=== PATIENT | female | born 1960 | race Caucasian/White ===

== ENCOUNTER 2021-01-06 15:46 | Outpatient (RCR) | payer OTHER, SELFPAY ==
[2021-01-06] MEDS: COVID-19 VACC, MRNA(PFIZER)/PF 30 MCG/0.3 ML SYRINGE IM (10:31)
[2021-01-27] MEDS: COVID-19 VACC, MRNA(PFIZER)/PF 30 MCG/0.3 ML SYRINGE IM (10:30)
== END 2021-03-31 23:59 ==
LOC: IMMUN 15:46
PROVIDERS: PCP Family Medicine; Visit Provider Family Medicine
DX: Z23 Encounter for immunization (principal)
CPT/HCPCS: 0001A; 0002A; 91300

== ENCOUNTER → 2024-08-02 | Outpatient (CLI) | payer MEDICARE, SELFPAY ==
--- NOTE | 2024-08-02 08:04 | MRI_ITS ---
STUDY: MRI BRAIN WITH AND WITHOUT CONTRAST (ATTENTION INTERNAL AUDITORY CANALS - I.A.C.''s) REASON FOR EXAM: Female, 64 years old. HEARING LOSS IAC TECHNIQUE: Standardized multiplanar fat and water weighted pulse sequences were obtained. ml of 15cc clariscan contrast material was administered intravenously for the contrast portion of the examination. COMPARISON: None. FINDINGS: Internal auditory canal findings: Normal bilateral temporal bones. Normal bilateral internal auditory canals. There is no demonstrated intracanalicular or cisternal vestibular schwannoma (acoustic neuroma). There is no enhancement of the bilateral VIIth or VIIIth cranial nerves. Normal bilateral cochlea, vestibules and semicircular canals. No demonstrated perilymphatic fistula. No mastoid air cell opacification is present. No cerebellar pontine angle mass or cyst is seen. There is no demonstrated lesions of the cavernous sinus. No nodularity or abnormal enhancement is seen in the 7th or 8th cranial nerves within IACs. No demonstrated Mondini''s malformation. BRAIN FINDINGS: Normal size of the ventricles and extra-axial spaces for the patient''s age. Normal white matter tracts of the supratentorial brain. Normal T2* images of the brain without demonstrated susceptibility artifact. There is no demonstrated hemosiderin stain. There is no evidence for recent intracranial ischemia or other cause of cytotoxic edema on diffusion weighted imaging (DWI). There are no demyelinating plagues of the supratentorial brain, brainstem or cerebellum. There are no findings suspicious for multiple sclerosis (MS). No hydrocephalus or midline shift is present. There are no visualized ring-enhancing lesions of the brain parenchyma or abnormal thickening or enhancement of the meninges or dura. Normal bilateral basal ganglia. Normal thalami. Normal flow voids within the major intracranial circulation suggesting patency by spin echo criteria. Normal venous enhancement. There is no enhancing intra-axial or extra-axial abnormality. There is no extra-axial fluid accumulation. Normal sella turcica, pituitary gland, infundibular stalk, optic chiasm and hypothalamus. Normal tectal plate and pineal gland. Normal midbrain, becka and medulla. Normal cerebellum. Normal basal cisterns. No demonstrated orbital abnormality, within the constraints of a routine brain study. Normal visualized paranasal sinuses. Normal calvarium and skull base. Normal visualized soft tissue structures. Normal visualized upper cervical spine. MRI/Brain W/WO Contrast IMPRESSION: 1. Normal unenhanced and enhanced MRI of the bilateral internal auditory canals (I.A.C''s). 2. Normal enhanced MRI of the brain. Electronically Signed: Benjy Cornell MD at 9:33 EDT ,
[2024-08-02 08:30] LABS: CREATININE FINGERSTICK 1.2 mg/dL (0.55-1.02)
== END | disposition home or self-care (01) ==
PROVIDERS: PCP Family Medicine; Referring Provider Otolaryngology; Visit Provider Otolaryngology
DX: H90.3 Sensorineural hearing loss, bilateral (principal)
CPT/HCPCS: 70553; A9575

== ENCOUNTER 2024-10-09 15:12 | Inpatient (IN) | payer MEDICARE, SELFPAY ==
[2024-10-09] VITALS (20 sets, daily range): BP systolic 118–143; BP diastolic 61–115; PULSE 64–78; RESP 13–22; TEMP 36.6–36.7; O2SAT 77–100; BMI 26.9; BMI 26.2
[2024-10-09] MEDS: TICAGRELOR 90 MG TABLET 180 MG PO (15:13)
--- NOTE | 2024-10-09 15:14 | EKG12_ITS ---
Test Reason : STEMI Blood Pressure : */* mmHG Vent. Rate : 70 BPM Atrial Rate : 70 BPM P-R Int : 156 ms QRS Dur : 60 ms QT Int : 370 ms P-R-T Axes : 38 55 34 degrees QTcB Int : 399 ms Critical Test Result: STEMI Sinus rhythm with occasional Premature ventricular complexes ST elevation consider anterolateral injury or acute infarct ACUTE MS / STEMI Abnormal ECG Confirmed by MILEY WADSWORTH, RUTH ANN ([id number]), editor index LISETTE PINEDA ([id number]) on 10/11/2024 10:46:27 AM Referred By: Adan Galindo Confirmed By: RUTH ANN TRENT MD
[2024-10-09] MEDS: Heparin Injection (Vial) 5,000 UNIT/ML VIAL 5000 UNIT IV (15:15)
--- NOTE | 2024-10-09 15:15 | EDS_ITS ---
HPI History of Present Illness Chief Complaint: Chest Pain Detail of Chief Complaint: Initially indigestion followed by chest pain without radiation Informant: patient Onset/Context/Timing Onset: Today and Hours Activity at onset: sudden and activity on onset Timing: Continuous Quality: Positive for Pressure Location: Substernal Current Severity: Moderate Maximum Severity: Severe Worsened By: Exertion Relieved By: Nothing Associated Symptoms: Positive for Nausea, Vomiting and Diaphoresis; Negative for Cough, Fever, Lightheadedness, Acid Reflux or Palpitations Narrative Narrative: Patient is a 64-year-old woman. She is on no medication. She has no past medical history. She has allergy to penicillin and sulfa. She states she was shopping. She developed indigestion followed by chest tightness pressure with nausea, vomiting, diaphoresis and she is short of breath. Prehospital EKG revealed hyperacute T waves consistent with acute CT. Prior Similar Symptoms: No CVD Risk Factors: Negative for Hypertension, Diabetes, Hypercholesterolemia, Family History 1' </=55 or Smoking PE Risk Factors: Negative for Recent Travel/Surgery, Recent Immobilization, Prior DVT or PE, Cancer or OCP + Smoking + >/=35 TAD Risk Factors: Negative for Marfan's Syndrome, Hypertension or Family History PFSH PFSH Medical History no medical history no medical history Allergy/AdvReac Type Severity Reaction Status Date / Time Penicillins Allergy Hives Verified 10/09/24 15:17 Sulfa (Sulfonamide AdvReac Diarrhea Verified 10/09/24 15:17 Antibiotics) Family History no significant family his Surgical History no surgical history no surgical history Social History Smoking Status: Current some day smoker tobacco type: cigarettes ROS ROS ED Constitutional Constitutional ED: Denies chills, fever(s), subjective or sweats Eyes Eyes: Reports none Cardiovascular Cardiovascular: Reports as per HPI Respiratory/Chest Respiratory/Chest: Reports dyspnea and dyspnea on exertion Gastrointestinal Gastrointestinal: Reports abdominal pain, nausea and vomiting Neurologic Neurologic: Denies paresthesias or weakness Hematologic/Lymphatic Hematologic/Lymphatic: Denies easy bleeding or easy bruising Allergic/Immunologic Allergic/Immunologic ED: Denies mouth swelling or tongue swelling EXAM Physical Exam Const Positive well nourished and well developed Constitutional Narrative: Patient does not appear well. She appears dyspneic and she is pale. She is slightly diaphoretic. General Appearance ED: well developed and pallor; Negative for NAD HEENT Reports moist mucous membranes normocephalic and atraumatic Eyes PERRL and EOMs intact bilaterally General Eye ED: Negative for pale conjunctiva or scleral icterus Neck no lymphadenopathy, supple and no JVD Chest Wall inspection of chest normal Resp normal respiratory effort and clear to auscultation bilaterally Cardio regular rate, regular rhythm, S1 normal heart sound, S2 normal heart sound and no murmurs Peripheral Pulses: pulses 2+ throughout GI normal to inspection, nondistended, normoactive bowel sounds, soft to palpation, non-tender and non-distended; Negative for hepatosplenomegaly Back/Spine no CVA tenderness Extremity normal to inspection General Extremety ED: Negative for edema or pulses abnormal General Extremity: Negative for edema or pulses abnormal Neuro oriented x3 and CN's II-XII intact bilaterally Psych mental status grossly normal Skin no rashes or lesions noted and no wounds Skin Narrative: Diaphoresis General Skin Exam: pallor Heart Score History: Highly Suspicious Age: >/= 65 years Risk Factors: No Risk Factors Score: 4 MDM MDM MDM Narrative Medical decision making narrative: Patient's prehospital EKG reveals hyperacute T waves consistent with anterior/anterolateral injury pattern. STEMI alert was notified. Upon arrival patient received Brilinta and heparin. She received 4 baby aspirin and route by squad. EKG was obtained while awaiting for Research Group Director to be ready reveals acute ST elevation CT involving the anterolateral leads. Rate is 70. IL interval is 156 ms Rickers duration 60 ms. QT duration 370 ms. There is occasional premature ventricular beats noted. [place] is normal. Chest x-ray was not obtained prior to patient going to the Research Group Director. Appropriate labs were ordered. Results are pending. Management Discussion w/another healthcare provider: Hospitalist (Hospitalist was made aware.) and Manager Facility (STEMI socially responsible investment adviser was made aware and images of EKGs were sent.) Treatment and Re-Evaluation :: Heparin, Brilinta in ER and aspirin prehospital Critical Care Time Critical Care Time: Yes Critical care time (excluding procedures): 30-74 minutes (12 minutes), Including time spent: (History, physical, documentation, analysis of prehospital EKG, activation of STEMI team, discussion with socially responsible investment adviser), Discussing w/Patient &/or Family/Igniter Assembler, Discussing w/Consultants and Arranging Admission or Transfer Discharge Plan Triage Chief Complaint: Chest Pain ED Provider: Sanchez,Piyush Dx/Rx/DC Orders Clinical Impression: Acute ST elevation myocardial infarction (STEMI) of anterolateral wall, Elevate d blood-pressure reading without diagnosis of hypertension Primary Care Provider: Latrell Del Rio Referrals: Latrell Del Rio MD [Primary Care Provider] - Print Language: Frisian Disposition Disposition: Acute Care Hospital [facility]
[2024-10-09] MEDS: HYDROmorphone 1 MG/ML Syringe 0.5 MG IV (15:22)
[2024-10-09 15:30] LABS: Absolute Lymphocyte Count 4.61 X10^3/uL (0.83-4.51); Absolute Neutrophil Count 6.7 X10^3/uL (2.0-7.7); Basophil# 0.14 X10^3/uL; Basophil% 1.1 % (0-1); Eosinophils% 1.6 % (0-5); Hematocrit 44.8 % (37-47); Hemoglobin 15.1 g/dL (12.0-15.0); Lymphocyte # 4.61 X10^3/ul (0.83-4.51); Lymphocyte % 37.1 % (19-41); Mean Corp Hgb Conc 33.7 g/dL (32-36); Mean Corpuscular Hgb 31.5 pg (27.0-32.0); Mean Corpuscular Volume 93.5 fL (81-99); Mean Platelet Vol. 9.5 fl (6.2-12.0); Monocyte% 5.6 % (0-10); NRBC Flagged by Analyzer 0 % (0-5); Neutrophil # 6.74 X10^3/uL (2.7-7.7); Neutrophil % 54.3 % (47-70); Platelet Count 272 K/mm3 (150-450); RBC Distribution Width CV 13.2 % (11.6-14.6); RBC Distribution Width SD 45.1 fl (35.1-43.9); Red Blood Count 4.79 M/mm3 (4.2-5.4); White Blood Count 12.4 K/mm3 (4.4-11.0)
[2024-10-09 15:40] LABS: Partial Thromboplast Time 23.1 Seconds (24.1-36.2); Prothrombin Time (Protime)PT. 13.1 SECONDS (11.7-14.9)
[2024-10-09 15:53] LABS: Anion Gap 6 (5-15); BUN 18 mg/dL (7-18); BUN/Creat Ratio 14.4 RATIO (10-20); Calcium,Total 9.7 mg/dL (8.5-10.1); Chloride 106 mmol/L (98-107); Creatinine, Serum 1.25 mg/dL (0.55-1.02); EST Glomerular Filtration Rate 46 mL/min (>60); Est Glom Filt Rate - Afr Amer 55 mL/min (>60); Estimated Creatinine Clearance 47.64 ml/min; Glucose 136 mg/dL (74-106); Potassium 3.7 mmol/L (3.5-5.1); Sodium Level 139 mmol/L (136-145); Troponin-I HS 113 pg/mL (3.0-54.0)
--- NOTE | 2024-10-09 16:14 | CON.PCM.CA_ITS ---
Assessment & Plan Assessment/Plan (1) Acute ST elevation myocardial infarction (STEMI) of anterolateral wall: PLAN: Patient underwent drug-eluting stent to the LAD and PTCA of the proximal diagonal 1. We will keep the patient on aspirin, Brilinta, statin, beta- brandy. HPI Consult Data Date of Consult: 10/09/24 HPI Narrative Reason for Consultation: STEMI HPI Narrative: MIGUEL MATHIAS, is a 64 F who presents with chest pain, nausea, vomiting. EKG done outside the hospital was suspicious for anterolateral ST elevation MN and a STEMI alert was called. Patient was brought emergently to the cardiac Front End Driver and underwent coronary angiography which revealed 80% stenosis in the LAD and 95 to 99% stenosis in the proximal diagonal 1. Patient underwent drug-eluting stent placement to the LAD and PTCA of the diagonal 1. She is doing well at the end of the procedure. She is being admitted to the CCU for further management of the ST relation MN. PFSH Medical History no medical history Allergy/AdvReac Type Severity Reaction Status Date / Time Penicillins Allergy Hives Verified 10/09/24 15:17 Sulfa (Sulfonamide AdvReac Diarrhea Verified 10/09/24 15:17 Antibiotics) Family History no significant family his Surgical History no surgical history Social History Smoking Status: Current some day smoker tobacco type: cigarettes Physical Exam Const alert and oriented x3 HEENT normocephalic Eyes no scleral icterus Resp normal respiratory effort Cardio regular rate Risk Stratification Risk Stratification Applicable: No Charges/Coding Visit Charges Inpatient E&M: 39168 Init Hosp L2 Objective Data Vital Signs: Vital Signs Temp Pulse Resp BP Pulse Ox O2 Del Method 98 F 69 18 133/81 H 91 Room Air 10/09/24 15:27 10/09/24 15:27 10/09/24 15:27 10/09/24 15:27 10/09/24 15:27 10/09/24 15:17 Oxygen Delivery Method Room Air Weight: 171 lb 15.369 oz Body Mass Index (BMI) 26.9 Intake & Output: Intake and Output for Last 24 Hours 10/07/24 10/08/24 10/09/24 23:59 23:59 23:59 Intake Total 0 / 0 Balance 0 / 0 Lab / Micro Data 10/09/24 15:10 10/09/24 15:10 Labs: Laboratory Results - last 24 hr 10/09/24 15:10: WBC 12.4 H, RBC 4.79, Hgb 15.1 H, Hct 44.8, MCV 93.5, MCH 31.5, MCHC 33.7, RDW Std Deviation 45.1 H, RDW Coeff of Gerber 13.2, Plt Count 272, MPV 9.5, Immature Gran % (Auto) 0.300, Neut % (Auto) 54.3, Lymph % (Auto) 37.1, Duval % (Auto) 5.6, Eos % (Auto) 1.6, Baso % (Auto) 1.1 H, Absolute Neuts (auto) 6.7, Absolute Lymphs (auto) 4.61 H, Nucleated RBC % 0, PT 13.1, INR 1.0, APTT 23.1 L, Sodium 139, Potassium 3.7, Chloride 106, Carbon Dioxide 26.0, Anion Gap 6, BUN 18, Creatinine 1.25 H, Estim Creat Clear Calc 47.64, Est GFR (MDRD) Af Amer 55 L , Est GFR (MDRD) Non-Af 46 L, BUN/Creatinine Ratio 14.4, Glucose 136 H, Calcium 9.7, Troponin I High Sens 113 H Cardiology Labs/Tests 10/09/24 15:10: WBC 12.4 H, RBC 4.79, Hgb 15.1 H, Hct 44.8, MCV 93.5, MCH 31.5, MCHC 33.7, Plt Count 272, MPV 9.5, Immature Gran % (Auto) 0.300, Neut % (Auto) 54.3, Lymph % (Auto) 37.1, Duval % (Auto) 5.6, Eos % (Auto) 1.6, Baso % (Auto) 1.1 H, Absolute Neuts (auto) 6.7, Nucleated RBC % 0, PT 13.1, INR 1.0, APTT 23.1 L, Sodium 139, Potassium 3.7, Chloride 106, Carbon Dioxide 26.0, Anion Gap 6, BUN 18, Creatinine 1.25 H, Est GFR (MDRD) Af Amer 55 L, Est GFR (MDRD) Non-Af 46 L, BUN/Creatinine Ratio 14.4, Glucose 136 H, Calcium 9.7 Rhythm: EKG: ECHO: Stress Test: Cardiac Cath: PCI: CT Surgery: Holter monitor: EPS: PPM: CXR: Chest CT Scan:
--- NOTE | 2024-10-09 16:15 | CHAPLAIN ---
Type of Pastoral Visit ___ Initial Visit ___ Follow-up Visit ___ On-call Visit ___ General Patient Visit ___ Spiritual Assessment ___ Family Conference ___ Bereavement _x__ Rapid Response ___ Code Blue ___ Other (describe below) Pastoral Care Referral From ___ Patient ___ Family ___ Nurse ___ Physician ___ System Support Developer ___ Supervisor Hanging And Trimming _x__ Other (describe below) Sacrament/Intervention _x__ Active listening ___ Anointing ___ Jewish ___ Bereavement ___ Communion ___ Kelsey exploration ___ _x__ Life review ___ Prayer ___ Reconciliation ___ Sacrament of Sick _x__ Supportive presence ___ Wedding ___ Other (describe below) Pastoral Comments patient came by squad and was a stemi alert; attended to the situation in the ED and patient was being readied for the laboratory inspector; this sheet metal duct installer waited for the spouse to come into the ED and when he did this sheet metal duct installer escorted spouse to the waiting room in the laboratory inspector; sat with the spouse and listened to his stories of his own experience with heart attack and other family members as well; offered time to talk, beverages, supportive presence, and to meeting needs
--- NOTE | 2024-10-09 16:30 | EKG12_ITS ---
Test Reason : AM EKG Blood Pressure : */* mmHG Vent. Rate : 75 BPM Atrial Rate : 75 BPM P-R Int : 152 ms QRS Dur : 68 ms QT Int : 406 ms P-R-T Axes : 42 73 77 degrees QTcB Int : 453 ms Normal sinus rhythm Normal ECG When compared with ECG of 09-Oct-2024 16:41, MANUAL COMPARISON REQUIRED DATA IS UNCONFIRMED Confirmed by MILEY WADSWORTH, RUTH ANN ([id number]), slot editor LISETTE PINEDA ([id number]) on 10/11/2024 6:01:19 AM Referred By: Adan Galindo Confirmed By: RUTH ANN TRENT MD
--- NOTE | 2024-10-09 16:35 | HP.PCM.HOS_ITS ---
HPI - General General Date of Admission: 10/09/24 Date of Service: 10/09/24 Chief Complaint: Chest pain HPI Narrative MIGUEL MATHIAS, is a 64-year-old female with history of tobacco use presented [facility] ED 10/09/2024 as a STEMI alert. She initially had indigestion while she was shopping which then became chest pain without radiation, additionally had nausea and diaphoresis as well as shortness of breath. Prehospital EKG showed hyperacute T waves consistent with acute [place]. Patient taken to [facility] emergently and had FREDDIE to LAD and PTCA to proximal diagonal1. Hospitalist contacted for admission and patient seen at bedside post cath. She reports that she was out shopping earlier and developed the indigestion and then the chest pain, also then became diaphoretic and nauseous prompting her to call EMS. Symptoms resolved post catheterization and intervention and she has no present complaints. [facility] Medical History (Updated 10/09/24 @ 16:59 by Pam Moya) Myocardial infarct Medical History no medical history Home Medications ?Medication ?Instructions ?Recorded ?Last Taken ?Type NK 10/09/24 Unknown History Allergy/AdvReac Type Severity Reaction Status Date / Time Penicillins Allergy Hives Verified 10/09/24 15:17 Sulfa (Sulfonamide AdvReac Diarrhea Verified 10/09/24 15:17 Antibiotics) Family History no significant family his Surgical History no surgical history Social History (Updated 10/09/24 @ 16:59 by Pam Moya) Smoking Status: Current some day smoker tobacco type: cigarettes ROS ROS Narrative General: Denies fever/chills HENT: Denies headache, denies stuffy nose, denies sore throat EYES: Denies changes in vision Resp: Denies cough, denies shortness of breath Cardiac: Denies chest pain GI: Denies abdominal pain, denies changes in bowel, denies nausea/vomiting : Denies changes in urination Extremity: Denies swelling MSK: Denies weakness Neuro: Denies any numbness/tingling Heme: Denies any bleeding or bruising Skin: Denies rashes Psychiatric: No complaints voiced Vital Signs Vital Signs Vital Signs: 10/09/24 15:12 10/09/24 15:17 10/09/24 15:17 Temperature 97.9 F Temperature Source Temporal Pulse Rate 69 Respiratory Rate 16 Respiratory Effort Short of Breath Blood Pressure 138/88 H Blood Pressure Mean 104 Pulse Ox 91 91 Oxygen Delivery Method Room Air Room Air 10/09/24 15:27 Temperature 98 F Temperature Source Pulse Rate 69 Respiratory Rate 18 Respiratory Effort Blood Pressure 133/81 H Blood Pressure Mean 98 Pulse Ox 91 Oxygen Delivery Method Weight Weight: 78 kg Body Mass Index (BMI) 26.9 Physical Exam Narrative General: Alert, oriented, no apparent distress HEENT: Atraumatic, normocephalic Eyes: Anicteric, normal conjunctiva, extraocular movements grossly intact Neck: Supple Respiratory: Clear to auscultation bilaterally, normal respiratory effort Cardiovascular: Regular rate and rhythm GI: Soft, nontender, nondistended Extremities: No edema Musculoskeletal: Moving all extremities Neuro: No overt focal neurological deficits Skin: No rashes appreciated Psych: Cooperative Results Lab / Micro Data 10/09/24 15:10 10/09/24 15:10 Labs: Laboratory Results - last 24 hr 10/09/24 15:10: WBC 12.4 H, RBC 4.79, Hgb 15.1 H, Hct 44.8, MCV 93.5, MCH 31.5, MCHC 33.7, RDW Std Deviation 45.1 H, RDW Coeff of Gerber 13.2, Plt Count 272, MPV 9.5, Immature Gran % (Auto) 0.300, Neut % (Auto) 54.3, Lymph % (Auto) 37.1, [place] % (Auto) 5.6, Eos % (Auto) 1.6, Baso % (Auto) 1.1 H, Absolute Neuts (auto) 6.7, Absolute Lymphs (auto) 4.61 H, Nucleated RBC % 0, PT 13.1, INR 1.0, APTT 23.1 L, Sodium 139, Potassium 3.7, Chloride 106, Carbon Dioxide 26.0, Anion Gap 6, BUN 18, Creatinine 1.25 H, Estim Creat Clear Calc 47.64, Est GFR (MDRD) Af Amer 55 L , Est GFR (MDRD) Non-Af 46 L, BUN/Creatinine Ratio 14.4, Glucose 136 H, Calcium 9.7, Troponin I High Sens 113 H Assessment & Plan Assessment/Plan (1) Acute ST elevation myocardial infarction (STEMI) of anterolateral wall: PLAN: Plan # Acute STEMI -Taken to [facility] emergently -Patient underwent FREDDIE to LAD and PTCA of the proximal diagonal 1 -Continue aspirin, Brilinta, statin, beta-brandy -A.m. lipid panel -Cardiology consult, patient already seen and she was taken emergently to [facility] -Echocardiogram ordered #CAD s/p stenting -As above #Tobacco use -Advise cessation and discussed importance of cessation given patient's coronary artery disease/heart attack -Patient does not want nicotine replacement this time #DVT ppx: Lovenox subcu Tawanna Holder MD Charges/Coding Visit Charges Inpatient E&M: 51120 Init Hosp L1
[2024-10-09] MEDS: 0.9% Normal Saline (1000mL) 1,000 ML 50 ML IV (17:00)
[2024-10-09] MEDS: Ondansetron 4 MG/2 ML Vial IV (18:07)
[2024-10-09 18:18] LABS: Troponin-I HS 1100 pg/mL (3.0-54.0)
[2024-10-09] MEDS: Atorvastatin Calcium 40 MG Tablet PO (20:12)
[2024-10-09] MEDS: Metoprolol Tartrate 25 MG Tablet PO (20:12)
[2024-10-10] VITALS (19 sets, daily range): BP systolic 91–130; BP diastolic 47–68; PULSE 54–81; RESP 12–18; TEMP 36.5–36.7; O2SAT 94–97; BMI 26.8
[2024-10-10 04:39] LABS: Hematocrit 39.8 % (37-47); Hemoglobin 13.6 g/dL (12.0-15.0); Mean Corp Hgb Conc 34.2 g/dL (32-36); Mean Corpuscular Hgb 31.6 pg (27.0-32.0); Mean Corpuscular Volume 92.3 fL (81-99); Mean Platelet Vol. 9.4 fl (6.2-12.0); Platelet Count 215 K/mm3 (150-450); RBC Distribution Width CV 13.2 % (11.6-14.6); RBC Distribution Width SD 45.1 fl (35.1-43.9); Red Blood Count 4.31 M/mm3 (4.2-5.4); White Blood Count 11.7 K/mm3 (4.4-11.0)
[2024-10-10 05:07] LABS: ALB/GLOB Ratio 0.9 RATIO (0.9-2.4); AST(SGOT) 21 U/L (15-37); Alanine Aminotransfer ALT/SGPT 16 U/L (13-56); Albumin, Serum 3.2 g/dL (3.2-5.0); Alkaline Phosphatase 60 U/L (45-117); Anion Gap 6 (5-15); BUN 16 mg/dL (7-18); BUN/Creat Ratio 15.7 RATIO (10-20); Calcium,Total 8.9 mg/dL (8.5-10.1); Chloride 109 mmol/L (98-107); Cholesterol 226 mg/dL (200); Creatinine, Serum 1.02 mg/dL (0.55-1.02); EST Glomerular Filtration Rate 58 mL/min (>60); Est Glom Filt Rate - Afr Amer 70 mL/min (>60); Estimated Creatinine Clearance 58.27 ml/min; Globulin 3.4 g/dL (2.2-4.2); Glucose 100 mg/dL (74-106); High Density Lipoprotein 37 mg/dL; Protein, Total 6.6 g/dL (6.4-8.2); Sodium Level 138 mmol/L (136-145); Triglycerides 146 mg/dL; Very Low Density Lipoprotein 29 mg/dL (5-40)
--- NOTE | 2024-10-10 05:55 | ECHOD_ITS ---
Reason For Study: S/P HI Procedure This was a 2D Doppler, Color Flow transthoracic echocardiogram. Exam performed portable in ICU/CCU. Left Ventricle Normal LV size. The left ventricular ejection fraction is 50 %. Mild segmental systolic dysfunction (see wall motion). Stage 1 diastolic dysfunction. Mid-Anterior : Severely Hypokinetic. [place] : Severely Hypokinetic. There are regional wall motion abnormalities as specified. Right Ventricle Normal RV size. Normal systolic function. Atria Normal left atrium. Normal right atrium. Mitral Valve Normal mitral valve. Tricuspid Valve Normal tricuspid valve. Aortic Valve Normal aortic valve. Pulmonic Valve Normal pulmonic valve. Great Vessels Normal aortic root. The pulmonary artery is normal size. Inferior vena cava collapse with respiration. Pericardium/Pleural No pericardial effusion. MMode/2D Measurements & Calculations LVIDd: 4.1 cm IVSd: 1.00 cm Ao root diam: 3.0 cm LVIDs: 2.8 cm LVPWd: 1.0 cm RVDd: 3.0 cm FS: 30.4 % LAV(MOD-bp): 18.6 ml LVAd ap4: 21.8 cm2 SV(MOD-sp4): 32.8 ml LAV(MOD-bp) Indexed: 9.8 ml/m2 LVLd ap4: 7.3 cm SI(MOD-sp4): 17.4 ml/m2 LAV(MOD-sp2): 17.6 ml EDV(MOD-sp4): 53.7 ml LAV(MOD-sp4): 17.5 ml EDV(sp4-el): 55.3 ml LVAs ap4: 12.7 cm2 LVLs ap4: 6.3 cm ESV(MOD-sp4): 20.9 ml ESV(sp4-el): 21.7 ml EF(MOD-sp4): 61.1 % EF(sp4-el): 60.8 % SV(sp4-el): 33.6 ml LA A4 area: 9.5 cm2 LA dimension(2D): 2.5 cm RA A4 area: 9.9 cm2 TAPSE: 2.2 cm Time Measurements MV dec time: 0.20 sec Doppler Measurements & Calculations MV E max osman: 54.6 cm/sec Lat Peak E' Osman: 10.7 cm/sec Med Peak E' Osman: 8.7 cm/sec MV A max osman: 68.9 cm/sec E/E' lat: 5.1 E/E' med: 6.3 MV E/A: 0.79 Ao V2 max: 136.1 cm/sec LV V1 max: 112.8 cm/sec PA V2 max: 78.9 cm/sec Ao max P.4 mmHg LV V1 max P.1 mmHg ECHO/Echo Complete Interpretation Summary The left ventricular ejection fraction is 50 %. Normal LV size. Mild segmental systolic dysfunction (see wall motion). Stage 1 diastolic dysfunction. Ordering Physician: Tawanna Holder Referring Physician: JT BROCK Performed By: Denise Gamez RDCS
--- NOTE | 2024-10-10 07:59 | CRPHASE1_ITS ---
Patient Communication Patient Information Former Patient:: Phase I PHII Cardiac Rehab Discussed with Patient:: Yes Guide to Cardiac Rehab Given to Patient:: Yes Cardiac Rehab Facility Choice List Given to Patient:: Yes Communication to Cardiac Rehab Sessions:: 36 sessions - 3 days/wk, 12 weeks Cardiac Rehabilitation Info Program Information Cardiac Rehabilitation Program Information: Cardiac Rehab The cardiac rehab team at [facility] consists of highly skilled exercise physiologists, nurses, respiratory therapists and physicians working together with you. Our purpose is to help you have a full recovery and achieve the goals you set for yourself. Over the years many of our patients have returned to activities they assumed they would never do again! We can help restore your confidence and motivation to make lifestyle changes that can have a significant impact on your health and quality of life! We can help answer questions and concerns you may have about exercise, lifestyle, medications, diet, stress and anxiety which are common following a hospitalization. WE monitor ECG and vital signs during exercise and discuss your progress with you and report to your physician(s). Cardiac Rehab is proven to help reduce readmissions, improve functional capacity and lower recurrence of problems with your heart. Our Cardiac Rehab program is Certified by the [place] Association of Cardio-Vascular and Pulmonary Rehabilitation (AACVPR) and Accredited by the [place] [employer] of [employer] through our [facility]. You can contact us at . We invite you to call us with your questions or to get started in our program. If you have other questions or concerns be sure to ask your physician/provider during your follow-up visit. WE look forward to seeing you!
--- NOTE | 2024-10-10 08:00 | CRPH1.INST_ITS ---
General Education Discussed with Patient CAD and cardiac anatomy and function:: Patient communicates acknowledgment Explanation of diagnoses and procedures:: Patient communicates acknowledgment Sign/Symptoms of ME:: Patient communicates acknowledgment Antiplatelet therapy: Patient communicates acknowledgment Proper use of NTG-SL: Patient communicates acknowledgment Emergency procedures and activation of EMS: Patient communicates acknowledgment Compliance of all prescribed medications: Patient communicates acknowledgment Smoking Risk Factors Patient Nicotine/Smoking Risk Factors Are:: Cigarettes Recommendations Recommendations Include:: Smoking cessation strategies/Smoking packet, Second- hand smoke recommendation and Participation in a smoking cessation program Response Code Nicotine/Smoking Response Code:: Patient communicates acknowledgment Dyslipidemia Risk Factors Patient Dyslipidemia Risk Factors Are:: Total Cholesterol, Triglycerides, HDL and LDL Recommendations Recommendations Include:: Lipid profile not available, Reviewed NCEP/ATP guidelines and Therapeutic Lifestyle Change dietary guidelines Response Code Dyslipidemia Response Code:: Patient communicates acknowledgment Overweight/Obesity Risk Factors Patient Overweight/Obesity Risk Factors Are:: Overweight = 26-29 Recommendations Recommendations Include:: Weight loss of 5-10%, Reduced calorie diet and Exercise 5-7 times/week Response Code Overweight/Obesity:: Patient communicates acknowledgment Hypertension Recommendations Recommendations Include:: Maintain BP <130/85, DASH dietary guidelines, Decrease/maintain normal body weight and Moderation of ETOH Response Code Hypertension:: Patient communicates acknowledgment Heart Disease Risk Factors Patient Heart Disease Risk Factors Are:: Family history of heart disease < 65 years old Recommendations Recommendations Include:: Educated family members of their risk and Educated family members of importance of prevention of heart disease Response Code Heart Disease Response Code:: Patient communicates acknowledgment Diabetes Risk Factors Patient Diabetes Risk Factors Are:: No documented hx of diabetes Recommendations Recommendations Include:: Decrease/maintain body weight Response Code Diabetes:: Patient communicates acknowledgment Metabolic Syndrome Risk Factors Patient Metabolic Syndrome Risk Factors Are [3 of 5]:: Low HDL <40 [male] or < 50 [female] Recommendations Recommendations Include:: Does not meet criteria Response Code Metabolic Syndrome Response Code:: Patient communicates acknowledgment Sedentary Risk Factors Patient Sedentary Risk Factors Are:: Lack of regular exercise Recommendations Recommendations Include:: Aerobic exercise 5-7 times/week for 20-30 minutes continuously, Benefits of regular exercise, Discussed home walking program and Monitored Outpatient Cardiac Rehab Response Code Sedentary Response Code:: Patient communicates acknowledgment Stress Risk Factors Patient Stress Risk Factors Are:: Patient denies stress as a risk factor Recommendations Recommendations Include:: Identification of stressors, and assessment of coping skills and Stress management techniques Response Code Stress Response Code:: Patient communicates acknowledgment
--- NOTE | 2024-10-10 08:50 | ECQM.STEMI ---
STEMI STEMI ED Door Time / Other REG STEMI EKG Time (1) Acute ST elevation myocardial infarction (STEMI) of anterolateral wall: Acute 10/09/24 15:12 Balloon/Aspiration Date-Time Date of Balloon/Aspiration:: 10/09/24 Time of Balloon/Aspiration:: 15:54
[2024-10-10] MEDS: TICAGRELOR 90 MG TABLET PO ×2 (08:55→21:14)
[2024-10-10] MEDS: Aspirin E.C. 81 MG Tablet PO (08:55)
--- NOTE | 2024-10-10 10:00 | EKG12_ITS ---
Test Reason : post pci am ekg Blood Pressure : */* mmHG Vent. Rate : 62 BPM Atrial Rate : 62 BPM P-R Int : 150 ms QRS Dur : 56 ms QT Int : 418 ms P-R-T Axes : 36 76 103 degrees QTcB Int : 424 ms Normal sinus rhythm ST & T wave abnormality, consider anterolateral ischemia Abnormal ECG When compared with ECG of 10-Oct-2024 05:23, MANUAL COMPARISON REQUIRED DATA IS UNCONFIRMED Confirmed by MILEY WADSWORTH, RUTH ANN ([id number]), news assignment editor LISETTE PINEDA ([id number]) on 10/11/2024 11:02:45 AM Referred By: Adan Galindo Confirmed By: RUTH ANN TRENT MD
--- NOTE | 2024-10-10 10:23 | CASEMGMT ---
NICOLA GARAY Assessment Face to Face with patient for initial transition planning/care coordination assessment. RN JARROD introduced self and role at [facility], pt voices understanding. Pt is A&Ox4 and is resting comfortably in bed and is calm. Care providers, pharmacy, and demographics verified. Admitting dx: Acute ST Elevation LACE Strata: 1 PCP: Florin Bailey Specialists: Denies. Cardio is currently consulted Preferred Pharmacy: [facility] Insurance: O [facility] Prescription Benefit: Yes LNOK: Haroon Long (H) Living Arrangements: Pt lives with her in a single story home with a basement and 3 step to enter ADLs/IADLs: Ind Transportation: Self, DME: [employer]. Denies further needs HHC/SNF: Denies history or needs Pt?s goal: Return home once medically ready with pt Plan: Anticipate home no needs. Follow for new blood thinning Rx. At this time, the pt denies home needs including HH, OP Tx, or CNN. Pt states that she is independent and denies concerns. there is no 6-click score or therapy ordered at this time. CM to follow. Maryellen Laurent RN, CM
[2024-10-10 11:07] LABS: Magnesium 2.2 mg/dL (1.6-2.6)
--- NOTE | 2024-10-10 11:43 | PCM.PN.HOSP ---
Reason for Visit Reason for Visit: Diagnoses ST elevation (STEMI) myocardial infarction involving other coronary artery of anterior wall (10/09/24) Subjective Subjective Saw patient at bedside this morning. Patient was having her echocardiogram done when I saw her. Denied any acute pain or discomfort this morning. Denied any chest pain or shortness of breath. No other new concerns today. Objective Data Objective Data Vital Signs: Vital Signs Temp Pulse Resp BP Pulse Ox O2 Del Method 98.1 F 68 18 102/59 L 94 Room Air 10/10/24 03:00 10/10/24 11:00 10/10/24 11:00 10/10/24 11:00 10/10/24 11:00 10/10/24 11:00 Oxygen Delivery Method Room Air Weight: 77.7 kg Body Mass Index (BMI) 26.8 Intake & Output: Intake and Output for Last 24 Hours 10/08/24 10/09/24 10/10/24 23:59 23:59 23:59 Intake Total 120 / 120 Output Total 1000 / 1000 800 / 800 Balance -880 / -880 -800 / -800 Lab / Micro Data 10/10/24 04:30 10/10/24 04:30 Labs: Laboratory Results - last 24 hr 10/09/24 15:10: WBC 12.4 H, RBC 4.79, Hgb 15.1 H, Hct 44.8, MCV 93.5, MCH 31.5, MCHC 33.7, RDW Std Deviation 45.1 H, RDW Coeff of Gerber 13.2, Plt Count 272, MPV 9.5, Immature Gran % (Auto) 0.300, Neut % (Auto) 54.3, Lymph % (Auto) 37.1, Valley % (Auto) 5.6, Eos % (Auto) 1.6, Baso % (Auto) 1.1 H, Absolute Neuts (auto) 6.7, Absolute Lymphs (auto) 4.61 H, Nucleated RBC % 0, PT 13.1, INR 1.0, APTT 23.1 L, Sodium 139, Potassium 3.7, Chloride 106, Carbon Dioxide 26.0, Anion Gap 6, BUN 18, Creatinine 1.25 H, Estim Creat Clear Calc 47.64, Est GFR (MDRD) Af Amer 55 L, Est GFR (MDRD) Non-Af 46 L, BUN/Creatinine Ratio 14.4, Glucose 136 H, Calcium 9.7, Troponin I High Sens 113 H 10/09/24 17:20: Troponin I High Sens 1100 H* 10/10/24 04:30: WBC 11.7 H, RBC 4.31, Hgb 13.6, Hct 39.8, MCV 92.3, MCH 31.6, MCHC 34.2, RDW Std Deviation 45.1 H, RDW Coeff of Gerber 13.2, Plt Count 215, MPV 9.4, Sodium 138, Potassium 4.0, Chloride 109 H, Carbon Dioxide 24.0, Anion Gap 6, BUN 16, Creatinine 1.02, Estim Creat Clear Calc 58.27, Est GFR (MDRD) Af Amer 70, Est GFR (MDRD) Non-Af 58 L, BUN/Creatinine Ratio 15.7, Glucose 100, Calcium 8.9, Magnesium 2.2, Total Bilirubin 0.60, AST 21, ALT 16, Alkaline Phosphatase 60, Total Protein 6.6, Albumin 3.2, Globulin 3.4, Albumin/Globulin Ratio 0.9, Triglycerides 146, Cholesterol 226 H, LDL Cholesterol 160 H, VLDL Cholesterol 29, HDL Cholesterol 37 L, TSH 1.360 Physical Exam Const alert, oriented x3, no apparent distress and average body habitus Constitutional Narrative: Pleasant elderly female, sitting up comfortably in bed, conversing normally, no acute distress. General Appearance: cooperative and comfortable HEENT normocephalic, head/scalp atraumatic, hearing grossly normal bilaterally, nasal mucous membranes and turbinates normal and moist oral mucous membranes Eyes PERRL, EOMs intact bilaterally and conjunctivae normal Neck full ROM Chest inspection of chest normal Resp normal respiratory effort, normal air movement, no use of accessory muscles and clear to auscultation bilaterally Cardio regular rate, regular rhythm, no murmurs and peripheral pulses 2+ throughout GI normal to inspection, nondistended, normoactive bowel sounds, soft to palpation, non-tender and non-distended Back/Spine normal ROM Extremity normal to inspection, full ROM and no pedal edema Skin no rashes or lesions noted Psych mental status grossly normal Assessment & Plan Assessment/Plan (1) Acute ST elevation myocardial infarction (STEMI) of anterolateral wall: PLAN: Plan Patient is a 64-year-old female who presented [facility] ED on 10/09/2024 with chest pain. 1. Acute STEMI with resultant mildly reduced EF ? Cardiology following. Underwent emergent left heart cath with FREDDIE x 1 to the LAD and PTCA of the proximal diagonal 1 branch. Echo 10/10 showed EF 50%, stage I diastolic dysfunction, severely hypokinetic mid anterior and apex segments, otherwise no other abnormalities. Continue aspirin, Brilinta, high intensity statin and Lopressor. Will add CT inhibitor as able per cardiology recommendations. Continue cardiac monitoring. Stable for transfer to PCU on 10/10. 2. Tobacco use ? Advised smoking cessation on discharge and discussed importance of cessation given her acute STEMI. Denied need for nicotine replacement therapy while inpatient. DVT prophylaxis: Lovenox CODE STATUS: Full code, unverified Expected disposition: Home, 1 to 2 days Total clinical time spent by myself addressing the patient's medical issues, reviewing all the data, and collaborating with patient's care team: 35 minutes. Charges/Coding Visit Charges Inpatient E&M: 01414 Subs Hosp L2
[2024-10-10] MEDS: Enoxaparin 40 MG/0.4 ML Syringe SC (12:42)
[2024-10-10] MEDS: Metoprolol Tartrate 25 MG Tablet 12.5 MG PO ×2 (12:52→21:14)
--- NOTE | 2024-10-10 13:01 | CL.I_ITS ---
Patient Name: MIGUEL MATHIAS Study Date: 10/09/2024 Performing: Titus Galindo MD Ht: 67 inches 170.18 cm : 1960 Wt: 171.96 lbs 78 kg Age: 64 Gender: female BSA: 1.9 PROCEDURE(S) PERFORMED DC02-(90554)LHC/COR IC07-([id number])AMI, BMS AND/OR PTCA ARTERY OR GRAFT SINGLE VESSEL IC02-(69822)PTCA, EACH ADD'L CORONARY ART, SAME MAJOR CLINICAL PROFILE AND CO-MORBIDITIES Indications: ACS <= 24 hrs, Anterolateral STEMI Heart Failure: None CONCLUSIONS CAD as described. Successful drug-eluting stent placement to the proximal LAD and PTCA alone to the proximal diagonal 1. RECOMMENDATIONS DESCRIPTION OF PROCEDURE The patient arrived to the procedure lab. The risks and benefits of the procedure as well as a full description of our services here and lack of surgical backup were fully explained to the patient and/or their significant other prior to the catheterization. The Timeout was completed, verifying the correct patient and procedure. The patient's procedural site was prepped and draped in the usual fashion. Local anesthetic was given subcutaneously to right radial region with Lidocaine 2%. Using a modified Seldinger technique, arterial access was obtained via the right radial artery, a 6Fr sheath was inserted.. Left Coronary Artery selective angiography was performed in multiple views using a 5 Fr. JL3.5 catheter. Right Coronary Artery selective angiography was then performed in multiple views using a 5 Fr. JR 4 catheter XB 3.0 Guide catheter was inserted and engaged into the LCA. Runthrough Guide wire was inserted as a angelica wire Emerge 2.00x15 Balloon catheter was inserted. PTCA balloon inflated at 8 atms for 8 secs. Balloon catheter was repositioned to additional lesion in the LAD, proximal. PTCA balloon inflated at 8 atms for 8 secs. PTCA balloon inflated at 8 atms for 11 secs. PTCA balloon inflated at 10 atms for 8 secs. Angiogram performed post balloon dilatation. [place] 2.75x18 Drug Eluting stent was inserted. Angiogram performed post stent deployment. The arterial sheath was pulled and a TR Band was applied for hemostasis w/16ml air CORONARY ANGIOGRAPHY DOMINANCE: Right Dominant LEFT MAIN: Mild luminal irregularities LEFT ANTERIOR DESCENDING ARTERY: PROX LAD: 80 % Stenosis MID LAD: 40 % Stenosis DIAGONAL 1: Proximal - 99 % Stenosis CIRCUMFLEX ARTERY: Mild diffuse disease RIGHT CORONARY ARTERY: OSTIAL RCA: 30-40 % Stenosis PROX RCA: Mild luminal irregularities INTERVENTION INFORMATION LESION SITE: LAD (Proximal) Lesion Complexity: High/C, chronic total occlusion: No, lesion at bifurcation: Yes, thrombus present: No, lesion length: 15 mm, culprit lesion: Yes, Previously treated lesion: No Pre Stenosis: 80 % Pre intervention MYESHA flow: 3 PROCEDURE: Drug Eluting Stent with pre dilatation. Post Stenosis: 0 % Post intervention MYESHA flow: 3 Lesion Devices: Cordis 6 Fr XB3.0 100cm Guide Catheter Terumo .014 180cm Runthrough Extra Floppy straight Darius Sci EMERGE MR 2.00x15 BALLOON Medtronic 2.75 x 18 ANTONIA FRONTIER FREDDIE LESION SITE: 1st Diagonal (Proximal) Lesion Complexity: High/C, chronic total occlusion: No, lesion at bifurcation: Yes, thrombus present: No, lesion length: 15 mm, culprit lesion: Yes, Previously treated lesion: No Pre Stenosis: 99 % PROCEDURE: Balloon Angioplasty PTCA was performed with a 2.0 balloon Post Stenosis: 40 % Lesion Devices: Millard .014 190cm [employer] [place] Straight COMPLICATIONS No Complications PROCEDURE MEDICATIONS Oxygen: 2 L/min via nasal cannula Brilinta 180 mg PO @ 10/09/2024 16:28:46 SUMMARY OF HEMODYNAMIC DATA Time AIR REST ECG 15:28:36 AO 132/78 (102) SA 15:41:53 Signed By Titus Galindo MD On 10/10/2024 13:00:52 Titus Galindo MD
[2024-10-10] MEDS: Atorvastatin Calcium 40 MG Tablet PO (21:14)
[2024-10-11 03:00] VITALS: PULSE 56
[2024-10-11 04:00] VITALS: BP 120/72; PULSE 70; RESP 14; TEMP 36.4; O2SAT 96
[2024-10-11 05:39] VITALS: BMI 26.9
[2024-10-11 07:24] LABS: Hematocrit 42.5 % (37-47); Hemoglobin 14.2 g/dL (12.0-15.0); Mean Corp Hgb Conc 33.4 g/dL (32-36); Mean Corpuscular Volume 92.8 fL (81-99); Mean Platelet Vol. 9.7 fl (6.2-12.0); Platelet Count 224 K/mm3 (150-450); RBC Distribution Width CV 13.2 % (11.6-14.6); RBC Distribution Width SD 44.4 fl (35.1-43.9); Red Blood Count 4.58 M/mm3 (4.2-5.4); White Blood Count 9.9 K/mm3 (4.4-11.0)
[2024-10-11 07:35] VITALS: O2SAT 97
[2024-10-11 07:54] LABS: Anion Gap 5 (5-15); BUN 22 mg/dL (7-18); BUN/Creat Ratio 19.6 RATIO (10-20); Chloride 110 mmol/L (98-107); Creatinine, Serum 1.12 mg/dL (0.55-1.02); EST Glomerular Filtration Rate 52 mL/min (>60); Est Glom Filt Rate - Afr Amer 63 mL/min (>60); Glucose 99 mg/dL (74-106); Potassium 4.1 mmol/L (3.5-5.1); Sodium Level 139 mmol/L (136-145)
[2024-10-11 08:00] VITALS: PULSE 71
--- NOTE | 2024-10-11 08:20 | PCM.PN.CARD ---
Subjective Subjective Patient seen and evaluated. Doing well with no complaints Objective Data Vital Signs: Vital Signs Temp Pulse Resp BP Pulse Ox O2 Del Method 97.5 F L 70 14 120/72 97 Room Air 10/11/24 04:00 10/11/24 04:00 10/11/24 04:00 10/11/24 04:00 10/11/24 07:35 10/11/24 07:35 Oxygen Delivery Method Room Air Weight: 172 lb 2.896 oz Body Mass Index (BMI) 26.9 Intake & Output: Intake and Output for Last 24 Hours 10/09/24 10/10/24 10/11/24 23:59 23:59 23:59 Intake Total 120 / 120 1483.33 / 1483.33 Output Total 1000 / 1000 1475 / 1475 Balance -880 / -880 8.33 / 8.33 Lab / Micro Data 10/11/24 07:06 10/11/24 07:06 Labs: Laboratory Results - last 24 hr 10/10/24 04:30: Magnesium 2.2 10/11/24 07:06: WBC 9.9, RBC 4.58, Hgb 14.2, Hct 42.5, MCV 92.8, MCH 31.0, MCHC 33.4, RDW Std Deviation 44.4 H, RDW Coeff of Gerber 13.2, Plt Count 224, MPV 9.7, Sodium 139, Potassium 4.1, Chloride 110 H, Carbon Dioxide 24.0, Anion Gap 5, BUN 22 H, Creatinine 1.12 H, Estim Creat Clear Calc 53.20, Est GFR (MDRD) Af Amer 63, Est GFR (MDRD) Non-Af 52 L, BUN/Creatinine Ratio 19.6, Glucose 99, Calcium 9.0 Cardiology Labs/Tests 10/10/24 04:30: Magnesium 2.2 10/11/24 07:06: WBC 9.9, RBC 4.58, Hgb 14.2, Hct 42.5, MCV 92.8, MCH 31.0, MCHC 33.4, Plt Count 224, MPV 9.7, Sodium 139, Potassium 4.1, Chloride 110 H, Carbon Dioxide 24.0, Anion Gap 5, BUN 22 H, Creatinine 1.12 H, Est GFR (MDRD) Af Amer 63, Est GFR (MDRD) Non-Af 52 L, BUN/Creatinine Ratio 19.6, Glucose 99, Calcium 9.0 Rhythm: EKG: ECHO: Stress Test: Cardiac Cath: PCI: CT Surgery: Holter monitor: EPS: PPM: CXR: Chest CT Scan: Radiography Diagnostic Testing: Radiology Impression Echocardiogram 10/10/24 05:55 Interpretation Summary The left ventricular ejection fraction is 50 %. Normal LV size. Mild segmental systolic dysfunction (see wall motion). Stage 1 diastolic dysfunction. Ordering Physician: Tawanna Holder Referring Physician: JT BROCK Performed By: Denise Gamez RDCS Physical Exam Const alert, oriented x3, no apparent distress and average body habitus Constitutional Narrative: Pleasant elderly female, sitting up comfortably in bed, conversing normally, no acute distress. General Appearance: cooperative and comfortable HEENT normocephalic, head/scalp atraumatic, hearing grossly normal bilaterally, nasal mucous membranes and turbinates normal and moist oral mucous membranes Eyes PERRL, EOMs intact bilaterally and conjunctivae normal Neck full ROM Chest inspection of chest normal Resp normal respiratory effort, normal air movement, no use of accessory muscles and clear to auscultation bilaterally Cardio regular rate, regular rhythm, no murmurs and peripheral pulses 2+ throughout GI normal to inspection, nondistended, normoactive bowel sounds, soft to palpation, non-tender and non-distended Back/Spine normal ROM Extremity normal to inspection, full ROM and no pedal edema Skin no rashes or lesions noted Psych mental status grossly normal Assessment & Plan Assessment/Plan (1) Acute ST elevation myocardial infarction (STEMI) of anterolateral wall: PLAN: Patient presented with an acute ST elevation myocardial infarction underwent coronary stenting and is doing quite well at this time. Will continue current medical therapy with cardiac rehabilitation. Smoking cessation has been emphasized. (2) History of coronary artery stent placement: PLAN: Patient is status post coronary stenting as noted above. Patient will be follow-up as an outpatient.
[2024-10-11 08:26] VITALS: BP 111/64; PULSE 70; RESP 18; TEMP 36.4; O2SAT 96
[2024-10-11 08:43] VITALS: PULSE 76
[2024-10-11] MEDS: TICAGRELOR 90 MG TABLET PO (08:43)
[2024-10-11] MEDS: Metoprolol Tartrate 25 MG Tablet 12.5 MG PO (08:43)
[2024-10-11] MEDS: Aspirin E.C. 81 MG Tablet PO (08:43)
--- NOTE | 2024-10-11 09:25 | DCINST_ITS ---
Discharge Instructions Diet Discharge Diet: No restrictions DC O2, CPAP, BIPAP needs Home O2 Discharge instructions: No Dressing / Incision Discharge Activity: No Restrictions Follow Up Care Test Results: Test results from this visit will be discussed in further detail at your follow- up appointment, if applicable. Discharge Plan Admission Admit Date/Time: 10/09/24 16:35 Primary Reason for Your Visit: chest pain Attending Provider: Kraig Feliz Primary Care Provider: Florin Bailey Consulting Providers: Tawanna Holder; Adan Galindo Instructions Additional Instructions / Restrictions: Please start taking all medications as noted below. Follow up in the cardiology office as instructed. Discharge Orders/Prescriptions Prescriptions: New atorvastatin 40 mg Tablet 40 mg PO QHS 90 Days Qty: 90 3RF aspirin 81 mg Tablet,Delayed Release (Dr/Ec) 81 mg PO DAILY@0800 90 Days Qty: 90 3RF Brilinta 90 mg Tablet 90 mg PO BID 90 Days Qty: 180 1RF metoprolol succinate [Toprol XL] 25 mg tablet extended release 24 hr 25 mg PO DAILY 30 Days Qty: 30 2RF lisinopril 2.5 mg tablet 2.5 mg PO DAILY 30 Days Qty: 30 2RF Referrals / Follow Up: Latrell Del Rio MD [Non-Staff] - Alfredito Saucedo MD [Med Staff - Active Staff] - Florin Bailey DO [Primary Care Provider] - Disposition Disposition (needs filled in before D/C Order can be placed): Home, Self Care
--- NOTE | 2024-10-11 09:28 | DS.PCM_ITS ---
Providers Date of Admission: 10/09/24 Date of Discharge: 10/11/24 Primary Care Physician: Dr. Jt Brock, Consultations 10/09/24 16:39 Consult: Cardiology Routine Consulting Provider: Adan Galindo Reason for Consult: Chest Pain EMERGENT Consult: No MD Notified: Yes Date Notified: 10/09/24 Time Notified: 16:39 Method of Notification: ED Physician Initiated Reason For Visit: ACUTE ST ELEVATION Diagnosis Discharge Diagnosis (1) Acute ST elevation myocardial infarction (STEMI) of anterolateral wall: Status: Acute Code(s): I21.09 - ST elevation (STEMI) myocardial infarction involving other coronary artery of anterior wall (2) History of coronary artery stent placement: Status: Acute Code(s): Z95.5 - Presence of coronary angioplasty implant and graft Medications at Discharge Home Medications aspirin 81 mg tablet,delayed release 81 mg PO DAILY@0800 90 days #90 tabs 10/11/24 atorvastatin 40 mg tablet 40 mg PO QHS 90 days #90 tabs 10/11/24 lisinopril 2.5 mg tablet 2.5 mg PO DAILY 30 days #30 tabs 10/11/24 metoprolol succinate 25 mg tablet,extended release 24 hr (Toprol XL) 25 mg PO DAILY 30 days #30 tabs 10/11/24 ticagrelor 90 mg tablet (Brilinta) 90 mg PO BID 90 days #180 tabs 10/11/24 Hospital Course Operations None Procedures Cardiac catheterization, EKG and Transthoracic echo Summary of Care Provided Minutes Spent on Discharge: 35 Hospital Course: Patient is a 64-year-old female who presented [facility] ED on 10/09/2024 with chest pain. Hospital course as noted below. Patient discharged home in stable condition on 10/11. 1. Acute STEMI with resultant mildly reduced EF ? Cardiology followed. Underwent emergent left heart cath with FREDDIE x 1 to the LAD and PTCA of the proximal diagonal 1 branch. Echo 10/10 showed EF 50%, stage I diastolic dysfunction, severely hypokinetic mid anterior and apex segments, otherwise no other abnormalities. Remained stable in normal sinus rhythm during hospitalization. Discharged home on aspirin, Brilinta, high intensity statin, low-dose Toprol and low-dose lisinopril. Close outpatient follow-up with cardiology on discharge. 2. Tobacco use ? Advised smoking cessation on discharge and discussed importance of cessation given her acute STEMI. Denied need for nicotine replacement therapy while inpatient. Total clinical time spent by myself addressing the patient's medical issues, reviewing all the data, and collaborating with patient's care team: 35 minutes. Physical Exam Const alert, oriented x3, no apparent distress and average body habitus Constitutional Narrative: Pleasant elderly female, sitting up comfortably in bed, conversing normally, no acute distress. General Appearance: cooperative and comfortable HEENT normocephalic, head/scalp atraumatic, hearing grossly normal bilaterally, nasal mucous membranes and turbinates normal and moist oral mucous membranes Eyes PERRL, EOMs intact bilaterally and conjunctivae normal Neck full ROM Chest inspection of chest normal Resp normal respiratory effort, normal air movement, no use of accessory muscles and clear to auscultation bilaterally Cardio regular rate, regular rhythm, no murmurs and peripheral pulses 2+ throughout GI normal to inspection, nondistended, normoactive bowel sounds, soft to palpation, non-tender and non-distended Back/Spine normal ROM Extremity normal to inspection, full ROM and no pedal edema Skin no rashes or lesions noted Psych mental status grossly normal Weight / BMI Weight Weight: 78.1 kg Body Mass Index (BMI) 26.9 ABG / Lab / Microbiology Data 10/11/24 07:06 10/11/24 07:06 Laboratory: Laboratory Results - last 24 hr 10/11/24 07:06: WBC 9.9, RBC 4.58, Hgb 14.2, Hct 42.5, MCV 92.8, MCH 31.0, MCHC 33.4, RDW Std Deviation 44.4 H, RDW Coeff of Gerber 13.2, Plt Count 224, MPV 9.7, Sodium 139, Potassium 4.1, Chloride 110 H, Carbon Dioxide 24.0, Anion Gap 5, BUN 22 H, Creatinine 1.12 H, Estim Creat Clear Calc 53.20, Est GFR (MDRD) Af Amer 63, Est GFR (MDRD) Non-Af 52 L, BUN/Creatinine Ratio 19.6, Glucose 99, Calcium 9.0 Radiography Diagnostic Testing: Radiology Impression Echocardiogram 10/10/24 05:55 Interpretation Summary The left ventricular ejection fraction is 50 %. Normal LV size. Mild segmental systolic dysfunction (see wall motion). Stage 1 diastolic dysfunction. Ordering Physician: Tawanna Holder Referring Physician: JT BROCK Performed By: Denise Gamez RDCS D/C Instructions Discharge Diet: No restrictions DC O2, CPAP, BIPAP Needs Home O2 Discharge instructions: No Meaningful Use Info Meaningful Use Meaningful Use Diagnoses (Choose all that apply): AMI AMI/Post PCI/Angioplasty Aspirin given w/in 24hrs of arrival?: Yes ASA at discharge?: Yes Statins at discharge?: Yes Edvin/ARB at discharge?: Yes Beta Divya at discharge?: Yes Done w/ Acute [place] measure.: Yes Ischemic Stroke Statin Dosing Therapy Reference: STATIN DOSE THERAPY REFERENCE: * Patients > 75 years receive moderate or high dose statin therapy. * Patients 75 years or YOUNGER should receive HIGH intensity statin dose unless contraindicated. You will be required to document reason for non-treatment if statin daily dose does not meet guidelines. HIGH DOSE STATIN THERAPY DAILY Atorvastatin > than or = to 40 mg Rosuvastatin > than or = to 20 mg Amlodipine + Atorvastatin > than or = to 2.5/40 mg Ezetimibe + Simvastatin 10/80 mg Simvastatin 80mg Discharge Plan Admission Admit Date/Time: 10/09/24 16:35 Primary Reason for Your Visit: chest pain Attending Provider: Kraig Feliz Primary Care Provider: Jt Brock Consulting Providers: Tawanna Holder; Adan Galindo Instructions Additional Instructions / Restrictions: Please start taking all medications as noted below. Follow up in the cardiology office as instructed. Discharge Orders/Prescriptions Prescriptions: New atorvastatin 40 mg Tablet 40 mg PO QHS 90 Days Qty: 90 3RF aspirin 81 mg Tablet,Delayed Release (Dr/Ec) 81 mg PO DAILY@0800 90 Days Qty: 90 3RF Brilinta 90 mg Tablet 90 mg PO BID 90 Days Qty: 180 1RF metoprolol succinate [Toprol XL] 25 mg tablet extended release 24 hr 25 mg PO DAILY 30 Days Qty: 30 2RF lisinopril 2.5 mg tablet 2.5 mg PO DAILY 30 Days Qty: 30 2RF Referrals / Follow Up: Latrell Del Rio MD [Non-Staff] - Alfredito Saucedo MD [Med Staff - Active Staff] - Jt Brock DO [Primary Care Provider] - Disposition Disposition (needs filled in before D/C Order can be placed): Home, Self Care Charges/Coding Visit Charges Inpatient E&M: 48461 Disch Hosp >30min
--- NOTE | 2024-10-11 09:57 | CASEMGMT ---
Addendum entered by Myesha Laurent 10/11/24 10:39: [facility] returns calls and states that the 90 day supply for the Brilinta is 232$ after insurance. Pt notified and states that she would like to use the trial card (pt is aware this can only be used once per lifetime). [facility] notified and was able to apply the savings card and states that the pt total today is now 27.12$. Pt states that she is OK with this and that she has a payment method for meds to bed. [facility] states that they will deliver the medications soon. Pt denies anything further needs from this RN CM. Pt RN updated. Original Note: Pt has an order for DC placed. TC to [facility] to check on pricing for pt new Rx (Brilinta). [facility] states they have not gotten to this pt yet and will call this RN CM back. Will follow.
--- NOTE | 2024-10-11 10:00 | EKG12_ITS ---
Test Reason : post stemi Blood Pressure : */* mmHG Vent. Rate : 68 BPM Atrial Rate : 68 BPM P-R Int : 150 ms QRS Dur : 62 ms QT Int : 390 ms P-R-T Axes : 53 53 64 degrees QTcB Int : 414 ms Normal sinus rhythm Normal ECG When compared with ECG of 09-Oct-2024 15:14, MANUAL COMPARISON REQUIRED DATA IS UNCONFIRMED Confirmed by MILEY WADSWORTH, RUTH ANN ([id number]), online content editor LISETTE PINEDA ([id number]) on 10/11/2024 6:23:35 AM Referred By: Adan Galindo Confirmed By: RUTH ANN TRENT MD
== END 2024-10-11 11:45 | disposition home or self-care (01) | DRG 322 ==
LOC: ED 15:23 → ICU 20:20
PROVIDERS: Admitting Provider Internal Medicine; Emergency Provider Emergency Medicine; Referring Provider Specialist; Visit Provider Hospitalist
DX: I21.02 ST elevation (STEMI) myocardial infarction involving left anterior descending coronary artery (principal); F17.210 Nicotine dependence, cigarettes, uncomplicated; R03.0 Elevated blood-pressure reading, without diagnosis of hypertension; Z71.6 Tobacco abuse counseling; Z79.02 Long term (current) use of antithrombotics/antiplatelets; Z79.82 Long term (current) use of aspirin; Z79.899 Other long term (current) drug therapy
CPT/HCPCS: 36415; 80048; 80053; 80061; 83735; 84443; 84484; 85025; 85027; 85610; 85730; 92921; 92928; 92941; 93005; 93306; 93454; 94762; 99285; C1894; J7030; J7040; Q9967; A4216; C1725; C1769; C1874; C1887; C9600; C9606; J1327; J2405

== ENCOUNTER → 2024-10-31 | Outpatient (CLI) | payer MEDICARE, SELFPAY ==
--- NOTE | 2024-10-31 08:02 | PCM.CR.HP2 ---
CR - History & Physical General Arrival date:: 10/31/24 Arrival time:: 08:02 Date of Referral:: 10/10/24 Date of CR Evaluation:: 10/31/24 Referring Physician: Dr. Galindo Primary Diagnosis: PCI with stenting History of Present Cardiac Event Onset Date PTCA or coronary stenting:: Yes Vessel: LAD 10/09/2024 Medications Ambulatory Orders ?Medication ?Instructions ?Recorded aspirin 81 mg tablet,delayed 81 mg PO DAILY@0800 90 days #90 10/11/24 release tabs atorvastatin 40 mg tablet 40 mg PO QHS 90 days #90 tabs 10/26/24 lisinopril 2.5 mg tablet 2.5 mg PO DAILY 90 days #90 tabs 10/26/24 metoprolol succinate 25 mg 25 mg PO DAILY 90 days #90 tabs 10/26/24 tablet,extended release 24 hr (Toprol XL) ticagrelor 90 mg tablet (Brilinta) 90 mg PO BID 90 days #180 tabs 10/26/24 Allergies Allergies Penicillins Allergy (Verified 10/26/24 15:20) Hives Sulfa (Sulfonamide Antibiotics) Adverse Reaction (Verified 10/26/24 15:20) Diarrhea Sleep Disorder Evaluation Hx of Sleep Apnea: No Do you snore loudly (louder than talking or can be heard through closed doors)?: Yes Do you often feel tired/ fatigued/ sleepy during daytime?: Yes Has anyone observed you stop breathing during sleep?: Yes History of Hypertension (for STOP score): No STOP Results: Positive Advanced Directives Advanced Directives Power of Multimedia Manager: No Living Will: No Advance Directives Information Provided: No Advance Directives on File: No Past Medical History Covid-19 Screening Physicial Symptoms Other Clinical Concerns Exposure Risk Pertinent Comorbidities 65 years or older:: Yes Has a serious heart condition:: Yes Past Medical Illness Past Medical History (Updated 10/26/24 @ 16:05 by Aung Franklin [employer], [employer]) Atherosclerosis of coronary artery of [place] heart without angina pectoris I25.10 Myocardial infarct I21.9 Past Surgical History Past Surgical History (Updated 10/26/24 @ 16:05 by Aung Franklin NP, [employer]) History of carpal tunnel surgery of left wrist Z98.890 History of coronary artery stent placement (10/09/24) Z95.5 2.75 x 18 mm ANTONIA FRONTIER FREDDIE to pLAD; PTCA alone to pD1 10/09/2024; Family History Summary Family History (Updated 10/26/24 @ 15:48 by Aung Franklin [employer], [employer]) Father CAD (coronary artery disease) CABG age 68; CVA (cerebral vascular accident) Myocardial infarction Mother Cancer Cervical, Melanoma, Colon Social History Smoking History Smoking Status: Current every day smoker Years Smokin Packs Smoked per Day: 1 Alcohol Use Alcohol Usage: No Substance Abuse Hx Substance Use: No Occupation Occupation (List type of work in comments):: Retired Hobbies, Recreation, Social Activities Hobbies: None Social Environment Status Marital Status: Current Living Arrangements Living Environment:: Spouse Children How many children do you have?: 2 Do any of your children live nearby?: Yes Safety Do you feel safe in your surroundings?: Yes Assistance Do you need any assistance at home?: no Review of Systems Review of Systems Hints Review of Present Symptoms: Reports Shortness of Breath with Exertion, Fatigue, Heart Arrhythmia/Irregularities, Appetite - Normal and Appetite - Special Diet; Denies Shortness of Breath at Rest, PVD, Operative Discomfort, Angina, Wound Healing, Dizziness/Lightheadedness, Sleep - Normal or Sexual Changes Pain Is Patient Pain Free?: Yes Risk Factor Assessment Chief Complaint Chief Complaint: PCI with stenting Vital Signs Pulse Ox: 97 Blood Pressure: 94/52 Pulse Pulse Rate: 64 Hypertension Blood Pressure Sitting - Left Arm: 94/52 Obesity Height: 5 ft 7 in Weight:: 167 lb Weight in Pounds: 167.0 lbs Body Mass Index (BMI): 26.2 Nutritional Referral for Obesity: No (declines) Physical Inactivity Physical Inactivity: Reg Exercise 30 min/day Risk Stratification Risk Guidelines: Moderate Risk: Risk Factor for Diabetes, Risk Factor for Obesity, Risk Factor for Hypertension, Risk Factor for Sedentary Lifestyle and Risk Factor for Depression and Highest Risk: Risk Factor for Smoking and Risk Factor for Dyslipidemia For Smoking Smoking Risk Guidelines For Dyslipidemia Dyslipidemia Risk Guidelines For Diabetes Mellitus Diabetes Risk Guidelines For Obesity/Overweight Obesity/Overweight Risk Guidelines For Hypertension Hypertension Risk Guidelines For Sedentary Lifestyle Sedentary Lifestyle Risk Guidelines For Depression Depression Risk Guidelines Family History Family History (Updated 10/26/24 @ 15:48 by Aung Franklin [employer], [employer]) Father CAD (coronary artery disease) CVA (cerebral vascular accident) Myocardial infarction Mother Cancer Motivation Motivation to Participate On a scale of 1 to 10, how prepared are you to commit to attending program?: 8 What do you see as barriers to successfully being able to complete the program?: nothing What do you see as the benefits of succesfully completing the program? In other words, what do you hope to get out of participating in the program?: strength, less SOB Are there issues you are dealing with that will interfere with completing the program?: no Do you have a spouse or signficant other, family or friends who will help support you to complete the program?: yes
--- NOTE | 2024-10-31 08:08 | PCM.CR.ITP ---
Diagnosis General Information Admitting Diagnosis: PCI with stenting Personal Learning Style:: Audio/Visual Barriers to Learning: No Barriers Stage of change r/t lifestyle modifications:: Contemplation Gave educational material for:: Treating Heart Disease, How The Heart Works, What it means to have Heart Disease, How Coronary Artery Disease is Diagnosed, Heart Procedures, What Heart Medications Do, Risk Factors & Modifications, Living an Active Life, Nutrition, Emotions & Heart Disease, Stress Management & Relaxation and Sleep Disorders & Heart Disease Education/Goals Cardiac Rehabilitation Goals Personal Goals: Initial Assessment: Quit smoking (participate in smoking cessation, Improve energy level, Participate in home exercise program, Get back to work, or to resume activities faster, Improve knowledge of cardiac disease, Improve muscle strength and endurance, Improve diet and eating habits (eat healthier) and Control risk factors (learn risk factor modification) Scale for measuring improvement of personal goals Diagnosis & Disease Process Outcomes/Goals: Pt IDs own risk factors & lifestyle modifications by Session 10, Verbalizes symptoms of angina & response by session 3., Pt independently manages and Other Additional Outcomes/Goals: Plan/Interventions: Assist Pt to ID & engage in lifestyle modification to reduce CVD risk, Instruct on individual risk factors, Review symptoms of angina & emergency actions, Review secondary diagnosis & identify educational needs. and Other see comment 30 day Reassessments:: Not Met 30 day Reassessments:: Not Met 30 day Reassessments:: Not Met 30 day Reassessments:: Not Met Final Reassessments:: Not Met Safety Referral to Physical Therapy: No Referral to [facility] Case Management: No Fall Risk Assessed:: Yes Assistive Devices:: None Exercise - Initial Assessment Visit Date of Eval: 10/31/24 (initial eval ) Mets: Pre-: >3 METS for 30 minutes by discharge, >5 METS for 30 minutes by discharge, >7 METS for 30 minutes by discharge and Unable to meet goal due to: (see comment below) Physician Prescribed Exercise Modalities: Treadmill, Rower, [place] AD-7, SciFit Stepper, SciFit Pro-II Ergometer and SciFit Lateral Rn Care Transition Frequency: 3x/week for 12 weeks [36 sessions] Intensity: 60-80% of age predicted maximum heart rate reserve Duration: 30 - 45 minutes Current METSs:: 3 Target Heart Rate:: 92-116 Resting Blood Pressure: 94/52 EKG Type: NSR Outcomes & Goals Goals:: Verbalizes understanding of THR, RPE & goal METS by session 6, Documents in home exercise log/reports 30 min aerobic 5 day/wk by DC, Demonstrates accurate pulse taking by DC and Other additional outcome/goals: see below Intervention & Plan Exercise Program Goals: Instruct on personal THR & RPE, Instruct on MET level & personal MET goal, Show patient to take own pulse /validate performance until accurate, Instruct on home exercise and Other additional plan/int Physical Activity Home Exercise Physical Activity - Home Exercise: Safe Exercise, Warm-up, Self-monitoring, Cool-Down, Home Exercise > 30 min Daily and Sitting Time <3 hours/daily Outcomes & Goals Outcomes/Goals: Demonstrates correct Warm-up/exercise Cool-Down (S3) if = 2.5 METs, Verbalizes symptoms of exercise intolerance by Session 3 (S3), Demonstrate safe equipment use (S3) & follows exercise prescrition (6) and Other: See below Intervention & Plan Plan/Intervention: Instruct warm-up & cool-down if exercising at > 2 METs, Instruct on symptoms of exercise intolerance & actions to take, Instruct & monitor on saf, Assess intial functional capacity & safety risk and Other See below Nutrition - Initial Assessment Program Goals Nutrition Program Goals Patient has diagnosis of Hyperlipidemia (ICD E78)?: Yes Visit Date of Eval: 10/31/24 (initial eval ) Cholesterol/Lipids (Other Core Measures) Determine presence & major risk factors that modify LDL goal: Cigarette smoking, Hypertension or hypertensive medication, Low HDL cholesterol <40 mg/dL*, Family history of premature CHD in Male < 55 years: female <65 yearsFa and Age men > 45 years; women >/= 55 years Outcomes/Goals: Pt IDs own risk factors & lifestyle modifications by Session 10, Verbalizes symptoms of angina & response by session 3., Pt independently manages and Other Additional Outcomes/Goals: Intervention/Plan: Advocate for lipid panel cholesterol medication if applicable, Instruct on personal lipid levels & lipid goals/NCEP guidelines, Instruct on cholesterol and Other additional plan/int Diabetes (Other Core Measures) Diabetes Type: Not Applicable Weight Mgt (Other Care) Height: 5 ft 7 in Weight:: 167 lb BMI: 26.2 Outcomes/Goals: Pt sets, maintains & shows weight loss goal & trend during rehab and Other additional outcomes/goals Intervention/Plan: Instruct on ideal BMI & set weight loss goal w/patient, Assist pt to ID & incorporate diet changes for weight loss by S9, Refer to Structured Weight Loss program as appropriate, Encourage goal of using 250-300dcal per session for weight loss and Other additional plan/interventions Healthy Eating Habits Will attend diet classes:: Yes Outcomes/Goals:: Consume diet rich in vegs,fruits,whole grain/high fiber,fish,lean meat, Limit sat/trans fats,cholesterol & added salts & sugars and Other additional outcome/goals: Intervention/Plan:: Assess current eating habits and Other Additional plan/interventions Education Gave educational materials for:: Signs & symptoms of hypoglycemia, Signs & symptoms of hyperglycemia, Relate diabetes to coronary artery disease and Healthy eating Core - Initial Assessment Visit Date of Eval: 10/31/24 (initial eval) Medication Compliance Preventative Medication(s):: Aspirin, CT inhibitor, Ticagrelor/P2Y12 inhibitor, Statin/lipid and Beta brandy H/O mental health issues: depression, anxiety, or addiction?: No Doesn?t believe in the benefits of treatment?: No Believes medications are unnecessary or harmful?: No Has a concern about medication side effects?: No Expresses concern over the cost of medications?: No Outcomes/Goals: Verbalizes medications,desired effect & common side effects @ DC, Pt self-reports following medication regimen, Keeps card in wallet w/medications listed by DC and Other additional outcome/goals: Interventions/plans: Instruct on medication effects & side effects, Review medication list w/patient every two weeks, Instruct importance of taking meds as ordered & assist problem solving and Other additional Tobacco Use Tobacco Use: Cigarettes Outcomes/Goals: Smoking cessation achieved or maintained by discharge, Identify aids/strategies for achieving smoking cessation by session 6 and Other additional outcome/goals Interventions/plan: Instruct on effects of smoking & provide smoking cessation resource, Assist pt to set quit date & provide encouragement, Assist pt to develop strategies to achieve/maintain quit date, Assist pt w/nicotine replacement & medication for cessation success and Other additional plan/interventions Hypertension [place] [employer] Hypertension Guidelines Outcomes/Goals: Able to verbalize/achieve optimal blood pressure <130/80, Incorporates diet changes & exercise for blood pressure control by DC and Other additional outcomes/goals Interventions/plan: Instruct on optimal blood pressure, hypertension & medications, Instruct on effects of sodium, alcohol, stress, exercise &hypertension and Other additional plan/interventions Tobacco Cessation Referral Smoking Cessation Referral:: No (declines for now ) Individual Education/Counseling:: No Education Schedule Given:: Yes Psychosocial - Initial Assess VIsit Date of Eval: 10/31/24 (initial eval ) History of previous Mental disease:: No Target Goals Target Goals Psychosocial Test Tool Used:: Wilfred Watt QOL Cardiac and PHQ-9 Questionnaire phq-9 Severity Referral to Behavioral Health PS - Interventions: Yes: Attend Stress Management Classes Outcomes/Goals: See list Psychosocial Outcomes/Goals:: ID's personal stressors & 2 strategies to manage stress by discharge and Other Additional outcome/goals: Intervention/Plan: See List Interventions/Plan:: Assess stressors,coping strategies & signs of derpression on admission, Instruct/assist pt to develop coping & personal stress Mgt strategies, Refer to Behavioral Health if appropriate, Refer to Physician if appropriate, Instruct patient to recognize signs & symptoms of depression, Instruct patient to recog and Other additional plan/intervention Patient Health Questionnaire PHQ-9 Screening Initial Assessment: 1. Little interest or pleasure in doing things: Several days 2. Feeling down, depressed, or hopeless: Not at all 3. Trouble falling or staying asleep, or sleeping too much: Not at all 4. Feeling tired or having little energy: Several days 5. Poor appetite or overeating: Not at all 6. Feeling bad about yourself -- or that you are a failure or have let yourself or your family down: Not at all 7. Trouble concentrating on things, such as reading the newspaper or watching television: Not at all 8. Moving or speaking so slowly that other people could have noticed. Or the opposite - being so fidgety or restless that you have been moving around a lot more than usual: Not at all 9. Thoughts that you would be better off , or of hurting yourself in some way: Not at all How difficult have these problems made it for you to do your work, take care of things at home, or get along with other people?: Not difficult at all Total Score: 2 NISHANT-Q SV Test Statements CAD is a disease of the arteries in the heart: False Examples of risk factors for heart disease: True Angina is chest pain or discomfort: I Don't Know The benefits of resistance training include: I Don't Know Eating more meat and dairy products: False Anti-platelet medications such as aspirin are important: True The only effective way to manage stress: False An exercise warm-up slowly increases heart rate: I Don't Know Prepared, processed foods usually have high sodium: True Depression is common after a heart attack: I Don't Know The statin medications lower cholesterol: True To control blood pressure, lower the amount of sodium: True If someone gets chest discomfort during walking: I Don't Know Transfats are partially hydrogenated vegetable oils: True Sleep apnea that is not treated increases the risk: True To control cholesterol, one should become a vegetarian: False Someone knows if he/she is exercising at the right level: I Don't Know Diabetes cannot be prevented with exercise & health eating: False Stress is a large risk for heart attack: True A diet that can help lower blood pressure is rich in: True Total Score Total Correct Responses: 13 Self-Efficacy 6-Item Scale Initial Assessment: We would like to know how confident you are in doing certain activities. Please select your confidence level for: Fatigue Select Number: 9 Physical Discomfort or Pain Select Number: 9 Emotional Distress Select Number: 9 Other Symptoms or Health Problems Select Number: 9 Different Tasks and Activities Select Number: 9 Medication Select Number: 9 Total Score:: 9 Nutrition Survey Nutrition Survey Instructions Scoring Instructions Nutrition Survey Initial: Have you lost >10 lbs over the past 2 months without trying?: No Are you following a special diet at home for diabetes, low fat, or low salt?: Yes Are you interested in meeting with a dietitian for help understanding your diet?: No Do you eat less than 3 meals a day?: No Do you eat fatty meats (noonan, sausage, ribs, etc), fried foods, desserts, large amounts of salad dressings, margarine, butter, or cheese most days?: Yes Do you have food allergies? [Enter types in comment field]: No Do you eat in restaurants more than 3 times a week?: No Do you season food with salt, seasoning salt, or garlic salt?: Yes Do you used canned, boxed, frozen meals, or soups, seasoning packets?: Yes Total Score:: 4 Exercise - 30-day Assessment Physician Prescribed Exercise Modalities: Treadmill, [place] AD-7, SciFit Stepper, SciFit Pro-II Ergometer and SciFit Lateral [place] Exercise - 60-day Assessment Physician Prescribed Exercise Modalities: Treadmill, Rower, [place] AD-7, SciFit Stepper, SciFit Pro-II Ergometer and SciFit Lateral Rn Care Transition Exercise - 90-day Assessment Physician Prescribed Exercise Modalities: Treadmill, Rower, [place] AD-7, SciFit Stepper, SciFit Pro-II Ergometer and SciFit Lateral [place] Exercise - Final/Discharge Physician Prescribed Exercise Modalities: Treadmill, Rower, [place] AD-7, SciFit Stepper, SciFit Pro-II Ergometer and SciFit Lateral [place] Frequency: 3x/week for 12 weeks [36 sessions] Intensity: 60-80% of age predicted maximum heart rate reserve Current METSs:: 3 Target Heart Rate:: 92-116 Nutrition - 30-Day Assessment Weight Mgt (Other Care) Height: 5 ft 7 in Weight:: 167 lb BMI: 26.2 Nutrition - 60-Day Assessment Weight Mgt (Other Care) Height: 5 ft 7 in Weight:: 167 lb BMI: 26.2 Psychosocial - 30-Day Assess Target Goals Target Goals Referral to Behavioral Health PS - Interventions: Yes: Attend Stress Management Classes Psychosocial - 60-Day Assess Target Goals Target Goals Referral to Behavioral Health PS - Interventions: Yes: Attend Stress Management Classes Psychosocial - 90-Day Assess Target Goals Target Goals Referral to Behavioral Health PS - Interventions: Yes: Attend Stress Management Classes Psychosocial - Final Assessmen Target Goals Target Goals Referral to Behavioral Health PS - Interventions: Yes: Attend Stress Management Classes Nutrition - 90-Day Assessment Weight Mgt (Other Care) Height: 5 ft 7 in Weight:: 167 lb BMI: 26.2 Nutrition - Final Assessment Program Goals Patient has diagnosis of Hyperlipidemia (ICD E78)?: Yes Weight Mgt (Other Care) Height: 5 ft 7 in Weight:: 167 lb BMI: 26.2
[2024-10-31 08:24] VITALS: BP 94/52; PULSE 64; O2SAT 97
[2024-10-31 08:49] VITALS: BP 94/52; BMI 26.2
[2024-10-31 08:52] VITALS: BMI 26.2
== END | disposition home or self-care (01) ==
LOC: CR 07:56
PROVIDERS: Referring Provider Specialist; Visit Provider Specialist
DX: I25.10 Atherosclerotic heart disease of native coronary artery without angina pectoris (principal); I25.2 Old myocardial infarction; Z95.5 Presence of coronary angioplasty implant and graft

== ENCOUNTER → 2024-11-07 | Outpatient (CLI) | payer MEDICARE, SELFPAY ==
[2024-10-31 08:49] VITALS: BMI 26.2
== END | disposition home or self-care (01) ==
LOC: SL 20:02
PROVIDERS: Referring Provider Nurse Practitioner Family; Visit Provider Nurse Practitioner Family
DX: G47.33 Obstructive sleep apnea (adult) (pediatric) (principal)
CPT/HCPCS: 95810

== ENCOUNTER 2024-11-23 11:15 | Outpatient (RCR) | payer MEDICARE, SELFPAY ==
[2024-10-31 08:49] VITALS: BMI 26.2
== END 2024-11-23 23:59 ==
LOC: CR 11:15
PROVIDERS: Referring Provider Specialist; Visit Provider Specialist
DX: I25.10 Atherosclerotic heart disease of native coronary artery without angina pectoris (principal); Z95.5 Presence of coronary angioplasty implant and graft; I21.09 ST elevation (STEMI) myocardial infarction involving other coronary artery of anterior wall

== ENCOUNTER 2024-12-03 11:15 | Outpatient (RCR) | payer MEDICARE, SELFPAY ==
[2024-10-31 08:49] VITALS: BMI 26.2
--- NOTE | 2024-11-29 09:07 | PCM.CR.ITP ---
Exercise - Initial Assessment Visit Session #:: 11 Physician Prescribed Exercise Modalities: Treadmill, SciFit Stepper and SciFit Lateral Voice Pathologist Nutrition - Initial Assessment Weight Mgt (Other Care) Height: 5 ft 7 in Weight:: 166 lb BMI: 25.9 Psychosocial - Initial Assess Target Goals Target Goals Referral to Behavioral Health PS - Interventions: Yes: Attend Stress Management Classes Patient Health Questionnaire PHQ-9 Screening 30-Day Re-eval Assessment: 1. Little interest or pleasure in doing things: Several days 2. Feeling down, depressed, or hopeless: Not at all 3. Trouble falling or staying asleep, or sleeping too much: Not at all 4. Feeling tired or having little energy: Several days 5. Poor appetite or overeating: Not at all 6. Feeling bad about yourself -- or that you are a failure or have let yourself or your family down: Not at all 7. Trouble concentrating on things, such as reading the newspaper or watching television: Not at all 8. Moving or speaking so slowly that other people could have noticed. Or the opposite - being so fidgety or restless that you have been moving around a lot more than usual: Not at all 9. Thoughts that you would be better off , or of hurting yourself in some way: Not at all How difficult have these problems made it for you to do your work, take care of things at home, or get along with other people?: Not difficult at all Total Score: 2 Self-Efficacy 6-Item Scale 30-Day Re-eval Assessment: We would like to know how confident you are in doing certain activities. Please select your confidence level for: Fatigue Select Number: 9 Physical Discomfort or Pain Select Number: 9 Emotional Distress Select Number: 9 Other Symptoms or Health Problems Select Number: 9 Different Tasks and Activities Select Number: 9 Medication Select Number: 9 Total Score:: 9 Nutrition Survey Nutrition Survey Instructions Scoring Instructions Exercise - 30-day Assessment Visit Date of Eval: 11/29/24 Session #:: 11 Physician Prescribed Exercise Modalities: Treadmill, SciFit Stepper and SciFit Lateral Voice Pathologist Frequency: 3x/week for 12 weeks [36 sessions] Intensity: 60-80% of age predicted maximum heart rate reserve Duration: 30 - 45 minutes Current METSs:: 3.5 Target Heart Rate:: 92-116 Current RPE:: 11-12 Maximum Excercise HR:: 107 Resting Blood Pressure: 120/70 Maximum Exercise Blood Pressure: 160/58 EKG Type: NSR to ST with a rare pac and pvc. Outcomes & Goals Goals:: Verbalizes understanding of THR, RPE & goal METS by session 6, Documents in home exercise log/reports 30 min aerobic 5 day/wk by DC, Demonstrates accurate pulse taking by DC and Other additional outcome/goals: see below Intervention & Plan Exercise Program Goals: Instruct on personal THR & RPE, Instruct on MET level & personal MET goal, Show patient to take own pulse /validate performance until accurate, Instruct on home exercise and Other additional plan/int Physical Activity Home Exercise Physical Activity - Home Exercise: Safe Exercise, Warm-up, Self-monitoring, Cool-Down, Home Exercise > 30 min Daily and Sitting Time <3 hours/daily Outcomes & Goals Outcomes/Goals: Demonstrates correct Warm-up/exercise Cool-Down (S3) if = 2.5 METs, Verbalizes symptoms of exercise intolerance by Session 3 (S3), Demonstrate safe equipment use (S3) & follows exercise prescrition (6) and Other: See below Intervention & Plan Plan/Intervention: Instruct warm-up & cool-down if exercising at > 2 METs, Instruct on symptoms of exercise intolerance & actions to take, Instruct & monitor on saf, Assess intial functional capacity & safety risk and Other See below 30-day Reassessments 30 day Reassessments:: Progressing Reassessment Notes & Comments:: RPE explained to pt. Pt demonstrates understanding. Exercise - 60-day Assessment Physician Prescribed Exercise Modalities: Treadmill, SciFit Stepper and SciFit Lateral Voice Pathologist Exercise - 90-day Assessment Physician Prescribed Exercise Modalities: Treadmill, SciFit Stepper and SciFit Lateral [place] Exercise - Final/Discharge Physician Prescribed Exercise Modalities: Treadmill, SciFit Stepper and SciFit Lateral Voice Pathologist Nutrition - 30-Day Assessment Program Goals Nutrition Program Goals Patient has diagnosis of Hyperlipidemia (ICD E78)?: Yes Visit Date of Eval: 11/29/24 Session #:: 11 Cholesterol/Lipids (Other Core Measures) Determine presence & major risk factors that modify LDL goal: Cigarette smoking, Hypertension or hypertensive medication, Low HDL cholesterol <40 mg/dL*, Family history of premature CHD in Male < 55 years: female <65 yearsFa and Age men > 45 years; women >/= 55 years Outcomes/Goals: Pt IDs own risk factors & lifestyle modifications by Session 10, Verbalizes symptoms of angina & response by session 3., Pt independently manages and Other Additional Outcomes/Goals: Intervention/Plan: Advocate for lipid panel cholesterol medication if applicable, Instruct on personal lipid levels & lipid goals/NCEP guidelines, Instruct on cholesterol and Other additional plan/int Diabetes (Other Core Measures) Diabetes Type: Not Applicable Weight Mgt (Other Care) Height: 5 ft 7 in Weight:: 166 lb BMI: 25.9 Diagnosis Overweight/Obesity BMI> 30% ICD-10 E66: No Diagnosis High BMI/Morbid Obesity BMI> 35% ICD-10 Z68: No Outcomes/Goals: Pt sets, maintains & shows weight loss goal & trend during rehab and Other additional outcomes/goals Intervention/Plan: Instruct on ideal BMI & set weight loss goal w/patient, Assist pt to ID & incorporate diet changes for weight loss by S9, Refer to Structured Weight Loss program as appropriate, Encourage goal of using 250-300dcal per session for weight loss and Other additional plan/interventions Healthy Eating Habits Will attend diet classes:: Yes Outcomes/Goals:: Consume diet rich in vegs,fruits,whole grain/high fiber,fish,lean meat, Limit sat/trans fats,cholesterol & added salts & sugars and Other additional outcome/goals: Intervention/Plan:: Assess current eating habits and Other Additional plan/interventions 30-day Reassessments:: Progressing Reassessment Notes & Comments:: Pt is scheduled to attend nutrition class next week. Pt encouraged to eat a low sodium heart healthy diet. Education Gave educational materials for:: Signs & symptoms of hypoglycemia, Signs & symptoms of hyperglycemia, Relate diabetes to coronary artery disease and Healthy eating Nutrition - 60-Day Assessment Weight Mgt (Other Care) Height: 5 ft 7 in Weight:: 166 lb BMI: 25.9 Core - 30-Day Assessment Visit Date of Eval: 11/29/24 Session #:: 11 Medication Compliance Preventative Medication(s):: Aspirin, CT inhibitor, Ticagrelor/P2Y12 inhibitor, Statin/lipid and Beta brandy H/O mental health issues: depression, anxiety, or addiction?: No Doesn?t believe in the benefits of treatment?: No Believes medications are unnecessary or harmful?: No Has a concern about medication side effects?: No Expresses concern over the cost of medications?: No Outcomes/Goals: Verbalizes medications,desired effect & common side effects @ DC, Pt self-reports following medication regimen and Keeps card in wallet w/medications listed by DC Interventions/plans: Instruct on medication effects & side effects, Review medication list w/patient every two weeks and Instruct importance of taking meds as ordered & assist problem solving Tobacco Use Tobacco Use: Cigarettes Outcomes/Goals: Smoking cessation achieved or maintained by discharge, Identify aids/strategies for achieving smoking cessation by session 6 and Other additional outcome/goals Interventions/plan: Instruct on effects of smoking & provide smoking cessation resource, Assist pt to set quit date & provide encouragement, Assist pt to develop strategies to achieve/maintain quit date, Assist pt w/nicotine replacement & medication for cessation success and Other additional plan/interventions 30-day Reassessments:: Progressing Reassessment Notes & Comments:: smoking cessation is encouraged. Hypertension Resting Blood Pressure:: 120/70 [place] [employer] Hypertension Guidelines Peak Exercise Blood Pressure:: 160/58 Outcomes/Goals: Able to verbalize/achieve optimal blood pressure <130/80, Incorporates diet changes & exercise for blood pressure control by DC and Other additional outcomes/goals Interventions/plan: Instruct on optimal blood pressure, hypertension & medications, Instruct on effects of sodium, alcohol, stress, exercise &hypertension and Other additional plan/interventions 30 day Reassessments:: Progressing Reassessment Notes & Comments:: Pt's BP's are with in AHA normal limits on most days. Low sodium diet encouraged. Smoking cessation encouraged. Tobacco Cessation Referral Education Schedule Given:: Yes Psychosocial - 30-Day Assess VIsit Date of Eval: 11/29/24 Session #:: 11 History of previous Mental disease:: No Target Goals Target Goals Psychosocial Test Tool Used:: 6fusionans Raising IT QOL Cardiac and PHQ-9 Questionnaire phq-9 Severity Referral to Behavioral Health PS - Interventions: Yes: Attend Stress Management Classes Outcomes/Goals: See list Psychosocial Outcomes/Goals:: ID's personal stressors & 2 strategies to manage stress by discharge and Other Additional outcome/goals: Intervention/Plan: See List Interventions/Plan:: Assess stressors,coping strategies & signs of derpression on admission, Instruct/assist pt to develop coping & personal stress Mgt strategies, Refer to Behavioral Health if appropriate, Refer to Physician if appropriate, Instruct patient to recognize signs & symptoms of depression, Instruct patient to recog and Other additional plan/intervention 30-day Reassessments: 30 day Reassessments:: Met Reassessment Notes & Comments:: Pt denies any psychosocial issues at this time. Psychosocial - 60-Day Assess Target Goals Target Goals Referral to Behavioral Health PS - Interventions: Yes: Attend Stress Management Classes Outcomes/Goals: See list Psychosocial Outcomes/Goals:: ID's personal stressors & 2 strategies to manage stress by discharge and Other Additional outcome/goals: Psychosocial - 90-Day Assess Target Goals Target Goals Referral to Behavioral Health PS - Interventions: Yes: Attend Stress Management Classes Psychosocial - Final Assessmen Target Goals Target Goals Referral to Behavioral Health PS - Interventions: Yes: Attend Stress Management Classes Nutrition - 90-Day Assessment Weight Mgt (Other Care) Height: 5 ft 7 in Weight:: 166 lb BMI: 25.9 Nutrition - Final Assessment Weight Mgt (Other Care) Height: 5 ft 7 in Weight:: 166 lb BMI: 25.9
[2024-11-29 09:11] VITALS: BP 120/70
[2024-11-29 09:23] VITALS: BP 120/70; BMI 25.9
== END 2024-12-21 23:59 ==
LOC: CR 11:15
PROVIDERS: Referring Provider Specialist; Visit Provider Specialist
DX: I25.10 Atherosclerotic heart disease of native coronary artery without angina pectoris (principal); Z95.5 Presence of coronary angioplasty implant and graft; I21.09 ST elevation (STEMI) myocardial infarction involving other coronary artery of anterior wall
CPT/HCPCS: 93798

== ENCOUNTER 2024-12-11 09:56 | Emergency (ER) | payer MEDICARE, SELFPAY ==
[2024-11-29 09:23] VITALS: BMI 25.9
[2024-12-11 09:58] VITALS: BP 160/84; PULSE 76; RESP 18; TEMP 37.1; O2SAT 99; BMI 26.4
[2024-12-11 09:59] VITALS: BP 160/84; PULSE 76; RESP 18; TEMP 37.1; O2SAT 99
[2024-12-11 10:29] LABS: Absolute Neutrophil Count 5.4 X10^3/uL (2.0-7.7); Basophil# 0.07 X10^3/uL; Basophil% 0.9 % (0-1); Eosinophil# 0.13 X10^3/uL; Eosinophils% 1.7 % (0-5); Hemoglobin 13.7 g/dL (12.0-15.0); Lymphocyte % 24.1 % (19-41); Mean Corp Hgb Conc 32.6 g/dL (32-36); Mean Corpuscular Hgb 30.4 pg (27.0-32.0); Mean Corpuscular Volume 93.1 fL (81-99); Mean Platelet Vol. 9.6 fl (6.2-12.0); Monocyte% 3.8 % (0-10); NRBC Flagged by Analyzer 0 % (0-5); Neutrophil # 5.44 X10^3/uL (2.7-7.7); Neutrophil % 69.1 % (47-70); POSITIVE MORPHOLOGY YES; Platelet Count 203 K/mm3 (150-450); RBC Distribution Width CV 13.9 % (11.6-14.6); RBC Distribution Width SD 47.3 fl (35.1-43.9); Red Blood Count 4.51 M/mm3 (4.2-5.4); White Blood Count 7.9 K/mm3 (4.4-11.0)
--- NOTE | 2024-12-11 10:32 | RAD_ITS ---
PROCEDURE: CHEST PA AND LATERAL REASON FOR EXAM: Dyspnea at night TECHNIQUE: Frontal and lateral views of the chest. COMPARISON: None. FINDINGS: The heart size is normal. There are atherosclerotic calcifications of the thoracic aorta. The lungs are clear. Degenerative changes are identified within the thoracic spine. RAD/Chest PA and Lateral IMPRESSION: No radiographic evidence of acute cardiopulmonary disease Reading Location: [facility]
--- NOTE | 2024-12-11 10:35 | ED.VIS.DYS ---
HPI History of Present Illness Chief Complaint: Shortness of Breath Informant: patient Onset/Context/Timing Onset: Weeks Context: gradual Timing: Intermittent Current Severity: Gone Maximum Severity: Mild Worsened by: Nothing Relieved by: Nothing Associated Symptoms Negative for cough Chest Pain: Positive for None Narrative Narrative: Six 4-year-old female had a ID and received a stent in September. She is on the Brilinta blood thinner Brilinta. States she has had intermittent shortness of breath since that time. Initially was primarily at night she would wake up at night. She had a sleep apnea test and was told by one physician she has sleep apnea by another she does not. She uses now she is having shortness of breath randomly sometimes during the day. No chest pain. No significant leg swelling. No cough or fever. No hemoptysis. PE Risk Factors: Negative for Cancer, OCP + Smoking + > 35, Prior DVT or PE, Recent immobilization, Recent surgery or Recent travel Prior similar symptoms: Yes Recent Illness/Hospitalization: Yes PFSH PFS Medical History Atherosclerosis of coronary artery of redding heart without angina pectoris Myocardial infarct Home Medications ?Medication ?Instructions ?Recorded ?Last Taken ?Type aspirin 81 mg tablet,delayed 81 mg PO DAILY@0800 90 days #90 10/11/24 Unknown Rx release tabs atorvastatin 40 mg tablet 40 mg PO QHS 90 days #90 tabs 10/26/24 Unknown Rx lisinopril 2.5 mg tablet 2.5 mg PO DAILY 90 days #90 tabs 10/26/24 Unknown Rx metoprolol succinate 25 mg 25 mg PO DAILY 90 days #90 tabs 10/26/24 Unknown Rx tablet,extended release 24 hr (Toprol XL) ticagrelor 90 mg tablet (Brilinta) 90 mg PO BID 90 days #180 tabs 10/26/24 Unknown Rx cefdinir 300 mg capsule 300 mg PO Q12.TCU 12/11/24 Unknown History Allergy/AdvReac Type Severity Reaction Status Date / Time Penicillins Allergy Hives Verified 12/11/24 09:57 Sulfa (Sulfonamide AdvReac Diarrhea Verified 12/11/24 09:57 Antibiotics) Family History Father CAD (coronary artery disease) CABG age 68; CVA (cerebral vascular accident) Myocardial infarction Mother Cancer Cervical, Melanoma, Colon Surgical History History of carpal tunnel surgery of left wrist History of coronary artery stent placement (10/09/24) Social History Smoking Status: Current every day smoker tobacco type: cigarettes ROS ROS ED ROS Narrative Intermittent shortness of breath. No chest pain. No fever or cough. Constitutional Constitutional ED: Denies chills or fever(s) Eyes Eyes: Denies blurry vision ENT ENT ED: Denies ear pain Cardiovascular Cardiovascular: Denies chest pain Respiratory/Chest Respiratory/Chest: Reports dyspnea; Denies cough or sputum Gastrointestinal Gastrointestinal: Denies abdominal pain Genitourinary Genitourinary ED: Denies dysuria or hematuria Musculoskeletal Musculoskeletal: Denies arthralgias or back pain Integumentary Denies abscess Neurologic Neurologic: Denies headache(s) or paresthesias Psychiatric Psychiatric: Denies anxiety or depression Endocrine Endocrinology: Denies cold intolerance Hematologic/Lymphatic Hematologic/Lymphatic: Denies easy bleeding, easy bruising or lymphadenopathy Allergic/Immunologic Allergic/Immunologic ED: Denies mouth swelling, tongue swelling or urticaria EXAM Physical Exam Narrative Exam Narrative: Well-appearing 64-year-old female. Vital signs are stable and afebrile. Pulse ox 99% on room air no hypoxia. No distress. She is sitting upright in bed. Speaking in full sentences. Currently symptom-free. H EENT exam pupils round reactive light. Moist membranes. No facial droop. Neck nontender no lymphadenopathy. Lungs clear to auscultation bilaterally. Heart regular rate and rhythm rate about 75 no murmur. Chest wall and ribs nontender. Abdomen soft nontender. Moving all 4 extremities. Nontender no edema or cords. Calves are nontender. Back nontender. Neurologically she is awake and alert no focal motor deficits. Very benign exam. Const Vital Signs: 12/11/24 09:58 12/11/24 09:59 12/11/24 10:24 Temperature 98.7 F 98.7 F Temperature Source Oral Oral Pulse Rate 76 76 Respiratory Rate 18 18 Respiratory Effort Respiratory Depth Respiratory Pattern Blood Pressure 160/84 H 160/84 H Blood Pressure Mean 109 109 Pulse Ox 99 99 Oxygen Delivery Method Room Air Room Air Room Air 12/11/24 10:27 12/11/24 11:56 Temperature Temperature Source Pulse Rate 68 Respiratory Rate 25 H Respiratory Effort Normal Short of Breath Respiratory Depth Normal Respiratory Pattern Normal Blood Pressure 143/70 H Blood Pressure Mean 94 Pulse Ox 97 Oxygen Delivery Method Room Air Positive well nourished and well developed; Negative for cachectic, contractures or unkempt General Appearance ED: well developed and NAD; Negative for unkempt, cachectic, contractures or pallor Nutritional Appearance: Negative for cachectic HEENT Reports moist mucous membranes atraumatic; Negative for trauma or tenderness Eyes EOMs intact bilaterally Neck no lymphadenopathy, supple, no meningeal signs and no JVD General: Negative for tenderness or other Lymph Lymphatic: Negative for other Resp normal respiratory effort and clear to auscultation bilaterally Auscultation: Negative for rales, rhonchi, wheezes or diminished lung sounds Cardio regular rate, regular rhythm, S1 normal heart sound, S2 normal heart sound and no murmurs Rate: Negative for bradycardia, tachycardic or other Rhythm: Negative for abnormal rhythm GI non-tender, non-distended and no masses Auscultation: normoactive bowel sounds Palpation: soft; Negative for tender, guarding or rebound tenderness present Back/Spine no CVA tenderness and normal to inspection Extremity normal to inspection General Extremety ED: Negative for edema or tenderness General Extremity: Negative for edema Neuro oriented x3 and CN's II-XII intact bilaterally Sensorium / Orientation: alert, oriented to person, oriented to place and oriented to time; Negative for orientation impaired or confused Speech: speech normal Motor Exam: strength 5/5 throughout Psych mental status grossly normal Appearance: Negative for unkempt Attitude: No agitated Mood & Affect: Negative for depressed, anxious or tearful Thought Process: normal thought process Skin no wounds and skin turgor normal General Skin Exam: Negative for jaundice or pallor Lesions: no lesions Rashes: no rashes MDM MDM MDM Narrative Medical decision making narrative: 64-year-old female status post ID in September with a stent. Intermittent shortness of breath initially when she was sleeping. Now intermittently throughout the day. Currently symptom-free. Benign exam. She undergo cardiac workup. She is on the blood thinner Brilinta. She is having no chest pain or hemoptysis. Repeat exam patient is doing well at 12:26 PM. We went over her test results which were unremarkable including chest x-ray and EKG. She will be discharged home with outpatient follow-up. History & Record Review Discussion w/independent historian: Patient Additional record(s) reviewed:: Prior inpatient record, Prior outpatient record, Prior ED visit and Prior labs Lab Data Attestation: I reviewed the patient's lab results. Lab results narrative: CBC shows a white count of 7. H&H 13.7 and 42. Platelets 203. Electrolytes show a gap at 9. BUN and creatinine of 19 and 1.1. Glucose 110. Troponin 9. Chest x-ray no acute abnormality. Labs: Laboratory Results - last 24 hr 12/11/24 10:25 WBC 7.9 RBC 4.51 Hgb 13.7 Hct 42.0 MCV 93.1 MCH 30.4 MCHC 32.6 RDW Std Deviation 47.3 H RDW Coeff of Gerber 13.9 Plt Count 203 MPV 9.6 Immature Gran % (Auto) 0.400 Neut % (Auto) 69.1 Lymph % (Auto) 24.1 Rice % (Auto) 3.8 Eos % (Auto) 1.7 Baso % (Auto) 0.9 Absolute Neuts (auto) 5.4 Absolute Lymphs (auto) 1.90 Nucleated RBC % 0 Reactive Lymphocytes 1+ Platelet Estimate A Sodium 138 Potassium 3.9 Chloride 108 H Carbon Dioxide 21.0 Anion Gap 9 BUN 19 H Creatinine 1.18 H Estim Creat Clear Calc 49.98 Est GFR (MDRD) Af Amer 59 L Est GFR (MDRD) Non-Af 49 L BUN/Creatinine Ratio 16.1 Glucose 110 H Calcium 9.4 Troponin I High Sens 9 Radiography Chest X-Ray - ED: 2 View, Read by ED Physician, Normal, Heart, Lungs, Mediastinum, Bony Structures, No Acute Disease and Chronic Changes Diagnostic Testing: Clinical Impression(s) from Imaging Studies Chest X-Ray 12/11/24 10:32 IMPRESSION: No radiographic evidence of acute cardiopulmonary disease Reading [facility] Chest x-ray, 2 views, AP and lateral, interpreted both by myself and the radiologist shows no acute abnormality. Normal cardiac silhouette. Normal lung jimenez. No pneumonia. No effusions. Rhythm Strip Rhythm Strip: Sinus Rhythm Rate: 64 Ectopy: None EKG Initial EKG: Attestation: I personally reviewed and interpreted this EKG as follows: Interpretation: Sinus Rhythm and No Acute Injury Pattern Comments: Normal sinus rhythm rate of 64 no acute signs of ID or ischemia. No dysrhythmia. No S1Q3T3. Discharge Plan Triage Chief Complaint: Shortness of Breath ED Provider: Jak Sheikh Dx/Rx/DC Orders Clinical Impression: Acute dyspnea Instructions: ED Dyspnea Prescriptions: No Action lisinopril 2.5 mg tablet 2.5 mg PO DAILY 90 Days Qty: 90 3RF metoprolol succinate [Toprol XL] 25 mg tablet extended release 24 hr 25 mg PO DAILY 90 Days Qty: 90 3RF Brilinta 90 mg tablet 90 mg PO BID 90 Days Qty: 180 3RF atorvastatin 40 mg tablet 40 mg PO QHS 90 Days Qty: 90 3RF aspirin 81 mg Tablet,Delayed Release (Dr/Ec) 81 mg PO DAILY@0800 90 Days Qty: 90 3RF cefdinir 300 mg capsule 300 mg PO Q12.TCU Primary Care Provider: Florin Bailey Referrals: Florin Bailey DO [Primary Care Provider] - 3-5 Days Activity Restrictions/Additional Instructions: Your labs, EKG and chest x-ray today all looked good. Follow-up with your primary care provider for further evaluation. Print Language: Niuean Disposition Disposition: Home, Self Care
[2024-12-11 10:36] LABS: Differential Indicated SCAN CRITERIA MET
[2024-12-11 10:53] LABS: Anion Gap 9 (5-15); BUN 19 mg/dL (7-18); BUN/Creat Ratio 16.1 RATIO (10-20); Calcium,Total 9.4 mg/dL (8.5-10.1); Chloride 108 mmol/L (98-107); Creatinine, Serum 1.18 mg/dL (0.55-1.02); EST Glomerular Filtration Rate 49 mL/min (>60); Est Glom Filt Rate - Afr Amer 59 mL/min (>60); Estimated Creatinine Clearance 49.98 ml/min; Glucose 110 mg/dL (74-106); Potassium 3.9 mmol/L (3.5-5.1); Sodium Level 138 mmol/L (136-145); Troponin-I HS 9 pg/mL (3.0-54.0)
[2024-12-11 11:07] LABS: Platelet Estimate A (ADEQ); Reactive Lymphocyte 1+
[2024-12-11 11:56] VITALS: BP 143/70; PULSE 68; RESP 25; O2SAT 97
== END 2024-12-11 12:40 | disposition home or self-care (01) ==
PROVIDERS: Emergency Provider Emergency Medicine; Visit Provider Emergency Medicine
DX: R06.02 Shortness of breath (principal); I25.10 Atherosclerotic heart disease of native coronary artery without angina pectoris; I25.2 Old myocardial infarction; F17.210 Nicotine dependence, cigarettes, uncomplicated; Z95.5 Presence of coronary angioplasty implant and graft; Z79.02 Long term (current) use of antithrombotics/antiplatelets; Z79.82 Long term (current) use of aspirin; Z79.899 Other long term (current) drug therapy
CPT/HCPCS: 71046; 80048; 84484; 85025; 93005; 99283; A4216

== ENCOUNTER → 2025-01-08 | Outpatient (CLI) | payer MEDICARE, SELFPAY ==
[2024-11-29 09:23] VITALS: BMI 25.9
--- NOTE | 2025-01-08 16:07 | FLU_PTH ---
PATIENT: MIGUEL MATHIAS LOC: [facility] U#:[id number] AGE/SX: 64/F ROOM: RE01/08/[address]: Dr. Roxanne Olivas MD : 1960 BED: DIS: 01/08/2025 SPEC #: [id number] RECD: 01/09/25 08:28 STATUS: CALVIN REKarly #: [id number] EDITH: 01/08/25 16:[address]: Roxanne Olivas DEPT: CYTOLOGY RECD BY: Gama Moss ENTERED: 01/09/25 08:28 SP TYPE: Fluid OTHR DR: Dr. Florin Bailey, DO Tissues: A - Urine Procedures: Special Stain Group II Surgery Specimen Level IV Cytospin Fluid HEADER OPERATION: Not noted PRE-OP DIAGNOSIS: Gross hematuria TISSUE SUBMITTED: A- Urine for cytology DIAGNOSIS CYTOLOGY Urine, cytology:Negative for malignant cellsNumerous benign squamous cells Elva hannah MD, 01/09/2025 CYTOLOGY STUDY Slides are reviewed. CYTOLOGY GROSS A. Received is 20 ml of gold-cloudy fluid labeled with the patient's name and and designated per the requisition as urine. Submitted for cytology preparation. Mr 01/09/2025 CPT: 12729,TC:4
[2025-01-08 16:10] LABS: Cytology, Body Fluid / CSF SEE PATHOLOGY REPORT
== END | disposition home or self-care (01) ==
LOC: LABSPEC 16:05
PROVIDERS: Visit Provider Urology
DX: R31.0 Gross hematuria (principal)
CPT/HCPCS: 88108; 88305; 88313

== ENCOUNTER → 2025-01-09 | Outpatient (CLI) | payer MEDICARE, SELFPAY ==
[2024-11-29 09:23] VITALS: BMI 25.9
[2025-01-09] MEDS: Zaleplon 5 MG Capsule 10 MG PO (21:40)
== END | disposition home or self-care (01) ==
LOC: SL 19:59
PROVIDERS: Visit Provider Nurse Practitioner Family
DX: G47.33 Obstructive sleep apnea (adult) (pediatric) (principal)
CPT/HCPCS: 95810

== ENCOUNTER → 2025-01-24 | Outpatient (CLI) | payer MEDICARE, SELFPAY ==
[2024-11-29 09:23] VITALS: BMI 25.9
--- NOTE | 2025-01-24 08:56 | CT_ITS ---
PROCEDURE: CT ABD/PELVIS W/WO CONTRAST 01/24/2025 REASON FOR EXAM: HEMATURIA Recurrent UTI. TECHNIQUE: Abdomen and pelvis CT with intravenous contrast. Coronal and Sagittal reconstruction series were provided. PATIENT PREPARATION: Per protocol ORAL CONTRAST TYPE: None. CONTRAST: Isovue-300 VOLUME: 90 mL One or more dose reduction techniques were used (e.g., Automated exposure control, adjustment of the mA and/or kV according to patient size, use of iterative reconstruction technique. RADIATION DOSE SUMMARY: CTDlvol: 19 mGy DLP: 3026.31 mGycm COMPARISON: None FINDINGS: Lung bases: Calcified granuloma in the posterior lateral aspect of the left lower lobe. Liver: Unremarkable Gallbladder: Unremarkable Spleen: Scattered calcified splenic granulomas. Pancreas: Normal size without evidence of mass surrounding inflammation or ductal dilation. Adrenals: Unremarkable Kidneys: Normal renal sizes. No hydronephrosis. Bladder: Unremarkable Reproductive Organs: Normal uterine size and contour. Ovaries are unremarkable. Bowel: No bowel obstruction. Appendix: A small appendicolith is present. No surrounding inflammatory process identified. Lymph nodes: No suspicious lymph node enlargement. Vasculature: The abdominal aorta and IVC are normal. Peritoneum / Retroperitoneum: Unremarkable Bones: Degenerative changes of the spine. No acute abnormality is seen. Reading Location: [place] [id number]
== END | disposition home or self-care (01) ==
LOC: CT 08:47
PROVIDERS: Referring Provider Urology; Visit Provider Urology
DX: R31.9 Hematuria, unspecified (principal)
CPT/HCPCS: 74178; Q9967

== ENCOUNTER 2025-02-04 10:26 | Inpatient (IN) | payer MEDICARE, SELFPAY ==
[2024-11-29 09:23] VITALS: BMI 25.9
[2025-02-04] VITALS (9 sets, daily range): BP systolic 95–136; BP diastolic 55–84; PULSE 68–88; RESP 13–18; TEMP 36.3–36.7; O2SAT 94–100; BMI 25.4; BMI 25.3
--- NOTE | 2025-02-04 11:00 | EKG12_ITS ---
Test Reason : CP Blood Pressure : */* mmHG Vent. Rate : 73 BPM Atrial Rate : 73 BPM P-R Int : 138 ms QRS Dur : 62 ms QT Int : 352 ms P-R-T Axes : * 129 96 degrees QTcB Int : 387 ms Normal sinus rhythm Nonspecific ST/T wave changes Limb leads reversed Abnormal ECG Confirmed by Jorge Leavitt ([id number]), editor greeting card LISETTE PINEDA ([id number]) on 02/05/2025 11:26:29 AM Referred By: DEISY Confirmed By: Jorge Leavitt
--- NOTE | 2025-02-04 11:01 | ED.VIS.CHEST ---
HPI History of Present Illness Chief Complaint: Chest Pain Informant: patient and EMS Narrative Narrative: 64-year-old female has been having chest discomfort for 30-34 hours, woke her up in the middle of the night night before last. She states it was off and on all day yesterday and then this morning she woke up and it was gone, but she drinks coffee and suddenly it occurred again. It feels like burning, indigestion mid chest no radiation, but she also has a pain that she cannot describe otherwise that is in the same area. She states she was going to drive her cell to the ER but then the pain seemed to get worse while she was driving she turned around and went home and called EMS. She took some aspirin prior to coming here, she is on that and Brilinta since getting a stent in September, she states she had different symptoms with that. EMS gave her nitroglycerin and it helped a lot of her symptoms although she was still belching, now some of it is coming back. She denies any other symptoms. No diaphoresis, nausea, vomiting, palpitations, lightheadedness, syncope or near syncope, or radiation to the jaw, neck, back, arms. [facility] Medical History UTI (urinary tract infection) Atherosclerosis of coronary artery of [place] heart without angina pectoris Myocardial infarct Home Medications ?Medication ?Instructions ?Recorded ?Last Taken ?Type aspirin 81 mg tablet,delayed 81 mg PO DAILY@0800 90 days #90 10/11/24 Unknown Rx release tabs atorvastatin 40 mg tablet 40 mg PO QHS 90 days #90 tabs 10/26/24 Unknown Rx lisinopril 2.5 mg tablet 2.5 mg PO DAILY 90 days #90 tabs 10/26/24 Unknown Rx metoprolol succinate 25 mg 25 mg PO DAILY 90 days #90 tabs 10/26/24 Unknown Rx tablet,extended release 24 hr (Toprol XL) ticagrelor 90 mg tablet (Brilinta) 90 mg PO BID 90 days #180 tabs 10/26/24 Unknown Rx Allergy/AdvReac Type Severity Reaction Status Date / Time Penicillins Allergy Hives Verified 02/04/25 10:29 Sulfa (Sulfonamide AdvReac Diarrhea Verified 02/04/25 10:29 Antibiotics) Family History Father CAD (coronary artery disease) CABG age 68; CVA (cerebral vascular accident) Myocardial infarction Mother Cancer Cervical, Melanoma, Colon Surgical History History of carpal tunnel surgery of left wrist History of coronary artery stent placement (10/09/24) Social History (Updated 02/04/25 @ 11:37 by Bonnie Pablo) household members: spouse housing: house Smoking Status: Former smoker second hand exposure: No ROS ROS ED Constitutional Constitutional ED: Denies chills or fever(s) Eyes Eyes: Denies change in vision or diplopia ENT ENT ED: Denies rhinorrhea or sore throat Cardiovascular Cardiovascular: Reports as per HPI and chest pain; Denies palpitations Respiratory/Chest Respiratory/Chest: Denies cough or dyspnea Gastrointestinal Gastrointestinal: Denies abdominal pain, diarrhea, nausea or vomiting Genitourinary Genitourinary ED: Denies dysuria or hematuria Musculoskeletal Musculoskeletal: Denies back pain or neck pain Integumentary Denies abscess or rash Neurologic Neurologic: Denies headache(s), paresthesias or weakness Psychiatric Psychiatric: Denies anxiety or suicidal thoughts EXAM Physical Exam Const Vital Signs: 02/04/25 10:27 02/04/25 11:37 02/04/25 11:37 Temperature 97.6 F L Temperature Source Oral Pulse Rate 84 74 Respiratory Rate 16 18 Respiratory Effort Blood Pressure 124/70 H 104/69 Blood Pressure Mean 88 80 Pulse Ox 98 100 98 Oxygen Delivery Method Room Air Room Air 02/04/25 11:37 02/04/25 12:00 Temperature Temperature Source Pulse Rate 77 Respiratory Rate 13 Respiratory Effort Normal Non-Labored Blood Pressure 95/63 Blood Pressure Mean 73 Pulse Ox 98 Oxygen Delivery Method Positive well nourished and well developed General Appearance ED: well developed and NAD HEENT Reports moist mucous membranes normocephalic and atraumatic Eyes PERRL and EOMs intact bilaterally Neck full ROM and supple Resp normal respiratory effort and clear to auscultation bilaterally Cardio regular rate, regular rhythm and no murmurs GI non-tender and non-distended Auscultation: normoactive bowel sounds Palpation: soft Back/Spine no CVA tenderness General Back: other FROM Extremity normal to inspection General Extremety ED: Negative for edema, pulses abnormal or tenderness General Extremity: Negative for edema or pulses abnormal Neuro oriented x3, CN's II-XII intact bilaterally and no sensory deficits noted Sensorium / Orientation: awake and alert Motor Exam: strength 5/5 throughout Skin no rashes or lesions noted and no wounds Heart Score History: Moderately Suspicious ECG: Nonspecific Repolarization Age: >/= 65 years Risk Factors: >/= 3 Risk Factors or History of CAD Score: 6 MDM MDM MDM Narrative Medical decision making narrative: Patient's EKG appears to show some ST depressions, and interestingly a small/shallow ST elevation all in the lateral lead not reciprocal. In the meantime tried a GI cocktail, since the symptoms suggest GI etiology. On reevaluation, her discomfort is completely gone. Her troponin is elevated, suggesting an NSTEMI. I discussed with Dr. Leavitt with cardiology; he agrees, stating in a look like there were some lead reversal reversing 1 and aVL, we repeated the EKG, paying special attention not to reverse these leads, and there is no ST elevation on the repeat EKG, but she does have some persistent precordial lateral depressions. This is in context of her being in pain-Free. Patient has been n.p.o. except for a small amount of coffee this morning, she is going to the [facility] at some point today per cardiology, and I discussed with hospitalist for admission to PCU. We started heparin in the ER. Lab Data Attestation: I reviewed the patient's lab results. Labs: Laboratory Results - last 24 hr 02/04/25 11:08 WBC 10.7 RBC 3.87 L Hgb 12.3 Hct 37.0 MCV 95.6 MCH 31.8 MCHC 33.2 RDW Std Deviation 49.9 H RDW Coeff of Gerber 14.2 Plt Count 223 MPV 9.9 Immature Gran % (Auto) 0.500 Neut % (Auto) 77.1 H Lymph % (Auto) 15.1 L Collier % (Auto) 4.9 Eos % (Auto) 1.5 Baso % (Auto) 0.9 Absolute Neuts (auto) 8.2 H Absolute Lymphs (auto) 1.61 Nucleated RBC % 0 Sodium 140 Potassium 4.1 Chloride 107 Carbon Dioxide 21.0 Anion Gap 12 BUN 19 Creatinine 1.01 Estim Creat Clear Calc 53.28 Est GFR (MDRD) Non-Af 61 BUN/Creatinine Ratio 18.6 Glucose 105 H Calcium 9.2 Troponin T High Sens 307 H* Radiography Diagnostic Testing: Clinical Impression(s) from Imaging Studies Chest X-Ray 02/04/25 11:10 IMPRESSION: No acute cardio pulmonary process is identified radiographically. Arteriosclerotic vascular disease of the aorta is noted. A levoscoliosis of the thoracic spine is seen. Reading Location: [facility] Rhythm Strip Rhythm Strip: Sinus Rhythm Rate: 73 Ectopy: None EKG Initial EKG: Attestation: I personally reviewed and interpreted this EKG as follows: Interpretation: Sinus Rhythm, No Acute Injury Pattern and S-T Depression (V3-6, 1-2mm; 0.5mm CJ lead I only) Prior EKG tracings: available for review (12/11/24) Prior: Changed Follow-up EKG: Attestation: I personally reviewed and interpreted this EKG as follows: Interpretation: Sinus Rhythm and S-T Depression (similar precordial sept-lat) Prior: Unchanged Management Discussion w/another healthcare provider: Hospitalist and [facility] [employer] [facility] (cardiology dr. leavitt) Discharge Plan Triage Chief Complaint: Chest Pain ED Provider: Orlando Abdi Dx/Rx/DC Orders Clinical Impression: Non-ST elevation [place] (NSTEMI) Prescriptions: No Action lisinopril 2.5 mg tablet 2.5 mg PO DAILY 90 Days Qty: 90 3RF metoprolol succinate [Toprol XL] 25 mg tablet extended release 24 hr 25 mg PO DAILY 90 Days Qty: 90 3RF Brilinta 90 mg tablet 90 mg PO BID 90 Days Qty: 180 3RF atorvastatin 40 mg tablet 40 mg PO QHS 90 Days Qty: 90 3RF aspirin 81 mg Tablet,Delayed Release (Dr/Ec) 81 mg PO DAILY@0800 90 Days Qty: 90 3RF Primary Care Provider: Florin Bailey Referrals: Florin Bailey DO [Primary Care Provider] - Print Language: [place] Leone[place] Disposition Disposition: Acute Care Hospital [facility] [place]
--- NOTE | 2025-02-04 11:10 | RAD_ITS ---
PROCEDURE: CHEST 1 VIEW (PORTABLE) 02/04/2025 REASON FOR EXAM: CHEST PAIN TECHNIQUE: Frontal view of the chest. COMPARISON: Chest x-ray study dated 12/11/2024 FINDINGS: Heart size and configuration within normal limits. Pulmonary vasculature and hilar structures are unremarkable. Trachea is midline. Arteriosclerotic vascular disease of the aorta is noted. Lungs are expanded and clear without evidence of atelectasis, consolidation, effusion or pneumonic infiltrate. Cardiac leads overlie the chest. A levoscoliosis of the lower thoracic spine is seen. RAD/Chest 1 View (Portable) IMPRESSION: No acute cardio pulmonary process is identified radiographically. Arteriosclerotic vascular disease of the aorta is noted. A levoscoliosis of the thoracic spine is seen. Reading Location: [id number]
[2025-02-04] MEDS: Mag Hydrox/Al Hydrox/Simeth 30 ML UDC PO (11:11)
[2025-02-04] MEDS: Lidocaine 2% Viscous15 ML UDC 15 ML PO (11:11)
[2025-02-04 11:30] LABS: Absolute Lymphocyte Count 1.61 X10^3/uL (0.83-4.51); Absolute Neutrophil Count 8.2 X10^3/uL (2.0-7.7); Basophil% 0.9 % (0-1); Eosinophil# 0.16 X10^3/uL; Eosinophils% 1.5 % (0-5); Hemoglobin 12.3 g/dL (12.0-15.0); Lymphocyte # 1.61 X10^3/ul (0.83-4.51); Lymphocyte % 15.1 % (19-41); Mean Corp Hgb Conc 33.2 g/dL (32-36); Mean Corpuscular Hgb 31.8 pg (27.0-32.0); Mean Corpuscular Volume 95.6 fL (81-99); Mean Platelet Vol. 9.9 fl (6.2-12.0); Monocyte# 0.52 X10^3/uL; Monocyte% 4.9 % (0-10); NRBC Flagged by Analyzer 0 % (0-5); Neutrophil # 8.24 X10^3/uL (2.7-7.7); Neutrophil % 77.1 % (47-70); Platelet Count 223 K/mm3 (150-450); RBC Distribution Width CV 14.2 % (11.6-14.6); RBC Distribution Width SD 49.9 fl (35.1-43.9); Red Blood Count 3.87 M/mm3 (4.2-5.4); White Blood Count 10.7 K/mm3 (4.4-11.0)
[2025-02-04 12:17] LABS: Anion Gap 12 (5-15); BUN 19 mg/dL (4-19); BUN/Creat Ratio 18.6 RATIO (10-20); Calcium,Total 9.2 mg/dL (7.6-11.0); Chloride 107 mmol/L (98-108); Creatinine, Serum 1.01 mg/dL (0.70-1.20); EST Glomerular Filtration Rate 61 (>60); Estimated Creatinine Clearance 53.28 ml/min (50-250); Glucose 105 mg/dL (70-99); Potassium 4.1 mmol/L (3.3-5.1); Sodium Level 140 mmol/L (133-145); Troponin T High Sensitivity 307 ng/L (<=14)
--- NOTE | 2025-02-04 12:31 | EKG12_ITS ---
Test Reason : REPEAT Blood Pressure : */* mmHG Vent. Rate : 89 BPM Atrial Rate : 89 BPM P-R Int : 148 ms QRS Dur : 62 ms QT Int : 354 ms P-R-T Axes : 46 49 82 degrees QTcB Int : 430 ms Normal sinus rhythm Nonspecific ST abnormality Abnormal ECG Confirmed by Jorge Leavitt ([id number]), newspaper copy editor LISETTE PINEDA ([id number]) on 02/05/2025 11:27:29 AM Referred By: Confirmed By: Jorge Leavitt
[2025-02-04] MEDS: Heparin Injection (Vial) 5,000 UNIT/ML VIAL 4000 UNIT IV (12:50)
[2025-02-04] MEDS: HEPARIN/D5w 25,000 UNITS 25,000 UNITS/250 ML IV.SOLN. 9 UNITS CONT INF (12:54)
--- NOTE | 2025-02-04 12:58 | PCM.HP.STD ---
HPI - General General Date of Admission: 02/04/25 Date of Service: 02/04/25 Chief Complaint: chest pain HPI Narrative MIGUEL MATHIAS, is a 64 F with a PMH as outlined who presents via the ED on 02/04/2025 with a complaint of chest pain. The chest pain woke her up in the middle of the night the day before admission. It was episodic the entire day before admission and says she woke up on the day of presentation with no chest pain. However, she drank some coffee and the chest pain recurred. She said it was burning, mid chest, with no aggravating or relieving factors. Pain worsened with driving. She did have 2 stents placed in September 2024. She called the EMS to bring her into the ED. She denied any shortness of breath, lightheadedness, dizziness, nausea vomiting or any other symptoms. She does continue to smoke about 1/2 pack daily. Previous symptoms otherwise negative. Vitals in the ED were blood pressure 101/84, pulse rate of 82 and temperature of 98 Fahrenheit. Respirate rate was 13. Pulse ox was 98% on room air. CBC showed hemoglobin of 12.3 with WBC of 10.7 and platelets of 223. INR was 1. Chemistry showed sodium of 140 with potassium of 4.1 and bicarb of 21. Creatinine was 1.01. Initial troponin was 307. EKG showed some ST depression in the lateral leads. Cardiology was consulted and she is to be taken emergently to the cardiac [facility] to have cardiac cath reevaluated for in-stent stenosis in the setting of non-STEMI. [facility] Medical History UTI (urinary tract infection) Atherosclerosis of coronary artery of [place] heart without angina pectoris Myocardial infarct Home Medications ?Medication ?Instructions ?Recorded ?Last Taken ?Type aspirin 81 mg tablet,delayed 81 mg PO DAILY@0800 90 days #90 10/11/24 Unknown Rx release tabs atorvastatin 40 mg tablet 40 mg PO QHS 90 days #90 tabs 10/26/24 Unknown Rx lisinopril 2.5 mg tablet 2.5 mg PO DAILY 90 days #90 tabs 10/26/24 Unknown Rx metoprolol succinate 25 mg 25 mg PO DAILY 90 days #90 tabs 10/26/24 Unknown Rx tablet,extended release 24 hr (Toprol XL) ticagrelor 90 mg tablet (Brilinta) 90 mg PO BID 90 days #180 tabs 10/26/24 Unknown Rx Allergy/AdvReac Type Severity Reaction Status Date / Time Penicillins Allergy Hives Verified 02/04/25 10:29 Sulfa (Sulfonamide AdvReac Diarrhea Verified 02/04/25 10:29 Antibiotics) Family History Father CAD (coronary artery disease) CABG age 68; CVA (cerebral vascular accident) Myocardial infarction Mother Cancer Cervical, Melanoma, Colon Surgical History History of carpal tunnel surgery of left wrist History of coronary artery stent placement (10/09/24) Social History household members: spouse housing: house Smoking Status: Current every day smoker tobacco type: cigarettes second hand exposure: No ROS Review of Systems ROS Unobtainable: Denies due to encephalopathy Constitutional Constitutional: Denies anorexia, chills, fatigue, fever(s), malaise or weakness Eyes Eyes: Denies change in vision ENT HEENT: Denies dysphagia, headache(s) or sore throat Cardiovascular Cardiovascular: Reports chest pain; Denies dyspnea on exertion, edema, lightheadedness, orthopnea, palpitations, paroxysmal nocturnal dyspnea, rapid heart rate or syncope Respiratory/Chest Respiratory/Chest: Denies cough, dyspnea, shortness of breath at rest or shortness of breath with exertion Gastrointestinal Gastrointestinal: Denies abdominal pain, constipation, diarrhea, nausea or vomiting Genitourinary Genitourinary: Denies burning urination or dysuria Musculoskeletal Musculoskeletal: Denies back pain Neurologic Neurologic: Denies confusion, dizziness, focal weakness, headache(s), numbness or paresthesias Psychiatric Psychiatric: Denies anxiety or depression Endocrine Endocrinology: Denies cold intolerance Vital Signs Vital Signs Vital Signs: 02/04/25 10:27 02/04/25 11:37 02/04/25 11:37 Temperature 97.6 F L Temperature Source Oral Pulse Rate 84 74 Respiratory Rate 16 18 Respiratory Effort Blood Pressure 124/70 H 104/69 Blood Pressure Mean 88 80 Pulse Ox 98 100 98 Oxygen Delivery Method Room Air Room Air 02/04/25 11:37 02/04/25 12:00 Temperature Temperature Source Pulse Rate 77 Respiratory Rate 13 Respiratory Effort Normal Non-Labored Blood Pressure 95/63 Blood Pressure Mean 73 Pulse Ox 98 Oxygen Delivery Method Weight Weight: 162 lb 4.163 oz Body Mass Index (BMI) 25.4 Physical Exam Const alert, oriented x3 and no apparent distress General Appearance: cooperative HEENT normocephalic, head/scalp atraumatic, hearing grossly normal bilaterally, moist oral mucous membranes and oropharynx normal Mouth: oral and palatal mucosa normal Eyes PERRL, EOMs intact bilaterally and conjunctivae normal Neck no lymphadenopathy and supple Resp normal respiratory effort, no retractions, no use of accessory muscles and clear to auscultation bilaterally Cardio regular rate, regular rhythm, S1 normal heart sound, S2 normal heart sound and no murmurs GI normal to inspection, nondistended, normoactive bowel sounds, soft to palpation, non-tender and non-distended Extremity normal to inspection, full ROM and no clubbing, cyanosis or edema Neuro oriented x3, CN's II-XII intact bilaterally, moves all extremities and no focal motor deficits Sensorium / Orientation: awake and alert Speech: speech normal Motor Exam: strength 5/5 throughout Psych affect normal Results Lab / Micro Data 02/04/25 11:08 02/04/25 11:08 Labs: Laboratory Results - last 24 hr 02/04/25 11:08: WBC 10.7, RBC 3.87 L, Hgb 12.3, Hct 37.0, MCV 95.6, MCH 31.8, MCHC 33.2, RDW Std Deviation 49.9 H, RDW Coeff of Gerber 14.2, Plt Count 223, MPV 9.9, Immature Gran % (Auto) 0.500, Neut % (Auto) 77.1 H, Lymph % (Auto) 15.1 L, Sully % (Auto) 4.9, Eos % (Auto) 1.5, Baso % (Auto) 0.9, Absolute Neuts (auto) 8.2 H, Absolute Lymphs (auto) 1.61, Nucleated RBC % 0, Sodium 140, Potassium 4.1, Chloride 107, Carbon Dioxide 21.0, Anion Gap 12, BUN 19, Creatinine 1.01, Estim Creat Clear Calc 53.28, Est GFR (MDRD) Non-Af 61, BUN/Creatinine Ratio 18.6, Glucose 105 H, Calcium 9.2, Troponin T High Sens 307 H* Rhythm Strip Rhythm Strip: Sinus Rhythm Rate: 73 Ectopy: None Imaging Radiology Impression Chest X-Ray 02/04/25 11:10 IMPRESSION: No acute cardio pulmonary process is identified radiographically. Arteriosclerotic vascular disease of the aorta is noted. A levoscoliosis of the thoracic spine is seen. Reading Location: [id number] Assessment & Plan Assessment/Plan (1) Non-ST elevation [place] (NSTEMI): PLAN: Plan #nonstemi Admitted with a complaint of chest pain. Initial troponin was 307. EKG showed some ST depression in the lateral leads. Cardiology was consulted. Patient does have a history of CAD status post stents back in September 2024. On heparin drip. Has been compliant with her aspirin and Brilinta at home. However she does still continue to smoke. On high intensity statin. For emergent cardiac cath today. Further management will be predicated on the findings of the cardiac cath. Continue lisinopril and metoprolol. #Nicotine dependence: Counseled to quit. Nicotine patch 14 mg daily #Hyperlipidemia: On statin DVT prophylaxis: Not indicated as patient on heparin drip. CODE STATUS: Full code Patient counseled extensively about different types of CODE STATUS including full code, DNR CCA and DNR CCA. Patient elects to be full code. Total [id number] time 16 minutes. Charges/Coding Visit Charges Inpatient E&M: 92905 Init Hosp L3 Procedures Hospitalists Procedures: 77722 Advncd Care Plan 30 Min
--- NOTE | 2025-02-04 13:11 | PCM.CONS.C ---
Assessment & Plan Assessment/Plan (1) Non-ST elevation [place] (NSTEMI): PLAN: Patient presented with chest discomfort that has been episodic over the last 36 to 48 hours. EKG shows some subtle ST segment depressions anteriorly troponins elevated at 300. The patient has a known history of coronary disease status post stenting of the LAD with jailing of the ostium of the small diagonal branch September 2024. Given these findings and symptoms occurring at rest even though they are not identical to her previous angina I would recommend that she proceed with left heart catheterization urgently. The procedure risk/benefit and alternatives were explained to the patient she voiced understanding and agrees to proceed. Dr. Galindo will perform the catheterization. (2) Hematuria: QUALIFIERS: Hematuria type: unspecified type Qualified Code(s): R31.9 - Hematuria, unspecified PLAN: Patient reports she is scheduled to have bladder biopsy done this due to some hematuria. She has had multiple recurrent UTIs. Hemoglobin is stable at 12.3 and renal function is normal. (3) Hyperlipidemia: QUALIFIERS: Hyperlipidemia type: mixed hyperlipidemia Qualified Code(s): E78.2 - Mixed hyperlipidemia PLAN: Patient's lipids were reevaluated December 2024. Total cholesterol was 141 LDL was 74 triglycerides 117 on atorvastatin 40 mg daily. Patient has continued on the atorvastatin 1 option may be to switch her to rosuvastatin 40 mg daily when she is reevaluated in the outpatient setting. (4) History of coronary artery stent placement: PLAN: Patient status post 2.75 mm stent in the proximal LAD September [address] Galindo. The diagonal was predilated prior to that but the stent is across the ostium of the diagonal. PLAN: Plan 1. Recommend the patient proceed with urgent left heart catheterization today. 2. Will address lipids in the outpatient setting by considering to switch to rosuvastatin 40 mg daily.. 3. Further recommendations once results of the catheterization are known. HPI Consult Data Date of Consult: 02/04/25 HPI Narrative Reason for Consultation: Recurrent chest pain with EKG changes and positive troponin HPI Narrative: MIGUEL MATHIAS, is a 64 F who presents with a history of chest discomfort that awoke her from sleep night before last. She had a second episode yesterday these were relatively short-lived. She then drank coffee this morning and had recurrence of the symptoms although they were not identical to what she presented with with her STEMI in September 2024 they were similar. The patient came to the emergency room where her first troponin was 300 and her EKG showed nonspecific ST segment depressions in the anterior lateral leads that were different from her previous EKG. Currently the patient is on heparin IV and responded to nitroglycerin sublingual. She is pain-free at this point in time. She does have a history of hematuria and had a cystoscope which was remarkable for some abnormalities in her bladder. She was scheduled to have bladder biopsy done this coming . She is maintaining her Brilinta and aspirin and has not missed any doses. The patient's LV function EF was 50% prior to her last discharge from the hospital. She had stage I diastolic dysfunction and severely hypokinetic mid anterior wall and apex. There was no significant valvular abnormality. Her lipids showed a total cholesterol of 226 HDL 37 LDL 116 triglycerides 146. I am not certain of the medical dose she was on at the time those lipids were done in September 2024. Currently she is on atorvastatin 40 mg daily. PENDING SALE TO [facility] Medical History UTI (urinary tract infection) Atherosclerosis of coronary artery of [place] heart without angina pectoris Myocardial infarct Home Medications ?Medication ?Instructions ?Recorded ?Last Taken ?Type aspirin 81 mg tablet,delayed 81 mg PO DAILY@0800 90 days #90 10/11/24 Unknown Rx release tabs atorvastatin 40 mg tablet 40 mg PO QHS 90 days #90 tabs 10/26/24 Unknown Rx lisinopril 2.5 mg tablet 2.5 mg PO DAILY 90 days #90 tabs 10/26/24 Unknown Rx metoprolol succinate 25 mg 25 mg PO DAILY 90 days #90 tabs 10/26/24 Unknown Rx tablet,extended release 24 hr (Toprol XL) ticagrelor 90 mg tablet (Brilinta) 90 mg PO BID 90 days #180 tabs 10/26/24 Unknown Rx Allergy/AdvReac Type Severity Reaction Status Date / Time Penicillins Allergy Hives Verified 02/04/25 10:29 Sulfa (Sulfonamide AdvReac Diarrhea Verified 02/04/25 10:29 Antibiotics) Family History Father CAD (coronary artery disease) CABG age 68; CVA (cerebral vascular accident) Myocardial infarction Mother Cancer Cervical, Melanoma, Colon Surgical History History of carpal tunnel surgery of left wrist History of coronary artery stent placement (10/09/24) Social History household members: spouse housing: house Smoking Status: Current every day smoker tobacco type: cigarettes second hand exposure: No ROS Constitutional Constitutional: Reports systems reviewed and no addt'l complaints, except as documented Eyes Eyes: Reports systems reviewed and no addt'l complaints, except as documented ENT HEENT: Reports systems reviewed and no addt'l complaints, except as documented Cardiovascular Cardiovascular: Reports as per HPI Respiratory/Chest Respiratory/Chest: Reports as per HPI Gastrointestinal Gastrointestinal: Reports systems reviewed and no addt'l complaints, except as documented Genitourinary Genitourinary: Reports as per HPI Musculoskeletal Musculoskeletal: Reports systems reviewed and no addt'l complaints, except as documented Integumentary Integumentary: Reports systems reviewed and no addt'l complaints, except as documented Neurologic Neurologic: Reports systems reviewed and no addt'l complaints, except as documented Endocrine Endocrinology: Reports systems reviewed and no addt'l complaints, except as documented Hematologic/Lymphatic Hematologic/Lymphatic: Reports as per HPI Allergic/Immunologic Allergic/Immunologic: Reports systems reviewed and no addt'l complaints, except as documented Physical Exam Const alert and oriented x3 HEENT normocephalic Eyes EOMs intact bilaterally Neck supple, no JVD and no carotid bruits Chest inspection of chest normal Resp normal respiratory effort and clear to auscultation bilaterally Cardio regular rate, regular rhythm, S1 normal heart sound and S2 normal heart sound Heart Sounds: S1 normal, S2 normal and murmur systolic II/ soft right sternal border; Negative for click or gallop Peripheral Pulses: radial pulses present right 2+ GI soft to palpation Extremity no pedal edema Psych mental status grossly normal Risk Stratification Risk Stratification Applicable: Yes Age >/= 65: Yes >/= 3 CAD Risk Factors (HTN, HLD, DM, family hx of CAD, or current smoker): Yes Aspirin Use in the Past 7 Days: Yes Severe Angina (>/= episodes in 24 hours): Yes EKG ST Changes >/= 0.5mm: Yes Positive Cardiac Marker: Yes MYESHA Risk Stratification Score: 6 MYESHA % Risk: 41% Risk Charges/Coding Visit Charges Inpatient E&M: 76537 Init Hosp L3 Objective Data Vital Signs: Vital Signs Temp Pulse Resp BP Pulse Ox O2 Del Method 98 F 82 13 101/84 H 98 Room Air 02/04/25 12:59 02/04/25 13:00 02/04/25 12:59 02/04/25 13:00 02/04/25 13:00 02/04/25 11:37 Oxygen Delivery Method Room Air Weight: 162 lb 4.163 oz Body Mass Index (BMI) 25.4 Lab / Micro Data Attestation: I reviewed the patient's lab results. 02/04/25 11:08 02/04/25 11:08 Labs: Laboratory Results - last 24 hr 02/04/25 11:08: WBC 10.7, RBC 3.87 L, Hgb 12.3, Hct 37.0, MCV 95.6, MCH 31.8, MCHC 33.2, RDW Std Deviation 49.9 H, RDW Coeff of Gerber 14.2, Plt Count 223, MPV 9.9, Immature Gran % (Auto) 0.500, Neut % (Auto) 77.1 H, Lymph % (Auto) 15.1 L, [place] % (Auto) 4.9, Eos % (Auto) 1.5, Baso % (Auto) 0.9, Absolute Neuts (auto) 8.2 H, Absolute Lymphs (auto) 1.61, Nucleated RBC % 0, Sodium 140, Potassium 4.1, Chloride 107, Carbon Dioxide 21.0, Anion Gap 12, BUN 19, Creatinine 1.01, Estim Creat Clear Calc 53.28, Est GFR (MDRD) Non-Af 61, BUN/Creatinine Ratio 18.6, Glucose 105 H, Calcium 9.2, Troponin T High Sens 307 H* Rhythm Strip Rhythm Strip: Sinus Rhythm Rate: 70 Ectopy: None Cardiology Labs/Tests 02/04/25 11:08: WBC 10.7, RBC 3.87 L, Hgb 12.3, Hct 37.0, MCV 95.6, MCH 31.8, MCHC 33.2, Plt Count 223, MPV 9.9, Immature Gran % (Auto) 0.500, Neut % (Auto) 77.1 H, Lymph % (Auto) 15.1 L, [place] % (Auto) 4.9, Eos % (Auto) 1.5, Baso % (Auto) 0.9, Absolute Neuts (auto) 8.2 H, Nucleated RBC % 0, Sodium 140, Potassium 4.1, Chloride 107, Carbon Dioxide 21.0, Anion Gap 12, BUN 19, Creatinine 1.01, Est GFR (MDRD) Non-Af 61, BUN/Creatinine Ratio 18.6, Glucose 105 H, Calcium 9.2 Rhythm: EKG: ECHO: Stress Test: Cardiac Cath: PCI: CT Surgery: Holter monitor: EPS: PPM: CXR: Chest CT Scan: Radiography Diagnostic Testing: Radiology Impression Chest X-Ray 02/04/25 11:10 IMPRESSION: No acute cardio pulmonary process is identified radiographically. Arteriosclerotic vascular disease of the aorta is noted. A levoscoliosis of the thoracic spine is seen. Reading Location: [id number]
[2025-02-04 13:13] LABS: Prothrombin Time (Protime)PT. 12.9 SECONDS (11.7-14.9)
[2025-02-04 13:14] LABS: Partial Thromboplast Time 26.4 Seconds (24.1-36.2)
--- NOTE | 2025-02-04 13:16 | CASEMGMT ---
Care Management Face to Face with patient for initial transition planning/care coordination assessment in the ED. This typewriter assembler introduced self and role at [facility]. Patient alert and oriented. Patient willing to participate in assessment and is able to answer all questions appropriately. Care providers, pharmacy, and demographics verified. Admitting Diagnosis: NSTEMI Other diagnosis history: UTI, Myocardial infarct, 2 stents placed September 2024 PCP: Florin Bailey Specialists: Dagmar, division manager. Lit, chemical plant manager. Amber, urologist. Preferred Pharmacy: [facility] Insurance: MMO Medicare Prescription Benefit: yes Living Will/HPOA: none and denies needing information. LNOK: , [place] Living Arrangements: lives with , single story home with basement, 3 steps to enter, independent at baseline with all ADLs/IADLs Transportation: patient and DME: blood pressure cuff and CPAP HHC: none SNF/Rehab: none (had outpatient thru [facility] for 12 weeks) Community Resources: none Patient goals: Patient wishes to discharge home, denies need for home health care at this time. Patient denies any further needs or concerns at this time. Disposition Plan: admission to acute; RN CM/SW to follow for discharge planning needs that may arise. Torri Morrison, MACHINE HAMPER MAKER, MEDICAL ASSISTANT SECRETARY
[2025-02-04 13:56] LABS: Troponin T High Sens 2 HR 346 ng/L (<=14)
--- NOTE | 2025-02-04 15:35 | CRPHASE1_ITS ---
Patient Communication Patient Information Former Patient:: Phase I PHII Cardiac Rehab Discussed with Patient:: Yes (CURRENTLY ENROLLED ) Guide to Cardiac Rehab Given to Patient:: Yes Cardiac Rehab Facility Choice List Given to Patient:: Yes Communication to Cardiac Rehab Choice Program [facility] CR PHII:: Communication Given to CR and Refer to [facility] Composition Mixer:: Adan Galindo PCP:: Florin Bailey Phase II Cardiac Rehab:: Yes Post Discharge Choice Letter Given to Patient:: Yes Phase I Charge:: Level I - Education Medical/Surgical History Medical History [place]:: Yes Angina:: Yes CAD:: Yes Congestive Heart Failure: Pulmonary:: Yes ANDRIA:: Yes Hypertension:: Yes CVA/TIA: Surgical History PTCA:: Yes Ambulation Ambulation Notes:: WALKING INDEPENDTLY Cardiac Rehabilitation Info Program Information Cardiac Rehabilitation Program Information: Cardiac Rehab The cardiac rehab team at [facility] consists of highly skilled exercise physiologists, nurses, respiratory therapists and physicians working together with you. Our purpose is to help you have a full recovery and achieve the goals you set for yourself. Over the years many of our patients have returned to activities they assumed they would never do again! We can help restore your confidence and motivation to make lifestyle changes that can have a significant impact on your health and quality of life! We can help answer questions and concerns you may have about exercise, lifestyle, medications, diet, stress and anxiety which are common following a hospitalization. WE monitor ECG and vital signs during exercise and discuss your progress with you and report to your physician(s). Cardiac Rehab is proven to help reduce readmissions, improve functional capacity and lower recurrence of problems with your heart. Our Cardiac Rehab program is Certified by the [place] [employer]-Vascular and Pulmonary Rehabilitation (AACVPR) and Accredited by the [place] [employer] through our [facility]. You can contact us at . We invite you to call us with your questions or to get started in our program. If you have other questions or concerns be sure to ask your physician/provider during your follow-up visit. WE look forward to seeing you!
--- NOTE | 2025-02-04 15:37 | CRPH1.INST_ITS ---
General Education Discussed with Patient CAD and cardiac anatomy and function:: Patient communicates acknowledgment and Family communicates acknowledgment Explanation of diagnoses and procedures:: Patient communicates acknowledgment and Family communicates acknowledgment Sign/Symptoms of DC:: Patient communicates acknowledgment and Family communicates acknowledgment Antiplatelet therapy: Patient communicates acknowledgment (BRILINTA ) and Family communicates acknowledgment Proper use of NTG-SL: Patient communicates acknowledgment Emergency procedures and activation of EMS: Patient communicates acknowledgment and Family communicates acknowledgment Compliance of all prescribed medications: Patient communicates acknowledgment and Family communicates acknowledgment Smoking Risk Factors Patient Nicotine/Smoking Risk Factors Are:: Cigarettes Recommendations Recommendations Include:: Smoking cessation strategies/Smoking packet, Second- hand smoke recommendation and Participation in a smoking cessation program Response Code Nicotine/Smoking Response Code:: Patient communicates acknowledgment and Family communicates acknowledgment Comments:: SMOKER 30 PLUS YEARS Dyslipidemia Risk Factors Patient Dyslipidemia Risk Factors Are:: Total Cholesterol, Triglycerides, HDL and LDL Recommendations Recommendations Include:: Lipid profile not available and Therapeutic Lifestyle Change dietary guidelines Response Code Dyslipidemia Response Code:: Patient communicates acknowledgment and Family communicates acknowledgment Overweight/Obesity Risk Factors Patient Overweight/Obesity Risk Factors Are:: BMI Normal [24-29 & > 65 years old] (25.4) Recommendations Recommendations Include:: Weight loss of 5-10% and Exercise 5-7 times/week Response Code Overweight/Obesity:: Patient communicates acknowledgment and Family communicates acknowledgment Hypertension Recommendations Recommendations Include:: Maintain BP <130/85 and Decrease/maintain normal body weight Response Code Hypertension:: Patient communicates acknowledgment and Family communicates acknowledgment Heart Disease Risk Factors Patient Heart Disease Risk Factors Are:: Family history of heart disease < 65 years old and Previous cardiac event Recommendations Recommendations Include:: Educated family members of their risk and Educated family members of importance of prevention of heart disease Response Code Heart Disease Response Code:: Patient communicates acknowledgment and Family communicates acknowledgment Diabetes Risk Factors Patient Diabetes Risk Factors Are:: No documented hx of diabetes Recommendations Recommendations Include:: Decrease/maintain body weight Metabolic Syndrome Recommendations Recommendations Include:: Reinforce compliance to risk factor modifications Response Code Metabolic Syndrome Response Code:: Patient communicates acknowledgment and Family communicates acknowledgment Sedentary Recommendations Recommendations Include:: Aerobic exercise 5-7 times/week for 20-30 minutes continuously and Benefits of regular exercise Response Code Sedentary Response Code:: Patient communicates acknowledgment and Family communicates acknowledgment Stress Risk Factors Patient Stress Risk Factors Are:: Patient denies stress as a risk factor
--- NOTE | 2025-02-04 18:22 | NURSING ---
Spoke with Bill in pharmacy regarding the heparin drip. It was not stopped/paused in the MAR and has not been running for several hours. 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 Text sent to Dr. Galindo and reply was just received. Per pharmacy, get new baseline aptt, once drawn start at 9units/hr and titrate when aptt comes back.
[2025-02-04 19:55] LABS: Partial Thromboplast Time 46.4 Seconds (24.1-36.2)
[2025-02-05] VITALS (7 sets, daily range): BP systolic 92–105; BP diastolic 50–65; PULSE 71–80; RESP 16–18; TEMP 36.6–36.7; O2SAT 91–97
[2025-02-05 07:36] LABS: Hematocrit 34.4 % (37-47); Hemoglobin 11.4 g/dL (12.0-15.0); Mean Corp Hgb Conc 33.1 g/dL (32-36); Mean Corpuscular Hgb 31.4 pg (27.0-32.0); Mean Corpuscular Volume 94.8 fL (81-99); Mean Platelet Vol. 10.4 fl (6.2-12.0); Platelet Count 205 K/mm3 (150-450); RBC Distribution Width CV 14.1 % (11.6-14.6); RBC Distribution Width SD 48.9 fl (35.1-43.9); Red Blood Count 3.63 M/mm3 (4.2-5.4); White Blood Count 10.5 K/mm3 (4.4-11.0)
--- NOTE | 2025-02-05 07:38 | PN.CARD_ITS ---
Subjective Subjective Patient reports she is doing very well this morning. She denies any recurrence of the symptoms that led to her admission which was a nocturnal onset of shortness of breath and some discomfort in her chest. The patient tolerated the stenting of her circumflex and POBA of her diagonal without incident. She did remain on heparin for a period of time. Patient denies any issues with her groin or right wrist. Objective Data Vital Signs: Vital Signs Temp Pulse Resp BP Pulse Ox O2 Del Method 98.0 F 74 18 96/50 L 95 Room Air 02/05/25 03:07 02/05/25 03:07 02/05/25 03:07 02/05/25 03:07 02/05/25 03:07 02/05/25 03:07 Oxygen Delivery Method Room Air Weight: 162 lb Body Mass Index (BMI) 25.3 Intake & Output: Intake and Output for Last 24 Hours 02/03/25 02/04/25 02/05/25 23:59 23:59 23:59 Intake Total 416.3 / 416.3 Output Total 850 / 850 300 / 300 Balance -433.7 / -433.7 -300 / -300 Lab / Micro Data Attestation: I reviewed the patient's lab results. 02/05/25 06:18 02/04/25 11:08 Labs: Laboratory Results - last 24 hr 02/04/25 11:08: WBC 10.7, RBC 3.87 L, Hgb 12.3, Hct 37.0, MCV 95.6, MCH 31.8, MCHC 33.2, RDW Std Deviation 49.9 H, RDW Coeff of Gerber 14.2, Plt Count 223, MPV 9.9, Immature Gran % (Auto) 0.500, Neut % (Auto) 77.1 H, Lymph % (Auto) 15.1 L, [place] % (Auto) 4.9, Eos % (Auto) 1.5, Baso % (Auto) 0.9, Absolute Neuts (auto) 8.2 H, Absolute Lymphs (auto) 1.61, Nucleated RBC % 0, Sodium 140, Potassium 4.1, Chloride 107, Carbon Dioxide 21.0, Anion Gap 12, BUN 19, Creatinine 1.01, Estim Creat Clear Calc 53.28, Est GFR (MDRD) Non-Af 61, BUN/Creatinine Ratio 18.6, Glucose 105 H, Calcium 9.2, Troponin T High Sens 307 H* 02/04/25 12:57: PT 12.9, INR 1.0, APTT 26.4 02/04/25 13:12: Troponin T Hi Sens 2 Hr 346 H* 02/04/25 19:00: APTT 46.4 H 02/05/25 06:18: WBC 10.5, RBC 3.63 L, Hgb 11.4 L, Hct 34.4 L, MCV 94.8, MCH 31.4, MCHC 33.1, RDW Std Deviation 48.9 H, RDW Coeff of Gerber 14.1, Plt Count 205, MPV 10.4 Rhythm Strip Rhythm Strip: Sinus Rhythm Rate: 75 Ectopy: PVC(s) Cardiology Labs/Tests 02/04/25 11:08: WBC 10.7, RBC 3.87 L, Hgb 12.3, Hct 37.0, MCV 95.6, MCH 31.8, MCHC 33.2, Plt Count 223, MPV 9.9, Immature Gran % (Auto) 0.500, Neut % (Auto) 77.1 H, Lymph % (Auto) 15.1 L, [place] % (Auto) 4.9, Eos % (Auto) 1.5, Baso % (Auto) 0.9, Absolute Neuts (auto) 8.2 H, Nucleated RBC % 0, Sodium 140, Potassium 4.1, Chloride 107, Carbon Dioxide 21.0, Anion Gap 12, BUN 19, Creatinine 1.01, Est GFR (MDRD) Non-Af 61, BUN/Creatinine Ratio 18.6, Glucose 105 H, Calcium 9.2 02/04/25 12:57: PT 12.9, INR 1.0, APTT 26.4 02/04/25 19:00: APTT 46.4 H 02/05/25 06:18: WBC 10.5, RBC 3.63 L, Hgb 11.4 L, Hct 34.4 L, MCV 94.8, MCH 31.4, MCHC 33.1, Plt Count 205, MPV 10.4 Rhythm: EKG: ECHO: Stress Test: Cardiac Cath: PCI: CT Surgery: Holter monitor: EPS: PPM: CXR: Chest CT Scan: Radiography Diagnostic Testing: Radiology Impression Chest X-Ray 02/04/25 11:10 IMPRESSION: No acute cardio pulmonary process is identified radiographically. Arteriosclerotic vascular disease of the aorta is noted. A levoscoliosis of the thoracic spine is seen. Reading Location: [id number] Physical Exam Const alert and oriented x3 HEENT normocephalic Neck no JVD Chest inspection of chest normal Resp normal respiratory effort and clear to auscultation bilaterally Cardio regular rate, regular rhythm, S1 normal heart sound, S2 normal heart sound, no murmurs, no rub and no gallops Peripheral Pulses: radial pulses present right 1+ and femoral pulses present right (No bruit) 2+ Extremity no pedal edema Skin General Skin Exam: ecchymosis Neuro Neuro Narrative: Alert and oriented x 3 Psych mental status grossly normal Assessment & Plan Assessment/Plan (1) Non-ST elevation [place] (NSTEMI): PLAN: Patient underwent urgent stenting of her circumflex yesterday. She also had plain old balloon angioplasty of the ostium of the small first diagonal branch which was jailed by the previous LAD stent which was widely patent. The patient also has mild to moderate disease in the ostium of the right coronary artery which will be treated medically. The patient should be continued on aspirin and ticagrelor uninterrupted for 1 year. After 6 months we may be able to interrupt the ticagrelor to allow for surgical intervention if indicated. But this will need to be discussed in detail with the urologist following up and treating her hematuria. (2) Hematuria: QUALIFIERS: Hematuria type: unspecified type Qualified Code(s): R 31.9 - Hematuria, unspecified PLAN: The patient is to be scheduled for a bladder biopsy this week. However, this will need to be rescheduled for a later date given her current cardiovascular situation. (3) Hyperlipidemia: QUALIFIERS: Hyperlipidemia type: mixed hyperlipidemia Qualified Code(s): E78.2 - Mixed hyperlipidemia PLAN: Patient's lipids are adequately controlled she should continue her current atorvastatin. PLAN: Plan 1. Continue current home medical therapy. 2. Will need to defer bladder biopsy until seen in the cardiovascular office in the next 7 to 10 days. 3. Will then need to discussed options with urology on the most effective and efficient way of managing her urologic evaluation. 4. Patient will need to continue aspirin and Brilinta for 1 year. 5. From a cardiovascular standpoint the patient can be discharged to home. Charges/Coding Visit Charges Inpatient E&M: 71043 [facility] Hosp L3
[2025-02-05] MEDS: Aspirin E.C. 81 MG Tablet PO (08:12)
[2025-02-05] MEDS: TICAGRELOR 90 MG TABLET PO (08:12)
[2025-02-05 08:32] LABS: ALB/GLOB Ratio 1.3 RATIO (0.9-2.4); AST(SGOT) 34 U/L (<=31); Alanine Aminotransfer ALT/SGPT 16 U/L (<=34); Albumin, Serum 3.5 g/dL (3.4-4.8); Alkaline Phosphatase 68 U/L (35-104); Anion Gap 10 (5-15); BUN 18 mg/dL (4-19); BUN/Creat Ratio 17.6 RATIO (10-20); Carbon Dioxide 22.1 mmol/L (21.0-32.0); Chloride 106 mmol/L (98-108); Creatinine, Serum 1.02 mg/dL (0.70-1.20); EST Glomerular Filtration Rate 61 (>60); Estimated Creatinine Clearance 52.76 ml/min (50-250); Globulin 2.8 g/dL (2.2-4.2); Glucose 92 mg/dL (70-99); Potassium 4.3 mmol/L (3.3-5.1); Protein, Total 6.2 g/dL (5.9-8.4); Sodium Level 139 mmol/L (133-145); Total Bilirubin 0.45 mg/dL (0.00-1.30)
[2025-02-05] MEDS: Metoprolol(XL)Succ 25 MG Tablet PO (09:42)
--- NOTE | 2025-02-05 10:00 | EKG12_ITS ---
Test Reason : AM EKG Blood Pressure : */* mmHG Vent. Rate : 69 BPM Atrial Rate : 69 BPM P-R Int : 126 ms QRS Dur : 58 ms QT Int : 384 ms P-R-T Axes : 49 71 88 degrees QTcB Int : 411 ms Normal sinus rhythm Nonspecific ST and T wave abnormality Abnormal ECG When compared with ECG of 04-Feb-2025 12:39, MANUAL COMPARISON REQUIRED DATA IS UNCONFIRMED Confirmed by Jorge Leavitt ([id number]), image editor LISETTE PINEDA ([id number]) on 02/05/2025 11:33:25 AM Referred By: Confirmed By: Jorge Leavitt
--- NOTE | 2025-02-05 12:54 | DCINST_ITS ---
Discharge Instructions Diet Discharge Diet: Low fat / Low cholesterol DC O2, CPAP, BIPAP needs Home O2 Discharge instructions: No Dressing / Incision Discharge Activity: Return to Normal Activity Weight Bearing Status: Weight bearing as tolerated Dressing / Incision Call your doctor if you observe: Fever of 101 or Higher, Shortness of breath, Dizziness, Swelling in the ankles, Chest pain and Increased palpitations (irregular heartbeat) Follow Up Care Test Results: Test results from this visit will be discussed in further detail at your follow- up appointment, if applicable. Discharge Plan Admission Admit Date/Time: 02/04/25 13:00 Primary Reason for Your Visit: angina Attending Provider: Estrella Hanna Primary Care Provider: Florin Bailey Instructions Patient Instructions: Discharge Instructions for Angina, ED Heart Disease Risk Factors Discharge Orders/Prescriptions Prescriptions: Continued lisinopril 2.5 mg tablet 2.5 mg PO DAILY 90 Days Qty: 90 3RF metoprolol succinate [Toprol XL] 25 mg tablet extended release 24 hr 25 mg PO DAILY 90 Days Qty: 90 3RF Brilinta 90 mg tablet 90 mg PO BID 90 Days Qty: 180 3RF atorvastatin 40 mg tablet 40 mg PO QHS 90 Days Qty: 90 3RF aspirin 81 mg Tablet,Delayed Release (Dr/Ec) 81 mg PO DAILY@0800 90 Days Qty: 90 3RF Referrals / Follow Up: Florin Bailey DO [Primary Care Provider] - Within 1 Week Disposition Disposition (needs filled in before D/C Order can be placed): Home, Self Care
--- NOTE | 2025-02-05 12:55 | DS.PCM_ITS ---
Providers Date of Admission: 02/04/25 Date of Discharge: 02/05/25 Primary Care Physician: Dr. Florin Bailey DO Reason For Visit: nonstemi Diagnosis Discharge Diagnosis (1) Non-ST elevation IL (NSTEMI): Status: Acute Code(s): I21.4 - Non-ST elevation (NSTEMI) myocardial infarction (2) Hematuria: Status: Acute Code(s): R31.9 - Hematuria, unspecified Qualifiers: Hematuria type: unspecified type Qualified Code(s): R31.9 - Hematuria, unspecified (3) Hyperlipidemia: Status: Chronic Code(s): E78.5 - Hyperlipidemia, unspecified Qualifiers: Hyperlipidemia type: mixed hyperlipidemia Qualified Code(s): E78.2 - Mixed hyperlipidemia Plan #nonstemi * Admitted with a complaint of chest pain. Initial troponin was 307. EKG showed some ST depression in the lateral leads. * Cardiology was consulted. Patient does have a history of CAD status post stents back in September 2024. * On heparin drip. * Has been compliant with her aspirin and Brilinta at home. However she does still continue to smoke. On high intensity statin. * For emergent cardiac cath today. Further management will be predicated on the findings of the cardiac cath. * Continue lisinopril and metoprolol. #Nicotine dependence: Counseled to quit. Nicotine patch 14 mg daily #Hyperlipidemia: On statin DVT prophylaxis: Not indicated as patient on heparin drip. CODE STATUS: Full code * Patient counseled extensively about different types of CODE STATUS including full code, DNR CCA and DNR CCA. Patient elects to be full code. * Total [id number] time 16 minutes. Medications at Discharge Home Medications aspirin 81 mg tablet,delayed release 81 mg PO DAILY@0800 heart health 90 days #90 tabs 10/11/24 atorvastatin 40 mg tablet 40 mg PO QHS cholesterol 90 days #90 tabs 10/26/24 lisinopril 2.5 mg tablet 2.5 mg PO DAILY blood pressure 90 days #90 tabs 10/26/24 metoprolol succinate 25 mg tablet,extended release 24 hr (Toprol XL) 25 mg PO DAILY heart 90 days #90 tabs 10/26/24 ticagrelor 90 mg tablet (Brilinta) 90 mg PO BID blood thinner 90 days #180 tabs 10/26/24 Hospital Course Operations None Procedures Cardiac catheterization Summary of Care Provided Minutes Spent on Discharge: 45 Hospital Course: MIGUEL MATHIAS, is a 64 F with a PMH as outlined who presents via the ED on 02/04/2025 with a complaint of chest pain. The chest pain woke her up in the middle of the night the day before admission. It was episodic the entire day before admission and says she woke up on the day of presentation with no chest pain. However, she drank some coffee and the chest pain recurred. She said it was burning, mid chest, with no aggravating or relieving factors. Pain worsened with driving. She did have 2 stents placed in September 2024. She called the EMS to bring her into the ED. She denied any shortness of breath, lightheadedness, dizziness, nausea vomiting or any other symptoms. She does continue to smoke about 1/2 pack daily. Previous symptoms otherwise negative. Vitals in the ED were blood pressure 101/84, pulse rate of 82 and temperature of 98 Fahrenheit. Respirate rate was 13. Pulse ox was 98% on room air. CBC showed hemoglobin of 12.3 with WBC of 10.7 and platelets of 223. INR was 1. Chemistry showed sodium of 140 with potassium of 4.1 and bicarb of 21. Creatinine was 1.01. Initial troponin was 307. EKG showed some ST depression in the lateral leads. Cardiology was consulted and she was taken emergently to the cardiac Outside [facility] L[facility] Operator to have cardiac cath reevaluated for in-stent stenosis in the setting of non-STEMI. She had cardiac cath which showed coronary artery disease with successful FREDDIE to the mid left circumflex and PTCA alone done to the D1 artery. She was continued on aspirin and Brilinta as well as high intensity statin and metoprolol. She was counseled strongly to quit smoking and to be compliant with her medication. His symptoms improved and she felt better. She was discharged home on 02/05/2025. She is follow-up with her primary care doctor and with cardiology within 1 to 2 weeks. Patient seen and examined prior to discharge. She felt better and had no complaints. She had had an uneventful night. Previous symptoms otherwise negative. Labs and vitals reviewed. Home medication reviewed and reconciled. Physical Exam Const alert, oriented x3 and no apparent distress General Appearance: cooperative and comfortable Orientation / Consciousness: awake Exam Limitations: no limitations HEENT normocephalic, head/scalp atraumatic, hearing grossly normal bilaterally, moist oral mucous membranes and oropharynx normal Mouth: oral and palatal mucosa normal Eyes PERRL, EOMs intact bilaterally and conjunctivae normal Neck no lymphadenopathy and supple Resp normal respiratory effort, no retractions, no use of accessory muscles and clear to auscultation bilaterally Cardio regular rate, regular rhythm, S1 normal heart sound, S2 normal heart sound and no murmurs GI normal to inspection, nondistended, normoactive bowel sounds, soft to palpation, non-tender and non-distended Extremity normal to inspection, full ROM and no clubbing, cyanosis or edema Skin no rashes or lesions noted Neuro oriented x3, CN's II-XII intact bilaterally, moves all extremities and no focal motor deficits Sensorium / Orientation: awake and alert Speech: speech normal Motor Exam: strength 5/5 throughout Psych affect normal Weight / BMI Weight Weight: 162 lb Body Mass Index (BMI) 25.3 ABG / Lab / Microbiology Data 02/05/25 06:18 02/05/25 06:18 Laboratory: Laboratory Results - last 24 hr 02/04/25 19:00: APTT 46.4 H 02/05/25 06:18: WBC 10.5, RBC 3.63 L, Hgb 11.4 L, Hct 34.4 L, MCV 94.8, MCH 31.4, MCHC 33.1, RDW Std Deviation 48.9 H, RDW Coeff of Gerber 14.1, Plt Count 205, MPV 10.4, Sodium 139, Potassium 4.3, Chloride 106, Carbon Dioxide 22.1, Anion Gap 10, BUN 18, Creatinine 1.02, Estim Creat Clear Calc 52.76, Est GFR (MDRD) Non-Af 61, BUN/Creatinine Ratio 17.6, Glucose 92, Calcium 9.0, Total Bilirubin 0.45, AST 34 H, ALT 16, Alkaline Phosphatase 68, Total Protein 6.2, Albumin 3.5, Globulin 2.8, Albumin/Globulin Ratio 1.3 D/C Instructions Discharge Diet: Low fat / Low cholesterol Discharge Activity: Return to Normal Activity Weight Bearing Status: Weight bearing as tolerated Call your doctor if you observe: Fever of 101 or Higher, Shortness of breath, Dizziness, Swelling in the ankles, Chest pain and Increased palpitations (irregular heartbeat) DC O2, CPAP, BIPAP Needs Home O2 Discharge instructions: No Meaningful Use Info Meaningful Use Meaningful Use Diagnoses (Choose all that apply): AMI AMI/Post PCI/Angioplasty Aspirin given w/in 24hrs of arrival?: Yes ASA at discharge?: Yes Antiplatelet Therapy at Discharge:: Yes Statins at discharge?: Yes Edvin/ARB at discharge?: Yes Beta Divya at discharge?: Yes Done w/ Acute IL measure.: Yes Documented LVEF (%): 50 Ischemic Stroke Statin Dosing Therapy Reference: STATIN DOSE THERAPY REFERENCE: * Patients > 75 years receive moderate or high dose statin therapy. * Patients 75 years or YOUNGER should receive HIGH intensity statin dose unless contraindicated. You will be required to document reason for non-treatment if statin daily dose does not meet guidelines. HIGH DOSE STATIN THERAPY DAILY Atorvastatin > than or = to 40 mg Rosuvastatin > than or = to 20 mg Amlodipine + Atorvastatin > than or = to 2.5/40 mg Ezetimibe + Simvastatin 10/80 mg Simvastatin 80mg Discharge Plan Admission Admit Date/Time: 02/04/25 13:00 Primary Reason for Your Visit: angina Attending Provider: Estrella Hanna Primary Care Provider: Florin Bailey Instructions Patient Instructions: Discharge Instructions for Angina, ED Heart Disease Risk Factors Discharge Orders/Prescriptions Prescriptions: Continued lisinopril 2.5 mg tablet 2.5 mg PO DAILY 90 Days Qty: 90 3RF metoprolol succinate [Toprol XL] 25 mg tablet extended release 24 hr 25 mg PO DAILY 90 Days Qty: 90 3RF Brilinta 90 mg tablet 90 mg PO BID 90 Days Qty: 180 3RF atorvastatin 40 mg tablet 40 mg PO QHS 90 Days Qty: 90 3RF aspirin 81 mg Tablet,Delayed Release (Dr/Ec) 81 mg PO DAILY@0800 90 Days Qty: 90 3RF Referrals / Follow Up: Florin Bailey DO [Primary Care Provider] - Within 1 Week Disposition Disposition (needs filled in before D/C Order can be placed): Home, Self Care Charges/Coding Visit Charges Inpatient E&M: 84840 Disch Hosp >30min
--- NOTE | 2025-02-05 13:05 | CL.I_ITS ---
Patient Name: MIGUEL MATHIAS Study Date: 02/04/2025 Performing: Titus Galindo MD Ht: 67 inches 170.18 cm : 1960 Wt: 162.5 lbs 73.6 kg Age: 64 Gender: female BSA: 1.85 PROCEDURE(S) PERFORMED DC02-(32584)LHC/COR IC12-([id number])FREDDIE W/WO PTCA, SINGLE CORONARY ARTERY IC02-(44637)PTCA, EACH ADD'L CORONARY ART, SAME MAJOR CLINICAL PROFILE AND CO-MORBIDITIES Indications: ACS <= 24 hrs, NSTEMI Heart Failure: None CONCLUSIONS CAD as described. Successful FREDDIE to mLCx and PTCA alone to D1. RECOMMENDATIONS DESCRIPTION OF PROCEDURE The patient arrived to the procedure lab. The risks and benefits of the procedure as well as a full description of our services here and lack of surgical backup were fully explained to the patient and/or their significant other prior to the catheterization. The Timeout was completed, verifying the correct patient and procedure. The patient's procedural site was prepped and draped in the usual fashion. Local anesthetic was given subcutaneously to right radial region with Lidocaine 2%. Local anesthetic was given subcutaneously to right groin region with Lidocaine 2%. Using a modified Seldinger technique, and ultrasound guidance,arterial access was obtained via the right femoral artery, with Micropuncture set. Left Coronary Artery selective angiography was performed in multiple views using a 5 Fr. JL3.5 catheter. Right Coronary Artery selective angiography was then performed in multiple views using a 5 Fr. JR 4 catheterThe images were reviewed and options discussed. A decision was then made to proceed with an Intervention, IVUS or other adjunct procedure. xb3 Guide catheter was inserted and engaged into the LCA. bmw Guide wire was advanced to the Circumflex. emerge 2.5 x 20 Balloon catheter was advanced across lesion in the circumflex, mid. PTCA balloon inflated at 6 atms for 10 secs. PTCA balloon inflated at 6 atms for 25 secs. Angiogram performed post balloon dilatation. orsiro 2.5 x 40 Drug Eluting stent was advanced across the lesion in the circumflex, mid. Angiogram performed post stent deployment. bmw Guide wire was repositioned to the Diagonal emerge 1.5 x 15 Balloon catheter was advanced across lesion in the first diagonal, ostial. PTCA balloon inflated at 12 atms for 14 secs. PTCA balloon inflated at 14 atms for 14 secs. PTCA balloon inflated at 6 atms for 11 secs. Angiogram performed post balloon dilatation. Contrast was injected through the sheath and the Right Iliac and Femoral artery were assessed for possible closure device. The arterial sheath was pulled and a Perclose closure device was deployed for hemostasis. The arterial sheath was pulled and a Perclose closure device was deployed for hemostasis CORONARY ANGIOGRAPHY DOMINANCE: Right Dominant LEFT MAIN: Mild luminal irregularities LEFT ANTERIOR DESCENDING ARTERY: Mild luminal irregularities PROX LAD: Previously placed stent is patent MID LAD: 30 % Stenosis DIAGONAL 1: Ostial - 95 % Stenosis CIRCUMFLEX ARTERY: MID CIRC: 99 % Stenosis with thrombus RIGHT CORONARY ARTERY: OSTIAL RCA: 40 % Stenosis MID RCA: 30 % Stenosis INTERVENTION INFORMATION LESION SITE: Circumflex (Mid) Lesion Complexity: High/C, chronic total occlusion: No, lesion at bifurcation: No, thrombus present: Yes, lesion length: 39 mm, culprit lesion: Yes, Previously treated lesion: No, In-stent restenosis: No Pre Stenosis: 99 % Pre intervention MYESHA flow: 2 PROCEDURE: Drug Eluting Stent with pre dilatation. Post Stenosis: 0 % Post intervention MYESHA flow: 3 Lesion Devices: Cordis 6 Fr XB3.0 100cm Guide Catheter Millard .014 190cm [employer] [place] Stra[employer] [facility] MR FREDDIE 2.5x40 Darius Sci EMERGE MR 2.50x20 BALLOON LESION SITE: 1st Diagonal (Ostial) Lesion Complexity: High/C, chronic total occlusion: No, lesion at bifurcation: Yes, thrombus present: No, lesion length: 18 mm, culprit lesion: Yes, Previously treated lesion: Yes, Previously treated with a stent: No Pre Stenosis: 95 % Pre intervention MYESHA flow: 3 PROCEDURE: Balloon Angioplasty small vessel. PTCA alone was performed with a 1.5mm balloon Post Stenosis: 40 % Post intervention MYESHA flow: 3 Lesion Devices: Cordis 6 Fr XB3.0 100cm Guide Catheter Millard .014 190cm [employer] [place] Straight Darius Sci EMERGE MR 1.50x15 BALLOON COMPLICATIONS No Complications PROCEDURE MEDICATIONS Versed 1 mg IV Fentanyl 50 mcg IV Oxygen: 2 L/min via nasal cannula Heparin 5000 unit(s) IV 02/04/2025 14:43:56 Nitro 100 mcg IC 02/04/2025 14:39:48 SUMMARY OF HEMODYNAMIC DATA Time AIR REST ECG 13:46:09 AO 106/56 (75) SA 14:32:16 Signed By Titus Galindo MD On 02/05/2025 13:04:53 Titus Galindo MD
--- NOTE | 2025-02-05 13:22 | CASEMGMT ---
Patient has order for discharge. RN CM in to discuss needs at discharge. Patient denies needs or help at discharge. Patient had no further questions or concerns.
--- NOTE | 2025-02-05 14:23 | PHA.DC.MR.R ---
Pharmacy [place] Med Reconciliation Pharmacy Service has performed discharge medication reconciliation for this patient. The patient's discharge medication list was reviewed for discrepancies and discrepancies were resolved. Medications at Discharge Home Medications aspirin 81 mg tablet,delayed release 81 mg PO DAILY@0800 heart health 90 days #90 tabs 10/11/24 atorvastatin 40 mg tablet 40 mg PO QHS cholesterol 90 days #90 tabs 10/26/24 lisinopril 2.5 mg tablet 2.5 mg PO DAILY blood pressure 90 days #90 tabs 10/26/24 metoprolol succinate 25 mg tablet,extended release 24 hr (Toprol XL) 25 mg PO DAILY heart 90 days #90 tabs 10/26/24 ticagrelor 90 mg tablet (Brilinta) 90 mg PO BID blood thinner 90 days #180 tabs 10/26/24
== END 2025-02-05 17:00 | disposition home or self-care (01) | DRG 322 ==
LOC: ED 13:04 → PCU 13:24
PROVIDERS: Specialist; Admitting Provider Student in an Organized Health Care Education/Training Program; Emergency Provider Emergency Medicine; Visit Provider Student in an Organized Health Care Education/Training Program
DX: I21.4 Non-ST elevation (NSTEMI) myocardial infarction (principal); E78.2 Mixed hyperlipidemia; I25.10 Atherosclerotic heart disease of native coronary artery without angina pectoris; F17.210 Nicotine dependence, cigarettes, uncomplicated; Z79.02 Long term (current) use of antithrombotics/antiplatelets; Z95.5 Presence of coronary angioplasty implant and graft; Z82.49 Family history of ischemic heart disease and other diseases of the circulatory system; Z79.82 Long term (current) use of aspirin; Z79.899 Other long term (current) drug therapy; Z88.2 Allergy status to sulfonamides; Z88.1 Allergy status to other antibiotic agents
CPT/HCPCS: 36415; 71045; 80048; 80053; 84484; 85025; 85027; 85610; 85730; 92920; 92928; 93005; 93454; 99152; 99153; 99285; C1874; C1894; Q9967; A4216; C1725; C1760; C1769; C1887; C9600

== ENCOUNTER 2025-02-06 08:56 | Emergency (ER) | payer MEDICARE, SELFPAY ==
[2024-11-29 09:23] VITALS: BMI 25.9
[2025-02-06] VITALS (9 sets, daily range): BP systolic 102–136; BP diastolic 60–92; PULSE 68–86; RESP 12–18; TEMP 36.3–36.6; O2SAT 96–100; BMI 24.7
--- NOTE | 2025-02-06 09:09 | RAD_ITS ---
PROCEDURE: CHEST 1 VIEW (PORTABLE) 02/06/2025 REASON FOR EXAM: PALPITATIONS TECHNIQUE: Frontal view of the chest. COMPARISON: Comparison is made with prior study dated February 04, 2025. FINDINGS: Hardware: EKG electrodes are seen. Heart: Cardiac and mediastinal contours are stable. Lungs: Hyperinflation. The lungs are clear. Bones: Degenerative changes are identified within the thoracic spine. Other: Atherosclerotic calcification of the aortic arch. RAD/Chest 1 View (Portable) IMPRESSION: No Acute Findings. Reading Location: [place] [address]
--- NOTE | 2025-02-06 09:09 | EKG12_ITS ---
Test Reason : CP/PALP Blood Pressure : */* mmHG Vent. Rate : 80 BPM Atrial Rate : 80 BPM P-R Int : 118 ms QRS Dur : 62 ms QT Int : 352 ms P-R-T Axes : 28 59 90 degrees QTcB Int : 405 ms Normal sinus rhythm Nonspecific ST abnormality Abnormal ECG Baseline artifact Confirmed by Jorge Leavitt ([id number]), slot editor LISETTE PINEDA ([id number]) on 02/08/2025 6:58:52 AM Referred By: Confirmed By: Jorge Leavitt
--- NOTE | 2025-02-06 09:10 | ED.VIS.CHEST ---
HPI History of Present Illness Chief Complaint: Palpitations Informant: patient Narrative Narrative: 64-year-old female presenting to the emergency room stating I just do not feel good. Patient by this means that she does not have any energy and she is nauseated. She states that she underwent coronary artery stenting 2 days ago was discharged from from the hospital yesterday. She states that she felt fine last night. States she has not yet ate today. She had normal bowel movement. She denies fever runny nose cough shortness of breath. She denies any chest pain. She does note intermittent palpitations lasting about 1 minute or less. She states it feels like her heart is racing and then stops. She denies any abdominal pain. She denies any back pain. She states that coronary cath was attempted through the right wrist and ended up using right femoral approach. She denies any hematomas or significant bruising. [facility] Medical History (Updated 02/06/25 @ 13:[address] Inderjit Gilmore, DO) UTI (urinary tract infection) Atherosclerosis of coronary artery of [place] heart without angina pectoris Myocardial infarct Home Medications ?Medication ?Instructions ?Recorded ?Last Taken ?Type aspirin 81 mg tablet,delayed 81 mg PO DAILY@0800 heart [facility] 10/11/24 02/06/25 Rx release 90 days #90 tabs atorvastatin 40 mg tablet 40 mg PO QHS cholesterol 90 days 10/26/24 02/05/25 Rx #90 tabs lisinopril 2.5 mg tablet 2.5 mg PO DAILY blood pressure 90 10/26/24 02/04/25 Rx days #90 tabs metoprolol succinate 25 mg 25 mg PO DAILY heart 90 days #90 10/26/24 02/06/25 Rx tablet,extended release 24 hr tabs (Toprol XL) ticagrelor 90 mg tablet (Brilinta) 90 mg PO BID blood thinner 90 days 10/26/24 02/06/25 Rx #180 tabs albuterol sulfate 90 mcg/actuation 2 puff inhalation Q4H PRN PRN 02/06/25 Unknown Rx aerosol inhaler (Ventolin HFA) Wheezing ##1 ascorbate calcium (vitamin C) 500 1 g PO DAILY 02/06/25 02/05/25 History mg tablet cranberry [id number] 2 tab PO DAILY supplement 02/06/25 02/05/25 History coagulans 250 mg-30 mg-15 mg tablet (Azo Cranberry Plus Probiotic) ondansetron 4 mg disintegrating 4 mg PO Q6H PRN PRN Nausea #15 tabs 02/06/25 Unknown Rx tablet Allergy/AdvReac Type Severity Reaction Status Date / Time Penicillins Allergy Hives Verified 02/06/25 08:59 Sulfa (Sulfonamide AdvReac Diarrhea Verified 02/06/25 08:59 Antibiotics) Family History Father CAD (coronary artery disease) CABG age 68; CVA (cerebral vascular accident) Myocardial infarction Mother Cancer Cervical, Melanoma, Colon Surgical History (Updated 02/06/25 @ 12:28 by Melisa Partida) History of carpal tunnel surgery of left wrist History of coronary artery stent placement (02/04/25) Social History household members: spouse housing: house Smoking Status: Current every day smoker tobacco type: cigarettes second hand exposure: No ROS ROS ED ROS Narrative I just do not feel good, generalized fatigue, Constitutional Constitutional ED: Denies chills, fever(s) or weight loss Eyes Eyes: Denies change in vision or diplopia ENT ENT ED: Denies ear pain, rhinorrhea or sore throat Cardiovascular Cardiovascular: Reports palpitations and racing heartbeat; Denies chest pain or orthopnea Respiratory/Chest Respiratory/Chest: Denies cough, dyspnea or orthopnea Gastrointestinal Gastrointestinal: Reports nausea; Denies abdominal pain, diarrhea or vomiting Genitourinary Genitourinary ED: Denies dysuria, hematuria or urinary frequency Musculoskeletal Musculoskeletal: Denies arthralgias, back pain or myalgias Integumentary Denies abscess or rash Neurologic Neurologic: Denies headache(s), paresthesias or weakness Psychiatric Psychiatric: Denies anxiety, depression, suicidal ideation or suicidal thoughts Endocrine Endocrinology: Denies polydipsia, polyphagia or polyuria Allergic/Immunologic Allergic/Immunologic ED: Denies mouth swelling, tongue swelling or urticaria EXAM Physical Exam Const Vital Signs: 02/06/25 08:57 02/06/25 09:23 02/06/25 10:00 Temperature 97.4 F L Temperature Source Temporal Pulse Rate 86 72 Respiratory Rate 18 Respiratory Pattern Blood Pressure 136/80 H 106/63 Blood Pressure Mean 98 77 Pulse Ox 100 Oxygen Delivery Method Room Air 02/06/25 11:00 02/06/25 12:00 02/06/25 13:00 Temperature Temperature Source Pulse Rate 70 68 Respiratory Rate 16 Respiratory Pattern Blood Pressure 103/92 H 113/60 102/65 Blood Pressure Mean 95 77 77 Pulse Ox 98 98 Oxygen Delivery Method Room Air Room Air 02/06/25 13:10 Temperature Temperature Source Pulse Rate 74 Respiratory Rate 12 Respiratory Pattern Normal Blood Pressure Blood Pressure Mean Pulse Ox Oxygen Delivery Method Positive well nourished and well developed General Appearance ED: well developed HEENT Reports normocephalic, head/scalp atraumatic and moist mucous membranes Eyes PERRL and EOMs intact bilaterally Neck no lymphadenopathy, supple and no JVD Resp normal respiratory effort and clear to auscultation bilaterally Cardio regular rate, regular rhythm and no murmurs GI normal to inspection, nondistended, normoactive bowel sounds and non-tender Palpation: soft Back/Spine no CVA tenderness and normal ROM Extremity normal to inspection General Extremety ED: Negative for edema General Extremity: Negative for edema Neuro oriented x3 and CN's II-XII intact bilaterally Sensorium / Orientation: alert Motor Exam: strength 5/5 throughout Psych Mood & Affect: depressed and tearful Skin no rashes or lesions noted and no wounds MDM MDM MDM Narrative Medical decision making narrative: Differential diagnosis includes but not limited to acute coronary syndrome stent occlusion depression anxiety gastroenteritis pneumonia pneumothorax pancreatitis biliary colic My independent interpretation of the chest x-ray is no acute process. EKG was obtained which shows a normal sinus rhythm at a ventricular rate of 80. This EKG and her EKG from yesterday were sent to cardiology, Dr. Leavitt, who reviewed them. 2 sets of cardiac enzymes were obtained 846 and 841. These are up from her initial troponin which was in the 300s. But within acceptable range having just had angioplasty/stent placement. White count 11.5. Normal sodium potassium magnesium. Creatinine 1.06. TSH 3.90 lipase of 30 normal LFTs. Patient was observed here in the department. She ambulated to the bathroom when she got back to the room seemed short of breath and her pulse ox was about 87%. CTA of the chest demonstrates no pulmonary embolism or pneumonia. There was emphysematous changes noted. She received a breathing treatment. She was reambulated and is doing well. Pulse ox 92% with ambulation. She does not have an inhaler at home somata write for 1 with a spacer. Also write for Zofran. She is to schedule early follow-up with cardiology. Patient and family comfortable with this plan. History & Record Review Discussion w/independent historian: Patient and Family Additional record(s) reviewed:: Prior inpatient record, Prior ED visit and Prior labs Lab Data Attestation: I reviewed the patient's lab results. Labs: Laboratory Results - last 24 hr 02/06/25 02/06/25 09:33 11:31 WBC 11.5 H RBC 3.70 L Hgb 11.9 L Hct 34.5 L MCV 93.2 MCH 32.2 H MCHC 34.5 RDW Std Deviation 48.8 H RDW Coeff of Gerber 14.3 Plt Count 216 MPV 10.3 Immature Gran % (Auto) 0.500 Neut % (Auto) 76.3 H Lymph % (Auto) 14.7 L [place] % (Auto) 6.0 Eos % (Auto) 1.7 Baso % (Auto) 0.8 Absolute Neuts (auto) 8.7 H Absolute Lymphs (auto) 1.68 Nucleated RBC % 0 Sodium 138 Potassium 4.6 Chloride 106 Carbon Dioxide 19.9 L Anion Gap 13 BUN 21 H Creatinine 1.06 Estim Creat Clear Calc 50.77 Est GFR (MDRD) Non-Af 58 L BUN/Creatinine Ratio 19.6 Glucose 110 H Calcium 9.4 Magnesium 2.1 Total Bilirubin 0.51 Direct Bilirubin 0.17 AST 26 ALT 17 Alkaline Phosphatase 74 Troponin T High Sens 846 H* D Troponin T Hi Sens 2 Hr 841 H* Total Protein 6.9 Albumin 3.7 Globulin 3.3 Lipase 30 TSH 3.970 Radiography Diagnostic Testing: Clinical Impression(s) from Imaging Studies Chest X-Ray 02/06/25 09:09 IMPRESSION: No Acute Findings. Reading Location: [facility]1 Chest CTA 02/06/25 12:05 IMPRESSION: No evidence of pulmonary embolism. Emphysematous changes. Reading Location: [facility] EKG Initial EKG: Attestation: I personally reviewed and interpreted this EKG as follows: Comments: Normal sinus rhythm ventricular rate of 80 bpm. Management Discussion w/another healthcare provider: [employer] (Dr Leavitt (Cardiology)) Discharge Plan Triage Chief Complaint: Palpitations ED Provider: Inderjit Gilmore Dx/Rx/DC Orders Clinical Impression: Nausea, CAD (coronary artery disease), Fatigue, Emphysema of lung Prescriptions: New albuterol sulfate [Ventolin HFA] 90 mcg/actuation HFA aerosol inhaler 2 puff inhalation Q4H PRN PRN (Reason: Wheezing) Qty: 1 0RF Rx Instructions: with spacer ondansetron 4 mg tablet,disintegrating 4 mg PO Q6H PRN PRN (Reason: Nausea) Qty: 15 0RF No Action lisinopril 2.5 mg tablet 2.5 mg PO DAILY 90 Days Qty: 90 3RF Patient Comments: pt told yesterday if BP is less than 99, not to take med. pt did not take yesterday (02/05/25) metoprolol succinate [Toprol XL] 25 mg tablet extended release 24 hr 25 mg PO DAILY 90 Days Qty: 90 3RF Brilinta 90 mg tablet 90 mg PO BID 90 Days Qty: 180 3RF atorvastatin 40 mg tablet 40 mg PO QHS 90 Days Qty: 90 3RF aspirin 81 mg Tablet,Delayed Release (Dr/Ec) 81 mg PO DAILY@0800 90 Days Qty: 90 3RF ascorbate calcium (vitamin C) 500 mg tablet 1 g PO DAILY Azo Cranberry Plus Probiotic 250-30-15 mg tablet 2 tab PO DAILY Primary Care Provider: Florin Bailey Referrals: Florin Bailey DO [Primary Care Provider] - Activity Restrictions/Additional Instructions: 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 Please follow-up with your primary care doctor as well. I wrote Zofran for your nausea. Also wrote you albuterol inhaler as the CT of your chest today shows emphysema of your lungs. Please discuss this further with your doctor. Print Language: Nepali
[2025-02-06] MEDS: Ondansetron 4 MG/2 ML Vial IV (09:37)
[2025-02-06 09:39] LABS: Absolute Lymphocyte Count 1.68 X10^3/uL (0.83-4.51); Absolute Neutrophil Count 8.7 X10^3/uL (2.0-7.7); Basophil# 0.09 X10^3/uL; Basophil% 0.8 % (0-1); Eosinophils% 1.7 % (0-5); Hematocrit 34.5 % (37-47); Hemoglobin 11.9 g/dL (12.0-15.0); Lymphocyte # 1.68 X10^3/ul (0.83-4.51); Lymphocyte % 14.7 % (19-41); Mean Corp Hgb Conc 34.5 g/dL (32-36); Mean Corpuscular Hgb 32.2 pg (27.0-32.0); Mean Corpuscular Volume 93.2 fL (81-99); Mean Platelet Vol. 10.3 fl (6.2-12.0); Monocyte# 0.69 X10^3/uL; NRBC Flagged by Analyzer 0 % (0-5); Neutrophil # 8.73 X10^3/uL (2.7-7.7); Neutrophil % 76.3 % (47-70); Platelet Count 216 K/mm3 (150-450); RBC Distribution Width CV 14.3 % (11.6-14.6); RBC Distribution Width SD 48.8 fl (35.1-43.9); White Blood Count 11.5 K/mm3 (4.4-11.0)
[2025-02-06 10:05] LABS: Lipase 30 U/L (13-75); Magnesium 2.1 mg/dL (1.5-2.2)
[2025-02-06 10:10] LABS: AST(SGOT) 26 U/L (<=31); Alanine Aminotransfer ALT/SGPT 17 U/L (<=34); Albumin, Serum 3.7 g/dL (3.4-4.8); Alkaline Phosphatase 74 U/L (35-104); Anion Gap 13 (5-15); BUN 21 mg/dL (4-19); BUN/Creat Ratio 19.6 RATIO (10-20); Bilirubin, Direct 0.17 mg/dL (0.00-0.30); Calcium,Total 9.4 mg/dL (7.6-11.0); Carbon Dioxide 19.9 mmol/L (21.0-32.0); Chloride 106 mmol/L (98-108); Creatinine, Serum 1.06 mg/dL (0.70-1.20); EST Glomerular Filtration Rate 58 (>60); Estimated Creatinine Clearance 50.77 ml/min (50-250); Globulin 3.3 g/dL (2.2-4.2); Glucose 110 mg/dL (70-99); Potassium 4.6 mmol/L (3.3-5.1); Protein, Total 6.9 g/dL (5.9-8.4); Sodium Level 138 mmol/L (133-145); Total Bilirubin 0.51 mg/dL (0.00-1.30); Troponin T High Sensitivity 846 ng/L (<=14)
--- NOTE | 2025-02-06 11:37 | ED.RN ---
Patient ambulated to bathroom to provide urine sample, patient forgot to use cup. When patient was placed back on monitor spO2 was 87% on RA.
--- NOTE | 2025-02-06 12:05 | CT_ITS ---
PROCEDURE: CTA CHEST W/WO CONTRAST 02/06/2025 REASON FOR EXAM: HYPOXIA PULMONARY EMBOLISM TECHNIQUE: CTA axial imaging of the chest with intravenous contrast. Coronal and Sagittal reconstruction series were provided. 3D, 3D post processing, 3D reconstructions, Maximum intensity projection (MIPs) Volume rendering and Shaded surface rendering was provided. PATIENT PREPARATION: Per protocol CONTRAST: Isovue 370 VOLUME: 87 mL One or more dose reduction techniques were used (e.g., Automated exposure control, adjustment of the mA and/or kV according to patient size, use of iterative reconstruction technique). RADIATION DOSE SUMMARY: CTDlvol: 7.3 mGy DLP: 260.33 mGycm . COMPARISON: Comparison is made with prior chest radiograph done earlier in the day. FINDINGS: Hardware: EKG electrodes. Lymph nodes: Calcified right infrahilar lymph node. Heart: Coronary artery calcifications are noted. Thoracic Aorta: No thoracic aortic aneurysm or dissection. Pulmonary Vessels: No evidence of pulmonary emboli. Lungs and Airways: Advanced emphysematous changes are present. Pleura: No pleural effusion. No pneumothorax. Upper Abdomen: Scattered calcified splenic granulomas. Bones: Degenerative changes of the thoracic spine. CT/CTA Chest W/WO Contrast IMPRESSION: No evidence of pulmonary embolism. Emphysematous changes. Reading Location: [facility]
--- NOTE | 2025-02-06 12:07 | CM.ED ---
Social work Reason for referral: coping with new diagnosis Referral source: Dr. Gilmore Per Dr. Gilmore, patient had a new stent placed two days ago and returned to the [facility] ED this morning for not feeling well. This SW entered patient's room, introducing self and role at [facility] to patient, patient's , and patient's son. This SW knew patient from completing patient's initial admission assessment on 02/04/25 and patient confirmed remembering SW. Patient expressed feeling fine last evening upon returning home, but patient stated waking up this morning and feeling off. Patient stated knowing something was wrong due to having a stent placed in September 2024 and not feeling this poorly after. Patient stated patient's oxygen dropped when ambulating to the restroom (this was confirmed by nursing) and patient stated knowing something is wrong. SW offered supports and resources, but patient declined all resources and adamantly, but respectfully, stated this being medical. Patient thanked SW for time spent and declined further needs at this time. Dr. Gilmore updated. Torri Morrison, COMPUTER SYSTEMS TECHNICIAN, SUPERVISOR [employer]
[2025-02-06 12:24] LABS: Troponin T High Sens 2 HR 841 ng/L (<=14)
[2025-02-06] MEDS: Ipratropium/Albuterol Sulfate 3 ML AMPUL.NEB INHALATION (13:10)
[2025-02-06 13:57] LABS: Bacteria 0 SEEN /hpf (None Seen); Mucous, Urine 0 SEEN /hpf (<or=2+)
[2025-02-06 14:52] LABS: Color, Urine Straw (Yellow); Glucose, Dipstick Normal (Normal); Ketone-Dipstick Negative (Negative); Leukocyte Esterase-Dipstick Negative /ul (Negative); Nitrite-Dipstick Negative (Negative); Occult Blood-Urine 150 /ul (Negative); Protein-Dipstick 30 mg/dl (Negative); Specific Gravity, Urine 1.005 (1.002-1.030); Urine Bilirubin Dipstick Negative (Negative); Urine Clarity Clear (Clear); Urine Urobilinogen Normal (Normal)
[2025-02-06 15:26] LABS: White Blood Cells 0-5 SEEN /hpf (0-5)
[2025-02-06 15:27] LABS: Red Blood Cells-Urine 0-5 SEEN /hpf (0-5); Squamous Epithelial Cells - UA 0-5 SEEN /hpf (5-10)
== END 2025-02-06 14:03 | disposition home or self-care (01) ==
PROVIDERS: Emergency Provider Emergency Medicine; Visit Provider Emergency Medicine
DX: R00.2 Palpitations (principal); J43.9 Emphysema, unspecified; R53.83 Other fatigue; R11.0 Nausea; I25.10 Atherosclerotic heart disease of native coronary artery without angina pectoris; I25.2 Old myocardial infarction; F17.210 Nicotine dependence, cigarettes, uncomplicated; Z95.5 Presence of coronary angioplasty implant and graft
CPT/HCPCS: 71045; 71275; 80048; 80076; 81001; 83690; 83735; 84443; 84484; 85025; 93005; 94640; 96374; 99284; Q9967; A4216; J2405

== ENCOUNTER → 2025-02-12 | Outpatient (CLI) | payer MEDICARE, SELFPAY ==
[2024-11-29 09:23] VITALS: BMI 25.9
--- NOTE | 2025-02-12 10:00 | CR.HP_ITS ---
CR - History & Physical General Arrival date:: 02/12/25 Arrival time:: 10:00 Date of Referral:: 02/06/25 Date of CR Evaluation:: 02/12/25 Referring Physician: Dr. Galindo Primary Diagnosis: PCI with stenting History of Present Cardiac Event Onset Date Acute Myocardial Infarction within 12 months:: Yes PTCA or coronary stenting:: Yes Vessel: Mid circumflex stenting and PTCA to D1 Medications Ambulatory Orders ?Medication ?Instructions ?Recorded aspirin 81 mg tablet,delayed 81 mg PO DAILY@0800 heart health 10/11/24 release 90 days #90 tabs atorvastatin 40 mg tablet 40 mg PO QHS cholesterol 90 days 10/26/24 #90 tabs lisinopril 2.5 mg tablet 2.5 mg PO DAILY blood pressu re 90 10/26/24 days #90 tabs metoprolol succinate 25 mg 25 mg PO DAILY heart 90 day s #90 10/26/24 tablet,extended release 24 hr tabs (Toprol XL) ticagrelor 90 mg tablet (Brilinta) 90 mg PO BID blood thinner 90 days 10/26/24 #180 tabs albuterol sulfate 90 mcg/actuation 2 puff inhalation Q 4H PRN PRN 02/06/25 aerosol inhaler (Ventolin HFA) Wheezing ##1 ascorbate calcium (vitamin C) 500 1 g PO DAILY 5 mg tablet cranberry [id number] 2 tab PO DAILY supplement coagulans 250 mg-30 mg-15 mg tablet (Azo Cranberry Plus Probiotic) ondansetron 4 mg disintegrating 4 mg PO Q6H PRN PRN Na usea #15 tabs 02/06/25 tablet nitroglycerin 0.4 mg sublingual 0.4 mg sublingual Q5-1 5M PRN chest 02/07/25 tablet pain #25 tabs Allergies Allergies Penicillins Allergy (Verified 02/07/25 16:08) Hives Sulfa (Sulfonamide Antibiotics) Adverse Reaction (Verified 02/07/25 16:08) Diarrhea Sleep Disorder Evaluation Hx of Sleep Apnea: Yes Do you snore loudly (louder than talking or can be heard through closed doors)?: No Do you often feel tired/ fatigued/ sleepy during daytime?: No Has anyone observed you stop breathing during sleep?: No History of Hypertension (for STOP score): No STOP Results: Negative Advanced Directives Advanced Directives Do you have a Healthcare Power of Air Crew Supervisor?: No Living Will: No Advance Directives Information Provided: No Advance Directives on File: No DNR Order?:: No Past Medical History Covid-19 Screening Physicial Symptoms Other Clinical Concerns Exposure Risk Pertinent Comorbidities 65 years or older:: Yes Has a chronic lung disease or moderate to severe asthma:: Yes Has a serious heart condition:: Yes Past Medical Illness Medical History UTI (urinary tract infection) Atherosclerosis of coronary artery of [place] heart without angina pectoris Myocardial infarct Past Surgical History Surgical History History of carpal tunnel surgery of left wrist History of coronary artery stent placement (02/04/25) Family History Summary Family History Father CAD (coronary artery disease) CABG age 68; CVA (cerebral vascular accident) Myocardial infarction Mother Cancer Cervical, Melanoma, Colon Social History Smoking History Smoking Status: Current every day smoker Years Smokin
--- NOTE | 2025-02-12 10:00 | PCM.CR.HP2 ---
CR - History & Physical General Arrival date:: 02/12/25 Arrival time:: 10:00 Date of Referral:: 02/06/25 Date of CR Evaluation:: 02/12/25 Referring Physician: Dr. Galindo Primary Diagnosis: PCI with stenting History of Present Cardiac Event Onset Date Acute Myocardial Infarction within 12 months:: Yes PTCA or coronary stenting:: Yes Vessel: Mid circumflex stenting and PTCA to D1 Medications Ambulatory Orders ?Medication ?Instructions ?Recorded aspirin 81 mg tablet,delayed 81 mg PO DAILY@0800 heart health 10/11/24 release 90 days #90 tabs atorvastatin 40 mg tablet 40 mg PO QHS cholesterol 90 days 10/26/24 #90 tabs lisinopril 2.5 mg tablet 2.5 mg PO DAILY blood pressure 90 10/26/24 days #90 tabs metoprolol succinate 25 mg 25 mg PO DAILY heart 90 days #90 10/26/24 tablet,extended release 24 hr tabs (Toprol XL) ticagrelor 90 mg tablet (Brilinta) 90 mg PO BID blood thinner 90 days 10/26/24 #180 tabs albuterol sulfate 90 mcg/actuation 2 puff inhalation Q4H PRN PRN 02/06/25 aerosol inhaler (Ventolin HFA) Wheezing ##1 ascorbate calcium (vitamin C) 500 1 g PO DAILY 02/06/25 mg tablet cranberry [id number] 2 tab PO DAILY supplement 02/06/25 coagulans 250 mg-30 mg-15 mg tablet (Azo Cranberry Plus Probiotic) ondansetron 4 mg disintegrating 4 mg PO Q6H PRN PRN Nausea #15 tabs 02/06/25 tablet nitroglycerin 0.4 mg sublingual 0.4 mg sublingual Q5-15M PRN chest 02/07/25 tablet pain #25 tabs Allergies Allergies Penicillins Allergy (Verified 02/07/25 16:08) Hives Sulfa (Sulfonamide Antibiotics) Adverse Reaction (Verified 02/07/25 16:08) Diarrhea Sleep Disorder Evaluation Hx of Sleep Apnea: Yes Do you snore loudly (louder than talking or can be heard through closed doors)?: No Do you often feel tired/ fatigued/ sleepy during daytime?: No Has anyone observed you stop breathing during sleep?: No History of Hypertension (for STOP score): No STOP Results: Negative Advanced Directives Advanced Directives Do you have a Healthcare Power of Assisted Living Nursing Director?: No Living Will: No Advance Directives Information Provided: No Advance Directives on File: No DNR Order?:: No Past Medical History Covid-19 Screening Physicial Symptoms Other Clinical Concerns Exposure Risk Pertinent Comorbidities 65 years or older:: Yes Has a chronic lung disease or moderate to severe asthma:: Yes Has a serious heart condition:: Yes Past Medical Illness Medical History UTI (urinary tract infection) Atherosclerosis of coronary artery of [place] heart without angina pectoris Myocardial infarct Past Surgical History Surgical History History of carpal tunnel surgery of left wrist History of coronary artery stent placement (02/04/25) Family History Summary Family History Father CAD (coronary artery disease) CABG age 68; CVA (cerebral vascular accident) Myocardial infarction Mother Cancer Cervical, Melanoma, Colon Social History Smoking History Smoking Status: Current every day smoker Years Smokin Packs Smoked per Day: 0.5 Hx Tobacco Use: Yes Alcohol Use Alcohol Usage: No Substance Abuse Hx Substance Use: No Occupation Occupation (List type of work in comments):: Retired Social Environment Status Marital Status: Current Living Arrangements Living Environment:: Spouse Children How many children do you have?: 2 Do any of your children live nearby?: Yes Safety Do you feel safe in your surroundings?: Yes Assistance Do you need any assistance at home?: no Review of Systems Review of Systems Hints Review of Present Symptoms: Reports Shortness of Breath with Exertion, Dizziness/Lightheadedness, Fatigue, Heart Arrhythmia/Irregularities, Appetite - Special Diet and Sleep - Normal; Denies Shortness of Breath at Rest, PVD, Operative Discomfort, Angina, Wound Healing, Appetite - Normal or Sexual Changes Pain Is Patient Pain Free?: Yes Risk Factor Assessment Chief Complaint Chief Complaint: PCI with stenting Vital Signs Pulse Ox: 99 Blood Pressure: 126/76 Pulse Pulse Rate: 98 Hypertension How long have you been treated?: since September Blood Pressure Sitting - Right Arm: 126/76 Stress Stress: Recent (health) Obesity Height: 5 ft 7 in Weight:: 158 lb Weight in Pounds: 158.0 lbs Body Mass Index (BMI): 24.7 Nutritional Referral for Obesity: No Physical Inactivity Physical Inactivity: Reg Exercise 30 min/day Risk Stratification Risk Guidelines: Moderate Risk: Risk Factor for Diabetes, Risk Factor for Obesity, Risk Factor for Hypertension, Risk Factor for Sedentary Lifestyle and Risk Factor for Depression and Highest Risk: Risk Factor for Smoking and Risk Factor for Dyslipidemia For Smoking Smoking Risk Guidelines For Dyslipidemia Dyslipidemia Risk Guidelines For Diabetes Mellitus Diabetes Risk Guidelines For Obesity/Overweight Obesity/Overweight Risk Guidelines For Hypertension Hypertension Risk Guidelines For Sedentary Lifestyle Sedentary Lifestyle Risk Guidelines For Depression Depression Risk Guidelines Family History Family History Father CAD (coronary artery disease) CABG age 68; CVA (cerebral vascular accident) Myocardial infarction Mother Cancer Cervical, Melanoma, Colon Motivation Motivation to Participate On a scale of 1 to 10, how prepared are you to commit to attending program?: 10 What do you see as barriers to successfully being able to complete the program?: nothing What do you see as the benefits of succesfully completing the program? In other words, what do you hope to get out of participating in the program?: more energy Are there issues you are dealing with that will interfere with completing the program?: no Do you have a spouse or signficant other, family or friends who will help support you to complete the program?: yes
[2025-02-12 10:06] VITALS: BP 126/76; PULSE 98; O2SAT 99
--- NOTE | 2025-02-12 10:06 | PCM.CR.ITP ---
Diagnosis General Information Admitting Diagnosis: PCI with stenting Personal Learning Style:: Audio/Visual Barriers to Learning: No Barriers Stage of change r/t lifestyle modifications:: Contemplation Gave educational material for:: Treating Heart Disease, How The Heart Works, What it means to have Heart Disease, How Coronary Artery Disease is Diagnosed, Heart Procedures, What Heart Medications Do, Risk Factors & Modifications, Living an Active Life, Nutrition, Emotions & Heart Disease, Stress Management & Relaxation and Sleep Disorders & Heart Disease Education/Goals Cardiac Rehabilitation Goals Personal Goals: Initial Assessment: Quit smoking (participate in smoking cessation, Improve management of stress and emotions, Improve energy level, Get back to work, or to resume activities faster and Improve knowledge of cardiac disease Scale for measuring improvement of personal goals Diagnosis & Disease Process Outcomes/Goals: Pt IDs own risk factors & lifestyle modifications by Session 10, Verbalizes symptoms of angina & response by session 3., Pt independently manages and Other Additional Outcomes/Goals: Plan/Interventions: Assist Pt to ID & engage in lifestyle modification to reduce CVD risk, Instruct on individual risk factors, Review symptoms of angina & emergency actions, Review secondary diagnosis & identify educational needs. and Other see comment 30 day Reassessments:: Not Met 30 day Reassessments:: Not Met 30 day Reassessments:: Not Met 30 day Reassessments:: Not Met Final Reassessments:: Not Met Safety Referral to Physical Therapy: No Referral to [facility] Case Management: No Fall Risk Assessed:: Yes Assistive Devices:: None Exercise - Initial Assessment Visit Date of Eval: 02/12/25 (initial eval ) Mets: Pre-: >3 METS for 30 minutes by discharge, >5 METS for 30 minutes by discharge, >7 METS for 30 minutes by discharge and Unable to meet goal due to: (see comment below) Physician Prescribed Exercise Modalities: Treadmill, Rower, Schwinn Airdyne AD-7, SciFit Stepper, SciFit Pro-II Ergometer and SciFit Lateral [place] Frequency: 3x/week for 12 weeks [36 sessions] Intensity: 60-80% of age predicted maximum heart rate reserve Duration: 30 - 45 minutes Current METSs:: 3 Target Heart Rate:: 92-116 Resting Blood Pressure: 126/76 EKG Type: NSR Outcomes & Goals Goals:: Verbalizes understanding of THR, RPE & goal METS by session 6, Documents in home exercise log/reports 30 min aerobic 5 day/wk by DC, Demonstrates accurate pulse taking by DC and Other additional outcome/goals: see below Intervention & Plan Exercise Program Goals: Instruct on personal THR & RPE, Instruct on MET level & personal MET goal, Show patient to take own pulse /validate performance until accurate, Instruct on home exercise and Other additional plan/int Physical Activity Home Exercise Physical Activity - Home Exercise: Safe Exercise, Warm-up, Self-monitoring, Cool-Down, Home Exercise > 30 min Daily and Sitting Time <3 hours/daily Outcomes & Goals Outcomes/Goals: Demonstrates correct Warm-up/exercise Cool-Down (S3) if = 2.5 METs, Verbalizes symptoms of exercise intolerance by Session 3 (S3), Demonstrate safe equipment use (S3) & follows exercise prescrition (6) and Other: See below Intervention & Plan Plan/Intervention: Instruct warm-up & cool-down if exercising at > 2 METs, Instruct on symptoms of exercise intolerance & actions to take, Instruct & monitor on saf, Assess intial functional capacity & safety risk and Other See below Nutrition - Initial Assessment Program Goals Nutrition Program Goals Patient has diagnosis of Hyperlipidemia (ICD E78)?: Yes Visit Date of Eval: 02/12/25 (initial eval) Cholesterol/Lipids (Other Core Measures) Determine presence & major risk factors that modify LDL goal: Cigarette smoking, Hypertension or hypertensive medication, Low HDL cholesterol <40 mg/dL*, Family history of premature CHD in Male < 55 years: female <65 yearsFa and Age men > 45 years; women >/= 55 years Outcomes/Goals: Pt IDs own risk factors & lifestyle modifications by Session 10, Verbalizes symptoms of angina & response by session 3., Pt independently manages and Other Additional Outcomes/Goals: Intervention/Plan: Advocate for lipid panel cholesterol medication if applicable, Instruct on personal lipid levels & lipid goals/NCEP guidelines, Instruct on cholesterol and Other additional plan/int Diabetes (Other Core Measures) Diabetes Type: Not Applicable Weight Mgt (Other Care) Height: 5 ft 7 in Weight:: 158 lb BMI: 24.7 Diagnosis Overweight/Obesity BMI> 30% ICD-10 E66: No Diagnosis High BMI/Morbid Obesity BMI> 35% ICD-10 Z68: No Outcomes/Goals: Pt sets, maintains & shows weight loss goal & trend during rehab and Other additional outcomes/goals Intervention/Plan: Instruct on ideal BMI & set weight loss goal w/patient, Assist pt to ID & incorporate diet changes for weight loss by S9, Refer to Structured Weight Loss program as appropriate, Encourage goal of using 250-300dcal per session for weight loss and Other additional plan/interventions Healthy Eating Habits Will attend diet classes:: Yes Outcomes/Goals:: Consume diet rich in vegs,fruits,whole grain/high fiber,fish,lean meat, Limit sat/trans fats,cholesterol & added salts & sugars and Other additional outcome/goals: Intervention/Plan:: Assess current eating habits and Other Additional plan/interventions Education Gave educational materials for:: Signs & symptoms of hypoglycemia, Signs & symptoms of hyperglycemia, Relate diabetes to coronary artery disease and Healthy eating Core - Initial Assessment Visit Date of Eval: 02/12/25 (initial eval ) Medication Compliance Preventative Medication(s):: Aspirin, CT inhibitor, Ticagrelor/P2Y12 inhibitor, Statin/lipid and Beta brandy H/O mental health issues: depression, anxiety, or addiction?: No Doesn?t believe in the benefits of treatment?: No Believes medications are unnecessary or harmful?: No Has a concern about medication side effects?: No Outcomes/Goals: Verbalizes medications,desired effect & common side effects @ DC, Pt self-reports following medication regimen, Keeps card in wallet w/medications listed by DC and Other additional outcome/goals: Interventions/plans: Instruct on medication effects & side effects, Review medication list w/patient every two weeks, Instruct importance of taking meds as ordered & assist problem solving and Other additional Tobacco Use Tobacco Use: Cigarettes How many cigarettes do you smoke per day?: 10 Years Smokin Outcomes/Goals: Smoking cessation achieved or maintained by discharge, Identify aids/strategies for achieving smoking cessation by session 6 and Other additional outcome/goals Interventions/plan: Instruct on effects of smoking & provide smoking cessation resource, Assist pt to set quit date & provide encouragement, Assist pt to develop strategies to achieve/maintain quit date, Assist pt w/nicotine replacement & medication for cessation success and Other additional plan/interventions Hypertension Resting Blood Pressure:: 126/76 [place] [employer] Hypertension Guidelines Outcomes/Goals: Able to verbalize/achieve optimal blood pressure <130/80, Incorporates diet changes & exercise for blood pressure control by DC and Other additional outcomes/goals Interventions/plan: Instruct on optimal blood pressure, hypertension & medications, Instruct on effects of sodium, alcohol, stress, exercise &hypertension and Other additional plan/interventions Tobacco Cessation Referral Smoking Cessation Referral:: Yes Individual Education/Counseling:: Yes Education Schedule Given:: Yes Psychosocial - Initial Assess VIsit Date of Eval: 02/12/25 (initial eval) History of previous Mental disease:: No Target Goals Target Goals Psychosocial Test Tool Used:: [employer] DCWafers QOL Cardiac and PHQ-9 Questionnaire phq-9 Severity See PHQ-9 Score: 3 Referral to Behavioral Health PS - Interventions: Yes: Attend Stress Management Classes Outcomes/Goals: See list Psychosocial Outcomes/Goals:: ID's personal stressors & 2 strategies to manage stress by discharge and Other Additional outcome/goals: Intervention/Plan: See List Interventions/Plan:: Assess stressors,coping strategies & signs of derpression on admission, Instruct/assist pt to develop coping & personal stress Mgt strategies, Refer to Behavioral Health if appropriate, Refer to Physician if appropriate, Instruct patient to recognize signs & symptoms of depression, Instruct patient to recog and Other additional plan/intervention Patient Health Questionnaire PHQ-9 Screening Initial Assessment: 1. Little interest or pleasure in doing things: Not at all 2. Feeling down, depressed, or hopeless: Not at all 3. Trouble falling or staying asleep, or sleeping too much: Not at all 4. Feeling tired or having little energy: Several days 5. Poor appetite or overeating: Several days 6. Feeling bad about yourself -- or that you are a failure or have let yourself or your family down: Not at all 7. Trouble concentrating on things, such as reading the newspaper or watching television: Several days 8. Moving or speaking so slowly that other people could have noticed. Or the opposite - being so fidgety or restless that you have been moving around a lot more than usual: Not at all 9. Thoughts that you would be better off , or of hurting yourself in some way: Not at all Total Score: 3 NISHANT-Q SV Test Statements CAD is a disease of the arteries in the heart: False Examples of risk factors for heart disease: True Angina is chest pain or discomfort: True The benefits of resistance training include: True Eating more meat and dairy products: False Anti-platelet medications such as aspirin are important: True The only effective way to manage stress: True An exercise warm-up slowly increases heart rate: I Don't Know Prepared, processed foods usually have high sodium: True Depression is common after a heart attack: I Don't Know The statin medications lower cholesterol: True To control blood pressure, lower the amount of sodium: True If someone gets chest discomfort during walking: False Transfats are partially hydrogenated vegetable oils: True Sleep apnea that is not treated increases the risk: True To control cholesterol, one should become a vegetarian: False Someone knows if he/she is exercising at the right level: True Diabetes cannot be prevented with exercise & health eating: False Stress is a large risk for heart attack: True A diet that can help lower blood pressure is rich in: True Total Score Total Correct Responses: 16 Self-Efficacy 6-Item Scale Initial Assessment: We would like to know how confident you are in doing certain activities. Please select your confidence level for: Fatigue Select Number: 6 Physical Discomfort or Pain Select Number: 6 Emotional Distress Select Number: 6 Other Symptoms or Health Problems Select Number: 6 Different Tasks and Activities Select Number: 6 Medication Select Number: 6 Total Score:: 6 Nutrition Survey Nutrition Survey Instructions Scoring Instructions Nutrition Survey Initial: Have you lost >10 lbs over the past 2 months without trying?: No Are you following a special diet at home for diabetes, low fat, or low salt?: Yes Are you interested in meeting with a dietitian for help understanding your diet?: No Do you eat less than 3 meals a day?: No Do you eat fatty meats (noonan, sausage, ribs, etc), fried foods, desserts, large amounts of salad dressings, margarine, butter, or cheese most days?: Yes Do you have food allergies? [Enter types in comment field]: No Do you eat in restaurants more than 3 times a week?: No Do you season food with salt, seasoning salt, or garlic salt?: Yes Do you used canned, boxed, frozen meals, or soups, seasoning packets?: Yes Total Score:: 4 Exercise - 30-day Assessment Physician Prescribed Exercise Modalities: Treadmill, RowerTremayne AD-7, SciFit Stepper, SciFit Pro-II Ergometer and SciFit Lateral [place] Exercise - 60-day Assessment Physician Prescribed Exercise Modalities: Treadmill, RowerTremaynene AD-7, SciFit Stepper, SciFit Pro-II Ergometer and SciFit Lateral [place] Exercise - 90-day Assessment Physician Prescribed Exercise Modalities: Treadmill, Rower, Schwinn Airdyne AD-7, SciFit Stepper, SciFit Pro-II Ergometer and SciFit Lateral Zipper Trimmer Hand Exercise - Final/Discharge Physician Prescribed Exercise Modalities: Treadmill, Rower, Schwinn Airdyne AD-7, SciFit Stepper, SciFit Pro-II Ergometer and SciFit Lateral Zipper Trimmer Hand Frequency: 3x/week for 12 weeks [36 sessions] Intensity: 60-80% of age predicted maximum heart rate reserve Current METSs:: 3 Target Heart Rate:: 92-116 Nutrition - 30-Day Assessment Weight Mgt (Other Care) Height: 5 ft 7 in Weight:: 158 lb BMI: 24.7 Nutrition - 60-Day Assessment Weight Mgt (Other Care) Height: 5 ft 7 in Weight:: 158 lb BMI: 24.7 Core - 30-Day Assessment Tobacco Use Years Smokin Core - Final Assessment Hypertension Resting Blood Pressure:: 126/76 [place] [employer] Hypertension Guidelines Core - 60-Day Assessment Hypertension Resting Blood Pressure:: 126/76 [place] [employer] Hypertension Guidelines Psychosocial - 30-Day Assess Target Goals Target Goals Referral to Behavioral Health PS - Interventions: Yes: Attend Stress Management Classes Psychosocial - 60-Day Assess Target Goals Target Goals Referral to Behavioral Health PS - Interventions: Yes: Attend Stress Management Classes Psychosocial - 90-Day Assess Target Goals Target Goals Referral to Behavioral Health PS - Interventions: Yes: Attend Stress Management Classes Psychosocial - Final Assessmen Target Goals Target Goals Psychosocial Test phq-9 Severity See PHQ-9 Score: 3 Referral to Behavioral Health PS - Interventions: Yes: Attend Stress Management Classes Nutrition - 90-Day Assessment Weight Mgt (Other Care) Height: 5 ft 7 in Weight:: 158 lb BMI: 24.7 Nutrition - Final Assessment Program Goals Patient has diagnosis of Hyperlipidemia (ICD E78)?: Yes Weight Mgt (Other Care) Height: 5 ft 7 in Weight:: 158 lb BMI: 24.7
[2025-02-12 10:13] VITALS: BP 126/76
[2025-02-12 10:43] VITALS: BP 126/76; BMI 24.7
== END | disposition home or self-care (01) ==
LOC: CR 09:55
PROVIDERS: Referring Provider Specialist; Visit Provider Specialist
DX: I25.10 Atherosclerotic heart disease of native coronary artery without angina pectoris (principal); Z95.5 Presence of coronary angioplasty implant and graft

== ENCOUNTER 2025-02-18 09:50 | Inpatient (IN) | payer MEDICARE, SELFPAY ==
[2025-02-12 10:43] VITALS: BMI 24.7
[2025-02-18] VITALS (8 sets, daily range): BP systolic 97–140; BP diastolic 56–69; PULSE 71–87; RESP 16–19; TEMP 36.3–36.6; O2SAT 97–100; BMI 25.0; BMI 24.3
--- NOTE | 2025-02-18 10:29 | EDS_ITS ---
HPI <ROBINSON Martinez - Last Filed: 02/18/25 14:12> History of Present Illness Chief Complaint: Abn Labs Narrative Narrative: Patient presenting today after being sent over from her PCPs office due to concerns for a new systolic murmur and a GI bleed. She has a history of CAD, she had a STEMI in September with stent placements and had a cardiac cath with stent placement on 02/04/2025. She follows with Dr. Leavitt in cardiology, she was seen about a week ago and they heard a new systolic murmur. She is scheduled to have an echo on 02/28. She does admit that she has been more fatigued with performing activities. She denies chest pain. Additionally, she has had dark-colored stools, she has been following with her for this, she had a positive Hemoccult on Tuesday and a hemoglobin around 10.4 at that time. She reports that today her labs were rechecked and her hemoglobin was around 9, prompting her PCP to send her in for evaluation. She denies history of GI bleed, fevers, chills, abdominal pain, nausea, vomiting. She is on dual antiplatelet therapy with Brilinta and aspirin. [facility] <ROBINSON Martinez - Last Filed: 02/18/25 14:12> [facility] Medical History Non-ST elevation MA (NSTEMI) Hematuria Hyperlipidemia UTI (urinary tract infection) Atherosclerosis of coronary artery of [place] heart without angina pectoris Myocardial infarct Home Medications ?Medication ?Instructions ?Recorded ?Last Taken ?Type aspirin 81 mg tablet,delayed 81 mg PO DAILY@0800 heart [facility] 10/11/24 02/18/25 Rx release 90 days #90 tabs atorvastatin 40 mg tablet 40 mg PO QHS cholesterol 90 days 10/26/24 02/17/25 Rx #90 tabs lisinopril 2.5 mg tablet 2.5 mg PO DAILY blood pressu re 90 10/26/24 02/04/25 Rx days #90 tabs metoprolol succinate 25 mg 25 mg PO DAILY heart 90 day s #90 10/26/24 02/18/25 Rx tablet,extended release 24 hr tabs (Toprol XL) ticagrelor 90 mg tablet (Brilinta) 90 mg PO BID blood thinner 90 days 10/26/24 02/18/25 Rx #180 tabs albuterol sulfate 90 mcg/actuation 2 puff inhalation Q 4H PRN PRN 02/06/25 Unknown Rx aerosol inhaler (Ventolin HFA) Wheezing ##1 ascorbate calcium (vitamin C) 500 1 g PO DAILY 5 02/05/25 History mg tablet cranberry [id number] 2 tab PO DAILY supplement 02/05/25 History coagulans 250 mg-30 mg-15 mg tablet (Azo Cranberry Plus Probiotic) ondansetron 4 mg disintegrating 4 mg PO Q6H PRN PRN Na usea #15 tabs 02/06/25 02/17/25 Rx tablet nitroglycerin 0.4 mg sublingual 0.4 mg sublingual Q5-1 5M PRN chest 02/07/25 Unknown Rx tablet pain #25 tabs Allergy/AdvReac Type Severity Reaction Status Date / Time Penicillins Allergy Hives Verified 02/18/25 09:51 Sulfa (Sulfonamide AdvReac Diarrhea Verified 02/18/25 09:51 Antibiotics) Family History Father CAD (coronary artery disease) CABG age 68; CVA (cerebral vascular accident) Myocardial infarction Mother Cancer Cervical, Melanoma, Colon Surgical History History of carpal tunnel surgery of left wrist History of coronary artery stent placement (02/04/25) Social History household members: spouse housing: house Smoking Status: Current every day smoker tobacco type: cigarettes
--- NOTE | 2025-02-18 10:29 | EX.ED.DYSGE1 ---
HPI <ROBINSON Martinez - Last Filed: 02/18/25 14:12> History of Present Illness Chief Complaint: Abn Labs Narrative Narrative: Patient presenting today after being sent over from her PCPs office due to concerns for a new systolic murmur and a GI bleed. She has a history of CAD, she had a STEMI in September with stent placements and had a cardiac cath with stent placement on 02/04/2025. She follows with Dr. Leavitt in cardiology, she was seen about a week ago and they heard a new systolic murmur. She is scheduled to have an echo on 02/28. She does admit that she has been more fatigued with performing activities. She denies chest pain. Additionally, she has had dark-colored stools, she has been following with her for this, she had a positive Hemoccult on Tuesday and a hemoglobin around 10.4 at that time. She reports that today her labs were rechecked and her hemoglobin was around 9, prompting her PCP to send her in for evaluation. She denies history of GI bleed, fevers, chills, abdominal pain, nausea, vomiting. She is on dual antiplatelet therapy with Brilinta and aspirin. [facility] <ROBINSON Martinez - Last Filed: 02/18/25 14:12> [facility] Medical History (Updated 02/18/25 @ 16:[address] Devon Yousif DO) GERD (gastroesophageal reflux disease) Smoker CPAP (continuous positive airway pressure) dependence Non-ST elevation [place] (NSTEMI) Hematuria UTI (urinary tract infection) Hyperlipidemia Atherosclerosis of coronary artery of [place] heart without angina pectoris Myocardial infarct Home Medications ?Medication ?Instructions ?Recorded ?Last Taken ?Type aspirin 81 mg tablet,delayed 81 mg PO DAILY@0800 [facility] 10/11/24 02/18/25 Rx release 90 days #90 tabs atorvastatin 40 mg tablet 40 mg PO QHS cholesterol 90 days 10/26/24 02/17/25 Rx #90 tabs lisinopril 2.5 mg tablet 2.5 mg PO DAILY blood pressure 90 10/26/24 02/04/25 Rx days #90 tabs metoprolol succinate 25 mg 25 mg PO DAILY heart 90 days #90 10/26/24 02/18/25 Rx tablet,extended release 24 hr tabs (Toprol XL) ticagrelor 90 mg tablet (Brilinta) 90 mg PO BID blood thinner 90 days 10/26/24 02/18/25 Rx #180 tabs albuterol sulfate 90 mcg/actuation 2 puff inhalation Q4H PRN PRN 02/06/25 Unknown Rx aerosol inhaler (Ventolin HFA) Wheezing ##1 ascorbate calcium (vitamin C) 500 1 g PO DAILY 02/06/25 02/05/25 History mg tablet cranberry [id number] 2 tab PO DAILY supplement 02/06/25 02/05/25 History coagulans 250 mg-30 mg-15 mg tablet (Azo Cranberry Plus Probiotic) ondansetron 4 mg disintegrating 4 mg PO Q6H PRN PRN Nausea #15 tabs 02/06/25 02/17/25 Rx tablet nitroglycerin 0.4 mg sublingual 0.4 mg sublingual Q5-15M PRN chest 02/07/25 Unknown Rx tablet pain #25 tabs Allergy/AdvReac Type Severity Reaction Status Date / Time Penicillins Allergy Hives Verified 02/18/25 09:51 Sulfa (Sulfonamide AdvReac Diarrhea Verified 02/18/25 09:51 Antibiotics) Family History Father CAD (coronary artery disease) CABG age 68; CVA (cerebral vascular accident) Myocardial infarction Mother Cancer Cervical, Melanoma, Colon Surgical History (Updated 02/18/25 @ 14:27 by Dominga Velasquez) History of coronary artery stent placement History of carpal tunnel surgery of left wrist History of coronary artery stent placement (02/04/25) Social History household members: spouse housing: house Smoking Status: Current every day smoker tobacco type: cigarettes second hand exposure: No ROS <ROBINSON Martinez - Last Filed: 02/18/25 14:12> ROS ED Constitutional Constitutional ED: Denies chills or fever(s) Cardiovascular Cardiovascular: Denies chest pain or palpitations Respiratory/Chest Respiratory/Chest: Denies cough or dyspnea Gastrointestinal Gastrointestinal: Reports melena; Denies abdominal pain, nausea or vomiting Musculoskeletal Musculoskeletal: Denies arthralgias or myalgias Integumentary Denies rash Neurologic Neurologic: Reports weakness EXAM <ROBINSON Martinez - Last Filed: 02/18/25 14:12> Physical Exam Const Vital Signs: 02/18/25 09:51 02/18/25 10:30 02/18/25 11:50 Temperature 97.6 F L Temperature Source Oral Pulse Rate 82 76 Respiratory Rate 16 16 Respiratory Effort Normal Non-Labored Respiratory Pattern Normal Blood Pressure 140/69 H 127/56 H Blood Pressure Mean 92 79 Pulse Ox 100 99 Oxygen Delivery Method Room Air Room Air 02/18/25 13:00 Temperature Temperature Source Pulse Rate 76 Respiratory Rate 17 Respiratory Effort Respiratory Pattern Blood Pressure 130/64 H Blood Pressure Mean 86 Pulse Ox 98 Oxygen Delivery Method Room Air Positive well nourished, well developed and no apparent distress General Appearance ED: well developed HEENT Reports normocephalic and head/scalp atraumatic Mouth ED: Yes moist mucous membranes normal Eyes PERRL and EOMs intact bilaterally Neck full ROM and supple Chest Wall inspection of chest normal Resp normal respiratory effort and clear to auscultation bilaterally Cardio regular rate and regular rhythm Heart Sounds: murmur systolic GI soft to palpation, non-tender, non-distended and no masses Back/Spine normal ROM and normal to inspection Extremity normal to inspection and full ROM Neuro oriented x3, CN's II-XII intact bilaterally, moves all extremities, no focal motor deficits and no sensory deficits noted Sensorium / Orientation: awake and alert Psych mental status grossly normal and thought process normal Skin no rashes or lesions noted and no wounds <Dr. Devon Yousif DO - Last Filed: 02/18/25 16:13> Physical Exam Const Vital Signs: 02/18/25 09:51 02/18/25 10:30 02/18/25 11:50 Temperature 97.6 F L Temperature Source Oral Pulse Rate 82 76 Respiratory Rate 16 16 Respiratory Effort Normal Non-Labored Respiratory Pattern Normal Blood Pressure 140/69 H 127/56 H Blood Pressure Mean 92 79 Pulse Ox 100 99 Oxygen Delivery Method Room Air Room Air 02/18/25 13:00 Temperature Temperature Source Pulse Rate 76 Respiratory Rate 17 Respiratory Effort Respiratory Pattern Blood Pressure 130/64 H Blood Pressure Mean 86 Pulse Ox 98 Oxygen Delivery Method Room Air MDM <ROBINSON Martinez - Last Filed: 02/18/25 14:12> MDM MDM Narrative Medical decision making narrative: Patient presenting today due to concerns for GI bleed and new cardiac murmur. She has a history of CAD, she had a STEMI in September and recent heart cath mid January with stent placement. She followed with cardiology about a week ago and they heard a new systolic murmur, she is scheduled to have an echo on 02/28. She has been following with her PCP for black-colored stools, she was Hemoccult positive on Tuesday, her hemoglobin was around 10.4 Tuesday and today was around 9, prompting her to be sent in. She does admit that she has been more fatigued with activities. Her hemoglobin here is 9.1 which is stable. We did speak with cardiology, he recommends admission to the hospital to have an echo completed, I also spoke with Dr. Huynh, he recommends Protonix twice daily and he will perform a scope. I will speak with the hospitalist for admission. She will be admitted in stable condition. EKG: Sinus rate of 76, no ST or T wave changes. Attending note: I have personally performed a face to face assessment of the patient and have reviewed the ALYCIA note. I personally made/approved the management plan and take responsibility for the patient management. I performed a substantive portion of the visit including all aspects of the following. My roca findings include: Patient's status post STEMI in September LAD stent with percutaneous ballooning of first diagonal branch. NSTEMI 2 weeks ago stenting to the left circumflex again ballooning of the first diagonal at the ostial region. On aspirin and Brilinta. Since then increasing fatigue. Black stools for the last week. No abdominal pain. Sent in by PCP hemoglobin 9.4 today Tuesday was in the 9 range when he saw her. Today reporting increasing difficult activity daily living. She had a recent new murmur heard on auscultation. This is known from cardiology on follow-up visit with echocardiogram planned for next week. Denies any chest pains or tightness. EKG sinus rhythm. Labs hemoglobin 9.1. She has 2 out of 6 systolic murmur auscultated. We spoke with title camera operator Dr. Galindo, no emergent echo need to be done in the ED. This can be done as an inpatient he will read this. Will discuss with gastroenterology prior to admission. Protonix was given. Will discuss with hospitalist. Lab Data Attestation: I reviewed the patient's lab results. Lab results narrative: H&H 9.1 and 28.5, BUN 22 Labs: Laboratory Results - last 24 hr 02/18/25 10:27 WBC 11.0 RBC 2.84 L Hgb 9.1 L Hct 28.5 L MCV 100.4 H MCH 32.0 MCHC 31.9 L RDW Std Deviation 55.8 H RDW Coeff of Gerber 15.5 H Plt Count 228 MPV 9.9 Immature Gran % (Auto) 0.400 Neut % (Auto) 77.3 H Lymph % (Auto) 15.8 L [place] % (Auto) 3.9 Eos % (Auto) 1.6 Baso % (Auto) 1.0 Absolute Neuts (auto) 8.5 H Absolute Lymphs (auto) 1.74 Nucleated RBC % 0 Sodium 141 Potassium 4.1 Chloride 108 Carbon Dioxide 21.8 Anion Gap 11 BUN 22 H Creatinine 1.13 Estim Creat Clear Calc 47.62 L Est GFR (MDRD) Non-Af 54 L BUN/Creatinine Ratio 19.4 Glucose 102 H Calcium 9.5 <Dr. Devon Yousif, DO - Last Filed: 02/18/25 16:13> [facility] MDM Narrative Medical decision making narrative: Patient presenting today due to concerns for GI bleed and new cardiac murmur. She has a history of CAD, she had a STEMI in September and recent heart cath mid January with stent placement. She followed with cardiology about a week ago and they heard a new systolic murmur, she is scheduled to have an echo on 02/28. She has been following with her PCP for black-colored stools, she was Hemoccult positive on Tuesday, her hemoglobin was around 10.4 Tuesday and today was around 9, prompting her to be sent in. She does admit that she has been more fatigued with activities. Her hemoglobin here is 9.1 which is stable. We did speak with cardiology, he recommends admission to the hospital to have an echo completed, I also spoke with Dr. Huynh, he recommends Protonix twice daily and he will perform a scope in AM. I will speak with the hospitalist for admission. She will be admitted in stable condition. EKG: Sinus rate of 76, no ST or T wave changes. Attending note: I have personally performed a face to face assessment of the patient and have reviewed the ALYCIA note. I personally made/approved the management plan and take responsibility for the patient management. I performed a substantive portion of the visit including all aspects of the following. My roca findings include: Patient's status post STEMI in September LAD stent with percutaneous ballooning of first diagonal branch. NSTEMI 2 weeks ago stenting to the left circumflex again ballooning of the first diagonal at the ostial region. On aspirin and Brilinta. Since then increasing fatigue. Black stools for the last week. No abdominal pain. Sent in by PCP hemoglobin 9.4 today Tuesday was in the 9 range when he saw her. Today reporting increasing difficult activity daily living. She had a recent new murmur heard on auscultation. This is known from cardiology on follow-up visit with echocardiogram planned for next week. Denies any chest pains or tightness. EKG sinus rhythm. Labs hemoglobin 9.1. She has 2 out of 6 systolic murmur auscultated. We spoke with title camera operator Dr. Galindo, no emergent echo need to be done in the ED. This can be done as an inpatient he will read this. Will discuss with gastroenterology prior to admission. Protonix was given. Will discuss with hospitalist. Lab Data Labs: Laboratory Results - last 24 hr 02/18/25 10:27 WBC 11.0 RBC 2.84 L Hgb 9.1 L Hct 28.5 L MCV 100.4 H MCH 32.0 MCHC 31.9 L RDW Std Deviation 55.8 H RDW Coeff of Gerber 15.5 H Plt Count 228 MPV 9.9 Immature Gran % (Auto) 0.400 Neut % (Auto) 77.3 H Lymph % (Auto) 15.8 L [place] % (Auto) 3.9 Eos % (Auto) 1.6 Baso % (Auto) 1.0 Absolute Neuts (auto) 8.5 H Absolute Lymphs (auto) 1.74 Nucleated RBC % 0 Sodium 141 Potassium 4.1 Chloride 108 Carbon Dioxide 21.8 Anion Gap 11 BUN 22 H Creatinine 1.13 Estim Creat Clear Calc 47.62 L Est GFR (MDRD) Non-Af 54 L BUN/Creatinine Ratio 19.4 Glucose 102 H Calcium 9.5 Discharge Plan Dx/Rx/DC Orders Clinical Impression: Acute GI bleeding, Cardiac murmur, Weakness, CAD (coronary artery disease), Anemia Disposition Disposition: Acute Care Hospital [facility] Discharge Date/Time: 02/18/25 15:42
--- NOTE | 2025-02-18 10:31 | EKG12_ITS ---
Test Reason : Blood Pressure : */* mmHG Vent. Rate : 76 BPM Atrial Rate : 76 BPM P-R Int : 126 ms QRS Dur : 66 ms QT Int : 364 ms P-R-T Axes : 26 68 61 degrees QTcB Int : 409 ms Normal sinus rhythm Normal ECG Confirmed by ESME WADSWORTH, SOHA ([id number]), editor department GENIE COBIAN ([id number]) on 02/20/2025 11:46:55 AM Referred By: Jakub Fischer Confirmed By: SOHA VICTORIA MD
[2025-02-18 10:39] LABS: Absolute Lymphocyte Count 1.74 X10^3/uL (0.83-4.51); Absolute Neutrophil Count 8.5 X10^3/uL (2.0-7.7); Basophil# 0.11 X10^3/uL; Eosinophil# 0.18 X10^3/uL; Eosinophils% 1.6 % (0-5); Hematocrit 28.5 % (37-47); Hemoglobin 9.1 g/dL (12.0-15.0); Lymphocyte # 1.74 X10^3/ul (0.83-4.51); Lymphocyte % 15.8 % (19-41); Mean Corp Hgb Conc 31.9 g/dL (32-36); Mean Corpuscular Volume 100.4 fL (81-99); Mean Platelet Vol. 9.9 fl (6.2-12.0); Monocyte# 0.43 X10^3/uL; Monocyte% 3.9 % (0-10); NRBC Flagged by Analyzer 0 % (0-5); Neutrophil # 8.51 X10^3/uL (2.7-7.7); Neutrophil % 77.3 % (47-70); Platelet Count 228 K/mm3 (150-450); RBC Distribution Width CV 15.5 % (11.6-14.6); RBC Distribution Width SD 55.8 fl (35.1-43.9); Red Blood Count 2.84 M/mm3 (4.2-5.4)
[2025-02-18] MEDS: Pantoprazole Sodium 80 MG in 0.9% Normal Saline (50mL Bag) 15 ML 420 MG IV BOLUS (11:59)
[2025-02-18 12:43] LABS: Anion Gap 11 (5-15); BUN 22 mg/dL (4-19); BUN/Creat Ratio 19.4 RATIO (10-20); Calcium,Total 9.5 mg/dL (7.6-11.0); Carbon Dioxide 21.8 mmol/L (21.0-32.0); Chloride 108 mmol/L (98-108); Creatinine, Serum 1.13 mg/dL (0.70-1.20); EST Glomerular Filtration Rate 54 (>60); Estimated Creatinine Clearance 47.62 ml/min (50-250); Glucose 102 mg/dL (70-99); Potassium 4.1 mmol/L (3.3-5.1); Sodium Level 141 mmol/L (133-145)
--- NOTE | 2025-02-18 15:04 | PCM.HP.STD ---
HPI - General General Date of Admission: 02/18/25 HPI Narrative MIGUEL MATHIAS, is a 64 F who presents to the hospital from her doctor's office for evaluation of a GI bleed. She was seen on Tuesday and had lab work with a hemoglobin of 10.4 and at that time was complaining of dark stools for about a week. Today on recheck her hemoglobin was 9.1 so she was sent to the emergency room for further evaluation. She denies any abdominal pain but she says that for about the last week and a half she has been feeling nauseated at times. No bright red blood per rectum she has not take any iron supplements. Unfortunately she was recently diagnosed with coronary artery disease and she had a stent placed back in September and then another stent in her circumflex placed before of this month. She will have to be continued on aspirin and Brilinta. Of note she has a new cardiac murmur that is systolic in origin therefore she can have her echo as an outpatient which is already scheduled for 02/28/2025. [facility] Medical History (Updated 02/18/25 @ 16:[address] Devon Yousif, DO) GERD (gastroesophageal reflux disease) Smoker CPAP (continuous positive airway pressure) dependence Non-ST elevation [place] (NSTEMI) Hematuria UTI (urinary tract infection) Hyperlipidemia Atherosclerosis of coronary artery of [place] heart without angina pectoris Myocardial infarct Home Medications ?Medication ?Instructions ?Recorded ?Last Taken ?Type aspirin 81 mg tablet,delayed 81 mg PO DAILY@0800 [facility] 10/11/24 02/18/25 Rx release 90 days #90 tabs atorvastatin 40 mg tablet 40 mg PO QHS cholesterol 90 days 10/26/24 02/17/25 Rx #90 tabs lisinopril 2.5 mg tablet 2.5 mg PO DAILY blood pressure 90 10/26/24 02/04/25 Rx days #90 tabs metoprolol succinate 25 mg 25 mg PO DAILY heart 90 days #90 10/26/24 02/18/25 Rx tablet,extended release 24 hr tabs (Toprol XL) ticagrelor 90 mg tablet (Brilinta) 90 mg PO BID blood thinner 90 days 10/26/24 02/18/25 Rx #180 tabs albuterol sulfate 90 mcg/actuation 2 puff inhalation Q4H PRN PRN 02/06/25 Unknown Rx aerosol inhaler (Ventolin HFA) Wheezing ##1 ascorbate calcium (vitamin C) 500 1 g PO DAILY 02/06/25 02/05/25 History mg tablet cranberry [id number] 2 tab PO DAILY supplement 02/06/25 02/05/25 History coagulans 250 mg-30 mg-15 mg tablet (Azo Cranberry Plus Probiotic) ondansetron 4 mg disintegrating 4 mg PO Q6H PRN PRN Nausea #15 tabs 02/06/25 02/17/25 Rx tablet nitroglycerin 0.4 mg sublingual 0.4 mg sublingual Q5-15M PRN chest 02/07/25 Unknown Rx tablet pain #25 tabs Allergy/AdvReac Type Severity Reaction Status Date / Time Penicillins Allergy Hives Verified 02/18/25 09:51 Sulfa (Sulfonamide AdvReac Diarrhea Verified 02/18/25 09:51 Antibiotics) Family History Father CAD (coronary artery disease) CABG age 68; CVA (cerebral vascular accident) Myocardial infarction Mother Cancer Cervical, Melanoma, Colon Surgical History (Updated 02/18/25 @ 14:27 by Dominga Velasquez) History of coronary artery stent placement History of carpal tunnel surgery of left wrist History of coronary artery stent placement (02/04/25) Social History household members: spouse housing: house Smoking Status: Current every day smoker tobacco type: cigarettes second hand exposure: No ROS Constitutional Constitutional: Denies chills, fatigue, fever(s) or malaise Eyes Eyes: Denies blurry vision ENT HEENT: Denies headache(s) or nasal discharge Cardiovascular Cardiovascular: Denies chest pain, dyspnea on exertion or syncope Respiratory/Chest Respiratory/Chest: Denies cough, shortness of breath at rest or shortness of breath with exertion Gastrointestinal Gastrointestinal: Reports melena and nausea; Denies constipation, diarrhea or vomiting Genitourinary Genitourinary: Denies dysuria Neurologic Neurologic: Denies focal weakness, numbness or tremor(s) Psychiatric Psychiatric: Denies anxiety or depression Vital Signs Vital Signs Vital Signs: 02/18/25 09:51 02/18/25 10:30 02/18/25 11:50 Temperature 97.6 F L Temperature Source Oral Pulse Rate 82 76 Respiratory Rate 16 16 Respiratory Effort Normal Non-Labored Respiratory Pattern Normal Blood Pressure 140/69 H 127/56 H Blood Pressure Mean 92 79 Pulse Ox 100 99 Oxygen Delivery Method Room Air Room Air 02/18/25 13:00 Temperature Temperature Source Pulse Rate 76 Respiratory Rate 17 Respiratory Effort Respiratory Pattern Blood Pressure 130/64 H Blood Pressure Mean 86 Pulse Ox 98 Oxygen Delivery Method Room Air Weight Weight: 160 lb Body Mass Index (BMI) 25.0 Physical Exam Narrative General: Alert, Oriented x3, Cooperative, No apparent distress HEENT: Atraumatic, PERRLA, EOMI, Normocephalic Oral: Moist Mucosa Neck: Supple, No JVD Lungs: Diminished, Normal air movement, No rhonchi, No wheeze, No rales Cardiovascular: Regular rate, Regular Rhythm, Normal S1, Normal S2, CASSANDRA Abdomen: Soft, Non Tender, Non-Distended, No Hepato-splenomegaly Extremities: No edema, Capillary Refill Less than 3 Seconds Skin: No rashes, No breakdown Musculoskeletal: No Tenderness to Palpation of Joints or Extremities Neurological: No focal neurological deficits, Motor Exam 5/5 strength throughout, Sensory exam intact to light touch and pain Psych/Mental Status: Normal Affect, Appropriate Results Lab / Micro Data 02/18/25 10:27 02/18/25 10:27 Labs: Laboratory Results - last 24 hr 02/18/25 10:27: WBC 11.0, RBC 2.84 L, Hgb 9.1 L, Hct 28.5 L, MCV 100.4 H, MCH 32.0, MCHC 31.9 L, RDW Std Deviation 55.8 H, RDW Coeff of Gerber 15.5 H, Plt Count 228, MPV 9.9, Immature Gran % (Auto) 0.400, Neut % (Auto) 77.3 H, Lymph % (Auto) 15.8 L, [place] % (Auto) 3.9, Eos % (Auto) 1.6, Baso % (Auto) 1.0, Absolute Neuts (auto) 8.5 H, Absolute Lymphs (auto) 1.74, Nucleated RBC % 0, Sodium 141, Potassium 4.1, Chloride 108, Carbon Dioxide 21.8, Anion Gap 11, BUN 22 H, Creatinine 1.13, Estim Creat Clear Calc 47.62 L, Est GFR (MDRD) Non-Af 54 L, BUN/Creatinine Ratio 19.4, Glucose 102 H, Calcium 9.5 Assessment & Plan Assessment/Plan (1) Acute GI bleeding: PLAN: Plan 1. Acute blood loss anemia secondary to an upper GI bleed ? She has been on aspirin since September and since that time has had episodes of nausea with no real abdominal pain. Melena for about a week with no bright red blood ? Continue with PPI ? Continue with clear liquid diet ? Will consult gastroenterology for EGD ? Her BUN is slightly elevated to 22 ? We will have to continue her aspirin and her Brilinta 2. CAD status post drug-eluting stent in September and 02/05/2025/essential HTN/HLD/tobacco abuse ? Resume her home blood pressure medications ? Continue with her aspirin or Brilinta ? Continue with her blood pressure medications ? She had an echo on 10/10/2024 with an EF of 50% and stage I diastolic dysfunction ? She had a stent placed to her proximal LAD on 10/10/2024, and a stent placed to her circumflex on 02/05/2025 ? Discussed tobacco cessation DVT: SCDs 75 minutes was spent on direct patient care, including documentation as well as chart review and collaboration with colleagues Charges/Coding Visit Charges Inpatient E&M: 08951 Init Hosp L3
--- NOTE | 2025-02-18 18:30 | CON.PCM.GI_ITS ---
HPI Consult Data Date of Consult: 02/18/25 HPI Narrative Reason for Consultation: GI bleed HPI Narrative: MIGUEL MATHIAS, is a 64 F presenting today after being sent over from her PCPs office due to concerns for a new systolic murmur and a GI bleed. She has a history of CAD, she had a STEMI in September with stent placements and had a cardiac cath with stent placement on 02/04/2025. She follows with Dr. Leavitt in cardiology, she was seen about a week ago and they heard a new systolic murmur. She is scheduled to have an echo on 02/28. She does admit that she has been more fatigued with performing activities. She denies chest pain. Additionally, she has had dark-colored stools, she has been following with her for this, she had a positive Hemoccult on Tuesday and a hemoglobin around 10.4 at that time. She reports that today her labs were rechecked and her hemoglobin was around 9, prompting her PCP to send her in for evaluation. She denies history of GI bleed, fevers, chills, abdominal pain, nausea, vomiting. She is on dual antiplatelet therapy with Brilinta and aspirin. [facility] Medical History (Updated 02/18/25 @ 16:[address] Devon Yousif, DO) GERD (gastroesophageal reflux disease) Smoker CPAP (continuous positive airway pressure) dependence Non-ST elevation [place] (NSTEMI) Hematuria UTI (urinary tract infection) Hyperlipidemia Atherosclerosis of coronary artery of [place] heart without angina pectoris Myocardial infarct Medical History no medical history no medical history Home Medications ?Medication ?Instructions ?Recorded ?Last Taken ?Type aspirin 81 mg tablet,delayed 81 mg PO DAILY@0800 [facility] 10/11/24 02/18/25 Rx release 90 days #90 tabs atorvastatin 40 mg tablet 40 mg PO QHS cholesterol 90 days 10/26/24 02/17/25 Rx #90 tabs lisinopril 2.5 mg tablet 2.5 mg PO DAILY blood pressu re 90 10/26/24 02/04/25 Rx days #90 tabs metoprolol succinate 25 mg 25 mg PO DAILY heart 90 day s #90 10/26/24 02/18/25 Rx tablet,extended release 24 hr tabs (Toprol XL) ticagrelor 90 mg tablet (Brilinta) 90 mg PO BID blood thinner 90 days 10/26/24 02/18/25 Rx #180 tabs albuterol sulfate 90 mcg/actuation 2 puff inhalation Q 4H PRN PRN 02/06/25 Unknown Rx aerosol inhaler (Ventolin HFA) Wheezing ##1 ascorbate calcium (vitamin C) 500 1 g PO DAILY 5 02/05/25 History mg tablet cranberry [id number] 2 tab PO DAILY supplement 02/05/25 History coagulans 250 mg-30 mg-15 mg tablet (Azo Cranberry Plus Probiotic) ondansetron 4 mg disintegrating 4 mg PO Q6H PRN PRN Na usea #15 tabs 02/06/25 02/17/25 Rx tablet nitroglycerin 0.4 mg sublingual 0.4 mg sublingual Q5-1 5M PRN chest 02/07/25 Unknown Rx tablet pain #25 tabs Allergy/AdvReac Type Severity Reaction Status Date / Time Penicillins Allergy Hives Verified 02/18/25 09:51 Sulfa (Sulfonamide AdvReac Diarrhea Verified 02/18/25 09:51 Antibiotics) Family History Father CAD (coronary artery disease) CABG age 68; CVA (cerebral vascular accident) Myocardial infarction Mother Cancer Cervical, Melanoma, Colon Surgical History (Updated 02/18/25 @ 14:27 by Dominga Velasquez) History of coronary artery stent placement History of carpal tunnel surgery of left wrist History of coronary artery stent placement (02/04/25) Surgical History no surgical history no surgical history Social History household members: spouse
--- NOTE | 2025-02-18 18:30 | EX.PCM.CON.G ---
HPI Consult Data Date of Consult: 02/18/25 HPI Narrative Reason for Consultation: GI bleed HPI Narrative: MIGUEL MATHIAS, is a 64 F presenting today after being sent over from her PCPs office due to concerns for a new systolic murmur and a GI bleed. She has a history of CAD, she had a STEMI in September with stent placements and had a cardiac cath with stent placement on 02/04/2025. She follows with Dr. Leavitt in cardiology, she was seen about a week ago and they heard a new systolic murmur. She is scheduled to have an echo on 02/28. She does admit that she has been more fatigued with performing activities. She denies chest pain. Additionally, she has had dark-colored stools, she has been following with her for this, she had a positive Hemoccult on Tuesday and a hemoglobin around 10.4 at that time. She reports that today her labs were rechecked and her hemoglobin was around 9, prompting her PCP to send her in for evaluation. She denies history of GI bleed, fevers, chills, abdominal pain, nausea, vomiting. She is on dual antiplatelet therapy with Brilinta and aspirin. [facility] Medical History (Updated 02/18/25 @ 16:[address] Devon Yousif, ) GERD (gastroesophageal reflux disease) Smoker CPAP (continuous positive airway pressure) dependence Non-ST elevation [place] (NSTEMI) Hematuria UTI (urinary tract infection) Hyperlipidemia Atherosclerosis of coronary artery of [place] heart without angina pectoris Myocardial infarct Medical History no medical history no medical history Home Medications ?Medication ?Instructions ?Recorded ?Last Taken ?Type aspirin 81 mg tablet,delayed 81 mg PO DAILY@0800 heart [facility] 10/11/24 02/18/25 Rx release 90 days #90 tabs atorvastatin 40 mg tablet 40 mg PO QHS cholesterol 90 days 10/26/24 02/17/25 Rx #90 tabs lisinopril 2.5 mg tablet 2.5 mg PO DAILY blood pressure 90 10/26/24 02/04/25 Rx days #90 tabs metoprolol succinate 25 mg 25 mg PO DAILY heart 90 days #90 10/26/24 02/18/25 Rx tablet,extended release 24 hr tabs (Toprol XL) ticagrelor 90 mg tablet (Brilinta) 90 mg PO BID blood thinner 90 days 10/26/24 02/18/25 Rx #180 tabs albuterol sulfate 90 mcg/actuation 2 puff inhalation Q4H PRN PRN 02/06/25 Unknown Rx aerosol inhaler (Ventolin HFA) Wheezing ##1 ascorbate calcium (vitamin C) 500 1 g PO DAILY 02/06/25 02/05/25 History mg tablet cranberry [id number] 2 tab PO DAILY supplement 02/06/25 02/05/25 History coagulans 250 mg-30 mg-15 mg tablet (Azo Cranberry Plus Probiotic) ondansetron 4 mg disintegrating 4 mg PO Q6H PRN PRN Nausea #15 tabs 02/06/25 02/17/25 Rx tablet nitroglycerin 0.4 mg sublingual 0.4 mg sublingual Q5-15M PRN chest 02/07/25 Unknown Rx tablet pain #25 tabs Allergy/AdvReac Type Severity Reaction Status Date / Time Penicillins Allergy Hives Verified 02/18/25 09:51 Sulfa (Sulfonamide AdvReac Diarrhea Verified 02/18/25 09:51 Antibiotics) Family History Father CAD (coronary artery disease) CABG age 68; CVA (cerebral vascular accident) Myocardial infarction Mother Cancer Cervical, Melanoma, Colon Surgical History (Updated 02/18/25 @ 14:27 by Dominga Velasquez) History of coronary artery stent placement History of carpal tunnel surgery of left wrist History of coronary artery stent placement (02/04/25) Surgical History no surgical history no surgical history Social History household members: spouse housing: house Smoking Status: Current every day smoker tobacco type: cigarettes second hand exposure: No ROS Constitutional Constitutional: Denies chills, fatigue, fever(s) or malaise Eyes Eyes: Denies blurry vision ENT HEENT: Denies headache(s) or nasal discharge Cardiovascular Cardiovascular: Denies chest pain, dyspnea on exertion or syncope Respiratory/Chest Respiratory/Chest: Denies cough, shortness of breath at rest or shortness of breath with exertion Gastrointestinal Gastrointestinal: Reports melena and nausea; Denies constipation, diarrhea or vomiting Genitourinary Genitourinary: Denies dysuria Neurologic Neurologic: Denies focal weakness, numbness or tremor(s) Psychiatric Psychiatric: Denies anxiety or depression Lab / Micro Data 02/18/25 10:27 02/18/25 10:27 Labs: Laboratory Results - last 24 hr 02/18/25 10:27: WBC 11.0, RBC 2.84 L, Hgb 9.1 L, Hct 28.5 L, MCV 100.4 H, MCH 32.0, MCHC 31.9 L, RDW Std Deviation 55.8 H, RDW Coeff of Gerber 15.5 H, Plt Count 228, MPV 9.9, Immature Gran % (Auto) 0.400, Neut % (Auto) 77.3 H, Lymph % (Auto) 15.8 L, Gilchrist % (Auto) 3.9, Eos % (Auto) 1.6, Baso % (Auto) 1.0, Absolute Neuts (auto) 8.5 H, Absolute Lymphs (auto) 1.74, Nucleated RBC % 0, Sodium 141, Potassium 4.1, Chloride 108, Carbon Dioxide 21.8, Anion Gap 11, BUN 22 H, Creatinine 1.13, Estim Creat Clear Calc 47.62 L, Est GFR (MDRD) Non-Af 54 L, BUN/Creatinine Ratio 19.4, Glucose 102 H, Calcium 9.5 Assessment & Plan Assessment/Plan (1) Acute GI bleeding: PLAN: Plan 64-year-old female who presents to the office today for a posthospital follow-up. She was evaluated at [facility] in September [address] elevated myocardial infarction of the anterolateral wall. She proceeded with drug-eluting stent to LAD and PTCA of the proximal diagonal. Heart catheterization showed left main with mild luminal irregularities, proximal LAD with 80% stenosis, mid LAD with 40% stenosis, diagonal 1 with 99% stenosis, LCx with mild diffuse disease, ostial RCA with 30-40% stenosis, and proximal RCA with mild luminal irregularities. Echocardiogram showed ejection fraction of 50%, stage I diastolic dysfunction, and wall motion abnormality with severely hypokinetic mid anterior wall and apex. She presents with: Acute blood loss anemia secondary to an upper GI bleed ? Likely upper GI bleed secondary to antiplatelet anticoagulation. She will need to undergo an upper endoscopy tomorrow. She was explained alternatives, risk and benefits include understanding bleeding, pressure, sepsis, perforation, need for charge and . She would have an ASA of 3. Sh she is still on aspirin and her Brilinta to prevent in-stent occlusion. Further recommendations after she has upper endoscopy. Charges/Coding Visit Charges Inpatient E&M: 08308 Init Hosp L3
[2025-02-18 20:22] LABS: Hematocrit 27.7 % (37-47)
[2025-02-18] MEDS: Atorvastatin Calcium 40 MG Tablet PO (21:26)
[2025-02-18] MEDS: Pantoprazole Sodium 40 MG in 0.9% Normal Saline (100mL MB+) 100 ML 330 MG IV (21:26)
[2025-02-18] MEDS: TICAGRELOR 90 MG TABLET PO (21:26)
[2025-02-19] VITALS (12 sets, daily range): BP systolic 87–123; BP diastolic 47–68; PULSE 71–84; RESP 16–18; TEMP 36.2–37.2; O2SAT 96–100
[2025-02-19 07:06] LABS: Absolute Lymphocyte Count 1.39 X10^3/uL (0.83-4.51); Absolute Neutrophil Count 6.7 X10^3/uL (2.0-7.7); Basophil# 0.09 X10^3/uL; Eosinophil# 0.25 X10^3/uL; Eosinophils% 2.8 % (0-5); Hematocrit 27.3 % (37-47); Hemoglobin 8.8 g/dL (12.0-15.0); Lymphocyte # 1.39 X10^3/ul (0.83-4.51); Lymphocyte % 15.8 % (19-41); Mean Corp Hgb Conc 32.2 g/dL (32-36); Mean Corpuscular Hgb 32.2 pg (27.0-32.0); Mean Platelet Vol. 9.6 fl (6.2-12.0); Monocyte# 0.39 X10^3/uL; Monocyte% 4.4 % (0-10); NRBC Flagged by Analyzer 0 % (0-5); Neutrophil # 6.65 X10^3/uL (2.7-7.7); Neutrophil % 75.7 % (47-70); Platelet Count 205 K/mm3 (150-450); RBC Distribution Width CV 15.6 % (11.6-14.6); Red Blood Count 2.73 M/mm3 (4.2-5.4); White Blood Count 8.8 K/mm3 (4.4-11.0)
--- NOTE | 2025-02-19 07:19 | PCM.PN.HOSP ---
Reason for Visit Reason for Visit: Diagnoses Gastrointestinal hemorrhage, unspecified (02/18/25) Subjective Subjective Patient is a 64-year-old lady with history of coronary artery disease with recent stent placement on dual antiplatelet therapy who was sent from her PCPs office with low hemoglobin with concerns for GI bleed. Patient had apparently been experiencing melena for almost a week Objective Data Objective Data Vital Signs: Vital Signs Temp Pulse Resp BP Pulse Ox O2 Del Method O2 Flow Rate 97.9 F 82 16 109/64 99 Nasal Cannula 2 02/19/25 06:02 02/19/25 06:02 02/19/25 06:02 02/19/25 06:02 02/19/25 06:02 02/19/25 06:02 02/19/25 06:02 Oxygen Flow Rate (L/min) 2 Oxygen Delivery Method Nasal Cannula Weight: 70.624 kg Body Mass Index (BMI) 24.3 Intake & Output: Intake and Output for Last 24 Hours 02/17/25 02/18/25 02/19/25 23:59 23:59 23:59 Intake Total 145 / 445 300 / 300 Balance 145 / 445 300 / 300 Lab / Micro Data 02/19/25 06:50 02/19/25 06:50 Labs: Laboratory Results - last 24 hr 02/18/25 10:27: WBC 11.0, RBC 2.84 L, Hgb 9.1 L, Hct 28.5 L, MCV 100.4 H, MCH 32.0, MCHC 31.9 L, RDW Std Deviation 55.8 H, RDW Coeff of Gerber 15.5 H, Plt Count 228, MPV 9.9, Immature Gran % (Auto) 0.400, Neut % (Auto) 77.3 H, Lymph % (Auto) 15.8 L, [place] % (Auto) 3.9, Eos % (Auto) 1.6, Baso % (Auto) 1.0, Absolute Neuts (auto) 8.5 H, Absolute Lymphs (auto) 1.74, Nucleated RBC % 0, Sodium 141, Potassium 4.1, Chloride 108, Carbon Dioxide 21.8, Anion Gap 11, BUN 22 H, Creatinine 1.13, Estim Creat Clear Calc 47.62 L, Est GFR (MDRD) Non-Af 54 L, BUN/Creatinine Ratio 19.4, Glucose 102 H, Calcium 9.5 02/18/25 20:10: Hgb 9.0 L, Hct 27.7 L 02/19/25 06:50: WBC 8.8, RBC 2.73 L, Hgb 8.8 L, Hct 27.3 L, MCV 100.0 H, MCH 32.2 H, MCHC 32.2, RDW Std Deviation 56.0 H, RDW Coeff of Gerber 15.6 H, Plt Count 205, MPV 9.6, Immature Gran % (Auto) 0.300, Neut % (Auto) 75.7 H, Lymph % (Auto) 15.8 L, [place] % (Auto) 4.4, Eos % (Auto) 2.8, Baso % (Auto) 1.0, Absolute Neuts (auto) 6.7, Absolute Lymphs (auto) 1.39, Nucleated RBC % 0 Physical Exam Narrative GENERAL: cooperative HEENT: Atraumatic; normocephalic EYES; Anicteric, Normal Conjunctiva NECK; supple, normal thyroid, RESPIRATORY: Diminished to auscultation CARDIOVASCULAR: Regular S1 S2, GI: soft, normoactive bowel sounds, : No Renal angle tenderness; EXTREMITIES: No edema, no clubbing, MUSCULOSKELETAL: no muscle wasting NEURO: Awake; no lateralizing signs. SKIN: No Rash PSYCH; Flat affect Assessment & Plan Assessment/Plan (1) Acute GI bleeding: PLAN: Plan Patient is a 64-year-old lady with history of coronary artery disease with recent stent placement on dual antiplatelet therapy who was sent from her PCPs office with low hemoglobin with concerns for GI bleed. Patient had apparently been experiencing melena for almost a week 1. Upper GI bleed ? Suspected to be secondary to peptic ulcer disease exacerbated by the use of dual antiplatelet therapy. Patient had apparently been experiencing melena. Admitted to regular nursing floor started on Protonix consult placed to GI plans for patient to undergo upper endoscopy by Dr. Huynh. 2. Anemia ? Secondary to acute blood loss anemia. Hemoglobin on admission 9.1 down to 8.8 as of 02/19/2025. Will continue with Q8 H&H monitoring with plans to transfuse if patient is deemed to be symptomatic or hemoglobin falls below 7. 3. Coronary artery disease ? With recent STEMI patient underwent PCI to her proximal LAD lesion on 10/10/2024 and 2 circumflex on 02/05/2025. Patient is on dual antiplatelet therapy continued given her recent stent placement to prevent thrombosis of her stent 4. Dyslipidemia ?Patient is on statin therapy, continued at home dose 5. New onset cardiac murmur ? Echo ordered for subsequent evaluation 6. Tobacco dependence ? Counseled on cessation, offered nicotine patch for tobacco cravings 7. DVT prophylaxis ? Bilateral SCDs Charges/Coding Visit Charges Inpatient E&M: 69744 Init Hosp L3
[2025-02-19 07:48] LABS: Anion Gap 12 (5-15); BUN 18 mg/dL (4-19); BUN/Creat Ratio 15.7 RATIO (10-20); Calcium,Total 9.3 mg/dL (7.6-11.0); Carbon Dioxide 21.8 mmol/L (21.0-32.0); Chloride 108 mmol/L (98-108); Creatinine, Serum 1.14 mg/dL (0.70-1.20); EST Glomerular Filtration Rate 53 (>60); Estimated Creatinine Clearance 47.21 ml/min (50-250); Glucose 88 mg/dL (70-99); Potassium 4.1 mmol/L (3.3-5.1); Sodium Level 142 mmol/L (133-145)
--- NOTE | 2025-02-19 08:18 | ECHOD_ITS ---
Reason For Study Reason For Study: Murmur Procedure This was a 2D Doppler, Color Flow transthoracic echocardiogram. Exam performed portable in patient room. Left Ventricle Normal LV size. The estimated ejection fraction is 65 %. No evidence for diastolic dysfunction. No regional wall motion abnormalities noted. Right Ventricle Normal RV size. Normal systolic function. Atria The left and right atria are normal. No doppler evidence for ASD. Mitral Valve There is no mitral valve stenosis. Moderate (2+) mitral valve insufficiency. Tricuspid Valve There is no tricuspid stenosis. Mild tricuspid valve insufficiency. Unable to estimate RV systolic pressure due to insufficient tricuspid regurgitant envelope. Aortic Valve Trisinus/trileaflet aortic valve. There is no aortic stenosis. No aortic valve insufficiency. Pulmonic Valve There is no pulmonic valvular stenosis. No pulmonic valve insufficiency. Great Vessels Normal sized aortic root. Pericardium/Pleural No pericardial effusion. MMode/2D Measurements & Calculations LVIDd: 4.1 cm IVSd: 1.1 cm LAV(MOD- bp): 56.9 ml LVIDs: 2.7 cm LVPWd: 0.97 cm LAV(MOD- bp) Indexed: 31.3 ml/m2 RVDd: 2.9 cm FS: 32.7 % LAV(MOD- sp2): 52.5 ml LAV(MOD- sp4): 49.6 ml SV(MOD-sp4): 61.1 ml SV(sp4- el): 64.8 ml LVAd ap4: 28.2 cm2 LVLd ap4: 8.1 cm SI(MOD-sp4): 33.7 ml/m2 EDV(MOD-sp4): 80.4 ml EDV(sp4-el): 83.3 ml LVAs ap4: 11.4 cm2 LVLs ap4: 6.0 cm ESV(MOD-sp4): 19.3 ml ESV(sp4-el): 18.5 ml EF(MOD-sp4): 76.0 % EF(sp4-el): 77.8 % LA A4 area: 16.6 cm2 LA dimension(2D): 4.1 cm RA A4 area: 14.4 cm2 Time Measurements MV dec time: 0.16 sec Doppler Measurements & Calculations MV E max osman: 114.9 cm/sec Lat Peak E' Osman: 9.1 cm/sec Med Peak E' Osman: 11.6 cm/sec MV A max osman: 70.0 cm/sec E/E' lat: 12.6 E/E' med: 9.9 MV E/A: 1.6 MV V2 max: 184.2 cm/sec MV P1/2t max osman: 187.2 cm/sec Ao V2 max: 138.7 cm/sec MV max P.6 mmHg MV P1/2t: 74.4 msec Ao max P.7 mmHg MV V2 mean: 83.0 cm/sec MV dec slope: 736.8 cm/sec2 Ao V2 mean: 79.8 cm/sec MV mean P.5 mmHg MVA(P1/2t): 3.0 cm2 Ao mean P.1 mmHg MV V2 VTI: 45.8 cm Ao V2 VTI: 23.8 cm AV (velocity ratio): 0.87 LV V1 max: 119.0 cm/sec MR max osman: 587.2 cm/sec TR max osman: 286.9 cm/sec LV V1 max P.7 mmHg MR max P.9 mmHg TR max P.9 mmHg LV V1 mean P.5 mmHg MR mean osman: 425.5 cm/sec LV V1 mean: 71.1 cm/sec MR mean P.5 mmHg LV V1 VTI: 20.8 cm MR VTI: 166.2 cm ECHO/Echo Complete Interpretation Summary The estimated ejection fraction is 65 %. No evidence for diastolic dysfunction. Moderate (2+) mitral valve insufficiency. Ordering Physician: Josh Peñaloza Referring Physician: Jakub Fischer Performed By: Keenan Beverly RCS
[2025-02-19 09:52] LABS: Hematocrit 29.1 % (37-47); Hemoglobin 9.2 g/dL (12.0-15.0)
[2025-02-19] MEDS: Pantoprazole Sodium 40 MG in 0.9% Normal Saline (100mL MB+) 100 ML 330 MG IV ×2 (10:46→22:11)
--- NOTE | 2025-02-19 11:00 | CASEMGMT ---
NICOLA GARAY Readmission Note Previous Admission: 02/04/25-02/05/25 Diagnosis: NSTEMI DC Disposition: Home Current Admission: Admitted 02/18/25 Current Diagnosis: GI Bleed Pt presented on index admission for NSTEMI with stent placement on 02/05. Pt was on ASA and brilinta. Pt had a Hgb of 10.4 at PCP office on Tuesday and rechecked on Tuesday at 9.1. Pt reported having dark stools x1wk and was therefore sent to the ER and admitted. GI to c/s and will plan for EGD. NICOLA GARAY into pt room, pt sitting up in chair in no distress. Pt states she took her medications as ordered and did f/u with her PCP. Pt states she did have an evaluation for cardiac rehab, it was to start this week. Pt states she does plan to still do cardiac rehab and will reschedule after this hospital stay. Pt reports being indep at home and denies any homegoing needs. NICOLA GARAY to follow. DC Plan: Home, cardiac rehab
[2025-02-19 12:06] LABS: Bedside Glucose 87 mg/dL (74-106)
[2025-02-19] MEDS: Metoprolol(XL)Succ 25 MG Tablet PO (12:16)
[2025-02-19 12:39] LABS: Hematocrit 27.6 % (37-47); Hemoglobin 8.8 g/dL (12.0-15.0)
--- NOTE | 2025-02-19 13:23 | CHAPLAIN ---
Type of Pastoral Visit _x__ Initial Visit ___ Follow-up Visit ___ On-call Visit ___ General Patient Visit ___ Spiritual Assessment ___ Family Conference ___ Bereavement ___ Rapid Response ___ Code Blue ___ Other (describe below) Pastoral Care Referral From _x__ Patient ___ Family ___ Nurse ___ Physician ___ Catering Sous Chef ___ Reference Librarian ___ Other (describe below) Sacrament/Intervention _x__ Active listening ___ Anointing ___ Orthodoxy ___ Bereavement ___ Communion ___ Kelsey exploration ___ ___ Life review _x__ Prayer ___ Reconciliation ___ Sacrament of Sick _x__ Supportive presence ___ Wedding ___ Other (describe below) Pastoral Comments patient is currently waiting to be taken for a scope to determine cause of the bleeding; daughter is with her; pt had been seen last month during her stemi and urgent procedure; pt gives update on her health; pt welcomes presence and prayer for today
[2025-02-19] MEDS: Lactated Ringers 1,000 ML 15 ML IV (13:47)
--- NOTE | 2025-02-19 14:05 | PRE.ANES_ITS ---
ASA Classification* ASA Classification ASA Classification: 3 Assessment & Plan Anesthesia* Anesthesia Assessment Anesthesia Assessment: Discussed sedation and/or anesthesia options, risks, benefits, and alternatives with patient/parents/legal guardian/POA. Questions invited. The patient/parents/legal guardian/POA seems to understand and agrees to proceed with anesthesia plan. Reviewed the physical assessment, medical history, allergy history and patient home medications list prior to surgery/procedure/anesthetic and documented any changes. Performed airway and anesthesia risk assessments. Anesthesia Type Anesthesia Type: MAC History Source History Obtained from:: Patient and Chart Anesthesia Focused Assessment* Temperature: 98.4 F Pulse Rate: 83 Blood Pressure: 123/68 Respiratory Rate: 18 Pulse Ox: 98 Oxygen Delivery Method: Room Air Oxygen Flow Rate (L/min): 2 Airway Assessment Mouth opens: >3 cm Mallampati Score: II Teeth Condition: Intact Neck Range of motion (ROM): Full ROM Focused Labs Anesthesia Preop lab: CBC WBC 8.8 K/mm3 (4.4-11.0) 02/19/25 06:50 02/19/25 RBC 2.73 M/mm3 (4.2-5.4) L 02/19/25 06:50 02/19/25 Hgb 8.8 g/dL (12.0-15.0) L 02/19/25 12:17 02/19/25 Hct 27.6 % (37-47) L 02/19/25 12:17 02/19/25 Plt Count 205 K/mm3 (150-450) 02/19/25 06:50 02/19/25 CHEMISTRY Potassium 4.1 mmol/L (3.3-5.1) 02/19/25 06:50 02/19/25 Sodium 142 mmol/L (133-145) 02/19/25 06:50 02/19/25 Magnesium 2.1 mg/dL (1.5-2.2) 02/06/25 09:33 02/06/25 BUN 18 mg/dL (4-19) 02/19/25 06:50 02/19/25 Creatinine 1.14 mg/dL (0.70-1.20) 02/19/25 06:50 02/19/25 Glucose 88 mg/dL (70-99) 02/19/25 06:50 02/19/25 POC Glucose 87 mg/dL (74-106) 02/19/25 11:48 02/19/25 TSH 3.970 uIU/mL (0.300-4.200) 02/06/25 09:33 01/22 04/17 COAG PT 12.9 SECONDS (11.7-14.9) 02/04/25 12:57 Pre-Assessment Diagnosis/Proposed Procedure Planned Operative Procedure(s): Esophagogastroduodenoscopy with possible cautery and/or injection therapy and/or biopsy. 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 When Was Last Pacemaker Check QUESTION #4 FULL TEXT: You/Your Family Experience fever (hyperthermia) with Anesthesia Last Oral Intake Last Oral intake: Last Oral Intake NPO since Meds taken in AM with sips of water? Meds patient instructed to take am of surgery Any additional information?: Yes NPO since: 00:00 Meds taken in AM with sips of water?: Yes Meds patient instructed to take am of surgery: Toprol. 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 Female HX of Motion Sickness HX of N/V After Surgery Non-Smoker Duration of Surgery greater than 60 minutes Number of Risk Factors PONV Score Height & Weight Height & Weight: Anesthesia: Height & Weight Height 5 ft 7 in 02/18/25 15:53 Weight: 70.624 kg 02/18/25 15:53 Body Mass Index (BMI) 24.3 02/18/25 15:53 Respiratory Assessment Respiratory Assessment - petroleum terminal plant operator: Respiratory Tract Infection Hx - petroleum terminal plant operator Hx Respiratory Tract Infection No 02/18/25 21:39 STOP Sleep Apnea STOP Sleep Apnea - petroleum terminal plant operator: STOP Sleep Apnea - petroleum terminal plant operator Hx Hypertension Yes 02/18/25 15:53 Hx Sleep Apnea Yes 02/18/25 15:53 CPAP Yes 02/18/25 15:53 BIPAP No 02/18/25 15:53 Do you snore loudly (louder than talking or can be heard Do you often feel tired/ fatigued/ sleepy during daytime? Has anyone observed you stop breathing during sleep? STOP Results Positive 02/18/25 15:53 QUESTION #5 FULL TEXT : Do you snore loudly (louder than talking or can be heard through closed doors)? 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 INHALATION Q4H PRN Wheezing Ascorbic Acid 1,000 mg 02/19/25 10:00 02/19/25 10:11 Ascorbic Acid 500 Mg Tablet PO Not Given DAILY GABO Aspirin 81 mg 02/19/25 08:00 02/19/25 10:10 Aspirin E.C. 81 Mg Tablet PO Not Given DAILY@0800 GABO Atorvastatin Calcium 40 mg 02/18/25 22:00 02/18/25 21:26 Atorvastatin Calcium 40 Mg Tablet PO 40 mg QHS GABO Administration Sodium Chloride 100 mls @ 15 mls/hr 02/18/25 15:59 IV .Q6H40M PRN Saline Flush Sodium Chloride 100 mls @ 15 mls/hr 02/18/25 15:59 IV .Q6H40M PRN Additional IVPB Infusion Pantoprazole Sodium 40 mg/ 110 mls @ 330 mls/hr 02/18/25 22:00 02/19/25 11:10 Sodium Chloride IV Infused Q12 GABO Infusion Lactated Ringer's 1,000 mls @ 15 mls/hr 02/19/25 13:45 02/19/25 13:47 IV 15 mls/hr .Q48H GABO Administration Lisinopril 2.5 mg 02/19/25 10:00 02/19/25 10:11 Lisinopril 2.5 Mg Tablet PO Not Given DAILY [facility] Protocol Metoprolol Succinate 25 mg 02/19/25 10:00 02/19/25 12:16 Metoprolol(Xl)Succ 25 Mg Tablet PO 25 mg DAILY GABO Administration Protocol Nitroglycerin 0.4 mg 02/19/25 07:32 Nitroglycerin (Inpatient Use) 0.4 Mg Tab.Subl SL Q5M PRN CARDIAC/CHEST PAIN Ondansetron HCl 4 mg 02/18/25 16:06 Ondansetron Odt 4 Mg Tablet PO Q6H PRN PRN Nausea Sodium Chloride 10 - 40 ml 02/18/25 15:59 0.9% Saline Lock 10 Ml Syringe IV UD PRN SALINE FLUSH Ticagrelor 90 mg 02/18/25 22:00 02/19/25 10:11 Ticagrelor 90 Mg Tablet PO Not Given BID GABO PFSH Medical History GERD (gastroesophageal reflux disease) Smoker CPAP (continuous positive airway pressure) dependence Non-ST elevation [place] (NSTEMI) Hematuria UTI (urinary tract infection) Hyperlipidemia Atherosclerosis of coronary artery of [place] heart without angina pectoris Myocardial infarct Medical History no medical history Home Medications ?Medication ?Instructions ?Recorded ?Last Taken ?Type aspirin 81 mg tablet,delayed 81 mg PO DAILY@0800 heart health 10/11/24 02/18/25 Rx release 90 days #90 tabs atorvastatin 40 mg tablet 40 mg PO QHS cholesterol 90 days 10/26/24 02/17/25 Rx #90 tabs lisinopril 2.5 mg tablet 2.5 mg PO DAILY blood pressu re 90 10/26/24 02/04/25 Rx days #90 tabs metoprolol succinate 25 mg 25 mg PO DAILY heart 90 day s #90 10/26/24 02/18/25 Rx tablet,extended release 24 hr tabs (Toprol XL) ticagrelor 90 mg tablet (Brilinta) 90 mg PO BID blood thinner 90 days 10/26/24 02/18/25 Rx #180 tabs albuterol sulfate 90 mcg/actuation 2 puff inhalation Q 4H PRN PRN 02/06/25 Unknown Rx aerosol inhaler (Ventolin HFA) Wheezing ##1 ascorbate calcium (vitamin C) 500 1 g PO DAILY 5 02/05/25 History mg tablet cranberry [id number] 2 tab PO DAILY supplement 02/05/25 History coagulans 250 mg-30 mg-15 mg tablet (Azo Cranberry Plus Probiotic) ondansetron 4 mg disintegrating 4 mg PO Q6H PRN PRN Na usea #15 tabs 02/06/25 02/17/25 Rx tablet nitroglycerin 0.4 mg sublingual 0.4 mg sublingual Q5-1 5M PRN chest 02/07/25 Unknown Rx tablet pain #25 tabs Allergy/AdvReac Type Severity Reaction Status Date / Time Penicillins Allergy Hives Verified 02/18/25 09:51 Sulfa (Sulfonamide AdvReac Diarrhea Verified 02/18/25 09:51 Antibiotics) Family History Father CAD (coronary artery disease) CABG age 68; CVA (cerebral vascular accident) Myocardial infarction Mother Cancer Cervical, Melanoma, Colon Surgical History Status post cardiac surgery History of coronary artery stent placement History of carpal tunnel surgery of left wrist History of coronary artery stent placement (02/04/25) Surgical History no surgical history Social History household members: spouse housing: house Smoking Status: Current every day smoker tobacco type: cigarettes second hand exposure: No Review of Systems (Anesthesia) ROS Narrative System reviewed and no additional complaints, except as documented.
--- NOTE | 2025-02-19 14:21 | PCM.PN.BLA ---
Progress Note The patient has been n.p.o. for upper endoscopy today. All question concerns answered. Physical Exam Narrative GENERAL: cooperative HEENT: Atraumatic; normocephalic EYES; Anicteric, Normal Conjunctiva NECK; supple, normal thyroid, RESPIRATORY: Diminished to auscultation CARDIOVASCULAR: Regular S1 S2, GI: soft, normoactive bowel sounds, : No Renal angle tenderness; EXTREMITIES: No edema, no clubbing, MUSCULOSKELETAL: no muscle wasting NEURO: Awake; no lateralizing signs. SKIN: No Rash PSYCH; Flat affect Assessment & Plan Assessment/Plan (1) Acute GI bleeding: PLAN: Plan 64-year-old female who presents to the office today for a posthospital follow-up. She was evaluated at [facility] in September [address] elevated myocardial infarction of the anterolateral wall. She proceeded with drug-eluting stent to LAD and PTCA of the proximal diagonal. Heart catheterization showed left main with mild luminal irregularities, proximal LAD with 80% stenosis, mid LAD with 40% stenosis, diagonal 1 with 99% stenosis, LCx with mild diffuse disease, ostial RCA with 30-40% stenosis, and proximal RCA with mild luminal irregularities. Echocardiogram showed ejection fraction of 50%, stage I diastolic dysfunction, and wall motion abnormality with severely hypokinetic mid anterior wall and apex. She presents with: Acute blood loss anemia secondary to an upper GI bleed ? Likely upper GI bleed secondary to antiplatelet anticoagulation. She will need to undergo an upper endoscopy tomorrow. She was explained alternatives, risk and benefits include understanding bleeding, pressure, sepsis, perforation, need for charge and . She would have an ASA of 3. Sh she is still on aspirin and her Brilinta to prevent in-stent occlusion. Further recommendations after she has upper endoscopy. Visit Charges Inpatient E&M: 56075 [facility] Hosp L3
--- NOTE | 2025-02-19 14:43 | OP.EGD_ITS ---
Patient Name: Mily Long Procedure Date: 02/19/2025 2:21 PM Date of : 1960 Age: 64 Procedure: Upper GI endoscopy Indications: Epigastric abdominal pain, Melena Providers: Ivan Huynh DO Referring MD: Jakub Fischer Medicines: Monitored Anesthesia Care Patient Profile: This is a 64 year old female. Refer to note in patient chart for documentation of history and physical. Patient has symptoms of acute epigastric abdominal pain, acute nausea and acute vomiting. Complications: No immediate complications. Procedure: Pre-Anesthesia Assessment: - Prior to the procedure, a History and Physical was performed, and patient medications and allergies were reviewed. The patient is competent. The risks and benefits of the procedure and the sedation options and risks were discussed with the patient. All questions were answered and informed consent was obtained. Patient identification and proposed procedure were verified by the physician in the pre-procedure area. Mental Status Examination: alert and oriented. Airway Examination: normal oropharyngeal airway and neck mobility. Respiratory Examination: clear to auscultation. CV Examination: normal. Prophylactic Antibiotics: The patient does not require prophylactic antibiotics. Prior Anticoagulants: The patient has taken no anticoagulant or antiplatelet agents except for NSAID medication. ASA Grade Assessment: III - A patient with severe systemic disease. After reviewing the risks and benefits, the patient was deemed in satisfactory condition to undergo the procedure. The anesthesia plan was to use monitored anesthesia care (MAC). Immediately prior to administration of medications, the patient was re-assessed for adequacy to receive sedatives. The heart rate, respiratory rate, oxygen saturations, blood pressure, adequacy of pulmonary ventilation, and response to care were monitored throughout the procedure. The physical status of the patient was re-assessed after the procedure. After obtaining informed consent, the endoscope was passed under direct vision. Throughout the procedure, the patient's blood pressure, pulse, and oxygen saturations were monitored continuously. The gastroscope was introduced through the mouth, and advanced to the fourth part of the duodenum. Small bowel enteroscopy was deemed necessary. The upper GI endoscopy was accomplished without difficulty. The patient tolerated the procedure well. Scope In: 2:34:13 PM Scope Out: 2:38:04 PM Total Procedure Duration Time 0 hours 3 minutes 51 seconds Findings: LA Grade A (one or more mucosal breaks less than 5 mm, not extending between tops of 2 mucosal folds) esophagitis with no bleeding was found 35 to 39 cm from the incisors. A medium-sized hiatal hernia was present. No other significant abnormalities were identified in a careful examination of the stomach. No gross lesions were noted in the entire examined duodenum. Impression: - LA Grade A erosive esophagitis with no bleeding. - Medium-sized hiatal hernia. - No gross lesions in the entire examined duodenum. - No specimens collected. Recommendation: - [facility]. - Resume previous diet. - Continue present medications. Procedure Code(s): --- Professional --- 32117, Small intestinal endoscopy, enteroscopy beyond second portion of duodenum, not including ileum; diagnostic, including collection of specimen(s) by brushing or washing, when performed (separate procedure) CPT copyright 2021 [employer]. All rights reserved. The codes documented in this report are preliminary and upon cuprous chloride helper review may be revised to meet current compliance requirements. Ivan Huynh DO 02/19/2025 2:42:52 PM This report has been signed electronically. Number of Addenda: 0 Note Initiated On: 02/19/2025 2:21 PM
--- NOTE | 2025-02-19 14:43 | OP.CCLET_ITS ---
02/19/2025 Florin Bailey Do Re : Upper GI endoscopy procedure for Mily Long Dear Dr. Bailey This procedure was performed on Wednesday, February 19, 2025. My impressions and recommendations are as follows: Impressions : - LA Grade A erosive esophagitis with no bleeding. - Medium-sized hiatal hernia. - No gross lesions in the entire examined duodenum. - No specimens collected. Recommendations : - Return patient to [facility] for [facility] care. - Resume previous diet. - Continue present medications. My findings are described in the full procedure note, which is enclosed. If I can be of further assistance, please feel free to contact me at . Sincerely, Ivan Huynh, 02/19/2025 2:42:52 PM This report has been signed electronically.
--- NOTE | 2025-02-19 14:47 | PCM.POST.ANE ---
Anesthesia: Postop Eval I Current Vital Signs Temperature: 97.1 F Pulse Rate: 74 Blood Pressure: 106/53 Respiratory Rate: 16 Pulse Ox: 97 Oxygen Delivery Method: Room Air Assessment Airway patent: Yes Spontaneous unlabored respirations: Yes Mental status: Asleep nausea: No Vomiting: No Anesthesia Complication: No Fluid Hydration Crystalloid volume administer (ml): 300 Total IV fluid infused: 300 Progress Note Anesthesia document: Postop Eval 1 completed: Yes
--- NOTE | 2025-02-19 15:42 | NURSING ---
PACU nurse called to notify nurse that Pt is on her way and no bleeding was found nor any treatment was done. Pt arrive to floor alert and awake. Pt wanted to know what her results were and is asking for Dr. Peñaloza to talk to her. Text send to Dr. Peñaloza and order for clear liquid diet obtained.
[2025-02-19 16:22] LABS: Hematocrit 28.8 % (37-47); Hemoglobin 9.2 g/dL (12.0-15.0)
--- NOTE | 2025-02-19 16:53 | PCM.POSTANE2 ---
Anesthesia Postop Eval I Sum Postop Eval Completion status Anesthesia document: Postop Eval 1 completed: Yes Anesthesia Postop Eval I Summary Anesthesia Postop Eval I Summary: Anesthesia Postop Eval I: Assessment Summary Airway patent Yes 02/19/25 14:48 [email or web address] Spontaneous unlabored Yes 02/19/25 14:48 [email or web address] respirations Mental status Asleep 02/19/25 14:48 [email or web address] nausea No 02/19/25 14:48 [email or web address] Vomiting No 02/19/25 14:48 [email or web address] Anesthesia Postop Eval I: Fluid Summary Crystalloid volume administer 300 02/19/25 14:48 [email or web address] (ml) Colloids volume administered ( ml) Blood Product volume administered (ml) Total IV fluid infused 300 02/19/25 14:48 [email or web address] Anesthesia Postop Eval I: Summary Notes Anesthesia Complication No 02/19/25 14:48 [email or web address] Anesthesia Complication Comment: Post-operative progress note Anesthesia: Postop Eval II Evaluation Mental status: Awake and Calm Pain Level: 0 nausea: No Vomiting: No Complications Anesthesia Complication: No
[2025-02-19 19:37] LABS: Hematocrit 28.5 % (37-47); Hemoglobin 9.3 g/dL (12.0-15.0)
[2025-02-19] MEDS: TICAGRELOR 90 MG TABLET PO (20:54)
[2025-02-19] MEDS: Bisacodyl 5 MG Tablet 20 MG PO (20:54)
[2025-02-19] MEDS: Atorvastatin Calcium 40 MG Tablet PO (20:54)
[2025-02-19] MEDS: Polyethylene Glycol 3350 BOWEL PREP PO (22:10)
[2025-02-20] VITALS (13 sets, daily range): BP systolic 96–123; BP diastolic 46–80; PULSE 70–84; RESP 15–18; TEMP 36.3–36.6; O2SAT 99–100; BMI 24.3
[2025-02-20 06:26] LABS: Absolute Lymphocyte Count 0.55 X10^3/uL (0.83-4.51); Absolute Neutrophil Count 6.4 X10^3/uL (2.0-7.7); Anion Gap 13 (5-15); BUN 22 mg/dL (4-19); BUN/Creat Ratio 18.8 RATIO (10-20); Basophil# 0.01 X10^3/uL; Basophil% 0.1 % (0-1); Calcium,Total 9.5 mg/dL (7.6-11.0); Carbon Dioxide 19.7 mmol/L (21.0-32.0); Chloride 106 mmol/L (98-108); Creatinine, Serum 1.16 mg/dL (0.70-1.20); EST Glomerular Filtration Rate 52 (>60); Estimated Creatinine Clearance 46.39 ml/min (50-250); Glucose 146 mg/dL (70-99); Hematocrit 26.6 % (37-47); Hemoglobin 8.7 g/dL (12.0-15.0); Lymphocyte # 0.55 X10^3/ul (0.83-4.51); Lymphocyte % 7.8 % (19-41); Magnesium 2.2 mg/dL (1.5-2.2); Mean Corp Hgb Conc 32.7 g/dL (32-36); Mean Corpuscular Volume 97.8 fL (81-99); Mean Platelet Vol. 10.2 fl (6.2-12.0); Monocyte# 0.12 X10^3/uL; Monocyte% 1.7 % (0-10); NRBC Flagged by Analyzer 0 % (0-5); Neutrophil # 6.38 X10^3/uL (2.7-7.7); Neutrophil % 90.3 % (47-70); POSITIVE DIFFERENTIAL YES; Phosphorus 4.2 mg/dL (2.7-4.5); Platelet Count 230 K/mm3 (150-450); Potassium 4.4 mmol/L (3.3-5.1); RBC Distribution Width CV 15.3 % (11.6-14.6); RBC Distribution Width SD 54.4 fl (35.1-43.9); Red Blood Count 2.72 M/mm3 (4.2-5.4); Sodium Level 139 mmol/L (133-145); White Blood Count 7.1 K/mm3 (4.4-11.0)
--- NOTE | 2025-02-20 07:24 | PCM.PN.HOSP ---
Reason for Visit Reason for Visit: Diagnoses Gastrointestinal hemorrhage, unspecified (02/18/25) Subjective Subjective Patient underwent EGD the day prior results as documented below. Patient is scheduled to complete evaluation with a colonoscopy. Currently undergoing prep. Objective Data Objective Data Vital Signs: Vital Signs Temp Pulse Resp BP Pulse Ox O2 Del Method O2 Flow Rate 97.8 F 81 16 106/48 L 100 Room Air 2 02/20/25 04:38 02/20/25 04:38 02/20/25 04:38 02/20/25 04:38 02/20/25 04:38 02/20/25 04:38 02/19/25 14:13 Oxygen Flow Rate (L/min) 2 Oxygen Delivery Method Room Air Weight: 70.62 kg Body Mass Index (BMI) 24.3 Intake & Output: Intake and Output for Last 24 Hours 02/18/25 02/19/25 02/20/25 23:59 23:59 23:59 Intake Total 145 / 445 1020 / 2520 1500 / 1500 Balance 145 / 445 1020 / 2520 1500 / 1500 Lab / Micro Data 02/20/25 05:14 02/20/25 05:14 Labs: Laboratory Results - last 24 hr 02/19/25 06:50: Sodium 142, Potassium 4.1, Chloride 108, Carbon Dioxide 21.8, Anion Gap 12, BUN 18, Creatinine 1.14, Estim Creat Clear Calc 47.21 L, Est GFR (MDRD) Non-Af 53 L, BUN/Creatinine Ratio 15.7, Glucose 88, Calcium 9.3 02/19/25 09:25: Hgb 9.2 L, Hct 29.1 L 02/19/25 11:48: POC Glucose 87 02/19/25 12:17: Hgb 8.8 L, Hct 27.6 L 02/19/25 16:10: Hgb 9.2 L, Hct 28.8 L 02/19/25 19:30: Hgb 9.3 L, Hct 28.5 L 02/20/25 05:14: WBC 7.1, RBC 2.72 L, Hgb 8.7 L, Hct 26.6 L, MCV 97.8, MCH 32.0, MCHC 32.7, RDW Std Deviation 54.4 H, RDW Coeff of Gerber 15.3 H, Plt Count 230, MPV 10.2, Immature Gran % (Auto) 0.100, Neut % (Auto) 90.3 H, Lymph % (Auto) 7.8 L, Cotton % (Auto) 1.7, Eos % (Auto) 0.0, Baso % (Auto) 0.1, Absolute Neuts (auto) 6.4, Absolute Lymphs (auto) 0.55 L, Nucleated RBC % 0, Sodium 139, Potassium 4.4, Chloride 106, Carbon Dioxide 19.7 L, Anion Gap 13, BUN 22 H, Creatinine 1.16, Estim Creat Clear Calc 46.39 L, Est GFR (MDRD) Non-Af 52 L, BUN/Creatinine Ratio 18.8, Glucose 146 H, Calcium 9.5, Phosphorus 4.2, Magnesium 2.2 Radiography Diagnostic Testing: Radiology Impression Echocardiogram 02/19/25 08:18 Interpretation Summary The estimated ejection fraction is 65 %. No evidence for diastolic dysfunction. Moderate (2+) mitral valve insufficiency. Ordering Physician: Josh Peñaloza Referring Physician: Jakub Fischer Performed By: Keenan Beverly RCS Physical Exam Narrative GENERAL: cooperative HEENT: Atraumatic; normocephalic EYES; Anicteric, Normal Conjunctiva NECK; supple, normal thyroid, RESPIRATORY: Diminished to auscultation CARDIOVASCULAR: Regular S1 S2, GI: soft, normoactive bowel sounds, : No Renal angle tenderness; EXTREMITIES: No edema, no clubbing, MUSCULOSKELETAL: no muscle wasting NEURO: Awake; no lateralizing signs. SKIN: No Rash PSYCH; Flat affect Assessment & Plan Assessment/Plan (1) Acute GI bleeding: PLAN: Plan Patient is a 64-year-old lady with history of coronary artery disease with recent stent placement on dual antiplatelet therapy who was sent from her PCPs office with low hemoglobin with concerns for GI bleed. Patient had apparently been experiencing melena for almost a week 1. Upper GI bleed ? Suspected to be secondary to peptic ulcer disease exacerbated by the use of dual antiplatelet therapy. Patient had apparently been experiencing melena. Admitted to regular nursing floor started on Protonix consult placed to GI plans for patient to undergo upper endoscopy by Dr. Huynh. 02/20/2025; EGD performed the day prior results as below. - LA Grade A erosive esophagitis with no bleeding. - Medium-sized hiatal hernia. - No gross lesions in the entire examined duodenum. - No specimens collected. ? Plan is for patient to complete evaluation with a colonoscopy. 2. Anemia ? Secondary to acute blood loss anemia. Hemoglobin on admission 9.1 down to 8.8 as of 02/19/2025. Will continue with Q8 H&H monitoring with plans to transfuse if patient is deemed to be symptomatic or hemoglobin falls below 7. ? 02/20/2025; hemoglobin down to 8.7 we will continue with monitoring 3. Coronary artery disease ? With recent STEMI patient underwent PCI to her proximal LAD lesion on 10/10/2024 and 2 circumflex on 02/05/2025. Patient is on dual antiplatelet therapy continued given her recent stent placement to prevent thrombosis of her stent 4. Dyslipidemia ?Patient is on statin therapy, continued at home dose 5. New onset cardiac murmur ? Echo ordered for subsequent evaluation 6. Tobacco dependence ? Counseled on cessation, offered nicotine patch for tobacco cravings 7. DVT prophylaxis ? Bilateral SCDs 8. Recurrent UTI ? Patient is apparently being evaluated by urology as outpatient plan is for patient to resume care once discharged Charges/Coding Visit Charges Inpatient E&M: 62597 [facility] Hosp L2
[2025-02-20] MEDS: Metoprolol(XL)Succ 25 MG Tablet PO (10:14)
[2025-02-20] MEDS: Pantoprazole Sodium 40 MG in 0.9% Normal Saline (100mL MB+) 100 ML 330 MG IV ×2 (10:15→21:59)
--- NOTE | 2025-02-20 14:17 | NURSING ---
report called to Maddie [facility] AC
[2025-02-20] MEDS: Lactated Ringers 1,000 ML 15 ML IV (14:51)
--- NOTE | 2025-02-20 15:14 | PRE.ANES_ITS ---
ASA Classification* ASA Classification ASA Classification: 3 Assessment & Plan Anesthesia* Anesthesia Assessment Anesthesia Assessment: Discussed sedation and/or anesthesia options, risks, benefits, and alternatives with patient/parents/legal guardian/POA. Questions invited. The patient/parents/legal guardian/POA seems to understand and agrees to proceed with anesthesia plan. Reviewed the physical assessment, medical history, allergy history and patient home medications list prior to surgery/procedure/anesthetic and documented any changes. Performed airway and anesthesia risk assessments. Anesthesia Type Anesthesia Type: MAC Anesthesia Focused Assessment* Temperature: 97.9 F Pulse Rate: 77 Blood Pressure: 100/61 Respiratory Rate: 18 Pulse Ox: 100 Oxygen Flow Rate (L/min): 2 Airway Assessment Mouth opens: >3 cm Mallampati Score: II Focused Labs Anesthesia Preop lab: CBC WBC 7.1 K/mm3 (4.4-11.0) 02/20/25 05:14 02/20/25 RBC 2.72 M/mm3 (4.2-5.4) L 02/20/25 05:14 02/20/25 Hgb 8.7 g/dL (12.0-15.0) L 02/20/25 05:14 02/20/25 Hct 26.6 % (37-47) L 02/20/25 05:14 02/20/25 Plt Count 230 K/mm3 (150-450) 02/20/25 05:14 02/20/25 CHEMISTRY Potassium 4.4 mmol/L (3.3-5.1) 02/20/25 05:14 02/20/25 Sodium 139 mmol/L (133-145) 02/20/25 05:14 02/20/25 Magnesium 2.2 mg/dL (1.5-2.2) 02/20/25 05:14 02/20/25 Phosphorus 4.2 mg/dL (2.7-4.5) 02/20/25 05:14 02/20/25 BUN 22 mg/dL (4-19) H 02/20/25 05:14 02/20/25 Creatinine 1.16 mg/dL (0.70-1.20) 02/20/25 05:14 02/20/25 Glucose 146 mg/dL (70-99) H 02/20/25 05:14 02/20/25 POC Glucose 87 mg/dL (74-106) 02/19/25 11:48 02/19/25 TSH 3.970 uIU/mL (0.300-4.200) 02/06/25 09:33 01/22 04/17 COAG PT 12.9 SECONDS (11.7-14.9) 02/04/25 12:57 Pre-Assessment Diagnosis/Proposed Procedure Planned Operative Procedure(s): Colonoscopy. Anesthesia History Anesthesia History - special inspector: Anesthesia History - special inspector Hx Hospitalization Any Problems With Anesthesia Yes: trouble waking up after 02/18/25 21:39 , BP decreases and sick to stomach Cholinesterase deficiency No 02/18/25 21:39 You/Your Family Experience No 02/18/25 21:39 fever (hyperthermia) with Relationship Recent Exposure to Contagious No 02/18/25 21:39 Disease Does patient have nerve No 02/18/25 21:39 stimulator Patient instructed to have No 02/18/25 21:39 device shut off --Does patient have Pacemaker or ICD? When Was Last Pacemaker Check QUESTION #4 FULL TEXT: You/Your Family Experience fever (hyperthermia) with Anesthesia Last Oral Intake Last Oral intake: Last Oral Intake NPO since 03:00 02/20/25 14:09 Meds taken in AM with sips of Yes 02/20/25 14:09 water? Meds patient instructed to toprol xl taken at 1100 with 02/20/25 14:09 take am of surgery sip of water PONV PONV - special inspector: PONV - special inspector Female HX of Motion Sickness HX of N/V After Surgery Non-Smoker Duration of Surgery greater than 60 minutes Number of Risk Factors PONV Score Height & Weight Height & Weight: Anesthesia: Height & Weight Height 5 ft 7 in 02/19/25 16:34 Weight: 70.62 kg 02/19/25 16:34 Body Mass Index (BMI) 24.3 02/20/25 14:09 Respiratory Assessment Respiratory Assessment - special inspector: Respiratory Tract Infection Hx - special inspector Hx Respiratory Tract Infection No 02/18/25 21:39 STOP Sleep Apnea STOP Sleep Apnea - special inspector: STOP Sleep Apnea - special inspector Hx Hypertension Yes 02/18/25 15:53 Hx Sleep Apnea Yes 02/18/25 15:53 CPAP Yes 02/19/25 14:41 BIPAP No 02/18/25 15:53 Do you snore loudly (louder than talking or can be heard Do you often feel tired/ fatigued/ sleepy during daytime? Has anyone observed you stop breathing during sleep? STOP Results Positive 02/19/25 14:41 QUESTION #5 FULL TEXT : Do you snore loudly (louder than talking or can be heard through closed doors)? 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 confused, unrespo /Reproduction History /Reproductive History - special inspector: /Reproductive Hx- special inspector Hx Now No 02/18/25 21:39 Gestational Age (in weeks): EDC: Hx Hx Para Hx Section SAB No 02/18/25 21:39 Active Medications Active Medications: Current Medications Generic Name Dose Route Start Last Admin Trade Name Freq PRN Reason Stop Dose Admin Albuterol Sulfate 2.5 mg 02/18/25 16:08 Albuterol 2.5 Mg/3 Ml Vial.Neb. INHALATION Q4H PRN Wheezing Ascorbic Acid 1,000 mg 02/19/25 10:00 02/20/25 08:22 Ascorbic Acid 500 Mg Tablet PO Not Given DAILY GABO Aspirin 81 mg 02/19/25 08:00 02/20/25 08:22 Aspirin E.C. 81 Mg Tablet PO Not Given DAILY@0800 GABO Atorvastatin Calcium 40 mg 02/18/25 22:00 02/19/25 20:54 Atorvastatin Calcium 40 Mg Tablet PO 40 mg QHS GABO Administration Sodium Chloride 100 mls @ 15 mls/hr 02/18/25 15:59 IV .Q6H40M PRN Saline Flush Sodium Chloride 100 mls @ 15 mls/hr 02/18/25 15:59 IV .Q6H40M PRN Additional IVPB Infusion Pantoprazole Sodium 40 mg/ 110 mls @ 330 mls/hr 02/18/25 22:00 02/20/25 10:35 Sodium Chloride IV Infused Q12 GABO Infusion Lactated Ringer's 1,000 mls @ 15 mls/hr 02/19/25 13:45 02/20/25 14:51 IV 15 mls/hr .Q48H GABO Administration Lisinopril 2.5 mg 02/19/25 10:00 02/20/25 10:19 Lisinopril 2.5 Mg Tablet PO Not Given DAILY [facility] Protocol Metoprolol Succinate 25 mg 02/19/25 10:00 02/20/25 10:14 Metoprolol(Xl)Succ 25 Mg Tablet PO 25 mg DAILY GABO Administration Protocol Nitroglycerin 0.4 mg 02/19/25 07:32 Nitroglycerin (Inpatient Use) 0.4 Mg Tab.Subl SL Q5M PRN CARDIAC/CHEST PAIN Ondansetron HCl 4 mg 02/18/25 16:06 Ondansetron Odt 4 Mg Tablet PO Q6H PRN PRN Nausea Sodium Chloride 10 - 40 ml 02/18/25 15:59 0.9% Saline Lock 10 Ml Syringe IV UD PRN SALINE FLUSH Ticagrelor 90 mg 02/18/25 22:00 02/20/25 08:22 Ticagrelor 90 Mg Tablet PO Not Given BID GABO PFSH Medical History GERD (gastroesophageal reflux disease) Smoker CPAP (continuous positive airway pressure) dependence Non-ST elevation AL (NSTEMI) Hematuria UTI (urinary tract infection) Hyperlipidemia Atherosclerosis of coronary artery of [place] heart without angina pectoris Myocardial infarct Medical History no medical history Home Medications ?Medication ?Instructions ?Recorded ?Last Taken ?Type aspirin 81 mg tablet,delayed 81 mg PO DAILY@0800 heart health 10/11/24 02/18/25 Rx release 90 days #90 tabs atorvastatin 40 mg tablet 40 mg PO QHS cholesterol 90 days 10/26/24 02/17/25 Rx #90 tabs lisinopril 2.5 mg tablet 2.5 mg PO DAILY blood pressu re 90 10/26/24 02/04/25 Rx days #90 tabs metoprolol succinate 25 mg 25 mg PO DAILY heart 90 day s #90 10/26/24 02/18/25 Rx tablet,extended release 24 hr tabs (Toprol XL) ticagrelor 90 mg tablet (Brilinta) 90 mg PO BID blood thinner 90 days 10/26/24 02/18/25 Rx #180 tabs albuterol sulfate 90 mcg/actuation 2 puff inhalation Q 4H PRN PRN 02/06/25 Unknown Rx aerosol inhaler (Ventolin HFA) Wheezing ##1 ascorbate calcium (vitamin C) 500 1 g PO DAILY 5 02/05/25 History mg tablet cranberry [id number] 2 tab PO DAILY supplement 02/05/25 History coagulans 250 mg-30 mg-15 mg tablet (Azo Cranberry Plus Probiotic) ondansetron 4 mg disintegrating 4 mg PO Q6H PRN PRN Na usea #15 tabs 02/06/25 02/17/25 Rx tablet nitroglycerin 0.4 mg sublingual 0.4 mg sublingual Q5-1 5M PRN chest 02/07/25 Unknown Rx tablet pain #25 tabs Allergy/AdvReac Type Severity Reaction Status Date / Time Penicillins Allergy Hives Verified 02/20/25 14:48 Sulfa (Sulfonamide AdvReac Diarrhea Verified 02/20/25 14:48 Antibiotics) Family History Father CAD (coronary artery disease) CABG age 68; CVA (cerebral vascular accident) Myocardial infarction Mother Cancer Cervical, Melanoma, Colon Surgical History Status post cardiac surgery History of coronary artery stent placement History of carpal tunnel surgery of left wrist History of coronary artery stent placement (02/04/25) Surgical History no surgical history Social History household members: spouse housing: house Smoking Status: Current every day smoker tobacco type: cigarettes second hand exposure: No Review of Systems (Anesthesia) ROS Narrative System reviewed and no additional complaints, except as documented.
--- NOTE | 2025-02-20 15:17 | PN_ITS ---
Progress Note Patient underwent an upper endoscopy yesterday. No etiology of GI bleed was seen. She still remains on Plavix and Brilinta therapy. She is for colonoscopy today. Physical Exam Narrative GENERAL: cooperative HEENT: Atraumatic; normocephalic EYES; Anicteric, Normal Conjunctiva NECK; supple, normal thyroid, RESPIRATORY: Diminished to auscultation CARDIOVASCULAR: Regular S1 S2, GI: soft, normoactive bowel sounds, : No Renal angle tenderness; EXTREMITIES: No edema, no clubbing, MUSCULOSKELETAL: no muscle wasting NEURO: Awake; no lateralizing signs. SKIN: No Rash PSYCH; Flat affect Assessment & Plan Assessment/Plan (1) Acute GI bleeding: PLAN: Plan 64-year-old female who presents to the office today for a posthospital follow- up. She was evaluated at [facility] in September [address] elevated myocardial infarction of the anterolateral wall. She proceeded with drug-eluting stent to LAD and PTCA of the proximal diagonal. Heart catheterization showed left main with mild luminal irregularities, proximal LAD with 80% stenosis, mid LAD with 40% stenosis, diagonal 1 with 99% stenosis, LCx with mild diffuse disease, ostial RCA with 30-40% stenosis, and proximal RCA with mild luminal irregularities. Echocardiogram showed ejection fraction of 50%, stage I diastolic dysfunction, and wall motion abnormality with severely hypokinetic mid anterior wall and apex. She presents with: Acute blood loss anemia secondary to an upper GI bleed ? Likely upper GI bleed secondary to antiplatelet anticoagulation. She will need to undergo an upper endoscopy tomorrow. She was explained alternatives, risk and benefits include understanding bleeding, pressure, sepsis, perforation, need for charge and . She would have an ASA of 3. Sh she is still on aspirin and her Brilinta to prevent in-stent occlusion. Further recommendations after she has upper endoscopy. 02/20/2025-patient underwent upper endoscopy yesterday. She will undergo colonoscopy. Further recommendations after colonoscopy. Visit Charges Inpatient E&M: [id number] [facility] L3
--- NOTE | 2025-02-20 15:41 | OP.COLON_ITS ---
Patient Name: Mily Long Procedure Date: 02/20/2025 3:20 PM Date of : 1960 Age: 64 Procedure: Colonoscopy Indications: Iron deficiency anemia Providers: Ivan Huynh DO Referring MD: Jakub Fischer Medicines: Monitored Anesthesia Care Patient Profile: This is a 64 year old female. Refer to note in patient chart for documentation of history and physical. Last Colonoscopy: date unknown. Unable to locate last colonoscopy report. Complications: No immediate complications. Procedure: Pre-Anesthesia Assessment: - Prior to the procedure, a History and Physical was performed, and patient medications and allergies were reviewed. The patient is competent. The risks and benefits of the procedure and the sedation options and risks were discussed with the patient. All questions were answered and informed consent was obtained. Patient identification and proposed procedure were verified by the physician in the pre-procedure area. Mental Status Examination: alert and oriented. Airway Examination: normal oropharyngeal airway and neck mobility. Respiratory Examination: clear to auscultation. CV Examination: normal. Prophylactic Antibiotics: The patient does not require prophylactic antibiotics. Prior Anticoagulants: The patient has taken no anticoagulant or antiplatelet agents except for NSAID medication. ASA Grade Assessment: II - A patient with mild systemic disease. After reviewing the risks and benefits, the patient was deemed in satisfactory condition to undergo the procedure. The anesthesia plan was to use monitored anesthesia care (MAC). Immediately prior to administration of medications, the patient was re-assessed for adequacy to receive sedatives. The heart rate, respiratory rate, oxygen saturations, blood pressure, adequacy of pulmonary ventilation, and response to care were monitored throughout the procedure. The physical status of the patient was re-assessed after the procedure. After I obtained informed consent, the scope was passed under direct vision. Throughout the procedure, the patient's blood pressure, pulse, and oxygen saturations were monitored continuously. The Colonoscope was introduced through the anus and advanced to the splenic flexure. The colonoscopy was performed without difficulty. The patient tolerated the procedure well. The quality of the bowel preparation was poor. Anatomical landmarks were photographed. Scope In: 3:33:27 PM Scope Out: 3:35:22 PM Total Procedure Duration Time 0 hours 1 minute 55 seconds Findings: The perianal and digital rectal examinations were normal. Multiple small and large-mouthed diverticula were found in the recto-sigmoid colon, sigmoid colon, descending colon and splenic flexure. There was no evidence of diverticular bleeding. Extensive amounts of stool was found at the anus, in the rectum, in the recto-sigmoid colon, in the sigmoid colon, in the descending colon and at the splenic flexure, precluding visualization. Impression: - Preparation of the colon was poor. - Moderate diverticulosis in the recto-sigmoid colon, in the sigmoid colon, in the descending colon and at the splenic flexure. There was no evidence of diverticular bleeding. - Stool at the anus, in the rectum, in the recto-sigmoid colon, in the sigmoid colon, in the descending colon and at the splenic flexure. - No specimens collected. Recommendation: - [facility] care. - Clear liquid diet. - Continue present medications. - Repeat colonoscopy because the bowel preparation was poor. Procedure Code(s): --- Professional --- 73328, 53, Colonoscopy, flexible; diagnostic, including collection of specimen(s) by brushing or washing, when performed (separate procedure) CPT copyright 2021 [employer]. All rights reserved. The codes documented in this report are preliminary and upon oil and gas field technician review may be revised to meet current compliance requirements. Ivan Huynh DO 02/20/2025 3:40:38 PM This report has been signed electronically. Number of Addenda: 0 Note Initiated On: 02/20/2025 3:20 PM
--- NOTE | 2025-02-20 15:41 | OP.CCLET_ITS ---
02/20/2025 Florin Bailey Do Re : Colonoscopy procedure for Mily Long Dear Dr. Bailey This procedure was performed on Thursday, February 20, 2025. My impressions and recommendations are as follows: Impressions : - Preparation of the colon was poor. - Moderate diverticulosis in the recto-sigmoid colon, in the sigmoid colon, in the descending colon and at the splenic flexure. There was no evidence of diverticular bleeding. - Stool at the anus, in the rectum, in the recto-sigmoid colon, in the sigmoid colon, in the descending colon and at the splenic flexure. - No specimens collected. Recommendations : - [facility] to [facility]. - Clear liquid diet. - Continue present medications. - Repeat colonoscopy because the bowel preparation was poor. My findings are described in the full procedure note, which is enclosed. If I can be of further assistance, please feel free to contact me at . Sincerely, Ivan Huynh DO 02/20/2025 3:40:38 PM This report has been signed electronically.
--- NOTE | 2025-02-20 15:43 | PCM.POST.ANE ---
Anesthesia: Postop Eval I Current Vital Signs Temperature: 97.5 F Pulse Rate: 78 Blood Pressure: 99/46 Respiratory Rate: 16 Pulse Ox: 100 Assessment Airway patent: Yes Spontaneous unlabored respirations: Yes nausea: No Vomiting: No Anesthesia Complication: No Fluid Hydration Crystalloid volume administer (ml): 100 Total IV fluid infused: 100 Progress Note Anesthesia document: Postop Eval 1 completed: Yes
--- NOTE | 2025-02-20 16:17 | POSTOPAN2_ITS ---
Anesthesia Postop Eval I Sum Postop Eval Completion status Anesthesia document: Postop Eval 1 completed: Yes Anesthesia Postop Eval I Summary Anesthesia Postop Eval I Summary: Anesthesia Postop Eval I: Assessment Summary Airway patent Yes 02/20/25 15:43 [email or web address] [email or web address] Spontaneous unlabored Yes 02/20/25 15:43 CHILD [email or web address] respirations Mental status Awake,Calm 02/19/25 16:54 CHILD [email or web address] nausea No 02/20/25 15:43 CHILD [email or web address] Vomiting No 02/20/25 15:43 CHILD [email or web address] Anesthesia Postop Eval I: Fluid Summary Crystalloid volume administer 100 02/20/25 15:43 CHILD [email or web address] (ml) Colloids volume administered ( ml) Blood Product volume administered (ml) Total IV fluid infused 100 02/20/25 15:43 CHILD [email or web address] Anesthesia Postop Eval I: Summary Notes Anesthesia Complication No 02/20/25 15:43 CHILD [email or web address] Anesthesia Complication Comment: Post-operative progress note Anesthesia: Postop Eval II Evaluation Mental status: Awake Pain Level: 0 nausea: No Vomiting: No
--- NOTE | 2025-02-20 16:17 | PCM.POSTANE2 ---
Anesthesia Postop Eval I Sum Postop Eval Completion status Anesthesia document: Postop Eval 1 completed: Yes Anesthesia Postop Eval I Summary Anesthesia Postop Eval I Summary: Anesthesia Postop Eval I: Assessment Summary Airway patent Yes 02/20/25 15:43 TOP DYEING MACHINE [email or web address].[email or web address] Spontaneous unlabored Yes 02/20/25 15:43 TOP DYEING MACHINE TENDER.TNES respirations Mental status Awake,Calm 02/19/25 16:54 TOP DYEING MACHINE TENDER.[email or web address] nausea No 02/20/25 15:43 TOP DYEING MACHINE [email or web address].TNES Vomiting No 02/20/25 15:43 TOP DYEING MACHINE [email or web address].TNES Anesthesia Postop Eval I: Fluid Summary Crystalloid volume administer 100 02/20/25 15:43 TOP DYEING MACHINE TENDER.TNES (ml) Colloids volume administered ( ml) Blood Product volume administered (ml) Total IV fluid infused 100 02/20/25 15:43 TOP DYEING MACHINE [email or web address].[email or web address] Anesthesia Postop Eval I: Summary Notes Anesthesia Complication No 02/20/25 15:43 TOP DYEING MACHINE [email or web address].[email or web address] Anesthesia Complication Comment: Post-operative progress note Anesthesia: Postop Eval II Evaluation Mental status: Awake Pain Level: 0 nausea: No Vomiting: No
--- NOTE | 2025-02-20 16:18 | ANES.CONFIRM ---
Anesthesia: Confirm Documents Multiple Procedures on Account (2) Confirmed Documents: Yes
[2025-02-20] MEDS: Bisacodyl 5 MG Tablet 20 MG PO (16:30)
--- NOTE | 2025-02-20 16:49 | NURSING ---
pt prep has not arrived to unit at this time
--- NOTE | 2025-02-20 16:59 | NURSING ---
spoke with Rx/staff re:pt wants to start bowel prep now, please send, they are agreeable
--- NOTE | 2025-02-20 17:05 | PCM.DC.SUM ---
Providers Date of Admission: 02/18/25 Date of Discharge: 02/20/25 Primary Care Physician: Dr. Florin Bailey, DO Consultations 02/18/25 16:06 Consult: Gastroenterology Routine Consulting Provider: Ivan Huynh Reason for Consult: GI bleed EMERGENT Consult: No MD Notified: Yes Date Notified: 02/18/25 Time Notified: 16:09 Method of Notification: Text Reason For Visit: GI BLEED Diagnosis Discharge Diagnosis (1) Acute GI bleeding: Status: Acute Code(s): K92.2 - Gastrointestinal hemorrhage, unspecified Plan Patient is a 64-year-old lady with history of coronary artery disease with recent stent placement on dual antiplatelet therapy who was sent from her PCPs office with low hemoglobin with concerns for GI bleed. Patient had apparently been experiencing melena for almost a week 1. Upper GI bleed ? Suspected to be secondary to peptic ulcer disease exacerbated by the use of dual antiplatelet therapy. Patient had apparently been experiencing melena. Admitted to regular nursing floor started on Protonix consult placed to GI plans for patient to undergo upper endoscopy by Dr. Huynh. 02/20/2025; EGD performed the day prior results as below. - LA Grade A erosive esophagitis with no bleeding. - Medium-sized hiatal hernia. - No gross lesions in the entire examined duodenum. - No specimens collected. ? Plan is for patient to complete evaluation with a colonoscopy. 2. Anemia ? Secondary to acute blood loss anemia. Hemoglobin on admission 9.1 down to 8.8 as of 02/19/2025. Will continue with Q8 H&H monitoring with plans to transfuse if patient is deemed to be symptomatic or hemoglobin falls below 7. ? 02/20/2025; hemoglobin down to 8.7 we will continue with monitoring 3. Coronary artery disease ? With recent STEMI patient underwent PCI to her proximal LAD lesion on 10/10/2024 and 2 circumflex on 02/05/2025. Patient is on dual antiplatelet therapy continued given her recent stent placement to prevent thrombosis of her stent 4. Dyslipidemia ?Patient is on statin therapy, continued at home dose 5. New onset cardiac murmur ? Echo ordered for subsequent evaluation 6. Tobacco dependence ? Counseled on cessation, offered nicotine patch for tobacco cravings 7. DVT prophylaxis ? Bilateral SCDs 8. Recurrent UTI ? Patient is apparently being evaluated by urology as outpatient plan is for patient to resume care once discharged Medications at Discharge Home Medications aspirin 81 mg tablet,delayed release 81 mg PO DAILY@0800 heart health 90 days #90 tabs 10/11/24 atorvastatin 40 mg tablet 40 mg PO QHS cholesterol 90 days #90 tabs 10/26/24 lisinopril 2.5 mg tablet 2.5 mg PO DAILY blood pressure 90 days #90 tabs 10/26/24 metoprolol succinate 25 mg tablet,extended release 24 hr (Toprol XL) 25 mg PO DAILY heart 90 days #90 tabs 10/26/24 ticagrelor 90 mg tablet (Brilinta) 90 mg PO BID blood thinner 90 days #180 tabs 10/26/24 albuterol sulfate 90 mcg/actuation aerosol inhaler (Ventolin HFA) 2 puff inhalation Q4H PRN PRN Wheezing ##1 02/06/25 ascorbate calcium (vitamin C) 500 mg tablet 1 g PO DAILY 02/06/25 cranberry [id number] coagulans 250 mg-30 mg-15 mg tablet (Azo Cranberry Plus Probiotic) 2 tab PO DAILY supplement 02/06/25 ondansetron 4 mg disintegrating tablet 4 mg PO Q6H PRN PRN Nausea #15 tabs 02/06/25 nitroglycerin 0.4 mg sublingual tablet 0.4 mg sublingual Q5-15M PRN chest pain #25 tabs 02/07/25 Weight / BMI Weight Weight: 70.62 kg Body Mass Index (BMI) 24.3 ABG / Lab / Microbiology Data 02/20/25 05:14 02/20/25 05:14 Laboratory: Laboratory Results - last 24 hr 02/19/25 19:30: Hgb 9.3 L, Hct 28.5 L 02/20/25 05:14: WBC 7.1, RBC 2.72 L, Hgb 8.7 L, Hct 26.6 L, MCV 97.8, MCH 32.0, MCHC 32.7, RDW Std Deviation 54.4 H, RDW Coeff of Gerber 15.3 H, Plt Count 230, MPV 10.2, Immature Gran % (Auto) 0.100, Neut % (Auto) 90.3 H, Lymph % (Auto) 7.8 L, [place] % (Auto) 1.7, Eos % (Auto) 0.0, Baso % (Auto) 0.1, Absolute Neuts (auto) 6.4, Absolute Lymphs (auto) 0.55 L, Nucleated RBC % 0, Sodium 139, Potassium 4.4, Chloride 106, Carbon Dioxide 19.7 L, Anion Gap 13, BUN 22 H, Creatinine 1.16, Estim Creat Clear Calc 46.39 L, Est GFR (MDRD) Non-Af 52 L, BUN/Creatinine Ratio 18.8, Glucose 146 H, Calcium 9.5, Phosphorus 4.2, Magnesium 2.2 Meaningful Use Info Ischemic Stroke Statin Dosing Therapy Reference: STATIN DOSE THERAPY REFERENCE: * Patients > 75 years receive moderate or high dose statin therapy. * Patients 75 years or YOUNGER should receive HIGH intensity statin dose unless contraindicated. You will be required to document reason for non-treatment if statin daily dose does not meet guidelines. HIGH DOSE STATIN THERAPY DAILY Atorvastatin > than or = to 40 mg Rosuvastatin > than or = to 20 mg Amlodipine + Atorvastatin > than or = to 2.5/40 mg Ezetimibe + Simvastatin 10/80 mg Simvastatin 80mg Discharge Plan Admission Admit Date/Time: 02/18/25 14:05 Attending Provider: Josh Peñaloza Primary Care Provider: Florin Bailey Consulting Providers: Ivan Huynh; Jakub Fischer Discharge Orders/Prescriptions Prescriptions: No Action lisinopril 2.5 mg tablet 2.5 mg PO DAILY 90 Days Qty: 90 3RF Patient Comments: pt told yesterday if BP is less than 99, not to take med. pt has not taken since 02/04/25 metoprolol succinate [Toprol XL] 25 mg tablet extended release 24 hr 25 mg PO DAILY 90 Days Qty: 90 3RF Brilinta 90 mg tablet 90 mg PO BID 90 Days Qty: 180 3RF atorvastatin 40 mg tablet 40 mg PO QHS 90 Days Qty: 90 3RF nitroglycerin 0.4 mg tablet, sublingual 0.4 mg sublingual Q5-15M PRN (Reason: chest pain) Qty: 25 3RF Rx Instructions: do not exceed 3 doses per episode aspirin 81 mg Tablet,Delayed Release (Dr/Ec) 81 mg PO DAILY@0800 90 Days Qty: 90 3RF ascorbate calcium (vitamin C) 500 mg tablet 1 g PO DAILY Azo Cranberry Plus Probiotic 250-30-15 mg tablet 2 tab PO DAILY albuterol sulfate [Ventolin HFA] 90 mcg/actuation HFA aerosol inhaler 2 puff inhalation Q4H PRN PRN (Reason: Wheezing) Qty: 1 0RF Rx Instructions: with spacer ondansetron 4 mg tablet,disintegrating 4 mg PO Q6H PRN PRN (Reason: Nausea) Qty: 15 0RF Referrals / Follow Up: Florin Bailey DO [Primary Care Provider] -
[2025-02-20] MEDS: Electrolyte Solution/Peg's 4000 ML PO (17:13)
--- NOTE | 2025-02-20 18:20 | NURSING ---
spoke with Dr Friend, he does want pt to have SSE tonight along with oral go-lytely prep
[2025-02-20] MEDS: TICAGRELOR 90 MG TABLET PO (22:01)
[2025-02-20] MEDS: Atorvastatin Calcium 40 MG Tablet PO (22:01)
[2025-02-21] VITALS (14 sets, daily range): BP systolic 90–136; BP diastolic 43–64; PULSE 69–102; RESP 15–18; TEMP 36.2–36.8; O2SAT 95–100
[2025-02-21 05:54] LABS: Absolute Lymphocyte Count 2.19 X10^3/uL (0.83-4.51); Absolute Neutrophil Count 7.7 X10^3/uL (2.0-7.7); Basophil# 0.08 X10^3/uL; Basophil% 0.8 % (0-1); Eosinophil# 0.05 X10^3/uL; Eosinophils% 0.5 % (0-5); Hematocrit 23.9 % (37-47); Hemoglobin 7.8 g/dL (12.0-15.0); Lymphocyte # 2.19 X10^3/ul (0.83-4.51); Lymphocyte % 20.7 % (19-41); Mean Corp Hgb Conc 32.6 g/dL (32-36); Mean Corpuscular Hgb 32.1 pg (27.0-32.0); Mean Corpuscular Volume 98.4 fL (81-99); Mean Platelet Vol. 10.2 fl (6.2-12.0); Monocyte% 4.7 % (0-10); NRBC Flagged by Analyzer 0 % (0-5); Neutrophil # 7.74 X10^3/uL (2.7-7.7); Neutrophil % 72.9 % (47-70); Platelet Count 199 K/mm3 (150-450); RBC Distribution Width CV 15.8 % (11.6-14.6); RBC Distribution Width SD 56.3 fl (35.1-43.9); Red Blood Count 2.43 M/mm3 (4.2-5.4); White Blood Count 10.6 K/mm3 (4.4-11.0)
[2025-02-21 06:20] LABS: Anion Gap 12 (5-15); BUN 22 mg/dL (4-19); BUN/Creat Ratio 18.7 RATIO (10-20); Calcium,Total 9.1 mg/dL (7.6-11.0); Carbon Dioxide 20.1 mmol/L (21.0-32.0); Chloride 108 mmol/L (98-108); Creatinine, Serum 1.16 mg/dL (0.70-1.20); EST Glomerular Filtration Rate 52 (>60); Estimated Creatinine Clearance 46.39 ml/min (50-250); Glucose 93 mg/dL (70-99); Potassium 3.6 mmol/L (3.3-5.1); Sodium Level 141 mmol/L (133-145)
--- NOTE | 2025-02-21 07:01 | PN_ITS ---
Progress Note Patient has been n.p.o. since midnight. Physical Exam Narrative GENERAL: cooperative HEENT: Atraumatic; normocephalic EYES; Anicteric, Normal Conjunctiva NECK; supple, normal thyroid, RESPIRATORY: Diminished to auscultation CARDIOVASCULAR: Regular S1 S2, GI: soft, normoactive bowel sounds, : No Renal angle tenderness; EXTREMITIES: No edema, no clubbing, MUSCULOSKELETAL: no muscle wasting NEURO: Awake; no lateralizing signs. SKIN: No Rash PSYCH; Flat affect Assessment & Plan Assessment/Plan (1) Acute GI bleeding: PLAN: Plan 64-year-old female who presents to the office today for a posthospital follow- up. She was evaluated at [facility] in September [address] elevated myocardial infarction of the anterolateral wall. She proceeded with drug-eluting stent to LAD and PTCA of the proximal diagonal. Heart catheterization showed left main with mild luminal irregularities, proximal LAD with 80% stenosis, mid LAD with 40% stenosis, diagonal 1 with 99% stenosis, LCx with mild diffuse disease, ostial RCA with 30-40% stenosis, and proximal RCA with mild luminal irregularities. Echocardiogram showed ejection fraction of 50%, stage I diastolic dysfunction, and wall motion abnormality with severely hypokinetic mid anterior wall and apex. She presents with: Acute blood loss anemia secondary to an upper GI bleed ? Likely upper GI bleed secondary to antiplatelet anticoagulation. She will need to undergo an upper endoscopy tomorrow. She was explained alternatives, risk and benefits include understanding bleeding, pressure, sepsis, perforation, need for charge and . She would have an ASA of 3. Sh she is still on aspirin and her Brilinta to prevent in-stent occlusion. Further recommendations after she has upper endoscopy. 02/20/2025-patient underwent upper endoscopy yesterday. She will undergo colonoscopy. Further recommendations after colonoscopy. 02/21/2025-patient to undergo colonoscopy today. She had notable enemas in the and completed the prep and is clear. Visit Charges Inpatient E&M: [id number] [facility] L3
--- NOTE | 2025-02-21 08:19 | PN.HOSP_ITS ---
Reason for Visit Reason for Visit: Diagnoses Gastrointestinal hemorrhage, unspecified (02/18/25) Subjective Subjective Patient is scheduled to undergo repeat colonoscopy. Preparation for colonoscopy the day prior was reported to be poor. Hemoglobin down to 7.8. Objective Data Objective Data Vital Signs: Vital Signs Temp Pulse Resp BP Pulse Ox O2 Del Method O2 Flow Rate 97.8 F 69 15 107/54 L 97 Room Air 2 02/21/25 03:19 02/21/25 03:19 02/21/25 03:20 02/21/25 03:19 02/21/25 03:20 02/21/25 03:20 02/20/25 15:15 Oxygen Flow Rate (L/min) 2 Oxygen Delivery Method Room Air Weight: 70.62 kg Body Mass Index (BMI) 24.3 Intake & Output: Intake and Output for Last 24 Hours 02/19/25 02/20/25 02/21/25 23:59 23:59 23:59 Intake Total 1020 / 2520 6376 / 6376 Balance 1020 / 2520 6376 / 6376 Lab / Micro Data 02/21/25 05:30 02/21/25 05:30 Labs: Laboratory Results - last 24 hr 02/21/25 05:30: WBC 10.6, RBC 2.43 L, Hgb 7.8 L, Hct 23.9 L, MCV 98.4, MCH 32.1 H, MCHC 32.6, RDW Std Deviation 56.3 H, RDW Coeff of Gerber 15.8 H, Plt Count 199, MPV 10.2, Immature Gran % (Auto) 0.400, Neut % (Auto) 72.9 H, Lymph % (Auto) 20.7, [place] % (Auto) 4.7, Eos % (Auto) 0.5, Baso % (Auto) 0.8, Absolute Neuts (auto) 7.7, Absolute Lymphs (auto) 2.19, Nucleated RBC % 0, Sodium 141, Potassium 3.6, Chloride 108, Carbon Dioxide 20.1 L, Anion Gap 12, BUN 22 H, Creatinine 1.16, Estim Creat Clear Calc 46.39 L, Est GFR (MDRD) Non-Af 52 L, BUN/Creatinine Ratio 18.7, Glucose 93, Calcium 9.1 Physical Exam Narrative GENERAL: cooperative HEENT: Atraumatic; normocephalic EYES; Anicteric, Normal Conjunctiva NECK; supple, normal thyroid, RESPIRATORY: Diminished to auscultation CARDIOVASCULAR: Regular S1 S2, GI: soft, normoactive bowel sounds, : No Renal angle tenderness; EXTREMITIES: No edema, no clubbing, MUSCULOSKELETAL: no muscle wasting NEURO: Awake; no lateralizing signs. SKIN: No Rash PSYCH; Flat affect Assessment & Plan Assessment/Plan (1) Acute GI bleeding: PLAN: Plan Patient is a 64-year-old lady with history of coronary artery disease with recent stent placement on dual antiplatelet therapy who was sent from her PCPs office with low hemoglobin with concerns for GI bleed. Patient had apparently been experiencing melena for almost a week 1. Upper GI bleed ? Suspected to be secondary to peptic ulcer disease exacerbated by the use of dual antiplatelet therapy. Patient had apparently been experiencing melena. Admitted to regular nursing floor started on Protonix consult placed to GI plans for patient to undergo upper endoscopy by Dr. Huynh. 02/20/2025; EGD performed the day prior results as below. - LA Grade A erosive esophagitis with no bleeding. - Medium-sized hiatal hernia. - No gross lesions in the entire examined duodenum. - No specimens collected. ? Plan is for patient to complete evaluation with a colonoscopy. ? 02/21/2025;Patient is scheduled to undergo repeat colonoscopy. Preparation for colonoscopy the day prior was reported to be poor. 2. Anemia ? Secondary to acute blood loss anemia. Hemoglobin on admission 9.1 down to 8.8 as of 02/19/2025. Will continue with Q8 H&H monitoring with plans to transfuse if patient is deemed to be symptomatic or hemoglobin falls below 7. ? 02/20/2025; hemoglobin down to 8.7 we will continue with monitoring ? 02/21/2025;Hemoglobin down to 7.8.. An order was given to the patient to receive iron infusion 3. Coronary artery disease ? With recent STEMI patient underwent PCI to her proximal LAD lesion on 10/10/2024 and 2 circumflex on 02/05/2025. Patient is on dual antiplatelet therapy continued given her recent stent placement to prevent thrombosis of her stent 4. Dyslipidemia ?Patient is on statin therapy, continued at home dose 5. New onset cardiac murmur ? Echo ordered for subsequent evaluation 6. Tobacco dependence ? Counseled on cessation, offered nicotine patch for tobacco cravings 7. DVT prophylaxis ? Bilateral SCDs 8. Recurrent UTI ? Patient is apparently being evaluated by urology as outpatient plan is for patient to resume care once discharged Charges/Coding Visit Charges Inpatient E&M: 71102 [facility] L2
[2025-02-21] MEDS: Metoprolol(XL)Succ 25 MG Tablet PO (09:28)
[2025-02-21] MEDS: Pantoprazole Sodium 40 MG in 0.9% Normal Saline (100mL MB+) 100 ML 330 MG IV ×2 (09:28→22:41)
[2025-02-21] MEDS: 0.9% Saline Lock 10 ML Syringe IV (09:28)
[2025-02-21] MEDS: Sodium Ferric Gluconat/Sucrose 250 MG in 0.9% Normal Saline (250mL Bag) 250 ML 135 MG IV (12:42)
--- NOTE | 2025-02-21 15:55 | PRE.ANES_ITS ---
ASA Classification* ASA Classification ASA Classification: 3 Assessment & Plan Anesthesia* Anesthesia Assessment Anesthesia Assessment: Discussed sedation and/or anesthesia options, risks, benefits, and alternatives with patient/parents/legal guardian/POA. Questions invited. The patient/parents/legal guardian/POA seems to understand and agrees to proceed with anesthesia plan. Reviewed the physical assessment, medical history, allergy history and patient home medications list prior to surgery/procedure/anesthetic and documented any changes. Performed airway and anesthesia risk assessments. Anesthesia Type Anesthesia Type: MAC History Source History Obtained from:: Patient and Chart Anesthesia Focused Assessment* Temperature: 98.0 F Pulse Rate: 72 Blood Pressure: 103/43 Respiratory Rate: 16 Pulse Ox: 98 Oxygen Delivery Method: Room Air Oxygen Flow Rate (L/min): 2 Airway Assessment Mouth opens: >3 cm Mallampati Score: III Teeth Condition: Intact Neck Range of motion (ROM): Full ROM Focused Labs Anesthesia Preop lab: CBC WBC 10.6 K/mm3 (4.4-11.0) 02/21/25 05:02/21/25 RBC 2.43 M/mm3 (4.2-5.4) L 02/21/25 05:30 02/21/25 Hgb 7.8 g/dL (12.0-15.0) L 02/21/25 05:02/21/25 Hct 23.9 % (37-47) L 02/21/25 05:30 02/21/25 Plt Count 199 K/mm3 (150-450) 02/21/25 05:30 02/21/25 CHEMISTRY Potassium 3.6 mmol/L (3.3-5.1) 02/21/25 05:30 02/21/25 Sodium 141 mmol/L (133-145) 02/21/25 05:30 02/21/25 Magnesium 2.2 mg/dL (1.5-2.2) 02/20/25 05:14 02/20/25 Phosphorus 4.2 mg/dL (2.7-4.5) 02/20/25 05:14 02/20/25 BUN 22 mg/dL (4-19) H 02/21/25 05:30 02/21/25 Creatinine 1.16 mg/dL (0.70-1.20) 02/21/25 05:30 02/21/25 Glucose 93 mg/dL (70-99) 02/21/25 05:30 02/21/25 POC Glucose 87 mg/dL (74-106) 02/19/25 11:48 02/19/25 TSH 3.970 uIU/mL (0.300-4.200) 02/06/25 09:33 01/22 04/17 COAG PT 12.9 SECONDS (11.7-14.9) 02/04/25 12:57 Pre-Assessment Diagnosis/Proposed Procedure Planned Operative Procedure(s): Colonoscopy. 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 When Was Last Pacemaker Check QUESTION #4 FULL TEXT: You/Your Family Experience fever (hyperthermia) with Anesthesia Last Oral Intake Last Oral intake: Last Oral Intake NPO since 03:00 02/20/25 14:09 Meds taken in AM with sips of Yes 02/20/25 14:09 water? Meds patient instructed to toprol xl taken at 1100 with 02/20/25 14:09 take am of surgery sip of water Any additional information?: Yes NPO since: 03:00 (Patient finished her prep at 3 AM.) Meds taken in AM with sips of water?: Yes PONV PONV - fluid jet cutter operator: PONV - fluid jet cutter operator Female HX of Motion Sickness HX of N/V After Surgery Non-Smoker Duration of Surgery greater than 60 minutes Number of Risk Factors PONV Score Height & Weight Height & Weight: Anesthesia: Height & Weight Height 5 ft 7 in 02/19/25 16:34 Weight: 70.62 kg 02/19/25 16:34 Body Mass Index (BMI) 24.3 02/20/25 14:09 Respiratory Assessment Respiratory Assessment - fluid jet cutter operator: Respiratory Tract Infection Hx - fluid jet cutter operator Hx Respiratory Tract Infection No 02/18/25 21:39 STOP Sleep Apnea STOP Sleep Apnea - fluid jet cutter operator: STOP Sleep Apnea - fluid jet cutter operator Hx Hypertension Yes 02/18/25 15:53 Hx Sleep Apnea Yes 02/18/25 15:53 CPAP Yes 02/19/25 14:41 BIPAP No 02/18/25 15:53 Do you snore loudly (louder than talking or can be heard Do you often feel tired/ fatigued/ sleepy during daytime? Has anyone observed you stop breathing during sleep? STOP Results Positive 02/20/25 15:41 QUESTION #5 FULL TEXT : Do you snore loudly (louder than talking or can be heard through closed doors)? 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 confused, unrespo /Reproduction History /Reproductive History - fluid jet cutter operator: /Reproductive Hx- fluid jet cutter operator Hx Now No 02/18/25 21:39 Gestational Age (in weeks): EDC: Hx Hx Para Hx Section SAB No 02/18/25 21:39 Active Medications Active Medications: Current Medications Generic Name Dose Route Start Last Admin Trade Name Freq PRN Reason Stop Dose Admin Albuterol Sulfate 2.5 mg 02/18/25 16:08 Albuterol 2.5 Mg/3 Ml Vial.Neb. INHALATION Q4H PRN Wheezing Ascorbic Acid 1,000 mg 02/19/25 10:00 02/21/25 09:13 Ascorbic Acid 500 Mg Tablet PO Not Given DAILY GABO Aspirin 81 mg 02/19/25 08:00 02/21/25 09:12 Aspirin E.C. 81 Mg Tablet PO Not Given DAILY@0800 GABO Atorvastatin Calcium 40 mg 02/18/25 22:00 02/20/25 22:01 Atorvastatin Calcium 40 Mg Tablet PO 40 mg QHS GABO Administration Sodium Chloride 100 mls @ 15 mls/hr 02/18/25 15:59 IV .Q6H40M PRN Saline Flush Sodium Chloride 100 mls @ 15 mls/hr 02/18/25 15:59 IV .Q6H40M PRN Additional IVPB Infusion Pantoprazole Sodium 40 mg/ 110 mls @ 330 mls/hr 02/18/25 22:00 02/21/25 10:46 Sodium Chloride IV Infused Q12 GABO Infusion Lactated Ringer's 1,000 mls @ 15 mls/hr 02/19/25 13:45 02/21/25 09:14 IV Infused .Q48H GABO Infusion Lactated Ringer's 1,000 mls @ 15 mls/hr 02/21/25 15:45 IV .Q48H GABO Lisinopril 2.5 mg 02/19/25 10:00 02/21/25 09:14 Lisinopril 2.5 Mg Tablet PO Not Given DAILY [facility] Protocol Metoprolol Succinate 25 mg 02/19/25 10:00 02/21/25 09:28 Metoprolol(Xl)Succ 25 Mg Tablet PO 25 mg DAILY [facility] Administration Protocol Nitroglycerin 0.4 mg 02/19/25 07:32 Nitroglycerin (Inpatient Use) 0.4 Mg Tab.Subl SL Q5M PRN CARDIAC/CHEST PAIN Ondansetron HCl 4 mg 02/18/25 16:06 Ondansetron Odt 4 Mg Tablet PO Q6H PRN PRN Nausea Polysaccharide Iron Complex 150 mg 02/21/25 15:00 Iron Polysaccharide Complex 150 Mg Capsule PO DAILY [facility] Sodium Chloride 10 - 40 ml 02/18/25 15:59 02/21/25 09:28 0.9% Saline Lock 10 Ml Syringe IV 10 ml UD PRN Administration SALINE FLUSH Ticagrelor 90 mg 02/18/25 22:00 02/21/25 09:13 Ticagrelor 90 Mg Tablet PO Not Given BID [facility] PFSH Medical History GERD (gastroesophageal reflux disease) Smoker CPAP (continuous positive airway pressure) dependence Non-ST elevation PA (NSTEMI) Hematuria UTI (urinary tract infection) Hyperlipidemia Atherosclerosis of coronary artery of [place] heart without angina pectoris Myocardial infarct Medical History no medical history Home Medications ?Medication ?Instructions ?Recorded ?Last Taken ?Type aspirin 81 mg tablet,delayed 81 mg PO DAILY@0800 heart health 10/11/24 02/18/25 Rx release 90 days #90 tabs atorvastatin 40 mg tablet 40 mg PO QHS cholesterol 90 days 10/26/24 02/17/25 Rx #90 tabs lisinopril 2.5 mg tablet 2.5 mg PO DAILY blood pressu re 90 10/26/24 02/04/25 Rx days #90 tabs metoprolol succinate 25 mg 25 mg PO DAILY heart 90 day s #90 10/26/24 02/21/25 Rx tablet,extended release 24 hr tabs (Toprol XL) ticagrelor 90 mg tablet (Brilinta) 90 mg PO BID blood thinner 90 days 10/26/24 02/18/25 Rx #180 tabs albuterol sulfate 90 mcg/actuation 2 puff inhalation Q 4H PRN PRN 02/06/25 Unknown Rx aerosol inhaler (Ventolin HFA) Wheezing ##1 ascorbate calcium (vitamin C) 500 1 g PO DAILY 5 02/05/25 History mg tablet cranberry [id number] 2 tab PO DAILY supplement 02/05/25 History coagulans 250 mg-30 mg-15 mg tablet (Azo Cranberry Plus Probiotic) ondansetron 4 mg disintegrating 4 mg PO Q6H PRN PRN Na usea #15 tabs 02/06/25 02/17/25 Rx tablet nitroglycerin 0.4 mg sublingual 0.4 mg sublingual Q5-1 5M PRN chest 02/07/25 Unknown Rx tablet pain #25 tabs Allergy/AdvReac Type Severity Reaction Status Date / Time Penicillins Allergy Hives Verified 02/20/25 14:48 Sulfa (Sulfonamide AdvReac Diarrhea Verified 02/20/25 14:48 Antibiotics) Family History Father CAD (coronary artery disease) CABG age 68; CVA (cerebral vascular accident) Myocardial infarction Mother Cancer Cervical, Melanoma, Colon Surgical History Status post cardiac surgery History of coronary artery stent placement History of carpal tunnel surgery of left wrist History of coronary artery stent placement (02/04/25) Surgical History no surgical history Social History household members: spouse housing: house Smoking Status: Current every day smoker tobacco type: cigarettes second hand exposure: No Review of Systems (Anesthesia) ROS Narrative System reviewed and no additional complaints, except as documented.
--- NOTE | 2025-02-21 16:30 | COLBX_PTH ---
PATIENT: MIGUEL MATHIAS LOC: MS3 U#:[id number] AGE/SX: 64/F ROOM: OR312 RE02/18/[address]: Dr. Josh Peñaloza MD : 1960 BED: 1 DIS: 02/22/2025 SPEC #: [id number] RECD: 02/22/25 10:08 STATUS: CALVIN REKarly #: [id number] EDITH: 02/21/25 16:[address]: Ra Linohsaan DEPT: SURGICAL PATHOLOGY RECD BY: Gama Moss ENTERED: 02/22/25 10:41 SP TYPE: COLON BX OTHR DR: MD Dr. Jakub Damon MD Dr. Scott Wilkins, Tissues: A - SPLENIC FLEXURE Procedures: Surgery Specimen Level IV Comments: @ Ordering doctor for SUIV edited from to @ lobito RON at 02/22/25 1041 @ Submitting doctor edited from to @ by ARIADNE at 02/22/25 1041 HEADER OPERATION: Colonoscopy with biopsy and clip applied PRE-OP DIAGNOSIS: Acute GI bleeding TISSUE SUBMITTED: A- Splenic flexure polyp biopsy MICROSCOPIC DIAGNOSIS A. Colon, splenic flexure, polyp, biopsy: * Tubular adenoma. MICROSCOPIC DESCRIPTION Slides are reviewed. GROSS DESCRIPTION A. Received in formalin in a container labeled with the patient's name, date of , and splenic flexure polyp biopsy are 2 peña-pink fragments of mucosal tissue each measuring 0.3 x 0.3 x 0.2 cm. Submitted in toto in A1. [facility] 02-22-2025 CPT:31422
--- NOTE | 2025-02-21 17:12 | OP.COLON_ITS ---
Patient Name: Mily Long Procedure Date: 02/21/2025 4:13 PM Date of : 1960 Age: 64 Procedure: Colonoscopy Indications: Hematochezia, Iron deficiency anemia Providers: Ivan Huynh DO Referring MD: Jakub Fischer Medicines: Monitored Anesthesia Care Patient Profile: This is a 64 year old female. Refer to note in patient chart for documentation of history and physical. Last Colonoscopy: date unknown. Unable to locate last colonoscopy report. Complications: No immediate complications. Procedure: Pre-Anesthesia Assessment: - Prior to the procedure, a History and Physical was performed, and patient medications and allergies were reviewed. The patient is competent. The risks and benefits of the procedure and the sedation options and risks were discussed with the patient. All questions were answered and informed consent was obtained. Patient identification and proposed procedure were verified by the physician in the pre-procedure area. Mental Status Examination: alert and oriented. Airway Examination: normal oropharyngeal airway and neck mobility. Respiratory Examination: clear to auscultation. CV Examination: normal. Prophylactic Antibiotics: The patient does not require prophylactic antibiotics. Prior Anticoagulants: The patient has taken no anticoagulant or antiplatelet agents except for NSAID medication. ASA Grade Assessment: II - A patient with mild systemic disease. After reviewing the risks and benefits, the patient was deemed in satisfactory condition to undergo the procedure. The anesthesia plan was to use monitored anesthesia care (MAC). Immediately prior to administration of medications, the patient was re-assessed for adequacy to receive sedatives. The heart rate, respiratory rate, oxygen saturations, blood pressure, adequacy of pulmonary ventilation, and response to care were monitored throughout the procedure. The physical status of the patient was re-assessed after the procedure. After I obtained informed consent, the scope was passed under direct vision. Throughout the procedure, the patient's blood pressure, pulse, and oxygen saturations were monitored continuously. The colonoscope was introduced through the anus and advanced to the terminal ileum. The colonoscopy was performed without difficulty. The patient tolerated the procedure well. The quality of the bowel preparation was adequate. The terminal ileum, ileocecal valve, appendiceal orifice, and rectum were photographed. Scope In: 4:31:05 PM Scope Withdrawal Time 0 hours 17 minutes 36 seconds Scope Out: 4:59:52 PM Total Procedure Duration Time 0 hours 28 minutes 47 seconds Findings: The perianal and digital rectal examinations were normal. Multiple small and large-mouthed diverticula were found in the recto-sigmoid colon and sigmoid colon. A 5 mm polyp was found in the splenic flexure. The polyp was sessile. The polyp was removed with a jumbo cold forceps. Resection and retrieval were complete. Verification of patient identification for the specimen was done. Estimated blood loss was minimal. The terminal ileum appeared normal. Non-bleeding internal hemorrhoids were found during retroflexion. The hemorrhoids were medium-sized and Grade II (internal hemorrhoids that prolapse but reduce spontaneously). The exam was otherwise without abnormality on direct and retroflexion views. A single large localized angiodysplastic lesion with bleeding was found in the descending colon. For hemostasis, one hemostatic clip was successfully placed. 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 There was no bleeding at the end of the procedure. A 4 mm anal fissure was found in the anal canal. Impression: - Diverticulosis in the recto-sigmoid colon and in the sigmoid colon. - One 5 mm polyp at the splenic flexure, removed with a jumbo cold forceps. Resected and retrieved. - The examined portion of the ileum was normal. - Non-bleeding internal hemorrhoids. - The examination was otherwise normal on direct and retroflexion views. Recommendation: - [facility]. - Advance diet as tolerated. - Continue present medications. - Await pathology results. - Repeat colonoscopy in 5 years for surveillance. Procedure Code(s): --- Professional --- 06476, 59, Colonoscopy, flexible; with control of bleeding, any method 76220, Colonoscopy, flexible; with biopsy, single or multiple CPT copyright 2021 [employer]. All rights reserved. The codes documented in this report are preliminary and upon nail tech review may be revised to meet current compliance requirements. Ivan Huynh DO 02/21/2025 5:12:27 PM This report has been signed electronically. Number of Addenda: 0 Note Initiated On: 02/21/2025 4:13 PM
--- NOTE | 2025-02-21 17:13 | PCM.POST.ANE ---
Anesthesia: Postop Eval I Current Vital Signs Temperature: 97.4 F Pulse Rate: 79 Blood Pressure: 95/51 Respiratory Rate: 16 Pulse Ox: 100 Oxygen Delivery Method: Room Air Assessment Airway patent: Yes Spontaneous unlabored respirations: Yes Mental status: Asleep (Arousable) nausea: No Vomiting: No Anesthesia Complication: No Fluid Hydration Crystalloid volume administer (ml): 600 Total IV fluid infused: 600 Progress Note Anesthesia document: Postop Eval 1 completed: Yes
--- NOTE | 2025-02-21 17:13 | OP.CCLET_ITS ---
02/21/2025 Florin Bailey Do Re : Colonoscopy procedure for Mily Long Dear Dr. Bailey This procedure was performed on February. My impressions and recommendations are as follows: Impressions : - Diverticulosis in the recto-sigmoid colon and in the sigmoid colon. - One 5 mm polyp at the splenic flexure, removed with a jumbo cold forceps. Resected and retrieved. - The examined portion of the ileum was normal. - Non-bleeding internal hemorrhoids. - The examination was otherwise normal on direct and retroflexion views. Recommendations : - [facility]. - Advance diet as tolerated. - Continue present medications. - Await pathology results. - Repeat colonoscopy in 5 years for surveillance. My findings are described in the full procedure note, which is enclosed. If I can be of further assistance, please feel free to contact me at . Sincerely, Ivan Huynh, 02/21/2025 5:12:27 PM This report has been signed electronically.
[2025-02-21] MEDS: Iron Polysaccharide Complex 150 MG CAPSULE PO (17:53)
[2025-02-21] MEDS: Atorvastatin Calcium 40 MG Tablet PO (22:41)
[2025-02-21] MEDS: TICAGRELOR 90 MG TABLET PO (22:41)
[2025-02-21] MEDS: Ondansetron ODT 4 MG Tablet PO (22:44)
[2025-02-22 05:33] VITALS: BP 106/57; PULSE 84; RESP 16; TEMP 36.8; O2SAT 96
[2025-02-22 07:20] LABS: Absolute Lymphocyte Count 1.33 X10^3/uL (0.83-4.51); Absolute Neutrophil Count 10.6 X10^3/uL (2.0-7.7); Basophil# 0.04 X10^3/uL; Basophil% 0.3 % (0-1); Eosinophil# 0.05 X10^3/uL; Eosinophils% 0.4 % (0-5); Hematocrit 23.9 % (37-47); Hemoglobin 7.7 g/dL (12.0-15.0); Lymphocyte # 1.33 X10^3/ul (0.83-4.51); Lymphocyte % 10.6 % (19-41); Mean Corp Hgb Conc 32.2 g/dL (32-36); Mean Corpuscular Volume 99.2 fL (81-99); Mean Platelet Vol. 10.5 fl (6.2-12.0); NRBC Flagged by Analyzer 0 % (0-5); Neutrophil # 10.55 X10^3/uL (2.7-7.7); Neutrophil % 84.2 % (47-70); Platelet Count 161 K/mm3 (150-450); RBC Distribution Width SD 57.8 fl (35.1-43.9); Red Blood Count 2.41 M/mm3 (4.2-5.4); White Blood Count 12.5 K/mm3 (4.4-11.0)
[2025-02-22 07:49] LABS: Anion Gap 11 (5-15); BUN 19 mg/dL (4-19); BUN/Creat Ratio 16.7 RATIO (10-20); Calcium,Total 8.5 mg/dL (7.6-11.0); Carbon Dioxide 20.4 mmol/L (21.0-32.0); Chloride 109 mmol/L (98-108); Creatinine, Serum 1.14 mg/dL (0.70-1.20); EST Glomerular Filtration Rate 53 (>60); Estimated Creatinine Clearance 47.21 ml/min (50-250); Glucose 96 mg/dL (70-99); Potassium 3.6 mmol/L (3.3-5.1); Sodium Level 140 mmol/L (133-145)
[2025-02-22 08:02] VITALS: BP 97/47; PULSE 86; RESP 18; TEMP 37.1; O2SAT 96
[2025-02-22] MEDS: TICAGRELOR 90 MG TABLET PO (08:08)
[2025-02-22] MEDS: Ascorbic Acid 500 MG Tablet 1000 MG PO (08:08)
[2025-02-22] MEDS: Iron Polysaccharide Complex 150 MG CAPSULE PO (08:08)
[2025-02-22] MEDS: Aspirin E.C. 81 MG Tablet PO (08:08)
[2025-02-22 08:09] VITALS: PULSE 86
[2025-02-22] MEDS: Metoprolol(XL)Succ 25 MG Tablet PO (08:09)
--- NOTE | 2025-02-22 08:13 | DS.PCM_ITS ---
Providers Date of Admission: 02/18/25 Date of Discharge: 02/22/25 Primary Care Physician: Dr. Florin Bailey, DO Consultations 02/18/25 16:06 Consult: Gastroenterology Routine Consulting Provider: Ivan Huynh Reason for Consult: GI bleed EMERGENT Consult: No MD Notified: Yes Date Notified: 02/18/25 Time Notified: 16:09 Method of Notification: Text Reason For Visit: GI BLEED Diagnosis Discharge Diagnosis (1) Acute GI bleeding: Status: Acute Code(s): K92.2 - Gastrointestinal hemorrhage, unspecified Plan Patient is a 64-year-old lady with history of coronary artery disease with recent stent placement on dual antiplatelet therapy who was sent from her PCPs office with low hemoglobin with concerns for GI bleed. Patient had apparently been experiencing melena for almost a week 1. Upper GI bleed ? Suspected to be secondary to peptic ulcer disease exacerbated by the use of dual antiplatelet therapy. Patient had apparently been experiencing melena. Admitted to regular nursing floor started on Protonix consult placed to GI plans for patient to undergo upper endoscopy by Dr. Huynh. 02/20/2025; EGD performed the day prior results as below. - LA Grade A erosive esophagitis with no bleeding. - Medium-sized hiatal hernia. - No gross lesions in the entire examined duodenum. - No specimens collected. ? Plan is for patient to complete evaluation with a colonoscopy. ? 02/21/2025;Patient is scheduled to undergo repeat colonoscopy. Preparation for colonoscopy the day prior was reported to be poor. ?02/22/2025; colonoscopy performed on 02/21/2025 findings and recommendations as below - Diverticulosis in the recto-sigmoid colon and in the sigmoid colon. - One 5 mm polyp at the splenic flexure, removed with a jumbo cold forceps. Resected and retrieved. - The examined portion of the ileum was normal. - Non-bleeding internal hemorrhoids. - The examination was otherwise normal on direct and retroflexion views. Recommendations : - [facility]. - Advance diet as tolerated. - Continue present medications. - Await pathology results. - Repeat colonoscopy in 5 years for surveillance. 2. Anemia ? Secondary to acute blood loss anemia. Hemoglobin on admission 9.1 down to 8.8 as of 02/19/2025. Will continue with Q8 H&H monitoring with plans to transfuse if patient is deemed to be symptomatic or hemoglobin falls below 7. ? 02/20/2025; hemoglobin down to 8.7 we will continue with monitoring ? 02/21/2025;Hemoglobin down to 7.8.. An order was given to the patient to receive iron infusion 3. Coronary artery disease ? With recent STEMI patient underwent PCI to her proximal LAD lesion on 10/10/2024 and 2 circumflex on 02/05/2025. Patient is on dual antiplatelet therapy continued given her recent stent placement to prevent thrombosis of her stent 4. Dyslipidemia ?Patient is on statin therapy, continued at home dose 5. New onset cardiac murmur ? Echo ordered for subsequent evaluation ? 2D echo did showThe estimated ejection fraction is 65 %. No evidence for diastolic dysfunction. Moderate (2+) mitral valve insufficiency. 6. Tobacco dependence ? Counseled on cessation, offered nicotine patch for tobacco cravings 7. DVT prophylaxis ? Bilateral SCDs 8. Recurrent UTI ? Patient is apparently being evaluated by urology as outpatient plan is for patient to resume care once discharged Medications at Discharge Home Medications aspirin 81 mg tablet,delayed release 81 mg PO DAILY@0800 heart health 90 days #90 tabs 10/11/24 atorvastatin 40 mg tablet 40 mg PO QHS cholesterol 90 days #90 tabs 10/26/24 lisinopril 2.5 mg tablet 2.5 mg PO DAILY blood pressure 90 days #90 tabs 10/26/24 metoprolol succinate 25 mg tablet,extended release 24 hr (Toprol XL) 25 mg PO DAILY heart 90 days #90 tabs 10/26/24 ticagrelor 90 mg tablet (Brilinta) 90 mg PO BID blood thinner 90 days #180 tabs 10/26/24 albuterol sulfate 90 mcg/actuation aerosol inhaler (Ventolin HFA) 2 puff inhalation Q4H PRN PRN Wheezing ##1 02/06/25 ascorbate calcium (vitamin C) 500 mg tablet 1 g PO DAILY 02/06/25 cranberry [id number] coagulans 250 mg-30 mg-15 mg tablet (Azo Cranberry Plus Probiotic) 2 tab PO DAILY supplement 02/06/25 ondansetron 4 mg disintegrating tablet 4 mg PO Q6H PRN PRN Nausea #15 tabs 02/06/25 nitroglycerin 0.4 mg sublingual tablet 0.4 mg sublingual Q5-15M PRN chest pain #25 tabs 02/07/25 pantoprazole 40 mg tablet,delayed release (Protonix) 40 mg PO DAILY #90 tabs 02/22/25 polysaccharide iron complex 150 mg iron capsule (Ferrex) 150 mg PO DAILY 90 days #90 caps 02/22/25 Hospital Course Summary of Care Provided Minutes Spent on Discharge: 32 Physical Exam Narrative GENERAL: cooperative HEENT: Atraumatic; normocephalic EYES; Anicteric, Normal Conjunctiva NECK; supple, normal thyroid, RESPIRATORY: Diminished to auscultation CARDIOVASCULAR: Regular S1 S2, GI: soft, normoactive bowel sounds, : No Renal angle tenderness; EXTREMITIES: No edema, no clubbing, MUSCULOSKELETAL: no muscle wasting NEURO: Awake; no lateralizing signs. SKIN: No Rash PSYCH; Flat affect Weight / BMI Weight Weight: 70.62 kg Body Mass Index (BMI) 24.3 ABG / Lab / Microbiology Data 02/22/25 06:30 02/22/25 06:30 Laboratory: Laboratory Results - last 24 hr 02/22/25 06:30: WBC 12.5 H, RBC 2.41 L, Hgb 7.7 L, Hct 23.9 L, MCV 99.2 H, MCH 32.0, MCHC 32.2, RDW Std Deviation 57.8 H, RDW Coeff of Gerber 16.0 H, Plt Count 161, MPV 10.5, Immature Gran % (Auto) 0.500, Neut % (Auto) 84.2 H, Lymph % (Auto) 10.6 L, [place] % (Auto) 4.0, Eos % (Auto) 0.4, Baso % (Auto) 0.3, Absolute Neuts (auto) 10.6 H, Absolute Lymphs (auto) 1.33, Nucleated RBC % 0, Sodium 140, Potassium 3.6, Chloride 109 H, Carbon Dioxide 20.4 L, Anion Gap 11, BUN 19, Creatinine 1.14, Estim Creat Clear Calc 47.21 L, Est GFR (MDRD) Non-Af 53 L, BUN/Creatinine Ratio 16.7, Glucose 96, Calcium 8.5 D/C Instructions Discharge Diet: Low fat / Low cholesterol Discharge Activity: Return to Normal Activity Call your doctor if you observe: Fever of 101 or Higher, Shortness of breath, Fainting spells and Chest pain DC O2, CPAP, BIPAP Needs Home O2 Discharge instructions: No Meaningful Use Info Meaningful Use Meaningful Use Diagnoses (Choose all that apply): None applicable Ischemic Stroke Statin Dosing Therapy Reference: STATIN DOSE THERAPY REFERENCE: * Patients > 75 years receive moderate or high dose statin therapy. * Patients 75 years or YOUNGER should receive HIGH intensity statin dose unless contraindicated. You will be required to document reason for non-treatment if statin daily dose does not meet guidelines. HIGH DOSE STATIN THERAPY DAILY Atorvastatin > than or = to 40 mg Rosuvastatin > than or = to 20 mg Amlodipine + Atorvastatin > than or = to 2.5/40 mg Ezetimibe + Simvastatin 10/80 mg Simvastatin 80mg Discharge Plan Admission Admit Date/Time: 02/18/25 14:05 Attending Provider: Josh Peñaloza Primary Care Provider: Florin Bailey Consulting Providers: Ivan Huynh; Jakub Fischer Discharge Orders/Prescriptions Prescriptions: New polysaccharide iron complex [Ferrex 150] 150 mg iron Capsule 150 mg PO DAILY 90 Days Qty: 90 0RF pantoprazole [Protonix] 40 mg tablet,delayed release (DR/EC) 40 mg PO DAILY Qty: 90 0RF Continued lisinopril 2.5 mg tablet 2.5 mg PO DAILY 90 Days Qty: 90 3RF Patient Comments: pt told yesterday if BP is less than 99, not to take med. pt has not taken since 02/04/25 metoprolol succinate [Toprol XL] 25 mg tablet extended release 24 hr 25 mg PO DAILY 90 Days Qty: 90 3RF Brilinta 90 mg tablet 90 mg PO BID 90 Days Qty: 180 3RF atorvastatin 40 mg tablet 40 mg PO QHS 90 Days Qty: 90 3RF nitroglycerin 0.4 mg tablet, sublingual 0.4 mg sublingual Q5-15M PRN (Reason: chest pain) Qty: 25 3RF Rx Instructions: do not exceed 3 doses per episode aspirin 81 mg Tablet,Delayed Release (Dr/Ec) 81 mg PO DAILY@0800 90 Days Qty: 90 3RF ascorbate calcium (vitamin C) 500 mg tablet 1 g PO DAILY Azo Cranberry Plus Probiotic 250-30-15 mg tablet 2 tab PO DAILY albuterol sulfate [Ventolin HFA] 90 mcg/actuation HFA aerosol inhaler 2 puff inhalation Q4H PRN PRN (Reason: Wheezing) Qty: 1 0RF Rx Instructions: with spacer ondansetron 4 mg tablet,disintegrating 4 mg PO Q6H PRN PRN (Reason: Nausea) Qty: 15 0RF Referrals / Follow Up: Florin Bailey DO [Primary Care Provider] - Within 2 Weeks Disposition Disposition (needs filled in before D/C Order can be placed): Home, Self Care Charges/Coding Visit Charges Inpatient E&M: 35571 Disch Hosp >30min
--- NOTE | 2025-02-22 10:08 | PHA.DC.MC.R ---
Pharmacy [facility] has performed discharge medication reconciliation and counseling for this patient. The patient's discharge medication list was reviewed for discrepancies and discrepancies were resolved. The patient was counseled on the following discharge medications and changes in medications for homegoing were reviewed. The Reason for Use, instructions for use, and potential side effects were reviewed for all new medications. The patient's questions regarding all of their medications were answered. 1. Pantoprazole 40 mg PO daily 2. Ferrex 150 mg PO daily The patient was able to verbally demonstrate an understanding of their discharge medications. Medications at Discharge Home Medications aspirin 81 mg tablet,delayed release 81 mg PO DAILY@0800 heart health 90 days #90 tabs 10/11/24 atorvastatin 40 mg tablet 40 mg PO QHS cholesterol 90 days #90 tabs 10/26/24 lisinopril 2.5 mg tablet 2.5 mg PO DAILY blood pressure 90 days #90 tabs 10/26/24 metoprolol succinate 25 mg tablet,extended release 24 hr (Toprol XL) 25 mg PO DAILY heart 90 days #90 tabs 10/26/24 ticagrelor 90 mg tablet (Brilinta) 90 mg PO BID blood thinner 90 days #180 tabs 10/26/24 albuterol sulfate 90 mcg/actuation aerosol inhaler (Ventolin HFA) 2 puff inhalation Q4H PRN PRN Wheezing ##1 02/06/25 ascorbate calcium (vitamin C) 500 mg tablet 1 g PO DAILY 02/06/25 cranberry sbbe-G-mvgnhvhg coagulans 250 mg-30 mg-15 mg tablet (Azo Cranberry Plus Probiotic) 2 tab PO DAILY supplement 02/06/25 ondansetron 4 mg disintegrating tablet 4 mg PO Q6H PRN PRN Nausea #15 tabs 02/06/25 nitroglycerin 0.4 mg sublingual tablet 0.4 mg sublingual Q5-15M PRN chest pain #25 tabs 02/07/25 pantoprazole 40 mg tablet,delayed release (Protonix) 40 mg PO DAILY #90 tabs 02/22/25 polysaccharide iron complex 150 mg iron capsule (Ferrex) 150 mg PO DAILY 90 days #90 caps 02/22/25
== END 2025-02-22 11:51 | disposition home or self-care (01) | DRG 378 ==
LOC: ED 14:12 → MS3 15:34
PROVIDERS: Internal Medicine Gastroenterology; Physician Assistant; Admitting Provider Family Medicine; Emergency Provider Emergency Medicine; Referring Provider Family Medicine; Visit Provider Internal Medicine
PROC: 0DJ08ZZ Inspection of Upper Intestinal Tract, Via Natural or Artificial Opening Endoscopic (ICD-10-PCS; CPT 43235; principal; 2025-02-19 13:40)
PROC: 0DJD8ZZ Inspection of Lower Intestinal Tract, Via Natural or Artificial Opening Endoscopic (ICD-10-PCS; CPT 45378; principal; 2025-02-20 15:55)
DX: K55.21 Angiodysplasia of colon with hemorrhage (principal); K22.10 Ulcer of esophagus without bleeding; D62 Acute posthemorrhagic anemia; D68.32 Hemorrhagic disorder due to extrinsic circulating anticoagulants; N39.0 Urinary tract infection, site not specified; I34.0 Nonrheumatic mitral (valve) insufficiency; K57.30 Diverticulosis of large intestine without perforation or abscess without bleeding; F17.210 Nicotine dependence, cigarettes, uncomplicated; D12.3 Benign neoplasm of transverse colon; K21.00 Gastro-esophageal reflux disease with esophagitis, without bleeding; E78.5 Hyperlipidemia, unspecified; I25.2 Old myocardial infarction; I25.10 Atherosclerotic heart disease of native coronary artery without angina pectoris; K64.1 Second degree hemorrhoids; K44.9 Diaphragmatic hernia without obstruction or gangrene; K60.2 Anal fissure, unspecified; R01.1 Cardiac murmur, unspecified; T45.525A Adverse effect of antithrombotic drugs, initial encounter; Z95.5 Presence of coronary angioplasty implant and graft; Z79.02 Long term (current) use of antithrombotics/antiplatelets; Z79.82 Long term (current) use of aspirin; Z79.899 Other long term (current) drug therapy
CPT/HCPCS: 36415; 80048; 82962; 83735; 84100; 85014; 85018; 85025; 88305; 93005; 93306; 97802; 99284; 99406; Q9957; A4216; J2405; J2916

== ENCOUNTER 2025-02-22 08:06 | Outpatient (RCR) | payer MEDICARE, SELFPAY ==
[2025-02-12 10:43] VITALS: BMI 24.7
--- NOTE | 2025-03-13 09:14 | PCM.CR.ITP ---
Psychosocial - Initial Assess Target Goals Target Goals Nutrition Survey Nutrition Survey Instructions Scoring Instructions Psychosocial - 30-Day Assess Target Goals Target Goals Psychosocial - 60-Day Assess Target Goals Target Goals Psychosocial - 90-Day Assess Target Goals Target Goals Psychosocial - Final Assessmen Target Goals Target Goals
== END 2025-03-23 23:59 ==
LOC: CR 08:06
PROVIDERS: Referring Provider Specialist; Visit Provider Specialist
DX: I21.4 Non-ST elevation (NSTEMI) myocardial infarction (principal); Z95.5 Presence of coronary angioplasty implant and graft
CPT/HCPCS: 93798

== ENCOUNTER 2025-02-28 02:06 | Emergency (ER) | payer MEDICARE, SELFPAY ==
[2025-02-12 10:43] VITALS: BMI 24.7
[2025-02-28 02:08] VITALS: BP 147/65; PULSE 102; RESP 25; TEMP 36.4; O2SAT 99; BMI 26.2
--- NOTE | 2025-02-28 02:25 | EKG12_ITS ---
Test Reason : CP Blood Pressure : */* mmHG Vent. Rate : 105 BPM Atrial Rate : 105 BPM P-R Int : 122 ms QRS Dur : 62 ms QT Int : 322 ms P-R-T Axes : 78 73 58 degrees QTcB Int : [address] & T wave abnormality, consider lateral ischemia Abnormal ECG Baseline artifact may adversly effect reading Confirmed by Jorge Leavitt ([id number]), general expeditor LISETTE PINEDA ([id number]) on 03/01/2025 12:51:25 PM Referred By: Confirmed By: Jorge Leavitt
[2025-02-28 02:27] VITALS: O2SAT 97
--- NOTE | 2025-02-28 02:27 | EDS_ITS ---
HPI History of Present Illness Chief Complaint: Palpitations Informant: patient and spouse/S.O. Narrative Narrative: 64-year-old female states she woke up in the middle of the night short of breath and her heart racing, both at the same time. No chest discomfort. [place] lightheaded but did not lose consciousness. She felt a little sweaty. She states it lasted 15 or 20 minutes and then gradually resolved and now she feels better except for feeling tired and weak. She had a stent placed at the end of last year and then another 1 placed a month ago. She continues to smoke. Denies any recent illness. [facility] Medical History GERD (gastroesophageal reflux disease) Smoker CPAP (continuous positive airway pressure) dependence Non-ST elevation ID (NSTEMI) Hematuria UTI (urinary tract infection) Hyperlipidemia Atherosclerosis of coronary artery of [place] heart without angina pectoris Myocardial infarct Home Medications ?Medication ?Instructions ?Recorded ?Last Taken ?Type aspirin 81 mg tablet,delayed 81 mg PO DAILY@0800 heart [facility] 10/11/24 02/18/25 Rx release 90 days #90 tabs atorvastatin 40 mg tablet 40 mg PO QHS cholesterol 90 days 10/26/24 02/17/25 Rx #90 tabs lisinopril 2.5 mg tablet 2.5 mg PO DAILY blood pressu re 90 10/26/24 02/04/25 Rx days #90 tabs metoprolol succinate 25 mg 25 mg PO DAILY heart 90 day s #90 10/26/24 02/21/25 Rx tablet,extended release 24 hr tabs (Toprol XL) ticagrelor 90 mg tablet (Brilinta) 90 mg PO BID blood thinner 90 days 10/26/24 02/18/25 Rx #180 tabs albuterol sulfate 90 mcg/actuation 2 puff inhalation Q 4H PRN PRN 02/06/25 Unknown Rx aerosol inhaler (Ventolin HFA) Wheezing ##1 ascorbate calcium (vitamin C) 500 1 g PO DAILY 5 02/05/25 History mg tablet cranberry qgik-M-alqnnqil 2 tab PO DAILY supplement 02/05/25 History coagulans 250 mg-30 mg-15 mg tablet (Azo Cranberry Plus Probiotic) ondansetron 4 mg disintegrating 4 mg PO Q6H PRN PRN Na usea #15 tabs 02/06/25 02/17/25 Rx tablet nitroglycerin 0.4 mg sublingual 0.4 mg sublingual Q5-1 5M PRN chest 02/07/25 Unknown Rx tablet pain #25 tabs pantoprazole 40 mg tablet,delayed 40 mg PO DAILY #90 t abs 02/22/25 Unknown Rx release (Protonix) polysaccharide iron complex 150 mg 150 mg PO DAILY 90 days #90 caps 02/22/25 Unknown Rx iron capsule (Ferrex) Allergy/AdvReac Type Severity Reaction Status Date / Time Penicillins Allergy Hives Verified 02/28/25 02:07 Sulfa (Sulfonamide AdvReac Diarrhea Verified 02/28/25 02:07 Antibiotics) Family History Father CAD (coronary artery disease) CABG age 68; CVA (cerebral vascular accident) Myocardial infarction Mother Cancer Cervical, Melanoma, Colon Surgical History Status post cardiac surgery History of coronary artery stent placement History of carpal tunnel surgery of left wrist History of coronary artery stent placement (02/04/25) Social History household members: spouse housing: house Smoking Status: Current every day smoker tobacco type: cigarettes second hand exposure: No ROS ROS ED Constitutional Constitutional ED: Reports fatigue and sweats; Denies chills or fever(s) Eyes Eyes: Denies change in vision or diplopia ENT ENT ED: Denies rhinorrhea or sore throat Cardiovascular Cardiovascular: Reports lightheadedness and palpitations; Denies chest pain, radiating jaw, neck or arm pain or syncope Respiratory/Chest Respiratory/Chest: Reports dyspnea; Denies cough Gastrointestinal Gastrointestinal: Denies abdominal pain, diarrhea, nausea or vomiting Genitourinary Genitourinary ED: Denies dysuria or hematuria Musculoskeletal Musculoskeletal: Denies back pain or neck pain Integumentary Denies abscess or rash Neurologic Neurologic: Denies headache(s), paresthesias or weakness Psychiatric Psychiatric: Denies anxiety or suicidal thoughts EXAM Physical Exam Const Vital Signs: 02/28/25 02:08 02/28/25 02:08 02/28/25 02:27 Temperature 97.6 F L Temperature Source Oral Pulse Rate 102 H Respiratory Rate 25 H Respiratory Effort Normal Blood Pressure 147/65 H Blood Pressure Mean 92 Pulse Ox 99 97 Oxygen Delivery Method Room Air Room Air 02/28/25 03:07 02/28/25 04:00 02/28/25 05:00 Temperature Temperature Source Pulse Rate 80 92 85 Respiratory Rate 14 16 20 H Respiratory Effort Blood Pressure 116/51 L 117/62 105/54 L Blood Pressure Mean 72 80 71 Pulse Ox 97 98 96 Oxygen Delivery Method Room Air Room Air Room Air Positive well nourished and well developed General Appearance ED: well developed and NAD HEENT Reports moist mucous membranes normocephalic and atraumatic Eyes PERRL and EOMs intact bilaterally Neck full ROM and supple Resp normal respiratory effort and clear to auscultation bilaterally Cardio regular rate, regular rhythm and no murmurs GI non-tender and non-distended Auscultation: normoactive bowel sounds Palpation: soft Back/Spine no CVA tenderness General Back: other FROM Extremity normal to inspection General Extremety ED: Negative for edema, pulses abnormal or tenderness General Extremity: Negative for edema or pulses abnormal Neuro oriented x3, CN's II-XII intact bilaterally and no sensory deficits noted Sensorium / Orientation: awake and alert Motor Exam: strength 5/5 throughout Skin no rashes or lesions noted and no wounds MDM MDM MDM Narrative Medical decision making narrative: On initial evaluation patient is no longer symptomatic, her EKG is normal. Her initial troponin is just barely out of the normal range at 26, the rest of her labs are only remarkable for anemia at 7.4. She is not having any signs of blood loss and I do not think she needs an emergent transfusion but this will need to be watched carefully as I discussed with her. Chest x-ray 1 view on my interpretation is unremarkable/normal. While she was being observed and we were waiting to draw the second troponin, she had another relatively short period of the same symptoms again while she was on the monitor. There were no telemetry events or ectopy or dysrhythmias or tachycardia. She was in the 80s the whole time and went back and reviewed the telemetry data. Patient was talking to the emergency medical technician/driver telling her that she had the symptoms while she was prepping to do an EKG and while she was on the monitor she was sinus rhythm in the 80s. Her second troponin came back at 27 for a delta of 1, this is negligible and she is stable for discharge and feeling better with no recurrent symptoms despite walking to and from the bathroom on her own, and she states she is following up later today for an already-scheduled Holter monitor from cardiology which I advised her to continue to follow-up with. Lab Data Attestation: I reviewed the patient's lab results. Labs: Laboratory Results - last 24 hr 02/28/25 02/28/25 02:15 04:24 WBC 11.1 H RBC 2.29 L Hgb 7.4 L Hct 23.4 L MCV 102.2 H MCH 32.3 H MCHC 31.6 L RDW Std Deviation 64.8 H RDW Coeff of Gerber 18.0 H Plt Count 199 MPV 10.2 Immature Gran % (Auto) 0.700 Neut % (Auto) 60.8 Lymph % (Auto) 28.0 [place] % (Auto) 6.2 Eos % (Auto) 3.6 Baso % (Auto) 0.7 Absolute Neuts (auto) 6.7 Absolute Lymphs (auto) 3.11 Nucleated RBC % 0 Sodium 140 Potassium 4.9 Chloride 107 Carbon Dioxide 22.6 Anion Gap 11 BUN 30 H Creatinine 1.09 Estim Creat Clear Calc 53.96 Est GFR (MDRD) Non-Af 56 L BUN/Creatinine Ratio 27.2 H Glucose 110 H Calcium 9.2 Troponin T High Sens 26 H D Troponin T Hi Sens 2 Hr 27 H Radiography Diagnostic Testing: Clinical Impression(s) from Imaging Studies Chest X-Ray 02/28/25 02:35 IMPRESSION: No evidence of acute disease. Reading Location: [id number] Rhythm Strip Rhythm Strip: Sinus Rhythm Rate: 90 (During evaluation, after EKG) Ectopy: None EKG Initial EKG: Attestation: I personally reviewed and interpreted this EKG as follows: Interpretation: No Acute Injury Pattern and Sinus Tachycardia Comments: Nml axis & intervals; nml EKG; some artifact in lat precord leads, but no repolarization abnormality Discharge Plan Triage Chief Complaint: Palpitations ED Provider: Orlando Abdi Dx/Rx/DC Orders Clinical Impression: Palpitations Instructions: ED Palpitations Prescriptions: No Action lisinopril 2.5 mg tablet 2.5 mg PO DAILY 90 Days Qty: 90 3RF Patient Comments: pt told yesterday if BP is less than 99, not to take med. pt has not taken since 02/04/25 metoprolol succinate [Toprol XL] 25 mg tablet extended release 24 hr 25 mg PO DAILY 90 Days Qty: 90 3RF Brilinta 90 mg tablet 90 mg PO BID 90 Days Qty: 180 3RF atorvastatin 40 mg tablet 40 mg PO QHS 90 Days Qty: 90 3RF nitroglycerin 0.4 mg tablet, sublingual 0.4 mg sublingual Q5-15M PRN (Reason: chest pain) Qty: 25 3RF Rx Instructions: do not exceed 3 doses per episode aspirin 81 mg Tablet,Delayed Release (Dr/Ec) 81 mg PO DAILY@0800 90 Days Qty: 90 3RF ascorbate calcium (vitamin C) 500 mg tablet 1 g PO DAILY Azo Cranberry Plus Probiotic 250-30-15 mg tablet 2 tab PO DAILY albuterol sulfate [Ventolin HFA] 90 mcg/actuation HFA aerosol inhaler 2 puff inhalation Q4H PRN PRN (Reason: Wheezing) Qty: 1 0RF Rx Instructions: with spacer ondansetron 4 mg tablet,disintegrating 4 mg PO Q6H PRN PRN (Reason: Nausea) Qty: 15 0RF polysaccharide iron complex [Ferrex 150] 150 mg iron Capsule 150 mg PO DAILY 90 Days Qty: 90 0RF pantoprazole [Protonix] 40 mg tablet,delayed release (DR/EC) 40 mg PO DAILY Qty: 90 0RF Primary Care Provider: Florin Bailey Referrals: Jorge Leavitt MD [Med Staff - Active Staff] - Keep [facility] appointment Print Language: Italian Disposition Disposition: Home, Self Care
--- NOTE | 2025-02-28 02:35 | RAD_ITS ---
PROCEDURE: CHEST 1 VIEW (PORTABLE) 02/28/2025 REASON FOR EXAM: CHEST PAIN TECHNIQUE: Frontal view of the chest. COMPARISON: 02/06/2025 FINDINGS: The lungs appear clear. The cardiac and mediastinal contours appear within limits. Visualized osseous structures appear within limits. RAD/Chest 1 View (Portable) IMPRESSION: No evidence of acute disease. Reading Location: [id number]
[2025-02-28 02:39] LABS: Absolute Lymphocyte Count 3.11 X10^3/uL (0.83-4.51); Absolute Neutrophil Count 6.7 X10^3/uL (2.0-7.7); Basophil# 0.08 X10^3/uL; Basophil% 0.7 % (0-1); Eosinophils% 3.6 % (0-5); Hematocrit 23.4 % (37-47); Hemoglobin 7.4 g/dL (12.0-15.0); Lymphocyte # 3.11 X10^3/ul (0.83-4.51); Mean Corp Hgb Conc 31.6 g/dL (32-36); Mean Corpuscular Hgb 32.3 pg (27.0-32.0); Mean Corpuscular Volume 102.2 fL (81-99); Mean Platelet Vol. 10.2 fl (6.2-12.0); Monocyte# 0.69 X10^3/uL; Monocyte% 6.2 % (0-10); NRBC Flagged by Analyzer 0 % (0-5); Neutrophil # 6.73 X10^3/uL (2.7-7.7); Neutrophil % 60.8 % (47-70); Platelet Count 199 K/mm3 (150-450); RBC Distribution Width SD 64.8 fl (35.1-43.9); Red Blood Count 2.29 M/mm3 (4.2-5.4); White Blood Count 11.1 K/mm3 (4.4-11.0)
[2025-02-28] MEDS: Aspirin 81 MG TAB.CHEW 162 MG PO (02:42)
[2025-02-28 03:07] VITALS: BP 116/51; PULSE 80; RESP 14; O2SAT 97
[2025-02-28 03:07] LABS: Troponin T High Sensitivity 26 ng/L (<=14)
--- NOTE | 2025-02-28 03:33 | EKG12_ITS ---
Test Reason : REPEAT Blood Pressure : */* mmHG Vent. Rate : 73 BPM Atrial Rate : 73 BPM P-R Int : 146 ms QRS Dur : 70 ms QT Int : 360 ms P-R-T Axes : 84 67 62 degrees QTcB Int : 396 ms Normal sinus rhythm Normal ECG Confirmed by Jorge Leavitt ([id number]), non linear editor GENIE COBIAN ([id number]) on 03/01/2025 12:18:26 PM Referred By: Confirmed By: Jorge Leavitt
[2025-02-28 04:00] VITALS: BP 117/62; PULSE 92; RESP 16; O2SAT 98
[2025-02-28 04:04] LABS: Anion Gap 11 (5-15); BUN 30 mg/dL (4-19); BUN/Creat Ratio 27.2 RATIO (10-20); Calcium,Total 9.2 mg/dL (7.6-11.0); Carbon Dioxide 22.6 mmol/L (21.0-32.0); Chloride 107 mmol/L (98-108); Creatinine, Serum 1.09 mg/dL (0.70-1.20); EST Glomerular Filtration Rate 56 (>60); Estimated Creatinine Clearance 53.96 ml/min (50-250); Glucose 110 mg/dL (70-99); Potassium 4.9 mmol/L (3.3-5.1); Sodium Level 140 mmol/L (133-145)
[2025-02-28 04:54] LABS: Troponin T High Sens 2 HR 27 ng/L (<=14)
[2025-02-28 05:00] VITALS: BP 105/54; PULSE 85; RESP 20; O2SAT 96
[2025-02-28 05:18] VITALS: BP 105/54; PULSE 80; RESP 16; TEMP 36.3; O2SAT 98
== END 2025-02-28 05:21 | disposition home or self-care (01) ==
PROVIDERS: Emergency Provider Emergency Medicine; Visit Provider Emergency Medicine
DX: R00.2 Palpitations (principal); I25.10 Atherosclerotic heart disease of native coronary artery without angina pectoris; I25.2 Old myocardial infarction; F17.210 Nicotine dependence, cigarettes, uncomplicated; Z95.5 Presence of coronary angioplasty implant and graft; Z79.82 Long term (current) use of aspirin; Z79.899 Other long term (current) drug therapy
CPT/HCPCS: 99283; 71045; 80048; 84484; 85025; 93005; A4216

== ENCOUNTER → 2025-02-28 | Outpatient (CLI) | payer MEDICARE, SELFPAY ==
[2024-11-29 09:23] VITALS: BMI 25.9
[2025-02-12 10:43] VITALS: BMI 24.7
== END | disposition home or self-care (01) ==
LOC: PSN 11:40
PROVIDERS: Referring Provider Nurse Practitioner Gerontology; Visit Provider Nurse Practitioner Gerontology
DX: R00.2 Palpitations (principal)
CPT/HCPCS: 93225; 93226

== ENCOUNTER 2025-03-03 02:18 | Inpatient (IN) | payer MEDICARE, SELFPAY ==
[2025-02-12 10:43] VITALS: BMI 24.7
[2025-03-03] VITALS (22 sets, daily range): BP systolic 97–152; BP diastolic 48–79; PULSE 69–107; RESP 18–27; TEMP 36.1–36.9; O2SAT 95–100; BMI 25.7; BMI 24.6
--- NOTE | 2025-03-03 02:54 | EKG12_ITS ---
Test Reason : SOB Blood Pressure : */* mmHG Vent. Rate : 91 BPM Atrial Rate : 91 BPM P-R Int : 154 ms QRS Dur : 70 ms QT Int : 360 ms P-R-T Axes : 80 72 54 degrees QTcB Int : 442 ms Normal sinus rhythm Normal ECG Confirmed by Jorge Leavitt ([id number]), writer editor LISETTE PINEDA ([id number]) on 03/04/2025 9:16:24 AM Referred By: CG Confirmed By: Jorge Leavitt
--- NOTE | 2025-03-03 03:05 | RAD_ITS ---
PROCEDURE: CHEST 1 VIEW (PORTABLE) 03/03/2025 REASON FOR EXAM: CHEST PAIN TECHNIQUE: Frontal view of the chest. COMPARISON: None. FINDINGS: The lungs are expanded. There is no demonstrated parenchymal abnormality. There is no demonstrated pleural abnormality. Normal heart and pericardium. Normal mediastinum and mahad. Normal visualized pulmonary arteries. Normal visualized aortic arch and descending thoracic aorta. Normal visualized thoracic spine. Normal visualized ribs, clavicles, and shoulders. There is no demonstrated abnormality of the visualized soft tissue structures of the upper abdomen. RAD/Chest 1 View (Portable) IMPRESSION: No radiographic evidence of an acute abnormality. Reading [facility] [id number]
[2025-03-03 03:07] LABS: Absolute Lymphocyte Count 2.19 X10^3/uL (0.83-4.51); Absolute Neutrophil Count 6.9 X10^3/uL (2.0-7.7); Basophil# 0.05 X10^3/uL; Basophil% 0.5 % (0-1); Eosinophil# 0.25 X10^3/uL; Eosinophils% 2.5 % (0-5); Hematocrit 20.4 % (37-47); Hemoglobin 6.2 g/dL (12.0-15.0); Lymphocyte # 2.19 X10^3/ul (0.83-4.51); Lymphocyte % 22.1 % (19-41); Mean Corp Hgb Conc 30.4 g/dL (32-36); Mean Corpuscular Hgb 32.5 pg (27.0-32.0); Mean Corpuscular Volume 106.8 fL (81-99); Mean Platelet Vol. 10.3 fl (6.2-12.0); Monocyte# 0.51 X10^3/uL; Monocyte% 5.1 % (0-10); NRBC Flagged by Analyzer 0 % (0-5); Neutrophil # 6.87 X10^3/uL (2.7-7.7); Neutrophil % 69.3 % (47-70); POSITIVE MORPHOLOGY YES; Platelet Count 184 K/mm3 (150-450); RBC Distribution Width CV 18.6 % (11.6-14.6); RBC Distribution Width SD 70.3 fl (35.1-43.9); Red Blood Count 1.91 M/mm3 (4.2-5.4); White Blood Count 9.9 K/mm3 (4.4-11.0)
[2025-03-03 03:13] LABS: Prothrombin Time (Protime)PT. 13.7 SECONDS (11.7-14.9)
[2025-03-03 03:14] LABS: Partial Thromboplast Time 25.9 Seconds (24.1-36.2)
[2025-03-03 03:27] LABS: AST(SGOT) 21 U/L (<=31); Alanine Aminotransfer ALT/SGPT 35 U/L (<=34); Albumin, Serum 3.6 g/dL (3.4-4.8); Alkaline Phosphatase 58 U/L (35-104); Anion Gap 12 (5-15); BUN 26 mg/dL (4-19); Bilirubin, Direct 0.13 mg/dL (0.00-0.30); Carbon Dioxide 21.3 mmol/L (21.0-32.0); Chloride 108 mmol/L (98-108); Creatinine, Serum 1.25 mg/dL (0.70-1.20); EST Glomerular Filtration Rate 48 (>60); Estimated Creatinine Clearance 46.71 ml/min (50-250); Globulin 2.4 g/dL (2.2-4.2); Glucose 114 mg/dL (70-99); Lipase 52 U/L (13-75); Potassium 3.9 mmol/L (3.3-5.1); Pro- Brain NATRIURETIC PEPTIDE 531 pg/mL (<=900); Sodium Level 141 mmol/L (133-145); Total Bilirubin 0.26 mg/dL (0.00-1.30); Troponin T High Sensitivity 21 ng/L (<=14)
[2025-03-03 03:34] LABS: Differential Indicated SCAN CRITERIA MET
--- NOTE | 2025-03-03 03:46 | ED.VIS.DYS ---
HPI History of Present Illness Chief Complaint: Shortness of Breath Informant: patient Narrative Narrative: Patient is a 64-year-old female with history of recent GI bleeding as well as STEMI (now on Brilinta and aspirin) presenting with palpitations and generalized malaise as well as shortness of breath. She states she has been feeling good for couple days and this is after her second ER visit in the last 2 days. She notes tonight around 130 she woke up and felt like she could not breathe. She states that she has been feeling short of breath with exertion. She went to drink some water this morning and was nauseous but denies any vomiting. She states she has been feeling lightheaded. She had some mild swelling of her right leg. Denies history of DVT or PE. No she is continue to have dark stools but attributes that to not being on iron. Does folic her heart is racing. Did have a recent Holter monitor and actually brought the monitor ends to return it. Has been having epigastric discomfort and indigestion. No report of any vomiting. No other complaints or concerns at this time. Chart review shows that patient had a colonoscopy on 02/21/2025 which showed a 5 mm polyp at the splenic flexure which was removed using jumbo cold forceps as well as all single large localized angiodysplastic lesion with bleeding in the descending colon. 1 hemostatic clip was placed. On 02/19/2025 patient had an EGD which showed esophagitis with no bleeding and a medium size hiatal hernia. No other acute process. Patient was admitted 02/18 through 02/22 for GI bleeding. She had recently been started on dual antiplatelet therapy because of the stents that was placed secondary to coronary artery disease. Patient went down to 7.8. Did receive iron transfusion. [facility] Medical History GERD (gastroesophageal reflux disease) Smoker CPAP (continuous positive airway pressure) dependence Non-ST elevation [place] (NSTEMI) Hematuria UTI (urinary tract infection) Hyperlipidemia Atherosclerosis of coronary artery of [place] heart without angina pectoris Myocardial infarct Home Medications ?Medication ?Instructions ?Recorded ?Last Taken ?Type aspirin 81 mg tablet,delayed 81 mg PO DAILY@0800 health system 10/11/24 02/18/25 Rx release 90 days #90 tabs atorvastatin 40 mg tablet 40 mg PO QHS cholesterol 90 days 10/26/24 02/17/25 Rx #90 tabs lisinopril 2.5 mg tablet 2.5 mg PO DAILY blood pressure 90 10/26/24 02/04/25 Rx days #90 tabs metoprolol succinate 25 mg 25 mg PO DAILY heart 90 days #90 10/26/24 02/21/25 Rx tablet,extended release 24 hr tabs (Toprol XL) ticagrelor 90 mg tablet (Brilinta) 90 mg PO BID blood thinner 90 days 10/26/24 02/18/25 Rx #180 tabs albuterol sulfate 90 mcg/actuation 2 puff inhalation Q4H PRN PRN 02/06/25 Unknown Rx aerosol inhaler (Ventolin HFA) Wheezing ##1 ascorbate calcium (vitamin C) 500 1 g PO DAILY 02/06/25 02/05/25 History mg tablet cranberry [id number] 2 tab PO DAILY supplement 02/06/25 02/05/25 History coagulans 250 mg-30 mg-15 mg tablet (Azo Cranberry Plus Probiotic) ondansetron 4 mg disintegrating 4 mg PO Q6H PRN PRN Nausea #15 tabs 02/06/25 02/17/25 Rx tablet nitroglycerin 0.4 mg sublingual 0.4 mg sublingual Q5-15M PRN chest 02/07/25 Unknown Rx tablet pain #25 tabs pantoprazole 40 mg tablet,delayed 40 mg PO DAILY #90 tabs 02/22/25 Unknown Rx release (Protonix) polysaccharide iron complex 150 mg 150 mg PO DAILY 90 days #90 caps 02/22/25 Unknown Rx iron capsule (Ferrex) omeprazole 40 mg capsule,delayed 40 mg PO DAILY 03/03/25 Unknown History release Allergy/AdvReac Type Severity Reaction Status Date / Time Penicillins Allergy Hives Verified 03/03/25 02:22 Sulfa (Sulfonamide AdvReac Diarrhea Verified 03/03/25 02:22 Antibiotics) Family History Father CAD (coronary artery disease) CABG age 68; CVA (cerebral vascular accident) Myocardial infarction Mother Cancer Cervical, Melanoma, Colon Surgical History Status post cardiac surgery History of coronary artery stent placement History of carpal tunnel surgery of left wrist History of coronary artery stent placement (02/04/25) Social History household members: spouse housing: house Smoking Status: Current every day smoker tobacco type: cigarettes second hand exposure: No ROS ROS ED Constitutional Constitutional ED: Denies chills or fever(s) Eyes Eyes: Denies change in vision ENT ENT ED: Denies sore throat Cardiovascular Cardiovascular: Reports chest pain and racing heartbeat Respiratory/Chest Respiratory/Chest: Reports dyspnea and dyspnea on exertion; Denies sputum Gastrointestinal Gastrointestinal: Reports melena and nausea; Denies abdominal pain or vomiting Musculoskeletal Musculoskeletal: Denies arthralgias or myalgias Integumentary Denies rash Neurologic Neurologic: Reports weakness Hematologic/Lymphatic Hematologic/Lymphatic: Denies easy bleeding or easy bruising EXAM Physical Exam Const Vital Signs: 03/03/25 02:20 03/03/25 02:50 03/03/25 02:59 Temperature 97.8 F Temperature Source Oral Pulse Rate 95 Respiratory Rate 18 Respiratory Effort Normal Respiratory Depth Normal Respiratory Pattern Normal Blood Pressure 130/67 H Blood Pressure Mean 88 Blood Pressure Source Blood Pressure Position Blood Pressure Location Pulse Ox 99 Oxygen Delivery Method Room Air Room Air Room Air Oxygen Flow Rate (L/min) 03/03/25 02:59 03/03/25 03:20 03/03/25 04:00 Temperature Temperature Source Pulse Rate 87 103 H Respiratory Rate 27 H 21 H Respiratory Effort Respiratory Depth Respiratory Pattern Blood Pressure 111/50 L 111/61 Blood Pressure Mean 70 77 Blood Pressure Source Blood Pressure Position Blood Pressure Location Pulse Ox 96 97 100 Oxygen Delivery Method Room Air Room Air Room Air Oxygen Flow Rate (L/min) 03/03/25 05:00 03/03/25 05:43 03/03/25 05:58 Temperature 97.7 F L 97.7 F L Temperature Source Temporal Temporal Pulse Rate 105 H 107 H 102 H Respiratory Rate 22 H 25 H 22 H Respiratory Effort Respiratory Depth Respiratory Pattern Blood Pressure 116/49 L 116/55 L 152/66 H Blood Pressure Mean 71 75 94 Blood Pressure Source Monitor Monitor Blood Pressure Position Semi-Fowlers Semi-Fowlers Blood Pressure Location Left Arm Left Arm Pulse Ox 98 96 95 Oxygen Delivery Method Room Air Room Air Room Air Oxygen Flow Rate (L/min) 03/03/25 06:00 03/03/25 06:47 03/03/25 07:00 Temperature 97.2 F L Temperature Source Temporal Pulse Rate 101 H 82 80 Respiratory Rate 24 H 20 H 23 H Respiratory Effort Respiratory Depth Respiratory Pattern Normal Blood Pressure 126/53 H 101/48 L Blood Pressure Mean 77 65 Blood Pressure Source Monitor Blood Pressure Position Semi-Fowlers Blood Pressure Location Left Arm Pulse Ox 96 99 Oxygen Delivery Method Nasal Cannula Room Air Oxygen Flow Rate (L/min) 2 Positive well nourished and well developed Constitutional Narrative: Uncomfortable appearing General Appearance ED: well developed and pallor HEENT Reports dry mucous membranes Mouth ED: Yes dry mucous membranes Mouth: dry mucous membranes Eyes EOMs intact bilaterally General Eye ED: Yes pale conjunctiva Neck supple and no JVD Resp normal respiratory effort Resp Narrative: Bibasilar diminished breath sounds present. No crackles appreciated. Cardio regular rate and regular rhythm GI non-tender and non-distended GI Narrative: Chaperoned rectal exam performed. Patient has dark stool but not completely melanotic. Is guaiac positive. Extremity normal to inspection Extremity Narrative: Trace pitting edema of the lower extremities, slightly more pronounced on the right compared to the left. Compartments are soft. Neuro oriented x3 Sensorium / Orientation: alert Motor Exam: general weakness Psych mental status grossly normal Skin General Skin Exam: pallor; Negative for jaundice Rashes: no rashes MDM MDM MDM Narrative Medical decision making narrative: Patient evaluated for worsening shortness of breath. Woke up at 130 feeling she could not breathe. Lately has had worsening shortness of breath and palpitations. Notes she had recent admission for ACS and had a stent placed. After that she has been dealing with worsening anemia and had another admission where she was found to have GI bleeding. Was evaluated by GI. Is on dual antiplatelet therapy because of her recent stent. Differential includes symptomatic anemia, ACS, pneumothorax, pneumonia, COPD exacerbation, pleural effusion, GI bleed and referred GI symptoms. CBC shows normal white blood cell count and normal platelets however patient now has significant anemia with a hemoglobin of 6.2 (was 7.4 on 02/28/2025 but prior to last month baseline was around 13). Suspect this acute but slow worsening of her hemoglobin with underlying CAD as was causing her symptoms. Given her recent hospitalization and down a D-dimer to rule out PE. This is normal for age adjustment and low suspicion for PE. Do not think requires a CTA at this time. BMP does not show any significant electrolyte abnormalities however creatinine is mildly uptrending at 1.25 (baseline is 1.1), BUN is also mildly elevated at 26 but is stable compared to the last month. Initial high-sensitivity is 21, delta is pending. Lipase is normal. No significant transaminitis. Chest x-ray viewed by myself as well as radiology does not show any acute process however due to question of there were small effusions present that radiology did not comment on. EKG does not show any acute ischemia. Type and cross for 1 unit is ordered. Patient is also given some IV fluids. I will discuss with GI and hospitalist for admission given acute on chronic anemia likely from a continued GI bleeding in the setting of anticoagulation. Per conversation with Dr. Huynh, he agrees with admission for blood transfusion. He suspects patient would likely benefit from capsule study outpatient. Is not clear if she will need further endoscopy. Patient does become more short of breath with walking to the bathroom. She has very diminished breath sounds at the bases. Will obtain VBG and give DuoNeb as she does have a history of tobacco use. On reevaluation after DuoNeb patient is improvement of her breath sounds however patient feels that she cannot breathe. She is more tachycardic. VBG is more consistent with hyperventilation with a pH of 7.478, pCO2 of 24.3. Will be given 0.5 mg IV Ativan and continue to monitor. I do not appreciate any crackles or signs of flash pulmonary edema on physical exam. She is 94-95% on room air. Repeat evaluation after IV Ativan. Patient feels much more improved. Is breathing more comfortably. Continues to have improved breath sounds after the breathing treatment. Case discussed with Dr. Long for admission. Lab Data Attestation: I reviewed the patient's lab results. Labs: Laboratory Results - last 24 hr 03/03/25 03/03/25 03/03/25 02:35 02:35 02:35 WBC 9.9 RBC 1.91 L Hgb 6.2 L Hct 20.4 L MCV 106.8 H MCH 32.5 H MCHC 30.4 L RDW Std Deviation 70.3 H RDW Coeff of Gerber 18.6 H Plt Count 184 MPV 10.3 Immature Gran % (Auto) 0.500 Neut % (Auto) 69.3 Lymph % (Auto) 22.1 [place] % (Auto) 5.1 Eos % (Auto) 2.5 Baso % (Auto) 0.5 Absolute Neuts (auto) 6.9 Absolute Lymphs (auto) 2.19 Nucleated RBC % 0 Anisocytosis 1+ PT 13.7 INR 1.0 APTT 25.9 D-Dimer Quant (PE/DVT) 0.58 H* Sodium Cancelled 141 Potassium Cancelled 3.9 Chloride Cancelled Carbon Dioxide Anion Gap BUN Creatinine Estim Creat Clear Calc Est GFR (MDRD) Non-Af BUN/Creatinine Ratio Glucose Calcium Magnesium Total Bilirubin Direct Bilirubin AST ALT Alkaline Phosphatase Troponin T High Sens Troponin T Hi Sens 2 Hr NT pro BNP II Total Protein Albumin Globulin Lipase Blood Type ABO/Rh A1 Subgroup A1 Antigen Typing Rho(D) Thoughtly Interpret Antibody Screen Crossmatch 03/03/25 03/03/25 03/03/25 02:35 02:35 02:35 WBC RBC Hgb Hct MCV MCH MCHC RDW Std Deviation RDW Coeff of Gerber Plt Count MPV Immature Gran % (Auto) Neut % (Auto) Lymph % (Auto) [place] % (Auto) Eos % (Auto) Baso % (Auto) Absolute Neuts (auto) Absolute Lymphs (auto) Nucleated RBC % Anisocytosis PT INR APTT D-Dimer Quant (PE/DVT) Sodium Potassium Chloride 108 Carbon Dioxide Cancelled 21.3 Anion Gap Cancelled 12 BUN Cancelled Creatinine Estim Creat Clear Calc Est GFR (MDRD) Non-Af BUN/Creatinine Ratio Glucose Calcium Magnesium Total Bilirubin Direct Bilirubin AST ALT Alkaline Phosphatase Troponin T High Sens Troponin T Hi Sens 2 Hr NT pro BNP II Total Protein Albumin Globulin Lipase Blood Type ABO/Rh A1 Subgroup A1 Antigen Typing Rho(D) Thoughtly Interpret Antibody Screen Crossmatch 03/03/25 03/03/25 03/03/25 02:35 02:35 02:35 WBC RBC Hgb Hct MCV MCH MCHC RDW Std Deviation RDW Coeff of Gerber Plt Count MPV Immature Gran % (Auto) Neut % (Auto) Lymph % (Auto) [place] % (Auto) Eos % (Auto) Baso % (Auto) Absolute Neuts (auto) Absolute Lymphs (auto) Nucleated RBC % Anisocytosis PT INR APTT D-Dimer Quant (PE/DVT) Sodium Potassium Chloride Carbon Dioxide Anion Gap BUN 26 H Creatinine Cancelled 1.25 H Estim Creat Clear Calc Cancelled 46.71 L Est GFR (MDRD) Non-Af Cancelled BUN/Creatinine Ratio Glucose Calcium Magnesium Total Bilirubin Direct Bilirubin AST ALT Alkaline Phosphatase Troponin T High Sens Troponin T Hi Sens 2 Hr NT pro BNP II Total Protein Albumin Globulin Lipase Blood Type ABO/Rh A1 Subgroup A1 Antigen Typing Rho(D) Thoughtly Interpret Antibody Screen Crossmatch 03/03/25 03/03/25 03/03/25 02:35 02:35 02:35 WBC RBC Hgb Hct MCV MCH MCHC RDW Std Deviation RDW Coeff of Gerber Plt Count MPV Immature Gran % (Auto) Neut % (Auto) Lymph % (Auto) [place] % (Auto) Eos % (Auto) Baso % (Auto) Absolute Neuts (auto) Absolute Lymphs (auto) Nucleated RBC % Anisocytosis PT INR APTT D-Dimer Quant (PE/DVT) Sodium Potassium Chloride Carbon Dioxide Anion Gap BUN Creatinine Estim Creat Clear Calc Est GFR (MDRD) Non-Af 48 L BUN/Creatinine Ratio Cancelled 21.0 H Glucose Cancelled 114 H Calcium Cancelled Magnesium Total Bilirubin Direct Bilirubin AST ALT Alkaline Phosphatase Troponin T High Sens Troponin T Hi Sens 2 Hr NT pro BNP II Total Protein Albumin Globulin Lipase Blood Type ABO/Rh A1 Subgroup A1 Antigen Typing Rho(D) Thoughtly Interpret Antibody Screen Crossmatch 03/03/25 03/03/25 03/03/25 02:35 02:35 05:42 WBC RBC Hgb Hct MCV MCH MCHC RDW Std Deviation RDW Coeff of Gerber Plt Count MPV Immature Gran % (Auto) Neut % (Auto) Lymph % (Auto) [place] % (Auto) Eos % (Auto) Baso % (Auto) Absolute Neuts (auto) Absolute Lymphs (auto) Nucleated RBC % Anisocytosis PT INR APTT D-Dimer Quant (PE/DVT) Sodium Potassium Chloride Carbon Dioxide Anion Gap BUN Creatinine Estim Creat Clear Calc Est GFR (MDRD) Non-Af BUN/Creatinine Ratio Glucose Calcium 9.0 Magnesium 2.0 Total Bilirubin 0.26 Direct Bilirubin 0.13 AST 21 ALT 35 Alkaline Phosphatase 58 Troponin T High Sens 21 H D Troponin T Hi Sens 2 Hr 21 H NT pro BNP II Cancelled 531 Total Protein 6.0 Albumin 3.6 Globulin 2.4 Lipase 52 Blood Type A NEGATIVE ABO/Rh Cancelled A1 Subgroup Cancelled A1 Antigen Typing Cancelled Rho(D) Tech Interpret Cancelled Antibody Screen NEGATIVE Crossmatch See Detail ABG Data ABG results: ABG 03/03/25 06:13 Specimen Type ART Sample Site R Radial pH 7.48 H Bicarbonate Actual 18.0 L Total CO2 19 Base Excess -6 L O2 Saturation 71 L ABG pCO2 24.3 L ABG pO2 34 L* Kel Test Positive O2 Delivery Device Not entered Vent Mode Not entered Crit Call To/Read Back Yes Radiography Chest X-Ray - ED: 1 View, Read by ED Physician, Read by Radiologist and No Acute Disease Diagnostic Testing: Clinical Impression(s) from Imaging Studies Chest X-Ray 03/03/25 03:05 IMPRESSION: No radiographic evidence of an acute abnormality. Reading Location: [place] [id number] Rhythm Strip Rhythm Strip: Sinus Rhythm Rate: 91 Ectopy: None EKG Initial EKG: Attestation: I personally reviewed and interpreted this EKG as follows: Interpretation: Sinus Rhythm Comments: Normal sinus rhythm at a rate of 91 bpm Normal axis Normal intervals Normal ST segments Prior EKG tracings: available for review Prior: Unchanged Discharge Plan Dx/Rx/DC Orders Clinical Impression: Anemia, Palpitations, Weakness, GI bleed, ZAMORANO (dyspnea on exertion) Disposition Disposition: Acute Care [facility]
[2025-03-03 03:50] LABS: D-Dimer Quantitative (DVT/PE) 0.58 FEU/ug/m (0.27-0.49)
[2025-03-03] MEDS: 0.9% Normal Saline (500mL Bag) 500 ML 999 ML IV (04:28)
--- NOTE | 2025-03-03 04:31 | NURSING ---
concent for blood signed and placed on the chart.
[2025-03-03 04:37] LABS: Anisocytosis 1+
[2025-03-03] MEDS: Ipratropium/Albuterol Sulfate 3 ML AMPUL.NEB INHALATION (05:58)
[2025-03-03 06:06] LABS: Troponin T High Sens 2 HR 21 ng/L (<=14)
[2025-03-03 06:18] LABS: Allen Test Positive; Base Excess -6 mmol/L (-2 to +2); Blood Gas Specimen Type ART; Mode Not entered; O2 Delivery Device Not entered; PO2 34 mmHG (75-100); SITE R Radial; SO2 71 % (95-99); Total Carbon Dioxide 19 mmol/L; pCO2 24.3 mmHg (35-45); pH 7.48 (7.35-7.45)
[2025-03-03] MEDS: Lorazepam 2 MG/ML WCH Syringe 0.5 MG IV (06:26)
--- NOTE | 2025-03-03 07:38 | PCM.HP.STD ---
HPI - General General Date of Admission: 03/03/25 Date of Service: 03/03/25 Chief Complaint: shortness of breath. HPI Narrative MIGUEL MATHIAS, is a 64 F who presents with shortness of breath. Symptoms began this AM and awoke her from sleep. She denies Chest/abd pain. Has chronic black stools from iron, but denies any change. No hematochezia/hematemesis. No abnormal bruising. She presented with a Hg of 6.2. She was ordered 1 unit of PRBCs and has subsequently been transfused. She is feeling better at this time. Dr. Huynh, of GI, was contacted and would see the patient in consultation. Patient did get very short of breath going to the bathroom but felt to be patient did receive a dose of lorazepam. Patient was hospitalized from 02/18-02/22 and EGD showed Grad A erosive esophagitis; colonoscopy showed poor prep, moderate diverticulosis w/o bleeding. [facility] Medical History GERD (gastroesophageal reflux disease) Smoker CPAP (continuous positive airway pressure) dependence Non-ST elevation PR (NSTEMI) Hematuria UTI (urinary tract infection) Hyperlipidemia Atherosclerosis of coronary artery of [place] heart without angina pectoris Myocardial infarct Home Medications ?Medication ?Instructions ?Recorded ?Last Taken ?Type aspirin 81 mg tablet,delayed 81 mg PO DAILY@0800 heart health 10/11/24 02/18/25 Rx release 90 days #90 tabs atorvastatin 40 mg tablet 40 mg PO QHS cholesterol 90 days 10/26/24 02/17/25 Rx #90 tabs lisinopril 2.5 mg tablet 2.5 mg PO DAILY blood pressure 90 10/26/24 02/04/25 Rx days #90 tabs metoprolol succinate 25 mg 25 mg PO DAILY heart 90 days #90 10/26/24 02/21/25 Rx tablet,extended release 24 hr tabs (Toprol XL) ticagrelor 90 mg tablet (Brilinta) 90 mg PO BID blood thinner 90 days 10/26/24 02/18/25 Rx #180 tabs albuterol sulfate 90 mcg/actuation 2 puff inhalation Q4H PRN PRN 02/06/25 Unknown Rx aerosol inhaler (Ventolin HFA) Wheezing ##1 ascorbate calcium (vitamin C) 500 1 g PO DAILY 02/06/25 02/05/25 History mg tablet cranberry [id number] 2 tab PO DAILY supplement 02/06/25 02/05/25 History coagulans 250 mg-30 mg-15 mg tablet (Azo Cranberry Plus Probiotic) ondansetron 4 mg disintegrating 4 mg PO Q6H PRN PRN Nausea #15 tabs 02/06/25 02/17/25 Rx tablet nitroglycerin 0.4 mg sublingual 0.4 mg sublingual Q5-15M PRN chest 02/07/25 Unknown Rx tablet pain #25 tabs pantoprazole 40 mg tablet,delayed 40 mg PO DAILY #90 tabs 02/22/25 Unknown Rx release (Protonix) polysaccharide iron complex 150 mg 150 mg PO DAILY 90 days #90 caps 02/22/25 Unknown Rx iron capsule (Ferrex) omeprazole 40 mg capsule,delayed 40 mg PO DAILY 03/03/25 Unknown History release Allergy/AdvReac Type Severity Reaction Status Date / Time Penicillins Allergy Hives Verified 03/03/25 02:22 Sulfa (Sulfonamide AdvReac Diarrhea Verified 03/03/25 02:22 Antibiotics) Family History Father CAD (coronary artery disease) CABG age 68; CVA (cerebral vascular accident) Myocardial infarction Mother Cancer Cervical, Melanoma, Colon Surgical History Status post cardiac surgery History of coronary artery stent placement History of carpal tunnel surgery of left wrist History of coronary artery stent placement (02/04/25) Social History household members: spouse housing: house Smoking Status: Current every day smoker tobacco type: cigarettes second hand exposure: No ROS ROS Narrative All review of systems were negative except as mentioned above in the history of present illness and the other review of systems. Vital Signs Vital Signs Vital Signs: 03/03/25 02:20 03/03/25 02:50 03/03/25 02:59 Temperature 36.6 C Temperature Source Oral Pulse Rate 95 Respiratory Rate 18 Respiratory Effort Normal Respiratory Depth Normal Respiratory Pattern Normal Blood Pressure 130/67 H Blood Pressure Mean 88 Blood Pressure Source Blood Pressure Position Blood Pressure Location Pulse Ox 99 Oxygen Delivery Method Room Air Room Air Room Air Oxygen Flow Rate (L/min) 03/03/25 02:59 03/03/25 03:20 03/03/25 04:00 Temperature Temperature Source Pulse Rate 87 103 H Respiratory Rate 27 H 21 H Respiratory Effort Respiratory Depth Respiratory Pattern Blood Pressure 111/50 L 111/61 Blood Pressure Mean 70 77 Blood Pressure Source Blood Pressure Position Blood Pressure Location Pulse Ox 96 97 100 Oxygen Delivery Method Room Air Room Air Room Air Oxygen Flow Rate (L/min) 03/03/25 05:00 03/03/25 05:43 03/03/25 05:58 Temperature 36.5 C L 36.5 C L Temperature Source Temporal Temporal Pulse Rate 105 H 107 H 102 H Respiratory Rate 22 H 25 H 22 H Respiratory Effort Respiratory Depth Respiratory Pattern Blood Pressure 116/49 L 116/55 L 152/66 H Blood Pressure Mean 71 75 94 Blood Pressure Source Monitor Monitor Blood Pressure Position Semi-Fowlers Semi-Fowlers Blood Pressure Location Left Arm Left Arm Pulse Ox 98 96 95 Oxygen Delivery Method Room Air Room Air Room Air Oxygen Flow Rate (L/min) 03/03/25 06:00 03/03/25 06:47 03/03/25 07:00 Temperature 36.2 C L Temperature Source Temporal Pulse Rate 101 H 82 80 Respiratory Rate 24 H 20 H 23 H Respiratory Effort Respiratory Depth Respiratory Pattern Normal Blood Pressure 126/53 H 101/48 L Blood Pressure Mean 77 65 Blood Pressure Source Monitor Blood Pressure Position Semi-Fowlers Blood Pressure Location Left Arm Pulse Ox 96 99 Oxygen Delivery Method Nasal Cannula Room Air Oxygen Flow Rate (L/min) 2 03/03/25 07:24 Temperature 36.1 C L Temperature Source Pulse Rate 87 Respiratory Rate 23 H Respiratory Effort Respiratory Depth Respiratory Pattern Blood Pressure 104/54 L Blood Pressure Mean 70 Blood Pressure Source Blood Pressure Position Blood Pressure Location Pulse Ox 100 Oxygen Delivery Method Oxygen Flow Rate (L/min) Weight Weight: 74.7 kg Body Mass Index (BMI) 25.7 Physical Exam Narrative - Physical Exam General: Alert, Oriented x3, Cooperative HEENT: Atraumatic, PERRLA, EOMI, Normocephalic Oral: Moist Mucosa, No Gingival or Mucosal Lesions/ Ulcerations Neck: Supple, No JVD, Negative Carotid Bruits Lungs: Clear to auscultation, Normal air movement Cardiovascular: Regular rate, Normal S1, Normal S2, No murmurs Abdomen: Bowel Sounds Present, Soft, Non Tender, Non-Distended, No Hepato-splenomegaly Extremities: No clubbing, No cyanosis, No edema Skin: No rashes, No breakdown Musculoskeletal: No Tenderness to Palpation of Joints or Extremities Neurological: Neuro grossly intact Psych/Mental Status: Normal Affect, Appropriate Results Lab / Micro Data Attestation: I reviewed the patient's lab results. 03/03/25 02:35 03/03/25 02:35 Labs: Laboratory Results - last 24 hr 03/03/25 02:35: WBC 9.9, RBC 1.91 L, Hgb 6.2 L, Hct 20.4 L, MCV 106.8 H, MCH 32.5 H, MCHC 30.4 L, RDW Std Deviation 70.3 H, RDW Coeff of Gerber 18.6 H, Plt Count 184, MPV 10.3, Immature Gran % (Auto) 0.500, Neut % (Auto) 69.3, Lymph % (Auto) 22.1, Bel[place] % (Auto) 5.1, Eos % (Auto) 2.5, Baso % (Auto) 0.5, Absolute Neuts (auto) 6.9, Absolute Lymphs (auto) 2.19, Nucleated RBC % 0, Anisocytosis 1+, PT 13.7, INR 1.0, APTT 25.9, D-Dimer Quant (PE/DVT) 0.58 H*, Sodium Cancelled 03/03/25 02:35: Sodium 141, Potassium Cancelled 03/03/25 02:35: Potassium 3.9, Chloride Cancelled 03/03/25 02:35: Chloride 108, Carbon Dioxide Cancelled 03/03/25 02:35: Carbon Dioxide 21.3, Anion Gap Cancelled 03/03/25 02:35: Anion Gap 12, BUN Cancelled 03/03/25 02:35: BUN 26 H, Creatinine Cancelled 03/03/25 02:35: Creatinine 1.25 H, Estim Creat Clear Calc Cancelled 03/03/25 02:35: Estim Creat Clear Calc 46.71 L, Est GFR (MDRD) Non-Af Cancelled 03/03/25 02:35: Est GFR (MDRD) Non-Af 48 L, BUN/Creatinine Ratio Cancelled 03/03/25 02:35: BUN/Creatinine Ratio 21.0 H, Glucose Cancelled 03/03/25 02:35: Glucose 114 H, Calcium Cancelled 03/03/25 02:35: Calcium 9.0, Magnesium 2.0, Total Bilirubin 0.26, Direct Bilirubin 0.13, AST 21, ALT 35, Alkaline Phosphatase 58, Troponin T High Sens 21 H D, NT pro BNP II Cancelled 03/03/25 02:35: NT pro BNP II 531, Total Protein 6.0, Albumin 3.6, Globulin 2.4, Lipase 52, Blood Type A NEGATIVE, ABO/Rh Cancelled, A1 Subgroup Cancelled, A1 Antigen Typing Cancelled, Rho(D) Tech Interpret Cancelled, Antibody Screen NEGATIVE, Crossmatch See Detail 03/03/25 05:42: Troponin T Hi Sens 2 Hr 21 H Micro: Microbiology 03/03/25 03:58 Stool Stool Occult Blood (BHAVESH) - Final Occult Blood Positive ABG Data ABG results: ABG 03/03/25 06:13 Specimen Type ART Sample Site R Radial pH 7.48 H Bicarbonate Actual 18.0 L Total CO2 19 Base Excess -6 L O2 Saturation 71 L ABG pCO2 24.3 L ABG pO2 34 L* Kel Test Positive O2 Delivery Device Not entered Vent Mode Not entered Crit Call To/Read Back Yes Rhythm Strip Rhythm Strip: Sinus Rhythm Rate: 91 Ectopy: None EKG Initial EKG: Attestation: I personally reviewed and interpreted this EKG as follows: Prior EKG tracings: available for review EKG Rhythm Intrepretation: Sinus Rhythm Imaging Radiology Impression Chest X-Ray 03/03/25 03:05 IMPRESSION: No radiographic evidence of an acute abnormality. Reading Location: [place] [address] Assessment & Plan Assessment/Plan (1) Anemia: PLAN: Acute, symptomatic. Recurrent. No obvious bleeding but was heme positive in the emergency room. Patient does have noted diverticulosis on her previous colonoscopy which I suspect would probably be the source of her bleeding complicated by the fact that she is on aspirin and ticagrelor. Patient received a unit of blood here in the emergency room. Will monitor her hemoglobin. Given her recent PCI, goal hemoglobin to be around 8. Though I do not feel that it is upper we will change her PPI to IV twice daily for now. (2) GI bleed: PLAN: No marlyn bleeding but heme positive. Suspect diverticular. GI on consult. Unless patient starts actively hemorrhaging, I do not feel that CT angiogram would be necessary at this time. PLAN: Plan CAD: Patient had PCI in September 2024. Patient needs to continue dual antiplatelet therapy as well as atorvastatin. Hypertension: Continue with lisinopril metoprolol. VTE prophylaxis with SCDs CODE STATUS: Addressed with the patient. Patient wishes to be full code. Charges/Coding Visit Charges Inpatient E&M: 87912 Init Hosp L3
[2025-03-03 08:28] LABS: Troponin T High Sens 4 HR 19 ng/L (<=14)
[2025-03-03 08:49] LABS: Hematocrit 26.4 % (37-47); Hemoglobin 8.3 g/dL (12.0-15.0)
[2025-03-03] MEDS: TICAGRELOR 90 MG TABLET PO ×2 (11:03→20:51)
[2025-03-03] MEDS: Iron Polysaccharide Complex 150 MG CAPSULE PO (11:03)
[2025-03-03] MEDS: Metoprolol(XL)Succ 25 MG Tablet PO (11:03)
[2025-03-03] MEDS: Lisinopril 2.5 MG Tablet PO (11:04)
[2025-03-03] MEDS: Aspirin E.C. 81 MG Tablet PO (11:04)
[2025-03-03] MEDS: Pantoprazole Sodium 40 MG in 0.9% Normal Saline (100mL MB+) 100 ML 330 MG IV ×2 (11:06→20:49)
[2025-03-03 14:34] LABS: Hematocrit 26.2 % (37-47); Hemoglobin 8.4 g/dL (12.0-15.0)
[2025-03-03 20:05] LABS: Hemoglobin 8.4 g/dL (12.0-15.0)
[2025-03-03] MEDS: 0.9% Saline Lock 10 ML Syringe IV (20:49)
[2025-03-03] MEDS: Atorvastatin Calcium 40 MG Tablet PO (20:51)
[2025-03-04 03:00] VITALS: BP 109/53; PULSE 94; RESP 18; TEMP 36.6; O2SAT 96
[2025-03-04 03:12] LABS: Absolute Lymphocyte Count 1.27 X10^3/uL (0.83-4.51); Absolute Neutrophil Count 7.7 X10^3/uL (2.0-7.7); Basophil# 0.08 X10^3/uL; Basophil% 0.8 % (0-1); Eosinophil# 0.22 X10^3/uL; Eosinophils% 2.2 % (0-5); Hematocrit 24.4 % (37-47); Hemoglobin 7.6 g/dL (12.0-15.0); Lymphocyte # 1.27 X10^3/ul (0.83-4.51); Mean Corp Hgb Conc 31.1 g/dL (32-36); Mean Corpuscular Volume 99.6 fL (81-99); Monocyte# 0.46 X10^3/uL; Monocyte% 4.7 % (0-10); NRBC Flagged by Analyzer 0 % (0-5); Neutrophil # 7.72 X10^3/uL (2.7-7.7); Neutrophil % 78.8 % (47-70); POSITIVE MORPHOLOGY YES; Platelet Count 154 K/mm3 (150-450); RBC Distribution Width CV 22.7 % (11.6-14.6); RBC Distribution Width SD 80.7 fl (35.1-43.9); Red Blood Count 2.45 M/mm3 (4.2-5.4); White Blood Count 9.8 K/mm3 (4.4-11.0)
[2025-03-04 03:20] LABS: Differential Indicated SCAN CRITERIA MET
[2025-03-04 03:50] LABS: Anion Gap 11 (5-15); BUN 16 mg/dL (4-19); BUN/Creat Ratio 15.9 RATIO (10-20); Carbon Dioxide 19.3 mmol/L (21.0-32.0); Chloride 111 mmol/L (98-108); EST Glomerular Filtration Rate 62 (>60); Estimated Creatinine Clearance 53.81 ml/min (50-250); Glucose 92 mg/dL (70-99); Potassium 3.9 mmol/L (3.3-5.1); Sodium Level 142 mmol/L (133-145)
[2025-03-04 03:59] LABS: Anisocytosis 3+; Differential Comment SCANNED; Platelet Estimate ADEQUATE (ADEQ)
[2025-03-04 04:00] LABS: Ovalocyte 1+
--- NOTE | 2025-03-04 07:30 | PN.HOSP_ITS ---
Reason for Visit Reason for Visit: Diagnoses Anemia, unspecified (03/03/25) Gastrointestinal hemorrhage, unspecified (03/03/25) Subjective Subjective Epigastric pain. Objective Data Objective Data Vital Signs: Vital Signs Temp Pulse Resp BP Pulse Ox O2 Del Method O2 Flow Rate 36.6 C 94 18 109/53 L 96 Room Air 2 03/04/25 03:00 03/04/25 03:00 03/04/25 03:00 03/04/25 03:00 03/04/25 03:00 03/04/25 03:00 03/03/25 12:31 Oxygen Flow Rate (L/min) 2 Oxygen Delivery Method Room Air Weight: 71.469 kg Body Mass Index (BMI) 24.6 Intake & Output: Intake and Output for Last 24 Hours 03/02/25 03/03/25 03/04/25 23:59 23:59 23:59 Intake Total 2069 Balance 2069 Lab / Micro Data 03/04/25 09:45 03/04/25 02:58 Labs: Laboratory Results - last 24 hr 03/03/25 02:35: Crossmatch See Detail 03/03/25 08:00: Troponin T Hi Sens 4Hr 19 H 03/03/25 08:43: Hgb 8.3 L, Hct 26.4 L 03/03/25 14:26: Hgb 8.4 L, Hct 26.2 L 03/03/25 19:55: Hgb 8.4 L, Hct 27.0 L 03/04/25 02:58: WBC 9.8, RBC 2.45 L, Hgb 7.6 L, Hct 24.4 L, MCV 99.6 H D, MCH 31.0, MCHC 31.1 L, RDW Std Deviation 80.7 H, RDW Coeff of Gerber 22.7 H, Plt Count 154, MPV 10.0, Immature Gran % (Auto) 0.500, Neut % (Auto) 78.8 H, Lymph % (Auto) 13.0 L, Tillman % (Auto) 4.7, Eos % (Auto) 2.2, Baso % (Auto) 0.8, Absolute Neuts (auto) 7.7, Absolute Lymphs (auto) 1.27, Nucleated RBC % 0, Differential Comment SCANNED, Platelet Estimate ADEQUATE, Anisocytosis 3+, Ovalocytes 1+, Sodium 142, Potassium 3.9, Chloride 111 H, Carbon Dioxide 19.3 L, Anion Gap 11, BUN 16, Creatinine 1.00, Estim Creat Clear Calc 53.81, Est GFR (MDRD) Non-Af 62, BUN/Creatinine Ratio 15.9, Glucose 92, Calcium 9.0 Micro: Microbiology 03/03/25 03:58 Stool Stool Occult Blood (BHAVESH) - Final Occult Blood Positive Rhythm Strip Rhythm Strip: Sinus Rhythm Rate: 91 Ectopy: None Physical Exam Const alert and no apparent distress HEENT head/scalp atraumatic and moist oral mucous membranes Neck no lymphadenopathy Resp normal respiratory effort, no retractions, no use of accessory muscles and clear to auscultation bilaterally Cardio regular rate, regular rhythm, S1 normal heart sound and S2 normal heart sound GI normal to inspection, nondistended, normoactive bowel sounds, soft to palpation, non-tender and non-distended Extremity normal to inspection and full ROM Neuro Sensorium / Orientation: awake and alert Assessment & Plan Assessment/Plan (1) Anemia: PLAN: Acute, symptomatic. Recurrent. No obvious bleeding but was heme positive in the emergency room. Patient does have noted diverticulosis on her previous colonoscopy which I suspect would probably be the source of her bleeding complicated by the fact that she is on aspirin and ticagrelor. Patient received a unit of blood here in the emergency room. Will monitor her hemoglobin. Given her recent PCI, goal hemoglobin to be around 8. Hemoglobin was 8.3, down to 7.6 today, but then recurrent blood was 8.4. Hold off on transfusion for now. Though I do not feel that it is upper we will change her PPI to IV twice daily for now. (2) GI bleed: PLAN: No marlyn bleeding but heme positive. Suspect diverticular. GI on consult. Unless patient starts actively hemorrhaging, I do not feel that CT angiogram would be necessary at this time. PLAN: Plan CAD: Patient had PCI in September 2024. Patient needs to continue dual antiplatelet therapy as well as atorvastatin. Hypertension: Continue with lisinopril metoprolol. [place]: pt awoke with shortness of breath. I suspect this may have been an apneic episode from sleep apnea and subsequently found to be anemic. VTE prophylaxis with SCDs CODE STATUS: Addressed with the patient. Patient wishes to be full code. On 03/03 it was reported to me that the patient was anxious. I went to see the patient and she appeared calm but there were 2 younger people in the room. I was speaking with the woman in the room about the anemia, and mentioned that the patient that the patient just came in, meaning just admitted. The man in the room yelled saying that she didn't just come in, but has been admitted before for similar. Continuing to yell, he demanded that the patient be transferred. I asked him to where would he like the patient be transferred to he [facility]. I clarified with this man that he wanted the patient transferred to [facility], he responded yes (not yelling at this point), but stated that it would be ultimately up to the patient (this man did not establish any eye contact with me during his berating of me). I then asked the patient if she wished to be transferred to [facility] and she politely declined to answer at that time. Charges/Coding Visit Charges Inpatient E&M: 67233 Subs Hosp L2
[2025-03-04 09:51] VITALS: BP 102/57; PULSE 86; RESP 16; TEMP 36.3; O2SAT 100
[2025-03-04 09:52] VITALS: BP 102/57; PULSE 86
[2025-03-04] MEDS: TICAGRELOR 90 MG TABLET PO (09:52)
[2025-03-04] MEDS: Metoprolol(XL)Succ 25 MG Tablet PO (09:52)
[2025-03-04] MEDS: Iron Polysaccharide Complex 150 MG CAPSULE PO (09:52)
[2025-03-04] MEDS: Aspirin E.C. 81 MG Tablet PO (09:52)
[2025-03-04] MEDS: 0.9% Saline Lock 10 ML Syringe IV ×2 (09:53→15:23)
[2025-03-04] MEDS: Pantoprazole Sodium 40 MG in 0.9% Normal Saline (100mL MB+) 100 ML 330 MG IV (09:56)
[2025-03-04 09:57] LABS: Hematocrit 27.2 % (37-47); Hemoglobin 8.4 g/dL (12.0-15.0)
[2025-03-04] MEDS: Lisinopril 2.5 MG Tablet PO (09:57)
--- NOTE | 2025-03-04 13:15 | CASEMGMT ---
NICOLA GARAY chart reveiw: Patient was admitted 02/18-02/22/25 for GI Bleed. See assessment from 02/04/25 and readmission note from 02/19/25. Patient was discharged to home with family support and follow-up plans in place. Patient returned to [facility] ED on 03/03/25 for increased SOB. Patient had hgb of 6.2 and had positive occult stool, patient was given a unit of PRBC in the ED. Patient was admitted for symptomatic anemia and GI Bleed. NICOLA GARAY in to discuss readmission and discharge planning. Patient states she was taking medication as prescribed and attending follow-up appt with PCP. Patient denies needs or help at discharge. Patient states her plan is to follow-up with GI for outpatient endoscopy capsule. Patient had no further questions or concerns. CM will continue to follow this patient and plan for a safe discharge.
[2025-03-04 14:44] LABS: Platelet Count 209 K/mm3 (150-450); RET-HE 30.4 pg (30-35); Reticulocyte Count 9.26 % (0.5-1.5)
[2025-03-04 15:05] LABS: Ferritin 92 ng/mL (22-378); Iron 33 ug/dL (50-170); Iron Binding Capacity,Total 290 ug/dL (250-450); Iron Binding Capacity,Unsat 257 ug/dL (228-428)
[2025-03-04] MEDS: Sodium Ferric Gluconat/Sucrose 250 MG in 0.9% Normal Saline (250mL Bag) 250 ML 135 MG IV (15:23)
[2025-03-04 15:25] VITALS: BP 99/61; PULSE 64; RESP 14; TEMP 36.6; O2SAT 100
--- NOTE | 2025-03-04 16:14 | PCM.DC.SUM ---
Providers Date of Admission: 03/03/25 Primary Care Physician: Dr. Florin Bailey, DO Consultations 03/03/25 08:27 Consult: Gastroenterology Routine Consulting Provider: [facility] Reason for Consult: GI bleed EMERGENT Consult: No MD Notified: Yes Date Notified: 03/03/25 Time Notified: 07:16 Method of Notification: ED Physician Initiated Reason For Visit: SYMPTOMATIC ANEMIA, GI BLEED Diagnosis Discharge Diagnosis (1) Anemia: Status: Acute Code(s): D64.9 - Anemia, unspecified Plan: Acute, symptomatic. Recurrent. No obvious bleeding but was heme positive in the emergency room. Patient does have noted diverticulosis on her previous colonoscopy which I suspect would probably be the source of her bleeding complicated by the fact that she is on aspirin and ticagrelor. Patient received a unit of blood here in the emergency room. Will monitor her hemoglobin. Given her recent PCI, goal hemoglobin to be around 8. Hemoglobin was 8.3, down to 7.6 today, but then recurrent blood was 8.4. Hold off on transfusion for now. Though I do not feel that it is upper we will change her PPI to IV twice daily for now. Receiving IV iron. (2) GI bleed: Status: Acute Code(s): K92.2 - Gastrointestinal hemorrhage, unspecified Plan: No marlyn bleeding but heme positive. COOPER Harding Friend, outpt capsule endoscopy. Follow up with him as outpatient. Ok for discharge. Plan CAD: Patient had PCI in September 2024. Patient needs to continue dual antiplatelet therapy as well as atorvastatin. Hypertension: Continue with lisinopril metoprolol. ANDRIA: pt awoke with shortness of breath. I suspect this may have been an apneic episode from sleep apnea and subsequently found to be anemic. VTE prophylaxis with SCDs CODE STATUS: Addressed with the patient. Patient wishes to be full code. On 03/03 it was reported to me that the patient was anxious. I went to see the patient and she appeared calm but there were 2 younger people in the room. I was speaking with the woman in the room about the anemia, and mentioned that the patient that the patient just came in, meaning just admitted. The man in the room yelled saying that she didn't just come in, but has been admitted before for similar. Continuing to yell, he demanded that the patient be transferred. I asked him to where would he like the patient be transferred to he said [place]. I clarified with this man that he wanted the patient transferred to [facility], he responded yes (not yelling at this point), but stated that it would be ultimately up to the patient (this man did not establish any eye contact with me during his berating of me). I then asked the patient if she wished to be transferred to [facility] and she politely declined to answer at that time. Medications at Discharge Home Medications aspirin 81 mg tablet,delayed release 81 mg PO DAILY@0800 heart health 90 days #90 tabs 10/11/24 atorvastatin 40 mg tablet 40 mg PO QHS cholesterol 90 days #90 tabs 10/26/24 lisinopril 2.5 mg tablet 2.5 mg PO DAILY blood pressure 90 days #90 tabs 10/26/24 metoprolol succinate 25 mg tablet,extended release 24 hr (Toprol XL) 25 mg PO DAILY heart 90 days #90 tabs 10/26/24 ticagrelor 90 mg tablet (Brilinta) 90 mg PO BID blood thinner 90 days #180 tabs 10/26/24 albuterol sulfate 90 mcg/actuation aerosol inhaler (Ventolin HFA) 2 puff inhalation Q4H PRN PRN Wheezing ##1 02/06/25 ascorbate calcium (vitamin C) 500 mg tablet 1 g PO DAILY 02/06/25 cranberry [id number] coagulans 250 mg-30 mg-15 mg tablet (Azo Cranberry Plus Probiotic) 2 tab PO DAILY supplement 02/06/25 ondansetron 4 mg disintegrating tablet 4 mg PO Q6H PRN PRN Nausea #15 tabs 02/06/25 nitroglycerin 0.4 mg sublingual tablet 0.4 mg sublingual Q5-15M PRN chest pain #25 tabs 02/07/25 pantoprazole 40 mg tablet,delayed release (Protonix) 40 mg PO DAILY #90 tabs 02/22/25 polysaccharide iron complex 150 mg iron capsule (Ferrex) 150 mg PO DAILY 90 days #90 caps 02/22/25 omeprazole 40 mg capsule,delayed release 40 mg PO DAILY 03/03/25 Hospital Course Operations None Procedures None Summary of Care Provided Minutes Spent on Discharge: 35 Hospital Course: Patient presents with shortness of breath. She woke at home and was short of breath. Presented to the emergency room where hemoglobin is noted to be 6.2. She was transfused 2 units of packed red blood cells and her hemoglobin went up to 8.3. She did have a hemoglobin that went down to 7.6 but the follow-up hemoglobin was 8.4. So she did not require any additional transfusions. Am not sure the anemia caused her to acutely wake up but she does have a history of sleep apnea so she may have woken up due to an apneic episode related to sleep apnea. Nonetheless, patient was anemic. Patient was seen in consultation by Dr. Huynh of gastroenterology. He recommends an outpatient capsule endoscopy. She did receive IV iron while she was here and did have some iron studies performed which were pending at the time of this dictation. Weight / BMI Weight Weight: 71.469 kg Body Mass Index (BMI) 24.6 ABG / Lab / Microbiology Data 03/04/25 09:45 03/04/25 02:58 Laboratory: Laboratory Results - last 24 hr 03/03/25 02:35: Crossmatch See Detail 03/03/25 19:55: Hgb 8.4 L, Hct 27.0 L 03/04/25 02:58: WBC 9.8, RBC 2.45 L, Hgb 7.6 L, Hct 24.4 L, MCV 99.6 H D, MCH 31.0, MCHC 31.1 L, RDW Std Deviation 80.7 H, RDW Coeff of Gerber 22.7 H, Plt Count 154, MPV 10.0, Immature Gran % (Auto) 0.500, Neut % (Auto) 78.8 H, Lymph % (Auto) 13.0 L, [place]ick % (Auto) 4.7, Eos % (Auto) 2.2, Baso % (Auto) 0.8, Absolute Neuts (auto) 7.7, Absolute Lymphs (auto) 1.27, Nucleated RBC % 0, Differential Comment SCANNED, Platelet Estimate ADEQUATE, Anisocytosis 3+, Ovalocytes 1+, Sodium 142, Potassium 3.9, Chloride 111 H, Carbon Dioxide 19.3 L, Anion Gap 11, BUN 16, Creatinine 1.00, Estim Creat Clear Calc 53.81, Est GFR (MDRD) Non-Af 62, BUN/Creatinine Ratio 15.9, Glucose 92, Calcium 9.0, Iron 33 L, TIBC 290, Iron Saturation 11.0 L, Unsaturated IBC 257, Ferritin 92 03/04/25 09:45: Hgb 8.4 L, Hct 27.2 L, Retic Count 9.26 H, Immature Retic Fraction 30.70 H, Retic Hgb Equivalent 30.4 Microbiology: Microbiology 03/03/25 03:58 Stool Stool Occult Blood (BHAVESH) - Final Occult Blood Positive D/C Instructions Discharge Diet: Low fat / Low cholesterol DC O2, CPAP, BIPAP Needs Home O2 Discharge instructions: No Meaningful Use Info Meaningful Use Meaningful Use Diagnoses (Choose all that apply): None applicable Ischemic Stroke Statin Dosing Therapy Reference: STATIN DOSE THERAPY REFERENCE: * Patients > 75 years receive moderate or high dose statin therapy. * Patients 75 years or YOUNGER should receive HIGH intensity statin dose unless contraindicated. You will be required to document reason for non-treatment if statin daily dose does not meet guidelines. HIGH DOSE STATIN THERAPY DAILY Atorvastatin > than or = to 40 mg Rosuvastatin > than or = to 20 mg Amlodipine + Atorvastatin > than or = to 2.5/40 mg Ezetimibe + Simvastatin 10/80 mg Simvastatin 80mg Discharge Plan Admission Admit Date/Time: 03/03/25 07:13 Primary Reason for Your Visit: anemia Attending Provider: Clyde Long Primary Care Provider: Florin Bailey Instructions Additional Instructions / Restrictions: You had anemia and required 2 units of blood. Your blood count has remained stable (you did have a level that was lower, but that was an outlier since the rest of your blood work [before and after] were stable). I would like for you to follow up with your primary care physician to have blood work later this week and next week to continue to monitor your blood count. Notify your physician if you notice blood in stool or vomit. Please follow up with Dr. Huynh in the next 2-4 weeks for capsule endoscopy. Discharge Orders/Prescriptions Prescriptions: Continued lisinopril 2.5 mg tablet 2.5 mg PO DAILY 90 Days Qty: 90 3RF Patient Comments: pt told yesterday if BP is less than 99, not to take med. pt has not taken since 02/04/25 metoprolol succinate [Toprol XL] 25 mg tablet extended release 24 hr 25 mg PO DAILY 90 Days Qty: 90 3RF Brilinta 90 mg tablet 90 mg PO BID 90 Days Qty: 180 3RF atorvastatin 40 mg tablet 40 mg PO QHS 90 Days Qty: 90 3RF nitroglycerin 0.4 mg tablet, sublingual 0.4 mg sublingual Q5-15M PRN (Reason: chest pain) Qty: 25 3RF Rx Instructions: do not exceed 3 doses per episode aspirin 81 mg Tablet,Delayed Release (Dr/Ec) 81 mg PO DAILY@0800 90 Days Qty: 90 3RF ascorbate calcium (vitamin C) 500 mg tablet 1 g PO DAILY Azo Cranberry Plus Probiotic 250-30-15 mg tablet 2 tab PO DAILY albuterol sulfate [Ventolin HFA] 90 mcg/actuation HFA aerosol inhaler 2 puff inhalation Q4H PRN PRN (Reason: Wheezing) Qty: 1 0RF Rx Instructions: with spacer ondansetron 4 mg tablet,disintegrating 4 mg PO Q6H PRN PRN (Reason: Nausea) Qty: 15 0RF polysaccharide iron complex [Ferrex 150] 150 mg iron Capsule 150 mg PO DAILY 90 Days Qty: 90 0RF pantoprazole [Protonix] 40 mg tablet,delayed release (DR/EC) 40 mg PO DAILY Qty: 90 0RF omeprazole 40 mg capsule,delayed release(DR/EC) 40 mg PO DAILY Referrals / Follow Up: Florin Bailey DO [Primary Care Provider] - Disposition Disposition (needs filled in before D/C Order can be placed): Home, Self Care Charges/Coding Visit Charges Inpatient E&M: 35840 Disch Hosp >30min
[2025-03-04 16:24] VITALS: BP 99/61; PULSE 64; RESP 14; TEMP 36.6; O2SAT 100
--- NOTE | 2025-03-04 16:32 | PHA.DC.MR.R ---
Pharmacy [place] Med Reconciliation Pharmacy Service has performed discharge medication reconciliation for this patient. The patient's discharge medication list was reviewed for discrepancies and discrepancies were resolved. Medications at Discharge Home Medications aspirin 81 mg tablet,delayed release 81 mg PO DAILY@0800 heart health 90 days #90 tabs 10/11/24 atorvastatin 40 mg tablet 40 mg PO QHS cholesterol 90 days #90 tabs 10/26/24 lisinopril 2.5 mg tablet 2.5 mg PO DAILY blood pressure 90 days #90 tabs 10/26/24 metoprolol succinate 25 mg tablet,extended release 24 hr (Toprol XL) 25 mg PO DAILY heart 90 days #90 tabs 10/26/24 ticagrelor 90 mg tablet (Brilinta) 90 mg PO BID blood thinner 90 days #180 tabs 10/26/24 albuterol sulfate 90 mcg/actuation aerosol inhaler (Ventolin HFA) 2 puff inhalation Q4H PRN PRN Wheezing ##1 02/06/25 ascorbate calcium (vitamin C) 500 mg tablet 1 g PO DAILY vitamin 02/06/25 cranberry [id number]-zhjxzfyu coagulans 250 mg-30 mg-15 mg tablet (Azo Cranberry Plus Probiotic) 2 tab PO DAILY supplement 02/06/25 ondansetron 4 mg disintegrating tablet 4 mg PO Q6H PRN PRN Nausea #15 tabs 02/06/25 nitroglycerin 0.4 mg sublingual tablet 0.4 mg sublingual Q5-15M PRN chest pain #25 tabs 02/07/25 pantoprazole 40 mg tablet,delayed release (Protonix) 40 mg PO DAILY reflux #90 tabs 02/22/25 polysaccharide iron complex 150 mg iron capsule (Ferrex) 150 mg PO DAILY supplement 90 days #90 caps 02/22/25 omeprazole 40 mg capsule,delayed release 40 mg PO DAILY reflux 03/03/25
--- NOTE | 2025-03-04 16:44 | EX.PCM.CON.G ---
HPI Consult Data Date of Consult: 03/04/25 HPI Narrative Reason for Consultation: Anemia HPI Narrative: MIGUEL MATHIAS, is a 64-year-old female with history of recent GI bleeding as well as STEMI (now on Brilinta and aspirin) presenting with palpitations and generalized malaise as well as shortness of breath. She was originally evaluated at [facility] in September [address] elevated myocardial infarction of the anterolateral wall. She proceeded to get a drug-eluting stent to LAD and PTCA . Heart catheterization showed left main with mild luminal irregularities, proximal LAD with 80% stenosis, mid LAD with 40% stenosis, diagonal 1 with 99% stenosis, LCx with mild diffuse disease, ostial RCA with 30-40% stenosis, and proximal RCA with mild luminal irregularities. Echocardiogram showed ejection fraction of 50%, stage I diastolic dysfunction, and wall motion abnormality with severely hypokinetic mid anterior wall and apex. No significant valvular abnormality was noted. Lipid panel on 10/10/2024 showed total cholesterol: 226, HDL: 37, LDL: 160, and triglycerides: 146. She presented to the emergency room via squad on 02/04/2025 with complaints of chest pain. She described this as a burning sensation to her mid chest. Her EKG demonstrated ST depressions. Patient underwent a cardiac catheterization which demonstrated 99% stenosis with thrombus in the mid circumflex. She underwent a successful drug-eluting stent to her mid circumflex and PTCA alone to the D1. She then presented back to the emergency room on 02/06/2025 with palpitations. She came back to the emergency room yesterday with the chief complaint she notes tonight around 130 she woke up and felt like she could not breathe. She states that she has been feeling short of breath with exertion. She went to drink some water this morning and was nauseous but denies any vomiting. She states she has been feeling lightheaded. -Colonoscopy on 02/21/2025 which showed a 5 mm polyp at the splenic flexure which was removed using jumbo cold forceps as well as all single large localized angiodysplastic lesion with bleeding in the descending colon. 1 hemostatic clip was placed. On 02/19/2025 patient had an EGD which showed esophagitis with no bleeding and a medium size hiatal hernia. No other acute process. Patient was admitted 02/18 through 02/22 for GI bleeding. She had recently been started on dual antiplatelet therapy because of the stents that was placed secondary to coronary artery disease. Patient went down to 7.8. Did receive iron transfusion. [facility] Medical History GERD (gastroesophageal reflux disease) Smoker CPAP (continuous positive airway pressure) dependence Non-ST elevation IA (NSTEMI) Hematuria UTI (urinary tract infection) Hyperlipidemia Atherosclerosis of coronary artery of [place] heart without angina pectoris Myocardial infarct Home Medications ?Medication ?Instructions ?Recorded ?Last Taken ?Type aspirin 81 mg tablet,delayed 81 mg PO DAILY@0800 heart health 10/11/24 02/18/25 Rx release 90 days #90 tabs atorvastatin 40 mg tablet 40 mg PO QHS cholesterol 90 days 10/26/24 02/17/25 Rx #90 tabs lisinopril 2.5 mg tablet 2.5 mg PO DAILY blood pressure 90 10/26/24 02/04/25 Rx days #90 tabs metoprolol succinate 25 mg 25 mg PO DAILY heart 90 days #90 10/26/24 02/21/25 Rx tablet,extended release 24 hr tabs (Toprol XL) ticagrelor 90 mg tablet (Brilinta) 90 mg PO BID blood thinner 90 days 10/26/24 02/18/25 Rx #180 tabs albuterol sulfate 90 mcg/actuation 2 puff inhalation Q4H PRN PRN 02/06/25 Unknown Rx aerosol inhaler (Ventolin HFA) Wheezing ##1 ascorbate calcium (vitamin C) 500 1 g PO DAILY vitamin 02/06/25 02/05/25 History mg tablet cranberry [id number] 2 tab PO DAILY supplement 02/06/25 02/05/25 History coagulans 250 mg-30 mg-15 mg tablet (Azo Cranberry Plus Probiotic) ondansetron 4 mg disintegrating 4 mg PO Q6H PRN PRN Nausea #15 tabs 02/06/25 02/17/25 Rx tablet nitroglycerin 0.4 mg sublingual 0.4 mg sublingual Q5-15M PRN chest 02/07/25 Unknown Rx tablet pain #25 tabs pantoprazole 40 mg tablet,delayed 40 mg PO DAILY reflux #90 tabs 02/22/25 Unknown Rx release (Protonix) polysaccharide iron complex 150 mg 150 mg PO DAILY supplement 90 days 02/22/25 Unknown Rx iron capsule (Ferrex) #90 caps omeprazole 40 mg capsule,delayed 40 mg PO DAILY reflux 03/03/25 Unknown History release Allergy/AdvReac Type Severity Reaction Status Date / Time Penicillins Allergy Hives Verified 03/03/25 02:22 Sulfa (Sulfonamide AdvReac Diarrhea Verified 03/03/25 02:22 Antibiotics) Family History Father CAD (coronary artery disease) CABG age 68; CVA (cerebral vascular accident) Myocardial infarction Mother Cancer Cervical, Melanoma, Colon Surgical History Status post cardiac surgery History of coronary artery stent placement History of carpal tunnel surgery of left wrist History of coronary artery stent placement (02/04/25) Social History household members: spouse housing: house Smoking Status: Current every day smoker tobacco type: cigarettes second hand exposure: No ROS Constitutional Constitutional: Denies fatigue, fever(s), poor appetite, weight gain or weight loss Gastrointestinal Gastrointestinal: Denies belching, bloating, change in bowel habits, change in stool character, chewing difficulty, coffee ground emesis, constipation, cramping, diarrhea, dyspepsia, dysphagia, early satiety, excessive flatus, fecal incontinence, heartburn, hematemesis, hematochezia, hemorrhoids, loose stools, melena, nausea, odynophagia, rectal bleeding, tenesmus, vomiting or weight changes Physical Exam Const alert, oriented x3, no apparent distress and healthy appearing General Appearance: cooperative GI normal to inspection, nondistended, normoactive bowel sounds, soft to palpation, non-tender and non-distended Percussion: normal to percussion Rectal Exam: deferred Lab / Micro Data 03/04/25 09:45 03/04/25 02:58 Labs: Laboratory Results - last 24 hr 03/03/25 02:35: Crossmatch See Detail 03/03/25 19:55: Hgb 8.4 L, Hct 27.0 L 03/04/25 02:58: WBC 9.8, RBC 2.45 L, Hgb 7.6 L, Hct 24.4 L, MCV 99.6 H D, MCH 31.0, MCHC 31.1 L, RDW Std Deviation 80.7 H, RDW Coeff of Gerber 22.7 H, Plt Count 154, MPV 10.0, Immature Gran % (Auto) 0.500, Neut % (Auto) 78.8 H, Lymph % (Auto) 13.0 L, [place] % (Auto) 4.7, Eos % (Auto) 2.2, Baso % (Auto) 0.8, Absolute Neuts (auto) 7.7, Absolute Lymphs (auto) 1.27, Nucleated RBC % 0, Differential Comment SCANNED, Platelet Estimate ADEQUATE, Anisocytosis 3+, Ovalocytes 1+, Sodium 142, Potassium 3.9, Chloride 111 H, Carbon Dioxide 19.3 L, Anion Gap 11, BUN 16, Creatinine 1.00, Estim Creat Clear Calc 53.81, Est GFR (MDRD) Non-Af 62, BUN/Creatinine Ratio 15.9, Glucose 92, Calcium 9.0, Iron 33 L, TIBC 290, Iron Saturation 11.0 L, Unsaturated IBC 257, Ferritin 92 03/04/25 09:45: Hgb 8.4 L, Hct 27.2 L, Retic Count 9.26 H, Immature Retic Fraction 30.70 H, Retic Hgb Equivalent 30.4 Rhythm Strip Rhythm Strip: Sinus Rhythm Rate: 91 Ectopy: None Assessment & Plan Assessment/Plan (1) GI bleed: (2) Anemia: (3) Acute GI bleeding: PLAN: Plan 64-year-old female with fatigue and shortness of breath with a macrocytic anemia. She was evaluated at [facility] in September [address] elevated myocardial infarction of the anterolateral wall. She proceeded with drug-eluting stent to LAD and PTCA of the proximal diagonal. Heart catheterization showed left main with mild luminal irregularities, proximal LAD with 80% stenosis, mid LAD with 40% stenosis, diagonal 1 with 99% stenosis, LCx with mild diffuse disease, ostial RCA with 30-40% stenosis, and proximal RCA with mild luminal irregularities. Echocardiogram showed ejection fraction of 50%, stage I diastolic dysfunction, and wall motion abnormality with severely hypokinetic mid anterior wall and apex. She presented with: Acute blood loss anemia secondary to a lower GI bleed ? Colonoscopy on 02/21/2025 which showed a 5 mm polyp at the splenic flexure which was removed using jumbo cold forceps as well as all single large localized angiodysplastic lesion with bleeding in the descending colon. 1 hemostatic clip was placed. On 02/19/2025 patient had an EGD which showed esophagitis with no bleeding and a medium size hiatal hernia. No other acute process. Patient was admitted 02/18 through 02/22 for GI bleeding. She had recently been started on dual antiplatelet therapy because of the stents that was placed secondary to coronary artery disease. Patient went down to 7.8. - Her hemoglobin will was 7.6 and currently up to 8.4. Her MCV is 99.6 with a platelet count of 154. That is not consistent with a GI bleed. Her BUN was 16 and her creatinine was 1. Her ferritin is 92, iron saturation of 11, TIBC of 290 and iron is 33. I do not think she had a recurrent GI bleed. - I think that she would benefit from a capsule endoscopy. I will give her another iron transfusion. Charges/Coding Visit Charges Inpatient E&M: 42058 Init Hosp L3
== END 2025-03-04 18:03 | disposition home or self-care (01) | DRG 378 ==
LOC: ED 07:14 → PCU 12:29
PROVIDERS: Internal Medicine Gastroenterology; Emergency Provider Emergency Medicine
DX: K92.2 Gastrointestinal hemorrhage, unspecified (principal); D68.32 Hemorrhagic disorder due to extrinsic circulating anticoagulants; I50.30 Unspecified diastolic (congestive) heart failure; D50.0 Iron deficiency anemia secondary to blood loss (chronic); F17.210 Nicotine dependence, cigarettes, uncomplicated; E78.5 Hyperlipidemia, unspecified; G47.33 Obstructive sleep apnea (adult) (pediatric); I11.0 Hypertensive heart disease with heart failure; I25.10 Atherosclerotic heart disease of native coronary artery without angina pectoris; K44.9 Diaphragmatic hernia without obstruction or gangrene; I25.2 Old myocardial infarction; K21.9 Gastro-esophageal reflux disease without esophagitis; R53.1 Weakness; Z79.2 Long term (current) use of antibiotics; Z79.82 Long term (current) use of aspirin; Z95.5 Presence of coronary angioplasty implant and graft; R00.2 Palpitations; R00.0 Tachycardia, unspecified; Z79.02 Long term (current) use of antithrombotics/antiplatelets; R06.4 Hyperventilation; Z86.0100 Personal history of colon polyps, unspecified; Z99.89 Dependence on other enabling machines and devices; Z87.442 Personal history of urinary calculi; Z79.899 Other long term (current) drug therapy; Z88.1 Allergy status to other antibiotic agents; Z88.2 Allergy status to sulfonamides; Z82.49 Family history of ischemic heart disease and other diseases of the circulatory system
CPT/HCPCS: 36415; 36600; 71045; 80048; 80076; 82274; 82728; 82803; 83540; 83550; 83690; 83735; 83880; 84484; 85014; 85018; 85025; 85045; 85379; 85610; 85730; 86850; 86900; 86901; 86920; 93005; 94640; 97802; 99283; 99285; P9016; A4216; J2916

== ENCOUNTER → 2025-03-08 | Outpatient (CLI) | payer MEDICARE, SELFPAY ==
[2025-02-12 10:43] VITALS: BMI 24.7
[2025-03-08 09:17] LABS: Absolute Lymphocyte Count 1.33 X10^3/uL (0.83-4.51); Absolute Neutrophil Count 8.1 X10^3/uL (2.0-7.7); Basophil# 0.11 X10^3/uL; Basophil% 1.1 % (0-1); Eosinophil# 0.15 X10^3/uL; Eosinophils% 1.5 % (0-5); Hematocrit 26.1 % (37-47); Lymphocyte # 1.33 X10^3/ul (0.83-4.51); Mean Corp Hgb Conc 30.7 g/dL (32-36); Mean Corpuscular Hgb 31.5 pg (27.0-32.0); Mean Corpuscular Volume 102.8 fL (81-99); Mean Platelet Vol. 10.4 fl (6.2-12.0); Monocyte# 0.51 X10^3/uL; NRBC Flagged by Analyzer 0 % (0-5); POSITIVE MORPHOLOGY YES; Platelet Count 227 K/mm3 (150-450); RBC Distribution Width CV 20.6 % (11.6-14.6); RBC Distribution Width SD 77.1 fl (35.1-43.9); Red Blood Count 2.54 M/mm3 (4.2-5.4); White Blood Count 10.2 K/mm3 (4.4-11.0)
[2025-03-08 09:40] LABS: Anion Gap 12 (5-15); BUN 16 mg/dL (4-19); BUN/Creat Ratio 15.7 RATIO (10-20); Calcium,Total 9.4 mg/dL (7.6-11.0); Carbon Dioxide 20.5 mmol/L (21.0-32.0); Chloride 106 mmol/L (98-108); Creatinine, Serum 1.04 mg/dL (0.70-1.20); EST Glomerular Filtration Rate 59 (>60); Glucose 98 mg/dL (70-99); Sodium Level 138 mmol/L (133-145)
[2025-03-08 09:47] LABS: Differential Indicated SCAN CRITERIA MET
[2025-03-08 10:50] LABS: Anisocytosis 2+
[2025-03-11 19:08] LABS: Endomysial Antibody IgA Negative (Negative); Immunoglobulin A 180 mg/dL (87-352); Transferrin 261 mg/dL (192-364); t-Transglutaminase IgA <2 U/mL (0-3)
== END | disposition home or self-care (01) ==
LOC: LAB 08:18
PROVIDERS: Referring Provider Internal Medicine Gastroenterology; Visit Provider Internal Medicine Gastroenterology
DX: D64.9 Anemia, unspecified (principal)
CPT/HCPCS: 36415; 80048; 82784; 83516; 84466; 85025; 86255

== ENCOUNTER → 2025-03-11 | Outpatient (CLI) | payer MEDICARE, SELFPAY ==
[2025-02-12 10:43] VITALS: BMI 24.7
[2025-03-11 09:52] LABS: Absolute Lymphocyte Count 1.54 X10^3/uL (0.83-4.51); Absolute Neutrophil Count 6.7 X10^3/uL (2.0-7.7); Basophil# 0.13 X10^3/uL; Basophil% 1.4 % (0-1); Eosinophils% 2.2 % (0-5); Hematocrit 25.5 % (37-47); Hemoglobin 7.9 g/dL (12.0-15.0); Lymphocyte # 1.54 X10^3/ul (0.83-4.51); Mean Corpuscular Hgb 32.4 pg (27.0-32.0); Mean Corpuscular Volume 104.5 fL (81-99); Mean Platelet Vol. 10.2 fl (6.2-12.0); Monocyte# 0.45 X10^3/uL; NRBC Flagged by Analyzer 0 % (0-5); POSITIVE MORPHOLOGY YES; Platelet Count 261 K/mm3 (150-450); RBC Distribution Width CV 19.7 % (11.6-14.6); RBC Distribution Width SD 75.9 fl (35.1-43.9); Red Blood Count 2.44 M/mm3 (4.2-5.4); White Blood Count 9.1 K/mm3 (4.4-11.0)
[2025-03-11 10:28] LABS: Anisocytosis 2+
[2025-03-11 10:29] LABS: Differential Indicated SCAN CRITERIA MET
--- NOTE | 2025-03-13 07:04 | CR.ITP_ITS ---
Exercise - Initial Assessment Visit Comments:: Pt has not started rehab yet due to GI bleed/anemia. Physician Prescribed Exercise Modalities: Treadmill, Rower, Schwinn Airdyne AD-7, SciFit Stepper, SciFit Pro- II Ergometer and SciFit Lateral [place] Nutrition - Initial Assessment Weight Mgt (Other Care) Height: 5 ft 7 in Weight:: 158 lb BMI: 24.7 Core - Initial Assessment Tobacco Use Years Smokin Psychosocial - Initial Assess Target Goals Target Goals Referral to Behavioral Health PS - Interventions: Yes: Attend Stress Management Classes Nutrition Survey Nutrition Survey Instructions Scoring Instructions Exercise - 30-day Assessment Visit Date of Eval: 03/13/25 Comments:: Pt has not started rehab yet due to GI bleed/anemia. Physician Prescribed Exercise Modalities: Treadmill, Rower, Schw[employer] Airdyne AD-7, SciFit Stepper, SciFit Pro- II Ergometer and SciFit Lateral Combine Inspector Frequency: 3x/week for 12 weeks [36 sessions] Intensity: 60-80% of age predicted maximum heart rate reserve Duration: 30 - 45 minutes Current METSs:: 3 Target Heart Rate:: 92-116 Outcomes & Goals Goals:: Verbalizes understanding of THR, RPE & goal METS by session 6, Documents in home exercise log/reports 30 min aerobic 5 day/wk by DC, Demonstrates accurate pulse taking by DC and Other additional outcome/goals: see below Intervention & Plan Exercise Program Goals: Instruct on personal THR & RPE, Instruct on MET level & personal MET goal, Show patient to take own pulse /validate performance until accurate, Instruct on home exercise and Other additional plan/int Physical Activity Home Exercise Physical Activity - Home Exercise: Safe Exercise, Warm-up, Self-monitoring, Cool-Down, Home Exercise > 30 min Daily and Sitting Time <3 hours/daily Outcomes & Goals Outcomes/Goals: Demonstrates correct Warm-up/exercise Cool-Down (S3) if = 2.5 METs, Verbalizes symptoms of exercise intolerance by Session 3 (S3), Demonstrate safe equipment use (S3) & follows exercise prescrition (6) and Other: See below Intervention & Plan Plan/Intervention: Instruct warm-up & cool-down if exercising at > 2 METs, Instruct on symptoms of exercise intolerance & actions to take, Instruct & mon itor on saf, Assess intial functional capacity & safety risk and Other See below 30-day Reassessments 30 day Reassessments:: Not Met (Pt has not started rehab yet due to GI bleed/anemia.) Exercise - 60-day Assessment Physician Prescribed Exercise Modalities: Treadmill, Rower, Schwinn Airdyne AD-7, SciFit Stepper, SciFit Pro- II Ergometer and SciFit Lateral [place] Exercise - 90-day Assessment Physician Prescribed Exercise Modalities: Treadmill, Rower, Schwinn Airdyne AD-7, SciFit Stepper, SciFit Pro- II Ergometer and SciFit Lateral [place] Exercise - Final/Discharge Physician Prescribed Exercise Modalities: Treadmill, Rower, Schwinn Airdyne AD-7, SciFit Stepper, SciFit Pro- II Ergometer and SciFit Lateral Combine Inspector Nutrition - 30-Day Assessment Program Goals Nutrition Program Goals Patient has diagnosis of Hyperlipidemia (ICD E78)?: Yes Visit Date of Eval: 03/13/25 (Pt has not started rehab yet due to GI bleed/anemia.) Cholesterol/Lipids (Other Core Measures) Determine presence & major risk factors that modify LDL goal: Cigarette smoking, Hypertension or hypertensive medication, Low HDL cholesterol <40 mg/dL*, Family history of premature CHD in Male < 55 years: female <65 yearsFa and Age men > 45 years; women >/= 55 years Outcomes/Goals: Pt IDs own risk factors & lifestyle modifications by Session 10, Verbalizes symptoms of angina & response by session 3., Pt independently manages and Other Additional Outcomes/Goals: Intervention/Plan: Advocate for lipid panel cholesterol medication if applicable, Instruct on personal lipid levels & lipid goals/NCEP guidelines, Instruct on cholesterol and Other additional plan/int Diabetes (Other Core Measures) Diabetes Type: Not Applicable Weight Mgt (Other Care) Height: 5 ft 7 in Weight:: 158 lb BMI: 24.7 Diagnosis Overweight/Obesity BMI> 30% ICD-10 E66: No Diagnosis High BMI/Morbid Obesity BMI> 35% ICD-10 Z68: No Outcomes/Goals: Pt sets, maintains & shows weight loss goal & trend during rehab and Other additional outcomes/goals Intervention/Plan: Instruct on ideal BMI & set weight loss goal w/patient, Assist pt to ID & incorporate diet changes for weight loss by S9, Refer to Structured Weight Loss program as appropriate, Encourage goal of using 250- 300dcal per session for weight loss and Other additional plan/interventions Healthy Eating Habits Will attend diet classes:: Yes Outcomes/Goals:: Consume diet rich in vegs,fruits,whole grain/high fiber,fish,lean meat, Limit sat/trans fats,cholesterol & added salts & sugars and Other additional outcome/goals: Intervention/Plan:: Assess current eating habits and Other Additional plan/interventions Education Gave educational materials for:: Signs & symptoms of hypoglycemia, Signs & symptoms of hyperglycemia, Relate diabetes to coronary artery disease and Healthy eating Nutrition - 60-Day Assessment Weight Mgt (Other Care) Height: 5 ft 7 in Weight:: 158 lb BMI: 24.7 Core - 30-Day Assessment Visit Date of Eval: 03/13/25 (Pt has not started rehab yet due to GI bleed/anemia.) Medication Compliance Preventative Medication(s):: Aspirin, CT inhibitor, Ticagrelor/P2Y12 inhibitor and Beta brandy H/O mental health issues: depression, anxiety, or addiction?: No Doesn?t believe in the benefits of treatment?: No Believes medications are unnecessary or harmful?: No Has a concern about medication side effects?: No Expresses concern over the cost of medications?: No Outcomes/Goals: Verbalizes medications,desired effect & common side effects @ DC, Pt self-reports following medication regimen, Keeps card in wallet w/medications listed by DC and Other additional outcome/goals: Interventions/plans: Instruct on medication effects & side effects, Review med ication list w/patient every two weeks, Instruct importance of taking meds as ordered & assist problem solving and Other additional Tobacco Use Tobacco Use: Cigarettes How many cigarettes do you smoke per day?: 10 Years Smokin Outcomes/Goals: Smoking cessation achieved or maintained by discharge, Identify aids/strategies for achieving smoking cessation by session 6 and Other additional outcome/goals Interventions/plan: Instruct on effects of smoking & provide smoking cessation resource, Assist pt to set quit date & provide encouragement, Assist pt to develop strategies to achieve/maintain quit date, Assist pt w/nicotine replacement & medication for cessation success and Other additional plan/interventions Psychosocial - 30-Day Assess VIsit Date of Eval: 03/13/25 History of previous Mental disease:: No Target Goals Target Goals Psychosocial Test Tool Used:: [employer] QOL Cardiac and PHQ-9 Questionnaire phq-9 Severity See PHQ-9 Score: 3 Referral to Behavioral Health PS - Interventions: Yes: Attend Stress Management Classes Outcomes/Goals: See list Psychosocial Outcomes/Goals:: ID's personal stressors & 2 strategies to manage stress by discharge and Other Additional outcome/goals: Intervention/Plan: See List Interventions/Plan:: Assess stressors,coping strategies & signs of derpression on admission, Instruct/assist pt to develop coping & personal stress Mgt strategies, Refer to Behavioral Health if appropriate, Refer to Physician if appropriate, Instruct patient to recognize signs & symptoms of depression, Instruct patient to recog and Other additional plan/intervention Psychosocial - 60-Day Assess Target Goals Target Goals Referral to Behavioral Health PS - Interventions: Yes: Attend Stress Management Classes Outcomes/Goals: See list Psychosocial Outcomes/Goals:: ID's personal stressors & 2 strategies to manage stress by discharge and Other Additional outcome/goals: Psychosocial - 90-Day Assess Target Goals Target Goals Referral to Behavioral Health PS - Interventions: Yes: Attend Stress Management Classes Psychosocial - Final Assessmen Target Goals Target Goals Referral to Behavioral Health PS - Interventions: Yes: Attend Stress Management Classes Nutrition - 90-Day Assessment Weight Mgt (Other Care) Height: 5 ft 7 in Weight:: 158 lb BMI: 24.7 Nutrition - Final Assessment Weight Mgt (Other Care) Height: 5 ft 7 in Weight:: 158 lb BMI: 24.7
[2025-03-13 07:09] VITALS: BMI 24.7
== END | disposition home or self-care (01) ==
LOC: LAB 09:11
PROVIDERS: Referring Provider Internal Medicine Gastroenterology; Visit Provider Internal Medicine Gastroenterology
DX: D64.9 Anemia, unspecified (principal)
CPT/HCPCS: 36415; 85025

== ENCOUNTER 2025-03-18 04:58 | Emergency (ER) | payer MEDICARE, SELFPAY ==
[2025-03-13 07:09] VITALS: BMI 24.7
[2025-03-18] VITALS (8 sets, daily range): BP systolic 116–145; BP diastolic 47–70; PULSE 77–89; RESP 12–21; TEMP 36.4–36.8; O2SAT 96–100; BMI 24.6
[2025-03-18 06:11] LABS: Absolute Neutrophil Count 5.8 X10^3/uL (2.0-7.7); Basophil% 1.2 % (0-1); Eosinophil# 0.26 X10^3/uL; Eosinophils% 3.2 % (0-5); Hematocrit 23.4 % (37-47); Lymphocyte % 18.4 % (19-41); Mean Corp Hgb Conc 29.9 g/dL (32-36); Mean Corpuscular Hgb 30.6 pg (27.0-32.0); Mean Corpuscular Volume 102.2 fL (81-99); Mean Platelet Vol. 10.3 fl (6.2-12.0); Monocyte% 6.1 % (0-10); NRBC Flagged by Analyzer 0 % (0-5); Neutrophil # 5.77 X10^3/uL (2.7-7.7); Neutrophil % 70.6 % (47-70); POSITIVE MORPHOLOGY YES; Platelet Count 234 K/mm3 (150-450); RBC Distribution Width CV 18.1 % (11.6-14.6); RBC Distribution Width SD 67.1 fl (35.1-43.9); Red Blood Count 2.29 M/mm3 (4.2-5.4); White Blood Count 8.2 K/mm3 (4.4-11.0)
[2025-03-18 06:17] LABS: Differential Indicated SCAN CRITERIA MET
[2025-03-18 06:36] LABS: AST(SGOT) 11 U/L (<=31); Alanine Aminotransfer ALT/SGPT 15 U/L (<=34); Albumin, Serum 3.8 g/dL (3.4-4.8); Alkaline Phosphatase 62 U/L (35-104); Anion Gap 12 (5-15); BUN 24 mg/dL (4-19); BUN/Creat Ratio 23.8 RATIO (10-20); Bilirubin, Direct 0.12 mg/dL (0.00-0.30); Calcium,Total 9.4 mg/dL (7.6-11.0); Carbon Dioxide 21.2 mmol/L (21.0-32.0); Chloride 107 mmol/L (98-108); Creatinine, Serum 1.01 mg/dL (0.70-1.20); EST Glomerular Filtration Rate 61 (>60); Estimated Creatinine Clearance 52.56 ml/min (50-250); Globulin 2.3 g/dL (2.2-4.2); Glucose 108 mg/dL (70-99); Lipase 49 U/L (13-75); Potassium 3.9 mmol/L (3.3-5.1); Protein, Total 6.1 g/dL (5.9-8.4); Sodium Level 141 mmol/L (133-145); Total Bilirubin 0.24 mg/dL (0.00-1.30)
[2025-03-18 07:05] LABS: Anisocytosis RARE
--- NOTE | 2025-03-18 08:08 | EX.ED.DYSGE1 ---
HPI History of Present Illness Chief Complaint: Shortness of Breath Informant: patient Narrative Narrative: 65-year-old female presenting to the emergency room chief complaint of fatigue and shortness of breath. Patient states that whenever she exerts herself tonight she feels more short of breath than normal and because of her fatigue and recent history of GI bleeding is concerned that her hemoglobin has dropped again. Patient has a history of coronary artery disease and recently underwent PCI/cardiac catheterization. She has had several recent admissions for anemia felt to be due to bleeding from the small bowel. She has been following with Dr. Huynh as an outpatient as well as an inpatient. She has had recent EGD and colonoscopy and most recently underwent capsule endoscopy. This demonstrated 3 areas of bleeding per reports. Patient continues to note black tarry stools but no marlyn blood. She is on oral iron. [facility] Medical History Anemia GERD (gastroesophageal reflux disease) Smoker CPAP (continuous positive airway pressure) dependence Non-ST elevation [place] (NSTEMI) Hematuria UTI (urinary tract infection) Hyperlipidemia Atherosclerosis of coronary artery of [place] heart without angina pectoris Myocardial infarct Home Medications ?Medication ?Instructions ?Recorded ?Last Taken ?Type aspirin 81 mg tablet,delayed 81 mg PO DAILY@[address] [facility] 10/11/24 02/18/25 Rx release 90 days #90 tabs atorvastatin 40 mg tablet 40 mg PO QHS cholesterol 90 days 10/26/24 02/17/25 Rx #90 tabs metoprolol succinate 25 mg 25 mg PO DAILY heart 90 days #90 10/26/24 02/21/25 Rx tablet,extended release 24 hr tabs (Toprol XL) ticagrelor 90 mg tablet (Brilinta) 90 mg PO BID blood thinner 90 days 10/26/24 02/18/25 Rx #180 tabs albuterol sulfate 90 mcg/actuation 2 puff inhalation Q4H PRN PRN 02/06/25 Unknown Rx aerosol inhaler (Ventolin HFA) Wheezing ##1 ascorbate calcium (vitamin C) 500 1 g PO DAILY vitamin 02/06/25 02/05/25 History mg tablet ondansetron 4 mg disintegrating 4 mg PO Q6H PRN PRN Nausea #15 tabs 02/06/25 02/17/25 Rx tablet nitroglycerin 0.4 mg sublingual 0.4 mg sublingual Q5-15M PRN chest 02/07/25 Unknown Rx tablet pain #25 tabs pantoprazole 40 mg tablet,delayed 40 mg PO DAILY reflux #90 tabs 02/22/25 Unknown Rx release (Protonix) polysaccharide iron complex 150 mg 150 mg PO DAILY supplement 90 days 02/22/25 Unknown Rx iron capsule (Ferrex) #90 caps omeprazole 40 mg capsule,delayed 40 mg PO DAILY reflux 03/03/25 Unknown History release Allergy/AdvReac Type Severity Reaction Status Date / Time Penicillins Allergy Hives Verified 03/03/25 02:22 Sulfa (Sulfonamide AdvReac Diarrhea Verified 03/03/25 02:22 Antibiotics) Family History Father CAD (coronary artery disease) CABG age 68; CVA (cerebral vascular accident) Myocardial infarction Mother Cancer Cervical, Melanoma, Colon Surgical History Status post cardiac surgery History of coronary artery stent placement History of carpal tunnel surgery of left wrist History of coronary artery stent placement (02/04/25) Social History household members: spouse housing: house Smoking Status: Current every day smoker tobacco type: cigarettes second hand exposure: No ROS ROS ED ROS Narrative Generalized fatigue Constitutional Constitutional ED: Denies chills, fever(s) or weight loss Eyes Eyes: Denies change in vision or diplopia ENT ENT ED: Denies ear pain, rhinorrhea or sore throat Cardiovascular Cardiovascular: Denies chest pain, orthopnea, palpitations or racing heartbeat Respiratory/Chest Respiratory/Chest: Reports dyspnea on exertion; Denies cough, dyspnea or orthopnea Gastrointestinal Gastrointestinal: Denies abdominal pain, diarrhea, nausea or vomiting Genitourinary Genitourinary ED: Denies dysuria, hematuria or urinary frequency Musculoskeletal Musculoskeletal: Denies arthralgias or myalgias Integumentary Denies abscess or rash Neurologic Neurologic: Denies headache(s) or weakness Psychiatric Psychiatric: Denies anxiety, depression, suicidal ideation or suicidal thoughts Endocrine Endocrinology: Denies polydipsia, polyphagia or polyuria Allergic/Immunologic Allergic/Immunologic ED: Denies mouth swelling, tongue swelling or urticaria EXAM Physical Exam Const Vital Signs: 03/18/25 04:58 03/18/25 05:02 03/18/25 06:22 Temperature 97.6 F L Temperature Source Oral Pulse Rate 88 89 Respiratory Rate 12 18 Respiratory Effort Normal Non-Labored Respiratory Depth Normal Respiratory Pattern Normal Blood Pressure 145/54 H 116/60 Blood Pressure Mean 84 78 Pulse Ox 100 97 Oxygen Delivery Method Room Air Room Air Room Air Positive well nourished and well developed General Appearance ED: well developed HEENT Reports normocephalic, head/scalp atraumatic and moist mucous membranes Eyes PERRL and EOMs intact bilaterally General Eye ED: Negative for pale conjunctiva Neck no lymphadenopathy, supple and no JVD Resp normal respiratory effort and clear to auscultation bilaterally Cardio regular rate, regular rhythm and no murmurs GI normal to inspection, nondistended, normoactive bowel sounds and non-tender Palpation: soft Back/Spine no CVA tenderness and normal ROM Extremity normal to inspection Extremity Narrative: Patient has palmar erythema General Extremety ED: Negative for edema General Extremity: Negative for edema Neuro oriented x3 and CN's II-XII intact bilaterally Sensorium / Orientation: alert Motor Exam: strength 5/5 throughout Psych mental status grossly normal Mood & Affect: Negative for depressed or tearful Skin no rashes or lesions noted and no wounds MDM MDM MDM Narrative Medical decision making narrative: Differential diagnosis includes but not limited to small bowel bleeding/upper GI bleeding acute blood loss anemia coronary artery disease acute kidney injury I reviewed the patient's recent admissions as well as procedures including the capsule endoscopy. Her hemoglobin currently is 7 with a platelet count of 234 white count of 8.2. Normal creatinine 1.01 BUN of 24 normal LFTs and lipase. She has been typed and crossed for 1 unit. I spoke with her ladder operator Dr. Huynh who recommends transfer due to our inability to do small bowel procedures that she needs. She had been previously referred to and has not yet had an appointment. She states she is waiting on a phone call back. I spoke with the ladder operator on-call for she does not feel that the patient needs to be transferred. He recommends transfusion and for her to call the office tomorrow and they can see her this week. To help expedite the patient's care I did print off a copy of her capsule endoscopy as well as recent EGD colonoscopy cardiac catheterization and last office note that I have access to. I spoke with the patient regarding this as she is hemodynamically stable she is comfortable with this plan. History & Record Review Discussion w/independent historian: Patient Additional record(s) reviewed:: Prior inpatient record, Prior outpatient record, Prior ED visit and Prior labs Lab Data Attestation: I reviewed the patient's lab results. Labs: Laboratory Results - last 24 hr 03/18/25 03/18/25 05:15 06:36 WBC 8.2 RBC 2.29 L Hgb 7.0 L Hct 23.4 L MCV 102.2 H MCH 30.6 MCHC 29.9 L RDW Std Deviation 67.1 H RDW Coeff of Gerber 18.1 H Plt Count 234 MPV 10.3 Immature Gran % (Auto) 0.500 Neut % (Auto) 70.6 H Lymph % (Auto) 18.4 L Schuyler % (Auto) 6.1 Eos % (Auto) 3.2 Baso % (Auto) 1.2 H Absolute Neuts (auto) 5.8 Absolute Lymphs (auto) 1.50 Nucleated RBC % 0 Anisocytosis RARE Sodium 141 Potassium 3.9 Chloride 107 Carbon Dioxide 21.2 Anion Gap 12 BUN 24 H Creatinine 1.01 Estim Creat Clear Calc 52.56 Est GFR (MDRD) Non-Af 61 BUN/Creatinine Ratio 23.8 H Glucose 108 H Calcium 9.4 Total Bilirubin 0.24 Direct Bilirubin 0.12 AST 11 ALT 15 Alkaline Phosphatase 62 Total Protein 6.1 Albumin 3.8 Globulin 2.3 Lipase 49 Blood Type A NEGATIVE Antibody Screen NEGATIVE Crossmatch See Detail Management Discussion w/another healthcare provider: [employer] (Dr. Huynh ([facility]) /on-call gastroenterology) Discharge Plan Triage Chief Complaint: Shortness of Breath ED Provider: Inderjit Gilmore Dx/Rx/DC Orders Prescriptions: No Action metoprolol succinate [Toprol XL] 25 mg tablet extended release 24 hr 25 mg PO DAILY 90 Days Qty: 90 3RF ticagrelor [Brilinta] 90 mg tablet 90 mg PO BID 90 Days Qty: 180 3RF atorvastatin 40 mg tablet 40 mg PO QHS 90 Days Qty: 90 3RF nitroglycerin 0.4 mg tablet, sublingual 0.4 mg sublingual Q5-15M PRN (Reason: chest pain) Qty: 25 3RF Rx Instructions: do not exceed 3 doses per episode aspirin 81 mg Tablet,Delayed Release (Dr/Ec) 81 mg PO DAILY@0800 90 Days Qty: 90 3RF ascorbate calcium (vitamin C) 500 mg tablet 1 g PO DAILY albuterol sulfate [Ventolin HFA] 90 mcg/actuation HFA aerosol inhaler 2 puff inhalation Q4H PRN PRN (Reason: Wheezing) Qty: 1 0RF Rx Instructions: with spacer ondansetron 4 mg tablet,disintegrating 4 mg PO Q6H PRN PRN (Reason: Nausea) Qty: 15 0RF polysaccharide iron complex [Ferrex 150] 150 mg iron Capsule 150 mg PO DAILY 90 Days Qty: 90 0RF pantoprazole [Protonix] 40 mg tablet,delayed release (DR/EC) 40 mg PO DAILY Qty: 90 0RF omeprazole 40 mg capsule,delayed release(DR/EC) 40 mg PO DAILY Primary Care Provider: Florin Bailey Referrals: Florin Bailey DO [Primary Care Provider] - Print Language: [place]
== END 2025-03-18 10:38 | disposition home or self-care (01) ==
PROVIDERS: Emergency Provider Emergency Medicine; Visit Provider Emergency Medicine
DX: D50.0 Iron deficiency anemia secondary to blood loss (chronic) (principal); R06.02 Shortness of breath; I25.10 Atherosclerotic heart disease of native coronary artery without angina pectoris; I25.2 Old myocardial infarction; E78.5 Hyperlipidemia, unspecified; F17.210 Nicotine dependence, cigarettes, uncomplicated; Z95.5 Presence of coronary angioplasty implant and graft; Z79.02 Long term (current) use of antithrombotics/antiplatelets; Z79.82 Long term (current) use of aspirin; Z79.899 Other long term (current) drug therapy
CPT/HCPCS: 80048; 80076; 83690; 85025; 86850; 86900; 86901; 86920; 86922; 99283; P9016; A4216

== ENCOUNTER 2025-03-25 09:06 | Outpatient (RCR) | payer MEDICARE, SELFPAY ==
[2025-03-13 07:09] VITALS: BMI 24.7
--- NOTE | 2025-04-09 06:59 | CR.ITP_ITS ---
Exercise - Initial Assessment Physician Prescribed Exercise Modalities: Treadmill, Rower, Schwinn Airdyne AD-7, SciFit Stepper, SciFit Pro- II Ergometer and SciFit Lateral [place] Fat Puller Nutrition - Initial Assessment Weight Mgt (Other Care) Height: 5 ft 7 in Weight:: 158 lb BMI: 24.7 Psychosocial - Initial Assess Target Goals Target Goals Referral to Behavioral Health PS - Interventions: Yes: Attend Stress Management Classes Nutrition Survey Nutrition Survey Instructions Scoring Instructions Exercise - 30-day Assessment Physician Prescribed Exercise Modalities: Treadmill, Rower, Schwinn Airdyne AD-7, SciFit Stepper, SciFit Pro- II Ergometer and SciFit Lateral [place] Exercise - 60-day Assessment Visit Date of Eval: 04/09/25 (Pt has not been able to start CR due to other health issues. Pt plans on starting 05/06/25.) Physician Prescribed Exercise Modalities: Treadmill, Rower, Schwinn Airdyne AD-7, SciFit Stepper, SciFit Pro- II Ergometer and SciFit Lateral [place] Fat Puller Frequency: 3x/week for 12 weeks [36 sessions] Intensity: 60-80% of age predicted maximum heart rate reserve Duration: 30 - 45 minutes Current METSs:: 3 Target Heart Rate:: 92-116 Outcomes & Goals Goals:: Verbalizes understanding of THR, RPE & goal METS by session 6, Documents in home exercise log/reports 30 min aerobic 5 day/wk by DC, Demonstrates accurate pulse taking by DC and Other additional outcome/goals: see below Intervention & Plan Exercise Program Goals: Instruct on personal THR & RPE, Instruct on MET level & personal MET goal, Show patient to take own pulse /validate performance until accurate, Instruct on home exercise and Other additional plan/int 30-day Reassessments 30 day Reassessments:: Not Met Physical Activity Home Exercise Physical Activity - Home Exercise: Safe Exercise, Warm-up, Self-monitoring, Cool-Down, Home Exercise > 30 min Daily and Sitting Time <3 hours/daily Outcomes & Goals Outcomes/Goals: Demonstrates correct Warm-up/exercise Cool-Down (S3) if = 2.5 METs, Verbalizes symptoms of exercise intolerance by Session 3 (S3), Demonstrate safe equipment use (S3) & follows exercise prescrition (6) and Other: See below Intervention & Plan Plan/Intervention: Instruct warm-up & cool-down if exercising at > 2 METs, Instruct on symptoms of exercise intolerance & actions to take, Instruct & monitor on saf, Assess intial functional capacity & safety risk and Other See below 30-day Reassessments 30 day Reassessments:: Not Met Exercise - 90-day Assessment Physician Prescribed Exercise Modalities: Treadmill, Rower, Schwinn Airdyne AD-7, SciFit Stepper, SciFit Pro- II Ergometer and SciFit Lateral [place] Fat Puller Exercise - Final/Discharge Physician Prescribed Exercise Modalities: Treadmill, Rower, Schwinn Airdyne AD-7, SciFit Stepper, SciFit Pro- II Ergometer and SciFit Lateral [place] Fat Puller Nutrition - 30-Day Assessment Weight Mgt (Other Care) Height: 5 ft 7 in Weight:: 158 lb BMI: 24.7 Nutrition - 60-Day Assessment Program Goals Nutrition Program Goals Patient has diagnosis of Hyperlipidemia (ICD E78)?: Yes Visit Date of Eval: 04/09/25 (Pt has not been able to start CR due to other health issues. Pt plans on starting 05/06/25.) Cholesterol/Lipids (Other Core Measures) Determine presence & major risk factors that modify LDL goal: Cigarette smoking, Hypertension or hypertensive medication, Low HDL cholesterol <40 mg/dL*, Family history of premature CHD in Male < 55 years: female <65 yearsFa and Age men > 45 years; women >/= 55 years Outcomes/Goals: Pt IDs own risk factors & lifestyle modifications by Session 10, Verbalizes symptoms of angina & response by session 3., Pt independently manages and Other Additional Outcomes/Goals: Intervention/Plan: Advocate for lipid panel cholesterol medication if applicable, Instruct on personal lipid levels & lipid goals/NCEP guidelines, Instruct on cholesterol and Other additional plan/int 30-day Reassessments:: Not Met Diabetes (Other Core Measures) Diabetes Type: Not Applicable Weight Mgt (Other Care) Height: 5 ft 7 in Weight:: 158 lb BMI: 24.7 Diagnosis Overweight/Obesity BMI> 30% ICD-10 E66: No Diagnosis High BMI/Morbid Obesity BMI> 35% ICD-10 Z68: No Outcomes/Goals: Pt sets, maintains & shows weight loss goal & trend during rehab and Other additional outcomes/goals Intervention/Plan: Instruct on ideal BMI & set weight loss goal w/patient, Assist pt to ID & incorporate diet changes for weight loss by S9, Refer to Structured Weight Loss program as appropriate, Encourage goal of using 250- 300dcal per session for weight loss and Other additional plan/interventions 30 day Reassessments:: Not Met Healthy Eating Habits Will attend diet classes:: Yes Outcomes/Goals:: Consume diet rich in vegs,fruits,whole grain/high fiber,fish,lean meat, Limit sat/trans fats,cholesterol & added salts & sugars and Other additional outcome/goals: Intervention/Plan:: Assess current eating habits and Other Additional plan/interventions 30-day Reassessments:: Not Met Education Gave educational materials for:: Signs & symptoms of hypoglycemia, Signs & symptoms of hyperglycemia, Relate diabetes to coronary artery disease and Healthy eating Core - Final Assessment Tobacco Use How many cigarettes do you smoke per day?: 10 Years Smokin Core - 60-Day Assessment Visit Date of Eval: 04/09/25 (Pt has not been able to start CR due to other health issues. Pt plans on starting 05/06/25.) Medication Compliance Preventative Medication(s):: Aspirin, CT inhibitor, Ticagrelor/P2Y12 inhibitor and Beta brandy H/O mental health issues: depression, anxiety, or addiction?: No Doesn?t believe in the benefits of treatment?: No Believes medications are unnecessary or harmful?: No Has a concern about medication side effects?: No Expresses concern over the cost of medications?: No Outcomes/Goals: Verbalizes medications,desired effect & common side effects @ DC, Pt self-reports following medication regimen, Keeps card in wallet w/medications listed by DC and Other additional outcome/goals: Interventions/plans: Instruct on medication effects & side effects, Review medication list w/patient every two weeks, Instruct importance of taking meds as ordered & assist problem solving and Other additional 30-day Reassessments:: Not Met Tobacco Use Tobacco Use: Cigarettes How many cigarettes do you smoke per day?: 10 Years Smokin Do you use smokeless tobacco?: No Outcomes/Goals: Smoking cessation achieved or maintained by discharge, Identify aids/strategies for achieving smoking cessation by session 6 and Other additional outcome/goals Interventions/plan: Instruct on effects of smoking & provide smoking cessation resource, Assist pt to set quit date & provide encouragement, Assist pt to develop strategies to achieve/maintain quit date, Assist pt w/nicotine replacement & medication for cessation success and Other additional plan/interventions 30-day Reassessments:: Not Met Tobacco Cessation Referral Education Schedule Given:: Yes Psychosocial - 30-Day Assess Target Goals Target Goals Referral to Behavioral Health PS - Interventions: Yes: Attend Stress Management Classes Outcomes/Goals: See list Psychosocial Outcomes/Goals:: ID's personal stressors & 2 strategies to manage stress by discharge and Other Additional outcome/goals: Psychosocial - 60-Day Assess VIsit Date of Eval: 04/09/25 (Pt has not been able to start CR due to other health issues. Pt plans on starting 05/06/25.) History of previous Mental disease:: No Target Goals Target Goals Psychosocial Test Tool Used:: PHQ-9 Questionnaire phq-9 Severity See PHQ-9 Score: 3 Referral to Behavioral Health PS - Interventions: Yes: Attend Stress Management Classes Outcomes/Goals: See list Psychosocial Outcomes/Goals:: ID's personal stressors & 2 strategies to manage stress by discharge and Other Additional outcome/goals: Intervention/Plan: See List Interventions/Plan:: Assess stressors,coping strategies & signs of derpression on admission, Instruct/assist pt to develop coping & personal stress Mgt strategies, Refer to Behavioral Health if appropriate, Refer to Physician if appropriate, Instruct patient to recognize signs & symptoms of depression, Instruct patient to recog and Other additional plan/intervention 30-day Reassessments: 30 day Reassessments:: Not Met Psychosocial - 90-Day Assess Target Goals Target Goals Referral to Behavioral Health PS - Interventions: Yes: Attend Stress Management Classes Psychosocial - Final Assessmen Target Goals Target Goals Referral to Behavioral Health PS - Interventions: Yes: Attend Stress Management Classes Nutrition - 90-Day Assessment Weight Mgt (Other Care) Height: 5 ft 7 in Weight:: 158 lb BMI: 24.7 Nutrition - Final Assessment Weight Mgt (Other Care) Height: 5 ft 7 in Weight:: 158 lb BMI: 24.7
[2025-04-09 07:04] VITALS: BMI 24.7
== END 2025-04-22 23:59 ==
LOC: CR 09:06
PROVIDERS: Referring Provider Specialist; Visit Provider Specialist
DX: I21.4 Non-ST elevation (NSTEMI) myocardial infarction (principal); Z95.5 Presence of coronary angioplasty implant and graft
CPT/HCPCS: 93798

== ENCOUNTER 2025-04-24 06:41 | Emergency (ER) | payer MEDICARE, SELFPAY ==
[2025-04-24] VITALS (8 sets, daily range): BP systolic 110–136; BP diastolic 57–78; PULSE 64–88; RESP 14–18; TEMP 36.6–36.9; O2SAT 94–98; BMI 24.6
--- NOTE | 2025-04-24 07:08 | ED.VIS.DYS ---
HPI History of Present Illness Chief Complaint: Shortness of Breath Informant: patient Onset/Context/Timing Onset: Today Context: gradual Timing: Intermittent Worsened by: Nothing Relieved by: Nothing Associated Symptoms Negative for cough, rhinorrhea, post nasal drip, ear pain, fever, sore throat, chills, clear sputum, white sputum, yellow sputum or green sputum Chest Pain: Positive for Intermittent and Pressure Narrative Narrative: Patient presents with shortness of breath that began today. Patient states it came on gradually this morning. Patient states it comes and goes. Patient states she has a history of anemia and states this is similar to prior episodes of anemia. Patient admits to some substernal pressure in her chest when she gets the shortness of breath. Patient denies any fevers or chills. Patient denies any cough. Patient denies any sore throat or rhinorrhea. PE Risk Factors: Negative for Cancer, OCP + Smoking + > 35, Prior DVT or PE, Recent immobilization, Recent surgery or Recent travel [facility] Medical History Anemia GERD (gastroesophageal reflux disease) Smoker CPAP (continuous positive airway pressure) dependence Non-ST elevation [place] (NSTEMI) Hematuria UTI (urinary tract infection) Hyperlipidemia Atherosclerosis of coronary artery of [place] heart without angina pectoris Myocardial infarct Home Medications ?Medication ?Instructions ?Recorded ?Last Taken ?Type aspirin 81 mg tablet,delayed 81 mg PO DAILY@0800 heart health 10/11/24 02/18/25 Rx release 90 days #90 tabs atorvastatin 40 mg tablet 40 mg PO QHS cholesterol 90 days 10/26/24 02/17/25 Rx #90 tabs metoprolol succinate 25 mg 25 mg PO DAILY heart 90 days #90 10/26/24 02/21/25 Rx tablet,extended release 24 hr tabs (Toprol XL) albuterol sulfate 90 mcg/actuation 2 puff inhalation Q4H PRN PRN 02/06/25 Unknown Rx aerosol inhaler (Ventolin HFA) Wheezing ##1 ascorbate calcium (vitamin C) 500 1 g PO DAILY vitamin 02/06/25 02/05/25 History mg tablet ondansetron 4 mg disintegrating 4 mg PO Q6H PRN PRN Nausea #15 tabs 02/06/25 02/17/25 Rx tablet nitroglycerin 0.4 mg sublingual 0.4 mg sublingual Q5-15M PRN chest 02/07/25 Unknown Rx tablet pain #25 tabs pantoprazole 40 mg tablet,delayed 40 mg PO DAILY reflux #90 tabs 02/22/25 Unknown Rx release (Protonix) clopidogrel 75 mg tablet 75 mg PO QDAY #90 tabs 04/05/25 Unknown Rx polysaccharide iron complex 150 mg 150 mg PO QDAY 04/05/25 Unknown History iron capsule furosemide 40 mg tablet (Lasix) 40 mg PO QAM #30 tabs 04/09/25 Unknown Rx Allergy/AdvReac Type Severity Reaction Status Date / Time Penicillins Allergy Hives Verified 04/24/25 06:43 Sulfa (Sulfonamide AdvReac Diarrhea Verified 04/24/25 06:43 Antibiotics) Family History Father CAD (coronary artery disease) CABG age 68; CVA (cerebral vascular accident) Myocardial infarction Mother Cancer Cervical, Melanoma, Colon Surgical History Status post cardiac surgery History of coronary artery stent placement History of carpal tunnel surgery of left wrist History of coronary artery stent placement (02/04/25) Social History household members: spouse housing: house Smoking Status: Current every day smoker tobacco type: cigarettes Tobacco: How many years used: 30 second hand exposure: No alcohol intake: never ROS ROS ED Constitutional Constitutional ED: Denies chills or fever(s) Eyes Eyes: Denies blurry vision or change in vision ENT ENT ED: Denies rhinorrhea or sore throat Cardiovascular Cardiovascular: Reports chest pain; Denies palpitations Respiratory/Chest Respiratory/Chest: Reports dyspnea; Denies cough Gastrointestinal Gastrointestinal: Denies nausea or vomiting Genitourinary Genitourinary ED: Denies dysuria or hematuria Musculoskeletal Musculoskeletal: Denies back pain or neck pain Integumentary Denies abscess or rash Neurologic Neurologic: Denies headache(s) or weakness Allergic/Immunologic Allergic/Immunologic ED: Denies mouth swelling or urticaria EXAM Physical Exam Const Vital Signs: 04/24/25 06:41 04/24/25 06:41 04/24/25 07:43 Temperature 98.4 F Temperature Source Oral Pulse Rate 88 82 Pulse Rate [Lying] Pulse Rate [Sitting (for 1 minute prior to obtaining)] Pulse Rate [Standing (for 1 minute prior to obtaining)] Respiratory Rate 18 18 Respiratory Effort Short of Breath Blood Pressure 133/71 H 123/63 H Blood Pressure [Lying] Blood Pressure [Sitting (for 1 minute prior to obtaining)] Blood Pressure [Standing (for 1 minute prior to obtaining)] Blood Pressure Mean 91 83 Blood Pressure Mean [Lying] Blood Pressure Mean [Sitting (for 1 minute prior to obtaining)] Blood Pressure Mean [Standing (for 1 minute prior to obtaining)] Pulse Ox 97 98 Oxygen Delivery Method Room Air 04/24/25 08:00 04/24/25 08:12 04/24/25 09:00 Temperature Temperature Source Pulse Rate 64 87 Pulse Rate [Lying] 76 Pulse Rate [Sitting (for 1 minute prior to obtaining)] 82 Pulse Rate [Standing (for 1 minute prior to obtaining)] 85 Respiratory Rate 18 18 Respiratory Effort Blood Pressure 136/78 H 115/62 Blood Pressure [Lying] 110/57 L Blood Pressure [Sitting (for 1 minute prior to obtaining)] 114/64 Blood Pressure [Standing (for 1 minute prior to obtaining)] 120/63 Blood Pressure Mean 97 79 Blood Pressure Mean [Lying] 74 Blood Pressure Mean [Sitting (for 1 minute prior to obtaining)] 80 Blood Pressure Mean [Standing (for 1 minute prior to obtaining)] 82 Pulse Ox 98 94 Oxygen Delivery Method Room Air Room Air 04/24/25 10:00 Temperature Temperature Source Pulse Rate 72 Pulse Rate [Lying] Pulse Rate [Sitting (for 1 minute prior to obtaining)] Pulse Rate [Standing (for 1 minute prior to obtaining)] Respiratory Rate 14 Respiratory Effort Blood Pressure 115/62 Blood Pressure [Lying] Blood Pressure [Sitting (for 1 minute prior to obtaining)] Blood Pressure [Standing (for 1 minute prior to obtaining)] Blood Pressure Mean 79 Blood Pressure Mean [Lying] Blood Pressure Mean [Sitting (for 1 minute prior to obtaining)] Blood Pressure Mean [Standing (for 1 minute prior to obtaining)] Pulse Ox 95 Oxygen Delivery Method Room Air Positive well nourished and well developed General Appearance ED: well developed and NAD HEENT Reports moist mucous membranes atraumatic Neck supple, no meningeal signs and no JVD Resp normal respiratory effort and clear to auscultation bilaterally Cardio regular rate and regular rhythm GI non-tender and non-distended Palpation: soft Extremity normal to inspection Neuro oriented x3, CN's II-XII intact bilaterally and no sensory deficits noted [address] Coma Scale: document GCS findings Spontaneous Obeys Commands Oriented 15 Sensorium / Orientation: alert Speech: speech normal Motor Exam: strength 5/5 throughout Psych mental status grossly normal MDM MDM MDM Narrative Medical decision making narrative: Differential diagnosis includes anemia, pneumonia, bronchitis, congestive heart failure, electrolyte abnormality, cardiac dysrhythmia, and cardiac ischemia. EKG will be obtained to assess for cardiac dysrhythmia and cardiac ischemia. Chest x-ray will be obtained to assess for pneumonia or bronchitis and congestive heart failure. CBC will be obtained to assess for leukocytosis and anemia. Basic metabolic profile will be obtained to assess for electrolyte abnormality and renal function. High-sensitivity troponin will be obtained to assess for cardiac ischemia. 2-hour repeat high-sensitivity troponin will be obtained to assess for ongoing cardiac ischemia. History & Record Review Additional record(s) reviewed:: Prior outpatient record, Prior ED visit and Prior labs Lab Data Attestation: I reviewed the patient's lab results. Lab results narrative: CBC was reviewed. There is a mild anemia with a hemoglobin of 10.0 and hematocrit of 31.7. This was increased from previous results. Basic metabolic profile was reviewed. BUN was slightly elevated at 22. The remainder is within normal limits. PT with INR and PTT were reviewed and were within normal limits. High-sensitivity troponin was reviewed and was normal at 13. 2-hour repeat high-sensitivity troponin was reviewed and was normal at 13. Labs: Laboratory Results - last 24 hr 04/24/25 04/24/25 06:49 08:58 WBC 10.8 RBC 3.28 L Hgb 10.0 L Hct 31.7 L MCV 96.6 MCH 30.5 MCHC 31.5 L RDW Std Deviation 58.4 H RDW Coeff of Ger[place] 16.2 H Plt Count 197 MPV 10.3 Immature Gran % (Auto) 0.400 Neut % (Auto) 75.0 H Lymph % (Auto) 15.2 L [place] % (Auto) 6.0 Eos % (Auto) 2.4 Baso % (Auto) 1.0 Absolute Neuts (auto) 8.1 H Absolute Lymphs (auto) 1.64 Nucleated RBC % 0 PT 13.5 INR 1.0 APTT 27.7 Sodium 140 Potassium 3.7 Chloride 106 Carbon Dioxide 20.3 L Anion Gap 14 BUN 22 H Creatinine 1.11 Estim Creat Clear Calc 47.83 L Est GFR (MDRD) Non-Af 54 L BUN/Creatinine Ratio 19.7 Glucose 106 H Calcium 9.1 Troponin T High Sens 13 D Troponin T Hi Sens 2 Hr 13 Radiography Chest X-Ray - ED: 2 View, Read by ED Physician, Read by Radiologist, No Acute Disease and Chronic Changes Diagnostic Testing: Clinical Impression(s) from Imaging Studies Chest X-Ray 04/24/25 07:43 IMPRESSION: Chronic lung changes and hyperinflation are again noted. No focal infiltrate is seen. No pleural effusion is clearly evident. No pneumothorax is seen. The cardiomediastinal silhouette is stable, without evidence of cardiomegaly. Moderate degenerative changes of the thoracic spine are noted. No acute osseous process is evident. Reading Location: [place] [id number] [place] and lateral chest x-ray was obtained. There are 2 views. On my independent interpretation, lung jimenez show chronic changes. There is normal cardiac silhouette. Bony thorax shows some degenerative changes of the thoracic spine. There is no acute process noted. Radiologist also interpreted the x-ray and agrees. EKG Initial EKG: Attestation: I personally reviewed and interpreted this EKG as follows: Interpretation: Sinus Rhythm (85) and No Acute Injury Pattern Comments: EKG was obtained. On my independent interpretation, it showed a normal sinus rhythm with a rate of 85 with occasional PVCs. [place] interval, QRS interval, and QTc intervals were all normal. [place] was normal. There are no acute ST or T wave changes. Prior EKG tracings: available for review Prior: Unchanged (03/03/2025) Treatment and Re-Evaluation :: Patient was advised of her findings. Patient has a HEART score of 4 (2 for age and 2 for history of coronary artery disease). Patient was able to ambulate in the emergency department and maintain oxygen saturation of 91% on room air. I feel patient is stable to be discharged home. Patient was instructed to follow-up with her primary care physician in 3 to 5 days. Patient was instructed to return if worse in any way. Patient understood and was agreeable with the plan. All questions were answered. Discharge Plan Triage Chief Complaint: Shortness of Breath ED Provider: Clyde Swan Dx/Rx/DC Orders Clinical Impression: Dyspnea, Anemia, Tobacco abuse Instructions: ED Dyspnea Prescriptions: No Action metoprolol succinate [Toprol XL] 25 mg tablet extended release 24 hr 25 mg PO DAILY 90 Days Qty: 90 3RF atorvastatin 40 mg tablet 40 mg PO QHS 90 Days Qty: 90 3RF nitroglycerin 0.4 mg tablet, sublingual 0.4 mg sublingual Q5-15M PRN (Reason: chest pain) Qty: 25 3RF Rx Instructions: do not exceed 3 doses per episode polysaccharide iron complex 150 mg iron capsule 150 mg PO QDAY clopidogrel 75 mg tablet 75 mg PO QDAY Qty: 90 3RF furosemide [Lasix] 40 mg tablet 40 mg PO QAM Qty: 30 11RF aspirin 81 mg Tablet,Delayed Release (Dr/Ec) 81 mg PO DAILY@0800 90 Days Qty: 90 3RF ascorbate calcium (vitamin C) 500 mg tablet 1 g PO DAILY albuterol sulfate [Ventolin HFA] 90 mcg/actuation HFA aerosol inhaler 2 puff inhalation Q4H PRN PRN (Reason: Wheezing) Qty: 1 0RF Rx Instructions: with spacer ondansetron 4 mg tablet,disintegrating 4 mg PO Q6H PRN PRN (Reason: Nausea) Qty: 15 0RF pantoprazole [Protonix] 40 mg tablet,delayed release (DR/EC) 40 mg PO DAILY Qty: 90 0RF Primary Care Provider: Florin Bailey Referrals: Florin Bailey DO [Primary Care Provider] - 3-5 Days Print Language: Indonesian Disposition Disposition: Home, Self Care
--- OUTSIDE RECORDS SUMMARY | 2025-04-24 07:25 | XMS RPT_ITS | CCD ---
Author Organization [facility] Care Team Providers Care Paper Deliverer Name Role Phone DELPHINE WADSWORTH, BRANDEN Stevenson Primary Care Physician [phone] FLORIN BAILEY DO Primary Care Physician Delphine WADSWORTH, Dr. Sams Primary Care Provider [phone] Daniel WADSWORTH, Dr. Pickett Emergency Provider [phone] Josie WADSWORTH, Dr. Arellano Attending Provider Josie WADSWORTH, Dr. Arellano Referring Provider Gallo WADSWORTH, Dr. Stacy Admit Provider Gallo WADSWORTH, Dr. Stacy Other Provider Josie WADSWORTH, Dr. Arellano Other Provider Dr. Florin Bailey DO Primary Care Provider [phone] Dr. Kraig Feliz DO Attending Provider Dr. Alfredito Saucedo MD Attending Provider Dr. Kraig Feliz DO Other Provider Dr. Florin Bailey DO Referring Provider Rigoberto AVELAR-Aung Hawkins Attending Provider Aung Rush Referring Provider Aguilar WADSWORTH, Dr. Benedict Attending Provider Aguilar WADSWORTH, Dr. Benedict Emergency Provider [phone] Darren AVELAR-C, Nohemy Villalba Attending Provider Brendon WADSWORTH, Dr. Oliveira Attending Provider [phone] Brendon WADSWORTH, Dr. Oliveira Referring Provider Jayce WADSWORTH, Dr. Yang Attending Provider Jayce WADSWORTH, Dr. Yang Referring Provider Jin WADSWORTH, Dr. Perry Emergency Provider Cyndi WADSWORTH, Dr. Estrella Goins Admit Provider Cyndi WADSWORTH, Dr. Estrella Goins Attending Provider Cyndi WADSWORTH, Dr. Estrella Goins Other Provider Dagmar WADSWORTH, Dr. Patel Attending Provider Mando MORALES, Dr. Jansen Emergency Provider Leo MORALES, Dr. Catherine Primary Care Provider [phone] Josie WADSWORTH, Dr. Arellano Attending Provider Josie WADSWORTH, Dr. Arellano Referring Provider Mando MORALES, Dr. Jansen Attending Provider Luz Meyer Attending Provider Leo MORALES, Dr. Catherine Primary Care Provider [phone] Aung Rush Attending Provider Dr. Florin Bailey DO Referring Provider Nica MORALES, Dr. Osorio Emergency Provider [phone] Aaliyah WADSWORTH, Dr. Jakub Emery Admit Provider Aaliyah WADSWORTH, Dr. Jakub Emery Referring Provider Aaliyah WADSWORTH, Dr. Jakub Emery Other Provider Lino MORALES, Dr. Love Other Provider Dr. Josh Peñaloza MD Attending Provider Unavaila ble Aaliyah WADSWORTH, Dr. Jakub Emery Attending Provider Lino MORALES, Dr. Love Attending Provider Anabela WADSWORTH, Dr. Moreno Other Provider Unavailable Leo MORALES, Dr. Catherine Primary Care Provider [phone] Josie WADSWORTH, Dr. Arellano Attending Provider Josie WADSWORTH, Dr. Arellano Referring Provider Sebas GUM COOK-CLuz Referring Provider [phone] Dr. Swati Huff DO Emergency Provider Mercedes MORALES, Dr. Tang Admit Provider Dr. Clyde Long DO Attending Provider Mercedes MORALES, Dr. Tang Other Provider Loe MORALES, Dr. Catherine Primary Care Provider [phone] Rigoberto GUM COOK-C, Aung Landaverde Attending Provider Rigoberto GUM COOK-C, Aung Landaverde Referring Provider Josie WADSWORTH, Dr. Arellano Attending Provider Josie WADSWORTH, Dr. Arellano Referring Provider Aguilar WADSWORTH, Dr. Benedict Attending Provider Aguilar WADSWORTH, Dr. Benedict Emergency Provider Darren AVELAR-CNohemy Attending Provider Jayce WADSWORTH, Dr. Yang Attending Provider Jayce WADSWORTH, Dr. Yang Referring Provider Brendon WADSWORTH, Dr. Oliveira Attending Provider [phone] Florin Bailey DO Referring Provider Brendon WADSWORTH, Dr. Oliveira Referring Provider Jin WADSWORTH, Dr. Perry Emergency Provider Cyndi WADSWORTH, Dr. Estrella Goins Admit Provider Cyndi WADSWORTH, Dr. Estrella Goins Attending Provider Cyndi WADSWORTH, Dr. Estrella Goins Other Provider Dagmar WADSWORTH, Dr. Patel Attending Provider Dr. Inderjit Gilmore DO Attending Provider Dr. Inderjit Gilmore DO Emergency Provider Luz Meyer Attending Provider Dr. Devon Yousif DO Emergency Provider Aaliyah WADSWORTH, Dr. Jakub Emery Admit Provider Aaliyah WADSWORTH, Dr. Jakub Emery Referring Provider Aaliyah WADSWORTH, Dr. Jakub Emery Other Provider Lino MORALES, Dr. Love Other Provider Anabela WADSWORTH, Dr. Moreno Attending Provider Unavaila ble Aaliyah WADSWORTH, Dr. Jakub Emery Attending Provider Lino MORALES, Dr. Love Attending Provider Anabela WADSWORTH, Dr. Moreno Other Provider Unavailable Jin WADSWORTH, Dr. Perry Attending Provider Luz Meyer Referring Provider Dr. Swati Huff DO Emergency Provider Mercedes MORALES, Dr. Tang Admit Provider Dr. Clyde Long DO Attending Provider Dr. Clyde Long DO Other Provider Dr. Florin Bailey DO Primary Care Provider [phone] Aung Rush Referring Provider Aung Rush Attending Provider Lino MORALES, Dr. Love Referring Provider Dr. Clyde Long DO Referring Provider Henri WADSWORTH, Dr. Verduzco Attending Provider Dr. Dax Álvarez MD Referring Provider Dr. Florin Bailey DO Primary Care Provider [phone] Josie WADSWORTH, Dr. Arellano Attending Provider Josie WADSWORTH, Dr. Arellano Referring Provider BAILEY, FLORIN E Primary Care Unavailable OLASEHINDE, KENA O Admitting Unavailab le MEMEE, KENA O Attending Unavailab NOHEMY Del Castillo Referring Unavailable BAILEY, FLORIN E Primary Care Unavailable Leo MORALES, Dr. Catherine Primary Care Provider [phone] Josie WADSWORTH, Dr. Arellano Attending Provider Josie WADSWORTH, Dr. Arellano Referring Provider Bailey DO, Florin E Primary Care Provider BAILEY DO, FLORIN E Primary Care Unavailable BAILEY DO, FLORIN E Attending Unavailable BAILEY DO, FLORIN E Primary Care Unavailable BAILEY DO, FLORIN E Attending Unavailable BAILEY DO, FLORIN E Attending Unavailable BAILEY DO, FLORIN E Primary Care Unavailable BAILEY DO, FLORIN E Attending Unavailable BAILEY DO, FLORIN E Primary Care Unavailable BAILEY DO, FLORIN E Attending Unavailable BAILEY DO, FLORIN E Primary Care Unavailable BAILEY DO, FLORIN E Attending Unavailable BAILEY DO, FLORIN E Primary Care Unavailable BAILEY DO, FLORIN E Primary Care Unavailable JANES DOUBLE END CHUCKING MACHINE OPERATOR-GAMBLING FLOOR SUPERVISOR, CHAI Coreas Attending Unavai lable BAILEY DO, FLORIN E Primary Care Unavailable BALTES DOUBLE END CHUCKING MACHINE OPERATOR-GAMBLING FLOOR SUPERVISOR, MARQUITA Attending Unavailabl e BAILEY DO, FLORIN E Primary Care Unavailable BALTES DOUBLE END CHUCKING MACHINE OPERATOR-GAMBLING FLOOR SUPERVISOR, MARQUITA Attending Unavailabl e BAILEY DO, FLORIN E Primary Care Unavailable SHIRIN DOUBLE END CHUCKING MACHINE OPERATOR-GAMBLING FLOOR SUPERVISOR, MATTIE Attending Unavai lable BAILEY DO, FLORIN E Primary Care Unavailable DR TOM WILLIS DO Attending Unavailabl e BAILEY DO, FLORIN E Attending Unavailable BAILEY DO, FLORIN E Primary Care Unavailable BAILEY DO, FLORIN E Attending Unavailable BAILEY DO, FLORIN E Primary Care Unavailable BAILEY DO, FLORIN E Primary Care Unavailable BAILEY DO, FLORIN E Attending Unavailable BAILEY DO, FLORIN E Primary Care Unavailable BOLA SANTOS DO Attending Unavailable Leo MORALES, Dr. Catherine Primary Care Provider [phone] Leo Florin Primary Care Unavailable Inderjit Gilmore Attending Unavailable Leo, Florin Primary Care Unavailable Roxanne Olivas Attending Unavailable Roxanne Olivas Referring Unavailable Bailey, Florin Primary Care Unavailable Nohemy Banks Attending Unavailable [facility] Unavailable Nagajothi, Nagapradee Referring Unavailabl e Nagajothi, Nagapradee Attending Unavailabl e Tawanna Holder Admitting Unavailable Tawanna Holder Attending Unavailable Nagajothi, Nagapradee Consulting Unavailabl e Nagajothi, Nagapradee Referring Unavailabl Branden Rosenbaum [facility] Care Unavailable Tawanna Holder Consulting Unavailable [facility] Unavailable Deondre Leavitt Attending Unavailable Koram, Estrella Briseida Consulting Unavailable Koram, Estrella Briseida Admitting Unavailable Koram, Estrella Briseida Attending Unavailable [facility] Unavailable Clyde Long Admitting Unavailable Clyde Long Consulting Unavailable Clyde Long Attending Unavailable [facility] Unavailable Tawanna Holder Consulting Unavailable Nagajothi, Nagapradee Referring Unavailabl e Tawanna Holder Admitting Unavailable Kraig Feliz Attending Unavailable Josie, Nagaprzahirae Consulting UnavailKraig Orozco Consulting Unavailable [facility] Unavailable Ivan Cotto Consulting Unavailable Jakub Fischer Referring Unavailable Josh Peñaloza Attending Unavailable Jakub Fischer Admitting Unavailable Jakub Fischer Consulting Unavailable Josh Peñaloza Consulting Unavailable [facility] Unavailable Tawanna Holder Admitting Unavailable Tawanna Holder Consulting Unavailable Nagajothi, Nagapradee Referring UnavailKraig Orozco Attending Unavailable Nagajothi, Nagapradee Consulting Unavailabl e [facility] Unavailable Koram, Estrella Briseida Admitting Unavailable Koram, Estrella Briseida Attending Unavailable [facility] Unavailable Aung Franklin NP Attending Unavailable Aung Franklin NP Referring Unavailable [facility] Unavailable Roxanne Olivas Attending Unavailable Roxanne Olivas Referring Unavailable Nagajothi, Nagapradee Attending Unavailabl e Nagajothi, Nagapradee Referring Unavailabl e [facility] Unavailable [facility] Unavailable Sebas AVELAR, Luz Attending Unavailable Sebas GUM COOKLuz Referring Unavailable [facility] Unavailable Nagajothi, Nagapradee Referring Unavailabl e Nagajothi, Nagapradee Attending Unavailabl e [facility] Care Unavailable Bailey, Florin Referring Unavailable Dax Álvarez Attending Unavailable Bailey, Florin Primary Care Unavailable Ivan Cotto Attending Unavailable Bailey, Florin Referring Unavailable Bailey, Florin Primary Care Unavailable Deondre Leavitt Attending Unavailable Bailey, Florin Referring Unavailable Bailey, Florin Primary Care Unavailable Roxanne Olivas Attending Unavailable Bailey, Florin Primary Care Unavailable Luigi Galindoaprzahirae Attending Unavailamanda Galindo, Adan Referring UnavailBranden Car Primary Care Unavailable Preston George Referring Unavailable Preston George Attending Unavailable Bailey, Florin Primary Care Unavailable Sebas GUM COOK, Luz Attending Unavailable Sebas GUM COOK, Luz Referring Unavailable Bailey, Florin Primary Care Unavailable Clyde Long Admitting Unavailable Clyde Long Attending Unavailable Bailey, Florin Primary Care Unavailable Ivan Cotto Consulting Unavailable Josh Peñaloza Attending Unavailable Jakub Fischer Admitting Unavailable Jakub Fischer Referring Unavailable Jakub Fischer Consulting Unavailable Ivan Cotto Attending Unavailable Jakub Fischer Attending Unavailable Bailey, Florin Primary Care Unavailable Bailey, Florin Referring Unavailable Sebas AVELAR, Luz Attending Unavailable Ivan Cotto Attending Unavailable Bailey, Florin Referring Unavailable Bailey, Florin Referring Unavailable Bailey, Florin Primary Care Unavailable Aung Franklin NP Attending Unavailable Bailey, Florin Primary Care Unavailable Bailey, Florin Referring Unavailable Aung Franklin NP Attending Unavailable Bailey, Florin Primary Care Unavailable Leobardo Galindoe Attending UnavailTrey Navarro Referring Unavailable Bailey, Florin Primary Care Unavailable Trey Eduardo Attending Unavailable Bailey, Florin Primary Care Unavailable Deondre Leavitt Attending Unavailable Luz Mullen NP Referring Unavailable Bailey, Florin Primary Care Unavailable Alfredito Saucedo Attending Unavailable Bailey, Florin Primary Care Unavailable Nagluisa, Nagapradee Attending Unavailamanda e Bailey, Florin Primary Care Unavailable Ivan Cotto Attending Unavailable Clyde Long Admitting Unavailable Clyde Long Consulting Unavailable Clyde Long Referring Unavailable Clyde Long Attending Unavailable Bailey, Florin Primary Care Unavailable Dax Álvarez Referring Unavailable Dax Álvarez Attending Unavailable Bailey, Florin Primary Care Unavailable Nagajothi, Nagapradee Referring Unavailabl e Nagajothi, Nagapradee Attending Unavailabl e Bailey, Florin Primary Care Unavailable Inderjit Gilmore Attending Unavailable Bailey, Florin Primary Care Unavailable Nagajothi, Nagapradee Attending Unavailabl e Nagajothi, Nagapradee Referring Unavailabl e Alfredito Saucedo Attending Unavailable Nagajothi, Nagapradee Attending Unavailabl e Bailey, Florin Primary Care Unavailable Nohemy Banks Attending Unavailable Aung Franklin NP Referring Unavailable Bailey, Florin Primary Care Unavailable Nagajothi, Nagapradee Referring Unavailabl e Nagajothi, Nagapradee Attending Unavailabl e Bailey, Florin Primary Care Unavailable Friend, Ivan Attending Unavailable Friend, Ivan Referring Unavailable Bailey, Florin Primary Care Unavailable Friend, Ivan Referring Unavailable Friend, Ivan Attending Unavailable [facility] Florin Primary Care Unavailable Nagajothi, Nagapradee Referring Unavailabl e Nagajothi, Nagapradee Attending Unavailabl e Leo, Florin Primary Care Unavailable Jak Sheikh [facility] Orlando Abdi Attending Unavailable Allergies Allergy Classification Reported Allergen(s) Allergy Type Date of Onset Reaction(s) Facility (14 sources) Penicillin; Translations: [penicillin] Drug Allergy Rash [facility] (15 sources) Sulfamethoxazole / Trimethoprim; Translations: [sulfamethoxazole-t rimethoprim] Drug Allergy 03-21-20 25 Nausea/vomitin g [facility] (20 sources) Penicillins; Translations: [PENICILLINS] Allergy to substance 04-26-20 16 [facility] (20 sources) Sulfonamides (Antibiotic); Translations: [SULFA (SULFONAMIDE ANTIBIOTICS)] Propensity to adverse reactions 01-03-20 [facility] (1 source) Sulfamethoxazole / Trimethoprim; Translations: [SULFAMETHOXAZOLE-T RIMETHOPRIM] Drug Allergy 03-21-20 25 [facility] (1 source) Penicillins Drug Allergy 04-26-20 16 [facility] (1 source) Sulfonamides (Antibiotic) Drug Allergy 01-03-20 Diarrhea [facility] Work Phone: (1 source) Penicillins Drug allergy (disorder) 04-05-20 [facility] (1 source) Sulfonamides (Antibiotic) Drug allergy (disorder) 04-05-20 [facility] Medications Current Medications Medication Drug Class(es) Dates Sig (Normalized) Sig (Original) acetaminophen 325 mg oral tablet (1 source) Start: 03-25-2025 take 1 tablet by mouth every eight hours as needed 975 mg, oral, Every 8 hours PRN, pain mild (1-3), first line, Starting on Tue03/25/25 at 1702, If ordered PRN for pain, nurse is permitted to administer this medication for higher pain scores based on patient preference? Yes [id number] 200 actuat albuterol 0.09 mg/actuat metered dose inhaler (14 sources) beta2-Adrenergic Agonist Start: 02-06-2025 Start: 02-06-2025 Albuterol Sulf ate (Ventolin Hfa) 90 mcg/actuation HFA aerosol inhaler Active 2 NMA INHALATION EVERY 4 HOURS NEEDED as needed for Wheezing February 06, 2025 12:00am with spacer Albuterol (Eqv-Ventolin HFA) 90 mcg/inh inhalation aerosol (10 sources) Start: 02-11-2025 Albuterol (Eqv-Ventolin HFA) 90 mcg/inh inhalation aerosol USE 2 INHALATIONS EVERY 4 HOURS NEEDED FOR WHEEZING Start Date: 02/11/25 Status: Ordered Repeat number: 1 aspirin 81 mg chewable tablet (20 sources) Platelet Aggregation Inhibitor, Nonsteroidal Anti-inflammatory Drug Start: 03-22-2025 End: 05-25-2025 aspirin 81 mg chewable tablet Indications: CAD in [place] artery Chew 1 tablet (81 mg) once daily. 30 tablet 1 03/26/2025 11:49 AM EDT 03/26/2025 05/25/2025 Active Start: 10-11-2024 AZO Urinary Pain Relief Max Strength (12 sources) Start: 12-05-2024 AZO Urinary Pa in Relief Max Strength Oral, TIDPC, 0 Refill(s) Start Date: 12/05/24 Status: Ordered Repeat number: 1 calcium ascorbate 500 mg oral tablet (14 sources) Start: 02-06-2025 Cranberry preparation (7 sources) Non-Standardized Food Allergenic Extract, Non-Standardized Plant Allergenic Extract Start: 01-21-2025 cranberry oral capsule 0 Refill(s) Start Date: 01/21/25 Status: Ordered Repeat number: 1 furosemide 40 mg oral tablet (5 sources) Loop Diuretic Start: 04-05-2025 End: 04-09-2025 ibuprofen 200 mg oral tablet (1 source) Nonsteroidal Anti-inflammatory Drug Start: 05-02-2019 Advil 200 mg oral tablet Dose : 400 mg = 2 tab(s), Oral, q6hr, PRN as needed for pain, # 120 tab(s), 0 Refill(s) Start Date: 05/02/19 Status: Ordered 24 hr metoprolol succinate 25 mg extended release oral tablet (20 sources) beta-Adrenergic Divya Start: 10-11-2024 End: 10-26-2024 Mylanta Coat and Cool 1200 mg-270 mg-80 mg/10 mL oral suspension (11 sources) Start: 12-11-2024 take 1 dose by mouth four times daily as needed Mylanta Coat and Cool 1200 mg-270 mg-80 mg/10 mL oral suspension Dose = 10 mL, Oral, QID, PRN as needed for indigestion, # 355 mL, 0 Refill(s), Pharmacy: [facility]/pharmacy #[id number], Hiatal hernia, 167.5, cm, 12/11/24 14:17:00 EST, Height, kg, 12/11/24 14:17:00 EST, Dosing Weight Start Date: 12/11/24 Status: Ordered Quantity: 355.0 Unit: mL Repeat number: 1 Indications: Diaphragmatic hernia without obstruction or gangrene; Start: 12-11-2024 take 1 dose by mouth four times daily as needed Mylanta Coat and Cool 1200 mg-270 mg-80 mg/10 mL oral suspension Dose = 10 mL, Oral, QID, PRN as needed for indigestion, # 355 mL, 0 Refill(s), Pharmacy: [facility]/pharmacy #[id number], Hiatal hernia, 167.5, cm, 12/11/24 14:17:00 EST, Height, kg, 12/11/24 14:17:00 EST, Dosing Weight Start Date: 12/11/24 Status: Ordered Quantity: 355.0 Unit: mL Repeat number: 1 Indication: Diaphragmatic hernia without obstruction or gangrene nitrofurantoin, macrocrystals 25 mg / nitrofurantoin, monohydrate 75 mg oral capsule (1 source) Nitrofuran Antibacterial Start: 11-03-2024 End: 11-13-2024 Macrobid 100 mg oral capsule Dose : 100 mg = 1 cap(s), Oral, BID, Take with food, X 10 day(s), # 20 cap(s), 0 Refill(s), 11/13/24 11:08:00 AM EST, Pharmacy: [facility]/pharmacy #[id number], UTI (urinary tract infection), 173, cm, 11/03/24 10:41:00 EST, Height, 75.7, kg, 11/03/24 10:41:00 EST, Dosing Weight Start Date: 11/03/24 Stop Date: 11/13/24 Status: Ordered Quantity: 20.0 Unit: cap(s) Repeat number: 1 Indication: Urinary tract infection, site not specified nitroglycerin 0.4 mg sublingual tablet (20 sources) Nitrate Vasodilator Start: 02-11-2025 nitroglyce rin 0.4 mg sublingual tablet 1TAB BY MOUTH SUBLINGUALLY EVERY 5-15MIN NEEDED FOR CHEST PAIN DONT EXCEED 3 DOSES PER EPISODE Start Date: 02/11/25 Status: Ordered Repeat number: 1 Start: 02-07-2025 2 ml ondansetron 2 mg/ml injection (20 sources) Serotonin-3 Receptor Antagonist Start: 03-25-2025 take 4 mg intravenously every four hours as needed 4 mg, intravenous, Every 4 hours PRN, nausea/vomiting, first line, Starting on Tue03/25/25 at 1432, When administering via IV Push, administer over 3-5 minutes. Start: 02-06-2025 pantoprazole 40 mg injection (20 sources) Proton Pump Inhibitor Start: 03-22-2025 40 mg, intravenous, 2 times daily, First dose on Tue03/22/25 at 0500, Reconstitute each 40 mg vial with 10 mL NS to make 4 mg/mL solution. Start: 03-21-2025 End: 03-21-2025 40 mg, intravenous, Once, On Joana 03/21/25 at 1650, For 1 dose, Reconstitute each 40 mg vial with 10 mL NS to make 4 mg/mL solution. Start: 02-22-2025 phenol 14 mg/ml mucosal spray (1 source) Start: 03-25-2025 take 1 spray(s) by mouth every two hours as needed 1 spray, Mouth/Throat, Every 2 hour PRN, sore throat, Starting on 03/25/25 at 1702, Instruct patient to spit out after 15 seconds. polyethylene glycol [id number] [id number] mg powder for oral solution (1 source) Osmotic Laxative Start: 03-21-2025 take 17 g by mouth every twenty-four hours as needed 17 g, oral, Daily PRN, constipation, Starting on Joana 03/21/25 at 2240, Bowel Regimen - for prevention of constipation. polysaccharide iron complex 150 mg oral capsule (20 sources) Start: 02-22-2025 End: 04-05-2025 Probiotic (7 sources) Start: 01-21-2025 Probiotic 0 Refill(s) Start Date: 01/21/25 Status: Ordered Repeat number: 1 Vitamin C 500 mg oral tablet (7 sources) Start: 01-21-2025 take 1 mg by mouth once daily Vitamin C 500 mg oral tablet mg = tab(s), Oral, qDay, 0 Refill(s) Start Date: 01/21/25 Status: Ordered Repeat number: 1 Completed/Discontinued Medications Medication Drug Class(es) Dates Sig (Normalized) Sig (Original) Cranberry Xmsd-O-Kbugdsiy Coag (14 sources) Non-Standardized Food Allergenic Extract, Non-Standardized Plant Allergenic Extract, Vitamin C Start: 02-06-2025 End: 03-18-2025 Start: 02-06-2025 Start: 02-06-2025 Cranberry Conc -C-Bacillus Coag (Azo Cranberry Plus Probiotic) 250-30-15 mg tablet Active 2 {tbl} PO DAILY February 06, 2025 12:00am atorvastatin 40 mg oral tabl et (20 sources) HMG-CoA Reductase Inhibitor Start: 05-02-2019 End: 10-26-2024 cefdinir 300 mg oral capsule (20 sources) Cephalosporin Antibacterial Start: 12-11-2024 End: 01-02-2025 Start: 12-11-2024 End: 01-02-2025 Cefdinir 300 mg capsule Disc ontinued 300 mg PO Q12 December 11, 2024 1:00am January 02, 2025 8:50am Start: 12-05-2024 End: 12-15-2024 cefdinir 300 mg oral capsule Dose : 300 mg = 1 cap(s), Oral, q12h, X 10 day(s), # 20 cap(s), 0 Refill(s), 12/15/24 11:30:00 AM EST, Pharmacy: [facility]/pharmacy #[id number], 167.5, cm, 12/05/24 11:00:00 EST, Height, 75.1, kg, 12/05/24 11:00:00 EST, Dosing Weight Start Date: 12/05/24 Stop Date: 12/15/24 Status: Ordered Quantity: 20.0 Unit: cap(s) Repeat number: 1 cephalexin 500 mg oral capsule (19 sources) Cephalosporin Antibacterial Start: 01-02-2025 End: 01-23-2025 clopidogrel 75 mg oral tablet (11 sources) [id number] Platelet Inhibitor Start: 03-23-2025 End: 03-23-2026 5 ml iron sucrose 20 mg/ml injection (6 sources) Parenteral Iron Replacement Start: 03-23-2025 End: 03-25-2025 200 mg, intravenous, Administer over 5 Minutes, Daily, First dose on 03/23/25 at 1200, For 3 days Start: 03-07-2025 End: 04-22-2025 iron sucrose 20 mg/mL intrav enous solution Dose : 200 mg = 10 mL, IV Piggyback, 2x/Wk, Goal schedule 200 mg (10mL) IV on Day 1, Day 4, Day 8, Day 11, and Day 15. Doses should be at least 24 hours apart, # 50 mL, 0 Refill(s), other reason (Rx) Start Date: 03/07/25 Stop Date: 04/22/25 Status: Ordered Quantity: 50.0 Unit: mL Repeat number: 1 lisinopril 2.5 mg oral tablet (20 sources) Angiotensin Converting Enzyme Inhibitor Start: 10-11-2024 End: 03-18-2025 METOPROLOL SUCC ER 25 MG TAB (13 sources) Start: 10-18-2024 METOPROLOL SUC C ER 25 MG TAB METOPROLOL SUCC ER 25 MG TAB, 25 mg, Oral, Daily, 0 Refill(s), 79.9 Start Date: 10/18/24 Status: Ordered Repeat number: 1 omeprazole 40 mg delayed release oral capsule (18 sources) Proton Pump Inhibitor Start: 03-03-2025 End: 04-05-2025 Start: 12-13-2024 omeprazole 40 mg oral delayed release capsule Dose : 40 mg = 1 cap(s), Oral, qDay, # 60 cap(s), 0 Refill(s), Pharmacy: [facility]/pharmacy #[id number], 167.5, cm, 12/11/24 14:17:00 EST, Height, kg, 12/11/24 14:17:00 EST, Dosing Weight Start Date: 12/13/24 Status: Ordered Quantity: 60.0 Unit: cap(s) Repeat number: 1 Start: 12-11-2024 omeprazole 20 mg oral delayed release capsule Dose : 20 mg = 1 cap(s), Oral, BIDAC, # 100 cap(s), 0 Refill(s), Pharmacy: [facility]/pharmacy #[id number], Hiatal hernia, 167.5, cm, 12/11/24 14:17:00 EST, Height, kg, 12/11/24 14:17:00 EST, Dosing Weight Start Date: 12/11/24 Status: Ordered Quantity: 100.0 Unit: cap(s) Repeat number: 1 Indications: Diaphragmatic hernia without obstruction or gangrene; ticagrelor 90 mg oral tablet (20 sources) Start: 10-11-2024 End: 03-26-2025 (6 sources) Start: 10-26-2024 End: 04-05-2025 Start: 10-26-2024 Problems Active Problems Problem Classification Problem Date Documented Da te Episodic/Chronic Abdominal pain (10 sources) Epigastric pain 01-21-2025 Episodic Acute myocardial infarction (20 sources) Myocardial infarction; Translations: [Acute ST segment elevation myocardial infarction of anterolateral wall] Onset: 4 10-18-2024 Chronic Acute posthemorrhagic anemia (7 sources) Acute posthemorrhagic anemia; Translations: [Acute posthemorrhagic anemia] Onset: 5 03-18-2025 Episodic Cardiac dysrhythmias (20 sources) Palpitations; Translations: [Palpitations] Onset: 5 02-07-2025 Episodic Chronic obstructive pulmonary disease and bronchiectasis (14 sources) Pulmonary emphysema; Translations: [Emphysema, unspecified] 02-06-2025 Chronic Coronary atherosclerosis and other heart disease (20 sources) Coronary arteriosclerosis; Translations: [Coronary atherosclerosis] Onset: 5 10-18-2024 Chronic Coronary atherosclerosis and other heart disease (6 sources) Stented coronary artery; Translations: [Presence of coronary angioplasty implant and graft] Onset: 5 02-27-2025 Episodic Deficiency and other anemia (1 source) Iron deficiency anemia secondary to blood loss (chronic); 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 Deficiency and other anemia (20 sources) Anemia; Translations: [Anemia, unspecified] Episodic Deficiency and other anemia (2 sources) Anemia, unspecified; Translations: [Anemia, unspecified] Onset: Episodic Disorders of lipid metabolism (20 sources) Hyperlipidemia; Translations: [Hyperlipidemia, unspecified] Onset: 5 12-04-2021 Chronic Gastrointestinal hemorrhage (20 sources) Acute gastrointestinal hemorrhage; Translations: [Gastrointestinal hemorrhage, unspecified] Onset: 5 02-18-2025 Episodic Genitourinary symptoms and ill-defined conditions (20 sources) Blood in urine; Translations: [Hematuria, unspecified] Onset: 5 01-23-2025 Episodic Heart valve disorders (9 sources) Mitral valve regurgitation 02-27-2025 Chronic Heart valve disorders (20 sources) Heart murmur; Translations: [Cardiac murmur, unspecified] 02-07-2025 Episodic Malaise and fatigue (20 sources) Fatigue; Translations: [Other fatigue] Onset: 5 02-06-2025 Episodic Nausea and vomiting (14 sources) Nausea; Translations: [Nausea] 02-06-2025 Episodic Other aftercare (1 source) Follow-up status; Translations: [Encounter for follow-up examination after completed treatment for conditions other than malignant neoplasm] Episodic Other circulatory disease (12 sources) History of acute ST segment elevation myocardial infarction 11-21-2024 Episodic Other circulatory disease (19 sources) Elevated blood-pressure reading without diagnosis of hypertension; Translations: [Elevated blood-pressure reading, without diagnosis of hypertension] 10-09-2024 Episodic Other ear and sense organ disorders (1 source) Sensorineural hearing loss, bilateral; Translations: [Sensorineural hearing loss, bilateral] Onset: Chronic Other gastrointestinal disorders (5 sources) History of gastrointestinal bleed 02-27-2025 Episodic Other lower respiratory disease (20 sources) Dyspnea; Translations: [Dyspnea, unspecified] Onset: 5 12-19-2024 Episodic Other lower respiratory disease (20 sources) Dyspnea on exertion; Translations: [Other forms of dyspnea] 03-03-2025 Episodic Other lower respiratory disease (3 sources) Shortness of breath; Translations: [Shortness of breath] Onset: Episodic Other nutritional; endocrine; and metabolic disorders (13 sources) Overweight in adulthood with body mass index of 25 or more but less than 30 11-03-2024 Episodic Phlebitis; thrombophlebitis and thromboembolism (4 sources) Phlebitis 03-08-2025 Episodic Residual codes; unclassified (20 sources) Obstructive sleep apnea syndrome; Translations: [Obstructive sleep apnea (adult) (pediatric)] 11-21-2024 Chronic Residual codes; unclassified (20 sources) Hypersomnia; Translations: [Hypersomnia, unspecified] 10-26-2024 Chronic Residual codes; unclassified (1 source) Obstructive sleep apnea (adult) (pediatric); Translations: [Obstructive sleep apnea (adult) (pediatric)] Onset: Chronic Residual codes; unclassified (1 source) Hypersomnia, unspecified; Translations: [Hypersomnia, unspecified] Onset: 5 Chronic Residual codes; unclassified (9 sources) Screening due 11-03-2024 Episodic Residual codes; unclassified (12 sources) Family history of cancer of colon 11-21-2024 Episodic Residual codes; unclassified (20 sources) Tobacco user; Translations: [Tobacco use] 10-26-2024 Episodic Residual codes; unclassified (5 sources) History of colonoscopy 02-27-2025 Episodic Residual codes; unclassified (5 sources) Past history of procedure 02-27-2025 Episodic Residual codes; unclassified (4 sources) Bilateral lower limb edema; Translations: [Localized edema] 06-13-2025 Episodic Substance-related disorders (20 sources) Cigarette smoker ; Translations: [Nicotine dependence, cigarettes, uncomplicated] Onset: 01-02-2025 Chronic Unclassified (6 sources) I25.10 - Atherosclerotic heart disease of [place] coronary artery without angina pectoris,Z95.5 - Presence of coronary angioplasty implant and graft,I21.09 - ST elevation (STEMI) myocardial infarction involving other coronary artery of anterior wall Unclassified (4 sources) I21.4 - Non-ST elevation (NSTEMI) myocardial infarction,Z95.5 - Presence of coronary angioplasty implant and graft Unclassified (2 sources) Non-ST elevation myocardial infarction (NSTEMI) Unclassified (2 sources) History of coronary artery stent placement Past or Other Problems Problem Classification Problem Date Documented Da te Episodic/Chronic Other nutritional; endocrine; and metabolic disorders (2 sources) Body mass index (BMI) 25.0-25.9, adult; Translations: [Body mass index [BMI] 25.0-25.9, adult] Onset: 12-24-2024 Episodic Other screening for suspected conditions (not mental disorders or infectious disease) (2 sources) Encounter for screening, unspecified; Translations: [Encounter for screening, unspecified] Onset: 12-24-2024 Episodic Urinary tract infections (3 sources) Urinary tract infectious disease; Translations: [Urinary tract infection, site not specified] Onset: 12-24-2024 11-03-2024 Episodic Results Test Name Value Interpretation Reference Range Facility Gastroenterology Visit Repor ton 04-23-2025 Gastroenterology Visit Report Normal [facility] .Auto Diffon 04-16-2025 Basophil, Absolute 0.2 10 3/mcL Normal 0.0-0.3 [facility] Comment on above: Performed By: #### M ORPH, ANEU, ADIFF, CBC #### [facility] [address] [place], [place] [address] Basophils/100 WBC (Bld) 2.5 % Normal 0.0-2.5 [facility] Comment on above: Performed By: #### M ORPH, ANEU, ADIFF, CBC #### [facility] [address] [place], [place] [address] Eosinophil, Absolute 0.2 10 3/mcL Normal 0.0-0.7 [facility] Comment on above: Performed By: #### M ORPH, ANEU, ADIFF, CBC #### [address] [address] Eosinophils/100 WBC (Bld) 3.0 % Normal 0.0-6.0 [facility] Comment on above: Performed By: #### M ORPH, ANEU, ADIFF, CBC #### [address] [address] Lymphocyte, Absolute 1.5 10 3/mcL Normal 0.9-4.3 [facility] Comment on above: Performed By: #### M ORPH, ANEU, ADIFF, CBC #### [address] [address] Lymphocytes/100 WBC (Bld) 23.4 % Normal 20.0-40.0 [facility] Comment on above: Performed By: #### M ORPH, ANEU, ADIFF, CBC #### [address] [address] Monocyte, Absolute 0.4 10 3/mcL Normal 0.1-1.4 [facility] Comment on above: Performed By: #### M ORPH, ANEU, ADIFF, CBC #### [address] [address] Monocytes/100 WBC (Bld) 5.9 % Normal 2.0-13.0 [facility] Comment on above: Performed By: #### M ORPH, ANEU, ADIFF, CBC #### [address] [address] Neutrophils/100 WBC (Bld) 65.2 % Normal 50.0-75.0 [facility] Comment on above: Performed By: #### M ORPH, ANEU, ADIFF, CBC #### [address] [address] .GFRon 04-16-2025 Estimated Glomerular Filtration Rate 48 ml/min/1.73sqm Normal [facility] Comment on above: Result Comment: Stages of Chronic Kidney Disease (CKD) Stage Description eGFR(ml/min/1.73 sq.m.) CKD 1 Normal kidney function or >=90 normal kindney function with possible kidney damage (ex. Proteinuria) CKD 2 Kidney damage with mild loss 60-89 of kidney function CKD 3a Mild to moderate loss of kidney 45-59 function CKD 3b Moderate to severe loss of 30-44 of kindey function CKD 4 Severe loss of kidney function 15-29 CKD 5 Kidney failure <15 Note: (go live 2024) the eGFR calculation was updated to the 2020 CKD-EPI creatinine equation without a race factor to calculate the eGFR results. Performed By: #### M ORPH, ANEU, ADIFF, CBC #### [address] [address] .NEUABSon 04-16-2025 Neutrophil, Absolute 4.2 10 3/mcL Normal 2.3-8.1 [facility] Comment on above: Performed By: #### M ORPH, ANEU, ADIFF, CBC #### [address] [address] BMPon 04-16-2025 BUN/Creatinine Ratio 18 ratio Normal 7-27 [facility] Comment on above: Performed By: #### M ORPH, ANEU, ADIFF, CBC #### [address] [address] Calcium [Mass/Vol] 9.2 mg/dL Normal 8.4-10.2 [facility] Comment on above: Performed By: #### M ORPH, ANEU, ADIFF, CBC #### [address] [address] Chloride [Moles/Vol] 105 mmol/L Normal 98-107 [facility] Comment on above: Performed By: #### M ORPH, ANEU, ADIFF, CBC #### [address] [address] CO2 [Moles/Vol] 27 mmol/L Normal 23-31 [facility] Comment on above: Performed By: #### M ORPH, ANEU, ADIFF, CBC #### [address] [address] Creatinine [Mass/Vol] 1.23 mg/dL High 0.51-0.95 [facility] Comment on above: Performed By: #### M KELIN CARMICHAEL ADADOLFO, CBC #### [address] [address] Electrolyte Balance 10.0 mEq/L Normal 4.0-15.0 [facility] Comment on above: Performed By: #### M ORKELIN SCHILLING ADIFF, CBC #### [address] [address] Glucose [Mass/Vol] 126 mg/dL High 80-115 [facility] Comment on above: Performed By: #### M KELIN CARMICHAEL ADADOLFO, CBC #### [address] [address] Potassium [Moles/Vol] 4.0 mmol/L Normal 3.5-5.1 [facility] Comment on above: Performed By: #### M KELIN CARMICHAEL ADADOLFO, CBC #### [address] [address] Sodium [Moles/Vol] 142 mmol/L Normal 136-145 [facility] Comment on above: Performed By: #### M ORKELIN SCHILLING ADIFF, CBC #### [address] [address] Urea nitrogen [Mass/Vol] 22 mg/dL High 7-18 [facility] Comment on above: Performed By: #### M ORKELIN SCHILLING ADIFF, CBC #### [address] [address] CBCon 04-16-2025 Erythrocyte distribution width (RBC) [Ratio] 18.4 % High 11.5-15.5 [facility] Comment on above: Performed By: #### M ORSHAKIR ANEU ADIFF, CBC #### [address] [address] Hematocrit (Bld) [Volume fraction] 33.5 % Low 34.0-46.0 [facility] Comment on above: Performed By: #### M ORPH, ANEU, ADIFF, CBC #### [place] [address] Hgb 11.0 G/dL Low 12.0-16.0 [facility] Comment on above: Performed By: #### M ORPH, ANEU, ADIFF, CBC #### [place] [address] MCH (RBC) [Entitic mass] 31.1 pg Normal 27.0-33.0 [facility] Comment on above: Performed By: #### M ORPH, ANEU, ADIFF, CBC #### [place] [address] MCHC 32.9 G/dL Normal 32.0-36.0 [facility] Comment on above: Performed By: #### M ORPH, ANEU, ADIFF, CBC #### [place] [address] MCV (RBC) [Entitic vol] 94.7 fL Normal 80.0-99.0 [facility] Comment on above: Performed By: #### M ORPH, ANEU, ADIFF, CBC #### [place] [address] Platelet 203 10 3/mcL Normal 150-450 [facility] Comment on above: Performed By: #### M ORPH, ANEU, ADIFF, CBC #### [place] [address] Platelet mean volume (Bld) [Entitic vol] 8.5 fL Normal 6.6-10.5 [facility] Comment on above: Performed By: #### M ORPH, ANEU, ADIFF, CBC #### [place] [address] RBC 3.54 10 6/mcL Low 4.10-5.30 [facility] Comment on above: Performed By: #### M ORPH, ANEU, ADIFF, CBC #### [place] [address] WBC 6.5 10 3/mcL Normal 4.5-10.8 [facility] Comment on above: Performed By: #### M ORKELIN SCHILLING ADIFF, CBC #### [facility] [address] [place], [place] [address] LABORATORYOrdered By: SYSTEM SYSTEM on 04-16-2025 Basophils (Bld) [#/Vol] 0.2 103/mcL Normal 0.0 - 0.3 10^3/mcL AO Workflow SS Basophils/100 WBC (Bld) 2.5 % Normal 0.0 - 2.5 % AO Workflow SS Calcium [Mass/Vol] 9.2 mg/dL Normal 8.4 - 10. 2 mg/dL AO ADM SS Chloride [Moles/Vol] 105 mmol/L Normal 98 - 10 7 mmol/L AO ADM SS CO2 [Moles/Vol] 27 mmol/L Normal 23 - 31 mmol/L AO ADM SS Creatinine [Mass/Vol] 1.23 mg/dL High 0.51 - 0.95 mg/dL AO ADM SS Electrolyte Balance 10.0 mEq/L Normal 4.0 - 15 .0 mEq/L AO ADM SS Eosinophil, Absolute 0.2 103/mcL Normal 0.0 - 0 .7 10^3/mcL AO Workflow SS Eosinophils/100 WBC (Bld) 3.0 % Normal 0.0 - 6.0 % AO Workflow SS Erythrocyte distribution width (RBC) [Ratio] 18.4 % High 11.5 - 15.5 % AO Workflow SS Estimated Glomerular Filtration Rate 48 ml/min/1.73sqm Invalid Interpretation Code AO Chemistry S Comment on above: Interpretive Data: Stages of Chronic Kidney Disease (CKD) Stage Description eGFR(ml/min/1.73 sq.m.) CKD 1 Normal kidney function or >=90 normal kindney function with possible kidney damage (ex. Proteinuria) CKD 2 Kidney damage with mild loss 60-89 of kidney function CKD 3a Mild to moderate loss of kidney 45-59 function CKD 3b Moderate to severe loss of 30-44 of kindey function CKD 4 Severe loss of kidney function 15-29 CKD 5 Kidney failure <15 Note: (go live 2024) the eGFR calculation was updated to the 2020 CKD-EPI creatinine equation without a race factor to calculate the eGFR results. Glucose [Mass/Vol] 126 mg/dL High 80 - 115 mg/dL AO ADM SS Hematocrit (Bld) [Volume fraction] 33.5 % Low 34.0 - 46.0 % AO Workflow SS Hemoglobin (Bld) [Mass/Vol] 11.0 G/dL Low 12.0 - 16.0 G/dL AO Workflow SS Lymphocytes (Bld) [#/Vol] 1.5 103/mcL Normal 0.9 - 4.3 10^3/mcL AO Workflow SS Lymphocytes/100 WBC (Bld) 23.4 % Normal 20.0 - 40.0 % AO Workflow SS MCH (RBC) [Entitic mass] 31.1 pg Normal 27. 0 - 33.0 pg AO Workflow SS MCHC 32.9 G/dL Normal 32.0 - 36.0 G/dL AO Workflow SS MCV (RBC) [Entitic vol] 94.7 fL Normal 80.0 - 99.0 fL AO Workflow SS Monocytes (Bld) [#/Vol] 0.4 103/mcL Normal 0.1 - 1.4 10^3/mcL AO Workflow SS Monocytes/100 WBC (Bld) 5.9 % Normal 2.0 - 13.0 % AO Workflow SS Neutrophils (Bld) [#/Vol] 4.2 103/mcL Normal 2.3 - 8.1 10^3/mcL AO Workflow SS Neutrophils/100 WBC (Bld) 65.2 % Normal 50.0 - 75.0 % AO Workflow SS Platelet mean volume (Bld) [Entitic vol] 8.5 fL Normal 6.6 - 10.5 fL AO Workflow SS Platelets (Bld) [#/Vol] 203 103/mcL Normal 150 - 450 10^3/mcL AO Workflow SS Potassium [Moles/Vol] 4.0 mmol/L Normal 3.5 - 5.1 mmol/L AO ADM SS RBC (Bld) [#/Vol] 3.54 106/mcL Low 4.10 - 5.3 0 10^6/mcL AO Workflow SS Sodium [Moles/Vol] 142 mmol/L Normal 136 - 145 mmol/L AO ADM SS Urea nitrogen [Mass/Vol] 22 mg/dL High 7 - 18 mg/dL AO ADM SS Urea nitrogen/Creatinine [Mass ratio] 18 ratio Normal 7 - 27 ratio AO ADM SS WBC (Bld) [#/Vol] 6.5 103/mcL Normal 4.5 - 10.8 10^3/mcL AO Workflow SS MA MAMMOGRAM SCREENING BILAT ERAL W/TOMOon 04-09-2025 MA MAMMOGRAM SCREENING BILATERAL W/DICK ORIGINAL FROM: MARLEEN HAMILTON [address] [place], [place] [address] PROCEDURE FOR: MILY LONG [address] [place] [id number] Home: PID#: [id number] Exam#: [id number] : 1960 Age: 65 TO: FLORIN BAILEY D.O. [address] [place] [address] Fax: NO FAX EXAMINATION: SCREENING DIGITAL BILATERAL MAMMOGRAM WITH TOMOSYNTHESIS, 04/09/2025 11:22 am TECHNIQUE: Screening mammography of the bilateral breasts was performed with tomosynthesis. 2D standard and 3D tomosynthesis combination imaging performed through both breasts in the MLO and CC projection. Computer aided detection was utilized in the interpretation of this exam. COMPARISON: Mammogram 11/21/2019 and 08/30/2018 HISTORY: Breast cancer screening. FINDINGS: BREAST DENSITY: There are scattered areas of fibroglandular density. Bilateral intramammary lymph nodes noted. There are no significant masses or calcifications. IMPRESSION: No mammographic evidence of malignancy. Continued screening with annual mammograms is recommended. Micheal Smileyzick risk calculations, generated with the history provided, report this patient's 10 year risk and lifetime risk for developing breast cancer at 2.3% and 4.5%, respectively. Based on this assessment tool, if the patient's calculated lifetime risk is below 20%, then the patient is considered at average risk for developing breast cancer. If the patient's calculated lifetime risk is at or above 20%, then the patient is considered high risk for developing breast cancer and may be a candidate for supplemental breast MRI screening in addition to annual mammographic screening per the [employer]. I have personally reviewed the images of this examination and agree with the resident's findings and interpretation. BIRADS: MAMMOGRAM BI-RADS: 2: Benign finding RECALL: 1 year screening RECALL TYPE: mammo LETTER SENT: Normal BI-RADS 1 and 2 Interpreted by: Deondre Black MD Preliminary Report By: Chente Taylor Electronically signed By Deondre Black MD Dictated Date: 04/09/2025 1:46:29 PM Prelim Date: 04/09/2025 3:23:06 PM Sign Date: 04/09/2025 3:23:06 PM Ordering Provider: FLORIN BAILEY Spot Remover: LINDA SHEIKH RT (R)(M) letter sent: Normal BI-RADS 1 and 2 Mammogram BI-RADS: [address] [facility] No Panel InformationOrdered By: Alfredo Aragon on 04-09-2025 [facility] Cardiology Visit Reporton Cardiology Visit Report Normal [facility] HHon 04-05-2025 Hematocrit (Bld) [Volume fraction] 31.2 % Low 34.0-46.0 [facility] Comment on above: Performed By: #### M ORPH, ANEU, ADIFF, CBC #### [place] [address] [place] [address] Hgb 10.4 G/dL Low 12.0-16.0 [facility] Comment on above: Performed By: #### M ORPH, ANEU, ADIFF, CBC #### [place] [address] LABORATORYOrdered By: SYSTEM SYSTEM on 04-05-2025 Hematocrit (Bld) [Volume fraction] 31.2 % Low 34.0 - 46.0 % AO Workflow SS Hemoglobin (Bld) [Mass/Vol] 10.4 G/dL Low 12.0 - 16.0 G/dL AO Workflow SS Natriuretic peptide.B prohormone N-Terminal [Mass/Vol] 361 pg/mL High 0 - 125 pg/mL AO ADM SS Comment on above: Interpretive Data: N T-proBNP results of less than 300 pg/mL effectively rules out acute congestive heart failure with 99% negative predictive value. PBNPon 04-05-2025 Natriuretic peptide B (Bld) [Mass/Vol] 361 pg/mL High 0-125 [facility] Comment on above: Result Comment: NT-p roBNP results of less than 300 pg/mL effectively rules out acute congestive heart failure with 99% negative predictive value. Performed By: #### M ORPH, ANEU, ADIFF, CBC #### [address] [address] .Auto Diffon 03-30-2025 Basophil, Absolute 0.2 10 3/mcL Normal 0.0-0.3 [facility] Comment on above: Performed By: #### M ORPH, ANEU, ADIFF, CBC #### [address] [address] Basophils/100 WBC (Bld) 2.3 % Normal 0.0-2.5 [facility] Comment on above: Performed By: #### M ORPH, ANEU, ADIFF, CBC #### [address] [address] Eosinophil, Absolute 0.2 10 3/mcL Normal 0.0-0.7 [facility] Comment on above: Performed By: #### M ORPH, ANEU, ADIFF, CBC #### [address] [address] Eosinophils/100 WBC (Bld) 3.1 % Normal 0.0-6.0 [facility] Comment on above: Performed By: #### M ORPH, ANEU, ADIFF, CBC #### [address] [address] Lymphocyte, Absolute 1.5 10 3/mcL Normal 0.9-4.3 [facility] Comment on above: Performed By: #### M ORPH, ANEU, ADIFF, CBC #### [address] [address] Lymphocytes/100 WBC (Bld) 19.2 % Low 20.0-40.0 [facility] Comment on above: Performed By: #### M ORPH, ANEU, ADIFF, CBC #### [address] [address] Monocyte, Absolute 0.4 10 3/mcL Normal 0.1-1.4 [facility] Comment on above: Performed By: #### M ORPH, ANEU, ADIFF, CBC #### [place] [address] [place], [place] [address] Monocytes/100 WBC (Bld) 4.9 % Normal 2.0-13.0 [facility] Comment on above: Performed By: #### M ORPH, ANEU, ADIFF, CBC #### [address] [address] Neutrophils/100 WBC (Bld) 70.5 % Normal 50.0-75.0 [facility] Comment on above: Performed By: #### M ORPH, ANEU, ADIFF, CBC #### [address] [address] .GFRon 03-30-2025 Estimated Glomerular Filtration Rate 60 ml/min/1.73sqm Normal [facility] Comment on above: Result Comment: Stages of Chronic Kidney Disease (CKD) Stage Description eGFR(ml/min/1.73 sq.m.) CKD 1 Normal kidney function or >=90 normal kindney function with possible kidney damage (ex. Proteinuria) CKD 2 Kidney damage with mild loss 60-89 of kidney function CKD 3a Mild to moderate loss of kidney 45-59 function CKD 3b Moderate to severe loss of 30-44 of kindey function CKD 4 Severe loss of kidney function 15-29 CKD 5 Kidney failure <15 Note: (go live 2024) the eGFR calculation was updated to the 2020 CKD-EPI creatinine equation without a race factor to calculate the eGFR results. Performed By: #### M ORPH, ANEU, ADIFF, CBC #### [address] [address] .NEUABSon 03-30-2025 Neutrophil, Absolute 5.4 10 3/mcL Normal 2.3-8.1 [facility] Comment on above: Performed By: #### M ORPH, ANEU, ADIFF, CBC #### [place] [address] [place], [place] [address] BMPon 03-30-2025 BUN/Creatinine Ratio 24 ratio Normal 7-27 [facility] Comment on above: Performed By: #### M ORPH, ANEU, ADIFF, CBC #### [address] [address] Calcium [Mass/Vol] 9.0 mg/dL Normal 8.4-10.2 [facility] Comment on above: Performed By: #### M ORPH, ANEU, ADIFF, CBC #### [address] [address] Chloride [Moles/Vol] 108 mmol/L High 98-107 [facility] Comment on above: Performed By: #### M ORPH, ANEU, ADIFF, CBC #### [address] [address] CO2 [Moles/Vol] 26 mmol/L Normal 23-31 [facility] Comment on above: Performed By: #### M ORPH, ANEU, ADIFF, CBC #### [address] [address] Creatinine [Mass/Vol] 1.02 mg/dL High 0.51-0.95 [facility] Comment on above: Performed By: #### M ORPH, ANEU, ADIFF, CBC #### [address] [address] Electrolyte Balance 9.0 mEq/L Normal 4.0-15.0 [facility] Comment on above: Performed By: #### M ORPH, ANEU, ADIFF, CBC #### [address] [address] Glucose [Mass/Vol] 119 mg/dL High 80-115 [facility] Comment on above: Performed By: #### M ORPH, ANEU, ADIFF, CBC #### [address] [address] Potassium [Moles/Vol] 4.1 mmol/L Normal 3.5-5.1 [facility] Comment on above: Performed By: #### M ORPH, ANEU, ADIFF, CBC #### [address] [address] Sodium [Moles/Vol] 143 mmol/L Normal 136-145 [facility] Comment on above: Performed By: #### M ORPH ANEU, ADIFF, CBC #### [place] [id number] Urea nitrogen [Mass/Vol] 24 mg/dL High 7-18 [facility] Comment on above: Performed By: #### M ORPH ANEU, ADIFF, CBC #### [place] [id number] CBCon 03-30-2025 Erythrocyte distribution width (RBC) [Ratio] 20.4 % High 11.5-15.5 [facility] Comment on above: Performed By: #### M ORPH ANEU, ADIFF, CBC #### [place] [address] Hematocrit (Bld) [Volume fraction] 33.0 % Low 34.0-46.0 [facility] Comment on above: Performed By: #### M ORPH ANEU, ADIFF, CBC #### [place] [address] Hgb 10.7 G/dL Low 12.0-16.0 [facility] Comment on above: Performed By: #### M ORPH ANEU, ADIFF, CBC #### [place] [address] MCH (RBC) [Entitic mass] 31.1 pg Normal 27.0-33.0 [facility] Comment on above: Performed By: #### M ORPH ANEU, ADIFF, CBC #### [place] [address] MCHC 32.3 G/dL Normal 32.0-36.0 [facility] Comment on above: Performed By: #### M ORPH ANEU, ADIFF, CBC #### [place] [address] MCV (RBC) [Entitic vol] 96.2 fL Normal 80.0-99.0 [facility] Comment on above: Performed By: #### M ORPH, ANEU, ADIFF, CBC #### [place] [address] [place], [place] [address] Platelet 208 10 3/mcL Normal 150-450 [facility] Comment on above: Performed By: #### M ORSHAKIR ANEU, ADIFF, CBC #### [place] [address] [place], [place] [address] Platelet mean volume (Bld) [Entitic vol] 8.5 fL Normal 6.6-10.5 [facility] Comment on above: Performed By: #### M ORPH, ANEU, ADIFF, CBC #### [address] [address] RBC 3.44 10 6/mcL Low 4.10-5.30 [facility] Comment on above: Performed By: #### M ORPH, ANEU, ADIFF, CBC #### [address] [address] WBC 7.7 10 3/mcL Normal 4.5-10.8 [facility] Comment on above: Performed By: #### M ORPH, ANEU, ADIFF, CBC #### [address] [address] LABORATORYOrdered By: SYSTEM SYSTEM on 03-30-2025 Basophils (Bld) [#/Vol] 0.2 103/mcL Normal 0.0 - 0.3 10^3/mcL AO Workflow SS Basophils/100 WBC (Bld) 2.3 % Normal 0.0 - 2.5 % AO Workflow SS Calcium [Mass/Vol] 9.0 mg/dL Normal 8.4 - 10. 2 mg/dL AO ADM SS Chloride [Moles/Vol] 108 mmol/L High 98 - 10 7 mmol/L AO ADM SS CO2 [Moles/Vol] 26 mmol/L Normal 23 - 31 mmol/L AO ADM SS Creatinine [Mass/Vol] 1.02 mg/dL High 0.51 - 0.95 mg/dL AO ADM SS Electrolyte Balance 9.0 mEq/L Normal 4.0 - 15 .0 mEq/L AO ADM SS Eosinophil, Absolute 0.2 103/mcL Normal 0.0 - 0 .7 10^3/mcL AO Workflow SS Eosinophils/100 WBC (Bld) 3.1 % Normal 0.0 - 6.0 % AO Workflow SS Erythrocyte distribution width (RBC) [Ratio] 20.4 % High 11.5 - 15.5 % AO Workflow SS Estimated Glomerular Filtration Rate 60 ml/min/1.73sqm Invalid Interpretation Code AO Chemistry S Comment on above: Interpretive Data: Stages of Chronic Kidney Disease (CKD) Stage Description eGFR(ml/min/1.73 sq.m.) CKD 1 Normal kidney function or >=90 normal kindney function with possible kidney damage (ex. Proteinuria) CKD 2 Kidney damage with mild loss 60-89 of kidney function CKD 3a Mild to moderate loss of kidney 45-59 function CKD 3b Moderate to severe loss of 30-44 of kindey function CKD 4 Severe loss of kidney function 15-29 CKD 5 Kidney failure <15 Note: (go live 2024) the eGFR calculation was updated to the 2020 CKD-EPI creatinine equation without a race factor to calculate the eGFR results. Glucose [Mass/Vol] 119 mg/dL High 80 - 115 mg/dL AO ADM SS Hematocrit (Bld) [Volume fraction] 33.0 % Low 34.0 - 46.0 % AO Workflow SS Hemoglobin (Bld) [Mass/Vol] 10.7 G/dL Low 12.0 - 16.0 G/dL AO Workflow SS Lymphocytes (Bld) [#/Vol] 1.5 103/mcL Normal 0.9 - 4.3 10^3/mcL AO Workflow SS Lymphocytes/100 WBC (Bld) 19.2 % Low 20.0 - 40.0 % AO Workflow SS MCH (RBC) [Entitic mass] 31.1 pg Normal 27. 0 - 33.0 pg AO Workflow SS MCHC 32.3 G/dL Normal 32.0 - 36.0 G/dL AO Workflow SS MCV (RBC) [Entitic vol] 96.2 fL Normal 80.0 - 99.0 fL AO Workflow SS Monocytes (Bld) [#/Vol] 0.4 103/mcL Normal 0.1 - 1.4 10^3/mcL AO Workflow SS Monocytes/100 WBC (Bld) 4.9 % Normal 2.0 - 13.0 % AO Workflow SS Neutrophils (Bld) [#/Vol] 5.4 103/mcL Normal 2.3 - 8.1 10^3/mcL AO Workflow SS Neutrophils/100 WBC (Bld) 70.5 % Normal 50.0 - 75.0 % AO Workflow SS Platelet mean volume (Bld) [Entitic vol] 8.5 fL Normal 6.6 - 10.5 fL AO Workflow SS Platelets (Bld) [#/Vol] 208 103/mcL Normal 150 - 450 10^3/mcL AO Workflow SS Potassium [Moles/Vol] 4.1 mmol/L Normal 3.5 - 5.1 mmol/L AO ADM SS RBC (Bld) [#/Vol] 3.44 106/mcL Low 4.10 - 5.3 0 10^6/mcL AO Workflow SS Sodium [Moles/Vol] 143 mmol/L Normal 136 - 145 mmol/L AO ADM SS Urea nitrogen [Mass/Vol] 24 mg/dL High 7 - 18 mg/dL AO ADM SS Urea nitrogen/Creatinine [Mass ratio] 24 ratio Normal 7 - 27 ratio AO ADM SS WBC (Bld) [#/Vol] 7.7 103/mcL Normal 4.5 - 10.8 10^3/mcL AO Workflow SS CBC W Auto Differential pane l (Bld)on 03-26-2025 Basophils (Bld) [#/Vol] 0.05 10*3/uL [facility] Basophils/100 WBC (Bld) 0.4 % 0.0 - 2.0 % [facility] Eosinophils (Bld) [#/Vol] 0 10*3/uL [facility] Eosinophils/100 WBC (Bld) 0 % 0.0 - 6.0 % [facility] Erythrocyte distribution width (RBC) [Ratio] 17.2 % High 11.5 - 14.5 % [facility] Hematocrit (Bld) [Volume fraction] 28.8 % Low 36.0 - 46.0 % [facility] Hemoglobin (Bld) [Mass/Vol] 8.9 g/dL Low 12.0 - 16.0 g/dL [facility] Immature granulocytes (Bld) [#/Vol] 0.06 10*3/uL [facility] Immature granulocytes/100 WBC (Bld) 0.5 % 0.0 - 0.9 % [facility] Comment on above: Immature Granulocyte Count (IG) includes promyelocytes, myelocytes and metamyelocytes but does not include bands. Percent differential counts (%) should be interpreted in the context of the absolute cell counts (cells/UL). Interpretation and review of laboratory results Abnormal [facility] Lymphocytes (Bld) [#/Vol] 1.58 10*3/uL [facility] Lymphocytes/100 WBC (Bld) 13.5 % 13.0 - 44.0 % [facility] MCH (RBC) [Entitic mass] 29.9 pg 26. 0 - 34.0 pg [facility] MCHC (RBC) [Mass/Vol] 30.9 g/dL Low 32.0 - 36.0 g/dL [facility] MCV (RBC) [Entitic vol] 97 fL 80 - 100 fL [facility] Monocytes (Bld) [#/Vol] 0.58 10*3/uL [facility] Monocytes/100 WBC (Bld) 5 % 2.0 - 10.0 % [facility] Neutrophils (Bld) [#/Vol] 9.4 10*3/uL High [facility] Comment on above: Percent differential counts (%) should be interpreted in the context of the absolute cell counts (cells/uL). Neutrophils/100 WBC (Bld) 80.6 % 40.0 - 80.0 % [facility] Nucleated RBC/100 WBC (Bld) [Ratio] 0 % [facility] Platelets (Bld) [#/Vol] 202 10*3/uL [facility] RBC (Bld) [#/Vol] 2.98 10*6/uL Low [facility] WBC (Bld) [#/Vol] 11.7 10*3/uL High [facility] Basophils (Bld) [#/Vol] 0.05 x10*3/uL Normal 0.00-0.10 [facility] Comment on above: Performed By: #### 2 4323-8 #### LOPEZ Coreas ([id number]) [facility] ([facility]) [address] [place] [address] Basophils/100 WBC (Bld) 0.4 % Normal 0.0-2.0 [facility] Comment on above: Performed By: #### 2 0053-8 #### LOPEZ Coreas ([id number]) [facility] ([facility]) [address] [place] [address] 82917 Eosinophils (Bld) [#/Vol] 0.00 x10*3/uL Normal 0.00-0.70 [facility] Comment on above: Performed By: #### 2 4323-8 #### LOPEZ Coreas ([id number]) [facility] ([facility]) [address] [place] [address] 20446 Eosinophils/100 WBC (Bld) 0.0 % Normal 0.0-6.0 [facility] Comment on above: Performed By: #### 2 4323-8 #### LOPEZ Coreas ([id number]) [facility] ([facility]) [address] [place] [address] 24209 Erythrocyte distribution width (RBC) [Ratio] 17.2 % High 11.5-14.5 [facility] Comment on above: Performed By: #### 2 432-8 #### LOPEZ Coreas ([id number]) [facility] ([facility]) [address] [place] [address] 55698 Hematocrit (Bld) [Volume fraction] 28.8 % Low 36.0-46.0 [facility] Comment on above: Performed By: #### 2 4323-8 #### LOPEZ Coreas ([id number]) [facility] ([facility]) [address] [place] [address] 64143 Hemoglobin (Bld) [Mass/Vol] 8.9 g/dL Low 12.0-16.0 [facility] Comment on above: Performed By: #### 2 4323-8 #### LOPEZ Coreas ([id number]) [facility] ([facility]) [address] [place] [address] 74482 Immature granulocytes (Bld) [#/Vol] 0.06 x10*3/uL Normal 0.00-0.70 [facility] Comment on above: Performed By: #### 2 4323-8 #### LOPEZ Coreas ([id number]) [facility] ([facility]) [address] [place] [address] Immature granulocytes/100 WBC (Bld) 0.5 % Normal 0.0-0.9 [facility] Comment on above: Result Comment: Leonora ture Granulocyte Count (IG) includes promyelocytes, myelocytes and metamyelocytes but does not include bands. Percent differential counts (%) should be interpreted in the context of the absolute cell counts (cells/UL). Performed By: #### 2 4323-8 #### LOPEZ Coreas ([id number]) [facility] ([facility]) [address] [place] [address] 04986 Lymphocytes (Bld) [#/Vol] 1.58 x10*3/uL Normal 1.20-4.80 [facility] Comment on above: Performed By: #### 2 4323-8 #### LOPEZ Coreas ([id number]) [facility] ([facility]) [address] [place] [address] 40996 Lymphocytes/100 WBC (Bld) 13.5 % Normal 13.0-44.0 [facility] Comment on above: Performed By: #### 2 4323-8 #### LOPEZ Coreas ([id number]) [facility] ([facility]) [address] [place] [address] 79395 MCH (RBC) [Entitic mass] 29.9 pg Normal 26.0-34.0 [facility] Comment on above: Performed By: #### 2 4323-8 #### LOPEZ Coreas ([id number]) [facility] ([facility]) [address] [place] [address] 47135 MCHC (RBC) [Mass/Vol] 30.9 g/dL Low 32.0-36.0 [facility] Comment on above: Performed By: #### 2 4323-8 #### LOPEZ Coreas ([id number]) [facility] ([facility]) [address] [place] [address] 81974 MCV (RBC) [Entitic vol] 97 fL Normal 80-100 U [facility] Comment on above: Performed By: #### 2 4323-8 #### LOPEZ Coreas ([id number]) [facility] ([facility]) [address] [place] [address] 10202 Monocytes (Bld) [#/Vol] 0.58 x10*3/uL Normal 0.10-1.00 [facility] Comment on above: Performed By: #### 2 4323-8 #### LOPEZ Coreas ([id number]) [facility] ([facility]) [address] [place] [address] 28611 Monocytes/100 WBC (Bld) 5.0 % Normal 2.0-10.0 [facility] Comment on above: Performed By: #### 2 4323-8 #### LOPEZ Coreas ([id number]) [facility] ([facility]) [address] [place] [address] 75187 Neutrophils (Bld) [#/Vol] 9.40 x10*3/uL High 1.20-7.70 [facility] Comment on above: Result Comment: Perc ent differential counts (%) should be interpreted in the context of the absolute cell counts (cells/uL). Performed By: #### 2 4323-8 #### LOPEZ Coreas ([id number]) [facility] ([facility]) [address] [place] [address] 77323 Neutrophils/100 WBC (Bld) 80.6 % Normal 40.0-80.0 [facility] Comment on above: Performed By: #### 2 4323-8 #### LOPEZ Coreas ([id number]) [facility] ([facility]) [address] [place] [address] 61862 Nucleated RBC/100 WBC (Bld) [Ratio] 0.0 /100 WBCs Normal 0.0-0.0 [facility] Comment on above: Performed By: #### 2 4323-8 #### LOPEZ Coreas ([id number]) [facility] ([facility]) [address] [place] [address] 54546 Platelets (Bld) [#/Vol] 202 x10*3/uL Normal 150-450 [facility] Comment on above: Performed By: #### 2 4323-8 #### LOPEZ Coreas ([id number]) [facility] ([facility]) [address] [place] [address] RBC (Bld) [#/Vol] 2.98 x10*6/uL Low 4.00-5.20 [facility] Comment on above: Performed By: #### 2 4323-8 #### LOPEZ Coreas ([id number]) [facility] ([facility]) [address] [place] [address] WBC (Bld) [#/Vol] 11.7 x10*3/uL High 4.4-11.3 [facility] Comment on above: Performed By: #### 2 4323-8 #### LOPEZ Coreas ([id number]) [facility] ([facility]) [address] [place] [address] Magnesiumon 03-26-2025 Magnesium [Mass/Vol] 1.99 mg/dL 1.60 - 2.40 mg/dL [facility] Magnesium [Mass/Vol] 1.99 mg/dL Normal 1.60-2.40 [facility] Comment on above: Performed By: #### 1 9123-9 ####LOPEZ Coreas ([id number])[facility] ([facility])[id number] [place] [address] 77528 Magnesium [Mass/Vol]on 03-26 Interpretation and review of laboratory results Normal [facility] No Panel Informationon 03-26 [facility] Renal function 2000 panelon 03-26-2025 Albumin BCP dye [Mass/Vol] 3.9 g/dL 3.4 - 5.0 g/dL [facility] Anion gap [Moles/Vol] 11 mmol/L 10 - 2 0 mmol/L [facility] Calcium [Mass/Vol] 8.9 mg/dL 8.6 - 10. 6 mg/dL [facility] Chloride [Moles/Vol] 111 mmol/L High 98 - 10 7 mmol/L [facility] CO2 [Moles/Vol] 24 mmol/L 21 - 32 mmol/L [facility] Creatinine [Mass/Vol] 0.98 mg/dL 0.50 - 1.05 mg/dL [facility] GFR/1.73 sq M.predicted among non-blacks MDRD (S/P/Bld) [Vol rate/Area] 63 mL/min/{1.73_m2} - PINF [facility] Comment on above: Calculations of araceli mated GFR are performed using the 2020 CKD-EPI Study Refit equation without the race variable for the IDMS-Traceable creatinine methods. https://jasn.asnjournals.org/content///ASN.495 3448637 Glucose [Mass/Vol] 101 mg/dL High 74 - 99 mg/dL [facility] Interpretation and review of laboratory results Abnormal [facility] Phosphate [Mass/Vol] 2.9 mg/dL 2.5 - 4 .9 mg/dL [facility] Potassium [Moles/Vol] 4.1 mmol/L 3.5 - 5.3 mmol/L [facility] Sodium [Moles/Vol] 142 mmol/L 136 - 145 mmol/L [facility] Urea nitrogen [Mass/Vol] 18 mg/dL 6 - 23 mg/dL [facility] Albumin BCP dye [Mass/Vol] 3.9 g/dL Normal 3.4-5.0 [facility] Comment on above: Performed By: #### 2 4362-6 ####LOPEZ Coreas ([id number])[facility] ([facility])[address] [place] [address] Anion gap [Moles/Vol] 11 mmol/L Normal 10-20 [facility] Comment on above: Performed By: #### 2 4362-6 ####LOPEZ Coreas ([id number])[facility] ([facility])[address] [place] [address] Calcium [Mass/Vol] 8.9 mg/dL Normal 8.6-10.[address] [facility] Comment on above: Performed By: #### 2 4362-6 ####LOPEZ Coreas ([id number])[facility] ([facility])[address] [place] [address] Chloride [Moles/Vol] 111 mmol/L High 98-107 [facility] Comment on above: Performed By: #### 2 4362-6 ####LOPEZ FAN L ([id number])[facility] ([facility])[address] [place] [address] CO2 [Moles/Vol] 24 mmol/L Normal 21-32 [facility] Comment on above: Performed By: #### 2 4362-6 ####LOPEZ Coreas ([id number])[facility] ([facility])[address] [place] [address] Creatinine [Mass/Vol] 0.98 mg/dL Normal 0.50-1.05 [facility] Comment on above: Performed By: #### 2 4362-6 ####LOPEZ Coreas ([id number])[facility] ([facility])[address] [place] [address] Glomerular filtration rate/1.73 sq M.predicted 63 mL/min/1.73m*2 Normal >60 [facility] Comment on above: Result Comment: Calc ulations of estimated GFR are performed using the 2020 CKD-EPI Study Refit equation without the race variable for the IDMS-Traceable creatinine methods. https://jasn.asnjournals.org/content/early/ASN.279 0851803 Performed By: #### 2 4362-6 ####LOPEZ Coreas ([id number])[facility] ([facility])[address] [place] [address] Glucose [Mass/Vol] 101 mg/dL High 74-[address] [facility] Comment on above: Performed By: #### 2 4362-6 ####LOPEZ FAN L ([id number])[facility] ([facility])[address] [place] [address] Phosphate [Mass/Vol] 2.9 mg/dL Normal 2.5-4.9 [facility] Comment on above: Performed By: #### 2 4362-6 ####LOPEZ Coreas ([id number])[facility] ([facility])[address] [place] [address] 81238 Potassium [Moles/Vol] 4.1 mmol/L Normal 3.5-5.3 [facility] Comment on above: Performed By: #### 2 4362-6 ####LOPEZ Coreas ([id number])[facility] ([facility])[address] [place] [address] 45968 Sodium [Moles/Vol] 142 mmol/L Normal 136-[address] [facility] Comment on above: Performed By: #### 2 4362-6 ####LOPEZ Coreas ([id number])[facility] ([facility])[address] [place] [address] 12844 Urea nitrogen [Mass/Vol] 18 mg/dL Normal 6-23 [facility] Comment on above: Performed By: #### 2 4362-6 ####LOPEZ Coreas ([id number])[facility] ([facility])[address] [place] [address] 50817 Blood type and Indirect anti body screen panel (Bld)on 03-25-2025 ABO group Nom (Bld) A [facility] Blood group antibody screen Ql Negative [facility] D Ag Ql (Bld) Positive [facility] ABO group Nom (Bld) A Normal [facility] Comment on above: Performed By: #### 2 4323-8 #### LOPEZ Coreas ([id number]) [facility] ([facility]) [address] [place] [address] 02106 Blood group antibody screen Ql Negative Normal [facility] Comment on above: Performed By: #### 2 4323-8 #### LOPEZ Coreas ([id number]) [facility] ([facility]) [address] [place] [address] 47167 D Ag Ql (Bld) Positive Normal [facility] Comment on above: Performed By: #### 2 4323-8 #### LOPEZ Coreas ([id number]) [facility] ([facility]) [address] [place] [id number] CBC W Auto Differential pane l (Bld)on 03-25-2025 Basophils (Bld) [#/Vol] 0.12 10*3/uL High [facility] Basophils/100 WBC (Bld) 1.5 % 0.0 - 2.0 % [facility] Eosinophils (Bld) [#/Vol] 0.34 10*3/uL [facility] Eosinophils/100 WBC (Bld) 4.3 % 0.0 - 6.0 % [facility] Erythrocyte distribution width (RBC) [Ratio] 17.5 % High 11.5 - 14.5 % [facility] Hematocrit (Bld) [Volume fraction] 30.9 % Low 36.0 - 46.0 % [facility] Hemoglobin (Bld) [Mass/Vol] 9.2 g/dL Low 12.0 - 16.0 g/dL [facility] Immature granulocytes (Bld) [#/Vol] 0.02 10*3/uL [facility] Immature granulocytes/100 WBC (Bld) 0.3 % 0.0 - 0.9 % [facility] Comment on above: Immature Granulocyte Count (IG) includes promyelocytes, myelocytes and metamyelocytes but does not include bands. Percent differential counts (%) should be interpreted in the context of the absolute cell counts (cells/UL). Interpretation and review of laboratory results Abnormal [facility] Lymphocytes (Bld) [#/Vol] 1.87 10*3/uL [facility] Lymphocytes/100 WBC (Bld) 23.6 % 13.0 - 44.0 % [facility] MCH (RBC) [Entitic mass] 28.9 pg 26. 0 - 34.0 pg [facility] MCHC (RBC) [Mass/Vol] 29.8 g/dL Low 32.0 - 36.0 g/dL [facility] MCV (RBC) [Entitic vol] 97 fL 80 - 100 fL [facility] Monocytes (Bld) [#/Vol] 0.49 10*3/uL [facility] Monocytes/100 WBC (Bld) 6.2 % 2.0 - 10.0 % [facility] Neutrophils (Bld) [#/Vol] 5.07 10*3/uL [facility] Comment on above: Percent differential counts (%) should be interpreted in the context of the absolute cell counts (cells/uL). Neutrophils/100 WBC (Bld) 64.1 % 40.0 - 80.0 % [facility] Nucleated RBC/100 WBC (Bld) [Ratio] 0 % [facility] Platelets (Bld) [#/Vol] 201 10*3/uL [facility] RBC (Bld) [#/Vol] 3.18 10*6/uL Low [facility] WBC (Bld) [#/Vol] 7.9 10*3/uL [facility] Basophils (Bld) [#/Vol] 0.12 x10*3/uL High 0.00-0.10 [facility] Comment on above: Performed By: #### 2 4323-8 #### LOPEZ Coreas ([id number]) [facility] ([facility]) [address] [place] [address] 47407 Basophils/100 WBC (Bld) 1.5 % Normal 0.0-2.0 U [facility] Comment on above: Performed By: #### 2 4323-8 #### LOPEZ Coreas ([id number]) [facility] ([facility]) [address] [place] [address] Eosinophils (Bld) [#/Vol] 0.34 x10*3/uL Normal 0.00-0.70 [facility] Comment on above: Performed By: #### 2 4323-8 #### LOPEZ Coreas ([id number]) [facility] ([facility]) [address] [place] [address] Eosinophils/100 WBC (Bld) 4.3 % Normal 0.0-6.0 [facility] Comment on above: Performed By: #### 2 4323-8 #### LOPEZ Coreas (12921) [facility] ([facility]) [address] [place] [address] 47565 Erythrocyte distribution width (RBC) [Ratio] 17.5 % High 11.5-14.5 [facility] Comment on above: Performed By: #### 2 4323-8 #### LOPEZ Coreas ([id number]) [facility] ([facility]) [address] [place] [address] 71133 Hematocrit (Bld) [Volume fraction] 30.9 % Low 36.0-46.0 [facility] Comment on above: Performed By: #### 2 4323-8 #### LOPEZ Coreas (11054) [facility] ([facility]) [address] [place] [address] 60105 Hemoglobin (Bld) [Mass/Vol] 9.2 g/dL Low 12.0-16.0 [facility] Comment on above: Performed By: #### 2 4323-8 #### LOPEZ Coraes ([id number]) [facility] ([facility]) [address] [place] [address] 76403 Immature granulocytes (Bld) [#/Vol] 0.02 x10*3/uL Normal 0.00-0.70 [facility] Comment on above: Performed By: #### 2 4323-8 #### LOPEZ Coreas (01046) [facility] ([facility]) [address] [place] [address] 38361 Immature granulocytes/100 WBC (Bld) 0.3 % Normal 0.0-0.9 [facility] Comment on above: Result Comment: Leonora ture Granulocyte Count (IG) includes promyelocytes, myelocytes and metamyelocytes but does not include bands. Percent differential counts (%) should be interpreted in the context of the absolute cell counts (cells/UL). Performed By: #### 2 4323-8 #### LOPEZ Coreas ([id number]) [facility] ([facility]) [address] [place] [address] 12744 Lymphocytes (Bld) [#/Vol] 1.87 x10*3/uL Normal 1.20-4.80 [facility] Comment on above: Performed By: #### 2 4323-8 #### LOPEZ Coreas (78214) [facility] ([facility]) [address] [place] [address] 13160 Lymphocytes/100 WBC (Bld) 23.6 % Normal 13.0-44.0 [facility] Comment on above: Performed By: #### 2 4323-8 #### LOPEZ Coreas ([id number]) [facility] ([facility]) [address] [place] [address] 36342 MCH (RBC) [Entitic mass] 28.9 pg Normal 26.0-34.0 [facility] Comment on above: Performed By: #### 2 4323-8 #### LOPEZ Coreas ([id number]) [facility] ([facility]) [address] [place] [address] 40186 MCHC (RBC) [Mass/Vol] 29.8 g/dL Low 32.0-36.0 [facility] Comment on above: Performed By: #### 2 4323-8 #### LOPEZ Coreas ([id number]) [facility] ([facility]) [address] [place] [address] 41769 MCV (RBC) [Entitic vol] 97 fL Normal 80-100 U [facility] Comment on above: Performed By: #### 2 4323-8 #### LOPEZ Coreas ([id number]) [facility] ([facility]) [address] [place] [address] 45048 Monocytes (Bld) [#/Vol] 0.49 x10*3/uL Normal 0.10-1.00 [facility] Comment on above: Performed By: #### 2 4323-8 #### LOPEZ Coreas (06083) [facility] ([facility]) [address] [place] [address] 52993 Monocytes/100 WBC (Bld) 6.2 % Normal 2.0-10.0 U [facility] Comment on above: Performed By: #### 2 4323-8 #### LOPEZ Coraes ([id number]) [facility] ([facility]) [address] [place] [address] 01473 Neutrophils (Bld) [#/Vol] 5.07 x10*3/uL Normal 1.20-7.70 [facility] Comment on above: Result Comment: Perc ent differential counts (%) should be interpreted in the context of the absolute cell counts (cells/uL). Performed By: #### 2 4323-8 #### LOPEZ Coreas ([id number]) [facility] ([facility]) [id number] [place] [address] 16560 Neutrophils/100 WBC (Bld) 64.1 % Normal 40.0-80.0 [facility] Comment on above: Performed By: #### 2 4323-8 #### LOPEZ Coreas ([id number]) [facility] ([facility]) [id number] [place] [address] 35606 Nucleated RBC/100 WBC (Bld) [Ratio] 0.0 /100 WBCs Normal 0.0-0.0 [facility] Comment on above: Performed By: #### 2 4323-8 #### LOPEZ Coreas ([id number]) [facility] ([facility]) [address] [place] [address] Platelets (Bld) [#/Vol] 201 x10*3/uL Normal 150-450 [facility] Comment on above: Performed By: #### 2 4323-8 #### LOPEZ Coreas ([id number]) [facility] ([facility]) [address] [place] [address] RBC (Bld) [#/Vol] 3.18 x10*6/uL Low 4.00-5.20 [facility] Comment on above: Performed By: #### 2 4323-8 #### LOPEZ Coreas ([id number]) [facility] ([facility]) [id number] [place] [address] 30144 WBC (Bld) [#/Vol] 7.9 x10*3/uL Normal 4.4-11.3 [facility] Comment on above: Performed By: #### 2 4323-8 #### LOPEZ Coreas ([id number]) [facility] ([facility]) [address] [place] [address] ENTEROSCOPYon 03-25-2025 ENTEROSCOPY Table formatting fro m the original result was not included. Findings The esophagus, stomach and duodenum appeared normal. In the proximal jejunum, there were two areas of non-specific erythema seen. These did not have the typical appearance of angioectasias; nevertheless, the larger site was treated with a hemoclip (MRI compatible). Otherwise, the proximal and middle jejunum appeared normal to the extent visualized. No blood was seen. Bilious fluid was seen. No angioectasias, erosions, ulcerations, stricture, or masses were seen to the extent visualized. Recommendations Follow up with primary documentation nurse, Ivan Cotto DO - [facility]. Follow up with primary care physician, Florin Bailey DO. Follow up with Kena Asencio MD - Inpatient [facility] for further evaluation and management. Follow up with Floresita William MD and Kendall Brower MD - Inpatient [facility] for further evaluation and management. Indication Melena Inpatient device-assisted enteroscopy while on Plavix and aspirin for history of recurrent melena x 2 months with anemia blood loss and abnormal SBCE (video not provided for review) done at outside facility Staff Staff Role Matti Hodge MD Proceduralist Medications See Anesthesia Record. Preprocedure A history and physical has been performed, and patient medication allergies have been reviewed. The patient's tolerance of previous anesthesia has been reviewed. The risks and benefits of the procedure and the sedation options and risks were discussed with the patient. All questions were answered and informed consent obtained. Details of the Procedure The patient underwent general anesthesia, which was administered by an anesthesia professional. The patient's blood pressure, heart rate, level of consciousness, oxygen saturation, respirations, ECG and ETCO2 were monitored throughout the procedure. The scope was introduced through the mouth and advanced to the middle part of the jejunum. Insufflated with carbon dioxide. Tattoo was not placed at the distal extent of the exam. The procedure was performed using a single balloon overtube. Fluoroscopy was not used. Retroflexion was performed in the cardia. The patient's estimated blood loss was minimal. The procedure was not difficult. FluoroscopyThe patient tolerated the procedure well. There were no apparent adverse events. Events Procedure Events Event Event Time ENDO SCOPE IN TIME 03/25/2025 12:07 PM ENDO SCOPE OUT TIME 03/25/2025 1:05 PM Specimens No specimens collected Procedure Location [facility] [address] [facility] [id number] Referring Provider Meir Hood MD Procedure Provider Matti Hodge MD [facility] Enteroscopy Study observatio n Narrativeon 03-25-2025 Table formatting fro m the original result was not included. Findings The esophagus, stomach and duodenum appeared normal. In the proximal jejunum, there were two areas of non-specific erythema seen. These did not have the typical appearance of angioectasias; nevertheless, the larger site was treated with a hemoclip (MRI compatible). Otherwise, the proximal and middle jejunum appeared normal to the extent visualized. No blood was seen. Bilious fluid was seen. No angioectasias, erosions, ulcerations, stricture, or masses were seen to the extent visualized. Recommendations Follow up with primary documentation nurse, Ivan Cotto DO - [facility]. Follow up with primary care physician, Florin Bailey DO. Follow up with Kena Asencio MD - Inpatient [facility] for further evaluation and management. Follow up with Floresita William MD and Kendall Brower MD - Inpatient [facility] for further evaluation and management. Indication Melena Inpatient device-assisted enteroscopy while on Plavix and aspirin for history of recurrent melena x 2 months with anemia blood loss and abnormal SBCE (video not provided for review) done at outside facility Staff Staff Role Matti Hodge MD Proceduralist Medications See Anesthesia Record. Preprocedure A history and physical has been performed, and patient medication allergies have been reviewed. The patient's tolerance of previous anesthesia has been reviewed. The risks and benefits of the procedure and the sedation options and risks were discussed with the patient. All questions were answered and informed consent obtained. Details of the Procedure The patient underwent general anesthesia, which was administered by an anesthesia professional. The patient's blood pressure, heart rate, level of consciousness, oxygen saturation, respirations, ECG and ETCO2 were monitored throughout the procedure. The scope was introduced through the mouth and advanced to the middle part of the jejunum. Insufflated with carbon dioxide. Tattoo was not placed at the distal extent of the exam. The procedure was performed using a single balloon overtube. Fluoroscopy was not used. Retroflexion was performed in the cardia. The patient's estimated blood loss was minimal. The procedure was not difficult. FluoroscopyThe patient tolerated the procedure well. There were no apparent adverse events. Events Procedure Events Event Event Time ENDO SCOPE IN TIME 03/25/2025 12:07 PM ENDO SCOPE OUT TIME 03/25/2025 1:05 PM Specimens No specimens collected Procedure Location [facility] [id number] [place] [id number] Referring Provider Meir Hood MD Procedure Provider Matti Hodge MD [facility] Work Phone: [facility] Work Phone: Radiology Study observation (narrative) [facility] Work Phone: Magnesiumon 03-25-2025 Magnesium [Mass/Vol] 2.03 mg/dL 1.60 - 2.40 mg/dL [facility] Magnesium [Mass/Vol] 2.03 mg/dL Normal 1.60-2.40 [facility] Comment on above: Performed By: #### 2 4323-8 #### LOPEZ Coreas ([id number]) [facility] ([facility]) [address] [place] [address] Magnesium [Mass/Vol]on 03-25 Interpretation and review of laboratory results Normal [facility] No Panel Informationon 03-25 [facility] Renal function 2000 panelon 03-25-2025 Albumin BCP dye [Mass/Vol] 3.8 g/dL 3.4 - 5.0 g/dL [facility] Anion gap [Moles/Vol] 14 mmol/L 10 - 2 0 mmol/L [facility] Calcium [Mass/Vol] 8.9 mg/dL 8.6 - 10. 6 mg/dL [facility] Chloride [Moles/Vol] 110 mmol/L High 98 - 10 7 mmol/L [facility] CO2 [Moles/Vol] 22 mmol/L 21 - 32 mmol/L [facility] Creatinine [Mass/Vol] 1.02 mg/dL 0.50 - 1.05 mg/dL [facility] GFR/1.73 sq M.predicted among non-blacks MDRD (S/P/Bld) [Vol rate/Area] 60 mL/min/{1.73_m2} Low - PINF [facility] Comment on above: Calculations of araceli mated GFR are performed using the 2020 CKD-EPI Study Refit equation without the race variable for the IDMS-Traceable creatinine methods. https://jasn.asnjournals.org/content/early/ASN.070 9639017 Glucose [Mass/Vol] 90 mg/dL 74 - 99 mg/dL [facility] Interpretation and review of laboratory results Abnormal [facility] Phosphate [Mass/Vol] 3.8 mg/dL 2.5 - 4 .9 mg/dL [facility] Potassium [Moles/Vol] 3.9 mmol/L 3.5 - 5.3 mmol/L [facility] Sodium [Moles/Vol] 142 mmol/L 136 - 145 mmol/L [facility] Urea nitrogen [Mass/Vol] 20 mg/dL 6 - 23 mg/dL [facility] Albumin BCP dye [Mass/Vol] 3.8 g/dL Normal 3.4-5.0 [facility] Comment on above: Performed By: #### 2 4323-8 #### LOPEZ Coreas ([id number]) [facility] ([facility]) [id number] [place] [address] Anion gap [Moles/Vol] 14 mmol/L Normal 10-20 [facility] Comment on above: Performed By: #### 2 4323-8 #### LOPEZ Coreas ([id number]) [facility] ([facility]) [address] [place] [address] Calcium [Mass/Vol] 8.9 mg/dL Normal 8.6-10.[address] [facility] Comment on above: Performed By: #### 2 4323-8 #### LOPEZ Coreas ([id number]) [facility] ([facility]) [address] [place] [address] Chloride [Moles/Vol] 110 mmol/L High 98-107 [facility] Comment on above: Performed By: #### 2 4323-8 #### LOPEZ Coreas ([id number]) [facility] ([facility]) [address] [place] [address] CO2 [Moles/Vol] 22 mmol/L Normal 21-32 [facility] Comment on above: Performed By: #### 2 4323-8 #### LOPEZ Coreas ([id number]) [facility] ([facility]) [address] [place] [address] Creatinine [Mass/Vol] 1.02 mg/dL Normal 0.50-1.05 [facility] Comment on above: Performed By: #### 2 4323-8 #### LOPEZ Coreas ([id number]) [facility] ([facility]) [address] [place] [address] Glomerular filtration rate/1.73 sq M.predicted 60 mL/min/1.73m*2 Low >60 [facility] Comment on above: Result Comment: Calc ulations of estimated GFR are performed using the 2020 CKD-EPI Study Refit equation without the race variable for the IDMS-Traceable creatinine methods. https://jasn.asnjournals.org/content//ASN.012 9468940 Performed By: #### 2 4323-8 #### LOPEZ Coreas ([id number]) [facility] ([facility]) [address] [place] [address] Glucose [Mass/Vol] 90 mg/dL Normal 74-[address] [facility] Comment on above: Performed By: #### 2 4323-8 #### LOPEZ Coreas ([id number]) [facility] ([facility]) [address] [place] [address] Phosphate [Mass/Vol] 3.8 mg/dL Normal 2.5-4.9 [facility] Comment on above: Performed By: #### 2 4323-8 #### LOPEZ FAN L ([id number]) [facility] ([facility]) [address] [place] [address] Potassium [Moles/Vol] 3.9 mmol/L Normal 3.5-5.3 [facility] Comment on above: Performed By: #### 2 4323-8 #### LOPEZ Coreas ([id number]) [facility] ([facility]) [address] [place] [address] Sodium [Moles/Vol] 142 mmol/L Normal 136-[address] [facility] Comment on above: Performed By: #### 2 4323-8 #### LOPEZ FAN L ([id number]) [facility] ([facility]) [address] [place] [address] Urea nitrogen [Mass/Vol] 20 mg/dL Normal 6-23 [facility] Comment on above: Performed By: #### 2 4323-8 #### LOPEZ FAN L ([id number]) [facility] ([facility]) [address] [place] [address] CBC W Auto Differential pane l (Bld)on 03-24-2025 Basophils (Bld) [#/Vol] 0.12 10*3/uL High [facility] Basophils/100 WBC (Bld) 1.4 % 0.0 - 2.0 % [facility] Eosinophils (Bld) [#/Vol] 0.22 10*3/uL [facility] Eosinophils/100 WBC (Bld) 2.5 % 0.0 - 6.0 % [facility] Erythrocyte distribution width (RBC) [Ratio] 17.5 % High 11.5 - 14.5 % [facility] Hematocrit (Bld) [Volume fraction] 31.8 % Low 36.0 - 46.0 % [facility] Hemoglobin (Bld) [Mass/Vol] 9.4 g/dL Low 12.0 - 16.0 g/dL [facility] Immature granulocytes (Bld) [#/Vol] 0.05 10*3/uL [facility] Immature granulocytes/100 WBC (Bld) 0.6 % 0.0 - 0.9 % [facility] Comment on above: Immature Granulocyte Count (IG) includes promyelocytes, myelocytes and metamyelocytes but does not include bands. Percent differential counts (%) should be interpreted in the context of the absolute cell counts (cells/UL). Interpretation and review of laboratory results Abnormal [facility] Lymphocytes (Bld) [#/Vol] 1.29 10*3/uL [facility] Lymphocytes/100 WBC (Bld) 14.6 % 13.0 - 44.0 % [facility] MCH (RBC) [Entitic mass] 28.9 pg 26. 0 - 34.0 pg [facility] MCHC (RBC) [Mass/Vol] 29.6 g/dL Low 32.0 - 36.0 g/dL [facility] MCV (RBC) [Entitic vol] 98 fL 80 - 100 fL [facility] Monocytes (Bld) [#/Vol] 0.37 10*3/uL [facility] Monocytes/100 WBC (Bld) 4.2 % 2.0 - 10.0 % [facility] Neutrophils (Bld) [#/Vol] 6.78 10*3/uL [facility] Comment on above: Percent differential counts (%) should be interpreted in the context of the absolute cell counts (cells/uL). Neutrophils/100 WBC (Bld) 76.7 % 40.0 - 80.0 % [facility] Nucleated RBC/100 WBC (Bld) [Ratio] 0 % [facility] Platelets (Bld) [#/Vol] 203 10*3/uL [facility] RBC (Bld) [#/Vol] 3.25 10*6/uL Low [facility] WBC (Bld) [#/Vol] 8.8 10*3/uL [facility] Basophils (Bld) [#/Vol] 0.12 x10*3/uL High 0.00-0.10 [facility] Comment on above: Performed By: #### 2 4323-8 #### LOPEZ Coreas ([id number]) [facility] ([facility]) [address] [place] [address]114 Basophils/100 WBC (Bld) 1.4 % Normal 0.0-2.0 [facility] Comment on above: Performed By: #### 2 4323-8 #### LOPEZ Coreas ([id number]) [facility] ([facility]) [address] [place] [address] Eosinophils (Bld) [#/Vol] 0.22 x10*3/uL Normal 0.00-0.70 [facility] Comment on above: Performed By: #### 2 4323-8 #### LOPEZ Coreas ([id number]) [facility] ([facility]) [address] [place] [address]8596 Eosinophils/100 WBC (Bld) 2.5 % Normal 0.0-6.0 [facility] Comment on above: Performed By: #### 2 4323-8 #### LOPEZ Coreas ([id number]) [facility] ([facility]) [address] [place] [address]7596 Erythrocyte distribution width (RBC) [Ratio] 17.5 % High 11.5-14.5 [facility] Comment on above: Performed By: #### 2 4323-8 #### LOPEZ Coreas ([id number]) [facility] ([facility]) [address] [place] [address]15 Hematocrit (Bld) [Volume fraction] 31.8 % Low 36.0-46.0 [facility] Comment on above: Performed By: #### 2 4323-8 #### LOPEZ Coreas ([id number]) [facility] ([facility]) [address] [place] [address]00 Hemoglobin (Bld) [Mass/Vol] 9.4 g/dL Low 12.0-16.0 [facility] Comment on above: Performed By: #### 2 4323-8 #### LOPEZ Coreas ([id number]) [facility] ([facility]) [address] [place] [address]13 Immature granulocytes (Bld) [#/Vol] 0.05 x10*3/uL Normal 0.00-0.70 [facility] Comment on above: Performed By: #### 2 4323-8 #### LOPEZ Coreas ([id number]) [facility] ([facility]) [address] [place] [address] 47249 Immature granulocytes/100 WBC (Bld) 0.6 % Normal 0.0-0.9 [facility] Comment on above: Result Comment: Leonora ture Granulocyte Count (IG) includes promyelocytes, myelocytes and metamyelocytes but does not include bands. Percent differential counts (%) should be interpreted in the context of the absolute cell counts (cells/UL). Performed By: #### 2 4323-8 #### LOPEZ Coreas ([id number]) [facility] ([facility]) [address] [place] [address] 59536 Lymphocytes (Bld) [#/Vol] 1.29 x10*3/uL Normal 1.20-4.80 [facility] Comment on above: Performed By: #### 2 4323-8 #### LOPEZ Coreas (50905) [facility] ([facility]) [address] [place] [address]304 Lymphocytes/100 WBC (Bld) 14.6 % Normal 13.0-44.0 [facility] Comment on above: Performed By: #### 2 4323-8 #### LOPEZ Coreas ([id number]) [facility] ([facility]) [address] [place] [address] 38732 MCH (RBC) [Entitic mass] 28.9 pg Normal 26.0-34.0 [facility] Comment on above: Performed By: #### 2 4323-8 #### LOPEZ Coreas (47016) [facility] ([facility]) [address] [place] [address] MCHC (RBC) [Mass/Vol] 29.6 g/dL Low 32.0-36.0 [facility] Comment on above: Performed By: #### 2 4323-8 #### LOPEZ Coreas ([id number]) [facility] ([facility]) [address] [place] [address] MCV (RBC) [Entitic vol] 98 fL Normal 80-100 U [facility] Comment on above: Performed By: #### 2 4323-8 #### LOPEZ Coreas ([id number]) [facility] ([facility]) [address] [place] [address]9600 Monocytes (Bld) [#/Vol] 0.37 x10*3/uL Normal 0.10-1.00 [facility] Comment on above: Performed By: #### 2 4323-8 #### LOPEZ Coreas ([id number]) [facility] ([facility]) [address] [place] [address] 18212 Monocytes/100 WBC (Bld) 4.2 % Normal 2.0-10.0 U [facility] Comment on above: Performed By: #### 2 4323-8 #### LOPEZ Coreas ([id number]) [facility] ([facility]) [address] [place] [address] 58716 Neutrophils (Bld) [#/Vol] 6.78 x10*3/uL Normal 1.20-7.70 [facility] Comment on above: Result Comment: Perc ent differential counts (%) should be interpreted in the context of the absolute cell counts (cells/uL). Performed By: #### 2 4323-8 #### LOPEZ Coreas ([id number]) [facility] ([facility]) [address] [place] [address] 20307 Neutrophils/100 WBC (Bld) 76.7 % Normal 40.0-80.0 [facility] Comment on above: Performed By: #### 2 4323-8 #### LOPEZ Coreas ([id number]) [facility] ([facility]) [address] [place] [address] 16792 Nucleated RBC/100 WBC (Bld) [Ratio] 0.0 /100 WBCs Normal 0.0-0.0 [facility] Comment on above: Performed By: #### 2 4323-8 #### LOPEZ Coreas ([id number]) [facility] ([facility]) [address] [place] [address] 33480 Platelets (Bld) [#/Vol] 203 x10*3/uL Normal 150-450 [facility] Comment on above: Performed By: #### 2 4323-8 #### LOPEZ Coreas ([id number]) [facility] ([facility]) [address] [place] [address] 47742 RBC (Bld) [#/Vol] 3.25 x10*6/uL Low 4.00-5.20 [facility] Comment on above: Performed By: #### 2 4323-8 #### LOPEZ Coreas ([id number]) [facility] ([facility]) [address] [place] [address] 85118 WBC (Bld) [#/Vol] 8.8 x10*3/uL Normal 4.4-11.3 [facility] Comment on above: Performed By: #### 2 4323-8 #### LOPEZ Coreas ([id number]) [facility] ([facility]) [address] [place] [address] 11474 Magnesiumon 03-24-2025 Magnesium [Mass/Vol] 2.17 mg/dL 1.60 - 2.40 mg/dL [facility] Magnesium [Mass/Vol] 2.17 mg/dL Normal 1.60-2.40 [facility] Comment on above: Performed By: #### 2 4323-8 #### LOPEZ Coreas ([id number]) [facility]) [address] [place] [address] 07315 Magnesium [Mass/Vol]on 03-24 Interpretation and review of laboratory results Normal [facility] No Panel Informationon 03-24 [facility] Renal function 2000 panelon 03-24-2025 Albumin BCP dye [Mass/Vol] 3.9 g/dL 3.4 - 5.0 g/dL [facility] Anion gap [Moles/Vol] 12 mmol/L 10 - 2 0 mmol/L [facility] Calcium [Mass/Vol] 8.8 mg/dL 8.6 - 10. 6 mg/dL [facility] Chloride [Moles/Vol] 109 mmol/L High 98 - 10 7 mmol/L [facility] CO2 [Moles/Vol] 24 mmol/L 21 - 32 mmol/L [facility] Creatinine [Mass/Vol] 1.02 mg/dL 0.50 - 1.05 mg/dL [facility] GFR/1.73 sq M.predicted among non-blacks MDRD (S/P/Bld) [Vol rate/Area] 60 mL/min/{1.73_m2} Low - PINF [facility] Comment on above: Calculations of araceli mated GFR are performed using the 2020 CKD-EPI Study Refit equation without the race variable for the IDMS-Traceable creatinine methods. https://jasn.asnjournals.org/content//ASN.820 8078980 Glucose [Mass/Vol] 122 mg/dL High 74 - 99 mg/dL [facility] Interpretation and review of laboratory results Abnormal [facility] Phosphate [Mass/Vol] 2.8 mg/dL 2.5 - 4 .9 mg/dL [facility] Potassium [Moles/Vol] 3.7 mmol/L 3.5 - 5.3 mmol/L [facility] Sodium [Moles/Vol] 141 mmol/L 136 - 145 mmol/L [facility] Urea nitrogen [Mass/Vol] 20 mg/dL 6 - 23 mg/dL [facility] Albumin BCP dye [Mass/Vol] 3.9 g/dL Normal 3.4-5.0 [facility] Comment on above: Performed By: #### 2 4323-8 #### LOPEZ Coreas ([id number]) [facility] ([facility]) [address] [place] [address] Anion gap [Moles/Vol] 12 mmol/L Normal 10-20 [facility] Comment on above: Performed By: #### 2 4323-8 #### LOPEZ FAN L ([id number]) [facility] ([facility]) [address] [place] [address] Calcium [Mass/Vol] 8.8 mg/dL Normal 8.6-10.[address] [facility] Comment on above: Performed By: #### 2 4323-8 #### LOPEZ AYONMOTZER L ([id number]) [facility] ([facility]) [address] [place] [address] 51778 Chloride [Moles/Vol] 109 mmol/L High 98-107 [facility] Comment on above: Performed By: #### 2 4323-8 #### LOPEZ AYONMOTZER L ([id number]) [facility] ([facility]) [address] [place] [address] 15144 CO2 [Moles/Vol] 24 mmol/L Normal 21-32 [facility] Comment on above: Performed By: #### 2 4323-8 #### LOPEZ AYONMOTZER L ([id number]) [facility] ([facility]) [address] [place] [address]1957 Creatinine [Mass/Vol] 1.02 mg/dL Normal 0.50-1.05 [facility] Comment on above: Performed By: #### 2 4323-8 #### LOPEZ SHEETSTZER L ([id number]) [facility] ([facility]) [id number] [place] [address] 16036 Glomerular filtration rate/1.73 sq M.predicted 60 mL/min/1.73m*2 Low >60 [facility] Comment on above: Result Comment: Calc ulations of estimated GFR are performed using the 2020 CKD-EPI Study Refit equation without the race variable for the IDMS-Traceable creatinine methods. https://jasn.asnjournals.org/content//ASN.117 1855120 Performed By: #### 2 4323-8 #### LOPEZ Coreas ([id number]) [facility] ([facility]) [address] [place] [address] 39202 Glucose [Mass/Vol] 122 mg/dL High 74-[address] [facility] Comment on above: Performed By: #### 2 4323-8 #### LOPEZ Coreas ([id number]) [facility] ([facility]) [address] [place] [address] 95001 Phosphate [Mass/Vol] 2.8 mg/dL Normal 2.5-4.9 [facility] Comment on above: Performed By: #### 2 4323-8 #### LOPEZ Coreas ([id number]) [facility] ([facility]) [address] [place] [address] 33584 Potassium [Moles/Vol] 3.7 mmol/L Normal 3.5-5.3 [facility] Comment on above: Performed By: #### 2 4323-8 #### LOPEZ Coreas ([id number]) [facility] ([facility]) [address] [place] [address] 50133 Sodium [Moles/Vol] 141 mmol/L Normal 136-[address] [facility] Comment on above: Performed By: #### 2 4323-8 #### LOPEZ Coreas ([id number]) [facility]) [address] [place] [address] 78264 Urea nitrogen [Mass/Vol] 20 mg/dL Normal 6-23 [facility] Comment on above: Performed By: #### 2 4323-8 #### LOPEZ FAN L ([id number]) [facility] ([facility]) [address] [place] [address] 22415 CBC W Auto Differential pane l (Bld)on 03-23-2025 Basophils (Bld) [#/Vol] 0.12 10*3/uL High [facility] Basophils/100 WBC (Bld) 1.6 % 0.0 - 2.0 % [facility] Eosinophils (Bld) [#/Vol] 0.25 10*3/uL [facility] Eosinophils/100 WBC (Bld) 3.3 % 0.0 - 6.0 % [facility] Erythrocyte distribution width (RBC) [Ratio] 17.5 % High 11.5 - 14.5 % [facility] Hematocrit (Bld) [Volume fraction] 30.5 % Low 36.0 - 46.0 % [facility] Hemoglobin (Bld) [Mass/Vol] 9.6 g/dL Low 12.0 - 16.0 g/dL [facility] Immature granulocytes (Bld) [#/Vol] 0.02 10*3/uL [facility] Immature granulocytes/100 WBC (Bld) 0.3 % 0.0 - 0.9 % [facility] Comment on above: Immature Granulocyte Count (IG) includes promyelocytes, myelocytes and metamyelocytes but does not include bands. Percent differential counts (%) should be interpreted in the context of the absolute cell counts (cells/UL). Interpretation and review of laboratory results Abnormal [facility] Lymphocytes (Bld) [#/Vol] 1.65 10*3/uL [facility] Lymphocytes/100 WBC (Bld) 22 % 13.0 - 44.0 % [facility] MCH (RBC) [Entitic mass] 29.8 pg 26. 0 - 34.0 pg [facility] MCHC (RBC) [Mass/Vol] 31.5 g/dL Low 32.0 - 36.0 g/dL [facility] MCV (RBC) [Entitic vol] 95 fL 80 - 100 fL [facility] Monocytes (Bld) [#/Vol] 0.46 10*3/uL [facility] Monocytes/100 WBC (Bld) 6.1 % 2.0 - 10.0 % [facility] Neutrophils (Bld) [#/Vol] 4.99 10*3/uL [facility] Comment on above: Percent differential counts (%) should be interpreted in the context of the absolute cell counts (cells/uL). Neutrophils/100 WBC (Bld) 66.7 % 40.0 - 80.0 % [facility] Nucleated RBC/100 WBC (Bld) [Ratio] 0 % [facility] Platelets (Bld) [#/Vol] 206 10*3/uL [facility] RBC (Bld) [#/Vol] 3.22 10*6/uL Low [facility] WBC (Bld) [#/Vol] 7.5 10*3/uL [facility] Basophils (Bld) [#/Vol] 0.12 x10*3/uL High 0.00-0.10 [facility] Comment on above: Performed By: #### 2 4323-8 #### LOPEZ Coreas ([id number]) [facility] ([facility]) [address] [place] [address] 55502 Basophils/100 WBC (Bld) 1.6 % Normal 0.0-2.0 U [facility] Comment on above: Performed By: #### 2 4323-8 #### LOPEZ Coreas ([id number]) [facility] ([facility]) [address] [place] [address] 52779 Eosinophils (Bld) [#/Vol] 0.25 x10*3/uL Normal 0.00-0.70 [facility] Comment on above: Performed By: #### 2 4323-8 #### LOPEZ FAN L ([id number]) [facility] ([facility]) [address] [place] [address] 12344 Eosinophils/100 WBC (Bld) 3.3 % Normal 0.0-6.0 [facility] Comment on above: Performed By: #### 2 4323-8 #### LOPEZ Coreas ([id number]) [facility] ([facility]) [id number] [place] [address] 67493 Erythrocyte distribution width (RBC) [Ratio] 17.5 % High 11.5-14.5 [facility] Comment on above: Performed By: #### 2 4323-8 #### LOPEZ Coreas ([id number]) [facility] ([facility]) [address] [place] [address] 58442 Hematocrit (Bld) [Volume fraction] 30.5 % Low 36.0-46.0 [facility] Comment on above: Performed By: #### 2 4323-8 #### LOPEZ Coreas ([id number]) [facility] ([facility]) [id number] [place] [address] 10691 Hemoglobin (Bld) [Mass/Vol] 9.6 g/dL Low 12.0-16.0 [facility] Comment on above: Performed By: #### 2 4323-8 #### LOPEZ Coreas ([id number]) [facility] ([facility]) [id number] [place] [address] 97657 Immature granulocytes (Bld) [#/Vol] 0.02 x10*3/uL Normal 0.00-0.70 [facility] Comment on above: Performed By: #### 2 4323-8 #### LOPEZ Coreas ([id number]) [facility] ([facility]) [address] [place] [address] 54189 Immature granulocytes/100 WBC (Bld) 0.3 % Normal 0.0-0.9 [facility] Comment on above: Result Comment: Leonora ture Granulocyte Count (IG) includes promyelocytes, myelocytes and metamyelocytes but does not include bands. Percent differential counts (%) should be interpreted in the context of the absolute cell counts (cells/UL). Performed By: #### 2 4323-8 #### LOPEZ Coreas ([id number]) [facility] ([facility]) [id number] [place] [address] 28865 Lymphocytes (Bld) [#/Vol] 1.65 x10*3/uL Normal 1.20-4.80 [facility] Comment on above: Performed By: #### 2 4323-8 #### LOPEZ Coreas ([id number]) [facility] ([facility]) [id number] [place] [address] 22823 Lymphocytes/100 WBC (Bld) 22.0 % Normal 13.0-44.0 [facility] Comment on above: Performed By: #### 2 4323-8 #### LOPEZ Coreas ([id number]) [facility] ([facility]) [address] [place] [address] MCH (RBC) [Entitic mass] 29.8 pg Normal 26.0-34.0 [facility] Comment on above: Performed By: #### 2 4323-8 #### LOPEZ Coreas ([id number]) [facility] ([facility]) [address] [place] [address] MCHC (RBC) [Mass/Vol] 31.5 g/dL Low 32.0-36.0 [facility] Comment on above: Performed By: #### 2 432-8 #### LOPEZ Coreas ([id number]) [facility] ([facility]) [address] [place] [address] 11517 MCV (RBC) [Entitic vol] 95 fL Normal 80-100 U [facility] Comment on above: Performed By: #### 2 432-8 #### LOPEZ Coreas ([id number]) [facility] ([facility]) [address] [place] [address] 36019 Monocytes (Bld) [#/Vol] 0.46 x10*3/uL Normal 0.10-1.00 [facility] Comment on above: Performed By: #### 2 4323-8 #### LOPEZ Coreas ([id number]) [facility] ([facility]) [address] [place] [address] Monocytes/100 WBC (Bld) 6.1 % Normal 2.0-10.0 [facility] Comment on above: Performed By: #### 2 4323-8 #### LOPEZ Coreas ([id number]) [facility] ([facility]) [address] [place] [address] 52511 Neutrophils (Bld) [#/Vol] 4.99 x10*3/uL Normal 1.20-7.70 [facility] Comment on above: Result Comment: Perc ent differential counts (%) should be interpreted in the context of the absolute cell counts (cells/uL). Performed By: #### 2 4323-8 #### LOPEZ Coreas ([id number]) [facility] ([facility]) [address] [place] [address] 96923 Neutrophils/100 WBC (Bld) 66.7 % Normal 40.0-80.0 [facility] Comment on above: Performed By: #### 2 4323-8 #### LOPEZ Coreas ([id number]) [facility] ([facility]) [address] [place] [address] 54517 Nucleated RBC/100 WBC (Bld) [Ratio] 0.0 /100 WBCs Normal 0.0-0.0 [facility] Comment on above: Performed By: #### 2 4323-8 #### LOPEZ Coreas ([id number]) [facility] ([facility]) [address] [place] [address] 00062 Platelets (Bld) [#/Vol] 206 x10*3/uL Normal 150-450 [facility] Comment on above: Performed By: #### 2 4323-8 #### LOPEZ Coreas ([id number]) [facility] ([facility]) [address] [place] [address] 23068 RBC (Bld) [#/Vol] 3.22 x10*6/uL Low 4.00-5.20 [facility] Comment on above: Performed By: #### 2 4323-8 #### LOPEZ Coreas ([id number]) [facility] ([facility]) [address] [place] [address] 04725 WBC (Bld) [#/Vol] 7.5 x10*3/uL Normal 4.4-11.3 [facility] Comment on above: Performed By: #### 2 4323-8 #### LOPEZ FAN L ([id number]) [facility] ([facility]) [address] [place] [address] 41830 Basophils (Bld) [#/Vol] 0.11 10*3/uL High [facility] Basophils/100 WBC (Bld) 1.5 % 0.0 - 2.0 % [facility] Eosinophils (Bld) [#/Vol] 0.27 10*3/uL [facility] Eosinophils/100 WBC (Bld) 3.7 % 0.0 - 6.0 % [facility] Erythrocyte distribution width (RBC) [Ratio] 17.9 % High 11.5 - 14.5 % [facility] Hematocrit (Bld) [Volume fraction] 29.7 % Low 36.0 - 46.0 % [facility] Hemoglobin (Bld) [Mass/Vol] 9.3 g/dL Low 12.0 - 16.0 g/dL [facility] Immature granulocytes (Bld) [#/Vol] 0.03 10*3/uL [facility] Immature granulocytes/100 WBC (Bld) 0.4 % 0.0 - 0.9 % [facility] Comment on above: Immature Granulocyte Count (IG) includes promyelocytes, myelocytes and metamyelocytes but does not include bands. Percent differential counts (%) should be interpreted in the context of the absolute cell counts (cells/UL). Interpretation and review of laboratory results Abnormal [facility] Lymphocytes (Bld) [#/Vol] 1.32 10*3/uL [facility] Lymphocytes/100 WBC (Bld) 18.2 % 13.0 - 44.0 % [facility] MCH (RBC) [Entitic mass] 29.8 pg 26. 0 - 34.0 pg [facility] MCHC (RBC) [Mass/Vol] 31.3 g/dL Low 32.0 - 36.0 g/dL [facility] MCV (RBC) [Entitic vol] 95 fL 80 - 100 fL [facility] Monocytes (Bld) [#/Vol] 0.49 10*3/uL [facility] Monocytes/100 WBC (Bld) 6.7 % 2.0 - 10.0 % [facility] Neutrophils (Bld) [#/Vol] 5.05 10*3/uL [facility] Comment on above: Percent differential counts (%) should be interpreted in the context of the absolute cell counts (cells/uL). Neutrophils/100 WBC (Bld) 69.5 % 40.0 - 80.0 % [facility] Nucleated RBC/100 WBC (Bld) [Ratio] 0 % [facility] Platelets (Bld) [#/Vol] 178 10*3/uL [facility] RBC (Bld) [#/Vol] 3.12 10*6/uL Low [facility] WBC (Bld) [#/Vol] 7.3 10*3/uL [facility] Basophils (Bld) [#/Vol] 0.11 x10*3/uL High 0.00-0.10 [facility] Comment on above: Performed By: #### 3 4529-8 #### LOPEZ Coreas ([id number]) [facility] ([facility]) [address] [place] [address] 69158 Basophils/100 WBC (Bld) 1.5 % Normal 0.0-2.0 [facility] Comment on above: Performed By: #### 3 4529-8 #### LOPEZ Coreas ([id number]) [facility] ([facility]) [address] [place] [address] 71131 Eosinophils (Bld) [#/Vol] 0.27 x10*3/uL Normal 0.00-0.70 [facility] Comment on above: Performed By: #### 3 4529-8 #### LOPEZ Coreas ([id number]) [facility] ([facility]) [address] [place] [address] 52889 Eosinophils/100 WBC (Bld) 3.7 % Normal 0.0-6.0 [facility] Comment on above: Performed By: #### 3 4529-8 #### LOPEZ Coreas ([id number]) [facility] ([facility]) [address] [place] [address] 85510 Erythrocyte distribution width (RBC) [Ratio] 17.9 % High 11.5-14.5 [facility] Comment on above: Performed By: #### 3 4529-8 #### LOPEZ Coreas ([id number]) [facility] ([facility]) [address] [place] [address] 49323 Hematocrit (Bld) [Volume fraction] 29.7 % Low 36.0-46.0 [facility] Comment on above: Performed By: #### 3 4529-8 #### LOPEZ Coreas ([id number]) [facility] ([facility]) [id number] [place] [address] 20396 Hemoglobin (Bld) [Mass/Vol] 9.3 g/dL Low 12.0-16.0 [facility] Comment on above: Performed By: #### 3 4529-8 #### LOPEZ Coreas ([id number]) [facility] ([facility]) [address] [place] [address] 75030 Immature granulocytes (Bld) [#/Vol] 0.03 x10*3/uL Normal 0.00-0.70 [facility] Comment on above: Performed By: #### 3 4529-8 #### LOPEZ Coreas ([id number]) [facility] ([facility]) [address] [place] [address] 60193 Immature granulocytes/100 WBC (Bld) 0.4 % Normal 0.0-0.9 [facility] Comment on above: Result Comment: Leonora ture Granulocyte Count (IG) includes promyelocytes, myelocytes and metamyelocytes but does not include bands. Percent differential counts (%) should be interpreted in the context of the absolute cell counts (cells/UL). Performed By: #### 3 4529-8 #### LOPEZ Coreas ([id number]) [facility] ([facility]) [address] [place] [address] 51288 Lymphocytes (Bld) [#/Vol] 1.32 x10*3/uL Normal 1.20-4.80 [facility] Comment on above: Performed By: #### 3 4529-8 #### LOPEZ Coreas ([id number]) [facility] ([facility]) [id number] [place] [address] 12590 Lymphocytes/100 WBC (Bld) 18.2 % Normal 13.0-44.0 [facility] Comment on above: Performed By: #### 3 4529-8 #### LOPEZ Coreas ([id number]) [facility] ([facility]) [address] [place] [address] MCH (RBC) [Entitic mass] 29.8 pg Normal 26.0-34.0 [facility] Comment on above: Performed By: #### 3 4529-8 #### LOPEZ Coreas ([id number]) [facility] ([facility]) [address] [place] [address] MCHC (RBC) [Mass/Vol] 31.3 g/dL Low 32.0-36.0 [facility] Comment on above: Performed By: #### 3 4529-8 #### LOPEZ Coreas ([id number]) [facility] ([facility]) [address] [place] [address] MCV (RBC) [Entitic vol] 95 fL Normal 80-100 U [facility] Comment on above: Performed By: #### 3 4529-8 #### LOPEZ Coreas ([id number]) [facility] ([facility]) [address] [place] [address] Monocytes (Bld) [#/Vol] 0.49 x10*3/uL Normal 0.10-1.00 [facility] Comment on above: Performed By: #### 3 4529-8 #### LOPEZ Coreas ([id number]) [facility] ([facility]) [address] [place] [address] Monocytes/100 WBC (Bld) 6.7 % Normal 2.0-10.0 U [facility] Comment on above: Performed By: #### 3 4529-8 #### LOPEZ Coreas ([id number]) [facility] ([facility]) [address] [place] [address] Neutrophils (Bld) [#/Vol] 5.05 x10*3/uL Normal 1.20-7.70 [facility] Comment on above: Result Comment: Perc ent differential counts (%) should be interpreted in the context of the absolute cell counts (cells/uL). Performed By: #### 3 4529-8 #### LOPEZ Coreas ([id number]) [facility] ([facility]) [address] [place] [address] 98723 Neutrophils/100 WBC (Bld) 69.5 % Normal 40.0-80.0 [facility] Comment on above: Performed By: #### 3 4529-8 #### LOPEZ Coreas ([id number]) [facility] ([facility]) [address] [place] [address] 86644 Nucleated RBC/100 WBC (Bld) [Ratio] 0.0 /100 WBCs Normal 0.0-0.0 [facility] Comment on above: Performed By: #### 3 4529-8 #### LOPEZ Coreas ([id number]) [facility] ([facility]) [address] [place] [address] 27871 Platelets (Bld) [#/Vol] 178 x10*3/uL Normal 150-450 [facility] Comment on above: Performed By: #### 3 4529-8 #### LOPEZ Coreas ([id number]) [facility] ([facility]) [address] [place] [address] 12605 RBC (Bld) [#/Vol] 3.12 x10*6/uL Low 4.00-5.20 [facility] Comment on above: Performed By: #### 3 4529-8 #### LOPEZ Coreas ([id number]) [facility] ([facility]) [address] [place] [address] 01468 WBC (Bld) [#/Vol] 7.3 x10*3/uL Normal 4.4-11.3 [facility] Comment on above: Performed By: #### 3 4529-8 #### LOPEZ FAN L ([id number]) [facility] ([facility]) [address] [place] [address] 08247 Magnesiumon 03-23-2025 Magnesium [Mass/Vol] 2.11 mg/dL 1.60 - 2.40 mg/dL [facility] Magnesium [Mass/Vol] 2.11 mg/dL Normal 1.60-2.40 [facility] Comment on above: Performed By: #### 3 4529-8 #### LOPEZ Coreas ([id number]) [facility] ([facility]) [address] [place] [address] Magnesium [Mass/Vol]on 03-23 Interpretation and review of laboratory results Normal [facility] No Panel Informationon 03-23 [facility] Renal function 2000 panelon 03-23-2025 Albumin BCP dye [Mass/Vol] 3.7 g/dL 3.4 - 5.0 g/dL [facility] Anion gap [Moles/Vol] 12 mmol/L 10 - 2 0 mmol/L [facility] Calcium [Mass/Vol] 8.5 mg/dL Low 8.6 - 10. 6 mg/dL [facility] Chloride [Moles/Vol] 108 mmol/L High 98 - 10 7 mmol/L [facility] CO2 [Moles/Vol] 22 mmol/L 21 - 32 mmol/L [facility] Creatinine [Mass/Vol] 0.99 mg/dL 0.50 - 1.05 mg/dL [facility] GFR/1.73 sq M.predicted among non-blacks MDRD (S/P/Bld) [Vol rate/Area] 63 mL/min/{1.73_m2} - PINF [facility] Comment on above: Calculations of araceli mated GFR are performed using the 2020 CKD-EPI Study Refit equation without the race variable for the IDMS-Traceable creatinine methods. https://jasn.asnjournals.org/content/early/ASN.005 1665138 Glucose [Mass/Vol] 98 mg/dL 74 - 99 mg/dL [facility] Interpretation and review of laboratory results Abnormal [facility] Phosphate [Mass/Vol] 3.6 mg/dL 2.5 - 4 .9 mg/dL [facility] Potassium [Moles/Vol] 3.8 mmol/L 3.5 - 5.3 mmol/L [facility] Sodium [Moles/Vol] 138 mmol/L 136 - 145 mmol/L [facility] Urea nitrogen [Mass/Vol] 24 mg/dL High 6 - 23 mg/dL [facility] Albumin BCP dye [Mass/Vol] 3.7 g/dL Normal 3.4-5.0 [facility] Comment on above: Performed By: #### 3 4529-8 #### LOPEZ Coreas ([id number]) [facility] ([facility]) [id number] [place] [address] 07775 Anion gap [Moles/Vol] 12 mmol/L Normal 10-20 [facility] Comment on above: Performed By: #### 3 4529-8 #### LOPEZ Coreas ([id number]) [facility] ([facility]) [id number] [place] [address] 74598 Calcium [Mass/Vol] 8.5 mg/dL Low 8.6-10.[address] [facility] Comment on above: Performed By: #### 3 4529-8 #### LOPEZ Coreas ([id number]) [facility] ([facility]) [id number] [place] [address] 32392 Chloride [Moles/Vol] 108 mmol/L High 98-107 [facility] Comment on above: Performed By: #### 3 4529-8 #### LOPEZ Coreas ([id number]) [facility] ([facility]) [address] [place] [address] 84559 CO2 [Moles/Vol] 22 mmol/L Normal 21-32 [facility] Comment on above: Performed By: #### 3 4529-8 #### LOPEZ Coreas ([id number]) [facility] ([facility]) [id number] [place] [address] 54591 Creatinine [Mass/Vol] 0.99 mg/dL Normal 0.50-1.05 [facility] Comment on above: Performed By: #### 3 4529-8 #### LOPEZ Coreas ([id number]) [facility] ([facility]) [address] [place] [address] 24809 Glomerular filtration rate/1.73 sq M.predicted 63 mL/min/1.73m*2 Normal >60 [facility] Comment on above: Result Comment: Calc ulations of estimated GFR are performed using the 2020 CKD-EPI Study Refit equation without the race variable for the IDMS-Traceable creatinine methods. https://jasn.asnjournals.org/content//ASN.690 9605913 Performed By: #### 3 4529-8 #### LOPEZ Coreas ([id number]) [facility] ([facility]) [address] [place] [address] Glucose [Mass/Vol] 98 mg/dL Normal 74-[address] [facility] Comment on above: Performed By: #### 3 4529-8 #### LOPEZ Coreas ([id number]) [facility] ([facility]) [address] [place] [address] Phosphate [Mass/Vol] 3.6 mg/dL Normal 2.5-4.9 [facility] Comment on above: Performed By: #### 3 4529-8 #### LOPEZ FAN L ([id number]) [facility] ([facility]) [address] [place] [address] Potassium [Moles/Vol] 3.8 mmol/L Normal 3.5-5.3 [facility] Comment on above: Performed By: #### 3 4529-8 #### LOPEZ FAN L ([id number]) [facility] ([facility]) [address] [place] [address] Sodium [Moles/Vol] 138 mmol/L Normal 136-[address] [facility] Comment on above: Performed By: #### 3 4529-8 #### LOPEZ FAN L ([id number]) [facility] ([facility]) [address] [place] [address] Urea nitrogen [Mass/Vol] 24 mg/dL High 6-23 [facility] Comment on above: Performed By: #### 3 4529-8 #### LOPEZ AYONMOKAIDEN L ([id number]) [facility] ([facility]) [address] [place] [address] CBC W Auto Differential pane l (Bld)on 03-22-2025 Basophils (Bld) [#/Vol] 0.16 10*3/uL High [facility] Basophils/100 WBC (Bld) 1.8 % 0.0 - 2.0 % [facility] Eosinophils (Bld) [#/Vol] 0.16 10*3/uL [facility] Eosinophils/100 WBC (Bld) 1.8 % 0.0 - 6.0 % [facility] Erythrocyte distribution width (RBC) [Ratio] 17.6 % High 11.5 - 14.5 % [facility] Hematocrit (Bld) [Volume fraction] 31.5 % Low 36.0 - 46.0 % [facility] Hemoglobin (Bld) [Mass/Vol] 9.5 g/dL Low 12.0 - 16.0 g/dL [facility] Immature granulocytes (Bld) [#/Vol] 0.04 10*3/uL [facility] Immature granulocytes/100 WBC (Bld) 0.4 % 0.0 - 0.9 % [facility] Comment on above: Immature Granulocyte Count (IG) includes promyelocytes, myelocytes and metamyelocytes but does not include bands. Percent differential counts (%) should be interpreted in the context of the absolute cell counts (cells/UL). Interpretation and review of laboratory results Abnormal [facility] Lymphocytes (Bld) [#/Vol] 1.45 10*3/uL [facility] Lymphocytes/100 WBC (Bld) 16.3 % 13.0 - 44.0 % [facility] MCH (RBC) [Entitic mass] 29.3 pg 26. 0 - 34.0 pg [facility] MCHC (RBC) [Mass/Vol] 30.2 g/dL Low 32.0 - 36.0 g/dL [facility] MCV (RBC) [Entitic vol] 97 fL 80 - 100 fL [facility] Monocytes (Bld) [#/Vol] 0.49 10*3/uL [facility] Monocytes/100 WBC (Bld) 5.5 % 2.0 - 10.0 % [facility] Neutrophils (Bld) [#/Vol] 6.61 10*3/uL [facility] Comment on above: Percent differential counts (%) should be interpreted in the context of the absolute cell counts (cells/uL). Neutrophils/100 WBC (Bld) 74.2 % 40.0 - 80.0 % [facility] Nucleated RBC/100 WBC (Bld) [Ratio] 0 % [facility] Platelets (Bld) [#/Vol] 201 10*3/uL [facility] RBC (Bld) [#/Vol] 3.24 10*6/uL Low [facility] WBC (Bld) [#/Vol] 8.9 10*3/uL [facility] Basophils (Bld) [#/Vol] 0.16 x10*3/uL High 0.00-0.10 [facility] Comment on above: Order Comment: The A PTT is no longer used for monitoring Unfractionated Heparin Therapy. For monitoring Heparin Therapy, use the Heparin Assay. Performed By: #### 3 4529-8 #### LOPEZ Coreas ([id number]) [facility] ([facility]) [address] [place] [address] 76511 Basophils/100 WBC (Bld) 1.8 % Normal 0.0-2.0 U [facility] Comment on above: Order Comment: The A PTT is no longer used for monitoring Unfractionated Heparin Therapy. For monitoring Heparin Therapy, use the Heparin Assay. Performed By: #### 3 4529-8 #### LOPEZ Coreas ([id number]) [facility] ([facility]) [address] [place] [address] Eosinophils (Bld) [#/Vol] 0.16 x10*3/uL Normal 0.00-0.70 [facility] Comment on above: Order Comment: The A PTT is no longer used for monitoring Unfractionated Heparin Therapy. For monitoring Heparin Therapy, use the Heparin Assay. Performed By: #### 3 4529-8 #### LOPEZ Coreas ([id number]) [facility] ([facility]) [address] [place] [id number] Eosinophils/100 WBC (Bld) 1.8 % Normal 0.0-6.0 [facility] Comment on above: Order Comment: The A PTT is no longer used for monitoring Unfractionated Heparin Therapy. For monitoring Heparin Therapy, use the Heparin Assay. Performed By: #### 3 4529-8 #### LOPEZ Coreas ([id number]) [facility] ([facility]) [address] [place] [address] Erythrocyte distribution width (RBC) [Ratio] 17.6 % High 11.5-14.5 [facility] Comment on above: Order Comment: The A PTT is no longer used for monitoring Unfractionated Heparin Therapy. For monitoring Heparin Therapy, use the Heparin Assay. Performed By: #### 3 4529-8 #### LOPEZ Coreas ([id number]) [facility] ([facility]) [address] [place] [address] Hematocrit (Bld) [Volume fraction] 31.5 % Low 36.0-46.0 [facility] Comment on above: Order Comment: The A PTT is no longer used for monitoring Unfractionated Heparin Therapy. For monitoring Heparin Therapy, use the Heparin Assay. Performed By: #### 3 4529-8 #### LOPEZ Coreas ([id number]) [facility] ([facility]) [address] [place] [id number] Hemoglobin (Bld) [Mass/Vol] 9.5 g/dL Low 12.0-16.0 [facility] Comment on above: Order Comment: The A PTT is no longer used for monitoring Unfractionated Heparin Therapy. For monitoring Heparin Therapy, use the Heparin Assay. Performed By: #### 3 4529-8 #### LOPEZ Coreas ([id number]) [facility] ([facility]) [address] [place] [address] 42652 Immature granulocytes (Bld) [#/Vol] 0.04 x10*3/uL Normal 0.00-0.70 [facility] Comment on above: Order Comment: The A PTT is no longer used for monitoring Unfractionated Heparin Therapy. For monitoring Heparin Therapy, use the Heparin Assay. Performed By: #### 3 4529-8 #### LOPEZ Coreas ([id number]) [facility] ([facility]) [address] [place] [address] 16220 Immature granulocytes/100 WBC (Bld) 0.4 % Normal 0.0-0.9 [facility] Comment on above: Order Comment: The A PTT is no longer used for monitoring Unfractionated Heparin Therapy. For monitoring Heparin Therapy, use the Heparin Assay. Result Comment: Leonora ture Granulocyte Count (IG) includes promyelocytes, myelocytes and metamyelocytes but does not include bands. Percent differential counts (%) should be interpreted in the context of the absolute cell counts (cells/UL). Performed By: #### 3 4529-8 #### LOPEZ Coreas ([id number]) [facility] ([facility]) [address] [place] [address] 67786 Lymphocytes (Bld) [#/Vol] 1.45 x10*3/uL Normal 1.20-4.80 [facility] Comment on above: Order Comment: The A PTT is no longer used for monitoring Unfractionated Heparin Therapy. For monitoring Heparin Therapy, use the Heparin Assay. Performed By: #### 3 4529-8 #### LOPEZ Coreas ([id number]) [facility] ([facility]) [address] [place] [address] 24135 Lymphocytes/100 WBC (Bld) 16.3 % Normal 13.0-44.0 [facility] Comment on above: Order Comment: The A PTT is no longer used for monitoring Unfractionated Heparin Therapy. For monitoring Heparin Therapy, use the Heparin Assay. Performed By: #### 3 4529-8 #### LOPEZ Coreas ([id number]) [facility] ([facility]) [id number] [place] [address] 23907 MCH (RBC) [Entitic mass] 29.3 pg Normal 26.0-34.0 [facility] Comment on above: Order Comment: The A PTT is no longer used for monitoring Unfractionated Heparin Therapy. For monitoring Heparin Therapy, use the Heparin Assay. Performed By: #### 3 4529-8 ###Geeta Coreas ([id number]) [facility] ([facility]) [address] [place] [address] MCHC (RBC) [Mass/Vol] 30.2 g/dL Low 32.0-36.0 [facility] Comment on above: Order Comment: The A PTT is no longer used for monitoring Unfractionated Heparin Therapy. For monitoring Heparin Therapy, use the Heparin Assay. Performed By: #### 3 4529-8 #### LOPEZ Coreas ([id number]) [facility] ([facility]) [id number] [place] [address] 67138 MCV (RBC) [Entitic vol] 97 fL Normal 80-100 U [facility] Comment on above: Order Comment: The A PTT is no longer used for monitoring Unfractionated Heparin Therapy. For monitoring Heparin Therapy, use the Heparin Assay. Performed By: #### 3 4529-8 #### LOPEZ Coreas ([id number]) [facility] ([facility]) [address] [place] [address] 11472 Monocytes (Bld) [#/Vol] 0.49 x10*3/uL Normal 0.10-1.00 [facility] Comment on above: Order Comment: The A PTT is no longer used for monitoring Unfractionated Heparin Therapy. For monitoring Heparin Therapy, use the Heparin Assay. Performed By: #### 3 4529-8 #### LOPEZ Coreas ([id number]) [facility] ([facility]) [address] [place] [address] 38505 Monocytes/100 WBC (Bld) 5.5 % Normal 2.0-10.0 U [facility] Comment on above: Order Comment: The A PTT is no longer used for monitoring Unfractionated Heparin Therapy. For monitoring Heparin Therapy, use the Heparin Assay. Performed By: #### 3 4529-8 #### LOPEZ Coreas ([id number]) [facility] ([facility]) [id number] [place] [address] 17815 Neutrophils (Bld) [#/Vol] 6.61 x10*3/uL Normal 1.20-7.70 [facility] Comment on above: Order Comment: The A PTT is no longer used for monitoring Unfractionated Heparin Therapy. For monitoring Heparin Therapy, use the Heparin Assay. Result Comment: Perc ent differential counts (%) should be interpreted in the context of the absolute cell counts (cells/uL). Performed By: #### 3 4529-8 #### LOPEZ Coreas ([id number]) [facility] ([facility]) [address] [place] [address] 81030 Neutrophils/100 WBC (Bld) 74.2 % Normal 40.0-80.0 [facility] Comment on above: Order Comment: The A PTT is no longer used for monitoring Unfractionated Heparin Therapy. For monitoring Heparin Therapy, use the Heparin Assay. Performed By: #### 3 4529-8 #### LOPEZ Coreas ([id number]) [facility] ([facility]) [address] [place] [address] 66655 Nucleated RBC/100 WBC (Bld) [Ratio] 0.0 /100 WBCs Normal 0.0-0.0 [facility] Comment on above: Order Comment: The A PTT is no longer used for monitoring Unfractionated Heparin Therapy. For monitoring Heparin Therapy, use the Heparin Assay. Performed By: #### 3 4529-8 #### LOPEZ Coreas ([id number]) [facility] ([facility]) [address] [place] [address] 91776 Platelets (Bld) [#/Vol] 201 x10*3/uL Normal 150-450 [facility] Comment on above: Order Comment: The A PTT is no longer used for monitoring Unfractionated Heparin Therapy. For monitoring Heparin Therapy, use the Heparin Assay. Performed By: #### 3 4529-8 #### LOPEZ Coreas ([id number]) [facility] ([facility]) [address] [place] [address] 07422 RBC (Bld) [#/Vol] 3.24 x10*6/uL Low 4.00-5.20 [facility] Comment on above: Order Comment: The A PTT is no longer used for monitoring Unfractionated Heparin Therapy. For monitoring Heparin Therapy, use the Heparin Assay. Performed By: #### 3 4529-8 #### LOPEZ Coreas ([id number]) [facility] ([facility]) [address] [place] [address] WBC (Bld) [#/Vol] 8.9 x10*3/uL Normal 4.4-11.3 [facility] Comment on above: Order Comment: The A PTT is no longer used for monitoring Unfractionated Heparin Therapy. For monitoring Heparin Therapy, use the Heparin Assay. Performed By: #### 3 4529-8 #### LOPEZ Coreas ([id number]) [facility] ([facility]) [address] [place] [address] Basophils (Bld) [#/Vol] 0.14 10*3/uL High [facility] Basophils/100 WBC (Bld) 2 % 0.0 - 2.0 % [facility] Eosinophils (Bld) [#/Vol] 0.25 10*3/uL [facility] Eosinophils/100 WBC (Bld) 3.6 % 0.0 - 6.0 % [facility] Erythrocyte distribution width (RBC) [Ratio] 17.2 % High 11.5 - 14.5 % [facility] Hematocrit (Bld) [Volume fraction] 24.3 % Low 36.0 - 46.0 % [facility] Hemoglobin (Bld) [Mass/Vol] 7.2 g/dL Low 12.0 - 16.0 g/dL [facility] Immature granulocytes (Bld) [#/Vol] 0.03 10*3/uL [facility] Immature granulocytes/100 WBC (Bld) 0.4 % 0.0 - 0.9 % [facility] Comment on above: Immature Granulocyte Count (IG) includes promyelocytes, myelocytes and metamyelocytes but does not include bands. Percent differential counts (%) should be interpreted in the context of the absolute cell counts (cells/UL). Interpretation and review of laboratory results Abnormal [facility] Lymphocytes (Bld) [#/Vol] 1.4 10*3/uL [facility] Lymphocytes/100 WBC (Bld) 20.1 % 13.0 - 44.0 % [facility] MCH (RBC) [Entitic mass] 29.3 pg 26. 0 - 34.0 pg [facility] MCHC (RBC) [Mass/Vol] 29.6 g/dL Low 32.0 - 36.0 g/dL [facility] MCV (RBC) [Entitic vol] 99 fL 80 - 100 fL [facility] Monocytes (Bld) [#/Vol] 0.45 10*3/uL [facility] Monocytes/100 WBC (Bld) 6.5 % 2.0 - 10.0 % [facility] Neutrophils (Bld) [#/Vol] 4.69 10*3/uL [facility] Comment on above: Percent differential counts (%) should be interpreted in the context of the absolute cell counts (cells/uL). Neutrophils/100 WBC (Bld) 67.4 % 40.0 - 80.0 % [facility] Nucleated RBC/100 WBC (Bld) [Ratio] 0 % [facility] Platelets (Bld) [#/Vol] 182 10*3/uL [facility] RBC (Bld) [#/Vol] 2.46 10*6/uL Low [facility] WBC (Bld) [#/Vol] 7 10*3/uL [facility] Basophils (Bld) [#/Vol] 0.14 x10*3/uL High 0.00-0.10 [facility] Comment on above: Performed By: #### 5 7021-8 #### LOPEZ Coreas ([id number]) [facility] ([facility]) [address] [place] [address] Basophils/100 WBC (Bld) 2.0 % Normal 0.0-2.0 U [facility] Comment on above: Performed By: #### 5 7021-8 #### LOPEZ Coreas ([id number]) [facility] ([facility]) [address] [place] [address] Eosinophils (Bld) [#/Vol] 0.25 x10*3/uL Normal 0.00-0.70 [facility] Comment on above: Performed By: #### 5 7021-8 #### LOPEZ Coreas ([id number]) [facility] ([facility]) [address] [place] [address] 29224 Eosinophils/100 WBC (Bld) 3.6 % Normal 0.0-6.0 [facility] Comment on above: Performed By: #### 5 7021-8 #### LOPEZ Coreas ([id number]) [facility] ([facility]) [address] [place] [address] 74123 Erythrocyte distribution width (RBC) [Ratio] 17.2 % High 11.5-14.5 [facility] Comment on above: Performed By: #### 5 7021-8 #### LOPEZ Coreas ([id number]) [facility] ([facility]) [address] [place] [address] 92485 Hematocrit (Bld) [Volume fraction] 24.3 % Low 36.0-46.0 [facility] Comment on above: Performed By: #### 5 7021-8 #### LOPEZ Coreas ([id number]) [facility] ([facility]) [address] [place] [address] 78991 Hemoglobin (Bld) [Mass/Vol] 7.2 g/dL Low 12.0-16.0 [facility] Comment on above: Performed By: #### 5 7021-8 #### LOPEZ Coreas ([id number]) [facility] ([facility]) [address] [place] [address] 92338 Immature granulocytes (Bld) [#/Vol] 0.03 x10*3/uL Normal 0.00-0.70 [facility] Comment on above: Performed By: #### 5 7021-8 #### LOPEZ Coreas ([id number]) [facility] ([facility]) [address] [place] [address] 29490 Immature granulocytes/100 WBC (Bld) 0.4 % Normal 0.0-0.9 [facility] Comment on above: Result Comment: Leonora ture Granulocyte Count (IG) includes promyelocytes, myelocytes and metamyelocytes but does not include bands. Percent differential counts (%) should be interpreted in the context of the absolute cell counts (cells/UL). Performed By: #### 5 7021-8 #### LOPEZ Coreas ([id number]) [facility] ([facility]) [id number] [place] [address] 90298 Lymphocytes (Bld) [#/Vol] 1.40 x10*3/uL Normal 1.20-4.80 [facility] Comment on above: Performed By: #### 5 7021-8 #### LOPEZ Coreas ([id number]) [facility] ([facility]) [address] [place] [address] 22753 Lymphocytes/100 WBC (Bld) 20.1 % Normal 13.0-44.0 [facility] Comment on above: Performed By: #### 5 7021-8 #### LOPEZ Coreas ([id number]) [facility] ([facility]) [address] [place] [address] 92652 MCH (RBC) [Entitic mass] 29.3 pg Normal 26.0-34.0 [facility] Comment on above: Performed By: #### 5 7021-8 #### LOPEZ Coreas ([id number]) [facility] ([facility]) [address] [place] [address] 36996 MCHC (RBC) [Mass/Vol] 29.6 g/dL Low 32.0-36.0 [facility] Comment on above: Performed By: #### 5 7021-8 #### LOPEZ Coreas ([id number]) [facility] ([facility]) [address] [place] [address] 94335 MCV (RBC) [Entitic vol] 99 fL Normal 80-100 U [facility] Comment on above: Performed By: #### 5 7021-8 #### LOPEZ Coreas ([id number]) [facility] ([facility]) [address] [place] [address] 64536 Monocytes (Bld) [#/Vol] 0.45 x10*3/uL Normal 0.10-1.00 [facility] Comment on above: Performed By: #### 5 7021-8 #### LOPEZ Coreas ([id number]) [facility] ([facility]) [address] [place] [address] 66044 Monocytes/100 WBC (Bld) 6.5 % Normal 2.0-10.0 [facility] Comment on above: Performed By: #### 5 7021-8 #### LOPEZ Coreas ([id number]) [facility] ([facility]) [id number] [place] [address] 21811 Neutrophils (Bld) [#/Vol] 4.69 x10*3/uL Normal 1.20-7.70 [facility] Comment on above: Result Comment: Perc ent differential counts (%) should be interpreted in the context of the absolute cell counts (cells/uL). Performed By: #### 5 7021-8 #### LOPEZ Coreas ([id number]) [facility] ([facility]) [address] [place] [address] 20137 Neutrophils/100 WBC (Bld) 67.4 % Normal 40.0-80.0 [facility] Comment on above: Performed By: #### 5 7021-8 #### LOPEZ Coreas ([id number]) [facility] ([facility]) [address] [place] [address] 70545 Nucleated RBC/100 WBC (Bld) [Ratio] 0.0 /100 WBCs Normal 0.0-0.0 [facility] Comment on above: Performed By: #### 5 7021-8 #### LOPEZ Coreas ([id number]) [facility] ([facility]) [address] [place] [address] 36811 Platelets (Bld) [#/Vol] 182 x10*3/uL Normal 150-450 [facility] Comment on above: Performed By: #### 5 7021-8 #### LOPEZ Coreas ([id number]) [facility] ([facility]) [address] [place] [address] 70114 RBC (Bld) [#/Vol] 2.46 x10*6/uL Low 4.00-5.20 [facility] Comment on above: Performed By: #### 5 7021-8 #### LOPEZ Coreas ([id number]) [facility] ([facility]) [address] [place] [address] WBC (Bld) [#/Vol] 7.0 x10*3/uL Normal 4.4-11.3 [facility] Comment on above: Performed By: #### 5 7021-8 #### LOPEZ Coreas ([id number]) [facility] ([facility]) [address] [place] [address] ECG 12 leadOrdered By: Pilar Borja on 03-22-2025 Atrial Rate 79 BPM [facility] Work Phone: [phone] P Braddock 80 degrees [facility] Work Phone: [phone] P Offset 197 ms [facility] Work Phone: [phone] P Onset 146 [facility] Work Phone: [phone] TN Interval 156 ms [facility] Work Phone: [phone] Q Onset 224 ms [facility] Work Phone: [phone] QRS Count 13 beats [facility] Work Phone: [phone] QRS Duration 74 ms [facility] Work Phone: [phone] QT Interval 366 ms [facility] Work Phone: [phone] QTC Calculation(Bazett) 419 ms U [facility] Work Phone: [phone] QTC Fredericia 401 ms [facility] Work Phone: [phone] R Braddock 76 degrees [facility] Work Phone: T Braddock 76 degrees [facility] Work Phone: [phone] T Offset 407 ms [facility] Work Phone: Ventricular Rate 79 BPM [facility] Work Phone: [facility] Work Phone: [phone] ECG 12 leadon 03-22-2025 Normal sinus rhythm Normal ECG No previous ECGs available See ED provider note for full interpretation and clinical correlation Confirmed by Pilar Borja ([id number]) on 03/22/2025 12:59:17 AM Pilar Cummings PA-C - 03/22/2025 Normal sinus rhythm Normal ECG No previous ECGs available See ED provider note for full interpretation and clinical correlation Confirmed by Pilar Borja ([id number]) on 03/22/2025 12:59:17 AM [facility] Work Phone: [phone] Electrocardiogram, 12-lead P RN ACS symptomsOrdered By: Abe Means on 03-22-2025 Atrial Rate 75 BPM [facility] Work Phone: [phone] P Braddock 71 degrees [facility] Work Phone: [phone] P Offset 186 ms [facility] Work Phone: [phone] P Onset 142 ms [facility] Work Phone: [phone] TN Interval 160 ms [facility] Work Phone: [phone] Q Onset 222 ms [facility] Work Phone: [phone] QRS Count 12 beats [facility] Work Phone: [phone] QRS Duration 70 ms [facility] Work Phone: [phone] QT Interval 374 ms [facility] Work Phone: [phone] QTC Calculation(Bazett) 417 ms [facility] Work Phone: [phone] QTC Fredericia 402 ms [facility] Work Phone: [phone] R Braddock 66 degrees [facility] Work Phone: [phone] T Braddock 62 degrees [facility] Work Phone: [phone] T Offset 409 ms [facility] Work Phone: [phone] Ventricular Rate 75 BPM [facility] Work Phone: [facility] Work Phone: Electrocardiogram, 12-lead P RN ACS symptomson 03-22-2025 Normal sinus rhythm Normal ECG When compared with ECG of 21-MAR-2025 18:01, No significant change was found Confirmed by Abe Means ([id number]) on 03/22/2025 5:57:51 PM MUSE Abe Means MD - 03/22/2025 Normal sinus rhythm Normal ECG When compared with ECG of 21-MAR-2025 18:01, No significant change was found Confirmed by Abe Means ([id number]) on 03/22/2025 5:57:51 PM [facility] Work Phone: Ferritinon 03-22-2025 Ferritin [Mass/Vol] 74 ng/mL 8 - 150 ng/mL [facility] Ferritin [Mass/Vol] 74 ng/mL Normal 8-150 [facility] Comment on above: Performed By: #### 3 4529-8 #### LOPEZ Coreas ([id number]) [facility] ([facility]) [address] [place] [address] Ferritin [Mass/Vol]on 2024 Interpretation and review of laboratory results Normal [facility] Folates, RBCon 03-22-2025 Fol.,Hemolysate 317.0 ng/mL Normal Not Estab. [facility] Comment on above: Performed By: #### L 503.6030, L503.0106, L503.6550, A66944-2, L3100.1725, L3130.0010, L100.9950, L100.0100, L500.4050, L504.2610, L3100.1850, L3100.3425 ####[facility] [address] [place], [place], [address] Folate, RBC 935 ng/mL Normal >498 [facility] Comment on above: Performed By: #### L 503.6030, L503.0106, L503.6550, Q26175-7, L3100.1725, L3130.0010, L100.9950, L100.0100, L500.4050, L504.2610, L3100.1850, L3100.3425 ####[facility] [address] [place], [place], [id number] Hematocrit (Bld) [Volume fraction] 33.9 % Low 34.0-46.6 [facility] Comment on above: Performed By: #### L 503.6030, L503.0106, L503.6550, J71677-0, L3100.1725, L3130.0010, L100.9950, L100.0100, L500.4050, L504.2610, L3100.1850, L3100.3425 ####[facility] [address] [place], [place], [id number] Haptoglobinon 03-22-2025 HAPTOGLOBIN 181 mg/dL Normal 37-355 [facility] Comment on above: Result Comment: Perf ormed at: - [facility] [place] [id number] Director: Darren Cr PhD, Phone: [phone] Performed By: #### L 503.6030, L503.0106, L503.6550, K32967-2, L3100.1725, L3130.0010, L100.9950, L100.0100, L500.4050, L504.2610, L3100.1850, L3100.3425 ####[facility] [address] [place], [place], [id number] GEMA + Protein Elect, Serumon 03-22-2025 Albumin [Mass/Vol] 3.9 g/dL Normal 2.9-4.4 [facility] Comment on above: Order Comment: N Performed By: #### L 503.6030, L503.0106, L503.6550, J75261-3, L3100.1725, L3130.0010, L100.9950, L100.0100, L500.4050, L504.2610, L3100.1850, L3100.3425 ####[facility] [address] [place], [address] Albumin/Globulin [Mass ratio] 1.4 {ratio} Normal 0.7-1.7 [facility] Comment on above: Order Comment: N Performed By: #### L 503.6030, L503.0106, L503.6550, L85131-7, L3100.1725, L3130.0010, L100.9950, L100.0100, L500.4050, L504.2610, L3100.1850, L3100.3425 ####[facility] [address] [place], [address] BCLYN-0-QWWV 0.3 g/dL Normal 0.0-0.4 [facility] Comment on above: Order Comment: N Performed By: #### L 503.6030, L503.0106, L503.6550, V61740-0, L3100.1725, L3130.0010, L100.9950, L100.0100, L500.4050, L504.2610, L3100.1850, L3100.3425 ####[facility] [address] [place], [address] BNMET-9-DZEJ 0.8 g/dL Normal 0.4-1.0 [facility] Comment on above: Order Comment: N Performed By: #### L 503.6030, L503.0106, L503.6550, Q01993-2, L3100.1725, L3130.0010, L100.9950, L100.0100, L500.4050, L504.2610, L3100.1850, L3100.3425 ####[facility] [address] [place], [address] BETA GLOBULIN 1.0 g/dL Normal 0.7-1.3 [facility] Comment on above: Order Comment: N Performed By: #### L 503.6030, L503.0106, L503.6550, Z97105-6, L3100.1725, L3130.0010, L100.9950, L100.0100, L500.4050, L504.2610, L3100.1850, L3100.3425 ####[facility] [address] [place], [place], [phone](465) GAMMA GLOBULIN 0.6 g/dL Normal 0.4-1.8 [facility] Comment on above: Order Comment: N Performed By: #### L 503.6030, L503.0106, L503.6550, Q49920-5, L3100.1725, L3130.0010, L100.9950, L100.0100, L500.4050, L504.2610, L3100.1850, L3100.3425 ####[facility] [address] [place], [place], [phone](228) Globulin (S) [Mass/Vol] 2.8 g/dL Normal 2.2-3.[address] [facility] Comment on above: Order Comment: N Performed By: #### L 503.6030, L503.0106, L503.6550, Y69338-6, L3100.1725, L3130.0010, L100.9950, L100.0100, L500.4050, L504.2610, L3100.1850, L3100.3425 ####[facility] [address] [place], [place], [phone](364) GEMA RESULT,S Comment: Normal . [facility] Comment on above: Order Comment: N Result Comment: Pres ence of monoclonal protein is unclear at this time. Suggestrepeat in 3 to 6 months if clinically indicated. Performed By: #### L 503.6030, L503.0106, L503.6550, G58866-1, L3100.1725, L3130.0010, L100.9950, L100.0100, L500.4050, L504.2610, L3100.1850, L3100.3425 ####[facility] [address] [place], [address] IMMUNOGLOB A QN 198 mg/dL Normal 87-352 [facility] Comment on above: Order Comment: N Performed By: #### L 503.6030, L503.0106, L503.6550, I62928-8, L3100.1725, L3130.0010, L100.9950, L100.0100, L500.4050, L504.2610, L3100.1850, L3100.3425 ####[facility] [address] [place], [place], [phone](231) IMMUNOGLOB G QN 698 mg/dL Normal 586-1602 [facility] Comment on above: Order Comment: N Performed By: #### L 503.6030, L503.0106, L503.6550, X34554-0, L3100.1725, L3130.0010, L100.9950, L100.0100, L500.4050, L504.2610, L3100.1850, L3100.3425 ####[facility] [address] [place], [place], [phone](263) IMMUNOGLOB M QN 139 mg/dL Normal 26-217 [facility] Comment on above: Order Comment: N Performed By: #### L 503.6030, L503.0106, L503.6550, Q34232-0, L3100.1725, L3130.0010, L100.9950, L100.0100, L500.4050, L504.2610, L3100.1850, L3100.3425 ####[facility] [id number] [place], [place], [phone]) M-Milan Not Observed Normal Not Observed [facility] Comment on above: Order Comment: N Performed By: #### L 503.6030, L503.0106, L503.6550, W64183-1, L3100.1725, L3130.0010, L100.9950, L100.0100, L500.4050, L504.2610, L3100.1850, L3100.3425 ####[facility] [address] [place], [address] NOTE: Comment Normal . [facility] Comment on above: Order Comment: N Result Comment: Prot ein electrophoresis scan will follow via computer,mail, or carpenter ship delivery. Performed By: #### L 503.6030, L503.0106, L503.6550, D14876-4, L3100.1725, L3130.0010, L100.9950, L100.0100, L500.4050, L504.2610, L3100.1850, L3100.3425 ####[facility] [address] [place], [address] Protein [Mass/Vol] 6.7 g/dL Normal 6.0-8.5 [facility] Comment on above: Order Comment: N Performed By: #### L 503.6030, L503.0106, L503.6550, I51895-6, L3100.1725, L3130.0010, L100.9950, L100.0100, L500.4050, L504.2610, L3100.1850, L3100.3425 ####[facility] [address] [place], [address] Iron and Iron binding capaci ty panelon 03-22-2025 Interpretation and review of laboratory results Abnormal [facility] Iron [Mass/Vol] 29 ug/dL Low 35 - 150 ug/dL [facility] Iron binding capacity [Mass/Vol] 340 ug/dL 240 - 445 ug/dL [facility] Iron binding capacity.unsaturated [Mass/Vol] 311 ug/dL 110 - 370 ug/dL [facility] Iron saturation [Mass fraction] 9 % Low 25 - 45 % [facility] Iron [Mass/Vol] 29 ug/dL Low 35-150 [facility] Comment on above: Performed By: #### 3 4529-8 #### LOPEZ Coreas ([id number]) [facility] ([facility]) [address] [place] [address] 74443 Iron binding capacity [Mass/Vol] 340 ug/dL Normal 240-445 [facility] Comment on above: Performed By: #### 3 4529-8 #### LOPEZ Coreas ([id number]) [facility] ([facility]) [address] [place] [address] 16741 Iron binding capacity.unsaturated [Mass/Vol] 311 ug/dL Normal 110-370 [facility] Comment on above: Performed By: #### 3 4529-8 #### LOPEZ Coreas ([id number]) [facility] ([facility]) [address] [place] [address] 04602 Iron saturation [Mass fraction] 9 % Low 25-45 [facility] Comment on above: Performed By: #### 3 4529-8 #### LOPEZ Coreas ([id number]) [facility] ([facility]) [address] [place] [address] 83688 [place]edar Lambda Light Chainson 03-22-2025 FR KAPPA LT CHN 29.1 mg/L Abnormal 3.3-19.4 [facility] Comment on above: Performed By: #### L 503.6030, L503.0106, L503.6550, Q76356-3, L3100.1725, L3130.0010, L100.9950, L100.0100, L500.4050, L504.2610, L3100.1850, L3100.3425 ####[facility] [address] [place], [place], [id number] FR LAMBDA LT CH 23.4 mg/L Normal 5.7-26.3 [facility] Comment on above: Performed By: #### L 503.6030, L503.0106, L503.6550, G93577-5, L3100.1725, L3130.0010, L100.9950, L100.0100, L500.4050, L504.2610, L3100.1850, L3100.3425 ####[facility] [address] [facility] [place], [place], [id number] KAPPA/LAMBDA % 1.24 Normal 0.26-1.65 [facility] Comment on above: Performed By: #### L 503.6030, L503.0106, L503.6550, N64520-1, L3100.1725, L3130.0010, L100.9950, L100.0100, L500.4050, L504.2610, L3100.1850, L3100.3425 ####[facility] [address] [facility] [place], [place], [id number] Lipaseon 03-22-2025 Lipase [Catalytic activity/Vol] 28 U/L 9 - 82 U/L [facility] Lipase [Catalytic activity/V ol]on 03-22-2025 Interpretation and review of laboratory results Normal [facility] Venipuncture immediately after or during the administration of Metamizole may lead to falsely low results. Testing should be performed immediately prior to Metamizole dosing. [facility] Magnesiumon 03-22-2025 Magnesium [Mass/Vol] 2.16 mg/dL 1.60 - 2.40 mg/dL [facility] Magnesium [Mass/Vol] 2.16 mg/dL Normal 1.60-2.40 [facility] Comment on above: Performed By: #### 3 4529-8 #### LOPEZ Coreas ([id number]) [facility] ([facility]) [address] [place] [address] Magnesium [Mass/Vol]on 03-22 Interpretation and review of laboratory results Normal [facility] No Panel Informationon 03-22 [facility] Prepare RBC: 1 Unitson 03-22 Blood Expiration Date 04/02/2025 11:59:00 PM EDT [facility] Dispense Status TR [facility] PRODUCT BLOOD TYPE [facility] PRODUCT CODE [id number] [facility] Unit ABO A [facility] Unit Number [id number] [facility] Positive [facility] UNIT VOLUME 350 [facility] XM INTEP COMP [facility] Renal function 2000 panelon 03-22-2025 Albumin BCP dye [Mass/Vol] 3.2 g/dL Low 3.4 - 5.0 g/dL [facility] Anion gap [Moles/Vol] 13 mmol/L 10 - 2 0 mmol/L [facility] Calcium [Mass/Vol] 8.6 mg/dL 8.6 - 10. 6 mg/dL [facility] Chloride [Moles/Vol] 110 mmol/L High 98 - 10 7 mmol/L [facility] CO2 [Moles/Vol] 22 mmol/L 21 - 32 mmol/L [facility] Creatinine [Mass/Vol] 1.26 mg/dL High 0.50 - 1.05 mg/dL [facility] GFR/1.73 sq M.predicted among non-blacks MDRD (S/P/Bld) [Vol rate/Area] 47 mL/min/{1.73_m2} Low - PINF [facility] Comment on above: Calculations of araceli mated GFR are performed using the 2020 CKD-EPI Study Refit equation without the race variable for the IDMS-Traceable creatinine methods. https://jasn.asnjournals.org/content//ASN.232 4649189 Glucose [Mass/Vol] 90 mg/dL 74 - 99 mg/dL [facility] Interpretation and review of laboratory results Abnormal [facility] Phosphate [Mass/Vol] 3.6 mg/dL 2.5 - 4 .9 mg/dL [facility] Potassium [Moles/Vol] 4 mmol/L 3.5 - 5.3 mmol/L [facility] Sodium [Moles/Vol] 141 mmol/L 136 - 145 mmol/L [facility] Urea nitrogen [Mass/Vol] 22 mg/dL 6 - 23 mg/dL [facility] Albumin BCP dye [Mass/Vol] 3.2 g/dL Low 3.4-5.0 [facility] Comment on above: Performed By: #### 3 4529-8 #### LOPEZ Coreas ([id number]) [facility] ([facility]) [address] [place] [address] Anion gap [Moles/Vol] 13 mmol/L Normal 10-20 [facility] Comment on above: Performed By: #### 3 4529-8 #### LOPEZ Coreas ([id number]) [facility] ([facility]) [address] [place] [address] 41841 Calcium [Mass/Vol] 8.6 mg/dL Normal 8.6-10.[address] [facility] Comment on above: Performed By: #### 3 4529-8 #### LOPEZ Coreas ([id number]) [facility] ([facility]) [address] [place] [address] 32571 Chloride [Moles/Vol] 110 mmol/L High 98-107 [facility] Comment on above: Performed By: #### 3 4529-8 #### LOPEZ Coreas ([id number]) [facility] ([facility]) [address] [place] [address] 47766 CO2 [Moles/Vol] 22 mmol/L Normal 21-32 [facility] Comment on above: Performed By: #### 3 4529-8 #### LOPEZ Coreas ([id number]) [facility] ([facility]) [address] [place] [address] 78851 Creatinine [Mass/Vol] 1.26 mg/dL High 0.50-1.05 [facility] Comment on above: Performed By: #### 3 4529-8 #### LOPEZ Coreas ([id number]) [facility] ([facility]) [address] [place] [address] 69879 Glomerular filtration rate/1.73 sq M.predicted 47 mL/min/1.73m*2 Low >60 [facility] Comment on above: Result Comment: Calc ulations of estimated GFR are performed using the 2020 CKD-EPI Study Refit equation without the race variable for the IDMS-Traceable creatinine methods. https://jasn.asnjournals.org/content//ASN.303 8772463 Performed By: #### 3 4529-8 #### LOPEZ Coreas ([id number]) [facility] ([facility]) [address] [place] [address] Glucose [Mass/Vol] 90 mg/dL Normal 74-[address] [facility] Comment on above: Performed By: #### 3 4529-8 #### LOPEZ FAN L ([id number]) [facility] ([facility]) [address] [place] [address] 60154 Phosphate [Mass/Vol] 3.6 mg/dL Normal 2.5-4.9 [facility] Comment on above: Performed By: #### 3 4529-8 #### LOPEZ FAN L ([id number]) [facility] ([facility]) [address] [place] [address] 89794 Potassium [Moles/Vol] 4.0 mmol/L Normal 3.5-5.3 [facility] Comment on above: Performed By: #### 3 4529-8 #### LOPEZ AYONMOTZJULIO CÉSAR L ([id number]) [facility] ([facility]) [address] [place] [address] 52654 Sodium [Moles/Vol] 141 mmol/L Normal 136-[address] [facility] Comment on above: Performed By: #### 3 4529-8 #### LOPEZ AYONMOTZJULIO CÉSAR L ([id number]) [facility] ([facility]) [address] [place] [address] 10556 Urea nitrogen [Mass/Vol] 22 mg/dL Normal 6-23 [facility] Comment on above: Performed By: #### 3 4529-8 #### LOPEZ SHEETSTZJULIO CÉSAR L ([id number]) [facility] ([facility]) [address] [place] [address] Reticulocytes panel (Bld)on 03-22-2025 Hemoglobin (Reticulocytes) [Entitic mass] 24 pg Low 28 - 38 pg [facility] Immature Retic fraction 25.7 % High NINF - 16.0 % [facility] Comment on above: Reticulocytes are me asured based on a fluorescent technique. The IRF, or immature reticulocyte fraction, is the percent of reticulocytes that show medium (MFR) or high (HFR) fluorescence. This value can be used to assess the relative maturity of the reticulocyte population in response to anemia. The shift reticulocytes are not measured by this technique, eliminating the need for their correction in the reticulocyte index. Interpretation and review of laboratory results Abnormal [facility] Reticulocytes (Bld) [#/Vol] 0.14 10*3/uL High [facility] Reticulocytes/100 RBC (Bld) 5.6 % High 0.5 - 2.0 % [facility] Hemoglobin (Reticulocytes) [Entitic mass] 24 pg Low 28-38 [facility] Comment on above: Performed By: #### 3 4529-8 #### LOPEZ Coreas ([id number]) [facility] ([facility]) [address] [place] [address] IMMATURE RETIC FRACTION 25.7 % High <=16.0 U [facility] Comment on above: Result Comment: Reti culocytes are measured based on a fluorescent technique. The IRF, or immature reticulocyte fraction, is the percent of reticulocytes that show medium (MFR) or high (HFR) fluorescence. This value can be used to assess the relative maturity of the reticulocyte population in response to anemia. The shift reticulocytes are not measured by this technique, eliminating the need for their correction in the reticulocyte index. Performed By: #### 3 4529-8 #### LOPEZ Coreas ([id number]) [facility] ([facility]) [address] [place], [place] [address] Reticulocytes (Bld) [#/Vol] 0.140 x10*6/uL High 0.017-0.110 [facility] Comment on above: Performed By: #### 3 4529-8 #### LOPEZ Coreas ([id number]) [facility] ([facility]) [address] [place] [address] 90225 Reticulocytes/100 RBC (Bld) 5.6 % High 0.5-2.0 [facility] Comment on above: Performed By: #### 3 4529-8 #### LOPEZ Coreas ([id number]) [facility] ([facility]) [address] [place] [address] 26075 Triacylglycerol lipaseon Lipase [Catalytic activity/Vol] 28 U/L Normal 9-82 [facility] Comment on above: Order Comment: The A PTT is no longer used for monitoring Unfractionated Heparin Therapy. For monitoring Heparin Therapy, use the Heparin Assay. Performed By: #### 3 4529-8 #### LOPEZ Coreas ([id number]) [facility] ([facility]) [address] [place] [address] 47847 ABO and Rh group panel (Bld) on 03-21-2025 ABO group Nom (Bld) A [facility] D Ag Ql (Bld) Positive [facility] ABO group Nom (Bld) A Normal [facility] Comment on above: Performed By: #### 3 4530-6 #### LOPEZ Coreas ([id number]) [facility] ([facility]) [address] [place] [address] 75685 D Ag Ql (Bld) Positive [facility] Comment on above: Performed By: #### 3 4530-6 #### LOPEZ Coreas ([id number]) [facility] ([facility]) [address] [place] [address] 54589 Blood type and Indirect anti body screen panel (Bld)on 03-21-2025 Blood group antibody screen Ql Negative [facility] Comment on above: Performed By: #### 3 4532-2 ####LOPEZ Coreas ([id number])[facility] ([facility])[address] [place] [address] 78449 CBC W Auto Differential pane l (Bld)on 03-21-2025 Basophils (Bld) [#/Vol] 0.12 10*3/uL High [facility] Basophils/100 WBC (Bld) 1.2 % 0.0 - 2.0 % [facility] Eosinophils (Bld) [#/Vol] 0.13 10*3/uL [facility] Eosinophils/100 WBC (Bld) 1.3 % 0.0 - 6.0 % [facility] Erythrocyte distribution width (RBC) [Ratio] 17.4 % High 11.5 - 14.5 % [facility] Hematocrit (Bld) [Volume fraction] 27.9 % Low 36.0 - 46.0 % [facility] Hemoglobin (Bld) [Mass/Vol] 8.8 g/dL Low 12.0 - 16.0 g/dL [facility] Immature granulocytes (Bld) [#/Vol] 0.03 10*3/uL [facility] Immature granulocytes/100 WBC (Bld) 0.3 % 0.0 - 0.9 % [facility] Comment on above: Immature Granulocyte Count (IG) includes promyelocytes, myelocytes and metamyelocytes but does not include bands. Percent differential counts (%) should be interpreted in the context of the absolute cell counts (cells/UL). Interpretation and review of laboratory results Abnormal [facility] Lymphocytes (Bld) [#/Vol] 1.62 10*3/uL [facility] Lymphocytes/100 WBC (Bld) 16.5 % 13.0 - 44.0 % [facility] MCH (RBC) [Entitic mass] 29.1 pg 26. 0 - 34.0 pg [facility] MCHC (RBC) [Mass/Vol] 31.5 g/dL Low 32.0 - 36.0 g/dL [facility] MCV (RBC) [Entitic vol] 92 fL 80 - 100 fL [facility] Monocytes (Bld) [#/Vol] 0.42 10*3/uL [facility] Monocytes/100 WBC (Bld) 4.3 % 2.0 - 10.0 % [facility] Neutrophils (Bld) [#/Vol] 7.51 10*3/uL [facility] Comment on above: Percent differential counts (%) should be interpreted in the context of the absolute cell counts (cells/uL). Neutrophils/100 WBC (Bld) 76.4 % 40.0 - 80.0 % [facility] Nucleated RBC/100 WBC (Bld) [Ratio] 0 % [facility] Platelets (Bld) [#/Vol] 252 10*3/uL [facility] RBC (Bld) [#/Vol] 3.02 10*6/uL Low [facility] WBC (Bld) [#/Vol] 9.8 10*3/uL [facility] Basophils (Bld) [#/Vol] 0.12 x10*3/uL High 0.00-0.10 [facility] Comment on above: Performed By: #### 5 7021-8 #### LOPEZ Coreas ([id number]) [facility] ([facility]) [address] [place] [address] 76817 Basophils/100 WBC (Bld) 1.2 % Normal 0.0-2.0 U [facility] Comment on above: Performed By: #### 5 7021-8 #### LOPEZ Coreas ([id number]) [facility] ([facility]) [address] [place] [address] 77722 Eosinophils (Bld) [#/Vol] 0.13 x10*3/uL Normal 0.00-0.70 [facility] Comment on above: Performed By: #### 5 7021-8 #### LOPEZ Coreas ([id number]) [facility] ([facility]) [address] [place] [address] 50241 Eosinophils/100 WBC (Bld) 1.3 % Normal 0.0-6.0 [facility] Comment on above: Performed By: #### 5 7021-8 #### LOPEZ Coreas ([id number]) [facility] ([facility]) [address] [place] [address] 75860 Erythrocyte distribution width (RBC) [Ratio] 17.4 % High 11.5-14.5 [facility] Comment on above: Performed By: #### 5 7021-8 #### LOPEZ Coreas ([id number]) [facility] ([facility]) [address] [place] [address] Hematocrit (Bld) [Volume fraction] 27.9 % Low 36.0-46.0 [facility] Comment on above: Performed By: #### 5 7021-8 #### LOPEZ FAN L ([id number]) [facility] ([facility]) [address] [place] [address] 39674 Hemoglobin (Bld) [Mass/Vol] 8.8 g/dL Low 12.0-16.0 [facility] Comment on above: Performed By: #### 5 7021-8 #### LOPEZ Coreas ([id number]) [facility] ([facility]) [address] [place] [address] 87893 Immature granulocytes (Bld) [#/Vol] 0.03 x10*3/uL Normal 0.00-0.70 [facility] Comment on above: Performed By: #### 5 7021-8 #### LOPEZ Coreas ([id number]) [facility] ([facility]) [address] [place] [address] 01825 Immature granulocytes/100 WBC (Bld) 0.3 % Normal 0.0-0.9 [facility] Comment on above: Result Comment: Leonora ture Granulocyte Count (IG) includes promyelocytes, myelocytes and metamyelocytes but does not include bands. Percent differential counts (%) should be interpreted in the context of the absolute cell counts (cells/UL). Performed By: #### 5 7021-8 #### LOPEZ Coreas ([id number]) [facility] ([facility]) [address] [place] [address] Lymphocytes (Bld) [#/Vol] 1.62 x10*3/uL Normal 1.20-4.80 [facility] Comment on above: Performed By: #### 5 7021-8 #### LOPEZ FAN L ([id number]) [facility] ([facility]) [address] [place] [address] 61148 Lymphocytes/100 WBC (Bld) 16.5 % Normal 13.0-44.0 [facility] Comment on above: Performed By: #### 5 7021-8 #### LOPEZ Coreas ([id number]) [facility] ([facility]) [address] [place] [address] 58985 MCH (RBC) [Entitic mass] 29.1 pg Normal 26.0-34.0 [facility] Comment on above: Performed By: #### 5 7021-8 #### LOPEZ Coreas ([id number]) [facility] ([facility]) [address] [place] [address] 94822 MCHC (RBC) [Mass/Vol] 31.5 g/dL Low 32.0-36.0 [facility] Comment on above: Performed By: #### 5 7021-8 #### LOPEZ Coreas ([id number]) [facility] ([facility]) [address] [place] [address] 66545 MCV (RBC) [Entitic vol] 92 fL Normal 80-100 U [facility] Comment on above: Performed By: #### 5 7021-8 #### OLPEZ Coreas ([id number]) [facility] ([facility]) [address] [place] [address] 99645 Monocytes (Bld) [#/Vol] 0.42 x10*3/uL Normal 0.10-1.00 [facility] Comment on above: Performed By: #### 5 7021-8 #### LOPEZ Coreas (55563) [facility] ([facility]) [address] [place] [address] 61360 Monocytes/100 WBC (Bld) 4.3 % Normal 2.0-10.0 U [facility] Comment on above: Performed By: #### 5 7021-8 #### LOPEZ Coreas (67152) [facility] ([facility]) [address] [place] [address] 34295 Neutrophils (Bld) [#/Vol] 7.51 x10*3/uL Normal 1.20-7.70 [facility] Comment on above: Result Comment: Perc ent differential counts (%) should be interpreted in the context of the absolute cell counts (cells/uL). Performed By: #### 5 7021-8 #### LOPEZ Coreas ([id number]) [facility] ([facility]) [address] [place] [address] Neutrophils/100 WBC (Bld) 76.4 % Normal 40.0-80.0 [facility] Comment on above: Performed By: #### 5 7021-8 #### LOPEZ Coreas ([id number]) [facility] ([facility]) [address] [place] [address] 24528 Nucleated RBC/100 WBC (Bld) [Ratio] 0.0 /100 WBCs Normal 0.0-0.0 [facility] Comment on above: Performed By: #### 5 7021-8 #### LOPEZ Coreas ([id number]) [facility] ([facility]) [address] [place] [address] 22229 Platelets (Bld) [#/Vol] 252 x10*3/uL Normal 150-450 [facility] Comment on above: Performed By: #### 5 7021-8 #### LOPEZ Coreas (85561) [facility] ([facility]) [address] [place] [address] 71541 RBC (Bld) [#/Vol] 3.02 x10*6/uL Low 4.00-5.20 [facility] Comment on above: Performed By: #### 5 7021-8 #### LOPEZ Coreas ([id number]) [facility] ([facility]) [address] [place] [address] 02081 WBC (Bld) [#/Vol] 9.8 x10*3/uL Normal 4.4-11.3 [facility] Comment on above: Performed By: #### 5 7021-8 #### LOPEZ Coreas ([id number]) [facility] ([facility]) [address] [place] [address] 63555 Comprehensive metabolic 2000 panelon 03-21-2025 Albumin BCP dye [Mass/Vol] 4.5 g/dL 3.4 - 5.0 g/dL [facility] ALP [Catalytic activity/Vol] 75 U/L 33 - 136 U/L [facility] ALT With P-5'-P [Catalytic activity/Vol] 16 U/L 7 - 45 U/L [facility] Comment on above: Patients treated wit h Sulfasalazine may generate falsely decreased results for ALT. Anion gap [Moles/Vol] 13 mmol/L 10 - 2 0 mmol/L [facility] AST With P-5'-P [Catalytic activity/Vol] 10 U/L 9 - 39 U/L [facility] Bilirubin [Mass/Vol] 0.6 mg/dL 0.0 - 1 .2 mg/dL [facility] Calcium [Mass/Vol] 10.1 mg/dL 8.6 - 10. 6 mg/dL [facility] Chloride [Moles/Vol] 107 mmol/L 98 - 10 7 mmol/L [facility] CO2 [Moles/Vol] 24 mmol/L 21 - 32 mmol/L [facility] Creatinine [Mass/Vol] 1.05 mg/dL 0.50 - 1.05 mg/dL [facility] GFR/1.73 sq M.predicted among non-blacks MDRD (S/P/Bld) [Vol rate/Area] 58 mL/min/{1.73_m2} Low - PINF [facility] Comment on above: Calculations of araceli mated GFR are performed using the 2020 CKD-EPI Study Refit equation without the race variable for the IDMS-Traceable creatinine methods. https://jasn.asnjournals.org/content//ASN.232 2098781 Glucose [Mass/Vol] 90 mg/dL 74 - 99 mg/dL [facility] Interpretation and review of laboratory results Abnormal [facility] Potassium [Moles/Vol] 4.1 mmol/L 3.5 - 5.3 mmol/L [facility] Protein [Mass/Vol] 7.3 g/dL 6.4 - 8.2 g/dL [facility] Sodium [Moles/Vol] 140 mmol/L 136 - 145 mmol/L [facility] Urea nitrogen [Mass/Vol] 18 mg/dL 6 - 23 mg/dL [facility] Albumin BCP dye [Mass/Vol] 4.5 g/dL Normal 3.4-5.0 [facility] Comment on above: Performed By: #### 2 4323-8 #### LOPEZ Coreas ([id number]) [facility] ([facility]) [address] [place] [address] 44875 ALP [Catalytic activity/Vol] 75 U/L Normal 33-136 [facility] Comment on above: Performed By: #### 2 4323-8 #### LOPEZ Coreas ([id number]) [facility] ([facility]) [address] [place] [address] 56566 ALT With P-5'-P [Catalytic activity/Vol] 16 U/L Normal 7-45 [facility] Comment on above: Result Comment: Luz ents treated with Sulfasalazine may generate falsely decreased results for ALT. Performed By: #### 2 4323-8 #### LOPEZ Coreas ([id number]) [facility] ([facility]) [address] [place] [address] 65313 Anion gap [Moles/Vol] 13 mmol/L Normal 10-20 [facility] Comment on above: Performed By: #### 2 4323-8 #### LOPEZ Coreas ([id number]) [facility] ([facility]) [address] [place] [address] 35116 AST With P-5'-P [Catalytic activity/Vol] 10 U/L Normal 9-39 [facility] Comment on above: Performed By: #### 2 4323-8 #### LOPEZ Coreas ([id number]) [facility] ([facility]) [id number] [place] [address] [id number] Bilirubin [Mass/Vol] 0.6 mg/dL Normal 0.0-1.2 [facility] Comment on above: Performed By: #### 2 4323-8 #### LOPEZ FAN L ([id number]) [facility] ([facility]) [address] [place] [address] Calcium [Mass/Vol] 10.1 mg/dL Normal 8.6-10.[address] [facility] Comment on above: Performed By: #### 2 4323-8 #### LOPEZ LIRIANOER L ([id number]) [facility] ([facility]) [address] [place] [address] Chloride [Moles/Vol] 107 mmol/L Normal 98-107 [facility] Comment on above: Performed By: #### 2 4323-8 #### LOPEZ SHEETSTZER L ([id number]) [facility] ([facility]) [id number] [place] [id number] CO2 [Moles/Vol] 24 mmol/L Normal 21-32 [facility] [facility] Comment on above: Performed By: #### 2 4323-8 #### LOPEZ FAN L ([id number]) [facility] ([facility]) [address] [place] [address] Creatinine [Mass/Vol] 1.05 mg/dL Normal 0.50-1.05 [facility] Comment on above: Performed By: #### 2 4323-8 #### LOPEZ LIRIANOER L ([id number]) [facility] ([facility]) [id number] [place] [address] Glomerular filtration rate/1.73 sq M.predicted 58 mL/min/1.73m*2 Low >60 [facility] Comment on above: Result Comment: Calc ulations of estimated GFR are performed using the 2020 CKD-EPI Study Refit equation without the race variable for the IDMS-Traceable creatinine methods. https://jasn.asnjournals.org/content///ASN.203 0413851 Performed By: #### 2 4323-8 #### LOPEZ SHEETSTZER L ([id number]) [facility] ([facility]) [id number] [place] [address] Glucose [Mass/Vol] 90 mg/dL Normal 74-[address] [facility] Comment on above: Performed By: #### 2 4323-8 #### LOPEZ Coreas ([id number]) [facility] ([facility]) [id number] [place] [address] Potassium [Moles/Vol] 4.1 mmol/L Normal 3.5-5.3 [facility] Comment on above: Performed By: #### 2 4323-8 #### LOPEZ Coreas ([id number]) [facility] ([facility]) [id number] [place] [address] Protein [Mass/Vol] 7.3 g/dL Normal 6.4-8.[address] [facility] Comment on above: Performed By: #### 2 4323-8 #### LOPEZ Coreas ([id number]) [facility] ([facility]) [address] [place] [address] Sodium [Moles/Vol] 140 mmol/L Normal 136-[address] [facility] Comment on above: Performed By: #### 2 4323-8 #### LOPEZ Coreas ([id number]) [facility] ([facility]) [address] [place] [address] Urea nitrogen [Mass/Vol] 18 mg/dL Normal 6-23 [facility] Comment on above: Performed By: #### 2 4323-8 #### LOPEZ Coreas ([id number]) [facility] ([facility]) [address] [place] [address] D-dimer, quantitativeon - Fibrin D-dimer FEU (PPP) [Mass/Vol] 924 [facility] ECG 12-LEADon 03-21-2025 ECG 12-LEAD Ventricular Rate 75 Atrial Rate 75 P-R Interval 160 QRS Duration 70 Q-T Interval 374 QTC Calculation(Bazett) 417 P Braddock 71 R Braddock 66 T Braddock 62 QRS Count 12 Q Onset 222 P Onset 142 P Offset 186 T Offset 409 QTC Fredericia 402 Diagnosis Normal sinus rhythm Normal ECG When compared with ECG of 21-MAR-2025 18:01, No significant change was found Confirmed by Abe Means ([id number]) on 03/22/2025 5:57:51 PM Normal [facility] ECG 12-LEAD Ventricular Rate 79 Atrial Rate 79 P-R Interval 156 QRS Duration 74 Q-T Interval 366 QTC Calculation(Bazett) 419 P Braddock 80 R Braddock 76 T Braddock 76 QRS Count 13 Q Onset 224 P Onset 146 P Offset 197 T Offset 407 QTC Fredericia 401 Diagnosis Normal sinus rhythm Normal ECG No previous ECGs available See ED provider note for full interpretation and clinical correlation Confirmed by Pilar Borja ([id number]) on 03/22/2025 12:59:17 AM Normal [facility] Fibrin D-dimer FEUon 025 Fibrin D-dimer FEU (PPP) [Mass/Vol] 924 ng/mL FEU High <=500 [facility] Comment on above: Order Comment: The D -Dimer assay is reported in ng/mL Fibrinogen Equivalent Units (FEU). The results of this assay should NOT be used for the exclusion of Deep Vein Thrombosis and/or Pulmonary Embolism. Performed By: #### 4 8065-7 #### LOPEZ Coreas ([id number]) [facility] ([facility]) [address] [place] [address] Fibrin D-dimer FEU (PPP) [Ma ss/Vol]on 03-21-2025 Interpretation and review of laboratory results Abnormal [facility] The D-Dimer assay is reported in ng/mL Fibrinogen Equivalent Units (FEU). The results of this assay should NOT be used for the exclusion of Deep Vein Thrombosis and/or Pulmonary Embolism. [facility] Natriuretic peptide B [Mass/ Vol]on 03-21-2025 Interpretation and review of laboratory results Abnormal [facility] Natriuretic peptide B (Bld) [Mass/Vol] 251 pg/mL High 0 - 99 pg/mL [facility] <100 pg/mL - Heart failure unlikely 100-299 pg/mL - Intermediate probability of acute heart failure exacerbation. Correlate with clinical context and patient history. >=300 pg/mL - Heart Failure likely. Correlate with clinical context and patient history. Biotin interference may cause falsely decreased results. Patients taking a Biotin dose of up to 5 mg/day should refrain from taking Biotin for 24 hours before sample collection. Providers may contact their local laboratory for further information. [facility] Natriuretic peptide B (Bld) [Mass/Vol] 251 pg/mL High 0-99 [facility] Comment on above: Order Comment: <100 pg/mL - Heart failure unlikely 100-299 pg/mL - Intermediate probability of acute heart failure exacerbation. Correlate with clinical context and patient history. >=300 pg/mL - Heart Failure likely. Correlate with clinical context and patient history. Biotin interference may cause falsely decreased results. Patients taking a Biotin dose of up to 5 mg/day should refrain from taking Biotin for 24 hours before sample collection. Providers may contact their local laboratory for further information. Performed By: #### 3 0934-4 #### LOPEZ Coreas ([id number]) [facility] ([facility]) [address] [place] [address] PT and aPTT panel Coag (PPP) on 03-21-2025 aPTT Coag (PPP) [Time] 28 s [facility] INR Coag (PPP) [Relative time] 1 {INR} 0.9 - 1.1 [facility] Interpretation and review of laboratory results Normal [facility] PT Coag (PPP) [Time] 11.3 s [facility] The APTT is no longe r used for monitoring Unfractionated Heparin Therapy. For monitoring Heparin Therapy, use the Heparin Assay. [facility] aPTT Coag (PPP) [Time] 28 s Normal 26-36 [facility] Comment on above: Order Comment: The A PTT is no longer used for monitoring Unfractionated Heparin Therapy. For monitoring Heparin Therapy, use the Heparin Assay. Performed By: #### 3 4529-8 #### LOPEZ Coreas ([id number]) [facility] ([facility]) [address] [place] [address] INR Coag (PPP) [Relative time] 1.0 Normal 0.9-1.1 [facility] Comment on above: Order Comment: The A PTT is no longer used for monitoring Unfractionated Heparin Therapy. For monitoring Heparin Therapy, use the Heparin Assay. Performed By: #### 3 4529-8 #### LOPEZ Coreas ([id number]) [facility] ([facility]) [address] [place] [address] PT Coag (PPP) [Time] 11.3 s Normal 9.8-12.4 [facility] Comment on above: Order Comment: The A PTT is no longer used for monitoring Unfractionated Heparin Therapy. For monitoring Heparin Therapy, use the Heparin Assay. Performed By: #### 3 4529-8 #### LOPEZ AYONMOTRISTONER L ([id number]) [facility] ([facility]) [address] [place] [address] Tropinin I.cardiac panel Hig h sensitivity methodon 03-21-2025 Interpretation and review of laboratory results Normal [facility] Less than 99th percentile of normal range cutoff- Female and children under 18 years old <35 ng/L; Male <54 ng/L: Negative Repeat testing should be performed if clinically indicated. Female and children under 18 years old 35-120 ng/L; Male 54-120 ng/L: Consistent with possible cardiac damage and possible increased clinical risk. Serial measurements may help to assess extent of myocardial damage. >120 ng/L: Consistent with cardiac damage, increased clinical risk and myocardial infarction. Serial measurements may help assess extent of myocardial damage. NOTE: Children less than 1 year old may have higher baseline troponin levels and results should be interpreted in conjunction with the overall clinical context. NOTE: Troponin I testing is performed using a different testing methodology at [facility] than at other [facility]. Direct result comparisons should only be made within the same method. [facility] Troponin I, High Sensitivity on 03-21-2025 Tropinin I.cardiac panel High sensitivity method 11 ng/L 0 - 34 ng/L [facility] Troponin I.cardiac panelon 0 03-21-2025 Tropinin I.cardiac panel High sensitivity method 11 ng/L Normal 0-34 [facility] Comment on above: Order Comment: Less than 99th percentile of normal range cutoff- Female and children under 18 years old <35 ng/L; Male <54 ng/L: Negative Repeat testing should be performed if clinically indicated. Female and children under 18 years old 35-120 ng/L; Male 54-120 ng/L: Consistent with possible cardiac damage and possible increased clinical risk. Serial measurements may help to assess extent of myocardial damage. >120 ng/L: Consistent with cardiac damage, increased clinical risk and myocardial infarction. Serial measurements may help assess extent of myocardial damage. NOTE: Children less than 1 year old may have higher baseline troponin levels and results should be interpreted in conjunction with the overall clinical context. NOTE: Troponin I testing is performed using a different testing methodology at [facility] than at other [facility]. Direct result comparisons should only be made within the same method. Performed By: #### 8 9577-1 #### LOPEZ Coreas ([id number]) [facility] ([facility]) [id number] [place] [address] VERAB/VERIFY ABORHon 025 ABO group Nom (Bld) A Normal [facility] Comment on above: Order Comment: Thi s is for confirming/verifying history of ABORh on file for transfusion of blood products. If this is not for transfusion, please order an ABO/RH [[id number]]. If you have any questions or unsure what to order, please call the blood bank. Performed By: #### V ERAB #### LOPEZ Coreas ([id number]) [facility] ([facility]) [id number] [place], [place] [id number] D Ag Ql (Bld) Positive Normal [facility] Comment on above: Order Comment: Thi s is for confirming/verifying history of ABORh on file for transfusion of blood products. If this is not for transfusion, please order an ABO/RH [[id number]]. If you have any questions or unsure what to order, please call the blood bank. Performed By: #### V ERAB #### LOPEZ Coreas ([id number]) [facility] ([facility]) [address] [place] [address] VERIFY ABO/Rh Group Teston 0 03-21-2025 ABO group Nom (Bld) A [facility] D Ag Ql (Bld) Positive [facility] XR CHEST 1 VIEWon 03-21-2025 XR CHEST 1 VIEW Interpreted By: Dorcas Roman, STUDY: Chest, single AP view. INDICATION: Signs/Symptoms:sob. COMPARISON: None. ACCESSION NUMBER(S): [id number] ORDERING CLINICIAN: NOHEMY PALUMBO FINDINGS: The cardiac silhouette size is within normal limits. Linear opacities of the bilateral lung bases likely representing atelectasis. Focal linear opacity noted of the left lower lung which may represent atelectasis with underlying pulmonary nodule not ruled out. There is no focal consolidation, edema or pneumothorax. No sizeable pleural effusion. No acute osseous abnormality. IMPRESSION: 1. Findings of bibasilar atelectasis 2. Focal linear opacity noted of the left lower lung which may represent atelectasis with underlying pulmonary nodule not ruled out. Recommend follow-up radiographs in 4 weeks. If this is persistent on the follow-up radiographs, then a CT chest is recommended for additional evaluation. MACRO: Critical Finding: See findings. Notification was initiated on 03/21/2025 at 5:10 pm by Dorcas Roman. (-YCF-) Signed by: Dorcas Roman 03/21/2025 5:10 PM Dictation workstation: [id number] [facility] XR Chest Single viewon 03-21 1. Findings of bibasilar atelectasis 2. Focal linear opacity noted of the left lower lung which may represent atelectasis with underlying pulmonary nodule not ruled out. Recommend follow-up radiographs in 4 weeks. If this is persistent on the follow-up radiographs, then a CT chest is recommended for additional evaluation. MACRO: Critical Finding: See findings. Notification was initiated on 03/21/2025 at 5:10 pm by Dorcas Roman. (-YCF-) Signed by: Dorcas Roman 03/21/2025 5:10 PM Dictation workstation: [id number] MMODAL Interpreted By: Dorcas Roman, STUDY: Chest, single AP view. INDICATION: Signs/Symptoms:sob. COMPARISON: None. ACCESSION NUMBER(S): [id number] ORDERING CLINICIAN: NOHEMY PALUMBO FINDINGS: The cardiac silhouette size is within normal limits. Linear opacities of the bilateral lung bases likely representing atelectasis. Focal linear opacity noted of the left lower lung which may represent atelectasis with underlying pulmonary nodule not ruled out. There is no focal consolidation, edema or pneumothorax. No sizeable pleural effusion. No acute osseous abnormality. MMODAL Dorcas Roman MD - 03/21/2025 Interpreted By: Dorcas Roman, STUDY: Chest, single AP view. INDICATION: Signs/Symptoms:sob. COMPARISON: None. ACCESSION NUMBER(S): [id number] ORDERING CLINICIAN: NOHEMY PALUMBO FINDINGS: The cardiac silhouette size is within normal limits. Linear opacities of the bilateral lung bases likely representing atelectasis. Focal linear opacity noted of the left lower lung which may represent atelectasis with underlying pulmonary nodule not ruled out. There is no focal consolidation, edema or pneumothorax. No sizeable pleural effusion. No acute osseous abnormality. IMPRESSION: 1. Findings of bibasilar atelectasis 2. Focal linear opacity noted of the left lower lung which may represent atelectasis with underlying pulmonary nodule not ruled out. Recommend follow-up radiographs in 4 weeks. If this is persistent on the follow-up radiographs, then a CT chest is recommended for additional evaluation. MACRO: Critical Finding: See findings. Notification was initiated on 03/21/2025 at 5:10 pm by Dorcas Roman. (-YCF-) Signed by: Dorcas Roman 03/21/2025 5:10 PM Dictation workstation: [id number] [facility] Work Phone: Radiology Study observation (narrative) [facility] Work Phone: XR Chest Single viewOrdered By: Dorcas Roman on 03-21-2025 [facility] Work Phone: Absolute lymphocyte countOrd ered By: Dax Álvarez on 03-20-2025 Lymphocytes Auto (Unsp spec) [#/Vol] 1.35 10*3/uL 0.83-4.51 [facility] Albumin Elph [Mass/Vol]Order ed By: Dax Álvarez on 03-20-2025 Albumin [Mass/Vol] 3.9 g/dL 2.9-4.4 [facility] Anion gap in Serum or Plasma Ordered By: Dax Álvarez on 03-20-2025 Anion gap [Moles/Vol] 12 mmol/L 5-15 [facility] Automated lymphocyte count a s percentage of total leukocytesOrdered By: Dax Álvarez on 03-20-2025 Lymphocytes/100 WBC Auto (Unsp spec) 15.5 % Low 19-41 [facility] [id number] 03-20-2025 DIRECT PEACE NEG w/POLYSPECIFIC Normal NEGATIVE [facility] Comment on above: Performed By: #### L 503.6030, L503.0106, L503.6550, D68641-6, L3100.1725, L3130.0010, L100.9950, L100.0100, L500.4050, L504.2610, L3100.1850, L3100.3425 ####[facility] [address] [place], [address] BUN/creatinine ratioOrdered By: Dax Álvarez on 03-20-2025 Urea nitrogen/Creatinine [Mass ratio] 19.0 mg/mg 10-20 [facility] Basophil percentageOrdered B y: Dax Álvarez on 03-20-2025 Basophils/100 WBC (Bld) 1.6 % High 0-[address] [facility] Bilirubin, totalOrdered By: Dax Álvarez on 03-20-2025 Bilirubin [Mass/Vol] 0.43 mg/dL 0.00-1.30 [facility] CBC W/Diff, Automatedon 02-22 Anisocytosis Ql (Bld) 1+ Normal [facility] Comment on above: Performed By: #### L 503.6030, L503.0106, L503.6550, P38535-6, L3100.1725, L3130.0010, L100.9950, L100.0100, L500.4050, L504.2610, L3100.1850, L3100.3425 ####[facility] [address] [place], [place], [id number] Carbon dioxide, total [Moles /volume] in Central venous bloodOrdered By: Dax Álvarez on 03-20-2025 CO2 [Moles/Vol] 22.3 mmol/L 21.0-32.0 [facility] Chloride assayOrdered By: Lobito Álvarez on 03-20-2025 Chloride [Moles/Vol] 106 mmol/L 98-108 [facility] Comprehensive Metabolic Prof ilon 03-20-2025 Albumin [Mass/Vol] 4.2 g/dL Normal 3.4-4.8 [facility] Comment on above: Performed By: #### L 503.6030, L503.0106, L503.6550, S49477-8, L3100.1725, L3130.0010, L100.9950, L100.0100, L500.4050, L504.2610, L3100.1850, L3100.3425 ####[facility] [address] [place], [address] Albumin/Globulin [Mass ratio] 1.6 {ratio} Normal 0.9-2.4 [facility] Comment on above: Performed By: #### L 503.6030, L503.0106, L503.6550, I72012-7, L3100.1725, L3130.0010, L100.9950, L100.0100, L500.4050, L504.2610, L3100.1850, L3100.3425 ####[facility] [address] [place], [place], [phone] Globulin (S) [Mass/Vol] 2.7 g/dL Normal 2.2-4.2 [facility] Comment on above: Performed By: #### L 503.6030, L503.0106, L503.6550, W97686-5, L3100.1725, L3130.0010, L100.9950, L100.0100, L500.4050, L504.2610, L3100.1850, L3100.3425 ####[facility] [address] [facility] [place], [address] Eosinophil percentageOrdered By: [facility] on 03-20-2025 Eosinophils/100 WBC (Bld) 1.7 % 0-5 [facility] Erythrocyte distribution wid th ratioOrdered By: [facility] Henri on 03-20-2025 Erythrocyte distribution width (RBC) [Ratio] 18.5 % High 11.6-14.6 [facility] Erythrocyte distribution wid th standard deviationOrdered By: [facility] Boyskelly on 03-20-2025 Erythrocyte distribution width (RBC) [Ratio] 66.7 fl High 35.1-43.9 [facility] Erythrocyte folate measureme nt with hematocritOrdered By: [facility] on 03-20-2025 Hematocrit (Bld) [Volume fraction] 33.9 % Low 34.0-46.6 [facility] Ferritinon 03-20-2025 Ferritin [Mass/Vol] 64 ng/mL Normal 22-378 [facility] Comment on above: Performed By: #### L 503.6030, L503.0106, L503.6550, D89511-5, L3100.1725, L3130.0010, L100.9950, L100.0100, L500.4050, L504.2610, L3100.1850, L3100.3425 ####[facility] [address] [facility] [place], [address] Glomerular filtration rate ( GFR) estimation/1.73 sq m using serum, plasma, or whole bOrdered By: [facility] on 03-20-2025 GFR/1.73 sq M.predicted among non-blacks MDRD (S/P/Bld) [Vol rate/Area] 54 mL/min/{1.73_m2} Low >60 [facility] Hematocrit Auto (Bld) [Volum e fraction]Ordered By: [facility] on 03-20-2025 Hematocrit (Bld) [Volume fraction] 28.2 % Low 37-47 [facility] Hemoglobin measurementOrdere d By: Dax Álvarez on 03-20-2025 Hemoglobin (Bld) [Mass/Vol] 8.6 g/dL Low 12.0-15.0 [facility] Immature granulocytes/100 WB C Auto (Bld)Ordered By: Dax Álvarez on 03-20-2025 Immature granulocytes/100 WBC (Bld) 0.700 % 0.0-0.9 [facility] Interpretation of serum or p lasma protein pattern by immunofixation (narrative resultOrdered By: Dax Álvarez on 03-20-2025 Protein Fractions Immunofixation Bassam [Interp] Not Observed g/dL Not Observed [facility] Iron measurement (mass/mass) Ordered By: Dax Álvarez on 03-20-2025 Iron (Unsp spec) [Mass/Mass] 29 ug/dL Low 50-170 [facility] Iron+Iron Binding Capacityon 03-20-2025 Iron [Mass/Vol] 29 ug/dL Low 50-170 [facility] Comment on above: Performed By: #### L 503.6030, L503.0106, L503.6550, S24106-5, L3100.1725, L3130.0010, L100.9950, L100.0100, L500.4050, L504.2610, L3100.1850, L3100.3425 ####[facility] [address] [place], [place], [id number] IRON SATURATION 8.0 Low 13-59 [facility] Comment on above: Performed By: #### L 503.6030, L503.0106, L503.6550, C50645-2, L3100.1725, L3130.0010, L100.9950, L100.0100, L500.4050, L504.2610, L3100.1850, L3100.3425 ####[facility] [address] [place], [place], [phone] TIBC 372 ug/dL Normal 250-450 [facility] Comment on above: Performed By: #### L 503.6030, L503.0106, L503.6550, P11345-2, L3100.1725, L3130.0010, L100.9950, L100.0100, L500.4050, L504.2610, L3100.1850, L3100.3425 ####[facility] [address] [place], [place], [phone] UIBC 343 ug/dL Normal 228-428 [facility] Comment on above: Performed By: #### L 503.6030, L503.0106, L503.6550, U09156-1, L3100.1725, L3130.0010, L100.9950, L100.0100, L500.4050, L504.2610, L3100.1850, L3100.3425 ####[facility] [address] [place], [address] LDHon 03-20-2025 LDH 183 U/L Normal 84-246 [facility] Comment on above: Order Comment: 1 Performed By: #### L 503.6030, L503.0106, L503.6550, I85337-6, L3100.1725, L3130.0010, L100.9950, L100.0100, L500.4050, L504.2610, L3100.1850, L3100.3425 ####[facility] [address] [place], [place], [phone] MCV (mean corpuscular volume ) determinationOrdered By: Dax Álvarez on 03-20-2025 MCV (RBC) [Entitic vol] 97.9 fL 81-[address] [facility] Mean corpuscular hemoglobin (MCH) determinationOrdered By: Dax Álvarez on 03-20-2025 MCH (RBC) [Entitic mass] 29.9 pg 27.0-32.0 [facility] Monocyte percentageOrdered B y: Dax Álvarez on 03-20-2025 Monocytes/100 WBC (Bld) 4.6 % 0-[address] [facility] Neutrophil percentageOrdered By: Dax Álvarez on 03-20-2025 Neutrophils/100 WBC (Bld) 75.9 % High 47-70 [facility] No Panel InformationOrdered By: Dax Álvarez on 03-20-2025 Addendum Document Comment . [facility] 1+ [facility] 12 U/L <32 [facility] 343 ug/dL 228-428 [facility] Oncology Visit Reporton 02-22 Oncology Visit Report Normal [facility] Platelet countOrdered By: Lobito Álvarez on 03-20-2025 Platelets (Bld) [#/Vol] 267 10*3/uL 150-450 [facility] Potassium measurement (mass/ volume)Ordered By: Dax Álvarez on 03-20-2025 Potassium (Unsp spec) [Mass/Vol] 3.8 mmol/L 3.3-5.1 [facility] RBC Auto (Bld) [#/Vol]Ordere d By: Dax Álvarez on 03-20-2025 RBC (Bld) [#/Vol] 2.88 10*6/uL Low 4.2-5.4 [facility] Retic Panelon 03-20-2025 IM RET FRACTION 24.80 High 3.00-15.90 [facility] Comment on above: Performed By: #### L 503.6030, L503.0106, L503.6550, G47381-3, L3100.1725, L3130.0010, L100.9950, L100.0100, L500.4050, L504.2610, L3100.1850, L3100.3425 ####[facility] [address] [place], [place], [phone] RET-HE 24.0 pg Low 30-35 [facility] Comment on above: Performed By: #### L 503.6030, L503.0106, L503.6550, Y99605-8, L3100.1725, L3130.0010, L100.9950, L100.0100, L500.4050, L504.2610, L3100.1850, L3100.3425 ####[facility] [address] [place], [place], [phone] Retic Count 6.71 High 0.5-1.5 [facility] Comment on above: Performed By: #### L 503.6030, L503.0106, L503.6550, A02610-9, L3100.1725, L3130.0010, L100.9950, L100.0100, L500.4050, L504.2610, L3100.1850, L3100.3425 ####[facility] [address] [place], [place], [phone] Reticulocyte hemoglobin equi valent (RET-He) measurementOrdered By: Dax Álvarez on 03-20-2025 Hemoglobin (Reticulocytes) [Entitic mass] 24.0 pg Low 30-35 [facility] Reticulocytes Auto (Bld) [#/ Vol]Ordered By: Dax Álvarez on 03-20-2025 Reticulocytes/100 RBC (Bld) 6.71 % High 0.5-1.5 [facility] Serum creatinine measurement (mass/volume)Ordered By: Dax Álvarez on 03-20-2025 Creatinine [Mass/Vol] 1.11 mg/dL 0.70-1.20 [facility] Serum globulin measurementOr dered By: Dax Álvarez on 03-20-2025 Globulin (S) [Mass/Vol] 2.7 g/dL 2.2-4.[address] [facility] Serum globulin measurement ( mass/volume)Ordered By: Dax Álvarez on 03-20-2025 Globulin (S) [Mass/Vol] 2.8 g/dL 2.2-3.[address] [facility] Serum glucose measurement (m ass/volume)Ordered By: Dax Álvarez on 03-20-2025 Glucose [Mass/Vol] 108 mg/dL High 70-99 [facility] Serum immunoglobulin kappa l ight chains/immunoglobulin lambda light chains mass ratioOrdered By: Dax Álvarez on 03-20-2025 Immunoglobulin light chains.kappa/Immunoglobu amos light chains.lambda (S) [Mass ratio] 1.24 0.26-1.65 [facility] Serum or plasma IgA measurem ent (mass/volume)Ordered By: Dax Álvarez on 03-20-2025 IgA [Mass/Vol] 198 mg/dL 87-352 [facility] Serum or plasma IgG measurem ent (mass/volume)Ordered By: Dax Álvarez on 03-20-2025 IgG [Mass/Vol] 698 mg/dL 586-1602 [facility] Serum or plasma alanine tovar otransferase (ALT) measurementOrdered By: Dax Álvarez on 03-20-2025 ALT [Catalytic activity/Vol] 18 U/L <35 [facility] Serum or plasma albumin rosalina urement (mass/volume)Ordered By: Dax Álvarez on 03-20-2025 Albumin [Mass/Vol] 4.2 g/dL 3.4-4.8 [facility] Serum or plasma albumin/glob ulin mass ratioOrdered By: Dax Álvarez on 03-20-2025 Albumin/Globulin [Mass ratio] 1.6 {ratio} 0.9-2.4 [facility] Serum or plasma alkaline blanche sphatase measurementOrdered By: Dax Álvarez on 03-20-2025 ALP [Catalytic activity/Vol] 82 U/L 35-104 [facility] Serum or plasma alpha 1 glob ulin measurement by electrophoresis (mass/volume)Ordered By: Dax Álvarez on 03-20-2025 Alpha 1 globulin Elph [Mass/Vol] 0.3 g/dL 0.0-0.4 [facility] Alpha 1 globulin Elph [Mass/Vol] 0.8 g/dL 0.4-1.0 [facility] Serum or plasma beta globuli n measurement by electrophoresis (mass/volume)Ordered By: Dax Álvarez on 03-20-2025 Beta globulin Elph [Mass/Vol] 1.0 g/dL 0.7-1.3 [facility] Serum or plasma calcium rosalina urement (mass/volume)Ordered By: Dax Álvarez on 03-20-2025 Calcium [Mass/Vol] 9.5 mg/dL 7.6-11.0 [facility] Serum or plasma ferritin peyton surement (mass/volume)Ordered By: Dax Álvarez on 03-20-2025 Ferritin [Mass/Vol] 64 ng/mL 22-378 [facility] Serum or plasma gamma globul in measurement by electrophoresis (mass/volume)Ordered By: Dax Álvarez on 03-20-2025 Gamma globulin Elph [Mass/Vol] 0.6 g/dL 0.4-1.8 [facility] Serum or plasma immunoelectr ophoresis interpretation (nominal result)Ordered By: Dax Álvarez on 03-20-2025 Interpretation IEP [Interp] Comment: . [facility] Serum or plasma immunoglobul in kappa light chains measurement (mass/volume)Ordered By: Dax Álvarez on 03-20-2025 Immunoglobulin light chains.kappa [Mass/Vol] 29.1 mg/L High 3.3-19.4 [facility] Serum or plasma iron saturat ion measurement (mass fraction)Ordered By: Dax Álvarez on 03-20-2025 Iron saturation [Mass fraction] 8.0 % Low 13-59 [facility] Serum or plasma protein rosalina urement (mass/volume)Ordered By: Dax Álvarez on 03-20-2025 Protein [Mass/Vol] 6.7 g/dL 6.0-8.5 [facility] Serum or plasma urea nitroge n measurement (mass/volume)Ordered By: Dax Álvarez on 03-20-2025 Urea nitrogen [Mass/Vol] 21 mg/dL High 4-19 [facility] Sodium levelOrdered By: Zac Álvarez on 03-20-2025 Sodium [Moles/Vol] 141 mmol/L 133-145 [facility] Total proteinOrdered By: Camilo Álvarez on 03-20-2025 Protein [Mass/Vol] 6.9 g/dL 5.9-8.4 [facility] Vitamin B12on 03-20-2025 Cobalamin (Vitamin B12) [Mass/Vol] 269 pg/mL Normal 180-914 [facility] Comment on above: Performed By: #### L 503.6030, L503.0106, L503.6550, Z55664-4, L3100.1725, L3130.0010, L100.9950, L100.0100, L500.4050, L504.2610, L3100.1850, L3100.3425 ####[facility] [address] [place], [place], [address] Vitamin B12 ser/plasOrdered By: Dax Álvarez on 03-20-2025 Cobalamin (Vitamin B12) [Mass/Vol] 269 pg/mL 180-914 [facility] White blood cell (WBC) count Ordered By: Dax Álvarez on 03-20-2025 WBC (Bld) [#/Vol] 8.7 10*3/uL 4.4-11.0 [facility] ABORh Blood Type, Patienton 03-18-2025 ABO and Rh group Nom (Bld) Blood group A Rh(D) negative Normal [facility] Comment on above: Order Comment: CMV N EG? NNumber of units to transfuse: 1Reason for Ordering Blood: AcuteAre the blood/blood products to be transfused? YIs the patient having/had surgery? NWhen Kimi Performed By: #### B tABORH, BRC, BTS ####[facility] [address] [place], [place], [id number] Absolute lymphocyte countOrd ered By: Inderjit Gilmore on 03-18-2025 Lymphocytes Auto (Unsp spec) [#/Vol] 1.50 10*3/uL 0.83-4.51 [facility] Anion gap in Serum or Plasma Ordered By: Inderjit Gilmore on 03-18-2025 Anion gap [Moles/Vol] 12 mmol/L 5-15 [facility] Automated lymphocyte count a s percentage of total leukocytesOrdered By: Inderjit Gilmore on 03-18-2025 Lymphocytes/100 WBC Auto (Unsp spec) 18.4 % Low 19-41 [facility] BRCon 03-18-2025 RC Normal [facility] Comment on above: Result Comment: [id number] AN RC TRANSFUSED 03/18/25 0828 Performed By: #### B tABORH, BRC, BTS ####[facility] [address] [place], [address] BUN/creatinine ratioOrdered By: Inderjit Gilmore on 03-18-2025 Urea nitrogen/Creatinine [Mass ratio] 23.8 mg/mg High 10-20 [facility] Basic Metabolic Profile (BMP )on 03-18-2025 BUN/CRE 23.8 RATIO High 10-20 [facility] Comment on above: Performed By: #### L 500.2500, L500.3400, L100.0100, L501.2450 ####[facility] [address] [place], [address] Calcium [Mass/Vol] 9.4 mg/dL Normal 7.6-11.0 [facility] Comment on above: Performed By: #### L 500.2500, L500.3400, L100.0100, L501.2450 ####[facility] [address] [place], [address] Chloride [Moles/Vol] 107 mmol/L Normal 98-108 [facility] Comment on above: Performed By: #### L 500.2500, L500.3400, L100.0100, L501.2450 ####[facility] [address] [place], [address] CO2 [Moles/Vol] 21.2 mmol/L Normal 21.0-32.0 [facility] Comment on above: Performed By: #### L 500.2500, L500.3400, L100.0100, L501.2450 ####[facility] [address] [place], [address] Creatinine [Mass/Vol] 1.01 mg/dL Normal 0.70-1.20 [facility] Comment on above: Performed By: #### L 500.2500, L500.3400, L100.0100, L501.2450 ####[facility] [address] [place], [address] ECRCL 52.56 ml/min Normal 50-250 [facility] Comment on above: Performed By: #### L 500.2500, L500.3400, L100.0100, L501.2450 ####[facility] [address] [place], [address] GAP 12 Normal 5-15 [facility] Comment on above: Performed By: #### L 500.2500, L500.3400, L100.0100, L501.2450 ####[facility] [address] [place], [address] GFR/1.73 sq M.predicted among non-blacks MDRD (S/P/Bld) [Vol rate/Area] 61 mL/min/{1.73_m2} Normal >60 [facility] Comment on above: Result Comment: mL/m in/1.73m2 CKD-EPI Creatinine Equation (2020) Performed By: #### L 500.2500, L500.3400, L100.0100, L501.2450 ####[facility] [address] [place], [address] Glucose [Mass/Vol] 108 mg/dL High 70-99 [facility] Comment on above: Performed By: #### L 500.2500, L500.3400, L100.0100, L501.2450 ####[facility] [address] [place], [address] Potassium [Moles/Vol] 3.9 mmol/L Normal 3.3-5.1 [facility] Comment on above: Performed By: #### L 500.2500, L500.3400, L100.0100, L501.2450 ####[facility] [address] [place], [address] Sodium [Moles/Vol] 141 mmol/L Normal 133-145 [facility] Comment on above: Performed By: #### L 500.2500, L500.3400, L100.0100, L501.2450 ####[facility] [address] [place], [address] Urea nitrogen [Mass/Vol] 24 mg/dL High 4-19 [facility] Comment on above: Performed By: #### L 500.2500, L500.3400, L100.0100, L501.2450 ####[facility] [address] [place], [address] Basophil percentageOrdered B y: Inderjit Gilmore on 03-18-2025 Basophils/100 WBC (Bld) 1.2 % High 0-[address] [facility] Bilirubin directOrdered By: Inderjit Gilmore on 03-18-2025 Bilirubin.direct [Mass/Vol] 0.12 mg/dL 0.00-0.30 [facility] Bilirubin, totalOrdered By: Inderjit Gilmore on 03-18-2025 Bilirubin [Mass/Vol] 0.24 mg/dL 0.00-1.30 [facility] CBC W/Diff, Automatedon - Anisocytosis Ql (Bld) RARE Normal [facility] Comment on above: Performed By: #### L 500.2500, L500.3400, L100.0100, L501.2450 ####[facility] [address] [place], [address] Carbon dioxide, total [Moles /volume] in Central venous bloodOrdered By: Inderjit Gilmore on 03-18-2025 CO2 [Moles/Vol] 21.2 mmol/L 21.0-32.0 [facility] Chloride assayOrdered By: Huy Gilmore on 03-18-2025 Chloride [Moles/Vol] 107 mmol/L 98-108 [facility] Emergency Department Summary on 03-18-2025 Emergency Department Summary Normal [facility] Eosinophil percentageOrdered By: Inderjit Gilmore on 03-18-2025 Eosinophils/100 WBC (Bld) 3.2 % 0-5 [facility] Erythrocyte distribution wid th ratioOrdered By: Inderjit Gilmore on 03-18-2025 Erythrocyte distribution width (RBC) [Ratio] 18.1 % High 11.6-14.6 [facility] Erythrocyte distribution wid th standard deviationOrdered By: Inderjit Gilmore on 03-18-2025 Erythrocyte distribution width (RBC) [Ratio] 67.1 fl High 35.1-43.9 [facility] Glomerular filtration rate ( GFR) estimation/1.73 sq m using serum, plasma, or whole bOrdered By: Inderjit Gilmore on 03-18-2025 GFR/1.73 sq M.predicted among non-blacks MDRD (S/P/Bld) [Vol rate/Area] 61 mL/min/{1.73_m2} >60 [facility] Hematocrit Auto (Bld) [Volum e fraction]Ordered By: Inderjit Gilmore on 03-18-2025 Hematocrit (Bld) [Volume fraction] 23.4 % Low 37-47 [facility] Hemoglobin measurementOrdere d By: Inderjit Gilmore on 03-18-2025 Hemoglobin (Bld) [Mass/Vol] 7.0 g/dL Low 12.0-15.0 [facility] Immature granulocytes/100 WB C Auto (Bld)Ordered By: Inderjit Gilmore on 03-18-2025 Immature granulocytes/100 WBC (Bld) 0.500 % 0.0-0.9 [facility] Lipaseon 03-18-2025 Lipase [Catalytic activity/Vol] 49 U/L Normal 13-75 [facility] Comment on above: Result Comment: Ash white note:LIPASE revised reference range effective 23.New Lipase methodology. Expected to produce lower valuesthan the previous assay method.NEW Reference Range: 13 - 75 U/L Performed By: #### L 500.2500, L500.3400, L100.0100, L501.2450 ####[facility] [address] [place], [place], [address] Liver Profileon 03-18-2025 Albumin [Mass/Vol] 3.8 g/dL Normal 3.4-4.8 [facility] Comment on above: Performed By: #### L 500.2500, L500.3400, L100.0100, L501.2450 ####[facility] [address] [place], [address] ALK PHOS 62 U/L Normal 35-104 [facility] Comment on above: Performed By: #### L 500.2500, L500.3400, L100.0100, L501.2450 ####[facility] [address] [place], [address] ALT [Catalytic activity/Vol] 15 U/L Normal <=34 [facility] Comment on above: Performed By: #### L 500.2500, L500.3400, L100.0100, L501.2450 ####[facility] [address] [place], [address] AST [Catalytic activity/Vol] 11 U/L Normal <=31 [facility] Comment on above: Performed By: #### L 500.2500, L500.3400, L100.0100, L501.2450 ####[facility] [address] [place], [address] Bilirubin [Mass/Vol] 0.24 mg/dL Normal 0.00-1.30 [facility] Comment on above: Performed By: #### L 500.2500, L500.3400, L100.0100, L501.2450 ####[facility] [address] [place], [address] Bilirubin.direct [Mass/Vol] 0.12 mg/dL Normal 0.00-0.30 [facility] Comment on above: Performed By: #### L 500.2500, L500.3400, L100.0100, L501.2450 ####[facility] [address] [place], [address] Globulin (S) [Mass/Vol] 2.3 g/dL Normal 2.2-4.2 [facility] Comment on above: Performed By: #### L 500.2500, L500.3400, L100.0100, L501.2450 ####[facility] [address] [place], [address] T PROT 6.1 g/dL Normal 5.9-8.4 [facility] Comment on above: Performed By: #### L 500.2500, L500.3400, L100.0100, L501.2450 ####[facility] [address] [place], [address] MCV (mean corpuscular volume ) determinationOrdered By: Inderjit Gilmore on 03-18-2025 MCV (RBC) [Entitic vol] 102.2 fL High 81-[address] [facility] Mean corpuscular hemoglobin (MCH) determinationOrdered By: Inderjit Gilmore on 03-18-2025 MCH (RBC) [Entitic mass] 30.6 pg 27.0-32.0 [facility] Monocyte percentageOrdered B y: Inderjit Gilmore on 03-18-2025 Monocytes/100 WBC (Bld) 6.1 % 0-[address] [facility] Neutrophil percentageOrdered By: Inderjit Gilmore on 03-18-2025 Neutrophils/100 WBC (Bld) 70.6 % High 47-70 [facility] No Panel InformationOrdered By: Inderjit Gilmore on 03-18-2025 RARE [facility] 11 U/L <32 [facility] Platelet countOrdered By: Huy Gilmore on 03-18-2025 Platelets (Bld) [#/Vol] 234 10*3/uL 150-450 [facility] Potassium measurement (mass/ volume)Ordered By: Inderjit Gilmore on 03-18-2025 Potassium (Unsp spec) [Mass/Vol] 3.9 mmol/L 3.3-5.1 [facility] RBC Auto (Bld) [#/Vol]Ordere d By: Inderjit Gilmore on 03-18-2025 RBC (Bld) [#/Vol] 2.29 10*6/uL Low 4.2-5.4 [facility] Serum creatinine measurement (mass/volume)Ordered By: Inderjit Gilmore on 03-18-2025 Creatinine [Mass/Vol] 1.01 mg/dL 0.70-1.20 [facility] Serum globulin measurementOr dered By: Inderjit Gilmore on 03-18-2025 Globulin (S) [Mass/Vol] 2.3 g/dL 2.2-4.[address] [facility] Serum glucose measurement (m ass/volume)Ordered By: Inderjit Gilmore on 03-18-2025 Glucose [Mass/Vol] 108 mg/dL High 70-99 [facility] Serum or plasma alanine tovar otransferase (ALT) measurementOrdered By: Inderjit Gilmore on 03-18-2025 ALT [Catalytic activity/Vol] 15 U/L <35 [facility] Serum or plasma albumin rosalina urement (mass/volume)Ordered By: Inderjit Gilmore on 03-18-2025 Albumin [Mass/Vol] 3.8 g/dL 3.4-4.8 [facility] Serum or plasma alkaline blanche sphatase measurementOrdered By: Inderjit Gilmore on 03-18-2025 ALP [Catalytic activity/Vol] 62 U/L 35-104 [facility] Serum or plasma calcium rosalina urement (mass/volume)Ordered By: Inderjit Gilmore on 03-18-2025 Calcium [Mass/Vol] 9.4 mg/dL 7.6-11.0 [facility] Serum or plasma urea nitroge n measurement (mass/volume)Ordered By: Inderjit Gilmore on 03-18-2025 Urea nitrogen [Mass/Vol] 24 mg/dL High 4-19 [facility] Sodium levelOrdered By: Marcin Gilmore on 03-18-2025 Sodium [Moles/Vol] 141 mmol/L 133-145 [facility] Total proteinOrdered By: Wallace Gilmore on 03-18-2025 Protein [Mass/Vol] 6.1 g/dL 5.9-8.4 [facility] Type AND Screenon 03-18-2025 Ab SCREEN GEL Negative Normal [facility] Comment on above: Order Comment: CMV N EG? NNumber of units to transfuse: 1Reason for Ordering Blood: AcuteAre the blood/blood products to be transfused? YIs the patient having/had surgery? Shiloh Bolden Performed By: #### B JACKIE Keene, BTS ####[facility] [address] [place], [place], [address] ABO and Rh group Nom (Bld) PENDING Normal [facility] Comment on above: Order Comment: CMV N EG? NNumber of units to transfuse: 1Reason for Ordering Blood: AcuteAre the blood/blood products to be transfused? YIs the patient having/had surgery? Shiloh SchmittNY Performed By: #### B Jassi, JACKIE, BTS ####[facility] [address] [place], [place], [id number] White blood cell (WBC) count Ordered By: Inderjit Gilmore on 03-18-2025 WBC (Bld) [#/Vol] 8.2 10*3/uL 4.4-11.0 [facility] Absolute lymphocyte countOrd ered By: Ivan Cotto on 03-11-2025 Lymphocytes Auto (Unsp spec) [#/Vol] 1.54 10*3/uL 0.83-4.51 [facility] Automated lymphocyte count a s percentage of total leukocytesOrdered By: Ivan Cotto on 03-11-2025 Lymphocytes/100 WBC Auto (Unsp spec) 17.0 % Low 19-41 [facility] Basophil percentageOrdered B y: Ivan Cotto on 03-11-2025 Basophils/100 WBC (Bld) 1.4 % High 0-[address] [facility] CBC W/Diff, Automatedon 02-21 Absolute Lymph 1.54 X10 3/uL Normal 0.83-4.51 [facility] Comment on above: Performed By: #### L 100.0100 ####[facility] [address] [place], [address] Absolute Neut 6.7 X10 3/uL Normal 2.0-7.7 [facility] Comment on above: Performed By: #### L 100.0100 ####[facility] [address] [place], [address] Basophils/100 WBC (Bld) 1.4 % High 0-[address] [facility] Comment on above: Performed By: #### L 100.0100 ####[facility] [address] [place], [address] Eosinophils/100 WBC (Bld) 2.2 % Normal 0-5 [facility] Comment on above: Performed By: #### L 100.0100 ####[facility] [address] [place], [address] Erythrocyte distribution width (RBC) [Ratio] 19.7 % High 11.6-14.6 [facility] Comment on above: Performed By: #### L 100.0100 ####[facility] [address] [place], [address] Hematocrit (Bld) [Volume fraction] 25.5 % Low 37-47 [facility] Comment on above: Performed By: #### L 100.0100 ####[facility] [address] [place], [address] Hemoglobin (Bld) [Mass/Vol] 7.9 g/dL Low 12.0-15.0 [facility] Comment on above: Performed By: #### L 100.0100 ####[facility] [address] [place], [address] IG% 0.400 Normal 0.0-0.9 [facility] Comment on above: Result Comment: IG% - Immature Granulocytes (promyelocytes, myelocytes andmetamyelocytes) > 1% indicates that a LEFT SHIFT is Present. Performed By: #### L 100.0100 ####[facility] [address] [place], [address] Lymphocytes/100 WBC (Bld) 17.0 % Low 19-41 [facility] Comment on above: Performed By: #### L 100.0100 ####[facility] [address] [place], [address] MCH (RBC) [Entitic mass] 32.4 pg High 27.0-32.0 [facility] Comment on above: Performed By: #### L 100.0100 ####[facility] [address] [place], [address] MCHC (RBC) [Mass/Vol] 31.0 g/dL Low 32-36 [facility] Comment on above: Performed By: #### L 100.0100 ####[facility] [address] [place], [address] MCV (RBC) [Entitic vol] 104.5 fL High 81-[address] [facility] Comment on above: Performed By: #### L 100.0100 ####[facility] [address] [place], [address] Monocytes/100 WBC (Bld) 5.0 % Normal 0-10 [facility] Comment on above: Performed By: #### L 100.0100 ####[facility] [address] [place], [address] Neutrophils/100 WBC (Bld) 74.0 % High 47-70 [facility] Comment on above: Performed By: #### L 100.0100 ####[facility] [address] [place], [address] Nucleated RBC (Bld) [#/Vol] 0 10*3/uL Normal 0-5 [facility] Comment on above: Performed By: #### L 100.0100 ####[facility] [address] [place], [address] Platelet mean volume (Bld) [Entitic vol] 10.2 fL Normal 6.2-12.0 [facility] Comment on above: Performed By: #### L 100.0100 ####[facility] [address] [place], [address] Platelets (Bld) [#/Vol] 261 10*3/uL Normal 150-450 [facility] Comment on above: Performed By: #### L 100.0100 ####[facility] [address] [place], [address] RBC (Bld) [#/Vol] 2.44 10*6/uL Low 4.2-5.4 [facility] Comment on above: Performed By: #### L 100.0100 ####[facility] [address] [place], [address] RDW SD 75.9 fl High 35.1-43.9 [facility] Comment on above: Performed By: #### L 100.0100 ####[facility] [address] [place], [address] WBC (Bld) [#/Vol] 9.1 10*3/uL Normal 4.4-11.0 [facility] Comment on above: Performed By: #### L 100.0100 ####[facility] [address] [place], [address] Celiac Disease Profileon ENDOMYSIAL IGA Negative Normal Negative [facility] Comment on above: Performed By: #### L 3400.3800, L500.2500, L3410.2400, L100.0100 ####[facility] [address] [place], [address] IMMUNOGLOB A QN 180 mg/dL Normal 87-352 [facility] Comment on above: Performed By: #### L 3400.3800, L500.2500, L3410.2400, L100.0100 ####[facility] [address] [place], [address] tTG IGA <2 Normal 0-3 [facility] Comment on above: Result Comment: Nega tive 0 - 3 Weak Positive 4 - 10 Positive >10 Tissue Transglutaminase (tTG) has been identified as the endomysial antigen. Studies have demonstr- ated that endomysial IgA antibodies have over 99% specificity for gluten sensitive enteropathy. Performed By: #### L 3400.3800, L500.2500, L3410.2400, L100.0100 ####[facility] [address] [place], [address] Eosinophil percentageOrdered By: Ivanalexandra Cotto on 03-11-2025 Eosinophils/100 WBC (Bld) 2.2 % 0-5 [facility] Erythrocyte distribution wid th ratioOrdered By: Ivanalexandra Cotto on 03-11-2025 Erythrocyte distribution width (RBC) [Ratio] 19.7 % High 11.6-14.6 [facility] Erythrocyte distribution wid th standard deviationOrdered By: Ivanalexandra Cotto on 03-11-2025 Erythrocyte distribution width (RBC) [Ratio] 75.9 fl High 35.1-43.9 [facility] Hematocrit Auto (Bld) [Volum e fraction]Ordered By: Ivanalexandra Cotto on 03-11-2025 Hematocrit (Bld) [Volume fraction] 25.5 % Low 37-47 [facility] Hemoglobin measurementOrdere d By: Ivanalexandra Cotto on 03-11-2025 Hemoglobin (Bld) [Mass/Vol] 7.9 g/dL Low 12.0-15.0 [facility] Immature granulocytes/100 WB C Auto (Bld)Ordered By: Ivanalexandra Cotto on 03-11-2025 Immature granulocytes/100 WBC (Bld) 0.400 % 0.0-0.9 [facility] MCV (mean corpuscular volume ) determinationOrdered By: Ivan Cotto on 03-11-2025 MCV (RBC) [Entitic vol] 104.5 fL High 81-[address] [facility] Mean corpuscular hemoglobin (MCH) determinationOrdered By: Ivanchani Cotto on 03-11-2025 MCH (RBC) [Entitic mass] 32.4 pg High 27.0-32.0 [facility] Monocyte percentageOrdered B y: Ivan Cotto on 03-11-2025 Monocytes/100 WBC (Bld) 5.0 % 0-[address] [facility] Neutrophil percentageOrdered By: Ivanchani Cotto on 03-11-2025 Neutrophils/100 WBC (Bld) 74.0 % High 47-70 [facility] No Panel InformationOrdered By: Ivanalexandra Cotto on 03-11-2025 2+ [facility] Platelet countOrdered By: Ra lynnsabas Lino on 03-11-2025 Platelets (Bld) [#/Vol] 261 10*3/uL 150-450 [facility] RBC Auto (Bld) [#/Vol]Ordere d By: Ivan Lino on 03-11-2025 RBC (Bld) [#/Vol] 2.44 10*6/uL Low 4.2-5.4 [facility] Transferrinon 03-11-2025 Transferrin [Mass/Vol] 261 mg/dL Normal 192-364 [facility] Comment on above: Result Comment: Perf ormed at: CB - [facility] [place] [id number] Director: Darren Cr PhD, Phone: [phone] Performed By: #### L 3400.3800, L500.2500, L3410.2400, L100.0100 ####[facility] [address] [place], [address] White blood cell (WBC) count Ordered By: Ivan Cotto on 03-11-2025 WBC (Bld) [#/Vol] 9.1 10*3/uL 4.4-11.0 [facility] Absolute lymphocyte countOrd ered By: Ivanchani Cotto on 03-08-2025 Lymphocytes Auto (Unsp spec) [#/Vol] 1.33 10*3/uL 0.83-4.51 [facility] Anion gap in Serum or Plasma Ordered By: Ivan Cotto on 03-08-2025 Anion gap [Moles/Vol] 12 mmol/L 5-15 [facility] Automated lymphocyte count a s percentage of total leukocytesOrdered By: Ivan Cotto on 03-08-2025 Lymphocytes/100 WBC Auto (Unsp spec) 13.0 % Low 19-41 [facility] BUN/creatinine ratioOrdered By: Ivan Cotto on 03-08-2025 Urea nitrogen/Creatinine [Mass ratio] 15.7 mg/mg 10- [facility] Basic Metabolic Profile (BMP )on 03-08-2025 BUN/CRE 15.7 RATIO Normal - [facility] Comment on above: Performed By: #### L 3400.3800, L500.2500, L3410.2400, L100.0100 ####[facility] [address] [place], [address] Calcium [Mass/Vol] 9.4 mg/dL Normal 7.6-11.0 [facility] Comment on above: Performed By: #### L 3400.3800, L500.2500, L3410.2400, L100.0100 ####[facility] [address] [place], [address] Chloride [Moles/Vol] 106 mmol/L Normal 98-108 [facility] Comment on above: Performed By: #### L 3400.3800, L500.2500, L3410.2400, L100.0100 ####[facility] [address] [place], [address] CO2 [Moles/Vol] 20.5 mmol/L Low 21.0-32.0 [facility] Comment on above: Performed By: #### L 3400.3800, L500.2500, L3410.2400, L100.0100 ####[facility] [address] [place], [address] Creatinine [Mass/Vol] 1.04 mg/dL Normal 0.70-1.20 [facility] Comment on above: Performed By: #### L 3400.3800, L500.2500, L3410.2400, L100.0100 ####[facility] [address] [place], [address] GAP 12 Normal 5-15 [facility] Comment on above: Performed By: #### L 3400.3800, L500.2500, L3410.2400, L100.0100 ####[facility] [address] [place], [address] GFR/1.73 sq M.predicted among non-blacks MDRD (S/P/Bld) [Vol rate/Area] 59 mL/min/{1.73_m2} Low >60 [facility] Comment on above: Result Comment: mL/m in/1.73m2 CKD-EPI Creatinine Equation (2020) Performed By: #### L 3400.3800, L500.2500, L3410.2400, L100.0100 ####[facility] [address] [place], [address] Glucose [Mass/Vol] 98 mg/dL Normal 70-99 [facility] Comment on above: Performed By: #### L 3400.3800, L500.2500, L3410.2400, L100.0100 ####[facility] [address] [place], [address] Potassium [Moles/Vol] 4.0 mmol/L Normal 3.3-5.1 [facility] Comment on above: Performed By: #### L 3400.3800, L500.2500, L3410.2400, L100.0100 ####[facility] [address] [place], [address] Sodium [Moles/Vol] 138 mmol/L Normal 133-145 [facility] Comment on above: Performed By: #### L 3400.3800, L500.2500, L3410.2400, L100.0100 ####[facility] [address] [place], [address] Urea nitrogen [Mass/Vol] 16 mg/dL Normal 4-19 [facility] Comment on above: Performed By: #### L 3400.3800, L500.2500, L3410.2400, L100.0100 ####[facility] [address] [place], [address] Basophil percentageOrdered B y: Ivan Cotto on 03-08-2025 Basophils/100 WBC (Bld) 1.1 % High 0-[address] [facility] CBC W/Diff, Automatedon 05- Anisocytosis Ql (Bld) 2+ Normal [facility] Comment on above: Performed By: #### L 3400.3800, L500.2500, L3410.2400, L100.0100 ####[facility] [address] [place], [address] Carbon dioxide, total [Moles /volume] in Central venous bloodOrdered By: Ivan Cotto on 03-08-2025 CO2 [Moles/Vol] 20.5 mmol/L Low 21.0-32.0 [facility] Chloride assayOrdered By: Ra tamiko Cotto on 03-08-2025 Chloride [Moles/Vol] 106 mmol/L 98-108 [facility] Eosinophil percentageOrdered By: Ivan Cotto on 03-08-2025 Eosinophils/100 WBC (Bld) 1.5 % 0-5 [facility] Erythrocyte distribution wid th ratioOrdered By: Ivan Cotto on 03-08-2025 Erythrocyte distribution width (RBC) [Ratio] 20.6 % High 11.6-14.6 [facility] Erythrocyte distribution wid th standard deviationOrdered By: Ivan Cotto on 03-08-2025 Erythrocyte distribution width (RBC) [Ratio] 77.1 fl High 35.1-43.9 [facility] Glomerular filtration rate ( GFR) estimation/1.73 sq m using serum, plasma, or whole bOrdered By: Ivan Cotto on 03-08-2025 GFR/1.73 sq M.predicted among non-blacks MDRD (S/P/Bld) [Vol rate/Area] 59 mL/min/{1.73_m2} Low >60 [facility] Hematocrit Auto (Bld) [Volum e fraction]Ordered By: Ivan Cotto on 03-08-2025 Hematocrit (Bld) [Volume fraction] 26.1 % Low 37-47 [facility] Hemoglobin measurementOrdere d By: Ivan Cotto on 03-08-2025 Hemoglobin (Bld) [Mass/Vol] 8.0 g/dL Low 12.0-15.0 [facility] Immature granulocytes/100 WB C Auto (Bld)Ordered By: Ivan Cotto on 03-08-2025 Immature granulocytes/100 WBC (Bld) 0.400 % 0.0-0.9 [facility] MCV (mean corpuscular volume ) determinationOrdered By: Ivan Cotto on 03-08-2025 MCV (RBC) [Entitic vol] 102.8 fL High 81-[address] [facility] Mean corpuscular hemoglobin (MCH) determinationOrdered By: Ivan Cotto on 03-08-2025 MCH (RBC) [Entitic mass] 31.5 pg 27.0-32.0 [facility] Monocyte percentageOrdered B y: Ivan Cotto on 03-08-2025 Monocytes/100 WBC (Bld) 5.0 % 0-[address] [facility] Neutrophil percentageOrdered By: Ivan Cotto on 03-08-2025 Neutrophils/100 WBC (Bld) 79.0 % High 47-70 [facility] No Panel InformationOrdered By: Ivan Cotto on 03-08-2025 2+ [facility] Office Visit Reporton 2024 Office Visit Report Normal [facility] Platelet countOrdered By: Ra tamiko Cotto on 03-08-2025 Platelets (Bld) [#/Vol] 227 10*3/uL 150-450 [facility] Potassium measurement (mass/ volume)Ordered By: Ivan Cotto on 03-08-2025 Potassium (Unsp spec) [Mass/Vol] 4.0 mmol/L 3.3-5.1 [facility] RBC Auto (Bld) [#/Vol]Ordere d By: Ivan Cotto on 03-08-2025 RBC (Bld) [#/Vol] 2.54 10*6/uL Low 4.2-5.4 [facility] Serum creatinine measurement (mass/volume)Ordered By: Ivan Cotto on 03-08-2025 Creatinine [Mass/Vol] 1.04 mg/dL 0.70-1.20 [facility] Serum glucose measurement (m ass/volume)Ordered By: Ivan Cotto on 03-08-2025 Glucose [Mass/Vol] 98 mg/dL 70-99 [facility] Serum or plasma IgA measurem ent (mass/volume)Ordered By: Ivan Cotto on 03-08-2025 IgA [Mass/Vol] 180 mg/dL 87-352 [facility] Serum or plasma calcium rosalina urement (mass/volume)Ordered By: Ivan Cotto on 03-08-2025 Calcium [Mass/Vol] 9.4 mg/dL 7.6-11.0 [facility] Serum or plasma urea nitroge n measurement (mass/volume)Ordered By: Ivan Cotto on 03-08-2025 Urea nitrogen [Mass/Vol] 16 mg/dL 4-19 [facility] Serum tissue transglutaminas e (tTG) IgA antibody assay (units/volume)Ordered By: Ivan Cotto on 03-08-2025 tTG IgA Qn (S) <2 U/mL 0-3 [facility] Sodium levelOrdered By: Kwame Flores on 03-08-2025 Sodium [Moles/Vol] 138 mmol/L 133-145 [facility] TransferrinOrdered By: Alem obregon Friend on 03-08-2025 Transferrin [Mass/Vol] 261 mg/dL 192-364 [facility] White blood cell (WBC) count Ordered By: Ivan Cotto on 03-08-2025 WBC (Bld) [#/Vol] 10.2 10*3/uL 4.4-11.0 [facility] .Auto Diffon 03-07-2025 Basophil, Absolute 0.1 10 3/mcL Normal 0.0-0.3 [facility] Comment on above: Performed By: #### M ORPH, ANEU, ADIFF, CBC #### [address] [address] Basophils/100 WBC (Bld) 1.3 % Normal 0.0-2.5 [facility] Comment on above: Performed By: #### M ORPH, ANEU, ADIFF, CBC #### [address] [address] Eosinophil, Absolute 0.3 10 3/mcL Normal 0.0-0.7 [facility] Comment on above: Performed By: #### M ORPH, ANEU, ADIFF, CBC #### [address] [address] Eosinophils/100 WBC (Bld) 2.7 % Normal 0.0-6.0 [facility] Comment on above: Performed By: #### M ORPH, ANEU, ADIFF, CBC #### [address] [address] Lymphocyte, Absolute 1.8 10 3/mcL Normal 0.9-4.3 [facility] Comment on above: Performed By: #### M ORPH, ANEU, ADIFF, CBC #### [address] [address] Lymphocytes/100 WBC (Bld) 17.4 % Low 20.0-40.0 [facility] Comment on above: Performed By: #### M ORPH, ANEU, ADIFF, CBC #### [address] [address] Monocyte, Absolute 0.6 10 3/mcL Normal 0.1-1.4 [facility] Comment on above: Performed By: #### M ORPH, ANEU, ADIFF, CBC #### [address] [address] Monocytes/100 WBC (Bld) 5.7 % Normal 2.0-13.0 [facility] Comment on above: Performed By: #### M ORPH, ANEU, ADIFF, CBC #### [address] [address] Neutrophils/100 WBC (Bld) 72.9 % Normal 50.0-75.0 [facility] Comment on above: Performed By: #### M ORPH ANEU, ADIFF, CBC #### [place] [address] .NEUABSon 03-07-2025 Neutrophil, Absolute 7.5 10 3/mcL Normal 2.3-8.1 [facility] Comment on above: Performed By: #### M ORPH, ANEU, ADIFF, CBC #### [place] [address] CBCon 03-07-2025 Erythrocyte distribution width (RBC) [Ratio] 21.6 % High 11.5-15.5 [facility] Comment on above: Performed By: #### M ORPH ANEU, ADIFF, CBC #### [place] [address] Hematocrit (Bld) [Volume fraction] 25.0 % Low 34.0-46.0 [facility] Comment on above: Performed By: #### M ORPH, ANEU, ADIFF, CBC #### [place] [address] Hgb 8.1 G/dL Low 12.0-16.0 [facility] Comment on above: Performed By: #### M ORPH, ANEU, ADIFF, CBC #### [place] [address] MCH (RBC) [Entitic mass] 31.4 pg Normal 27.0-33.0 [facility] Comment on above: Performed By: #### M ORPH, ANEU, ADIFF, CBC #### [place] [address] MCHC 32.4 G/dL Normal 32.0-36.0 [facility] Comment on above: Performed By: #### M ORPH, ANEU, ADIFF, CBC #### [place] [address] MCV (RBC) [Entitic vol] 97.1 fL Normal 80.0-99.0 [facility] Comment on above: Performed By: #### M ORSHAKIR ANEU, ADIFF, CBC #### [address] [address] Platelet 202 10 3/mcL Normal 150-450 [facility] Comment on above: Performed By: #### M ORSHAKIR ANEU, ADIFF, CBC #### [address] [address] Platelet mean volume (Bld) [Entitic vol] 8.5 fL Normal 6.6-10.5 [facility] Comment on above: Performed By: #### M ORSHAKIR ANEU, ADIFF, CBC #### [address] [address] RBC 2.57 10 6/mcL Low 4.10-5.30 [facility] Comment on above: Performed By: #### M ORSHAKIR ANEU, ADIFF, CBC #### [address] [address] WBC 10.3 10 3/mcL Normal 4.5-10.8 [facility] Comment on above: Performed By: #### M ORSHAKIR ANEU, ADIFF, CBC #### [address] [address] Curry 03-07-2025 Ferritin [Mass/Vol] 196.0 ng/mL Normal 8.0-252.0 [facility] Comment on above: Performed By: #### M ORSHAKIR ANEU, ADIFF, CBC #### [address] [address] FESon 03-07-2025 Iron [Mass/Vol] 52 ug/dL Normal 50-170 [facility] Comment on above: Performed By: #### M ORSHAKIR ANEU, ADIFF, CBC #### [address] [address] Iron Sat 16 % Normal [facility] Comment on above: Performed By: #### M ORPH ANEU, ADIFF, CBC #### [place] [address] [place], [place] [address] TIBC 316 mcg/dL Normal 250-450 [facility] Comment on above: Performed By: #### M KELIN CARMICHAEL ADIFF, CBC #### [place] [address] [place], [place] [address] LABORATORYOrdered By: SYSTEM SYSTEM on 03-07-2025 Basophils (Bld) [#/Vol] 0.1 103/mcL Normal 0.0 - 0.3 10^3/mcL AO Workflow SS Basophils/100 WBC (Bld) 1.3 % Normal 0.0 - 2.5 % AO Workflow SS Eosinophil, Absolute 0.3 103/mcL Normal 0.0 - 0 .7 10^3/mcL AO Workflow SS Eosinophils/100 WBC (Bld) 2.7 % Normal 0.0 - 6.0 % AO Workflow SS Erythrocyte distribution width (RBC) [Ratio] 21.6 % High 11.5 - 15.5 % AO Workflow SS Ferritin [Mass/Vol] 196.0 ng/mL Normal 8.0 - 25 2.0 ng/mL AO ADM SS Hematocrit (Bld) [Volume fraction] 25.0 % Low 34.0 - 46.0 % AO Workflow SS Hemoglobin (Bld) [Mass/Vol] 8.1 G/dL Low 12.0 - 16.0 G/dL AO Workflow SS Iron [Mass/Vol] 52 ug/dL Normal 50 - 170 mcg/dL AO ADM SS Iron binding capacity [Mass/Vol] 316 mcg/dL Normal 250 - 450 mcg/dL AO ADM SS Iron Sat 16 % Invalid Interpretation Code AO ADM SS Lymphocytes (Bld) [#/Vol] 1.8 103/mcL Normal 0.9 - 4.3 10^3/mcL AO Workflow SS Lymphocytes/100 WBC (Bld) 17.4 % Low 20.0 - 40.0 % AO Workflow SS MCH (RBC) [Entitic mass] 31.4 pg Normal 27. 0 - 33.0 pg AO Workflow SS MCHC 32.4 G/dL Normal 32.0 - 36.0 G/dL AO Workflow SS MCV (RBC) [Entitic vol] 97.1 fL Normal 80.0 - 99.0 fL AO Workflow SS Monocytes (Bld) [#/Vol] 0.6 103/mcL Normal 0.1 - 1.4 10^3/mcL AO Workflow SS Monocytes/100 WBC (Bld) 5.7 % Normal 2.0 - 13.0 % AO Workflow SS Neutrophils (Bld) [#/Vol] 7.5 103/mcL Normal 2.3 - 8.1 10^3/mcL AO Workflow SS Neutrophils/100 WBC (Bld) 72.9 % Normal 50.0 - 75.0 % AO Workflow SS Platelet mean volume (Bld) [Entitic vol] 8.5 fL Normal 6.6 - 10.5 fL AO Workflow SS Platelets (Bld) [#/Vol] 202 103/mcL Normal 150 - 450 10^3/mcL AO Workflow SS RBC (Bld) [#/Vol] 2.57 106/mcL Low 4.10 - 5.3 0 10^6/mcL AO Workflow SS WBC (Bld) [#/Vol] 10.3 103/mcL Normal 4.5 - 10.8 10^3/mcL AO Workflow SS Basic Metabolic Profile (BMP )on 03-05-2025 BUN Normal 4-19 [facility] Comment on above: Result Comment: Canc elled via OM: Order cancelled - Patient discharged Performed By: #### L 100.0100, L500.2500 ####[facility] [address] [place], [address] BUN/CRE Normal 10-20 [facility] Comment on above: Result Comment: Canc elled via OM: Order cancelled - Patient discharged Performed By: #### L 100.0100, L500.2500 ####[facility] [address] [place], [address] Calcium Normal 7.6-11.0 [facility] Comment on above: Result Comment: Canc elled via OM: Order cancelled - Patient discharged Performed By: #### L 100.0100, L500.2500 ####[facility] [address] [place], [address] CL Normal 98-108 [facility] Comment on above: Result Comment: Canc elled via OM: Order cancelled - Patient discharged Performed By: #### L 100.0100, L500.2500 ####[facility] [address] [place], [address] CO2 Normal 21.0-32.0 [facility] Comment on above: Result Comment: Canc elled via OM: Order cancelled - Patient discharged Performed By: #### L 100.0100, L500.2500 ####[facility] [address] [place], [address] CREAT,SERUM Normal 0.70-1.20 [facility] Comment on above: Result Comment: Canc elled via OM: Order cancelled - Patient discharged Performed By: #### L 100.0100, L500.2500 ####[facility] [address] [place], [address] eGFR Normal >60 [facility] Comment on above: Result Comment: Canc elled via OM: Order cancelled - Patient discharged Performed By: #### L 100.0100, L500.2500 ####[facility] [address] [place], [address] GAP Normal 5-15 [facility] Comment on above: Result Comment: Canc elled via OM: Order cancelled - Patient discharged Performed By: #### L 100.0100, L500.2500 ####[facility] [address] [place], [address] GLU Normal 70-99 [facility] Comment on above: Result Comment: Canc elled via OM: Order cancelled - Patient discharged Performed By: #### L 100.0100, L500.2500 ####[facility] [address] [place], [address] Potassium Normal 3.3-5.1 [facility] Comment on above: Result Comment: Canc elled via OM: Order cancelled - Patient discharged Performed By: #### L 100.0100, L500.2500 ####[facility] [address], [address] Basic Metabolic Profile (BMP) Normal 133-145 [facility] Comment on above: Result Comment: Canc elled via OM: Order cancelled - Patient discharged Performed By: #### L 100.0100, L500.2500 ####[facility] [address] [place], [address] CBC W/Diff, Automatedon 05-1 Absolute Neut Normal 2.0-7.7 [facility] Comment on above: Result Comment: Canc elled via OM: Order cancelled - Patient discharged Performed By: #### L 100.0100, L500.2500 ####[facility] [address], [address] HCT Normal 37-47 [facility] Comment on above: Result Comment: Canc elled via OM: Order cancelled - Patient discharged Performed By: #### L 100.0100, L500.2500 ####[facility] [address] [place], [address] HGB Normal 12.0-15.0 [facility] Comment on above: Result Comment: Canc elled via OM: Order cancelled - Patient discharged Performed By: #### L 100.0100, L500.2500 ####[facility] [address] [place], [address] MCH Normal 27.0-32.0 [facility] Comment on above: Result Comment: Canc elled via OM: Order cancelled - Patient discharged Performed By: #### L 100.0100, L500.2500 ####[facility] [address] [place], [address] MCHC Normal 32-36 [facility] Comment on above: Result Comment: Canc elled via OM: Order cancelled - Patient discharged Performed By: #### L 100.0100, L500.2500 ####[facility] [address], [address] MCV Normal 81-99 [facility] Comment on above: Result Comment: Canc elled via OM: Order cancelled - Patient discharged Performed By: #### L 100.0100, L500.2500 ####[facility] [address] [place], [address] NEUT% Normal 47-70 [facility] Comment on above: Result Comment: Canc elled via OM: Order cancelled - Patient discharged Performed By: #### L 100.0100, L500.2500 ####[facility] [address] [place], [address] PLT Normal 150-450 [facility] Comment on above: Result Comment: Canc elled via OM: Order cancelled - Patient discharged Performed By: #### L 100.0100, L500.2500 ####[facility] [address] [place], [address] RBC Normal 4.2-5.4 [facility] Comment on above: Result Comment: Canc elled via OM: Order cancelled - Patient discharged Performed By: #### L 100.0100, L500.2500 ####[facility] [address] [place], [address] RDW CV Normal 11.6-14.6 [facility] Comment on above: Result Comment: Canc elled via OM: Order cancelled - Patient discharged Performed By: #### L 100.0100, L500.2500 ####[facility] [address] [place], [address] RDW SD Normal 35.1-43.9 [facility] Comment on above: Result Comment: Canc elled via OM: Order cancelled - Patient discharged Performed By: #### L 100.0100, L500.2500 ####[facility] [address], [address] WBC Normal 4.4-11.0 [facility] Comment on above: Result Comment: Canc elled via OM: Order cancelled - Patient discharged Performed By: #### L 100.0100, L500.2500 ####[facility] [address] [place], [address] Celiac AB,Comprehensiveon ANTIGLIADIN IGA Normal [facility] Comment on above: Result Comment: PT D ISCHARGED BEFORE DRAWING. NO TUBES TO ADD ON TO Performed By: #### L 3410.2350, L503.6550, L503.6030, L100.9950 ####[facility] [address] [place], [address] ANTIGLIADIN IGG Normal [facility] Comment on above: Result Comment: PT D ISCHARGED BEFORE DRAWING. NO TUBES TO ADD ON TO Performed By: #### L 3410.2350, L503.6550, L503.6030, L100.9950 ####[facility] [address] [place], [address] IMMUNOGLOB A QN Normal [facility] Comment on above: Result Comment: PT D ISCHARGED BEFORE DRAWING. NO TUBES TO ADD ON TO Performed By: #### L 3410.2350, L503.6550, L503.6030, L100.9950 ####[facility] [address] [place], [address] tTG IGA Normal [facility] Comment on above: Result Comment: PT D ISCHARGED BEFORE DRAWING. NO TUBES TO ADD ON TO Performed By: #### L 3410.2350, L503.6550, L503.6030, L100.9950 ####[facility] [address] [place], [address] Absolute lymphocyte countOrd ered By: Clyde Long on 03-04-2025 Lymphocytes Auto (Unsp spec) [#/Vol] 1.27 10*3/uL 0.83-4.51 [facility] Anion gap in Serum or Plasma Ordered By: Clyde Long on 03-04-2025 Anion gap [Moles/Vol] 11 mmol/L 5-15 [facility] Automated lymphocyte count a s percentage of total leukocytesOrdered By: Clyde Long on 03-04-2025 Lymphocytes/100 WBC Auto (Unsp spec) 13.0 % Low 19-41 [facility] BUN/creatinine ratioOrdered By: Clyde Long on 03-04-2025 Urea nitrogen/Creatinine [Mass ratio] 15.9 mg/mg 10- [facility] Basic Metabolic Profile (BMP )on 03-04-2025 BUN/CRE 15.9 RATIO Normal - [facility] Comment on above: Performed By: #### L 100.0100, L500.2500 ####[facility] [address] [place], [address] Calcium [Mass/Vol] 9.0 mg/dL Normal 7.6-11.0 [facility] Comment on above: Performed By: #### L 100.0100, L500.2500 ####[facility] [address] [place], [address] Chloride [Moles/Vol] 111 mmol/L High 98-108 [facility] Comment on above: Performed By: #### L 100.0100, L500.2500 ####[facility] [address] [place], [address] CO2 [Moles/Vol] 19.3 mmol/L Low 21.0-32.0 [facility] Comment on above: Performed By: #### L 100.0100, L500.2500 ####[facility] [address] [place], [address] Creatinine [Mass/Vol] 1.00 mg/dL Normal 0.70-1.20 [facility] Comment on above: Performed By: #### L 100.0100, L500.2500 ####[facility] [address], [address] ECRCL 53.81 ml/min Normal 50-250 [facility] Comment on above: Performed By: #### L 100.0100, L500.2500 ####[facility] [address] [place], [address] GAP 11 Normal 5-15 [facility] Comment on above: Performed By: #### L 100.0100, L500.2500 ####[facility] [address] [place], [address] GFR/1.73 sq M.predicted among non-blacks MDRD (S/P/Bld) [Vol rate/Area] 62 mL/min/{1.73_m2} Normal >60 [facility] Comment on above: Result Comment: mL/m in/1.73m2 CKD-EPI Creatinine Equation (2020) Performed By: #### L 100.0100, L500.2500 ####[facility] [address] [place], [address] Glucose [Mass/Vol] 92 mg/dL Normal 70-99 [facility] Comment on above: Performed By: #### L 100.0100, L500.2500 ####[facility] [address] [place], [address] Potassium [Moles/Vol] 3.9 mmol/L Normal 3.3-5.1 [facility] Comment on above: Performed By: #### L 100.0100, L500.2500 ####[facility] [address] [place], [address] Sodium [Moles/Vol] 142 mmol/L Normal 133-145 [facility] Comment on above: Performed By: #### L 100.0100, L500.2500 ####[facility] [address] [place], [address] Urea nitrogen [Mass/Vol] 16 mg/dL Normal 4-19 [facility] Comment on above: Performed By: #### L 100.0100, L500.2500 ####[facility] [address] [place], [address] Basophil percentageOrdered B y: Clyde Long on 03-04-2025 Basophils/100 WBC (Bld) 0.8 % 0-[address] [facility] Blood manual differential co mment interpretation (narrative result)Ordered By: Clyde Long on 03-04-2025 Manual differential comment Bassam (Bld) [Interp] SCANNED [facility] CBC W/Diff, Automatedon 02-21 OVALOCYTE 1+ Normal [facility] Comment on above: Performed By: #### L 100.0100, L500.2500 ####[facility] [address] [place], [address] Anisocytosis Ql (Bld) 3+ Normal [facility] Comment on above: Performed By: #### L 100.0100, L500.2500 ####[facility] [address] [place], [address] PLT EST ADEQUATE Normal ADEQ [facility] Comment on above: Performed By: #### L 100.0100, L500.2500 ####[facility] [address] [place], [address] SMEAR COMMENT SCANNED Normal [facility] Comment on above: Performed By: #### L 100.0100, L500.2500 ####[facility] [address] [place], [address] Carbon dioxide, total [Moles /volume] in Central venous bloodOrdered By: Clyde Long on 03-04-2025 CO2 [Moles/Vol] 19.3 mmol/L Low 21.0-32.0 [facility] Chloride assayOrdered By: Julio César Long on 03-04-2025 Chloride [Moles/Vol] 111 mmol/L High 98-108 [facility] Electrocardiogram reportOrde red By: Deondre eLavitt on 03-04-2025 EKG study [facility] Work Phone: [phone] Eosinophil percentageOrdered By: Clyde Long on 03-04-2025 Eosinophils/100 WBC (Bld) 2.2 % 0-5 [facility] Erythrocyte distribution wid th ratioOrdered By: Clyde Long on 03-04-2025 Erythrocyte distribution width (RBC) [Ratio] 22.7 % High 11.6-14.6 [facility] Erythrocyte distribution wid th standard deviationOrdered By: Clyde Long on 03-04-2025 Erythrocyte distribution width (RBC) [Ratio] 80.7 fl High 35.1-43.9 [facility] Ferritinon 03-04-2025 Ferritin [Mass/Vol] 92 ng/mL Normal 22-378 [facility] Comment on above: Performed By: #### L 3410.2350, L503.6550, L503.6030, L100.9950 ####[facility] [address] [place], [place], [phone] Glomerular filtration rate ( GFR) estimation/1.73 sq m using serum, plasma, or whole bOrdered By: Clyde Long on 03-04-2025 GFR/1.73 sq M.predicted among non-blacks MDRD (S/P/Bld) [Vol rate/Area] 62 mL/min/{1.73_m2} >60 [facility] HH, Hemoglobin AND Hematocri ton 03-04-2025 Hematocrit (Bld) [Volume fraction] 27.2 % Low 37-47 [facility] Comment on above: Performed By: #### L 100.0600 ####[facility] [address] [place], [address](760) Hemoglobin (Bld) [Mass/Vol] 8.4 g/dL Low 12.0-15.0 [facility] Comment on above: Performed By: #### L 100.0600 ####[facility] [address] [place], [phone] Hematocrit Auto (Bld) [Volum e fraction]Ordered By: Clyde Long on 03-04-2025 Hematocrit (Bld) [Volume fraction] 27.2 % Low 37-47 [facility] Hemoglobin measurementOrdere d By: Clyde Long on 03-04-2025 Hemoglobin (Bld) [Mass/Vol] 8.4 g/dL Low 12.0-15.0 [facility] Immature granulocytes/100 WB C Auto (Bld)Ordered By: Clyde Long on 03-04-2025 Immature granulocytes/100 WBC (Bld) 0.500 % 0.0-0.9 [facility] Iron measurement (mass/mass) Ordered By: Ivan Cotto on 03-04-2025 Iron (Unsp spec) [Mass/Mass] 33 ug/dL Low 50-170 [facility] Iron+Iron Binding Capacityon 03-04-2025 Iron [Mass/Vol] 33 ug/dL Low 50-170 [facility] Comment on above: Performed By: #### L 3410.2350, L503.6550, L503.6030, L100.9950 ####[facility] [address] [place], [address] IRON SATURATION 11.0 Low 13-59 [facility] Comment on above: Performed By: #### L 3410.2350, L503.6550, L503.6030, L100.9950 ####[facility] [address] [place], [address] TIBC 290 ug/dL Normal 250-450 [facility] Comment on above: Performed By: #### L 3410.2350, L503.6550, L503.6030, L100.9950 ####[facility] [address] [place], [address] UIBC 257 ug/dL Normal 228-428 [facility] Comment on above: Performed By: #### L 3410.2350, L503.6550, L503.6030, L100.9950 ####[facility] [address] [place], [address] MCV (mean corpuscular volume ) determinationOrdered By: Clyde Long on 03-04-2025 MCV (RBC) [Entitic vol] 99.6 fL High 81-[address] [facility] MR/CON.PCM.GIon 03-04-2025 MR/CON.PCM.GI Normal [facility] Mean corpuscular hemoglobin (MCH) determinationOrdered By: Clyde Long on 03-04-2025 MCH (RBC) [Entitic mass] 31.0 pg 27.0-32.0 [facility] Monocyte percentageOrdered B y: Clyde Long on 03-04-2025 Monocytes/100 WBC (Bld) 4.7 % 0-[address] [facility] Neutrophil percentageOrdered By: Clyde Long on 03-04-2025 Neutrophils/100 WBC (Bld) 78.8 % High 47-70 [facility] No Panel InformationOrdered By: Clyde Long on 03-04-2025 3+ [facility] No Panel InformationOrdered By: Ivan Cotto on 03-04-2025 257 ug/dL 228-428 [facility] Ovalocyte detectionOrdered B y: Clyde Long on 03-04-2025 Ovalocytes LM Ql (Bld) 1+ [facility] Platelet countOrdered By: Julio César Long on 03-04-2025 Platelets (Bld) [#/Vol] 154 10*3/uL 150-450 [facility] Platelet estimateOrdered By: Clyde Long on 03-04-2025 Platelets LM Ql (Bld) ADEQUATE ADEQ [facility] Potassium measurement (mass/ volume)Ordered By: Clyde Long on 03-04-2025 Potassium (Unsp spec) [Mass/Vol] 3.9 mmol/L 3.3-5.1 [facility] RBC Auto (Bld) [#/Vol]Ordere d By: Clyde Long on 03-04-2025 RBC (Bld) [#/Vol] 2.45 10*6/uL Low 4.2-5.4 [facility] Retic Panelon 03-04-2025 IM RET FRACTION 30.70 High 3.00-15.90 [facility] Comment on above: Performed By: #### L 3410.2350, L503.6550, L503.6030, L100.9950 ####[facility] [address] [place], [address] RET-HE 30.4 pg Normal 30-35 [facility] Comment on above: Performed By: #### L 3410.2350, L503.6550, L503.6030, L100.9950 ####[facility] [address] [place], [address] Retic Count 9.26 High 0.5-1.5 [facility] Comment on above: Performed By: #### L 3410.2350, L503.6550, L503.6030, L100.9950 ####[facility] [address] [place], [address] Reticulocyte hemoglobin equi valent (RET-He) measurementOrdered By: Ivan Cotto on 03-04-2025 Hemoglobin (Reticulocytes) [Entitic mass] 30.4 pg 30-35 [facility] Reticulocytes Auto (Bld) [#/ Vol]Ordered By: Ivan Cotto on 03-04-2025 Reticulocytes/100 RBC (Bld) 9.26 % High 0.5-1.5 [facility] Serum creatinine measurement (mass/volume)Ordered By: Clyde Long on 03-04-2025 Creatinine [Mass/Vol] 1.00 mg/dL 0.70-1.20 [facility] Serum glucose measurement (m ass/volume)Ordered By: Clyde Logn on 03-04-2025 Glucose [Mass/Vol] 92 mg/dL 70-99 [facility] Serum or plasma calcium rosalina urement (mass/volume)Ordered By: Clyde Long on 03-04-2025 Calcium [Mass/Vol] 9.0 mg/dL 7.6-11.0 [facility] Serum or plasma ferritin peyton surement (mass/volume)Ordered By: Ivan Cotto on 03-04-2025 Ferritin [Mass/Vol] 92 ng/mL 22-378 [facility] Serum or plasma iron saturat ion measurement (mass fraction)Ordered By: Ivan Cotto on 03-04-2025 Iron saturation [Mass fraction] 11.0 % Low 13-59 [facility] Serum or plasma urea nitroge n measurement (mass/volume)Ordered By: Clyde Long on 03-04-2025 Urea nitrogen [Mass/Vol] 16 mg/dL 4-19 [facility] Sodium levelOrdered By: Clyde Long on 03-04-2025 Sodium [Moles/Vol] 142 mmol/L 133-145 [facility] White blood cell (WBC) count Ordered By: Clyde Long on 03-04-2025 WBC (Bld) [#/Vol] 9.8 10*3/uL 4.4-11.0 [facility] 12 Lead EKGon 03-03-2025 12 Lead EKG Normal [facility] Absolute lymphocyte countOrd ered By: Swati Huff on 03-03-2025 Lymphocytes Auto (Unsp spec) [#/Vol] 2.19 10*3/uL 0.83-4.51 [facility] Absolute neutrophil countOrd ered By: Swati Huff on 03-03-2025 Neutrophils (Bld) [#/Vol] 6.9 10*3/uL 2.0-7.7 [facility] Activated partial thrombopla stin time (aPTT) in platelet poor plasma by coagulation aOrdered By: Swati Huff on 03-03-2025 aPTT Coag (PPP) [Time] 25.9 s 24.1-36.2 [facility] Anion gap in Serum or Plasma Ordered By: Swati Huff on 03-03-2025 Anion gap [Moles/Vol] 12 mmol/L 5-15 [facility] Assessment of wrist artery p atency prior to arterial punctureOrdered By: Swati Huff on 03-03-2025 Arterial patency Wrist artery --pre arterial puncture Positive [facility] Automated lymphocyte count a s percentage of total leukocytesOrdered By: Swati Huff on 03-03-2025 Lymphocytes/100 WBC Auto (Unsp spec) 22.1 % 19-41 [facility] BRCon 03-03-2025 Normal [facility] Comment on above: Result Comment: [id number] ON TRANSFUSED 03/03/25 0533 Performed By: #### B TS, BRC, M100.7900 ####[facility] [address] [place], [address] Result Comment: [id number] ON READY Performed By: #### B ####[facility] [address] [place], [address] BUN/creatinine ratioOrdered By: Swati Huff on 03-03-2025 Urea nitrogen/Creatinine [Mass ratio] 21.0 mg/mg High - [facility] Basic Metabolic Profile (BMP )on 03-03-2025 BUN/CRE 21.0 RATIO High 08-12 [facility] Comment on above: Performed By: #### L 501.5200, L501.4021, L501.2450, L500.3400, L100.0100, L500.2500, L503.7505 ####[facility] [address], [address] Calcium [Mass/Vol] 9.0 mg/dL Normal 7.6-11.0 [facility] Comment on above: Performed By: #### L 501.5200, L501.4021, L501.2450, L500.3400, L100.0100, L500.2500, L503.7505 ####[facility] [address] [place], [address] Chloride [Moles/Vol] 108 mmol/L Normal 98-108 [facility] Comment on above: Performed By: #### L 501.5200, L501.4021, L501.2450, L500.3400, L100.0100, L500.2500, L503.7505 ####[facility] [address] [place], [address] CO2 [Moles/Vol] 21.3 mmol/L Normal 21.0-32.0 [facility] Comment on above: Performed By: #### L 501.5200, L501.4021, L501.2450, L500.3400, L100.0100, L500.2500, L503.7505 ####[facility] [address] [place], [address] Creatinine [Mass/Vol] 1.25 mg/dL High 0.70-1.20 [facility] Comment on above: Performed By: #### L 501.5200, L501.4021, L501.2450, L500.3400, L100.0100, L500.2500, L503.7505 ####[facility] [address] [place], [address](151) ECRCL 46.71 ml/min Low 50-250 [facility] Comment on above: Performed By: #### L 501.5200, L501.4021, L501.2450, L500.3400, L100.0100, L500.2500, L503.7505 ####[facility] [address] [place], [place], [phone]) GAP 12 Normal 5-15 [facility] Comment on above: Performed By: #### L 501.5200, L501.4021, L501.2450, L500.3400, L100.0100, L500.2500, L503.7505 ####[facility] [address] [place], [place], [phone](126) GFR/1.73 sq M.predicted among non-blacks MDRD (S/P/Bld) [Vol rate/Area] 48 mL/min/{1.73_m2} Low >60 [facility] Comment on above: Result Comment: mL/m in/1.73m2 CKD-EPI Creatinine Equation (2020) Performed By: #### L 501.5200, L501.4021, L501.2450, L500.3400, L100.0100, L500.2500, L503.7505 ####[facility] [address] [place], [address] Glucose [Mass/Vol] 114 mg/dL High 70-99 [facility] Comment on above: Performed By: #### L 501.5200, L501.4021, L501.2450, L500.3400, L100.0100, L500.2500, L503.7505 ####[facility] [address] [place], [address] Potassium [Moles/Vol] 3.9 mmol/L Normal 3.3-5.1 [facility] Comment on above: Performed By: #### L 501.5200, L501.4021, L501.2450, L500.3400, L100.0100, L500.2500, L503.7505 ####[facility] [address] [place], [address] Sodium [Moles/Vol] 141 mmol/L Normal 133-145 [facility] Comment on above: Performed By: #### L 501.5200, L501.4021, L501.2450, L500.3400, L100.0100, L500.2500, L503.7505 ####[facility] [address] [place], [address] Urea nitrogen [Mass/Vol] 26 mg/dL High 4-19 [facility] Comment on above: Performed By: #### L 501.5200, L501.4021, L501.2450, L500.3400, L100.0100, L500.2500, L503.7505 ####[facility] [address] [place], [address] BUN Normal 4-19 [facility] Comment on above: Result Comment: MOVE D TO DIFFERENT REQ- SEE C62 Performed By: #### L 500.2500 ####[facility] [address] [place], [address] BUN/CRE Normal 10-20 [facility] Comment on above: Result Comment: MOVE D TO DIFFERENT REQ- SEE C62 Performed By: #### L 500.2500 ####[facility] [address] [place], [address] Calcium Normal 7.6-11.0 [facility] Comment on above: Result Comment: MOVE D TO DIFFERENT REQ- SEE C62 Performed By: #### L 500.2500 ####[facility] [address] [place], [address] CL Normal 98-108 [facility] Comment on above: Result Comment: MOVE D TO DIFFERENT REQ- SEE C62 Performed By: #### L 500.2500 ####[facility] [address] [place], [address] CO2 Normal 21.0-32.0 [facility] Comment on above: Result Comment: MOVE D TO DIFFERENT REQ- SEE C62 Performed By: #### L 500.2500 ####[facility] [address] [place], [address] CREAT,SERUM Normal 0.70-1.20 [facility] Comment on above: Result Comment: MOVE D TO DIFFERENT REQ- SEE C62 Performed By: #### L 500.2500 ####[facility] [address] [place], [address] eGFR Normal >60 [facility] Comment on above: Result Comment: MOVE D TO DIFFERENT REQ- SEE C62 Performed By: #### L 500.2500 ####[facility] [address] [place], [address] GAP Normal 5-15 [facility] Comment on above: Result Comment: MOVE D TO DIFFERENT REQ- SEE C62 Performed By: #### L 500.2500 ####[facility] [address] [place], [address] GLU Normal 70-99 [facility] Comment on above: Result Comment: MOVE D TO DIFFERENT REQ- SEE C62 Performed By: #### L 500.2500 ####[facility] [address] [place], [address] Potassium Normal 3.3-5.1 [facility] Comment on above: Result Comment: MOVE D TO DIFFERENT REQ- SEE C62 Performed By: #### L 500.2500 ####[facility] [address] [place], [address] Basic Metabolic Profile (BMP) Normal 133-145 [facility] Comment on above: Result Comment: MOVE D TO DIFFERENT REQ- SEE C62 Performed By: #### L 500.2500 ####[facility] [address] [place], [address] Basophil percentageOrdered B y: Swati Huff on 03-03-2025 Basophils/100 WBC (Bld) 0.5 % 0-[address] [facility] Bilirubin directOrdered By: Swati Huff on 03-03-2025 Bilirubin.direct [Mass/Vol] 0.13 mg/dL 0.00-0.30 [facility] Bilirubin, totalOrdered By: Swati Huff on 03-03-2025 Bilirubin [Mass/Vol] 0.26 mg/dL 0.00-1.30 [facility] Blood Gases by [facility] ALVARO TEST Positive Normal [facility] Comment on above: Performed By: #### L 9000.0800 ####[facility] [address] [place], [address] Base excess Calc (Bld) [Moles/Vol] -6 mmol/L Low -2 to +2 [facility] Comment on above: Performed By: #### L 9000.0800 ####[facility] [address] [place], [address] Blood Gas Type ART Normal [facility] Comment on above: Performed By: #### L 8999.0800 ####[facility] [address] [place], [address] CO2 [Moles/Vol] 19 mmol/L Normal [facility] Comment on above: Performed By: #### L 8999.0800 ####[facility] [address] [place], [address] HCO3 (Bld) [Moles/Vol] 18.0 mmol/L Low 22-[address] [facility] Comment on above: Performed By: #### L 0.0800 ####[facility] [address] [place], [address] Mode Not entered [facility] Comment on above: Performed By: #### L 0.0800 ####[facility] [address] [place], [address] O2 Delivery Dev Not entered [facility] Comment on above: Performed By: #### L 0.0800 ####[facility] [address] [place], [address] pCO2 24.3 mmHg Low 35-45 [facility] Comment on above: Performed By: #### L 9000.0800 ####[facility] [address] [place], [address] pH (Bld) 7.48 [pH] High 7.35-7.45 [facility] Comment on above: Performed By: #### L 9000.0800 ####[facility] [address] [place], [address] PO2 34 mmHG Invalid Interpretation Code 75-100 [facility] Comment on above: Performed By: #### L 0.0800 ####[facility] [address] [place], [address] Read Back By Yes Normal [facility] Comment on above: Performed By: #### L 9000.0800 ####[facility] [address] [place], [address] SITE R Radial Normal [facility] Comment on above: Performed By: #### L 9000.0800 ####[facility] [address] [place], [address] SO2 71 Low 95-99 [facility] Comment on above: Performed By: #### L 9000.0800 ####[facility] [address] [place], [address] Blood base excess determinat ionOrdered By: Swati Huff on 03-03-2025 Base excess Calc (BldV) [Moles/Vol] -6 mmol/L Low -2-2 [facility] Blood bicarbonate measuremen tOrdered By: Swati Huff on 03-03-2025 HCO3 (Bld) [Moles/Vol] 18.0 mmol/L Low 22-[address] [facility] CBC W/Diff, Automatedon 05- Anisocytosis Ql (Bld) 1+ Normal [facility] Comment on above: Performed By: #### L 501.5200, L501.4021, L501.2450, L500.3400, L100.0100, L500.2500, L503.7505 ####[facility] [address] [place], [address] Carbon dioxide, total [Moles /volume] in Central venous bloodOrdered By: Swati Huff on 03-03-2025 CO2 [Moles/Vol] 21.3 mmol/L 21.0-32.0 [facility] Chest 1 View (Portable)on Chest 1 View (Portable) Normal [facility] Chloride assayOrdered By: Manuel Huff on 03-03-2025 Chloride [Moles/Vol] 108 mmol/L 98-108 [facility] D-Dimer Quantitative (DVT/PE )on 03-03-2025 D-DIMER QUANT 0.58 FEU/ug/m Invalid Interpretation Code 0.27-0.49 [facility] Comment on above: Result Comment: D-Di ji ELEVATED (>0.49): Additional studies and clinicalassessments are indicated to conclude diagnosis of:Deep Vein Thrombosis (DVT) or Pulmonary Embolism (PE)CRITICAL VALUE CALLED TO BINIHJ47/11/25 0350 Jhonny Rogers.RESULTS READ BACK BY SAME. Performed By: #### L 300.8000, L300.4310, L300.3900 ####[facility] [address] [place], [address] Emergency Department Summary on 03-03-2025 Emergency Department Summary Normal [facility] Eosinophil percentageOrdered By: Swati Huff on 03-03-2025 Eosinophils/100 WBC (Bld) 2.5 % 0-5 [facility] Erythrocyte distribution wid th ratioOrdered By: Swati [facility] on 03-03-2025 Erythrocyte distribution width (RBC) [Ratio] 18.6 % High 11.6-14.6 [facility] Erythrocyte distribution wid th standard deviationOrdered By: Swatiloan Huff on 03-03-2025 Erythrocyte distribution width (RBC) [Ratio] 70.3 fl High 35.1-43.9 [facility] Glomerular filtration rate ( GFR) estimation/1.73 sq m using serum, plasma, or whole bOrdered By: Swati Huff on 03-03-2025 GFR/1.73 sq M.predicted among non-blacks MDRD (S/P/Bld) [Vol rate/Area] 48 mL/min/{1.73_m2} Low >60 [facility] Comment on above: mL/min/1.73m2 CKD-EP I Creatinine Equation (2020) H AND P Exam - Hospitaliston 03-03-2025 H&P Exam - Hospitalist Normal [facility] HH, Hemoglobin AND Hematocri ton 03-03-2025 Hematocrit (Bld) [Volume fraction] 27.0 % Low 37-47 [facility] Comment on above: Performed By: #### L 100.0600 ####[facility] [address] [place], [address] Hemoglobin (Bld) [Mass/Vol] 8.4 g/dL Low 12.0-15.0 [facility] Comment on above: Performed By: #### L 100.0600 ####[facility] [address] [place], [address] Hematocrit (Bld) [Volume fraction] 26.2 % Low 37-[address] [place] [address] Comment on above: Performed By: #### L 100.0600 ####[facility] [address] [place], [address] Hemoglobin (Bld) [Mass/Vol] 8.4 g/dL Low 12.0-15.0 [facility] Comment on above: Performed By: #### L 100.0600 ####[facility] [address] [place], [address] Hematocrit (Bld) [Volume fraction] 26.4 % Low [address] [place] [address] Comment on above: Performed By: #### L 100.0600 ####[facility] [address] [place], [address] Hemoglobin (Bld) [Mass/Vol] 8.3 g/dL Low 12.0-15.0 [facility] Comment on above: Performed By: #### L 100.0600 ####[facility] [address] [place], [address] Hematocrit Auto (Bld) [Volum e fraction]Ordered By: Swati Huff on 03-03-2025 Hematocrit (Bld) [Volume fraction] 20.4 % Low [address] [place] [address] Hemoglobin measurementOrdere d By: Swati Huff on 03-03-2025 Hemoglobin (Bld) [Mass/Vol] 6.2 g/dL Low 12.0-15.0 [facility] Immature granulocytes/100 WB C Auto (Bld)Ordered By: Swati Huff on 03-03-2025 Immature granulocytes/100 WBC (Bld) 0.500 % 0.0-0.9 [facility] Comment on above: IG% - Immature Granu locytes (promyelocytes, myelocytes and metamyelocytes) > 1% indicates that a LEFT SHIFT is Present. International normalized rat io (INR) calculationOrdered By: Swati Huff on 03-03-2025 INR Coag (Bld) [Relative time] 1.0 {INR} [facility] [facility] L499.0042on 03-03-2025 Trop T High Sen 21 ng/L High <=14 [facility] Comment on above: Performed By: #### L 499.0042 ####[facility] [address] [place], [address] L499.0043on 03-03-2025 Trop T High Sen 19 ng/L High <=14 [facility] Comment on above: Performed By: #### L 499.0043 ####[facility] [address] [place], [address] L501.4021on 03-03-2025 Trop T High Sen 21 ng/L High <=14 [facility] Comment on above: Performed By: #### L 501.5200, L501.4021, L501.2450, L500.3400, L100.0100, L500.2500, L503.7505 ####[facility] [address] [place], [address] L503.7505on 03-03-2025 Natriuretic peptide B (Bld) [Mass/Vol] 531 pg/mL Normal <=900 [facility] Comment on above: Result Comment: Hear t Failure Unlikely: < 300 pg/mLHeart Failure Likely< 50 Years: > 450 pg/mL50-75 Years: > 900 pg/mL>75 Years: > 1800 pg/mL Performed By: #### L 501.5200, L501.4021, L501.2450, L500.3400, L100.0100, L500.2500, L503.7505 ####[facility] [address] [place], [place], [id number] Laboratory - Chemistry and C hemistry - challengeOrdered By: Swati Huff on 03-03-2025 AST [Catalytic activity/Vol] 21 U/L <32 [facility] Laboratory - Hematology and Cell countsOrdered By: Swati Huff on 03-03-2025 Anisocytosis Ql (Bld) 1+ [facility] Lipaseon 03-03-2025 Lipase [Catalytic activity/Vol] 52 U/L Normal 13-75 [facility] Comment on above: Result Comment: Plewarren white note:LIPASE revised reference range effective 23.New Lipase methodology. Expected to produce lower valuesthan the previous assay method.NEW Reference Range: 13 - 75 U/L Performed By: #### L 501.5200, L501.4021, L501.2450, L500.3400, L100.0100, L500.2500, L503.7505 ####[facility] [address] [place], [address] Lipase measurementOrdered By : Swati Huff on 03-03-2025 Lipase [Catalytic activity/Vol] 52 U/L 13-75 [facility] Comment on above: Please note:LIPASE r evised reference range effective 23. New Lipase methodology. Expected to produce lower values than the previous assay method. NEW Reference Range: 13 - 75 U/L Liver Profileon 03-03-2025 Albumin [Mass/Vol] 3.6 g/dL Normal 3.4-4.8 [facility] Comment on above: Performed By: #### L 501.5200, L501.4021, L501.2450, L500.3400, L100.0100, L500.2500, L503.7505 ####[facility] [address] [place], [place], [id number] ALK PHOS 58 U/L Normal 35-104 [facility] Comment on above: Performed By: #### L 501.5200, L501.4021, L501.2450, L500.3400, L100.0100, L500.2500, L503.7505 ####[facility] [address] [place], [address] ALT [Catalytic activity/Vol] 35 U/L Normal <=34 [facility] Comment on above: Performed By: #### L 501.5200, L501.4021, L501.2450, L500.3400, L100.0100, L500.2500, L503.7505 ####[facility] [address] [place], [address] AST [Catalytic activity/Vol] 21 U/L Normal <=31 [facility] Comment on above: Performed By: #### L 501.5200, L501.4021, L501.2450, L500.3400, L100.0100, L500.2500, L503.7505 ####[facility] [address] [place], [address] Bilirubin [Mass/Vol] 0.26 mg/dL Normal 0.00-1.30 [facility] Comment on above: Performed By: #### L 501.5200, L501.4021, L501.2450, L500.3400, L100.0100, L500.2500, L503.7505 ####[facility] [address] [place], [address] Bilirubin.direct [Mass/Vol] 0.13 mg/dL Normal 0.00-0.30 [facility] Comment on above: Performed By: #### L 501.5200, L501.4021, L501.2450, L500.3400, L100.0100, L500.2500, L503.7505 ####[facility] [address] [place], [address] Globulin (S) [Mass/Vol] 2.4 g/dL Normal 2.2-4.2 [facility] Comment on above: Performed By: #### L 501.5200, L501.4021, L501.2450, L500.3400, L100.0100, L500.2500, L503.7505 ####[facility] [address] [place], [place], [id number] T PROT 6.0 g/dL Normal 5.9-8.4 [facility] Comment on above: Performed By: #### L 501.5200, L501.4021, L501.2450, L500.3400, L100.0100, L500.2500, L503.7505 ####[facility] [address] [place], [address] MCV (mean corpuscular volume ) determinationOrdered By: Swati Huff on 03-03-2025 MCV (RBC) [Entitic vol] 106.8 fL High 81-[address] [facility] Magnesiumon 03-03-2025 Magnesium [Mass/Vol] 2.0 mg/dL Normal 1.5-2.2 [facility] Comment on above: Performed By: #### L 501.5200, L501.4021, L501.2450, L500.3400, L100.0100, L500.2500, L503.7505 ####[facility] [address] [place], [address] Magnesium measurement (mass/ volume)Ordered By: Swati Huff on 03-03-2025 Magnesium (Unsp spec) [Mass/Vol] 2.0 mg/dL 1.5-2.2 [facility] Mean corpuscular hemoglobin (MCH) determinationOrdered By: Swati Huff on 03-03-2025 MCH (RBC) [Entitic mass] 32.5 pg High 27.0-32.0 [facility] Mean corpuscular hemoglobin concentration (MCHC) determinationOrdered By: Swati Huff on 03-03-2025 MCHC (RBC) [Mass/Vol] 30.4 g/dL Low 32-36 [facility] Mean platelet volume determi nationOrdered By: Swati Huff on 03-03-2025 Platelet mean volume (Bld) [Entitic vol] 10.3 fL 6.2-12.0 [facility] Measurement, pHOrdered By: Shruthi Huff on 03-03-2025 pH (Unsp spec) 7.48 [pH] High 7.35-7.45 [facility] Monocyte percentageOrdered B y: Swati Huff on 03-03-2025 Monocytes/100 WBC (Bld) 5.1 % 0-10 [facility] Natriuretic peptide.B prohor lili N-Terminal [Mass/volume] in Serum or PlasmaOrdered By: Swati Huff on 03-03-2025 Natriuretic peptide.B prohormone N-Terminal [Mass/Vol] 531 pg/mL <900 [facility] Comment on above: Heart Failure Unlike ly: < 300 pg/mLHeart Failure Likely< 50 Years: > 450 pg/mL50-75 Years: > 900 pg/mL>75 Years: > 1800 pg/mL Neutrophil percentageOrdered By: Swati Huff on 03-03-2025 Neutrophils/100 WBC (Bld) 69.3 % 47-70 [facility] No Panel InformationOrdered By: Swati Huff on 03-03-2025 Bld Gas Crit Called To/Read Back By Yes [facility] Blood Gas Sample Site R Radial [facility] Blood Gas Specimen Type ART [facility] Blood Gas Vent Mode Not entered [facility] Oxygen Delivery Device Not entered [facility] ART [facility] R Radial [facility] Not entered [facility] Yes [facility] 21 U/L <32 [facility] Nucleated red blood cell per centageOrdered By: Swati Huff on 03-03-2025 Nucleated RBC/100 WBC (Bld) [Ratio] 0 % 0-5 [facility] Partial Thromboplast Timeon 03-03-2025 aPTT Coag (Bld) [Time] 25.9 s Normal 24.1-36.2 [facility] Comment on above: Performed By: #### L 300.8000, L300.4310, L300.3900 ####[facility] [address] [place], [address] Platelet countOrdered By: Manuel Huff on 03-03-2025 Platelets (Bld) [#/Vol] 184 10*3/uL 150-450 [facility] Potassium measurement (mass/ volume)Ordered By: Swati Huff on 03-03-2025 Potassium (Unsp spec) [Mass/Vol] 3.9 mmol/L 3.3-5.1 [facility] Prothrombin Time w/INRon INR Coag (PPP) [Relative time] 1.0 {INR} Normal [facility] Comment on above: Performed By: #### L 300.8000, L300.4310, L300.3900 ####[facility] [address] [place], [address] PT Coag (PPP) [Time] 13.7 s Normal 11.7-14.9 [facility] Comment on above: Performed By: #### L 300.8000, L300.4310, L300.3900 ####[facility] [address] [place], [address] Prothrombin timeOrdered By: Swati Huff on 03-03-2025 PT Coag (PPP) [Time] 13.7 s 11.7-14.9 [facility] RBC Auto (Bld) [#/Vol]Ordere d By: Swati Huff on 03-03-2025 RBC (Bld) [#/Vol] 1.91 10*6/uL Low 4.2-5.4 [facility] Serum creatinine measurement (mass/volume)Ordered By: Swati Huff on 03-03-2025 Creatinine [Mass/Vol] 1.25 mg/dL High 0.70-1.20 [facility] Serum globulin measurementOr dered By: Swati Huff on 03-03-2025 Globulin (S) [Mass/Vol] 2.4 g/dL 2.2-4.[address] [facility] Serum glucose measurement (m ass/volume)Ordered By: Swati Huff on 03-03-2025 Glucose [Mass/Vol] 114 mg/dL High 70-99 [facility] Serum or plasma alanine tovar otransferase (ALT) measurementOrdered By: Swati Huff on 03-03-2025 ALT [Catalytic activity/Vol] 35 U/L <35 [facility] Serum or plasma albumin rosalina urement (mass/volume)Ordered By: Swati Huff on 03-03-2025 Albumin [Mass/Vol] 3.6 g/dL 3.4-4.8 [facility] Serum or plasma alkaline blanche sphatase measurementOrdered By: Swati Huff on 03-03-2025 ALP [Catalytic activity/Vol] 58 U/L 35-104 [facility] Serum or plasma calcium rosalina urement (mass/volume)Ordered By: Swati Huff on 03-03-2025 Calcium [Mass/Vol] 9.0 mg/dL 7.6-11.0 [facility] Serum or plasma urea nitroge n measurement (mass/volume)Ordered By: Swati Huff on 03-03-2025 Urea nitrogen [Mass/Vol] 26 mg/dL High 4-19 [facility] Sodium levelOrdered By: Salvador Huff on 03-03-2025 Sodium [Moles/Vol] 141 mmol/L 133-145 [facility] Stool Occult Blood iFOBon STOB Positive Normal [facility] Comment on above: Performed By: #### B , [facility], M100.7900 ####[facility] [address] [facility] [place], [address] Stool gastrointestinal hemog lobin detection by immunologic methodOrdered By: Swati Huff on 03-03-2025 Lower GI hemoglobin IA Ql (Stl) Positive Abnormal [facility] Total carbon dioxide measure mentOrdered By: Swati Huff on 03-03-2025 CO2 [Moles/Vol] 19 mmol/L [facility] Total proteinOrdered By: Kyra Huff on 03-03-2025 Protein [Mass/Vol] 6.0 g/dL 5.9-8.4 [facility] Troponin T.cardiac [Mass/vol ume] in Serum or Plasma by High sensitivity methodOrdered By: Swati Huff on 03-03-2025 Troponin T.cardiac High sensitivity method [Mass/Vol] 19 ng/L High <14 [facility] Troponin T.cardiac High sensitivity method [Mass/Vol] 21 ng/L High <14 [facility] Troponin T.cardiac High sensitivity method [Mass/Vol] 21 ng/L High <14 [facility] Comment on above: Delta: 26 on 5-0215 Type AND Screenon 03-03-2025 ABO and Rh group Nom (Bld) Blood group A Rh(D) negative Normal [facility] Comment on above: Order Comment: CMV N EG? NNumber of units to transfuse: 1Is pt's Hgb is = to 7.0 mg/dl or Hct </= 21%? YReason for Ordering Blood: ChronicAre the blood/blood products to be transfused? YIs the patient having/had surgery? NNWhen ReadyNYCHRONIC Performed By: #### B , [facility], M100.7900 ####[facility] [address] [place], [address] White blood cell (WBC) count Ordered By: Swati Huff on 03-03-2025 WBC (Bld) [#/Vol] 9.9 10*3/uL 4.4-11.0 [facility] 12 Lead EKGon 02-28-2025 12 Lead EKG Normal [facility] 12 Lead EKG Normal [facility] Absolute lymphocyte countOrd ered By: Orlando Abdi on 02-28-2025 Lymphocytes Auto (Unsp spec) [#/Vol] 3.11 10*3/uL 0.83-4.51 [facility] Absolute neutrophil countOrd ered By: Orlando Abdi on 02-28-2025 Neutrophils (Bld) [#/Vol] 6.7 10*3/uL 2.0-7.7 [facility] Anion gap in Serum or Plasma Ordered By: Orlando Abdi on 02-28-2025 Anion gap [Moles/Vol] 11 mmol/L 5-15 [facility] Automated lymphocyte count a s percentage of total leukocytesOrdered By: Orlando Abdi on 02-28-2025 Lymphocytes/100 WBC Auto (Unsp spec) 28.0 % 19-41 [facility] BUN/creatinine ratioOrdered By: Orlando Abdi on 02-28-2025 Urea nitrogen/Creatinine [Mass ratio] 27.2 mg/mg High 10- [facility] Basic Metabolic Profile (BMP )on 02-28-2025 BUN/CRE 27.2 RATIO High - [facility] Comment on above: Performed By: #### L 500.2500, L100.0100, L501.4021 ####[facility] [address] [place], [address] Calcium [Mass/Vol] 9.2 mg/dL Normal 7.6-11.0 [facility] Comment on above: Performed By: #### L 500.2500, L100.0100, L501.4021 ####[facility] [address] [place], [address] Chloride [Moles/Vol] 107 mmol/L Normal 98-108 [facility] Comment on above: Performed By: #### L 500.2500, L100.0100, L501.4021 ####[facility] [address] [place], [address] CO2 [Moles/Vol] 22.6 mmol/L Normal 21.0-32.0 [facility] Comment on above: Performed By: #### L 500.2500, L100.0100, L501.4021 ####[facility] [address] [place], [address] Creatinine [Mass/Vol] 1.09 mg/dL Normal 0.70-1.20 [facility] Comment on above: Performed By: #### L 500.2500, L100.0100, L501.4021 ####[facility] [address] [place], [address] ECRCL 53.96 ml/min Normal 50-250 [facility] Comment on above: Performed By: #### L 500.2500, L100.0100, L501.4021 ####[facility] [address] [place], [address] GAP 11 Normal 5-15 [facility] Comment on above: Performed By: #### L 500.2500, L100.0100, L501.4021 ####[facility] [address] [place], [address] GFR/1.73 sq M.predicted among non-blacks MDRD (S/P/Bld) [Vol rate/Area] 56 mL/min/{1.73_m2} Low >60 [facility] Comment on above: Result Comment: mL/m in/1.73m2 CKD-EPI Creatinine Equation (2020) Performed By: #### L 500.2500, L100.0100, L501.4021 ####[facility] [address] [place], [address] Glucose [Mass/Vol] 110 mg/dL High 70-99 [facility] Comment on above: Performed By: #### L 500.2500, L100.0100, L501.4021 ####[facility] [address] [place], [address] Potassium [Moles/Vol] 4.9 mmol/L Normal 3.3-5.1 [facility] Comment on above: Performed By: #### L 500.2500, L100.0100, L501.4021 ####[facility] [address] [place], [address] Sodium [Moles/Vol] 140 mmol/L Normal 133-145 [facility] Comment on above: Performed By: #### L 500.2500, L100.0100, L501.4021 ####[facility] [address] [place], [address] Urea nitrogen [Mass/Vol] 30 mg/dL High 4-19 [facility] Comment on above: Performed By: #### L 500.2500, L100.0100, L501.4021 ####[facility] [address] [place], [address] Basophil percentageOrdered B y: Orlando Abdi on 02-28-2025 Basophils/100 WBC (Bld) 0.7 % 0-[address] [facility] CBC W/Diff, Automatedon Absolute Lymph 3.11 X10 3/uL Normal 0.83-4.51 [facility] Comment on above: Performed By: #### L 500.2500, L100.0100, L501.4021 ####[facility] [address] [place], [address] Absolute Neut 6.7 X10 3/uL Normal 2.0-7.7 [facility] Comment on above: Performed By: #### L 500.2500, L100.0100, L501.4021 ####[facility] [address] [place], [address] Basophils/100 WBC (Bld) 0.7 % Normal 0-[address] [facility] Comment on above: Performed By: #### L 500.2500, L100.0100, L501.4021 ####[facility] [address] [place], [address] Eosinophils/100 WBC (Bld) 3.6 % Normal 0-5 [facility] Comment on above: Performed By: #### L 500.2500, L100.0100, L501.4021 ####[facility] [address] [place], [address] Erythrocyte distribution width (RBC) [Ratio] 18.0 % High 11.6-14.6 [facility] Comment on above: Performed By: #### L 500.2500, L100.0100, L501.4021 ####[facility] [address] [place], [address] Hematocrit (Bld) [Volume fraction] 23.4 % Low 37-47 [facility] Comment on above: Performed By: #### L 500.2500, L100.0100, L501.4021 ####[facility] [address] [place], [address] Hemoglobin (Bld) [Mass/Vol] 7.4 g/dL Low 12.0-15.0 [facility] Comment on above: Performed By: #### L 500.2500, L100.0100, L501.4021 ####[facility] [address] [place], [address] IG% 0.700 Normal 0.0-0.9 [facility] Comment on above: Result Comment: IG% - Immature Granulocytes (promyelocytes, myelocytes andmetamyelocytes) > 1% indicates that a LEFT SHIFT is Present. Performed By: #### L 500.2500, L100.0100, L501.4021 ####[facility] [address] [place], [address] Lymphocytes/100 WBC (Bld) 28.0 % Normal 19-41 [facility] Comment on above: Performed By: #### L 500.2500, L100.0100, L501.4021 ####[facility] [address] [place], [address] MCH (RBC) [Entitic mass] 32.3 pg High 27.0-32.0 [facility] Comment on above: Performed By: #### L 500.2500, L100.0100, L501.4021 ####[facility] [address] [place], [address] MCHC (RBC) [Mass/Vol] 31.6 g/dL Low 32-36 [facility] Comment on above: Performed By: #### L 500.2500, L100.0100, L501.4021 ####[facility] [address] [place], [address] MCV (RBC) [Entitic vol] 102.2 fL High 81-[address] [facility] Comment on above: Performed By: #### L 500.2500, L100.0100, L501.4021 ####[facility] [address] [place], [address] Monocytes/100 WBC (Bld) 6.2 % Normal 0-10 [facility] Comment on above: Performed By: #### L 500.2500, L100.0100, L501.4021 ####[facility] [address] [place], [address] Neutrophils/100 WBC (Bld) 60.8 % Normal 47-70 [facility] Comment on above: Performed By: #### L 500.2500, L100.0100, L501.4021 ####[facility] [address] [place], [address] Nucleated RBC (Bld) [#/Vol] 0 10*3/uL Normal 0-5 [facility] Comment on above: Performed By: #### L 500.2500, L100.0100, L501.4021 ####[facility] [address] [place], [address] Platelet mean volume (Bld) [Entitic vol] 10.2 fL Normal 6.2-12.0 [facility] Comment on above: Performed By: #### L 500.2500, L100.0100, L501.4021 ####[facility] [address] [place], [address] Platelets (Bld) [#/Vol] 199 10*3/uL Normal 150-450 [facility] Comment on above: Performed By: #### L 500.2500, L100.0100, L501.4021 ####[facility] [address] [place], [address] RBC (Bld) [#/Vol] 2.29 10*6/uL Low 4.2-5.4 [facility] Comment on above: Performed By: #### L 500.2500, L100.0100, L501.4021 ####[facility] [address] [place], [address] RDW SD 64.8 fl High 35.1-43.9 [facility] Comment on above: Performed By: #### L 500.2500, L100.0100, L501.4021 ####[facility] [address] [place], [address] WBC (Bld) [#/Vol] 11.1 10*3/uL High 4.4-11.0 [facility] Comment on above: Performed By: #### L 500.2500, L100.0100, L501.4021 ####[facility] [address] [place], [address] Carbon dioxide, total [Moles /volume] in Central venous bloodOrdered By: Orlando Abdi on 02-28-2025 CO2 [Moles/Vol] 22.6 mmol/L 21.0-32.0 [facility] Chest 1 View (Portable)on Chest 1 View (Portable) Normal [facility] Chloride assayOrdered By: Bobbi Abdi on 02-28-2025 Chloride [Moles/Vol] 107 mmol/L 98-108 [facility] Emergency Department Summary on 02-28-2025 Emergency Department Summary Normal [facility] Eosinophil percentageOrdered By: Orlanod Abdi on 02-28-2025 Eosinophils/100 WBC (Bld) 3.6 % 0-5 [facility] Erythrocyte distribution wid th ratioOrdered By: Orlando Abdi on 02-28-2025 Erythrocyte distribution width (RBC) [Ratio] 18.0 % High 11.6-14.6 [facility] Erythrocyte distribution wid th standard deviationOrdered By: Orlando Abdi on 02-28-2025 Erythrocyte distribution width (RBC) [Ratio] 64.8 fl High 35.1-43.9 [facility] Glomerular filtration rate ( GFR) estimation/1.73 sq m using serum, plasma, or whole bOrdered By: Orlando Abdi on 02-28-2025 GFR/1.73 sq M.predicted among non-blacks MDRD (S/P/Bld) [Vol rate/Area] 56 mL/min/{1.73_m2} Low >60 [facility] Comment on above: mL/min/1.73m2 CKD-EP I Creatinine Equation (2020) Hematocrit Auto (Bld) [Volum e fraction]Ordered By: Orlandogema Abdi on 02-28-2025 Hematocrit (Bld) [Volume fraction] 23.4 % Low 37-47 [facility] Hemoglobin measurementOrdere d By: Orlando Abdi on 02-28-2025 Hemoglobin (Bld) [Mass/Vol] 7.4 g/dL Low 12.0-15.0 [facility] Immature granulocytes/100 WB C Auto (Bld)Ordered By: Orlando Abdi on 02-28-2025 Immature granulocytes/100 WBC (Bld) 0.700 % 0.0-0.9 [facility] Comment on above: IG% - Immature Granu locytes (promyelocytes, myelocytes and metamyelocytes) > 1% indicates that a LEFT SHIFT is Present. L499.0042on 02-28-2025 Trop T High Sen 27 ng/L High <=14 [facility] Comment on above: Performed By: #### L 499.0042 ####[facility] [address] [place], [place], [id number] L499.0043on 02-28-2025 Trop T High Sen Normal <=14 [facility] Comment on above: Result Comment: Canc elled via OM: Order cancelled - Patient discharged Performed By: #### L 499.0043 ####[facility] [address] [place], [address] L501.4021on 02-28-2025 Trop T High Sen 26 ng/L High <=14 [facility] Comment on above: Performed By: #### L 500.2500, L100.0100, L501.4021 ####[facility] [address] [place], [address] MCV (mean corpuscular volume ) determinationOrdered By: Orlando Abdi on 02-28-2025 MCV (RBC) [Entitic vol] 102.2 fL High 81-[address] [facility] Mean corpuscular hemoglobin (MCH) determinationOrdered By: Orlando Abdi on 02-28-2025 MCH (RBC) [Entitic mass] 32.3 pg High 27.0-32.0 [facility] Mean corpuscular hemoglobin concentration (MCHC) determinationOrdered By: Orlando Abdi on 02-28-2025 MCHC (RBC) [Mass/Vol] 31.6 g/dL Low 32-36 [facility] Mean platelet volume determi nationOrdered By: Orlando Abdi on 02-28-2025 Platelet mean volume (Bld) [Entitic vol] 10.2 fL 6.2-12.0 [facility] Monocyte percentageOrdered B y: Orlando Abdi on 02-28-2025 Monocytes/100 WBC (Bld) 6.2 % 0-[address] [facility] Neutrophil percentageOrdered By: Orlando Abdi on 02-28-2025 Neutrophils/100 WBC (Bld) 60.8 % 47-70 [facility] Nucleated red blood cell per centageOrdered By: Orlando Abdi on 02-28-2025 Nucleated RBC/100 WBC (Bld) [Ratio] 0 % 0-5 [facility] Platelet countOrdered By: Bobbi Abdi on 02-28-2025 Platelets (Bld) [#/Vol] 199 10*3/uL 150-450 [facility] Potassium measurement (mass/ volume)Ordered By: Orlando Abdi on 02-28-2025 Potassium (Unsp spec) [Mass/Vol] 4.9 mmol/L 3.3-5.1 [facility] RBC Auto (Bld) [#/Vol]Ordere d By: Orlando Abdi on 02-28-2025 RBC (Bld) [#/Vol] 2.29 10*6/uL Low 4.2-5.4 [facility] Serum creatinine measurement (mass/volume)Ordered By: Orlando Abdi on 02-28-2025 Creatinine [Mass/Vol] 1.09 mg/dL 0.70-1.20 [facility] Serum glucose measurement (m ass/volume)Ordered By: Orlando Abdi on 02-28-2025 Glucose [Mass/Vol] 110 mg/dL High 70-99 [facility] Serum or plasma calcium rosalina urement (mass/volume)Ordered By: Orlando Abdi on 02-28-2025 Calcium [Mass/Vol] 9.2 mg/dL 7.6-11.0 [facility] Serum or plasma urea nitroge n measurement (mass/volume)Ordered By: Orlando Abdi on 02-28-2025 Urea nitrogen [Mass/Vol] 30 mg/dL High 4-19 [facility] Sodium levelOrdered By: Henry Abdi on 02-28-2025 Sodium [Moles/Vol] 140 mmol/L 133-145 [facility] Troponin T.cardiac [Mass/vol ume] in Serum or Plasma by High sensitivity methodOrdered By: Orlando Abdi on 02-28-2025 Troponin T.cardiac High sensitivity method [Mass/Vol] 27 ng/L High <14 [facility] Troponin T.cardiac High sensitivity method [Mass/Vol] 26 ng/L High <14 [facility] Comment on above: Delta: 846 on White blood cell (WBC) count Ordered By: Orlando Abdi on 02-28-2025 WBC (Bld) [#/Vol] 11.1 10*3/uL High 4.4-11.0 [facility] .Auto Diffon 02-26-2025 Basophil, Absolute 0.1 10 3/mcL Normal 0.0-0.3 [facility] Comment on above: Performed By: #### M ORPH, ANEU, ADIFF, CBC #### [address] [address] Basophils/100 WBC (Bld) 0.8 % Normal 0.0-2.5 [facility] Comment on above: Performed By: #### M ORPH, ANEU, ADIFF, CBC #### [address] [address] Eosinophil, Absolute 0.4 10 3/mcL Normal 0.0-0.7 [facility] Comment on above: Performed By: #### M ORPH, ANEU, ADIFF, CBC #### [address] [address] Eosinophils/100 WBC (Bld) 3.2 % Normal 0.0-6.0 [facility] Comment on above: Performed By: #### M ORPH, ANEU, ADIFF, CBC #### [address] [address] Lymphocyte, Absolute 1.9 10 3/mcL Normal 0.9-4.3 [facility] Comment on above: Performed By: #### M ORPH, ANEU, ADIFF, CBC #### [address] [address] Lymphocytes/100 WBC (Bld) 17.4 % Low 20.0-40.0 [facility] Comment on above: Performed By: #### M ORPH, ANEU, ADIFF, CBC #### [address] [address] Monocyte, Absolute 0.7 10 3/mcL Normal 0.1-1.4 [facility] Comment on above: Performed By: #### M ORPH, ANEU, ADIFF, CBC #### [address] [address] Monocytes/100 WBC (Bld) 6.0 % Normal 2.0-13.0 [facility] Comment on above: Performed By: #### M ORPH, ANEU, ADIFF, CBC #### [address] [address] Neutrophils/100 WBC (Bld) 72.6 % Normal 50.0-75.0 [facility] Comment on above: Performed By: #### M ORPH, ANEU, ADIFF, CBC #### [address] [place], [place] [address] .GFRon 02-26-2025 Estimated Glomerular Filtration Rate 61 ml/min/1.73sqm Normal [facility] Comment on above: Result Comment: Stages of Chronic Kidney Disease (CKD) Stage Description eGFR(ml/min/1.73 sq.m.) CKD 1 Normal kidney function or >=90 normal kindney function with possible kidney damage (ex. Proteinuria) CKD 2 Kidney damage with mild loss 60-89 of kidney function CKD 3a Mild to moderate loss of kidney 45-59 function CKD 3b Moderate to severe loss of 30-44 of kindey function CKD 4 Severe loss of kidney function 15-29 CKD 5 Kidney failure <15 Note: (go live 2024) the eGFR calculation was updated to the 2020 CKD-EPI creatinine equation without a race factor to calculate the eGFR results. Performed By: #### M ORPH, ANEU, ADIFF, CBC #### [address] [address] .NEUABSon 02-26-2025 Neutrophil, Absolute 8.1 10 3/mcL Normal 2.3-8.1 [facility] Comment on above: Performed By: #### M ORPH, ANEU, ADIFF, CBC #### [address] [place], [place] [address] BMPon 02-26-2025 BUN/Creatinine Ratio 21 ratio Normal 7-27 [facility] Comment on above: Performed By: #### M ORPH, ANEU, ADIFF, CBC #### [address] [place], [place] [address] Calcium [Mass/Vol] 8.9 mg/dL Normal 8.4-10.2 [facility] Comment on above: Performed By: #### M ORPH, ANEU, ADIFF, CBC #### [address] [place], [place] [address] Chloride [Moles/Vol] 109 mmol/L High 98-107 [facility] Comment on above: Performed By: #### M ORPH ANEU, ADIFF, CBC #### [address] [address] CO2 [Moles/Vol] 26 mmol/L Normal 23-31 [facility] Comment on above: Performed By: #### M ORPH ANEU, ADIFF, CBC #### [address] [address] Creatinine [Mass/Vol] 1.01 mg/dL High 0.51-0.95 [facility] Comment on above: Performed By: #### M ORPH ANEU, ADIFF, CBC #### [address] [address] Electrolyte Balance 10.0 mEq/L Normal 4.0-15.0 [facility] Comment on above: Performed By: #### M ORPH ANEU, ADIFF, CBC #### [address] [address] Glucose [Mass/Vol] 112 mg/dL Normal 80-115 [facility] Comment on above: Performed By: #### M ORPH ANEU, ADIFF, CBC #### [address] [address] Potassium [Moles/Vol] 3.8 mmol/L Normal 3.5-5.1 [facility] Comment on above: Performed By: #### M ORPH ANEU, ADIFF, CBC #### [address] [address] Sodium [Moles/Vol] 145 mmol/L Normal 136-145 [facility] Comment on above: Performed By: #### M ORPH ANEU, ADIFF, CBC #### [address] [address] Urea nitrogen [Mass/Vol] 21 mg/dL High 7-18 [facility] Comment on above: Performed By: #### M ORPH ANEU, ADIFF, CBC #### [address] [address] CBCon 02-26-2025 Erythrocyte distribution width (RBC) [Ratio] 17.7 % High 11.5-15.5 [facility] Comment on above: Order Comment: STAT Performed By: #### M ORPH, ANEU, ADIFF, CBC #### [address] [address] Hematocrit (Bld) [Volume fraction] 24.8 % Low 34.0-46.0 [facility] Comment on above: Order Comment: STAT Performed By: #### M ORPH, ANEU, ADIFF, CBC #### [address] [address] Hgb 8.2 G/dL Low 12.0-16.0 [facility] Comment on above: Order Comment: STAT Performed By: #### M ORPH, ANEU, ADIFF, CBC #### [address] [address] MCH (RBC) [Entitic mass] 32.7 pg Normal 27.0-33.0 [facility] Comment on above: Order Comment: STAT Performed By: #### M ORPH, ANEU, ADIFF, CBC #### [address] [address] MCHC 33.1 G/dL Normal 32.0-36.0 [facility] Comment on above: Order Comment: STAT Performed By: #### M ORPH, ANEU, ADIFF, CBC #### [address] [address] MCV (RBC) [Entitic vol] 98.7 fL Normal 80.0-99.0 [facility] Comment on above: Order Comment: STAT Performed By: #### M ORPH, ANEU, ADIFF, CBC #### [address] [address] Platelet 191 10 3/mcL Normal 150-450 [facility] Comment on above: Order Comment: STAT Performed By: #### M ORPH, ANEU, ADIFF, CBC #### [address] [place] [address] Platelet mean volume (Bld) [Entitic vol] 7.5 fL Normal 6.6-10.5 [facility] Comment on above: Order Comment: STAT Performed By: #### M ORPH, ANEU, ADIFF, CBC #### [address] [address] RBC 2.51 10 6/mcL Low 4.10-5.30 [facility] Comment on above: Order Comment: STAT Performed By: #### M ORPH, ANEU, ADIFF, CBC #### [address] [address] WBC 11.2 10 3/mcL High 4.5-10.8 [facility] Comment on above: Order Comment: STAT Performed By: #### M ORPH, ANEU, ADIFF, CBC #### [address] [address] LABORATORYOrdered By: SYSTEM SYSTEM on 02-26-2025 Basophils (Bld) [#/Vol] 0.1 103/mcL Normal 0.0 - 0.3 10^3/mcL AO Workflow SS Basophils/100 WBC (Bld) 0.8 % Normal 0.0 - 2.5 % AO Workflow SS Calcium [Mass/Vol] 8.9 mg/dL Normal 8.4 - 10. 2 mg/dL AO ADM SS Chloride [Moles/Vol] 109 mmol/L High 98 - 10 7 mmol/L AO ADM SS CO2 [Moles/Vol] 26 mmol/L Normal 23 - 31 mmol/L AO ADM SS Creatinine [Mass/Vol] 1.01 mg/dL High 0.51 - 0.95 mg/dL AO ADM SS Electrolyte Balance 10.0 mEq/L Normal 4.0 - 15 .0 mEq/L AO ADM SS Eosinophil, Absolute 0.4 103/mcL Normal 0.0 - 0 .7 10^3/mcL AO Workflow SS Eosinophils/100 WBC (Bld) 3.2 % Normal 0.0 - 6.0 % AO Workflow SS Erythrocyte distribution width (RBC) [Ratio] 17.7 % High 11.5 - 15.5 % AO Workflow SS Estimated Glomerular Filtration Rate 61 ml/min/1.73sqm Invalid Interpretation Code AO Chemistry S Comment on above: Interpretive Data: Stages of Chronic Kidney Disease (CKD) Stage Description eGFR(ml/min/1.73 sq.m.) CKD 1 Normal kidney function or >=90 normal kindney function with possible kidney damage (ex. Proteinuria) CKD 2 Kidney damage with mild loss 60-89 of kidney function CKD 3a Mild to moderate loss of kidney 45-59 function CKD 3b Moderate to severe loss of 30-44 of kindey function CKD 4 Severe loss of kidney function 15-29 CKD 5 Kidney failure <15 Note: (go live 2024) the eGFR calculation was updated to the 2020 CKD-EPI creatinine equation without a race factor to calculate the eGFR results. Glucose [Mass/Vol] 112 mg/dL Normal 80 - 115 mg/dL AO ADM SS Hematocrit (Bld) [Volume fraction] 24.8 % Low 34.0 - 46.0 % AO Workflow SS Hemoglobin (Bld) [Mass/Vol] 8.2 G/dL Low 12.0 - 16.0 G/dL AO Workflow SS Lymphocytes (Bld) [#/Vol] 1.9 103/mcL Normal 0.9 - 4.3 10^3/mcL AO Workflow SS Lymphocytes/100 WBC (Bld) 17.4 % Low 20.0 - 40.0 % AO Workflow SS Magnesium [Mass/Vol] 1.7 mg/dL Low 1.8 - 2 .4 mg/dL AO ADM SS MCH (RBC) [Entitic mass] 32.7 pg Normal 27. 0 - 33.0 pg AO Workflow SS MCHC 33.1 G/dL Normal 32.0 - 36.0 G/dL AO Workflow SS MCV (RBC) [Entitic vol] 98.7 fL Normal 80.0 - 99.0 fL AO Workflow SS Monocytes (Bld) [#/Vol] 0.7 103/mcL Normal 0.1 - 1.4 10^3/mcL AO Workflow SS Monocytes/100 WBC (Bld) 6.0 % Normal 2.0 - 13.0 % AO Workflow SS Neutrophils (Bld) [#/Vol] 8.1 103/mcL Normal 2.3 - 8.1 10^3/mcL AO Workflow SS Neutrophils/100 WBC (Bld) 72.6 % Normal 50.0 - 75.0 % AO Workflow SS Platelet mean volume (Bld) [Entitic vol] 7.5 fL Normal 6.6 - 10.5 fL AO Workflow SS Platelets (Bld) [#/Vol] 191 103/mcL Normal 150 - 450 10^3/mcL AO Workflow SS Potassium [Moles/Vol] 3.8 mmol/L Normal 3.5 - 5.1 mmol/L AO ADM SS RBC (Bld) [#/Vol] 2.51 106/mcL Low 4.10 - 5.3 0 10^6/mcL AO Workflow SS Sodium [Moles/Vol] 145 mmol/L Normal 136 - 145 mmol/L AO ADM SS Urea nitrogen [Mass/Vol] 21 mg/dL High 7 - 18 mg/dL AO ADM SS Urea nitrogen/Creatinine [Mass ratio] 21 ratio Normal 7 - 27 ratio AO ADM SS WBC (Bld) [#/Vol] 11.2 103/mcL High 4.5 - 10.8 10^3/mcL AO Workflow SS MGon 02-26-2025 Magnesium [Mass/Vol] 1.7 mg/dL Low 1.8-2.4 [facility] Comment on above: Performed By: #### M ORPH, KELIN, SO, CBC #### [address] [address] Absolute lymphocyte countOrd ered By: Josh Peñaloza on 02-22-2025 Lymphocytes Auto (Unsp spec) [#/Vol] 1.33 10*3/uL 0.83-4.51 [facility] Absolute neutrophil countOrd ered By: Josh Peñaloza on 02-22-2025 Neutrophils (Bld) [#/Vol] 10.6 10*3/uL High 2.0-7.7 [facility] Anion gap in Serum or Plasma Ordered By: Josh Peñaloza on 02-22-2025 Anion gap [Moles/Vol] 11 mmol/L 5-15 [facility] Automated lymphocyte count a s percentage of total leukocytesOrdered By: Josh Peñaloza on 02-22-2025 Lymphocytes/100 WBC Auto (Unsp spec) 10.6 % Low 19-41 [facility] BUN/creatinine ratioOrdered By: Josh Peñaloza on 02-22-2025 Urea nitrogen/Creatinine [Mass ratio] 16.7 mg/mg 10-20 [facility] Basic Metabolic Profile (BMP )on 02-22-2025 BUN/CRE 16.7 RATIO Normal 10-20 [facility] Comment on above: Performed By: #### L 100.0100, L500.2500 ####[facility] [address] [place], [address] Calcium [Mass/Vol] 8.5 mg/dL Normal 7.6-11.0 [facility] Comment on above: Performed By: #### L 100.0100, L500.2500 ####[facility] [address] [place], [address] Chloride [Moles/Vol] 109 mmol/L High 98-108 [facility] Comment on above: Performed By: #### L 100.0100, L500.2500 ####[facility] [address] [place], [address] CO2 [Moles/Vol] 20.4 mmol/L Low 21.0-32.0 [facility] Comment on above: Performed By: #### L 100.0100, L500.2500 ####[facility] [address] [place], [address] Creatinine [Mass/Vol] 1.14 mg/dL Normal 0.70-1.20 [facility] Comment on above: Performed By: #### L 100.0100, L500.2500 ####[facility] [address] [place], [address] ECRCL 47.21 ml/min Low 50-250 [facility] Comment on above: Performed By: #### L 100.0100, L500.2500 ####[facility] [address] [place], [address] GAP 11 Normal 5-15 [facility] Comment on above: Performed By: #### L 100.0100, L500.2500 ####[facility] [address] [place], [address] GFR/1.73 sq M.predicted among non-blacks MDRD (S/P/Bld) [Vol rate/Area] 53 mL/min/{1.73_m2} Low >60 [facility] Comment on above: Result Comment: mL/m in/1.73m2 CKD-EPI Creatinine Equation (2020) Performed By: #### L 100.0100, L500.2500 ####[facility] [address] [place], [address] Glucose [Mass/Vol] 96 mg/dL Normal 70-99 [facility] Comment on above: Performed By: #### L 100.0100, L500.2500 ####[facility] [address] [place], [address] Potassium [Moles/Vol] 3.6 mmol/L Normal 3.3-5.1 [facility] Comment on above: Performed By: #### L 100.0100, L500.2500 ####[facility] [address] [place], [address] Sodium [Moles/Vol] 140 mmol/L Normal 133-145 [facility] Comment on above: Performed By: #### L 100.0100, L500.2500 ####[facility] [address] [place], [address] Urea nitrogen [Mass/Vol] 19 mg/dL Normal 4-19 [facility] Comment on above: Performed By: #### L 100.0100, L500.2500 ####[facility] [address] [place], [address] Basophil percentageOrdered B y: Josh Peñaloza on 02-22-2025 Basophils/100 WBC (Bld) 0.3 % 0-[address] [facility] CBC W/Diff, Automatedon 05 Absolute Lymph 1.33 X10 3/uL Normal 0.83-4.51 [facility] Comment on above: Performed By: #### L 100.0100, L500.2500 ####[facility] [address] [place], [address] Absolute Neut 10.6 X10 3/uL High 2.0-7.7 [facility] Comment on above: Performed By: #### L 100.0100, L500.2500 ####[facility] [address] [place], [address] Basophils/100 WBC (Bld) 0.3 % Normal 0-[address] [facility] Comment on above: Performed By: #### L 100.0100, L500.2500 ####[facility] [address] [place], [address] Eosinophils/100 WBC (Bld) 0.4 % Normal 0-5 [facility] Comment on above: Performed By: #### L 100.0100, L500.2500 ####[facility] [address] [place], [address] Erythrocyte distribution width (RBC) [Ratio] 16.0 % High 11.6-14.6 [facility] Comment on above: Performed By: #### L 100.0100, L500.2500 ####[facility] [address] [place], [address] Hematocrit (Bld) [Volume fraction] 23.9 % Low 37-47 [facility] Comment on above: Performed By: #### L 100.0100, L500.2500 ####[facility] [address] [place], [address] Hemoglobin (Bld) [Mass/Vol] 7.7 g/dL Low 12.0-15.0 [facility] Comment on above: Performed By: #### L 100.0100, L500.2500 ####[facility] [address] [place], [address] IG% 0.500 Normal 0.0-0.9 [facility] Comment on above: Result Comment: IG% - Immature Granulocytes (promyelocytes, myelocytes andmetamyelocytes) > 1% indicates that a LEFT SHIFT is Present. Performed By: #### L 100.0100, L500.2500 ####[facility] [address] [place], [address] Lymphocytes/100 WBC (Bld) 10.6 % Low 19-41 [facility] Comment on above: Performed By: #### L 100.0100, L500.2500 ####[facility] [address] [place], [address] MCH (RBC) [Entitic mass] 32.0 pg Normal 27.0-32.0 [facility] Comment on above: Performed By: #### L 100.0100, L500.2500 ####[facility] [address] [place], [address] MCHC (RBC) [Mass/Vol] 32.2 g/dL Normal 32-36 [facility] Comment on above: Performed By: #### L 100.0100, L500.2500 ####[facility] [address] [place], [address] MCV (RBC) [Entitic vol] 99.2 fL High 81-[address] [facility] Comment on above: Performed By: #### L 100.0100, L500.2500 ####[facility] [address] [place], [address] Monocytes/100 WBC (Bld) 4.0 % Normal 0-[address] [facility] Comment on above: Performed By: #### L 100.0100, L500.2500 ####[facility] [address] [place], [address] Neutrophils/100 WBC (Bld) 84.2 % High 47-70 [facility] Comment on above: Performed By: #### L 100.0100, L500.2500 ####[facility] [address] [place], [address] Nucleated RBC (Bld) [#/Vol] 0 10*3/uL Normal 0-5 [facility] Comment on above: Performed By: #### L 100.0100, L500.2500 ####[facility] [address] [place], [address] Platelet mean volume (Bld) [Entitic vol] 10.5 fL Normal 6.2-12.0 [facility] Comment on above: Performed By: #### L 100.0100, L500.2500 ####[facility] [address] [place], [address] Platelets (Bld) [#/Vol] 161 10*3/uL Normal 150-450 [facility] Comment on above: Performed By: #### L 100.0100, L500.2500 ####[facility] [address] [place], [address] RBC (Bld) [#/Vol] 2.41 10*6/uL Low 4.2-5.4 [facility] Comment on above: Performed By: #### L 100.0100, L500.2500 ####[facility] [address] [place], [address] RDW SD 57.8 fl High 35.1-43.9 [facility] Comment on above: Performed By: #### L 100.0100, L500.2500 ####[facility] [address] [place], [address] WBC (Bld) [#/Vol] 12.5 10*3/uL High 4.4-11.0 [facility] Comment on above: Performed By: #### L 100.0100, L500.2500 ####[facility] [address] [place], [address] Carbon dioxide, total [Moles /volume] in Central venous bloodOrdered By: Josh Peñaloza on 02-22-2025 CO2 [Moles/Vol] 20.4 mmol/L Low 21.0-32.0 [facility] Chloride assayOrdered By: Huy Peñaloza on 02-22-2025 Chloride [Moles/Vol] 109 mmol/L High 98-108 [facility] Eosinophil percentageOrdered By: Josh Peñaloza on 02-22-2025 Eosinophils/100 WBC (Bld) 0.4 % 0-5 [facility] Erythrocyte distribution wid th ratioOrdered By: Josh Peñaloza on 02-22-2025 Erythrocyte distribution width (RBC) [Ratio] 16.0 % High 11.6-14.6 [facility] Erythrocyte distribution wid th standard deviationOrdered By: Josh Peñaloza on 02-22-2025 Erythrocyte distribution width (RBC) [Ratio] 57.8 fl High 35.1-43.9 [facility] Glomerular filtration rate ( GFR) estimation/1.73 sq m using serum, plasma, or whole bOrdered By: Josh Peñaloza on 02-22-2025 GFR/1.73 sq M.predicted among non-blacks MDRD (S/P/Bld) [Vol rate/Area] 53 mL/min/{1.73_m2} Low >60 [facility] Comment on above: mL/min/1.73m2 CKD-EP I Creatinine Equation (2020) Hematocrit Auto (Bld) [Volum e fraction]Ordered By: Josh Peñaloza on 02-22-2025 Hematocrit (Bld) [Volume fraction] 23.9 % Low 37-47 [facility] Hemoglobin measurementOrdere d By: Josh Peñaloza on 02-22-2025 Hemoglobin (Bld) [Mass/Vol] 7.7 g/dL Low 12.0-15.0 [facility] Immature granulocytes/100 WB C Auto (Bld)Ordered By: Josh Peñaloza on 02-22-2025 Immature granulocytes/100 WBC (Bld) 0.500 % 0.0-0.9 [facility] Comment on above: IG% - Immature Granu locytes (promyelocytes, myelocytes and metamyelocytes) > 1% indicates that a LEFT SHIFT is Present. MCV (mean corpuscular volume ) determinationOrdered By: Josh Peñaloza on 02-22-2025 MCV (RBC) [Entitic vol] 99.2 fL High 81-[address] [facility] Mean corpuscular hemoglobin (MCH) determinationOrdered By: Josh Peñaloza on 02-22-2025 MCH (RBC) [Entitic mass] 32.0 pg 27.0-32.0 [facility] Mean corpuscular hemoglobin concentration (MCHC) determinationOrdered By: Josh Peñaloza on 02-22-2025 MCHC (RBC) [Mass/Vol] 32.2 g/dL 32-36 [facility] Mean platelet volume determi nationOrdered By: Josh Peñaloza on 02-22-2025 Platelet mean volume (Bld) [Entitic vol] 10.5 fL 6.2-12.0 [facility] Monocyte percentageOrdered B y: Josh Peñaloza on 02-22-2025 Monocytes/100 WBC (Bld) 4.0 % 0-[address] [facility] Neutrophil percentageOrdered By: Josh Peñaloza on 02-22-2025 Neutrophils/100 WBC (Bld) 84.2 % High 47-70 [facility] Nucleated red blood cell per centageOrdered By: Josh Peñaloza on 02-22-2025 Nucleated RBC/100 WBC (Bld) [Ratio] 0 % 0-5 [facility] Platelet countOrdered By: Huy Peñaloza on 02-22-2025 Platelets (Bld) [#/Vol] 161 10*3/uL 150-450 [facility] Potassium measurement (mass/ volume)Ordered By: Josh Peñaloza on 02-22-2025 Potassium (Unsp spec) [Mass/Vol] 3.6 mmol/L 3.3-5.1 [facility] RBC Auto (Bld) [#/Vol]Ordere d By: Josh Peñaloza on 02-22-2025 RBC (Bld) [#/Vol] 2.41 10*6/uL Low 4.2-5.4 [facility] Serum creatinine measurement (mass/volume)Ordered By: Josh Peñaloza on 02-22-2025 Creatinine [Mass/Vol] 1.14 mg/dL 0.70-1.20 [facility] Serum glucose measurement (m ass/volume)Ordered By: Josh Peñaloza on 02-22-2025 Glucose [Mass/Vol] 96 mg/dL 70-99 [facility] Serum or plasma calcium rosalina urement (mass/volume)Ordered By: Josh Peñaloza on 02-22-2025 Calcium [Mass/Vol] 8.5 mg/dL 7.6-11.0 [facility] Serum or plasma urea nitroge n measurement (mass/volume)Ordered By: Josh Peñaloza on 02-22-2025 Urea nitrogen [Mass/Vol] 19 mg/dL 4-19 [facility] Sodium levelOrdered By: Loc Peñaloza on 02-22-2025 Sodium [Moles/Vol] 140 mmol/L 133-145 [facility] White blood cell (WBC) count Ordered By: Josh Peñaloza on 02-22-2025 WBC (Bld) [#/Vol] 12.5 10*3/uL High 4.4-11.0 [facility] Basic Metabolic Profile (BMP )on 02-21-2025 BUN/CRE 18.7 RATIO Normal 10-20 [facility] Comment on above: Performed By: #### L 100.0100, L500.2500 ####[facility] [address] [place], [address] Calcium [Mass/Vol] 9.1 mg/dL Normal 7.6-11.0 [facility] Comment on above: Performed By: #### L 100.0100, L500.2500 ####[facility] [address] [place], [address] Chloride [Moles/Vol] 108 mmol/L Normal 98-108 [facility] Comment on above: Performed By: #### L 100.0100, L500.2500 ####[facility] [address] [place], [address] CO2 [Moles/Vol] 20.1 mmol/L Low 21.0-32.0 [facility] Comment on above: Performed By: #### L 100.0100, L500.2500 ####[facility] [address] [place], [address] Creatinine [Mass/Vol] 1.16 mg/dL Normal 0.70-1.20 [facility] Comment on above: Performed By: #### L 100.0100, L500.2500 ####[facility] [address] [place], [address] ECRCL 46.39 ml/min Low 50-250 [facility] Comment on above: Performed By: #### L 100.0100, L500.2500 ####[facility] [address] [place], [address] GAP 12 Normal 5-15 [facility] Comment on above: Performed By: #### L 100.0100, L500.2500 ####[facility] [address] [place], [address] GFR/1.73 sq M.predicted among non-blacks MDRD (S/P/Bld) [Vol rate/Area] 52 mL/min/{1.73_m2} Low >60 [facility] Comment on above: Result Comment: mL/m in/1.73m2 CKD-EPI Creatinine Equation (2020) Performed By: #### L 100.0100, L500.2500 ####[facility] [address] [place], [address] Glucose [Mass/Vol] 93 mg/dL Normal 70-99 [facility] Comment on above: Performed By: #### L 100.0100, L500.2500 ####[facility] [address] [place], [address] Potassium [Moles/Vol] 3.6 mmol/L Normal 3.3-5.1 [facility] Comment on above: Performed By: #### L 100.0100, L500.2500 ####[facility] [address] [place], [address] Sodium [Moles/Vol] 141 mmol/L Normal 133-145 [facility] Comment on above: Performed By: #### L 100.0100, L500.2500 ####[facility] [address] [place], [address] Urea nitrogen [Mass/Vol] 22 mg/dL High 4-19 [facility] Comment on above: Performed By: #### L 100.0100, L500.2500 ####[facility] [address] [place], [address] CBC W/Diff, Automatedon 05-0 1-2024 Absolute Lymph 2.19 X10 3/uL Normal 0.83-4.51 [facility] Comment on above: Performed By: #### L 100.0100, L500.2500 ####[facility] [address] [place], [address] Absolute Neut 7.7 X10 3/uL Normal 2.0-7.7 [facility] Comment on above: Performed By: #### L 100.0100, L500.2500 ####[facility] [address] [place], [address] Basophils/100 WBC (Bld) 0.8 % Normal 0-[address] [facility] Comment on above: Performed By: #### L 100.0100, L500.2500 ####[facility] [address] [place], [address] Eosinophils/100 WBC (Bld) 0.5 % Normal 0-5 [facility] Comment on above: Performed By: #### L 100.0100, L500.2500 ####[facility] [address] [place], [address] Erythrocyte distribution width (RBC) [Ratio] 15.8 % High 11.6-14.6 [facility] Comment on above: Performed By: #### L 100.0100, L500.2500 ####[facility] [address] [place], [address] Hematocrit (Bld) [Volume fraction] 23.9 % Low 37-47 [facility] Comment on above: Performed By: #### L 100.0100, L500.2500 ####[facility] [address] [place], [address] Hemoglobin (Bld) [Mass/Vol] 7.8 g/dL Low 12.0-15.0 [facility] Comment on above: Performed By: #### L 100.0100, L500.2500 ####[facility] [address] [place], [address] IG% 0.400 Normal 0.0-0.9 [facility] Comment on above: Result Comment: IG% - Immature Granulocytes (promyelocytes, myelocytes andmetamyelocytes) > 1% indicates that a LEFT SHIFT is Present. Performed By: #### L 100.0100, L500.2500 ####[facility] [address] [place], [address] Lymphocytes/100 WBC (Bld) 20.7 % Normal 19-41 [facility] Comment on above: Performed By: #### L 100.0100, L500.2500 ####[facility] [address] [place], [address] MCH (RBC) [Entitic mass] 32.1 pg High 27.0-32.0 [facility] Comment on above: Performed By: #### L 100.0100, L500.2500 ####[facility] [address] [place], [address] MCHC (RBC) [Mass/Vol] 32.6 g/dL Normal 32-36 [facility] Comment on above: Performed By: #### L 100.0100, L500.2500 ####[facility] [address] [place], [address] MCV (RBC) [Entitic vol] 98.4 fL Normal 81-[address] [facility] Comment on above: Performed By: #### L 100.0100, L500.2500 ####[facility] [address] [place], [address] Monocytes/100 WBC (Bld) 4.7 % Normal 0-[address] [facility] Comment on above: Performed By: #### L 100.0100, L500.2500 ####[facility] [address] [place], [address] Neutrophils/100 WBC (Bld) 72.9 % High 47-70 [facility] Comment on above: Performed By: #### L 100.0100, L500.2500 ####[facility] [address] [place], [address] Nucleated RBC (Bld) [#/Vol] 0 10*3/uL Normal 0-5 [facility] Comment on above: Performed By: #### L 100.0100, L500.2500 ####[facility] [address] [place], [address] Platelet mean volume (Bld) [Entitic vol] 10.2 fL Normal 6.2-12.0 [facility] Comment on above: Performed By: #### L 100.0100, L500.2500 ####[facility] [address] [place], [address] Platelets (Bld) [#/Vol] 199 10*3/uL Normal 150-450 [facility] Comment on above: Performed By: #### L 100.0100, L500.2500 ####[facility] [address] [place], [address] RBC (Bld) [#/Vol] 2.43 10*6/uL Low 4.2-5.4 [facility] Comment on above: Performed By: #### L 100.0100, L500.2500 ####[facility] [address] [place], [address] RDW SD 56.3 fl High 35.1-43.9 [facility] Comment on above: Performed By: #### L 100.0100, L500.2500 ####[facility] [address] [place], [address] WBC (Bld) [#/Vol] 10.6 10*3/uL Normal 4.4-11.0 [facility] Comment on above: Performed By: #### L 100.0100, L500.2500 ####[facility] [address] [place], [address] Colonoscopy Reporton 025 Colonoscopy Report Normal [facility] MR/POSTOP.ANEon 02-21-2025 MR/POSTOP.ANE Normal [facility] Surgery Specimen Level Nabila 02-21-2025 Surgery Specimen Level IV Normal [facility] Comment on above: Performed By: #### P SUIV ####[facility] [address] [place], [address] Basic Metabolic Profile (BMP )on 02-20-2025 BUN/CRE 18.8 RATIO Normal 10-20 [facility] Comment on above: Performed By: #### L 501.2300, L100.0100, L501.5200, L500.2500 ####[facility] [address] [place], [address] Calcium [Mass/Vol] 9.5 mg/dL Normal 7.6-11.0 [facility] Comment on above: Performed By: #### L 501.2300, L100.0100, L501.5200, L500.2500 ####[facility] [address] [place], [address] Chloride [Moles/Vol] 106 mmol/L Normal 98-108 [facility] Comment on above: Performed By: #### L 501.2300, L100.0100, L501.5200, L500.2500 ####[facility] [address] [place], [address] CO2 [Moles/Vol] 19.7 mmol/L Low 21.0-32.0 [facility] Comment on above: Performed By: #### L 501.2300, L100.0100, L501.5200, L500.2500 ####[facility] [address] [place], [address] Creatinine [Mass/Vol] 1.16 mg/dL Normal 0.70-1.20 [facility] Comment on above: Performed By: #### L 501.2300, L100.0100, L501.5200, L500.2500 ####[facility] [address] [place], [address] ECRCL 46.39 ml/min Low 50-250 [facility] Comment on above: Performed By: #### L 501.2300, L100.0100, L501.5200, L500.2500 ####[facility] [address] [place], [address] GAP 13 Normal 5-15 [facility] Comment on above: Performed By: #### L 501.2300, L100.0100, L501.5200, L500.2500 ####[facility] [address] [place], [address] GFR/1.73 sq M.predicted among non-blacks MDRD (S/P/Bld) [Vol rate/Area] 52 mL/min/{1.73_m2} Low >60 [facility] Comment on above: Result Comment: mL/m in/1.73m2 CKD-EPI Creatinine Equation (2020) Performed By: #### L 501.2300, L100.0100, L501.5200, L500.2500 ####[facility] [address] [place], [address] Glucose [Mass/Vol] 146 mg/dL High 70-99 [facility] Comment on above: Performed By: #### L 501.2300, L100.0100, L501.5200, L500.2500 ####[facility] [address] [place], [address] Potassium [Moles/Vol] 4.4 mmol/L Normal 3.3-5.1 [facility] Comment on above: Performed By: #### L 501.2300, L100.0100, L501.5200, L500.2500 ####[facility] [address] [place], [address] Sodium [Moles/Vol] 139 mmol/L Normal 133-145 [facility] Comment on above: Performed By: #### L 501.2300, L100.0100, L501.5200, L500.2500 ####[facility] [address] [place], [address] Urea nitrogen [Mass/Vol] 22 mg/dL High 4-19 [facility] Comment on above: Performed By: #### L 501.2300, L100.0100, L501.5200, L500.2500 ####[facility] [address] [place], [address] CBC W/Diff, Automatedon 04-3 0-2024 Absolute Lymph 0.55 X10 3/uL Low 0.83-4.51 [facility] Comment on above: Performed By: #### L 501.2300, L100.0100, L501.5200, L500.2500 ####[facility] [address] [place], [address] Absolute Neut 6.4 X10 3/uL Normal 2.0-7.7 [facility] Comment on above: Performed By: #### L 501.2300, L100.0100, L501.5200, L500.2500 ####[facility] [address] [place], [address] Basophils/100 WBC (Bld) 0.1 % Normal 0-[address] [facility] Comment on above: Performed By: #### L 501.2300, L100.0100, L501.5200, L500.2500 ####[facility] [address] [place], [address] Eosinophils/100 WBC (Bld) 0.0 % Normal 0-5 [facility] Comment on above: Performed By: #### L 501.2300, L100.0100, L501.5200, L500.2500 ####[facility] [address] [place], [address] Erythrocyte distribution width (RBC) [Ratio] 15.3 % High 11.6-14.6 [facility] Comment on above: Performed By: #### L 501.2300, L100.0100, L501.5200, L500.2500 ####[facility] [address] [place], [address] Hematocrit (Bld) [Volume fraction] 26.6 % Low 37-47 [facility] Comment on above: Performed By: #### L 501.2300, L100.0100, L501.5200, L500.2500 ####[facility] [address] [place], [address] Hemoglobin (Bld) [Mass/Vol] 8.7 g/dL Low 12.0-15.0 [facility] Comment on above: Performed By: #### L 501.2300, L100.0100, L501.5200, L500.2500 ####[facility] [address] [place], [address] IG% 0.100 Normal 0.0-0.9 [facility] Comment on above: Result Comment: IG% - Immature Granulocytes (promyelocytes, myelocytes andmetamyelocytes) > 1% indicates that a LEFT SHIFT is Present. Performed By: #### L 501.2300, L100.0100, L501.5200, L500.2500 ####[facility] [address] [place], [address] Lymphocytes/100 WBC (Bld) 7.8 % Low 19-41 [facility] Comment on above: Performed By: #### L 501.2300, L100.0100, L501.5200, L500.2500 ####[facility] [address] [place], [address] MCH (RBC) [Entitic mass] 32.0 pg Normal 27.0-32.0 [facility] Comment on above: Performed By: #### L 501.2300, L100.0100, L501.5200, L500.2500 ####[facility] [address] [place], [address] MCHC (RBC) [Mass/Vol] 32.7 g/dL Normal 32-36 [facility] Comment on above: Performed By: #### L 501.2300, L100.0100, L501.5200, L500.2500 ####[facility] [address] [place], [address] MCV (RBC) [Entitic vol] 97.8 fL Normal 81-99 [facility] Comment on above: Performed By: #### L 501.2300, L100.0100, L501.5200, L500.2500 ####[facility] [address] [place], [address] Monocytes/100 WBC (Bld) 1.7 % Normal 0-[address] [facility] Comment on above: Performed By: #### L 501.2300, L100.0100, L501.5200, L500.2500 ####[facility] [address] [place], [address] Neutrophils/100 WBC (Bld) 90.3 % High 47-70 [facility] Comment on above: Performed By: #### L 501.2300, L100.0100, L501.5200, L500.2500 ####[facility] [address] [place], [address] Nucleated RBC (Bld) [#/Vol] 0 10*3/uL Normal 0-5 [facility] Comment on above: Performed By: #### L 501.2300, L100.0100, L501.5200, L500.2500 ####[facility] [address] [place], [address] Platelet mean volume (Bld) [Entitic vol] 10.2 fL Normal 6.2-12.0 [facility] Comment on above: Performed By: #### L 501.2300, L100.0100, L501.5200, L500.2500 ####[facility] [address] [place], [address] Platelets (Bld) [#/Vol] 230 10*3/uL Normal 150-450 [facility] Comment on above: Performed By: #### L 501.2300, L100.0100, L501.5200, L500.2500 ####[facility] [address] [place], [address] RBC (Bld) [#/Vol] 2.72 10*6/uL Low 4.2-5.4 [facility] Comment on above: Performed By: #### L 501.2300, L100.0100, L501.5200, L500.2500 ####[facility] [address] [place], [address] RDW SD 54.4 fl High 35.1-43.9 [facility] Comment on above: Performed By: #### L 501.2300, L100.0100, L501.5200, L500.2500 ####[facility] [address] [place], [address] WBC (Bld) [#/Vol] 7.1 10*3/uL Normal 4.4-11.0 [facility] Comment on above: Performed By: #### L 501.2300, L100.0100, L501.5200, L500.2500 ####[facility] [address] [place], [address] Colonoscopy Reporton 025 Colonoscopy Report Normal [facility] MR/POSTOP.ANEon 02-20-2025 MR/POSTOP.ANE Normal [facility] MR/OLOTBBCY2fg 02-20-2025 MR/POSTOPAN2 Normal [facility] Magnesiumon 02-20-2025 Magnesium [Mass/Vol] 2.2 mg/dL Normal 1.5-2.2 [facility] Comment on above: Performed By: #### L 501.2300, L100.0100, L501.5200, L500.2500 ####[facility] [address] [place], [address] Magnesium measurement (mass/ volume)Ordered By: Josh Peñaloza on 02-20-2025 Magnesium (Unsp spec) [Mass/Vol] 2.2 mg/dL 1.5-2.2 [facility] Phosphoruson 02-20-2025 Phosphate [Mass/Vol] 4.2 mg/dL Normal 2.7-4.5 [facility] Comment on above: Performed By: #### L 501.2300, L100.0100, L501.5200, L500.2500 ####[facility] [address] [place], [address] Basic Metabolic Profile (BMP )on 02-19-2025 BUN/CRE 15.7 RATIO Normal 10-20 [facility] Comment on above: Performed By: #### L 100.0100, L500.2500 ####[facility] [address] [place], [address] Calcium [Mass/Vol] 9.3 mg/dL Normal 7.6-11.0 [facility] Comment on above: Performed By: #### L 100.0100, L500.2500 ####[facility] [address] [place], [address] Chloride [Moles/Vol] 108 mmol/L Normal 98-108 [facility] Comment on above: Performed By: #### L 100.0100, L500.2500 ####[facility] [address] [place], [address] CO2 [Moles/Vol] 21.8 mmol/L Normal 21.0-32.0 [facility] Comment on above: Performed By: #### L 100.0100, L500.2500 ####[facility] [address] [place], [address] Creatinine [Mass/Vol] 1.14 mg/dL Normal 0.70-1.20 [facility] Comment on above: Performed By: #### L 100.0100, L500.2500 ####[facility] [address] [place], [address] ECRCL 47.21 ml/min Low 50-250 [facility] Comment on above: Performed By: #### L 100.0100, L500.2500 ####[facility] [address] [place], [address] GAP 12 Normal 5-15 [facility] Comment on above: Performed By: #### L 100.0100, L500.2500 ####[facility] [address] [place], [address] GFR/1.73 sq M.predicted among non-blacks MDRD (S/P/Bld) [Vol rate/Area] 53 mL/min/{1.73_m2} Low >60 [facility] Comment on above: Result Comment: mL/m in/1.73m2 CKD-EPI Creatinine Equation (2020) Performed By: #### L 100.0100, L500.2500 ####[facility] [address] [place], [address] Glucose [Mass/Vol] 88 mg/dL Normal 70-99 [facility] Comment on above: Performed By: #### L 100.0100, L500.2500 ####[facility] [address] [place], [address] Potassium [Moles/Vol] 4.1 mmol/L Normal 3.3-5.1 [facility] Comment on above: Performed By: #### L 100.0100, L500.2500 ####[facility] [address] [place], [address] Sodium [Moles/Vol] 142 mmol/L Normal 133-145 [facility] Comment on above: Performed By: #### L 100.0100, L500.2500 ####[facility] [address] [place], [address] Urea nitrogen [Mass/Vol] 18 mg/dL Normal 4-19 [facility] Comment on above: Performed By: #### L 100.0100, L500.2500 ####[facility] [address] [place], [address] Bedside Glucoseon 02-19-2025 FINGERSTICK GLU 87 mg/dL Normal 74-106 [facility] Comment on above: Result Comment: TIMOTHY HUGHES OF PATIENT CARE PER NURSING PROTOCOL Performed By: #### L 501.080 ####[facility] [address] [place], [address] CBC W/Diff, Automatedon 04-2 Absolute Lymph 1.39 X10 3/uL Normal 0.83-4.51 [facility] Comment on above: Performed By: #### L 100.0100, L500.2500 ####[facility] [address] [place], [address] Absolute Neut 6.7 X10 3/uL Normal 2.0-7.7 [facility] Comment on above: Performed By: #### L 100.0100, L500.2500 ####[facility] [address] [place], [address] Basophils/100 WBC (Bld) 1.0 % Normal 0-[address] [facility] Comment on above: Performed By: #### L 100.0100, L500.2500 ####[facility] [address] [place], [address] Eosinophils/100 WBC (Bld) 2.8 % Normal 0-5 [facility] Comment on above: Performed By: #### L 100.0100, L500.2500 ####[facility] [address] [place], [address] Erythrocyte distribution width (RBC) [Ratio] 15.6 % High 11.6-14.6 [facility] Comment on above: Performed By: #### L 100.0100, L500.2500 ####[facility] [address] [place], [address] Hematocrit (Bld) [Volume fraction] 27.3 % Low 37-47 [facility] Comment on above: Performed By: #### L 100.0100, L500.2500 ####[facility] [address] [place], [address] Hemoglobin (Bld) [Mass/Vol] 8.8 g/dL Low 12.0-15.0 [facility] Comment on above: Performed By: #### L 100.0100, L500.2500 ####[facility] [address] [place], [address] IG% 0.300 Normal 0.0-0.9 [facility] Comment on above: Result Comment: IG% - Immature Granulocytes (promyelocytes, myelocytes andmetamyelocytes) > 1% indicates that a LEFT SHIFT is Present. Performed By: #### L 100.0100, L500.2500 ####[facility] [address] [place], [address] Lymphocytes/100 WBC (Bld) 15.8 % Low 19-41 [facility] Comment on above: Performed By: #### L 100.0100, L500.2500 ####[facility] [address] [place], [address] MCH (RBC) [Entitic mass] 32.2 pg High 27.0-32.0 [facility] Comment on above: Performed By: #### L 100.0100, L500.2500 ####[facility] [address] [place], [address] MCHC (RBC) [Mass/Vol] 32.2 g/dL Normal 32-36 [facility] Comment on above: Performed By: #### L 100.0100, L500.2500 ####[facility] [address] [place], [address] MCV (RBC) [Entitic vol] 100.0 fL High 81-[address] [facility] Comment on above: Performed By: #### L 100.0100, L500.2500 ####[facility] [address] [place], [address] Monocytes/100 WBC (Bld) 4.4 % Normal 0-[address] [facility] Comment on above: Performed By: #### L 100.0100, L500.2500 ####[facility] [address] [place], [address] Neutrophils/100 WBC (Bld) 75.7 % High 47-70 [facility] Comment on above: Performed By: #### L 100.0100, L500.2500 ####[facility] [address] [place], [address] Nucleated RBC (Bld) [#/Vol] 0 10*3/uL Normal 0-5 [facility] Comment on above: Performed By: #### L 100.0100, L500.2500 ####[facility] [address] [place], [address] Platelet mean volume (Bld) [Entitic vol] 9.6 fL Normal 6.2-12.0 [facility] Comment on above: Performed By: #### L 100.0100, L500.2500 ####[facility] [address] [place], [address] Platelets (Bld) [#/Vol] 205 10*3/uL Normal 150-450 [facility] Comment on above: Performed By: #### L 100.0100, L500.2500 ####[facility] [address] [place], [address] RBC (Bld) [#/Vol] 2.73 10*6/uL Low 4.2-5.4 [facility] Comment on above: Performed By: #### L 100.0100, L500.2500 ####[facility] [address] [place], [address] RDW SD 56.0 fl High 35.1-43.9 [facility] Comment on above: Performed By: #### L 100.0100, L500.2500 ####[facility] [address] [place], [address] WBC (Bld) [#/Vol] 8.8 10*3/uL Normal 4.4-11.0 [facility] Comment on above: Performed By: #### L 100.0100, L500.2500 ####[facility] [address] [place], [address] EGD Reporton 02-19-2025 EGD Report Normal [facility] Echo Completeon 02-19-2025 Echo Complete Normal [facility] Glucose measurement at [facility] deOrdered By: Josh Peñaloza on 02-19-2025 Glucose [Mass/Vol] 87 mg/dL 74-106 [facility] Comment on above: MANAGEMENT OF PATIEN T CARE PER NURSING PROTOCOL HH, Hemoglobin AND Hematocri ton 02-19-2025 Hematocrit (Bld) [Volume fraction] 28.5 % Low 37-47 [facility] Comment on above: Performed By: #### L 100.0600 ####[facility] [address] [place], [address] Hemoglobin (Bld) [Mass/Vol] 9.3 g/dL Low 12.0-15.0 [facility] Comment on above: Performed By: #### L 100.0600 ####[facility] [address] [place], [address] Hematocrit (Bld) [Volume fraction] 28.8 % Low 37-[address] [place] [address] Comment on above: Performed By: #### L 100.0600 ####[facility] [address] [place], [address] Hemoglobin (Bld) [Mass/Vol] 9.2 g/dL Low 12.0-15.0 [facility] Comment on above: Performed By: #### L 100.0600 ####[facility] [address] [place], [address] Hematocrit (Bld) [Volume fraction] 27.6 % Low 37-47 [facility] Comment on above: Performed By: #### L 100.0600 ####[facility] [address] [place], [address] Hemoglobin (Bld) [Mass/Vol] 8.8 g/dL Low 12.0-15.0 [facility] Comment on above: Performed By: #### L 100.0600 ####[facility] [address] [place], [address] Hematocrit (Bld) [Volume fraction] 29.1 % Low 37-47 [facility] Comment on above: Performed By: #### L 100.0600 ####[facility] [address] [place], [address] Hemoglobin (Bld) [Mass/Vol] 9.2 g/dL Low 12.0-15.0 [facility] Comment on above: Performed By: #### L 100.0600 ####[facility] [address] [place], [address] MR/POSTOP.ANEon 02-19-2025 MR/POSTOP.ANE Normal [facility] MR/HEYJHAAS9in 02-19-2025 MR/POSTOPAN2 Normal [facility] 12 Lead EKGon 02-18-2025 12 Lead EKG Normal [facility] Basic Metabolic Profile (BMP )on 02-18-2025 BUN/CRE 19.4 RATIO Normal 10-20 [facility] Comment on above: Performed By: #### L 100.0100, L500.2500 ####[facility] [address] [place], [address] Calcium [Mass/Vol] 9.5 mg/dL Normal 7.6-11.0 [facility] Comment on above: Performed By: #### L 100.0100, L500.2500 ####[facility] [address] [place], [address] Chloride [Moles/Vol] 108 mmol/L Normal 98-108 [facility] Comment on above: Performed By: #### L 100.0100, L500.2500 ####[facility] [address] [place], [address] CO2 [Moles/Vol] 21.8 mmol/L Normal 21.0-32.0 [facility] Comment on above: Performed By: #### L 100.0100, L500.2500 ####[facility] [address] [place], [address] Creatinine [Mass/Vol] 1.13 mg/dL Normal 0.70-1.20 [facility] Comment on above: Performed By: #### L 100.0100, L500.2500 ####[facility] [address] [place], [address] ECRCL 47.62 ml/min Low 50-250 [facility] Comment on above: Performed By: #### L 100.0100, L500.2500 ####[facility] [address] [place], [address] GAP 11 Normal 5-15 [facility] Comment on above: Performed By: #### L 100.0100, L500.2500 ####[facility] [address] [place], [address] GFR/1.73 sq M.predicted among non-blacks MDRD (S/P/Bld) [Vol rate/Area] 54 mL/min/{1.73_m2} Low >60 [facility] Comment on above: Result Comment: mL/m in/1.73m2 CKD-EPI Creatinine Equation (2020) Performed By: #### L 100.0100, L500.2500 ####[facility] [address] [place], [address] Glucose [Mass/Vol] 102 mg/dL High 70-99 [facility] Comment on above: Performed By: #### L 100.0100, L500.2500 ####[facility] [address] [place], [address] Potassium [Moles/Vol] 4.1 mmol/L Normal 3.3-5.1 [facility] Comment on above: Performed By: #### L 100.0100, L500.2500 ####[facility] [address] [place], [address] Sodium [Moles/Vol] 141 mmol/L Normal 133-145 [facility] Comment on above: Performed By: #### L 100.0100, L500.2500 ####[facility] [address] [place], [address] Urea nitrogen [Mass/Vol] 22 mg/dL High 4-19 [facility] Comment on above: Performed By: #### L 100.0100, L500.2500 ####[facility] [address] [place], [address] CBC W/Diff, Automatedon 04-2 -2024 Absolute Lymph 1.74 X10 3/uL Normal 0.83-4.51 [facility] Comment on above: Performed By: #### L 100.0100, L500.2500 ####[facility] [address] [place], [address] Absolute Neut 8.5 X10 3/uL High 2.0-7.7 [facility] Comment on above: Performed By: #### L 100.0100, L500.2500 ####[facility] [address] [place], [address] Basophils/100 WBC (Bld) 1.0 % Normal 0-[address] [facility] Comment on above: Performed By: #### L 100.0100, L500.2500 ####[facility] [address] [place], [address] Eosinophils/100 WBC (Bld) 1.6 % Normal 0-5 [facility] Comment on above: Performed By: #### L 100.0100, L500.2500 ####[facility] [address] [place], [address] Erythrocyte distribution width (RBC) [Ratio] 15.5 % High 11.6-14.6 [facility] Comment on above: Performed By: #### L 100.0100, L500.2500 ####[facility] [address] [place], [address] Hematocrit (Bld) [Volume fraction] 28.5 % Low 37-47 [facility] Comment on above: Performed By: #### L 100.0100, L500.2500 ####[facility] [address] [place], [address] Hemoglobin (Bld) [Mass/Vol] 9.1 g/dL Low 12.0-15.0 [facility] Comment on above: Performed By: #### L 100.0100, L500.2500 ####[facility] [address] [place], [address] IG% 0.400 Normal 0.0-0.9 [facility] Comment on above: Result Comment: IG% - Immature Granulocytes (promyelocytes, myelocytes andmetamyelocytes) > 1% indicates that a LEFT SHIFT is Present. Performed By: #### L 100.0100, L500.2500 ####[facility] [address] [place], [address] Lymphocytes/100 WBC (Bld) 15.8 % Low 19-41 [facility] Comment on above: Performed By: #### L 100.0100, L500.2500 ####[facility] [address] [place], [address] MCH (RBC) [Entitic mass] 32.0 pg Normal 27.0-32.0 [facility] Comment on above: Performed By: #### L 100.0100, L500.2500 ####[facility] [address] [place], [address] MCHC (RBC) [Mass/Vol] 31.9 g/dL Low 32-36 [facility] Comment on above: Performed By: #### L 100.0100, L500.2500 ####[facility] [address] [place], [address] MCV (RBC) [Entitic vol] 100.4 fL High 81-[address] [facility] Comment on above: Performed By: #### L 100.0100, L500.2500 ####[facility] [address] [place], [address] Monocytes/100 WBC (Bld) 3.9 % Normal 0-10 [facility] Comment on above: Performed By: #### L 100.0100, L500.2500 ####[facility] [address] [place], [address] Neutrophils/100 WBC (Bld) 77.3 % High 47-70 [facility] Comment on above: Performed By: #### L 100.0100, L500.2500 ####[facility] [address] [place], [address] Nucleated RBC (Bld) [#/Vol] 0 10*3/uL Normal 0-5 [facility] Comment on above: Performed By: #### L 100.0100, L500.2500 ####[facility] [address] [place], [address] Platelet mean volume (Bld) [Entitic vol] 9.9 fL Normal 6.2-12.0 [facility] Comment on above: Performed By: #### L 100.0100, L500.2500 ####[facility] [address] [place], [address] Platelets (Bld) [#/Vol] 228 10*3/uL Normal 150-450 [facility] Comment on above: Performed By: #### L 100.0100, L500.2500 ####[facility] [address] [place], [address] RBC (Bld) [#/Vol] 2.84 10*6/uL Low 4.2-5.4 [facility] Comment on above: Performed By: #### L 100.0100, L500.2500 ####[facility] [address] [place], [address] RDW SD 55.8 fl High 35.1-43.9 [facility] Comment on above: Performed By: #### L 100.0100, L500.2500 ####[facility] [address] [place], [address] WBC (Bld) [#/Vol] 11.0 10*3/uL Normal 4.4-11.0 [facility] Comment on above: Performed By: #### L 100.0100, L500.2500 ####[facility] [address] [place], [address] Emergency Department Summary on 02-18-2025 Emergency Department Summary Normal [facility] H AND P Exam - Hospitaliston 02-18-2025 H&P Exam - Hospitalist Normal [facility] HGBon 02-18-2025 Hgb 9.4 G/dL Low 12.0-16.0 [facility] Comment on above: Order Comment: STAT Performed By: #### M ORPH, ANEU, ADIFF, CBC #### [facility] [address] [place], [place] [address] HH, Hemoglobin AND Hematocri ton 02-18-2025 Hematocrit (Bld) [Volume fraction] 27.7 % Low 37-47 [facility] Comment on above: Performed By: #### L 100.0600 ####[facility] [address] [place], [address] Hemoglobin (Bld) [Mass/Vol] 9.0 g/dL Low 12.0-15.0 [facility] Comment on above: Performed By: #### L 100.0600 ####[facility] [address] [place], [place], [id number] LABORATORYOrdered By: SYSTEM SYSTEM on 02-18-2025 Hemoglobin (Bld) [Mass/Vol] 9.4 G/dL Low 12.0 - 16.0 G/dL AO Workflow SS MR/CON.PCM.GIon 02-18-2025 MR/CON.PCM.GI Normal [facility] ,Urineon 02-18-2025 Beta HCG ( test) Ql (U) Normal [facility] Comment on above: Order Comment: Jose Eduardo vitale has had a period within 12 [id number] Result Comment: DONT NEED Performed By: #### L 400.7600 ####[facility] [address] [place], [place], [id number] INTERNAL QC OK? Normal [facility] Comment on above: Order Comment: Jose Eduardo vitale has had a period within 12 [id number] Result Comment: DONT NEED Performed By: #### L 400.7600 ####[facility] [address] [place], [place], [id number] RECORD KIT LOT# [facility] Comment on above: Order Comment: Jose Eduardo vitale has had a period within 12 [id number] Result Comment: DONT NEED Performed By: #### L 400.7600 ####[facility] [address] [place], [address] LABORATORYOrdered By: Lidia Souza on 02-16-2025 Hemoglobin.gastrointesti nal Ql (Stl) Positive *ABN* (02/16/25 8:21 AM) Invalid Interpretation Code AO Rapid Testing SS OCC (LAB)on 02-16-2025 Occult Blood Fecal Positive Abnormal Negative [facility] Comment on above: Performed By: #### O CC #### Marleen [address] [address] .Auto Diffon 02-15-2025 Basophil, Absolute 0.1 10 3/mcL Normal 0.0-0.3 [facility] Comment on above: Performed By: #### A MY, LIP, A1C, ADIFF, TSHR, CMP, CBC, LIPID, GFR, [id number], VIDH, [id number], ANEU #### [address] [address] #### HCV1 #### [address] [address] Basophils/100 WBC (Bld) 1.0 % Normal 0.0-2.5 [facility] Comment on above: Performed By: #### A MY, LIP, A1C, ADIFF, TSHR, CMP, CBC, LIPID, GFR, [id number], VIDH, [id number], ANEU #### [address] [address] #### HCV1 #### [address] [address] Eosinophil, Absolute 0.3 10 3/mcL Normal 0.0-0.7 [facility] Comment on above: Performed By: #### A MY, LIP, A1C, ADIFF, TSHR, CMP, CBC, LIPID, GFR, [id number], VIDH, 799080, ANEU #### [address] [address] #### HCV1 #### [address] [address] Eosinophils/100 WBC (Bld) 2.9 % Normal 0.0-6.0 [facility] Comment on above: Performed By: #### A MY, LIP, A1C, ADIFF, TSHR, CMP, CBC, LIPID, GFR, [id number], VIDH, [id number], ANEU #### [address] [address] #### HCV1 #### [address] [address] Lymphocyte, Absolute 1.7 10 3/mcL Normal 0.9-4.3 [facility] Comment on above: Performed By: #### A MY, LIP, A1C, ADIFF, TSHR, CMP, CBC, LIPID, GFR, [id number], VIDH, [id number], ANEU #### [address] [address] #### HCV1 #### [address] [address] Lymphocytes/100 WBC (Bld) 16.1 % Low 20.0-40.0 [facility] Comment on above: Performed By: #### A MY, LIP, A1C, ADIFF, TSHR, CMP, CBC, LIPID, GFR, [id number], VIDH, 629424, ANEU #### [address] [address] #### HCV1 #### [address] [address] Monocyte, Absolute 0.5 10 3/mcL Normal 0.1-1.4 [facility] Comment on above: Performed By: #### A MY, LIP, A1C, ADIFF, TSHR, CMP, CBC, LIPID, GFR, [id number], VIDH, 035072, ANEU #### [address] [address] #### HCV1 #### [address] [address] Monocytes/100 WBC (Bld) 5.0 % Normal 2.0-13.0 [facility] Comment on above: Performed By: #### A MY, LIP, A1C, ADIFF, TSHR, CMP, CBC, LIPID, GFR, [id number], VIDH, [id number], ANEU #### [address] [address] #### HCV1 #### [address] [address] Neutrophils/100 WBC (Bld) 75.0 % Normal 50.0-75.0 [facility] Comment on above: Performed By: #### A MY, LIP, A1C, ADIFF, TSHR, CMP, CBC, LIPID, GFR, [id number], VIDH, 061128, ANEU #### [address] [address] #### HCV1 #### [address] [address] .GFRon 02-15-2025 Estimated Glomerular Filtration Rate 53 ml/min/1.73sqm Normal [facility] Comment on above: Result Comment: Stages of Chronic Kidney Disease (CKD) Stage Description eGFR(ml/min/1.73 sq.m.) CKD 1 Normal kidney function or >=90 normal kindney function with possible kidney damage (ex. Proteinuria) CKD 2 Kidney damage with mild loss 60-89 of kidney function CKD 3a Mild to moderate loss of kidney 45-59 function CKD 3b Moderate to severe loss of 30-44 of kindey function CKD 4 Severe loss of kidney function 15-29 CKD 5 Kidney failure <15 Note: (go live 2024) the eGFR calculation was updated to the 2020 CKD-EPI creatinine equation without a race factor to calculate the eGFR results. Performed By: #### A MY, LIP, A1C, ADIFF, TSHR, CMP, CBC, LIPID, GFR, [id number], VIDH, [id number], ANEU #### [place] [address] #### HCV1 #### [place] [address] .NEUABSon 02-15-2025 Neutrophil, Absolute 7.8 10 3/mcL Normal 2.3-8.1 [facility] Comment on above: Performed By: #### A MY, LIP, A1C, ADIFF, TSHR, CMP, CBC, LIPID, GFR, [id number], VIDH, [id number], ANEU #### [place] [id number] #### HCV1 #### [place] [id number] BMPon 02-15-2025 BUN/Creatinine Ratio 18 ratio Normal 7-27 [facility] Comment on above: Performed By: #### A MY, LIP, A1C, ADIFF, TSHR, CMP, CBC, LIPID, GFR, [id number], VIDH, 293728, ANEU #### [place] [address] #### HCV1 #### [address] [address] Calcium [Mass/Vol] 9.2 mg/dL Normal 8.4-10.2 [facility] Comment on above: Performed By: #### A MY, LIP, A1C, ADIFF, TSHR, CMP, CBC, LIPID, GFR, [id number], VIDH, 663766, ANEU #### [address] [address] #### HCV1 #### [address] [address] Chloride [Moles/Vol] 106 mmol/L Normal 98-107 [facility] Comment on above: Performed By: #### A MY, LIP, A1C, ADIFF, TSHR, CMP, CBC, LIPID, GFR, [id number], VIDH, 140534, ANEU #### [place] [address] #### HCV1 #### [address] [address] CO2 [Moles/Vol] 24 mmol/L Normal 23-31 [facility] Comment on above: Performed By: #### A MY, LIP, A1C, ADIFF, TSHR, CMP, CBC, LIPID, GFR, [id number], VIDH, 785987, ANEU #### [address] [address] #### HCV1 #### [address] [address] Creatinine [Mass/Vol] 1.14 mg/dL High 0.51-0.95 [facility] Comment on above: Performed By: #### A MY, LIP, A1C, ADIFF, TSHR, CMP, CBC, LIPID, GFR, [id number], VIDH, 114803, ANEU #### [address] [address] #### HCV1 #### [address] [address] Electrolyte Balance 11.0 mEq/L Normal 4.0-15.0 [facility] Comment on above: Performed By: #### A MY, LIP, A1C, ADIFF, TSHR, CMP, CBC, LIPID, GFR, [id number], VIDH, 515954, ANEU #### [address] [address] #### HCV1 #### [address] [address] Glucose [Mass/Vol] 117 mg/dL High 80-115 [facility] Comment on above: Performed By: #### A MY, LIP, A1C, ADIFF, TSHR, CMP, CBC, LIPID, GFR, [id number], VIDH, 373371, ANEU #### [address] [address] #### HCV1 #### [address] [address] Potassium [Moles/Vol] 3.8 mmol/L Normal 3.5-5.1 [facility] Comment on above: Performed By: #### A MY, LIP, A1C, ADIFF, TSHR, CMP, CBC, LIPID, GFR, [id number], VIDH, 873117, ANEU #### [address] [address] #### HCV1 #### [address] [address] Sodium [Moles/Vol] 141 mmol/L Normal 136-145 [facility] Comment on above: Performed By: #### A MY, LIP, A1C, ADIFF, TSHR, CMP, CBC, LIPID, GFR, [id number], VIDH, 439164, ANEU #### [address] [address] #### HCV1 #### [address] [address] Urea nitrogen [Mass/Vol] 20 mg/dL High 7-18 [facility] Comment on above: Performed By: #### A MY, LIP, A1C, ADIFF, TSHR, CMP, CBC, LIPID, GFR, [id number], VIDH, 161291, ANEU #### [address] [address] #### HCV1 #### [address] 02-15-2025 Erythrocyte distribution width (RBC) [Ratio] 15.5 % Normal 11.5-15.5 [facility] Comment on above: Order Comment: STAT Performed By: #### M ORPH, ANEU, ADIFF, CBC #### [address] [address] Hematocrit (Bld) [Volume fraction] 29.4 % Low 34.0-46.0 [facility] Comment on above: Order Comment: STAT Performed By: #### M ORPH, ANEU, ADIFF, CBC #### [address] [address] Hgb 10.0 G/dL Low 12.0-16.0 [facility] Comment on above: Order Comment: STAT Performed By: #### M ORPH, ANEU, ADIFF, CBC #### [address] [address] MCH (RBC) [Entitic mass] 32.6 pg Normal 27.0-33.0 [facility] Comment on above: Order Comment: STAT Performed By: #### M ORPH, ANEU, ADIFF, CBC #### [address] [address] MCHC 33.9 G/dL Normal 32.0-36.0 [facility] Comment on above: Order Comment: STAT Performed By: #### M ORPH, ANEU, ADIFF, CBC #### [address] [address] MCV (RBC) [Entitic vol] 96.1 fL Normal 80.0-99.0 [facility] Comment on above: Order Comment: STAT Performed By: #### M ORPH, ANEU, ADIFF, CBC #### [address] [address] Platelet 247 10 3/mcL Normal 150-450 [facility] Comment on above: Order Comment: STAT Performed By: #### M ORPH, ANEU, ADIFF, CBC #### [address] [address] Platelet mean volume (Bld) [Entitic vol] 7.5 fL Normal 6.6-10.5 [facility] Comment on above: Order Comment: STAT Performed By: #### M ORPH, ANEU, ADIFF, CBC #### [place] [address] RBC 3.06 10 6/mcL Low 4.10-5.30 [facility] Comment on above: Order Comment: STAT Performed By: #### M ORPH, ANEU, ADIFF, CBC #### [place] [address] WBC 10.3 10 3/mcL Normal 4.5-10.8 [facility] Comment on above: Order Comment: STAT Performed By: #### M ORPH, ANEU, ADIFF, CBC #### [address] [address] LABORATORYOrdered By: SYSTEM SYSTEM on 02-15-2025 Basophils (Bld) [#/Vol] 0.1 103/mcL Normal 0.0 - 0.3 10^3/mcL AO Workflow SS Basophils/100 WBC (Bld) 1.0 % Normal 0.0 - 2.5 % AO Workflow SS Calcium [Mass/Vol] 9.2 mg/dL Normal 8.4 - 10. 2 mg/dL AO ADM SS Chloride [Moles/Vol] 106 mmol/L Normal 98 - 10 7 mmol/L AO ADM SS CO2 [Moles/Vol] 24 mmol/L Normal 23 - 31 mmol/L AO ADM SS Creatinine [Mass/Vol] 1.14 mg/dL High 0.51 - 0.95 mg/dL AO ADM SS Electrolyte Balance 11.0 mEq/L Normal 4.0 - 15 .0 mEq/L AO ADM SS Eosinophil, Absolute 0.3 103/mcL Normal 0.0 - 0 .7 10^3/mcL AO Workflow SS Eosinophils/100 WBC (Bld) 2.9 % Normal 0.0 - 6.0 % AO Workflow SS Erythrocyte distribution width (RBC) [Ratio] 15.5 % Normal 11.5 - 15.5 % AO Workflow SS Estimated Glomerular Filtration Rate 53 ml/min/1.73sqm Invalid Interpretation Code AO Chemistry S Comment on above: Interpretive Data: Stages of Chronic Kidney Disease (CKD) Stage Description eGFR(ml/min/1.73 sq.m.) CKD 1 Normal kidney function or >=90 normal kindney function with possible kidney damage (ex. Proteinuria) CKD 2 Kidney damage with mild loss 60-89 of kidney function CKD 3a Mild to moderate loss of kidney 45-59 function CKD 3b Moderate to severe loss of 30-44 of kindey function CKD 4 Severe loss of kidney function 15-29 CKD 5 Kidney failure <15 Note: (go live 2024) the eGFR calculation was updated to the 2020 CKD-EPI creatinine equation without a race factor to calculate the eGFR results. Glucose [Mass/Vol] 117 mg/dL High 80 - 115 mg/dL AO ADM SS Hematocrit (Bld) [Volume fraction] 29.4 % Low 34.0 - 46.0 % AO Workflow SS Hemoglobin (Bld) [Mass/Vol] 10.0 G/dL Low 12.0 - 16.0 G/dL AO Workflow SS Lymphocytes (Bld) [#/Vol] 1.7 103/mcL Normal 0.9 - 4.3 10^3/mcL AO Workflow SS Lymphocytes/100 WBC (Bld) 16.1 % Low 20.0 - 40.0 % AO Workflow SS MCH (RBC) [Entitic mass] 32.6 pg Normal 27. 0 - 33.0 pg AO Workflow SS MCHC 33.9 G/dL Normal 32.0 - 36.0 G/dL AO Workflow SS MCV (RBC) [Entitic vol] 96.1 fL Normal 80.0 - 99.0 fL AO Workflow SS Monocytes (Bld) [#/Vol] 0.5 103/mcL Normal 0.1 - 1.4 10^3/mcL AO Workflow SS Monocytes/100 WBC (Bld) 5.0 % Normal 2.0 - 13.0 % AO Workflow SS Neutrophils (Bld) [#/Vol] 7.8 103/mcL Normal 2.3 - 8.1 10^3/mcL AO Workflow SS Neutrophils/100 WBC (Bld) 75.0 % Normal 50.0 - 75.0 % AO Workflow SS Platelet mean volume (Bld) [Entitic vol] 7.5 fL Normal 6.6 - 10.5 fL AO Workflow SS Platelets (Bld) [#/Vol] 247 103/mcL Normal 150 - 450 10^3/mcL AO Workflow SS Potassium [Moles/Vol] 3.8 mmol/L Normal 3.5 - 5.1 mmol/L AO ADM SS RBC (Bld) [#/Vol] 3.06 106/mcL Low 4.10 - 5.3 0 10^6/mcL AO Workflow SS Sodium [Moles/Vol] 141 mmol/L Normal 136 - 145 mmol/L AO ADM SS Urea nitrogen [Mass/Vol] 20 mg/dL High 7 - 18 mg/dL AO ADM SS Urea nitrogen/Creatinine [Mass ratio] 18 ratio Normal 7 - 27 ratio AO ADM SS WBC (Bld) [#/Vol] 10.3 103/mcL Normal 4.5 - 10.8 10^3/mcL AO Workflow SS .Auto Diffon 02-14-2025 Basophil, Absolute 0.1 10 3/mcL Normal 0.0-0.3 [facility] Comment on above: Performed By: #### M ORPH, ANEU, ADIFF, CBC #### [place] [address] [place], [place] [address] Basophils/100 WBC (Bld) 1.4 % Normal 0.0-2.5 [facility] Comment on above: Performed By: #### M ORPH, ANEU, ADIFF, CBC #### [place] [address] [place], [place] [address] Eosinophil, Absolute 0.3 10 3/mcL Normal 0.0-0.7 [facility] Comment on above: Performed By: #### M ORPH, ANEU, ADIFF, CBC #### [place] [address] [place], [place] [address] Eosinophils/100 WBC (Bld) 3.3 % Normal 0.0-6.0 [facility] Comment on above: Performed By: #### M ORPH, ANEU, ADIFF, CBC #### [place] [address] [place], [place] [address] Lymphocyte, Absolute 2.3 10 3/mcL Normal 0.9-4.3 [facility] Comment on above: Performed By: #### M ORPH, ANEU, ADIFF, CBC #### [address] [address] Lymphocytes/100 WBC (Bld) 24.3 % Normal 20.0-40.0 [facility] Comment on above: Performed By: #### M ORPH, ANEU, ADIFF, CBC #### [address] [address] Monocyte, Absolute 0.5 10 3/mcL Normal 0.1-1.4 [facility] Comment on above: Performed By: #### M ORPH, ANEU, ADIFF, CBC #### [address] [address] Monocytes/100 WBC (Bld) 5.2 % Normal 2.0-13.0 [facility] Comment on above: Performed By: #### M ORPH, ANEU, ADIFF, CBC #### [address] [address] Neutrophils/100 WBC (Bld) 65.8 % Normal 50.0-75.0 [facility] Comment on above: Performed By: #### M ORPH, ANEU, ADIFF, CBC #### [address] [address] .Morphon 02-14-2025 Platelet Estimate Normal Normal [facility] Comment on above: Performed By: #### M ORPH, ANEU, ADIFF, CBC #### [address] [address] .NEUABSon 02-14-2025 Neutrophil, Absolute 6.3 10 3/mcL Normal 2.3-8.1 [facility] Comment on above: Performed By: #### M ORPH, ANEU, ADIFF, CBC #### [address] [address] CBCon 02-14-2025 Erythrocyte distribution width (RBC) [Ratio] 15.4 % Normal 11.5-15.5 [facility] Comment on above: Performed By: #### M ORPH, ANEU, ADIFF, CBC #### [address] [address] Hematocrit (Bld) [Volume fraction] 28.5 % Low 34.0-46.0 [facility] Comment on above: Performed By: #### M ORPH, ANEU, ADIFF, CBC #### [address] [address] Hgb 9.7 G/dL Low 12.0-16.0 [facility] Comment on above: Performed By: #### M ORPH, ANEU, ADIFF, CBC #### [address] [address] MCH (RBC) [Entitic mass] 32.7 pg Normal 27.0-33.0 [facility] Comment on above: Performed By: #### M ORPH, ANEU, ADIFF, CBC #### [place] [address] MCHC 34.1 G/dL Normal 32.0-36.0 [facility] Comment on above: Performed By: #### M ORPH, ANEU, ADIFF, CBC #### [address] [address] MCV (RBC) [Entitic vol] 95.9 fL Normal 80.0-99.0 [facility] Comment on above: Performed By: #### M ORPH, ANEU, ADIFF, CBC #### [address] [address] Platelet 240 10 3/mcL Normal 150-450 [facility] Comment on above: Performed By: #### M ORPH, ANEU, ADIFF, CBC #### [address] [address] Platelet mean volume (Bld) [Entitic vol] 8.0 fL Normal 6.6-10.5 [facility] Comment on above: Performed By: #### M ORPH, ANEU, ADIFF, CBC #### [place] [id number] RBC 2.97 10 6/mcL Low 4.10-5.30 [facility] Comment on above: Performed By: #### M ORPH, ANEU, ADIFF, CBC #### [place] [id number] [place], [place] [address] WBC 9.6 10 3/mcL Normal 4.5-10.8 [facility] Comment on above: Performed By: #### M ORPH, ANEU, ADIFF, CBC #### [facility] [address] [place], [place] [address] LABORATORYOrdered By: SYSTEM SYSTEM on 02-14-2025 Basophils (Bld) [#/Vol] 0.1 103/mcL Normal 0.0 - 0.3 10^3/mcL AO Workflow SS Basophils/100 WBC (Bld) 1.4 % Normal 0.0 - 2.5 % AO Workflow SS Eosinophil, Absolute 0.3 103/mcL Normal 0.0 - 0 .7 10^3/mcL AO Workflow SS Eosinophils/100 WBC (Bld) 3.3 % Normal 0.0 - 6.0 % AO Workflow SS Erythrocyte distribution width (RBC) [Ratio] 15.4 % Normal 11.5 - 15.5 % AO Workflow SS Hematocrit (Bld) [Volume fraction] 28.5 % Low 34.0 - 46.0 % AO Workflow SS Hemoglobin (Bld) [Mass/Vol] 9.7 G/dL Low 12.0 - 16.0 G/dL AO Workflow SS Lymphocytes (Bld) [#/Vol] 2.3 103/mcL Normal 0.9 - 4.3 10^3/mcL AO Workflow SS Lymphocytes/100 WBC (Bld) 24.3 % Normal 20.0 - 40.0 % AO Workflow SS MCH (RBC) [Entitic mass] 32.7 pg Normal 27. 0 - 33.0 pg AO Workflow SS MCHC 34.1 G/dL Normal 32.0 - 36.0 G/dL AO Workflow SS MCV (RBC) [Entitic vol] 95.9 fL Normal 80.0 - 99.0 fL AO Workflow SS Monocytes (Bld) [#/Vol] 0.5 103/mcL Normal 0.1 - 1.4 10^3/mcL AO Workflow SS Monocytes/100 WBC (Bld) 5.2 % Normal 2.0 - 13.0 % AO Workflow SS Neutrophils (Bld) [#/Vol] 6.3 103/mcL Normal 2.3 - 8.1 10^3/mcL AO Workflow SS Neutrophils/100 WBC (Bld) 65.8 % Normal 50.0 - 75.0 % AO Workflow SS Platelet mean volume (Bld) [Entitic vol] 8.0 fL Normal 6.6 - 10.5 fL AO Workflow SS Platelets (Bld) [#/Vol] 240 103/mcL Normal 150 - 450 10^3/mcL AO Workflow SS RBC (Bld) [#/Vol] 2.97 106/mcL Low 4.10 - 5.3 0 10^6/mcL AO Workflow SS WBC (Bld) [#/Vol] 9.6 103/mcL Normal 4.5 - 10.8 10^3/mcL AO Workflow SS LABORATORYOrdered By: Eusebio Myers on 02-14-2025 Platelets LM Ql (Bld) Normal (02/14/25 1:42 PM) Normal AO Hematology S CR - History AND Physicalon 02-12-2025 CR - History & Physical Normal [facility] Cardiology Visit Reporton Cardiology Visit Report Normal [facility] 12 Lead EKGon 02-06-2025 12 Lead EKG Normal [facility] Absolute lymphocyte countOrd ered By: Inderjit Gilmore on 02-06-2025 Lymphocytes Auto (Unsp spec) [#/Vol] 1.68 10*3/uL 0.83-4.51 [facility] Absolute neutrophil countOrd ered By: Inderjit Gilmore on 02-06-2025 Neutrophils (Bld) [#/Vol] 8.7 10*3/uL High 2.0-7.7 [facility] Anion gap in Serum or Plasma Ordered By: Inderjit Gilmore on 02-06-2025 Anion gap [Moles/Vol] 13 mmol/L 5-15 [facility] Automated lymphocyte count a s percentage of total leukocytesOrdered By: Inderjit Gilmore on 02-06-2025 Lymphocytes/100 WBC Auto (Unsp spec) 14.7 % Low 19-41 [facility] BUN/creatinine ratioOrdered By: Inderjit Gilmore on 02-06-2025 Urea nitrogen/Creatinine [Mass ratio] 19.6 mg/mg 10-20 [facility] Basic Metabolic Profile (BMP )on 02-06-2025 BUN/CRE 19.6 RATIO Normal - [facility] Comment on above: Performed By: #### L 100.0100, L500.2500, L501.2450, L500.3400, L501.9520, L501.4021, L501.5200 ####[facility] [address] [place], [address] Calcium [Mass/Vol] 9.4 mg/dL Normal 7.6-11.0 [facility] Comment on above: Performed By: #### L 100.0100, L500.2500, L501.2450, L500.3400, L501.9520, L501.4021, L501.5200 ####[facility] [address] [place], [address] Chloride [Moles/Vol] 106 mmol/L Normal 98-108 [facility] Comment on above: Performed By: #### L 100.0100, L500.2500, L501.2450, L500.3400, L501.9520, L501.4021, L501.5200 ####[facility] [address] [place], [address] CO2 [Moles/Vol] 19.9 mmol/L Low 21.0-32.0 [facility] Comment on above: Performed By: #### L 100.0100, L500.2500, L501.2450, L500.3400, L501.9520, L501.4021, L501.5200 ####[facility] [address] [place], [address] Creatinine [Mass/Vol] 1.06 mg/dL Normal 0.70-1.20 [facility] Comment on above: Performed By: #### L 100.0100, L500.2500, L501.2450, L500.3400, L501.9520, L501.4021, L501.5200 ####[facility] [address] [place], [address] ECRCL 50.77 ml/min Normal 50-250 [facility] Comment on above: Performed By: #### L 100.0100, L500.2500, L501.2450, L500.3400, L501.9520, L501.4021, L501.5200 ####[facility] [address] [place], [address] GAP 13 Normal 5-15 [facility] Comment on above: Performed By: #### L 100.0100, L500.2500, L501.2450, L500.3400, L501.9520, L501.4021, L501.5200 ####[facility] [address] [place], [address] GFR/1.73 sq M.predicted among non-blacks MDRD (S/P/Bld) [Vol rate/Area] 58 mL/min/{1.73_m2} Low >60 [facility] Comment on above: Result Comment: mL/m in/1.73m2 CKD-EPI Creatinine Equation (2020) Performed By: #### L 100.0100, L500.2500, L501.2450, L500.3400, L501.9520, L501.4021, L501.5200 ####[facility] [address] [place], [address] Glucose [Mass/Vol] 110 mg/dL High 70-99 [facility] Comment on above: Performed By: #### L 100.0100, L500.2500, L501.2450, L500.3400, L501.9520, L501.4021, L501.5200 ####[facility] [address] [place], [address] Potassium [Moles/Vol] 4.6 mmol/L Normal 3.3-5.1 [facility] Comment on above: Result Comment: Hemo lysis present, Results??could be affected.?? Performed By: #### L 100.0100, L500.2500, L501.2450, L500.3400, L501.9520, L501.4021, L501.5200 ####[facility] [address] [place], [address] Sodium [Moles/Vol] 138 mmol/L Normal 133-145 [facility] Comment on above: Performed By: #### L 100.0100, L500.2500, L501.2450, L500.3400, L501.9520, L501.4021, L501.5200 ####[facility] [address] [place], [address] Urea nitrogen [Mass/Vol] 21 mg/dL High 4-19 [facility] Comment on above: Performed By: #### L 100.0100, L500.2500, L501.2450, L500.3400, L501.9520, L501.4021, L501.5200 ####[facility] [address] [place], [place], [phone] Basophil percentageOrdered B y: Inderjit Gilmore on 02-06-2025 Basophils/100 WBC (Bld) 0.8 % 0-[address] [facility] Bilirubin Test strip Ql (U)O rdered By: Inderjit Gilmore on 02-06-2025 Bilirubin Ql (U) Negative Negative [facility] Bilirubin directOrdered By: Inderjit Gilmore on 02-06-2025 Bilirubin.direct [Mass/Vol] 0.17 mg/dL 0.00-0.30 [facility] Comment on above: Hemolysis present, R esults could be affected. Bilirubin, totalOrdered By: Inderjit Gilmore on 02-06-2025 Bilirubin [Mass/Vol] 0.51 mg/dL 0.00-1.30 [facility] CBC W/Diff, Automatedon 01-22 Absolute Lymph 1.68 X10 3/uL Normal 0.83-4.51 [facility] Comment on above: Performed By: #### L 100.0100, L500.2500, L501.2450, L500.3400, L501.9520, L501.4021, L501.5200 ####[facility] [address] [place], [address] Absolute Neut 8.7 X10 3/uL High 2.0-7.7 [facility] Comment on above: Performed By: #### L 100.0100, L500.2500, L501.2450, L500.3400, L501.9520, L501.4021, L501.5200 ####[facility] [address] [place], [address] Basophils/100 WBC (Bld) 0.8 % Normal 0-[address] [facility] Comment on above: Performed By: #### L 100.0100, L500.2500, L501.2450, L500.3400, L501.9520, L501.4021, L501.5200 ####[facility] [address] [place], [address] Eosinophils/100 WBC (Bld) 1.7 % Normal 0-5 [facility] Comment on above: Performed By: #### L 100.0100, L500.2500, L501.2450, L500.3400, L501.9520, L501.4021, L501.5200 ####[facility] [address] [place], [address] Erythrocyte distribution width (RBC) [Ratio] 14.3 % Normal 11.6-14.6 [facility] Comment on above: Performed By: #### L 100.0100, L500.2500, L501.2450, L500.3400, L501.9520, L501.4021, L501.5200 ####[facility] [address] [place], [address] Hematocrit (Bld) [Volume fraction] 34.5 % Low 37-47 [facility] Comment on above: Performed By: #### L 100.0100, L500.2500, L501.2450, L500.3400, L501.9520, L501.4021, L501.5200 ####[facility] [address] [place], [address] Hemoglobin (Bld) [Mass/Vol] 11.9 g/dL Low 12.0-15.0 [facility] Comment on above: Performed By: #### L 100.0100, L500.2500, L501.2450, L500.3400, L501.9520, L501.4021, L501.5200 ####[facility] [address] [place], [address] IG% 0.500 Normal 0.0-0.9 [facility] Comment on above: Result Comment: IG% - Immature Granulocytes (promyelocytes, myelocytes andmetamyelocytes) > 1% indicates that a LEFT SHIFT is Present. Performed By: #### L 100.0100, L500.2500, L501.2450, L500.3400, L501.9520, L501.4021, L501.5200 ####[facility] [address] [place], [address] Lymphocytes/100 WBC (Bld) 14.7 % Low 19-41 [facility] Comment on above: Performed By: #### L 100.0100, L500.2500, L501.2450, L500.3400, L501.9520, L501.4021, L501.5200 ####[facility] [address] [place], [address] MCH (RBC) [Entitic mass] 32.2 pg High 27.0-32.0 [facility] Comment on above: Performed By: #### L 100.0100, L500.2500, L501.2450, L500.3400, L501.9520, L501.4021, L501.5200 ####[facility] [address] [place], [address] MCHC (RBC) [Mass/Vol] 34.5 g/dL Normal 32-36 [facility] Comment on above: Performed By: #### L 100.0100, L500.2500, L501.2450, L500.3400, L501.9520, L501.4021, L501.5200 ####[facility] [address] [place], [address] MCV (RBC) [Entitic vol] 93.2 fL Normal 81-[address] [facility] Comment on above: Performed By: #### L 100.0100, L500.2500, L501.2450, L500.3400, L501.9520, L501.4021, L501.5200 ####[facility] [address] [place], [address] Monocytes/100 WBC (Bld) 6.0 % Normal 0-10 [facility] Comment on above: Performed By: #### L 100.0100, L500.2500, L501.2450, L500.3400, L501.9520, L501.4021, L501.5200 ####[facility] [address] [place], [address] Neutrophils/100 WBC (Bld) 76.3 % High 47-70 [facility] Comment on above: Performed By: #### L 100.0100, L500.2500, L501.2450, L500.3400, L501.9520, L501.4021, L501.5200 ####[facility] [address] [place], [address] Nucleated RBC (Bld) [#/Vol] 0 10*3/uL Normal 0-5 [facility] Comment on above: Performed By: #### L 100.0100, L500.2500, L501.2450, L500.3400, L501.9520, L501.4021, L501.5200 ####[facility] [address] [place], [address] Platelet mean volume (Bld) [Entitic vol] 10.3 fL Normal 6.2-12.0 [facility] Comment on above: Performed By: #### L 100.0100, L500.2500, L501.2450, L500.3400, L501.9520, L501.4021, L501.5200 ####[facility] [address] [place], [address] Platelets (Bld) [#/Vol] 216 10*3/uL Normal 150-450 [facility] Comment on above: Performed By: #### L 100.0100, L500.2500, L501.2450, L500.3400, L501.9520, L501.4021, L501.5200 ####[facility] [address] [place], [address] RBC (Bld) [#/Vol] 3.70 10*6/uL Low 4.2-5.4 [facility] Comment on above: Performed By: #### L 100.0100, L500.2500, L501.2450, L500.3400, L501.9520, L501.4021, L501.5200 ####[facility] [address] [place], [address] RDW SD 48.8 fl High 35.1-43.9 [facility] Comment on above: Performed By: #### L 100.0100, L500.2500, L501.2450, L500.3400, L501.9520, L501.4021, L501.5200 ####[facility] [address] [place], [address] WBC (Bld) [#/Vol] 11.5 10*3/uL High 4.4-11.0 [facility] Comment on above: Performed By: #### L 100.0100, L500.2500, L501.2450, L500.3400, L501.9520, L501.4021, L501.5200 ####[facility] [address] [place], [address] CTA Chest W/WO Contraston CTA Chest W/WO Contrast Normal [facility] Carbon dioxide, total [Moles /volume] in Central venous bloodOrdered By: Inderjit Gilmore on 02-06-2025 CO2 [Moles/Vol] 19.9 mmol/L Low 21.0-32.0 [facility] Chest 1 View (Portable)on Chest 1 View (Portable) Normal [facility] Chloride assayOrdered By: Huy Gilmore on 02-06-2025 Chloride [Moles/Vol] 106 mmol/L 98-108 [facility] Emergency Department Summary on 02-06-2025 Emergency Department Summary Normal [facility] Eosinophil percentageOrdered By: Inderjit Gilmore on 02-06-2025 Eosinophils/100 WBC (Bld) 1.7 % 0-5 [facility] Epithelial cells.squamous LM Ql (Urine sed)Ordered By: Inderjit Gilmore on 02-06-2025 Epithelial cells.squamous LM.HPF (Urine sed) [#/Area] 0 /[HPF] 5-10 [facility] Erythrocyte distribution wid th (RBC) [Ratio]Ordered By: Inderjit Gilmore on 02-06-2025 Erythrocyte distribution width (RBC) [Entitic vol] 48.8 fL High 35.1-43.9 [facility] Erythrocyte distribution wid th ratioOrdered By: Inderjit Gilmore on 02-06-2025 Erythrocyte distribution width (RBC) [Ratio] 14.3 % 11.6-14.6 [facility] Erythrocyte distribution wid th standard deviationOrdered By: Inderjit Gilmore on 02-06-2025 Erythrocyte distribution width (RBC) [Ratio] 48.8 fl High 35.1-43.9 [facility] Estimation of creatinine christopher aranceOrdered By: Inderjit Gilmore on 02-06-2025 Estimated Creatinine Clearance Calc 50.77 ml/min 50-250 [facility] GFR/1.73 sq M.predicted dinesh g non-blacks MDRD (S/P/Bld) [Vol rate/Area]Ordered By: Inderjit Gilmore on 02-06-2025 Estimated GFR (MDRD) Non-Af Amer 58 Low >60 [facility] Comment on above: mL/min/1.73m2 CKD-EP I Creatinine Equation (2020) Glomerular filtration rate ( GFR) estimation/1.73 sq m using serum, plasma, or whole bOrdered By: Inderjit Gilmore on 02-06-2025 GFR/1.73 sq M.predicted among non-blacks MDRD (S/P/Bld) [Vol rate/Area] 58 mL/min/{1.73_m2} Low >60 [facility] Comment on above: mL/min/1.73m2 CKD-EP I Creatinine Equation (2020) Glucose Ql (U)Ordered By: Huy Gilmore on 02-06-2025 Urine Glucose (UA) Normal mg/dl Normal [facility] Hematocrit Auto (Bld) [Volum e fraction]Ordered By: Inderjit Gilmore on 02-06-2025 Hematocrit (Bld) [Volume fraction] 34.5 % Low 37-47 [facility] Hemoglobin measurementOrdere d By: Inderjit Gilmore on 02-06-2025 Hemoglobin (Bld) [Mass/Vol] 11.9 g/dL Low 12.0-15.0 [facility] Immature granulocytes/100 WB C Auto (Bld)Ordered By: Inderjit Gilmore on 02-06-2025 Immature granulocytes/100 WBC (Bld) 0.500 % 0.0-0.9 [facility] Comment on above: IG% - Immature Granu locytes (promyelocytes, myelocytes and metamyelocytes) > 1% indicates that a LEFT SHIFT is Present. Ketones Test strip Ql (U)Ord ered By: Inderjit Gilmore on 02-06-2025 Ketones Ql (U) Negative Negative [facility] L499.0042on 02-06-2025 Trop T High Sen 841 ng/L Invalid Interpretation Code <=14 [facility] Comment on above: Result Comment: Crit ical Result(s) Called at 02/06/2025-12:23 by Ashu Layton??Results read back by same. Performed By: #### L 499.0042 ####[facility] [address] [place], [address] L501.4021on 02-06-2025 Trop T High Sen 846 ng/L Invalid Interpretation Code <=14 [facility] Comment on above: Result Comment: Crit ical Result(s) Called at 1009: by: WEN CRANDALL.??Results read back by same. Performed By: #### L 100.0100, L500.2500, L501.2450, L500.3400, L501.9520, L501.4021, L501.5200 ####[facility] [address] [place], [place], [id number] Laboratory - Chemistry and C hemistry - challengeOrdered By: Inderjit Gilmore on 02-06-2025 AST [Catalytic activity/Vol] 26 U/L <32 [facility] Comment on above: Hemolysis present, R esults could be affected. Lipaseon 02-06-2025 Lipase [Catalytic activity/Vol] 30 U/L Normal 13-75 [facility] Comment on above: Result Comment: Plea se note:LIPASE revised reference range effective 23.New Lipase methodology. Expected to produce lower valuesthan the previous assay method.NEW Reference Range: 13 - 75 U/L Performed By: #### L 100.0100, L500.2500, L501.2450, L500.3400, L501.9520, L501.4021, L501.5200 ####[facility] [address] [place], [address] Lipase measurementOrdered By : Inderjit Gilmore on 02-06-2025 Lipase [Catalytic activity/Vol] 30 U/L 13-75 [facility] Comment on above: Please note:LIPASE r evised reference range effective 23. New Lipase methodology. Expected to produce lower values than the previous assay method. NEW Reference Range: 13 - 75 U/L Liver Profileon 02-06-2025 Albumin [Mass/Vol] 3.7 g/dL Normal 3.4-4.8 [facility] Comment on above: Performed By: #### L 100.0100, L500.2500, L501.2450, L500.3400, L501.9520, L501.4021, L501.5200 ####[facility] [address] [place], [place], [id number] ALK PHOS 74 U/L Normal 35-104 [facility] Comment on above: Performed By: #### L 100.0100, L500.2500, L501.2450, L500.3400, L501.9520, L501.4021, L501.5200 ####[facility] [address] [place], [place], [phone] ALT [Catalytic activity/Vol] 17 U/L Normal <=34 [facility] Comment on above: Performed By: #### L 100.0100, L500.2500, L501.2450, L500.3400, L501.9520, L501.4021, L501.5200 ####[facility] [address] [place], [place], [phone] AST [Catalytic activity/Vol] 26 U/L Normal <=31 [facility] Comment on above: Result Comment: Hemo lysis present, Results??could be affected.?? Performed By: #### L 100.0100, L500.2500, L501.2450, L500.3400, L501.9520, L501.4021, L501.5200 ####[facility] [address] [place], [address] Bilirubin [Mass/Vol] 0.51 mg/dL Normal 0.00-1.30 [facility] Comment on above: Performed By: #### L 100.0100, L500.2500, L501.2450, L500.3400, L501.9520, L501.4021, L501.5200 ####[facility] [address] [place], [address] Bilirubin.direct [Mass/Vol] 0.17 mg/dL Normal 0.00-0.30 [facility] Comment on above: Result Comment: Hemo lysis present, Results??could be affected.?? Performed By: #### L 100.0100, L500.2500, L501.2450, L500.3400, L501.9520, L501.4021, L501.5200 ####[facility] [address] [place], [address] Globulin (S) [Mass/Vol] 3.3 g/dL Normal 2.2-4.2 [facility] Comment on above: Performed By: #### L 100.0100, L500.2500, L501.2450, L500.3400, L501.9520, L501.4021, L501.5200 ####[facility] [address] [place], [address] T PROT 6.9 g/dL Normal 5.9-8.4 [facility] Comment on above: Performed By: #### L 100.0100, L500.2500, L501.2450, L500.3400, L501.9520, L501.4021, L501.5200 ####[facility] [address] [place], [address] Lymphocytes Auto (Unsp spec) [#/Vol]Ordered By: Inderjit Gilmore on 02-06-2025 Lymphocytes (Bld) [#/Vol] 1.68 10*3/uL 0.83-4.51 [facility] Lymphocytes/100 WBC Auto (Un sp spec)Ordered By: Inderjit Gilmore on 02-06-2025 Lymphocytes/100 WBC (Bld) 14.7 % Low 19-41 [facility] MCV (mean corpuscular volume ) determinationOrdered By: Inderjit Gilmore on 02-06-2025 MCV (RBC) [Entitic vol] 93.2 fL 81-[address] [facility] Magnesiumon 02-06-2025 Magnesium [Mass/Vol] 2.1 mg/dL Normal 1.5-2.2 [facility] Comment on above: Performed By: #### L 100.0100, L500.2500, L501.2450, L500.3400, L501.9520, L501.4021, L501.5200 ####[facility] [address] [place], [place], [id number] Magnesium (Unsp spec) [Mass/ Vol]Ordered By: Inderjit Gilmore on 02-06-2025 Magnesium [Mass/Vol] 2.1 mg/dL 1.5-2.2 [facility] Magnesium measurement (mass/ volume)Ordered By: Inderjit Gilmore on 02-06-2025 Magnesium (Unsp spec) [Mass/Vol] 2.1 mg/dL 1.5-2.2 [facility] Mean corpuscular hemoglobin (MCH) determinationOrdered By: Inderjit Gilmore on 02-06-2025 MCH (RBC) [Entitic mass] 32.2 pg High 27.0-32.0 [facility] Mean corpuscular hemoglobin concentration (MCHC) determinationOrdered By: Inderjit Gilmore on 02-06-2025 MCHC (RBC) [Mass/Vol] 34.5 g/dL 32-36 [facility] Mean platelet volume determi nationOrdered By: Inderjit Gilmore on 02-06-2025 Platelet mean volume (Bld) [Entitic vol] 10.3 fL 6.2-12.0 [facility] Microscopic analysis of urin e for red blood cells (RBC)Ordered By: Inderjit Gilmore on 02-06-2025 Microscopic analysis of urine for red blood cells (RBC) 0-5 SEEN /hpf 0-5 [facility] Urine RBC 0-5 SEEN /hpf 0-5 [facility] Monocyte percentageOrdered B y: Inderjit Gilmore on 02-06-2025 Monocytes/100 WBC (Bld) 6.0 % 0-[address] [facility] Mucus LM Ql (Urine sed)Order ed By: Inderjit Gilmore on 02-06-2025 Mucus Ql (Urine sed) 0 SEEN /hpf [facility] Neutrophil percentageOrdered By: Inderjit Gilmore on 02-06-2025 Neutrophils/100 WBC (Bld) 76.3 % High 47-70 [facility] Nitrite Test strip Ql (U)Ord ered By: Inderjit Gilmore on 02-06-2025 Nitrite Ql (U) Negative Negative [facility] No Panel InformationOrdered By: Inderjit Gilmore on 02-06-2025 26 U/L <32 [facility] Nucleated red blood cell per centageOrdered By: Inderjit Gilmore on 02-06-2025 Nucleated RBC/100 WBC (Bld) [Ratio] 0 % 0-5 [facility] Platelet countOrdered By: Huy Gilmore on 02-06-2025 Platelets (Bld) [#/Vol] 216 10*3/uL 150-450 [facility] Potassium (Unsp spec) [Mass/ Vol]Ordered By: Inderjit Gilmore on 02-06-2025 Potassium [Moles/Vol] 4.6 mmol/L 3.3-5.1 [facility] Comment on above: Hemolysis present, R esults could be affected. Potassium measurement (mass/ volume)Ordered By: Inderjit Gilmore on 02-06-2025 Potassium (Unsp spec) [Mass/Vol] 4.6 mmol/L 3.3-5.1 [facility] Comment on above: Hemolysis present, R esults could be affected. Protein Test strip Ql (U)Ord ered By: Inderjit Gilmore on 02-06-2025 Protein Ql (U) 30 mg/dl High Negative [facility] RBC Auto (Bld) [#/Vol]Ordere d By: Inderjit Gilmore on 02-06-2025 RBC (Bld) [#/Vol] 3.70 10*6/uL Low 4.2-5.4 [facility] Serum creatinine measurement (mass/volume)Ordered By: Inderjit Gilmore on 02-06-2025 Creatinine [Mass/Vol] 1.06 mg/dL 0.70-1.20 [facility] Serum globulin measurementOr dered By: Inderjit Gilmore on 02-06-2025 Globulin (S) [Mass/Vol] 3.3 g/dL 2.2-4.[address] [facility] Serum glucose measurement (m ass/volume)Ordered By: Inderjit Gilmore on 02-06-2025 Glucose [Mass/Vol] 110 mg/dL High 70-99 [facility] Serum or plasma alanine tovar otransferase (ALT) measurementOrdered By: Inderjit Gilmore on 02-06-2025 ALT [Catalytic activity/Vol] 17 U/L <35 [facility] Serum or plasma albumin rosalina urement (mass/volume)Ordered By: Inderjit Gilmore on 02-06-2025 Albumin [Mass/Vol] 3.7 g/dL 3.4-4.8 [facility] Serum or plasma alkaline blanche sphatase measurementOrdered By: Inderjit Gilmore on 02-06-2025 ALP [Catalytic activity/Vol] 74 U/L 35-104 [facility] Serum or plasma calcium rosalina urement (mass/volume)Ordered By: Inderjit Gilmore on 02-06-2025 Calcium [Mass/Vol] 9.4 mg/dL 7.6-11.0 [facility] Serum or plasma urea nitroge n measurement (mass/volume)Ordered By: Inderjit Gilmore on 02-06-2025 Urea nitrogen [Mass/Vol] 21 mg/dL High 4-19 [facility] Sodium levelOrdered By: Marcin Gilmore on 02-06-2025 Sodium [Moles/Vol] 138 mmol/L 133-145 [facility] Squamous epithelial cells de tection in urine sediment by light microscopyOrdered By: Inderjit Gilmore on 02-06-2025 Epithelial cells.squamous LM Ql (Urine sed) 0-5 SEEN /hpf 5-10 [facility] TSH DL <= 0.005 mIU/L QnOrde red By: Inderjit Gilmore on 02-06-2025 Thyroid Stimulating Hormone (TSH) 3.970 uIU/mL 0.300-4.200 [facility] TSH Qn 3.970 uIU/mL 0.300-4.200 [facility] Thyroid Stim Hormone (TSH)on 02-06-2025 TSH 3.970 uIU/mL Normal 0.300-4.200 [facility] Comment on above: Performed By: #### L 100.0100, L500.2500, L501.2450, L500.3400, L501.9520, L501.4021, L501.5200 ####[facility] [address] [place], [address] Total proteinOrdered By: Wallace Gilmore on 02-06-2025 Protein [Mass/Vol] 6.9 g/dL 5.9-8.4 [facility] Troponin T.cardiac High sens itivity method [Mass/Vol]Ordered By: Inderjit Gilmore on 02-06-2025 Troponin T High Sensitivity 2 Hour 841 ng/L High <14 [facility] Comment on above: Critical Result(s) C alled at 02/06/2025-12:23 by Ashu Layton Results read back by same. Troponin T High Sensitivity 846 ng/L High <14 [facility] Comment on above: Delta: 307 on -1108Critical Result(s) Called at 1009: by: WEN LOVE. Results read back by same. Troponin T.cardiac [Mass/vol ume] in Serum or Plasma by High sensitivity methodOrdered By: Inderjit Gilmore on 02-06-2025 Troponin T.cardiac High sensitivity method [Mass/Vol] 841 ng/L High <14 [facility] Comment on above: Critical Result(s) C alled at 02/06/2025-12:23 by Ashu Layton Results read back by same. Troponin T.cardiac High sensitivity method [Mass/Vol] 846 ng/L High <14 [facility] Comment on above: Delta: 307 on -1108Critical Result(s) Called at 1009: by: WEN QUIÑONES TO KATE. Results read back by same. Urinalysis, Completeon 02-06 EPI,SQUAMOUS 0-5 SEEN Normal 5-10 [facility] Comment on above: Order Comment: CLEAN CATCH Performed By: #### L 400.0001 ####[facility] [address] [place], [address] RBC 0-5 SEEN Normal 0-5 [facility] Comment on above: Order Comment: CLEAN CATCH Performed By: #### L 400.0001 ####[facility] [address] [place], [address] WBC 0-5 SEEN Normal 0-5 [facility] Comment on above: Order Comment: CLEAN CATCH Performed By: #### L 400.0001 ####[facility] [address] [facility] [address] BACTERIA 0 SEEN Normal None Seen [facility] Comment on above: Order Comment: CLEAN CATCH Performed By: #### L 400.0001 ####[facility] [address] [place], [address] Mucus Ql (Urine sed) 0 SEEN Normal [facility] Comment on above: Order Comment: CLEAN CATCH Performed By: #### L 400.0001 ####[facility] [address] [place], [address] Urine blood detectionOrdered By: Inderjit Gilmore on 02-06-2025 Urine Occult Blood 150 /ul High Negative [facility] Urine clarityOrdered By: Wallace Gilmore on 02-06-2025 Clarity (U) Clear Clear [facility] Urine color determinationOrd ered By: Inderjit Gilmore on 02-06-2025 Color (U) Straw Yellow [facility] Urine glucose detectionOrder ed By: Inderjit Gilmore on 02-06-2025 Glucose Ql (U) Normal mg/dl Normal [facility] Urine leukocyte esterase det ection by dipstickOrdered By: Inderjit Gilmore on 02-06-2025 Leukocyte esterase Test strip Ql (U) Negative Negative [facility] Urine pHOrdered By: Inderjit vilchis on 02-06-2025 pH (U) 7.0 [pH] 5.0 - 8.0 [facility] Urine sediment bacteria coun t by microscopy (number/high power field)Ordered By: Inderjit Gilmore on 02-06-2025 Bacteria LM.HPF (Urine sed) [#/Area] 0 /[HPF] None Seen [facility] Urine specific gravity measu rementOrdered By: Inderjit Gilmore on 02-06-2025 Specific gravity (U) [Rel density] 1.005 1.002-1.030 [facility] Urine urobilinogen measureme ntOrdered By: Inderjit Gilmore on 02-06-2025 Urobilinogen Ql (U) Normal mg/dl Normal [facility] Urobilinogen Ql (U)Ordered B y: Inderjit Gilmore on 02-06-2025 Urine Urobilinogen Normal mg/dl Normal [facility] White blood cell (WBC) count Ordered By: Inderjit Gilmore on 02-06-2025 WBC (Bld) [#/Vol] 11.5 10*3/uL High 4.4-11.0 [facility] White blood cell countOrdere d By: Inderjit Gilmore on 02-06-2025 Urine WBC 0-5 SEEN /hpf 0-5 [facility] White blood cell count 0-5 SEEN /hpf 0-5 [facility] 12 Lead EKGon 02-05-2025 12 Lead EKG Normal [facility] Anion gap in Serum or Plasma Ordered By: Adan Galindo on 02-05-2025 Anion gap [Moles/Vol] 10 mmol/L - [facility] BUN/creatinine ratioOrdered By: Adan Galindo on 02-05-2025 Urea nitrogen/Creatinine [Mass ratio] 17.6 mg/mg 10-20 [facility] Bilirubin, totalOrdered By: Adan Galindo on 02-05-2025 Bilirubin [Mass/Vol] 0.45 mg/dL 0.00-1.30 [facility] CBC-Complete Blood Cnt No Sarah borden 02-05-2025 Erythrocyte distribution width (RBC) [Ratio] 14.1 % Normal 11.6-14.6 [facility] Comment on above: Performed By: #### L 500.4050, L100.0500 ####[facility] [address] [place], [address] Hematocrit (Bld) [Volume fraction] 34.4 % Low 37-47 [facility] Comment on above: Performed By: #### L 500.4050, L100.0500 ####[facility] [address] [place], [address] Hemoglobin (Bld) [Mass/Vol] 11.4 g/dL Low 12.0-15.0 [facility] Comment on above: Performed By: #### L 500.4050, L100.0500 ####[facility] [address] [place], [address] MCH (RBC) [Entitic mass] 31.4 pg Normal 27.0-32.0 [facility] Comment on above: Performed By: #### L 500.4050, L100.0500 ####[facility] [address] [place], [address] MCHC (RBC) [Mass/Vol] 33.1 g/dL Normal 32-36 [facility] Comment on above: Performed By: #### L 500.4050, L100.0500 ####[facility] [address] [place], [address] MCV (RBC) [Entitic vol] 94.8 fL Normal 81-99 [facility] Comment on above: Performed By: #### L 500.4050, L100.0500 ####[facility] [address] [place], [address] Platelet mean volume (Bld) [Entitic vol] 10.4 fL Normal 6.2-12.0 [facility] Comment on above: Performed By: #### L 500.4050, L100.0500 ####[facility] [address] [place], [address] Platelets (Bld) [#/Vol] 205 10*3/uL Normal 150-450 [facility] Comment on above: Performed By: #### L 500.4050, L100.0500 ####[facility] [address] [place], [address] RBC (Bld) [#/Vol] 3.63 10*6/uL Low 4.2-5.4 [facility] Comment on above: Performed By: #### L 500.4050, L100.0500 ####[facility] [address] [place], [address] RDW SD 48.9 fl High 35.1-43.9 [facility] Comment on above: Performed By: #### L 500.4050, L100.0500 ####[facility] [address] [place], [address] WBC (Bld) [#/Vol] 10.5 10*3/uL Normal 4.4-11.0 [facility] Comment on above: Performed By: #### L 500.4050, L100.0500 ####[facility] [address] [place], [address] Carbon dioxide, total [Moles /volume] in Central venous bloodOrdered By: Adan Galindo on 02-05-2025 CO2 [Moles/Vol] 22.1 mmol/L 21.0-32.0 [facility] Cardiac Cath Interventionon 02-05-2025 Cardiac Cath Intervention Normal [facility] Cardiac catheterization repo rtOrdered By: Adan Galindo on 02-05-[address] [facility] Imaging Services [address] [place] [address] Cardiac Cath Intervention MR#: [id number] Acct: [id number] Name: MILY LONG Rep #:[id number] : 1960 64 From: Adan padilla MD PCP: Dr. Florin Bailey, DO Status:ADM IN Patient Name: MILY LONG Study Date: 02/04/2025 Performing: Titus Galindo MD Ht: 67 inches 170.18 cm : 1960 Wt: 162.5 lbs 73.6 kg Age: 64 Gender: female BSA: 1.85 PROCEDURE(S) PERFORMED DC02-(22927)LHC/COR IC12-(24944/C9600)FREDDIE W/WO PTCA, SINGLE CORONARY ARTERY IC02-(49051)PTCA, EACH ADD'L CORONARY ART, SAME MAJOR CLINICAL PROFILE AND CO-MORBIDITIES Indications: ACS <= 24 hrs, NSTEMI Heart Failure: None CONCLUSIONS CAD as described. Successful FREDDIE to mLCx and PTCA alone to D1. RECOMMENDATIONS DESCRIPTION OF PROCEDURE The patient arrived to the procedure lab. The risks and benefits of the procedure as well as a full description of our services here and lack of surgical backup were fully explained to the patient and/or their significant other prior to the catheterization. The Timeout was completed, verifying the correct patient and procedure. The patient's procedural site was prepped and draped in the usual fashion. Local anesthetic was given subcutaneously to right radial region with Lidocaine 2%. Local anesthetic was given subcutaneously to right groin region with Lidocaine 2%. Using a modified Seldinger technique, and ultrasound guidance,arterial access was obtained via the right femoral artery, with Micropuncture set. Left Coronary Artery selective angiography was performed in multiple views using a 5 Fr. JL3.5 catheter. Right Coronary Artery selective angiography was then performed in multiple views using a 5 Fr. JR 4 catheterThe images were reviewed and options discussed. A decision was then made to proceed with an Intervention, IVUS or other adjunct procedure. xb3 Guide catheter was inserted and engaged into the LCA. bmw Guide wire was advanced to the Circumflex. emerge 2.5 x 20 Balloon catheter was advanced across lesion in the circumflex, mid. PTCA balloon inflated at 6 atms for 10 secs. PTCA balloon inflated at 6 atms for 25 secs. Angiogram performed post balloon dilatation. orsiro 2.5 x 40 Drug Eluting stent was advanced across the lesion in the circumflex, mid. Angiogram performed post stent deployment. bmw Guide wire was repositioned to the Diagonal emerge 1.5 x 15 Balloon catheter was advanced across lesion in the first diagonal, ostial. PTCA balloon inflated at 12 atms for 14 secs. PTCA balloon inflated at 14 atms for 14 secs. PTCA balloon inflated at 6 atms for 11 secs. Angiogram performed post balloon dilatation. Contrast was injected through the sheath and the Right Iliac and Femoral artery were assessed for possible closure device. The arterial sheath was pulled and a Perclose closure device was deployed for hemostasis. The arterial sheath was pulled and a Perclose closure device was deployed for hemostasis CORONARY ANGIOGRAPHY DOMINANCE: Right Dominant LEFT MAIN: Mild luminal irregularities LEFT ANTERIOR DESCENDING ARTERY: Mild luminal irregularities PROX LAD: Previously placed stent is patent MID LAD: 30 % Stenosis DIAGONAL 1: Ostial - 95 % Stenosis CIRCUMFLEX ARTERY: MID CIRC: 99 % Stenosis with thrombus RIGHT CORONARY ARTERY: OSTIAL RCA: 40 % Stenosis MID RCA: 30 % Stenosis INTERVENTION INFORMATION LESION SITE: Circumflex (Mid) Lesion Complexity: High/C, chronic total occlusion: No, lesion at bifurcation: No, thrombus present: Yes, lesion length: 39 mm, culprit lesion: Yes, Previously treated lesion: No, In-stent restenosis: No Pre Stenosis: 99 % Pre intervention MYESHA flow: 2 PROCEDURE: Drug Eluting Stent with pre dilatation. Post Stenosis: 0 % Post intervention MYESHA flow: 3 Lesion Devices: Cordis 6 Fr XB3.0 100cm Guide Catheter Millard .014 190cm [employer] [place] Straight Biotronik Orsiro [place] MR FREDDIE 2.5x40 Darius Sci EMERGE MR 2.50x20 BALLOON LESION SITE: 1st Diagonal (Ostial) Lesion Complexity: High/C, chronic total occlusion: No, lesion at bifurcation: Yes, thrombus present: No, lesion length: 18 mm, culprit lesion: Yes, Previously treated lesion: Yes, Previously treated with a stent: No Pre Stenosis: 95 % Pre intervention MYESHA flow: 3 PROCEDURE: Balloon Angioplasty small vessel. PTCA alone was performed with a 1.5mm balloon Post Stenosis: 40 % Post intervention MYESHA flow: 3 Lesion Devices: Cordis 6 Fr XB3.0 100cm Guide Catheter Millard .014 190cm [employer] [place] Straight Darius Sci EMERGE MR 1.50x15 BALLOON COMPLICATIONS No Complications PROCEDURE MEDICATIONS Versed 1 mg IV Fentanyl 50 mcg IV Oxygen: 2 L/min via nasal cannula Heparin 5000 unit(s) IV 02/04/2025 14:43:56 Nitro 100 mcg IC 02/04/2025 14:39:48 SUMMARY OF HEMODYNAMIC DATA Time AIR REST ECG 13:46:09 AO 106/56 (75) SA 14:32:16 Signed By Titus Galindo MD On 02/05/2025 13:04:53 __ (more content not included)... [facility] Work Phone: [phone] Chloride assayOrdered By: Rose Galindo on 02-05-2025 Chloride [Moles/Vol] 106 mmol/L 98-108 [facility] Comprehensive Metabolic Prof ilon 02-05-2025 Albumin [Mass/Vol] 3.5 g/dL Normal 3.4-4.8 [facility] Comment on above: Performed By: #### L 500.4050, L100.0500 ####[facility] [address] [facility] [place], [address] Albumin/Globulin [Mass ratio] 1.3 {ratio} Normal 0.9-2.4 [facility] Comment on above: Performed By: #### L 500.4050, L100.0500 ####[facility] [address] [place], [address] ALK PHOS 68 U/L Normal 35-104 [facility] Comment on above: Performed By: #### L 500.4050, L100.0500 ####[facility] [address] [place], [address] ALT [Catalytic activity/Vol] 16 U/L Normal <=34 [facility] Comment on above: Performed By: #### L 500.4050, L100.0500 ####[facility] [address] [place], [address] AST [Catalytic activity/Vol] 34 U/L High <=31 [facility] Comment on above: Performed By: #### L 500.4050, L100.0500 ####[facility] [address] [place], [address] Bilirubin [Mass/Vol] 0.45 mg/dL Normal 0.00-1.30 [facility] Comment on above: Performed By: #### L 500.4050, L100.0500 ####[facility] [address] [place], [address] BUN/CRE 17.6 RATIO Normal 10-20 [facility] Comment on above: Performed By: #### L 500.4050, L100.0500 ####[facility] [address] [place], [address] Calcium [Mass/Vol] 9.0 mg/dL Normal 7.6-11.0 [facility] Comment on above: Performed By: #### L 500.4050, L100.0500 ####[facility] [address] [place], [address] Chloride [Moles/Vol] 106 mmol/L Normal 98-108 [facility] Comment on above: Performed By: #### L 500.4050, L100.0500 ####[facility] [address] [place], [address] CO2 [Moles/Vol] 22.1 mmol/L Normal 21.0-32.0 [facility] Comment on above: Performed By: #### L 500.4050, L100.0500 ####[facility] [address] [place], [address] Creatinine [Mass/Vol] 1.02 mg/dL Normal 0.70-1.20 [facility] Comment on above: Performed By: #### L 500.4050, L100.0500 ####[facility] [address] [place], [address] ECRCL 52.76 ml/min Normal 50-250 [facility] Comment on above: Performed By: #### L 500.4050, L100.0500 ####[facility] [address] [place], [address] GAP 10 Normal 5-15 [facility] Comment on above: Performed By: #### L 500.4050, L100.0500 ####[facility] [address] [place], [address] GFR/1.73 sq M.predicted among non-blacks MDRD (S/P/Bld) [Vol rate/Area] 61 mL/min/{1.73_m2} Normal >60 [facility] Comment on above: Result Comment: mL/m in/1.73m2 CKD-EPI Creatinine Equation (2020) Performed By: #### L 500.4050, L100.0500 ####[facility] [address] [place], [address] Globulin (S) [Mass/Vol] 2.8 g/dL Normal 2.2-4.2 [facility] Comment on above: Performed By: #### L 500.4050, L100.0500 ####[facility] [address] [place], [address] Glucose [Mass/Vol] 92 mg/dL Normal 70-99 [facility] Comment on above: Performed By: #### L 500.4050, L100.0500 ####[facility] [address] [place], [address] Potassium [Moles/Vol] 4.3 mmol/L Normal 3.3-5.1 [facility] Comment on above: Performed By: #### L 500.4050, L100.0500 ####[facility] [address] [place], [address] Sodium [Moles/Vol] 139 mmol/L Normal 133-145 [facility] Comment on above: Performed By: #### L 500.4050, L100.0500 ####[facility] [address] [place], [address] T PROT 6.2 g/dL Normal 5.9-8.4 [facility] Comment on above: Performed By: #### L 500.4050, L100.0500 ####[facility] [address] [place], [address] Urea nitrogen [Mass/Vol] 18 mg/dL Normal 4-19 [facility] Comment on above: Performed By: #### L 500.4050, L100.0500 ####[facility] [address] [place], [address] Discharge Instructionon 01-22 Discharge Instruction Normal [facility] Electrocardiogram reportOrde red By: Deondre Leavitt on 02-05-[address] [facility] Cardiovascular Services [address] [place] [place] [address] 12 Lead EKG 02/05/25 0505 MR#: [id number] Acct: [id number] Name: MILY LONG Rep #:[id number] : 1960 64 From: Deondre garcía MD Attending Dr: Dr. Estrella Hanna MD Status: ADM IN Ordering Dr: Adan Galindo MD ate: 02/05/25 Location: [facility] Sex: F C Admitted: 02/04/25 Test Reason : AM EKG Blood Pressure : */* mmHG Vent. Rate : 69 BPM Atrial Rate : 69 BPM P-R Int : 126 ms QRS Dur : 58 ms QT Int : 384 ms P-R-T Axes : 49 71 88 degrees QTcB Int : 411 ms Normal sinus rhythm Nonspecific ST and T wave abnormality Abnormal ECG When compared with ECG of 04-Feb-2025 12:39, MANUAL COMPARISON REQUIRED DATA IS UNCONFIRMED Confirmed by Deondre Leavitt ([id number]), editor index LISETTE PINEDA ([id number]) on :33:25 AM Referred By: Confirmed By: Deondre Leavitt 02/05/25 1133 Date _ Deondre Leavitt MD CC: Dr. Adan Galindo MD; Dr. Estrella Hanna MD; Dr. Florin Bailey DO~ Signed [facility] Work Phone: EKG study [facility] Cardiovascular Services [address] [place] [address] 12 Lead EKG 02/04/25 1239 MR#: [id number] Acct: [id number] Name: MILY LONG Rep #:[id number] : 1960 64 From: Deondre garcía MD Attending Dr: Dr. Estrella Hanna MD Status: ADM IN Ordering Dr: Orlando Abdi MD Date: 02/04/25 Location: [facility] Sex: F C Admitted: 02/04/25 Test Reason : REPEAT Blood Pressure : */* mmHG Vent. Rate : 89 BPM Atrial Rate : 89 BPM P-R Int : 148 ms QRS Dur : 62 ms QT Int : 354 ms P-R-T Axes : 46 49 82 degrees QTcB Int : 430 ms Normal sinus rhythm Nonspecific ST abnormality Abnormal ECG Confirmed by Deondre Leavitt ([id number]), editor index LISETTE PINEDA ([id number]) on :27:29 AM Referred By: Confirmed By: Deondre Leavitt 02/05/25 1127 Date _ Deondre Leavitt MD CC: Dr. Orlando Abdi MD; Dr. Estrella Hanna MD; Dr. Florin Bailey DO ~ Signed [facility] Work Phone: [phone] EKG study [facility] Cardiovascular Services [address] [place] [address] 12 Lead EKG 02/04/25 1036 MR#: [id number] Acct: [id number] Name: MILY LONG Rep #:[id number] : 1960 64 From: Doendre garcía MD Attending Dr: Dr. Estrella Hanna MD Status: ADM IN Ordering Dr: Orlando Abdi MD Date: 02/04/25 Location: [facility] Sex: F C Admitted: 02/04/25 Test Reason : CP Blood Pressure : */* mmHG Vent. Rate : 73 BPM Atrial Rate : 73 BPM P-R Int : 138 ms QRS Dur : 62 ms QT Int : 352 ms P-R-T Axes : * 129 96 degrees QTcB Int : 387 ms Normal sinus rhythm Nonspecific ST/T wave changes Limb leads reversed Abnormal ECG Confirmed by Deondre Leavitt ([id number]), editor index LISETTE PINEDA ([id number]) on 1:26:29 AM Referred By: DEISY Confirmed By: Deondre Leavitt 02/05/25 1126 Date _ Deondre Leavitt MD CC: Dr. Orlando Abdi MD; Dr. Estrella Hanna MD; Dr. Florin Bailey, DO ~ Signed [facility] Work Phone: [phone] Erythrocyte distribution wid th (RBC) [Ratio]Ordered By: Adan Galindo on 02-05-2025 Erythrocyte distribution width (RBC) [Entitic vol] 48.9 fL High 35.1-43.9 [facility] Erythrocyte distribution wid th ratioOrdered By: Adan Galindo on 02-05-2025 Erythrocyte distribution width (RBC) [Ratio] 14.1 % 11.6-14.6 [facility] Erythrocyte distribution wid th standard deviationOrdered By: Adan Galindo on 02-05-2025 Erythrocyte distribution width (RBC) [Ratio] 48.9 fl High 35.1-43.9 [facility] Estimation of creatinine christopher aranceOrdered By: Adan Galinod on 02-05-2025 Estimated Creatinine Clearance Calc 52.76 ml/min 50-250 [facility] GFR/1.73 sq M.predicted dinesh g non-blacks MDRD (S/P/Bld) [Vol rate/Area]Ordered By: Adan Galindo on 02-05-2025 Estimated GFR (MDRD) Non-Af Amer 61 >60 [facility] Comment on above: mL/min/1.73m2 CKD-EP I Creatinine Equation (2020) Glomerular filtration rate ( GFR) estimation/1.73 sq m using serum, plasma, or whole bOrdered By: Adna Galindo on 02-05-2025 GFR/1.73 sq M.predicted among non-blacks MDRD (S/P/Bld) [Vol rate/Area] 61 mL/min/{1.73_m2} >60 [facility] Comment on above: mL/min/1.73m2 CKD-EP I Creatinine Equation (2020) Hematocrit Auto (Bld) [Volum e fraction]Ordered By: Adan Galindo on 02-05-2025 Hematocrit (Bld) [Volume fraction] 34.4 % Low 37-47 [facility] Hemoglobin measurementOrdere d By: Adan Galindo on 02-05-2025 Hemoglobin (Bld) [Mass/Vol] 11.4 g/dL Low 12.0-15.0 [facility] Laboratory - Chemistry and C hemistry - challengeOrdered By: Adan Galindo on 02-05-2025 AST [Catalytic activity/Vol] 34 U/L High <32 [facility] MCV (mean corpuscular volume ) determinationOrdered By: Adan Galindo on 02-05-2025 MCV (RBC) [Entitic vol] 94.8 fL 81-[address] [facility] Mean corpuscular hemoglobin (MCH) determinationOrdered By: Adan Galindo 02-05-2025 MCH (RBC) [Entitic mass] 31.4 pg 27.0-32.0 [facility] Mean corpuscular hemoglobin concentration (MCHC) determinationOrdered By: Adan Galindo on 02-05-2025 MCHC (RBC) [Mass/Vol] 33.1 g/dL 32-36 [facility] Mean platelet volume determi nationOrdered By: Adan Galindo on 02-05-2025 Platelet mean volume (Bld) [Entitic vol] 10.4 fL 6.2-12.0 [facility] No Panel InformationOrdered By: Adan Galindo on 02-05-2025 34 U/L High <32 [facility] Platelet countOrdered By: Rose Galindo on 02-05-2025 Platelets (Bld) [#/Vol] 205 10*3/uL 150-450 [facility] Potassium (Unsp spec) [Mass/ Vol]Ordered By: Adan Galindo on 02-05-2025 Potassium [Moles/Vol] 4.3 mmol/L 3.3-5.1 [facility] Potassium measurement (mass/ volume)Ordered By: Adan Galindo on 02-05-2025 Potassium (Unsp spec) [Mass/Vol] 4.3 mmol/L 3.3-5.1 [facility] RBC Auto (Bld) [#/Vol]Ordere d By: Adan Galindo on 02-05-2025 RBC (Bld) [#/Vol] 3.63 10*6/uL Low 4.2-5.4 [facility] Serum creatinine measurement (mass/volume)Ordered By: Adan Galindo on 02-05-2025 Creatinine [Mass/Vol] 1.02 mg/dL 0.70-1.20 [facility] Serum globulin measurementOr dered By: Adan Galindo on 02-05-2025 Globulin (S) [Mass/Vol] 2.8 g/dL 2.2-4.[address] [facility] Serum glucose measurement (m ass/volume)Ordered By: Adan Galindo on 02-05-2025 Glucose [Mass/Vol] 92 mg/dL 70-99 [facility] Serum or plasma alanine tovar otransferase (ALT) measurementOrdered By: Adan Galindo on 02-05-2025 ALT [Catalytic activity/Vol] 16 U/L <35 [facility] Serum or plasma albumin rosalina urement (mass/volume)Ordered By: Adan Galindo on 02-05-2025 Albumin [Mass/Vol] 3.5 g/dL 3.4-4.8 [facility] Serum or plasma albumin/glob ulin mass ratioOrdered By: Adan Galindo on 02-05-2025 Albumin/Globulin [Mass ratio] 1.3 {ratio} 0.9-2.4 [facility] Serum or plasma alkaline blanche sphatase measurementOrdered By: Adan Galindo on 02-05-2025 ALP [Catalytic activity/Vol] 68 U/L 35-104 [facility] Serum or plasma calcium rosalina urement (mass/volume)Ordered By: Adan Galindo on 02-05-2025 Calcium [Mass/Vol] 9.0 mg/dL 7.6-11.0 [facility] Serum or plasma urea nitroge n measurement (mass/volume)Ordered By: Adan Galindo on 02-05-2025 Urea nitrogen [Mass/Vol] 18 mg/dL 4-19 [facility] Sodium levelOrdered By: Amando Galindo on 02-05-2025 Sodium [Moles/Vol] 139 mmol/L 133-145 [facility] Total proteinOrdered By: Luigi Galindo on 02-05-2025 Protein [Mass/Vol] 6.2 g/dL 5.9-8.4 [facility] White blood cell (WBC) count Ordered By: Adan Galindo on 02-05-2025 WBC (Bld) [#/Vol] 10.5 10*3/uL 4.4-11.0 [facility] 12 Lead EKGon 02-04-2025 12 Lead EKG Normal [facility] Absolute lymphocyte countOrd ered By: Orlando Abdi on 02-04-2025 Lymphocytes Auto (Unsp spec) [#/Vol] 1.61 10*3/uL 0.83-4.51 [facility] Absolute neutrophil countOrd ered By: Orlando Abdi on 02-04-2025 Neutrophils (Bld) [#/Vol] 8.2 10*3/uL High 2.0-7.7 [facility] Activated partial thrombopla stin time (aPTT) in platelet poor plasma by coagulation aOrdered By: Adan Galindo on 02-04-2025 aPTT Coag (Bld) [Time] 46.4 s High 24.1-36.2 [facility] Comment on above: Performed By: #### L 300.4310 ####[facility] [address] [place], [address] aPTT Coag (PPP) [Time] 46.4 s High 24.1-36.2 [facility] Anion gap in Serum or Plasma Ordered By: Orlando Abdi on 02-04-2025 Anion gap [Moles/Vol] 12 mmol/L 5- [facility] Automated lymphocyte count a s percentage of total leukocytesOrdered By: Orlando Abdi on 02-04-2025 Lymphocytes/100 WBC Auto (Unsp spec) 15.1 % Low 19-41 [facility] BUN/creatinine ratioOrdered By: Orlando Abdi on 02-04-2025 Urea nitrogen/Creatinine [Mass ratio] 18.6 mg/mg 10- [facility] Basic Metabolic Profile (BMP )on 02-04-2025 BUN/CRE 18.6 RATIO Normal - [facility] Comment on above: Performed By: #### L 100.0100, L500.2500, L501.4021 ####[facility] [address] [place], [address] Calcium [Mass/Vol] 9.2 mg/dL Normal 7.6-11.0 [facility] Comment on above: Performed By: #### L 100.0100, L500.2500, L501.4021 ####[facility] [address] [place], [address] Chloride [Moles/Vol] 107 mmol/L Normal 98-108 [facility] Comment on above: Performed By: #### L 100.0100, L500.2500, L501.4021 ####[facility] [address] [place], [address] CO2 [Moles/Vol] 21.0 mmol/L Normal 21.0-32.0 [facility] Comment on above: Performed By: #### L 100.0100, L500.2500, L501.4021 ####[facility] [address] [place], [address] Creatinine [Mass/Vol] 1.01 mg/dL Normal 0.70-1.20 [facility] Comment on above: Performed By: #### L 100.0100, L500.2500, L501.4021 ####[facility] [address] [place], [address] ECRCL 53.28 ml/min Normal 50-250 [facility] Comment on above: Performed By: #### L 100.0100, L500.2500, L501.4021 ####[facility] [address] [place], [address] GAP 12 Normal 5-15 [facility] Comment on above: Performed By: #### L 100.0100, L500.2500, L501.4021 ####[facility] [address] [place], [address] GFR/1.73 sq M.predicted among non-blacks MDRD (S/P/Bld) [Vol rate/Area] 61 mL/min/{1.73_m2} Normal >60 [facility] Comment on above: Result Comment: mL/m in/1.73m2 CKD-EPI Creatinine Equation (2020) Performed By: #### L 100.0100, L500.2500, L501.4021 ####[facility] [address] [place], [address] Glucose [Mass/Vol] 105 mg/dL High 70-99 [facility] Comment on above: Performed By: #### L 100.0100, L500.2500, L501.4021 ####[facility] [address] [place], [address] Potassium [Moles/Vol] 4.1 mmol/L Normal 3.3-5.1 [facility] Comment on above: Result Comment: Hemo lysis present, Results??could be affected.?? Performed By: #### L 100.0100, L500.2500, L501.4021 ####[facility] [address] [place], [address] Sodium [Moles/Vol] 140 mmol/L Normal 133-145 [facility] Comment on above: Performed By: #### L 100.0100, L500.2500, L501.4021 ####[facility] [address] [place], [address] Urea nitrogen [Mass/Vol] 19 mg/dL Normal 4-19 [facility] Comment on above: Performed By: #### L 100.0100, L500.2500, L501.4021 ####[facility] [address] [place], [address] Basophil percentageOrdered B y: Orlando Abdi on 02-04-2025 Basophils/100 WBC (Bld) 0.9 % 0-[address] [facility] CBC W/Diff, Automatedon 04- Absolute Lymph 1.61 X10 3/uL Normal 0.83-4.51 [facility] Comment on above: Performed By: #### L 100.0100, L500.2500, L501.4021 ####[facility] [address] [place], [address] Absolute Neut 8.2 X10 3/uL High 2.0-7.7 [facility] Comment on above: Performed By: #### L 100.0100, L500.2500, L501.4021 ####[facility] [address] [place], [address] Basophils/100 WBC (Bld) 0.9 % Normal 0-[address] [facility] Comment on above: Performed By: #### L 100.0100, L500.2500, L501.4021 ####[facility] [address] [place], [address] Eosinophils/100 WBC (Bld) 1.5 % Normal 0-5 [facility] Comment on above: Performed By: #### L 100.0100, L500.2500, L501.4021 ####[facility] [address] [place], [address] Erythrocyte distribution width (RBC) [Ratio] 14.2 % Normal 11.6-14.6 [facility] Comment on above: Performed By: #### L 100.0100, L500.2500, L501.4021 ####[facility] [address] [place], [address] Hematocrit (Bld) [Volume fraction] 37.0 % Normal 37-47 [facility] Comment on above: Performed By: #### L 100.0100, L500.2500, L501.4021 ####[facility] [address] [place], [address] Hemoglobin (Bld) [Mass/Vol] 12.3 g/dL Normal 12.0-15.0 [facility] Comment on above: Performed By: #### L 100.0100, L500.2500, L501.4021 ####[facility] [address] [place], [address] IG% 0.500 Normal 0.0-0.9 [facility] Comment on above: Result Comment: IG% - Immature Granulocytes (promyelocytes, myelocytes andmetamyelocytes) > 1% indicates that a LEFT SHIFT is Present. Performed By: #### L 100.0100, L500.2500, L501.4021 ####[facility] [address] [place], [address] Lymphocytes/100 WBC (Bld) 15.1 % Low 19-41 [facility] Comment on above: Performed By: #### L 100.0100, L500.2500, L501.4021 ####[facility] [address] [place], [address] MCH (RBC) [Entitic mass] 31.8 pg Normal 27.0-32.0 [facility] Comment on above: Performed By: #### L 100.0100, L500.2500, L501.4021 ####[facility] [address] [place], [address] MCHC (RBC) [Mass/Vol] 33.2 g/dL Normal 32-36 [facility] Comment on above: Performed By: #### L 100.0100, L500.2500, L501.4021 ####[facility] [address] [place], [address] MCV (RBC) [Entitic vol] 95.6 fL Normal 81-[address] [facility] Comment on above: Performed By: #### L 100.0100, L500.2500, L501.4021 ####[facility] [address] [place], [address] Monocytes/100 WBC (Bld) 4.9 % Normal 0-[address] [facility] Comment on above: Performed By: #### L 100.0100, L500.2500, L501.4021 ####[facility] [address] [place], [address] Neutrophils/100 WBC (Bld) 77.1 % High 47-70 [facility] Comment on above: Performed By: #### L 100.0100, L500.2500, L501.4021 ####[facility] [address] [place], [address] Nucleated RBC (Bld) [#/Vol] 0 10*3/uL Normal 0-5 [facility] Comment on above: Performed By: #### L 100.0100, L500.2500, L501.4021 ####[facility] [address] [place], [address] Platelet mean volume (Bld) [Entitic vol] 9.9 fL Normal 6.2-12.0 [facility] Comment on above: Performed By: #### L 100.0100, L500.2500, L501.4021 ####[facility] [address] [place], [address] Platelets (Bld) [#/Vol] 223 10*3/uL Normal 150-450 [facility] Comment on above: Performed By: #### L 100.0100, L500.2500, L501.4021 ####[facility] [address] [place], [address] RBC (Bld) [#/Vol] 3.87 10*6/uL Low 4.2-5.4 [facility] Comment on above: Performed By: #### L 100.0100, L500.2500, L501.4021 ####[facility] [address] [place], [address] RDW SD 49.9 fl High 35.1-43.9 [facility] Comment on above: Performed By: #### L 100.0100, L500.2500, L501.4021 ####[facility] [address] [place], [address] WBC (Bld) [#/Vol] 10.7 10*3/uL Normal 4.4-11.0 [facility] Comment on above: Performed By: #### L 100.0100, L500.2500, L501.4021 ####[facility] [address] [place], [address] Carbon dioxide, total [Moles /volume] in Central venous bloodOrdered By: Orlando Abdi on 02-04-2025 CO2 [Moles/Vol] 21.0 mmol/L 21.0-32.0 [facility] Chest 1 View (Portable)on Chest 1 View (Portable) Normal [facility] Chloride assayOrdered By: Bobbi Abdi on 02-04-2025 Chloride [Moles/Vol] 107 mmol/L 98-108 [facility] Consultation - Cardiologyon 02-04-2025 Consultation - Cardiology Normal [facility] Emergency Department Summary on 02-04-2025 Emergency Department Summary Normal [facility] Eosinophil percentageOrdered By: Orlando Abdi on 02-04-2025 Eosinophils/100 WBC (Bld) 1.5 % 0-5 [facility] Erythrocyte distribution wid th (RBC) [Ratio]Ordered By: Orlando Abdi on 02-04-2025 Erythrocyte distribution width (RBC) [Entitic vol] 49.9 fL High 35.1-43.9 [facility] Erythrocyte distribution wid th ratioOrdered By: Orlando Abdi on 02-04-2025 Erythrocyte distribution width (RBC) [Ratio] 14.2 % 11.6-14.6 [facility] Estimation of creatinine christopher aranceOrdered By: Orlando Abdi on 02-04-2025 Estimated Creatinine Clearance Calc 53.28 ml/min 50-250 [facility] GFR/1.73 sq M.predicted dinesh g non-blacks MDRD (S/P/Bld) [Vol rate/Area]Ordered By: Orlando Abdi on 02-04-2025 Estimated GFR (MDRD) Non-Af Amer 61 >60 [facility] Comment on above: mL/min/1.73m2 CKD-EP I Creatinine Equation (2020) H AND P Exam - Hospitaliston 02-04-2025 H&P Exam - Hospitalist Normal [facility] Hematocrit Auto (Bld) [Volum e fraction]Ordered By: Orlando Abdi on 02-04-2025 Hematocrit (Bld) [Volume fraction] 37.0 % 37-47 [facility] Hemoglobin measurementOrdere d By: Orlando Abdi on 02-04-2025 Hemoglobin (Bld) [Mass/Vol] 12.3 g/dL 12.0-15.0 [facility] Immature granulocytes/100 WB C Auto (Bld)Ordered By: Orlando Abdi on 02-04-2025 Immature granulocytes/100 WBC (Bld) 0.500 % 0.0-0.9 [facility] Comment on above: IG% - Immature Granu locytes (promyelocytes, myelocytes and metamyelocytes) > 1% indicates that a LEFT SHIFT is Present. International normalized rat io (INR) calculationOrdered By: Orlandogema Abdi on 02-04-2025 INR Coag (Bld) [Relative time] 1.0 {INR} [facility] L499.0042on 02-04-2025 Trop T High Sen 346 ng/L Invalid Interpretation Code <=14 [facility] Comment on above: Result Comment: Crit ical Result(s) Called at 1355: by: WEN MONTAÑO. ??Results read back by same. Performed By: #### L 499.0042 ####[facility] [address] [place], [address] L499.0043on 02-04-2025 Trop T High Sen Normal <=14 [facility] Comment on above: Result Comment: OK T O CANCEL Performed By: #### L 499.0043 ####[facility] [address] [place], [address] L501.4021on 02-04-2025 Trop T High Sen 307 ng/L Invalid Interpretation Code <=14 [facility] Comment on above: Result Comment: Crit ical Result(s) Called at 1216 : by:??TPHILLIPS TOHEATHER JAYLEN Results read back by same. Performed By: #### L 100.0100, L500.2500, L501.4021 ####[facility] [address] [place], [address] Lymphocytes Auto (Unsp spec) [#/Vol]Ordered By: Orlando Abdi on 02-04-2025 Lymphocytes (Bld) [#/Vol] 1.61 10*3/uL 0.83-4.51 [facility] Lymphocytes/100 WBC Auto (Un sp spec)Ordered By: Orlando Abdi on 02-04-2025 Lymphocytes/100 WBC (Bld) 15.1 % Low 19-41 [facility] MCV (mean corpuscular volume ) determinationOrdered By: Orlando Abdi on 02-04-2025 MCV (RBC) [Entitic vol] 95.6 fL 81-99 [facility] Mean corpuscular hemoglobin (MCH) determinationOrdered By: Orlandogema Abdi on 02-04-2025 MCH (RBC) [Entitic mass] 31.8 pg 27.0-32.0 [facility] Mean corpuscular hemoglobin concentration (MCHC) determinationOrdered By: Orlando Abdi on 02-04-2025 MCHC (RBC) [Mass/Vol] 33.2 g/dL 32-36 [facility] Mean platelet volume determi nationOrdered By: Orlando Abdi on 02-04-2025 Platelet mean volume (Bld) [Entitic vol] 9.9 fL 6.2-12.0 [facility] Monocyte percentageOrdered B y: Orlando Abdi on 02-04-2025 Monocytes/100 WBC (Bld) 4.9 % 0-[address] [facility] Neutrophil percentageOrdered By: Orlando Abdi on 02-04-2025 Neutrophils/100 WBC (Bld) 77.1 % High 47-70 [facility] Nucleated red blood cell per centageOrdered By: Orlandogema Abdi on 02-04-2025 Nucleated RBC/100 WBC (Bld) [Ratio] 0 % 0-5 [facility] Partial Thromboplast Timeon 02-04-2025 aPTT Coag (Bld) [Time] 26.4 s Normal 24.1-36.2 [facility] Comment on above: Performed By: #### L 300.7044, L300.8200 ####[facility] [address] [place], [address] Platelet countOrdered By: Bobbi Abdi on 02-04-2025 Platelets (Bld) [#/Vol] 223 10*3/uL 150-450 [facility] Potassium (Unsp spec) [Mass/ Vol]Ordered By: Orlando Abdi on 02-04-2025 Potassium [Moles/Vol] 4.1 mmol/L 3.3-5.1 [facility] Comment on above: Hemolysis present, R esults could be affected. Prothrombin Time w/INRon INR Coag (PPP) [Relative time] 1.0 {INR} Normal [facility] Comment on above: Performed By: #### L 300.3900, L300.4310 ####[facility] [address] [place], [address] PT Coag (PPP) [Time] 12.9 s Normal 11.7-14.9 [facility] Comment on above: Performed By: #### L 300.3900, L300.4310 ####[facility] [address] [place], [address] Prothrombin timeOrdered By: Orlando Abdi on 02-04-2025 PT Coag (PPP) [Time] 12.9 s 11.7-14.9 [facility] RBC Auto (Bld) [#/Vol]Ordere d By: Orlando Abdi on 02-04-2025 RBC (Bld) [#/Vol] 3.87 10*6/uL Low 4.2-5.4 [facility] Serum creatinine measurement (mass/volume)Ordered By: Orlando Abdi on 02-04-2025 Creatinine [Mass/Vol] 1.01 mg/dL 0.70-1.20 [facility] Serum glucose measurement (m ass/volume)Ordered By: Orlando Abdi on 02-04-2025 Glucose [Mass/Vol] 105 mg/dL High 70-99 [facility] Serum or plasma calcium rosalina urement (mass/volume)Ordered By: Orlando Abdi on 02-04-2025 Calcium [Mass/Vol] 9.2 mg/dL 7.6-11.0 [facility] Serum or plasma urea nitroge n measurement (mass/volume)Ordered By: Orlando Abdi on 02-04-2025 Urea nitrogen [Mass/Vol] 19 mg/dL 4-19 [facility] Sodium levelOrdered By: Henry Abdi on 02-04-2025 Sodium [Moles/Vol] 140 mmol/L 133-145 [facility] Troponin T.cardiac High sens itivity method [Mass/Vol]Ordered By: Orlando Abdi on 02-04-2025 Troponin T High Sensitivity 2 Hour 346 ng/L High <14 [facility] Comment on above: Critical Result(s) C alled at 1355: by: WEN CHAVEZ. Results read back by same. Troponin T High Sensitivity 307 ng/L High <14 [facility] Comment on above: Critical Result(s) C alled at 1216 : by: RADHA YORK Results read back by same. Troponin T.cardiac [Mass/vol ume] in Serum or Plasma by High sensitivity methodOrdered By: Orlando Abdi on 02-04-2025 Troponin T.cardiac High sensitivity method [Mass/Vol] 346 ng/L High <14 [facility] Comment on above: Critical Result(s) C alled at 1355: by: WEN CHAVEZ. Results read back by sergei. Troponin T.cardiac High sensitivity method [Mass/Vol] 307 ng/L High <14 [facility] Comment on above: Critical Result(s) C alled at 1216 : by: RADHA YORK Results read back by same. White blood cell (WBC) count Ordered By: Orlando Abdi on 02-04-2025 WBC (Bld) [#/Vol] 10.7 10*3/uL 4.4-11.0 [facility] aPTT Coag (PPP) [Time]Ordere d By: Orlando Abdi on 02-04-2025 aPTT Coag (Bld) [Time] 26.4 s 24.1-36.2 [facility] CT Abd/Pelvis W/WO Contrasto n 01-24-2025 CT Abd/Pelvis W/WO Contrast Normal [facility] Cardiology Visit Reporton Cardiology Visit Report Normal [facility] APOBon 01-16-2025 Apolipoprotein B [Mass/Vol] 67 mg/dL Normal <90 [facility] Comment on above: Result Comment: Christina cifuentes < 90 Borderline High 90 - 99 High 100 - 130 Very High >130 ASCVD RISK THERAPEUTIC TARGET CATEGORY APO B (mg/dL) Very High Risk <80 (if extreme risk <70) High Risk <90 Moderate Risk <90 Performed At: [employer] [id number] Alonso Mackenzie MD Ph:[phone] Performed By: #### M ORPH, ANEU, ADIFF, CBC #### [place] [address] LIPOAon 01-15-2025 Lipoprotein a [Moles/Vol] 21.6 nmol/L Normal <75.0 [facility] Comment on above: Result Comment: Note : Values greater than or equal to 75.0 nmol/L may indicate an independent risk factor for CHD, but must be evaluated with caution when applied to non- populations due to the influence of genetic factors on Lp(a) across ethnicities. Performed At: [facility] [id number] Shaye Banks PhD Ph:[phone] Performed By: #### M ORPH, ANEU, ADIFF, CBC #### [place] [address] .Auto Diffon 01-14-2025 Basophil, Absolute 0.1 10 3/mcL Normal 0.0-0.2 [facility] Comment on above: Performed By: #### A MY, LIP, A1C, ADIFF, TSHR, CMP, CBC, LIPID, GFR, [id number], VIDH, [id number], ANEU #### [place] [id number] #### HCV1 #### [address] [address] Basophils/100 WBC (Bld) 1.2 % Normal 0.0-2.5 [facility] Comment on above: Performed By: #### A MY, LIP, A1C, ADIFF, TSHR, CMP, CBC, LIPID, GFR, [id number], VIDH, [id number], ANEU #### [address] [address] #### HCV1 #### [address] [address] Eosinophil, Absolute 0.2 10 3/mcL Normal 0.0-0.7 [facility] Comment on above: Performed By: #### A MY, LIP, A1C, ADIFF, TSHR, CMP, CBC, LIPID, GFR, [id number], VIDH, [id number], ANEU #### [place] [address] #### HCV1 #### [address] [address] Eosinophils/100 WBC (Bld) 2.3 % Normal 0.0-7.0 [facility] Comment on above: Performed By: #### A MY, LIP, A1C, ADIFF, TSHR, CMP, CBC, LIPID, GFR, [id number], VIDH, [id number], ANEU #### [address] [address] #### HCV1 #### [address] [address] Lymphocyte, Absolute 1.8 10 3/mcL Normal 0.9-4.3 [facility] Comment on above: Performed By: #### A MY, LIP, A1C, ADIFF, TSHR, CMP, CBC, LIPID, GFR, [id number], VIDH, [id number], ANEU #### [address] [address] #### HCV1 #### [address] [address] Lymphocytes/100 WBC (Bld) 19.1 % Low 20.0-40.0 [facility] Comment on above: Performed By: #### A MY, LIP, A1C, ADIFF, TSHR, CMP, CBC, LIPID, GFR, [id number], VIDH, [id number], ANEU #### [address] [address] #### HCV1 #### [address] [address] Monocyte, Absolute 0.4 10 3/mcL Normal 0.1-1.4 [facility] Comment on above: Performed By: #### A MY, LIP, A1C, ADIFF, TSHR, CMP, CBC, LIPID, GFR, [id number], VIDH, [id number], ANEU #### [address] [address] #### HCV1 #### [address] [address] Monocytes/100 WBC (Bld) 4.5 % Normal 2.0-13.0 [facility] Comment on above: Performed By: #### A MY, LIP, A1C, ADIFF, TSHR, CMP, CBC, LIPID, GFR, [id number], VIDH, [id number], ANEU #### [address] [address] #### HCV1 #### [address] [address] Neutrophils/100 WBC (Bld) 72.9 % Normal 50.0-75.0 [facility] Comment on above: Performed By: #### A MY, LIP, A1C, ADIFF, TSHR, CMP, CBC, LIPID, GFR, [id number], VIDH, [id number], ANEU #### [address] [address] #### HCV1 #### [address] [address] .GFRon 01-14-2025 Estimated Glomerular Filtration Rate 50 ml/min/1.73sqm Normal [facility] Comment on above: Result Comment: Stages of Chronic Kidney Disease (CKD) Stage Description eGFR(ml/min/1.73 sq.m.) CKD 1 Normal kidney function or >=90 normal kindney function with possible kidney damage (ex. Proteinuria) CKD 2 Kidney damage with mild loss 60-89 of kidney function CKD 3a Mild to moderate loss of kidney 45-59 function CKD 3b Moderate to severe loss of 30-44 of kindey function CKD 4 Severe loss of kidney function 15-29 CKD 5 Kidney failure <15 Note: (go live 2024) the eGFR calculation was updated to the 2020 CKD-EPI creatinine equation without a race factor to calculate the eGFR results. Performed By: #### M ORPH, ANEU, ADIFF, CBC #### [address] [address] .NEUABSon 01-14-2025 Neutrophil, Absolute 6.8 10 3/mcL Normal 2.3-8.1 [facility] Comment on above: Performed By: #### A MY, LIP, A1C, ADIFF, TSHR, CMP, CBC, LIPID, GFR, [id number], VIDH, [id number], ANEU #### [address] [address] #### HCV1 #### [place] [address] A1Con 01-14-2025 Glucose [Mass/Vol] 111 mg/dL Normal [facility] Comment on above: Result Comment: Araceli mated Average Glucose calculated by equation ((28.7xA1C)-46.7) Estimated average glucose (eAG) is a calculated value from Hemoglobin A1C and is benefits representative of the average blood glucose level in the last 2-3 month period. Normal range: less than 114 mg/dL Performed By: #### M ORPH, ANEU, ADIFF, CBC #### [address] [address] HbA1c (Bld) [Mass fraction] 5.5 % Normal 4.3-6.4 [facility] Comment on above: Performed By: #### M ORPH, ANEU, ADIFF, CBC #### [place] [address] [place], [place] [address] AMYon 01-14-2025 Amylase [Catalytic activity/Vol] 45 U/L Normal 25-115 [facility] Comment on above: Performed By: #### A MY, LIP, A1C, ADIFF, TSHR, CMP, CBC, LIPID, GFR, [id number], VIDH, [id number], ANEU #### [address] [address] #### HCV1 #### [address] [address] CBCon 01-14-2025 Erythrocyte distribution width (RBC) [Ratio] 15.1 % Normal 11.5-15.5 [facility] Comment on above: Performed By: #### A MY, LIP, A1C, ADIFF, TSHR, CMP, CBC, LIPID, GFR, [id number], VIDH, [id number], ANEU #### [address] [address] #### HCV1 #### [address] [address] Hematocrit (Bld) [Volume fraction] 41.7 % Normal 34.0-46.0 [facility] Comment on above: Performed By: #### A MY, LIP, A1C, ADIFF, TSHR, CMP, CBC, LIPID, GFR, [id number], VIDH, [id number], ANEU #### [address] [address] #### HCV1 #### [address] [address] Hgb 14.1 G/dL Normal 12.0-16.0 [facility] Comment on above: Performed By: #### A MY, LIP, A1C, ADIFF, TSHR, CMP, CBC, LIPID, GFR, [id number], VIDH, [id number], ANEU #### [address] [address] #### HCV1 #### [address] [address] MCH (RBC) [Entitic mass] 31.9 pg Normal 27.0-33.0 [facility] Comment on above: Performed By: #### A MY, LIP, A1C, ADIFF, TSHR, CMP, CBC, LIPID, GFR, [id number], VIDH, [id number], ANEU #### [address] [address] #### HCV1 #### [address] [address] MCHC 33.9 G/dL Normal 32.0-36.0 [facility] Comment on above: Performed By: #### A MY, LIP, A1C, ADIFF, TSHR, CMP, CBC, LIPID, GFR, [id number], VIDH, [id number], ANEU #### [address] [address] #### HCV1 #### [place] [address] MCV (RBC) [Entitic vol] 94.1 fL Normal 80.0-99.0 A [facility] Comment on above: Performed By: #### A MY, LIP, A1C, ADIFF, TSHR, CMP, CBC, LIPID, GFR, [id number], VIDH, [id number], ANEU #### [address] [address] #### HCV1 #### [place] [address] Platelet 250 10 3/mcL Normal 150-450 [facility] Comment on above: Performed By: #### A MY, LIP, A1C, ADIFF, TSHR, CMP, CBC, LIPID, GFR, [id number], VIDH, [id number], ANEU #### [address] [address] #### HCV1 #### [address] [address] Platelet mean volume (Bld) [Entitic vol] 7.9 fL Normal 6.6-10.5 [facility] Comment on above: Performed By: #### A MY, LIP, A1C, ADIFF, TSHR, CMP, CBC, LIPID, GFR, [id number], VIDH, [id number], ANEU #### [place] [address] #### HCV1 #### [address] [address] RBC 4.43 10 6/mcL Normal 4.10-5.30 [facility] Comment on above: Performed By: #### A MY, LIP, A1C, ADIFF, TSHR, CMP, CBC, LIPID, GFR, [id number], VIDH, [id number], ANEU #### [address] [address] #### HCV1 #### [place] [address] WBC 9.3 10 3/mcL Normal 4.5-10.8 [facility] Comment on above: Performed By: #### A MY, LIP, A1C, ADIFF, TSHR, CMP, CBC, LIPID, GFR, [id number], VIDH, [id number], ANEU #### [address] [address] #### HCV1 #### [place] [address] CMPon 01-14-2025 Albumin Level 4.1 G/dL Normal 3.4-4.8 [facility] Comment on above: Performed By: #### M ORPH, ANEU, ADIFF, CBC #### [address] [address] Albumin/Globulin [Mass ratio] 1.1 {ratio} Normal 1.1-2.5 [facility] Comment on above: Performed By: #### M ORPH, ANEU, ADIFF, CBC #### [address] [address] ALP [Catalytic activity/Vol] 87 U/L Normal 40-135 [facility] Comment on above: Performed By: #### M ORPH, ANEU, ADIFF, CBC #### [address] [address] ALT [Catalytic activity/Vol] 30 U/L Normal 14-59 [facility] Comment on above: Performed By: #### M ORPH, ANEU, ADIFF, CBC #### [address] [address] AST [Catalytic activity/Vol] 13 U/L Normal 10-40 [facility] Comment on above: Performed By: #### M ORPH, ANEU, ADIFF, CBC #### [address] [address] Bili Total 0.6 mg/dL Normal 0.2-1.0 [facility] Comment on above: Result Comment: Use of this assay is not recommended for patients undergoing treatment with eltrombopag due to the potential for falsely elevated results. Performed By: #### M ORPH, ANEU, ADIFF, CBC #### [place] [address] BUN/Creatinine Ratio 15 ratio Normal 7-27 [facility] Comment on above: Performed By: #### M ORPH, ANEU, ADIFF, CBC #### [address] [address] Calcium [Mass/Vol] 9.7 mg/dL Normal 8.4-10.2 [facility] Comment on above: Performed By: #### M ORPH, ANEU, ADIFF, CBC #### [address] [address] Chloride [Moles/Vol] 104 mmol/L Normal 98-107 [facility] Comment on above: Performed By: #### M ORPH, ANEU, ADIFF, CBC #### [address] [address] CO2 [Moles/Vol] 27 mmol/L Normal 23-31 [facility] Comment on above: Performed By: #### M ORPH, ANEU, ADIFF, CBC #### [address] [address] Creatinine [Mass/Vol] 1.19 mg/dL High 0.55-1.02 [facility] Comment on above: Result Comment: Test ing performed on Siemens Dimension EXL analyzer using a modified kinetic Sosa technique. Performed By: #### M ORPH, ANEU, ADIFF, CBC #### [address] [address] Electrolyte Balance 11.0 mEq/L Normal 4.0-15.0 [facility] Comment on above: Performed By: #### M KELIN CARMICHAEL ADIFF, CBC #### [address] [address] Globulin 3.6 G/dL Normal 1.5-3.8 [facility] Comment on above: Performed By: #### M KELIN CARMICHAEL ADIFF, CBC #### [address] [address] Glucose [Mass/Vol] 98 mg/dL Normal 80-115 [facility] Comment on above: Performed By: #### M KELIN CARMICHAEL ADIFF, CBC #### [address] [address] Potassium [Moles/Vol] 4.3 mmol/L Normal 3.5-5.1 [facility] Comment on above: Performed By: #### M KELIN CARMICHAEL ADIFF, CBC #### [address] [address] Sodium [Moles/Vol] 142 mmol/L Normal 136-145 [facility] Comment on above: Performed By: #### M KELIN CARMCIHAEL ADIFF, CBC #### [address] [address] Total Protein 7.7 G/dL Normal 6.4-8.2 [facility] Comment on above: Performed By: #### M ORKELIN SCHILLING ADIFF, CBC #### [address] [address] Urea nitrogen [Mass/Vol] 18 mg/dL Normal 7-18 [facility] Comment on above: Performed By: #### M KELIN CARMICHAEL ADIFF, CBC #### [address] [address] HCVon 01-14-2025 Hep C Ab Non-Reactive Normal Non-Reactiv e [facility] Comment on above: Performed By: #### M KELIN CARMICHAEL ADIFF, CBC #### [address] [address] Hep C Ab Int Normal [facility] Comment on above: Result Comment: Nonr eactive: Samples with a value < 0.80 are considered nonreactive (negative) for antibodies to HCV. A negative test result does not exclude the possibility of exposure to or infection with HCV. HCV antibodies may be undetectable in some stages of the infection and in some clinical conditions. See Interp Performed By: #### M ORPH, ANEU, ADIFF, CBC #### [address] [address] LIPon 01-14-2025 Lipase Level 42 U/L Normal 16-77 [facility] Comment on above: Performed By: #### A MY, LIP, A1C, ADIFF, TSHR, CMP, CBC, LIPID, GFR, [id number], VIDH, [id number], ANEU #### [address] [address] #### HCV1 #### [place] [address] LIPIDon 01-14-2025 Cholesterol [Mass/Vol] 141 mg/dL Normal 0-200 [facility] Comment on above: Result Comment: Chol esterol Reference Interval: Less than 200 Desirable 200-239 Borderline high risk 240 and above High risk Performed By: #### M ORPH, ANEU, ADIFF, CBC #### [address] [address] Cholesterol in HDL [Mass/Vol] 44 mg/dL Normal 40-60 [facility] Comment on above: Performed By: #### M ORPH, ANEU, ADIFF, CBC #### [address] [address] Cholesterol in LDL [Mass/Vol] 74 mg/dL Normal 0-130 [facility] Comment on above: Performed By: #### M ORPH, ANEU, ADIFF, CBC #### [address] [address] Triglyceride [Mass/Vol] 117 mg/dL Normal 0-150 [facility] Comment on above: Result Comment: Trig lyceride Reference Interval: Less than 150 Normal 150-199 Borderline high risk 200-499 High risk 500 or higher Very high risk Performed By: #### M ORKELIN SCHILLING ADIFF, CBC #### [address] [address] MALBRon 01-14-2025 U Creatinine 91.5 mg/dL Normal [facility] Comment on above: Performed By: #### M ORKELIN SCHILLING ADIFF, CBC #### [address] [address] U Microalb 9.9 mg/L Normal [facility] Comment on above: Performed By: #### M ORKELIN SCHILLING ADIFF, CBC #### [address] [address] U Ratio Alb/Cre 11 mg/G Normal 0-30 [facility] Comment on above: Performed By: #### M ORKELIN SCHILLING ADIFF, CBC #### [address] [address] TSHRon 01-14-2025 TSH Qn 1.87 m[IU]/L Normal 0.36-3.74 [facility] Comment on above: Performed By: #### M ORKELIN SCHILLING ADIFF, CBC #### [address] [address] VIDHon 01-14-2025 Vit. D 25-Hydroxy 31.0 ng/mL Normal [facility] Comment on above: Result Comment: Inte rpretive Values Based on Total 25(OH) Vitamin D: Deficient <20 ng/mL Insufficient 20 - <30 ng/mL Sufficient 30-100 ng/mL Performed By: #### M ORKELIN SCHILLING ADIFF, CBC #### [address] [address] Non-gynecologic cytology rep ortOrdered By: Trey Eduardo on 01-09-2025 Study report [facility] Other Phone: Cytology report Cyto stain D oc (Body fld)Ordered By: Roxanne Olivas on 01-08-2025 Miscellaneous Cytology SEE PATHOLOGY REPORT [facility] Comment on above: Specimen submitted t o Anatomical Pathology Department for testing. Cytology report of Body flui d Cyto stainOrdered By: Roxanne Olivas on 01-08-2025 Cytology report Cyto stain Doc (Body fld) SEE PATHOLOGY REPORT [facility] Comment on above: Specimen submitted t o Anatomical Pathology Department for testing. Cytology, Body Fluid / CSFon 01-08-2025 CYTOLOGY,BF/CSF SEE PATHOLOGY REPORT Normal [facility] Comment on above: Order Comment: URINE Result Comment: Spec imen submitted to Anatomical Pathology Department fortesting. Performed By: #### L 350.1000 ####[facility] [address] [place], [place], [address] Special Stain Group IIon Special Stain Group II Normal [facility] Comment on above: Performed By: #### P SSII ####[facility] [address] [place], [place], [address] Pulmonary Visit Reporton Pulmonary Visit Report Normal [facility] XR ESOPHOGRAM W/BARIUM TABLE Ton 12-13-2024 XR ESOPHOGRAM W/BARIUM TABLET ORIGINAL EXAMINATION: SINGLE CONTRAST ESOPHAGRAM 12/13/2024 HISTORY: ORDERING SYSTEM PROVIDED HISTORY: Reason for Exam: dysphagia; epigastric pain; dyspnea COMPARISON: None. TECHNIQUE: Multiple double contrast images of the esophagus and gastroesophageal junction were obtained following the oral administration of barium FLUOROSCOPY DOSE AND TYPE: Radiation Exposure Index: Kerma mGy, 45.3. 130 seconds of fluoroscopy time was utilized. FINDINGS: No evidence of stricture or obstruction. The esophagus demonstrates mild dysmotility with slight delay of passage of contrast through the esophagus. No evidence of leak. No hiatal hernia is seen and there is no evidence of achalasia. No spontaneous gastroesophageal reflux. No gastroesophageal reflux was able to be elicited during examination with a water siphon test. IMPRESSION: Mild dysmotility, this study otherwise is unremarkable. Interpreted by: Deondre Black MD Preliminary Report By: Deondre Black MD Electronically signed By Deondre Black MD Dictated Date: 12/13/2024 11:57:07 AM Prelim Date: 12/13/2024 12:00:00 PM Sign Date: 12/13/2024 12:00:00 PM Ordering Provider: TOM Donovan [facility] Absolute lymphocyte countOrd ered By: Jak Sheikh on 12-11-2024 Lymphocytes Auto (Unsp spec) [#/Vol] 1.90 10*3/uL 0.83-4.51 [facility] Absolute neutrophil countOrd ered By: Jak Sheikh on 12-11-2024 Neutrophils (Bld) [#/Vol] 5.4 10*3/uL 2.0-7.7 [facility] Automated lymphocyte count a s percentage of total leukocytesOrdered By: Jak Sheikh on 12-11-2024 Lymphocytes/100 WBC Auto (Unsp spec) 24.1 % 19-41 [facility] Basic Metabolic Profile (BMP )on 12-11-2024 BUN/CRE 16.1 RATIO Normal 10-20 [facility] Comment on above: Order Comment: 'TROP ' Serial specimen #1, #2 or #3: 1 Performed By: #### L 501.4020, L100.0100, L500.2500 ####[facility] [address] [place], [address] CA,Total 9.4 mg/dL Normal 8.5-10.1 [facility] Comment on above: Order Comment: 'TROP ' Serial specimen #1, #2 or #3: 1 Performed By: #### L 501.4020, L100.0100, L500.2500 ####[facility] [address] [place], [address] Chloride [Moles/Vol] 108 mmol/L High 98-107 [facility] Comment on above: Order Comment: 'TROP ' Serial specimen #1, #2 or #3: 1 Performed By: #### L 501.4020, L100.0100, L500.2500 ####[facility] [address] [place], [address] CO2 [Moles/Vol] 21.0 mmol/L Normal 21.0-32.0 [facility] Comment on above: Order Comment: 'TROP ' Serial specimen #1, #2 or #3: 1 Performed By: #### L 501.4020, L100.0100, L500.2500 ####[facility] [address] [place], [address] Creatinine [Mass/Vol] 1.18 mg/dL High 0.55-1.02 [facility] Comment on above: Order Comment: 'TROP ' Serial specimen #1, #2 or #3: 1 Result Comment: The validity of the calculated GFR GFRAA in patients over70 years has not been determined. Clinical correlation isessential. Performed By: #### L 501.4020, L100.0100, L500.2500 ####[facility] [address] [place], [address] ECRCL 49.98 ml/min Normal [facility] Comment on above: Order Comment: 'TROP ' Serial specimen #1, #2 or #3: 1 Performed By: #### L 501.4020, L100.0100, L500.2500 ####[facility] [address] [place], [address] EST GFR - AA 59 mL/min Low >60 [facility] Comment on above: Order Comment: 'TROP ' Serial specimen #1, #2 or #3: 1 Result Comment: Afri can Micronesian GFR Calc Performed By: #### L 501.4020, L100.0100, L500.2500 ####[facility] [address] [place], [address] GAP 9 Normal 5-15 [facility] Comment on above: Order Comment: 'TROP ' Serial specimen #1, #2 or #3: 1 Performed By: #### L 501.4020, L100.0100, L500.2500 ####[facility] [address] [place], [address] GFR/1.73 sq M.predicted among non-blacks MDRD (S/P/Bld) [Vol rate/Area] 49 mL/min/{1.73_m2} Low >60 [facility] Comment on above: Order Comment: 'TROP ' Serial specimen #1, #2 or #3: 1 Result Comment: Non- GFR Calc Performed By: #### L 501.4020, L100.0100, L500.2500 ####[facility] [address] [place], [address] Glucose [Mass/Vol] 110 mg/dL High 74-106 [facility] Comment on above: Order Comment: 'TROP ' Serial specimen #1, #2 or #3: 1 Result Comment: Fast ing Glucose result from 100 to 125 mg/dLsuggests IMPAIRED HOMEOSTASIS per A.D.A. criteria. Performed By: #### L 501.4020, L100.0100, L500.2500 ####[facility] [address] [place], [address] Potassium [Moles/Vol] 3.9 mmol/L Normal 3.5-5.1 [facility] Comment on above: Order Comment: 'TROP ' Serial specimen #1, #2 or #3: 1 Performed By: #### L 501.4020, L100.0100, L500.2500 ####[facility] [address] [place], [address] Sodium [Moles/Vol] 138 mmol/L Normal 136-145 [facility] Comment on above: Order Comment: 'TROP ' Serial specimen #1, #2 or #3: 1 Performed By: #### L 501.4020, L100.0100, L500.2500 ####[facility] [address] [place], [address] Urea nitrogen [Mass/Vol] 19 mg/dL High 7-18 [facility] Comment on above: Order Comment: 'TROP ' Serial specimen #1, #2 or #3: 1 Performed By: #### L 501.4020, L100.0100, L500.2500 ####[facility] [address] [place], [address] Basophil percentageOrdered B y: Jak Sheihk on 12-11-2024 Basophils/100 WBC (Bld) 0.9 % 0-[address] [facility] Blood urea nitrogen (BUN)/cr eatinine ratioOrdered By: Jak Sheikh on 12-11-2024 Urea nitrogen/Creatinine [Mass ratio] 16.1 mg/mg 10-20 [facility] CBC W/Diff, Automatedon 11-24 PLT EST A Normal ADEQ [facility] Comment on above: Performed By: #### L 501.4020, L100.0100, L500.2500 ####[facility] [address] [place], [address] REACTIVE LYMPH 1+ Normal [facility] Comment on above: Performed By: #### L 501.4020, L100.0100, L500.2500 ####[facility] [address] [place], [address] Carbon dioxide measurementOr dered By: Jak Sheikh on 12-11-2024 CO2 [Moles/Vol] 21.0 mmol/L 21.0-32.0 [facility] Chest PA and Lateralon 12-11 Chest PA and Lateral Normal [facility] Chloride measurementOrdered By: Jak Sheikh on 12-11-2024 Chloride [Moles/Vol] 108 mmol/L High 98-107 [facility] Emergency Department Summary on 12-11-2024 Emergency Department Summary Normal [facility] Eosinophil percentageOrdered By: Jak Sheikh on 12-11-2024 Eosinophils/100 WBC (Bld) 1.7 % 0-5 [facility] Erythrocyte distribution wid th ratioOrdered By: Jak Sheikh on 12-11-2024 Erythrocyte distribution width (RBC) [Ratio] 13.9 % 11.6-14.6 [facility] Erythrocyte distribution wid th standard deviationOrdered By: Jak Sheikh on 12-11-2024 Erythrocyte distribution width (RBC) [Entitic vol] 47.3 fL High 35.1-43.9 [facility] Erythrocyte distribution width (RBC) [Ratio] 47.3 fl High 35.1-43.9 [facility] Estimated glomerular filtrat ion rate (GFR) AmericanOrdered By: Jak Sheikh on 12-11-2024 Estimated GFR (MDRD) Amer 59 mL/min Low >60 [facility] Comment on above: GFR Calc Estimation of creatinine christopher aranceOrdered By: Jak Sheikh on 12-11-2024 Estimated Creatinine Clearance Calc 49.98 ml/min [facility] Glomerular filtration rate ( GFR) estimationOrdered By: Jak Sheikh on 12-11-2024 Estimated GFR (MDRD) Non-Af Amer 49 mL/min Low >60 [facility] Comment on above: Non- GFR Calc GFR/1.73 sq M.predicted among non-blacks MDRD (S/P/Bld) [Vol rate/Area] 49 mL/min/{1.73_m2} Low >60 [facility] Comment on above: Non- GFR Calc Glucose measurementOrdered B y: Jak Sheikh on 12-11-2024 Glucose [Mass/Vol] 110 mg/dL High 74-106 [facility] Comment on above: Fasting Glucose resu lt from 100 to 125 mg/dL suggests IMPAIRED HOMEOSTASIS per A.D.A. criteria. Hematocrit Auto (Bld) [Volum e fraction]Ordered By: Jak Sheikh on 12-11-2024 Hematocrit (Bld) [Volume fraction] 42.0 % 37-47 [facility] Hemoglobin measurementOrdere d By: Jak Sheikh on 12-11-2024 Hemoglobin (Bld) [Mass/Vol] 13.7 g/dL 12.0-15.0 [facility] Immature granulocytes/100 WB C Auto (Bld)Ordered By: Jak Sheikh on 12-11-2024 Immature granulocytes/100 WBC (Bld) 0.400 % 0.0-0.9 [facility] Comment on above: IG% - Immature Granu locytes (promyelocytes, myelocytes and metamyelocytes) > 1% indicates that a LEFT SHIFT is Present. L501.4020on 12-11-2024 TROPONIN-I HS 9 pg/mL Normal 3.0-54.0 [facility] Comment on above: Order Comment: 'TROP ' Serial specimen #1, #2 or #3: 1 Result Comment: Ash white Note: New Test Units and Gender Specific Reference Ranges. For more information see Policy Stat Procedure [place] High Sensitivity Troponin (TNIH) and attachments. Performed By: #### L 501.4020, L100.0100, L500.2500 ####[facility] [address] [place], [address] Lymphocytes Auto (Unsp spec) [#/Vol]Ordered By: Jak Sheikh on 12-11-2024 Lymphocytes (Bld) [#/Vol] 1.90 10*3/uL 0.83-4.51 [facility] Lymphocytes/100 WBC Auto (Un sp spec)Ordered By: Jak Sheikh on 12-11-2024 Lymphocytes/100 WBC (Bld) 24.1 % 19-41 [facility] MCV (mean corpuscular volume ) determinationOrdered By: Jak Sheikh on 12-11-2024 MCV (RBC) [Entitic vol] 93.1 fL 81-99 [facility] Mean corpuscular hemoglobin (MCH) determinationOrdered By: Jak Sheikh on 12-11-2024 MCH (RBC) [Entitic mass] 30.4 pg 27.0-32.0 [facility] Mean corpuscular hemoglobin concentration (MCHC) determinationOrdered By: Jak Sheikh on 12-11-2024 MCHC (RBC) [Mass/Vol] 32.6 g/dL 32-36 [facility] Mean platelet volume determi nationOrdered By: Jak Sheikh on 12-11-2024 Platelet mean volume (Bld) [Entitic vol] 9.6 fL 6.2-12.0 [facility] Monocyte percentageOrdered B y: Jak Sheikh on 12-11-2024 Monocytes/100 WBC (Bld) 3.8 % 0-[address] [facility] Neutrophil percentageOrdered By: Jak Sheikh on 12-11-2024 Neutrophils/100 WBC (Bld) 69.1 % 47-70 [facility] Nucleated red blood cell per centageOrdered By: Jak Sheikh on 12-11-2024 Nucleated RBC/100 WBC (Bld) [Ratio] 0 % 0-5 [facility] Platelet countOrdered By: Tayo Sheikh on 12-11-2024 Platelets (Bld) [#/Vol] 203 10*3/uL 150-450 [facility] Platelet estimateOrdered By: Jak Sheikh on 12-11-2024 Platelets LM Ql (Bld) A ADEQ [facility] Platelets LM Ql (Bld)Ordered By: Jak Sheikh on 12-11-[address] [facility] Potassium measurementOrdered By: Jak Sheikh on 12-11-2024 Potassium [Moles/Vol] 3.9 mmol/L 3.5-5.1 [facility] RBC Auto (Bld) [#/Vol]Ordere d By: Jak Sheikh on 12-11-2024 RBC (Bld) [#/Vol] 4.51 10*6/uL 4.2-5.4 [facility] Reactive lymphocyte countOrd ered By: Jak Sheikh on 12-11-2024 Reactive Lymphocytes 1+ [facility] Serum anion gap measurementO rdered By: Jak Sheikh on 12-11-2024 Anion gap [Moles/Vol] 9 mmol/L 5-15 [facility] Serum or plasma calcium rosalina urement (mass/volume)Ordered By: Jak Sheikh on 12-11-2024 Calcium [Mass/Vol] 9.4 mg/dL 8.5-10.1 [facility] Serum or plasma creatinine m easurement (mass/volume)Ordered By: Jak Sheikh on 12-11-2024 Creatinine [Mass/Vol] 1.18 mg/dL High 0.55-1.02 [facility] Comment on above: The validity of the calculated GFR & GFRAA in patients over 70 years has not been determined. Clinical correlation is essential. Serum or plasma urea nitroge n measurement (mass/volume)Ordered By: Jak Sheikh on 12-11-2024 Urea nitrogen [Mass/Vol] 19 mg/dL High 7-18 [facility] Sodium levelOrdered By: Jak Sheikh on 12-11-2024 Sodium [Moles/Vol] 138 mmol/L 136-145 [facility] Troponin IOrdered By: Jak ordoñez on 12-11-2024 Troponin I 9 pg/mL 3.0-54.0 [facility] Comment on above: Please Note: New Camila t Units and Gender Specific Reference Ranges. For more information see Policy Stat Procedure [place] High Sensitivity Troponin (TNIH) and attachments. Troponin I High Sensitivity 9 pg/mL 3.0-54.0 [facility] Comment on above: Please Note: New Camila t Units and Gender Specific Reference Ranges. For more information see Policy Stat Procedure [place] High Sensitivity Troponin (TNIH) and attachments. White blood cell (WBC) count Ordered By: Jak Sheikh on 12-11-2024 WBC (Bld) [#/Vol] 7.9 10*3/uL 4.4-11.0 [facility] CEFUROXIME:SUSC:PT:ISOLATE:O RDQN:MICon 12-05-2024 Cefuroxime BHAVESH [Susc] 10,000 - 50,000 cf u/ml Escherichia coli [facility] Work Phone: Cefuroxime BHAVESH [Susc]on 11-24 Escherichia coli Escherichia coli [facility] Work Phone: No Panel Informationon 11-03 Culture Urine 10,000 - 50,000 cfu/ ml Mixed growth consistent with normal urogenital chilo. [facility] Work Phone: CR - History AND Physicalon 10-31-2024 CR - History & Physical Normal [facility] Cardiology Visit Reporton Cardiology Visit Report Normal [facility] 12 Lead EKGon 10-11-2024 12 Lead EKG Normal [facility] Basic Metabolic Profile (BMP )on 10-11-2024 BUN/CRE 19.6 RATIO Normal 10-20 [facility] Comment on above: Performed By: #### L 100.0500, L500.2500 ####[facility] [address] [place], [place], [id number] CA,Total 9.0 mg/dL Normal 8.5-10.1 [facility] Comment on above: Performed By: #### L 100.0500, L500.2500 ####[facility] [address] [place], [address] Chloride [Moles/Vol] 110 mmol/L High 98-107 [facility] Comment on above: Performed By: #### L 100.0500, L500.2500 ####[facility] [address] [place], [address] CO2 [Moles/Vol] 24.0 mmol/L Normal 21.0-32.0 [facility] Comment on above: Performed By: #### L 100.0500, L500.2500 ####[facility] [address] [place], [address] Creatinine [Mass/Vol] 1.12 mg/dL High 0.55-1.02 [facility] Comment on above: Result Comment: The validity of the calculated GFR GFRAA in patients over70 years has not been determined. Clinical correlation isessential. Performed By: #### L 100.0500, L500.2500 ####[facility] [address] [place], [address] ECRCL 53.20 ml/min Normal [facility] Comment on above: Performed By: #### L 100.0500, L500.2500 ####[facility] [address] [place], [address] EST GFR - AA 63 mL/min Normal >60 [facility] Comment on above: Result Comment: Afri can Micronesian GFR Calc Performed By: #### L 100.0500, L500.2500 ####[facility] [address] [place], [address] GAP 5 Normal 5-15 [facility] Comment on above: Performed By: #### L 100.0500, L500.2500 ####[facility] [address] [place], [address] GFR/1.73 sq M.predicted among non-blacks MDRD (S/P/Bld) [Vol rate/Area] 52 mL/min/{1.73_m2} Low >60 [facility] Comment on above: Result Comment: Non- GFR Calc Performed By: #### L 100.0500, L500.2500 ####[facility] [address] [place], [address] Glucose [Mass/Vol] 99 mg/dL Normal 74-106 [facility] Comment on above: Performed By: #### L 100.0500, L500.2500 ####[facility] [address] [place], [address] Potassium [Moles/Vol] 4.1 mmol/L Normal 3.5-5.1 [facility] Comment on above: Performed By: #### L 100.0500, L500.2500 ####[facility] [address] [place], [address] Sodium [Moles/Vol] 139 mmol/L Normal 136-145 [facility] Comment on above: Performed By: #### L 100.0500, L500.2500 ####[facility] [address] [place], [address] Urea nitrogen [Mass/Vol] 22 mg/dL High 7-18 [facility] Comment on above: Performed By: #### L 100.0500, L500.2500 ####[facility] [address] [place], [address] Blood urea nitrogen (BUN)/cr eatinine ratioOrdered By: Kraig Feliz on 10-11-2024 Urea nitrogen/Creatinine [Mass ratio] 19.6 mg/mg 10-20 [facility] CBC-Complete Blood Cnt No Di ffon 10-11-2024 Erythrocyte distribution width (RBC) [Ratio] 13.2 % Normal 11.6-14.6 [facility] Comment on above: Performed By: #### L 100.0500, L500.2500 ####[facility] [address] [place], [address] Hematocrit (Bld) [Volume fraction] 42.5 % Normal 37-47 [facility] Comment on above: Performed By: #### L 100.0500, L500.2500 ####[facility] [address] [place], [address] Hemoglobin (Bld) [Mass/Vol] 14.2 g/dL Normal 12.0-15.0 [facility] Comment on above: Performed By: #### L 100.0500, L500.2500 ####[facility] [address] [place], [address] MCH (RBC) [Entitic mass] 31.0 pg Normal 27.0-32.0 [facility] Comment on above: Performed By: #### L 100.0500, L500.2500 ####[facility] [address] [place], [address] MCHC (RBC) [Mass/Vol] 33.4 g/dL Normal 32-36 [facility] Comment on above: Performed By: #### L 100.0500, L500.2500 ####[facility] [address] [place], [address] MCV (RBC) [Entitic vol] 92.8 fL Normal 81-[address] [facility] Comment on above: Performed By: #### L 100.0500, L500.2500 ####[facility] [address] [place], [address] Platelet mean volume (Bld) [Entitic vol] 9.7 fL Normal 6.2-12.0 [facility] Comment on above: Performed By: #### L 100.0500, L500.2500 ####[facility] [address] [place], [address] Platelets (Bld) [#/Vol] 224 10*3/uL Normal 150-450 [facility] Comment on above: Performed By: #### L 100.0500, L500.2500 ####[facility] [address] [place], [address] RBC (Bld) [#/Vol] 4.58 10*6/uL Normal 4.2-5.4 [facility] Comment on above: Performed By: #### L 100.0500, L500.2500 ####[facility] [address] [place], [address] RDW SD 44.4 fl High 35.1-43.9 [facility] Comment on above: Performed By: #### L 100.0500, L500.2500 ####[facility] [address] [place], [address] WBC (Bld) [#/Vol] 9.9 10*3/uL Normal 4.4-11.0 [facility] Comment on above: Performed By: #### L 100.0500, L500.2500 ####[facility] [address] [place], [address] Carbon dioxide measurementOr dered By: Kraig Feliz on 10-11-2024 CO2 [Moles/Vol] 24.0 mmol/L 21.0-32.0 [facility] Chloride measurementOrdered By: Kraig Feliz on 10-11-2024 Chloride [Moles/Vol] 110 mmol/L High 98-107 [facility] Discharge Instructionon 09-23 Discharge Instruction Normal [facility] Erythrocyte distribution wid th ratioOrdered By: Kraig Feliz on 10-11-2024 Erythrocyte distribution width (RBC) [Ratio] 13.2 % 11.6-14.6 [facility] Erythrocyte distribution wid th standard deviationOrdered By: Kraig Feliz on 10-11-2024 Erythrocyte distribution width (RBC) [Entitic vol] 44.4 fL High 35.1-43.9 [facility] Estimated glomerular filtrat ion rate (GFR) AmericanOrdered By: Kraig Feliz on 10-11-2024 Estimated GFR (MDRD) Amer 63 mL/min >60 [facility] Comment on above: GFR Calc Estimation of creatinine christopher aranceOrdered By: Kraig Feliz on 10-11-2024 Estimated Creatinine Clearance Calc 53.20 ml/min [facility] Glomerular filtration rate ( GFR) estimationOrdered By: Kraig Feliz on 10-11-2024 Estimated GFR (MDRD) Non-Af Amer 52 mL/min Low >60 [facility] Comment on above: Non- GFR Calc Glucose measurementOrdered B y: Kraig Feliz on 10-11-2024 Glucose [Mass/Vol] 99 mg/dL 74-106 [facility] Hematocrit Auto (Bld) [Volum e fraction]Ordered By: Kraig Feliz on 10-11-2024 Hematocrit (Bld) [Volume fraction] 42.5 % 37-47 [facility] Hemoglobin measurementOrdere d By: Kraig Feliz on 10-11-2024 Hemoglobin (Bld) [Mass/Vol] 14.2 g/dL 12.0-15.0 [facility] MCV (mean corpuscular volume ) determinationOrdered By: Kraig Feliz on 10-11-2024 MCV (RBC) [Entitic vol] 92.8 fL 81-[address] [facility] Mean corpuscular hemoglobin (MCH) determinationOrdered By: Kraig Feliz on 10-11-2024 MCH (RBC) [Entitic mass] 31.0 pg 27.0-32.0 [facility] Mean corpuscular hemoglobin concentration (MCHC) determinationOrdered By: Kraig Feliz on 10-11-2024 MCHC (RBC) [Mass/Vol] 33.4 g/dL 32-36 [facility] Mean platelet volume determi nationOrdered By: Kraig Feliz on 10-11-2024 Platelet mean volume (Bld) [Entitic vol] 9.7 fL 6.2-12.0 [facility] Platelet countOrdered By: Curt Feliz on 10-11-2024 Platelets (Bld) [#/Vol] 224 10*3/uL 150-450 [facility] Potassium measurementOrdered By: Kraig Feliz on 10-11-2024 Potassium [Moles/Vol] 4.1 mmol/L 3.5-5.1 [facility] RBC Auto (Bld) [#/Vol]Ordere d By: Kraig Feliz on 10-11-2024 RBC (Bld) [#/Vol] 4.58 10*6/uL 4.2-5.4 [facility] Serum anion gap measurementO rdered By: Kraig Feliz on 10-11-2024 Anion gap [Moles/Vol] 5 mmol/L 5-15 [facility] Serum or plasma calcium rosalina urement (mass/volume)Ordered By: Kraig Feliz on 10-11-2024 Calcium [Mass/Vol] 9.0 mg/dL 8.5-10.1 [facility] Serum or plasma creatinine m easurement (mass/volume)Ordered By: Kraig Feliz on 10-11-2024 Creatinine [Mass/Vol] 1.12 mg/dL High 0.55-1.02 [facility] Comment on above: The validity of the calculated GFR & GFRAA in patients over 70 years has not been determined. Clinical correlation is essential. Serum or plasma urea nitroge n measurement (mass/volume)Ordered By: Kraig Feliz on 10-11-2024 Urea nitrogen [Mass/Vol] 22 mg/dL High 7-18 [facility] Sodium levelOrdered By: Erick Feliz on 10-11-2024 Sodium [Moles/Vol] 139 mmol/L 136-145 [facility] White blood cell (WBC) count Ordered By: Kraig Feliz on 10-11-2024 WBC (Bld) [#/Vol] 9.9 10*3/uL 4.4-11.0 [facility] 12 Lead EKGon 10-10-2024 12 Lead EKG Normal [facility] Albumin to globulin ratioOrd ered By: Adan Galindo on 10-10-2024 Albumin/Globulin [Mass ratio] 0.9 {ratio} 0.9-2.4 [facility] Bilirubin, totalOrdered By: Adan Galindo on 10-10-2024 Bilirubin [Mass/Vol] 0.60 mg/dL 0.20-1.00 [facility] Comment on above: For patients on eltr ombopag therapy, use of Dimension [place] TBIL is not recommended. CBC-Complete Blood Cnt No Di ffon 10-10-2024 Erythrocyte distribution width (RBC) [Ratio] 13.2 % Normal 11.6-14.6 [facility] Comment on above: Performed By: #### L 500.4050, L501.9520, L500.4100, L100.0500 ####[facility] [address] [place], [address] Hematocrit (Bld) [Volume fraction] 39.8 % Normal 37-47 [facility] Comment on above: Performed By: #### L 500.4050, L501.9520, L500.4100, L100.0500 ####[facility] [address] [place], [address] Hemoglobin (Bld) [Mass/Vol] 13.6 g/dL Normal 12.0-15.0 [facility] Comment on above: Performed By: #### L 500.4050, L501.9520, L500.4100, L100.0500 ####[facility] [address] [place], [address] MCH (RBC) [Entitic mass] 31.6 pg Normal 27.0-32.0 [facility] Comment on above: Performed By: #### L 500.4050, L501.9520, L500.4100, L100.0500 ####[facility] [address] [place], [address] MCHC (RBC) [Mass/Vol] 34.2 g/dL Normal 32-36 [facility] Comment on above: Performed By: #### L 500.4050, L501.9520, L500.4100, L100.0500 ####[facility] [address] [place], [address] MCV (RBC) [Entitic vol] 92.3 fL Normal 81-[address] [facility] Comment on above: Performed By: #### L 500.4050, L501.9520, L500.4100, L100.0500 ####[facility] [address] [place], [address] Platelet mean volume (Bld) [Entitic vol] 9.4 fL Normal 6.2-12.0 [facility] Comment on above: Performed By: #### L 500.4050, L501.9520, L500.4100, L100.0500 ####[facility] [address] [place], [address] Platelets (Bld) [#/Vol] 215 10*3/uL Normal 150-450 [facility] Comment on above: Performed By: #### L 500.4050, L501.9520, L500.4100, L100.0500 ####[facility] [address] [place], [address] RBC (Bld) [#/Vol] 4.31 10*6/uL Normal 4.2-5.4 [facility] Comment on above: Performed By: #### L 500.4050, L501.9520, L500.4100, L100.0500 ####[facility] [address] [place], [address] RDW SD 45.1 fl High 35.1-43.9 [facility] Comment on above: Performed By: #### L 500.4050, L501.9520, L500.4100, L100.0500 ####[facility] [address] [place], [address] WBC (Bld) [#/Vol] 11.7 10*3/uL High 4.4-11.0 [facility] Comment on above: Performed By: #### L 500.4050, L501.9520, L500.4100, L100.0500 ####[facility] [address] [place], [address] Cardiac Cath Interventionon 10-10-2024 Cardiac Cath Intervention Normal [facility] Comprehensive Metabolic Prof ilon 10-10-2024 Albumin [Mass/Vol] 3.2 g/dL Normal 3.2-5.0 [facility] Comment on above: Performed By: #### L 500.4050, L501.9520, L500.4100, L100.0500 ####[facility] [address] [place], [address] Albumin/Globulin [Mass ratio] 0.9 {ratio} Normal 0.9-2.4 [facility] Comment on above: Performed By: #### L 500.4050, L501.9520, L500.4100, L100.0500 ####[facility] [address] [place], [address] ALK P 60 U/L Normal 45-117 [facility] Comment on above: Performed By: #### L 500.4050, L501.9520, L500.4100, L100.0500 ####[facility] [address] [place], [address] ALT [Catalytic activity/Vol] 16 U/L Normal 13-56 [facility] Comment on above: Performed By: #### L 500.4050, L501.9520, L500.4100, L100.0500 ####[facility] [address] [place], [address] AST [Catalytic activity/Vol] 21 U/L Normal 15-37 [facility] Comment on above: Performed By: #### L 500.4050, L501.9520, L500.4100, L100.0500 ####[facility] [address] [place], [address] Bilirubin [Mass/Vol] 0.60 mg/dL Normal 0.20-1.00 [facility] Comment on above: Result Comment: For patients on eltrombopag therapy, use of Dimension [place] TBIL is not recommended. Performed By: #### L 500.4050, L501.9520, L500.4100, L100.0500 ####[facility] [address] [place], [address] BUN/CRE 15.7 RATIO Normal 10-20 [facility] Comment on above: Performed By: #### L 500.4050, L501.9520, L500.4100, L100.0500 ####[facility] [address] [place], [address] CA,Total 8.9 mg/dL Normal 8.5-10.1 [facility] Comment on above: Performed By: #### L 500.4050, L501.9520, L500.4100, L100.0500 ####[facility] [address] [place], [address] Chloride [Moles/Vol] 109 mmol/L High 98-107 [facility] Comment on above: Performed By: #### L 500.4050, L501.9520, L500.4100, L100.0500 ####[facility] [address] [place], [address] CO2 [Moles/Vol] 24.0 mmol/L Normal 21.0-32.0 [facility] Comment on above: Performed By: #### L 500.4050, L501.9520, L500.4100, L100.0500 ####[facility] [address] [place], [address] Creatinine [Mass/Vol] 1.02 mg/dL Normal 0.55-1.02 [facility] Comment on above: Result Comment: The validity of the calculated GFR GFRAA in patients over70 years has not been determined. Clinical correlation isessential. Performed By: #### L 500.4050, L501.9520, L500.4100, L100.0500 ####[facility] [address] [place], [address] ECRCL 58.27 ml/min Normal [facility] Comment on above: Performed By: #### L 500.4050, L501.9520, L500.4100, L100.0500 ####[facility] [address] [place], [address] EST GFR - AA 70 mL/min Normal >60 [facility] Comment on above: Result Comment: Afri can Micronesian GFR Calc Performed By: #### L 500.4050, L501.9520, L500.4100, L100.0500 ####[facility] [address] [place], [address] GAP 6 Normal 5-15 [facility] Comment on above: Performed By: #### L 500.4050, L501.9520, L500.4100, L100.0500 ####[facility] [address] [place], [address] GFR/1.73 sq M.predicted among non-blacks MDRD (S/P/Bld) [Vol rate/Area] 58 mL/min/{1.73_m2} Low >60 [facility] Comment on above: Result Comment: Non- GFR Calc Performed By: #### L 500.4050, L501.9520, L500.4100, L100.0500 ####[facility] [address] [place], [address] Globulin (S) [Mass/Vol] 3.4 g/dL Normal 2.2-4.2 [facility] Comment on above: Performed By: #### L 500.4050, L501.9520, L500.4100, L100.0500 ####[facility] [address] [place], [address] Glucose [Mass/Vol] 100 mg/dL Normal 74-106 [facility] Comment on above: Result Comment: Fast ing Glucose result from 100 to 125 mg/dLsuggests IMPAIRED HOMEOSTASIS per A.D.A. criteria. Performed By: #### L 500.4050, L501.9520, L500.4100, L100.0500 ####[facility] [address] [place], [address] Potassium [Moles/Vol] 4.0 mmol/L Normal 3.5-5.1 [facility] Comment on above: Performed By: #### L 500.4050, L501.9520, L500.4100, L100.0500 ####[facility] [address] [place], [address] Sodium [Moles/Vol] 138 mmol/L Normal 136-145 [facility] Comment on above: Performed By: #### L 500.4050, L501.9520, L500.4100, L100.0500 ####[facility] [address] [place], [address] T PROT 6.6 g/dL Normal 6.4-8.2 [facility] Comment on above: Performed By: #### L 500.4050, L501.9520, L500.4100, L100.0500 ####[facility] [address] [place], [address] Urea nitrogen [Mass/Vol] 16 mg/dL Normal 7-18 [facility] Comment on above: Performed By: #### L 500.4050, L501.9520, L500.4100, L100.0500 ####[facility] [address] [place], [address] Echo Completeon 10-10-2024 Echo Complete Normal [facility] High density lipoprotein (HD L) measurementOrdered By: Tawanna Holder on 10-10-2024 Cholesterol in HDL [Mass/Vol] 37 mg/dL Low >40 [facility] Comment on above: The drugs N-Acetylcy steine and Metamizole may falsely depress this assay. Reference Range HDL <40 mg/dL Low HDL Cholesterol HDL >or= 60 mg/dL High HDL Cholesterol Laboratory - Chemistry and C hemistry - challengeOrdered By: Adan Galindo on 10-10-2024 AST [Catalytic activity/Vol] 21 U/L 15-37 [facility] Lipid Profileon 10-10-2024 Cholesterol [Mass/Vol] 226 mg/dL High 200 [facility] Comment on above: Result Comment: <200 mg/dL Desirable 200-240 mg/dL Borderline >240 mg/dL High Risk Performed By: #### L 500.4050, L501.9520, L500.4100, L100.0500 ####[facility] [address] [place], [address] Cholesterol in HDL [Mass/Vol] 37 mg/dL Low [facility] Comment on above: Result Comment: The drugs N-Acetylcysteine and Metamizole may falselydepress this assay. Reference Range HDL <40 mg/dL Low HDL Cholesterol HDL >or= 60 mg/dL High HDL Cholesterol Performed By: #### L 500.4050, L501.9520, L500.4100, L100.0500 ####[facility] [address] [place], [address] Cholesterol in LDL [Mass/Vol] 160 mg/dL High 0-130 [facility] Comment on above: Performed By: #### L 500.4050, L501.9520, L500.4100, L100.0500 ####[facility] [address] [place], [address] Cholesterol in VLDL [Mass/Vol] 29 mg/dL Normal 5-40 [facility] Comment on above: Performed By: #### L 500.4050, L501.9520, L500.4100, L100.0500 ####[facility] [address] [place], [address] Triglyceride [Mass/Vol] 146 mg/dL Normal [facility] Comment on above: Result Comment: The drugs N-Acetylcysteine and Metamizole may falselydepress this assay.Serum Triglycerides Reference Interval Normal <150 mg/dL Borderline high 150 - 199 mg/dL High 200 - 499 mg/dL Very High > or = 500 mg/dL Performed By: #### L 500.4050, L501.9520, L500.4100, L100.0500 ####[facility] [address] [place], [place], [address] Low density lipoprotein (LDL ) cholesterol measurementOrdered By: Tawanna Holder on 10-10-2024 Cholesterol in LDL [Mass/Vol] 160 mg/dL High 0-130 [facility] MR/QUALITYon 10-10-2024 MR/QUALITY Normal [facility] Magnesiumon 10-10-2024 Magnesium [Mass/Vol] 2.2 mg/dL Normal 1.6-2.6 [facility] Comment on above: Order Comment: Comme nts: off of am bloodwork Performed By: #### L 501.5200 ####[facility] [address] [place], [place], [address] Magnesium measurementOrdered By: Kraig Feliz on 10-10-2024 Magnesium [Mass/Vol] 2.2 mg/dL 1.6-2.6 [facility] Serum globulin measurementOr dered By: Adan Galindo on 10-10-2024 Globulin (S) [Mass/Vol] 3.4 g/dL 2.2-4.2 [facility] Serum or plasma alanine tovar otransferase (ALT) measurementOrdered By: Adan Galindo on 10-10-2024 ALT [Catalytic activity/Vol] 16 U/L 13-56 [facility] Serum or plasma albumin rosalina urement (mass/volume)Ordered By: Adan Galindo on 10-10-2024 Albumin [Mass/Vol] 3.2 g/dL 3.2-5.0 [facility] Serum or plasma alkaline blanche sphatase measurementOrdered By: Adan Galindo on 10-10-2024 ALP [Catalytic activity/Vol] 60 U/L 45-117 [facility] Serum or plasma cholesterol measurement (mass/volume)Ordered By: Tawanna Hloder on 10-10-2024 Cholesterol [Mass/Vol] 226 mg/dL High <200 [facility] Comment on above: <200 mg/dL Desirable 200-240 mg/dL Borderline >240 mg/dL High Risk TSH QnOrdered By: Tawanna may on 10-10-2024 Thyroid Stimulating Hormone (TSH) 1.360 uIU/mL 0.358-3.740 [facility] Thyroid Stim Hormone (TSH)on 10-10-2024 TSH 1.360 uIU/mL Normal 0.358-3.740 [facility] Comment on above: Performed By: #### L 500.4050, L501.9520, L500.4100, L100.0500 ####[facility] [address] [place], [place], [address] Total proteinOrdered By: Luigi Galindo on 10-10-2024 Protein [Mass/Vol] 6.6 g/dL 6.4-8.2 [facility] Triglycerides measurementOrd ered By: Tawanna Holder on 10-10-2024 Triglyceride [Mass/Vol] 146 mg/dL <[address] [facility] Comment on above: The drugs N-Acetylcy steine and Metamizole may falsely depress this assay.Serum Triglycerides Reference Interval Normal <150 mg/dL Borderline high 150 - 199 mg/dL High 200 - 499 mg/dL Very High > or = 500 mg/dL Very low density lipoprotein (VLDL) cholesterol measurementOrdered By: Tawanna Holder on 10-10-2024 VLDL Cholesterol 29 mg/dL 5-40 [facility] 12 Lead EKGon 10-09-2024 12 Lead EKG Normal [facility] 12 Lead EKG Normal [facility] Absolute neutrophil countOrd ered By: Piyush Sanchez on 10-09-2024 Neutrophils (Bld) [#/Vol] 6.7 10*3/uL 2.0-7.7 [facility] Basic Metabolic Profile (BMP )on 10-09-2024 BUN/CRE 14.4 RATIO Normal 10-20 [facility] Comment on above: Order Comment: 'TROP ' Serial specimen #1, #2 or #3: 1 Performed By: #### L 300.3900, L501.4020, L300.4310, L100.0100, L500.2500 ####[facility] [address] [place], [address] CA,Total 9.7 mg/dL Normal 8.5-10.1 [facility] Comment on above: Order Comment: 'TROP ' Serial specimen #1, #2 or #3: 1 Performed By: #### L 300.3900, L501.4020, L300.4310, L100.0100, L500.2500 ####[facility] [address] [place], [address] Chloride [Moles/Vol] 106 mmol/L Normal 98-107 [facility] Comment on above: Order Comment: 'TROP ' Serial specimen #1, #2 or #3: 1 Performed By: #### L 300.3900, L501.4020, L300.4310, L100.0100, L500.2500 ####[facility] [address] [place], [address] CO2 [Moles/Vol] 26.0 mmol/L Normal 21.0-32.0 [facility] Comment on above: Order Comment: 'TROP ' Serial specimen #1, #2 or #3: 1 Performed By: #### L 300.3900, L501.4020, L300.4310, L100.0100, L500.2500 ####[facility] [address] [place], [address] Creatinine [Mass/Vol] 1.25 mg/dL High 0.55-1.02 [facility] Comment on above: Order Comment: 'TROP ' Serial specimen #1, #2 or #3: 1 Result Comment: The validity of the calculated GFR GFRAA in patients over70 years has not been determined. Clinical correlation isessential. Performed By: #### L 300.3900, L501.4020, L300.4310, L100.0100, L500.2500 ####[facility] [address] [place], [address] ECRCL 47.64 ml/min Normal [facility] Comment on above: Order Comment: 'TROP ' Serial specimen #1, #2 or #3: 1 Performed By: #### L 300.3900, L501.4020, L300.4310, L100.0100, L500.2500 ####[facility] [address] [place], [address] EST GFR - AA 55 mL/min Low >60 [facility] Comment on above: Order Comment: 'TROP ' Serial specimen #1, #2 or #3: 1 Result Comment: Afri can Micronesian GFR Calc Performed By: #### L 300.3900, L501.4020, L300.4310, L100.0100, L500.2500 ####[facility] [address] [place], [address] GAP 6 Normal 5-15 [facility] Comment on above: Order Comment: 'TROP ' Serial specimen #1, #2 or #3: 1 Performed By: #### L 300.3900, L501.4020, L300.4310, L100.0100, L500.2500 ####[facility] [address] [place], [address] GFR/1.73 sq M.predicted among non-blacks MDRD (S/P/Bld) [Vol rate/Area] 46 mL/min/{1.73_m2} Low >60 [facility] Comment on above: Order Comment: 'TROP ' Serial specimen #1, #2 or #3: 1 Result Comment: Non- GFR Calc Performed By: #### L 300.3900, L501.4020, L300.4310, L100.0100, L500.2500 ####[facility] [address] [place], [address] Glucose [Mass/Vol] 136 mg/dL High 74-106 [facility] Comment on above: Order Comment: 'TROP ' Serial specimen #1, #2 or #3: 1 Result Comment: Fast ing Glucose result greater than or equal to 126 mg/dLsuggests DIABETES MELLITUS per A.D.A. criteria. Performed By: #### L 300.3900, L501.4020, L300.4310, L100.0100, L500.2500 ####[facility] [address] [place], [address] Potassium [Moles/Vol] 3.7 mmol/L Normal 3.5-5.1 [facility] Comment on above: Order Comment: 'TROP ' Serial specimen #1, #2 or #3: 1 Performed By: #### L 300.3900, L501.4020, L300.4310, L100.0100, L500.2500 ####[facility] [address] [place], [address] Sodium [Moles/Vol] 139 mmol/L Normal 136-145 [facility] Comment on above: Order Comment: 'TROP ' Serial specimen #1, #2 or #3: 1 Performed By: #### L 300.3900, L501.4020, L300.4310, L100.0100, L500.2500 ####[facility] [address] [place], [address] Urea nitrogen [Mass/Vol] 18 mg/dL Normal 7-18 [facility] Comment on above: Order Comment: 'TROP ' Serial specimen #1, #2 or #3: 1 Performed By: #### L 300.3900, L501.4020, L300.4310, L100.0100, L500.2500 ####[facility] [address] [place], [address] Basophil percentageOrdered B y: Piyush Sanchez on 10-09-2024 Basophils/100 WBC (Bld) 1.1 % High 0-[address] [facility] CBC W/Diff, Automatedon 09-23 Absolute Lymph 4.61 X10 3/uL High 0.83-4.51 [facility] Comment on above: Performed By: #### L 300.3900, L501.4020, L300.4310, L100.0100, L500.2500 ####[facility] [address] [place], [address] Absolute Neut 6.7 X10 3/uL Normal 2.0-7.7 [facility] Comment on above: Performed By: #### L 300.3900, L501.4020, L300.4310, L100.0100, L500.2500 ####[facility] [address] [place], [address] Basophils/100 WBC (Bld) 1.1 % High 0-[address] [facility] Comment on above: Performed By: #### L 300.3900, L501.4020, L300.4310, L100.0100, L500.2500 ####[facility] [address] [place], [address] Eosinophils/100 WBC (Bld) 1.6 % Normal 0-5 [facility] Comment on above: Performed By: #### L 300.3900, L501.4020, L300.4310, L100.0100, L500.2500 ####[facility] [address] [place], [address] Erythrocyte distribution width (RBC) [Ratio] 13.2 % Normal 11.6-14.6 [facility] Comment on above: Performed By: #### L 300.3900, L501.4020, L300.4310, L100.0100, L500.2500 ####[facility] [address] [place], [address] Hematocrit (Bld) [Volume fraction] 44.8 % Normal 37-47 [facility] Comment on above: Performed By: #### L 300.3900, L501.4020, L300.4310, L100.0100, L500.2500 ####[facility] [address] [place], [address] Hemoglobin (Bld) [Mass/Vol] 15.1 g/dL High 12.0-15.0 [facility] Comment on above: Performed By: #### L 300.3900, L501.4020, L300.4310, L100.0100, L500.2500 ####[facility] [address] [place], [address] IG% 0.300 Normal 0.0-0.9 [facility] Comment on above: Result Comment: IG% - Immature Granulocytes (promyelocytes, myelocytes andmetamyelocytes) > 1% indicates that a LEFT SHIFT is Present. Performed By: #### L 300.3900, L501.4020, L300.4310, L100.0100, L500.2500 ####[facility] [address] [place], [address] Lymphocytes/100 WBC (Bld) 37.1 % Normal 19-41 [facility] Comment on above: Performed By: #### L 300.3900, L501.4020, L300.4310, L100.0100, L500.2500 ####[facility] [address] [place], [address] MCH (RBC) [Entitic mass] 31.5 pg Normal 27.0-32.0 [facility] Comment on above: Performed By: #### L 300.3900, L501.4020, L300.4310, L100.0100, L500.2500 ####[facility] [address] [place], [address] MCHC (RBC) [Mass/Vol] 33.7 g/dL Normal 32-36 [facility] Comment on above: Performed By: #### L 300.3900, L501.4020, L300.4310, L100.0100, L500.2500 ####[facility] [address] [place], [address] MCV (RBC) [Entitic vol] 93.5 fL Normal 81-[address] [facility] Comment on above: Performed By: #### L 300.3900, L501.4020, L300.4310, L100.0100, L500.2500 ####[facility] [address] [place], [address] Monocytes/100 WBC (Bld) 5.6 % Normal 0-10 [facility] Comment on above: Performed By: #### L 300.3900, L501.4020, L300.4310, L100.0100, L500.2500 ####[facility] [address] [place], [address] Neutrophils/100 WBC (Bld) 54.3 % Normal 47-70 [facility] Comment on above: Performed By: #### L 300.3900, L501.4020, L300.4310, L100.0100, L500.2500 ####[facility] [address] [place], [address] Nucleated RBC (Bld) [#/Vol] 0 10*3/uL Normal 0-5 [facility] Comment on above: Performed By: #### L 300.3900, L501.4020, L300.4310, L100.0100, L500.2500 ####[facility] [address] [place], [address] Platelet mean volume (Bld) [Entitic vol] 9.5 fL Normal 6.2-12.0 [facility] Comment on above: Performed By: #### L 300.3900, L501.4020, L300.4310, L100.0100, L500.2500 ####[facility] [address] [place], [address] Platelets (Bld) [#/Vol] 272 10*3/uL Normal 150-450 [facility] Comment on above: Performed By: #### L 300.3900, L501.4020, L300.4310, L100.0100, L500.2500 ####[facility] [address] [place], [address] RBC (Bld) [#/Vol] 4.79 10*6/uL Normal 4.2-5.4 [facility] Comment on above: Performed By: #### L 300.3900, L501.4020, L300.4310, L100.0100, L500.2500 ####[facility] [address] [place], [address] RDW SD 45.1 fl High 35.1-43.9 [facility] Comment on above: Performed By: #### L 300.3900, L501.4020, L300.4310, L100.0100, L500.2500 ####[facility] [address] [place], [address] WBC (Bld) [#/Vol] 12.4 10*3/uL High 4.4-11.0 [facility] Comment on above: Performed By: #### L 300.3900, L501.4020, L300.4310, L100.0100, L500.2500 ####[facility] [address] [place], [address] Consultation - Cardiologyon 10-09-2024 Consultation - Cardiology Normal [facility] Emergency Department Summary on 10-09-2024 Emergency Department Summary Normal [facility] Eosinophil percentageOrdered By: Piyush Sanchez on 10-09-2024 Eosinophils/100 WBC (Bld) 1.6 % 0-5 [facility] H AND P Exam - Hospitaliston 10-09-2024 H&P Exam - Hospitalist Normal [facility] Immature granulocytes/100 WB C Auto (Bld)Ordered By: Piyush Sanchez on 10-09-2024 Immature granulocytes/100 WBC (Bld) 0.300 % 0.0-0.9 [facility] Comment on above: IG% - Immature Granu locytes (promyelocytes, myelocytes and metamyelocytes) > 1% indicates that a LEFT SHIFT is Present. International normalized rat io (INR) calculationOrdered By: Piyush Sanchez on 10-09-2024 INR Coag (Bld) [Relative time] 1.0 {INR} [facility] L501.4020on 10-09-2024 TROPONIN-I HS 1100 pg/mL Invalid Interpretation Code 3.0-54.0 [facility] Comment on above: Order Comment: Comme nts: TNIH @ 0, 2, 6 hrs; Check #2 TNIH done in ED'TROP' Serial specimen #1, #2 or #3: 2 Result Comment: Crit ical Result(s) Called at: 18:12:18 10/09/2024 by: ARMANI TO GUERA KU. Results read back by same. Please Note: New Test Units and Gender Specific Reference Ranges. For more information see Policy Stat Procedure [place] High Sensitivity Troponin (TNIH) and attachments. Performed By: #### L 501.4020 ####[facility] [address] [place], [place], [id number] TROPONIN-I HS 113 pg/mL High 3.0-54.0 [facility] Comment on above: Order Comment: 'TROP ' Serial specimen #1, #2 or #3: 1 Result Comment: Plea se Note: New Test Units and Gender Specific Reference Ranges. For more information see Policy Stat Procedure [place] High Sensitivity Troponin (TNIH) and attachments. Performed By: #### L 300.3900, L501.4020, L300.4310, L100.0100, L500.2500 ####[facility] [address] [place], [address] Lymphocytes Auto (Unsp spec) [#/Vol]Ordered By: Piyush Sanchez on 10-09-2024 Lymphocytes (Bld) [#/Vol] 4.61 10*3/uL High 0.83-4.51 [facility] Lymphocytes/100 WBC Auto (Un sp spec)Ordered By: Piyush Sanchez on 10-09-2024 Lymphocytes/100 WBC (Bld) 37.1 % 19-41 [facility] Monocyte percentageOrdered B y: Piyush Sanchez on 10-09-2024 Monocytes/100 WBC (Bld) 5.6 % 0-[address] [facility] Neutrophil percentageOrdered By: Piyush Sanchez on 10-09-2024 Neutrophils/100 WBC (Bld) 54.3 % 47-70 [facility] Nucleated red blood cell per centageOrdered By: Piyush Sanchez on 10-09-2024 Nucleated RBC/100 WBC (Bld) [Ratio] 0 % 0-5 [facility] Partial Thromboplast Timeon 10-09-2024 aPTT Coag (Bld) [Time] 23.1 s Low 24.1-36.2 [facility] Comment on above: Performed By: #### L 300.3900, L501.4020, L300.4310, L100.0100, L500.2500 ####[facility] [address] [place], [address] Prothrombin Time w/INRon INR Coag (PPP) [Relative time] 1.0 {INR} Normal [facility] Comment on above: Performed By: #### L 300.3900, L501.4020, L300.4310, L100.0100, L500.2500 ####[facility] [address] [place], [address] PT Coag (PPP) [Time] 13.1 s Normal 11.7-14.9 [facility] Comment on above: Performed By: #### L 300.3900, L501.4020, L300.4310, L100.0100, L500.2500 ####[facility] [address] [place], [address] Prothrombin timeOrdered By: Piyush Sanchez on 10-09-2024 PT Coag (PPP) [Time] 13.1 s 11.7-14.9 [facility] Troponin IOrdered By: Tawanna Holder on 10-09-2024 Troponin I High Sensitivity 1100 pg/mL High 3.0-54.0 [facility] Comment on above: Critical Result(s) C alled at: 18:12:18 10/09/2024 by: SHAMA SEGUNDO TO GUERA KU. Results read back by same. Please Note: New Test Units and Gender Specific Reference Ranges. For more information see Policy Stat Procedure [place] High Sensitivity Troponin (TNIH) and attachments. aPTT Coag (PPP) [Time]Ordere d By: Piyush Sanchez on 10-09-2024 aPTT Coag (Bld) [Time] 23.1 s Low 24.1-36.2 [facility] Brain W/WO Contraston 2023 Brain W/WO Contrast Normal [facility] CREATININE FINGERSTICKon Creatinine [Mass/Vol] 1.2 mg/dL High 0.55-1.02 [facility] Comment on above: Performed By: #### L 9100.0200 ####[facility] [address] [place], [address] GFR/1.73 sq M.predicted among non-blacks MDRD (S/P/Bld) [Vol rate/Area] 46.0000 mL/min/{1.73_m2} Low >60 [facility] Comment on above: Performed By: #### L 9100.0200 ####[facility] [address] [place], [place], [address] US ABDOMEN COMPLETEon 2021 US ABDOMEN COMPLETE ORIGINAL EXAMINATION: ULTRASOUND ABDOMEN COMPLETE TECHNIQUE: Grayscale and color Doppler flow images of the abdomen were obtained COMPARISON: None HISTORY: ORDERING SYSTEM PROVIDED HISTORY: Reason for Exam: Epigastric pain FINDINGS: The liver is normal in echogenicity. There is no intra or extrahepatic bile duct dilatation. The common duct is 4 mm at the tutu hepatis. The gallbladder is normally distended without calculus, wall thickening or tenderness. The visualized pancreas is unremarkable although its tail portion is not well seen. The spleen is measures 9.2 x 4.7 x 9.3 cm and is normal in echogenicity. Calcified splenic granulomata are noted. No ascites. The right kidney measures 8.8 x 4.7 x 3.8 cm. The left kidney measures 9.3 x 5.1 x 4.2 cm. Cortical thickness and echogenicity are normal. No evidence of hydronephrosis, calculus or space occupying soft tissue mass. Visualized IVC and aorta are not abnormally dilated. IMPRESSION: Essentially unremarkable examination. Interpreted by: Larry Garcia MD Preliminary Report By: Larry Garcia MD Electronically signed By Larry Garcia MD Dictated Date: 12/21/2021 9:50:42 AM Prelim Date: 12/21/2021 9:53:09 AM Sign Date: 12/21/2021 9:53:09 AM Ordering Provider: BRANDEN AKERS Normal [facility] ([place]) CMPon 12-05-2021 ALP [Catalytic activity/Vol] 69 U/L Normal 40-135 [facility]) Comment on above: Performed By: #### C BC, ADIFF, ANEU, CMP, GFR #### [address] [address] .Auto Diffon 12-04-2021 Basophil, Absolute 0.10 10 3/mcL Normal 0.00-0.19 [facility] ([place]) Comment on above: Performed By: #### C BC, ADIFF, ANEU, CMP, GFR #### [address] [address] Basophils/100 WBC (Bld) 1.1 % Normal 0.0-2.5 [facility] ([place]) Comment on above: Performed By: #### C BC, ADIFF, ANEU, CMP, GFR #### [address] [address] Eosinophil, Absolute 0.20 10 3/mcL Normal 0.00-0.40 [facility] ([place]) Comment on above: Performed By: #### C BC, ADIFF, ANEU, CMP, GFR #### [address] [address] Eosinophils/100 WBC (Bld) 1.5 % Normal 0.0-7.0 [facility] ([place]) Comment on above: Performed By: #### C BC, ADIFF, ANEU, CMP, GFR #### [address] [address] Lymphocyte, Absolute 3.00 10 3/mcL Normal 0.77-3.85 [facility] ([place]) Comment on above: Performed By: #### C BC, ADIFF, ANEU, CMP, GFR #### [address] [address] Lymphocytes/100 WBC (Bld) 23.2 % Normal 10.0-50.0 [facility] ([place]) Comment on above: Performed By: #### C BC, ADIFF, ANEU, CMP, GFR #### [address] [address] Monocyte, Absolute 0.80 10 3/mcL Normal 0.15-1.00 [facility] ([place]) Comment on above: Performed By: #### C BC, ADIFF, ANEU, CMP, GFR #### [address] [address] Monocytes/100 WBC (Bld) 6.7 % Normal 1.7-13.0 [facility] ([place]) Comment on above: Performed By: #### C BC, ADIFF, ANEU, CMP, GFR #### [address] [address] Neutrophils/100 WBC (Bld) 67.5 % Normal 37.0-80.0 [facility] ([place]) Comment on above: Performed By: #### C BC, ADIFF, ANEU, CMP, GFR #### [address] [address] .GFRon 12-04-2021 GFR 61 ml/min/1.73sqm Normal [facility] ([place]) Comment on above: Result Comment: GFR Population mean for , Non- Americans Ages 20-29 = 116 mL/min/1.73 sq.m. Ages 30-39 = 107 mL/min/1.73 sq.m. Ages 40-49 = 99 mL/min/1.73 sq.m. Ages 50-59 = 93 mL/min/1.73 sq.m. Ages 60-69 = 85 mL/min/1.73 sq.m. Ages 70+ = 75 mL/min/1.73 sq.m. Chronic Kidney Disease: Less than 60 mL/min/1.73 square meters End Stage Renal Disease: Less than 15 mL/min/1.73 square meters Performed By: #### C BC, ADIFF, ANEU, CMP, GFR #### [address] [address] GFR Non- 50 ml/min/1.73sqm Normal [facility] ([place]) Comment on above: Result Comment: GFR Population mean for , Non- Americans Ages 20-29 = 116 mL/min/1.73 sq.m. Ages 30-39 = 107 mL/min/1.73 sq.m. Ages 40-49 = 99 mL/min/1.73 sq.m. Ages 50-59 = 93 mL/min/1.73 sq.m. Ages 60-69 = 85 mL/min/1.73 sq.m. Ages 70+ = 75 mL/min/1.73 sq.m. Chronic Kidney Disease: Less than 60 mL/min/1.73 square meters End Stage Renal Disease: Less than 15 mL/min/1.73 square meters Performed By: #### C BC, ADIFF, ANEU, CMP, GFR #### [address] [address] .NEUABSon 12-04-2021 Neutrophil, Absolute 8.60 10 3/mcL High 2.85-6.16 [facility] ([place]) Comment on above: Performed By: #### C BC, ADIFF, ANEU, CMP, GFR #### [address] [address] CBCon 12-04-2021 Erythrocyte distribution width (RBC) [Ratio] 13.6 % Normal 11.5-14.5 [facility] ([place]) Comment on above: Performed By: #### C BC, ADIFF, ANEU, CMP, GFR #### [address] [address] Hematocrit (Bld) [Volume fraction] 43.4 % Normal 37.0-47.0 [facility] ([place]) Comment on above: Performed By: #### C BC, ADIFF, ANEU, CMP, GFR #### [address] [address] Hgb 15.0 G/dL Normal 12.0-16.0 [facility] ([place]) Comment on above: Performed By: #### C BC, ADIFF, ANEU, CMP, GFR #### [address] [address] MCH (RBC) [Entitic mass] 31.5 pg High 27.0-31.2 [facility] ([place]) Comment on above: Performed By: #### C BC, ADIFF, ANEU, CMP, GFR #### [address] [address] MCHC 34.6 G/dL Normal 33.0-37.0 [facility] ([place]) Comment on above: Performed By: #### C BC, ADIFF, ANEU, CMP, GFR #### [address] [address] MCV (RBC) [Entitic vol] 91.2 fL Normal 80.0-94.0 [facility] ([place]) Comment on above: Performed By: #### C BC, ADIFF, ANEU, CMP, GFR #### [address] [address] Platelet 325 10 3/mcL Normal 130-400 [facility] ([place]) Comment on above: Performed By: #### C BC, ADIFF, ANEU, CMP, GFR #### [address] [address] Platelet mean volume (Bld) [Entitic vol] 8.5 fL Normal 7.4-10.4 [facility] ([place]) Comment on above: Performed By: #### C BC, ADIFF, ANEU, CMP, GFR #### [address] [address] RBC 4.76 10 6/mcL Normal 4.20-5.40 [facility] ([place]) Comment on above: Performed By: #### C BC, ADIFF, ANEU, CMP, GFR #### [address] [address] WBC 12.70 10 3/mcL High 4.60-10.80 [facility] ([place]) Comment on above: Performed By: #### C BC, ADIFF, ANEU, CMP, GFR #### [address] [address] CMPon 12-04-2021 Albumin Level 3.7 G/dL Normal 3.4-4.8 [facility] ([place]) Comment on above: Performed By: #### C BC, ADIFF, ANEU, CMP, GFR #### [address] [address] Albumin/Globulin [Mass ratio] 1.2 {ratio} Normal 1.1-2.5 [facility] ([place]) Comment on above: Performed By: #### C BC, ADIFF, ANEU, CMP, GFR #### [address] [address] ALT [Catalytic activity/Vol] 20 U/L Normal 14-59 [facility] ([place]) Comment on above: Performed By: #### C BC, ADIFF, ANEU, CMP, GFR #### [address] [address] AST [Catalytic activity/Vol] 13 U/L Normal 10-40 [facility] ([place]) Comment on above: Performed By: #### C BC, ADIFF, ANEU, CMP, GFR #### [address] [address] Bili Total 0.3 mg/dL Normal 0.2-1.0 [facility] ([place]) Comment on above: Result Comment: Use of this assay is not recommended for patients undergoing treatment with eltrombopag due to the potential for falsely elevated results. Performed By: #### C BC, ADIFF, ANEU, CMP, GFR #### [address] [address] BUN/Creatinine Ratio 24 ratio Normal 7-27 On license of [facility] ([place]) Comment on above: Performed By: #### C BC, ADIFF, ANEU, CMP, GFR #### [address] [address] Calcium [Mass/Vol] 9.3 mg/dL Normal 8.4-10.2 [facility] [place] Comment on above: Performed By: #### C BC, ADIFF, ANEU, CMP, GFR #### [address] [address] Chloride [Moles/Vol] 105 mmol/L Normal 98-107 On license of [facility] ([place]) Comment on above: Performed By: #### C BC, ADIFF, ANEU, CMP, GFR #### [address] [address] CO2 [Moles/Vol] 26 mmol/L Normal 23-31 [facility] ([place] Comment on above: Performed By: #### C BC, ADIFF, ANEU, CMP, GFR #### [address] [address] Creatinine [Mass/Vol] 1.10 mg/dL High 0.55-1.02 [facility] ([place]) Comment on above: Performed By: #### C BC, ADIFF, ANEU, CMP, GFR #### [address] [address] Electrolyte Balance 12.0 mEq/L Normal 4.0-15.0 [facility] ([place]) Comment on above: Performed By: #### C BC, ADIFF, ANEU, CMP, GFR #### [address] [address] Globulin 3.2 G/dL Normal [facility] ([place] Comment on above: Performed By: #### C BC, ADIFF, ANEU, CMP, GFR #### [address] [address] Glucose [Mass/Vol] 85 mg/dL Normal 80-115 [facility] [place] Comment on above: Performed By: #### C BC, ADIFF, ANEU, CMP, GFR #### [address] [address] Potassium [Moles/Vol] 4.3 mmol/L Normal 3.5-5.1 [facility] ([place]) Comment on above: Performed By: #### C BC, ADIFF, ANEU, CMP, GFR #### [address] [address] Sodium [Moles/Vol] 143 mmol/L Normal 136-145 [facility] [place] Comment on above: Performed By: #### C BC, ADIFF, ANEU, CMP, GFR #### [address] [address] Total Protein 6.9 G/dL Normal 6.4-8.2 [facility] ([place] Comment on above: Performed By: #### C BC, ADIFF, ANEU, CMP, GFR #### [address] [address] Urea nitrogen [Mass/Vol] 26 mg/dL High 7-18 [facility] ([place]) Comment on above: Performed By: #### C BC, ADIFF, ANEU, CMP, GFR #### [address] [address] LABORATORYOrdered By: Beverley Carlson on 12-04-2021 Albumin BCP dye [Mass/Vol] 3.7 G/dL Invalid Interpretation Code 3.4 - 4.8 G/dL AO ADM SS Albumin/Globulin [Mass ratio] 1.2 {ratio} Invalid Interpretation Code 1.1 - 2.5 ratio AO ADM SS ALT With P-5'-P [Catalytic activity/Vol] 20 U/L Invalid Interpretation Code 14 - 59 U/L AO ADM SS AST With P-5'-P [Catalytic activity/Vol] 13 U/L Invalid Interpretation Code 10 - 40 U/L AO ADM SS Bilirubin [Mass/Vol] 0.3 mg/dL Invalid Interpretation Code 0.2 - 1.0 mg/dL AO ADM SS Calcium [Mass/Vol] 9.3 mg/dL Invalid Interpretation Code 8.4 - 10.2 mg/dL AO ADM SS Chloride [Moles/Vol] 105 mmol/L Invalid Interpretation Code 98 - 107 mmol/L AO ADM SS CO2 [Moles/Vol] 26 mmol/L Invalid Interpretation Code 23 - 31 mmol/L AO ADM SS Creatinine [Mass/Vol] 1.10 mg/dL Invalid Interpretation Code 0.55 - 1.02 mg/dL AO ADM SS Electrolyte Balance 12.0 mEq/L Invalid Interpretation Code 4.0 - 15.0 mEq/L AO ADM SS Globulin 3.2 G/dL Invalid Interpretation Code AO ADM SS Glucose [Mass/Vol] 85 mg/dL Invalid Interpretation Code 80 - 115 mg/dL AO ADM SS Potassium [Moles/Vol] 4.3 mmol/L Invalid Interpretation Code 3.5 - 5.1 mmol/L AO ADM SS Protein [Mass/Vol] 6.9 G/dL Invalid Interpretation Code 6.4 - 8.2 G/dL AO ADM SS Sodium [Moles/Vol] 143 mmol/L Invalid Interpretation Code 136 - 145 mmol/L AO ADM SS Urea nitrogen [Mass/Vol] 26 mg/dL Invalid Interpretation Code 7 - 18 mg/dL AO ADM SS Urea nitrogen/Creatinine [Mass ratio] 24 ratio Invalid Interpretation Code 7 - 27 ratio AO ADM SS LABORATORYOrdered By: Alaina Leon on 12-04-2021 Basophil, Absolute 0.10 103/mcL Invalid Interpretation Code 0.00 - 0.19 10^3/mcL AO Auto Heme SS Basophils/100 WBC (Bld) 1.1 % Invalid Interpretation Code 0.0 - 2.5 % AO Auto Heme SS Eosinophil, Absolute 0.20 103/mcL Invalid Interpretation Code 0.00 - 0.40 10^3/mcL AO Auto Heme SS Eosinophils/100 WBC (Bld) 1.5 % Invalid Interpretation Code 0.0 - 7.0 % AO Auto Heme SS Erythrocyte distribution width (RBC) [Ratio] 13.6 % Invalid Interpretation Code 11.5 - 14.5 % AO Auto Heme SS Hematocrit (Bld) [Volume fraction] 43.4 % Invalid Interpretation Code 37.0 - 47.0 % AO Auto Heme SS Hemoglobin (Bld) [Mass/Vol] 15.0 G/dL Invalid Interpretation Code 12.0 - 16.0 G/dL AO Auto Heme SS Lymphocyte, Absolute 3.00 103/mcL Invalid Interpretation Code 0.77 - 3.85 10^3/mcL AO Auto Heme SS Lymphocytes/100 WBC (Bld) 23.2 % Invalid Interpretation Code 10.0 - 50.0 % AO Auto Heme SS MCH (RBC) [Entitic mass] 31.5 pg Invalid Interpretation Code 27.0 - 31.2 pg AO Auto Heme SS MCHC (RBC) [Mass/Vol] 34.6 G/dL Invalid Interpretation Code 33.0 - 37.0 G/dL AO Auto Heme SS MCV (RBC) [Entitic vol] 91.2 fL Invalid Interpretation Code 80.0 - 94.0 fL AO Auto Heme SS Monocyte, Absolute 0.80 103/mcL Invalid Interpretation Code 0.15 - 1.00 10^3/mcL AO Auto Heme SS Monocytes/100 WBC (Bld) 6.7 % Invalid Interpretation Code 1.7 - 13.0 % AO Auto Heme SS Neutrophil, Absolute 8.60 103/mcL Invalid Interpretation Code 2.85 - 6.16 10^3/mcL AO Auto Heme SS Neutrophils/100 WBC (Bld) 67.5 % Invalid Interpretation Code 37.0 - 80.0 % AO Auto Heme SS Platelet mean volume (Bld) [Entitic vol] 8.5 fL Invalid Interpretation Code 7.4 - 10.4 fL AO Auto Heme SS Platelets (Bld) [#/Vol] 325 103/mcL Invalid Interpretation Code 130 - 400 10^3/mcL AO Auto Heme SS RBC (Bld) [#/Vol] 4.76 106/mcL Invalid Interpretation Code 4.20 - 5.40 10^6/mcL AO Auto Heme SS WBC (Bld) [#/Vol] 12.70 103/mcL Invalid Interpretation Code 4.60 - 10.80 10^3/mcL AO Auto Heme SS LABORATORYOrdered By: SYSTEM SYSTEM on 12-04-2021 GFR 61 ml/min/1.73sqm Invalid Interpretation Code AO Chemistry S GFR Non- 50 ml/min/1.73sqm Inval id Interpretation Code AO Chemistry S Vital Signs Date Time Vital Sign Value Performing Clinician Facility 04-09-2025 07:04-0400 Body height 170.[address] Florin Bailey DO Work Phone: [facility] 04-09-2025 07:04-0400 Body weight 71.[address] Florin Bailey DO Work Phone: [facility] 04-05-2025 11:22-0400 Body height 170.[address] Florin Bailey DO Work Phone: [facility] 04-05-2025 11:22-0400 Body mass index (BMI) [Ratio] 24.3 kg/m2 Dr. Florin Bailey DO Work Phone: [facility] 04-05-2025 11:22-0400 Body weight 70.[address] Florin Bailey DO Work Phone: [facility] 04-05-2025 11:22-0400 Diastolic blood pressure 64 mm[Hg] Dr. Florin Bailey DO Work Phone: [facility] 04-05-2025 11:22-0400 Heart rate 80 /min Dr. Florin Bailey DO Work Phone: [facility] 04-05-2025 11:22-0400 Respiratory rate 16 /min Dr. Florin Bailey DO Work Phone: [facility] 04-05-2025 11:22-0400 Systolic blood pressure 114 mm[Hg] Dr. Florin Bailey DO Work Phone: [facility] 03-26-2025 09:25-0400 Body temperature 97.3 [degF] Nohemy Palumbo DO Work Phone: [facility] 03-26-2025 09:25-0400 Diastolic blood pressure 62 mm[Hg] Nohemy Palumbo DO Work Phone: [facility] 03-26-2025 09:25-0400 Heart rate 80 /min Nohemy Palumbo DO Work Phone: [facility] 03-26-2025 09:25-0400 Respiratory rate 18 /min Nohemy Palumbo DO Work Phone: [facility] 03-26-2025 09:25-0400 SaO2% (BldA) [Mass fraction] 98 % Nohemy Palumbo DO Work Phone: [facility] 03-26-2025 09:25-0400 Systolic blood pressure 118 mm[Hg] Nohemy Palumbo DO Work Phone: [facility] 03-21-2025 22:04-0400 Body height 170.2 cm Nohemy Palumbo DO Work Phone: [facility] 03-21-2025 22:04-0400 Body mass index (BMI) [Ratio] 24.36 kg/m2 Nohemy Palumbo DO Work Phone: [facility] 03-21-2025 22:04-0400 Body weight 70.58 kg Nohemy Palumbo DO Work Phone: [facility] 03-20-2025 14:29-0400 Body height 170.[address] Florin Bailey DO Work Phone: [facility] 03-20-2025 14:29-0400 Body mass index (BMI) [Ratio] 24.4 kg/m2 Dr. Florin Bailey DO Work Phone: [facility] 03-20-2025 14:29-0400 Body temperature 97.6 [degF] Dr. Florin Bailey DO Work Phone: [facility] 03-20-2025 14:29-0400 Body weight 70.[address] Florin Bailey DO Work Phone: [facility] 03-20-2025 14:29-0400 Diastolic blood pressure 66 mm[Hg] Dr. Florin Bailey DO Work Phone: [facility] 03-20-2025 14:29-0400 Heart rate 87 /min Dr. Florin Bailey DO Work Phone: [facility] 03-20-2025 14:29-0400 Respiratory rate 16 /min Dr. Florin Bailey DO Work Phone: [facility] 03-20-2025 14:29-0400 SaO2% (BldA) [Mass fraction] 99 % Dr. Florin Bailey DO Work Phone: [facility] 03-20-2025 14:29-0400 Systolic blood pressure 107 mm[Hg] Dr. Florin Bailey DO Work Phone: [facility] 03-18-2025 10:32-0400 Body temperature 98.2 [degF] Dr. Florin Bailey DO Work Phone: [facility] 03-18-2025 10:32-0400 Diastolic blood pressure 70 mm[Hg] Dr. Florin Bailey DO Work Phone: [facility] 03-18-2025 10:32-0400 Heart rate 79 /min Dr. Florin Bailey DO Work Phone: [facility] 03-18-2025 10:32-0400 Respiratory rate 19 /min Dr. Florin Bailey DO Work Phone: [facility] 03-18-2025 10:32-0400 SaO2% (BldA) [Mass fraction] 99 % Dr. Florin Bailey DO Work Phone: [facility] 03-18-2025 10:32-0400 Systolic blood pressure 118 mm[Hg] Dr. Florin Bailey DO Work Phone: [facility] 03-18-2025 04:58-0400 Body height 170.[address] Florin Bailey DO Work Phone: [facility] 03-18-2025 04:58-0400 Body mass index (BMI) [Ratio] 24.6 kg/m2 Dr. Florin Bailey DO Work Phone: [facility] 03-18-2025 04:58-0400 Body weight 71.[address] Florin Bailey DO Work Phone: [facility] 03-13-2025 07:09-0400 Body height 170.[address] Florin Bailey DO Work Phone: [facility] 03-13-2025 07:09-0400 Body weight 71.[address] Florin Bailey DO Work Phone: [facility] 03-04-2025 16:24-0400 Body temperature 98 [degF] Dr. Florin Bailey DO Work Phone: [facility] 03-04-2025 16:24-0400 Diastolic blood pressure 61 mm[Hg] Dr. Florin Bailey DO Work Phone: [facility] 03-04-2025 16:24-0400 Heart rate 64 /min Dr. Florin Bailey DO Work Phone: [facility] 03-04-2025 16:24-0400 Respiratory rate 14 /min Dr. Florin Bailey DO Work Phone: [facility] 03-04-2025 16:24-0400 SaO2% (BldA) [Mass fraction] 100 % Dr. Florin Bailey DO Work Phone: [facility] 03-04-2025 16:24-0400 Systolic blood pressure 99 mm[Hg] Dr. Florin Bailey DO Work Phone: [facility] 03-03-2025 13:24-0400 Body height 170.[address] Florin Bailey DO Work Phone: [facility] 03-03-2025 13:24-0400 Body weight 71.[address] Florin Bailey DO Work Phone: [facility] 03-03-2025 12:31-0400 Inhaled oxygen flow rate 2 L/min Dr. Florin Bailey DO Work Phone: [facility] 03-03-2025 08:25-0400 Body mass index (BMI) [Ratio] 24.6 kg/m2 Dr. Florin Bailey DO Work Phone: [facility] 03-03-2025 07:24-0400 Body temperature 97 [degF] Dr. Florin Bailey DO Work Phone: [facility] 03-03-2025 07:24-0400 Diastolic blood pressure 54 mm[Hg] Dr. Florin Bailey DO Work Phone: [facility] 03-03-2025 07:24-0400 Heart rate 87 /min Dr. Florin Bailey DO Work Phone: [facility] 03-03-2025 07:24-0400 Respiratory rate 23 /min Dr. Florin Bailey DO Work Phone: [facility] 03-03-2025 07:24-0400 SaO2% (BldA) [Mass fraction] 100 % Dr. Florin Bailey DO Work Phone: [facility] 03-03-2025 07:24-0400 Systolic blood pressure 104 mm[Hg] Dr. Florin Bailey DO Work Phone: [facility] 03-03-2025 06:47-0400 Inhaled oxygen flow rate 2 L/min Dr. Florin Baiely DO Work Phone: [facility] 03-03-2025 02:20-0400 Body height 170.[address] Florin Bailey DO Work Phone: [facility] 03-03-2025 02:20-0400 Body mass index (BMI) [Ratio] 25.7 kg/m2 Dr. Florin Bailey DO Work Phone: [facility] 03-03-2025 02:20-0400 Body weight 74.[address] Florin Bailey DO Work Phone: [facility] 02-28-2025 05:18-0400 Body temperature 97.4 [degF] Dr. Florin Bailey DO Work Phone: [facility] 02-28-2025 05:18-0400 Diastolic blood pressure 54 mm[Hg] Dr. Florin Bailey DO Work Phone: [facility] 02-28-2025 05:18-0400 Heart rate 80 /min Dr. Florin Bailey DO Work Phone: [facility] 02-28-2025 05:18-0400 Respiratory rate 16 /min Dr. Florin Bailey DO Work Phone: [facility] 02-28-2025 05:18-0400 SaO2% (BldA) [Mass fraction] 98 % Dr. Florin Bailey DO Work Phone: [facility] 02-28-2025 05:18-0400 Systolic blood pressure 105 mm[Hg] Dr. Florin Bailey DO Work Phone: [facility] 02-28-2025 02:08-0400 Body height 170.[address] Florin Bailey DO Work Phone: [facility] 02-28-2025 02:08-0400 Body mass index (BMI) [Ratio] 26.2 kg/m2 Dr. Florin Bailey DO Work Phone: [facility] 02-28-2025 02:08-0400 Body weight 75.[address] Florin Bailey DO Work Phone: [facility] 02-22-2025 08:09-0400 Heart rate 86 /min Dr. Florin Bailey DO Work Phone: [facility] 02-22-2025 08:02-0400 Body temperature 98.7 [degF] Dr. Florin Bailey DO Work Phone: [facility] 02-22-2025 08:02-0400 Diastolic blood pressure 47 mm[Hg] Dr. Florin Bailey DO Work Phone: [facility] 02-22-2025 08:02-0400 Respiratory rate 18 /min Dr. Florin Bailey DO Work Phone: [facility] 02-22-2025 08:02-0400 SaO2% (BldA) [Mass fraction] 96 % Dr. Florin Bailey DO Work Phone: [facility] 02-22-2025 08:02-0400 Systolic blood pressure 97 mm[Hg] Dr. Florin Bailey DO Work Phone: [facility] 02-21-2025 16:04-0400 Inhaled oxygen flow rate 2 L/min Dr. Florin Bailey DO Work Phone: [facility] 02-20-2025 14:09-0400 Body mass index (BMI) [Ratio] 24.3 kg/m2 Dr. Flroin Bailey DO Work Phone: [facility] 02-19-2025 16:34-0400 Body weight 70.[address] Florin Bailey DO Work Phone: [facility] 02-12-2025 10:43-0400 Body mass index (BMI) [Ratio] 24.7 kg/m2 Dr. Florin Bailey DO Work Phone: [facility] 02-12-2025 10:43-0400 Body height 170.[address] Florin Bailey DO Work Phone: [facility] 02-12-2025 10:43-0400 Body weight 71.[address] Florin Bailey DO Work Phone: [facility] 02-12-2025 10:06-0400 Diastolic blood pressure 76 mm[Hg] Dr. Florin Bailey DO Work Phone: [facility] 02-12-2025 10:06-0400 Heart rate 98 /min Dr. Florin Bailey DO Work Phone: [facility] 02-12-2025 10:06-0400 SaO2% (BldA) [Mass fraction] 99 % Dr. Florin Bailey DO Work Phone: [facility] 02-12-2025 10:06-0400 Systolic blood pressure 126 mm[Hg] Dr. Florin Bailey DO Work Phone: [facility] 02-07-2025 10:22-0400 Body mass index (BMI) [Ratio] 24.7 kg/m2 Dr. Florin Bailey DO Work Phone: [facility] 02-07-2025 10:22-0400 Body weight 71.[address] Florin Bailey DO Work Phone: [facility] 02-07-2025 10:22-0400 Diastolic blood pressure 76 mm[Hg] Dr. Florin Bailey DO Work Phone: [facility] 02-07-2025 10:22-0400 Heart rate 98 /min Dr. Florin Bailey DO Work Phone: [facility] 02-07-2025 10:22-0400 Respiratory rate 18 /min Dr. Florin Bailey DO Work Phone: [facility] 02-07-2025 10:22-0400 SaO2% (BldA) [Mass fraction] 99 % Dr. Florin Bailey DO Work Phone: [facility] 02-07-2025 10:22-0400 Systolic blood pressure 126 mm[Hg] Dr. Florin Bailey DO Work Phone: [facility] 02-06-2025 13:57-0400 Body temperature 97.8 [degF] Dr. Branden Akers MD Work Phone: [facility] 02-06-2025 13:57-0400 Diastolic blood pressure 74 mm[Hg] Dr. Branden Akers MD Work Phone: [facility] 02-06-2025 13:57-0400 Heart rate 76 /min Dr. Branden Akers MD Work Phone: [facility] 02-06-2025 13:57-0400 Respiratory rate 15 /min Dr. Branden Akers MD Work Phone: [facility] 02-06-2025 13:57-0400 SaO2% (BldA) [Mass fraction] 96 % Dr. Branden Akers MD Work Phone: [facility] 02-06-2025 13:57-0400 Systolic blood pressure 115 mm[Hg] Dr. Branden Akers MD Work Phone: [facility] 02-06-2025 08:57-0400 Body height 170.[address] Branden Akers MD Work Phone: [facility] 02-06-2025 08:57-0400 Body mass index (BMI) [Ratio] 24.7 kg/m2 Dr. Branden Akers MD Work Phone: [facility] 02-06-2025 08:57-0400 Body weight 71.[address] Branden Akers MD Work Phone: [facility] 02-05-2025 15:42-0400 Body temperature 97.9 [degF] Dr. Branden Akers MD Work Phone: [facility] 02-05-2025 15:42-0400 Diastolic blood pressure 64 mm[Hg] Dr. Branden Akers MD Work Phone: [facility] 02-05-2025 15:42-0400 Heart rate 72 /min Dr. Branden Akers MD Work Phone: [facility] 02-05-2025 15:42-0400 Respiratory rate 16 /min Dr. Branden Akers MD Work Phone: [facility] 02-05-2025 15:42-0400 SaO2% (BldA) [Mass fraction] 96 % Dr. Branden Akers MD Work Phone: [facility] 02-05-2025 15:42-0400 Systolic blood pressure 92 mm[Hg] Dr. Branden Akers MD Work Phone: [facility] 02-04-2025 15:31-0400 Body height 170.[address] Branden Akers MD Work Phone: [facility] 02-04-2025 15:31-0400 Body mass index (BMI) [Ratio] 25.3 kg/m2 Dr. Branden Akers MD Work Phone: [facility] 02-04-2025 15:31-0400 Body weight 73.[address] Branden Akers MD Work Phone: [facility] 02-04-2025 13:00-0400 Diastolic blood pressure 84 mm[Hg] Dr. Branden Akers MD Work Phone: [facility] 02-04-2025 13:00-0400 Heart rate 82 /min Dr. Branden Akers MD Work Phone: [facility] 02-04-2025 13:00-0400 SaO2% (BldA) [Mass fraction] 98 % Dr. Branden Akers MD Work Phone: [facility] 02-04-2025 13:00-0400 Systolic blood pressure 101 mm[Hg] Dr. Branden Akers MD Work Phone: [facility] 02-04-2025 12:59-0400 Body temperature 98 [degF] Dr. Branden Akers MD Work Phone: [facility] 02-04-2025 12:59-0400 Respiratory rate 13 /min Dr. Branden Akers MD Work Phone: [facility] 02-04-2025 10:27-0400 Body mass index (BMI) [Ratio] 25.4 kg/m2 Dr. Branden Akers MD Work Phone: [facility] 02-04-2025 10:27-0400 Body weight 73.[address] Branden Akers MD Work Phone: [facility] 01-23-2025 08:56-0400 Body height 170.[address] Branden Akers MD Work Phone: [facility] 01-23-2025 08:56-0400 Body mass index (BMI) [Ratio] 25.5 kg/m2 Dr. Branden Akers MD Work Phone: [facility] 01-23-2025 08:56-0400 Body weight 73.[address] Branden Akers MD Work Phone: [facility] 01-23-2025 08:56-0400 Diastolic blood pressure 77 mm[Hg] Dr. Branden Akers MD Work Phone: [facility] 01-23-2025 08:56-0400 Heart rate 85 /min Dr. Branden Akers MD Work Phone: [facility] 01-23-2025 08:56-0400 Respiratory rate 18 /min Dr. Branden Akers MD Work Phone: [facility] 01-23-2025 08:56-0400 SaO2% (BldA) [Mass fraction] 96 % Dr. Branden Akers MD Work Phone: [facility] 01-23-2025 08:56-0400 Systolic blood pressure 135 mm[Hg] Dr. Branden Akers MD Work Phone: [facility] 01-02-2025 05:04-0400 Body mass index (BMI) [Ratio] 25 kg/m2 Dr. Branden Akers MD Work Phone: [facility] 01-02-2025 05:04-0400 Body temperature 96.7 [degF] Dr. Branden Akers MD Work Phone: [facility] 01-02-2025 05:04-0400 Body weight 72.[address] Branden Akers MD Work Phone: [facility] 01-02-2025 05:04-0400 Diastolic blood pressure 70 mm[Hg] Dr. Branden Akers MD Work Phone: [facility] 01-02-2025 05:04-0400 Heart rate 71 /min Dr. Branden Akers MD Work Phone: [facility] 01-02-2025 05:04-0400 Respiratory rate 18 /min Dr. Branden Akers MD Work Phone: [facility] 01-02-2025 05:04-0400 SaO2% (BldA) [Mass fraction] 96 % Dr. Branden Akers MD Work Phone: [facility] 01-02-2025 05:04-0400 Systolic blood pressure 111 mm[Hg] Dr. Branden Akers MD Work Phone: [facility] 12-11-2024 11:56-0500 Diastolic blood pressure 70 mm[Hg] Dr. Branden Akers MD Work Phone: [facility] 12-11-2024 11:56-0500 Heart rate 68 /min Dr. Branden Akers MD Work Phone: [facility] 12-11-2024 11:56-0500 Respiratory rate 25 /min Dr. Branden Akers MD Work Phone: [facility] 12-11-2024 11:56-0500 SaO2% (BldA) [Mass fraction] 97 % Dr. Branden Akers MD Work Phone: [facility] 12-11-2024 11:56-0500 Systolic blood pressure 143 mm[Hg] Dr. Branden Akers MD Work Phone: [facility] 12-11-2024 09:59-0500 Body temperature 98.7 [degF] Dr. Branden Akers MD Work Phone: [facility] 12-11-2024 09:58-0500 Body height 170.[address] Branden Akers MD Work Phone: [facility] 12-11-2024 09:58-0500 Body mass index (BMI) [Ratio] 26.4 kg/m2 Dr. Branden Akers MD Work Phone: [facility] 12-11-2024 09:58-0500 Body weight 76.[address] Branden Akers MD Work Phone: [facility] 11-29-2024 09:23-0500 Body weight 75.[address] Branden Akers MD Work Phone: [facility] 10-31-2024 08:52-0500 Body mass index (BMI) [Ratio] 26.2 kg/m2 Dr. Branden Akers MD Work Phone: [facility] 10-31-2024 08:49-0500 Body weight 75.[address] Branden Akers MD Work Phone: [facility] 10-31-2024 08:24-0500 Diastolic blood pressure 52 mm[Hg] Dr. Branden Akers MD Work Phone: [facility] 10-31-2024 08:24-0500 Heart rate 64 /min Dr. Branden Akers MD Work Phone: [facility] 10-31-2024 08:24-0500 SaO2% (BldA) [Mass fraction] 97 % Dr. Branden Akers MD Work Phone: [facility] 10-31-2024 08:24-0500 Systolic blood pressure 94 mm[Hg] Dr. Branden Akers MD Work Phone: [facility] 10-26-2024 15:18-0500 Body mass index (BMI) [Ratio] 26.2 kg/m2 Dr. Branden Akers MD Work Phone: [facility] 10-26-2024 15:18-0500 Body weight 75.[address] Branden Akers MD Work Phone: [facility] 10-26-2024 15:18-0500 Diastolic blood pressure 77 mm[Hg] Dr. Branden Akers MD Work Phone: [facility] 10-26-2024 15:18-0500 Heart rate 68 /min Dr. Branden Akers MD Work Phone: [facility] 10-26-2024 15:18-0500 Respiratory rate 18 /min Dr. Branden Akers MD Work Phone: [facility] 10-26-2024 15:18-0500 SaO2% (BldA) [Mass fraction] 99 % Dr. Branden Akers MD Work Phone: [facility] 10-26-2024 15:18-0500 Systolic blood pressure 137 mm[Hg] Dr. Branden Akers MD Work Phone: [facility] 10-11-2024 08:43-0500 Heart rate 76 /min Dr. Branden Akers MD Work Phone: [facility] 10-11-2024 08:26-0500 Body temperature 97.5 [degF] Dr. Branden Akers MD Work Phone: [facility] 10-11-2024 08:26-0500 Diastolic blood pressure 64 mm[Hg] Dr. Branden Akers MD Work Phone: [facility] 10-11-2024 08:26-0500 Respiratory rate 18 /min Dr. Branden Akers MD Work Phone: [facility] 10-11-2024 08:26-0500 SaO2% (BldA) [Mass fraction] 96 % Dr. Branden Akers MD Work Phone: [facility] 10-11-2024 08:26-0500 Systolic blood pressure 111 mm[Hg] Dr. Branden Akers MD Work Phone: [facility] 10-11-2024 05:39-0500 Body mass index (BMI) [Ratio] 26.9 kg/m2 Dr. Branden Akers MD Work Phone: [facility] 10-11-2024 05:39-0500 Body weight 78.[address] Branden Akers MD Work Phone: [facility] Encounters Encounter Date Encounter Type Care Provider Facility Start: 05-03-2025 ambulatory Florin Bailey Facility: [facility] Start: 04-23-2025 End: 04-23-2025 Ivan Cotto DO [facility] Work Phone: Start: 04-23-2025 End: 04-23-[address] Florin Bailey DO Work Phone: -[facility] Start: 04-16-2025 End: 04-16-2025 ambulatory FLORIN BAILEY DO Facility:[facility] Start: 04-16-2025 End: 04-16-2025 Patient encounter procedure FLORIN BAILEY DO [facility] Start: 04-16-2025 End: 04-16-2025 Well adult monitoring check done FLORIN BAILEY DO [facility] Start: 04-09-2025 End: 04-09-2025 ambulatory FLORIN BAILEY DO [facility] Start: 04-09-2025 End: 04-09-2025 Patient encounter procedure FLORIN BAILEY DO [facility] Start: 04-05-2025 End: 04-05-2025 Dr. Deondre Leavitt MD -[facility] Work Phone: Start: 04-05-2025 End: 04-05-[address] Florin aBiley DO Work Phone: [facility] Work Phone: Start: 04-05-2025 End: 04-05-2025 ambulatory FLORIN BAILEY DO Facility[facility] Start: 04-05-2025 End: 04-05-2025 Patient encounter procedure FLORIN BAILEY DO [facility] Start: 03-30-2025 End: 03-30-2025 ambulatory FLORIN BAILEY DO [facility] Start: 03-30-2025 End: 03-30-2025 Patient encounter procedure FLORIN BAILEY DO [facility] Start: 03-25-2025 End: 04-22-2025 Dr. Adan Galindo MD -Cardiac Rehab Work Phone: Start: 03-25-2025 End: 04-22-[address] Florin Bailey DO Work Phone: -[facility] Start: 03-21-2025 End: 03-21-2025 Emergency department patient visit [facility] Start: 03-21-2025 End: 03-26-2025 Evaluation and management of inpatient FLORIN BAILEY [facility] Work Phone: Comment on above: Shortness of breath (Primary Dx); Melena; Small intestinal hemorrhage not requiring more than four units of blood in 24 hours, admission to ICU, or surgery; Coronary artery disease involving kasaan coronary artery, unspecified whether angina present, unspecified whether kasaan or transplanted heart; CAD in kasaan artery Start: 03-20-2025 End: 03-20-2025 Dr. Dax Álvarez MD -[facility] Work Phone: Start: 03-20-2025 End: 03-20-[address] Florin Bailey DO Work Phone: [facility] Work Phone: Start: 03-20-2025 Dr. Dax jesus MD -[facility] Start: 03-20-2025 ambulatory Florin Bailey Facility: [facility] Start: 03-18-2025 End: 03-18-2025 Dr. Florin Bailey DO Work Phone: -Emergency Department Work Phone: Start: 03-18-2025 End: 03-18-2025 Emergency department patient visit Dr. Florin Bailey DO Work Phone: [facility] Work Phone: Start: 03-11-2025 End: 03-11-[address] Florin Bailey DO Work Phone: [facility] Work Phone: Start: 03-11-2025 End: 03-11-2025 Ivan Cotto DO -Laboratory Work Phone: Start: 03-11-2025 End: 03-11-2025 ambulatory Florin Bailey Facility:[facility] Start: 03-08-2025 End: 03-08-2025 Ivan Cotto DO [facility] Work Phone: Start: 03-08-2025 End: 03-08-[address] Florin Bailey DO Work Phone: [facility] Work Phone: Start: 03-07-2025 End: 03-08-2025 ambulatory FLORIN BAILEY DO Facility:[facility] Start: 03-07-2025 End: 03-07-2025 Patient encounter procedure FLORIN BAILEY DO [facility] Start: 03-04-2025 Ivan Cotto DO [facility] Start: 03-04-2025 Dr. Clyde Long DO [facility] Work Phone: Start: 03-03-2025 Non-patient / Non-visit Dr. Clyde Long DO [facility] Work Phone: Start: 03-03-[address] Reid Bailey DO Work Phone: [facility] Work Phone: Start: 03-03-2025 ambulatory Florin Bailey Facility: [facility] Start: 03-03-2025 End: 03-04-2025 Evaluation and management of inpatient Dr. Clyde Long DO -Progressive Care Unit Work Phone: Start: 03-03-2025 End: 03-04-2025 Dr. [facility] Work Phone: Start: 02-28-2025 Patient encounter procedure Luz Mullen [facility] -Pulmonary Services/Neurology Work Phone: Start: 02-28-2025 End: 02-28-2025 Luz Mullen [facility] -Pulmonary Services/Neurology Work Phone: Start: 02-28-2025 End: 02-28-[address] Florin Bailey DO Work Phone: [facility] Work Phone: Start: 02-28-2025 End: 02-28-2025 Dr. Orlando Abdi MD -Emergency Department Work Phone: Start: 02-28-2025 End: 02-28-2025 Emergency department patient visit Dr. Florin Bailey DO Work Phone: -Emergency Department Work Phone: Start: 02-28-2025 End: 02-28-2025 ambulatory Florin Bailey Facility:[facility] Start: 02-26-2025 End: 02-26-2025 ambulatory FLORIN BAILEY DO Facility:[facility] Start: 02-26-2025 End: 02-26-2025 Patient encounter procedure FLORIN BAILEY DO [facility] Start: 02-26-2025 End: 02-26-2025 Well adult monitoring check done FLORIN BAILEY DO [facility] Start: 02-22-2025 Non-patient / Non-visit Dr. Josh Peñaloza MD -[facility] Work Phone: Start: 02-22-[address] Wilmar Galindo MD -Cardiac Rehab Work Phone: Start: 02-22-2025 End: 03-23-2025 Dr. Josh Peñaloza MD -[facility] Work Phone: Start: 02-22-2025 End: 03-23-[address] Florin Bailey DO Work Phone: [facility] Work Phone: Start: 02-21-2025 Non-patient / Non-visit Dr. Josh Peñaloza MD -[facility] Work Phone: Start: 02-21-2025 Dr. Josh Peñaloza MD -[facility] Work Phone: Start: 02-21-2025 Non-[facility] / [facility] Start: 02-21-2025 Ivan Friend DO -[facility] Start: 02-20-2025 Non-patient / Non-visit Ivan Friend DO -[facility] Start: 02-20-2025 Ivan Friend DO -[facility] Start: 02-20-2025 Non-patient / Non-visit Dr. Josh Peñaloza MD -[facility] Work Phone: Start: 02-20-2025 Dr. Josh Peñaloza MD -[facility] Work Phone: Start: 02-19-2025 Non-patient / Non-visit Ivan Friend DO -[facility] Start: 02-19-2025 Ivan Friend DO -[facility] Start: 02-19-2025 ambulatory [facility]: [facility] Start: 02-19-2025 Non-patient / Non-visit Dr. Adan Galindo MD [facility] Start: 02-19-2025 Dr. Adan Galindo MD [facility] Start: 02-19-2025 Non-patient / Non-visit Dr. Josh Peñaloza MD -[facility] Work Phone: Start: 02-19-2025 Dr. Josh Peñaloza MD -[facility] Work Phone: Start: 02-18-2025 Non-patient / Non-visit Ivan Friend DO -[facility] Start: 02-18-2025 Ivan Friend DO -[facility] Start: 02-18-2025 Non-patient / Non-visit Dr. Jakub Fischer MD [facility] Work Phone: Start: 02-18-2025 ambulatory [facility] Facility: [facility] Start: 02-18-2025 End: 02-22-2025 Evaluation and management of inpatient Dr. Josh Peñaloza MD -[facility] 3 Work Phone: Start: 02-18-2025 End: 02-22-2025 Dr. 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 Florin Bailey DO Work Phone: [facility] Work Phone: Start: 02-12-2025 End: 02-12-[address] Adan Galindo MD -Cardiac Rehab Work Phone: Start: 02-12-2025 End: 02-12-2025 Dr. Adan Galindo MD -Cardiac Rehab Work Phone: Start: 02-12-2025 End: 02-12-2025 ambulatory Florin Bailey Facility:[facility] Start: 02-07-2025 End: 02-07-2025 Patient encounter procedure Luz Mullen [facility] Work Phone: Start: 02-07-2025 End: 02-07-2025 Luz Mullen [facility] Work Phone: Start: 02-07-2025 End: 02-07-2025 ambulatory [facility] Facility:[facility] Start: 02-06-2025 Non-patient / Non-visit Dr. Adan Galindo MD -[facility] Start: 02-06-2025 Dr. Adan Galindo MD [facility] Start: 02-06-2025 ambulatory [facility] Facility: [facility] Start: 02-06-2025 End: 02-06-2025 Dr. Inderjit Gilmore DO -Emergency [facility] Work Phone: Start: 02-06-2025 End: 02-06-2025 Emergency department patient visit Dr. Branden Akers MD Work Phone: -Emergency Department Work Phone: Start: 02-05-2025 Non-patient / Non-visit Dr. Estrella Hanna MD [facility] Work Phone: Start: 02-05-2025 Dr. Estrella puga MD [facility] Work Phone: Start: 02-05-2025 Non-patient / Non-visit Dr. Deondre Leavitt MD -[facility] Start: 02-05-2025 Dr. Deondre callejas MD [facility] Start: 02-04-2025 Non-patient / Non-visit Dr. Deondre Leavitt MD -[facility] Start: 02-04-2025 ambulatory [facility] Start: 02-04-2025 End: 02-05-2025 Evaluation and management of inpatient Dr. Estrella Hanna MD -Progressive Care Unit Work Phone: Start: 02-04-2025 End: 02-05-2025 Dr. Estrella Hanna MD -Progressive Care Unit Work Phone: Start: 01-24-2025 End: 01-24-[address] Branden Akers MD Work Phone: [facility] Work Phone: Start: 01-24-2025 End: 01-24-[address] Roxanne Olivas MD -Cat Scan, [facility] Work Phone: Start: 01-24-2025 End: 01-24-2025 Dr. Roxanne Olivas MD -Cat Scan, [facility] Work Phone: Start: 01-23-2025 End: 01-23-2025 Patient encounter procedure Aung Franklin GUM COOK-C -[facility] Work Phone: Start: 01-23-2025 End: 01-23-2025 Aung Franklin GUM COOK-C -[facility] Work Phone: Start: 01-23-2025 End: 01-24-2025 ambulatory Florin Cameronins Facility:[facility] Start: 01-14-2025 End: 01-14-2025 ambulatory FLORIN BAILEY Facility:[facility] Start: 01-09-2025 End: 01-09-[address] Branden Akers MD Work Phone: [facility] Work Phone: Start: 01-09-2025 End: 01-09-2025 Patient encounter procedure GUM COOK Nohemy Banks -Sleep Lab Work Phone: Start: 01-09-2025 End: 01-09-2025 GUM COOK Nohemy Banks -Sleep Lab Work Phone: Start: 01-08-2025 End: 01-08-[address] Roxanne Olivas MD -Laboratory, Specimen Work Phone: Start: 01-08-2025 End: 01-09-[address] Branden Akers MD Work Phone: [facility] Work Phone: Start: 01-08-2025 Non-patient / Non-visit Dr. Trey Eduardo MD -[facility] Start: 01-08-2025 End: 01-08-2025 Dr. Trey Eduardo MD -[facility] Start: 01-08-2025 End: 01-08-2025 ambulatory Florin Bailey Facility:[facility] Start: 01-02-2025 End: 01-02-2025 Patient encounter procedure GUM COOK Nohemy Banks -[facility] Work Phone: Start: 01-02-2025 End: 01-02-2025 [employer] COOK Nohemy Banks -[facility] Work Phone: Start: 01-02-2025 End: 01-02-2025 ambulatory Florin Bailey Facility:[facility] Start: 01-01-2025 ambulatory Florin Bailey Facility: [facility] Start: 12-24-2024 End: 12-28-2024 ambulatory FLORIN E BAILEY DO Facility:[facility] Start: 12-13-2024 End: 12-13-2024 ambulatory FLORIN E BAILEY DO Facility:[facility] Start: 12-13-2024 End: 12-13-[address] TOM WILLIS DO [facility] Start: 12-11-2024 End: 12-11-2024 Dr. [facility] Start: 12-11-2024 End: 12-11-2024 Emergency department patient visit Dr. Jak Sheikh MD -Emergency Department Work Phone: Start: 12-05-2024 End: 12-09-2024 ambulatory FLORIN E BAILEY DO Facility:[facility] Start: 12-05-2024 End: 12-09-2024 Outreach Lab MATTIE CARPIO APRN-GAMBLING FLOOR SUPERVISOR [facility] Start: 12-03-2024 End: 12-21-2024 ambulatory Adan Galindo Facility:[facility] Start: 12-03-2024 End: 12-21-[address] Adan Galindo MD -Cardiac Rehab Work Phone: Start: 12-03-2024 End: 12-21-2024 Dr. Adan Galindo MD -Cardiac Rehab Work Phone: Start: 11-23-2024 End: 11-23-2024 ambulatory [facility] Facility:[facility] Start: 11-23-2024 End: 11-23-[address] Adan Galindo MD -Cardiac Rehab Work Phone: Start: 11-23-2024 End: 11-23-2024 Dr. Adan Galindo MD -Cardiac Rehab Work Phone: Start: 11-07-2024 End: 11-07-2024 Patient encounter procedure Aung Franklin NP-Shruthi -Sleep Lab Work Phone: Start: 11-07-2024 End: 11-07-2024 Aung Franklin NP-Shruthi -Sleep Lab Work Phone: Start: 11-07-2024 End: 11-07-2024 ambulatory [facility] Facility:[facility] Start: 11-03-2024 End: 11-07-[address] [facility] BAILEY DO Facility:[facility] Start: 11-03-2024 End: 11-07-2024 Outreach Lab BOLA ALEXANDERY DO [facility] Start: 10-31-2024 End: 10-31-[address] Adan Galindo MD -Cardiac Rehab Work Phone: Start: 10-31-2024 End: 10-31-2024 ambulatory [facility] Facility:[facility] Start: 10-26-2024 End: 10-26-2024 Patient encounter procedure Aung Franklin NP-Shruthi -[facility] Work Phone: Start: 10-26-2024 End: 10-26-2024 ambulatory [facility] Facility:[facility] Start: 10-11-2024 Non-patient / Non-visit Dr. Kraig Feliz [facility] Work Phone: Start: 10-11-2024 Non-patient / Non-visit Dr. Alfredito Saucedo MD -[facility] Start: 10-10-2024 Non-patient / Non-visit Dr. Kraig Feliz [facility] Work Phone: Start: 10-10-2024 ambulatory [facility] Facility: [facility] Start: 10-10-2024 Non-patient / Non-visit Dr. Alfredito Saucedo MD [facility] Start: 10-09-2024 ambulatory [facility] Facility: [facility] Start: 10-09-2024 End: 10-11-2024 Evaluation and management of inpatient Dr. Kraig Feliz DO -Intensive Care Unit Work Phone: Start: 10-09-2024 Non-patient / Non-visit Dr. Adan Galindo MD -[facility] Start: 10-09-2024 ambulatory Tawanna Redfield Facility:[facility] Start: 08-02-2024 End: 08-02-2024 ambulatory Branden Akers Facility:[facility] Start: 12-04-2021 End: 12-04-2021 Patient encounter procedure BRANDEN AKERS MD [facility] Procedures Date Procedure Procedure Detail Performing Clinician Start: 03-26-2025 Renal function panel Deondre Newell DO Work Phone: Start: 03-25-2025 Blood typing serologic rh (d) Christine houston MD Work Phone: Start: 03-25-2025 Endoscopy upper small intestine Meir spring MD Work Phone: Start: 03-25-2025 Renal function panel Deondre Newell DO Work Phone: Start: 03-24-2025 Renal function panel Deondre Newell DO Work Phone: Start: 03-23-2025 Blood count complete auto&auto difrntl wbc Laurie Arceo MD Work Phone: Start: 03-23-2025 Renal function panel Deondre Newell DO Work Phone: Start: 03-22-2025 Blood count complete auto&auto difrntl wbc Kena Asencio MD Work Phone: Start: 03-22-2025 End: 03-22-2025 TRANSFUSE RED BLOOD CELLS Deondre carias DO Work Phone: Start: 03-22-2025 Renal function panel Chucho Wilson MD Work Phone: Start: 03-21-2025 Ecg routine ecg w/least 12 lds trcg only w/o i&r Chucho Wilson MD Work Phone: Start: 03-21-2025 Ecg routine ecg w/least 12 lds trcg only w/o i&r Chucho Wilson MD Work Phone: Start: 03-21-2025 Natriuretic peptide Keanu Agee MD Work Phone: Start: 03-21-2025 Radiologic exam chest single view Nohemy Palumbo DO Work Phone: Start: 03-21-2025 PREPARE RBC Keanu Agee MD Work Phone: Start: 03-21-2025 VERAB/VERIFY ABORH Hilary Daugherty MD Work Phone: Start: 03-21-2025 Blood type and Indirect antibody screen panel - Blood Hilary Daugherty MD Work Phone: Start: 03-21-2025 Blood typing serologic rh (d) Hilary stevenson MD Work Phone: Start: 03-21-2025 Comprehensive metabolic panel Marquita reyes MD Work Phone: Start: 03-20-2025 Albumin/Globulin ratio Dr. Florin Bailey DO Work Phone: Start: 03-20-2025 Blood count smear mcrscp w/mnl difrntl wbc count Dr. Florin Bailey DO Work Phone: Start: 03-20-2025 Folic acid measurement, RBC Dr. Florin tobin DO Work Phone: Start: 03-20-[address] Florin Bailey DO Work Phone: Start: 03-20-[address] M measurement Dr. Florin castro DO Work Phone: Start: 03-20-2025 Mean corpuscular hemoglobin concentration determination Dr. Florin Bailey DO Work Phone: Start: 03-20-[address] Florin jimenez DO Work Phone: Start: 03-20-2025 Nucleated red blood cell count procedure Dr. Florin Bailey DO Work Phone: Start: 03-20-2025 Platelet mean volume determination Dr. Tigre Bailey DO Work Phone: Start: 03-20-2025 Total iron binding capacity measurement Dr. Florin Bailey DO Work Phone: Start: 03-20-2025 Urine lambda light chain measurement Dr. Florin Bailey DO Work Phone: Start: 03-18-2025 Blood count smear mcrscp w/mnl difrntl wbc count Dr. Florin Bailey DO Work Phone: Start: 03-18-[address] Florin Bailey DO Work Phone: Start: 03-18-2025 Mean corpuscular hemoglobin concentration determination Dr. Florin Bailey DO Work Phone: Start: 03-18-2025 Nucleated red blood cell count procedure Dr. Florin Bailey DO Work Phone: Start: 03-18-2025 Platelet mean volume determination Dr. Tigre Bailey DO Work Phone: Start: 03-18-[address] Tigre Bailey DO Work Phone: Start: 03-11-2025 Blood count smear mcrscp w/mnl difrntl wbc count Dr. Florin Bailey DO Work Phone: Start: 03-11-2025 Mean corpuscular hemoglobin concentration determination Dr. Florin Bailey DO Work Phone: Start: 03-11-2025 Nucleated red blood cell count procedure Dr. Florin Bailey DO Work Phone: Start: 03-11-2025 Platelet mean volume determination Dr. Tigre Bailey DO Work Phone: Start: 03-08-2025 Blood count smear mcrscp w/mnl difrntl wbc count Dr. Florin Bailey DO Work Phone: Start: 03-08-2025 Endomysial antibody IgA level Dr. Florin Bailey DO Work Phone: Start: 03-08-2025 Mean corpuscular hemoglobin concentration determination Dr. Florin Bailey DO Work Phone: Start: 03-08-2025 Nucleated red blood cell count procedure Dr. Florin Bailey DO Work Phone: Start: 03-08-2025 Platelet mean volume determination Dr. Tigre Bailey DO Work Phone: Start: 03-04-[address] Florin Bailey DO Work Phone: Start: 03-04-2025 Blood count smear mcrscp w/mnl difrntl wbc count Dr. Florin Bailey DO Work Phone: Start: 03-04-[address] Florin Bailey DO Work Phone: Start: 03-04-2025 Mean corpuscular hemoglobin concentration determination Dr. Florin Bailey DO Work Phone: Start: 03-04-2025 Nucleated red blood cell count procedure Dr. Florin Bailey DO Work Phone: Start: 03-04-2025 Platelet mean volume determination Dr. Tigre Bailey DO Work Phone: Start: 03-04-2025 Total iron binding capacity measurement Dr. Florin Bailey DO Work Phone: Start: 03-03-2025 Measurement of occult blood in stool specimen using immunoassay Dr. Florin Bailey DO Work Phone: Start: 03-03-2025 Carbon dioxide measurement, partial pressure Dr. Florin Bailey DO Work Phone: Start: 03-03-2025 Gases blood o2 saturation only direct rosalina Dr. Florin Bailey DO Work Phone: Start: 03-03-2025 Measurement of partial pressure of oxygen in blood Dr. Florin Bailey DO Work Phone: Start: 03-03-2025 Plain chest X-ray Dr. Florin Bailey DO Work Phone: Start: 03-03-2025 Calculation of international normalized ratio Dr. Florin Bailey DO Work Phone: Start: 03-03-2025 D-dimer assay, quantitative Dr. Florin tobin DO Work Phone: Comment on above: D-Dimer ELEVATED (>0.49): Additional tulio dies and clinicalassessments are indicated to conclude diagnosis of:Deep Vein Thrombosis (DVT) or Pulmonary Embolism (PE)CRITICAL VALUE CALLED TO [id number]/11/25 [id number] Jhonny Rogers.RESULTS READ BACK BY SAME. Start: 03-03-[address] Florin Bailey DO Work Phone: Start: 03-03-[address] Tigre Bailey DO Work Phone: Start: 02-28-2025 Plain chest X-ray Dr. Florin Bailey DO Work Phone: Start: 02-28-2025 Blood count smear mcrscp w/mnl difrntl wbc count Dr. Florin Bailey DO Work Phone: Start: 02-28-[address] Florin Bailey DO Work Phone: Start: 02-28-2025 Mean corpuscular hemoglobin concentration determination Dr. Florin Bailey DO Work Phone: Start: 02-28-2025 Nucleated red blood cell count procedure Dr. Florin Baiely DO Work Phone: Start: 02-28-2025 Platelet mean volume determination Dr. Tigre Bailey DO Work Phone: Start: 02-22-2025 Blood count smear mcrscp w/mnl difrntl wbc count Dr. Florin Bailey DO Work Phone: Start: 02-22-[address] Florin Bailey DO Work Phone: Start: 02-22-2025 Mean corpuscular hemoglobin concentration determination Dr. Florin Bailey DO Work Phone: Start: 02-22-2025 Nucleated red blood cell count procedure Dr. Florin Bailey DO Work Phone: Start: 02-22-2025 Platelet mean volume determination Dr. Tigre Bailey DO Work Phone: Start: 02-21-2025 End: 02-21-[address] Florin Bailey DO Work Phone: Start: 02-20-[address] Florin Bailey DO Work Phone: Start: 02-20-2025 Serum inorganic phosphate measurement Dr. Florin Bailey DO Work Phone: Start: 02-19-[address] Florin jimenez DO Work Phone: Start: 02-06-2025 Urine microscopy: red cells Dr. Florin tobin DO Work Phone: Start: 02-06-2025 Urnls dip stick/tablet reagent auto microscopy Dr. Florin Bailey DO Work Phone: Start: 02-06-2025 CT angiography of chest with contrast Dr. Branden Akers MD Work Phone: Start: 02-06-2025 Blood count smear mcrscp w/mnl difrntl wbc count Dr. Florin Bailey DO Work Phone: Start: 02-06-[address] Florin Bailey DO Work Phone: Start: 02-06-2025 Mean corpuscular hemoglobin concentration determination Dr. Florin Bailey DO Work Phone: Start: 02-06-2025 Nucleated red blood cell count procedure Dr. Florin Bailey DO Work Phone: Start: 02-06-2025 Platelet mean volume determination Dr. Tigre Bailey DO Work Phone: Start: 02-06-[address] Tigre Bailey DO Work Phone: Start: 02-06-2025 Plain chest X-ray Dr. Branden Akers MD Work Phone: Start: 02-05-[address] Florin Bailey DO Work Phone: Start: 02-05-2025 Mean corpuscular hemoglobin concentration determination Dr. Florin Bailey DO Work Phone: Start: 02-05-2025 Platelet mean volume determination Dr. Tigre Bailey DO Work Phone: Start: 02-04-2025 History of placement of stent for coronary artery disease History of coronary artery stent placement Dr. Kraig Feliz DO Comment on above: 2.75 x 18 mm ANTONIA FRONTIER FREDDIE to pLAD; PTCA alone to pD1 10/09/2024;[place] MR FREDDIE 2.5 x 40 mm to mLCx, PTCA alone to D1 02/04/2025 Start: 02-04-2025 Calculation of international normalized ratio Dr. Florin Bailey DO Work Phone: Start: 02-04-2025 Plain chest X-ray Dr. Branden Akers MD Work Phone: Start: 02-04-2025 Blood count smear mcrscp w/mnl difrntl wbc count Dr. Florin Bailey DO Work Phone: Start: 02-04-2025 Nucleated red blood cell count procedure Dr. Florin Bailey DO Work Phone: Start: 01-24-2025 Computed tomography of abdomen and pelvis with contrast Dr. Branden Akers MD Work Phone: Start: 12-11-2024 X-ray of chest, PA and lateral views Dr. Branden Akers MD Work Phone: Start: 12-11-[address] Florin Bailey DO Work Phone: Start: 12-11-2024 Blood count smear mcrscp w/mnl difrntl wbc count Dr. Florin Bailey DO Work Phone: Start: 12-11-2024 BUN/Creatinine ratio Dr. Florin Bailey DO Work Phone: Start: 12-11-[address] Florin Bailey DO Work Phone: Start: 12-11-2024 Mean corpuscular hemoglobin concentration determination Dr. Florin Bailey DO Work Phone: Start: 12-11-2024 Measurement of renal function Dr. Florin Bailey DO Work Phone: Comment on above: GFR Calc Start: 12-11-2024 Nucleated red blood cell count procedure Dr. Florin Bailey DO Work Phone: Start: 12-11-2024 Platelet mean volume determination Dr. Tigre Bailey DO Work Phone: Start: 12-11-[address] Florin gant DO Work Phone: Start: 10-09-2024 History of placement of stent for coronary artery disease History of coronary artery stent placement Dr. Kraig Feliz DO Comment on above: 2.75 x 18 mm ANTONIA FRONTIER FREDDIE to pLAD; PTCA alone to pD1 10/09/2024; Plan of Treatment Date Care Activity Detail Author Start: 02-21-2035 Screening for malign ant neoplasm of colon [facility] Start: 06-24-2025 Influenza vaccination Influenz a Vaccine (Season Ended) [facility] Start: 03-20-2025 Folic acid measureme nt, RBC [facility] Start: 03-20-2025 Haptoglobin [Mass/vo lume] in Serum or Plasma [facility] Start: 03-20-2025 Serum immunofixation [facility] Start: 03-20-2025 End: 03-20-2025 [facility] Start: 03-18-2025 [facility] Start: 03-18-2025 Administration of bl ood product [facility] Start: 03-08-2025 Basic metabolic 2008 panel with ionized calcium - Serum or Plasma [facility] Start: 03-08-2025 CBC W Auto Different ial panel - Blood [facility] Start: 03-08-2025 Celiac disease screen [facility] Start: 03-08-2025 Transferrin [Mass/vo lume] in Serum or Plasma [facility] Start: 03-04-2025 Patient discharge [facility] Start: 03-04-2025 Laboratory test [facility] Start: 03-04-2025 End: 03-04-2025 Administration of blood product [facility] Start: 03-04-2025 Leukocyte reduced re d blood cells [facility] Start: 03-04-2025 [facility] Start: 03-03-2025 [facility] Start: 03-03-2025 [facility] Start: 03-03-2025 Application of intermittent pneumatic compression device [facility] Start: 03-03-2025 Following clinical p athway protocol [facility] Start: 03-03-2025 Referral to gastroenterology service [facility] Start: 03-03-2025 [facility] Start: 03-03-2025 Verification routine [facility] Start: 03-03-2025 Admission procedure [facility] Start: 03-03-2025 Administration of bl ood product [facility] Start: 03-03-2025 [facility] Start: 03-03-2025 Inhalation therapy procedure [facility] Start: 03-03-2025 Patient referral to dietitian [facility] Start: 02-28-2025 Emergency department visit moderate severity [facility] Start: 02-28-2025 [facility] Start: 02-28-2025 [facility] Start: 02-22-2025 Patient discharge [facility] Start: 02-19-2025 [facility] Start: 02-18-2025 Application of intermittent pneumatic compression device [facility] Start: 02-18-2025 Ambulation without limitation [facility] Start: 02-18-2025 Assessment of risk o f venous thromboembolism [facility] Start: 02-18-2025 Insertion of cathete r into peripheral vein [facility] Start: 02-18-2025 Providing care accor ding to standard [facility] Start: 02-18-2025 Referral to gastroenterology service [facility] Start: 02-18-2025 [facility] Start: 02-18-2025 Following clinical p athway protocol [facility] Start: 02-18-2025 Admission procedure [facility] Start: 02-18-2025 Patient referral to dietitian [facility] Start: 02-06-2025 Patient referral [facility] Work Phone: Start: 02-06-2025 [facility] Start: 02-06-2025 Consultation [facility] Start: 02-06-2025 [facility] Start: 02-05-2025 Patient discharge [facility] Start: 02-04-2025 Following clinical p athway protocol [facility] Start: 02-04-2025 Cardiac monitoring [facility] Start: 02-04-2025 Cardiac rehabilitati on - phase 1 [facility] Start: 02-04-2025 Cardiac rehabilitati on - phase 2 [facility] Start: 02-04-2025 Notification of physician [facility] Start: 02-04-2025 Oxygen therapy [facility] Start: 02-04-2025 Patient discharge [facility] Start: 02-04-2025 Systemic arterial pr essure monitoring [facility] Start: 02-04-2025 Taking patient vital signs [facility] Start: 02-04-2025 Vascular disease ris k assessment [facility] Start: 02-04-2025 Vital signs measurements [facility] Start: 02-04-2025 [facility] Start: 02-04-2025 End: 02-04-2025 [facility] Start: 02-04-2025 Hospital admission, emergency, from emergency room, medical nature [facility] Start: 02-04-2025 Admission procedure [facility] Start: 12-11-2024 [facility] Start: 12-11-2024 [facility] Start: 10-11-2024 Patient discharge [facility] Start: 10-10-2024 Patient referral [facility] Work Phone: Start: 10-09-2024 Oxygen therapy [facility] Start: 10-09-2024 Referral to rail car unloader [facility] Start: 10-09-2024 Tobacco use cessatio n education [facility] Start: 10-09-2024 Admission procedure [facility] Start: 10-09-2024 Assessment of risk o f venous thromboembolism [facility] Start: 10-09-2024 Continuous pulse oximetry [facility] Start: 10-09-2024 Insertion of cathete r into peripheral vein [facility] Start: 10-09-2024 Measuring intake and output [facility] Start: 10-09-2024 Providing care accor ding to standard [facility] Start: 10-09-2024 Cardiac monitoring [facility] Start: 10-09-2024 Cardiac rehabilitati on - phase 1 [facility] Start: 10-09-2024 Cardiac rehabilitati on - phase 2 [facility] Start: 10-09-2024 End: 10-09-2024 Notification of physician [facility] Start: 10-09-2024 Patient discharge [facility] Start: 10-09-2024 Systemic arterial pr essure monitoring [facility] Start: 10-09-2024 Vascular disease ris k assessment [facility] Start: 10-09-2024 Vital signs measurements [facility] Start: 10-09-2024 End: 10-09-2024 [facility] Start: 10-09-2024 Patient education [facility] Start: 10-09-2024 Provision of activit y privileges [facility] Start: 10-09-2024 Pulse taking [facility] Start: 10-09-2024 End: 10-09-2024 Taking patient vital signs [facility] Start: 10-09-2024 Wound care [facility] Start: 06-24-2024 COVID-19 Vaccine ( season) COVID-19 Vaccine ( season) [facility] Start: 02-16-2023 DTaP/Tdap/Td Vaccine s (2 - Td or Tdap) DTaP/Tdap/Td Vaccines (2 - Td or Tdap) [facility] Start: 2018 RSV High Risk: (Elde rly (60+) or Population) (1 - Risk 60-74 years 1-dose series) RSV High Risk: (Elderly (60+) or Population) (1 - Risk 60-74 years 1-dose series) [facility] Start: 05-01-2015 Pneumococcal vaccination Pneum ococcal Vaccine (2 of 2 - PCV) [facility] Start: 2008 Zoster Vaccines (1 of 2) Zoste r Vaccines (1 of 2) [facility] Start: 1998 Screening for malign ant neoplasm of breast Mammogram [facility] Start: 1976 Diabetes mellitus screening Diabetes Screening [facility] Start: 1976 Hepatitis C screening Hepatitis C Sc [facility] Start: 1959 MMR Vaccines (1 of 1 - Standard series) MMR Vaccines (1 of 1 - Standard series) [facility] Start: 1960 Annual wellness visit Welcome to Medicare Visit [facility] Start: 1960 Lipid panel Lipid Panel [facility] Start: 1960 Screening for malign ant neoplasm of colon [facility] Start: 1960 Screening for osteoporosis Bone Dens ity Scan [facility] Albumin [Moles/volum e] in Serum or Plasma [facility] Albumin/Globulin ratio [facility] Ambulatory ECG [facility] Anion gap in Serum o r Plasma [facility] Anion gap in Serum o r Plasma [facility] Bilirubin measuremen t, urine [facility] Blood type and Indir ect antibody screen panel - Blood Type and Screen Lab Timed Every 72 hours (Lab) until discontinued starting 03/25/2025, 1 completed [facility] Work Phone: Comment on above: Every 72 hours (Lab) until discontinued starting 03/25/2025, 1 completed Blood type and Indir ect antibody screen panel - Blood Type And Screen Lab STAT 03/21/2025 2:37 PM EDT [facility] Service Area Work Phone: BUN/Creatinine ratio [facility] BUN/Creatinine ratio [facility] Calcium [Mass/volume ] in Serum or Plasma [facility] Calcium [Mass/volume ] in Serum or Plasma [facility] Capsule Endoscopy Sm all Intestine Capsule Endoscopy Small Intestine GI Routine Once as needed for 1 Occurrences starting 03/22/2025 [facility] Work Phone: Comment on above: Once as needed for 1 Occurrences starting 03/22/2025 Carbon dioxide, tota l [Moles/volume] in Central venous blood [facility] Carbon dioxide, tota l [Moles/volume] in Central venous blood [facility] CBC W Auto Different ial panel - Blood [facility] CBC W Auto Different ial panel - Blood CBC and Auto Differential Lab Routine Morning draw (Lab) until discontinued starting 03/23/2025, 4 completed [facility] Work Phone: Comment on above: Morning draw (Lab) u ntil discontinued starting 03/23/2025, 4 completed Celiac disease screen [facility] Comprehensive metabo lic 2000 panel - Serum or Plasma [facility] Creatinine [Mass/vol ume] in Serum or Plasma [facility] Creatinine [Mass/vol ume] in Serum or Plasma [facility] CT Chest [facility] CT Chest [facility] Electrocardiogram, 1 2-lead PRN ACS symptoms Electrocardiogram, 12-lead PRN ACS symptoms ECG Routine As needed until discontinued starting 03/21/2025, 1 completed [facility] Work Phone: Comment on above: As needed until disc ontinued starting 03/21/2025, 1 completed Electrophoresis: [id number] [facility] Electrophoresis: martha ma globulin [facility] Erythrocyte mean corpuscular volume determination [facility] Erythrocyte mean corpuscular volume determination [facility] Ferritin [Mass/volum e] in Serum or Plasma [facility] Ferritin [Mass/volum e] in Serum or Plasma [facility] Gliadin peptide IgA Ab [Units/volume] in Serum [facility] Gliadin peptide IgG Ab [Units/volume] in Serum [facility] Globulin measurement [facility] Glucose [Mass/volume ] in Serum or Plasma [facility] Glucose [Mass/volume ] in Serum or Plasma [facility] Haptoglobin [Mass/vo lume] in Serum or Plasma [facility] Hematocrit [Volume Fraction] of Blood [facility] Hematocrit [Volume Fraction] of Blood [facility] Hematocrit [Volume Fraction] of Blood [facility] Hematocrit [Volume Fraction] of Blood [facility] Hematocrit [Volume Fraction] of Blood [facility] Hematocrit [Volume Fraction] of Blood [facility] Hematocrit [Volume Fraction] of Blood [facility] Hemoglobin [Mass/vol ume] in Blood [facility] Hemoglobin [Mass/vol ume] in Blood [facility] Hemoglobin [Mass/vol ume] in Blood [facility] Hemoglobin [Mass/vol ume] in Blood [facility] Hemoglobin [Mass/vol ume] in Blood [facility] Hemoglobin [Mass/vol ume] in Blood [facility] Hemoglobin [Presence ] in Urine [facility] IgA [Mass/volume] in Serum or Plasma [facility] IgA [Mass/volume] in Serum or Plasma [facility] IgG [Mass/volume] in Serum or Plasma [facility] IgM [Mass/volume] in Serum or Plasma [facility] Iron [Mass/mass] in Unspecified specimen [facility] Iron and Iron bindin g capacity panel - Serum or Plasma [facility] Cedar/lambda light c starr ratio [facility] Laboratory data interpretation [facility] Lactate dehydrogenas e measurement [facility] Lambda light chains. free [Mass/volume] in Serum or Plasma [facility] Leukocytes [#/volume ] in Blood [facility] Leukocytes [#/volume ] in Blood [facility] Magnesium [Mass/volu me] in Serum or Plasma Magnesium Lab Routine Morning draw (Lab) until discontinued starting 03/23/2025, 4 completed [facility] Work Phone: Comment on above: Morning draw (Lab) u ntil discontinued starting 03/23/2025, 4 completed Mean corpuscular hemoglobin concentration determination [facility] Mean corpuscular hemoglobin concentration determination [facility] Mean corpuscular hemoglobin determination [facility] Mean corpuscular hemoglobin determination [facility] Measurement of immunoglobulin A in serum specimen [facility] Measurement of keton es in urine using dipstick [facility] Measurement of renal function [facility] Measurement of renal function [facility] Microscopic urinalysis [facility] Neutrophil count [facility] Neutrophil count [facility] Neutrophil percent differential count [facility] Neutrophil percent differential count [facility] Organism count, microscopic method [facility] Patient Education [facility] Work Phone: Patient referral [facility] Work Phone: pH of Urine [facility] Platelets [#/volume] in Blood [facility] Platelets [#/volume] in Blood [facility] Potassium measurement [facility] Potassium measurement [facility] End: 03-22-2025 Prepare RBC: 2 Units Prepare RBC: 2 Units Blood Bank STAT Once for 1 Occurrences starting 03/22/2025 until 03/22/2025 [facility] Work Phone: Comment on above: Once for 1 Occurrenc es starting 03/22/2025 until 03/22/2025 Protein electrophore sis panel - Serum or Plasma [facility] Red blood cell count [facility] Red blood cell count [facility] Red cell distributio n width determination [facility] Red cell distributio n width determination [facility] Renal function 2000 panel - Serum or Plasma Renal function panel Lab Routine Morning draw (Lab) until discontinued starting 03/23/2025, 4 completed [facility] Work Phone: Comment on above: Morning draw (Lab) u ntil discontinued starting 03/23/2025, 4 completed Reticulocyte count [facility] Serum chloride measurement [facility] Serum chloride measurement [facility] Serum immunofixation [facility] Sodium measurement [facility] Sodium measurement [facility] Specific gravity of Urine [facility] Tissue transglutamin ase IgA Ab [Units/volume] in Serum [facility] Tissue transglutamin ase IgA Ab [Units/volume] in Serum [facility] Transferrin [Mass/vo lume] in Serum or Plasma [facility] Troponin T.cardiac [Mass/volume] in Serum or Plasma by High sensitivity method [facility] Urea nitrogen [Mass/volume] in Serum or Plasma [facility] Urea nitrogen [Mass/volume] in Serum or Plasma [facility] Urine dipstick for glucose [facility] Urine dipstick for leukocyte esterase [facility] Urine dipstick for nitrite [facility] Urine dipstick for protein [facility] Urine examination [facility] Urine kappa light ch ain measurement [facility] Urine microscopy: epithelial cells [facility] Urine microscopy: re d cells [facility] Urobilinogen [Presen ce] in Urine [facility] End: 03-21-2025 US Guided IV Insertion US Guided IV Insertion Procedures Routine Once for 1 Occurrences starting 03/21/2025 until 03/21/2025 [facility] Service Area Work Phone: Comment on above: Once for 1 Occurrenc es starting 03/21/2025 until 03/21/2025 US Heart [facility] White blood cell count [facility] Immunizations Immunization Date Immunization Notes Care Provider Raul cabrera 10-01-2021 COVID-19, mRNA, LNP- S, PF, 30 mcg/0.3 mL dose; Translations: [[employer]-BioNTPage Mage COVID-19 Vaccine] BRANDEN AKERS MD [facility] 01-27-2021 SARS-CoV-2 mRNA (tozinameran) vaccine BRANDEN AKERS MD [facility] 01-06-2021 SARS-CoV-2 mRNA (tozinameran) vaccine BRANDEN AKERS MD [facility] Comment on above: Result Comment: 2020: [id number] 08-28-2020 influenza, injectabl e, quadrivalent, preservative free; Translations: [Fluarix PF Quadrivalent ] BRANDEN AKERS MD [facility] 08-28-2020 influenza virus vacc ine, unspecified formulation Nohemy Palumbo Work Phone: [facility] Work Phone: 08-22-2019 influenza virus vacc ine, unspecified formulation BRANDEN AKERS MD [facility] 08-18-2015 influenza virus vacc ine, unspecified formulation BRANDEN AKERS MD [facility] 05-01-2014 pneumococcal polysaccharide vaccine, 23 valent BRANDEN AKERS MD [facility] 02-16-2013 tetanus toxoid, redu guevara diphtheria toxoid, and acellular pertussis vaccine, adsorbed BRANDEN AKERS MD [facility] 1960 influenza virus vacc ine, unspecified formulation BRANDEN AKERS MD [facility] Payers Date Payer Category Payer Private Health Insurance def [id number] 2024 Unknown [id number] 2024 Medicare (Managed Care) [facility] MEDICARE [id number] 2024 Medicare [id number] 2024 Self-pay [id number] 2023 Unknown [id number] 1960 Unknown [id number] 2.16.840.1.258943.3.579.2. 1244 1958 Unknown [id number] 2.16840.1.150340.3.579.2. 1244 1958 Unknown [id number] 2.16840.1.713605.3.579.2. 1958 Unknown [id number] 2.16840.1.337943.3.579.2. 1958 Unknown [id number] 2.16.840.1.218261.3.579.2. 1958 Unknown [id number] 2.16840.1.611757.3.579.2. 1958 Unknown [id number] 2.16840.1.475093.3.579.2. 1958 Unknown [id number] 2.16840.1.162515.3.579.2. 1958 Unknown [id number] 2.16.840.1.181913.3.579.2. 1958 Unknown [id number] 2.16.840.1.335176.3.579.2. 1958 Unknown [id number] 2.16.840.1.248689.3.579.2. 1958 Unknown [id number] 2.16.840.1.027507.3.579.2. 627 1958 Unknown [id number] 2..840.1.651160.3.579.2. 62 1958 Unknown [id number] 2..840.1.781034.3.579.2. 1958 Unknown [id number] 2.840.1.914303.3.579.2. 1958 Unknown [id number] 2.840.1.408145.3.579.2. 1958 Unknown [id number] 2.840.1.472502.3.579.2. 62 Unknown [id number] Unknown [id number] 2.840.1.045117.3.579.2. 462 Unknown [id number] 2.840.1.600380.3.579.2. 462 Unknown [id number] 2.840.1.510308.3.579.2. 462 Unknown [id number] 2.840.1.860384.3.579.2. 462 Unknown [id number] 2.840.1.644925.3.579.2. 462 Unknown [id number] 2.840.1.815368.3.579.2. 462 Unknown [id number] 2.16840.1.549872.3.579.2. 462 Unknown [id number] 2.16.840.1.978573.3.579.2. 462 Unknown [id number] 2.16840.1.615320.3.579.2. 462 Unknown [id number] 2.16840.1.124564.3.579.2. 462 Unknown [id number] 2.16840.1.973256.3.579.2. 462 Unknown [id number] 2.16.840.1.697241.3.579.2. 462 Unknown [id number] 2.16.840.1.218646.3.579.2. 462 Unknown [id number] 2.16.840.1.037355.3.579.2. 462 Unknown [id number] 2.16840.1.638698.3.579.2. 462 Unknown [id number] 2.16840.1.693553.3.579.2. 462 Unknown [id number] 2.840.1.625247.3.579.2. 462 Unknown [id number] 2.840.1.340561.3.579.2. 462 Unknown [id number] 2.840.1.578503.3.579.2. 462 Unknown [id number] 2.840.1.444037.3.579.2. 462 Unknown [id number] 2.840.1.413312.3.579.2. 462 Unknown [id number] 2.840.1.642596.3.579.2. 462 Unknown [id number] 2.16840.1.784950.3.579.2. 462 Unknown [id number] 2.840.1.740741.3.579.2. 462 Unknown [id number] 2.16840.1.240004.3.579.2. 462 Unknown [id number] 2.16840.1.604106.3.579.2. 462 Unknown [id number] 2.16840.1.230623.3.579.2. 462 Unknown [id number] 2.16.840.1.235620.3.579.2. 462 Unknown [id number] 2.16840.1.335777.3.579.2. 462 Unknown [id number] 2.16.840.1.897203.3.579.2. 462 Unknown [id number] 2.16.840.1.709680.3.579.2. 462 Unknown [id number] 2.16.840.1.306807.3.579.2. 462 Unknown [id number] 2.16.840.1.251347.3.579.2. 462 Unknown [id number] 2.16.840.1.607235.3.579.2. 462 Unknown [id number] 2.16.840.1.269553.3.579.2. 462 Unknown [id number] 2.16.840.1.826102.3.579.2. 462 Unknown [id number] 2.16.840.1.826148.3.579.2. 462 Unknown [id number] 2.16.840.1.312853.3.579.2. 462 Unknown [id number] 2.16.840.1.764549.3.579.2. 462 Unknown [id number] 2.16.840.1.480689.3.579.2. 462 Unknown [id number] 2.16.840.1.737715.3.579.2. 462 Unknown [id number] 2.16.840.1.424348.3.579.2. 462 Unknown [id number] 2.16.840.1.920938.3.579.2. 462 Unknown [id number] 2.16.840.1.400048.3.579.2. 462 Unknown [id number] 2.16.840.1.650438.3.579.2. 462 Unknown [id number] 2.16.840.1.059623.3.579.2. 462 Unknown [id number] 2.16.840.1.483468.3.579.2. 462 Unknown [id number] 2.16.840.1.835195.3.579.2. 462 Unknown [id number] 2.16.840.1.806238.3.579.2. 462 Unknown [id number] 2.16.840.1.250649.3.579.2. 462 Unknown [id number] 2.16.840.1.679438.3.579.2. 462 Unknown [id number] 2.16.840.1.532332.3.579.2. 462 Unknown [id number] 2.16.840.1.399419.3.579.2. 462 Unknown [id number] 2.16.840.1.763042.3.579.2. 462 Unknown [id number] 2.16.840.1.874303.3.579.2. 462 Unknown [id number] 2.16.840.1.789958.3.579.2. 462 Unknown [id number] 2.16.840.1.901647.3.579.2. 462 Unknown [id number] 2.16.840.1.505563.3.579.2. 462 Unknown [id number] 2.16.840.1.247974.3.579.2. 462 Unknown [id number] 2.16.840.1.642538.3.579.2. 462 Unknown [id number] 2.16.840.1.874167.3.579.2. 462 Social History Date Type Detail Facility Start: 12-28-2019 End: 12-05-2024 Light tobacco smoker (finding) [facility] Assigned At [facility] Start: 12-01-2005 End: 02-18-2025 Sex Female (finding) [facility] Start: 01-02-2025 End: 03-20-2025 Tobacco smoking status MSIS Smokes tobacco daily (finding) [facility] Start: 1960 Sex Assigned At Female [facility] Start: 02-04-2025 Tobacco smoking status NHIS Ex-smoker (finding) [facility] Start: 10-24-1992 History of tobacco use Cigarette Smoker [facility] Work Phone: Start: 03-21-2025 End: 03-22-2025 Cigarettes smoked current (pack per day) - Reported 0.5 [facility] Work Phone: Start: 03-21-2025 Tobacco use and exposure Smokeless tobacco non-user [facility] Work Phone: Start: 03-25-2025 Alcoholic beverage intake Lifetime non-drinker (finding) [facility] Work Phone: Start: 03-21-2025 End: 03-22-2025 [id number] [facility] Work Phone: How often do you nee d to have someone help you when you read instructions, pamphlets, or other written material from your doctor or pharmacy [SILS] Never [facility] Work Phone: Has the [employer], gas, oil, or water [employer] threatened to shut off services in your home in past 12Mo No [facility] Work Phone: Are you now , , , , never or living with a partner? [facility] Work Phone: How many standard drinks containing alcohol do you have on a typical day? Patient does not drink [facility] Work Phone: How hard is it for you to pay for the very basics like food, housing, medical care, and heating Not very hard [facility] Do you feel stress - tense, restless, nervous, or anxious, or unable to sleep at night because your mind is troubled all the time - these days [OSQ] Not at all [facility] Work Phone: (I/We) worried whether (my/our) food would run out before (I/we) got money to buy more. Never true [facility] Work Phone: Start: 1960 Sex assigned at Not on file [facility] Work Phone: Start: 03-11-2025 End: 03-21-2025 Exposure to SARS-CoV-2 (event) Not sure [facility] NEGATED: Highlighted row Not [facility] Medical Equipment Procedure Code Equipment Code Equipment Origin al Text Equipment Identifier Dates Colonoscopy [id number] FDA Start: 02-21-2025 ()[id number] FDA Start: 10-09-2024 [id number]) [id number] FDA Start: 02-04-2025 Goals Date Patient Goal Desired Activity /State Functional Status Date Assessment Result Facility 03-21-2025 Total score [AUDIT-C] 0 03/21/20 25 10:12 PM EDT Larry Key RN [facility] Work Phone: 03-21-2025 Patient Health Questionnaire 2 item (PHQ-2) [Reported] [facility] Work Phone: 03-21-2025 [facility] s everity rating scale screener - recent [C-SSRS] [facility] Work Phone: 03-04-2025 Functional status Chair [facility] Work Phone: 02-22-2025 Functional status Up ad radha;Bath room Privilege [facility] Work Phone: 02-05-2025 Functional status Bedrest [facility] Work Phone: 10-11-2024 Functional status Ambulates [facility] Work Phone: [facility] Work Phone: Mental Status Date Assessment Result Facility 03-04-2025 Cognitive function Voice/Name [facility] Work Phone: 02-28-2025 Cognitive function Voice/Name [facility] Work Phone: 02-22-2025 Cognitive function Voice/Name [facility] Work Phone: 02-06-2025 Cognitive function Voice/Name [facility] Work Phone: 02-04-2025 Cognitive function Awake;Alert;A ppropriate;Fol lows Commands [facility] Work Phone: 10-11-2024 Cognitive function Voice/Name [facility] Work Phone: Clinical Notes 07-04-2021 to 04-09-2025 Note Date & Type Note Facility 04-09-2025 Note Exam Date Time Procedure Performing Provider Status 04/09/25 11:34 AM MA Mammo Screening B ilateral w/DEONDRE Murray MD; Auth (Verified) [id number] ORIGINAL FROM: [address] [address] PROCEDURE FOR: MILY LONG [address] [place] [id number] Home: PID#: [id number] Exam#: [id number] : 1960 Age: 65 TO: FLORIN BAILEY [address] [place] [address] Fax: NO FAX EXAMINATION: SCREENING DIGITAL BILATERAL MAMMOGRAM WITH TOMOSYNTHESIS, 04/09/2025 11:22 am TECHNIQUE: Screening mammography of the bilateral breasts was performed with tomosynthesis. 2D standard and 3D tomosynthesis combination imaging performed through both breasts in the MLO and CC projection. Computer aided detection was utilized in the interpretation of this exam. COMPARISON: Mammogram 11/21/2019 and 08/30/2018 HISTORY: Breast cancer screening. FINDINGS: BREAST DENSITY: There are scattered areas of fibroglandular density. Bilateral intramammary lymph nodes noted. There are no significant masses or calcifications. IMPRESSION: No mammographic evidence of malignancy. Continued screening with annual mammograms is recommended. Micheal Trevino risk calculations, generated with the history provided, report this patient's 10 year risk and lifetime risk for developing breast cancer at 2.3% and 4.5%, respectively. Based on this assessment tool, if the patient's calculated lifetime risk is below 20%, then the patient is considered at average risk for developing breast cancer. If the patient's calculated lifetime risk is at or above 20%, then the patient is considered high risk for developing breast cancer and may be a candidate for supplemental breast MRI screening in addition to annual mammographic screening per the [employer]. I have personally reviewed the images of this examination and agree with the resident's findings and interpretation. BIRADS: MAMMOGRAM BI-RADS: 2: Benign finding RECALL: 1 year screening RECALL TYPE: mammo LETTER SENT: Normal BI-RADS 1 and 2 Interpreted by: Deondre Black MD Preliminary Report By: Chente Taylor Electronically signed By Deondre Black MD Dictated Date: 04/09/2025 1:46:29 PM Prelim Date: 04/09/2025 3:23:06 PM Sign Date: 04/09/2025 3:23:06 PM Ordering Provider: FLORIN BAILEY Spot Remover: LINDA SHEIKH RT (R)(M) letter sent: Normal BI-RADS 1 and 2 Mammogram BI-RADS: 2 Benign [facility]06-03-2025 Plan of care note* Care Plan - Hallie Valentin RN - 03/26/2025 12:26 PM EDT The clinical goals for the shift include Patient to remain hemodynamically stable prior to discharge Problem: Pain - Adult Goal: Verbalizes/displays adequate comfort level or baseline comfort level Outcome: Met Problem: Safety - Adult Goal: Free from fall injury Outcome: Met Problem: Discharge Planning Goal: Discharge to home or other facility with appropriate resources Outcome: Met Problem: Chronic Conditions and Co-morbidities Goal: Patient's chronic conditions and co-morbidity symptoms are monitored and maintained or improved Outcome: Met Problem: Nutrition Goal: Nutrient intake appropriate for maintaining nutritional needs Outcome: Met [facility] Work Phone: 1(223) 909-725006-03-2025 Miscellaneous Notes* Care Plan - Hallie Valentin RN - 03/26/2025 12:26 PM EDT The clinical goals for the shift include Patient to remain hemodynamically stable prior to discharge Problem: Pain - Adult Goal: Verbalizes/displays adequate comfort level or baseline comfort level Outcome: Met Problem: Safety - Adult Goal: Free from fall injury Outcome: Met Problem: Discharge Planning Goal: Discharge to home or other facility with appropriate resources Outcome: Met Problem: Chronic Conditions and Co-morbidities Goal: Patient's chronic conditions and co-morbidity symptoms are monitored and maintained or improved Outcome: Met Problem: Nutrition Goal: Nutrient intake appropriate for maintaining nutritional needs Outcome: Met * Care Plan - Harmony Greer LPN - 03/26/2025 6:51 AM EDT The patient's goals for the shift include The clinical goals for the shift include Pt will remain safe and free from falls and injuries during shift Over the shift, the patient did make progress toward the following goals * Keo Thomas - Hallie Valentin RN - 03/25/2025 1:49 PM EDT The clinical goals for the shift include Patient to remain hemodynamically stable by end of shift Problem: Safety - Adult Goal: Free from fall injury Outcome: Progressing Problem: Pain - Adult Goal: Verbalizes/displays adequate comfort level or baseline comfort level Outcome: Progressing Problem: Chronic Conditions and Co-morbidities Goal: Patient's chronic conditions and co-morbidity symptoms are monitored and maintained or improved Outcome: Progressing * Care Plan - Melba Marmolejo RN - 03/25/2025 3:39 AM EDT The clinical goals for the shift include Pt will remain free from falls or injury throughout the shift. Over the shift, the patient did make progress toward the goals. Problem: Pain - Adult Goal: Verbalizes/displays adequate comfort level or baseline comfort level Outcome: Progressing Problem: Safety - Adult Goal: Free from fall injury Outcome: Progressing Problem: Discharge Planning Goal: Discharge to home or other facility with appropriate resources Outcome: Progressing Problem: Chronic Conditions and Co-morbidities Goal: Patient's chronic conditions and co-morbidity symptoms are monitored and maintained or improved Outcome: Progressing Problem: Nutrition Goal: Nutrient intake appropriate for maintaining nutritional needs Outcome: Progressing * Care Plan - Lauren Pritchett RN - 03/24/2025 5:11 PM EDT Problem: Pain - Adult Goal: Verbalizes/displays adequate comfort level or baseline comfort level Outcome: Progressing Problem: Safety - Adult Goal: Free from fall injury Outcome: Progressing Problem: Chronic Conditions and Co-morbidities Goal: Patient's chronic conditions and co-morbidity symptoms are monitored and maintained or improved Outcome: Progressing The clinical goals for the shift include Pt will remain free from falls or injury during the shift. * Care Plan - Melba Marmolejo RN - 03/24/2025 3:06 AM EDT The clinical goals for the shift include Pt will remain free from falls or injury throughout the shift. Over the shift, the patient did make progress toward the goals. Problem: Pain - Adult Goal: Verbalizes/displays adequate comfort level or baseline comfort level Outcome: Progressing Problem: Safety - Adult Goal: Free from fall injury Outcome: Progressing Problem: Discharge Planning Goal: Discharge to home or other facility with appropriate resources Outcome: Progressing Problem: Chronic Conditions and Co-morbidities Goal: Patient's chronic conditions and co-morbidity symptoms are monitored and maintained or improved Outcome: Progressing Problem: Nutrition Goal: Nutrient intake appropriate for maintaining nutritional needs Outcome: Progressing * Hospital Course - Christine Osborne MD - 03/23/2025 5:26 PM EDT Mily Long is a 65 y.o. female with history of CAD (s/p recent PCI 10/10/24 with FREDDIE to LAD and PCI 02/04/25 with FREDDIE to mild L circumflex) and melena in setting of DAPT following PCI presents for further evaluation of GI bleeding. On day of admission, she endorsed 3 episodes of dark black stools over the past 24 hours. Her hgb on admission was 7.2 and per her cardiac history, goal Hgb was 8, so she was transfused with 1 unit pRBCs. After transfusion, her hgb was stable around 9 despite reporting ongoing dark stools. She was recently admitted 02/18-02/22 with melena, at that time underwent EGD, demonstrating Grade A erosive esophagitis without bleeding, followed by colonoscopy, showing diverticulosis. She was again admitted 03/03-03/04 for melena and found to have Hgb of 6.2. She received 2u pRBC transfusion with subsequent stable CBC. Following this, underwent outpatient capsule endoscopy on 03/08/25 3 areas of bleeding in small bowel, concerning for AVMs. GI was consulted this admission and performed a single balloon enteroscopy 03/25 which showed two areas of non-specific erythema in the jejunum. One hemoclip was placed. Her hemoglobin remained stable around 9 for 5 days after the initial transfusion on 03/22. She should follow up with her GI outpatient to monitor this. In regards to her cardiac history, patient presented with STEMI and underwent PPCI 10/10/2024 with FREDDIE to LAD and PTCA of prox diagonal. Patient recently presented again to ED on 02/04/25 for chest pain with elevated troponin to [address] depressions of lateral leads on EKG. 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 Due to the recent PCI and dark stools, Cardiology was consulted and stated patient would need DAPT for 3 months and since patient is not HDUS/in hemorrhagic shock recommended switching to clopidogrel for lowerbleeding risk. She was loaded with clopidogrel and ticagrelor was stopped. She will need outpatientcardiology follow up. Discharged on aspirin and plavix. Of note, patient had chest xray done on admission 03/21 which showed: Focal linear opacity noted of the left lower lung which may represent atelectasis with underlying pulmonary nodule not ruled out. Recommend follow-up radiographs in 4 weeks. If this is persistent on the follow-up radiographs, thena CT chest is recommended for additional evaluation. Advised patient of these findings and instructed her to follow up with her PCP to get repeat chest xray done in 1 month. She was discharged home 03/26/2025. * Assessment & Plan Note - Laurie Arceo MD - 03/23/2025 11:34 AM EDTAssociated Problem(s): SOB (shortness of breath) Mily Long is a 65 y.o. female with history of CAD (s/p recent PCI 10/16 and PCI 02/04/25 withDES to mild L circumflex) and melena in setting of DAPT following PCI presents for further evaluation of GI bleeding. 03/23 Updates: - per cards rec, switch ticagrelor to clopidogrel #Melena #Anemia #Concern for GI bleeding :: Recent EGD/colonoscopy with impression included above :: Recent capsule endoscopy, noted with 3 areas of bleeding however, procedure report not readilyavailable at this time :: Melena in setting of recent cardiac PCI and FREDDIE with DAPT Plan: - Given recent PCI on 02/05/24 and in 09/2024, will continue DAPT for now. Cardiology consulted, recswitch from ticagrelor to clopidogrel - CBC BID - Maintain active T+S - Hgb goal > 8 in setting of recent NV with FREDDIE - Protonix 40mg IV BID - 2 large bore IV if possible - pending scope 03/25 #STEMI s/p PCI 10/10/2024 and 01/2025 :: PCI 10/10/2024 with L main with mild luminal irregularities, prox LAD with 80% stenosis, mid LADw 40% stenosis, diagonal 1 w 99% stenosis, Lcx with mild diffuse disease, ostial RCA with 30-40% stenosis, prox RCA with mild luminal irregularities. Underwent FREDDIE to LAD and PTCA of prox diagonal :: PCI 01/2025 with FREDDIE placed to mid L circumflex and PTCA performed to D1 artery :: Echocardiogram 02/19/25: The estimated ejection fraction is 65 %. No evidence for diastolic dysfunction. Moderate (2+) mitral valve insufficiency. :: Troponin negative at 11 on presentation Plan: - No evidence of chest pain currently per patient - Continue DAPT with ASA + clopidogrel per cards (switch from home ticagrelor) - Hold metoprolol in setting of GI bleeding #iron deficiency anemia :: iron studies with iron 20, % sat 9 - IV iron sucrose x3 days F: PRN E: replete PRN N: regular A: pIV DVT ppx: SCDs, no chemoprophylaxis I/s/o c/f GIB GI ppx: PPI IV BID Code status: Full Surrogate: Haroon [phone] * Care Plan - Steve Rain RN - 03/23/2025 5:54 AM EDT The patient's goals for the shift include The clinical goals for the shift include Patient will remain safe and HD stable during this shift. Problem: Pain - Adult Goal: Verbalizes/displays adequate comfort level or baseline comfort level 03/23/2025553 by Steve Rain RN Outcome: Progressing 03/22/20252222 by Steve Rain RN Outcome: Progressing Problem: Safety - Adult Goal: Free from fall injury 03/23/2025553 by Steve Rain RN Outcome: Progressing 03/22/20252222 by Steve Rain RN Outcome: Progressing Problem: Discharge Planning Goal: Discharge to home or other facility with appropriate resources 03/23/2025 05 by Steve Rain RN Outcome: Progressing 03/22/20252222 by Steve Rain RN Outcome: Progressing Problem: Chronic Conditions and Co-morbidities Goal: Patient's chronic conditions and co-morbidity symptoms are monitored and maintained or improved 03/23/2025 05 by Steve Rain RN Outcome: Progressing 03/22/20252222 by Steve Rain RN Outcome: Progressing Problem: Nutrition Goal: Nutrient intake appropriate for maintaining nutritional needs 03/23/2025553 by Steve Rain RN Outcome: Progressing 03/22/20252222 by Steve Rain RN Outcome: Progressing * Assessment & Plan Note - Chucho Wilson MD - 03/21/2025 11:06 PM EDTAssociated Problem(s): SOB (shortness of breath) Mily Long is a 65 y.o. female with history of CAD (s/p recent PCI 10/16 and PCI 02/04/25 withDES to mild L circumflex) and melena in setting of DAPT following PCI presents for further evaluation of GI bleeding. #Melena #Anemia #Concern for GI bleeding :: Recent EGD/colonoscopy with impression included above :: Recent capsule endoscopy, noted with 3 areas of bleeding however, procedure report not readilyavailable at this time :: Melena in setting of recent cardiac PCI and FREDDIE with DAPT Plan: - Given recent PCI on 02/05/24 and in 09/2024, will continue DAPT for now. Consider cardiology consult for further guidance in setting of GI bleeding - CBC BID - Maintain active T+S - Hgb goal > 8 in setting of recent NV with FREDDIE - Protonix 40mg IV BID - Hold PO iron supplementation - 2 large bore IV if possible - NPO at midnight - GI consult for consideration of further endoscopic evaluation if warranted #STEMI s/p PCI 10/10/2024 and 01/2025 :: PCI 10/10/2024 with L main with mild luminal irregularities, prox LAD with 80% stenosis, mid LADw 40% stenosis, diagonal 1 w 99% stenosis, Lcx with mild diffuse disease, ostial RCA with 30-40% stenosis, prox RCA with mild luminal irregularities. Underwent FREDDIE to LAD and PTCA of prox diagonal :: PCI 01/2025 with FREDDIE placed to mid L circumflex and PTCA performed to D1 artery :: Echocardiogram 02/19/25: The estimated ejection fraction is 65 %. No evidence for diastolic dysfunction. Moderate (2+) mitral valve insufficiency. :: Troponin negative at 11 on presentation Plan: - No evidence of chest pain currently per patient - Continue DAPT for now - Hold metoprolol in setting of GI bleeding F: PRN E: replete PRN N: NPO at midnight A: pIV DVT ppx: DAPT for recent PCI GI ppx: PPI IV BID Code status: Full Surrogate: Haroon [phone] [facility] Work Phone: 1(118) 851-392606-03-2025 Nurse Note* Hallie Valentin RN - 03/26/2025 12:23 PM EDT Patient discharged home with meds to beds delivered to patient. Discharge instruction reviewed withpatient and family who verbalized understanding, belongings at bedside and IV access discontinued and covered with gauze and tape. No complaints voiced prior to discharge. Patient transport requestedfor patient. [facility]06-03-2025 Nurse Note* Hallie Valentin RN - 03/26/2025 12:23 PM EDT Patient discharged home with meds to beds delivered to patient. Discharge instruction reviewed withpatient and family who verbalized understanding, belongings at bedside and IV access discontinued and covered with gauze and tape. No complaints voiced prior to discharge. Patient transport requestedfor patient. documented in this [facility] Work Phone: 1(724) 636-448306-03-2025 Hospital course Narrative* Christine Osborne MD - 03/26/2025 9:57 AM EDT Discharge Diagnosis SOB (shortness of breath) Acute blood loss anemia UGIB Issues Requiring Follow-Up - Cardiology follow up- s/p PCI and switched from ticagrelor to clopidogrel for GI bleed - GI follow up- GI bleeding, s/p EGD and hemoclip placed in jejunum; monitor hemoglobin - PCP- chest xray for possible pulmonary nodule, also monitoring cell counts Discharge Meds Medication List START taking these medications aspirin 81 mg chewable tablet; Chew 1 tablet (81 mg) once daily. clopidogrel 75 mg tablet; Commonly known as: Plavix; Take 1 tablet (75 mg) by mouth once daily for 60 doses. CONTINUE taking these medications atorvastatin 40 mg tablet; Commonly known as: Lipitor iron polysaccharides 150 mg iron capsule; Commonly known as: Nu-Iron,Niferex metoprolol succinate XL 25 mg 24 hr tablet; Commonly known as: Toprol-XL nitroglycerin 0.4 mg SL tablet; Commonly known as: Nitrostat pantoprazole 40 mg EC tablet; Commonly known as: ProtoNix STOP taking these medications Brilinta 90 mg tablet; Generic drug: ticagrelor Test Results Pending At Discharge Pending Labs Order Current Status Type And Screen Preliminary result Hospital Course Mily Long is a 65 y.o. female with history of CAD (s/p recent PCI 10/10/24 with FREDDIE to LAD and PCI 02/04/25 with FREDDIE to mild L circumflex) and melena in setting of DAPT following PCI presents for further evaluation of GI bleeding. On day of admission, she endorsed 3 episodes of dark black stools over the past 24 hours. Her hgb on admission was 7.2 and per her cardiac history, goal Hgb was 8, so she was transfused with 1 unit pRBCs. After transfusion, her hgb was stable around 9 despite reporting ongoing dark stools. She was recently admitted 02/18-02/22 with melena, at that time underwent EGD, demonstrating Grade A erosive esophagitis without bleeding, followed by colonoscopy, showing diverticulosis. She was again admitted 03/03-03/04 for melena and found to have Hgb of 6.2. She received 2u pRBC transfusion with subsequent stable CBC. Following this, underwent outpatient capsule endoscopy on 03/08/25 3 areas of bleeding in small bowel, concerning for AVMs. GI was consulted this admission and performed a single balloon enteroscopy 03/25 which showed two areas of non-specific erythema in the jejunum. One hemoclip was placed. Her hemoglobin remained stable around 9 for 5 days after the initial transfusion on 03/22. She should follow up with her GI outpatient to monitor this. In regards to her cardiac history, patient presented with STEMI and underwent PPCI 10/10/2024 with FREDDIE to LAD and PTCA of prox diagonal. Patient recently presented again to ED on 02/04/25 for chest pain with elevated troponin to [address] depressions of lateral leads on EKG. 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 Due to the recent PCI and dark stools, Cardiology was consulted and stated patient would need DAPT for 3 months and since patient is not HDUS/in hemorrhagic shock recommended switching to clopidogrel for lowerbleeding risk. She was loaded with clopidogrel and ticagrelor was stopped. She will need outpatientcardiology follow up. Discharged on aspirin and plavix. Of note, patient had chest xray done on admission 03/21 which showed: Focal linear opacity noted of the left lower lung which may represent atelectasis with underlying pulmonary nodule not ruled out. Recommend follow-up radiographs in 4 weeks. If this is persistent on the follow-up radiographs, thena CT chest is recommended for additional evaluation. Advised patient of these findings and instructed her to follow up with her PCP to get repeat chest xray done in 1 month. She was discharged home 03/26/2025. Pertinent Physical Exam At Time of Discharge Physical Exam Constitutional: General: She is not in acute distress. Appearance: Normal appearance. HENT: Mouth/Throat: Mouth: Mucous membranes are moist. Eyes: Pupils: Pupils are equal, round, and reactive to light. Cardiovascular: Rate and Rhythm: Normal rate and regular rhythm. Heart sounds: Murmur heard. Pulmonary: Effort: Pulmonary effort is normal. No respiratory distress. Breath sounds: Normal breath sounds. Abdominal: General: There is no distension. Palpations: Abdomen is soft. Tenderness: There is no abdominal tenderness. Musculoskeletal: Right lower leg: No edema. Left lower leg: No edema. Skin: General: Skin is warm. Neurological: General: No focal deficit present. Mental Status: She is alert and oriented to person, place, and time. Psychiatric: Mood and Affect: Mood normal. Thought Content: Thought content normal. Vitals Vitals: 03/26/25 0925 BP: 118/62 Pulse: 80 Resp: 18 Temp: 36.3 C (97.3 F) SpO2: 98% Labs Results for orders placed or performed during the hospital encounter of 03/21/25 (from the past 24 hours) Type and Screen Result Value Ref Range ABO TYPE A Rh TYPE POS ANTIBODY SCREEN NEG CBC and Auto Differential Result Value Ref Range WBC 11.7 (H) 4.4 - 11.3 x10*3/uL nRBC 0.0 0.0 - 0.0 /100 WBCs RBC 2.98 (L) 4.00 - 5.20 x10*6/uL Hemoglobin 8.9 (L) 12.0 - 16.0 g/dL Hematocrit 28.8 (L) 36.0 - 46.0 % MCV 97 80 - 100 fL MCH 29.9 26.0 - 34.0 pg MCHC 30.9 (L) 32.0 - 36.0 g/dL RDW 17.2 (H) 11.5 - 14.5 % Platelets 202 150 - 450 x10*3/uL Neutrophils % 80.6 40.0 - 80.0 % Immature Granulocytes %, Automated 0.5 0.0 - 0.9 % Lymphocytes % 13.5 13.0 - 44.0 % Monocytes % 5.0 2.0 - 10.0 % Eosinophils % 0.0 0.0 - 6.0 % Basophils % 0.4 0.0 - 2.0 % Neutrophils Absolute 9.40 (H) 1.20 - 7.70 x10*3/uL Immature Granulocytes Absolute, Automated 0.06 0.00 - 0.70 x10*3/uL Lymphocytes Absolute 1.58 1.20 - 4.80 x10*3/uL Monocytes Absolute 0.58 0.10 - 1.00 x10*3/uL Eosinophils Absolute 0.00 0.00 - 0.70 x10*3/uL Basophils Absolute 0.05 0.00 - 0.10 x10*3/uL Renal function panel Result Value Ref Range Glucose 101 (H) 74 - 99 mg/dL Sodium 142 136 - 145 mmol/L Potassium 4.1 3.5 - 5.3 mmol/L Chloride 111 (H) 98 - 107 mmol/L Bicarbonate 24 21 - 32 mmol/L Anion Gap 11 10 - 20 mmol/L Urea Nitrogen 18 6 - 23 mg/dL Creatinine 0.98 0.50 - 1.05 mg/dL eGFR 63 >60 mL/min/1.73m*2 Calcium 8.9 8.6 - 10.6 mg/dL Phosphorus 2.9 2.5 - 4.9 mg/dL Albumin 3.9 3.4 - 5.0 g/dL Magnesium Result Value Ref Range Magnesium 1.99 1.60 - 2.40 mg/dL Outpatient Follow-Up No future appointments. Christine Osborne MD PGY1 Cosigned by Kendall Brower MD at 03/26/2025 11:04 AM EDT Associated attestation - Kendall Brower MD - 03/26/2025 11:04 AM EDT I saw and evaluated the patient. I personally obtained the roca and critical portions of the historyand physical exam or was physically present for roca and critical portions performed by the resident/fellow. I reviewed the resident/fellow's documentation and discussed the patient with the resident/anais main. I agree with the resident/fellow's medical decision making as documented in the note. SBE on 03/25 for hemoclip placement on potential bleeding source in jejunum. Hgb stable. No further overt bleeding. Follow up with primary documentation nurse, rail car unloader, and PCP. Kendall Brower MD Division of Gastroenterology and Liver Disease [facility] Work Phone: 1(380) 686-628806-03-2025 Plan of care note* Care Plan - Harmony Greer LPN - 03/26/2025 6:51 AM EDT The patient's goals for the shift include The clinical goals for the shift include Pt will remain safe and free from falls and injuries during shift Over the shift, the patient did make progress toward the following goals [facility]06-02-2025 Plan of care note* Care Plan - Hallie Valentin RN - 03/25/2025 1:49 PM EDT The clinical goals for the shift include Patient to remain hemodynamically stable by end of shift Problem: Safety - Adult Goal: Free from fall injury Outcome: Progressing Problem: Pain - Adult Goal: Verbalizes/displays adequate comfort level or baseline comfort level Outcome: Progressing Problem: Chronic Conditions and Co-morbidities Goal: Patient's chronic conditions and co-morbidity symptoms are monitored and maintained or improved Outcome: Progressing [facility] Work Phone: 1(228) 957-774206-02-2025 History and physical note* Matti Hodge MD - 03/25/2025 11:42 AM EDT History Of Present Illness Mily Long is a 65 y.o. female presenting here for inpatient device- assisted enteroscopy while on Plavix and aspirin for history of recurrent melena x 2 months with anemia blood loss and abnormal SBCE (video not provided for review) done at outside facility. Past Medical History Medical History[1] Surgical History Surgical History[2] Social History She reports that she has been smoking cigarettes. She started smoking about 32 years ago. She has a16.2 pack-year smoking history. She has never used smokeless tobacco. She reports that she does notdrink alcohol and does not use drugs. Family History Family History[3] Allergies Allergies[4] Physical Exam Constitutional: Appearance: Normal appearance. HENT: Mouth/Throat: Mouth: Mucous membranes are moist. Eyes: Conjunctiva/sclera: Conjunctivae normal. Cardiovascular: Rate and Rhythm: Normal rate. Pulmonary: Effort: Pulmonary effort is normal. Abdominal: Palpations: Abdomen is soft. Skin: General: Skin is warm. Neurological: Mental Status: She is oriented to person, place, and time. Psychiatric: Mood and Affect: Mood normal. Last Recorded Vitals Blood pressure 121/63, pulse 70, temperature 36.2 C (97.2 F), temperature source Temporal, resp. rate 17, height 1.702 m (5' 7.01), weight 70.6 kg (155 lb 9.6 oz), SpO2 96%. Assessment/Plan inpatient device-assisted enteroscopy while on Plavix and aspirin for history of recurrent melena x2 months with anemia blood loss and abnormal SBCE (video not provided for review) done at outside facility Matti Hodge MD [1] Past Medical History: Diagnosis Date GERD (gastroesophageal reflux disease) NV (myocardial infarction) (Multi) Sleep apnea [2] History reviewed. No pertinent surgical history. [3] No family history on file. [4] Allergies Allergen Reactions Sulfa (Sulfonamide Antibiotics) Diarrhea Sulfamethoxazole-Trimethoprim Nausea/vomiting Penicillins Hives and Rash [facility] Work Phone: [phone] 300-700506-02-2025 History and physical note* Matti Hodge MD - 03/25/2025 11:42 AM EDT History Of Present Illness Mily Long is a 65 y.o. female presenting here for inpatient device- assisted enteroscopy while on Plavix and aspirin for history of recurrent melena x 2 months with anemia blood loss and abnormal SBCE (video not provided for review) done at outside facility. Past Medical History Medical History[1] Surgical History Surgical History[2] Social History She reports that she has been smoking cigarettes. She started smoking about 32 years ago. She has a16.2 pack-year smoking history. She has never used smokeless tobacco. She reports that she does notdrink alcohol and does not use drugs. Family History Family History[3] Allergies Allergies[4] Physical Exam Constitutional: Appearance: Normal appearance. HENT: Mouth/Throat: Mouth: Mucous membranes are moist. Eyes: Conjunctiva/sclera: Conjunctivae normal. Cardiovascular: Rate and Rhythm: Normal rate. Pulmonary: Effort: Pulmonary effort is normal. Abdominal: Palpations: Abdomen is soft. Skin: General: Skin is warm. Neurological: Mental Status: She is oriented to person, place, and time. Psychiatric: Mood and Affect: Mood normal. Last Recorded Vitals Blood pressure 121/63, pulse 70, temperature 36.2 C (97.2 F), temperature source Temporal, resp. rate 17, height 1.702 m (5' 7.01), weight 70.6 kg (155 lb 9.6 oz), SpO2 96%. Assessment/Plan inpatient device-assisted enteroscopy while on Plavix and aspirin for history of recurrent melena x2 months with anemia blood loss and abnormal SBCE (video not provided for review) done at outside facility Matti Hodge MD [1] Past Medical History: Diagnosis Date GERD (gastroesophageal reflux disease) NV (myocardial infarction) (Multi) Sleep apnea [2] History reviewed. No pertinent surgical history. [3] No family history on file. [4] Allergies Allergen Reactions Sulfa (Sulfonamide Antibiotics) Diarrhea Sulfamethoxazole-Trimethoprim Nausea/vomiting Penicillins Hives and Rash * Chucho Wilson MD - 03/21/2025 8:57 PM EDT History Of Present Illness Mily Long is a 65 y.o. female with history of CAD (s/p recent PCI 10/10/24 with FREDDIE to LAD and PCI 02/04/25 with FREDDIE to mild L circumflex) and melena in setting of DAPT following PCI presents for further evaluation of GI bleeding. Patient's recent cardiac history and admissions for melena/GI bleeding are described in brief below. She has had recurrent issues with melena and has underwent EGD, colonoscopy, and capsule endoscopy by OSH providers. She was planned to be seen by GI providers outpatient for further small bowel evaluation. Earlier this AM, patient had symptoms of nausea, SOB, weakness, and 3 episodes of dark black stools over the past 24 hrs. She denies any chest pain or current SOB or fevers. Given her recurrent symptoms, decided to bring herself to for further evaluation. In regards to her cardiac history, patient presented with STEMI and underwent PPCI 10/10/2024 with FREDDIE to LAD and PTCA of prox diagonal. Patient recently presented again to ED on 02/04/25 for chest pain with elevated troponin to [address] depressions of lateral leads on EKG. 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 Recently admitted 02/18-02/22 with melena, at that time underwent EGD, demonstrating Grade A erosive esophagitis without bleeding, followed by colonoscopy, showing diverticulosis, with full results below. She was again admitted 03/03-03/04 for melena and found to have Hgb of 6.2. She received 2u pRBC transfusion with subsequent stable CBC. Following this, underwent outpatient capsule endoscopy on 03/08/25 however results not readily available per chart review. She reports that she had 3 areas of bleeding noted on the capsule endoscopy. She recently presented to her local ED in [place] with similar symptoms on 03/18 and at that time, was discharged with plan to follow up outpatient for consultation with GI providers for small bowel evaluation. Endoscopic history: EGD 02/19/25: - LA Grade A erosive esophagitis with no bleeding. - Medium-sized hiatal hernia. - No gross lesions in the entire examined duodenum. - No specimens collected. Colonoscopy 02/21/25: Impression: - Diverticulosis in the recto-sigmoid colon and in the sigmoid colon. - One 5 mm polyp at the splenic flexure, removed with a jumbo cold forceps. Resected and retrieved. - The examined portion of the ileum was normal. - Non-bleeding internal hemorrhoids. - The examination was otherwise normal on direct and retroflexion views. Of note, report also describes single large localized angiodysplastic lesion with bleeding found in the descending colon. For hemostasis, one hemostatic clip was successfully placed. ED Course: - Vital signs stable: afebrile, HR 80-90, RR 14-18, BP 100-130s/60-70, 100% on RA - Labs: - RFP WNL - LFTs WNL - CBC Hgb 8.8 but otherwise WNL - Troponin WNL - Imaging: CXR: 1. Findings of bibasilar atelectasis 2. Focal linear opacity noted of the left lower lung which may represent atelectasis with underlying pulmonary nodule not ruled out. Recommend follow-up radiographs in 4 weeks. If this is persistent on the follow- up radiographs, then a CT chest is recommended for additional evaluation. - Interventions: given 1u pRBC, protonix 40mg IV Past Medical History She has no past medical history on file. Surgical History She has no past surgical history on file. Social History She has no history on file for tobacco use, alcohol use, and drug use. Family History Family History[1] Allergies Sulfa (sulfonamide antibiotics), Sulfamethoxazole-trimethoprim, and Penicillins Review of Systems Review of systems was performed and is otherwise negative except as noted in HPI. Physical Exam General: awake, alert, conversant, appears stated age HEENT: pupils equal and round, no scleral icterus Skin: no suspect lesions or rashes noted on visible skin Chest: ctab, normal respiratory effort, not on supplemental oxygen Cardiac: regular rate, normal s1, s2, no M/R/G Abdomen: soft, ND, NT, no involuntary guarding : no flank pain or indwelling urinary catheter EXT: no peripheral edema, no asymmetry noted MSK: no focal joint swelling noted Neuro: AOx4, moving all limbs spontaneously, follows commands Psych: coherent thought process, appropriate mood and affect Last Recorded Vitals BP 121/58 Pulse 76 Temp 36.7 C (98.1 F) Resp 14 Wt 71.7 kg (158 lb) SpO2 95% Relevant Results Results from last 7 days Lab Units 03/21/25 1437 WBC AUTO x10*3/uL 9.8 HEMOGLOBIN g/dL 8.8* HEMATOCRIT % 27.9* PLATELETS AUTO x10*3/uL 252 Results from last 7 days Lab Units 03/21/25 1437 SODIUM mmol/L 140 POTASSIUM mmol/L 4.1 CHLORIDE mmol/L 107 CO2 mmol/L 24 BUN mg/dL 18 CREATININE mg/dL 1.05 CALCIUM mg/dL 10.1 PROTEIN TOTAL g/dL 7.3 BILIRUBIN TOTAL mg/dL 0.6 ALK PHOS U/L 75 ALT U/L 16 AST U/L 10 GLUCOSE mg/dL 90 Assessment/Plan Assessment & Plan SOB (shortness of breath) Mily Long is a 65 y.o. female with history of CAD (s/p recent PCI 10/16 and PCI 02/04/25 withDES to mild L circumflex) and melena in setting of DAPT following PCI presents for further evaluation of GI bleeding. #Melena #Anemia #Concern for GI bleeding :: Recent EGD/colonoscopy with impression included above :: Recent capsule endoscopy, noted with 3 areas of bleeding however, procedure report not readilyavailable at this time :: Melena in setting of recent cardiac PCI and FREDDIE with DAPT Plan: - Given recent PCI on 02/05/24 and in 09/2024, will continue DAPT for now. Consider cardiology consult for further guidance in setting of GI bleeding - CBC BID - Maintain active T+S - Hgb goal > 8 in setting of recent NV with FREDDIE - Protonix 40mg IV BID - Hold PO iron supplementation - 2 large bore IV if possible - NPO at midnight - GI consult for consideration of further endoscopic evaluation if warranted #STEMI s/p PCI 10/10/2024 and 01/2025 :: PCI 10/10/2024 with L main with mild luminal irregularities, prox LAD with 80% stenosis, mid LADw 40% stenosis, diagonal 1 w 99% stenosis, Lcx with mild diffuse disease, ostial RCA with 30-40% stenosis, prox RCA with mild luminal irregularities. Underwent FREDDIE to LAD and PTCA of prox diagonal :: PCI 01/2025 with FREDDIE placed to mid L circumflex and PTCA performed to D1 artery :: Echocardiogram 02/19/25: The estimated ejection fraction is 65 %. No evidence for diastolic dysfunction. Moderate (2+) mitral valve insufficiency. :: Troponin negative at 11 on presentation Plan: - No evidence of chest pain currently per patient - Continue DAPT for now - Hold metoprolol in setting of GI bleeding F: PRN E: replete PRN N: NPO at midnight A: pIV DVT ppx: DAPT for recent PCI GI ppx: PPI IV BID Code status: Full Surrogate: Haroon [phone] Chucho Wilson MD PGY-2 Internal Medicine [1] No family history on file. Cosigned by Kena Asencio MD at 03/23/2025 2:45 PM EDT Associated attestation - Kena Asencio MD - 03/23/2025 2:45 PM EDT I saw and evaluated the patient. I personally obtained the roca and critical portions of the historyand physical exam or was physically present for roca and critical portions performed by the resident/fellow. I reviewed the resident/fellow's documentation and discussed the patient with the resident/anais main. I agree with the resident/fellow's medical decision making as documented in the note. [facility] Work Phone: [phone]) 631-838506-02-2025 Hospital Discharge instructions* Discharge Instructions* Christine Osborne MD - 03/25/2025 11:42 AM EDT Dear Mily Long, You were admitted to [facility] for dark stools concerning for a GI bleed. This is likely caused by the blood thinning medications you are on for your heart disease/stents. These medications are essentialafter these heart procedures but do increase risk for GI bleeding, so you were switched from ticagrelor to clopidogrel. These are similar medications but clopidogrel may lower the risk of GI bleeding. You underwent a scope of the small bowel which showed some areas of possible bleeding, and a clip was placed to try to stop this bleeding. We recommend follow up with your documentation nurse or PCP in 1-2 weeks to make sure your labs remain stable. Additionally, you had a chest xray done when you came to the hospital which showed a possible pulmonary nodule, but it was not well characterized. We recommend discussing this with your PCP and repeating a chest xray with them in about one month. 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 Please schedule follow up with your documentation nurse Chest Xray in 4 weeks- please discuss this with your PCP Please ask your PCP or Gi doctor to check your hemoglobin level to make sure it remains stable It was a pleasure taking care of you and we wish you all the best with your recovery, Your Care Team [facility] Work Phone: [phone]) 236-662806-02-2025 Consult note* Hailey Clark RDN, LD - 03/25/2025 11:26 AM EDTAssociated Order(s): IP CONSULT TO NUTRITION SERVICES Nutrition Initial Assessment: Nutrition Assessment Reason for Assessment: Admission nursing screening Patient is a 65 y.o. female presenting with concerns of GI bleed. PMH of CAD, melena. Pt is NPO forsingle balloon enteroscopy today, 03/25. Patient was assessed virtually. Nutrition History: Food and Nutrient History: Attempted to call pt x 2 - no answer. Pt ate 100% x 2 meals on 03/24. Pt has been NPO this morning and afternoon for procedure. Diet now advanced to Regular. Anthropometrics: Height: 170.2 cm (5' 7.01) Weight: 70.6 kg (155 lb 9.6 oz) BMI (Calculated): 24.36 IBW/kg (Dietitian Calculated): 61.36 kg Percent of IBW: 115 % BMI Amputation Adjustment: No Weight History: Wt Readings from Last 10 Encounters: 03/21/25 70.6 kg (155 lb 9.6 oz) 03/18/25 71 kg (156 lb 8.4 oz) Weight Change %: Weight History / % Weight Change: Minimal weight history available to assess Nutrition Focused Physical Exam Findings: Defer: remote assessment Subcutaneous Fat Loss: Muscle Wasting: Edema: Physical Findings: Digestive System Findings: Other (Comment) (black stools) Nutrition Significant Labs: CBC Trend: Results from last 7 days Lab Units 03/25/25 0616 03/24/25 0759 03/23/25 1818 03/23/25 0614 WBC AUTO x10*3/uL 7.9 8.8 7.5 7.3 RBC AUTO x10*6/uL 3.18* 3.25* 3.22* 3.12* HEMOGLOBIN g/dL 9.2* 9.4* 9.6* 9.3* HEMATOCRIT % 30.9* 31.8* 30.5* 29.7* MCV fL 97 98 95 95 PLATELETS AUTO x10*3/uL 201 203 206 178 , BMP Trend: Results from last 7 days Lab Units 03/25/25 0616 03/24/25 0759 03/23/25 0614 03/22/25 0603 GLUCOSE mg/dL 90 122* 98 90 CALCIUM mg/dL 8.9 8.8 8.5* 8.6 SODIUM mmol/L 142 141 138 141 POTASSIUM mmol/L 3.9 3.7 3.8 4.0 CO2 mmol/L 22 24 22 22 CHLORIDE mmol/L 110* 109* 108* 110* BUN mg/dL 20 20 24* 22 CREATININE mg/dL 1.02 1.02 0.99 1.26* Nutrition Specific Medications: atorvastatin, 40 mg, oral, Daily clopidogrel, 75 mg, oral, Daily pantoprazole, 40 mg, intravenous, BID I/O: Last BM Date: 03/24/25; Stool Appearance: Soft (03/24/252007) Dietary Orders (From admission, onward) Start Ordered 03/25/25 1356 Adult diet Regular Diet effective now Question: Diet type Answer: Regular 03/25/25 1355 03/21/252212 May Participate in Room Service ( ROOM SERVICE MAY PARTICIPATE) Once Question: . Answer: Yes 03/21/252211 Estimated Needs: Total Energy Estimated Needs in 24 hours (kCal): 1840 kCal Method for Estimating Needs: IBW Total Protein Estimated Needs in 24 Hours (g): 76 g Method for Estimating 24 Hour Protein Needs: IBW, older adult Total Fluid Estimated Needs in 24 Hours (mL): 1840 mL Method for Estimating 24 Hour Fluid Needs: IBW Nutrition Diagnosis Nutrition Diagnosis Patient has Nutrition Diagnosis: Yes Diagnosis Status (1): New Nutrition Diagnosis 1: Altered GI function Related to (1): GI bleed As Evidenced by (1): recurrent melena Nutrition Interventions/Recommendations Nutrition prescription for oral nutrition Nutrition Recommendations: Individualized Nutrition Prescription Provided for : Continue regular diet as tolerated. Nutrition Interventions/Goals: Education Documentation No documentation found. Nutrition Monitoring and Evaluation Food/Nutrient Related History Monitoring Monitoring and Evaluation Plan: Intake / amount of food Intake / Amount of food: Consumes at least 75% or more of meals/snacks/supplements Goal Status: New goal(s) identified Time Spent (min): 45 minutes 03/25/25 at 2:55 PM - HAILEY CLARK RDN, LD [facility]06-02-2025 Consult note* Hailey Clark RDN, LD - 03/25/2025 11:26 AM EDTAssociated Order(s): IP CONSULT TO NUTRITION SERVICES Nutrition Initial Assessment: Nutrition Assessment Reason for Assessment: Admission nursing screening Patient is a 65 y.o. female presenting with concerns of GI bleed. PMH of CAD, melena. Pt is NPO forsingle balloon enteroscopy today, 03/25. Patient was assessed virtually. Nutrition History: Food and Nutrient History: Attempted to call pt x 2 - no answer. Pt ate 100% x 2 meals on 03/24. Pt has been NPO this morning and afternoon for procedure. Diet now advanced to Regular. Anthropometrics: Height: 170.2 cm (5' 7.01) Weight: 70.6 kg (155 lb 9.6 oz) BMI (Calculated): 24.36 IBW/kg (Dietitian Calculated): 61.36 kg Percent of IBW: 115 % BMI Amputation Adjustment: No Weight History: Wt Readings from Last 10 Encounters: 03/21/25 70.6 kg (155 lb 9.6 oz) 03/18/25 71 kg (156 lb 8.4 oz) Weight Change %: Weight History / % Weight Change: Minimal weight history available to assess Nutrition Focused Physical Exam Findings: Defer: remote assessment Subcutaneous Fat Loss: Muscle Wasting: Edema: Physical Findings: Digestive System Findings: Other (Comment) (black stools) Nutrition Significant Labs: CBC Trend: Results from last 7 days Lab Units 03/25/25 0616 03/24/25 0759 03/23/25 1818 03/23/25 0614 WBC AUTO x10*3/uL 7.9 8.8 7.5 7.3 RBC AUTO x10*6/uL 3.18* 3.25* 3.22* 3.12* HEMOGLOBIN g/dL 9.2* 9.4* 9.6* 9.3* HEMATOCRIT % 30.9* 31.8* 30.5* 29.7* MCV fL 97 98 95 95 PLATELETS AUTO x10*3/uL 201 203 206 178 , BMP Trend: Results from last 7 days Lab Units 03/25/25 0616 03/24/25 0759 03/23/25 0614 03/22/25 0603 GLUCOSE mg/dL 90 122* 98 90 CALCIUM mg/dL 8.9 8.8 8.5* 8.6 SODIUM mmol/L 142 141 138 141 POTASSIUM mmol/L 3.9 3.7 3.8 4.0 CO2 mmol/L 22 24 22 22 CHLORIDE mmol/L 110* 109* 108* 110* BUN mg/dL 20 20 24* 22 CREATININE mg/dL 1.02 1.02 0.99 1.26* Nutrition Specific Medications: atorvastatin, 40 mg, oral, Daily clopidogrel, 75 mg, oral, Daily pantoprazole, 40 mg, intravenous, BID I/O: Last BM Date: 03/24/25; Stool Appearance: Soft (03/24/252007) Dietary Orders (From admission, onward) Start Ordered 03/25/25 1356 Adult diet Regular Diet effective now Question: Diet type Answer: Regular 03/25/25 1355 03/21/25 221 May Participate in Room Service ( ROOM SERVICE MAY PARTICIPATE) Once Question: . Answer: Yes 03/21/252211 Estimated Needs: Total Energy Estimated Needs in 24 hours (kCal): 1840 kCal Method for Estimating Needs: IBW Total Protein Estimated Needs in 24 Hours (g): 76 g Method for Estimating 24 Hour Protein Needs: IBW, older adult Total Fluid Estimated Needs in 24 Hours (mL): 1840 mL Method for Estimating 24 Hour Fluid Needs: IBW Nutrition Diagnosis Nutrition Diagnosis Patient has Nutrition Diagnosis: Yes Diagnosis Status (1): New Nutrition Diagnosis 1: Altered GI function Related to (1): GI bleed As Evidenced by (1): recurrent melena Nutrition Interventions/Recommendations Nutrition prescription for oral nutrition Nutrition Recommendations: Individualized Nutrition Prescription Provided for : Continue regular diet as tolerated. Nutrition Interventions/Goals: Education Documentation No documentation found. Nutrition Monitoring and Evaluation Food/Nutrient Related History Monitoring Monitoring and Evaluation Plan: Intake / amount of food Intake / Amount of food: Consumes at least 75% or more of meals/snacks/supplements Goal Status: New goal(s) identified Time Spent (min): 45 minutes 03/25/25 at 2:55 PM - HAILEY CLARK RDN, KATELYNN * Prince Larry MD - 03/22/2025 3:22 PM EDTAssociated Order(s): Inpatient consult to Cardiology Inpatient consult to Cardiology Consult performed by: Prince Larry MD Consult ordered by: Kena Asencio MD Inpatient Cardiology Consult Note Reason for consult: DAPT management with recurrent UGIB HPI: Mily Long is a 65 y.o. female with a PMH of CAD (STEMI in 09/2024 s/p recent PCI 10/10 to LAD and PCI 02/04/25 mid LCx) and melena in setting of DAPT following PCI presents for further evaluation of GI bleeding. Per initial H&P, She has had recurrent issues with melena and has underwent EGD, colonoscopy, and capsule endoscopy by OSH providers. She was planned to be seen by GI providers outpatient forfurther small bowel evaluation. Earlier this AM, patient had symptoms of nausea, SOB, weakness, and3 episodes of dark black stools over the past 24 hrs. She denies any chest pain or current SOB or fevers. Given her recurrent symptoms, decided to bring herself to for further evaluation. In regards to her cardiac history, patient presented with STEMI and underwent PPCI 10/10/2024 with FREDDIE to LAD and PTCA of prox diagonal. Patient recently presented again to ED on 02/04/25 for chest pain with elevated troponin to [address]ressions of lateral leads on EKG. 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 Recently admitted 02/18-02/22 with melena, at that time underwent EGD, demonstrating Grade A erosive esophagitis without bleeding, followed by colonoscopy, showing diverticulosis, with full results below. She was again admitted 03/03-03/04 for melena and found to have Hgb of 6.2. She received 2u pRBC transfusion with subsequent stable CBC. Following this, underwent outpatient capsule endoscopy on 03/08/25 however results not readily available per chart review. She reports that she had 3 areas of bleeding noted on the capsule endoscopy. She recently presented to her local ED in [place] with similar symptoms on 03/18 and at that time, was discharged with plan to follow up outpatient for consultation with GI providers for small bowel evaluation. On my evaluation today, she reports that 2 nights ago she began to have nausea and lightheadedness in addition to the melena that has been going on for several weeks. This is what prompted her presentation to hospital. She denies any chest pain or shortness of breath, orthopnea, PND, lower extremity edema. She does state that her initial presentation for the STEMI was also atypical with nausea, but that was much more severe and was associated with frequent vomiting as well. Troponin here was normal and EKG with no acute ischemic changes. All system reviewed and negative unless mentioned above. Cardiac studies: EK/29: NSR, no acute ischemic changes Echo: TTE 09/2024 EF reportedly 50%, G1 DD, severely hypokinetic mid anterior wall and apex and no significant valvular abnormalities Cath: [facility] 02/04/2025 99% stenosis with thrombus in the mid circumflex, underwent successful PCI with FREDDIE to mid circumflex and PTCA alone to the D1 [facility] in 09/2024 LM: Mild luminal irregularities LAD: Proximal 80%, mid 40%, D1 99%, LCx: Mild diffuse disease RCA: Ostial 30 to 40%, proximal mild luminal irregularities PCI to LAD Current Medications[1] Objective: Vitals: 03/22/25 1354 BP: 118/69 Pulse: 82 Resp: 12 Temp: 36 C (96.8 F) SpO2: Exam: GEN: Lying in hospital bed, NAD HEENT: MMM, anicteric sclera CV: RRR, nl S1/2, systolic murmur, no JVD RESP: Breathing comfortably in room air, CTAB ABD: Soft, NTND EXT: WWP, no peripheral edema NEURO: AOx3, no FND PSYCH: appropriate affect Labs/Imaging: Results from last 72 hours Lab Units 03/22/25 0603 03/21/25 1719 TROP[facility]SC[facility] ng/L -- 11 SODIUM mmol/L 141 -- POTASSIUM mmol/L 4.0 -- CO2 mmol/L 22 -- BUN mg/dL 22 -- CREATININE mg/dL 1.26* -- MAGNESIUM mg/dL 2.16 -- PHOSPHORUS mg/dL 3.6 -- Results from last 72 hours Lab Units 03/22/25 0603 WBC AUTO x10*3/uL 7.0 HEMOGLOBIN g/dL 7.2* PLATELETS AUTO x10*3/uL 182 Assessment and Plan: Mily Long is a 65 y.o. female with a PMH of CAD (STEMI in 09/2024 s/p recent PCI 10/10 to LAD and PCI 02/04/25 mid LCx) and melena in setting of DAPT following PCI presents for further evaluation of GI bleeding. # CAD, recent STEMI and NSTEMI with PCI to LAD and LCx # UGIB in s/o DAPT Given that the PCI in January was in the context of acute coronary syndrome, would favor continuing DAPT for 3 months at least. Since she is not HDUS/in hemorrhagic shock, will defer switching P2Y12i to cangrelor, but will recommend switch to clopidogrel for lower bleeding risk. - stop ticagrelor - load with clopidogrel 300 mg once tonight 12 hours after last ticagrelor dose - start clopidogrel 75 mg daily starting tomorrow morning - we will sign off but please page if bleeding is worsening or becoming HDUS necessitating a changein the antiplatelet strategy Thank you for involving us in this patient's care. Recommendations discussed with Dr. Saxena. General Cardiology Consult Pager: [phone] (weekday 7AM-6PM and weekend 7AM-2PM) and other: [phone] EP Consult Pager: [phone] (weekday 7AM-6PM and weekend 7AM-2PM) and other: [phone] CICU Fellow Pager: [phone] anytime EP Device Nurse Pager: [phone] (weekday 7AM-4PM) Advanced Heart Failure Consult Pager: [phone] anytime Prince Larry MD [employer] [1] Current Facility-Administered Medications: aspirin chewable tablet 81 mg, 81 mg, oral, Daily, Chucho Wilson MD, 81 mg at 03/22/25 0844 atorvastatin (Lipitor) tablet 40 mg, 40 mg, oral, Daily, Chucho Wilson MD pantoprazole (Protonix) injection 40 mg, 40 mg, intravenous, BID, Chucho Wilson MD, 40 mg at 03/22/25 0523 polyethylene glycol (Glycolax, Miralax) packet 17 g, 17 g, oral, Daily PRN, Chucho Wilson MD ticagrelor (Brilinta) tablet 90 mg, 90 mg, oral, BID, Chucho Wilson MD, 90 mg at 03/22/25 0844 Cosigned by Dave Saxena MD at 03/22/2025 6:20 PM EDT Associated attestation - Dave Saxena MD - 03/22/2025 6:20 PM EDT I saw and evaluated the patient. I personally obtained the rcoa and critical portions of the historyand physical exam or was physically present for roca and critical portions performed by the resident/fellow. I reviewed the resident/fellow's documentation and discussed the patient with the resident/f etelvina. I agree with the resident/fellow's medical decision making as documented in the note. Dave Saxena MD * Meir Hood MD - 03/22/2025 2:42 PM EDT Gastroenterology Consult Service INITIAL CONSULT Note Department of Gastroenterology & Hepatology Digestive [facility] March 22, 2025 Patient: Mily Long Medical Record: [id number] Reason for Consult: Melena with SOB Requesting Service: Liliana Farr Mily Long is a 65-year-old female with a history of tobacco use disorder, CAD s/p PCI with FREDDIE to the LAD (10/10/2024) and mid left circumflex (02/04/2025), currently on DAPT (Brilinta and ASA), who presents with recurrent melena and concern for ongoing gastrointestinal bleeding. She reports three episodes of dark, tarry stools over the past 24 hours, associated with nausea and generalized weakness. She denies hematemesis, fever, chest pain, or current shortness of breath. She is a current smoker, with a 47 pack-year history (1 pack/day since age 18). Her recent GI history includes multiple admissions for melena. During her 02/18 - 02/22 admission, sheunderwent EGD showing LA Grade A esophagitis without active bleeding and colonoscopy revealing diverticulosis, a 5 mm polyp (removed), and an actively bleeding angiodysplasia in the descending colon,treated with hemostatic clip. On 03/03, she was readmitted with Hgb 6.2 and received 2 units PRBC. On 03/08, she underwent capsule endoscopy, which was formally reviewed during this admission (report scanned 03/22). It showed three distinct episodes of active bleeding localized to the mid to distal jejunum, consistent with small bowel AVMs. On 03/21, she re-presented with another episode of melena. Her hemoglobin was 8.8, and she was transfused 1 unit PRBC and started on IV pantoprazole. Vitals stable. Given her documented colonic and small bowel angiodysplasia, recurrent bleeding, and the need to continue DAPT following recent PCI, she is being evaluated for small bowel bleeding and potential GI intervention. 12 point ROS otherwise negative, unless indicated above. Past Medical History: Medical History[1] Home Medications Prescriptions Prior to Admission[2] Surgical History: Surgical History[3] Allergies: Allergies[4] Social History: Social History Socioeconomic History Marital status: Spouse name: Not on file Number of children: Not on file Years of education: Not on file Highest education level: Not on file Occupational History Not on file Tobacco Use Smoking status: Every Day Current packs/day: 0.50 Average packs/day: 0.5 packs/day for 32.4 years (16.2 ttl pk-yrs) Types: Cigarettes Start date: 1992 Smokeless tobacco: Never Vaping Use Vaping status: Never Used Substance and Sexual Activity Alcohol use: Never Drug use: Never Sexual activity: Defer Other Topics Concern Not on file Social History Narrative Not on file Social Drivers of Health Financial Resource Strain: Low Risk (03/22/2025) Overall Financial Resource Strain (CARDIA) Difficulty of Paying Living Expenses: Not very hard Food Insecurity: No Food Insecurity (03/21/2025) Hunger Vital Sign Worried About Running Out of Food in the Last Year: Never true Ran Out of Food in the Last Year: Never true Transportation Needs: No Transportation Needs (03/22/2025) PRAPARE - Transportation Lack of Transportation (Medical): No Lack of Transportation (Non-Medical): No Physical Activity: Insufficiently Active (03/21/2025) Exercise Vital Sign Days of Exercise per Week: 3 days Minutes of Exercise per Session: 30 min Stress: No Stress Concern Present (03/21/2025) Citizen Of [place] [facility] of Occupational Health - Occupational Stress Questionnaire Feeling of Stress : Not at all Social Connections: Moderately Integrated (03/21/2025) Social Connection and Isolation Panel [NHANES] Frequency of Communication with Friends and Family: Three times a week Frequency of Social Gatherings with Friends and Family: Twice a week Attends Sabianism Services: 1 to 4 times per year Active Member of Clubs or Organizations: No Attends Club or Organization Meetings: Never Marital Status: Intimate Partner Violence: Not At Risk (03/21/2025) Humiliation, Afraid, Rape, and Kick questionnaire Fear of Current or Ex-Partner: No Emotionally Abused: No Physically Abused: No Sexually Abused: No Housing Stability: Low Risk (03/22/2025) Housing Stability Vital Sign Unable to Pay for Housing in the Last Year: No Number of Times Moved in the Last Year: 0 Homeless in the Last Year: No Family History: Family History[5] No family history of GI or liver disease. Objective Vitals: Vitals: 03/22/25 1055 03/22/25 1129 03/22/25 1326 03/22/25 1354 BP: 120/63 110/65 118/69 Pulse: 76 73 82 Resp: 16 16 12 Temp: 36.7 C (98.1 F) 36.2 C (97.2 F) 36 C (96.8 F) TempSrc: Temporal Temporal Temporal SpO2: 95% 96% 100% Weight: Height: Failed to redirect to the Timeline version of the OLSET SmartLink. Intake/Output Summary (Last 24 hours) at 03/22/2025 1442 Last data filed at 03/22/2025 1335 Gross per 24 hour Intake 521.25 ml Output -- Net 521.25 ml Physical Exam Gen: well appearing, in no acute distress HEENT: PEERL, EOMI, sclera anicteric, no LAD Resp: normal work of breathing CV: RRR, no JVD GI: non-tender, non-distended, no rebound or guarding MSK: warm and well perfused, no edema Neuro: AAOx3, no focal deficits Skin: warm and dry, no lesions, no rashes Labs: Lab Results Component Value Date WBC 7.0 03/22/2025 HGB 7.2 (L) 03/22/2025 HCT 24.3 (L) 03/22/2025 MCV 99 03/22/2025 PLT 182 03/22/2025 Lab Results Component Value Date GLUCOSE 90 03/22/2025 CALCIUM 8.6 03/22/2025 NA 141 03/22/2025 K 4.0 03/22/2025 CO2 22 03/22/2025 CL 110 (H) 03/22/2025 BUN 22 03/22/2025 CREATININE 1.26 (H) 03/22/2025 Lab Results Component Value Date ALT 16 03/21/2025 AST 10 03/21/2025 ALKPHOS 75 03/21/2025 BILITOT 0.6 03/21/2025 Lab Results Component Value Date INR 1.0 03/21/2025 PROTIME 11.3 03/21/2025 Imaging: GI procedures: Capsule Endoscopy Report PillCam SB3 [facility] [address] [place] [address] Friend Patient Name: Mily Long ID: [id number] Date: 1960 Gender: Female Capsule ID: [id number] Procedure Date: 03/08/2025 Reason for Referral GI bleed Anemia 64-year-old female with history of recent GI bleeding as well as STEMI (now on Brilinta and aspirin) presenting with palpitations and generalized malaise as well as shortness of breath. She was originally evaluated at [facility] in September [address] elevated myocardial infarctionof the anterolateral wall. She proceeded to get a drug-eluting stent to LAD and PTCA. Heart catheterization showed left main with mild luminal irregularities, proximal LAD with 80% stenosis, mid LAD with 40% stenosis, diagonal1 with 99% stenosis, LCx with mild diffuse disease, distal RCA with 30-40% stenosis, and proximal RCA with mild luminal irregularities. Echocardiogram showed ejection fraction of 50%, stage 1 diastolic dysfunction, and wall motion abnormality with severely hypokinetic mid anterior wall and apex. No significant valvular abnormality was noted. Lipid panel on 10/10/2024 showed total cholesterol: 226, HDL: 37, LDL: 160, and triglycerides: 146. She presented to the emergency room via squad on 02/04/2025 with complaints of chest pain. She described this as pressure and similar to her mild chest. Her EKG demonstrated ST depressions. Patient then underwent a cardiac catheterization on 03/04/2025 which showed 99% stenosis within the mid LAD stent. She underwent a successful drug-eluting stent to the mid circumflex and PTCA alone to the D1. She then presented back to the emergency room on 02/06/2025 with palpitations. She came back to the emergency room yesterday with the chief complaint she notes tonight around 1:30 she woke up and did not feel like she could breathe. She states that she has been feeling short ofbreath. She denies chest pain. She denies hemoptysis, cough, wheezing or pleuritic type symptoms. She states she has been feeling short of breath for the past few days but denies use of any inhalers. Colonoscopy on 03/03/2025 which showed a 5 mm polyp at the splenic flexure which was removed using jumbo cold forceps. She also had large localized area of angioectasias with bleeding in the descending colon. An upper endoscopy and an EGD which showed esophagitis with no bleeding and a medium size hiatal hernia. No varices. Hemoglobin was 4.2 on 02/18 through 02/22 for GI bleeding. She had recently been started on dual antiplatelet therapy. CT scan of chest 02/18 was posed secondary to coronary artery disease. Patient went down to 7.8. Didreceive 2 units of blood with iron transfusions. Gastro passage time: 01m, Small bowel passage time: 4h 2m Endoscopic Interpretation and Findings The capsule entered the stomach at 34 seconds. The capsule entered the duodenum at 1:40:00. There was evidence of fresh red blood in the study. There was the presence in the form of red blood at 1:35:59, 1:43:39 and 1:44:03. The capsule entered the cecum at 4:04:04 Summary and Recommendations Deep enteroscopy Electronically signed by Ricarda Cotto, 03/13/2025 1:22 PM Assessment & Plan 65-year-old female with a history of CAD s/p PCI with FREDDIE to the LAD (10/10/2024) and mid LCx (02/04/2025), currently on DAPT (Brilinta and ASA), with recurrent melena concerning for ongoing GI bleeding. She has a known history of colonic angiodysplasia (descending colon, treated with clip on 02/21/2025) and small bowel bleeding identified on capsule endoscopy (03/08/2025), which showed three active bleeding sites in the mid to distal jejunum. She was recently hospitalized twice for anemia (Hgb stevenson 6.2), most recently presenting on 03/21 with melena and Hgb 8.8. She received 1 unit PRBC and is currently hemodynamically stable. 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 Given her recent PCI, antiplatelet therapy cannot be safely discontinued at this time, increasing the urgency of localizing and treating bleeding sources endoscopically. Recommendation: - single balloon enteroscopy on Tuesday - NPO at 0001 on 03/25/2025 (Tuesday AM) - Continue IV pantoprazole 40 mg BID - Trend CBC daily - Maintain active type and screen - Transfuse to maintain Hgb >8 g/dL Patient seen and discussed with attending, Dr. Kendall Brower. Meir Hood MD, PhD Gastroenterology Fellow, PGY-6 [facility] Division of Gastroenterology and Liver Disease Thank you for the consultation. Gastroenterology will continue to the follow the patient. Please do not hesitate to contact me on Haiku or page [phone] if there are any further questions between the weekday hours of 7 AM - 5 PM. If there is an urgent concern during the weekend, after-hours, or holidays; [place] [phone]. Thank you. SIGNATURE: Meir Hood MD PATIENT NAME: Mily Long DATE: March 22, 2025 [1] History reviewed. No pertinent past medical history. [2] Medications Prior to Admission Medication Sig Dispense Refill Last Dose/Taking atorvastatin (Lipitor) 40 mg tablet Take 1 tablet (40 mg) by mouth once daily. 03/20/2025 Bedtime Brilinta 90 mg tablet Take 1 tablet (90 mg) by mouth 2 times a day. 03/20/2025 Bedtime iron polysaccharides (Nu-Iron,Niferex) 150 mg iron capsule Take 1 capsule (150 mg) by mouth once daily. 03/21/2025 Morning metoprolol succinate XL (Toprol-XL) 25 mg 24 hr tablet Take 1 tablet (25 mg) by mouth once daily. 03/21/2025 Morning nitroglycerin (Nitrostat) 0.[address] 1 tablet (0.4 mg) under the tongue every 5 minutesif needed for chest pain. Unknown pantoprazole (ProtoNix) 40 mg EC tablet Take 1 tablet (40 mg) by mouth once daily in the morning. Take before meals. 03/21/2025 Morning [3] History reviewed. No pertinent surgical history. [4] Allergies Allergen Reactions Sulfa (Sulfonamide Antibiotics) Diarrhea Sulfamethoxazole-Trimethoprim Nausea/vomiting Penicillins Hives and Rash [5] No family history on file. Cosigned by Kendall Brower MD at 03/23/2025 9:58 AM EDT Associated attestation - Kendall Brower MD - 03/23/2025 9:58 AM EDT I saw and evaluated the patient. I personally obtained the roca and critical portions of the historyand physical exam or was physically present for roca and critical portions performed by the resident/fellow. I reviewed the resident/fellow's documentation and discussed the patient with the resident/f etelvina. I agree with the resident/fellow's medical decision making as documented in the note. Patient with acute blood loss anemia and recurrent melena. Recent VCE with blood noted in multiple areas all within the first half of the small bowel transit time. Will plan for single balloon enteroscopy on Tuesday. Kendall Brower MD Division of Gastroenterology and Liver Disease [facility] Work Phone: 1(849) 271-386306-02-2025 History of Present illness Narrative* Christine Osborne MD - 03/25/2025 7:01 AM EDT Mily Long is a 65 y.o. female on day 4 of admission presenting with SOB (shortness of breath). Subjective No acute events overnight. Patient reports two episodes of melena yesterday. Denies abdominal pain,nausea, vomiting, chest pain, or shortness of breath. Objective Last Recorded Vitals BP 125/55 Pulse 82 Temp 36.1 C (97 F) (Temporal) Resp 18 Wt 70.6 kg (155 lb 9.6 oz) SpO2 94% Intake/Output last 3 Shifts: No intake or output data in the 24 hours ending 03/25/25 0701 Admission Weight Weight: 71.7 kg (158 lb) (03/21/25 1218) Daily Weight 03/21/25 : 70.6 kg (155 lb 9.6 oz) Image Results Electrocardiogram, 12-lead PRN ACS symptoms Normal sinus rhythm Normal ECG When compared with ECG of 21-MAR-2025 18:01, No significant change was found Confirmed by Abe Means ([id number]) on 03/22/2025 5:57:51 PM ECG 12 lead Normal sinus rhythm Normal ECG No previous ECGs available See ED provider note for full interpretation and clinical correlation Confirmed by Pilar Borja ([id number]) on 03/22/2025 12:59:17 AM Chest Xray 03/21 IMPRESSION: 1. Findings of bibasilar atelectasis 2. Focal linear opacity noted of the left lower lung which may represent atelectasis with underlying pulmonary nodule not ruled out. Recommend follow-up radiographs in 4 weeks. If this is persistent on the follow-up radiographs, then a CT chest is recommended for additional evaluation. Physical Exam Constitutional: General: She is not in acute distress. Appearance: Normal appearance. HENT: Head: Normocephalic and atraumatic. Mouth/Throat: Mouth: Mucous membranes are moist. Eyes: Extraocular Movements: Extraocular movements intact. Pupils: Pupils are equal, round, and reactive to light. Cardiovascular: Rate and Rhythm: Normal rate and regular rhythm. Heart sounds: Murmur heard. Pulmonary: Effort: Pulmonary effort is normal. No respiratory distress. Breath sounds: Normal breath sounds. Abdominal: General: There is no distension. Palpations: Abdomen is soft. Tenderness: There is no abdominal tenderness. Musculoskeletal: Right lower leg: No edema. Left lower leg: No edema. Skin: General: Skin is warm and dry. Neurological: General: No focal deficit present. Mental Status: She is alert and oriented to person, place, and time. Psychiatric: Mood and Affect: Mood normal. Relevant Results Scheduled medications Scheduled Medications[1] Continuous medications Continuous Medications[2] PRN medications PRN Medications[3] Results for orders placed or performed during the hospital encounter of 03/21/25 (from the past 24 hours) CBC and Auto Differential Result Value Ref Range WBC 8.8 4.4 - 11.3 x10*3/uL nRBC 0.0 0.0 - 0.0 /100 WBCs RBC 3.25 (L) 4.00 - 5.20 x10*6/uL Hemoglobin 9.4 (L) 12.0 - 16.0 g/dL Hematocrit 31.8 (L) 36.0 - 46.0 % MCV 98 80 - 100 fL MCH 28.9 26.0 - 34.0 pg MCHC 29.6 (L) 32.0 - 36.0 g/dL RDW 17.5 (H) 11.5 - 14.5 % Platelets 203 150 - 450 x10*3/uL Neutrophils % 76.7 40.0 - 80.0 % Immature Granulocytes %, Automated 0.6 0.0 - 0.9 % Lymphocytes % 14.6 13.0 - 44.0 % Monocytes % 4.2 2.0 - 10.0 % Eosinophils % 2.5 0.0 - 6.0 % Basophils % 1.4 0.0 - 2.0 % Neutrophils Absolute 6.78 1.20 - 7.70 x10*3/uL Immature Granulocytes Absolute, Automated 0.05 0.00 - 0.70 x10*3/uL Lymphocytes Absolute 1.29 1.20 - 4.80 x10*3/uL Monocytes Absolute 0.37 0.10 - 1.00 x10*3/uL Eosinophils Absolute 0.22 0.00 - 0.70 x10*3/uL Basophils Absolute 0.12 (H) 0.00 - 0.10 x10*3/uL Renal function panel Result Value Ref Range Glucose 122 (H) 74 - 99 mg/dL Sodium 141 136 - 145 mmol/L Potassium 3.7 3.5 - 5.3 mmol/L Chloride 109 (H) 98 - 107 mmol/L Bicarbonate 24 21 - 32 mmol/L Anion Gap 12 10 - 20 mmol/L Urea Nitrogen 20 6 - 23 mg/dL Creatinine 1.02 0.50 - 1.05 mg/dL eGFR 60 (L) >60 mL/min/1.73m*2 Calcium 8.8 8.6 - 10.6 mg/dL Phosphorus 2.8 2.5 - 4.9 mg/dL Albumin 3.9 3.4 - 5.0 g/dL Magnesium Result Value Ref Range Magnesium 2.17 1.60 - 2.40 mg/dL Assessment & Plan GI bleed Mily Long is a 65 y.o. female with history of CAD (s/p recent PCI 10/16 and PCI 02/04/25 withDES to mild L circumflex) and melena in setting of DAPT following PCI presents for further evaluation of GI bleeding. Switched from ticagrelor to clopidgrel. Prior capsule endoscopy with evidence of bright red blood in small bowel. Planned for single balloon enteroscopy today 03/25. Updates 03/25: - single balloon enteroscopy today - Hgb stable at 9.2 - Two episodes of melena yesterday per patient #Melena #Anemia #Concern for GI bleeding :: Recent EGD/colonoscopy with impression included above :: Recent capsule endoscopy, noted with 3 areas of bleeding in small bowel however, procedure report not readily available at this time :: Melena in setting of recent cardiac PCI and FREDDIE with DAPT - Given recent PCI on 02/05/24 and in 09/2024, will continue DAPT for now. Cardiology consulted, recswitch from ticagrelor to clopidogrel - Daily CBC - Maintain active T+S - Hgb goal > 8 in setting of recent NV with FREDDIE - Protonix 40mg IV BID - 2 large bore IV if possible -single balloon enteroscopy today 03/25 #STEMI s/p PCI 10/10/2024 and 01/2025 :: PCI 10/10/2024 with L main with mild luminal irregularities, prox LAD with 80% stenosis, mid LADw 40% stenosis, diagonal 1 w 99% stenosis, Lcx with mild diffuse disease, ostial RCA with 30-40% stenosis, prox RCA with mild luminal irregularities. Underwent FREDDIE to LAD and PTCA of prox diagonal :: PCI 01/2025 with FREDDIE placed to mid L circumflex and PTCA performed to D1 artery :: Echocardiogram 02/19/25: EF 65%. No evidence of diastolic dysfunction, moderate (2+) mitral valveinsufficiency :: Troponin negative at 11 on presentation - No chest pain per patient - Continue DAPT with ASA + clopidogrel per cards (switched from home ticagrelor) - Hold metoprolol in setting of GI bleeding #Iron deficiency anemia :: iron studies with iron 20, % sat 9 - s/p IV iron sucrose x3 days #C/f possible lung nodule ::chest xray 03/21: Focal linear opacity noted of the left lower lung which mayrepresent atelectasiswith underlying pulmonary nodule not ruled out. Recommend follow-up radiographs in 4 weeks. If thisis persistent on the follow- up radiographs, then a CT chest is recommended for additional evaluation. - Will need follow up xray in 4 weeks on discharge and coordinated follow up of results F: PRN E: replete PRN N: regular A: 24 G PIV left forearm DVT ppx: SCDs, no chemoprophylaxis I/s/o c/f GIB GI ppx: PPI IV BID Code status: Full Surrogate: Haroon [phone] Contact for updates: Marcin Long (daughter in law) [phone] Christine Osborne MD PGY1 Neurology [1] aspirin, 81 mg, oral, Daily atorvastatin, 40 mg, oral, Daily clopidogrel, 75 mg, oral, Daily pantoprazole, 40 mg, intravenous, BID [2] [3] PRN medications: polyethylene glycol Cosigned by Kena Asencio MD at 03/25/2025 3:14 PM EDT Associated attestation - Kena Asencio MD - 03/25/2025 3:14 PM EDT Attending Physician Attestation I saw and evaluated the patient. I personally obtained the roca and critical portions of the historyand physical exam or was physically present for roca and critical portions performed by the resident. I reviewed the resident's documentation and discussed the patient with the resident. I agree with the documentation as detailed in the note unless stated otherwise in this attestation. Patient seen and examined at bedside. Pt doing well today. Had 2 melanotic stools overnight. Hg remains stable. Plan for small balloon enteroscopy today. Dispo: Level of MDM: High The total time spent on the floor rendering services for this patient and coordinating the patient's care (obtaining/reviewing additional history, performing medically appropriate exam and/or evaluation, reviewing the electronic chart, labs, imaging, independently interpreting the results and communicating and discussing with medical teams, counseling and educating the patient, discussing with family members, ordering medications, tests and/or procedures, coordinating care, and documentation) was 45 minutes. The patient/family had opportunity to ask questions. All questions were answered to the best of my ability. * Inocencio Perry MD - 03/24/2025 8:04 AM EDT Mily Long is a 65 y.o. female on day 3 of admission presenting with SOB (shortness of breath). Subjective NAEO. Patient seen at bedside this morning and states she is feeling well. Does report one black bowel movement last night. States it was her only bowel movement yesterday and she has not had one this morning either. Denies abdominal pain, nausea, vomiting. Objective Physical Exam General: pleasant, in NAD HEENT: normocephalic, atraumatic CV: heart regular rate with loud systolic murmur best heard at R sternal border Resp: lungs clear to auscultation bilaterally Abd: soft, nondistended, nontender Ext: no peripheral edema Neuro: grossly nonfocal, speech clear Psych: appropriate affect Last Recorded Vitals Blood pressure 113/50, pulse 83, temperature 36.2 C (97.2 F), temperature source Temporal, resp. rate 17, height 1.702 m (5' 7.01), weight 70.6 kg (155 lb 9.6 oz), SpO2 93%. Intake/Output last 3 Shifts: No intake/output data recorded. Relevant Results Scheduled medications Scheduled Medications[1] Continuous medications Continuous Medications[2] PRN medications PRN Medications[3] Results for orders placed or performed during the hospital encounter of 03/21/25 (from the past 24 hours) CBC and Auto Differential Result Value Ref Range WBC 7.5 4.4 - 11.3 x10*3/uL nRBC 0.0 0.0 - 0.0 /100 WBCs RBC 3.22 (L) 4.00 - 5.20 x10*6/uL Hemoglobin 9.6 (L) 12.0 - 16.0 g/dL Hematocrit 30.5 (L) 36.0 - 46.0 % MCV 95 80 - 100 fL MCH 29.8 26.0 - 34.0 pg MCHC 31.5 (L) 32.0 - 36.0 g/dL RDW 17.5 (H) 11.5 - 14.5 % Platelets 206 150 - 450 x10*3/uL Neutrophils % 66.7 40.0 - 80.0 % Immature Granulocytes %, Automated 0.3 0.0 - 0.9 % Lymphocytes % 22.0 13.0 - 44.0 % Monocytes % 6.1 2.0 - 10.0 % Eosinophils % 3.3 0.0 - 6.0 % Basophils % 1.6 0.0 - 2.0 % Neutrophils Absolute 4.99 1.20 - 7.70 x10*3/uL Immature Granulocytes Absolute, Automated 0.02 0.00 - 0.70 x10*3/uL Lymphocytes Absolute 1.65 1.20 - 4.80 x10*3/uL Monocytes Absolute 0.46 0.10 - 1.00 x10*3/uL Eosinophils Absolute 0.25 0.00 - 0.70 x10*3/uL Basophils Absolute 0.12 (H) 0.00 - 0.10 x10*3/uL CBC and Auto Differential Result Value Ref Range WBC 8.8 4.4 - 11.3 x10*3/uL nRBC 0.0 0.0 - 0.0 /100 WBCs RBC 3.25 (L) 4.00 - 5.20 x10*6/uL Hemoglobin 9.4 (L) 12.0 - 16.0 g/dL Hematocrit 31.8 (L) 36.0 - 46.0 % MCV 98 80 - 100 fL MCH 28.9 26.0 - 34.0 pg MCHC 29.6 (L) 32.0 - 36.0 g/dL RDW 17.5 (H) 11.5 - 14.5 % Platelets 203 150 - 450 x10*3/uL Neutrophils % 76.7 40.0 - 80.0 % Immature Granulocytes %, Automated 0.6 0.0 - 0.9 % Lymphocytes % 14.6 13.0 - 44.0 % Monocytes % 4.2 2.0 - 10.0 % Eosinophils % 2.5 0.0 - 6.0 % Basophils % 1.4 0.0 - 2.0 % Neutrophils Absolute 6.78 1.20 - 7.70 x10*3/uL Immature Granulocytes Absolute, Automated 0.05 0.00 - 0.70 x10*3/uL Lymphocytes Absolute 1.29 1.20 - 4.80 x10*3/uL Monocytes Absolute 0.37 0.10 - 1.00 x10*3/uL Eosinophils Absolute 0.22 0.00 - 0.70 x10*3/uL Basophils Absolute 0.12 (H) 0.00 - 0.10 x10*3/uL Assessment & Plan Mily Long is a 65 y.o. female with history of CAD (s/p recent PCI 10/16 and PCI 02/04/25 withDES to mild L circumflex) and melena in setting of DAPT following PCI presents for further evaluation of GI bleeding. Updates 03/24/25: -continue plavix -single balloon enteroscopy tomorrow -NPO midnight -continue IV pantoprazole 40mg BID #Melena #Anemia #Concern for GI bleeding :: Recent EGD/colonoscopy with impression included above :: Recent capsule endoscopy, noted with 3 areas of bleeding however, procedure report not readilyavailable at this time :: Melena in setting of recent cardiac PCI and FREDDIE with DAPT Plan: - Given recent PCI on 02/05/24 and in 09/2024, will continue DAPT for now. Cardiology consulted, recswitch from ticagrelor to clopidogrel - CBC BID - Maintain active T+S - Hgb goal > 8 in setting of recent NV with FREDDIE - Protonix 40mg IV BID - 2 large bore IV if possible -single balloon enteroscopy on 03/25 -NPO midnight #STEMI s/p PCI 10/10/2024 and 01/2025 :: PCI 10/10/2024 with L main with mild luminal irregularities, prox LAD with 80% stenosis, mid LADw 40% stenosis, diagonal 1 w 99% stenosis, Lcx with mild diffuse disease, ostial RCA with 30-40% stenosis, prox RCA with mild luminal irregularities. Underwent FREDDIE to LAD and PTCA of prox diagonal :: PCI 01/2025 with FREDDIE placed to mid L circumflex and PTCA performed to D1 artery :: Echocardiogram 02/19/25: The estimated ejection fraction is 65 %. No evidence for diastolic dysfunction. Moderate (2+) mitral valve insufficiency. :: Troponin negative at 11 on presentation Plan: - No evidence of chest pain currently per patient - Continue DAPT with ASA + clopidogrel per cards (switch from home ticagrelor) - Hold metoprolol in setting of GI bleeding #iron deficiency anemia :: iron studies with iron 20, % sat 9 Plan: - IV iron sucrose x3 days F: PRN E: replete PRN N: regular A: pIV DVT ppx: SCDs, no chemoprophylaxis I/s/o c/f GIB GI ppx: PPI IV BID Code status: Full Surrogate: Haroon [phone] Inocencio Perry MD [1] aspirin, 81 mg, oral, Daily atorvastatin, 40 mg, oral, Daily clopidogrel, 75 mg, oral, Daily iron sucrose, 200 mg, intravenous, Daily pantoprazole, 40 mg, intravenous, BID [2] [3] PRN medications: polyethylene glycol Cosigned by Kena Asencio MD at 03/24/2025 11:03 AM EDT Associated attestation - Kena Asencio MD - 03/24/2025 11:03 AM EDT Attending Physician Attestation I saw and evaluated the patient. I personally obtained the roca and critical portions of the historyand physical exam or was physically present for roca and critical portions performed by the resident. I reviewed the resident's documentation and discussed the patient with the resident. I agree with the documentation as detailed in the note unless stated otherwise in this attestation. Patient seen and examined at bedside. Pt continues to do well; 1 melanotic stool overnight. Hg continues to remain stable. Plan for SB enteroscopy on Mon. NPO at [place]. Will need to remain on DAPT givenrecent stents. C/w IV iron. Dispo: pending GI procedure; anticipate to home Level of MDM: High The total time spent on the floor rendering services for this patient and coordinating the patient's care (obtaining/reviewing additional history, performing medically appropriate exam and/or evaluation, reviewing the electronic chart, labs, imaging, independently interpreting the results and communicating and discussing with medical teams, counseling and educating the patient, discussing with family members, ordering medications, tests and/or procedures, coordinating care, and documentation) was 40 minutes. The patient/family had opportunity to ask questions. All questions were answered to the best of my ability. * Courtney Hudson - 03/23/2025 2:46 PM EDT Mily Long is a 65 y.o. female on day 2 of admission presenting with SOB (shortness of breath). Time correction--- Discussed IMM letter with patient at 246pm. Explained purpose and requested patient e-sign and return. IMM sent to phone and email. Pt verbalized understanding. She is attempting to sign from cell phone. Courtney Hudson RN [facility] weekend epic messenger * Laurie Arceo MD - 03/23/2025 7:21 AM EDT Mily Long is a 65 y.o. female on day 2 of admission presenting with SOB (shortness of breath). Subjective Pt seen at bedside this morning. Feels well. Bowel movement was dark this morning. Objective Physical Exam General: pleasant, in NAD HEENT: normocephalic, atraumatic CV: heart regular rate with loud systolic murmur best heard at R sternal border Resp: lungs clear to auscultation bilaterally Abd: soft, nondistended, nontender Ext: no peripheral edema Neuro: grossly nonfocal, speech clear Psych: appropriate affect Last Recorded Vitals Blood pressure 105/67, pulse 77, temperature 36.5 C (97.7 F), resp. rate 18, height 1.702 m (5' 7.01), weight 70.6 kg (155 lb 9.6 oz), SpO2 95%. Intake/Output last 3 Shifts: I/O last 3 completed shifts: In: 521.3 (7.4 mL/kg) [P.O.:140; Blood:381.3] Out: - (0 mL/kg) Weight: 70.6 kg Relevant Results Scheduled medications Scheduled Medications[1] Continuous medications Continuous Medications[2] PRN medications PRN Medications[3] Results for orders placed or performed during the hospital encounter of 03/21/25 (from the past 24 hours) CBC and Auto Differential Result Value Ref Range WBC 8.9 4.4 - 11.3 x10*3/uL nRBC 0.0 0.0 - 0.0 /100 WBCs RBC 3.24 (L) 4.00 - 5.20 x10*6/uL Hemoglobin 9.5 (L) 12.0 - 16.0 g/dL Hematocrit 31.5 (L) 36.0 - 46.0 % MCV 97 80 - 100 fL MCH 29.3 26.0 - 34.0 pg MCHC 30.2 (L) 32.0 - 36.0 g/dL RDW 17.6 (H) 11.5 - 14.5 % Platelets 201 150 - 450 x10*3/uL Neutrophils % 74.2 40.0 - 80.0 % Immature Granulocytes %, Automated 0.4 0.0 - 0.9 % Lymphocytes % 16.3 13.0 - 44.0 % Monocytes % 5.5 2.0 - 10.0 % Eosinophils % 1.8 0.0 - 6.0 % Basophils % 1.8 0.0 - 2.0 % Neutrophils Absolute 6.61 1.20 - 7.70 x10*3/uL Immature Granulocytes Absolute, Automated 0.04 0.00 - 0.70 x10*3/uL Lymphocytes Absolute 1.45 1.20 - 4.80 x10*3/uL Monocytes Absolute 0.49 0.10 - 1.00 x10*3/uL Eosinophils Absolute 0.16 0.00 - 0.70 x10*3/uL Basophils Absolute 0.16 (H) 0.00 - 0.10 x10*3/uL CBC and Auto Differential Result Value Ref Range WBC 7.3 4.4 - 11.3 x10*3/uL nRBC 0.0 0.0 - 0.0 /100 WBCs RBC 3.12 (L) 4.00 - 5.20 x10*6/uL Hemoglobin 9.3 (L) 12.0 - 16.0 g/dL Hematocrit 29.7 (L) 36.0 - 46.0 % MCV 95 80 - 100 fL MCH 29.8 26.0 - 34.0 pg MCHC 31.3 (L) 32.0 - 36.0 g/dL RDW 17.9 (H) 11.5 - 14.5 % Platelets 178 150 - 450 x10*3/uL Neutrophils % 69.5 40.0 - 80.0 % Immature Granulocytes %, Automated 0.4 0.0 - 0.9 % Lymphocytes % 18.2 13.0 - 44.0 % Monocytes % 6.7 2.0 - 10.0 % Eosinophils % 3.7 0.0 - 6.0 % Basophils % 1.5 0.0 - 2.0 % Neutrophils Absolute 5.05 1.20 - 7.70 x10*3/uL Immature Granulocytes Absolute, Automated 0.03 0.00 - 0.70 x10*3/uL Lymphocytes Absolute 1.32 1.20 - 4.80 x10*3/uL Monocytes Absolute 0.49 0.10 - 1.00 x10*3/uL Eosinophils Absolute 0.27 0.00 - 0.70 x10*3/uL Basophils Absolute 0.11 (H) 0.00 - 0.10 x10*3/uL Renal function panel Result Value Ref Range Glucose 98 74 - 99 mg/dL Sodium 138 136 - 145 mmol/L Potassium 3.8 3.5 - 5.3 mmol/L Chloride 108 (H) 98 - 107 mmol/L Bicarbonate 22 21 - 32 mmol/L Anion Gap 12 10 - 20 mmol/L Urea Nitrogen 24 (H) 6 - 23 mg/dL Creatinine 0.99 0.50 - 1.05 mg/dL eGFR 63 >60 mL/min/1.73m*2 Calcium 8.5 (L) 8.6 - 10.6 mg/dL Phosphorus 3.6 2.5 - 4.9 mg/dL Albumin 3.7 3.4 - 5.0 g/dL Magnesium Result Value Ref Range Magnesium 2.11 1.60 - 2.40 mg/dL Assessment & Plan SOB (shortness of breath) Mily Long is a 65 y.o. female with history of CAD (s/p recent PCI 10/16 and PCI 02/04/25 withDES to mild L circumflex) and melena in setting of DAPT following PCI presents for further evaluation of GI bleeding. 03/23 Updates: - per cards rec, switch ticagrelor to clopidogrel #Melena #Anemia #Concern for GI bleeding :: Recent EGD/colonoscopy with impression included above :: Recent capsule endoscopy, noted with 3 areas of bleeding however, procedure report not readilyavailable at this time :: Melena in setting of recent cardiac PCI and FREDDIE with DAPT Plan: - Given recent PCI on 02/05/24 and in 09/2024, will continue DAPT for now. Cardiology consulted, recswitch from ticagrelor to clopidogrel - CBC BID - Maintain active T+S - Hgb goal > 8 in setting of recent NV with FREDDIE - Protonix 40mg IV BID - 2 large bore IV if possible - pending scope 03/25 #STEMI s/p PCI 10/10/2024 and 01/2025 :: PCI 10/10/2024 with L main with mild luminal irregularities, prox LAD with 80% stenosis, mid LADw 40% stenosis, diagonal 1 w 99% stenosis, Lcx with mild diffuse disease, ostial RCA with 30-40% stenosis, prox RCA with mild luminal irregularities. Underwent FREDDIE to LAD and PTCA of prox diagonal :: PCI 01/2025 with FREDDIE placed to mid L circumflex and PTCA performed to D1 artery :: Echocardiogram 02/19/25: The estimated ejection fraction is 65 %. No evidence for diastolic dysfunction. Moderate (2+) mitral valve insufficiency. :: Troponin negative at 11 on presentation Plan: - No evidence of chest pain currently per patient - Continue DAPT with ASA + clopidogrel per cards (switch from home ticagrelor) - Hold metoprolol in setting of GI bleeding #iron deficiency anemia :: iron studies with iron 20, % sat 9 - IV iron sucrose x3 days F: PRN E: replete PRN N: regular A: pIV DVT ppx: SCDs, no chemoprophylaxis I/s/o c/f GIB GI ppx: PPI IV BID Code status: Full Surrogate: Haroon [phone] Shortness of breath Laurie Arceo MD [1] aspirin, 81 mg, oral, Daily atorvastatin, 40 mg, oral, Daily clopidogrel, 75 mg, oral, Daily pantoprazole, 40 mg, intravenous, BID [2] [3] PRN medications: polyethylene glycol Cosigned by Kena Asencio MD at 03/23/2025 2:40 PM EDT Associated attestation - Kena Asencio MD - 03/23/2025 2:40 PM EDT Attending Physician Attestation I saw and evaluated the patient. I personally obtained the roca and critical portions of the historyand physical exam or was physically present for roca and critical portions performed by the resident. I reviewed the resident's documentation and discussed the patient with the resident. I agree with the documentation as detailed in the note unless stated otherwise in this attestation. Patient seen and examined at bedside. Pt doing well today; states she is still having dark stools this AM. Hg remains stable. Plan for SB enteroscopy on Mon. Cards recommended swicting Brilinta to Plavix for less bleeding risk. Will need to remain on DAPT given recent stents. Will start IV iron today given RICHARD. Dispo: pending GI procedure; anticipate to home Level of MDM: High The total time spent on the floor rendering services for this patient and coordinating the patient's care (obtaining/reviewing additional history, performing medically appropriate exam and/or evaluation, reviewing the electronic chart, labs, imaging, independently interpreting the results and communicating and discussing with medical teams, counseling and educating the patient, discussing with family members, ordering medications, tests and/or procedures, coordinating care, and documentation) was 45 minutes. The patient/family had opportunity to ask questions. All questions were answered to the best of my ability. * Leyla Solis RN - 03/22/2025 10:40 AM EDT 03/22/25 1039 Discharge Planning Living Arrangements Spouse/significant other Support Systems Spouse/significant other;Children Assistance Needed Patient independent with ADL's Type of Residence Private residence Number of Stairs to Enter Residence 2 Number of Stairs Within Residence 0 Do you have animals or pets at home? No Who is requesting discharge planning? Provider Home or Post Acute Services None Expected Discharge Disposition Home Does the patient need discharge transport arranged? No Financial Resource Strain How hard is it for you to pay for the very basics like food, housing, medical care, and heating? Not very Housing Stability In the last 12 months, was there a time when you were not able to pay the mortgage or rent on time?N At any time in the past 12 months, were you homeless or living in a custodial (including now)? N Transportation Needs In the past 12 months, has lack of transportation kept you from medical appointments or from getting medications? no In the past 12 months, has lack of transportation kept you from meetings, work, or from getting things needed for daily living? No Patient Choice Patient / Family choosing to utilize agency / facility established prior to hospitalization No Assessment Note: Met with patient and Introduced myself as primary care physician and member of the Care Transitions team for discharge planning. Patient lives with spouse she is independent with ADL's. Patient demographics and contact information verified. Pt feels safe at home. Patient have no further questions or concerns at this time. Transportation: Patient family transport to appt she will have a ride home Pharmacy: [facility] DME: None Previous home care: None Falls: No recent falls PCP: Florin Braun DO last seen a week ago Dialysis: Denies Diabetic: Denies Transitional Care Coordination Progress Note: Patient discussed during interdisciplinary rounds. Team members present: Plan per Medical/Surgical team: Patient admitted for GI bleed received blood possibe GI procedure and c/s with Cardiac Payor: [facility] Discharge disposition: Home no needs Potential Barriers: None ADOD: 03/26 [facility] will continue to follow and update the plan as warranted. TINA Sauceda-wool hat finisher Coordinator ([facility]) [phone] ext [phone] * Deondre Newell, - 03/22/2025 6:57 AM EDT Images from the original note were not included. Internal Medicine Daily Progress Note Subjective Interval events: NAONE. Patient brought hard copies of her capsule endoscopy. Denies cp, sob, n/v/c/d. No bowel movements since admission. Reports periodic epigastric pressure that comes and goes. Objective Vitals: Visit Vitals BP 121/55 Pulse 79 Temp 36.1 C (97 F) (Temporal) Resp 18 Intake/Output Summary (Last 24 hours) at 03/22/2025 0739 Last data filed at 03/22/2025 0034 Gross per 24 hour Intake 140 ml Output -- Net 140 ml Physical exam: General: awake, alert, conversant, appears stated age HEENT: pupils equal and round, no scleral icterus Skin: no suspect lesions or rashes noted on visible skin Chest: ctab, normal respiratory effort, not on supplemental oxygen Cardiac: regular rate, normal s1, s2, no M/R/G Abdomen: soft, ND, NT, no involuntary guarding : no flank pain or indwelling urinary catheter EXT: no peripheral edema, no asymmetry noted MSK: no focal joint swelling noted Neuro: AOx4, moving all limbs spontaneously, follows commands. CN II-XII intact. Psych: coherent thought process, appropriate mood and affect Medications: Scheduled Medications[1] Continuous Medications[2] PRN Medications[3] Labs: Results from last 72 hours Lab Units 03/22/25 0603 03/21/25 1437 WBC AUTO x10*3/uL 7.0 9.8 HEMOGLOBIN g/dL 7.2* 8.8* HEMATOCRIT % 24.3* 27.9* PLATELETS AUTO x10*3/uL 182 252 INR -- 1.0 SODIUM mmol/L 141 140 POTASSIUM mmol/L 4.0 4.1 CHLORIDE mmol/L 110* 107 CO2 mmol/L 22 24 BUN mg/dL 22 18 CREATININE mg/dL 1.26* 1.05 GLUCOSE mg/dL 90 90 CALCIUM mg/dL 8.6 10.1 MAGNESIUM mg/dL 2.16 -- PHOSPHORUS mg/dL 3.6 -- ALBUMIN g/dL 3.2* 4.5 ALK PHOS U/L -- 75 ALT U/L -- 16 AST U/L -- 10 BILIRUBIN TOTAL mg/dL -- 0.6 Imaging: Imaging XR chest 1 view Result Date: 03/21/2025 1. Findings of bibasilar atelectasis 2. Focal linear opacity noted of the left lower lung which mayrepresent atelectasis with underlying pulmonary nodule not ruled out. Recommend follow-up radiographs in 4 weeks. If this is persistent on the follow-up radiographs, then a CT chest is recommended for additional evaluation. MACRO: Critical Finding: See findings. Notification was initiated on 03/21/2025 at 5:10 pm by Dorcas Roman. (-YCF-) Signed by: Dorcas Roman 03/21/2025 5:10 PM Dictation workstation: [id number] Cardiology, Vascular, and Other Imaging ECG 12 lead Result Date: 03/22/2025 Normal sinus rhythm Normal ECG No previous ECGs available See ED provider note for full interpretation and clinical correlation Confirmed by Pilar Borja ([id number]) on 03/22/2025 12:59:17 AM Endoscopic history: EGD 02/19/25: - LA Grade A erosive esophagitis with no bleeding. - Medium-sized hiatal hernia. - No gross lesions in the entire examined duodenum. - No specimens collected. Colonoscopy 02/21/25: Impression: - Diverticulosis in the recto-sigmoid colon and in the sigmoid colon. - One 5 mm polyp at the splenic flexure, removed with a jumbo cold forceps. Resected and retrieved. - The examined portion of the ileum was normal. - Non-bleeding internal hemorrhoids. - The examination was otherwise normal on direct and retroflexion views. Of note, report also describes single large localized angiodysplastic lesion with bleeding found in the descending colon. For hemostasis, one hemostatic clip was successfully placed. Capsule endoscopy report 03/18/25: Assessment and Plan: Mily Long is a 65 y.o. female with history of CAD (s/p recent PCI 10/16 and PCI 02/04/25 withDES to mild L circumflex) and multiple episodes of melena in setting of DAPT following PCI presentsfor further evaluation of GI bleeding. Third episode in last month. EGD w/out evidence of bleeding.Colonoscopy w/out evidence of bleeding, + diverticulosis. Per patient, underwent capsule endoscopy 03/08 that found 3 sources of bleeding, please see attached. Updates 03/22/25: - +/- Enteroscopy to evaluate and treat sources of bleeding in duodenum. Took AKA and brilenta thisAM - CTM cbc BID - Pending Cardiology Recs #Melena #Anemia #Concern for GI bleeding :: Recent EGD/colonoscopy with impression included above :: Recent capsule endoscopy, noted with 3 areas of bleeding however, procedure report not readilyavailable at this time :: Melena in setting of recent cardiac PCI and FREDDIE with DAPT Plan: - Given recent PCI on 02/05/24 and in 09/2024, will continue DAPT for now. Pending Cardiology consult and recs - CBC BID - Maintain active T+S - Hgb goal > 8 in setting of recent NV with FREDDIE - Protonix 40mg IV BID - Hold PO iron supplementation - 2 large bore IV if possible #STEMI s/p PCI 10/10/2024 and 01/2025 :: PCI 10/10/2024 with L main with mild luminal irregularities, prox LAD with 80% stenosis, mid LADw 40% stenosis, diagonal 1 w 99% stenosis, Lcx with mild diffuse disease, ostial RCA with 30-40% stenosis, prox RCA with mild luminal irregularities. Underwent FREDDIE to LAD and PTCA of prox diagonal :: PCI 01/2025 with FREDDIE placed to mid L circumflex and PTCA performed to D1 artery :: Echocardiogram 02/19/25: The estimated ejection fraction is 65 %. No evidence for diastolic dysfunction. Moderate (2+) mitral valve insufficiency. :: Troponin negative at 11 on presentation Plan: - No evidence of chest pain currently per patient - Continue DAPT for now - Hold metoprolol in setting of GI bleeding F: PRN E: replete PRN N: NPO at midnight A: pIV DVT ppx: DAPT for recent PCI GI ppx: PPI IV BID Code status: Full Surrogate: Haroon [phone] Patient and plan discussed with attending physician. Deondre Newell DO PGY-1 [1] aspirin, 81 mg, oral, Daily atorvastatin, 40 mg, oral, Daily pantoprazole, 40 mg, intravenous, BID ticagrelor, 90 mg, oral, BID [2] [3] PRN medications: polyethylene glycol Cosigned by Kena Asencio MD at 03/23/2025 2:44 PM EDT Associated attestation - Kena Asencio MD - 03/23/2025 2:44 PM EDT I saw and evaluated the patient. I personally obtained the roca and critical portions of the historyand physical exam or was physically present for roca and critical portions performed by the resident/fellow. I reviewed the resident/fellow's documentation and discussed the patient with the resident/f etelvina. I agree with the resident/fellow's medical decision making as documented in the note. -plan for SB enteroscopy on Mon; iron studies; c/w IV PPI BID; trend Hg -consult cards for recurrent GI bleeding in setting of DAPT following PCI -trend Cr I spent 60 minutes in the professional and overall care of this patient. * Fabiano Bang - 03/21/2025 10:05 PM EDT Pharmacy Medication History Review Mily Long is a 65 y.o. female admitted for SOB (shortness of breath). Pharmacy reviewed the patient's [id number] medications and allergies for accuracy. Medications ADDED: All medications listed below Medications CHANGED: None Medications REMOVED: None The list below reflects the updated [employer] list. Prior to Admission Medications Prescriptions Last Dose Informant Brilinta 90 mg tablet 03/20/2025 Bedtime Self Sig: Take 1 tablet (90 mg) by mouth 2 times a day. atorvastatin (Lipitor) 40 mg tablet 03/20/2025 Bedtime Self Sig: Take 1 tablet (40 mg) by mouth once daily. iron polysaccharides (Nu-Iron,Niferex) 150 mg iron capsule 03/21/2025 Morning Self Sig: Take 1 capsule (150 mg) by mouth once daily. metoprolol succinate XL (Toprol-XL) 25 mg 24 hr tablet 03/21/2025 Morning Self Sig: Take 1 tablet (25 mg) by mouth once daily. nitroglycerin (Nitrostat) 0.4 mg SL tablet Unknown Self Sig: Place 1 tablet (0.4 mg) under the tongue every 5 minutes if needed for chest pain. pantoprazole (ProtoNix) 40 mg EC tablet 03/21/2025 Morning Self Sig: Take 1 tablet (40 mg) by mouth once daily in the morning. Take before meals. Facility-Administered Medications: None The list below reflects the updated allergy list. Please review each documented allergy for additional clarification and justification. Allergies Reviewed by Fabiano Bang on 03/21/2025 Severity Reactions Comments Sulfa (sulfonamide Antibiotics) Not Specified Diarrhea Sulfamethoxazole-trimethoprim Not Specified Nausea/vomiting Penicillins Low Hives, Rash Patient accepts M2B at discharge. Sources: Chart review Patient interview Epic dispense history Epic allergy list OARRS ( none ) Additional Comments: Patient knows medication name dose and frequency Patient recently dispensed DOXYCYCLINE 100 MG 03/08/2025 ds: 7 qty: 14 however patient self discontinued this medication patient states that primary is aware Patient hasn't Lisinopril 2.5 mg in 1 month patient states that her blood pressure is too low patient states that primary is aware Patient states that she has supply of nitroglycerin 0.4 mg however patient states that she hasn't taken Fabiano Bang Integrated Logistics Operations Manager 03/21/25 Secure Chat preferred If no response call [id number] or [employer] Rec Cosigned by Prince Bechkam RP at 03/22/2025 5:13 AM EDT * Keanu Agee MD - 03/21/2025 8:21 PM EDT Mily Long is a 65 y.o. female STEMI status post PCI with drug-eluting stent to LAD and PTCA on September 2024 now on Brilinta and aspirin complicated by GI bleed now presenting with melanotic stool as well as shortness of breath. Patient reports she has been getting blood transfusions regularly at [place] emergency department. This patient was signed out to me and during the time of signoutpatient was pending CBC. Patient CBC showed hemoglobin of 8.8 which is around patient baseline. There is low concern for gross hematuria. After reevaluation, patient was still endorsing shortness of breath. Due to these D- dimers were ordered. Patient D-dimers were elevated at 989. With years criteria pulmonary embolism was ruled out. Patient was admitted to the medicine team for further workup. Further patient is on antidual platelet due to recent NV and stent so that GI and cardiology team need to discuss risk benefit Cosigned by Nohemy Díaz MD at 03/22/2025 4:08 PM EDT Associated attestation - Nohemy Díaz MD - 03/22/2025 4:08 PM EDT The patient was seen with the resident physician, and I have personally performed a substantive portion of the encounter. We have discussed management, and I agree with the assessment, workup, and plan of care as documented above. Nohemy Díaz MD [facility] Work Phone: [phone] Plan of care note* Care Plan - Melba Marmolejo RN - 03/25/2025 3:39 AM EDT The clinical goals for the shift include Pt will remain free from falls or injury throughout the shift. Over the shift, the patient did make progress toward the goals. Problem: Pain - Adult Goal: Verbalizes/displays adequate comfort level or baseline comfort level Outcome: Progressing Problem: Safety - Adult Goal: Free from fall injury Outcome: Progressing Problem: Discharge Planning Goal: Discharge to home or other facility with appropriate resources Outcome: Progressing Problem: Chronic Conditions and Co-morbidities Goal: Patient's chronic conditions and co-morbidity symptoms are monitored and maintained or improved Outcome: Progressing Problem: Nutrition Goal: Nutrient intake appropriate for maintaining nutritional needs Outcome: Progressing [facility]06-01-2025 Plan of care note* Care Plan - Lauren Pritchett RN - 03/24/2025 5:11 PM EDT Problem: Pain - Adult Goal: Verbalizes/displays adequate comfort level or baseline comfort level Outcome: Progressing Problem: Safety - Adult Goal: Free from fall injury Outcome: Progressing Problem: Chronic Conditions and Co-morbidities Goal: Patient's chronic conditions and co-morbidity symptoms are monitored and maintained or improved Outcome: Progressing The clinical goals for the shift include Pt will remain free from falls or injury during the shift. [facility]06-01-2025 Plan of care note* Care Plan - Melba Marmolejo RN - 03/24/2025 3:06 AM EDT The clinical goals for the shift include Pt will remain free from falls or injury throughout the shift. Over the shift, the patient did make progress toward the goals. Problem: Pain - Adult Goal: Verbalizes/displays adequate comfort level or baseline comfort level Outcome: Progressing Problem: Safety - Adult Goal: Free from fall injury Outcome: Progressing Problem: Discharge Planning Goal: Discharge to home or other facility with appropriate resources Outcome: Progressing Problem: Chronic Conditions and Co-morbidities Goal: Patient's chronic conditions and co-morbidity symptoms are monitored and maintained or improved Outcome: Progressing Problem: Nutrition Goal: Nutrient intake appropriate for maintaining nutritional needs Outcome: Progressing [facility] Work Phone: [phone]) 141-185405-31-2025 Hospital Note* Hospital Course - Christine Osborne MD - 03/23/2025 5:26 PM EDT Mily Long is a 65 y.o. female with history of CAD (s/p recent PCI 10/10/24 with FREDDIE to LAD and PCI 02/04/25 with FREDDIE to mild L circumflex) and melena in setting of DAPT following PCI presents for further evaluation of GI bleeding. On day of admission, she endorsed 3 episodes of dark black stools over the past 24 hours. Her hgb on admission was 7.2 and per her cardiac history, goal Hgb was 8, so she was transfused with 1 unit pRBCs. After transfusion, her hgb was stable around 9 despite reporting ongoing dark stools. She was recently admitted 02/18-02/22 with melena, at that time underwent EGD, demonstrating Grade A erosive esophagitis without bleeding, followed by colonoscopy, showing diverticulosis. She was again admitted 03/03-03/04 for melena and found to have Hgb of 6.2. She received 2u pRBC transfusion with subsequent stable CBC. Following this, underwent outpatient capsule endoscopy on 03/08/25 3 areas of bleeding in small bowel, concerning for AVMs. GI was consulted this admission and performed a single balloon enteroscopy 03/25 which showed two areas of non-specific erythema in the jejunum. One hemoclip was placed. Her hemoglobin remained stable around 9 for 5 days after the initial transfusion on 03/22. She should follow up with her GI outpatient to monitor this. In regards to her cardiac history, patient presented with STEMI and underwent PPCI 10/10/2024 with FREDDIE to LAD and PTCA of prox diagonal. Patient recently presented again to ED on 02/04/25 for chest pain with elevated troponin to [address] depressions of lateral leads on EKG. 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 Due to the recent PCI and dark stools, Cardiology was consulted and stated patient would need DAPT for 3 months and since patient is not HDUS/in hemorrhagic shock recommended switching to clopidogrel for lowerbleeding risk. She was loaded with clopidogrel and ticagrelor was stopped. She will need outpatientcardiology follow up. Discharged on aspirin and plavix. Of note, patient had chest xray done on admission 03/21 which showed: Focal linear opacity noted of the left lower lung which may represent atelectasis with underlying pulmonary nodule not ruled out. Recommend follow-up radiographs in 4 weeks. If this is persistent on the follow-up radiographs, thena CT chest is recommended for additional evaluation. Advised patient of these findings and instructed her to follow up with her PCP to get repeat chest xray done in 1 month. She was discharged home 03/26/2025. [facility] Work Phone: [phone] Evaluation + Plan note* Assessment & Plan Note - Laurie Arceo MD - 03/23/2025 11:34 AM EDTAssociated Problem(s): SOB (shortness of breath) Mily Long is a 65 y.o. female with history of CAD (s/p recent PCI 10/16 and PCI 02/04/25 withDES to mild L circumflex) and melena in setting of DAPT following PCI presents for further evaluation of GI bleeding. 03/23 Updates: - per cards rec, switch ticagrelor to clopidogrel #Melena #Anemia #Concern for GI bleeding :: Recent EGD/colonoscopy with impression included above :: Recent capsule endoscopy, noted with 3 areas of bleeding however, procedure report not readilyavailable at this time :: Melena in setting of recent cardiac PCI and FREDDIE with DAPT Plan: - Given recent PCI on 02/05/24 and in 09/2024, will continue DAPT for now. Cardiology consulted, recswitch from ticagrelor to clopidogrel - CBC BID - Maintain active T+S - Hgb goal > 8 in setting of recent NV with FREDDIE - Protonix 40mg IV BID - 2 large bore IV if possible - pending scope 03/25 #STEMI s/p PCI 10/10/2024 and 01/2025 :: PCI 10/10/2024 with L main with mild luminal irregularities, prox LAD with 80% stenosis, mid LADw 40% stenosis, diagonal 1 w 99% stenosis, Lcx with mild diffuse disease, ostial RCA with 30-40% stenosis, prox RCA with mild luminal irregularities. Underwent FREDDIE to LAD and PTCA of prox diagonal :: PCI 01/2025 with FREDDIE placed to mid L circumflex and PTCA performed to D1 artery :: Echocardiogram 02/19/25: The estimated ejection fraction is 65 %. No evidence for diastolic dysfunction. Moderate (2+) mitral valve insufficiency. :: Troponin negative at 11 on presentation Plan: - No evidence of chest pain currently per patient - Continue DAPT with ASA + clopidogrel per cards (switch from home ticagrelor) - Hold metoprolol in setting of GI bleeding #iron deficiency anemia :: iron studies with iron 20, % sat 9 - IV iron sucrose x3 days F: PRN E: replete PRN N: regular A: pIV DVT ppx: SCDs, no chemoprophylaxis I/s/o c/f GIB GI ppx: PPI IV BID Code status: Full Surrogate: Haroon [phone] [facility] Work Phone: [phone]) 169-572505-31-2025 Plan of care note* Care Plan - Steve Rain RN - 03/23/2025 5:54 AM EDT The patient's goals for the shift include The clinical goals for the shift include Patient will remain safe and HD stable during this shift. Problem: Pain - Adult Goal: Verbalizes/displays adequate comfort level or baseline comfort level 03/23/2025 05 by Steve Rain RN Outcome: Progressing 03/22/20252222 by Steve Rain RN Outcome: Progressing Problem: Safety - Adult Goal: Free from fall injury 03/23/2025 05 by Steve Rain RN Outcome: Progressing 03/22/20252222 by Steve Rain RN Outcome: Progressing Problem: Discharge Planning Goal: Discharge to home or other facility with appropriate resources 03/23/2025 05 by Steve Rain RN Outcome: Progressing 03/22/20252222 by Steve Rain RN Outcome: Progressing Problem: Chronic Conditions and Co-morbidities Goal: Patient's chronic conditions and co-morbidity symptoms are monitored and maintained or improved 03/23/2025 0554 by Steve Rain RN Outcome: Progressing 03/22/2025 2223 by Steve Rain RN Outcome: Progressing Problem: Nutrition Goal: Nutrient intake appropriate for maintaining nutritional needs 03/23/2025 0554 by Steve Rain RN Outcome: Progressing 03/22/2025 2223 by Steve Rain RN Outcome: Progressing [facility]05-30-2025 Consult note* Prince Larry MD - 03/22/2025 3:22 PM EDTAssociated Order(s): Inpatient consult to Cardiology Inpatient consult to Cardiology Consult performed by: Prince Larry MD Consult ordered by: Kena Asencio MD Inpatient Cardiology Consult Note Reason for consult: DAPT management with recurrent UGIB HPI: Mily Long is a 65 y.o. female with a PMH of CAD (STEMI in 09/2024 s/p recent PCI 10/10 to LAD and PCI 02/04/25 mid LCx) and melena in setting of DAPT following PCI presents for further evaluation of GI bleeding. Per initial H&P, She has had recurrent issues with melena and has underwent EGD, colonoscopy, and capsule endoscopy by OSH providers. She was planned to be seen by GI providers outpatient forfurther small bowel evaluation. Earlier this AM, patient had symptoms of nausea, SOB, weakness, and3 episodes of dark black stools over the past 24 hrs. She denies any chest pain or current SOB or fevers. Given her recurrent symptoms, decided to bring herself to for further evaluation. In regards to her cardiac history, patient presented with STEMI and underwent PPCI 10/10/2024 with FREDDIE to LAD and PTCA of prox diagonal. Patient recently presented again to ED on 02/04/25 for chest pain with elevated troponin to [address] depressions of lateral leads on EKG. 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 Recently admitted 02/18-02/22 with melena, at that time underwent EGD, demonstrating Grade A erosive esophagitis without bleeding, followed by colonoscopy, showing diverticulosis, with full results below. She was again admitted 03/03-03/04 for melena and found to have Hgb of 6.2. She received 2u pRBC transfusion with subsequent stable CBC. Following this, underwent outpatient capsule endoscopy on 03/08/25 however results not readily available per chart review. She reports that she had 3 areas of bleeding noted on the capsule endoscopy. She recently presented to her local ED in [place] with similar symptoms on 03/18 and at that time, was discharged with plan to follow up outpatient for consultation with GI providers for small bowel evaluation. On my evaluation today, she reports that 2 nights ago she began to have nausea and lightheadedness in addition to the melena that has been going on for several weeks. This is what prompted her presentation to hospital. She denies any chest pain or shortness of breath, orthopnea, PND, lower extremity edema. She does state that her initial presentation for the STEMI was also atypical with nausea, but that was much more severe and was associated with frequent vomiting as well. Troponin here was normal and EKG with no acute ischemic changes. All system reviewed and negative unless mentioned above. Cardiac studies: EK/29: NSR, no acute ischemic changes Echo: TTE 09/2024 EF reportedly 50%, G1 DD, severely hypokinetic mid anterior wall and apex and no significant valvular abnormalities Cath: [facility] 02/04/2025 99% stenosis with thrombus in the mid circumflex, underwent successful PCI with FREDDIE to mid circumflex and PTCA alone to the D1 C in 09/2024 LM: Mild luminal irregularities LAD: Proximal 80%, mid 40%, D1 99%, LCx: Mild diffuse disease RCA: Ostial 30 to 40%, proximal mild luminal irregularities PCI to LAD Current Medications[1] Objective: Vitals: 03/22/25 1354 BP: 118/69 Pulse: 82 Resp: 12 Temp: 36 C (96.8 F) SpO2: Exam: GEN: Lying in hospital bed, NAD HEENT: MMM, anicteric sclera CV: RRR, nl S1/2, systolic murmur, no JVD RESP: Breathing comfortably in room air, CTAB ABD: Soft, NTND EXT: WWP, no peripheral edema NEURO: AOx3, no FND PSYCH: appropriate affect Labs/Imaging: Results from last 72 hours Lab Units 03/22/25 0603 03/21/25 1719 [facility] ng/L -- 11 SODIUM mmol/L 141 -- POTASSIUM mmol/L 4.0 -- CO2 mmol/L 22 -- BUN mg/dL 22 -- CREATININE mg/dL 1.26* -- MAGNESIUM mg/dL 2.16 -- PHOSPHORUS mg/dL 3.6 -- Results from last 72 hours Lab Units 03/22/25 0603 WBC AUTO x10*3/uL 7.0 HEMOGLOBIN g/dL 7.2* PLATELETS AUTO x10*3/uL 182 Assessment and Plan: Mily Long is a 65 y.o. female with a PMH of CAD (STEMI in 09/2024 s/p recent PCI 10/10 to LAD and PCI 02/04/25 mid LCx) and melena in setting of DAPT following PCI presents for further evaluation of GI bleeding. # CAD, recent STEMI and NSTEMI with PCI to LAD and LCx # UGIB in s/o DAPT Given that the PCI in January was in the context of acute coronary syndrome, would favor continuing DAPT for 3 months at least. Since she is not HDUS/in hemorrhagic shock, will defer switching P2Y12i to cangrelor, but will recommend switch to clopidogrel for lower bleeding risk. - stop ticagrelor - load with clopidogrel 300 mg once tonight 12 hours after last ticagrelor dose - start clopidogrel 75 mg daily starting tomorrow morning - we will sign off but please page if bleeding is worsening or becoming HDUS necessitating a changein the antiplatelet strategy Thank you for involving us in this patient's care. Recommendations discussed with Dr. Saxena. General Cardiology Consult Pager: [phone] (weekday 7AM-6PM and weekend 7AM-2PM) and other: [phone] EP Consult Pager: [phone] (weekday 7AM-6PM and weekend 7AM-2PM) and other: [phone] CICU Fellow Pager: [phone] anytime EP Device Nurse Pager: [phone] (weekday 7AM-4PM) Advanced Heart Failure Consult Pager: [phone] anytime Prince Larry MD [employer] [1] Current Facility-Administered Medications: aspirin chewable tablet 81 mg, 81 mg, oral, Daily, Chucho Wilson MD, 81 mg at 03/22/25 0844 atorvastatin (Lipitor) tablet 40 mg, 40 mg, oral, Daily, Chucho Wilson MD pantoprazole (Protonix) injection 40 mg, 40 mg, intravenous, BID, Chucho Wilson MD, 40 mg at 03/22/25 0523 polyethylene glycol (Glycolax, Miralax) packet 17 g, 17 g, oral, Daily PRN, Chucho Wilson MD ticagrelor (Brilinta) tablet 90 mg, 90 mg, oral, BID, Chucho Wilson MD, 90 mg at 03/22/25 0844 Cosigned by Dave Saxena MD at 03/22/2025 6:20 PM EDT Associated attestation - Dave Saxena MD - 03/22/2025 6:20 PM EDT I saw and evaluated the patient. I personally obtained the roca and critical portions of the historyand physical exam or was physically present for roca and critical portions performed by the resident/fellow. I reviewed the resident/fellow's documentation and discussed the patient with the resident/anais main. I agree with the resident/fellow's medical decision making as documented in the note. Dave Saxena MD [facility] Work Phone: 1([phone]) 488-536905-30-2025 Consult note* Meir Hood MD - 03/22/2025 2:42 PM EDT Gastroenterology Consult Service INITIAL CONSULT Note Department of Gastroenterology & Hepatology [facility] March 22, 2025 Patient: Mily Long Medical Record: [id number] Reason for Consult: Melena with SOB Requesting Service: Liliana Farr Mily Long is a 65-year-old female with a history of tobacco use disorder, CAD s/p PCI with FREDDIE to the LAD (10/10/2024) and mid left circumflex (02/04/2025), currently on DAPT (Brilinta and ASA), who presents with recurrent melena and concern for ongoing gastrointestinal bleeding. She reports three episodes of dark, tarry stools over the past 24 hours, associated with nausea and generalized weakness. She denies hematemesis, fever, chest pain, or current shortness of breath. She is a current smoker, with a 47 pack-year history (1 pack/day since age 18). Her recent GI history includes multiple admissions for melena. During her 02/18 - 02/22 admission, sheunderwent EGD showing LA Grade A esophagitis without active bleeding and colonoscopy revealing diverticulosis, a 5 mm polyp (removed), and an actively bleeding angiodysplasia in the descending colon,treated with hemostatic clip. On 03/03, she was readmitted with Hgb 6.2 and received 2 units PRBC. On 03/08, she underwent capsule endoscopy, which was formally reviewed during this admission (report scanned 03/22). It showed three distinct episodes of active bleeding localized to the mid to distal jejunum, consistent with small bowel AVMs. On 03/21, she re-presented with another episode of melena. Her hemoglobin was 8.8, and she was transfused 1 unit PRBC and started on IV pantoprazole. Vitals stable. Given her documented colonic and small bowel angiodysplasia, recurrent bleeding, and the need to continue DAPT following recent PCI, she is being evaluated for small bowel bleeding and potential GI intervention. 12 point ROS otherwise negative, unless indicated above. Past Medical History: Medical History[1] Home Medications Prescriptions Prior to Admission[2] Surgical History: Surgical History[3] Allergies: Allergies[4] Social History: Social History Socioeconomic History Marital status: Spouse name: Not on file Number of children: Not on file Years of education: Not on file Highest education level: Not on file Occupational History Not on file Tobacco Use Smoking status: Every Day Current packs/day: 0.50 Average packs/day: 0.5 packs/day for 32.4 years (16.2 ttl pk-yrs) Types: Cigarettes Start date: 1992 Smokeless tobacco: Never Vaping Use Vaping status: Never Used Substance and Sexual Activity Alcohol use: Never Drug use: Never Sexual activity: Defer Other Topics Concern Not on file Social History Narrative Not on file Social Drivers of Health Financial Resource Strain: Low Risk (03/22/2025) Overall Financial Resource Strain (CARDIA) Difficulty of Paying Living Expenses: Not very hard Food Insecurity: No Food Insecurity (03/21/2025) Hunger Vital Sign Worried About Running Out of Food in the Last Year: Never true Ran Out of Food in the Last Year: Never true Transportation Needs: No Transportation Needs (03/22/2025) PRAPARE - Transportation Lack of Transportation (Medical): No Lack of Transportation (Non-Medical): No Physical Activity: Insufficiently Active (03/21/2025) Exercise Vital Sign Days of Exercise per Week: 3 days Minutes of Exercise per Session: 30 min Stress: No Stress Concern Present (03/21/2025) Citizen Of [place] [facility] of Occupational Health - Occupational Stress Questionnaire Feeling of Stress : Not at all Social Connections: Moderately Integrated (03/21/2025) Social Connection and Isolation Panel [NHANES] Frequency of Communication with Friends and Family: Three times a week Frequency of Social Gatherings with Friends and Family: Twice a week Attends Sabianism Services: 1 to 4 times per year Active Member of Clubs or Organizations: No Attends Club or Organization Meetings: Never Marital Status: Intimate Partner Violence: Not At Risk (03/21/2025) Humiliation, Afraid, Rape, and Kick questionnaire Fear of Current or Ex-Partner: No Emotionally Abused: No Physically Abused: No Sexually Abused: No Housing Stability: Low Risk (03/22/2025) Housing Stability Vital Sign Unable to Pay for Housing in the Last Year: No Number of Times Moved in the Last Year: 0 Homeless in the Last Year: No Family History: Family History[5] No family history of GI or liver disease. Objective Vitals: Vitals: 03/22/25 1055 03/22/25 1129 03/22/25 1326 03/22/25 1354 BP: 120/63 110/65 118/69 Pulse: 76 73 82 Resp: 16 16 12 Temp: 36.7 C (98.1 F) 36.2 C (97.2 F) 36 C (96.8 F) TempSrc: Temporal Temporal Temporal SpO2: 95% 96% 100% Weight: Height: Failed to redirect to the Timeline version of the OLSET SmartLink. Intake/Output Summary (Last 24 hours) at 03/22/2025 1442 Last data filed at 03/22/2025 1335 Gross per 24 hour Intake 521.25 ml Output -- Net 521.25 ml Physical Exam Gen: well appearing, in no acute distress HEENT: PEERL, EOMI, sclera anicteric, no LAD Resp: normal work of breathing CV: RRR, no JVD GI: non-tender, non-distended, no rebound or guarding MSK: warm and well perfused, no edema Neuro: AAOx3, no focal deficits Skin: warm and dry, no lesions, no rashes Labs: Lab Results Component Value Date WBC 7.0 03/22/2025 HGB 7.2 (L) 03/22/2025 HCT 24.3 (L) 03/22/2025 MCV 99 03/22/2025 PLT 182 03/22/2025 Lab Results Component Value Date GLUCOSE 90 03/22/2025 CALCIUM 8.6 03/22/2025 NA 141 03/22/2025 K 4.0 03/22/2025 CO2 22 03/22/2025 CL 110 (H) 03/22/2025 BUN 22 03/22/2025 CREATININE 1.26 (H) 03/22/2025 Lab Results Component Value Date ALT 16 03/21/2025 AST 10 03/21/2025 ALKPHOS 75 03/21/2025 BILITOT 0.6 03/21/2025 Lab Results Component Value Date INR 1.0 03/21/2025 PROTIME 11.3 03/21/2025 Imaging: GI procedures: Capsule Endoscopy Report PillCam SB3 [facility] [address] [place] [address] DrAlexis Friend Patient Name: Mily Long ID: [id number] Date: 1960 Gender: Female Capsule ID: [id number] Procedure Date: 03/08/2025 Reason for Referral GI bleed Anemia 64-year-old female with history of recent GI bleeding as well as STEMI (now on Brilinta and aspirin) presenting with palpitations and generalized malaise as well as shortness of breath. She was originally evaluated at [facility] in September [address] elevated myocardial infarctionof the anterolateral wall. She proceeded to get a drug-eluting stent to LAD and PTCA. Heart catheterization showed left main with mild luminal irregularities, proximal LAD with 80% stenosis, mid LAD with 40% stenosis, diagonal1 with 99% stenosis, LCx with mild diffuse disease, distal RCA with 30-40% stenosis, and proximal RCA with mild luminal irregularities. Echocardiogram showed ejection fraction of 50%, stage 1 diastolic dysfunction, and wall motion abnormality with severely hypokinetic mid anterior wall and apex. No significant valvular abnormality was noted. Lipid panel on 10/10/2024 showed total cholesterol: 226, HDL: 37, LDL: 160, and triglycerides: 146. She presented to the emergency room via squad on 02/04/2025 with complaints of chest pain. She described this as pressure and similar to her mild chest. Her EKG demonstrated ST depressions. Patient then underwent a cardiac catheterization on 03/04/2025 which showed 99% stenosis within the mid LAD stent. She underwent a successful drug-eluting stent to the mid circumflex and PTCA alone to the D1. She then presented back to the emergency room on 02/06/2025 with palpitations. She came back to the emergency room yesterday with the chief complaint she notes tonight around 1:30 she woke up and did not feel like she could breathe. She states that she has been feeling short ofbreath. She denies chest pain. She denies hemoptysis, cough, wheezing or pleuritic type symptoms. She states she has been feeling short of breath for the past few days but denies use of any inhalers. Colonoscopy on 03/03/2025 which showed a 5 mm polyp at the splenic flexure which was removed using jumbo cold forceps. She also had large localized area of angioectasias with bleeding in the descending colon. An upper endoscopy and an EGD which showed esophagitis with no bleeding and a medium size hiatal hernia. No varices. Hemoglobin was 4.2 on 02/18 through 02/22 for GI bleeding. She had recently been started on dual antiplatelet therapy. CT scan of chest 02/18 was posed secondary to coronary artery disease. Patient went down to 7.8. Didreceive 2 units of blood with iron transfusions. Gastro passage time: 01m, Small bowel passage time: 4h 2m Endoscopic Interpretation and Findings The capsule entered the stomach at 34 seconds. The capsule entered the duodenum at 1:40:00. There was evidence of fresh red blood in the study. There was the presence in the form of red blood at 1:35:59, 1:43:39 and 1:44:03. The capsule entered the cecum at 4:04:04 Summary and Recommendations Deep enteroscopy Electronically signed by Kwamemarion Lino, 03/13/2025 1:22 PM Assessment & Plan 65-year-old female with a history of CAD s/p PCI with FREDDIE to the LAD (10/10/2024) and mid LCx (02/04/2025), currently on DAPT (Brilinta and ASA), with recurrent melena concerning for ongoing GI bleeding. She has a known history of colonic angiodysplasia (descending colon, treated with clip on 02/21/2025) and small bowel bleeding identified on capsule endoscopy (03/08/2025), which showed three active bleeding sites in the mid to distal jejunum. She was recently hospitalized twice for anemia (Hgb stevenson 6.2), most recently presenting on 03/21 with melena and Hgb 8.8. She received 1 unit PRBC and is currently hemodynamically stable. 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 Given her recent PCI, antiplatelet therapy cannot be safely discontinued at this time, increasing the urgency of localizing and treating bleeding sources endoscopically. Recommendation: - single balloon enteroscopy on Tuesday - NPO at 0001 on 03/25/2025 (Tuesday AM) - Continue IV pantoprazole 40 mg BID - Trend CBC daily - Maintain active type and screen - Transfuse to maintain Hgb >8 g/dL Patient seen and discussed with attending, Dr. Kendall Brower. Meir Hood MD, PhD Gastroenterology Fellow, PGY-6 [facility] Division of Gastroenterology and Liver Disease Thank you for the consultation. Gastroenterology will continue to the follow the patient. Please do not hesitate to contact me on Haiku or page [phone] if there are any further questions between the weekday hours of 7 AM - 5 PM. If there is an urgent concern during the weekend, after-hours, or holidays; then [place] [phone]. Thank you. SIGNATURE: Meir Hood MD PATIENT NAME: Mily Long DATE: March 22, 2025 [1] History reviewed. No pertinent past medical history. [2] Medications Prior to Admission Medication Sig Dispense Refill Last Dose/Taking atorvastatin (Lipitor) 40 mg tablet Take 1 tablet (40 mg) by mouth once daily. 03/20/2025 Bedtime Brilinta 90 mg tablet Take 1 tablet (90 mg) by mouth 2 times a day. 03/20/2025 Bedtime iron polysaccharides (Nu-Iron,Niferex) 150 mg iron capsule Take 1 capsule (150 mg) by mouth once daily. 03/21/2025 Morning metoprolol succinate XL (Toprol-XL) 25 mg 24 hr tablet Take 1 tablet (25 mg) by mouth once daily. 03/21/2025 Morning nitroglycerin (Nitrostat) 0.[address] 1 tablet (0.4 mg) under the tongue every 5 minutesif needed for chest pain. Unknown pantoprazole (ProtoNix) 40 mg EC tablet Take 1 tablet (40 mg) by mouth once daily in the morning. Take before meals. 03/21/2025 Morning [3] History reviewed. No pertinent surgical history. [4] Allergies Allergen Reactions Sulfa (Sulfonamide Antibiotics) Diarrhea Sulfamethoxazole-Trimethoprim Nausea/vomiting Penicillins Hives and Rash [5] No family history on file. Cosigned by Kendall Brower MD at 03/23/2025 9:58 AM EDT Associated attestation - Kendall Brower MD - 03/23/2025 9:58 AM EDT I saw and evaluated the patient. I personally obtained the roca and critical portions of the historyand physical exam or was physically present for roca and critical portions performed by the resident/fellow. I reviewed the resident/fellow's documentation and discussed the patient with the resident/f etelvina. I agree with the resident/fellow's medical decision making as documented in the note. Patient with acute blood loss anemia and recurrent melena. Recent VCE with blood noted in multiple areas all within the first half of the small bowel transit time. Will plan for single balloon enteroscopy on Tuesday. Kendall Brower MD Division of Gastroenterology and Liver Disease [facility] Work Phone: [phone]) 202-289005-29-2025 Evaluation + Plan note* Assessment & Plan Note - Chucho Wilson MD - 03/21/2025 11:06 PM EDTAssociated Problem(s): SOB (shortness of breath) Mily Long is a 65 y.o. female with history of CAD (s/p recent PCI 10/16 and PCI 02/04/25 withDES to mild L circumflex) and melena in setting of DAPT following PCI presents for further evaluation of GI bleeding. #Melena #Anemia #Concern for GI bleeding :: Recent EGD/colonoscopy with impression included above :: Recent capsule endoscopy, noted with 3 areas of bleeding however, procedure report not readilyavailable at this time :: Melena in setting of recent cardiac PCI and FREDDIE with DAPT Plan: - Given recent PCI on 02/05/24 and in 09/2024, will continue DAPT for now. Consider cardiology consult for further guidance in setting of GI bleeding - CBC BID - Maintain active T+S - Hgb goal > 8 in setting of recent NV with FREDDIE - Protonix 40mg IV BID - Hold PO iron supplementation - 2 large bore IV if possible - NPO at midnight - GI consult for consideration of further endoscopic evaluation if warranted #STEMI s/p PCI 10/10/2024 and 01/2025 :: PCI 10/10/2024 with L main with mild luminal irregularities, prox LAD with 80% stenosis, mid LADw 40% stenosis, diagonal 1 w 99% stenosis, Lcx with mild diffuse disease, ostial RCA with 30-40% stenosis, prox RCA with mild luminal irregularities. Underwent FREDDIE to LAD and PTCA of prox diagonal :: PCI 01/2025 with FREDDIE placed to mid L circumflex and PTCA performed to D1 artery :: Echocardiogram 02/19/25: The estimated ejection fraction is 65 %. No evidence for diastolic dysfunction. Moderate (2+) mitral valve insufficiency. :: Troponin negative at 11 on presentation Plan: - No evidence of chest pain currently per patient - Continue DAPT for now - Hold metoprolol in setting of GI bleeding F: PRN E: replete PRN N: NPO at midnight A: pIV DVT ppx: DAPT for recent PCI GI ppx: PPI IV BID Code status: Full Surrogate: Haroon [phone] [facility] Work Phone: [phone]) [phone] History and physical note* Chucho Wilson MD - 03/21/2025 8:57 PM EDT History Of Present Illness Mily Long is a 65 y.o. female with history of CAD (s/p recent PCI 10/10/24 with FREDDIE to LAD and PCI 02/04/25 with FREDDIE to mild L circumflex) and melena in setting of DAPT following PCI presents for further evaluation of GI bleeding. Patient's recent cardiac history and admissions for melena/GI bleeding are described in brief below. She has had recurrent issues with melena and has underwent EGD, colonoscopy, and capsule endoscopy by OSH providers. She was planned to be seen by GI providers outpatient for further small bowel evaluation. Earlier this AM, patient had symptoms of nausea, SOB, weakness, and 3 episodes of dark black stools over the past 24 hrs. She denies any chest pain or current SOB or fevers. Given her recurrent symptoms, decided to bring herself to for further evaluation. In regards to her cardiac history, patient presented with STEMI and underwent PPCI 10/10/2024 with FREDDIE to LAD and PTCA of prox diagonal. Patient recently presented again to ED on 02/04/25 for chest pain with elevated troponin to [address]ressions of lateral leads on EKG. 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 Recently admitted 02/18-02/22 with melena, at that time underwent EGD, demonstrating Grade A erosive esophagitis without bleeding, followed by colonoscopy, showing diverticulosis, with full results below. She was again admitted 03/03-03/04 for melena and found to have Hgb of 6.2. She received 2u pRBC transfusion with subsequent stable CBC. Following this, underwent outpatient capsule endoscopy on 03/08/25 however results not readily available per chart review. She reports that she had 3 areas of bleeding noted on the capsule endoscopy. She recently presented to her local ED in [place] with similar symptoms on 03/18 and at that time, was discharged with plan to follow up outpatient for consultation with GI providers for small bowel evaluation. Endoscopic history: EGD 02/19/25: - LA Grade A erosive esophagitis with no bleeding. - Medium-sized hiatal hernia. - No gross lesions in the entire examined duodenum. - No specimens collected. Colonoscopy 02/21/25: Impression: - Diverticulosis in the recto-sigmoid colon and in the sigmoid colon. - One 5 mm polyp at the splenic flexure, removed with a jumbo cold forceps. Resected and retrieved. - The examined portion of the ileum was normal. - Non-bleeding internal hemorrhoids. - The examination was otherwise normal on direct and retroflexion views. Of note, report also describes single large localized angiodysplastic lesion with bleeding found in the descending colon. For hemostasis, one hemostatic clip was successfully placed. ED Course: - Vital signs stable: afebrile, HR 80-90, RR 14-18, BP 100-130s/60-70, 100% on RA - Labs: - RFP WNL - LFTs WNL - CBC Hgb 8.8 but otherwise WNL - Troponin WNL - Imaging: CXR: 1. Findings of bibasilar atelectasis 2. Focal linear opacity noted of the left lower lung which may represent atelectasis with underlying pulmonary nodule not ruled out. Recommend follow-up radiographs in 4 weeks. If this is persistent on the follow- up radiographs, then a CT chest is recommended for additional evaluation. - Interventions: given 1u pRBC, protonix 40mg IV Past Medical History She has no past medical history on file. Surgical History She has no past surgical history on file. Social History She has no history on file for tobacco use, alcohol use, and drug use. Family History Family History[1] Allergies Sulfa (sulfonamide antibiotics), Sulfamethoxazole-trimethoprim, and Penicillins Review of Systems Review of systems was performed and is otherwise negative except as noted in HPI. Physical Exam General: awake, alert, conversant, appears stated age HEENT: pupils equal and round, no scleral icterus Skin: no suspect lesions or rashes noted on visible skin Chest: ctab, normal respiratory effort, not on supplemental oxygen Cardiac: regular rate, normal s1, s2, no M/R/G Abdomen: soft, ND, NT, no involuntary guarding : no flank pain or indwelling urinary catheter EXT: no peripheral edema, no asymmetry noted MSK: no focal joint swelling noted Neuro: AOx4, moving all limbs spontaneously, follows commands Psych: coherent thought process, appropriate mood and affect Last Recorded Vitals BP 121/58 Pulse 76 Temp 36.7 C (98.1 F) Resp 14 Wt 71.7 kg (158 lb) SpO2 95% Relevant Results Results from last 7 days Lab Units 03/21/25 1437 WBC AUTO x10*3/uL 9.8 HEMOGLOBIN g/dL 8.8* HEMATOCRIT % 27.9* PLATELETS AUTO x10*3/uL 252 Results from last 7 days Lab Units 03/21/25 1437 SODIUM mmol/L 140 POTASSIUM mmol/L 4.1 CHLORIDE mmol/L 107 CO2 mmol/L 24 BUN mg/dL 18 CREATININE mg/dL 1.05 CALCIUM mg/dL 10.1 PROTEIN TOTAL g/dL 7.3 BILIRUBIN TOTAL mg/dL 0.6 ALK PHOS U/L 75 ALT U/L 16 AST U/L 10 GLUCOSE mg/dL 90 Assessment/Plan Assessment & Plan SOB (shortness of breath) Mily Long is a 65 y.o. female with history of CAD (s/p recent PCI 10/16 and PCI 02/04/25 withDES to mild L circumflex) and melena in setting of DAPT following PCI presents for further evaluation of GI bleeding. #Melena #Anemia #Concern for GI bleeding :: Recent EGD/colonoscopy with impression included above :: Recent capsule endoscopy, noted with 3 areas of bleeding however, procedure report not readilyavailable at this time :: Melena in setting of recent cardiac PCI and FREDDIE with DAPT Plan: - Given recent PCI on 02/05/24 and in 09/2024, will continue DAPT for now. Consider cardiology consult for further guidance in setting of GI bleeding - CBC BID - Maintain active T+S - Hgb goal > 8 in setting of recent NV with FREDDIE - Protonix 40mg IV BID - Hold PO iron supplementation - 2 large bore IV if possible - NPO at midnight - GI consult for consideration of further endoscopic evaluation if warranted #STEMI s/p PCI 10/10/2024 and 01/2025 :: PCI 10/10/2024 with L main with mild luminal irregularities, prox LAD with 80% stenosis, mid LADw 40% stenosis, diagonal 1 w 99% stenosis, Lcx with mild diffuse disease, ostial RCA with 30-40% stenosis, prox RCA with mild luminal irregularities. Underwent FREDDIE to LAD and PTCA of prox diagonal :: PCI 01/2025 with FREDDIE placed to mid L circumflex and PTCA performed to D1 artery :: Echocardiogram 02/19/25: The estimated ejection fraction is 65 %. No evidence for diastolic dysfunction. Moderate (2+) mitral valve insufficiency. :: Troponin negative at 11 on presentation Plan: - No evidence of chest pain currently per patient - Continue DAPT for now - Hold metoprolol in setting of GI bleeding F: PRN E: replete PRN N: NPO at midnight A: pIV DVT ppx: DAPT for recent PCI GI ppx: PPI IV BID Code status: Full Surrogate: Haroon [phone] Chucho Wilson MD PGY-2 Internal Medicine [1] No family history on file. Cosigned by Kena Asencio MD at 03/23/2025 2:45 PM EDT Associated attestation - Kena Asencio MD - 03/23/2025 2:45 PM EDT I saw and evaluated the patient. I personally obtained the roca and critical portions of the historyand physical exam or was physically present for roca and critical portions performed by the resident/fellow. I reviewed the resident/fellow's documentation and discussed the patient with the resident/f etelvina. I agree with the resident/fellow's medical decision making as documented in the note. [facility] Work Phone: [phone]) [phone] Physician Emergency department Note* Hilary Daugherty MD - 03/21/2025 2:16 PM EDT Images from the original note were not included. Emergency Department Provider Note History of Present Illness History provided by: Patient Limitations to History: None External Records Reviewed with Brief Summary: Patient's paper chart was reviewed which showed that she was admitted between 02/18 through 02/22 for GI bleeding. HPI: Mily Long is a 65 y.o. female STEMI status post PCI with drug-eluting stent to LAD and PTCA on September 2024 now on Brilinta and aspirin complicated by GI bleed now presenting with melanotic stool as well as shortness of breath. Patient reports she has been getting blood transfusions regularly at [place] emergency department. She was scheduled to have a GI appointment today at 1 PM but wasfeeling short of breath and weak and was instructed to come to the emergency department here instead. She reports that she has been having intermittent GI bleeding since starting dual antiplatelet therapy and reports that she also felt short of breath when she was recently hospitalized for GI bleed. Patient has a paper chart from [facility] indicating that she had a colonoscopy on 02/21 whichshowed a 5 mm polyp at the splenic flexure which was removed using cold forceps and and a large angiodysplastic lesion which was bleeding in the descending colon for which a hemostatic clip was placed. Patient denies any fever, chills, chest pain, nausea, vomiting pain, denies history of DVT/PE. Patient reports she took her home pantoprazole this morning. Physical Exam Triage vitals: T 36.7 C (98.1 F) HR 98 BP 135/77 RR 17 O2 100 % General: Awake, alert, in no acute distress Eyes: Gaze conjugate. No scleral icterus or injection HENT: Normo-cephalic, atraumatic. No stridor CV: Regular rate, regular rhythm. Radial pulses 2+ bilaterally Resp: Breathing non-labored, speaking in full sentences. Clear to auscultation bilaterally GI: Soft, non-distended, non-tender. No rebound or guarding. : Deferred MSK/Extremities: No gross bony deformities. Moving all extremities. Skin: Warm. Appropriate color Neuro: Alert. Oriented. Face symmetric. Speech is fluent. Gross strength and sensation intact in b/l UE and LEs Psych: Appropriate mood and affect Medical Decision Making & ED Course Medical Decision Makin y.o. female past medical history of drug-eluting stent to LAD and PTCA on September 2024 now on Brilinta and aspirin complicated by GI bleed presenting with a melanotic stool as well as shortness of breath concerning for repeat GI bleed. Other differentials, such as pneumonia, DVT/PE, ACS were considered but less likely given patient's history. On exam patient is nontoxic-appearing with reassuring vitals satting appropriately on room air with clear lung sounds low suspicion for pneumonia given no fever, no sputum production and patient is satting appropriately. Low suspicion for DVT/PE given patient is nontachycardic and is satting appropriately on room air. Low suspicion for ACS given patient denies any chest pain and shortness of breath most likely due to anemia from known GI bleed. Patient was consented for blood and 2 units of blood were placed on hold. She was signed out pending lab work and chest x-ray. Patient was given an additional 40 mg IV Protonix. ---- Social Determinants of Health which Significantly Impact Care: None identified EKG Independent Interpretation: EKG not obtained Independent Result Review and Interpretation: Relevant laboratory and radiographic results were reviewed and independently interpreted by myself. As necessary, they are commented on in the ED Course. Chronic conditions affecting the patient's care: As documented above in MDM The patient was discussed with the following consultants/services: None Care Considerations: As documented above in MDM ED Course: Disposition Patient was signed out to Dr. Agee at 3PM pending completion of their work-up. Please see the next provider's transition of care note for the remainder of the patient's care. Procedures Procedures Patient seen and discussed with ED attending physician. Hilary Daugherty MD Emergency Medicine Hilary Daugherty MD Resident 03/21/25 1724 Hilary Daugherty MD Resident 03/21/25 1745 Cosigned by Nohemy Palumbo DO at 03/22/2025 3:45 PM EDT Associated attestation - Nohemy Palumbo DO - 03/22/2025 3:45 PM EDT This patient was seen by the resident physician. I have seen and examined the patient, agree with the workup, evaluation, management and diagnosis. I reviewed and edited the above documentation wherenecessary. I have seen the EKG and independently interpreted it. I agree with the documentation of the above interpretation Diagnoses as of 03/22/25 1545 Shortness of breath Nohemy Palumbo DO [facility] Work Phone: [phone] Emergency department Note* Hilary Daugherty MD - 03/21/2025 2:16 PM EDT Images from the original note were not included. Emergency Department Provider Note History of Present Illness History provided by: Patient Limitations to History: None External Records Reviewed with Brief Summary: Patient's paper chart was reviewed which showed that she was admitted between 02/18 through 02/22 for GI bleeding. HPI: Mily Long is a 65 y.o. female STEMI status post PCI with drug-eluting stent to LAD and PTCA on September 2024 now on Brilinta and aspirin complicated by GI bleed now presenting with melanotic stool as well as shortness of breath. Patient reports she has been getting blood transfusions regularly at [place] emergency department. She was scheduled to have a GI appointment today at 1 PM but wasfeeling short of breath and weak and was instructed to come to the emergency department here instead. She reports that she has been having intermittent GI bleeding since starting dual antiplatelet therapy and reports that she also felt short of breath when she was recently hospitalized for GI bleed. Patient has a paper chart from [facility] indicating that she had a colonoscopy on 02/21 whichshowed a 5 mm polyp at the splenic flexure which was removed using cold forceps and and a large angiodysplastic lesion which was bleeding in the descending colon for which a hemostatic clip was placed. Patient denies any fever, chills, chest pain, nausea, vomiting pain, denies history of DVT/PE. Patient reports she took her home pantoprazole this morning. Physical Exam Triage vitals: T 36.7 C (98.1 F) HR 98 BP 135/77 RR 17 O2 100 % General: Awake, alert, in no acute distress Eyes: Gaze conjugate. No scleral icterus or injection HENT: Normo-cephalic, atraumatic. No stridor CV: Regular rate, regular rhythm. Radial pulses 2+ bilaterally Resp: Breathing non-labored, speaking in full sentences. Clear to auscultation bilaterally GI: Soft, non-distended, non-tender. No rebound or guarding. : Deferred MSK/Extremities: No gross bony deformities. Moving all extremities. Skin: Warm. Appropriate color Neuro: Alert. Oriented. Face symmetric. Speech is fluent. Gross strength and sensation intact in b/l UE and LEs Psych: Appropriate mood and affect Medical Decision Making & ED Course Medical Decision Makin y.o. female past medical history of drug-eluting stent to LAD and PTCA on September 2024 now on Brilinta and aspirin complicated by GI bleed presenting with a melanotic stool as well as shortness of breath concerning for repeat GI bleed. Other differentials, such as pneumonia, DVT/PE, ACS were considered but less likely given patient's history. On exam patient is nontoxic-appearing with reassuring vitals satting appropriately on room air with clear lung sounds low suspicion for pneumonia given no fever, no sputum production and patient is satting appropriately. Low suspicion for DVT/PE given patient is nontachycardic and is satting appropriately on room air. Low suspicion for ACS given patient denies any chest pain and shortness of breath most likely due to anemia from known GI bleed. Patient was consented for blood and 2 units of blood were placed on hold. She was signed out pending lab work and chest x-ray. Patient was given an additional 40 mg IV Protonix. ---- Social Determinants of Health which Significantly Impact Care: None identified EKG Independent Interpretation: EKG not obtained Independent Result Review and Interpretation: Relevant laboratory and radiographic results were reviewed and independently interpreted by myself. As necessary, they are commented on in the ED Course. Chronic conditions affecting the patient's care: As documented above in [facility] The patient was discussed with the following consultants/services: None Care Considerations: As documented above in [facility] ED Course: Disposition Patient was signed out to Dr. Agee at 3PM pending completion of their work-up. Please see the next provider's transition of care note for the remainder of the patient's care. Procedures Procedures Patient seen and discussed with ED attending physician. Hilary Daugherty MD Emergency Medicine Hilary Daugherty MD Resident 03/21/25 3057 Hilary Daugherty MD Resident 03/21/25 1745 Cosigned by Nohemy Palumbo DO at 03/22/2025 3:45 PM EDT Associated attestation - Nohemy Palumbo DO - 03/22/2025 3:45 PM EDT This patient was seen by the resident physician. I have seen and examined the patient, agree with the workup, evaluation, management and diagnosis. I reviewed and edited the above documentation wherenecessary. I have seen the EKG and independently interpreted it. I agree with the documentation of the above interpretation Diagnoses as of 03/22/25 1545 Shortness of breath Nohemy Palumbo DO * Jazzmine Serrato RN - 03/21/2025 12:18 PM EDT Pt states she feels SOB on while ambulating, she believes she's bleeding somewhere internally. Pt states she has tarry back stool but she's taking iron. States states her hemoglobin was 8 yesterday and 7 the day prior. Pt states she has a known bleed in her small intestines [facility] Work Phone: 1([phone]) 227-838505-29-2025 Emergency department Triage note* Jazzmine Serrato RN - 03/21/2025 12:18 PM EDT Pt states she feels SOB on while ambulating, she believes she's bleeding somewhere internally. Pt states she has tarry back stool but she's taking iron. States states her hemoglobin was 8 yesterday and 7 the day prior. Pt states she has a known bleed in her small intestines [facility] Work Phone: 1([phone]) 900-642305-26-2025 Discharge summary Author Inderjit Gilmore [facility] Note Date/Time March 18, 2025 8:18a m [facility] Medical Records Department [address] [place] [address] Emergency Department Summary 03/18/25 MR#: [id number] Acct: [id number] Name: MILY LONG Rep #:[id number] : 1960 65 From: Inderjit Reyes PCP: Dr. Florin Bailey, DO Status:REG ER Location: ED HPI History of Present Illness Chief Complaint: Shortness of Breath Informant: patient Narrative Narrative: 65-year-old female presenting to the emergency room chief complaint of fatigue and shortness of breath. Patient states that whenever she exerts herself tonight she feels more short of breath than normal and because of her fatigue and recent history of GI bleeding is concerned that her hemoglobin has dropped again. Patient has a history of coronary artery disease and recently underwent PCI/cardiac catheterization. She has had several recent admissions for anemia felt to be due to bleeding from the small bowel. She has been following with Dr. Cotto as an outpatient as well as an inpatient. She has had recent EGD andcolonoscopy and most recently underwent capsule endoscopy. This demonstrated 3 areas of bleeding per reports. Patient continues to note black tarry stools butno marlyn blood. She is on oral iron. [facility] Medical History Anemia GERD (gastroesophageal reflux disease) Smoker CPAP (continuous positive airway pressure) dependence Non-ST elevation NV (NSTEMI) Hematuria UTI (urinary tract infection) Hyperlipidemia Atherosclerosis of coronary artery of [place] heart without angina pectoris Myocardial infarct Home Medications ?Medication ?Instructions ?Recorded ?Last Taken ?Type aspirin 81 mg tablet,delayed 81 mg PO DAILY@0800 heart health 10/11/24 02/18/25 Rx release 90 days #90 tabs atorvastatin 40 mg tablet 40 mg PO QHS cholesterol 90 days 10/26/24 02/17/25 Rx #90 tabs metoprolol succinate 25 mg 25 mg PO DAILY heart 90 day s #90 10/26/24 02/21/25 Rx tablet,extended release 24 hr tabs (Toprol XL) ticagrelor 90 mg tablet (Brilinta) 90 mg PO BID blood thinner 90 days 10/26/24 02/18/25 Rx #180 tabs albuterol sulfate 90 mcg/actuation 2 puff inhalation Q 4H PRN PRN 02/06/25 Unknown Rx aerosol inhaler (Ventolin HFA) Wheezing ##1 ascorbate calcium (vitamin C) 500 1 g PO DAILY vitamin 02/06/25 02/05/25 History mg tablet ondansetron 4 mg disintegrating 4 mg PO Q6H PRN PRN Na usea #15 tabs 02/06/25 02/17/25 Rx tablet nitroglycerin 0.4 mg sublingual 0.4 mg sublingual Q5-1 5M PRN chest 02/07/25 Unknown Rx tablet pain #25 tabs pantoprazole 40 mg tablet,delayed 40 mg PO DAILY reflu x #90 tabs 02/22/25 Unknown Rx release (Protonix) polysaccharide iron complex 150 mg 150 mg PO DAILY sup plement 90 days 02/22/25 Unknown Rx iron capsule (Ferrex) #90 caps omeprazole 40 mg capsule,delayed 40 mg PO DAILY reflux 03/03/25 Unknown History release Allergy/AdvReac Type Severity Reaction Status Date / Time Penicillins Allergy Hives Verified 03/03/25 02:22 Sulfa (Sulfonamide AdvReac Diarrhea Verified 03/03/25 02:22 Antibiotics) Family History Father CAD (coronary artery disease) CABG age 68; CVA (cerebral vascular accident) Myocardial infarction Mother Cancer Cervical, Melanoma, Colon Surgical History Status post cardiac surgery History of coronary artery stent placement History of carpal tunnel surgery of left wrist History of coronary artery stent placement (02/04/25) Social History household members: spouse housing: house Smoking Status: Current every day smoker tobacco type: cigarettes second hand exposure: No ROS ROS ED ROS Narrative Generalized fatigue Constitutional Constitutional ED: Denies chills, fever(s) or weight loss Eyes Eyes: Denies change in vision or diplopia ENT ENT ED: Denies ear pain, rhinorrhea or sore throat Cardiovascular Cardiovascular: Denies chest pain, orthopnea, palpitations or racing heartbeat Respiratory/Chest Respiratory/Chest: Reports dyspnea on exertion; Denies cough, dyspnea or orthopnea Gastrointestinal Gastrointestinal: Denies abdominal pain, diarrhea, nausea or vomiting Genitourinary Genitourinary ED: Denies dysuria, hematuria or urinary frequency Musculoskeletal Musculoskeletal: Denies arthralgias or myalgias Integumentary Denies abscess or rash Neurologic Neurologic: Denies headache(s) or weakness Psychiatric Psychiatric: Denies anxiety, depression, suicidal ideation or suicidal thoughts Endocrine Endocrinology: Denies polydipsia, polyphagia or polyuria Allergic/Immunologic Allergic/Immunologic ED: Denies mouth swelling, tongue swelling or urticaria EXAM Physical Exam Const Vital Signs: 03/18/25 04:58 03/18/25 05:02 03/18/25 06:22 Temperature 97.6 F L Temperature Source Oral Pulse Rate 88 89 Respiratory Rate 12 18 Respiratory Effort Normal Non-Labored Respiratory Depth Normal Respiratory Pattern Normal Blood Pressure 145/54 H 116/60 Blood Pressure Mean 84 78 Pulse Ox 100 97 Oxygen Delivery Method Room Air Room Air Room Air Positive well nourished and well developed General Appearance ED: well developed HEENT Reports normocephalic, head/scalp atraumatic and moist mucous membranes Eyes PERRL and EOMs intact bilaterally General Eye ED: Negative for pale conjunctiva Neck no lymphadenopathy, supple and no JVD Resp normal respiratory effort and clear to auscultation bilaterally Cardio regular rate, regular rhythm and no murmurs GI normal to inspection, nondistended, normoactive bowel sounds and non-tender Palpation: soft Back/Spine no CVA tenderness and normal ROM Extremity normal to inspection Extremity Narrative: Patient has palmar erythema General Extremety ED: Negative for edema General Extremity: Negative for edema Neuro oriented x3 and CN's II-XII intact bilaterally Sensorium / Orientation: alert Motor Exam: strength 5/5 throughout Psych mental status grossly normal Mood & Affect: Negative for depressed or tearful Skin no rashes or lesions noted and no wounds MDM MDM MDM Narrative Medical decision making narrative: Differential diagnosis includes but not limited to small bowel bleeding/upper GIbleeding acute blood loss anemia coronary artery disease acute kidney injury I reviewed the patient's recent admissions as well as procedures including the capsule endoscopy. Her hemoglobin currently is 7 with a platelet count of 234 white count of 8.2. Normal creatinine 1.01 BUN of 24 normal LFTs and lipase. She has been typed and crossed for 1 unit. I spoke with her documentation nurse Dr. Cotto who recommends transfer due to our inability to do small bowel procedures that she needs. She had been previously referred to and has not yet had an appointment. She states she is waiting on a phone call back. I spoke with the documentation nurse on-call for she does not feel that the patient needs to be transferred. He recommends transfusion and for her to call the office tomorrow and they can see her this week. To help expedite the patient's care I did print off a copy of her capsule endoscopy as well as recentEGD colonoscopy cardiac catheterization and last office note that I have access to. I spoke with the patient regarding this as she is hemodynamically stable she is comfortable with this plan. History & Record Review Discussion w/independent historian: Patient Additional record(s) reviewed:: Prior inpatient record, Prior outpatient record,Prior ED visit and Prior labs Lab Data Attestation: I reviewed the patient's lab results. Labs: Laboratory Results - last 24 hr 03/18/25 03/18/25 05:15 06:36 WBC 8.2 RBC 2.29 L Hgb 7.0 L Hct 23.4 L MCV 102.2 H MCH 30.6 MCHC 29.9 L RDW Std Deviation 67.1 H RDW Coeff of Gerber 18.1 H Plt Count 234 MPV 10.3 Immature Gran % (Auto) 0.500 Neut % (Auto) 70.6 H Lymph % (Auto) 18.4 L Daggett % (Auto) 6.1 Eos % (Auto) 3.2 Baso % (Auto) 1.2 H Absolute Neuts (auto) 5.8 Absolute Lymphs (auto) 1.50 Nucleated RBC % 0 Anisocytosis RARE Sodium 141 Potassium 3.9 Chloride 107 Carbon Dioxide 21.2 Anion Gap 12 BUN 24 H Creatinine 1.01 Estim Creat Clear Calc 52.56 Est GFR (MDRD) Non-Af 61 BUN/Creatinine Ratio 23.8 H Glucose 108 H Calcium 9.4 Total Bilirubin 0.24 Direct Bilirubin 0.12 AST 11 ALT 15 Alkaline Phosphatase 62 Total Protein 6.1 Albumin 3.8 Globulin 2.3 Lipase 49 Blood Type A NEGATIVE Antibody Screen NEGATIVE Crossmatch See Detail Management Discussion w/another healthcare provider: Lead Programmer (Dr. Cotto ([facility]) /on-call gastroenterology) Discharge Plan Triage Chief Complaint: Shortness of Breath ED Provider: Inderjit Gilmore Dx/Rx/DC Orders Prescriptions: No Action metoprolol succinate [Toprol XL] 25 mg tablet extended release 24 hr 25 mg PO DAILY 90 Days Qty: 90 3RF ticagrelor [Brilinta] 90 mg tablet 90 mg PO BID 90 Days Qty: 180 3RF atorvastatin 40 mg tablet 40 mg PO QHS 90 Days Qty: 90 3RF nitroglycerin 0.4 mg tablet, sublingual 0.4 mg sublingual Q5-15M PRN (Reason: chest pain) Qty: 25 3RF Rx Instructions: do not exceed 3 doses per episode aspirin 81 mg Tablet,Delayed Release (Dr/Ec) 81 mg PO DAILY@0800 90 Days Qty: 90 3RF ascorbate calcium (vitamin C) 500 mg tablet 1 g PO DAILY albuterol sulfate [Ventolin HFA] 90 mcg/actuation HFA aerosol inhaler 2 puff inhalation Q4H PRN PRN (Reason: Wheezing) Qty: 1 0RF Rx Instructions: with spacer ondansetron 4 mg tablet,disintegrating 4 mg PO Q6H PRN PRN (Reason: Nausea) Qty: 15 0RF polysaccharide iron complex [Ferrex 150] 150 mg iron Capsule 150 mg PO DAILY 90 Days Qty: 90 0RF pantoprazole [Protonix] 40 mg tablet,delayed release (DR/EC) 40 mg PO DAILY Qty: 90 0RF omeprazole 40 mg capsule,delayed release(DR/EC) 40 mg PO DAILY Primary Care Provider: Florin Bailey Referrals: Florin Bailey DO [Primary Care Provider] - Print Language: Bangladeshi What to do if you have Problems For any increased pain, shortness of breath, bleeding, nausea or vomiting, chestpain, or any unexpected problems, contact your Primary Care Provider. Call [facility] ([phone]) or report to the closest Emergency Room. Call 911 if necessary. 03/18/2518 <Electronically signed by Inderjit Gilmore DO> Cosigner Signature (if applicable): CC: Dr. Florin Bailey DO ~ Signed [facility] Work Phone: 1(253) 447-850905-16-2025 Progress note Author Ivan Cotto [facility] Note Date/Time March 08, 2025 8:32a m [facility] [address] [place] [address] OFFICE VISIT Date of Service: 03/08/25 MR#: [id number] Acct: [id number] Patient: MILY LONG Rep #: [id number] : 1960 Provider: Ivan Cotto DO Age/Sex: 64/F Location: [facility] Status: Signed Intake Vital Signs 03/03/25 13:24 Height 5 ft 7 in Intake Visit Reasons: Pill Cam Allergies Penicillins Allergy (Verified 03/03/25 02:22) Hives Sulfa (Sulfonamide Antibiotics) Adverse Reaction (Verified 03/03/25 02:22) Diarrhea Have you fallen in the past year?: No Office Procedures Procedure Administration Route: PO Administration Location: [facility] Dispensed Units: 1 Capsule Lot Number: [id number] Expiration Date: 12/21/25 Capsule ID Number: [id number] Consent Form Signed: Yes Reason for Pill Capsule Endoscopy: Gi Bleed Comments: Pt tolerated procedure well. All questions answered. Pill Cam Billing-In Office: [phone] GI TRACT CAPSULE ENDOSCOPY Assessment and Plan Assessment and Plan Orders: Orders Basic Metabolic Profile (BMP) Today D64.9 - Anemia, unspecified CBC W/Diff, Automated Today D64.9 - Anemia, unspecified Transferrin Today D64.9 - Anemia, unspecified Celiac Disease Profile Today D64.9 - Anemia, unspecified Clinical Quality Measures Falls Risk Screening/Assistive Devices Have you fallen in the past year?: No 03/08/25 0832 <Electronically signed by Ivan lombardo DO> Date _ Ivan Binghamigner Signature: Date (if applicable) CC: ~ [facility] Work Phone: 1(737) 230-100205-12-2025 Consult note Author Rohit Hartmann [facility] Note Date/Time March 04, 2025 6:03p m [facility] Medical Records Department [address] [place] [address] Counseling Note - Pharmacy 03/04/25 1632 MR#: [id number] Acct: [id number] Name: MILY LONG Rep #:[id number] : 1960 64 From: Rohit Hartmann PCP: Dr. Florin Bailey, DO Status:ADM IN Y Location: [place] [address] Pharmacy [place] Med Reconciliation Pharmacy Service has performed discharge medication reconciliation for this patient. The patient's discharge medication list was reviewed for discrepancies and discrepancies were resolved. Medications at Discharge Home Medications aspirin 81 mg tablet,delayed release 81 mg PO DAILY@0800 heart health 90 days #90 tabs 10/11/24 atorvastatin 40 mg tablet 40 mg PO QHS cholesterol 90 days #90 tabs 10/26/24 lisinopril 2.5 mg tablet 2.5 mg PO DAILY blood pressure 90 days #90 tabs 10/26/24 metoprolol succinate 25 mg tablet,extended release 24 hr (Toprol XL) 25 mg PO DAILY heart 90 days #90 tabs 10/26/24 ticagrelor 90 mg tablet (Brilinta) 90 mg PO BID blood thinner 90 days #180 tabs 10/26/24 albuterol sulfate 90 mcg/actuation aerosol inhaler (Ventolin HFA) 2 puff inhalation Q4H PRN PRN Wheezing ##1 02/06/25 ascorbate calcium (vitamin C) 500 mg tablet 1 g PO DAILY vitamin 02/06/25 cranberry [id number] coagulans 250 mg-30 mg-15 mg tablet (Azo Cranberry Plus Probiotic) 2 tab PO DAILY supplement 02/06/25 ondansetron 4 mg disintegrating tablet 4 mg PO Q6H PRN PRN Nausea #15 tabs 02/06/25 nitroglycerin 0.4 mg sublingual tablet 0.4 mg sublingual Q5-15M PRN chest pain #25 tabs 02/07/25 pantoprazole 40 mg tablet,delayed release (Protonix) 40 mg PO DAILY reflux #90 tabs 02/22/25 polysaccharide iron complex 150 mg iron capsule (Ferrex) 150 mg PO DAILY supplement 90 days #90 caps 02/22/25 omeprazole 40 mg capsule,delayed release 40 mg PO DAILY reflux 03/03/25 03/04/25 1632 <Electronically signed by Rohit may> Date _ Rohit Hartmann Cosigner Signature (if applicable): Date CC: ~ Signed [facility] Work Phone: 1(492) 366-211605-12-2025 Discharge summary Author Clyde Long [facility] Note Date/Time March 04, 2025 4:26p [facility] Medical Records Department [address] [place] [address] Discharge Summary 03/04/25 1614 MR#: [id number] Acct: [id number] Name: MILY LONG Rep #:[id number] : 1960 64 From: Clyde Long DO PCP: Dr. Florin Bailey DO Status:ADM IN Location: [place] [address] Providers Date of Admission: 03/03/25 Primary Care Physician: Dr. Florin Bailey DO Consultations 03/03/25 08:27 Consult: Gastroenterology Routine Consulting Provider: [facility] Reason for Consult: GI bleed EMERGENT Consult: No MD Notified: Yes Date Notified: 03/03/25 Time Notified: 07:16 Method of Notification: ED Physician Initiated Reason For Visit: SYMPTOMATIC ANEMIA, GI BLEED Diagnosis Discharge Diagnosis (1) Anemia: Status: Acute Code(s): D64.9 - Anemia, unspecified Plan: Acute, symptomatic. Recurrent. No obvious bleeding but was heme positive in the emergency room. Patient does have noted diverticulosis on her previous colonoscopy which I suspect would probably be the source of her bleeding complicated by the fact that she is on aspirin and ticagrelor. Patient received a unit of blood here in the emergency room. Will monitor her hemoglobin. Given her recent PCI, goal hemoglobin to be around 8. Hemoglobin was 8.3, down to 7.6 today, but then recurrent blood was 8.4. Hold off on transfusion for now. Though I do not feel that it is upper we will change her PPI to IV twice daily for now. Receiving IV iron. (2) GI bleed: Status: Acute Code(s): K92.2 - Gastrointestinal hemorrhage, unspecified Plan: No marlyn bleeding but heme positive. COOPER Cotto, outpt capsule endoscopy. Follow up with him as outpatient. Brock mitchell. Plan CAD: Patient had PCI in September 2024. Patient needs to continue dual antiplatelet therapy as well as atorvastatin. Hypertension: Continue with lisinopril metoprolol. ANDRIA: pt awoke with shortness of breath. I suspect this may have been an apneic episode from sleep apnea and subsequently found to be anemic. VTE prophylaxis with SCDs CODE STATUS: Addressed with the patient. Patient wishes to be full code. On 03/03 it was reported to me that the patient was anxious. I went to see the patient and she appeared calm but there were 2 younger people in the room. I wasspeaking with the woman in the room about the anemia, and mentioned that the patient that the patient just came in, meaning just admitted. The man in the room yelled saying that she didn't just come in, but has been admitted before for similar. Continuing to yell, he demanded that the patient be transferred. I asked him to where would he like the patient be transferred to he [facility]. I clarified with this man that he wanted the patient transferred to [facility], he responded yes (not yelling at this point), but stated that it would be ultimately up to the patient (this man did not establish any eye contact with me during his berating of me). I then asked the patient if she wished to be transferred to [facility] and she politely declined to answerat that time. Medications at Discharge Home Medications aspirin 81 mg tablet,delayed release 81 mg PO DAILY@0800 heart health 90 days #90 tabs 10/11/24 atorvastatin 40 mg tablet 40 mg PO QHS cholesterol 90 days #90 tabs 10/26/24 lisinopril 2.5 mg tablet 2.5 mg PO DAILY blood pressure 90 days #90 tabs 10/26/24 metoprolol succinate 25 mg tablet,extended release 24 hr (Toprol XL) 25 mg PO DAILY heart 90 days #90 tabs 10/26/24 ticagrelor 90 mg tablet (Brilinta) 90 mg PO BID blood thinner 90 days #180 tabs 10/26/24 albuterol sulfate 90 mcg/actuation aerosol inhaler (Ventolin HFA) 2 puff inhalation Q4H PRN PRN Wheezing ##1 02/06/25 ascorbate calcium (vitamin C) 500 mg tablet 1 g PO DAILY 02/06/25 cranberry [id number] coagulans 250 mg-30 mg-15 mg tablet (Azo Cranberry Plus Probiotic) 2 tab PO DAILY supplement 02/06/25 ondansetron 4 mg disintegrating tablet 4 mg PO Q6H PRN PRN Nausea #15 tabs 02/06/25 nitroglycerin 0.4 mg sublingual tablet 0.4 mg sublingual Q5-15M PRN chest pain #25 tabs 02/07/25 pantoprazole 40 mg tablet,delayed release (Protonix) 40 mg PO DAILY #90 tabs 02/22/25 polysaccharide iron complex 150 mg iron capsule (Ferrex) 150 mg PO DAILY 90 days#90 caps 02/22/25 omeprazole 40 mg capsule,delayed release 40 mg PO DAILY 03/03/25 Hospital Course Operations None Procedures None Summary of Care Provided Minutes Spent on Discharge: 35 Hospital Course: Patient presents with shortness of breath. She woke at home and was short of breath. Presented to the emergency room where hemoglobin is noted to be 6.2. She was transfused 2 units of packed red blood cells and her hemoglobin went up to 8.3. She did have a hemoglobin that went down to 7.6 but the follow-up hemoglobin was 8.4. So she did not require any additional transfusions. Am notsure the anemia caused her to acutely wake up but she does have a history of sleep apnea so she may have woken up due to an apneic episode related to sleep apnea. Nonetheless, patient was anemic. Patient was seen in consultation by Dr. Cotto of gastroenterology. He recommends an outpatient capsule endoscopy. She did receive IV iron while she was here and did have some iron studies performed which were pending at the time of this dictation. Weight / BMI Weight Weight: 71.469 kg Body Mass Index (BMI) 24.6 ABG / Lab / Microbiology Data 03/04/25 09:45 03/04/25 02:58 Laboratory: Laboratory Results - last 24 hr 03/03/25 02:35: Crossmatch See Detail 03/03/25 19:55: Hgb 8.4 L, Hct 27.0 L 03/04/25 02:58: WBC 9.8, RBC 2.45 L, Hgb 7.6 L, Hct 24.4 L, MCV 99.6 H D, MCH 31.0, MCHC 31.1 L, RDW Std Deviation 80.7 H, RDW Coeff of Gerber 22.7 H, Plt Count 154, MPV 10.0, Immature Gran % (Auto) 0.500, Neut % (Auto) 78.8 H, Lymph % (Auto) 13.0 L, Daggett % (Auto) 4.7, Eos % (Auto) 2.2, Baso % (Auto) 0.8, Absolute Neuts (auto) 7.7, Absolute Lymphs (auto) 1.27, Nucleated RBC % 0, Differential Comment SCANNED, Platelet Estimate ADEQUATE, Anisocytosis 3+, Ovalocytes 1+, Sodium 142, Potassium 3.9, Chloride 111 H, Carbon Dioxide 19.3 L, Anion Gap 11, BUN 16, Creatinine 1.00, Estim Creat Clear Calc 53.81, Est GFR (MDRD) Non-Af 62,BUN/Creatinine Ratio 15.9, Glucose 92, Calcium 9.0, Iron 33 L, TIBC 290, Iron Saturation 11.0 L, Unsaturated IBC 257, Ferritin 92 03/04/25 09:45: Hgb 8.4 L, Hct 27.2 L, Retic Count 9.26 H, Immature Retic Fraction 30.70 H, Retic Hgb Equivalent 30.4 Microbiology: Microbiology 03/03/25 03:58 Stool Stool Occult Blood (BHAVESH) - Final Occult Blood Positive D/C Instructions Discharge Diet: Low fat / Low cholesterol DC O2, CPAP, BIPAP Needs Home O2 Discharge instructions: No Meaningful Use Info Meaningful Use Meaningful Use Diagnoses (Choose all that apply): None applicable Ischemic Stroke Statin Dosing Therapy Reference: STATIN DOSE THERAPY REFERENCE: * Patients > 75 years receive moderate or high dose statin therapy. * Patients 75 years or YOUNGER should receive HIGH intensity statin dose unless contraindicated. You will be required to document reason for non-treatment if statin daily dose does not meet guidelines. HIGH DOSE STATIN THERAPY DAILY Atorvastatin > than or = to 40 mg Rosuvastatin > than or = to 20 mg Amlodipine + Atorvastatin > than or = to 2.5/40 mg Ezetimibe + Simvastatin 10/80 mg Simvastatin 80mg Discharge Plan Admission Admit Date/Time: 03/03/25 07:13 Primary Reason for Your Visit: anemia Attending Provider: Clyde Long Primary Care Provider: Florin Bailey Instructions Additional Instructions / Restrictions: You had anemia and required 2 units of blood. Your blood count has remained stable (you did have a level that was lower, but that was an outlier since the rest of your blood work [before and after] were stable). I would like for you tofollow up with your primary care physician to have blood work later this week and next week to continue to monitor your blood count. Notify your physician if you notice blood in stool or vomit. Please follow up with Dr. Cotto in the next 2-4 weeks for capsule endoscopy. Discharge Orders/Prescriptions Prescriptions: Continued lisinopril 2.5 mg tablet 2.5 mg PO DAILY 90 Days Qty: 90 3RF Patient Comments: pt told yesterday if BP is less than 99, not to take med. pt has not taken since 02/04/25 metoprolol succinate [Toprol XL] 25 mg tablet extended release 24 hr 25 mg PO DAILY 90 Days Qty: 90 3RF Brilinta 90 mg tablet 90 mg PO BID 90 Days Qty: 180 3RF atorvastatin 40 mg tablet 40 mg PO QHS 90 Days Qty: 90 3RF nitroglycerin 0.4 mg tablet, sublingual 0.4 mg sublingual Q5-15M PRN (Reason: chest pain) Qty: 25 3RF Rx Instructions: do not exceed 3 doses per episode aspirin 81 mg Tablet,Delayed Release (Dr/Ec) 81 mg PO DAILY@0800 90 Days Qty: 90 3RF ascorbate calcium (vitamin C) 500 mg tablet 1 g PO DAILY Azo Cranberry Plus Probiotic 250-30-15 mg tablet 2 tab PO DAILY albuterol sulfate [Ventolin HFA] 90 mcg/actuation HFA aerosol inhaler 2 puff inhalation Q4H PRN PRN (Reason: Wheezing) Qty: 1 0RF Rx Instructions: with spacer ondansetron 4 mg tablet,disintegrating 4 mg PO Q6H PRN PRN (Reason: Nausea) Qty: 15 0RF polysaccharide iron complex [Ferrex 150] 150 mg iron Capsule 150 mg PO DAILY 90 Days Qty: 90 0RF pantoprazole [Protonix] 40 mg tablet,delayed release (DR/EC) 40 mg PO DAILY Qty: 90 0RF omeprazole 40 mg capsule,delayed release(DR/EC) 40 mg PO DAILY Referrals / Follow Up: Florin Bailey DO [Primary Care Provider] - Disposition Disposition (needs filled in before D/C Order can be placed): Home, Self Care Charges/Coding Visit Charges Inpatient E&M: 96989 Disch Hosp >30min 03/04/25 1626 <Electronically signed by Clyde Long DO> Cosigner Signature (if applicable): CC: Dr. Clyde Long DO; Dr. Florin Bailey DO~ Signed [facility] Work Phone: 1(837) 395-540905-12-2025 [facility]05-12-2025 Progress note Author Clyde [facility] Note Date/Time March 04, 2025 12:20 pm [facility] Medical Records Department [address] [place] [address] Progress Note - Hospitalist 03/04/25 0730 MR#: [id number] Acct: [id number] Name: MILY LONG Rep #:[id number] : 1960 64 From: Clyde Long DO PCP: Dr. Florin Bailey DO Status:ADM IN Location: [place] [address] Reason for Visit Reason for Visit: Diagnoses Anemia, unspecified (03/03/25) Gastrointestinal hemorrhage, unspecified (03/03/25) Subjective Subjective Epigastric pain. Objective Data Objective Data Vital Signs: Vital Signs Temp Pulse Resp BP Pulse Ox O2 Del Method O2 Flow Rate 36.6 C 94 18 109/53 L 96 Room Air 2 03/04/25 03:00 03/04/25 03:00 03/04/25 03:00 03/04/25 03:00 03/04/25 03:00 03/04/25 03:00 03/03/25 12:31 Oxygen Flow Rate (L/min) 2 Oxygen Delivery Method Room Air Weight: 71.469 kg Body Mass Index (BMI) 24.6 Intake & Output: Intake and Output for Last 24 Hours 03/02/25 03/03/25 03/04/25 23:59 23:59 23:59 Intake Total 2069 Balance 2069 Lab / Micro Data 03/04/25 09:45 03/04/25 02:58 Labs: Laboratory Results - last 24 hr 03/03/25 02:35: Crossmatch See Detail 03/03/25 08:00: Troponin T Hi Sens 4Hr 19 H 03/03/25 08:43: Hgb 8.3 L, Hct 26.4 L 03/03/25 14:26: Hgb 8.4 L, Hct 26.2 L 03/03/25 19:55: Hgb 8.4 L, Hct 27.0 L 03/04/25 02:58: WBC 9.8, RBC 2.45 L, Hgb 7.6 L, Hct 24.4 L, MCV 99.6 H D, MCH 31.0, MCHC 31.1 L, RDW Std Deviation 80.7 H, RDW Coeff of Gerber 22.7 H, Plt Count 154, MPV 10.0, Immature Gran % (Auto) 0.500, Neut % (Auto) 78.8 H, Lymph % (Auto) 13.0 L, Daggett % (Auto) 4.7, Eos % (Auto) 2.2, Baso % (Auto) 0.8, Absolute Neuts (auto) 7.7, Absolute Lymphs (auto) 1.27, Nucleated RBC % 0, Differential Comment SCANNED, Platelet Estimate ADEQUATE, Anisocytosis 3+, Ovalocytes 1+, Sodium 142, Potassium 3.9, Chloride 111 H, Carbon Dioxide 19.3 L, Anion Gap 11, BUN 16, Creatinine 1.00, Estim Creat Clear Calc 53.81, Est GFR (MDRD) Non-Af 62,BUN/Creatinine Ratio 15.9, Glucose 92, Calcium 9.0 Micro: Microbiology 03/03/25 03:58 Stool Stool Occult Blood (BHAVESH) - Final Occult Blood Positive Rhythm Strip Rhythm Strip: Sinus Rhythm Rate: 91 Ectopy: None Physical Exam Const alert and no apparent distress HEENT head/scalp atraumatic and moist oral mucous membranes Neck no lymphadenopathy Resp normal respiratory effort, no retractions, no use of accessory muscles and clearto auscultation bilaterally Cardio regular rate, regular rhythm, S1 normal heart sound and S2 normal heart sound GI normal to inspection, nondistended, normoactive bowel sounds, soft to palpation,non-tender and non-distended Extremity normal to inspection and full ROM Neuro Sensorium / Orientation: awake and alert Assessment & Plan Assessment/Plan (1) Anemia: PLAN: Acute, symptomatic. Recurrent. No obvious bleeding but was heme positive in the emergency room. Patient does have noted diverticulosis on her previous colonoscopy which I suspect would probably be the source of her bleeding complicated by the fact that she is on aspirin and ticagrelor. Patient received a unit of blood here in the emergency room. Will monitor her hemoglobin. Given her recent PCI, goal hemoglobin to be around 8. Hemoglobin was 8.3, down to 7.6 today, but then recurrent blood was 8.4. Hold off on transfusion for now. Though I do not feel that it is upper we will change her PPI to IV twice daily for now. (2) GI bleed: PLAN: No marlyn bleeding but heme positive. Suspect diverticular. GI on consult. Unless patient starts actively hemorrhaging, I do not feel that CT angiogram would be necessary at this time. PLAN: Plan CAD: Patient had PCI in September 2024. Patient needs to continue dual antiplatelet therapy as well as atorvastatin. Hypertension: Continue with lisinopril metoprolol. ANDRIA: pt awoke with shortness of breath. I suspect this may have been an apneic episode from sleep apnea and subsequently found to be anemic. VTE prophylaxis with SCDs CODE STATUS: Addressed with the patient. Patient wishes to be full code. On 03/03 it was reported to me that the patient was anxious. I went to see the patient and she appeared calm but there were 2 younger people in the room. I wasspeaking with the woman in the room about the anemia, and mentioned that the patient that the patient just came in, meaning just admitted. The man in the room yelled saying that she didn't just come in, but has been admitted before for similar. Continuing to yell, he demanded that the patient be transferred. I asked him to where would he like the patient be transferred to he said [place]. I clarified with this man that he wanted the patient transferred to [facility], he responded yes (not yelling at this point), but stated that it would be ultimately up to the patient (this man did not establish any eye contact with me during his berating of me). I then asked the patient if she wished to be transferred to [facility] and she politely declined to answerat that time. Charges/Coding Visit Charges Inpatient E&M: 77194 Subs Hosp L2 03/04/25 1220 <Electronically signed by Clyde Long DO> Cosigner Signature (if applicable): CC: ~ Signed [facility] Work Phone: [phone] 509-720505-11-2025 History and physical note Author Clyde Long [facility] Note Date/Time March 03, 2025 7:49a m [facility] Medical Records Department [address] [place] [address] H&P Exam - Hospitalist 03/03/25 0738 MR#: [id number] Acct: [id number] Name: MILY LONG Rep #:[id number] : 1960 64 From: Clyde Long DO PCP: Dr. Florin Bailey, DO Status:ADM SABINO Location: [place] [address] HPI - General General Date of Admission: 03/03/25 Date of Service: 03/03/25 Chief Complaint: shortness of breath. HPI Narrative MILY LONG, is a 64 F who presents with shortness of breath. Symptoms began this AM and awoke her from sleep. She denies Chest/abd pain. Has chronic black stools from iron, but denies any change. No hematochezia/hematemesis. No abnormal bruising. She presented with a Hg of 6.2. She was ordered 1 unit of PRBCs and has subsequently been transfused. She is feeling better at this time. Dr. Cotto, of , was contacted and would see the patient in consultation. Patient did get very short of breath going to the bathroom but felt to be patient did receive a dose of lorazepam. Patient was hospitalized from 02/18- EGD showed Grad A erosive esophagitis; colonoscopy showed poor prep, moderate diverticulosis w/o bleeding. [facility] Medical History GERD (gastroesophageal reflux disease) Smoker CPAP (continuous positive airway pressure) dependence Non-ST elevation NV (NSTEMI) Hematuria UTI (urinary tract infection) Hyperlipidemia Atherosclerosis of coronary artery of [place] heart without angina pectoris Myocardial infarct Home Medications ?Medication ?Instructions ?Recorded ?Last Taken ?Type aspirin 81 mg tablet,delayed 81 mg PO DAILY@0800 heart health 10/11/24 02/18/25 Rx release 90 days #90 tabs atorvastatin 40 mg tablet 40 mg PO QHS cholesterol 90 days 10/26/24 02/17/25 Rx #90 tabs lisinopril 2.5 mg tablet 2.5 mg PO DAILY blood pressu re 90 10/26/24 02/04/25 Rx days #90 tabs metoprolol succinate 25 mg 25 mg PO DAILY heart 90 day s #90 10/26/24 02/21/25 Rx tablet,extended release 24 hr tabs (Toprol XL) ticagrelor 90 mg tablet (Brilinta) 90 mg PO BID blood thinner 90 days 10/26/24 02/18/25 Rx #180 tabs albuterol sulfate 90 mcg/actuation 2 puff inhalation Q 4H PRN PRN 02/06/25 Unknown Rx aerosol inhaler (Ventolin HFA) Wheezing ##1 ascorbate calcium (vitamin C) 500 1 g PO DAILY 5 02/05/25 History mg tablet cranberry [id number] 2 tab PO DAILY supplement 02/05/25 History coagulans 250 mg-30 mg-15 mg tablet (Azo Cranberry Plus Probiotic) ondansetron 4 mg disintegrating 4 mg PO Q6H PRN PRN Na usea #15 tabs 02/06/25 02/17/25 Rx tablet nitroglycerin 0.4 mg sublingual 0.4 mg sublingual Q5-1 5M PRN chest 02/07/25 Unknown Rx tablet pain #25 tabs pantoprazole 40 mg tablet,delayed 40 mg PO DAILY #90 t abs 02/22/25 Unknown Rx release (Protonix) polysaccharide iron complex 150 mg 150 mg PO DAILY 90 days #90 caps 02/22/25 Unknown Rx iron capsule (Ferrex) omeprazole 40 mg capsule,delayed 40 mg PO DAILY Unknown History release Allergy/AdvReac Type Severity Reaction Status Date / Time Penicillins Allergy Hives Verified 03/03/25 02:22 Sulfa (Sulfonamide AdvReac Diarrhea Verified 03/03/25 02:22 Antibiotics) Family History Father CAD (coronary artery disease) CABG age 68; CVA (cerebral vascular accident) Myocardial infarction Mother Cancer Cervical, Melanoma, Colon Surgical History Status post cardiac surgery History of coronary artery stent placement History of carpal tunnel surgery of left wrist History of coronary artery stent placement (02/04/25) Social History household members: spouse housing: house Smoking Status: Current every day smoker tobacco type: cigarettes second hand exposure: No ROS ROS Narrative All review of systems were negative except as mentioned above in the history of present illness and the other review of systems. Vital Signs Vital Signs Vital Signs: 03/03/25 02:20 03/03/25 02:50 03/03/25 02:59 Temperature 36.6 C Temperature Source Oral Pulse Rate 95 Respiratory Rate 18 Respiratory Effort Normal Respiratory Depth Normal Respiratory Pattern Normal Blood Pressure 130/67 H Blood Pressure Mean 88 Blood Pressure Source Blood Pressure Position Blood Pressure Location Pulse Ox 99 Oxygen Delivery Method Room Air Room Air Room Air Oxygen Flow Rate (L/min) 03/03/25 02:59 03/03/25 03:20 03/03/25 04:00 Temperature Temperature Source Pulse Rate 87 103 H Respiratory Rate 27 H 21 H Respiratory Effort Respiratory Depth Respiratory Pattern Blood Pressure 111/50 L 111/61 Blood Pressure Mean 70 77 Blood Pressure Source Blood Pressure Position Blood Pressure Location Pulse Ox 96 97 100 Oxygen Delivery Method Room Air Room Air Room Air Oxygen Flow Rate (L/min) 03/03/25 05:00 03/03/25 05:43 03/03/25 05:58 Temperature 36.5 C L 36.5 C L Temperature Source Temporal Temporal Pulse Rate 105 H 107 H 102 H Respiratory Rate 22 H 25 H 22 H Respiratory Effort Respiratory Depth Respiratory Pattern Blood Pressure 116/49 L 116/55 L 152/66 H Blood Pressure Mean 71 75 94 Blood Pressure Source Monitor Monitor Blood Pressure Position Semi-Fowlers Semi-Fowlers Blood Pressure Location Left Arm Left Arm Pulse Ox 98 96 95 Oxygen Delivery Method Room Air Room Air Room Air Oxygen Flow Rate (L/min) 03/03/25 06:00 03/03/25 06:47 03/03/25 07:00 Temperature 36.2 C L Temperature Source Temporal Pulse Rate 101 H 82 80 Respiratory Rate 24 H 20 H 23 H Respiratory Effort Respiratory Depth Respiratory Pattern Normal Blood Pressure 126/53 H 101/48 L Blood Pressure Mean 77 65 Blood Pressure Source Monitor Blood Pressure Position Semi-Fowlers Blood Pressure Location Left Arm Pulse Ox 96 99 Oxygen Delivery Method Nasal Cannula Room Air Oxygen Flow Rate (L/min) 2 03/03/25 07:24 Temperature 36.1 C L Temperature Source Pulse Rate 87 Respiratory Rate 23 H Respiratory Effort Respiratory Depth Respiratory Pattern Blood Pressure 104/54 L Blood Pressure Mean 70 Blood Pressure Source Blood Pressure Position Blood Pressure Location Pulse Ox 100 Oxygen Delivery Method Oxygen Flow Rate (L/min) Weight Weight: 74.7 kg Body Mass Index (BMI) 25.7 Physical Exam Narrative - Physical Exam General: Alert, Oriented x3, Cooperative HEENT: Atraumatic, PERRLA, EOMI, Normocephalic Oral: Moist Mucosa, No Gingival or Mucosal Lesions/ Ulcerations Neck: Supple, No JVD, Negative Carotid Bruits Lungs: Clear to auscultation, Normal air movement Cardiovascular: Regular rate, Normal S1, Normal S2, No murmurs Abdomen: Bowel Sounds Present, Soft, Non Tender, Non-Distended, No Hepato-splenomegaly Extremities: No clubbing, No cyanosis, No edema Skin: No rashes, No breakdown Musculoskeletal: No Tenderness to Palpation of Joints or Extremities Neurological: Neuro grossly intact Psych/Mental Status: Normal Affect, Appropriate Results Lab / Micro Data Attestation: I reviewed the patient's lab results. 03/03/25 02:35 03/03/25 02:35 Labs: Laboratory Results - last 24 hr 03/03/25 02:35: WBC 9.9, RBC 1.91 L, Hgb 6.2 L, Hct 20.4 L, MCV 106.8 H, MCH 32.5 H, MCHC 30.4 L, RDW Std Deviation 70.3 H, RDW Coeff of Gerber 18.6 H, Plt Count 184, MPV 10.3, Immature Gran % (Auto) 0.500, Neut % (Auto) 69.3, Lymph % (Auto) 22.1, Daggett % (Auto) 5.1, Eos % (Auto) 2.5, Baso % (Auto) 0.5, Absolute Neuts (auto) 6.9, Absolute Lymphs (auto) 2.19, Nucleated RBC % 0, Anisocytosis 1+, PT 13.7, INR 1.0, APTT 25.9, D-Dimer Quant (PE/DVT) 0.58 H*, Sodium Cancelled 03/03/25 02:35: Sodium 141, Potassium Cancelled 03/03/25 02:35: Potassium 3.9, Chloride Cancelled 03/03/25 02:35: Chloride 108, Carbon Dioxide Cancelled 03/03/25 02:35: Carbon Dioxide 21.3, Anion Gap Cancelled 03/03/25 02:35: Anion Gap 12, BUN Cancelled 03/03/25 02:35: BUN 26 H, Creatinine Cancelled 03/03/25 02:35: Creatinine 1.25 H, Estim Creat Clear Calc Cancelled 03/03/25 02:35: Estim Creat Clear Calc 46.71 L, Est GFR (MDRD) Non-Af Cancelled 03/03/25 02:35: Est GFR (MDRD) Non-Af 48 L, BUN/Creatinine Ratio Cancelled 03/03/25 02:35: BUN/Creatinine Ratio 21.0 H, Glucose Cancelled 03/03/25 02:35: Glucose 114 H, Calcium Cancelled 03/03/25 02:35: Calcium 9.0, Magnesium 2.0, Total Bilirubin 0.26, Direct Bilirubin 0.13, AST 21, ALT 35, Alkaline Phosphatase 58, Troponin T High Sens 21H D, NT pro BNP II Cancelled 03/03/25 02:35: NT pro BNP II 531, Total Protein 6.0, Albumin 3.6, Globulin 2.4,Lipase 52, Blood Type A NEGATIVE, ABO/Rh Cancelled, A1 Subgroup Cancelled, A1 Antigen Typing Cancelled, Rho(D) Tech Interpret Cancelled, Antibody Screen NEGATIVE, Crossmatch See Detail 03/03/25 05:42: Troponin T Hi Sens 2 Hr 21 H Micro: Microbiology 03/03/25 03:58 Stool Stool Occult Blood (BHAVESH) - Final Occult Blood Positive ABG Data ABG results: ABG 03/03/25 06:13 Specimen Type ART Sample Site R Radial pH 7.48 H Bicarbonate Actual 18.0 L Total CO2 19 Base Excess -6 L O2 Saturation 71 L ABG pCO2 24.3 L ABG pO2 34 L* Alvaro Test Positive O2 Delivery Device Not entered Vent Mode Not entered Crit Call To/Read Back Yes Rhythm Strip Rhythm Strip: Sinus Rhythm Rate: 91 Ectopy: None EKG Initial EKG: Attestation: I personally reviewed and interpreted this EKG as follows: Prior EKG tracings: available for review EKG Rhythm Intrepretation: Sinus Rhythm Imaging Radiology Impression Chest X-Ray 03/03/25 03:05 IMPRESSION: No radiographic evidence of an acute abnormality. Reading Location: [place] [address] Assessment & Plan Assessment/Plan (1) Anemia: PLAN: Acute, symptomatic. Recurrent. No obvious bleeding but was heme positive in the emergency room. Patient does have noted diverticulosis on her previous colonoscopy which I suspect would probably be the source of her bleeding complicated by the fact that she is on aspirin and ticagrelor. Patient received a unit of blood here in the emergency room. Will monitor her hemoglobin. Given her recent PCI, goal hemoglobin to be around 8. Though I do not feel that it is upper we will change her PPI to IV twice daily for now. (2) GI bleed: PLAN: No marlyn bleeding but heme positive. Suspect diverticular. GI on consult. Unless patient starts actively hemorrhaging, I do not feel that CT angiogram would be necessary at this time. PLAN: Plan CAD: Patient had PCI in September 2024. Patient needs to continue dual antiplatelet therapy as well as atorvastatin. Hypertension: Continue with lisinopril metoprolol. VTE prophylaxis with SCDs CODE STATUS: Addressed with the patient. Patient wishes to be full code. Charges/Coding Visit Charges Inpatient E&M: 92439 Init Hosp L3 03/03/25 0749 <Electronically signed by Clyde Long DO> Cosigner Signature (if applicable): CC: Dr. Clyde Long, DO; Dr. Florin Bailey, DO~ Signed [facility] Work Phone: [phone] Discharge summary Author Swati [facility] Note Date/Time March 03, 2025 7:23a m [facility] Medical Records Department [address] [place] [address] Emergency Department Summary 03/03/25 MR#: [id number] Acct: [id number] Name: MILY LONG Rep #:[id number] : 1960 64 From: Swati Reyes PCP: Dr. Florin Bailey DO Status:REG ER Location: ED HPI History of Present Illness Chief Complaint: Shortness of Breath Informant: patient Narrative Narrative: Patient is a 64-year-old female with history of recent GI bleeding as well as STEMI (now on Brilinta and aspirin) presenting with palpitations and generalizedmalaise as well as shortness of breath. She states she has been feeling good for couple days and this is after her second ER visit in the last 2 days. She notes tonight around 130 she woke up and felt like she could not breathe. She states that she has been feeling short of breath with exertion. She went to drink some water this morning and was nauseous but denies any vomiting. She states she has been feeling lightheaded. She had some mild swelling of her right leg. Denies history of DVT or PE. No she is continue to have dark stoolsbut attributes that to not being on iron. Does folic her heart is racing. Did have a recent Holter monitor and actually brought the monitor ends to return it. Has been having epigastric discomfort and indigestion. No report of any vomiting. No other complaints or concerns at this time. Chart review shows that patient had a colonoscopy on 02/21/2025 which showed a 5 mm polyp at the splenic flexure which was removed using jumbo cold forceps as well as all single large localized angiodysplastic lesion with bleeding in the descending colon. 1 hemostatic clip was placed. On 02/19/2025 patient had an EGD which showed esophagitis with no bleeding and a medium size hiatal hernia. No other acute process. Patient was admitted 02/18 through 02/22 for GI bleeding. She had recently been started on dual antiplatelet therapy because of the stents that was placed secondary to coronary artery disease. Patient went down to 7.8. Did receive iron transfusion. [facility] Medical History GERD (gastroesophageal reflux disease) Smoker CPAP (continuous positive airway pressure) dependence Non-ST elevation NV (NSTEMI) Hematuria UTI (urinary tract infection) Hyperlipidemia Atherosclerosis of coronary artery of [place] heart without angina pectoris Myocardial infarct Home Medications ?Medication ?Instructions ?Recorded ?Last Taken ?Type aspirin 81 mg tablet,delayed 81 mg PO DAILY@0800 heart health 10/11/24 02/18/25 Rx release 90 days #90 tabs atorvastatin 40 mg tablet 40 mg PO QHS cholesterol 90 days 10/26/24 02/17/25 Rx #90 tabs lisinopril 2.5 mg tablet 2.5 mg PO DAILY blood pressu re 90 10/26/24 02/04/25 Rx days #90 tabs metoprolol succinate 25 mg 25 mg PO DAILY heart 90 day s #90 10/26/24 02/21/25 Rx tablet,extended release 24 hr tabs (Toprol XL) ticagrelor 90 mg tablet (Brilinta) 90 mg PO BID blood thinner 90 days 10/26/24 02/18/25 Rx #180 tabs albuterol sulfate 90 mcg/actuation 2 puff inhalation Q 4H PRN PRN 02/06/25 Unknown Rx aerosol inhaler (Ventolin HFA) Wheezing ##1 ascorbate calcium (vitamin C) 500 1 g PO DAILY 5 02/05/25 History mg tablet cranberry [id number] 2 tab PO DAILY supplement 02/05/25 History coagulans 250 mg-30 mg-15 mg tablet (Azo Cranberry Plus Probiotic) ondansetron 4 mg disintegrating 4 mg PO Q6H PRN PRN Na usea #15 tabs 02/06/25 02/17/25 Rx tablet nitroglycerin 0.4 mg sublingual 0.4 mg sublingual Q5-1 5M PRN chest 02/07/25 Unknown Rx tablet pain #25 tabs pantoprazole 40 mg tablet,delayed 40 mg PO DAILY #90 t abs 02/22/25 Unknown Rx release (Protonix) polysaccharide iron complex 150 mg 150 mg PO DAILY 90 days #90 caps 02/22/25 Unknown Rx iron capsule (Ferrex) omeprazole 40 mg capsule,delayed 40 mg PO DAILY Unknown History release Allergy/AdvReac Type Severity Reaction Status Date / Time Penicillins Allergy Hives Verified 03/03/25 02:22 Sulfa (Sulfonamide AdvReac Diarrhea Verified 03/03/25 02:22 Antibiotics) Family History Father CAD (coronary artery disease) CABG age 68; CVA (cerebral vascular accident) Myocardial infarction Mother Cancer Cervical, Melanoma, Colon Surgical History Status post cardiac surgery History of coronary artery stent placement History of carpal tunnel surgery of left wrist History of coronary artery stent placement (02/04/25) Social History household members: spouse housing: house Smoking Status: Current every day smoker tobacco type: cigarettes second hand exposure: No ROS ROS ED Constitutional Constitutional ED: Denies chills or fever(s) Eyes Eyes: Denies change in vision ENT ENT ED: Denies sore throat Cardiovascular Cardiovascular: Reports chest pain and racing heartbeat Respiratory/Chest Respiratory/Chest: Reports dyspnea and dyspnea on exertion; Denies sputum Gastrointestinal Gastrointestinal: Reports melena and nausea; Denies abdominal pain or vomiting Musculoskeletal Musculoskeletal: Denies arthralgias or myalgias Integumentary Denies rash Neurologic Neurologic: Reports weakness Hematologic/Lymphatic Hematologic/Lymphatic: Denies easy bleeding or easy bruising EXAM Physical Exam Const Vital Signs: 03/03/25 02:20 03/03/25 02:50 03/03/25 02:59 Temperature 97.8 F Temperature Source Oral Pulse Rate 95 Respiratory Rate 18 Respiratory Effort Normal Respiratory Depth Normal Respiratory Pattern Normal Blood Pressure 130/67 H Blood Pressure Mean 88 Blood Pressure Source Blood Pressure Position Blood Pressure Location Pulse Ox 99 Oxygen Delivery Method Room Air Room Air Room Air Oxygen Flow Rate (L/min) 03/03/25 02:59 03/03/25 03:20 03/03/25 04:00 Temperature Temperature Source Pulse Rate 87 103 H Respiratory Rate 27 H 21 H Respiratory Effort Respiratory Depth Respiratory Pattern Blood Pressure 111/50 L 111/61 Blood Pressure Mean 70 77 Blood Pressure Source Blood Pressure Position Blood Pressure Location Pulse Ox 96 97 100 Oxygen Delivery Method Room Air Room Air Room Air Oxygen Flow Rate (L/min) 03/03/25 05:00 03/03/25 05:43 03/03/25 05:58 Temperature 97.7 F L 97.7 F L Temperature Source Temporal Temporal Pulse Rate 105 H 107 H 102 H Respiratory Rate 22 H 25 H 22 H Respiratory Effort Respiratory Depth Respiratory Pattern Blood Pressure 116/49 L 116/55 L 152/66 H Blood Pressure Mean 71 75 94 Blood Pressure Source Monitor Monitor Blood Pressure Position Semi-Fowlers Semi-Fowlers Blood Pressure Location Left Arm Left Arm Pulse Ox 98 96 95 Oxygen Delivery Method Room Air Room Air Room Air Oxygen Flow Rate (L/min) 03/03/25 06:00 03/03/25 06:47 03/03/25 07:00 Temperature 97.2 F L Temperature Source Temporal Pulse Rate 101 H 82 80 Respiratory Rate 24 H 20 H 23 H Respiratory Effort Respiratory Depth Respiratory Pattern Normal Blood Pressure 126/53 H 101/48 L Blood Pressure Mean 77 65 Blood Pressure Source Monitor Blood Pressure Position Semi-Fowlers Blood Pressure Location Left Arm Pulse Ox 96 99 Oxygen Delivery Method Nasal Cannula Room Air Oxygen Flow Rate (L/min) 2 Positive well nourished and well developed Constitutional Narrative: Uncomfortable appearing General Appearance ED: well developed and pallor HEENT Reports dry mucous membranes Mouth ED: Yes dry mucous membranes Mouth: dry mucous membranes Eyes EOMs intact bilaterally General Eye ED: Yes pale conjunctiva Neck supple and no JVD Resp normal respiratory effort Resp Narrative: Bibasilar diminished breath sounds present. No crackles appreciated. Cardio regular rate and regular rhythm GI non-tender and non-distended GI Narrative: Chaperoned rectal exam performed. Patient has dark stool but not completely melanotic. Is guaiac positive. Extremity normal to inspection Extremity Narrative: Trace pitting edema of the lower extremities, slightly more pronounced on the right compared to the left. Compartments are soft. Neuro oriented x3 Sensorium / Orientation: alert Motor Exam: general weakness Psych mental status grossly normal Skin General Skin Exam: pallor; Negative for jaundice Rashes: no rashes MDM MDM MDM Narrative Medical decision making narrative: Patient evaluated for worsening shortness of breath. Woke up at 130 feeling shecould not breathe. Lately has had worsening shortness of breath and palpitations. Notes she had recent admission for ACS and had a stent placed. After that she has been dealing with worsening anemia and had another admission where she was found to have GI bleeding. Was evaluated by GI. Is on dual antiplatelet therapy because of her recent stent. Differential includes symptomatic anemia, ACS, pneumothorax, pneumonia, COPD exacerbation, pleural effusion, GI bleed and referred GI symptoms. CBC shows normal white blood cell count and normal platelets however patient nowhas significant anemia with a hemoglobin of 6.2 (was 7.4 on 02/28/2025 but prior to last month baseline was around 13). Suspect this acute but slow worsening ofher hemoglobin with underlying CAD as was causing her symptoms. Given her recent hospitalization and down a D-dimer to rule out PE. This is normal for age adjustment and low suspicion for PE. Do not think requires a CTA at this time. BMP does not show any significant electrolyte abnormalities however creatinine is mildly uptrending at 1.25 (baseline is 1.1), BUN is also mildly elevated at 26 but is stable compared to the last month. Initial high-sensitivity is 21, delta is pending. Lipase is normal. No significant transaminitis. Chest x-ray viewed by myself as well as radiology does not show any acute process however due to question of there were small effusions present that radiology did not comment on. EKG does not show any acute ischemia. Type and cross for 1 unit is ordered. Patient is also given some IV fluids. I will discuss with GI and hospitalist for admission given acute on chronic anemialikely from a continued GI bleeding in the setting of anticoagulation. Per conversation with Dr. Cotto, he agrees with admission for blood transfusion. He suspects patient would likely benefit from capsule study outpatient. Is not clear if she will need further endoscopy. Patient does become more short of breath with walking to the bathroom. She has very diminished breath sounds at the bases. Will obtain VBG and give DuoNeb as she does have a history of tobacco use. On reevaluation after DuoNeb patient is improvement of her breath sounds howeverpatient feels that she cannot breathe. She is more tachycardic. VBG is more consistent with hyperventilation with a pH of 7.478, pCO2 of 24.3. Will be given 0.5 mg IV Ativan and continue to monitor. I do not appreciate any crackles or signs of flash pulmonary edema on physical exam. She is 94-95% on room air. Repeat evaluation after IV Ativan. Patient feels much more improved. Is breathing more comfortably. Continues to have improved breath sounds after the breathing treatment. Case discussed with Dr. Long for admission. Lab Data Attestation: I reviewed the patient's lab results. Labs: Laboratory Results - last 24 hr 03/03/25 03/03/25 03/03/25 02:35 02:35 02:35 WBC 9.9 RBC 1.91 L Hgb 6.2 L Hct 20.4 L MCV 106.8 H MCH 32.5 H MCHC 30.4 L RDW Std Deviation 70.3 H RDW Coeff of Gerber 18.6 H Plt Count 184 MPV 10.3 Immature Gran % (Auto) 0.500 Neut % (Auto) 69.3 Lymph % (Auto) 22.1 Daggett % (Auto) 5.1 Eos % (Auto) 2.5 Baso % (Auto) 0.5 Absolute Neuts (auto) 6.9 Absolute Lymphs (auto) 2.19 Nucleated RBC % 0 Anisocytosis 1+ PT 13.7 INR 1.0 APTT 25.9 D-Dimer Quant (PE/DVT) 0.58 H* Sodium Cancelled 141 Potassium Cancelled 3.9 Chloride Cancelled Carbon Dioxide Anion Gap BUN Creatinine Estim Creat Clear Calc Est GFR (MDRD) Non-Af BUN/Creatinine Ratio Glucose Calcium Magnesium Total Bilirubin Direct Bilirubin AST ALT Alkaline Phosphatase Troponin T High Sens Troponin T Hi Sens 2 Hr NT pro BNP II Total Protein Albumin Globulin Lipase Blood Type ABO/Rh A1 Subgroup A1 Antigen Typing Rho(D) Tech Interpret Antibody Screen Crossmatch 03/03/25 03/03/25 03/03/25 02:35 02:35 02:35 WBC RBC Hgb Hct MCV MCH MCHC RDW Std Deviation RDW Coeff of Gerber Plt Count MPV Immature Gran % (Auto) Neut % (Auto) Lymph % (Auto) Daggett % (Auto) Eos % (Auto) Baso % (Auto) Absolute Neuts (auto) Absolute Lymphs (auto) Nucleated RBC % Anisocytosis PT INR APTT D-Dimer Quant (PE/DVT) Sodium Potassium Chloride 108 Carbon Dioxide Cancelled 21.3 Anion Gap Cancelled 12 BUN Cancelled Creatinine Estim Creat Clear Calc Est GFR (MDRD) Non-Af BUN/Creatinine Ratio Glucose Calcium Magnesium Total Bilirubin Direct Bilirubin AST ALT Alkaline Phosphatase Troponin T High Sens Troponin T Hi Sens 2 Hr NT pro BNP II Total Protein Albumin Globulin Lipase Blood Type ABO/Rh A1 Subgroup A1 Antigen Typing Rho(D) College Brewer Interpret Antibody Screen Crossmatch 03/03/25 03/03/25 03/03/25 02:35 02:35 02:35 WBC RBC Hgb Hct MCV MCH MCHC RDW Std Deviation RDW Coeff of Gerber Plt Count MPV Immature Gran % (Auto) Neut % (Auto) Lymph % (Auto) Daggett % (Auto) Eos % (Auto) Baso % (Auto) Absolute Neuts (auto) Absolute Lymphs (auto) Nucleated RBC % Anisocytosis PT INR APTT D-Dimer Quant (PE/DVT) Sodium Potassium Chloride Carbon Dioxide Anion Gap BUN 26 H Creatinine Cancelled 1.25 H Estim Creat Clear Calc Cancelled 46.71 L Est GFR (MDRD) Non-Af Cancelled BUN/Creatinine Ratio Glucose Calcium Magnesium Total Bilirubin Direct Bilirubin AST ALT Alkaline Phosphatase Troponin T High Sens Troponin T Hi Sens 2 Hr NT pro BNP II Total Protein Albumin Globulin Lipase Blood Type ABO/Rh A1 Subgroup A1 Antigen Typing Rho(D) College Brewer Interpret Antibody Screen Crossmatch 03/03/25 03/03/25 03/03/25 02:35 02:35 02:35 WBC RBC Hgb Hct MCV MCH MCHC RDW Std Deviation RDW Coeff of Gerber Plt Count MPV Immature Gran % (Auto) Neut % (Auto) Lymph % (Auto) Daggett % (Auto) Eos % (Auto) Baso % (Auto) Absolute Neuts (auto) Absolute Lymphs (auto) Nucleated RBC % Anisocytosis PT INR APTT D-Dimer Quant (PE/DVT) Sodium Potassium Chloride Carbon Dioxide Anion Gap BUN Creatinine Estim Creat Clear Calc Est GFR (MDRD) Non-Af 48 L BUN/Creatinine Ratio Cancelled 21.0 H Glucose Cancelled 114 H Calcium Cancelled Magnesium Total Bilirubin Direct Bilirubin AST ALT Alkaline Phosphatase Troponin T High Sens Troponin T Hi Sens 2 Hr NT pro BNP II Total Protein Albumin Globulin Lipase Blood Type ABO/Rh A1 Subgroup A1 Antigen Typing Rho(D) College Brewer Interpret Antibody Screen Crossmatch 03/03/25 03/03/25 03/03/25 02:35 02:35 05:42 WBC RBC Hgb Hct MCV MCH MCHC RDW Std Deviation RDW Coeff of Gerber Plt Count MPV Immature Gran % (Auto) Neut % (Auto) Lymph % (Auto) Daggett % (Auto) Eos % (Auto) Baso % (Auto) Absolute Neuts (auto) Absolute Lymphs (auto) Nucleated RBC % Anisocytosis PT INR APTT D-Dimer Quant (PE/DVT) Sodium Potassium Chloride Carbon Dioxide Anion Gap BUN Creatinine Estim Creat Clear Calc Est GFR (MDRD) Non-Af BUN/Creatinine Ratio Glucose Calcium 9.0 Magnesium 2.0 Total Bilirubin 0.26 Direct Bilirubin 0.13 AST 21 ALT 35 Alkaline Phosphatase 58 Troponin T High Sens 21 H D Troponin T Hi Sens 2 Hr 21 H NT pro BNP II Cancelled 531 Total Protein 6.0 Albumin 3.6 Globulin 2.4 Lipase 52 Blood Type A NEGATIVE ABO/Rh Cancelled A1 Subgroup Cancelled A1 Antigen Typing Cancelled Rho(D) Tech Interpret Cancelled Antibody Screen NEGATIVE Crossmatch See Detail ABG Data ABG results: ABG 03/03/25 06:13 Specimen Type ART Sample Site R Radial pH 7.48 H Bicarbonate Actual 18.0 L Total CO2 19 Base Excess -6 L O2 Saturation 71 L ABG pCO2 24.3 L ABG pO2 34 L* Alvaro Test Positive O2 Delivery Device Not entered Vent Mode Not entered Crit Call To/Read Back Yes Radiography Chest X-Ray - ED: 1 View, Read by ED Physician, Read by Radiologist and No AcuteDisease Diagnostic Testing: Clinical Impression(s) from Imaging Studies Chest X-Ray 03/03/25 03:05 IMPRESSION: No radiographic evidence of an acute abnormality. Reading Location: [place] [address] Rhythm Strip Rhythm Strip: Sinus Rhythm Rate: 91 Ectopy: None EKG Initial EKG: Attestation: I personally reviewed and interpreted this EKG as follows: Interpretation: Sinus Rhythm Comments: Normal sinus rhythm at a rate of 91 bpm Normal axis Normal intervals Normal ST segments Prior EKG tracings: available for review Prior: Unchanged Discharge Plan Dx/Rx/DC Orders Clinical Impression: Anemia, Palpitations, Weakness, GI bleed, ZAMORANO (dyspnea on exertion) Disposition Disposition: Acute Care [facility] What to do if you have Problems For any increased pain, shortness of breath, bleeding, nausea or vomiting, chestpain, or any unexpected problems, contact your Primary Care Provider. Call [facility] ([phone]) or report to the closest Emergency Room. Call 911 if necessary. 03/03/25722 <Electronically signed by Swati Huff DO> Cosigner Signature (if applicable): CC: Dr. Florin Bailey DO ~ Signed [facility] Work Phone: [phone] History and physical note [facility] Medical Records Department [address] [place] [address] H&P Exam - Hospitalist 03/03/2538 MR#: [id number] Acct: [id number] Name: MILY LONG Rep #:[id number] : 1960 64 From: Clyde Long DO PCP: Dr. Florin Bailey DO Status:ADM SABINO Location: [place] [address] HPI - General General Date of Admission: 03/03/25 Date of Service: 03/03/25 Chief Complaint: shortness of breath. HPI Narrative MILY LONG, is a 64 F who presents with shortness of breath. Symptoms began this AM and awokeher from sleep. She denies Chest/abd pain. Has chronic black stools from iron, but denies any change. No hematochezia/hematemesis. No abnormal bruising. She presented with a Hg of 6.2. She was ordered 1 unit of PRBCs and has subsequently been transfused. She is feeling better at this time. Dr. Cotto, of GI, was contacted and would see the patient in consultation. Patient did get very short of breath going to the bathroom but felt to be patient did receive a dose of lorazepam. Patient was hospitalized from 02/18- EGD showed Grad A erosive esophagitis; colonoscopy showed poor prep, moderate diverticulosis w/o bleeding. [facility] Medical History GERD (gastroesophageal reflux disease) Smoker CPAP (continuous positive airway pressure) dependence Non-ST elevation NV (NSTEMI) Hematuria UTI (urinary tract infection) Hyperlipidemia Atherosclerosis of coronary artery of [place] heart without angina pectoris Myocardial infarct Home Medications ?Medication ?Instructions ?Recorded ?Last Taken ?Type aspirin 81 mg tablet,delayed 81 mg PO DAILY@0800 heart health 10/11/24 02/18/25 Rx release 90 days #90 tabs atorvastatin 40 mg tablet 40 mg PO QHS cholesterol 90 days 10/26/24 02/17/25 Rx #90 tabs lisinopril 2.5 mg tablet 2.5 mg PO DAILY blood pressu re 90 10/26/24 02/04/25 Rx days #90 tabs metoprolol succinate 25 mg 25 mg PO DAILY heart 90 day s #90 10/26/24 02/21/25 Rx tablet,extended release 24 hr tabs (Toprol XL) ticagrelor 90 mg tablet (Brilinta) 90 mg PO BID blood thinner 90 days 10/26/24 02/18/25 Rx #180 tabs albuterol sulfate 90 mcg/actuation 2 puff inhalation Q 4H PRN PRN 02/06/25 Unknown Rx aerosol inhaler (Ventolin HFA) Wheezing ##1 ascorbate calcium (vitamin C) 500 1 g PO DAILY 5 02/05/25 History mg tablet cranberry [id number] 2 tab PO DAILY supplement 02/05/25 History coagulans 250 mg-30 mg-15 mg tablet (Azo Cranberry Plus Probiotic) ondansetron 4 mg disintegrating 4 mg PO Q6H PRN PRN Na usea #15 tabs 02/06/25 02/17/25 Rx tablet nitroglycerin 0.4 mg sublingual 0.4 mg sublingual Q5-1 5M PRN chest 02/07/25 Unknown Rx tablet pain #25 tabs pantoprazole 40 mg tablet,delayed 40 mg PO DAILY #90 t abs 02/22/25 Unknown Rx release (Protonix) polysaccharide iron complex 150 mg 150 mg PO DAILY 90 days #90 caps 02/22/25 Unknown Rx iron capsule (Ferrex) omeprazole 40 mg capsule,delayed 40 mg PO DAILY Unknown History release Allergy/AdvReac Type Severity Reaction Status Date / Time Penicillins Allergy Hives Verified 03/03/25 02:22 Sulfa (Sulfonamide AdvReac Diarrhea Verified 03/03/25 02:22 Antibiotics) Family History Father CAD (coronary artery disease) CABG age 68; CVA (cerebral vascular accident) Myocardial infarction Mother Cancer Cervical, Melanoma, Colon Surgical History Status post cardiac surgery History of coronary artery stent placement History of carpal tunnel surgery of left wrist History of coronary artery stent placement (02/04/25) Social History household members: spouse housing: house Smoking Status: Current every day smoker tobacco type: cigarettes second hand exposure: No ROS ROS Narrative All review of systems were negative except as mentioned above in the history of present illness andthe other review of systems. Vital Signs Vital Signs Vital Signs: 03/03/25 02:20 03/03/25 02:50 03/03/25 02:59 Temperature 36.6 C Temperature Source Oral Pulse Rate 95 Respiratory Rate 18 Respiratory Effort Normal Respiratory Depth Normal Respiratory Pattern Normal Blood Pressure 130/67 H Blood Pressure Mean 88 Blood Pressure Source Blood Pressure Position Blood Pressure Location Pulse Ox 99 Oxygen Delivery Method Room Air Room Air Room Air Oxygen Flow Rate (L/min) 03/03/25 02:59 03/03/25 03:20 03/03/25 04:00 Temperature Temperature Source Pulse Rate 87 103 H Respiratory Rate 27 H 21 H Respiratory Effort Respiratory Depth Respiratory Pattern Blood Pressure 111/50 L 111/61 Blood Pressure Mean 70 77 Blood Pressure Source Blood Pressure Position Blood Pressure Location Pulse Ox 96 97 100 Oxygen Delivery Method Room Air Room Air Room Air Oxygen Flow Rate (L/min) 03/03/25 05:00 03/03/25 05:43 03/03/25 05:58 Temperature 36.5 C L 36.5 C L Temperature Source Temporal Temporal Pulse Rate 105 H 107 H 102 H Respiratory Rate 22 H 25 H 22 H Respiratory Effort Respiratory Depth Respiratory Pattern Blood Pressure 116/49 L 116/55 L 152/66 H Blood Pressure Mean 71 75 94 Blood Pressure Source Monitor Monitor Blood Pressure Position Semi-Fowlers Semi-Fowlers Blood Pressure Location Left Arm Left Arm Pulse Ox 98 96 95 Oxygen Delivery Method Room Air Room Air Room Air Oxygen Flow Rate (L/min) 03/03/25 06:00 03/03/25 06:47 05/11/25 07:00 Temperature 36.2 C L Temperature Source Temporal Pulse Rate 101 H 82 80 Respiratory Rate 24 H 20 H 23 H Respiratory Effort Respiratory Depth Respiratory Pattern Normal Blood Pressure 126/53 H 101/48 L Blood Pressure Mean 77 65 Blood Pressure Source Monitor Blood Pressure Position Semi-Fowlers Blood Pressure Location Left Arm Pulse Ox 96 99 Oxygen Delivery Method Nasal Cannula Room Air Oxygen Flow Rate (L/min) 2 03/03/25 07:24 Temperature 36.1 C L Temperature Source Pulse Rate 87 Respiratory Rate 23 H Respiratory Effort Respiratory Depth Respiratory Pattern Blood Pressure 104/54 L Blood Pressure Mean 70 Blood Pressure Source Blood Pressure Position Blood Pressure Location Pulse Ox 100 Oxygen Delivery Method Oxygen Flow Rate (L/min) Weight Weight: 74.7 kg Body Mass Index (BMI) 25.7 Physical Exam Narrative - Physical Exam General: Alert, Oriented x3, Cooperative HEENT: Atraumatic, PERRLA, EOMI, Normocephalic Oral: Moist Mucosa, No Gingival or Mucosal Lesions/ Ulcerations Neck: Supple, No JVD, Negative Carotid Bruits Lungs: Clear to auscultation, Normal air movement Cardiovascular: Regular rate, Normal S1, Normal S2, No murmurs Abdomen: Bowel Sounds Present, Soft, Non Tender, Non-Distended, No Hepato-splenomegaly Extremities: No clubbing, No cyanosis, No edema Skin: No rashes, No breakdown Musculoskeletal: No Tenderness to Palpation of Joints or Extremities Neurological: Neuro grossly intact Psych/Mental Status: Normal Affect, Appropriate Results Lab / Micro Data Attestation: I reviewed the patient's lab results. 03/03/25 02:35 03/03/25 02:35 Labs: Laboratory Results - last 24 hr 03/03/25 02:35: WBC 9.9, RBC 1.91 L, Hgb 6.2 L, Hct 20.4 L, MCV 106.8 H, MCH 32.5 H, MCHC 30.4 L, RDW Std Deviation 70.3 H, RDW Coeff of Gerber 18.6 H, Plt Count 184, MPV 10.3, Immature Gran % (Auto) 0.500, Neut % (Auto) 69.3, Lymph % (Auto) 22.1, Daggett % (Auto) 5.1, Eos % (Auto) 2.5, Baso % (Auto) 0.5, Absolute Neuts (auto) 6.9, Absolute Lymphs (auto) 2.19, Nucleated RBC % 0, Anisocytosis 1+, PT 13.7, INR 1.0, APTT 25.9, D-Dimer Quant (PE/DVT) 0.58 H*, Sodium Cancelled 03/03/25 02:35: Sodium 141, Potassium Cancelled 03/03/25 02:35: Potassium 3.9, Chloride Cancelled 03/03/25 02:35: Chloride 108, Carbon Dioxide Cancelled 03/03/25 02:35: Carbon Dioxide 21.3, Anion Gap Cancelled 03/03/25 02:35: Anion Gap 12, BUN Cancelled 03/03/25 02:35: BUN 26 H, Creatinine Cancelled 03/03/25 02:35: Creatinine 1.25 H, Estim Creat Clear Calc Cancelled 03/03/25 02:35: Estim Creat Clear Calc 46.71 L, Est GFR (MDRD) Non-Af Cancelled 03/03/25 02:35: Est GFR (MDRD) Non-Af 48 L, BUN/Creatinine Ratio Cancelled 03/03/25 02:35: BUN/Creatinine Ratio 21.0 H, Glucose Cancelled 03/03/25 02:35: Glucose 114 H, Calcium Cancelled 03/03/25 02:35: Calcium 9.0, Magnesium 2.0, Total Bilirubin 0.26, Direct Bilirubin 0.13, AST 21, ALT 35, Alkaline Phosphatase 58, Troponin T High Sens 21H D, NT pro BNP II Cancelled 03/03/25 02:35: NT pro BNP II 531, Total Protein 6.0, Albumin 3.6, Globulin 2.4,Lipase 52, Blood Type A NEGATIVE, ABO/Rh Cancelled, A1 Subgroup Cancelled, A1 Antigen Typing Cancelled, Rho(D) Tech Interpret Cancelled, Antibody Screen NEGATIVE, Crossmatch See Detail 03/03/25 05:42: Troponin T Hi Sens 2 Hr 21 H Micro: Microbiology 03/03/25 03:58 Stool Stool Occult Blood (BHAVESH) - Final Occult Blood Positive ABG Data ABG results: ABG 03/03/25 06:13 Specimen Type ART Sample Site R Radial pH 7.48 H Bicarbonate Actual 18.0 L Total CO2 19 Base Excess -6 L O2 Saturation 71 L ABG pCO2 24.3 L ABG pO2 34 L* Alvaro Test Positive O2 Delivery Device Not entered Vent Mode Not entered Crit Call To/Read Back Yes Rhythm Strip Rhythm Strip: Sinus Rhythm Rate: 91 Ectopy: None EKG Initial EKG: Attestation: I personally reviewed and interpreted this EKG as follows: Prior EKG tracings: available for review EKG Rhythm Intrepretation: Sinus Rhythm Imaging Radiology Impression Chest X-Ray 03/03/25 03:05 IMPRESSION: No radiographic evidence of an acute abnormality. Reading Location: [place] [address] Assessment & Plan Assessment/Plan (1) Anemia: PLAN: Acute, symptomatic. Recurrent. No obvious bleeding but was heme positive in the emergency room. Patient does have noteddiverticulosis on her previous colonoscopy which I suspect would probably be the source of her bleeding complicated by the fact that she is on aspirin and ticagrelor. Patient received a unit of blood here in the emergency room. Will monitor her hemoglobin. Given herrecent PCI, goal hemoglobin to be around 8. Though I do not feel that it is upper we will change her PPI to IV twice daily for now. (2) GI bleed: PLAN: No marlyn bleeding but heme positive. Suspect diverticular. GI on consult. Unless patient starts actively hemorrhaging, I do not feel that CT angiogram would be necessary at this time. PLAN: Plan CAD: Patient had PCI in September 2024. Patient needs to continue dual antiplatelet therapy as well as atorvastatin. Hypertension: Continue with lisinopril metoprolol. VTE prophylaxis with SCDs CODE STATUS: Addressed with the patient. Patient wishes to be full code. Charges/Coding Visit Charges Inpatient E&M: 09740 Init Hosp L3 03/03/25 0749 Cosigner Signature (if applicable): CC: Dr. Clyde Long DO; Dr. Florin Bailey, ~ Signed [facility]05-11-2025 Discharge summary [facility] Medical Records Department [address] [place] [address] Emergency Department Summary 03/03/25 MR#: [id number] Acct: [id number] Name: MILY LONG Rep #:[id number] : 1960 64 From: Swati Reyes PCP: Dr. Florin Bailey, DO Status:REG ER Location: ED HPI History of Present Illness Chief Complaint: Shortness of Breath Informant: patient Narrative Narrative: Patient is a 64-year-old female with history of recent GI bleeding as well as STEMI (now on Brilinta and aspirin) presenting with palpitations and generalizedmalaise as well as shortness of breath. She states she has been feeling good for couple days and this is after her second ER visit in the last 2 days. She notes tonight around 130 she woke up and felt like she could not breathe. She states that she has been feeling short of breath with exertion. She went to drink some water this morning and was nauseous but denies any vomiting. She states she has been feeling lightheaded. She had some mild swelling of her right leg. Denies history of DVT or PE. No she is continue to have dark stoolsbutattributes that to not being on iron. Does folic her heart is racing. Did have a recent Holter monitor and actually brought the monitor ends to return it. Has been having epigastric discomfort and indigestion. No report of any vomiting. No other complaints or concerns at this time. Chart review shows that patient had a colonoscopy on 02/21/2025 which showed a 5 mm polyp at the splenic flexure which was removed using jumbo cold forceps as well as all single large localized angiodysplastic lesion with bleeding in the descending colon. 1 hemostatic clip was placed. On 02/19/2025 patient had an EGD which showed esophagitis with no bleeding and a medium size hiatal hernia. No other acute process. Patient was admitted 02/18 through 02/22 for GI bleeding. She had recently been started on dual antiplatelet therapy because of the stents that was placed secondary to coronary artery disease. Patient went down to 7.8. Did receive iron transfusion. [facility] Medical History GERD (gastroesophageal reflux disease) Smoker CPAP (continuous positive airway pressure) dependence Non-ST elevation NV (NSTEMI) Hematuria UTI (urinary tract infection) Hyperlipidemia Atherosclerosis of coronary artery of [place] heart without angina pectoris Myocardial infarct Home Medications ?Medication ?Instructions ?Recorded ?Last Taken ?Type aspirin 81 mg tablet,delayed 81 mg PO DAILY@0800 heart health 10/11/24 02/18/25 Rx release 90 days #90 tabs atorvastatin 40 mg tablet 40 mg PO QHS cholesterol 90 days 10/26/24 02/17/25 Rx #90 tabs lisinopril 2.5 mg tablet 2.5 mg PO DAILY blood pressu re 90 10/26/24 02/04/25 Rx days #90 tabs metoprolol succinate 25 mg 25 mg PO DAILY heart 90 day s #90 10/26/24 02/21/25 Rx tablet,extended release 24 hr tabs (Toprol XL) ticagrelor 90 mg tablet (Brilinta) 90 mg PO BID blood thinner 90 days 10/26/24 02/18/25 Rx #180 tabs albuterol sulfate 90 mcg/actuation 2 puff inhalation Q 4H PRN PRN 02/06/25 Unknown Rx aerosol inhaler (Ventolin HFA) Wheezing ##1 ascorbate calcium (vitamin C) 500 1 g PO DAILY 5 02/05/25 History mg tablet cranberry [id number] 2 tab PO DAILY supplement 02/05/25 History coagulans 250 mg-30 mg-15 mg tablet (Azo Cranberry Plus Probiotic) ondansetron 4 mg disintegrating 4 mg PO Q6H PRN PRN Na usea #15 tabs 02/06/25 02/17/25 Rx tablet nitroglycerin 0.4 mg sublingual 0.4 mg sublingual Q5-1 5M PRN chest 02/07/25 Unknown Rx tablet pain #25 tabs pantoprazole 40 mg tablet,delayed 40 mg PO DAILY #90 t abs 02/22/25 Unknown Rx release (Protonix) polysaccharide iron complex 150 mg 150 mg PO DAILY 90 days #90 caps 02/22/25 Unknown Rx iron capsule (Ferrex) omeprazole 40 mg capsule,delayed 40 mg PO DAILY Unknown History release Allergy/AdvReac Type Severity Reaction Status Date / Time Penicillins Allergy Hives Verified 03/03/25 02:22 Sulfa (Sulfonamide AdvReac Diarrhea Verified 03/03/25 02:22 Antibiotics) Family History Father CAD (coronary artery disease) CABG age 68; CVA (cerebral vascular accident) Myocardial infarction Mother Cancer Cervical, Melanoma, Colon Surgical History Status post cardiac surgery History of coronary artery stent placement History of carpal tunnel surgery of left wrist History of coronary artery stent placement (02/04/25) Social History household members: spouse housing: house Smoking Status: Current every day smoker tobacco type: cigarettes second hand exposure: No ROS ROS ED Constitutional Constitutional ED: Denies chills or fever(s) Eyes Eyes: Denies change in vision ENT ENT ED: Denies sore throat Cardiovascular Cardiovascular: Reports chest pain and racing heartbeat Respiratory/Chest Respiratory/Chest: Reports dyspnea and dyspnea on exertion; Denies sputum Gastrointestinal Gastrointestinal: Reports melena and nausea; Denies abdominal pain or vomiting Musculoskeletal Musculoskeletal: Denies arthralgias or myalgias Integumentary Denies rash Neurologic Neurologic: Reports weakness Hematologic/Lymphatic Hematologic/Lymphatic: Denies easy bleeding or easy bruising EXAM Physical Exam Const Vital Signs: 03/03/25 02:20 03/03/25 02:50 03/03/25 02:59 Temperature 97.8 F Temperature Source Oral Pulse Rate 95 Respiratory Rate 18 Respiratory Effort Normal Respiratory Depth Normal Respiratory Pattern Normal Blood Pressure 130/67 H Blood Pressure Mean 88 Blood Pressure Source Blood Pressure Position Blood Pressure Location Pulse Ox 99 Oxygen Delivery Method Room Air Room Air Room Air Oxygen Flow Rate (L/min) 03/03/25 02:59 03/03/25 03:20 03/03/25 04:00 Temperature Temperature Source Pulse Rate 87 103 H Respiratory Rate 27 H 21 H Respiratory Effort Respiratory Depth Respiratory Pattern Blood Pressure 111/50 L 111/61 Blood Pressure Mean 70 77 Blood Pressure Source Blood Pressure Position Blood Pressure Location Pulse Ox 96 97 100 Oxygen Delivery Method Room Air Room Air Room Air Oxygen Flow Rate (L/min) 03/03/25 05:00 03/03/25 05:43 03/03/25 05:58 Temperature 97.7 F L 97.7 F L Temperature Source Temporal Temporal Pulse Rate 105 H 107 H 102 H Respiratory Rate 22 H 25 H 22 H Respiratory Effort Respiratory Depth Respiratory Pattern Blood Pressure 116/49 L 116/55 L 152/66 H Blood Pressure Mean 71 75 94 Blood Pressure Source Monitor Monitor Blood Pressure Position Semi-Fowlers Semi-Fowlers Blood Pressure Location Left Arm Left Arm Pulse Ox 98 96 95 Oxygen Delivery Method Room Air Room Air Room Air Oxygen Flow Rate (L/min) 03/03/25 06:00 03/03/25 06:47 03/03/25 07:00 Temperature 97.2 F L Temperature Source Temporal Pulse Rate 101 H 82 80 Respiratory Rate 24 H 20 H 23 H Respiratory Effort Respiratory Depth Respiratory Pattern Normal Blood Pressure 126/53 H 101/48 L Blood Pressure Mean 77 65 Blood Pressure Source Monitor Blood Pressure Position Semi-Fowlers Blood Pressure Location Left Arm Pulse Ox 96 99 Oxygen Delivery Method Nasal Cannula Room Air Oxygen Flow Rate (L/min) 2 Positive well nourished and well developed Constitutional Narrative: Uncomfortable appearing General Appearance ED: well developed and pallor HEENT Reports dry mucous membranes Mouth ED: Yes dry mucous membranes Mouth: dry mucous membranes Eyes EOMs intact bilaterally General Eye ED: Yes pale conjunctiva Neck supple and no JVD Resp normal respiratory effort Resp Narrative: Bibasilar diminished breath sounds present. No crackles appreciated. Cardio regular rate and regular rhythm GI non-tender and non-distended GI Narrative: Chaperoned rectal exam performed. Patient has dark stool but not completely melanotic. Is guaiac positive. Extremity normal to inspection Extremity Narrative: Trace pitting edema of the lower extremities, slightly more pronounced on the right compared to theleft. Compartments are soft. Neuro oriented x3 Sensorium / Orientation: alert Motor Exam: general weakness Psych mental status grossly normal Skin General Skin Exam: pallor; Negative for jaundice Rashes: no rashes MDM MDM MDM Narrative Medical decision making narrative: Patient evaluated for worsening shortness of breath. Woke up at 130 feeling shecould not breathe. Lately has had worsening shortness of breath and palpitations. Notes she had recent admission for ACSand had a stent placed. After that she has been dealing with worsening anemia and had another admission where she was found to have GI bleeding. Was evaluated by GI. Is on dual antiplatelet therapy because of her recent stent. Differential includes symptomatic anemia, ACS, pneumothorax, pneumonia, COPD exacerbation, pleural effusion, GI bleed and referred GI symptoms. CBC shows normal white blood cell count and normal platelets however patient nowhas significant anemia with a hemoglobin of 6.2 (was 7.4 on 02/28/2025 but prior to last month baseline was around 13). Suspect this acute but slow worsening ofher hemoglobin with underlying CAD as was causing her symptoms. Given her recent hospitalization and down a D-dimer to rule out PE. This is normal for age adjustment and low suspicion for PE. Do not think requires a CTA at this time. BMP does not show any significant electrolyte abnormalities however creatinine is mildly uptrending at 1.25 (baseline is 1.1), BUN is also mildly elevated at 26 but is stable compared to the last month. Initial high-sensitivityis 21, delta is pending. Lipase is normal. No significant transaminitis. Chest x-ray viewed by myself as well as radiology does not show any acute process however due to question of there were small effusions present that radiology did not comment on. EKG does not show any acute ischemia. Type and cross for 1 unit is ordered. Patient is also given some IV fluids. I will discuss with GI and hospitalist for admission given acute on chronic anemialikely from a continued GI bleeding in the setting of anticoagulation. Per conversation with Dr. Cotto, he agrees with admission for blood transfusion. He suspects patient would likely benefit from capsule study outpatient. Is not clear if she will need further endoscopy. Patient does become more short of breath with walking to the bathroom. She has very diminished breath sounds at the bases. Will obtain VBG and give DuoNeb as she does have a history of tobacco use. On reevaluation after DuoNeb patient is improvement of her breath sounds howeverpatient feels that she cannot breathe. She is more tachycardic. VBG is more consistent with hyperventilation with a pH of 7.478, pCO2 of 24.3. Will be given 0.5 mg IV Ativan and continue to monitor. I do not appreciate any crackles or signs of flash pulmonary edema on physical exam. She is 94-95% on room air. Repeat evaluation after IV Ativan. Patient feels much more improved. Is breathing more comfortably.Continues to have improved breath sounds after the breathing treatment. Case discussed with Dr. Long for admission. Lab Data Attestation: I reviewed the patient's lab results. Labs: Laboratory Results - last 24 hr 03/03/25 03/03/25 03/03/25 02:35 02:35 02:35 WBC 9.9 RBC 1.91 L Hgb 6.2 L Hct 20.4 L MCV 106.8 H MCH 32.5 H MCHC 30.4 L RDW Std Deviation 70.3 H RDW Coeff of Gerber 18.6 H Plt Count 184 MPV 10.3 Immature Gran % (Auto) 0.500 Neut % (Auto) 69.3 Lymph % (Auto) 22.1 Daggett % (Auto) 5.1 Eos % (Auto) 2.5 Baso % (Auto) 0.5 Absolute Neuts (auto) 6.9 Absolute Lymphs (auto) 2.19 Nucleated RBC % 0 Anisocytosis 1+ PT 13.7 INR 1.0 APTT 25.9 D-Dimer Quant (PE/DVT) 0.58 H* Sodium Cancelled 141 Potassium Cancelled 3.9 Chloride Cancelled Carbon Dioxide Anion Gap BUN Creatinine Estim Creat Clear Calc Est GFR (MDRD) Non-Af BUN/Creatinine Ratio Glucose Calcium Magnesium Total Bilirubin Direct Bilirubin AST ALT Alkaline Phosphatase Troponin T High Sens Troponin T Hi Sens 2 Hr NT pro BNP II Total Protein Albumin Globulin Lipase Blood Type ABO/Rh A1 Subgroup A1 Antigen Typing Rho(D) College [employer]er Interpret Antibody Screen Crossmatch 03/03/25 03/03/25 03/03/25 02:35 02:35 02:35 WBC RBC Hgb Hct MCV MCH MCHC RDW Std Deviation RDW Coeff of Gerber Plt Count MPV Immature Gran % (Auto) Neut % (Auto) Lymph % (Auto) Daggett % (Auto) Eos % (Auto) Baso % (Auto) Absolute Neuts (auto) Absolute Lymphs (auto) Nucleated RBC % Anisocytosis PT INR APTT D-Dimer Quant (PE/DVT) Sodium Potassium Chloride 108 Carbon Dioxide Cancelled 21.3 Anion Gap Cancelled 12 BUN Cancelled Creatinine Estim Creat Clear Calc Est GFR (MDRD) Non-Af BUN/Creatinine Ratio Glucose Calcium Magnesium Total Bilirubin Direct Bilirubin AST ALT Alkaline Phosphatase Troponin T High Sens Troponin T Hi Sens 2 Hr NT pro BNP II Total Protein Albumin Globulin Lipase Blood Type ABO/Rh A1 Subgroup A1 Antigen Typing Rho(D) College Brewer Interpret Antibody Screen Crossmatch 03/03/25 03/03/25 03/03/25 02:35 02:35 02:35 WBC RBC Hgb Hct MCV MCH MCHC RDW Std Deviation RDW Coeff of Gerber Plt Count MPV Immature Gran % (Auto) Neut % (Auto) Lymph % (Auto) Daggett % (Auto) Eos % (Auto) Baso % (Auto) Absolute Neuts (auto) Absolute Lymphs (auto) Nucleated RBC % Anisocytosis PT INR APTT D-Dimer Quant (PE/DVT) Sodium Potassium Chloride Carbon Dioxide Anion Gap BUN 26 H Creatinine Cancelled 1.25 H Estim Creat Clear Calc Cancelled 46.71 L Est GFR (MDRD) Non-Af Cancelled BUN/Creatinine Ratio Glucose Calcium Magnesium Total Bilirubin Direct Bilirubin AST ALT Alkaline Phosphatase Troponin T High Sens Troponin T Hi Sens 2 Hr NT pro BNP II Total Protein Albumin Globulin Lipase Blood Type ABO/Rh A1 Subgroup A1 Antigen Typing Rho(D) [employer] Brewer Interpret Antibody Screen Crossmatch 03/03/25 03/03/25 03/03/25 02:35 02:35 02:35 WBC RBC Hgb Hct MCV MCH MCHC RDW Std Deviation RDW Coeff of Gerber Plt Count MPV Immature Gran % (Auto) Neut % (Auto) Lymph % (Auto) Daggett % (Auto) Eos % (Auto) Baso % (Auto) Absolute Neuts (auto) Absolute Lymphs (auto) Nucleated RBC % Anisocytosis PT INR APTT D-Dimer Quant (PE/DVT) Sodium Potassium Chloride Carbon Dioxide Anion Gap BUN Creatinine Estim Creat Clear Calc Est GFR (MDRD) Non-Af 48 L BUN/Creatinine Ratio Cancelled 21.0 H Glucose Cancelled 114 H Calcium Cancelled Magnesium Total Bilirubin Direct Bilirubin AST ALT Alkaline Phosphatase Troponin T High Sens Troponin T Hi Sens 2 Hr NT pro BNP II Total Protein Albumin Globulin Lipase Blood Type ABO/Rh A1 Subgroup A1 Antigen Typing Rho(D) [employer] Brewer Interpret Antibody Screen Crossmatch 03/03/25 03/03/25 03/03/25 02:35 02:35 05:42 WBC RBC Hgb Hct MCV MCH MCHC RDW Std Deviation RDW Coeff of Gerber Plt Count MPV Immature Gran % (Auto) Neut % (Auto) Lymph % (Auto) Daggett % (Auto) Eos % (Auto) Baso % (Auto) Absolute Neuts (auto) Absolute Lymphs (auto) Nucleated RBC % Anisocytosis PT INR APTT D-Dimer Quant (PE/DVT) Sodium Potassium Chloride Carbon Dioxide Anion Gap BUN Creatinine Estim Creat Clear Calc Est GFR (MDRD) Non-Af BUN/Creatinine Ratio Glucose Calcium 9.0 Magnesium 2.0 Total Bilirubin 0.26 Direct Bilirubin 0.13 AST 21 ALT 35 Alkaline Phosphatase 58 Troponin T High Sens 21 H D Troponin T Hi Sens 2 Hr 21 H NT pro BNP II Cancelled 531 Total Protein 6.0 Albumin 3.6 Globulin 2.4 Lipase 52 Blood Type A NEGATIVE ABO/Rh Cancelled A1 Subgroup Cancelled A1 Antigen Typing Cancelled Rho(D) Tech Interpret Cancelled Antibody Screen NEGATIVE Crossmatch See Detail ABG Data ABG results: ABG 03/03/25 06:13 Specimen Type ART Sample Site R Radial pH 7.48 H Bicarbonate Actual 18.0 L Total CO2 19 Base Excess -6 L O2 Saturation 71 L ABG pCO2 24.3 L ABG pO2 34 L* Alvaro Test Positive O2 Delivery Device Not entered Vent Mode Not entered Crit Call To/Read Back Yes Radiography Chest X-Ray - ED: 1 View, Read by ED Physician, Read by Radiologist and No AcuteDisease Diagnostic Testing: Clinical Impression(s) from Imaging Studies Chest X-Ray 03/03/25 03:05 IMPRESSION: No radiographic evidence of an acute abnormality. Reading Location: [place] [address] Rhythm Strip Rhythm Strip: Sinus Rhythm Rate: 91 Ectopy: None EKG Initial EKG: Attestation: I personally reviewed and interpreted this EKG as follows: Interpretation: Sinus Rhythm Comments: Normal sinus rhythm at a rate of 91 bpm Normal axis Normal intervals Normal ST segments Prior EKG tracings: available for review Prior: Unchanged Discharge Plan Dx/Rx/DC Orders Clinical Impression: Anemia, Palpitations, Weakness, GI bleed, ZAMORANO (dyspnea on exertion) Disposition Disposition: Acute Care Hospital [facility] What to do if you have Problems For any increased pain, shortness of breath, bleeding, nausea or vomiting, chestpain, or any unexpected problems, contact your Primary Care Provider. Call [facility] ([phone]) or report tothe closest Emergency Room. Call 911 if necessary. 03/03/25 61 Cosigner Signature (if applicable): CC: Dr. Florin Bailey, DO ~ Signed [facility]05-11-2025 Radiology Diagnostic study note [facility] Imaging Services [address] [place] [address] Chest 1 View (Portable) MR#: [id number] Acct: [id number] Name: MILY LONG Rep #: [id number] : 1960 F 64 From: Rashad Cunningham MD PCP: Dr. Florin Bailey DO Status: REG ER Study:Chest 1 View (Portable) Date of Exam: 03/03/25 Exam# [id number] Ordering Dr: Shruthi Huff DO PROCEDURE: CHEST 1 VIEW (PORTABLE) 03/03/2025 REASON FOR EXAM: CHEST PAIN TECHNIQUE: Frontal view of the chest. COMPARISON: None. FINDINGS: The lungs are expanded. There is no demonstrated parenchymal abnormality. There is no demonstrated pleural abnormality. Normal heart and pericardium. Normal mediastinum and mahad. Normal visualized pulmonary arteries. Normal visualized aortic arch and descending thoracic aorta. Normal visualized thoracic spine. Normal visualized ribs, clavicles, and shoulders. There is no demonstrated abnormality of the visualized soft tissue structures ofthe upper abdomen. RAD/Chest 1 View (Portable) IMPRESSION: No radiographic evidence of an acute abnormality. Reading Location: [place] [address] CC: Dr. Swati Huff DO; Dr. Florin Bailey DO ~ Vice President Integrated: Signed [facility]05-08-2025 Discharge summary [facility] Medical Records Department [address] [place] [id number] Emergency Department Summary 02/28/25 MR#: [id number] Acct: [id number] Name: MILY LONG Rep #:[id number] : 1960 64 From: Orlando Abdi MD PCP: Dr. Florin Bailey DO Status:REG ER Location: ED HPI History of Present Illness Chief Complaint: Palpitations Informant: patient and spouse/S.O. Narrative Narrative: 64-year-old female states she woke up in the middle of the night short of breathand her heart racing, both at the same time. No chest discomfort. [place] lightheaded but did not lose consciousness. She felt a little sweaty. She states it lasted 15 or 20 minutes and then gradually resolved and now she feels better except for feeling tired and weak. She had a stent placed at the end of last year and then another 1 placed a month ago. She continues to smoke. Denies any recent illness. [facility] Medical History GERD (gastroesophageal reflux disease) Smoker CPAP (continuous positive airway pressure) dependence Non-ST elevation NV (NSTEMI) Hematuria UTI (urinary tract infection) Hyperlipidemia Atherosclerosis of coronary artery of [place] heart without angina pectoris Myocardial infarct Home Medications ?Medication ?Instructions ?Recorded ?Last Taken ?Type aspirin 81 mg tablet,delayed 81 mg PO DAILY@0800 heart health 10/11/24 02/18/25 Rx release 90 days #90 tabs atorvastatin 40 mg tablet 40 mg PO QHS cholesterol 90 days 10/26/24 02/17/25 Rx #90 tabs lisinopril 2.5 mg tablet 2.5 mg PO DAILY blood pressu re 90 10/26/24 02/04/25 Rx days #90 tabs metoprolol succinate 25 mg 25 mg PO DAILY heart 90 day s #90 10/26/24 02/21/25 Rx tablet,extended release 24 hr tabs (Toprol XL) ticagrelor 90 mg tablet (Brilinta) 90 mg PO BID blood thinner 90 days 10/26/24 02/18/25 Rx #180 tabs albuterol sulfate 90 mcg/actuation 2 puff inhalation Q 4H PRN PRN 02/06/25 Unknown Rx aerosol inhaler (Ventolin HFA) Wheezing ##1 ascorbate calcium (vitamin C) 500 1 g PO DAILY 5 02/05/25 History mg tablet cranberry [id number] 2 tab PO DAILY supplement 02/05/25 History coagulans 250 mg-30 mg-15 mg tablet (Azo Cranberry Plus Probiotic) ondansetron 4 mg disintegrating 4 mg PO Q6H PRN PRN Na usea #15 tabs 02/06/25 02/17/25 Rx tablet nitroglycerin 0.4 mg sublingual 0.4 mg sublingual Q5-1 5M PRN chest 02/07/25 Unknown Rx tablet pain #25 tabs pantoprazole 40 mg tablet,delayed 40 mg PO DAILY #90 t abs 02/22/25 Unknown Rx release (Protonix) polysaccharide iron complex 150 mg 150 mg PO DAILY 90 days #90 caps 02/22/25 Unknown Rx iron capsule (Ferrex) Allergy/AdvReac Type Severity Reaction Status Date / Time Penicillins Allergy Hives Verified 02/28/25 02:07 Sulfa (Sulfonamide AdvReac Diarrhea Verified 02/28/25 02:07 Antibiotics) Family History Father CAD (coronary artery disease) CABG age 68; CVA (cerebral vascular accident) Myocardial infarction Mother Cancer Cervical, Melanoma, Colon Surgical History Status post cardiac surgery History of coronary artery stent placement History of carpal tunnel surgery of left wrist History of coronary artery stent placement (02/04/25) Social History household members: spouse housing: house Smoking Status: Current every day smoker tobacco type: cigarettes second hand exposure: No ROS ROS ED Constitutional Constitutional ED: Reports fatigue and sweats; Denies chills or fever(s) Eyes Eyes: Denies change in vision or diplopia ENT ENT ED: Denies rhinorrhea or sore throat Cardiovascular Cardiovascular: Reports lightheadedness and palpitations; Denies chest pain, radiating jaw, neck orarm pain or syncope Respiratory/Chest Respiratory/Chest: Reports dyspnea; Denies cough Gastrointestinal Gastrointestinal: Denies abdominal pain, diarrhea, nausea or vomiting Genitourinary Genitourinary ED: Denies dysuria or hematuria Musculoskeletal Musculoskeletal: Denies back pain or neck pain Integumentary Denies abscess or rash Neurologic Neurologic: Denies headache(s), paresthesias or weakness Psychiatric Psychiatric: Denies anxiety or suicidal thoughts EXAM Physical Exam Const Vital Signs: 02/28/25 02:08 02/28/25 02:08 02/28/25 02:27 Temperature 97.6 F L Temperature Source Oral Pulse Rate 102 H Respiratory Rate 25 H Respiratory Effort Normal Blood Pressure 147/65 H Blood Pressure Mean 92 Pulse Ox 99 97 Oxygen Delivery Method Room Air Room Air 02/28/25 03:07 02/28/25 04:00 02/28/25 05:00 Temperature Temperature Source Pulse Rate 80 92 85 Respiratory Rate 14 16 20 H Respiratory Effort Blood Pressure 116/51 L 117/62 105/54 L Blood Pressure Mean 72 80 71 Pulse Ox 97 98 96 Oxygen Delivery Method Room Air Room Air Room Air Positive well nourished and well developed General Appearance ED: well developed and NAD HEENT Reports moist mucous membranes normocephalic and atraumatic Eyes PERRL and EOMs intact bilaterally Neck full ROM and supple Resp normal respiratory effort and clear to auscultation bilaterally Cardio regular rate, regular rhythm and no murmurs GI non-tender and non-distended Auscultation: normoactive bowel sounds Palpation: soft Back/Spine no CVA tenderness General Back: other FROM Extremity normal to inspection General Extremety ED: Negative for edema, pulses abnormal or tenderness General Extremity: Negative for edema or pulses abnormal Neuro oriented x3, CN's II-XII intact bilaterally and no sensory deficits noted Sensorium / Orientation: awake and alert Motor Exam: strength 5/5 throughout Skin no rashes or lesions noted and no wounds MDM MDM MDM Narrative Medical decision making narrative: On initial evaluation patient is no longer symptomatic, her EKG is normal. Her initial troponin is just barely out of the normal range at 26, the rest of her labs are only remarkable for anemia at 7.4. She is not having any signs of blood loss and I do not think she needs an emergent transfusion but this will need to be watched carefully as I discussed with her. Chest x-ray 1 view on my interpretation is unremarkable/normal. While she was being observed and we werewaiting to draw the second troponin, she had another relatively short period of the same symptoms again while she was on the monitor. There were no telemetry events or ectopy or dysrhythmias or tachycardia. She was in the 80s the whole time and went back and reviewed the telemetry data. Patient was talking to the ultrasound technol telling her that she had the symptoms while she was prepping to do an EKG and while she was on the monitorshe was sinus rhythm in the 80s. Her second troponin came back at 27 for a delta of 1, this is negligible and she is stable for discharge and feeling better with no recurrent symptoms despite walkingto and from the bathroom on her own, and she states she is following up later today for an already-scheduled Holter monitor from cardiology which I advised her to continue to follow-up with. Lab Data Attestation: I reviewed the patient's lab results. Labs: Laboratory Results - last 24 hr 02/28/25 02/28/25 02:15 04:24 WBC 11.1 H RBC 2.29 L Hgb 7.4 L Hct 23.4 L MCV 102.2 H MCH 32.3 H MCHC 31.6 L RDW Std Deviation 64.8 H RDW Coeff of Gerber 18.0 H Plt Count 199 MPV 10.2 Immature Gran % (Auto) 0.700 Neut % (Auto) 60.8 Lymph % (Auto) 28.0 Daggett % (Auto) 6.2 Eos % (Auto) 3.6 Baso % (Auto) 0.7 Absolute Neuts (auto) 6.7 Absolute Lymphs (auto) 3.11 Nucleated RBC % 0 Sodium 140 Potassium 4.9 Chloride 107 Carbon Dioxide 22.6 Anion Gap 11 BUN 30 H Creatinine 1.09 Estim Creat Clear Calc 53.96 Est GFR (MDRD) Non-Af 56 L BUN/Creatinine Ratio 27.2 H Glucose 110 H Calcium 9.2 Troponin T High Sens 26 H D Troponin T Hi Sens 2 Hr 27 H Radiography Diagnostic Testing: Clinical Impression(s) from Imaging Studies Chest X-Ray 02/28/25 02:35 IMPRESSION: No evidence of acute disease. Reading Location: [facility] Rhythm Strip Rhythm Strip: Sinus Rhythm Rate: 90 (During evaluation, after EKG) Ectopy: None EKG Initial EKG: Attestation: I personally reviewed and interpreted this EKG as follows: Interpretation: No Acute Injury Pattern and Sinus Tachycardia Comments: Nml axis & intervals; nml EKG; some artifact in lat precord leads, but no repolarization abnormality Discharge Plan Triage Chief Complaint: Palpitations ED Provider: Orlando Abdi Dx/Rx/DC Orders Clinical Impression: Palpitations Instructions: ED Palpitations Prescriptions: No Action lisinopril 2.5 mg tablet 2.5 mg PO DAILY 90 Days Qty: 90 3RF Patient Comments: pt told yesterday if BP is less than 99, not to take med. pt has not taken since 02/04/25 metoprolol succinate [Toprol XL] 25 mg tablet extended release 24 hr 25 mg PO DAILY 90 Days Qty: 90 3RF Brilinta 90 mg tablet 90 mg PO BID 90 Days Qty: 180 3RF atorvastatin 40 mg tablet 40 mg PO QHS 90 Days Qty: 90 3RF nitroglycerin 0.4 mg tablet, sublingual 0.4 mg sublingual Q5-15M PRN (Reason: chest pain) Qty: 25 3RF Rx Instructions: do not exceed 3 doses per episode aspirin 81 mg Tablet,Delayed Release (Dr/Ec) 81 mg PO DAILY@0800 90 Days Qty: 90 3RF ascorbate calcium (vitamin C) 500 mg tablet 1 g PO DAILY Azo Cranberry Plus Probiotic 250-30-15 mg tablet 2 tab PO DAILY albuterol sulfate [Ventolin HFA] 90 mcg/actuation HFA aerosol inhaler 2 puff inhalation Q4H PRN PRN (Reason: Wheezing) Qty: 1 0RF Rx Instructions: with spacer ondansetron 4 mg tablet,disintegrating 4 mg PO Q6H PRN PRN (Reason: Nausea) Qty: 15 0RF polysaccharide iron complex [Ferrex 150] 150 mg iron Capsule 150 mg PO DAILY 90 Days Qty: 90 0RF pantoprazole [Protonix] 40 mg tablet,delayed release (DR/EC) 40 mg PO DAILY Qty: 90 0RF Primary Care Provider: Florin Bailey Referrals: Deondre Leavitt MD [Med Staff - Active Staff] - Keep Patrice appointment Print Language: Bangladeshi Disposition Disposition: Home, Self Care What to do if you have Problems For any increased pain, shortness of breath, bleeding, nausea or vomiting, chestpain, or any unexpected problems, contact your Primary Care Provider. Call [facility] ([phone]) or report tothe closest Emergency Room. Call 911 if necessary. 02/28/25517 Cosigner Signature (if applicable): CC: Dr. Florin Bailey, ~ Signed [facility]05-08-2025 Radiology Diagnostic study note [facility] Imaging Services [address] [place], [place] [address] Chest 1 View (Portable) MR#: [id number] Acct: [id number] Name: MILY LONG Rep #: [id number] : 1960 F 64 From: Ross Owen MD PCP: Dr. Florin Bailey DO Status: REG ER Study:Chest 1 View (Portable) Date of Exam: 02/28/25 Exam# [id number] Ordering Dr: Maryellen Abdi MD PROCEDURE: CHEST 1 VIEW (PORTABLE) 02/28/2025 REASON FOR EXAM: CHEST PAIN TECHNIQUE: Frontal view of the chest. COMPARISON: 02/06/2025 FINDINGS: The lungs appear clear. The cardiac and mediastinal contours appear within limits. Visualized osseous structures appear within limits. RAD/Chest 1 View (Portable) IMPRESSION: No evidence of acute disease. Reading Location: [id number] CC: Dr. Orlando Abdi MD; Dr. Florin Bailey DO ~ Vice President Integrated: Signed [facility]05-02-2025 [facility]04-16-2025 Radiology Diagnostic study note [facility] Imaging Services [address] [place] [address] [id number] CTA Chest W/WO Contrast MR#: [id number] Acct: [id number] Name: MILY LONG Rep #: [id number] : 1960 F 64 From: Oseas Rodríguez MD PCP: Dr. Florin Bailey DO Status: REG ER Study:CTA Chest W/WO Contrast Date of Exam: 02/06/25 Exam# [id number] Ordering Dr: Maya Gilmore DO PROCEDURE: CTA CHEST W/WO CONTRAST 02/06/2025 REASON FOR EXAM: HYPOXIA PULMONARY EMBOLISM TECHNIQUE: CTA axial imaging of the chest with intravenous contrast. Coronal and Sagittal reconstruction series were provided. 3D, 3D post processing, 3D reconstructions, Maximum intensity projection (MIPs) Volume rendering and Shaded surface rendering was provided. PATIENT PREPARATION: Per protocol CONTRAST: Isovue 370 VOLUME: 87 mL One or more dose reduction techniques were used (e.g., Automated exposure control, adjustment of the mA and/or kV according to patient size, use of iterative reconstruction technique). RADIATION DOSE SUMMARY: CTDlvol: 7.3 mGy DLP: 260.33 mGycm . COMPARISON: Comparison is made with prior chest radiograph done earlier in the day. FINDINGS: Hardware: EKG electrodes. Lymph nodes: Calcified right infrahilar lymph node. Heart: Coronary artery calcifications are noted. Thoracic Aorta: No thoracic aortic aneurysm or dissection. Pulmonary Vessels: No evidence of pulmonary emboli. Lungs and Airways: Advanced emphysematous changes are present. Pleura: No pleural effusion. No pneumothorax. Upper Abdomen: Scattered calcified splenic granulomas. Bones: Degenerative changes of the thoracic spine. CT/CTA Chest W/WO Contrast IMPRESSION: No evidence of pulmonary embolism. Emphysematous changes. Reading Location: [facility]1 CC: Dr. Inderjit Gilmore DO; Dr. Florin Bailey DO ~ Vice President Integrated: Signed [facility]04-16-2025 Radiology Diagnostic study note [facility] Imaging Services [address] [place] [address] Chest 1 View (Portable) MR#: [id number] Acct: [id number] Name: MILY LONG Rep #: [id number] : 1960 F 64 From: Oseas Rodríguez MD PCP: Dr. Florin Bailey DO Status: REG ER Study:Chest 1 View (Portable) Date of Exam: 02/06/25 Exam# [id number] Ordering Dr: Maya Gilmore DO PROCEDURE: CHEST 1 VIEW (PORTABLE) 02/06/2025 REASON FOR EXAM: PALPITATIONS TECHNIQUE: Frontal view of the chest. COMPARISON: Comparison is made with prior study dated February 04, 2025. FINDINGS: Hardware: EKG electrodes are seen. Heart: Cardiac and mediastinal contours are stable. Lungs: Hyperinflation. The lungs are clear. Bones: Degenerative changes are identified within the thoracic spine. Other: Atherosclerotic calcification of the aortic arch. RAD/Chest 1 View (Portable) IMPRESSION: No Acute Findings. Reading Location: [facility]IR[facility]1 CC: Dr. Inderjit Gilmore DO; Dr. Florin Bailey DO ~ Vice President Integrated: Signed [facility]04-15-[address] [facility] Medical Records Department [address] [place] [address] Counseling Note - Pharmacy 02/05/25 1423 MR#: [id number] Acct: [id number] Name: MILY LONG Rep #:[id number] : 1960 64 From: Rohit Hartmann PCP: Dr. Florin Bailey, DO Status:ADM IN Y Location: [address] Med Reconciliation Pharmacy Service has performed discharge medication reconciliation for this patient. The patient's discharge medication list was reviewed for discrepancies and discrepancies were resolved. Medications at Discharge Home Medications aspirin 81 mg tablet,delayed release 81 mg PO DAILY@0800 heart health 90 days #90 tabs 10/11/24 atorvastatin 40 mg tablet 40 mg PO QHS cholesterol 90 days #90 tabs 10/26/24 lisinopril 2.5 mg tablet 2.5 mg PO DAILY blood pressure 90 days #90 tabs 10/26/24 metoprolol succinate 25 mg tablet,extended release 24 hr (Toprol XL) 25 mg PO DAILY heart 90 days #90 tabs 10/26/24 ticagrelor 90 mg tablet (Brilinta) 90 mg PO BID blood thinner 90 days #180 tabs 10/26/24 02/05/25 1423 r> Date _ Rohit Martinez Signature (if applicable): Date CC: ~ Signed [facility]04-15-2025 Consult note Author Rohit Hartmann [facility] Note Date/Time February 05, 2025 5:[address] [facility] Medical Records Department [address] [place] [address] Counseling Note - Pharmacy 02/05/253 MR#: [id number] Acct: [id number] Name: MILY LONG Rep #:[id number] : 1960 64 From: Rohit Hartmann PCP: Dr. Florin Bailey, DO Status:ADM IN Y Location: [place] [address] Pharmacy [place] Med Reconciliation Pharmacy Service has performed discharge medication reconciliation for this patient. The patient's discharge medication list was reviewed for discrepancies and discrepancies were resolved. Medications at Discharge Home Medications aspirin 81 mg tablet,delayed release 81 mg PO DAILY@0800 heart health 90 days #90 tabs 10/11/24 atorvastatin 40 mg tablet 40 mg PO QHS cholesterol 90 days #90 tabs 10/26/24 lisinopril 2.5 mg tablet 2.5 mg PO DAILY blood pressure 90 days #90 tabs 10/26/24 metoprolol succinate 25 mg tablet,extended release 24 hr (Toprol XL) 25 mg PO DAILY heart 90 days #90 tabs 10/26/24 ticagrelor 90 mg tablet (Brilinta) 90 mg PO BID blood thinner 90 days #180 tabs 10/26/24 02/05/25 1423 <Electronically signed by Rohit may> Date _ Rohit Martinez Signature (if applicable): Date CC: ~ Signed [facility] Work Phone: 1(108) 883-564204-15-2025 Discharge summary [facility] Medical Records Department [address] [place] [address] Discharge Summary 02/05/25 1255 MR#: [id number] Acct: [id number] Name: MILY LONG Rep #:[id number] : 1960 64 From: Estrella Hanna MD PCP: Dr. Florin Bailey, DO Status:ADM IN Location: [place] [address] Providers Date of Admission: 02/04/25 Date of Discharge: 02/05/25 Primary Care Physician: Dr. Florin Bailey DO Reason For Visit: nonstemi Diagnosis Discharge Diagnosis (1) Non-ST elevation NV (NSTEMI): Status: Acute Code(s): I21.4 - Non-ST elevation (NSTEMI) myocardial infarction (2) Hematuria: Status: Acute Code(s): R31.9 - Hematuria, unspecified Qualifiers: Hematuria type: unspecified type Qualified Code(s): R31.9 - Hematuria, unspecified (3) Hyperlipidemia: Status: Chronic Code(s): E78.5 - Hyperlipidemia, unspecified Qualifiers: Hyperlipidemia type: mixed hyperlipidemia Qualified Code(s): E78.2 - Mixed hyperlipidemia Plan #nonstemi * Admitted with a complaint of chest pain. Initial troponin was 307. EKG showed some ST depression in the lateral leads. * Cardiology was consulted. Patient does have a history of CAD status post stents back in September 2024. * On heparin drip. * Has been compliant with her aspirin and Brilinta at home. However she does still continue to smoke. On high intensity statin. * For emergent cardiac cath today. Further management will be predicated on the findings of the cardiac cath. * Continue lisinopril and metoprolol. #Nicotine dependence: Counseled to quit. Nicotine patch 14 mg daily #Hyperlipidemia: On statin DVT prophylaxis: Not indicated as patient on heparin drip. CODE STATUS: Full code * Patient counseled extensively about different types of CODE STATUS including full code, DNR CCA and DNR CCA. Patient elects to be full code. * Total [id number] time 16 minutes. Medications at Discharge Home Medications aspirin 81 mg tablet,delayed release 81 mg PO DAILY@0800 heart health 90 days #90 tabs 10/11/24 atorvastatin 40 mg tablet 40 mg PO QHS cholesterol 90 days #90 tabs 10/26/24 lisinopril 2.5 mg tablet 2.5 mg PO DAILY blood pressure 90 days #90 tabs 10/26/24 metoprolol succinate 25 mg tablet,extended release 24 hr (Toprol XL) 25 mg PO DAILY heart 90 days #90 tabs 10/26/24 ticagrelor 90 mg tablet (Brilinta) 90 mg PO BID blood thinner 90 days #180 tabs 10/26/24 Hospital Course Operations None Procedures Cardiac catheterization Summary of Care Provided Minutes Spent on Discharge: 45 Hospital Course: MILY LONG, is a 64 F with a PMH as outlined who presents via the ED on 02/04/2025 with a complaint of chest pain. The chest pain woke her up in the middle of the night the day before admission.It was episodic the entire day before admission and says she woke up on the day of presentation with no chest pain. However, she drank some coffee and the chest pain recurred. She said it was burning, mid chest, with no aggravating or relieving factors. Pain worsened with driving. She did have 2 stents placed in September 2024. She called the EMSto bring her into the ED. She denied any shortness of breath, lightheadedness, dizziness, nausea vomiting or any other symptoms. She does continue to smoke about 1/2 pack daily. Previous symptoms otherwise negative. Vitals in the ED were blood pressure 101/84, pulse rate of 82 and temperature of98 Fahrenheit. Respirate rate was 13. Pulse ox was 98% on room air. CBC showed hemoglobin of 12.3 with WBC of 10.7 and platelets of 223. INR was 1. Chemistry showed sodium of 140 with potassium of 4.1 and bicarb of 21. Creatinine was 1.01. Initial troponin was 307. EKG showed some ST depression in the lateral leads. Cardiology was consulted and she was taken emergently to the cardiac [facility] tohave cardiac cath reevaluated for in-stent stenosis in the setting of non- STEMI. She had cardiac cath which showed coronary artery disease with successful FREDDIE to the mid left circumflex and PTCA alone done to the D1 artery. She was continuedon aspirin and Brilinta as well as high intensity statin and metoprolol. She was counseled stronglyto quit smoking and to be compliant withher medication. His symptoms improved and she felt better. She was discharged home on 02/05/2025. She is follow-up with her primary care doctor and with cardiology within 1 to 2 weeks. Patient seen and examined prior to discharge. She felt better and had no complaints. She had had anuneventful night. Previous symptoms otherwise negative. Labs and vitals reviewed. Home medication reviewed and reconciled. Physical Exam Const alert, oriented x3 and no apparent distress General Appearance: cooperative and comfortable Orientation / Consciousness: awake Exam Limitations: no limitations HEENT normocephalic, head/scalp atraumatic, hearing grossly normal bilaterally, moist oral mucous membranes and oropharynx normal Mouth: oral and palatal mucosa normal Eyes PERRL, EOMs intact bilaterally and conjunctivae normal Neck no lymphadenopathy and supple Resp normal respiratory effort, no retractions, no use of accessory muscles and clearto auscultation bilaterally Cardio regular rate, regular rhythm, S1 normal heart sound, S2 normal heart sound and no murmurs GI normal to inspection, nondistended, normoactive bowel sounds, soft to palpation,non-tender and non-distended Extremity normal to inspection, full ROM and no clubbing, cyanosis or edema Skin no rashes or lesions noted Neuro oriented x3, CN's II-XII intact bilaterally, moves all extremities and no focal motor deficits Sensorium / Orientation: awake and alert Speech: speech normal Motor Exam: strength 5/5 throughout Psych affect normal Weight / BMI Weight Weight: 162 lb Body Mass Index (BMI) 25.3 ABG / Lab / Microbiology Data 02/05/25 06:18 02/05/25 06:18 Laboratory: Laboratory Results - last 24 hr 02/04/25 19:00: APTT 46.4 H 02/05/25 06:18: WBC 10.5, RBC 3.63 L, Hgb 11.4 L, Hct 34.4 L, MCV 94.8, MCH 31.4, MCHC 33.1, RDW Std Deviation 48.9 H, RDW Coeff of Gerber 14.1, Plt Count 205,MPV 10.4, Sodium 139, Potassium 4.3, Chloride 106, Carbon Dioxide 22.1, Anion Gap 10, BUN 18, Creatinine 1.02, Estim Creat Clear Calc 52.76, Est GFR (MDRD) Non-Af 61, BUN/Creatinine Ratio 17.6, Glucose 92, Calcium 9.0, Total Bilirubin 0.45, AST 34 H, ALT 16, Alkaline Phosphatase 68, Total Protein 6.2, Albumin 3.5,Globulin 2.8, Albumin/Globulin Ratio 1.3 D/C Instructions Discharge Diet: Low fat / Low cholesterol Discharge Activity: Return to Normal Activity Weight Bearing Status: Weight bearing as tolerated Call your doctor if you observe: Fever of 101 or Higher, Shortness of breath, Dizziness, Swelling in the ankles, Chest pain and Increased palpitations (irregular heartbeat) DC O2, CPAP, BIPAP Needs Home O2 Discharge instructions: No Meaningful Use Info Meaningful Use Meaningful Use Diagnoses (Choose all that apply): AMI AMI/Post PCI/Angioplasty Aspirin given w/in 24hrs of arrival?: Yes ASA at discharge?: Yes Antiplatelet Therapy at Discharge:: Yes Statins at discharge?: Yes Edvin/ARB at discharge?: Yes Beta Divya at discharge?: Yes Done w/ Acute NV measure.: Yes Documented LVEF (%): 50 Ischemic Stroke Statin Dosing Therapy Reference: STATIN DOSE THERAPY REFERENCE: * Patients > 75 years receive moderate or high dose statin therapy. * Patients 75 years or YOUNGER should receive HIGH intensity statin dose unless contraindicated. You will be required to document reason for non-treatment if statin daily dose does not meet guidelines. HIGH DOSE STATIN THERAPY DAILY Atorvastatin > than or = to 40 mg Rosuvastatin > than or = to 20 mg Amlodipine + Atorvastatin > than or = to 2.5/40 mg Ezetimibe + Simvastatin 10/80 mg Simvastatin 80mg Discharge Plan Admission Admit Date/Time: 02/04/25 13:00 Primary Reason for Your Visit: angina Attending Provider: Estrella Hanna Primary Care Provider: Florin Bailey Instructions Patient Instructions: Discharge Instructions for Angina, ED Heart Disease Risk Factors Discharge Orders/Prescriptions Prescriptions: Continued lisinopril 2.5 mg tablet 2.5 mg PO DAILY 90 Days Qty: 90 3RF metoprolol succinate [Toprol XL] 25 mg tablet extended release 24 hr 25 mg PO DAILY 90 Days Qty: 90 3RF Brilinta 90 mg tablet 90 mg PO BID 90 Days Qty: 180 3RF atorvastatin 40 mg tablet 40 mg PO QHS 90 Days Qty: 90 3RF aspirin 81 mg Tablet,Delayed Release (Dr/Ec) 81 mg PO DAILY@0800 90 Days Qty: 90 3RF Referrals / Follow Up: Florin Bailey DO [Primary Care Provider] - Within 1 Week Disposition Disposition (needs filled in before D/C Order can be placed): Home, Self Care Charges/Coding Visit Charges Inpatient E&M: 30376 Disch Hosp >30min 02/05/25 1602 Cosigner Signature (if applicable): CC: Dr. Estrella Hanna MD; Dr. Florin Bailey DO~ Signed [facility]04-15-2025 Discharge summary Author Estrella Hanna [facility] Note Date/Time February 05, 2025 12: 55pm [facility] Medical Records Department [address] [place] [address] Instructions for Home/Discharge Instructions 02/05/254 MR#: [id number] Acct: [id number] Name: MILY LONG Rep #:[id number] : 1960 64 From: Estrella Hanna MD PCP: Dr. Florin Bailey DO Status:ADM IN Discharge Instructions Diet Discharge Diet: Low fat / Low cholesterol DC O2, CPAP, BIPAP needs Home O2 Discharge instructions: No Dressing / Incision Discharge Activity: Return to Normal Activity Weight Bearing Status: Weight bearing as tolerated Dressing / Incision Call your doctor if you observe: Fever of 101 or Higher, Shortness of breath, Dizziness, Swelling in the ankles, Chest pain and Increased palpitations (irregular heartbeat) Follow Up Care Test Results: Test results from this visit will be discussed in further detail at your follow- up appointment, if applicable. Discharge Plan Admission Admit Date/Time: 02/04/25 13:00 Primary Reason for Your Visit: angina Attending Provider: Estrella Hanna Primary Care Provider: Florin Bailey Instructions Patient Instructions: Discharge Instructions for Angina, ED Heart Disease Risk Factors Discharge Orders/Prescriptions Prescriptions: Continued lisinopril 2.5 mg tablet 2.5 mg PO DAILY 90 Days Qty: 90 3RF metoprolol succinate [Toprol XL] 25 mg tablet extended release 24 hr 25 mg PO DAILY 90 Days Qty: 90 3RF Brilinta 90 mg tablet 90 mg PO BID 90 Days Qty: 180 3RF atorvastatin 40 mg tablet 40 mg PO QHS 90 Days Qty: 90 3RF aspirin 81 mg Tablet,Delayed Release (Dr/Ec) 81 mg PO DAILY@0800 90 Days Qty: 90 3RF Referrals / Follow Up: Florin Bailey DO [Primary Care Provider] - Within 1 Week Disposition Disposition (needs filled in before D/C Order can be placed): Home, Self Care 02/05/251254<Electronically signed by Estrella Hanna MD>Estrella Hanna MD CC: Dr. Florin Bailey DO ~ Signed [facility] Work Phone: 1(160) 949-718604-15-2025 Discharge summary Author Estrella [facility] Note Date/Time February 05, 2025 4:0 2pm [facility] Medical Records Department [address] [place] [address] Discharge Summary 02/05/25 1255 MR#: [id number] Acct: [id number] Name: MILY LONG Rep #:[id number] : 1960 64 From: Estrella Hanna MD PCP: Dr. Florin Bailey, Status:ADM IN [facility] Prov[facility] Date of Admission: 02/04/25 Date of Discharge: 02/05/25 Primary Care Physician: Dr. Florin Bailey DO Reason For Visit: nonstemi Diagnosis Discharge Diagnosis (1) Non-ST elevation NV (NSTEMI): Status: Acute Code(s): I21.4 - Non-ST elevation (NSTEMI) myocardial infarction (2) Hematuria: Status: Acute Code(s): R31.9 - Hematuria, unspecified Qualifiers: Hematuria type: unspecified type Qualified Code(s): R31.9 - Hematuria, unspecified (3) Hyperlipidemia: Status: Chronic Code(s): E78.5 - Hyperlipidemia, unspecified Qualifiers: Hyperlipidemia type: mixed hyperlipidemia Qualified Code(s): E78.2 - Mixed hyperlipidemia Plan #nonstemi * Admitted with a complaint of chest pain. Initial troponin was 307. EKG showed some ST depression in the lateral leads. * Cardiology was consulted. Patient does have a history of CAD status post stents back in September 2024. * On heparin drip. * Has been compliant with her aspirin and Brilinta at home. However she does still continue to smoke. On high intensity statin. * For emergent cardiac cath today. Further management will be predicated on the findings of the cardiac cath. * Continue lisinopril and metoprolol. #Nicotine dependence: Counseled to quit. Nicotine patch 14 mg daily #Hyperlipidemia: On statin DVT prophylaxis: Not indicated as patient on heparin drip. CODE STATUS: Full code * Patient counseled extensively about different types of CODE STATUS including full code, DNR CCA and DNR CCA. Patient elects to be full code. * Total [id number] time 16 minutes. Medications at Discharge Home Medications aspirin 81 mg tablet,delayed release 81 mg PO DAILY@0800 heart health 90 days #90 tabs 10/11/24 atorvastatin 40 mg tablet 40 mg PO QHS cholesterol 90 days #90 tabs 10/26/24 lisinopril 2.5 mg tablet 2.5 mg PO DAILY blood pressure 90 days #90 tabs 10/26/24 metoprolol succinate 25 mg tablet,extended release 24 hr (Toprol XL) 25 mg PO DAILY heart 90 days #90 tabs 10/26/24 ticagrelor 90 mg tablet (Brilinta) 90 mg PO BID blood thinner 90 days #180 tabs 10/26/24 Hospital Course Operations None Procedures Cardiac catheterization Summary of Care Provided Minutes Spent on Discharge: 45 Hospital Course: MILY LONG, is a 64 F with a PMH as outlined who presents via the ED on 02/04/2025 with a complaint of chest pain. The chest pain woke her up in the middle of the night the day before admission. It was episodic the entire day before admission and says she woke up on the day of presentation with no chest pain. However, she drank some coffee and the chest pain recurred. She said it was burning, mid chest, with no aggravating or relieving factors. Pain worsened with driving. She did have 2 stents placed in September 2024. She called the EMSto bring her into the ED. She denied any shortness of breath, lightheadedness, dizziness, nausea vomiting or any other symptoms. She does continue to smoke about 1/2 pack daily. Previous symptoms otherwise negative. Vitals in the ED were blood pressure 101/84, pulse rate of 82 and temperature of98 Fahrenheit. Respirate rate was 13. Pulse ox was 98% on room air. CBC showed hemoglobin of 12.3 with WBC of 10.7 and platelets of 223. INR was 1. Chemistry showed sodium of 140 with potassium of 4.1 and bicarb of 21. Creatinine was 1.01. Initial troponin was 307. EKG showed some ST depression in the lateral leads. Cardiology was consulted and she was taken emergently to the cardiac [facility] tohave cardiac cath reevaluated for in-stent stenosis in the setting of non-STEMI. She had cardiac cath which showed coronary artery disease with successful FREDDIE to the mid left circumflex and PTCA alone done to the D1 artery. She was continued on aspirin and Brilinta as well as high intensity statin and metoprolol. She was counseled strongly to quit smoking and to be compliant withher medication. His symptoms improved and she felt better. She was discharged home on 02/05/2025. She is follow-up with her primary care doctor and with cardiology within 1 to 2 weeks. Patient seen and examined prior to discharge. She felt better and had no complaints. She had had an uneventful night. Previous symptoms otherwise negative. Labs and vitals reviewed. Home medication reviewed and reconciled. Physical Exam Const alert, oriented x3 and no apparent distress General Appearance: cooperative and comfortable Orientation / Consciousness: awake Exam Limitations: no limitations HEENT normocephalic, head/scalp atraumatic, hearing grossly normal bilaterally, moist oral mucous membranes and oropharynx normal Mouth: oral and palatal mucosa normal Eyes PERRL, EOMs intact bilaterally and conjunctivae normal Neck no lymphadenopathy and supple Resp normal respiratory effort, no retractions, no use of accessory muscles and clearto auscultation bilaterally Cardio regular rate, regular rhythm, S1 normal heart sound, S2 normal heart sound and no murmurs GI normal to inspection, nondistended, normoactive bowel sounds, soft to palpation,non-tender and non-distended Extremity normal to inspection, full ROM and no clubbing, cyanosis or edema Skin no rashes or lesions noted Neuro oriented x3, CN's II-XII intact bilaterally, moves all extremities and no focal motor deficits Sensorium / Orientation: awake and alert Speech: speech normal Motor Exam: strength 5/5 throughout Psych affect normal Weight / BMI Weight Weight: 162 lb Body Mass Index (BMI) 25.3 ABG / Lab / Microbiology Data 02/05/25 06:18 02/05/25 06:18 Laboratory: Laboratory Results - last 24 hr 02/04/25 19:00: APTT 46.4 H 02/05/25 06:18: WBC 10.5, RBC 3.63 L, Hgb 11.4 L, Hct 34.4 L, MCV 94.8, MCH 31.4, MCHC 33.1, RDW Std Deviation 48.9 H, RDW Coeff of Gerber 14.1, Plt Count 205,MPV 10.4, Sodium 139, Potassium 4.3, Chloride 106, Carbon Dioxide 22.1, Anion Gap 10, BUN 18, Creatinine 1.02, Estim Creat Clear Calc 52.76, Est GFR (MDRD) Non-Af 61, BUN/Creatinine Ratio 17.6, Glucose 92, Calcium 9.0, Total Bilirubin 0.45, AST 34 H, ALT 16, Alkaline Phosphatase 68, Total Protein 6.2, Albumin 3.5,Globulin 2.8, Albumin/Globulin Ratio 1.3 D/C Instructions Discharge Diet: Low fat / Low cholesterol Discharge Activity: Return to Normal Activity Weight Bearing Status: Weight bearing as tolerated Call your doctor if you observe: Fever of 101 or Higher, Shortness of breath, Dizziness, Swelling in the ankles, Chest pain and Increased palpitations (irregular heartbeat) DC O2, CPAP, BIPAP Needs Home O2 Discharge instructions: No Meaningful Use Info Meaningful Use Meaningful Use Diagnoses (Choose all that apply): AMI AMI/Post PCI/Angioplasty Aspirin given w/in 24hrs of arrival?: Yes ASA at discharge?: Yes Antiplatelet Therapy at Discharge:: Yes Statins at discharge?: Yes Edvin/ARB at discharge?: Yes Beta Divya at discharge?: Yes Done w/ Acute NV measure.: Yes Documented LVEF (%): 50 Ischemic Stroke Statin Dosing Therapy Reference: STATIN DOSE THERAPY REFERENCE: * Patients > 75 years receive moderate or high dose statin therapy. * Patients 75 years or YOUNGER should receive HIGH intensity statin dose unless contraindicated. You will be required to document reason for non-treatment if statin daily dose does not meet guidelines. HIGH DOSE STATIN THERAPY DAILY Atorvastatin > than or = to 40 mg Rosuvastatin > than or = to 20 mg Amlodipine + Atorvastatin > than or = to 2.5/40 mg Ezetimibe + Simvastatin 10/80 mg Simvastatin 80mg Discharge Plan Admission Admit Date/Time: 02/04/25 13:00 Primary Reason for Your Visit: angina Attending Provider: Estrella Hanna Primary Care Provider: Florin Bailey Instructions Patient Instructions: Discharge Instructions for Angina, ED Heart Disease Risk Factors Discharge Orders/Prescriptions Prescriptions: Continued lisinopril 2.5 mg tablet 2.5 mg PO DAILY 90 Days Qty: 90 3RF metoprolol succinate [Toprol XL] 25 mg tablet extended release 24 hr 25 mg PO DAILY 90 Days Qty: 90 3RF Brilinta 90 mg tablet 90 mg PO BID 90 Days Qty: 180 3RF atorvastatin 40 mg tablet 40 mg PO QHS 90 Days Qty: 90 3RF aspirin 81 mg Tablet,Delayed Release (Dr/Ec) 81 mg PO DAILY@0800 90 Days Qty: 90 3RF Referrals / Follow Up: Florin Bailey DO [Primary Care Provider] - Within 1 Week Disposition Disposition (needs filled in before D/C Order can be placed): Home, Self Care Charges/Coding Visit Charges Inpatient E&M: 07445 Disch Hosp >30min 02/05/25 1602 <Electronically signed by Estrella Hanna MD> Cosigner Signature (if applicable): CC: Dr. Estrella Hanna MD; Dr. Florin Bailey DO~ Signed [facility] Work Phone: 1(459) 544-676504-15-2025 Discharge summary [facility] Medical Records Department [address] [place] [id number] Instructions for Home/Discharge Instructions 02/05/25 1254 MR#: [id number] Acct: [id number] Name: MILY LONG Rep #:[id number] : 1960 64 From: Estrella Hanna MD PCP: Dr. Florin Bailey DO Status:ADM IN Discharge Instructions Diet Discharge Diet: Low fat / Low cholesterol DC O2, CPAP, BIPAP needs Home O2 Discharge instructions: No Dressing / Incision Discharge Activity: Return to Normal Activity Weight Bearing Status: Weight bearing as tolerated Dressing / Incision Call your doctor if you observe: Fever of 101 or Higher, Shortness of breath, Dizziness, Swelling in the ankles, Chest pain and Increased palpitations (irregular heartbeat) Follow Up Care Test Results: Test results from this visit will be discussed in further detail at your follow- up appointment, if applicable. Discharge Plan Admission Admit Date/Time: 02/04/25 13:00 Primary Reason for Your Visit: angina Attending Provider: Estrella Hanna Primary Care Provider: Florin Bailey Instructions Patient Instructions: Discharge Instructions for Angina, ED Heart Disease Risk Factors Discharge Orders/Prescriptions Prescriptions: Continued lisinopril 2.5 mg tablet 2.5 mg PO DAILY 90 Days Qty: 90 3RF metoprolol succinate [Toprol XL] 25 mg tablet extended release 24 hr 25 mg PO DAILY 90 Days Qty: 90 3RF Brilinta 90 mg tablet 90 mg PO BID 90 Days Qty: 180 3RF atorvastatin 40 mg tablet 40 mg PO QHS 90 Days Qty: 90 3RF aspirin 81 mg Tablet,Delayed Release (Dr/Ec) 81 mg PO DAILY@0800 90 Days Qty: 90 3RF Referrals / Follow Up: Florin Bailey DO [Primary Care Provider] - Within 1 Week Disposition Disposition (needs filled in before D/C Order can be placed): Home, Self Care 02/05/25 1255Estrella Hanna MD CC: Dr. Florin Bailey DO ~ Signed [facility]04-15-2025 [facility]04-15-[address] [facility] Cardiac Rehab [address] [place] [address] CR: Phase I Education Summary MR#: [id number] Acct: [id number] Name: MILY LONG Rep #:[id number] : 1960 64 From: Adan padilla MD PCP: Dr. Florin Bailey DO DOS: 02/04 General Education Discussed with Patient CAD and cardiac anatomy and function:: Patient communicates acknowledgment and Family communicates acknowledgment Explanation of diagnoses and procedures:: Patient communicates acknowledgment and Family communicates acknowledgment Sign/Symptoms of NV:: Patient communicates acknowledgment and Family communicates acknowledgment Antiplatelet therapy: Patient communicates acknowledgment (BRILINTA ) and Familycommunicates acknowledgment Proper use of NTG-SL: Patient communicates acknowledgment Emergency procedures and activation of EMS: Patient communicates acknowledgment and Family communicates acknowledgment Compliance of all prescribed medications: Patient communicates acknowledgment and Family communicates acknowledgment Smoking Risk Factors Patient Nicotine/Smoking Risk Factors Are:: Cigarettes Recommendations Recommendations Include:: Smoking cessation strategies/Smoking packet, Second- hand smoke recommendation and Participation in a smoking cessation program Response Code Nicotine/Smoking Response Code:: Patient communicates acknowledgment and Family communicates acknowledgment Comments:: SMOKER 30 PLUS YEARS Dyslipidemia Risk Factors Patient Dyslipidemia Risk Factors Are:: Total Cholesterol, Triglycerides, HDL and LDL Recommendations Recommendations Include:: Lipid profile not available and Therapeutic Lifestyle Change dietary guidelines Response Code Dyslipidemia Response Code:: Patient communicates acknowledgment and Family communicates acknowledgment Overweight/Obesity Risk Factors Patient Overweight/Obesity Risk Factors Are:: BMI Normal [24-29 & > 65 years old] (25.4) Recommendations Recommendations Include:: Weight loss of 5-10% and Exercise 5-7 times/week Response Code Overweight/Obesity:: Patient communicates acknowledgment and Family communicatesacknowledgment Hypertension Recommendations Recommendations Include:: Maintain BP <130/85 and Decrease/maintain normal body weight Response Code Hypertension:: Patient communicates acknowledgment and Family communicates acknowledgment Heart Disease Risk Factors Patient Heart Disease Risk Factors Are:: Family history of heart disease < 65 years old and Previous cardiac event Recommendations Recommendations Include:: Educated family members of their risk and Educated family members of importance of prevention of heart disease Response Code Heart Disease Response Code:: Patient communicates acknowledgment and Family communicates acknowledgment Diabetes Risk Factors Patient Diabetes Risk Factors Are:: No documented hx of diabetes Recommendations Recommendations Include:: Decrease/maintain body weight Metabolic Syndrome Recommendations Recommendations Include:: Reinforce compliance to risk factor modifications Response Code Metabolic Syndrome Response Code:: Patient communicates acknowledgment and Family communicates acknowledgment Sedentary Recommendations Recommendations Include:: Aerobic exercise 5-7 times/week for 20-30 minutes continuously and Benefits of regular exercise Response Code Sedentary Response Code:: Patient communicates acknowledgment and Family communicates acknowledgment Stress Risk Factors Patient Stress Risk Factors Are:: Patient denies stress as a risk factor 02/05/25 1224 Date Adan Galindo MD Outcome assessment reviewed. Exercise plan approved as documented. Treatment plan and goals support patient needs/abilities. Continue with current plan. I certify the patient demonstrates improvement and remains willing and capable of participation. the patient continues to benefit from cardiac rehab services/training. The patient may continue at current intensity, endurance andmodality and progress per protocol. Michelle Signature: Date CC: ~ Signed [facility] Work Phone: [phone]) 632-717004-15-2025 Progress note Author Deondre Leavitt [facility] Note Date/Time February 05, 2025 7:4 4am [facility] Medical Records Department [address] [place] [address] Progress Note - Cardiology 02/05/2538 MR#: [id number] Acct: [id number] Name: MILY LONG Rep #:[id number] : 1960 64 From: Deondre Leavitt MD PCP: Dr. Florin Bailey, DO Status:ADM IN Location: [place] [address] Subjective Subjective Patient reports she is doing very well this morning. She denies any recurrence of the symptoms that led to her admission which was a nocturnal onset of shortness of breath and some discomfort in her chest. The patient tolerated the stenting of her circumflex and POBA of her diagonal without incident. She did remain on heparin for a period of time. Patient denies any issues with her groin or right wrist. Objective Data Vital Signs: Vital Signs Temp Pulse Resp BP Pulse Ox O2 Del Method 98.0 F 74 18 96/50 L 95 Room Air 02/05/25 03:07 02/05/25 03:07 02/05/25 03:07 02/05/25 03:07 02/05/25 03:07 02/05/25 03:07 Oxygen Delivery Method Room Air Weight: 162 lb Body Mass Index (BMI) 25.3 Intake & Output: Intake and Output for Last 24 Hours 02/03/25 02/04/25 02/05/25 23:59 23:59 23:59 Intake Total 416.3 / 416.3 Output Total 850 / 850 300 / 300 Balance -433.7 / -433.7 -300 / -300 Lab / Micro Data Attestation: I reviewed the patient's lab results. 02/05/25 06:18 02/04/25 11:08 Labs: Laboratory Results - last 24 hr 02/04/25 11:08: WBC 10.7, RBC 3.87 L, Hgb 12.3, Hct 37.0, MCV 95.6, MCH 31.8, MCHC 33.2, RDW Std Deviation 49.9 H, RDW Coeff of Gerber 14.2, Plt Count 223, MPV 9.9, Immature Gran % (Auto) 0.500, Neut % (Auto) 77.1 H, Lymph % (Auto) 15.1 L, Daggett % (Auto) 4.9, Eos % (Auto) 1.5, Baso % (Auto) 0.9, Absolute Neuts (auto) 8.2 H, Absolute Lymphs (auto) 1.61, Nucleated RBC % 0, Sodium 140, Potassium 4.1, Chloride 107, Carbon Dioxide 21.0, Anion Gap 12, BUN 19, Creatinine 1.01, Estim Creat Clear Calc 53.28, Est GFR (MDRD) Non-Af 61, BUN/Creatinine Ratio 18.6, Glucose 105 H, Calcium 9.2, Troponin T High Sens 307 H* 02/04/25 12:57: PT 12.9, INR 1.0, APTT 26.4 02/04/25 13:12: Troponin T Hi Sens 2 Hr 346 H* 02/04/25 19:00: APTT 46.4 H 02/05/25 06:18: WBC 10.5, RBC 3.63 L, Hgb 11.4 L, Hct 34.4 L, MCV 94.8, MCH 31.4, MCHC 33.1, RDW Std Deviation 48.9 H, RDW Coeff of Gerber 14.1, Plt Count 205,MPV 10.4 Rhythm Strip Rhythm Strip: Sinus Rhythm Rate: 75 Ectopy: PVC(s) Cardiology Labs/Tests 02/04/25 11:08: WBC 10.7, RBC 3.87 L, Hgb 12.3, Hct 37.0, MCV 95.6, MCH 31.8, MCHC 33.2, Plt Count 223, MPV 9.9, Immature Gran % (Auto) 0.500, Neut % (Auto) 77.1 H, Lymph % (Auto) 15.1 L, Daggett % (Auto) 4.9, Eos % (Auto) 1.5, Baso % (Auto) 0.9, Absolute Neuts (auto) 8.2 H, Nucleated RBC % 0, Sodium 140, Potassium 4.1, Chloride 107, Carbon Dioxide 21.0, Anion Gap 12, BUN 19, Creatinine 1.01, Est GFR (MDRD) Non-Af 61, BUN/Creatinine Ratio 18.6, Glucose 105 H, Calcium 9.2 02/04/25 12:57: PT 12.9, INR 1.0, APTT 26.4 02/04/25 19:00: APTT 46.4 H 02/05/25 06:18: WBC 10.5, RBC 3.63 L, Hgb 11.4 L, Hct 34.4 L, MCV 94.8, MCH 31.4, MCHC 33.1, Plt Count 205, MPV 10.4 Rhythm: EKG: ECHO: Stress Test: Cardiac Cath: PCI: CT Surgery: Holter monitor: EPS: PPM: CXR: Chest CT Scan: Radiography Diagnostic Testing: Radiology Impression Chest X-Ray 02/04/25 11:10 IMPRESSION: No acute cardio pulmonary process is identified radiographically. Arteriosclerotic vascular disease of the aorta is noted. A levoscoliosis of the thoracic spine is seen. Reading Location: [facility] Physical Exam Const alert and oriented x3 HEENT normocephalic Neck no JVD Chest inspection of chest normal Resp normal respiratory effort and clear to auscultation bilaterally Cardio regular rate, regular rhythm, S1 normal heart sound, S2 normal heart sound, no murmurs, no rub and no gallops Peripheral Pulses: radial pulses present right 1+ and femoral pulses present right (No bruit) 2+ Extremity no pedal edema Skin General Skin Exam: ecchymosis Neuro Neuro Narrative: Alert and oriented x 3 Psych mental status grossly normal Assessment & Plan Assessment/Plan (1) Non-ST elevation NV (NSTEMI): PLAN: Patient underwent urgent stenting of her circumflex yesterday. She also had plain old balloon angioplasty of the ostium of the small first diagonal branch which was jailed by the previous LAD stent which was widely patent. The patient also has mild to moderate disease in the ostium of the right coronary artery which will be treated medically. The patient should be continued on aspirin and ticagrelor uninterrupted for 1 year. After 6 months we may be able to interrupt the ticagrelor to allow for surgical intervention if indicated. But this will need to be discussed in detail with the urologist following up and treating her hematuria. (2) Hematuria: QUALIFIERS: Hematuria type: unspecified type Qualified Code(s): R31.9 - Hematuria, unspecified PLAN: The patient is to be scheduled for a bladder biopsy this week. However, this will need to be rescheduled for a later date given her current cardiovascular situation. (3) Hyperlipidemia: QUALIFIERS: Hyperlipidemia type: mixed hyperlipidemia Qualified Code(s): E78.2 - Mixed hyperlipidemia PLAN: Patient's lipids are adequately controlled she should continue her currentatorvastatin. PLAN: Plan 1. Continue current home medical therapy. 2. Will need to defer bladder biopsy until seen in the cardiovascular office inthe next 7 to 10 days. 3. Will then need to discussed options with urology on the most effective and efficient way of managing her urologic evaluation. 4. Patient will need to continue aspirin and Brilinta for 1 year. 5. From a cardiovascular standpoint the patient can be discharged to home. Charges/Coding Visit Charges Inpatient E&M: 01665 Subs Hosp L3 02/05/25 0744 <Electronically signed by Deondre Leavitt MD> Cosigner Signature (if applicable): CC: ~ Signed [facility] Work Phone: [phone]) 251-535404-15-2025 Progress note [facility] Medical Records Department [address] [place] [address] Progress Note - Cardiology 02/05/25 0738 MR#: [id number] Acct: [id number] Name: MILY LNOG Rep #:[id number] : 1960 64 From: Deondre Leavitt MD PCP: Dr. Florin Bailey, DO Status:ADM IN Location: [place] [address] Subjective Subjective Patient reports she is doing very well this morning. She denies any recurrence of the symptoms thatled to her admission which was a nocturnal onset of shortness of breath and some discomfort in her chest. The patient tolerated the stenting of her circumflex and POBA of her diagonal without incident. Shedid remain on heparin for a period of time. Patient denies any issues with her groin or right wrist. Objective Data Vital Signs: Vital Signs Temp Pulse Resp BP Pulse Ox O2 Del Method 98.0 F 74 18 96/50 L 95 Room Air 02/05/25 03:07 02/05/25 03:07 02/05/25 03:07 02/05/25 03:07 02/05/25 03:07 02/05/25 03:07 Oxygen Delivery Method Room Air Weight: 162 lb Body Mass Index (BMI) 25.3 Intake & Output: Intake and Output for Last 24 Hours 02/03/25 02/04/25 02/05/25 23:59 23:59 23:59 Intake Total 416.3 / 416.3 Output Total 850 / 850 300 / 300 Balance -433.7 / -433.7 -300 / -300 Lab / Micro Data Attestation: I reviewed the patient's lab results. 02/05/25 06:18 02/04/25 11:08 Labs: Laboratory Results - last 24 hr 02/04/25 11:08: WBC 10.7, RBC 3.87 L, Hgb 12.3, Hct 37.0, MCV 95.6, MCH 31.8, MCHC 33.2, RDW Std Deviation 49.9 H, RDW Coeff of Gerber 14.2, Plt Count 223, MPV 9.9, Immature Gran % (Auto) 0.500, Neut % (Auto) 77.1 H, Lymph % (Auto) 15.1 L, Daggett % (Auto) 4.9, Eos % (Auto) 1.5, Baso % (Auto) 0.9, Absolute Neuts (auto) 8.2 H, Absolute Lymphs (auto) 1.61, Nucleated RBC % 0, Sodium 140, Potassium 4.1, Chloride 107, Carbon Dioxide 21.0, Anion Gap 12, BUN 19, Creatinine 1.01, Estim Creat Clear Calc 53.28, Est GFR (MDRD) Non-Af 61, BUN/Creatinine Ratio 18.6, Glucose 105 H, Calcium 9.2, Troponin T High Sens 307 H* 02/04/25 12:57: PT 12.9, INR 1.0, APTT 26.4 02/04/25 13:12: Troponin T Hi Sens 2 Hr 346 H* 02/04/25 19:00: APTT 46.4 H 02/05/25 06:18: WBC 10.5, RBC 3.63 L, Hgb 11.4 L, Hct 34.4 L, MCV 94.8, MCH 31.4, MCHC 33.1, RDW Std Deviation 48.9 H, RDW Coeff of Gerber 14.1, Plt Count 205,MPV 10.4 Rhythm Strip Rhythm Strip: Sinus Rhythm Rate: 75 Ectopy: PVC(s) Cardiology Labs/Tests 02/04/25 11:08: WBC 10.7, RBC 3.87 L, Hgb 12.3, Hct 37.0, MCV 95.6, MCH 31.8, MCHC 33.2, Plt Count 223, MPV 9.9, Immature Gran % (Auto) 0.500, Neut % (Auto) 77.1 H, Lymph % (Auto) 15.1 L, Daggett % (Auto) 4.9, Eos % (Auto) 1.5, Baso % (Auto) 0.9, Absolute Neuts (auto) 8.2 H, Nucleated RBC % 0, Sodium 140, Potassium 4.1, Chloride 107, Carbon Dioxide 21.0, Anion Gap 12, BUN 19, Creatinine 1.01, Est GFR (MDRD) Non-Af 61, BUN/Creatinine Ratio 18.6, Glucose 105 H, Calcium 9.2 02/04/25 12:57: PT 12.9, INR 1.0, APTT 26.4 02/04/25 19:00: APTT 46.4 H 02/05/25 06:18: WBC 10.5, RBC 3.63 L, Hgb 11.4 L, Hct 34.4 L, MCV 94.8, MCH 31.4, MCHC 33.1, Plt Count 205, MPV 10.4 Rhythm: EKG: ECHO: Stress Test: Cardiac Cath: PCI: CT Surgery: Holter monitor: EPS: PPM: CXR: Chest CT Scan: Radiography Diagnostic Testing: Radiology Impression Chest X-Ray 02/04/25 11:10 IMPRESSION: No acute cardio pulmonary process is identified radiographically. Arteriosclerotic vascular disease of the aorta is noted. A levoscoliosis of the thoracic spine is seen. Reading Location: [facility] Physical Exam Const alert and oriented x3 HEENT normocephalic Neck no JVD Chest inspection of chest normal Resp normal respiratory effort and clear to auscultation bilaterally Cardio regular rate, regular rhythm, S1 normal heart sound, S2 normal heart sound, no murmurs, no rub and no gallops Peripheral Pulses: radial pulses present right 1+ and femoral pulses present right (No bruit) 2+ Extremity no pedal edema Skin General Skin Exam: ecchymosis Neuro Neuro Narrative: Alert and oriented x 3 Psych mental status grossly normal Assessment & Plan Assessment/Plan (1) Non-ST elevation NV (NSTEMI): PLAN: Patient underwent urgent stenting of her circumflex yesterday. She also had plain old balloonangioplasty of the ostium of the small first diagonal branch which was jailed by the previous LAD stent which was widely patent. The patient also has mild to moderate disease in the ostium of the right coronary artery which will be treated medically. The patient should be continued on aspirin and ticagrelor uninterrupted for 1 year. After 6 months we may be able to interrupt the ticagrelor to allow for surgical intervention if indicated. But thiswill need to be discussed in detail with the urologist following up and treating her hematuria. (2) Hematuria: QUALIFIERS: Hematuria type: unspecified type Qualified Code(s): R31.9 - Hematuria, unspecified PLAN: The patient is to be scheduled for a bladder biopsy this week. However, this will need to be rescheduled for a later date given her current cardiovascular situation. (3) Hyperlipidemia: QUALIFIERS: Hyperlipidemia type: mixed hyperlipidemia Qualified Code(s): E78.2 - Mixed hyperlipidemia PLAN: Patient's lipids are adequately controlled she should continue her currentatorvastatin. PLAN: Plan 1. Continue current home medical therapy. 2. Will need to defer bladder biopsy until seen in the cardiovascular office inthe next 7 to 10 days. 3. Will then need to discussed options with urology on the most effective and efficient way of managing her urologic evaluation. 4. Patient will need to continue aspirin and Brilinta for 1 year. 5. From a cardiovascular standpoint the patient can be discharged to home. Charges/Coding Visit Charges Inpatient E&M: 41352 [facility] Hosp 02/05/25 0744 Cosigner Signature (if applicable): CC: ~ Signed [facility]04-14-2025 History and physical note Author Estrella Hanna [facility] Note Date/Time February 04, 2025 4:0 4pm [facility] Medical Records Department [address] [place] [address] H&P Exam - Hospitalist 02/04/25 1258 MR#: [id number] Acct: [id number] Name: ETHANMILY ADAMS Rep #:[id number] : 1960 64 From: Estrella Hanna MD PCP: Dr. Florin Bailey, DO Status:ADM IN Location: [facility] [id number] HPI - General General Date of Admission: 02/04/25 Date of Service: 02/04/25 Chief Complaint: chest pain HPI Narrative MILY LONG, is a 64 F with a PMH as outlined who presents via the ED on 02/04/2025 with a complaint of chest pain. The chest pain woke her up in the middle of the night the day before admission. It was episodic the entire day before admission and says she woke up on the day of presentation with no chest pain. However, she drank some coffee and the chest pain recurred. She said it was burning, mid chest, with no aggravating or relieving factors. Pain worsened with driving. She did have 2 stents placed in September 2024. She called the EMSto bring her into the ED. She denied any shortness of breath, lightheadedness, dizziness, nausea vomiting or any other symptoms. She does continue to smoke about 1/2 pack daily. Previous symptoms otherwise negative. Vitals in the ED were blood pressure 101/84, pulse rate of 82 and temperature of98 Fahrenheit. Respirate rate was 13. Pulse ox was 98% on room air. CBC showed hemoglobin of 12.3 with WBC of 10.7 and platelets of 223. INR was 1. Chemistry showed sodium of 140 with potassium of 4.1 and bicarb of 21. Creatinine was 1.01. Initial troponin was 307. EKG showed some ST depression in the lateral leads. Cardiology was consulted and she is to be taken emergently to the cardiac [facility] to have cardiac cath reevaluated for in-stent stenosis in the setting of non-STEMI. [facility] Medical History UTI (urinary tract infection) Atherosclerosis of coronary artery of [place] heart without angina pectoris Myocardial infarct Home Medications ?Medication ?Instructions ?Recorded ?Last Taken ?Type aspirin 81 mg tablet,delayed 81 mg PO DAILY@0800 90 da ys #90 10/11/24 Unknown Rx release tabs atorvastatin 40 mg tablet 40 mg PO QHS 90 days #90 tab s 10/26/24 Unknown Rx lisinopril 2.5 mg tablet 2.5 mg PO DAILY 90 days #90 tabs 10/26/24 Unknown Rx metoprolol succinate 25 mg 25 mg PO DAILY 90 days #90 tabs 10/26/24 Unknown Rx tablet,extended release 24 hr (Toprol XL) ticagrelor 90 mg tablet (Brilinta) 90 mg PO BID 90 day s #180 tabs 10/26/24 Unknown Rx Allergy/AdvReac Type Severity Reaction Status Date / Time Penicillins Allergy Hives Verified 02/04/25 10:29 Sulfa (Sulfonamide AdvReac Diarrhea Verified 02/04/25 10:29 Antibiotics) Family History Father CAD (coronary artery disease) CABG age 68; CVA (cerebral vascular accident) Myocardial infarction Mother Cancer Cervical, Melanoma, Colon Surgical History History of carpal tunnel surgery of left wrist History of coronary artery stent placement (10/09/24) Social History household members: spouse housing: house Smoking Status: Current every day smoker tobacco type: cigarettes second hand exposure: No ROS Review of Systems ROS Unobtainable: Denies due to encephalopathy Constitutional Constitutional: Denies anorexia, chills, fatigue, fever(s), malaise or weakness Eyes Eyes: Denies change in vision ENT HEENT: Denies dysphagia, headache(s) or sore throat Cardiovascular Cardiovascular: Reports chest pain; Denies dyspnea on exertion, edema, lightheadedness, orthopnea, palpitations, paroxysmal nocturnal dyspnea, rapid heart rate or syncope Respiratory/Chest Respiratory/Chest: Denies cough, dyspnea, shortness of breath at rest or shortness of breath with exertion Gastrointestinal Gastrointestinal: Denies abdominal pain, constipation, diarrhea, nausea or vomiting Genitourinary Genitourinary: Denies burning urination or dysuria Musculoskeletal Musculoskeletal: Denies back pain Neurologic Neurologic: Denies confusion, dizziness, focal weakness, headache(s), numbness or paresthesias Psychiatric Psychiatric: Denies anxiety or depression Endocrine Endocrinology: Denies cold intolerance Vital Signs Vital Signs Vital Signs: 02/04/25 10:27 02/04/25 11:37 02/04/25 11:37 Temperature 97.6 F L Temperature Source Oral Pulse Rate 84 74 Respiratory Rate 16 18 Respiratory Effort Blood Pressure 124/70 H 104/69 Blood Pressure Mean 88 80 Pulse Ox 98 100 98 Oxygen Delivery Method Room Air Room Air 02/04/25 11:37 02/04/25 12:00 Temperature Temperature Source Pulse Rate 77 Respiratory Rate 13 Respiratory Effort Normal Non-Labored Blood Pressure 95/63 Blood Pressure Mean 73 Pulse Ox 98 Oxygen Delivery Method Weight Weight: 162 lb 4.163 oz Body Mass Index (BMI) 25.4 Physical Exam Const alert, oriented x3 and no apparent distress General Appearance: cooperative HEENT normocephalic, head/scalp atraumatic, hearing grossly normal bilaterally, moist oral mucous membranes and oropharynx normal Mouth: oral and palatal mucosa normal Eyes PERRL, EOMs intact bilaterally and conjunctivae normal Neck no lymphadenopathy and supple Resp normal respiratory effort, no retractions, no use of accessory muscles and clearto auscultation bilaterally Cardio regular rate, regular rhythm, S1 normal heart sound, S2 normal heart sound and no murmurs GI normal to inspection, nondistended, normoactive bowel sounds, soft to palpation,non-tender and non-distended Extremity normal to inspection, full ROM and no clubbing, cyanosis or edema Neuro oriented x3, CN's II-XII intact bilaterally, moves all extremities and no focal motor deficits Sensorium / Orientation: awake and alert Speech: speech normal Motor Exam: strength 5/5 throughout Psych affect normal Results Lab / Micro Data 02/04/25 11:08 02/04/25 11:08 Labs: Laboratory Results - last 24 hr 02/04/25 11:08: WBC 10.7, RBC 3.87 L, Hgb 12.3, Hct 37.0, MCV 95.6, MCH 31.8, MCHC 33.2, RDW Std Deviation 49.9 H, RDW Coeff of Gerber 14.2, Plt Count 223, MPV 9.9, Immature Gran % (Auto) 0.500, Neut % (Auto) 77.1 H, Lymph % (Auto) 15.1 L, Daggett % (Auto) 4.9, Eos % (Auto) 1.5, Baso % (Auto) 0.9, Absolute Neuts (auto) 8.2 H, Absolute Lymphs (auto) 1.61, Nucleated RBC % 0, Sodium 140, Potassium 4.1, Chloride 107, Carbon Dioxide 21.0, Anion Gap 12, BUN 19, Creatinine 1.01, Estim Creat Clear Calc 53.28, Est GFR (MDRD) Non-Af 61, BUN/Creatinine Ratio 18.6, Glucose 105 H, Calcium 9.2, Troponin T High Sens 307 H* Rhythm Strip Rhythm Strip: Sinus Rhythm Rate: 73 Ectopy: None Imaging Radiology Impression Chest X-Ray 02/04/25 11:10 IMPRESSION: No acute cardio pulmonary process is identified radiographically. Arteriosclerotic vascular disease of the aorta is noted. A levoscoliosis of the thoracic spine is seen. Reading Location: [facility] Assessment & Plan Assessment/Plan (1) Non-ST elevation NV (NSTEMI): PLAN: Plan #nonstemi * Admitted with a complaint of chest pain. Initial troponin was 307. EKG showed some ST depression in the lateral leads. * Cardiology was consulted. Patient does have a history of CAD status post stents back in September 2024. * On heparin drip. * Has been compliant with her aspirin and Brilinta at home. However she does still continue to smoke. On high intensity statin. * For emergent cardiac cath today. Further management will be predicated on the findings of the cardiac cath. * Continue lisinopril and metoprolol. #Nicotine dependence: Counseled to quit. Nicotine patch 14 mg daily #Hyperlipidemia: On statin DVT prophylaxis: Not indicated as patient on heparin drip. CODE STATUS: Full code * Patient counseled extensively about different types of CODE STATUS including full code, DNR CCA and DNR CCA. Patient elects to be full code. * Total imjl-fh-fhow time 16 minutes. Charges/Coding Visit Charges Inpatient E&M: 11920 Init Hosp L3 Procedures Hospitalists Procedures: 58236 Advncd Care Plan 30 Min 02/04/25 1604 <Electronically signed by Estrella Hanna MD> Cosigner Signature (if applicable): CC: Dr. Estrella Hanna MD; Dr. Florin Bailey DO~ Signed [facility] Work Phone: [phone] 465-673804-14-2025 History and physical note [facility] Medical Records Department [address] [place] [address] H&P Exam - Hospitalist 02/04/25 1258 MR#: [id number] Acct: [id number] Name: MILY LONG Rep #:[id number] : 1960 64 From: Estrella Hanna MD PCP: Dr. Florin Bailey, DO Status:ADM IN Location: [place] [id number] HPI - General General Date of Admission: 02/04/25 Date of Service: 02/04/25 Chief Complaint: chest pain HPI Narrative MILY LONG, is a 64 F with a PMH as outlined who presents via the ED on 02/04/2025 with a complaint of chest pain. The chest pain woke her up in the middle of the night the day before admission.It was episodic the entire day before admission and says she woke up on the day of presentation with no chest pain. However, she drank some coffee and the chest pain recurred. She said it was burning, mid chest, with no aggravating or relieving factors. Pain worsened with driving. She did have 2 stents placed in September 2024. She called the EMSto bring her into the ED. She denied any shortness of breath, lightheadedness, dizziness, nausea vomiting or any other symptoms. She does continue to smoke about 1/2 pack daily. Previous symptoms otherwise negative. Vitals in the ED were blood pressure 101/84, pulse rate of 82 and temperature of98 Fahrenheit. Respirate rate was 13. Pulse ox was 98% on room air. CBC showed hemoglobin of 12.3 with WBC of 10.7 and platelets of 223. INR was 1. Chemistry showed sodium of 140 with potassium of 4.1 and bicarb of 21. Creatinine was 1.01. Initial troponin was 307. EKG showed some ST depression in the lateral leads. Cardiology was consulted and she is to be taken emergently to the cardiac [facility] to have cardiac cath reevaluated for in-stent stenosis in the setting of non-STEMI. [facility] Medical History UTI (urinary tract infection) Atherosclerosis of coronary artery of [place] heart without angina pectoris Myocardial infarct Home Medications ?Medication ?Instructions ?Recorded ?Last Taken ?Type aspirin 81 mg tablet,delayed 81 mg PO DAILY@0800 90 da ys #90 10/11/24 Unknown Rx release tabs atorvastatin 40 mg tablet 40 mg PO QHS 90 days #90 tab s 10/26/24 Unknown Rx lisinopril 2.5 mg tablet 2.5 mg PO DAILY 90 days #90 tabs 10/26/24 Unknown Rx metoprolol succinate 25 mg 25 mg PO DAILY 90 days #90 tabs 10/26/24 Unknown Rx tablet,extended release 24 hr (Toprol XL) ticagrelor 90 mg tablet (Brilinta) 90 mg PO BID 90 day s #180 tabs 10/26/24 Unknown Rx Allergy/AdvReac Type Severity Reaction Status Date / Time Penicillins Allergy Hives Verified 02/04/25 10:29 Sulfa (Sulfonamide AdvReac Diarrhea Verified 02/04/25 10:29 Antibiotics) Family History Father CAD (coronary artery disease) CABG age 68; CVA (cerebral vascular accident) Myocardial infarction Mother Cancer Cervical, Melanoma, Colon Surgical History History of carpal tunnel surgery of left wrist History of coronary artery stent placement (10/09/24) Social History household members: spouse housing: house Smoking Status: Current every day smoker tobacco type: cigarettes second hand exposure: No ROS Review of Systems ROS Unobtainable: Denies due to encephalopathy Constitutional Constitutional: Denies anorexia, chills, fatigue, fever(s), malaise or weakness Eyes Eyes: Denies change in vision ENT HEENT: Denies dysphagia, headache(s) or sore throat Cardiovascular Cardiovascular: Reports chest pain; Denies dyspnea on exertion, edema, lightheadedness, orthopnea, palpitations, paroxysmal nocturnal dyspnea, rapid heart rate or syncope Respiratory/Chest Respiratory/Chest: Denies cough, dyspnea, shortness of breath at rest or shortness of breath with exertion Gastrointestinal Gastrointestinal: Denies abdominal pain, constipation, diarrhea, nausea or vomiting Genitourinary Genitourinary: Denies burning urination or dysuria Musculoskeletal Musculoskeletal: Denies back pain Neurologic Neurologic: Denies confusion, dizziness, focal weakness, headache(s), numbness or paresthesias Psychiatric Psychiatric: Denies anxiety or depression Endocrine Endocrinology: Denies cold intolerance Vital Signs Vital Signs Vital Signs: 02/04/25 10:27 02/04/25 11:37 02/04/25 11:37 Temperature 97.6 F L Temperature Source Oral Pulse Rate 84 74 Respiratory Rate 16 18 Respiratory Effort Blood Pressure 124/70 H 104/69 Blood Pressure Mean 88 80 Pulse Ox 98 100 98 Oxygen Delivery Method Room Air Room Air 02/04/25 11:37 02/04/25 12:00 Temperature Temperature Source Pulse Rate 77 Respiratory Rate 13 Respiratory Effort Normal Non-Labored Blood Pressure 95/63 Blood Pressure Mean 73 Pulse Ox 98 Oxygen Delivery Method Weight Weight: 162 lb 4.163 oz Body Mass Index (BMI) 25.4 Physical Exam Const alert, oriented x3 and no apparent distress General Appearance: cooperative HEENT normocephalic, head/scalp atraumatic, hearing grossly normal bilaterally, moist oral mucous membranes and oropharynx normal Mouth: oral and palatal mucosa normal Eyes PERRL, EOMs intact bilaterally and conjunctivae normal Neck no lymphadenopathy and supple Resp normal respiratory effort, no retractions, no use of accessory muscles and clearto auscultation bilaterally Cardio regular rate, regular rhythm, S1 normal heart sound, S2 normal heart sound and no murmurs GI normal to inspection, nondistended, normoactive bowel sounds, soft to palpation,non-tender and non-distended Extremity normal to inspection, full ROM and no clubbing, cyanosis or edema Neuro oriented x3, CN's II-XII intact bilaterally, moves all extremities and no focal motor deficits Sensorium / Orientation: awake and alert Speech: speech normal Motor Exam: strength 5/5 throughout Psych affect normal Results Lab / Micro Data 02/04/25 11:08 02/04/25 11:08 Labs: Laboratory Results - last 24 hr 02/04/25 11:08: WBC 10.7, RBC 3.87 L, Hgb 12.3, Hct 37.0, MCV 95.6, MCH 31.8, MCHC 33.2, RDW Std Deviation 49.9 H, RDW Coeff of Gerber 14.2, Plt Count 223, MPV 9.9, Immature Gran % (Auto) 0.500, Neut % (Auto) 77.1 H, Lymph % (Auto) 15.1 L, Daggett % (Auto) 4.9, Eos % (Auto) 1.5, Baso % (Auto) 0.9, Absolute Neuts (auto) 8.2 H, Absolute Lymphs (auto) 1.61, Nucleated RBC % 0, Sodium 140, Potassium 4.1, Chloride 107, Carbon Dioxide 21.0, Anion Gap 12, BUN 19, Creatinine 1.01, Estim Creat Clear Calc 53.28, Est GFR (MDRD) Non-Af 61, BUN/Creatinine Ratio 18.6, Glucose 105 H, Calcium 9.2, Troponin T High Sens 307 H* Rhythm Strip Rhythm Strip: Sinus Rhythm Rate: 73 Ectopy: None Imaging Radiology Impression Chest X-Ray 02/04/25 11:10 IMPRESSION: No acute cardio pulmonary process is identified radiographically. Arteriosclerotic vascular disease of the aorta is noted. A levoscoliosis of the thoracic spine is seen. Reading Location: [id number] Assessment & Plan Assessment/Plan (1) Non-ST elevation NV (NSTEMI): PLAN: Plan #nonstemi * Admitted with a complaint of chest pain. Initial troponin was 307. EKG showed some ST depression in the lateral leads. * Cardiology was consulted. Patient does have a history of CAD status post stents back in September 2024. * On heparin drip. * Has been compliant with her aspirin and Brilinta at home. However she does still continue to smoke. On high intensity statin. * For emergent cardiac cath today. Further management will be predicated on the findings of the cardiac cath. * Continue lisinopril and metoprolol. #Nicotine dependence: Counseled to quit. Nicotine patch 14 mg daily #Hyperlipidemia: On statin DVT prophylaxis: Not indicated as patient on heparin drip. CODE STATUS: Full code * Patient counseled extensively about different types of CODE STATUS including full code, DNR CCA and DNR CCA. Patient elects to be full code. * Total eaoi-bx-cdgw time 16 minutes. Charges/Coding Visit Charges Inpatient E&M: 43186 Init Hosp L3 Procedures Hospitalists Procedures: 08047 Advncd Care Plan 30 Min 02/04/25 1604 Cosigner Signature (if applicable): CC: Dr. Estrella Hanna MD; Dr. Florin Bailey DO~ Signed [place] [id number] Consult note Author Deondre Leavitt [facility] Note Date/Time February 04, 2025 1:2 6pm [facility] Medical Records Department [address] [place] [address] Consultation - Cardiology 02/04/25 1311 MR#: [id number] Acct: [id number] Name: MILY LONG Rep #:[id number] : 1960 64 From: Deondre Leavitt MD PCP: Dr. Florin Bailey, Status:ADM IN Location: [place] [address]- 1 Assessment & Plan Assessment/Plan (1) Non-ST elevation NV (NSTEMI): PLAN: Patient presented with chest discomfort that has been episodic over the last 36 to 48 hours. EKG shows some subtle ST segment depressions anteriorly troponins elevated at 300. The patient has a known history of coronary disease status post stenting of the LAD with jailing of the ostium of the small diagonalbranch September 2024. Given these findings and symptoms occurring at rest even though they are not identical to her previous angina I would recommend that she proceed with left heart catheterization urgently. The procedure risk/benefit and alternatives were explained to the patient she voiced understanding and agrees to proceed. Dr. Galindo will perform the catheterization. (2) Hematuria: QUALIFIERS: Hematuria type: unspecified type Qualified Code(s): R31.9 - Hematuria, unspecified PLAN: Patient reports she is scheduled to have bladder biopsy done this to some hematuria. She has had multiple recurrent UTIs. Hemoglobin is stable at 12.3 and renal function is normal. (3) Hyperlipidemia: QUALIFIERS: Hyperlipidemia type: mixed hyperlipidemia Qualified Code(s): E78.2 - Mixed hyperlipidemia PLAN: Patient's lipids were reevaluated December 2024. Total cholesterol was 141 LDL was 74 triglycerides 117 on atorvastatin 40 mg daily. Patient has continuedon the atorvastatin 1 option may be to switch her to rosuvastatin 40 mg daily when she is reevaluated in the outpatient setting. (4) History of coronary artery stent placement: PLAN: Patient status post 2.75 mm stent in the proximal LAD September 2024 by . The diagonal was predilated prior to that but the stent is across the ostium of the diagonal. PLAN: Plan 1. Recommend the patient proceed with urgent left heart catheterization today. 2. Will address lipids in the outpatient setting by considering to switch to rosuvastatin 40 mg daily.. 3. Further recommendations once results of the catheterization are known. HPI Consult Data Date of Consult: 02/04/25 HPI Narrative Reason for Consultation: Recurrent chest pain with EKG changes and positive troponin HPI Narrative: MILY LONG, is a 64 F who presents with a history of chest discomfort thatawoke her from sleep night before last. She had a second episode yesterday these were relatively short-lived. She then drank coffee this morning and had recurrence of the symptoms although they were not identical to what she presented with with her STEMI in September 2024 they were similar. The patient came to the emergency room where her first troponin was 300 and her EKG showed nonspecific ST segment depressions in the anterior lateral leads that were different from her previous EKG. Currently the patient is on heparin IV and responded to nitroglycerin sublingual. She is pain-free at this point in time. She does have a history ofhematuria and had a cystoscope which was remarkable for some abnormalities in her bladder. She was scheduled to have bladder biopsy done this coming . She is maintaining her Brilinta and aspirin and has not missed any doses. The patient's LV function EF was 50% prior to her last discharge from the hospital. She had stage I diastolic dysfunction and severely hypokinetic mid anterior wall and apex. There was no significant valvular abnormality. Her lipids showed a total cholesterol of 226 HDL 37 LDL 116 triglycerides 146. I amnot certain of the medical dose she was on at the time those lipids were done inD2023. Currently she is on atorvastatin 40 mg daily. [facility] Medical History UTI (urinary tract infection) Atherosclerosis of coronary artery of [place] heart without angina pectoris Myocardial infarct Home Medications ?Medication ?Instructions ?Recorded ?Last Taken ?Type aspirin 81 mg tablet,delayed 81 mg PO DAILY@0800 90 da ys #90 10/11/24 Unknown Rx release tabs atorvastatin 40 mg tablet 40 mg PO QHS 90 days #90 tab s 10/26/24 Unknown Rx lisinopril 2.5 mg tablet 2.5 mg PO DAILY 90 days #90 tabs 10/26/24 Unknown Rx metoprolol succinate 25 mg 25 mg PO DAILY 90 days #90 tabs 10/26/24 Unknown Rx tablet,extended release 24 hr (Toprol XL) ticagrelor 90 mg tablet (Brilinta) 90 mg PO BID 90 day s #180 tabs 10/26/24 Unknown Rx Allergy/AdvReac Type Severity Reaction Status Date / Time Penicillins Allergy Hives Verified 02/04/25 10:29 Sulfa (Sulfonamide AdvReac Diarrhea Verified 02/04/25 10:29 Antibiotics) Family History Father CAD (coronary artery disease) CABG age 68; CVA (cerebral vascular accident) Myocardial infarction Mother Cancer Cervical, Melanoma, Colon Surgical History History of carpal tunnel surgery of left wrist History of coronary artery stent placement (10/09/24) Social History household members: spouse housing: house Smoking Status: Current every day smoker tobacco type: cigarettes second hand exposure: No ROS Constitutional Constitutional: Reports systems reviewed and no addt'l complaints, except as documented Eyes Eyes: Reports systems reviewed and no addt'l complaints, except as documented ENT HEENT: Reports systems reviewed and no addt'l complaints, except as documented Cardiovascular Cardiovascular: Reports as per HPI Respiratory/Chest Respiratory/Chest: Reports as per HPI Gastrointestinal Gastrointestinal: Reports systems reviewed and no addt'l complaints, except as documented Genitourinary Genitourinary: Reports as per HPI Musculoskeletal Musculoskeletal: Reports systems reviewed and no addt'l complaints, except as documented Integumentary Integumentary: Reports systems reviewed and no addt'l complaints, except as documented Neurologic Neurologic: Reports systems reviewed and no addt'l complaints, except as documented Endocrine Endocrinology: Reports systems reviewed and no addt'l complaints, except as documented Hematologic/Lymphatic Hematologic/Lymphatic: Reports as per HPI Allergic/Immunologic Allergic/Immunologic: Reports systems reviewed and no addt'l complaints, except as documented Physical Exam Const alert and oriented x3 HEENT normocephalic Eyes EOMs intact bilaterally Neck supple, no JVD and no carotid bruits Chest inspection of chest normal Resp normal respiratory effort and clear to auscultation bilaterally Cardio regular rate, regular rhythm, S1 normal heart sound and S2 normal heart sound Heart Sounds: S1 normal, S2 normal and murmur systolic II/ soft right sternal border; Negative for click or gallop Peripheral Pulses: radial pulses present right 2+ GI soft to palpation Extremity no pedal edema Psych mental status grossly normal Risk Stratification Risk Stratification Applicable: Yes Age >/= 65: Yes >/= 3 CAD Risk Factors (HTN, HLD, DM, family hx of CAD, or current smoker): Yes Aspirin Use in the Past 7 Days: Yes Severe Angina (>/= episodes in 24 hours): Yes EKG ST Changes >/= 0.5mm: Yes Positive Cardiac Marker: Yes MYESHA Risk Stratification Score: 6 MYESHA % Risk: 41% Risk Charges/Coding Visit Charges Inpatient E&M: 52527 Init Hosp L3 Objective Data Vital Signs: Vital Signs Temp Pulse Resp BP Pulse Ox O2 Del Method 98 F 82 13 101/84 H 98 Room Air 02/04/25 12:59 02/04/25 13:00 02/04/25 12:59 02/04/25 13:00 02/04/25 13:00 02/04/25 11:37 Oxygen Delivery Method Room Air Weight: 162 lb 4.163 oz Body Mass Index (BMI) 25.4 Lab / Micro Data Attestation: I reviewed the patient's lab results. 02/04/25 11:08 02/04/25 11:08 Labs: Laboratory Results - last 24 hr 02/04/25 11:08: WBC 10.7, RBC 3.87 L, Hgb 12.3, Hct 37.0, MCV 95.6, MCH 31.8, MCHC 33.2, RDW Std Deviation 49.9 H, RDW Coeff of Gerber 14.2, Plt Count 223, MPV 9.9, Immature Gran % (Auto) 0.500, Neut % (Auto) 77.1 H, Lymph % (Auto) 15.1 L, Daggett % (Auto) 4.9, Eos % (Auto) 1.5, Baso % (Auto) 0.9, Absolute Neuts (auto) 8.2 H, Absolute Lymphs (auto) 1.61, Nucleated RBC % 0, Sodium 140, Potassium 4.1, Chloride 107, Carbon Dioxide 21.0, Anion Gap 12, BUN 19, Creatinine 1.01, Estim Creat Clear Calc 53.28, Est GFR (MDRD) Non-Af 61, BUN/Creatinine Ratio 18.6, Glucose 105 H, Calcium 9.2, Troponin T High Sens 307 H* Rhythm Strip Rhythm Strip: Sinus Rhythm Rate: 70 Ectopy: None Cardiology Labs/Tests 02/04/25 11:08: WBC 10.7, RBC 3.87 L, Hgb 12.3, Hct 37.0, MCV 95.6, MCH 31.8, MCHC 33.2, Plt Count 223, MPV 9.9, Immature Gran % (Auto) 0.500, Neut % (Auto) 77.1 H, Lymph % (Auto) 15.1 L, Daggett % (Auto) 4.9, Eos % (Auto) 1.5, Baso % (Auto) 0.9, Absolute Neuts (auto) 8.2 H, Nucleated RBC % 0, Sodium 140, Potassium 4.1, Chloride 107, Carbon Dioxide 21.0, Anion Gap 12, BUN 19, Creatinine 1.01, Est GFR (MDRD) Non-Af 61, BUN/Creatinine Ratio 18.6, Glucose 105 H, Calcium 9.2 Rhythm: EKG: ECHO: Stress Test: Cardiac Cath: PCI: CT Surgery: Holter monitor: EPS: PPM: CXR: Chest CT Scan: Radiography Diagnostic Testing: Radiology Impression Chest X-Ray 02/04/25 11:10 IMPRESSION: No acute cardio pulmonary process is identified radiographically. Arteriosclerotic vascular disease of the aorta is noted. A levoscoliosis of the thoracic spine is seen. Reading Location: [id number] 02/04/25 132 <Electronically signed by Deondre Leavitt MD> Cosigner Signature (if applicable): CC: Dr. Florin Bailey, DO~ Signed [facility] Work Phone: 1(880) 982-733904-14-2025 Discharge summary Author Orlando Abdi [facility] Note Date/Time February 04, 2025 1:0 4pm [facility] Medical Records Department [address] [place] [id number] Emergency Department Summary 02/04/25 MR#: [id number] Acct: [id number] Name: MILY LONG Rep #:[id number] : 1960 64 From: Orlando Abdi MD PCP: Dr. Florin Bailey, DO Status:REG ER Location: ED HPI History of Present Illness Chief Complaint: Chest Pain Informant: patient and EMS Narrative Narrative: 64-year-old female has been having chest discomfort for 30-34 hours, woke her upin the middle of the night night before last. She states it was off and on all day yesterday and then this morning she woke up and it was gone, but she drinks coffee and suddenly it occurred again. It feels like burning, indigestion mid chest no radiation, but she also has a pain that she cannot describe otherwise that is in the same area. She states she was going to drive her cell to the ER but then the pain seemed to get worse while she was driving she turned around and went home and called EMS. She took some aspirin prior to coming here, she is on that and Brilinta since getting a stent in September, she states she had different symptoms with that. EMS gave her nitroglycerin and it helped a lot ofher symptoms although she was still belching, now some of it is coming back. She denies any other symptoms. No diaphoresis, nausea, vomiting, palpitations, lightheadedness, syncope or near syncope, or radiation to the jaw, neck, back, arms. [facility] Medical History UTI (urinary tract infection) Atherosclerosis of coronary artery of [place] heart without angina pectoris Myocardial infarct Home Medications ?Medication ?Instructions ?Recorded ?Last Taken ?Type aspirin 81 mg tablet,delayed 81 mg PO DAILY@0800 90 da ys #90 10/11/24 Unknown Rx release tabs atorvastatin 40 mg tablet 40 mg PO QHS 90 days #90 tab s 10/26/24 Unknown Rx lisinopril 2.5 mg tablet 2.5 mg PO DAILY 90 days #90 tabs 10/26/24 Unknown Rx metoprolol succinate 25 mg 25 mg PO DAILY 90 days #90 tabs 10/26/24 Unknown Rx tablet,extended release 24 hr (Toprol XL) ticagrelor 90 mg tablet (Brilinta) 90 mg PO BID 90 day s #180 tabs 10/26/24 Unknown Rx Allergy/AdvReac Type Severity Reaction Status Date / Time Penicillins Allergy Hives Verified 02/04/25 10:29 Sulfa (Sulfonamide AdvReac Diarrhea Verified 02/04/25 10:29 Antibiotics) Family History Father CAD (coronary artery disease) CABG age 68; CVA (cerebral vascular accident) Myocardial infarction Mother Cancer Cervical, Melanoma, Colon Surgical History History of carpal tunnel surgery of left wrist History of coronary artery stent placement (10/09/24) Social History (Updated 02/04/25 @ 11:37 by Bonnie Pablo) household members: spouse housing: house Smoking Status: Former smoker second hand exposure: No ROS ROS ED Constitutional Constitutional ED: Denies chills or fever(s) Eyes Eyes: Denies change in vision or diplopia ENT ENT ED: Denies rhinorrhea or sore throat Cardiovascular Cardiovascular: Reports as per HPI and chest pain; Denies palpitations Respiratory/Chest Respiratory/Chest: Denies cough or dyspnea Gastrointestinal Gastrointestinal: Denies abdominal pain, diarrhea, nausea or vomiting Genitourinary Genitourinary ED: Denies dysuria or hematuria Musculoskeletal Musculoskeletal: Denies back pain or neck pain Integumentary Denies abscess or rash Neurologic Neurologic: Denies headache(s), paresthesias or weakness Psychiatric Psychiatric: Denies anxiety or suicidal thoughts EXAM Physical Exam Const Vital Signs: 02/04/25 10:27 02/04/25 11:37 02/04/25 11:37 Temperature 97.6 F L Temperature Source Oral Pulse Rate 84 74 Respiratory Rate 16 18 Respiratory Effort Blood Pressure 124/70 H 104/69 Blood Pressure Mean 88 80 Pulse Ox 98 100 98 Oxygen Delivery Method Room Air Room Air 02/04/25 11:37 02/04/25 12:00 Temperature Temperature Source Pulse Rate 77 Respiratory Rate 13 Respiratory Effort Normal Non-Labored Blood Pressure 95/63 Blood Pressure Mean 73 Pulse Ox 98 Oxygen Delivery Method Positive well nourished and well developed General Appearance ED: well developed and NAD HEENT Reports moist mucous membranes normocephalic and atraumatic Eyes PERRL and EOMs intact bilaterally Neck full ROM and supple Resp normal respiratory effort and clear to auscultation bilaterally Cardio regular rate, regular rhythm and no murmurs GI non-tender and non-distended Auscultation: normoactive bowel sounds Palpation: soft Back/Spine no CVA tenderness General Back: other FROM Extremity normal to inspection General Extremety ED: Negative for edema, pulses abnormal or tenderness General Extremity: Negative for edema or pulses abnormal Neuro oriented x3, CN's II-XII intact bilaterally and no sensory deficits noted Sensorium / Orientation: awake and alert Motor Exam: strength 5/5 throughout Skin no rashes or lesions noted and no wounds Heart Score History: Moderately Suspicious ECG: Nonspecific Repolarization Age: >/= 65 years Risk Factors: >/= 3 Risk Factors or History of CAD Score: 6 MDM MDM MDM Narrative Medical decision making narrative: Patient's EKG appears to show some ST depressions, and interestingly a small/shallow ST elevation all in the lateral lead not reciprocal. In the meantime tried a GI cocktail, since the symptoms suggest GI etiology. On reevaluation, her discomfort is completely gone. Her troponin is elevated, suggesting an NSTEMI. I discussed with Dr. Leavitt with cardiology; he agrees, stating in a look like there were some lead reversal reversing 1 and aVL, we repeated the EKG, paying special attention not to reverse these leads, and thereis no ST elevation on the repeat EKG, but she does have some persistent precordial lateral depressions. This is in context of her being in pain-Free. Patient has been n.p.o. except for a small amount of coffee this morning, she isgoing to the [facility] at some point today per cardiology, and I discussed with hospitalist for admission to PCU. We started heparin in the ER. Lab Data Attestation: I reviewed the patient's lab results. Labs: Laboratory Results - last 24 hr 02/04/25 11:08 WBC 10.7 RBC 3.87 L Hgb 12.3 Hct 37.0 MCV 95.6 MCH 31.8 MCHC 33.2 RDW Std Deviation 49.9 H RDW Coeff of Gerber 14.2 Plt Count 223 MPV 9.9 Immature Gran % (Auto) 0.500 Neut % (Auto) 77.1 H Lymph % (Auto) 15.1 L Daggett % (Auto) 4.9 Eos % (Auto) 1.5 Baso % (Auto) 0.9 Absolute Neuts (auto) 8.2 H Absolute Lymphs (auto) 1.61 Nucleated RBC % 0 Sodium 140 Potassium 4.1 Chloride 107 Carbon Dioxide 21.0 Anion Gap 12 BUN 19 Creatinine 1.01 Estim Creat Clear Calc 53.28 Est GFR (MDRD) Non-Af 61 BUN/Creatinine Ratio 18.6 Glucose 105 H Calcium 9.2 Troponin T High Sens 307 H* Radiography Diagnostic Testing: Clinical Impression(s) from Imaging Studies Chest X-Ray 02/04/25 11:10 IMPRESSION: No acute cardio pulmonary process is identified radiographically. Arteriosclerotic vascular disease of the aorta is noted. A levoscoliosis of the thoracic spine is seen. Reading Location: [facility] Rhythm Strip Rhythm Strip: Sinus Rhythm Rate: 73 Ectopy: None EKG Initial EKG: Attestation: I personally reviewed and interpreted this EKG as follows: Interpretation: Sinus Rhythm, No Acute Injury Pattern and S-T Depression (V3-6, 1-2mm; 0.5mm CJ lead I only) Prior EKG tracings: available for review (12/11/24) Prior: Changed Follow-up EKG: Attestation: I personally reviewed and interpreted this EKG as follows: Interpretation: Sinus Rhythm and S-T Depression (similar precordial sept-lat) Prior: Unchanged Management Discussion w/another healthcare provider: Hospitalist and Lead Programmer (cardiologydr. leavitt) Discharge Plan Triage Chief Complaint: Chest Pain ED Provider: Orlando Abdi Dx/Rx/DC Orders Clinical Impression: Non-ST elevation NV (NSTEMI) Prescriptions: No Action lisinopril 2.5 mg tablet 2.5 mg PO DAILY 90 Days Qty: 90 3RF metoprolol succinate [Toprol XL] 25 mg tablet extended release 24 hr 25 mg PO DAILY 90 Days Qty: 90 3RF Brilinta 90 mg tablet 90 mg PO BID 90 Days Qty: 180 3RF atorvastatin 40 mg tablet 40 mg PO QHS 90 Days Qty: 90 3RF aspirin 81 mg Tablet,Delayed Release (Dr/Ec) 81 mg PO DAILY@0800 90 Days Qty: 90 3RF Primary Care Provider: Florin Bailey Referrals: Florin Bailey DO [Primary Care Provider] - Print Language: Bangladeshi Disposition Disposition: Acute Care Hospital [facility] What to do if you have Problems For any increased pain, shortness of breath, bleeding, nausea or vomiting, chestpain, or any unexpected problems, contact your Primary Care Provider. Call [facility] ([phone]) or report to the closest Emergency Room. Call 911 if necessary. 02/04/25 1304 <Electronically signed by Orlando Abdi MD> Cosigner Signature (if applicable): CC: Dr. Florin Bailey, DO ~ Signed [facility] Work Phone: 1(874) 980-188104-14-2025 Evaluation note* Diagnosis Onset Date Resolution Status Admit Date History of coronary artery stent placement February 04, 2025 chronic October 09, 2024 4:35pm Acute ST elevation myocardial infarction (STEMI) of anterolateral wall October 09, 2024 resolved September 4:35pm Hypersomnolence acute October 262024 3:15pm History of coronary artery stent placement February 04, 2025October 26 3:15pm Hyperlipidemia chronic October 3:15pm Tobacco abuse chronic October 3:15pm Obstructive sleep apnea acute 2024 8:38am Smoking greater than 30 pack years acute January 02, 2025 8:38am Hematuria acute January 23 8:52am History of coronary artery stent placement February 04, 2025 chronic January 23, 2025 8:52am Hyperlipidemia chronic January 23, 2025 8:52am Tobacco abuse chronic January 23, 2025 8:52am Hematuria acute February 04 1:00pm Non-ST elevation NV (NSTEMI) acute February 04, 2025 1:00pm History of coronary artery stent placement February 04, 2025 chronic February 04 1:00pm Hyperlipidemia chronic January 1:00pm [facility] Work Phone: 1(723) 321-507304-14-2025 Consult note [facility] Medical Records Department [address] [place] [address] Consultation - Cardiology 02/04/25 1311 MR#: [id number] Acct: [id number] Name: ETHANMILYSHIRLENE ADAMS Rep #:[id number] : 1960 64 From: Deondre Leavitt MD PCP: Dr. Florin Bailey, DO Status:ADM IN Location: [place] [id number] Assessment & Plan Assessment/Plan (1) Non-ST elevation NV (NSTEMI): PLAN: Patient presented with chest discomfort that has been episodic over the last 36 to 48 hours. EKG shows some subtle ST segment depressions anteriorly troponins elevated at 300. The patient has aknown history of coronary disease status post stenting of the LAD with jailing of the ostium of thesmall diagonalbranch September 2024. Given these findings and symptoms occurring at rest even though they are not identical to her previous angina I would recommend that she proceed with left heart catheterization urgently. The procedure risk/benefit and alternatives were explained to the patient she voiced understanding and agrees to proceed. Dr. Galindo will perform the catheterization. (2) Hematuria: QUALIFIERS: Hematuria type: unspecified type Qualified Code(s): R31.9 - Hematuria, unspecified PLAN: Patient reports she is scheduled to have bladder biopsy done this due to some hematuria. She has had multiple recurrent UTIs. Hemoglobin is stable at 12.3 and renal function is normal. (3) Hyperlipidemia: QUALIFIERS: Hyperlipidemia type: mixed hyperlipidemia Qualified Code(s): E78.2 - Mixed hyperlipidemia PLAN: Patient's lipids were reevaluated December 2024. Total cholesterol was 141 LDL was 74 triglycerides 117 on atorvastatin 40 mg daily. Patient has continuedon the atorvastatin 1 option may be to switch her to rosuvastatin 40 mg daily when she is reevaluated in the outpatient setting. (4) History of coronary artery stent placement: PLAN: Patient status post 2.75 mm stent in the proximal LAD September 2024 by . The diagonal was predilated prior to that but the stent is across the ostium of the diagonal. PLAN: Plan 1. Recommend the patient proceed with urgent left heart catheterization today. 2. Will address lipids in the outpatient setting by considering to switch to rosuvastatin 40 mg daily.. 3. Further recommendations once results of the catheterization are known. HPI Consult Data Date of Consult: 02/04/25 HPI Narrative Reason for Consultation: Recurrent chest pain with EKG changes and positive troponin HPI Narrative: MILY LONG, is a 64 F who presents with a history of chest discomfort thatawoke her from sleep night before last. She had a second episode yesterday these were relatively short-lived. She then drank coffee this morning and had recurrence of the symptoms although they were not identical to what she presented with with her STEMI in September 2024 they were similar. The patient came to the emergency room where her first troponin was 300 and her EKG showed nonspecific ST segment depressions inthe anterior lateral leads that were different from her previous EKG. Currently the patient is on heparin IV and responded to nitroglycerin sublingual. She is pain-free at this point in time. She does have a history ofhematuria and had a cystoscope which was remarkablefor some abnormalities in her bladder. She was scheduled to have bladder biopsy done this coming . She is maintaining her Brilinta and aspirin and has not missed any doses. The patient's LV function EF was 50% prior to her last discharge from the hospital. She had stage Idiastolic dysfunction and severely hypokinetic mid anterior wall and apex. There was no significantvalvular abnormality. Her lipids showed a total cholesterol of 226 HDL 37 LDL 116 triglycerides 146. I amnot certain of the medical dose she was on at the time those lipids were done inDecemb2023.Currently she is on atorvastatin 40 mg daily. [facility] Medical History UTI (urinary tract infection) Atherosclerosis of coronary artery of [place] heart without angina pectoris Myocardial infarct Home Medications ?Medication ?Instructions ?Recorded ?Last Taken ?Type aspirin 81 mg tablet,delayed 81 mg PO DAILY@0800 90 da ys #90 10/11/24 Unknown Rx release tabs atorvastatin 40 mg tablet 40 mg PO QHS 90 days #90 tab s 10/26/24 Unknown Rx lisinopril 2.5 mg tablet 2.5 mg PO DAILY 90 days #90 tabs 10/26/24 Unknown Rx metoprolol succinate 25 mg 25 mg PO DAILY 90 days #90 tabs 10/26/24 Unknown Rx tablet,extended release 24 hr (Toprol XL) ticagrelor 90 mg tablet (Brilinta) 90 mg PO BID 90 day s #180 tabs 10/26/24 Unknown Rx Allergy/AdvReac Type Severity Reaction Status Date / Time Penicillins Allergy Hives Verified 02/04/25 10:29 Sulfa (Sulfonamide AdvReac Diarrhea Verified 02/04/25 10:29 Antibiotics) Family History Father CAD (coronary artery disease) CABG age 68; CVA (cerebral vascular accident) Myocardial infarction Mother Cancer Cervical, Melanoma, Colon Surgical History History of carpal tunnel surgery of left wrist History of coronary artery stent placement (10/09/24) Social History household members: spouse housing: house Smoking Status: Current every day smoker tobacco type: cigarettes second hand exposure: No ROS Constitutional Constitutional: Reports systems reviewed and no addt'l complaints, except as documented Eyes Eyes: Reports systems reviewed and no addt'l complaints, except as documented ENT HEENT: Reports systems reviewed and no addt'l complaints, except as documented Cardiovascular Cardiovascular: Reports as per HPI Respiratory/Chest Respiratory/Chest: Reports as per HPI Gastrointestinal Gastrointestinal: Reports systems reviewed and no addt'l complaints, except as documented Genitourinary Genitourinary: Reports as per HPI Musculoskeletal Musculoskeletal: Reports systems reviewed and no addt'l complaints, except as documented Integumentary Integumentary: Reports systems reviewed and no addt'l complaints, except as documented Neurologic Neurologic: Reports systems reviewed and no addt'l complaints, except as documented Endocrine Endocrinology: Reports systems reviewed and no addt'l complaints, except as documented Hematologic/Lymphatic Hematologic/Lymphatic: Reports as per HPI Allergic/Immunologic Allergic/Immunologic: Reports systems reviewed and no addt'l complaints, except as documented Physical Exam Const alert and oriented x3 HEENT normocephalic Eyes EOMs intact bilaterally Neck supple, no JVD and no carotid bruits Chest inspection of chest normal Resp normal respiratory effort and clear to auscultation bilaterally Cardio regular rate, regular rhythm, S1 normal heart sound and S2 normal heart sound Heart Sounds: S1 normal, S2 normal and murmur systolic II/ soft right sternal border; Negative for click or gallop Peripheral Pulses: radial pulses present right 2+ GI soft to palpation Extremity no pedal edema Psych mental status grossly normal Risk Stratification Risk Stratification Applicable: Yes Age >/= 65: Yes >/= 3 CAD Risk Factors (HTN, HLD, DM, family hx of CAD, or current smoker): Yes Aspirin Use in the Past 7 Days: Yes Severe Angina (>/= episodes in 24 hours): Yes EKG ST Changes >/= 0.5mm: Yes Positive Cardiac Marker: Yes MYESHA Risk Stratification Score: 6 MYESHA % Risk: 41% Risk Charges/Coding Visit Charges Inpatient E&M: 41039 Init Hosp L3 Objective Data Vital Signs: Vital Signs Temp Pulse Resp BP Pulse Ox O2 Del Method 98 F 82 13 101/84 H 98 Room Air 02/04/25 12:59 02/04/25 13:00 02/04/25 12:59 02/04/25 13:00 02/04/25 13:00 02/04/25 11:37 Oxygen Delivery Method Room Air Weight: 162 lb 4.163 oz Body Mass Index (BMI) 25.4 Lab / Micro Data Attestation: I reviewed the patient's lab results. 02/04/25 11:08 02/04/25 11:08 Labs: Laboratory Results - last 24 hr 02/04/25 11:08: WBC 10.7, RBC 3.87 L, Hgb 12.3, Hct 37.0, MCV 95.6, MCH 31.8, MCHC 33.2, RDW Std Deviation 49.9 H, RDW Coeff of Gerber 14.2, Plt Count 223, MPV 9.9, Immature Gran % (Auto) 0.500, Neut % (Auto) 77.1 H, Lymph % (Auto) 15.1 L, Daggett % (Auto) 4.9, Eos % (Auto) 1.5, Baso % (Auto) 0.9, Absolute Neuts (auto) 8.2 H, Absolute Lymphs (auto) 1.61, Nucleated RBC % 0, Sodium 140, Potassium 4.1, Chloride 107, Carbon Dioxide 21.0, Anion Gap 12, BUN 19, Creatinine 1.01, Estim Creat Clear Calc 53.28, Est GFR (MDRD) Non-Af 61, BUN/Creatinine Ratio 18.6, Glucose 105 H, Calcium 9.2, Troponin T High Sens 307 H* Rhythm Strip Rhythm Strip: Sinus Rhythm Rate: 70 Ectopy: None Cardiology Labs/Tests 02/04/25 11:08: WBC 10.7, RBC 3.87 L, Hgb 12.3, Hct 37.0, MCV 95.6, MCH 31.8, MCHC 33.2, Plt Count 223, MPV 9.9, Immature Gran % (Auto) 0.500, Neut % (Auto) 77.1 H, Lymph % (Auto) 15.1 L, Daggett % (Auto) 4.9, Eos % (Auto) 1.5, Baso % (Auto) 0.9, Absolute Neuts (auto) 8.2 H, Nucleated RBC % 0, Sodium 140, Potassium 4.1, Chloride 107, Carbon Dioxide 21.0, Anion Gap 12, BUN 19, Creatinine 1.01, Est GFR (MDRD) Non-Af 61, BUN/Creatinine Ratio 18.6, Glucose 105 H, Calcium 9.2 Rhythm: EKG: ECHO: Stress Test: Cardiac Cath: PCI: CT Surgery: Holter monitor: EPS: PPM: CXR: Chest CT Scan: Radiography Diagnostic Testing: Radiology Impression Chest X-Ray 02/04/25 11:10 IMPRESSION: No acute cardio pulmonary process is identified radiographically. Arteriosclerotic vascular disease of the aorta is noted. A levoscoliosis of the thoracic spine is seen. Reading Location: [facility] 02/04/25 1326 Cosigner Signature (if applicable): CC: Dr. Florin Baliey DO~ Signed [facility]04-14-2025 Discharge summary [facility] Medical Records Department [address] [place] [address] Emergency Department Summary 02/04/25 MR#: [id number] Acct: [id number] Name: MILY LONG Rep #:[id number] : 1960 64 From: Orlando Abdi MD PCP: Dr. Florin Bailey DO Status:REG ER Location: ED HPI History of Present Illness Chief Complaint: Chest Pain Informant: patient and EMS Narrative Narrative: 64-year-old female has been having chest discomfort for 30-34 hours, woke her upin the middle of the night night before last. She states it was off and on all day yesterday and then this morning she woke up and it was gone, but she drinks coffee and suddenly it occurred again. It feels like burning, indigestion mid chest no radiation, but she also has a pain that she cannot describe otherwise that is in the same area. She states she was going to drive her cell to the ER but then the pain seemedto get worse while she was driving she turned around and went home and called EMS. She took some aspirin prior to coming here, she is on that and Brilinta since getting a stent in September, she states she had different symptoms with that. EMS gave her nitroglycerin and it helped a lot ofher symptoms although she was still belching, now some of it is coming back. She denies any other symptoms. No diaphoresis, nausea, vomiting, palpitations, lightheadedness, syncope or near syncope, or radiation to the jaw, neck, back, arms. [facility] Medical History UTI (urinary tract infection) Atherosclerosis of coronary artery of [place] heart without angina pectoris Myocardial infarct Home Medications ?Medication ?Instructions ?Recorded ?Last Taken ?Type aspirin 81 mg tablet,delayed 81 mg PO DAILY@0800 90 da ys #90 10/11/24 Unknown Rx release tabs atorvastatin 40 mg tablet 40 mg PO QHS 90 days #90 tab s 10/26/24 Unknown Rx lisinopril 2.5 mg tablet 2.5 mg PO DAILY 90 days #90 tabs 10/26/24 Unknown Rx metoprolol succinate 25 mg 25 mg PO DAILY 90 days #90 tabs 10/26/24 Unknown Rx tablet,extended release 24 hr (Toprol XL) ticagrelor 90 mg tablet (Brilinta) 90 mg PO BID 90 day s #180 tabs 10/26/24 Unknown Rx Allergy/AdvReac Type Severity Reaction Status Date / Time Penicillins Allergy Hives Verified 02/04/25 10:29 Sulfa (Sulfonamide AdvReac Diarrhea Verified 02/04/25 10:29 Antibiotics) Family History Father CAD (coronary artery disease) CABG age 68; CVA (cerebral vascular accident) Myocardial infarction Mother Cancer Cervical, Melanoma, Colon Surgical History History of carpal tunnel surgery of left wrist History of coronary artery stent placement (10/09/24) Social History (Updated 02/04/25 @ 11:37 by Bonnie Pablo) household members: spouse housing: house Smoking Status: Former smoker second hand exposure: No ROS ROS ED Constitutional Constitutional ED: Denies chills or fever(s) Eyes Eyes: Denies change in vision or diplopia ENT ENT ED: Denies rhinorrhea or sore throat Cardiovascular Cardiovascular: Reports as per HPI and chest pain; Denies palpitations Respiratory/Chest Respiratory/Chest: Denies cough or dyspnea Gastrointestinal Gastrointestinal: Denies abdominal pain, diarrhea, nausea or vomiting Genitourinary Genitourinary ED: Denies dysuria or hematuria Musculoskeletal Musculoskeletal: Denies back pain or neck pain Integumentary Denies abscess or rash Neurologic Neurologic: Denies headache(s), paresthesias or weakness Psychiatric Psychiatric: Denies anxiety or suicidal thoughts EXAM Physical Exam Const Vital Signs: 02/04/25 10:27 02/04/25 11:37 02/04/25 11:37 Temperature 97.6 F L Temperature Source Oral Pulse Rate 84 74 Respiratory Rate 16 18 Respiratory Effort Blood Pressure 124/70 H 104/69 Blood Pressure Mean 88 80 Pulse Ox 98 100 98 Oxygen Delivery Method Room Air Room Air 02/04/25 11:37 02/04/25 12:00 Temperature Temperature Source Pulse Rate 77 Respiratory Rate 13 Respiratory Effort Normal Non-Labored Blood Pressure 95/63 Blood Pressure Mean 73 Pulse Ox 98 Oxygen Delivery Method Positive well nourished and well developed General Appearance ED: well developed and NAD HEENT Reports moist mucous membranes normocephalic and atraumatic Eyes PERRL and EOMs intact bilaterally Neck full ROM and supple Resp normal respiratory effort and clear to auscultation bilaterally Cardio regular rate, regular rhythm and no murmurs GI non-tender and non-distended Auscultation: normoactive bowel sounds Palpation: soft Back/Spine no CVA tenderness General Back: other FROM Extremity normal to inspection General Extremety ED: Negative for edema, pulses abnormal or tenderness General Extremity: Negative for edema or pulses abnormal Neuro oriented x3, CN's II-XII intact bilaterally and no sensory deficits noted Sensorium / Orientation: awake and alert Motor Exam: strength 5/5 throughout Skin no rashes or lesions noted and no wounds Heart Score History: Moderately Suspicious ECG: Nonspecific Repolarization Age: >/= 65 years Risk Factors: >/= 3 Risk Factors or History of CAD Score: 6 MDM MDM MDM Narrative Medical decision making narrative: Patient's EKG appears to show some ST depressions, and interestingly a small/shallow ST elevation all in the lateral lead not reciprocal. In the meantime tried a GI cocktail, since the symptoms suggest GI etiology. On reevaluation, her discomfort is completely gone. Her troponin is elevated, suggesting an NSTEMI. I discussed with Dr. Leavitt with cardiology; he agrees, stating in a look like therewere some lead reversal reversing 1 and aVL, we repeated the EKG, paying special attention not to reverse these leads, and thereis no ST elevation on the repeat EKG, but she does have some persistent precordial lateral depressions. This is in context of her being in pain-Free. Patient has been n.p.o. except for a small amount of coffee this morning, she isgoing to the [facility] at some point todayper cardiology, and I discussed with hospitalist for admission to PCU. We started heparin in the ER. Lab Data Attestation: I reviewed the patient's lab results. Labs: Laboratory Results - last 24 hr 02/04/25 11:08 WBC 10.7 RBC 3.87 L Hgb 12.3 Hct 37.0 MCV 95.6 MCH 31.8 MCHC 33.2 RDW Std Deviation 49.9 H RDW Coeff of Gerber 14.2 Plt Count 223 MPV 9.9 Immature Gran % (Auto) 0.500 Neut % (Auto) 77.1 H Lymph % (Auto) 15.1 L Daggett % (Auto) 4.9 Eos % (Auto) 1.5 Baso % (Auto) 0.9 Absolute Neuts (auto) 8.2 H Absolute Lymphs (auto) 1.61 Nucleated RBC % 0 Sodium 140 Potassium 4.1 Chloride 107 Carbon Dioxide 21.0 Anion Gap 12 BUN 19 Creatinine 1.01 Estim Creat Clear Calc 53.28 Est GFR (MDRD) Non-Af 61 BUN/Creatinine Ratio 18.6 Glucose 105 H Calcium 9.2 Troponin T High Sens 307 H* Radiography Diagnostic Testing: Clinical Impression(s) from Imaging Studies Chest X-Ray 02/04/25 11:10 IMPRESSION: No acute cardio pulmonary process is identified radiographically. Arteriosclerotic vascular disease of the aorta is noted. A levoscoliosis of the thoracic spine is seen. Reading Location: [facility] Rhythm Strip Rhythm Strip: Sinus Rhythm Rate: 73 Ectopy: None EKG Initial EKG: Attestation: I personally reviewed and interpreted this EKG as follows: Interpretation: Sinus Rhythm, No Acute Injury Pattern and S-T Depression (V3-6, 1-2mm; 0.5mm CJ lead I only) Prior EKG tracings: available for review (12/11/24) Prior: Changed Follow-up EKG: Attestation: I personally reviewed and interpreted this EKG as follows: Interpretation: Sinus Rhythm and S-T Depression (similar precordial sept-lat) Prior: Unchanged Management Discussion w/another healthcare provider: Hospitalist and Lead Programmer (cardiologydr. leavitt) Discharge Plan Triage Chief Complaint: Chest Pain ED Provider: Orlando Abdi Dx/Rx/DC Orders Clinical Impression: Non-ST elevation NV (NSTEMI) Prescriptions: No Action lisinopril 2.5 mg tablet 2.5 mg PO DAILY 90 Days Qty: 90 3RF metoprolol succinate [Toprol XL] 25 mg tablet extended release 24 hr 25 mg PO DAILY 90 Days Qty: 90 3RF Brilinta 90 mg tablet 90 mg PO BID 90 Days Qty: 180 3RF atorvastatin 40 mg tablet 40 mg PO QHS 90 Days Qty: 90 3RF aspirin 81 mg Tablet,Delayed Release (Dr/Ec) 81 mg PO DAILY@0800 90 Days Qty: 90 3RF Primary Care Provider: Florin Bailey Referrals: Florin Bailey DO [Primary Care Provider] - Print Language: Bangladeshi Disposition Disposition: Acute Care Hospital [facility] What to do if you have Problems For any increased pain, shortness of breath, bleeding, nausea or vomiting, chestpain, or any unexpected problems, contact your Primary Care Provider. Call [facility] ([phone]) or report tothe closest Emergency Room. Call 911 if necessary. 02/04/25 1304 Cosigner Signature (if applicable): CC: Dr. Florin Bailey DO ~ Signed [facility]04-14-2025 Radiology Diagnostic study note [facility] Imaging Services [address] [place], [place] [address] Chest 1 View (Portable) MR#: [id number] Acct: [id number] Name: MILY LONG Rep #: [id number] : 1960 F 64 From: Lewis Mcgraw DO PCP: Dr. Florin Bailey DO Status: REG ER Study:Chest 1 View (Portable) Date of Exam: 02/04/25 Exam# [id number] Ordering Dr: Maryellen Abdi MD PROCEDURE: CHEST 1 VIEW (PORTABLE) 02/04/2025 REASON FOR EXAM: CHEST PAIN TECHNIQUE: Frontal view of the chest. COMPARISON: Chest x-ray study dated 12/11/2024 FINDINGS: Heart size and configuration within normal limits. Pulmonary vasculature and hilar structures are unremarkable. Trachea is midline. Arteriosclerotic vascular disease of the aorta is noted. Lungs are expanded and clear without evidence of atelectasis, consolidation, effusion or pneumonic infiltrate. Cardiac leads overlie the chest. A levoscoliosis of the lower thoracic spine is seen. RAD/Chest 1 View (Portable) IMPRESSION: No acute cardio pulmonary process is identified radiographically. Arteriosclerotic vascular disease of the aorta is noted. A levoscoliosis of the thoracic spine is seen. Reading Location: [id number] CC: Dr. Orlando Abdi MD; Dr. Florin Bailey DO ~ Vice President Integrated: Signed [facility]04-04-2025 Radiology Diagnostic study note [facility] Imaging Services [address] [place] [id number] Abd/Pelvis W/WO Contrast MR#: [id number] Acct: [id number] Name: MILY LONG Rep #: [id number] : 1960 F 64 From: Oseas Rodríguez MD PCP: Dr. Florin Bailey, Status: REG CLI Study:CT Abd/Pelvis W/WO Contrast Date of Exa m: 01/24/25 Exam# [id number] Ordering Dr: Roxanne Olivas MD PROCEDURE: CT ABD/PELVIS W/WO CONTRAST 01/24/2025 REASON FOR EXAM: HEMATURIA Recurrent UTI. TECHNIQUE: Abdomen and pelvis CT with intravenous contrast. Coronal and Sagittal reconstruction series were provided. PATIENT PREPARATION: Per protocol ORAL CONTRAST TYPE: None. CONTRAST: Isovue-300 VOLUME: 90 mL One or more dose reduction techniques were used (e.g., Automated exposure control, adjustment of the mA and/or kV according to patient size, use of iterative reconstruction technique. RADIATION DOSE SUMMARY: CTDlvol: 19 mGy DLP: 3026.31 mGycm COMPARISON: None FINDINGS: Lung bases: Calcified granuloma in the posterior lateral aspect of the left lower lobe. Liver: Unremarkable Gallbladder: Unremarkable Spleen: Scattered calcified splenic granulomas. Pancreas: Normal size without evidence of mass surrounding inflammation or ductal dilation. Adrenals: Unremarkable Kidneys: Normal renal sizes. No hydronephrosis. Bladder: Unremarkable Reproductive Organs: Normal uterine size and contour. Ovaries are unremarkable. Bowel: No bowel obstruction. Appendix: A small appendicolith is present. No surrounding inflammatory process identified. Lymph nodes: No suspicious lymph node enlargement. Vasculature: The abdominal aorta and IVC are normal. Peritoneum / Retroperitoneum: Unremarkable Bones: Degenerative changes of the spine. No acute abnormality is seen. Reading Location: [facility] CC: Dr. Roxanne Olivas MD; Dr. Florin Bailey, DO ~ Vice President Integrated: Signed [facility]03-12-2025 Evaluation note* Diagnosis Onset Date Resolution Status Admit Date Obstructive sleep apnea acute M 2024 8:38am Smoking greater than 30 pack years acute January 02, 2025 8:38am Tobacco abuse chronic January 23, 2025 8:52am Hematuria inactive January 23 8:52am History of coronary artery stent placement February 04, 2025 inactive January 23, 2025 8:52am Hyperlipidemia inactive January 23, 2025 8:52am Hematuria inactive February 04 1:00pm History of coronary artery stent placement February 04, 2025 inactive February 04 1:00pm Hyperlipidemia inactive January 1:00pm Non-ST elevation NV (NSTEMI) inactiv e February 04, 2025 1:00pm Murmur acute February 07 11:23am Palpitations acute February 07, 2025 11:23am Tobacco abuse chronic February 07, 2025 11:23am Fatigue inactive February 07 11:23am Hematuria inactive February 07 11:23am History of coronary artery stent placement February 04, 2025 inactive February 07 11:23am Hyperlipidemia inactive January 11:23am Acute GI bleeding acute January 232024 2:05pm [facility] Work Phone: 1([phone]) 225-542303-12-2025 Evaluation note* Diagnosis Onset Date Resolution Status Admit Date Obstructive sleep apnea acute M arch 2024 8:38am Smoking greater than 30 pack years acute January 02, 2025 8:38am Tobacco abuse chronic January 23, 2025 8:52am Hematuria inactive January 23 8:52am History of coronary artery stent placement February 04, 2025 inactive January 23, 2025 8:52am Hyperlipidemia inactive January 23, 2025 8:52am Hematuria inactive February 04 1:00pm History of coronary artery stent placement February 04, 2025 inactive February 04 1:00pm Hyperlipidemia inactive January 1:00pm Non-ST elevation NV (NSTEMI) inactiv e February 04, 2025 1:00pm Murmur acute February 07 11:23am Palpitations acute February 07, 2025 11:23am Tobacco abuse chronic February 07, 2025 11:23am Fatigue inactive February 07 11:23am Hematuria inactive February 07 11:23am History of coronary artery stent placement February 04, 2025 inactive February 07 11:23am Hyperlipidemia inactive January 11:23am Acute GI bleeding resolved January 232024 2:05pm Anemia acute March 03, 2025 7:33am ZAMORANO (dyspnea on exertion) acute March 03, 2025 7:33am GI bleed acute March 03, 2025 7:33am Palpitations acute March 03 7:33am Weakness acute March 03, 2025 7:33am [facility] Work Phone: 1([phone]) 223-297203-12-2025 Evaluation note* Diagnosis Onset Date Resolution Status Admit Date Obstructive sleep apnea acute M arch 2024 8:38am Smoking greater than 30 pack years acute January 02, 2025 8:38am Tobacco abuse chronic January 23, 2025 8:52am Hematuria inactive January 23 8:52am History of coronary artery stent placement February 04, 2025 inactive January 23, 2025 8:52am Hyperlipidemia inactive January 23, 2025 8:52am Hematuria inactive February 04 1:00pm History of coronary artery stent placement February 04, 2025 inactive February 04 1:00pm Hyperlipidemia inactive January 1:00pm Non-ST elevation NV (NSTEMI) inactiv e February 04, 2025 1:00pm Murmur acute February 07 11:23am Palpitations acute February 07, 2025 11:23am Tobacco abuse chronic February 07, 2025 11:23am Fatigue inactive February 07 11:23am Hematuria inactive February 07 11:23am History of coronary artery stent placement February 04, 2025 inactive February 07 11:23am Hyperlipidemia inactive January 11:23am Acute GI bleeding resolved January 232024 2:05pm Anemia acute March 03, 2025 7:13am ZAMORANO (dyspnea on exertion) acute March 03, 2025 7:13am GI bleed acute March 03, 2025 7:13am Palpitations acute March 03 7:13am Weakness acute March 03, 2025 7:13am Acute GI bleeding resolved February 7:13am [facility] Work Phone: 1(501) 394-693203-12-2025 Evaluation note* Diagnosis Onset Date Resolution Status Admit Date Obstructive sleep apnea acute M arch 2024 8:38am Smoking greater than 30 pack years acute January 02, 2025 8:38am Tobacco abuse chronic January 23, 2025 8:52am Hematuria inactive January 23 8:52am History of coronary artery stent placement February 04, 2025 inactive January 23, 2025 8:52am Hyperlipidemia inactive January 23, 2025 8:52am Hematuria inactive February 04 1:00pm History of coronary artery stent placement February 04, 2025 inactive February 04 1:00pm Hyperlipidemia inactive January 1:00pm Non-ST elevation NV (NSTEMI) inactiv e February 04, 2025 1:00pm Murmur acute February 07 11:23am Tobacco abuse chronic February 07, 2025 11:23am Palpitations resolved February 07, 2025 11:23am Fatigue inactive February 07 11:23am Hematuria inactive February 07 11:23am History of coronary artery stent placement February 04, 2025 inactive February 07 11:23am Hyperlipidemia inactive January 11:23am Acute GI bleeding resolved January 232024 2:05pm Acute GI bleeding resolved February 7:13am ZAMORANO (dyspnea on exertion) resolved March 03, 2025 7:13am GI bleed resolved March 03, 2025 7:13am Palpitations resolved March 03 7:13am Weakness resolved March 03, 2025 7:13am Anemia inactive March 03, 2025 7:13am [employer] [facility] Work Phone: 1(790) 349-315003-12-2025 Evaluation note* Diagnosis Onset Date Resolution Status Admit Date Obstructive sleep apnea acute M arch 2024 8:38am Smoking greater than 30 pack years acute January 02, 2025 8:38am Tobacco abuse chronic January 23, 2025 8:52am Hematuria inactive January 23 8:52am History of coronary artery stent placement February 04, 2025 inactive January 23, 2025 8:52am Hyperlipidemia inactive January 23, 2025 8:52am Hematuria inactive February 04 1:00pm History of coronary artery stent placement February 04, 2025 inactive February 04 1:00pm Hyperlipidemia inactive January 1:00pm Non-ST elevation NV (NSTEMI) inactiv e February 04, 2025 1:00pm Murmur acute February 07 11:23am Tobacco abuse chronic February 07, 2025 11:23am Palpitations resolved February 07, 2025 11:23am Fatigue inactive February 07 11:23am Hematuria inactive February 07 11:23am History of coronary artery stent placement February 04, 2025 inactive February 07 11:23am Hyperlipidemia inactive January 11:23am Acute GI bleeding resolved January 232024 2:05pm Anemia acute March 03, 2025 7:13am Acute GI bleeding resolved February 7:13am ZAMORANO (dyspnea on exertion) resolved March 03, 2025 7:13am GI bleed resolved March 03, 2025 7:13am Palpitations resolved March 03 7:13am Weakness resolved March 03, 2025 7:13am [facility] Work Phone: 1(143) 906-232203-12-2025 Evaluation note* Diagnosis Onset Date Resolution Status Admit Date Obstructive sleep apnea acute M 2024 8:38am Smoking greater than 30 pack years acute January 02, 2025 8:38am Tobacco abuse chronic January 23, 2025 8:52am Hematuria inactive January 23 8:52am History of coronary artery stent placement February 04, 2025 inactive January 23, 2025 8:52am Hyperlipidemia inactive January 23, 2025 8:52am Hematuria inactive February 04 1:00pm History of coronary artery stent placement February 04, 2025 inactive February 04 1:00pm Hyperlipidemia inactive January 1:00pm Non-ST elevation NV (NSTEMI) inactiv e February 04, 2025 1:00pm Murmur acute February 07 11:23am Tobacco abuse chronic February 07, 2025 11:23am Palpitations resolved February 07, 2025 11:23am Fatigue inactive February 07 11:23am Hematuria inactive February 07 11:23am History of coronary artery stent placement February 04, 2025 inactive February 07 11:23am Hyperlipidemia inactive January 11:23am Acute GI bleeding resolved January 232024 2:05pm Anemia acute March 03, 2025 7:13am Acute GI bleeding resolved February 7:13am ZAMORANO (dyspnea on exertion) resolved March 03, 2025 7:13am GI bleed resolved March 03, 2025 7:13am Palpitations resolved March 03 7:13am Weakness resolved March 03, 2025 7:13am Anemia acute March 20, 2025 2:22pm [employer] [facility] Work Phone: 1(975) 805-569903-12-2025 Evaluation note* Diagnosis Onset Date Resolution Status Admit Date Obstructive sleep apnea acute M arch 2024 8:38am Smoking greater than 30 pack years acute January 02, 2025 8:38am Tobacco abuse chronic January 23, 2025 8:52am Hematuria inactive January 23 8:52am History of coronary artery stent placement February 04, 2025 inactive January 23, 2025 8:52am Hyperlipidemia inactive January 23, 2025 8:52am Hematuria inactive February 04 1:00pm History of coronary artery stent placement February 04, 2025 inactive February 04 1:00pm Hyperlipidemia inactive January 1:00pm Non-ST elevation NV (NSTEMI) inactiv e February 04, 2025 1:00pm Murmur acute February 07 11:23am Tobacco abuse chronic February 07, 2025 11:23am Palpitations resolved February 07, 2025 11:23am Fatigue inactive February 07 11:23am Hematuria inactive February 07 11:23am History of coronary artery stent placement February 04, 2025 inactive February 07 11:23am Hyperlipidemia inactive January 11:23am Acute GI bleeding resolved January 232024 2:05pm Anemia acute March 03, 2025 7:13am Acute GI bleeding resolved February 7:13am ZAMORANO (dyspnea on exertion) resolved March 03, 2025 7:13am GI bleed resolved March 03, 2025 7:13am Palpitations resolved March 03 7:13am Weakness resolved March 03, 2025 7:13am Anemia acute March 20, 2025 2:22pm Anemia acute April 05 11:21am Atherosclerosis of coronary artery of [place] heart without angina pectoris acute March 11:21am Bilateral lower extremity edema acute April 05, 2025 11:21am Cardiac murmur acute April 05, 2025 11:21am [facility] Work Phone: 1([phone]) 860-214003-12-2025 Evaluation note* Diagnosis Onset Date Resolution Status Admit Date Obstructive sleep apnea acute M arch 2024 8:38am Smoking greater than 30 pack years acute January 02, 2025 8:38am Tobacco abuse chronic January 23, 2025 8:52am Hematuria inactive January 23 8:52am History of coronary artery stent placement February 04, 2025 inactive January 23, 2025 8:52am Hyperlipidemia inactive January 23, 2025 8:52am Hematuria inactive February 04 1:00pm History of coronary artery stent placement February 04, 2025 inactive February 04 1:00pm Hyperlipidemia inactive January 1:00pm Non-ST elevation NV (NSTEMI) inactiv e February 04, 2025 1:00pm Murmur acute February 07 11:23am Tobacco abuse chronic February 07, 2025 11:23am Palpitations resolved February 07, 2025 11:23am Fatigue inactive February 07 11:23am Hematuria inactive February 07 11:23am History of coronary artery stent placement February 04, 2025 inactive February 07 11:23am Hyperlipidemia inactive January 11:23am Acute GI bleeding resolved January 232024 2:05pm Anemia acute March 03, 2025 7:13am Acute GI bleeding resolved February 7:13am ZAMORANO (dyspnea on exertion) resolved March 03, 2025 7:13am GI bleed resolved March 03, 2025 7:13am Palpitations resolved March 03 7:13am Weakness resolved March 03, 2025 7:13am Anemia acute March 20, 2025 2:22pm Anemia acute April 05 11:21am Atherosclerosis of coronary artery of [place] heart without angina pectoris acute March 11:21am Bilateral lower extremity edema acute April 05, 2025 11:21am Cardiac murmur acute April 05, 2025 11:21am Anemia acute April 23, 2025 11:20am [facility] Work Phone: 1(573) 982-989503-05-2025 Note. MICRO - Microbiology PROCEDURE: Urine Culture [*1] SOURCE: Urine, Clean Catch BODY SITE: COLLECTED DATE/TIME: 12/24/2024 13:49 EST RECEIVED DATE/TIME: 12/24/2024 18:57 EST START DATE/TIME: 12/24/2024 18:57 EST FREE TEXT SOURCE: FINAL REPORTS Final Report [] Verified Date/Time/Personnel: 12/26/2024 06:46 EST 50,000 - 100,000 cfu/ml Escherichia coli PRELIMINARY REPORTS Preliminary Report [] Verified Date/Time/Personnel: 12/25/2024 08:49 EST 50,000 - 100,000 cfu/ml Escherichia coli BHAVESH to follow Preliminary Report [] Verified Date/Time/Personnel: 12/24/2024 19:59 EST Specimen received in lab. SUSCEPTIBILITY RESULTS Escherichia coli Antibiotic BHAVESH Dilut BHAVESH Inter Ampicillin <=8 Susceptible Ampicillin/ <=4/2 Susceptible Sulbactam Aztreonam <=4 Susceptible Cefazolin <=2 Susceptible Ceftazidime/ <=4 Susceptible Avibactam Ceftolozane/ <=2 Susceptible Tazobactam Ciprofloxacin <=0.25 Susceptible Ertapenem <=0.5 Susceptible Gentamicin <=2 Susceptible ID Panel Not Not Applicable Applicable Imipenem <=1 Susceptible Levofloxacin <=0.5 Susceptible Meropenem <=1 Susceptible Minocycline <=4 Susceptible Nitrofurantoin <=32 Susceptible Trimethoprim/ <=0.5/9.5 Susceptible Sulfa Performing Locations *1: This test was performed at: [address], [facility] , [facility]02-20-2025 Note* Exam Date Time Procedure Performing Provider Status 12/13/24 9:33 AM XR Esophogram w/Barium Tablet DEONDRE BLACK MD; Auth (Verified) [id number] ORIGINAL EXAMINATION: SINGLE CONTRAST ESOPHAGRAM 12/13/2024 HISTORY: ORDERING SYSTEM PROVIDED HISTORY: Reason for Exam: dysphagia; epigastric pain; dyspnea COMPARISON: None. TECHNIQUE: Multiple double contrast images of the esophagus and gastroesophageal junction were obtained following the oral administration of barium FLUOROSCOPY DOSE AND TYPE: Radiation Exposure Index: Kerma mGy, 45.3. 130 seconds of fluoroscopy time was utilized. FINDINGS: No evidence of stricture or obstruction. The esophagus demonstrates mild dysmotility with slight delay of passage of contrast through the esophagus. No evidence of leak. No hiatal hernia is seen and there is no evidence of achalasia. No spontaneous gastroesophageal reflux. No gastroesophageal reflux was able to be elicited during examination with a water siphon test. IMPRESSION: Mild dysmotility, this study otherwise is unremarkable. Interpreted by: Deondre Black MD Preliminary Report By: Deondre Black MD Electronically signed By Deondre Black MD Dictated Date: 12/13/2024 11:57:07 AM Prelim Date: 12/13/2024 12:00:00 PM Sign Date: 12/13/2024 12:00:00 PM Ordering Provider: TOM WILLIS [facility]02-14-2025 Note. MICRO - Microbiology PROCEDURE: Urine Culture [*1] SOURCE: Urine, Clean Catch BODY SITE: COLLECTED DATE/TIME: 12/05/2024 13:45 EST RECEIVED DATE/TIME: 12/05/2024 19:22 EST START DATE/TIME: 12/05/2024 19:22 EST FREE TEXT SOURCE: FINAL REPORTS Final Report [] Verified Date/Time/Personnel: 12/07/2024 08:15 EST 10,000 - 50,000 cfu/ml Escherichia coli PRELIMINARY REPORTS Preliminary Report [] Verified Date/Time/Personnel: 12/06/2024 10:22 EST 10,000 - 50,000 cfu/ml Escherichia coli BHAVESH to follow SUSCEPTIBILITY RESULTS Escherichia coli Antibiotic BHAVESH Dilut BHAVESH Inter Ampicillin <=8 Susceptible Ampicillin/ <=4/2 Susceptible Sulbactam Aztreonam <=4 Susceptible Cefazolin <=2 Susceptible Ceftazidime/ <=4 Susceptible Avibactam Ceftolozane/ <=2 Susceptible Tazobactam Ciprofloxacin <=0.25 Susceptible Ertapenem <=0.5 Susceptible Gentamicin <=2 Susceptible ID Panel Not Not Applicable Applicable Imipenem <=1 Susceptible Levofloxacin <=0.5 Susceptible Meropenem <=1 Susceptible Minocycline <=4 Susceptible Nitrofurantoin <=32 Susceptible Trimethoprim/ <=0.5/9.5 Susceptible Sulfa Performing Locations *1: This test was performed at: [facility], [address] [place] [address], [id number] , [facility]01-12-2025 Note. MICRO - Microbiology PROCEDURE: Urine Culture [*1] SOURCE: Urine, Clean Catch BODY SITE: COLLECTED DATE/TIME: 11/03/2024 10:54 EST RECEIVED DATE/TIME: 11/03/2024 17:01 EST START DATE/TIME: 11/03/2024 17:01 EST FREE TEXT SOURCE: FINAL REPORTS Final Report [] Verified Date/Time/Personnel: 11/04/2024 14:01 EST 10,000 - 50,000 cfu/ml Mixed growth consistent with normal urogenital chilo. Performing Locations *1: This test was performed at: [facility], [address] [place] [address], [id number]- , [facility]01-03-2025 Evaluation note* Diagnosis Onset Date Resolution Status Admit Date Hypersomnolence acute October 262024 3:15pm Tobacco abuse chronic October 3:15pm History of coronary artery stent placement February 04, 2025 inactive October 26 3:15pm Hyperlipidemia inactive October 3:15pm Obstructive sleep apnea acute M 2024 8:38am Smoking greater than 30 pack years acute January 02, 2025 8:38am Tobacco abuse chronic January 23, 2025 8:52am Hematuria inactive January 23 8:52am History of coronary artery stent placement February 04, 2025 inactive January 23, 2025 8:52am Hyperlipidemia inactive January 23, 2025 8:52am Hematuria inactive February 04 1:00pm History of coronary artery stent placement February 04, 2025 inactive February 04 1:00pm Hyperlipidemia inactive January 1:00pm Non-ST elevation NV (NSTEMI) inactiv e February 04, 2025 1:00pm Murmur acute February 07 11:23am Palpitations acute February 07, 2025 11:23am Tobacco abuse chronic February 07, 2025 11:23am Fatigue inactive February 07 11:23am Hematuria inactive February 07 11:23am History of coronary artery stent placement February 04, 2025 inactive February 07 11:23am Hyperlipidemia inactive January 11:23am [facility] Work Phone: 1([phone]) 636-116712-19-2024 [facility]12-17-2024 Evaluation note* Diagnosis Onset Date Resolution Status Admit Date History of coronary artery stent placement October 09, 2024 chronic September 4:35pm Acute ST elevation myocardial infarction (STEMI) of anterolateral wall October 09, 2024 resolved September 4:35pm Hypersomnolence acute October 262024 3:15pm History of coronary artery stent placement October 09, 2024October 26, 2024 3:15pm Hyperlipidemia chronic October 3:15pm Tobacco abuse chronic October 3:15pm Obstructive sleep apnea acute M 2024 8:38am Smoking greater than 30 pack years acute January 02, 2025 8:38am [facility] Work Phone: 1(625) 675-470612-17-2024 Evaluation note* Diagnosis Onset Date Resolution Status Admit Date History of coronary artery stent placement October 09, 2024 chronic September 4:35pm Acute ST elevation myocardial infarction (STEMI) of anterolateral wall October 09, 2024 resolved September 4:35pm Hypersomnolence acute October 262024 3:15pm History of coronary artery stent placement October 09, 2024October 26, 2024 3:15pm Hyperlipidemia october 3:15pm Tobacco abuse october 3:15pm Obstructive sleep apnea acute M 2024 8:38am Smoking greater than 30 pack years acute January 02, 2025 8:38am Hematuria acute January 23 8:52am History of coronary artery stent placement October 09, 2024 chronic January 23, 2 025 8:52am Hyperlipidemia chronic January 23, 2025 8:52am Tobacco abuse chronic January 23, 2025 8:52am [facility] Work Phone: 1(402) 152-225612-17-2024 Evaluation note* Diagnosis Onset Date Resolution Status Admit Date History of coronary artery stent placement October 09, 2024 chronic September 4:35pm Acute ST elevation myocardial infarction (STEMI) of anterolateral wall October 09, 2024 resolved September 4:35pm Hypersomnolence acute October 262024 3:15pm History of coronary artery stent placement October 09, 2024October 26, 2024 3:15pm Hyperlipidemia chronic October 3:15pm Tobacco abuse chronic October 3:15pm Obstructive sleep apnea acute 2024 8:38am Smoking greater than 30 pack years acute January 02, 2025 8:38am Hematuria acute January 23 8:52am History of coronary artery stent placement October 09, 2024 chronic January 23, 025 8:52am Hyperlipidemia chronic January 23, 2025 8:52am Tobacco abuse chronic January 23, 2025 8:52am Hematuria acute February 04 1:00pm Non-ST elevation NV (NSTEMI) acute February 04, 2025 1:00pm History of coronary artery stent placement October 09, 2024 chronic February 04, 2025 1:00pm Hyperlipidemia chronic January 1:00pm [facility] Work Phone: 1([phone]) 494-790709-14-2021 Note. MICRO - Microbiology PROCEDURE: Urine Culture [*1] SOURCE: Urine, Clean Catch BODY SITE: COLLECTED DATE/TIME: 07/04/2021 14:10 EDT RECEIVED DATE/TIME: 07/05/2021 22:55 EDT START DATE/TIME: 07/05/2021 22:55 EDT FREE TEXT SOURCE: FINAL REPORTS Final Report [] Verified Date/Time/Personnel: 07/07/2021 07:33 EDT 10,000 - 50,000 cfu/ml Multiple bacterial morphotypes present. Probable Contamination. Suggest recollection if clinically indicated. PRELIMINARY REPORTS Preliminary Report [] Verified Date/Time/Personnel: 07/06/2021 11:35 EDT Culture results pending. Performing Locations *1: This test was performed at: [facility], [address] [place] [address], [id number]- , [facility] ([place])Comment on above:Performed By: #### CUR #### [address] [id number] Evaluation + Plan note Future Scheduled Tests Laboratory* Urine Culture 07/04/21 Radiology* US Abdomen Complete 12/04/21 [facility] Consult note Author Deondre Leavitt [facility] Note Date/Time February 04, 2025 1:2 6pm [facility] Medical Records Department [address] [place] [address] Consultation - Cardiology 02/04/25 1311 MR#: [id number] Acct: [id number] Name: MILY LONG Rep #:[id number] : 1960 64 From: Deondre Leavitt MD PCP: Dr. Florin Bailey, DO Status:ADM [place] Location: [address] Assessment & Plan Assessment/Plan (1) Non-ST elevation NV (NSTEMI): PLAN: Patient presented with chest discomfort that has been episodic over the last 36 to 48 hours. EKG shows some subtle ST segment depressions anteriorly troponins elevated at 300. The patient has a known history of coronary disease status post stenting of the LAD with jailing of the ostium of the small diagonalbranch September 2024. Given these findings and symptoms occurring at rest even though they are not identical to her previous angina I would recommend that she proceed with left heart catheterization urgently. The procedure risk/benefit and alternatives were explained to the patient she voiced understanding and agrees to proceed. Dr. Galindo will perform the catheterization. (2) Hematuria: QUALIFIERS: Hematuria type: unspecified type Qualified Code(s): R31.9 - Hematuria, unspecified PLAN: Patient reports she is scheduled to have bladder biopsy done this to some hematuria. She has had multiple recurrent UTIs. Hemoglobin is stable at 12.3 and renal function is normal. (3) Hyperlipidemia: QUALIFIERS: Hyperlipidemia type: mixed hyperlipidemia Qualified Code(s): E78.2 - Mixed hyperlipidemia PLAN: Patient's lipids were reevaluated December 2024. Total cholesterol was 141 LDL was 74 triglycerides 117 on atorvastatin 40 mg daily. Patient has continuedon the atorvastatin 1 option may be to switch her to rosuvastatin 40 mg daily when she is reevaluated in the outpatient setting. (4) History of coronary artery stent placement: PLAN: Patient status post 2.75 mm stent in the proximal LAD September 2024 by . The diagonal was predilated prior to that but the stent is across the ostium of the diagonal. PLAN: Plan 1. Recommend the patient proceed with urgent left heart catheterization today. 2. Will address lipids in the outpatient setting by considering to switch to rosuvastatin 40 mg daily.. 3. Further recommendations once results of the catheterization are known. HPI Consult Data Date of Consult: 02/04/25 HPI Narrative Reason for Consultation: Recurrent chest pain with EKG changes and positive troponin HPI Narrative: MILY LONG, is a 64 F who presents with a history of chest discomfort thatawoke her from sleep night before last. She had a second episode yesterday these were relatively short-lived. She then drank coffee this morning and had recurrence of the symptoms although they were not identical to what she presented with with her STEMI in September 2024 they were similar. The patient came to the emergency room where her first troponin was 300 and her EKG showed nonspecific ST segment depressions in the anterior lateral leads that were different from her previous EKG. Currently the patient is on heparin IV and responded to nitroglycerin sublingual. She is pain-free at this point in time. She does have a history ofhematuria and had a cystoscope which was remarkable for some abnormalities in her bladder. She was scheduled to have bladder biopsy done this coming . She is maintaining her Brilinta and aspirin and has not missed any doses. The patient's LV function EF was 50% prior to her last discharge from the hospital. She had stage I diastolic dysfunction and severely hypokinetic mid anterior wall and apex. There was no significant valvular abnormality. Her lipids showed a total cholesterol of 226 HDL 37 LDL 116 triglycerides 146. I amnot certain of the medical dose she was on at the time those lipids were done inDece2023. Currently she is on atorvastatin 40 mg daily. [facility] Medical History UTI (urinary tract infection) Atherosclerosis of coronary artery of [place] heart without angina pectoris Myocardial infarct Home Medications ?Medication ?Instructions ?Recorded ?Last Taken ?Type aspirin 81 mg tablet,delayed 81 mg PO DAILY@0800 90 da ys #90 10/11/24 Unknown Rx release tabs atorvastatin 40 mg tablet 40 mg PO QHS 90 days #90 tab s 10/26/24 Unknown Rx lisinopril 2.5 mg tablet 2.5 mg PO DAILY 90 days #90 tabs 10/26/24 Unknown Rx metoprolol succinate 25 mg 25 mg PO DAILY 90 days #90 tabs 10/26/24 Unknown Rx tablet,extended release 24 hr (Toprol XL) ticagrelor 90 mg tablet (Brilinta) 90 mg PO BID 90 day s #180 tabs 10/26/24 Unknown Rx Allergy/AdvReac Type Severity Reaction Status Date / Time Penicillins Allergy Hives Verified 02/04/25 10:29 Sulfa (Sulfonamide AdvReac Diarrhea Verified 02/04/25 10:29 Antibiotics) Family History Father CAD (coronary artery disease) CABG age 68; CVA (cerebral vascular accident) Myocardial infarction Mother Cancer Cervical, Melanoma, Colon Surgical History History of carpal tunnel surgery of left wrist History of coronary artery stent placement (10/09/24) Social History household members: spouse housing: house Smoking Status: Current every day smoker tobacco type: cigarettes second hand exposure: No ROS Constitutional Constitutional: Reports systems reviewed and no addt'l complaints, except as documented Eyes Eyes: Reports systems reviewed and no addt'l complaints, except as documented ENT HEENT: Reports systems reviewed and no addt'l complaints, except as documented Cardiovascular Cardiovascular: Reports as per HPI Respiratory/Chest Respiratory/Chest: Reports as per HPI Gastrointestinal Gastrointestinal: Reports systems reviewed and no addt'l complaints, except as documented Genitourinary Genitourinary: Reports as per HPI Musculoskeletal Musculoskeletal: Reports systems reviewed and no addt'l complaints, except as documented Integumentary Integumentary: Reports systems reviewed and no addt'l complaints, except as documented Neurologic Neurologic: Reports systems reviewed and no addt'l complaints, except as documented Endocrine Endocrinology: Reports systems reviewed and no addt'l complaints, except as documented Hematologic/Lymphatic Hematologic/Lymphatic: Reports as per HPI Allergic/Immunologic Allergic/Immunologic: Reports systems reviewed and no addt'l complaints, except as documented Physical Exam Const alert and oriented x3 HEENT normocephalic Eyes EOMs intact bilaterally Neck supple, no JVD and no carotid bruits Chest inspection of chest normal Resp normal respiratory effort and clear to auscultation bilaterally Cardio regular rate, regular rhythm, S1 normal heart sound and S2 normal heart sound Heart Sounds: S1 normal, S2 normal and murmur systolic II/ soft right sternal border; Negative for click or gallop Peripheral Pulses: radial pulses present right 2+ GI soft to palpation Extremity no pedal edema Psych mental status grossly normal Risk Stratification Risk Stratification Applicable: Yes Age >/= 65: Yes >/= 3 CAD Risk Factors (HTN, HLD, DM, family hx of CAD, or current smoker): Yes Aspirin Use in the Past 7 Days: Yes Severe Angina (>/= episodes in 24 hours): Yes EKG ST Changes >/= 0.5mm: Yes Positive Cardiac Marker: Yes MYESHA Risk Stratification Score: 6 MYESHA % Risk: 41% Risk Charges/Coding Visit Charges Inpatient E&M: 13110 Init Hosp L3 Objective Data Vital Signs: Vital Signs Temp Pulse Resp BP Pulse Ox O2 Del Method 98 F 82 13 101/84 H 98 Room Air 02/04/25 12:59 02/04/25 13:00 02/04/25 12:59 02/04/25 13:00 02/04/25 13:00 02/04/25 11:37 Oxygen Delivery Method Room Air Weight: 162 lb 4.163 oz Body Mass Index (BMI) 25.4 Lab / Micro Data Attestation: I reviewed the patient's lab results. 02/04/25 11:08 02/04/25 11:08 Labs: Laboratory Results - last 24 hr 02/04/25 11:08: WBC 10.7, RBC 3.87 L, Hgb 12.3, Hct 37.0, MCV 95.6, MCH 31.8, MCHC 33.2, RDW Std Deviation 49.9 H, RDW Coeff of Gerber 14.2, Plt Count 223, MPV 9.9, Immature Gran % (Auto) 0.500, Neut % (Auto) 77.1 H, Lymph % (Auto) 15.1 L, Daggett % (Auto) 4.9, Eos % (Auto) 1.5, Baso % (Auto) 0.9, Absolute Neuts (auto) 8.2 H, Absolute Lymphs (auto) 1.61, Nucleated RBC % 0, Sodium 140, Potassium 4.1, Chloride 107, Carbon Dioxide 21.0, Anion Gap 12, BUN 19, Creatinine 1.01, Estim Creat Clear Calc 53.28, Est GFR (MDRD) Non-Af 61, BUN/Creatinine Ratio 18.6, Glucose 105 H, Calcium 9.2, Troponin T High Sens 307 H* Rhythm Strip Rhythm Strip: Sinus Rhythm Rate: 70 Ectopy: None Cardiology Labs/Tests 02/04/25 11:08: WBC 10.7, RBC 3.87 L, Hgb 12.3, Hct 37.0, MCV 95.6, MCH 31.8, MCHC 33.2, Plt Count 223, MPV 9.9, Immature Gran % (Auto) 0.500, Neut % (Auto) 77.1 H, Lymph % (Auto) 15.1 L, Daggett % (Auto) 4.9, Eos % (Auto) 1.5, Baso % (Auto) 0.9, Absolute Neuts (auto) 8.2 H, Nucleated RBC % 0, Sodium 140, Potassium 4.1, Chloride 107, Carbon Dioxide 21.0, Anion Gap 12, BUN 19, Creatinine 1.01, Est GFR (MDRD) Non-Af 61, BUN/Creatinine Ratio 18.6, Glucose 105 H, Calcium 9.2 Rhythm: EKG: ECHO: Stress Test: Cardiac Cath: PCI: CT Surgery: Holter monitor: EPS: PPM: CXR: Chest CT Scan: Radiography Diagnostic Testing: Radiology Impression Chest X-Ray 02/04/25 11:10 IMPRESSION: No acute cardio pulmonary process is identified radiographically. Arteriosclerotic vascular disease of the aorta is noted. A levoscoliosis of the thoracic spine is seen. Reading Location: [id number] 02/04/25 1326 <Electronically signed by Deondre Leavitt MD> Cosigner Signature (if applicable): CC: Dr. Florin Bailey, DO~ Signed [facility] Work Phone: Consult note Author Ivan Friend [facility] Note Date/Time March 04, 2025 5:02p m [facility] Medical Records Department [address] [place] [id number] Consultation - GI 03/04/25 1644 MR#: [id number] Acct: [id number] Name: MILY LONG Rep #:[id number] : 1960 64 From: Ivan Friend DO PCP: Dr. Florin Bailey, DO Status:ADM IN Location: [place] [address] HPI Consult Data Date of Consult: 03/04/25 HPI Narrative Reason for Consultation: Anemia HPI Narrative: MILY LONG, is a 64-year-old female with history of recent GI bleeding as well as STEMI (now on Brilinta and aspirin) presenting with palpitations and generalized malaise as well as shortness of breath. She was originally evaluated at [facility] in September [address] elevated myocardial infarction of the anterolateral wall. She proceeded to get a drug-eluting stent to LAD and PTCA . Heart catheterization showed left main with mild luminal irregularities, proximal LAD with 80% stenosis, mid LAD with 40% stenosis, diagonal 1 with 99% stenosis, LCx with mild diffuse disease, ostial RCA with 30-40% stenosis, and proximal RCA with mild luminal irregularities. Echocardiogram showed ejection fraction of 50%, stage I diastolic dysfunction, and wall motion abnormality with severely hypokinetic mid anterior wall and apex. No significant valvular abnormality was noted. Lipid panel on 10/10/2024showed total cholesterol: 226, HDL: 37, LDL: 160, and triglycerides: 146. She presented to the emergency room via squad on 02/04/2025 with complaints of chest pain. She described this as a burning sensation to her mid chest. Her EKG demonstrated ST depressions. Patient underwent a cardiac catheterization which demonstrated 99% stenosis with thrombus in the mid circumflex. She underwent a successful drug-eluting stent to her mid circumflex and PTCA alone to the D1. She then presented back to the emergency room on 02/06/2025 with palpitations. She came back to the emergency room yesterday with the chief complaint she notestonight around 130 she woke up and felt like she could not breathe. She states that she has been feeling short of breath with exertion. She went to drink somewater this morning and was nauseous but denies any vomiting. She states she hasbeen feeling lightheaded. -Colonoscopy on 02/21/2025 which showed a 5 mm polyp at the splenic flexure which was removed using jumbo cold forceps as well as all single large localized angiodysplastic lesion with bleeding in the descending colon. 1 hemostatic clipwas placed. On 02/19/2025 patient had an EGD which showed esophagitis with no bleeding and a medium size hiatal hernia. No other acute process. Patient was admitted 02/18 through 02/22 for GI bleeding. She had recently been started on dual antiplatelet therapy because of the stents that was placed secondary to coronary artery disease. Patient went down to 7.8. Did receive iron transfusion. [facility] Medical History GERD (gastroesophageal reflux disease) Smoker CPAP (continuous positive airway pressure) dependence Non-ST elevation NV (NSTEMI) Hematuria UTI (urinary tract infection) Hyperlipidemia Atherosclerosis of coronary artery of [place] heart without angina pectoris Myocardial infarct Home Medications ?Medication ?Instructions ?Recorded ?Last Taken ?Type aspirin 81 mg tablet,delayed 81 mg PO DAILY@0800 [facility] 10/11/24 02/18/25 Rx release 90 days #90 tabs atorvastatin 40 mg tablet 40 mg PO QHS cholesterol 90 days 10/26/24 02/17/25 Rx #90 tabs lisinopril 2.5 mg tablet 2.5 mg PO DAILY blood pressu re 90 10/26/24 02/04/25 Rx days #90 tabs metoprolol succinate 25 mg 25 mg PO DAILY heart 90 day s #90 10/26/24 02/21/25 Rx tablet,extended release 24 hr tabs (Toprol XL) ticagrelor 90 mg tablet (Brilinta) 90 mg PO BID blood thinner 90 days 10/26/24 02/18/25 Rx #180 tabs albuterol sulfate 90 mcg/actuation 2 puff inhalation Q 4H PRN PRN 02/06/25 Unknown Rx aerosol inhaler (Ventolin HFA) Wheezing ##1 ascorbate calcium (vitamin C) 500 1 g PO DAILY vitamin 02/06/25 02/05/25 History mg tablet cranberry [id number] 2 tab PO DAILY supplement 02/05/25 History coagulans 250 mg-30 mg-15 mg tablet (Azo Cranberry Plus Probiotic) ondansetron 4 mg disintegrating 4 mg PO Q6H PRN PRN Na usea #15 tabs 02/06/25 02/17/25 Rx tablet nitroglycerin 0.4 mg sublingual 0.4 mg sublingual Q5-1 5M PRN chest 02/07/25 Unknown Rx tablet pain #25 tabs pantoprazole 40 mg tablet,delayed 40 mg PO DAILY reflu x #90 tabs 02/22/25 Unknown Rx release (Protonix) polysaccharide iron complex 150 mg 150 mg PO DAILY sup plement 90 days 02/22/25 Unknown Rx iron capsule (Ferrex) #90 caps omeprazole 40 mg capsule,delayed 40 mg PO DAILY reflux 03/03/25 Unknown History release Allergy/AdvReac Type Severity Reaction Status Date / Time Penicillins Allergy Hives Verified 03/03/25 02:22 Sulfa (Sulfonamide AdvReac Diarrhea Verified 03/03/25 02:22 Antibiotics) Family History Father CAD (coronary artery disease) CABG age 68; CVA (cerebral vascular accident) Myocardial infarction Mother Cancer Cervical, Melanoma, Colon Surgical History Status post cardiac surgery History of coronary artery stent placement History of carpal tunnel surgery of left wrist History of coronary artery stent placement (02/04/25) Social History household members: spouse housing: house Smoking Status: Current every day smoker tobacco type: cigarettes second hand exposure: No ROS Constitutional Constitutional: Denies fatigue, fever(s), poor appetite, weight gain or weight loss Gastrointestinal Gastrointestinal: Denies belching, bloating, change in bowel habits, change in stool character, chewing difficulty, coffee ground emesis, constipation, cramping, diarrhea, dyspepsia, dysphagia, early satiety, excessive flatus, fecalincontinence, heartburn, hematemesis, hematochezia, hemorrhoids, loose stools, melena, nausea, odynophagia, rectal bleeding, tenesmus, vomiting or weight changes Physical Exam Const alert, oriented x3, no apparent distress and healthy appearing General Appearance: cooperative GI normal to inspection, nondistended, normoactive bowel sounds, soft to palpation,non-tender and non-distended Percussion: normal to percussion Rectal Exam: deferred Lab / Micro Data 03/04/25 09:45 03/04/25 02:58 Labs: Laboratory Results - last 24 hr 03/03/25 02:35: Crossmatch See Detail 03/03/25 19:55: Hgb 8.4 L, Hct 27.0 L 03/04/25 02:58: WBC 9.8, RBC 2.45 L, Hgb 7.6 L, Hct 24.4 L, MCV 99.6 H D, MCH 31.0, MCHC 31.1 L, RDW Std Deviation 80.7 H, RDW Coeff of Gerber 22.7 H, Plt Count 154, MPV 10.0, Immature Gran % (Auto) 0.500, Neut % (Auto) 78.8 H, Lymph % (Auto) 13.0 L, Daggett % (Auto) 4.7, Eos % (Auto) 2.2, Baso % (Auto) 0.8, Absolute Neuts (auto) 7.7, Absolute Lymphs (auto) 1.27, Nucleated RBC % 0, Differential Comment SCANNED, Platelet Estimate ADEQUATE, Anisocytosis 3+, Ovalocytes 1+, Sodium 142, Potassium 3.9, Chloride 111 H, Carbon Dioxide 19.3 L, Anion Gap 11, BUN 16, Creatinine 1.00, Estim Creat Clear Calc 53.81, Est GFR (MDRD) Non-Af 62,BUN/Creatinine Ratio 15.9, Glucose 92, Calcium 9.0, Iron 33 L, TIBC 290, Iron Saturation 11.0 L, Unsaturated IBC 257, Ferritin 92 03/04/25 09:45: Hgb 8.4 L, Hct 27.2 L, Retic Count 9.26 H, Immature Retic Fraction 30.70 H, Retic Hgb Equivalent 30.4 Rhythm Strip Rhythm Strip: Sinus Rhythm Rate: 91 Ectopy: None Assessment & Plan Assessment/Plan (1) GI bleed: (2) Anemia: (3) Acute GI bleeding: PLAN: Plan 64-year-old female with fatigue and shortness of breath with a macrocytic anemia. She was evaluated at [facility] in September [address] elevated myocardial infarction of the anterolateral wall. She proceeded with drug-eluting stent to LAD and PTCA of the proximal diagonal. Heart catheterization showed left main with mild luminal irregularities, proximal LAD with 80% stenosis, mid LAD with 40% stenosis, diagonal 1 with 99% stenosis, LCx with mild diffuse disease, ostial RCA with 30-40% stenosis, and proximal RCA with mild luminal irregularities. Echocardiogram showed ejection fraction of 50%, stage I diastolic dysfunction, and wall motion abnormality withseverely hypokinetic mid anterior wall and apex. She presented with: Acute blood loss anemia secondary to a lower GI bleed ? Colonoscopy on 02/21/2025 which showed a 5 mm polyp at the splenic flexure whichwas removed using jumbo cold forceps as well as all single large localized angiodysplastic lesion with bleeding in the descending colon. 1 hemostatic clipwas placed. On 02/19/2025 patient had an EGD which showed esophagitis with no bleeding and a medium size hiatal hernia. No other acute process. Patient was admitted 02/18 through 02/22 for GI bleeding. She had recently been started on dual antiplatelet therapy because of the stents that was placed secondary to coronary artery disease. Patient went down to 7.8. - Her hemoglobin will was 7.6 and currently up to 8.4. Her MCV is 99.6 with a platelet count of 154. That is not consistent with a GI bleed. Her BUN was 16 and her creatinine was 1. Her ferritin is 92, iron saturation of 11, TIBC of 290 and iron is 33. I do not think she had a recurrent GI bleed. - I think that she would benefit from a capsule endoscopy. I will give her another iron transfusion. Charges/Coding Visit Charges Inpatient E&M: 20311 Init Hosp 03/04/25 1702 <Electronically signed by Ivan Cotto DO> Cosigner Signature (if applicable): CC: Dr. Florin Bailey DO~ Signed [facility] Work Phone: Discharge summary Author Oralndo Abdi [facility] Note Date/Time February 04, 2025 1:0 4pm [facility] Medical Records Department [address] [place] [address] Emergency Department Summary 02/04/25 MR#: [id number] Acct: [id number] Name: MILY LONG Rep #:[id number] : 1960 64 From: Orlando Abdi MD PCP: Dr. Florin Bailey, DO Status:REG ER Location: ED HPI History of Present Illness Chief Complaint: Chest Pain Informant: patient and EMS Narrative Narrative: 64-year-old female has been having chest discomfort for 30-34 hours, woke her upin the middle of the night night before last. She states it was off and on all day yesterday and then this morning she woke up and it was gone, but she drinks coffee and suddenly it occurred again. It feels like burning, indigestion mid chest no radiation, but she also has a pain that she cannot describe otherwise that is in the same area. She states she was going to drive her cell to the ER but then the pain seemed to get worse while she was driving she turned around and went home and called EMS. She took some aspirin prior to coming here, she is on that and Brilinta since getting a stent in September, she states she had different symptoms with that. EMS gave her nitroglycerin and it helped a lot ofher symptoms although she was still belching, now some of it is coming back. She denies any other symptoms. No diaphoresis, nausea, vomiting, palpitations, lightheadedness, syncope or near syncope, or radiation to the jaw, neck, back, arms. [facility] Medical History UTI (urinary tract infection) Atherosclerosis of coronary artery of [place] heart without angina pectoris Myocardial infarct Home Medications ?Medication ?Instructions ?Recorded ?Last Taken ?Type aspirin 81 mg tablet,delayed 81 mg PO DAILY@0800 90 da ys #90 10/11/24 Unknown Rx release tabs atorvastatin 40 mg tablet 40 mg PO QHS 90 days #90 tab s 10/26/24 Unknown Rx lisinopril 2.5 mg tablet 2.5 mg PO DAILY 90 days #90 tabs 10/26/24 Unknown Rx metoprolol succinate 25 mg 25 mg PO DAILY 90 days #90 tabs 10/26/24 Unknown Rx tablet,extended release 24 hr (Toprol XL) ticagrelor 90 mg tablet (Brilinta) 90 mg PO BID 90 day s #180 tabs 10/26/24 Unknown Rx Allergy/AdvReac Type Severity Reaction Status Date / Time Penicillins Allergy Hives Verified 02/04/25 10:29 Sulfa (Sulfonamide AdvReac Diarrhea Verified 02/04/25 10:29 Antibiotics) Family History Father CAD (coronary artery disease) CABG age 68; CVA (cerebral vascular accident) Myocardial infarction Mother Cancer Cervical, Melanoma, Colon Surgical History History of carpal tunnel surgery of left wrist History of coronary artery stent placement (10/09/24) Social History (Updated 02/04/25 @ 11:37 by Bonnie Pablo) household members: spouse housing: house Smoking Status: Former smoker second hand exposure: No ROS ROS ED Constitutional Constitutional ED: Denies chills or fever(s) Eyes Eyes: Denies change in vision or diplopia ENT ENT ED: Denies rhinorrhea or sore throat Cardiovascular Cardiovascular: Reports as per HPI and chest pain; Denies palpitations Respiratory/Chest Respiratory/Chest: Denies cough or dyspnea Gastrointestinal Gastrointestinal: Denies abdominal pain, diarrhea, nausea or vomiting Genitourinary Genitourinary ED: Denies dysuria or hematuria Musculoskeletal Musculoskeletal: Denies back pain or neck pain Integumentary Denies abscess or rash Neurologic Neurologic: Denies headache(s), paresthesias or weakness Psychiatric Psychiatric: Denies anxiety or suicidal thoughts EXAM Physical Exam Const Vital Signs: 02/04/25 10:27 02/04/25 11:37 02/04/25 11:37 Temperature 97.6 F L Temperature Source Oral Pulse Rate 84 74 Respiratory Rate 16 18 Respiratory Effort Blood Pressure 124/70 H 104/69 Blood Pressure Mean 88 80 Pulse Ox 98 100 98 Oxygen Delivery Method Room Air Room Air 02/04/25 11:37 02/04/25 12:00 Temperature Temperature Source Pulse Rate 77 Respiratory Rate 13 Respiratory Effort Normal Non-Labored Blood Pressure 95/63 Blood Pressure Mean 73 Pulse Ox 98 Oxygen Delivery Method Positive well nourished and well developed General Appearance ED: well developed and NAD HEENT Reports moist mucous membranes normocephalic and atraumatic Eyes PERRL and EOMs intact bilaterally Neck full ROM and supple Resp normal respiratory effort and clear to auscultation bilaterally Cardio regular rate, regular rhythm and no murmurs GI non-tender and non-distended Auscultation: normoactive bowel sounds Palpation: soft Back/Spine no CVA tenderness General Back: other FROM Extremity normal to inspection General Extremety ED: Negative for edema, pulses abnormal or tenderness General Extremity: Negative for edema or pulses abnormal Neuro oriented x3, CN's II-XII intact bilaterally and no sensory deficits noted Sensorium / Orientation: awake and alert Motor Exam: strength 5/5 throughout Skin no rashes or lesions noted and no wounds Heart Score History: Moderately Suspicious ECG: Nonspecific Repolarization Age: >/= 65 years Risk Factors: >/= 3 Risk Factors or History of CAD Score: 6 MDM MDM MDM Narrative Medical decision making narrative: Patient's EKG appears to show some ST depressions, and interestingly a small/shallow ST elevation all in the lateral lead not reciprocal. In the meantime tried a GI cocktail, since the symptoms suggest GI etiology. On reevaluation, her discomfort is completely gone. Her troponin is elevated, suggesting an NSTEMI. I discussed with Dr. Leavitt with cardiology; he agrees, stating in a look like there were some lead reversal reversing 1 and aVL, we repeated the EKG, paying special attention not to reverse these leads, and thereis no ST elevation on the repeat EKG, but she does have some persistent precordial lateral depressions. This is in context of her being in pain-Free. Patient has been n.p.o. except for a small amount of coffee this morning, she isgoing to the [facility] [facility] at some point today per cardiology, and I discussed with hospitalist for admission to PCU. We started heparin in the ER. Lab Data Attestation: I reviewed the patient's lab results. Labs: Laboratory Results - last 24 hr 02/04/25 11:08 WBC 10.7 RBC 3.87 L Hgb 12.3 Hct 37.0 MCV 95.6 MCH 31.8 MCHC 33.2 RDW Std Deviation 49.9 H RDW Coeff of Gerber 14.2 Plt Count 223 MPV 9.9 Immature Gran % (Auto) 0.500 Neut % (Auto) 77.1 H Lymph % (Auto) 15.1 L Daggett % (Auto) 4.9 Eos % (Auto) 1.5 Baso % (Auto) 0.9 Absolute Neuts (auto) 8.2 H Absolute Lymphs (auto) 1.61 Nucleated RBC % 0 Sodium 140 Potassium 4.1 Chloride 107 Carbon Dioxide 21.0 Anion Gap 12 BUN 19 Creatinine 1.01 Estim Creat Clear Calc 53.28 Est GFR (MDRD) Non-Af 61 BUN/Creatinine Ratio 18.6 Glucose 105 H Calcium 9.2 Troponin T High Sens 307 H* Radiography Diagnostic Testing: Clinical Impression(s) from Imaging Studies Chest X-Ray 02/04/25 11:10 IMPRESSION: No acute cardio pulmonary process is identified radiographically. Arteriosclerotic vascular disease of the aorta is noted. A levoscoliosis of the thoracic spine is seen. Reading Location: [facility] Rhythm Strip Rhythm Strip: Sinus Rhythm Rate: 73 Ectopy: None EKG Initial EKG: Attestation: I personally reviewed and interpreted this EKG as follows: Interpretation: Sinus Rhythm, No Acute Injury Pattern and S-T Depression (V3-6, 1-2mm; 0.5mm CJ lead I only) Prior EKG tracings: available for review (12/11/24) Prior: Changed Follow-up EKG: Attestation: I personally reviewed and interpreted this EKG as follows: Interpretation: Sinus Rhythm and S-T Depression (similar precordial sept-lat) Prior: Unchanged Management Discussion w/another healthcare provider: Hospitalist and Lead Programmer (cardiologydr. leavitt) Discharge Plan Triage Chief Complaint: Chest Pain ED Provider: Orlando Abdi Dx/Rx/DC Orders Clinical Impression: Non-ST elevation NV (NSTEMI) Prescriptions: No Action lisinopril 2.5 mg tablet 2.5 mg PO DAILY 90 Days Qty: 90 3RF metoprolol succinate [Toprol XL] 25 mg tablet extended release 24 hr 25 mg PO DAILY 90 Days Qty: 90 3RF Brilinta 90 mg tablet 90 mg PO BID 90 Days Qty: 180 3RF atorvastatin 40 mg tablet 40 mg PO QHS 90 Days Qty: 90 3RF aspirin 81 mg Tablet,Delayed Release (Dr/Ec) 81 mg PO DAILY@0800 90 Days Qty: 90 3RF Primary Care Provider: Florin Bailey Referrals: Florin Bailey DO [Primary Care Provider] - Print Language: Bangladeshi Disposition Disposition: Acute Care Hospital [facility] What to do if you have Problems For any increased pain, shortness of breath, bleeding, nausea or vomiting, chestpain, or any unexpected problems, contact your Primary Care Provider. Call [facility] ([phone]) or report to the closest Emergency Room. Call 911 if necessary. 02/04/25 1304 <Electronically signed by Orlando Abdi MD> Cosigner Signature (if applicable): CC: Dr. Florin Bailey, DO ~ Signed [facility] Work Phone: Discharge summary Author Orlando Abdi [facility] Note Date/Time February 28, 2025 5:18am [facility] Medical Records Department [address] [place] [address] Emergency Department Summary 02/28/25 MR#: [id number] Acct: [id number] Name: MILY LONG Rep #:[id number] : 1960 64 From: Orlando Abdi MD PCP: Dr. Florin Bailey, Status:REG ER Location: ED HPI History of Present Illness Chief Complaint: Palpitations Informant: patient and spouse/S.O. Narrative Narrative: 64-year-old female states she woke up in the middle of the night short of breathand her heart racing, both at the same time. No chest discomfort. [place] lightheaded but did not lose consciousness. She felt a little sweaty. She states it lasted 15 or 20 minutes and then gradually resolved and now she feels better except for feeling tired and weak. She had a stent placed at the end of last year and then another 1 placed a month ago. She continues to smoke. Denies any recent illness. [facility] Medical History GERD (gastroesophageal reflux disease) Smoker CPAP (continuous positive airway pressure) dependence Non-ST elevation NV (NSTEMI) Hematuria UTI (urinary tract infection) Hyperlipidemia Atherosclerosis of coronary artery of [place] heart without angina pectoris Myocardial infarct Home Medications ?Medication ?Instructions ?Recorded ?Last Taken ?Type aspirin 81 mg tablet,delayed 81 mg PO DAILY@0800 heart health 10/11/24 02/18/25 Rx release 90 days #90 tabs atorvastatin 40 mg tablet 40 mg PO QHS cholesterol 90 days 10/26/24 02/17/25 Rx #90 tabs lisinopril 2.5 mg tablet 2.5 mg PO DAILY blood pressu re 90 10/26/24 02/04/25 Rx days #90 tabs metoprolol succinate 25 mg 25 mg PO DAILY heart 90 day s #90 10/26/24 02/21/25 Rx tablet,extended release 24 hr tabs (Toprol XL) ticagrelor 90 mg tablet (Brilinta) 90 mg PO BID blood thinner 90 days 10/26/24 02/18/25 Rx #180 tabs albuterol sulfate 90 mcg/actuation 2 puff inhalation Q 4H PRN PRN 02/06/25 Unknown Rx aerosol inhaler (Ventolin HFA) Wheezing ##1 ascorbate calcium (vitamin C) 500 1 g PO DAILY 5 02/05/25 History mg tablet cranberry [id number] 2 tab PO DAILY supplement 02/05/25 History coagulans 250 mg-30 mg-15 mg tablet (Azo Cranberry Plus Probiotic) ondansetron 4 mg disintegrating 4 mg PO Q6H PRN PRN Na usea #15 tabs 02/06/25 02/17/25 Rx tablet nitroglycerin 0.4 mg sublingual 0.4 mg sublingual Q5-1 5M PRN chest 02/07/25 Unknown Rx tablet pain #25 tabs pantoprazole 40 mg tablet,delayed 40 mg PO DAILY #90 t abs 02/22/25 Unknown Rx release (Protonix) polysaccharide iron complex 150 mg 150 mg PO DAILY 90 days #90 caps 02/22/25 Unknown Rx iron capsule (Ferrex) Allergy/AdvReac Type Severity Reaction Status Date / Time Penicillins Allergy Hives Verified 02/28/25 02:07 Sulfa (Sulfonamide AdvReac Diarrhea Verified 02/28/25 02:07 Antibiotics) Family History Father CAD (coronary artery disease) CABG age 68; CVA (cerebral vascular accident) Myocardial infarction Mother Cancer Cervical, Melanoma, Colon Surgical History Status post cardiac surgery History of coronary artery stent placement History of carpal tunnel surgery of left wrist History of coronary artery stent placement (02/04/25) Social History household members: spouse housing: house Smoking Status: Current every day smoker tobacco type: cigarettes second hand exposure: No ROS ROS ED Constitutional Constitutional ED: Reports fatigue and sweats; Denies chills or fever(s) Eyes Eyes: Denies change in vision or diplopia ENT ENT ED: Denies rhinorrhea or sore throat Cardiovascular Cardiovascular: Reports lightheadedness and palpitations; Denies chest pain, radiating jaw, neck or arm pain or syncope Respiratory/Chest Respiratory/Chest: Reports dyspnea; Denies cough Gastrointestinal Gastrointestinal: Denies abdominal pain, diarrhea, nausea or vomiting Genitourinary Genitourinary ED: Denies dysuria or hematuria Musculoskeletal Musculoskeletal: Denies back pain or neck pain Integumentary Denies abscess or rash Neurologic Neurologic: Denies headache(s), paresthesias or weakness Psychiatric Psychiatric: Denies anxiety or suicidal thoughts EXAM Physical Exam Const Vital Signs: 02/28/25 02:08 02/28/25 02:08 02/28/25 02:27 Temperature 97.6 F L Temperature Source Oral Pulse Rate 102 H Respiratory Rate 25 H Respiratory Effort Normal Blood Pressure 147/65 H Blood Pressure Mean 92 Pulse Ox 99 97 Oxygen Delivery Method Room Air Room Air 02/28/25 03:07 02/28/25 04:00 02/28/25 05:00 Temperature Temperature Source Pulse Rate 80 92 85 Respiratory Rate 14 16 20 H Respiratory Effort Blood Pressure 116/51 L 117/62 105/54 L Blood Pressure Mean 72 80 71 Pulse Ox 97 98 96 Oxygen Delivery Method Room Air Room Air Room Air Positive well nourished and well developed General Appearance ED: well developed and NAD HEENT Reports moist mucous membranes normocephalic and atraumatic Eyes PERRL and EOMs intact bilaterally Neck full ROM and supple Resp normal respiratory effort and clear to auscultation bilaterally Cardio regular rate, regular rhythm and no murmurs GI non-tender and non-distended Auscultation: normoactive bowel sounds Palpation: soft Back/Spine no CVA tenderness General Back: other FROM Extremity normal to inspection General Extremety ED: Negative for edema, pulses abnormal or tenderness General Extremity: Negative for edema or pulses abnormal Neuro oriented x3, CN's II-XII intact bilaterally and no sensory deficits noted Sensorium / Orientation: awake and alert Motor Exam: strength 5/5 throughout Skin no rashes or lesions noted and no wounds MDM MDM MDM Narrative Medical decision making narrative: On initial evaluation patient is no longer symptomatic, her EKG is normal. Her initial troponin is just barely out of the normal range at 26, the rest of her labs are only remarkable for anemia at 7.4. She is not having any signs of blood loss and I do not think she needs an emergent transfusion but this will need to be watched carefully as I discussed with her. Chest x-ray 1 view on my interpretation is unremarkable/normal. While she was being observed and we werewaiting to draw the second troponin, she had another relatively short period of the same symptoms again while she was on the monitor. There were no telemetry events or ectopy or dysrhythmias or tachycardia. She was in the 80s the whole time and went back and reviewed the telemetry data. Patient was talking to the ultrasound technol telling her that she had the symptoms while she was prepping to do an EKG and while she was on the monitor she was sinus rhythm in the 80s. Her second troponin came back at 27 for a delta of 1, this is negligible and she is stable for discharge and feeling better with no recurrent symptoms despite walking to and from the bathroom on her own, and she states she is following up later today for an already-scheduled Holter monitor from cardiology which I advised her to continue to follow-up with. Lab Data Attestation: I reviewed the patient's lab results. Labs: Laboratory Results - last 24 hr 02/28/25 02/28/25 02:15 04:24 WBC 11.1 H RBC 2.29 L Hgb 7.4 L Hct 23.4 L MCV 102.2 H MCH 32.3 H MCHC 31.6 L RDW Std Deviation 64.8 H RDW Coeff of Gerber 18.0 H Plt Count 199 MPV 10.2 Immature Gran % (Auto) 0.700 Neut % (Auto) 60.8 Lymph % (Auto) 28.0 Daggett % (Auto) 6.2 Eos % (Auto) 3.6 Baso % (Auto) 0.7 Absolute Neuts (auto) 6.7 Absolute Lymphs (auto) 3.11 Nucleated RBC % 0 Sodium 140 Potassium 4.9 Chloride 107 Carbon Dioxide 22.6 Anion Gap 11 BUN 30 H Creatinine 1.09 Estim Creat Clear Calc 53.96 Est GFR (MDRD) Non-Af 56 L BUN/Creatinine Ratio 27.2 H Glucose 110 H Calcium 9.2 Troponin T High Sens 26 H D Troponin T Hi Sens 2 Hr 27 H Radiography Diagnostic Testing: Clinical Impression(s) from Imaging Studies Chest X-Ray 02/28/25 02:35 IMPRESSION: No evidence of acute disease. Reading Location: [facility] Rhythm Strip Rhythm Strip: Sinus Rhythm Rate: 90 (During evaluation, after EKG) Ectopy: None EKG Initial EKG: Attestation: I personally reviewed and interpreted this EKG as follows: Interpretation: No Acute Injury Pattern and Sinus Tachycardia Comments: Nml axis & intervals; nml EKG; some artifact in lat precord leads, but no repolarization abnormality Discharge Plan Triage Chief Complaint: Palpitations ED Provider: Orlando Abdi Dx/Rx/DC Orders Clinical Impression: Palpitations Instructions: ED Palpitations Prescriptions: No Action lisinopril 2.5 mg tablet 2.5 mg PO DAILY 90 Days Qty: 90 3RF Patient Comments: pt told yesterday if BP is less than 99, not to take med. pt has not taken since 02/04/25 metoprolol succinate [Toprol XL] 25 mg tablet extended release 24 hr 25 mg PO DAILY 90 Days Qty: 90 3RF Brilinta 90 mg tablet 90 mg PO BID 90 Days Qty: 180 3RF atorvastatin 40 mg tablet 40 mg PO QHS 90 Days Qty: 90 3RF nitroglycerin 0.4 mg tablet, sublingual 0.4 mg sublingual Q5-15M PRN (Reason: chest pain) Qty: 25 3RF Rx Instructions: do not exceed 3 doses per episode aspirin 81 mg Tablet,Delayed Release (Dr/Ec) 81 mg PO DAILY@0800 90 Days Qty: 90 3RF ascorbate calcium (vitamin C) 500 mg tablet 1 g PO DAILY Azo Cranberry Plus Probiotic 250-30-15 mg tablet 2 tab PO DAILY albuterol sulfate [Ventolin HFA] 90 mcg/actuation HFA aerosol inhaler 2 puff inhalation Q4H PRN PRN (Reason: Wheezing) Qty: 1 0RF Rx Instructions: with spacer ondansetron 4 mg tablet,disintegrating 4 mg PO Q6H PRN PRN (Reason: Nausea) Qty: 15 0RF polysaccharide iron complex [Ferrex 150] 150 mg iron Capsule 150 mg PO DAILY 90 Days Qty: 90 0RF pantoprazole [Protonix] 40 mg tablet,delayed release (DR/EC) 40 mg PO DAILY Qty: 90 0RF Primary Care Provider: Florin Bailey Referrals: Deondre Leavitt MD [Med Staff - Active Staff] - Keep Patrice appointment Print Language: Bangladeshi Disposition Disposition: Home, Self Care What to do if you have Problems For any increased pain, shortness of breath, bleeding, nausea or vomiting, chestpain, or any unexpected problems, contact your Primary Care Provider. Call [facility] ([phone]) or report to the closest Emergency Room. Call 911 if necessary. 02/28/25517 <Electronically signed by Orlando Abdi MD> Cosigner Signature (if applicable): CC: Dr. Florin Bailey, ~ Signed [facility] Work Phone: Discharge summary Author Swati [facility] Note Date/Time March 03, 2025 7:23a m [facility] Medical Records Department [address] [place] [address] Emergency Department Summary 03/03/25 MR#: [id number] Acct: [id number] Name: MILY LONG Rep #:[id number] : 1960 64 From: Swati Reyes PCP: Dr. Florin Bailey, Status:REG ER Location: ED HPI History of Present Illness Chief Complaint: Shortness of Breath Informant: patient Narrative Narrative: Patient is a 64-year-old female with history of recent GI bleeding as well as STEMI (now on Brilinta and aspirin) presenting with palpitations and generalizedmalaise as well as shortness of breath. She states she has been feeling good for couple days and this is after her second ER visit in the last 2 days. She notes tonight around 130 she woke up and felt like she could not breathe. She states that she has been feeling short of breath with exertion. She went to drink some water this morning and was nauseous but denies any vomiting. She states she has been feeling lightheaded. She had some mild swelling of her right leg. Denies history of DVT or PE. No she is continue to have dark stoolsbut attributes that to not being on iron. Does folic her heart is racing. Did have a recent Holter monitor and actually brought the monitor ends to return it. Has been having epigastric discomfort and indigestion. No report of any vomiting. No other complaints or concerns at this time. Chart review shows that patient had a colonoscopy on 02/21/2025 which showed a 5 mm polyp at the splenic flexure which was removed using jumbo cold forceps as well as all single large localized angiodysplastic lesion with bleeding in the descending colon. 1 hemostatic clip was placed. On 02/19/2025 patient had an EGD which showed esophagitis with no bleeding and a medium size hiatal hernia. No other acute process. Patient was admitted 02/18 through 02/22 for GI bleeding. She had recently been started on dual antiplatelet therapy because of the stents that was placed secondary to coronary artery disease. Patient went down to 7.8. Did receive iron transfusion. [facility] Medical History GERD (gastroesophageal reflux disease) Smoker CPAP (continuous positive airway pressure) dependence Non-ST elevation NV (NSTEMI) Hematuria UTI (urinary tract infection) Hyperlipidemia Atherosclerosis of coronary artery of [place] heart without angina pectoris Myocardial infarct Home Medications ?Medication ?Instructions ?Recorded ?Last Taken ?Type aspirin 81 mg tablet,delayed 81 mg PO DAILY@0800 heart [facility] 10/11/24 02/18/25 Rx release 90 days #90 tabs atorvastatin 40 mg tablet 40 mg PO QHS cholesterol 90 days 10/26/24 02/17/25 Rx #90 tabs lisinopril 2.5 mg tablet 2.5 mg PO DAILY blood pressu re 90 10/26/24 02/04/25 Rx days #90 tabs metoprolol succinate 25 mg 25 mg PO DAILY heart 90 day s #90 10/26/24 02/21/25 Rx tablet,extended release 24 hr tabs (Toprol XL) ticagrelor 90 mg tablet (Brilinta) 90 mg PO BID blood thinner 90 days 10/26/24 02/18/25 Rx #180 tabs albuterol sulfate 90 mcg/actuation 2 puff inhalation Q 4H PRN PRN 02/06/25 Unknown Rx aerosol inhaler (Ventolin HFA) Wheezing ##1 ascorbate calcium (vitamin C) 500 1 g PO DAILY 5 02/05/25 History mg tablet cranberry [id number] 2 tab PO DAILY supplement 02/05/25 History coagulans 250 mg-30 mg-15 mg tablet (Azo Cranberry Plus Probiotic) ondansetron 4 mg disintegrating 4 mg PO Q6H PRN PRN Na usea #15 tabs 02/06/25 02/17/25 Rx tablet nitroglycerin 0.4 mg sublingual 0.4 mg sublingual Q5-1 5M PRN chest 02/07/25 Unknown Rx tablet pain #25 tabs pantoprazole 40 mg tablet,delayed 40 mg PO DAILY #90 t abs 02/22/25 Unknown Rx release (Protonix) polysaccharide iron complex 150 mg 150 mg PO DAILY 90 days #90 caps 02/22/25 Unknown Rx iron capsule (Ferrex) omeprazole 40 mg capsule,delayed 40 mg PO DAILY Unknown History release Allergy/AdvReac Type Severity Reaction Status Date / Time Penicillins Allergy Hives Verified 03/03/25 02:22 Sulfa (Sulfonamide AdvReac Diarrhea Verified 03/03/25 02:22 Antibiotics) Family History Father CAD (coronary artery disease) CABG age 68; CVA (cerebral vascular accident) Myocardial infarction Mother Cancer Cervical, Melanoma, Colon Surgical History Status post cardiac surgery History of coronary artery stent placement History of carpal tunnel surgery of left wrist History of coronary artery stent placement (02/04/25) Social History household members: spouse housing: house Smoking Status: Current every day smoker tobacco type: cigarettes second hand exposure: No ROS ROS ED Constitutional Constitutional ED: Denies chills or fever(s) Eyes Eyes: Denies change in vision ENT ENT ED: Denies sore throat Cardiovascular Cardiovascular: Reports chest pain and racing heartbeat Respiratory/Chest Respiratory/Chest: Reports dyspnea and dyspnea on exertion; Denies sputum Gastrointestinal Gastrointestinal: Reports melena and nausea; Denies abdominal pain or vomiting Musculoskeletal Musculoskeletal: Denies arthralgias or myalgias Integumentary Denies rash Neurologic Neurologic: Reports weakness Hematologic/Lymphatic Hematologic/Lymphatic: Denies easy bleeding or easy bruising EXAM Physical Exam Const Vital Signs: 03/03/25 02:20 03/03/25 02:50 03/03/25 02:59 Temperature 97.8 F Temperature Source Oral Pulse Rate 95 Respiratory Rate 18 Respiratory Effort Normal Respiratory Depth Normal Respiratory Pattern Normal Blood Pressure 130/67 H Blood Pressure Mean 88 Blood Pressure Source Blood Pressure Position Blood Pressure Location Pulse Ox 99 Oxygen Delivery Method Room Air Room Air Room Air Oxygen Flow Rate (L/min) 03/03/25 02:59 03/03/25 03:20 03/03/25 04:00 Temperature Temperature Source Pulse Rate 87 103 H Respiratory Rate 27 H 21 H Respiratory Effort Respiratory Depth Respiratory Pattern Blood Pressure 111/50 L 111/61 Blood Pressure Mean 70 77 Blood Pressure Source Blood Pressure Position Blood Pressure Location Pulse Ox 96 97 100 Oxygen Delivery Method Room Air Room Air Room Air Oxygen Flow Rate (L/min) 03/03/25 05:00 03/03/25 05:43 03/03/25 05:58 Temperature 97.7 F L 97.7 F L Temperature Source Temporal Temporal Pulse Rate 105 H 107 H 102 H Respiratory Rate 22 H 25 H 22 H Respiratory Effort Respiratory Depth Respiratory Pattern Blood Pressure 116/49 L 116/55 L 152/66 H Blood Pressure Mean 71 75 94 Blood Pressure Source Monitor Monitor Blood Pressure Position Semi-Fowlers Semi-Fowlers Blood Pressure Location Left Arm Left Arm Pulse Ox 98 96 95 Oxygen Delivery Method Room Air Room Air Room Air Oxygen Flow Rate (L/min) 03/03/25 06:00 03/03/25 06:47 03/03/25 07:00 Temperature 97.2 F L Temperature Source Temporal Pulse Rate 101 H 82 80 Respiratory Rate 24 H 20 H 23 H Respiratory Effort Respiratory Depth Respiratory Pattern Normal Blood Pressure 126/53 H 101/48 L Blood Pressure Mean 77 65 Blood Pressure Source Monitor Blood Pressure Position Semi-Fowlers Blood Pressure Location Left Arm Pulse Ox 96 99 Oxygen Delivery Method Nasal Cannula Room Air Oxygen Flow Rate (L/min) 2 Positive well nourished and well developed Constitutional Narrative: Uncomfortable appearing General Appearance ED: well developed and pallor HEENT Reports dry mucous membranes Mouth ED: Yes dry mucous membranes Mouth: dry mucous membranes Eyes EOMs intact bilaterally General Eye ED: Yes pale conjunctiva Neck supple and no JVD Resp normal respiratory effort Resp Narrative: Bibasilar diminished breath sounds present. No crackles appreciated. Cardio regular rate and regular rhythm GI non-tender and non-distended GI Narrative: Chaperoned rectal exam performed. Patient has dark stool but not completely melanotic. Is guaiac positive. Extremity normal to inspection Extremity Narrative: Trace pitting edema of the lower extremities, slightly more pronounced on the right compared to the left. Compartments are soft. Neuro oriented x3 Sensorium / Orientation: alert Motor Exam: general weakness Psych mental status grossly normal Skin General Skin Exam: pallor; Negative for jaundice Rashes: no rashes MDM MDM MDM Narrative Medical decision making narrative: Patient evaluated for worsening shortness of breath. Woke up at 130 feeling shecould not breathe. Lately has had worsening shortness of breath and palpitations. Notes she had recent admission for ACS and had a stent placed. After that she has been dealing with worsening anemia and had another admission where she was found to have GI bleeding. Was evaluated by GI. Is on dual antiplatelet therapy because of her recent stent. Differential includes symptomatic anemia, ACS, pneumothorax, pneumonia, COPD exacerbation, pleural effusion, GI bleed and referred GI symptoms. CBC shows normal white blood cell count and normal platelets however patient nowhas significant anemia with a hemoglobin of 6.2 (was 7.4 on 02/28/2025 but prior to last month baseline was around 13). Suspect this acute but slow worsening ofher hemoglobin with underlying CAD as was causing her symptoms. Given her recent hospitalization and down a D-dimer to rule out PE. This is normal for age adjustment and low suspicion for PE. Do not think requires a CTA at this time. BMP does not show any significant electrolyte abnormalities however creatinine is mildly uptrending at 1.25 (baseline is 1.1), BUN is also mildly elevated at 26 but is stable compared to the last month. Initial high-sensitivity is 21, delta is pending. Lipase is normal. No significant transaminitis. Chest x-ray viewed by myself as well as radiology does not show any acute process however due to question of there were small effusions present that radiology did not comment on. EKG does not show any acute ischemia. Type and cross for 1 unit is ordered. Patient is also given some IV fluids. I will discuss with GI and hospitalist for admission given acute on chronic anemialikely from a continued GI bleeding in the setting of anticoagulation. Per conversation with Dr. Cotto, he agrees with admission for blood transfusion. He suspects patient would likely benefit from capsule study outpatient. Is not clear if she will need further endoscopy. Patient does become more short of breath with walking to the bathroom. She has very diminished breath sounds at the bases. Will obtain VBG and give DuoNeb as she does have a history of tobacco use. On reevaluation after DuoNeb patient is improvement of her breath sounds howeverpatient feels that she cannot breathe. She is more tachycardic. VBG is more consistent with hyperventilation with a pH of 7.478, pCO2 of 24.3. Will be given 0.5 mg IV Ativan and continue to monitor. I do not appreciate any crackles or signs of flash pulmonary edema on physical exam. She is 94-95% on room air. Repeat evaluation after IV Ativan. Patient feels much more improved. Is breathing more comfortably. Continues to have improved breath sounds after the breathing treatment. Case discussed with Dr. Long for admission. Lab Data Attestation: I reviewed the patient's lab results. Labs: Laboratory Results - last 24 hr 03/03/25 03/03/25 03/03/25 02:35 02:35 02:35 WBC 9.9 RBC 1.91 L Hgb 6.2 L Hct 20.4 L MCV 106.8 H MCH 32.5 H MCHC 30.4 L RDW Std Deviation 70.3 H RDW Coeff of Gerber 18.6 H Plt Count 184 MPV 10.3 Immature Gran % (Auto) 0.500 Neut % (Auto) 69.3 Lymph % (Auto) 22.1 [place] % (Auto) 5.1 Eos % (Auto) 2.5 Baso % (Auto) 0.5 Absolute Neuts (auto) 6.9 Absolute Lymphs (auto) 2.19 Nucleated RBC % 0 Anisocytosis 1+ PT 13.7 INR 1.0 APTT 25.9 D-Dimer Quant (PE/DVT) 0.58 H* Sodium Cancelled 141 Potassium Cancelled 3.9 Chloride Cancelled Carbon Dioxide Anion Gap BUN Creatinine Estim Creat Clear Calc Est GFR (MDRD) Non-Af BUN/Creatinine Ratio Glucose Calcium Magnesium Total Bilirubin Direct Bilirubin AST ALT Alkaline Phosphatase Troponin T High Sens Troponin T Hi Sens 2 Hr NT pro BNP II Total Protein Albumin Globulin Lipase Blood Type ABO/Rh A1 Subgroup A1 Antigen Typing Rho(D) Tech Interpret Antibody Screen Crossmatch 03/03/25 03/03/25 03/03/25 02:35 02:35 02:35 WBC RBC Hgb Hct MCV MCH MCHC RDW Std Deviation RDW Coeff of Gerber Plt Count MPV Immature Gran % (Auto) Neut % (Auto) Lymph % (Auto) Daggett % (Auto) Eos % (Auto) Baso % (Auto) Absolute Neuts (auto) Absolute Lymphs (auto) Nucleated RBC % Anisocytosis PT INR APTT D-Dimer Quant (PE/DVT) Sodium Potassium Chloride 108 Carbon Dioxide Cancelled 21.3 Anion Gap Cancelled 12 BUN Cancelled Creatinine Estim Creat Clear Calc Est GFR (MDRD) Non-Af BUN/Creatinine Ratio Glucose Calcium Magnesium Total Bilirubin Direct Bilirubin AST ALT Alkaline Phosphatase Troponin T High Sens Troponin T Hi Sens 2 Hr NT pro BNP II Total Protein Albumin Globulin Lipase Blood Type ABO/Rh A1 Subgroup A1 Antigen Typing Rho(D) [employer] Interpret Antibody Screen Crossmatch 03/03/25 03/03/25 03/03/25 02:35 02:35 02:35 WBC RBC Hgb Hct MCV MCH MCHC RDW Std Deviation RDW Coeff of Gerber Plt Count MPV Immature Gran % (Auto) Neut % (Auto) Lymph % (Auto) Daggett % (Auto) Eos % (Auto) Baso % (Auto) Absolute Neuts (auto) Absolute Lymphs (auto) Nucleated RBC % Anisocytosis PT INR APTT D-Dimer Quant (PE/DVT) Sodium Potassium Chloride Carbon Dioxide Anion Gap BUN 26 H Creatinine Cancelled 1.25 H Estim Creat Clear Calc Cancelled 46.71 L Est GFR (MDRD) Non-Af Cancelled BUN/Creatinine Ratio Glucose Calcium Magnesium Total Bilirubin Direct Bilirubin AST ALT Alkaline Phosphatase Troponin T High Sens Troponin T Hi Sens 2 Hr NT pro BNP II Total Protein Albumin Globulin Lipase Blood Type ABO/Rh A1 Subgroup A1 Antigen Typing Rho(D) Tech Interpret Antibody Screen Crossmatch 03/03/25 03/03/25 03/03/25 02:35 02:35 02:35 WBC RBC Hgb Hct MCV MCH MCHC RDW Std Deviation RDW Coeff of Gerber Plt Count MPV Immature Gran % (Auto) Neut % (Auto) Lymph % (Auto) Daggett % (Auto) Eos % (Auto) Baso % (Auto) Absolute Neuts (auto) Absolute Lymphs (auto) Nucleated RBC % Anisocytosis PT INR APTT D-Dimer Quant (PE/DVT) Sodium Potassium Chloride Carbon Dioxide Anion Gap BUN Creatinine Estim Creat Clear Calc Est GFR (MDRD) Non-Af 48 L BUN/Creatinine Ratio Cancelled 21.0 H Glucose Cancelled 114 H Calcium Cancelled Magnesium Total Bilirubin Direct Bilirubin AST ALT Alkaline Phosphatase Troponin T High Sens Troponin T Hi Sens 2 Hr NT pro BNP II Total Protein Albumin Globulin Lipase Blood Type ABO/Rh A1 Subgroup A1 Antigen Typing Rho(D) Tech Interpret Antibody Screen Crossmatch 03/03/25 03/03/25 03/03/25 02:35 02:35 05:42 WBC RBC Hgb Hct MCV MCH MCHC RDW Std Deviation RDW Coeff of Gerber Plt Count MPV Immature Gran % (Auto) Neut % (Auto) Lymph % (Auto) Daggett % (Auto) Eos % (Auto) Baso % (Auto) Absolute Neuts (auto) Absolute Lymphs (auto) Nucleated RBC % Anisocytosis PT INR APTT D-Dimer Quant (PE/DVT) Sodium Potassium Chloride Carbon Dioxide Anion Gap BUN Creatinine Estim Creat Clear Calc Est GFR (MDRD) Non-Af BUN/Creatinine Ratio Glucose Calcium 9.0 Magnesium 2.0 Total Bilirubin 0.26 Direct Bilirubin 0.13 AST 21 ALT 35 Alkaline Phosphatase 58 Troponin T High Sens 21 H D Troponin T Hi Sens 2 Hr 21 H NT pro BNP II Cancelled 531 Total Protein 6.0 Albumin 3.6 Globulin 2.4 Lipase 52 Blood Type A NEGATIVE ABO/Rh Cancelled A1 Subgroup Cancelled A1 Antigen Typing Cancelled Rho(D) Tech Interpret Cancelled Antibody Screen NEGATIVE Crossmatch See Detail ABG Data ABG results: ABG 03/03/25 06:13 Specimen Type ART Sample Site R Radial pH 7.48 H Bicarbonate Actual 18.0 L Total CO2 19 Base Excess -6 L O2 Saturation 71 L ABG pCO2 24.3 L ABG pO2 34 L* Alvaro Test Positive O2 Delivery Device Not entered Vent Mode Not entered Crit Call To/Read Back Yes Radiography Chest X-Ray - ED: 1 View, Read by ED Physician, Read by Radiologist and No AcuteDisease Diagnostic Testing: Clinical Impression(s) from Imaging Studies Chest X-Ray 03/03/25 03:05 IMPRESSION: No radiographic evidence of an acute abnormality. Reading Location: [place] [address] Rhythm Strip Rhythm Strip: Sinus Rhythm Rate: 91 Ectopy: None EKG Initial EKG: Attestation: I personally reviewed and interpreted this EKG as follows: Interpretation: Sinus Rhythm Comments: Normal sinus rhythm at a rate of 91 bpm Normal axis Normal intervals Normal ST segments Prior EKG tracings: available for review Prior: Unchanged Discharge Plan Dx/Rx/DC Orders Clinical Impression: Anemia, Palpitations, Weakness, GI bleed, ZAMORANO (dyspnea on exertion) Disposition Disposition: [facility] What to do if you have Problems For any increased pain, shortness of breath, bleeding, nausea or vomiting, chestpain, or any unexpected problems, contact your Primary Care Provider. Call [facility] ([phone]) or report to the closest Emergency Room. Call 911 if necessary. 03/03/25722 <Electronically signed by Swati Huff DO> Cosigner Signature (if applicable): CC: Dr. Florin Bailey DO ~ Signed [facility] Work Phone: Evaluation + Plan note Future Appointments Appointment Date:11/21/2024 09:45:00 AM Scheduled Provider:FLORIN BAILEY DO Location:[facility] Appointment Type:[facility] Evaluation + Plan note Future Appointments Appointment Date:01/21/2025 11:15:00 AM Scheduled Provider:FLORIN BAILEY DO Location:[facility] Appointment Type:[facility] Future Scheduled Tests Laboratory* Lipoprotein (a) 11/21/24 * Apolipoprotein B 11/21/24 * TSH with Reflex to FT4 11/21/24 * A1C Hemoglobin 11/21/24 * Complete Blood Count 11/21/24 * Lipid Profile 11/21/24 * Hepatitis C Antibody IgG 11/21/24 * Albumin/Creatinine Ratio, Random Urine 11/21/24 * Vitamin D Level 11/21/24 * Complete Metabolic Panel 11/21/24 Radiology* CT Low Dose Lung Cancer Screening (LDCT) 11/21/24 * MA Mammo Screening Bilateral w/ Dick 11/21/24 * BD Bone Density DEXA Axial Skeleton Adult (21 yrs or older) 11/21/24 [facility] Evaluation + Plan note Future Appointments Appointment Date:01/21/2025 11:15:00 AM Scheduled Provider:FLORIN BAILEY DO Location:[facility] Appointment Type:PC OV Future Scheduled Tests Laboratory* Lipoprotein (a) 11/21/24 * Apolipoprotein B 11/21/24 * TSH with Reflex to FT4 11/21/24 * Amylase Level 12/11/24 * Lipase Level 12/11/24 * A1C Hemoglobin 11/21/24 * Complete Blood Count 12/11/24 * Complete Blood Count 11/21/24 * Lipid Profile 11/21/24 * Hepatitis C Antibody IgG 11/21/24 * Albumin/Creatinine Ratio, Random Urine 11/21/24 * Vitamin D Level 11/21/24 * Complete Metabolic Panel 12/11/24 * Complete Metabolic Panel 11/21/24 Radiology* CT Low Dose Lung Cancer Screening (LDCT) 11/21/24 * MA Mammo Screening Bilateral w/ Dick 11/21/24 * BD Bone Density DEXA Axial Skeleton Adult (21 yrs or older) 11/21/24 * XR Esophogram W/Air 12/11/24 [facility] Evaluation + Plan note Future Appointments Appointment Date:07/17/2025 09:00:00 AM Scheduled Provider:FLORIN BAILEY DO Location:[facility] Appointment Type:PC OV Future Scheduled Tests Radiology* CT Low Dose Lung Cancer Screening (LDCT) 11/21/24 * MA Mammo Screening Bilateral w/ Dick 11/21/24 * BD Bone Density DEXA Axial Skeleton Adult (21 yrs or older) 11/21/24 * XR Esophogram W/Air 12/11/24 [facility] Evaluation + Plan note Future Appointments Appointment Date:07/17/2025 09:00:00 AM Scheduled Provider:FLORIN BAILEY DO Location:[facility] Appointment Type:PC OV Future Scheduled Tests Laboratory* Hemoglobin 02/15/25 * Stool for Occult Blood (Lab) 02/14/25 Radiology* CT Low Dose Lung Cancer Screening (LDCT) 11/21/24 * MA Mammo Screening Bilateral w/ Dick 11/21/24 * BD Bone Density DEXA Axial Skeleton Adult (21 yrs or older) 11/21/24 * XR Esophogram W/Air 12/11/24 [facility] Evaluation + Plan note Future Appointments Appointment Date:02/15/2025 02:30:00 PM Scheduled Provider:MARQUITA DOUGLAS Location:[facility] Appointment Type:PC OV Appointment Date:07/17/2025 09:00:00 AM Scheduled Provider:FLORIN BAILEY DO Location:[facility] Appointment Type:PC OV Future Scheduled Tests Laboratory* Basic Metabolic Panel 01/22/25 * Basic Metabolic Panel 01/21/25 * Stool for Occult Blood (Lab) 02/14/25 Radiology* CT Low Dose Lung Cancer Screening (LDCT) 11/21/24 * MA Mammo Screening Bilateral w/ Dick 11/21/24 * BD Bone Density DEXA Axial Skeleton Adult (21 yrs or older) 11/21/24 * XR Esophogram W/Air 12/11/24 [facility] Evaluation + Plan note Future Appointments Appointment Date:02/27/2025 01:00:00 PM Scheduled Provider:FLORIN BAILEY DO Location:[facility] Appointment Type:PC OV TCM 30 Appointment Date:07/17/2025 09:00:00 AM Scheduled Provider:FLORIN BAILEY DO Location:[facility] Appointment Type: OV Future Scheduled Tests Radiology* CT Low Dose Lung Cancer Screening (LDCT) 11/21/24 * MA Mammo Screening Bilateral w/ Dick 11/21/24 * BD Bone Density DEXA Axial Skeleton Adult (21 yrs or older) 11/21/24 * XR Esophogram W/Air 12/11/24 [facility] Evaluation + Plan note Future Appointments Appointment Date:03/08/2025 04:00:00 PM Scheduled Provider:FLORIN BAILEY DO Location:[facility] Appointment Type:PC OV [facility] 30 Appointment Date:07/17/2025 09:00:00 AM Scheduled Provider:FLORIN BAILEY DO Location:[facility] Appointment Type:PC OV Future Scheduled Tests Radiology* CT Low Dose Lung Cancer Screening (LDCT) 11/21/24 * MA Mammo Screening Bilateral w/ Dick 11/21/24 * BD Bone Density DEXA Axial Skeleton Adult (21 yrs or older) 11/21/24 * XR Esophogram W/Air 12/11/24 [facility] Evaluation + Plan note Future Appointments Appointment Date:04/01/2025 01:00:00 PM Scheduled Provider:FLORIN BAILEY DO Location:[facility] Appointment Type:PC OV [facility] 30 Appointment Date:07/17/2025 09:00:00 AM Scheduled Provider:FLORIN BAILEY DO Location:[facility] Appointment Type:PC OV Future Scheduled Tests Radiology* CT Low Dose Lung Cancer Screening (LDCT) 03/08/25 * CT Low Dose Lung Cancer Screening (LDCT) 11/21/24 * MA Mammo Screening Bilateral w/ Dick 03/08/25 * MA Mammo Screening Bilateral w/ Dick 11/21/24 * BD Bone Density DEXA Axial Skeleton Adult (21 yrs or older) 11/21/24 * XR Esophogram W/Air 12/11/24 [facility] evaluation + Plan note Future Appointments Appointment Date:04/09/2025 11:30:00 AM Scheduled Provider: Location:[facility] Appointment Type:MA Mammogram Screening Bilateral w/ Dick Appointment Date:05/07/2025 02:00:00 PM Scheduled Provider:FLORIN BAILEY DO Location:[facility] Appointment Type:PC OV Appointment Date:07/17/2025 09:00:00 AM Scheduled Provider:FLORIN BAILEY DO Location:[facility] Appointment Type:PC Wellness Medicare Future Scheduled Tests Laboratory* Basic Metabolic Panel 05/01/25 * Complete Blood Count 05/01/25 * Hemoglobin/Hematocrit - Panel 05/06/25 Radiology* CT Low Dose Lung Cancer Screening (LDCT) 03/08/25 * CT Low Dose Lung Cancer Screening (LDCT) 11/21/24 * MA Mammo Screening Bilateral w/ Dick 04/09/25 * MA Mammo Screening Bilateral w/ Dick 11/21/24 * BD Bone Density DEXA Axial Skeleton Adult (21 yrs or older) 11/21/24 * XR Esophogram W/Air 12/11/24 [facility] Evaluation + Plan note Future Appointments Appointment Date:05/07/2025 02:00:00 PM Scheduled Provider:FLORIN BAILEY DO Location:[facility] Appointment Type: OV Appointment Date:07/17/2025 09:00:00 AM Scheduled Provider:FLORIN BAILEY DO Location:[facility] Appointment Type:PC Wellness Medicare Future Scheduled Tests Laboratory* Basic Metabolic Panel 05/01/25 * Complete Blood Count 05/01/25 * Hemoglobin/Hematocrit - Panel 05/06/25 Radiology* CT Low Dose Lung Cancer Screening (LDCT) 03/08/25 * CT Low Dose Lung Cancer Screening (LDCT) 11/21/24 * MA Mammo Screening Bilateral w/ Dick 11/21/24 * BD Bone Density DEXA Axial Skeleton Adult (21 yrs or older) 11/21/24 * XR Esophogram W/Air 12/11/24 [facility] [employer] + Plan note Future Appointments Appointment Date:05/07/2025 02:00:00 PM Scheduled Provider:FLORIN BAILEY DO Location:[facility] Appointment Type: OV Appointment Date:07/17/2025 09:00:00 AM Scheduled Provider:FLORIN BAILEY DO Location:[facility] Appointment Type:PC Wellness Medicare Future Scheduled Tests Laboratory* Hemoglobin/Hematocrit - Panel 05/06/25 Radiology* CT Low Dose Lung Cancer Screening (LDCT) 03/08/25 * CT Low Dose Lung Cancer Screening (LDCT) 11/21/24 * MA Mammo Screening Bilateral w/ Dick 11/21/24 * BD Bone Density DEXA Axial Skeleton Adult (21 yrs or older) 11/21/24 * XR Esophogram W/Air 12/11/24 [facility] Evaluation note* Diagnosis SOB (shortness of breath)- Primary Shortness of breath Shortness of breath Melena Blood in stool Small intestinal hemorrhage not requiring more than four units of blood in 24 hours, admission to ICU, or surgery Coronary artery disease involving kasaan coronary artery, unspecified whether angina present, unspecified whether kasaan or transplanted heart Shortness of breath GI bleed Unspecified, hemorrhage of gastrointestinal tract documented in this encounter [facility] Work Phone: History and physical note Author Clyde Long [facility] Note Date/Time March 03, 2025 7:49a m [facility] Medical Records Department [address] [place] [address] H&P Exam - Hospitalist 03/03/25 0738 MR#: [id number] Acct: [id number] Name: MILY LONG Rep #:[id number] : 1960 64 From: Clyde Long DO PCP: Dr. Florin Bailey DO Status:ADM SABINO Location: [place] [address] HPI - General General Date of Admission: 03/03/25 Date of Service: 03/03/25 Chief Complaint: shortness of breath. HPI Narrative MILY LONG, is a 64 F who presents with shortness of breath. Symptoms began this AM and awoke her from sleep. She denies Chest/abd pain. Has chronic black stools from iron, but denies any change. No hematochezia/hematemesis. No abnormal bruising. She presented with a Hg of 6.2. She was ordered 1 unit of PRBCs and has subsequently been transfused. She is feeling better at this time. Dr. Cotto, of GI, was contacted and would see the patient in consultation. Patient did get very short of breath going to the bathroom but felt to be patient did receive a dose of lorazepam. Patient was hospitalized from 02/18- EGD showed Grad A erosive esophagitis; colonoscopy showed poor prep, moderate diverticulosis w/o bleeding. [facility] Medical History GERD (gastroesophageal reflux disease) Smoker CPAP (continuous positive airway pressure) dependence Non-ST elevation NV (NSTEMI) Hematuria UTI (urinary tract infection) Hyperlipidemia Atherosclerosis of coronary artery of kasaan heart without angina pectoris Myocardial infarct Home Medications ?Medication ?Instructions ?Recorded ?Last Taken ?Type aspirin 81 mg tablet,delayed 81 mg PO DAILY@0800 heart health 10/11/24 02/18/25 Rx release 90 days #90 tabs atorvastatin 40 mg tablet 40 mg PO QHS cholesterol 90 days 10/26/24 02/17/25 Rx #90 tabs lisinopril 2.5 mg tablet 2.5 mg PO DAILY blood pressu re 90 10/26/24 02/04/25 Rx days #90 tabs metoprolol succinate 25 mg 25 mg PO DAILY heart 90 day s #90 10/26/24 02/21/25 Rx tablet,extended release 24 hr tabs (Toprol XL) ticagrelor 90 mg tablet (Brilinta) 90 mg PO BID blood thinner 90 days 10/26/24 02/18/25 Rx #180 tabs albuterol sulfate 90 mcg/actuation 2 puff inhalation Q 4H PRN PRN 02/06/25 Unknown Rx aerosol inhaler (Ventolin HFA) Wheezing ##1 ascorbate calcium (vitamin C) 500 1 g PO DAILY 5 02/05/25 History mg tablet cranberry [id number] 2 tab PO DAILY supplement 02/05/25 History coagulans 250 mg-30 mg-15 mg tablet (Azo Cranberry Plus Probiotic) ondansetron 4 mg disintegrating 4 mg PO Q6H PRN PRN Na usea #15 tabs 02/06/25 02/17/25 Rx tablet nitroglycerin 0.4 mg sublingual 0.4 mg sublingual Q5-1 5M PRN chest 02/07/25 Unknown Rx tablet pain #25 tabs pantoprazole 40 mg tablet,delayed 40 mg PO DAILY #90 t abs 02/22/25 Unknown Rx release (Protonix) polysaccharide iron complex 150 mg 150 mg PO DAILY 90 days #90 caps 02/22/25 Unknown Rx iron capsule (Ferrex) omeprazole 40 mg capsule,delayed 40 mg PO DAILY Unknown History release Allergy/AdvReac Type Severity Reaction Status Date / Time Penicillins Allergy Hives Verified 03/03/25 02:22 Sulfa (Sulfonamide AdvReac Diarrhea Verified 03/03/25 02:22 Antibiotics) Family History Father CAD (coronary artery disease) CABG age 68; CVA (cerebral vascular accident) Myocardial infarction Mother Cancer Cervical, Melanoma, Colon Surgical History Status post cardiac surgery History of coronary artery stent placement History of carpal tunnel surgery of left wrist History of coronary artery stent placement (02/04/25) Social History household members: spouse housing: house Smoking Status: Current every day smoker tobacco type: cigarettes second hand exposure: No ROS ROS Narrative All review of systems were negative except as mentioned above in the history of present illness and the other review of systems. Vital Signs Vital Signs Vital Signs: 03/03/25 02:20 03/03/25 02:50 03/03/25 02:59 Temperature 36.6 C Temperature Source Oral Pulse Rate 95 Respiratory Rate 18 Respiratory Effort Normal Respiratory Depth Normal Respiratory Pattern Normal Blood Pressure 130/67 H Blood Pressure Mean 88 Blood Pressure Source Blood Pressure Position Blood Pressure Location Pulse Ox 99 Oxygen Delivery Method Room Air Room Air Room Air Oxygen Flow Rate (L/min) 03/03/25 02:59 03/03/25 03:20 03/03/25 04:00 Temperature Temperature Source Pulse Rate 87 103 H Respiratory Rate 27 H 21 H Respiratory Effort Respiratory Depth Respiratory Pattern Blood Pressure 111/50 L 111/61 Blood Pressure Mean 70 77 Blood Pressure Source Blood Pressure Position Blood Pressure Location Pulse Ox 96 97 100 Oxygen Delivery Method Room Air Room Air Room Air Oxygen Flow Rate (L/min) 03/03/25 05:00 03/03/25 05:43 03/03/25 05:58 Temperature 36.5 C L 36.5 C L Temperature Source Temporal Temporal Pulse Rate 105 H 107 H 102 H Respiratory Rate 22 H 25 H 22 H Respiratory Effort Respiratory Depth Respiratory Pattern Blood Pressure 116/49 L 116/55 L 152/66 H Blood Pressure Mean 71 75 94 Blood Pressure Source Monitor Monitor Blood Pressure Position Semi-Fowlers Semi-Fowlers Blood Pressure Location Left Arm Left Arm Pulse Ox 98 96 95 Oxygen Delivery Method Room Air Room Air Room Air Oxygen Flow Rate (L/min) 03/03/25 06:00 03/03/25 06:47 03/03/25 07:00 Temperature 36.2 C L Temperature Source Temporal Pulse Rate 101 H 82 80 Respiratory Rate 24 H 20 H 23 H Respiratory Effort Respiratory Depth Respiratory Pattern Normal Blood Pressure 126/53 H 101/48 L Blood Pressure Mean 77 65 Blood Pressure Source Monitor Blood Pressure Position Semi-Fowlers Blood Pressure Location Left Arm Pulse Ox 96 99 Oxygen Delivery Method Nasal Cannula Room Air Oxygen Flow Rate (L/min) 2 03/03/25 07:24 Temperature 36.1 C L Temperature Source Pulse Rate 87 Respiratory Rate 23 H Respiratory Effort Respiratory Depth Respiratory Pattern Blood Pressure 104/54 L Blood Pressure Mean 70 Blood Pressure Source Blood Pressure Position Blood Pressure Location Pulse Ox 100 Oxygen Delivery Method Oxygen Flow Rate (L/min) Weight Weight: 74.7 kg Body Mass Index (BMI) 25.7 Physical Exam Narrative - Physical Exam General: Alert, Oriented x3, Cooperative HEENT: Atraumatic, PERRLA, EOMI, Normocephalic Oral: Moist Mucosa, No Gingival or Mucosal Lesions/ Ulcerations Neck: Supple, No JVD, Negative Carotid Bruits Lungs: Clear to auscultation, Normal air movement Cardiovascular: Regular rate, Normal S1, Normal S2, No murmurs Abdomen: Bowel Sounds Present, Soft, Non Tender, Non-Distended, No Hepato-splenomegaly Extremities: No clubbing, No cyanosis, No edema Skin: No rashes, No breakdown Musculoskeletal: No Tenderness to Palpation of Joints or Extremities Neurological: Neuro grossly intact Psych/Mental Status: Normal Affect, Appropriate Results Lab / Micro Data Attestation: I reviewed the patient's lab results. 03/03/25 02:35 03/03/25 02:35 Labs: Laboratory Results - last 24 hr 03/03/25 02:35: WBC 9.9, RBC 1.91 L, Hgb 6.2 L, Hct 20.4 L, MCV 106.8 H, MCH 32.5 H, MCHC 30.4 L, RDW Std Deviation 70.3 H, RDW Coeff of Gerber 18.6 H, Plt Count 184, MPV 10.3, Immature Gran % (Auto) 0.500, Neut % (Auto) 69.3, Lymph % (Auto) 22.1, Daggett % (Auto) 5.1, Eos % (Auto) 2.5, Baso % (Auto) 0.5, Absolute Neuts (auto) 6.9, Absolute Lymphs (auto) 2.19, Nucleated RBC % 0, Anisocytosis 1+, PT 13.7, INR 1.0, APTT 25.9, D-Dimer Quant (PE/DVT) 0.58 H*, Sodium Cancelled 03/03/25 02:35: Sodium 141, Potassium Cancelled 03/03/25 02:35: Potassium 3.9, Chloride Cancelled 03/03/25 02:35: Chloride 108, Carbon Dioxide Cancelled 03/03/25 02:35: Carbon Dioxide 21.3, Anion Gap Cancelled 03/03/25 02:35: Anion Gap 12, BUN Cancelled 03/03/25 02:35: BUN 26 H, Creatinine Cancelled 03/03/25 02:35: Creatinine 1.25 H, Estim Creat Clear Calc Cancelled 03/03/25 02:35: Estim Creat Clear Calc 46.71 L, Est GFR (MDRD) Non-Af Cancelled 03/03/25 02:35: Est GFR (MDRD) Non-Af 48 L, BUN/Creatinine Ratio Cancelled 03/03/25 02:35: BUN/Creatinine Ratio 21.0 H, Glucose Cancelled 03/03/25 02:35: Glucose 114 H, Calcium Cancelled 03/03/25 02:35: Calcium 9.0, Magnesium 2.0, Total Bilirubin 0.26, Direct Bilirubin 0.13, AST 21, ALT 35, Alkaline Phosphatase 58, Troponin T High Sens 21H D, NT pro BNP II Cancelled 03/03/25 02:35: NT pro BNP II 531, Total Protein 6.0, Albumin 3.6, Globulin 2.4,Lipase 52, Blood Type A NEGATIVE, ABO/Rh Cancelled, A1 Subgroup Cancelled, A1 Antigen Typing Cancelled, Rho(D) Tech Interpret Cancelled, Antibody Screen NEGATIVE, Crossmatch See Detail 03/03/25 05:42: Troponin T Hi Sens 2 Hr 21 H Micro: Microbiology 03/03/25 03:58 Stool Stool Occult Blood (BHAVESH) - Final Occult Blood Positive ABG Data ABG results: ABG 03/03/25 06:13 Specimen Type ART Sample Site R Radial pH 7.48 H Bicarbonate Actual 18.0 L Total CO2 19 Base Excess -6 L O2 Saturation 71 L ABG pCO2 24.3 L ABG pO2 34 L* Alvaro Test Positive O2 Delivery Device Not entered Vent Mode Not entered Crit Call To/Read Back Yes Rhythm Strip Rhythm Strip: Sinus Rhythm Rate: 91 Ectopy: None EKG Initial EKG: Attestation: I personally reviewed and interpreted this EKG as follows: Prior EKG tracings: available for review EKG Rhythm Intrepretation: Sinus Rhythm Imaging Radiology Impression Chest X-Ray 03/03/25 03:05 IMPRESSION: No radiographic evidence of an acute abnormality. Reading Location: [place] [address] Assessment & Plan Assessment/Plan (1) Anemia: PLAN: Acute, symptomatic. Recurrent. No obvious bleeding but was heme positive in the emergency room. Patient does have noted diverticulosis on her previous colonoscopy which I suspect would probably be the source of her bleeding complicated by the fact that she is on aspirin and ticagrelor. Patient received a unit of blood here in the emergency room. Will monitor her hemoglobin. Given her recent PCI, goal hemoglobin to be around 8. Though I do not feel that it is upper we will change her PPI to IV twice daily for now. (2) GI bleed: PLAN: No marlyn bleeding but heme positive. Suspect diverticular. GI on consult. Unless patient starts actively hemorrhaging, I do not feel that CT angiogram would be necessary at this time. PLAN: Plan CAD: Patient had PCI in September 2024. Patient needs to continue dual antiplatelet therapy as well as atorvastatin. Hypertension: Continue with lisinopril metoprolol. VTE prophylaxis with SCDs CODE STATUS: Addressed with the patient. Patient wishes to be full code. Charges/Coding Visit Charges Inpatient E&M: 35260 Init Hosp L3 03/03/25 0749 <Electronically signed by Clyde Long DO> Cosigner Signature (if applicable): CC: Dr. Clyde Long DO; Dr. 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 Please follow-up with your primary care doctor as well. I wrote Zofran for your nausea. Also wrote you albuterol inhaler as the CT of your chest today shows emphysema of your lungs. Please discuss this further with your doctor.[facility] Work Phone: Hospital Discharge instructions Additional Instructions As we discussed I spoke with gastroenterology who did not feel transfer was necessary today. Your hemoglobin today was 7. You were transfused 1 unit. Please call the gastroenterology office that you were referred to tomorrow morning. Informed them of your recent ED visit tonight and that we spoke with the documentation nurse who is on-call who stated that you can be seen this week. I have printed off a copy of your most recent studies which should help them in developing a plan of care. As always you are welcome to return to the emergency here for repeat examination if need be.[facility] Work Phone: Progress note No data available for this section [facility] Summary Purpose Family History No Family History Records Found Relationship Condition Age at Onset Recorded Date/T feliz father Coronary artery disease Unknown Cerebrovascular accident (CVA) Unknown Myocardial infarction Unknown mother Malignant neoplasm Unknown Advance Directives No Advanced Directives Records Found Advance Directive Response Recorded Date/ Time Living Will No October 09 4:17pm Do you have a Healthcare Power of Iuss Master Analyst? No October 09, 2024 4:17pm Living Will No December 11 11:26am Do you have a Healthcare Power of Iuss Master Analyst? No December 11, 2024 11:26am Advance Directives on File No Em 2024 9:08am Living Will No October 31 9:08am Do you have a Healthcare Power of Iuss Master Analyst? No October 31, 2024 9:08am Advance Directive Response Recorded Date/ Time Living Will No October 09 4:17pm Do you have a Healthcare Power of Iuss Master Analyst? No October 09, 2024 4:17pm Living Will No December 11 025 11:26am Do you have a Healthcare Power of Iuss Master Analyst? No December 11, 2024 11:26am Living Will No February 04, 2025 11:37am Do you have a Healthcare Power of Iuss Master Analyst? No February 04, 2025 11:37am Advance Directives on File No Em ry 2024 9:08am Living Will No October 31 9:08am Do you have a Healthcare Power of Iuss Master Analyst? No October 31, 2024 9:08am Advance Directive Response Recorded Date/ Time Living Will No October 09, 4:17pm Do you have a Healthcare Power of Iuss Master Analyst? No October 09, 2024 4:17pm Living Will No December 11 11:26am Do you have a Healthcare Power of Iuss Master Analyst? No December 11, 2024 11:26am Living Will No February 04, 2025 3:31pm Do you have a Healthcare Power of Iuss Master Analyst? No February 04, 2025 3:31pm Advance Directives on File No Em [email or web address] 2024 9:08am Living Will No October 31 9:08am Do you have a Healthcare Power of Iuss Master Analyst? No October 31, 2024 9:08am Advance Directive Response Recorded Date/ Time Living Will No October 09, 024 4:17pm Do you have a Healthcare Power of Iuss Master Analyst? No October 09, 2024 4:17pm Living Will No December 11 11:26am Do you have a Healthcare Power of Iuss Master Analyst? No December 11, 2024 11:26am Living Will No February 04, 2025 3:31pm Do you have a Healthcare Power of Iuss Master Analyst? No February 04, 2025 3:31pm Living Will No February 06, 2025 9:18am Do you have a Healthcare Power of Iuss Master Analyst? No February 06, 2025 9:18am Advance Directives on File No Em [email or web address] 2024 9:08am Living Will No October 31 9:08am Do you have a Healthcare Power of Iuss Master Analyst? No October 31, 2024 9:08am Advance Directive Response Recorded Date/ Time Living Will No December 11 11:26am Do you have a Healthcare Power of Iuss Master Analyst? No December 11, 2024 11:26am Living Will No February 04, 2025 3:31pm Do you have a Healthcare Power of Iuss Master Analyst? No February 04, 2025 3:31pm Living Will No February 06, 2025 9:18am Do you have a Healthcare Power of Iuss Master Analyst? No February 06, 2025 9:18am Advance Directives on File No [email or web address] 2024 9:08am Living Will No October 31 9:08am Do you have a Healthcare Power of Iuss Master Analyst? No October 31, 2024 9:08am Advance Directives on File No February 12, 2025 10:06am Living Will No February 12, 2025 10:06am Do you have a Healthcare Power of Iuss Master Analyst? No February 12, 2025 10:06am Advance Directive Response Recorded Date/ Time Living Will No December 11 11:26am Do you have a Healthcare Power of Iuss Master Analyst? No December 11, 2024 11:26am Living Will No February 04, 2025 3:31pm Do you have a Healthcare Power of Iuss Master Analyst? No February 04, 2025 3:31pm Living Will No February 06, 2025 9:18am Do you have a Healthcare Power of Iuss Master Analyst? No February 06, 2025 9:18am Do you have a Healthcare Power of Iuss Master Analyst? No February 18, 2025 3:53pm Advance Directives on File No 2024 9:08am Living Will No October 31 9:08am Do you have a Healthcare Power of Iuss Master Analyst? No October 31, 2024 9:08am Advance Directives on File No February 12, 2025 10:06am Living Will No February 12, 2025 10:06am Do you have a Healthcare Power of Iuss Master Analyst? No February 12, 2025 10:06am Do you have a Healthcare Power of Iuss Master Analyst? No February 28, 2025 2:08am Advance Directive Response Recorded Date/ Time Living Will No December 11 11:26am Do you have a Healthcare Power of Iuss Master Analyst? No December 11, 2024 11:26am Living Will No February 04, 2025 3:31pm Do you have a Healthcare Power of Iuss Master Analyst? No February 04, 2025 3:31pm Living Will No February 06, 2025 9:18am Do you have a Healthcare Power of Iuss Master Analyst? No February 06, 2025 9:18am Do you have a Healthcare Power of Iuss Master Analyst? No February 18, 2025 3:53pm Do you have a Healthcare Power of Iuss Master Analyst? No March 03, 2025 2:49am Advance Directives on File No February 12, 2025 10:06am Living Will No February 12, 2025 10:06am Do you have a Healthcare Power of Iuss Master Analyst? No February 12, 2025 10:06am Do you have a Healthcare Power of Iuss Master Analyst? No February 28, 2025 2:08am Advance Directive Response Recorded Date/ Time Living Will No December 11 11:26am Do you have a Healthcare Power of Iuss Master Analyst? No December 11, 2024 11:26am Living Will No February 04, 2025 3:31pm Do you have a Healthcare Power of Iuss Master Analyst? No February 04, 2025 3:31pm Living Will No February 06, 2025 9:18am Do you have a Healthcare Power of Iuss Master Analyst? No February 06, 2025 9:18am Do you have a Healthcare Power of Iuss Master Analyst? No February 18, 2025 3:53pm Do you have a Healthcare Power of Iuss Master Analyst? No March 03, 2025 8:25am Advance Directives on File No February 12, 2025 10:06am Living Will No February 12, 2025 10:06am Do you have a Healthcare Power of Iuss Master Analyst? No February 12, 2025 10:06am Do you have a Healthcare Power of Iuss Master Analyst? No February 28, 2025 2:08am Advance Directive Response Recorded Date/ Time Living Will No December 11 11:26am Do you have a Healthcare Power of Iuss Master Analyst? No December 11, 2024 11:26am Living Will No February 04, 2025 3:31pm Do you have a Healthcare Power of Iuss Master Analyst? No February 04, 2025 3:31pm Living Will No February 06, 2025 9:18am Do you have a Healthcare Power of Iuss Master Analyst? No February 06, 2025 9:18am Do you have a Healthcare Power of Iuss Master Analyst? No February 18, 2025 3:53pm Do you have a Healthcare Power of Iuss Master Analyst? No March 03, 2025 8:25am Do you have a Healthcare Power of Iuss Master Analyst? No March 18, 2025 5:03am Advance Directives on File No February 12, 2025 10:06am Living Will No February 12, 2025 10:06am Do you have a Healthcare Power of Iuss Master Analyst? No February 12, 2025 10:06am Do you have a Healthcare Power of Iuss Master Analyst? No February 28, 2025 2:08am Date Activated Date Inactivated Comments 03/21/2025 10:41 PM Question Answer Comments Plan of Care: Code Status Discussion Completed Decision Maker: Patient Advance Directive Response Recorded Date/ Time Living Will No February 04, 2025 3:31pm Do you have a Healthcare Power of Iuss Master Analyst? No February 04, 2025 3:31pm Living Will No February 06, 2025 9:18am Do you have a Healthcare Power of Iuss Master Analyst? No February 06, 2025 9:18am Do you have a Healthcare Power of Iuss Master Analyst? No February 18, 2025 3:53pm Do you have a Healthcare Power of Iuss Master Analyst? No March 03, 2025 8:25am Do you have a Healthcare Power of Iuss Master Analyst? No March 18, 2025 5:03am Advance Directives on File No February 12, 2025 10:06am Living Will No February 12, 2025 10:06am Do you have a Healthcare Power of Iuss Master Analyst? No February 12, 2025 10:06am Do you have a Healthcare Power of Iuss Master Analyst? No February 28, 2025 2:08am Chief Complaint and Reason for Visit Chief Complaint Admit Date ACUTE ST ELEVATION October 09, 2024 4:14pm ACUTE ST ELEVATION October 09, 2024 4:35pm ACUTE ST ELEVATION October 10, 2024 11:43am ACUTE ST ELEVATION October 11, 2024 8:20am ACUTE ST ELEVATION October 11, 2024 9:28am S/P [facility] 10/11October 26, 2024 3: 15pm PCI with stenting October 31, 2024 7: 55am Snoring, ANDRIA concern November 07, 2024 8:02pm PCI with stenting November 23, 2024 1 1:15am PCI with stenting December 03, 2024 11:15am SOB December 11, 2024 9:56am Sleep problems January 02, 2025 8:3 8am ANDRIA January 09, 2025 7:5 9pm Reason for Visit Admit Date History of coronary artery stent placeme nt October 09, 2024 4:35pm Acute ST elevation myocardia l infarction (STEMI) of anterolateral wall October 09, 2024 4:35pm Hypersomnolence October 26, 2024 3: 15pm History of coronary artery stent placeme nt October 26, 2024 3:15pm Hyperlipidemia October 26, 2024 3: 15pm Tobacco abuse October 26, 2024 3: 15pm Obstructive sleep apnea January 02, 2025 8:38am Smoking greater than 30 pack years January 02, 2025 8:38am Chief Complaint Admit Date ACUTE ST ELEVATION October 09, 2024 4:14pm ACUTE ST ELEVATION October 09, 2024 4:35pm ACUTE ST ELEVATION October 10, 2024 11:43am ACUTE ST ELEVATION October 11, 2024 8:20am ACUTE ST ELEVATION October 11, 2024 9:28am S/P [facility] 10/11October 26, 2024 3: 15pm PCI with stenting October 31, 2024 7: 55am Snoring, ANDRIA concern November 07, 2024 8:02pm PCI with stenting November 23, 2024 1 1:15am PCI with stenting December 03, 2024 11:15am SOB December 11, 2024 9:56am Sleep problems January 02, 2025 8:3 8am ANDRIA January 09, 2025 7:5 9pm 3 M FU January 23, 2025 8:52 am HEMATURIA January 24, 2025 8:45 am Reason for Visit Admit Date History of coronary artery stent placeme nt October 09, 2024 4:35pm Acute ST elevation myocardia l infarction (STEMI) of anterolateral wall October 09, 2024 4:35pm Hypersomnolence October 26, 2024 3: 15pm History of coronary artery stent placeme nt October 26, 2024 3:15pm Hyperlipidemia October 26, 2024 3: 15pm Tobacco abuse October 26, 2024 3: 15pm Obstructive sleep apnea January 02, 2025 8:38am Smoking greater than 30 pack years January 02, 2025 8:38am Hematuria January 23, 2025 8:52 am History of coronary artery stent placeme nt January 23, 2025 8:52am Hyperlipidemia January 23, 2025 8:52 am Tobacco abuse January 23, 2025 8:52 am Chief Complaint Admit Date ACUTE ST ELEVATION October 09, 2024 4:14pm ACUTE ST ELEVATION October 09, 2024 4:35pm ACUTE ST ELEVATION October 10, 2024 11:43am ACUTE ST ELEVATION October 11, 2024 8:20am ACUTE ST ELEVATION October 11, 2024 9:28am S/P [facility] 10/11October 26, 2024 3: 15pm PCI with stenting October 31, 2024 7: 55am Snoring, ANDRIA concern November 07, 2024 8:02pm PCI with stenting November 23, 2024 1 1:15am PCI with stenting December 03, 2024 11:15am SOB December 11, 2024 9:56am Sleep problems January 02, 2025 8:3 8am GROSS HEMATURIA January 08, 2025 9:0 0am ANDRIA January 09, 2025 7:5 9pm 3 M FU January 23, 2025 8:52 am HEMATURIA January 24, 2025 8:45 am ANGINA February 04, 2025 1:0 0pm ANGINA February 04, 2025 1:1 1pm Reason for Visit Admit Date History of coronary artery stent placeme nt October 09, 2024 4:35pm Acute ST elevation myocardia l infarction (STEMI) of anterolateral wall October 09, 2024 4:35pm Hypersomnolence October 26, 2024 3: 15pm History of coronary artery stent placeme nt October 26, 2024 3:15pm Hyperlipidemia October 26, 2024 3: 15pm Tobacco abuse October 26, 2024 3: 15pm Obstructive sleep apnea January 02, 2025 8:38am Smoking greater than 30 pack years January 02, 2025 8:38am Hematuria January 23, 2025 8:52 am History of coronary artery stent placeme nt January 23, 2025 8:52am Hyperlipidemia January 23, 2025 8:52 am Tobacco abuse January 23, 2025 8:52 am Hematuria February 04, 2025 1:0 0pm Non-ST elevation NV (NSTEMI) February 04, 2025 1:00pm History of coronary artery stent placeme nt February 04, 2025 1:00pm Hyperlipidemia February 04, 2025 1:0 0pm Chief Complaint Admit Date ACUTE ST ELEVATION October 09, 2024 4:14pm ACUTE ST ELEVATION October 09, 2024 4:35pm ACUTE ST ELEVATION October 10, 2024 11:43am ACUTE ST ELEVATION October 11, 2024 8:20am ACUTE ST ELEVATION October 11, 2024 9:28am S/P [facility] 10/11October 26, 2024 3: 15pm PCI with stenting October 31, 2024 7: 55am Snoring, ANDRIA concern November 07, 2024 8:02pm PCI with stenting November 23, 2024 1 1:15am PCI with stenting December 03, 2024 11:15am SOB December 11, 2024 9:56am Sleep problems January 02, 2025 8:3 8am GROSS HEMATURIA January 08, 2025 9:0 0am ANDRIA January 09, 2025 7:5 9pm 3 M FU January 23, 2025 8:52 am HEMATURIA January 24, 2025 8:45 am nonstemi February 04, 2025 1:0 0pm ANGINA February 04, 2025 1:1 1pm ANGINA February 05, 2025 7:3 8am nonstemi February 05, 2025 12: 55pm Chief Complaint Admit Date ACUTE ST ELEVATION October 09, 2024 4:14pm ACUTE ST ELEVATION October 09, 2024 4:35pm ACUTE ST ELEVATION October 10, 2024 11:43am ACUTE ST ELEVATION October 11, 2024 8:20am ACUTE ST ELEVATION October 11, 2024 9:28am S/P [facility] 10/11October 26, 2024 3: 15pm PCI with stenting October 31, 2024 7: 55am Snoring, ANDRIA concern November 07, 2024 8:02pm PCI with stenting November 23, 2024 1 1:15am PCI with stenting December 03, 2024 11:15am SOB December 11, 2024 9:56am Sleep problems January 02, 2025 8:3 8am GROSS HEMATURIA January 08, 2025 9:0 0am ANDRIA January 09, 2025 7:5 9pm 3 M FU January 23, 2025 8:52 am HEMATURIA January 24, 2025 8:45 am nonstemi February 04, 2025 1:0 0pm ANGINA February 04, 2025 1:1 1pm ANGINA February 05, 2025 7:3 8am nonstemi February 05, 2025 12: 55pm palpitations February 06, 2025 8:5 6am Referral Order February 06, 2025 12: 29pm Chief Complaint Admit Date S/P [facility] 10/11October 26, 2024 3: 15pm PCI with stenting October 31, 2024 7: 55am Snoring, ANDRIA concern November 07, 2024 8:02pm PCI with stenting November 23, 2024 1 1:15am PCI with stenting December 03, 2024 11:15am SOB December 11, 2024 9:56am Sleep problems January 02, 2025 8:3 8am GROSS HEMATURIA January 08, 2025 9:0 0am ANDRIA January 09, 2025 7:5 9pm 3 M FU January 23, 2025 8:52 am HEMATURIA January 24, 2025 8:45 am nonstemi February 04, 2025 1:0 0pm ANGINA February 04, 2025 1:1 1pm ANGINA February 05, 2025 7:3 8am nonstemi February 05, 2025 12: 55pm palpitations February 06, 2025 8:5 6am Referral Order February 06, 2025 12: 29pm S/P stent, then ER visit after Omer coreas 2024 11:23am PCI with stenting February 12, 2025 9:5 5am Reason for Visit Admit Date Hypersomnolence October 26, 2024 3: 15pm Tobacco abuse October 26, 2024 3: 15pm History of coronary artery stent placeme nt October 26, 2024 3:15pm Hyperlipidemia October 26, 2024 3: 15pm Obstructive sleep apnea January 02, 2025 8:38am Smoking greater than 30 pack years January 02, 2025 8:38am Tobacco abuse January 23, 2025 8:52 am Hematuria January 23, 2025 8:52 am History of coronary artery stent placeme nt January 23, 2025 8:52am Hyperlipidemia January 23, 2025 8:52 am Hematuria February 04, 2025 1:0 0pm History of coronary artery stent placeme nt February 04, 2025 1:00pm Hyperlipidemia February 04, 2025 1:0 0pm Non-ST elevation NV (NSTEMI) February 04, 2025 1:00pm Murmur February 07, 2025 11: 23am Palpitations February 07, 2025 11: 23am Tobacco abuse February 07, 2025 11: 23am Fatigue February 07, 2025 11: 23am Hematuria February 07, 2025 11: 23am History of coronary artery stent placeme nt February 07, 2025 11:23am Hyperlipidemia February 07, 2025 11: 23am Chief Complaint Admit Date PCI with stenting October 31, 2024 7: 55am Snoring, ANDRIA concern November 07, 2024 8:02pm PCI with stenting November 23, 2024 1 1:15am PCI with stenting December 03, 2024 11:15am SOB December 11, 2024 9:56am Sleep problems January 02, 2025 8:3 8am GROSS HEMATURIA January 08, 2025 9:0 0am ANDRIA January 09, 2025 7:5 9pm 3 M FU January 23, 2025 8:52 am HEMATURIA January 24, 2025 8:45 am nonstemi February 04, 2025 1:0 0pm ANGINA February 04, 2025 1:1 1pm ANGINA February 05, 2025 7:3 8am nonstemi February 05, 2025 12: 55pm palpitations February 06, 2025 8:5 6am Referral Order February 06, 2025 12: 29pm S/P stent, then ER visit after Omer coreas 2024 11:23am PCI with stenting February 12, 2025 9:5 5am GI BLEED February 18, 2025 2:0 5pm GI BLEED February 18, 2025 3:0 4pm GI BLEED February 18, 2025 6:3 0pm GI BLEED February 19, 2025 7:1 9am GI BLEED February 19, 2025 2:2 1pm GI BLEED February 20, 2025 7:2 4am GI BLEED February 20, 2025 3:1 7pm GI BLEED February 21, 2025 7:01am GI BLEED February 21, 2025 8:19am PCI with stenting February 22, 2025 8:06am GI BLEED February 22, 2025 8:13am palpitations February 28, 2025 2:06am Reason for Visit Admit Date Obstructive sleep apnea January 02, 2025 8:38am Smoking greater than 30 pack years January 02, 2025 8:38am Tobacco abuse January 23, 2025 8:52 am Hematuria January 23, 2025 8:52 am History of coronary artery stent placeme nt January 23, 2025 8:52am Hyperlipidemia January 23, 2025 8:52 am Hematuria February 04, 2025 1:0 0pm History of coronary artery stent placeme nt February 04, 2025 1:00pm Hyperlipidemia February 04, 2025 1:0 0pm Non-ST elevation NV (NSTEMI) February 04, 2025 1:00pm Murmur February 07, 2025 11: 23am Palpitations February 07, 2025 11: 23am Tobacco abuse February 07, 2025 11: 23am Fatigue February 07, 2025 11: 23am Hematuria February 07, 2025 11: 23am History of coronary artery stent placeme nt February 07, 2025 11:23am Hyperlipidemia February 07, 2025 11: 23am Acute GI bleeding February 18, 2025 2:0 5pm Chief Complaint Admit Date Snoring, ANDRIA concern November 07, 2024 8:02pm PCI with stenting November 23, 2024 1 1:15am PCI with stenting December 03, 2024 11:15am SOB December 11, 2024 9:56am Sleep problems January 02, 2025 8:3 8am GROSS HEMATURIA January 08, 2025 9:0 0am ANDRIA January 09, 2025 7:5 9pm 3 M FU January 23, 2025 8:52 am HEMATURIA January 24, 2025 8:45 am nonstemi February 04, 2025 1:0 0pm ANGINA February 04, 2025 1:1 1pm ANGINA February 05, 2025 7:3 8am nonstemi February 05, 2025 12: 55pm palpitations February 06, 2025 8:5 6am Referral Order February 06, 2025 12: 29pm S/P stent, then ER visit after Omer coreas 2024 11:23am PCI with stenting February 12, 2025 9:5 5am GI BLEED February 18, 2025 2:0 5pm GI BLEED February 18, 2025 3:0 4pm GI BLEED February 18, 2025 6:3 0pm GI BLEED February 19, 2025 7:1 9am GI BLEED February 19, 2025 2:2 1pm GI BLEED February 20, 2025 7:2 4am GI BLEED February 20, 2025 3:1 7pm GI BLEED February 21, 2025 7:01am GI BLEED February 21, 2025 8:19am PCI with stenting February 22, 2025 8:06am GI BLEED February 22, 2025 8:13am palpitations February 28, 2025 2:06am PALPITATIONS, RAPID HR February 28, 2025 11: 39am SYMPTOMATIC ANEMIA, GI BLEED March 03, 2 025 7:33am SYMPTOMATIC ANEMIA, GI BLEED March 03, 2 025 7:38am Reason for Visit Admit Date Obstructive sleep apnea January 02, 2025 8:38am Smoking greater than 30 pack years January 02, 2025 8:38am Tobacco abuse January 23, 2025 8:52 am Hematuria January 23, 2025 8:52 am History of coronary artery stent placeme nt January 23, 2025 8:52am Hyperlipidemia January 23, 2025 8:52 am Hematuria February 04, 2025 1:0 0pm History of coronary artery stent placeme nt February 04, 2025 1:00pm Hyperlipidemia February 04, 2025 1:0 0pm Non-ST elevation NV (NSTEMI) February 04, 2025 1:00pm Murmur February 07, 2025 11: 23am Palpitations February 07, 2025 11: 23am Tobacco abuse February 07, 2025 11: 23am Fatigue February 07, 2025 11: 23am Hematuria February 07, 2025 11: 23am History of coronary artery stent placeme nt February 07, 2025 11:23am Hyperlipidemia February 07, 2025 11: 23am Acute GI bleeding February 18, 2025 2:0 5pm Anemia March 03, 2025 7:33a m ZAMORANO (dyspnea on exertion) March 03, 2025 7:33am GI bleed March 03, 2025 7:33a m Palpitations March 03, 2025 7:33a m Weakness March 03, 2025 7:33a m Chief Complaint Admit Date Snoring, ANDRIA concern November 07, 2024 8:02pm PCI with stenting November 23, 2024 1 1:15am PCI with stenting December 03, 2024 11:15am SOB December 11, 2024 9:56am Sleep problems January 02, 2025 8:3 8am GROSS HEMATURIA January 08, 2025 9:0 0am ANDRIA January 09, 2025 7:5 9pm 3 M FU January 23, 2025 8:52 am HEMATURIA January 24, 2025 8:45 am nonstemi February 04, 2025 1:0 0pm ANGINA February 04, 2025 1:1 1pm ANGINA February 05, 2025 7:3 8am nonstemi February 05, 2025 12: 55pm palpitations February 06, 2025 8:5 6am Referral Order February 06, 2025 12: 29pm S/P stent, then ER visit after Omer coreas 2024 11:23am PCI with stenting February 12, 2025 9:5 5am GI BLEED February 18, 2025 2:0 5pm GI BLEED February 18, 2025 3:0 4pm GI BLEED February 18, 2025 6:3 0pm GI BLEED February 19, 2025 7:1 9am GI BLEED February 19, 2025 2:2 1pm GI BLEED February 20, 2025 7:2 4am GI BLEED February 20, 2025 3:1 7pm GI BLEED February 21, 2025 7:01am GI BLEED February 21, 2025 8:19am PCI with stenting February 22, 2025 8:06am GI BLEED February 22, 2025 8:13am palpitations February 28, 2025 2:06am PALPITATIONS, RAPID HR February 28, 2025 11: 39am SYMPTOMATIC ANEMIA, GI BLEED March 03, 2 025 7:13am SYMPTOMATIC ANEMIA, GI BLEED March 03, 2 025 7:38am SYMPTOMATIC ANEMIA, GI BLEED March 04, 2 025 7:30am SYMPTOMATIC ANEMIA, GI BLEED March 04 025 4:44pm Reason for Visit Admit Date Obstructive sleep apnea January 02, 2025 8:38am Smoking greater than 30 pack years January 02, 2025 8:38am Tobacco abuse January 23, 2025 8:52 am Hematuria January 23, 2025 8:52 am History of coronary artery stent placeme nt January 23, 2025 8:52am Hyperlipidemia January 23, 2025 8:52 am Hematuria February 04, 2025 1:0 0pm History of coronary artery stent placeme nt February 04, 2025 1:00pm Hyperlipidemia February 04, 2025 1:0 0pm Non-ST elevation NV (NSTEMI) February 04, 2025 1:00pm Murmur February 07, 2025 11: 23am Palpitations February 07, 2025 11: 23am Tobacco abuse February 07, 2025 11: 23am Fatigue February 07, 2025 11: 23am Hematuria February 07, 2025 11: 23am History of coronary artery stent placeme nt February 07, 2025 11:23am Hyperlipidemia February 07, 2025 11: 23am Acute GI bleeding February 18, 2025 2:0 5pm Anemia March 03, 2025 7:13a m ZAMORANO (dyspnea on exertion) March 03, 2025 7:13am GI bleed March 03, 2025 7:13a m Palpitations March 03, 2025 7:13a m Weakness March 03, 2025 7:13a m Acute GI bleeding March 03, 2025 7:13a m Chief Complaint Admit Date PCI with stenting November 23, 2024 1 1:15am PCI with stenting December 03, 2024 11:15am SOB December 11, 2024 9:56am Sleep problems January 02, 2025 8:3 8am GROSS HEMATURIA January 08, 2025 9:0 0am ANDRIA January 09, 2025 7:5 9pm 3 M FU January 23, 2025 8:52 am HEMATURIA January 24, 2025 8:45 am nonstemi February 04, 2025 1:0 0pm ANGINA February 04, 2025 1:1 1pm ANGINA February 05, 2025 7:3 8am nonstemi February 05, 2025 12: 55pm palpitations February 06, 2025 8:5 6am Referral Order February 06, 2025 12: 29pm S/P stent, then ER visit after Omer coreas 2024 11:23am PCI with stenting February 12, 2025 9:5 5am GI BLEED February 18, 2025 2:0 5pm GI BLEED February 18, 2025 3:0 4pm GI BLEED February 18, 2025 6:3 0pm GI BLEED February 19, 2025 7:1 9am GI BLEED February 19, 2025 2:2 1pm GI BLEED February 20, 2025 7:2 4am GI BLEED February 20, 2025 3:1 7pm GI BLEED February 21, 2025 7:01am GI BLEED February 21, 2025 8:19am PCI with stenting February 22, 2025 8:06am GI BLEED February 22, 2025 8:13am palpitations February 28, 2025 2:06am PALPITATIONS, RAPID HR February 28, 2025 11: 39am PALPITATIONS, RAPID HR February 28, 2025 12: 01pm SYMPTOMATIC ANEMIA, GI BLEED March 03, 2 025 7:13am SYMPTOMATIC ANEMIA, GI BLEED March 03, 2 025 7:38am SYMPTOMATIC ANEMIA, GI BLEED March 04, 2 025 7:30am SYMPTOMATIC ANEMIA, GI BLEED March 04, 2 025 4:44pm Pill Cam March 08, 2025 7:59a m FEDERICO COTTO March 08, 2025 8:16a m Reason for Visit Admit Date Obstructive sleep apnea January 02, 2025 8:38am Smoking greater than 30 pack years January 02, 2025 8:38am Tobacco abuse January 23, 2025 8:52 am Hematuria January 23, 2025 8:52 am History of coronary artery stent placeme nt January 23, 2025 8:52am Hyperlipidemia January 23, 2025 8:52 am Hematuria February 04, 2025 1:0 0pm History of coronary artery stent placeme nt February 04, 2025 1:00pm Hyperlipidemia February 04, 2025 1:0 0pm Non-ST elevation NV (NSTEMI) February 04, 2025 1:00pm Murmur February 07, 2025 11: 23am Tobacco abuse February 07, 2025 11: 23am Palpitations February 07, 2025 11: 23am Fatigue February 07, 2025 11: 23am Hematuria February 07, 2025 11: 23am History of coronary artery stent placeme nt February 07, 2025 11:23am Hyperlipidemia February 07, 2025 11: 23am Acute GI bleeding February 18, 2025 2:0 5pm Acute GI bleeding March 03, 2025 7:13a m ZAMORANO (dyspnea on exertion) March 03, 2025 7:13am GI bleed March 03, 2025 7:13a m Palpitations March 03, 2025 7:13a m Weakness March 03, 2025 7:13a m Anemia March 03, 2025 7:13a m Chief Complaint Admit Date PCI with stenting November 23, 2024 1 1:15am PCI with stenting December 03, 2024 11:15am SOB December 11, 2024 9:56am Sleep problems January 02, 2025 8:3 8am GROSS HEMATURIA January 08, 2025 9:0 0am ANDRIA January 09, 2025 7:5 9pm 3 M FU January 23, 2025 8:52 am HEMATURIA January 24, 2025 8:45 am nonstemi February 04, 2025 1:0 0pm ANGINA February 04, 2025 1:1 1pm ANGINA February 05, 2025 7:3 8am nonstemi February 05, 2025 12: 55pm palpitations February 06, 2025 8:5 6am Referral Order February 06, 2025 12: 29pm S/P stent, then ER visit after Omer coreas 2024 11:23am PCI with stenting February 12, 2025 9:5 5am GI BLEED February 18, 2025 2:0 5pm GI BLEED February 18, 2025 3:0 4pm GI BLEED February 18, 2025 6:3 0pm GI BLEED February 19, 2025 7:1 9am GI BLEED February 19, 2025 2:2 1pm GI BLEED February 20, 2025 7:2 4am GI BLEED February 20, 2025 3:1 7pm GI BLEED February 21, 2025 7:01am GI BLEED February 21, 2025 8:19am PCI with stenting February 22, 2025 8:06am GI BLEED February 22, 2025 8:13am palpitations February 28, 2025 2:06am PALPITATIONS, RAPID HR February 28, 2025 11: 39am PALPITATIONS, RAPID HR February 28, 2025 12: 01pm SYMPTOMATIC ANEMIA, GI BLEED March 03, 2 025 7:13am SYMPTOMATIC ANEMIA, GI BLEED March 03, 2 025 7:38am SYMPTOMATIC ANEMIA, GI BLEED March 04, 2 025 7:30am SYMPTOMATIC ANEMIA, GI BLEED March 04, 2 025 4:44pm Pill Cam March 08, 2025 7:59a m [address] COTTO March 08, 2025 8:16a m INT LAB ORDER March 11, 2025 9:11a m Chief Complaint Admit Date PCI with stenting November 23, 2024 1 1:15am PCI with stenting December 03, 2024 11:15am SOB December 11, 2024 9:56am Sleep problems January 02, 2025 8:3 8am GROSS HEMATURIA January 08, 2025 9:0 0am ANDRIA January 09, 2025 7:5 9pm 3 M FU January 23, 2025 8:52 am HEMATURIA January 24, 2025 8:45 am nonstemi February 04, 2025 1:0 0pm ANGINA February 04, 2025 1:1 1pm ANGINA February 05, 2025 7:3 8am nonstemi February 05, 2025 12: 55pm palpitations February 06, 2025 8:5 6am Referral Order February 06, 2025 12: 29pm S/P stent, then ER visit after Omer coreas 2024 11:23am PCI with stenting February 12, 2025 9:5 5am GI BLEED February 18, 2025 2:0 5pm GI BLEED February 18, 2025 3:0 4pm GI BLEED February 18, 2025 6:3 0pm GI BLEED February 19, 2025 7:1 9am GI BLEED February 19, 2025 2:2 1pm GI BLEED February 20, 2025 7:2 4am GI BLEED February 20, 2025 3:1 7pm GI BLEED February 21, 2025 7:01am GI BLEED May 1st, 2025 8:19am PCI with stenting February 22, 2025 8:06am GI BLEED February 22, 2025 8:13am palpitations February 28, 2025 2:06am PALPITATIONS, RAPID HR February 28, 2025 11: 39am PALPITATIONS, RAPID HR February 28, 2025 12: 01pm SYMPTOMATIC ANEMIA, GI BLEED March 03, 2 025 7:13am SYMPTOMATIC ANEMIA, GI BLEED March 03, 2 025 7:38am SYMPTOMATIC ANEMIA, GI BLEED March 04, 2 025 7:30am SYMPTOMATIC ANEMIA, GI BLEED March 04, 2 025 4:44pm Pill Cam March 08, 2025 7:59a m FEDERICO COTTO March 08, 2025 8:16a m INT LAB ORDER March 11, 2025 9:11a m SOB March 18, 2025 4:58a m Reason for Visit Admit Date Obstructive sleep apnea January 02, 2025 8:38am Smoking greater than 30 pack years January 02, 2025 8:38am Tobacco abuse January 23, 2025 8:52 am Hematuria January 23, 2025 8:52 am History of coronary artery stent placeme nt January 23, 2025 8:52am Hyperlipidemia January 23, 2025 8:52 am Hematuria February 04, 2025 1:0 0pm History of coronary artery stent placeme nt February 04, 2025 1:00pm Hyperlipidemia February 04, 2025 1:0 0pm Non-ST elevation NV (NSTEMI) February 04, 2025 1:00pm Murmur February 07, 2025 11: 23am Tobacco abuse February 07, 2025 11: 23am Palpitations February 07, 2025 11: 23am Fatigue February 07, 2025 11: 23am Hematuria February 07, 2025 11: 23am History of coronary artery stent placeme nt February 07, 2025 11:23am Hyperlipidemia February 07, 2025 11: 23am Acute GI bleeding February 18, 2025 2:0 5pm Anemia March 03, 2025 7:13a m Acute GI bleeding March 03, 2025 7:13a m ZAMORANO (dyspnea on exertion) March 03, 2025 7:13am GI bleed March 03, 2025 7:13a m Palpitations March 03, 2025 7:13a m Weakness March 03, 2025 7:13a m Chief Complaint Admit Date PCI with stenting November 23, 2024 1 1:15am PCI with stenting December 03, 2024 11:15am SOB December 11, 2024 9:56am Sleep problems January 02, 2025 8:3 8am GROSS HEMATURIA January 08, 2025 9:0 0am ANDRIA January 09, 2025 7:5 9pm 3 M FU January 23, 2025 8:52 am HEMATURIA January 24, 2025 8:45 am nonstemi February 04, 2025 1:0 0pm ANGINA February 04, 2025 1:1 1pm ANGINA February 05, 2025 7:3 8am nonstemi February 05, 2025 12: 55pm palpitations February 06, 2025 8:5 6am Referral Order February 06, 2025 12: 29pm S/P stent, then ER visit after Omer coreas 2024 11:23am PCI with stenting February 12, 2025 9:5 5am GI BLEED February 18, 2025 2:0 5pm GI BLEED February 18, 2025 3:0 4pm GI BLEED February 18, 2025 6:3 0pm GI BLEED February 19, 2025 7:1 9am GI BLEED February 19, 2025 2:2 1pm GI BLEED February 20, 2025 7:2 4am GI BLEED February 20, 2025 3:1 7pm GI BLEED February 21, 2025 7:01am GI BLEED February 21, 2025 8:19am PCI with stenting February 22, 2025 8:06am GI BLEED February 22, 2025 8:13am palpitations February 28, 2025 2:06am PALPITATIONS, RAPID HR February 28, 2025 11: 39am PALPITATIONS, RAPID HR February 28, 2025 12: 01pm SYMPTOMATIC ANEMIA, GI BLEED March 03, 2 025 7:13am SYMPTOMATIC ANEMIA, GI BLEED March 03, 2 025 7:38am SYMPTOMATIC ANEMIA, GI BLEED March 04, 2 025 7:30am SYMPTOMATIC ANEMIA, GI BLEED March 04, 2 025 4:44pm Pill Cam March 08, 2025 7:59a m FEDERICO COTTO March 08, 2025 8:16a m INT LAB ORDER March 11, 2025 9:11a m SOB March 18, 2025 4:58a m 3 MO - LABS March 20, 2025 10:18 am Anemia March 20, 2025 2:22p m Reason for Visit Admit Date Obstructive sleep apnea January 02, 2025 8:38am Smoking greater than 30 pack years January 02, 2025 8:38am Tobacco abuse January 23, 2025 8:52 am Hematuria January 23, 2025 8:52 am History of coronary artery stent placeme nt January 23, 2025 8:52am Hyperlipidemia January 23, 2025 8:52 am Hematuria February 04, 2025 1:0 0pm History of coronary artery stent placeme nt February 04, 2025 1:00pm Hyperlipidemia February 04, 2025 1:0 0pm Non-ST elevation NV (NSTEMI) February 04, 2025 1:00pm Murmur February 07, 2025 11: 23am Tobacco abuse February 07, 2025 11: 23am Palpitations February 07, 2025 11: 23am Fatigue February 07, 2025 11: 23am Hematuria February 07, 2025 11: 23am History of coronary artery stent placeme nt February 07, 2025 11:23am Hyperlipidemia February 07, 2025 11: 23am Acute GI bleeding February 18, 2025 2:0 5pm Anemia March 03, 2025 7:13a m Acute GI bleeding March 03, 2025 7:13a m ZAMORANO (dyspnea on exertion) March 03, 2025 7:13am GI bleed March 03, 2025 7:13a m Palpitations March 03, 2025 7:13a m Weakness March 03, 2025 7:13a m Anemia March 20, 2025 2:22p m Chief Complaint Admit Date PCI with stenting December 03, 2024 11:15am SOB December 11, 2024 9:56am Sleep problems January 02, 2025 8:3 8am GROSS HEMATURIA January 08, 2025 9:0 0am ANDRIA January 09, 2025 7:5 9pm 3 M FU January 23, 2025 8:52 am HEMATURIA January 24, 2025 8:45 am nonstemi February 04, 2025 1:0 0pm ANGINA February 04, 2025 1:1 1pm ANGINA February 05, 2025 7:3 8am nonstemi February 05, 2025 12: 55pm palpitations February 06, 2025 8:5 6am Referral Order February 06, 2025 12: 29pm S/P stent, then ER visit after Omer coreas 2024 11:23am PCI with stenting February 12, 2025 9:5 5am GI BLEED February 18, 2025 2:0 5pm GI BLEED February 18, 2025 3:0 4pm GI BLEED February 18, 2025 6:3 0pm GI BLEED February 19, 2025 7:1 9am GI BLEED February 19, 2025 2:2 1pm GI BLEED February 20, 2025 7:2 4am GI BLEED February 20, 2025 3:1 7pm GI BLEED February 21, 2025 7:01am GI BLEED February 21, 2025 8:19am PCI with stenting February 22, 2025 8:06am GI BLEED February 22, 2025 8:13am palpitations February 28, 2025 2:06am PALPITATIONS, RAPID HR February 28, 2025 11: 39am PALPITATIONS, RAPID HR February 28, 2025 12: 01pm SYMPTOMATIC ANEMIA, GI BLEED March 03, 2 025 7:13am SYMPTOMATIC ANEMIA, GI BLEED March 03, 2 025 7:38am SYMPTOMATIC ANEMIA, GI BLEED March 04, 2 025 7:30am SYMPTOMATIC ANEMIA, GI BLEED March 04, 2 025 4:44pm Pill Cam March 08, 2025 7:59a m FEDERICO AQUINO FRIEND March 08, 2025 8:16a m INT LAB ORDER March 11, 2025 9:11a m SOB March 18, 2025 4:58a m 3 MO - LABS March 20, 2025 10:18 am Anemia March 20, 2025 2:22p m Chief Complaint Admit Date SOB December 11, 2024 9:56am Sleep problems January 02, 2025 8:3 8am GROSS HEMATURIA January 08, 2025 9:0 0am ANDRIA January 09, 2025 7:5 9pm 3 M FU January 23, 2025 8:52 am HEMATURIA January 24, 2025 8:45 am nonstemi February 04, 2025 1:0 0pm ANGINA February 04, 2025 1:1 1pm ANGINA February 05, 2025 7:3 8am nonstemi February 05, 2025 12: 55pm palpitations February 06, 2025 8:5 6am Referral Order February 06, 2025 12: 29pm S/P stent, then ER visit after Omer coreas 2024 11:23am PCI with stenting February 12, 2025 9:5 5am GI BLEED February 18, 2025 2:0 5pm GI BLEED February 18, 2025 3:0 4pm GI BLEED February 18, 2025 6:3 0pm GI BLEED February 19, 2025 7:1 9am GI BLEED February 19, 2025 2:2 1pm GI BLEED February 20, 2025 7:2 4am GI BLEED February 20, 2025 3:1 7pm GI BLEED February 21, 2025 7:01am GI BLEED February 21, 2025 8:19am PCI with stenting February 22, 2025 8:06am GI BLEED February 22, 2025 8:13am palpitations February 28, 2025 2:06am PALPITATIONS, RAPID HR February 28, 2025 11: 39am PALPITATIONS, RAPID HR February 28, 2025 12: 01pm SYMPTOMATIC ANEMIA, GI BLEED March 03, 2 025 7:13am SYMPTOMATIC ANEMIA, GI BLEED March 03, 2 025 7:38am SYMPTOMATIC ANEMIA, GI BLEED March 04, 2 025 7:30am SYMPTOMATIC ANEMIA, GI BLEED March 04, 2 025 4:44pm Pill Cam March 08, 2025 7:59a m FEDERICO AQUINO FRIEND March 08, 2025 8:16a m INT LAB ORDER March 11, 2025 9:11a m SOB March 18, 2025 4:58a m 3 MO - LABS March 20, 2025 10:18 am Anemia March 20, 2025 2:22p m PCI with stenting March 25, 2025 9:06a m SEE NOTES April 05, 2025 11:2 1am Chief Complaint Admit Date Sleep problems January 02, 2025 8:3 8am GROSS HEMATURIA January 08, 2025 9:0 0am ANDRIA January 09, 2025 7:5 9pm 3 M FU January 23, 2025 8:52 am HEMATURIA January 24, 2025 8:45 am nonstemi February 04, 2025 1:0 0pm ANGINA February 04, 2025 1:1 1pm ANGINA February 05, 2025 7:3 8am nonstemi February 05, 2025 12: 55pm palpitations February 06, 2025 8:5 6am Referral Order February 06, 2025 12: 29pm S/P stent, then ER visit after Omer coreas 2024 11:23am PCI with stenting February 12, 2025 9:5 5am GI BLEED February 18, 2025 2:0 5pm GI BLEED February 18, 2025 3:0 4pm GI BLEED February 18, 2025 6:3 0pm GI BLEED February 19, 2025 7:1 9am GI BLEED February 19, 2025 2:2 1pm GI BLEED February 20, 2025 7:2 4am GI BLEED February 20, 2025 3:1 7pm GI BLEED February 21, 2025 7:01am GI BLEED February 21, 2025 8:19am PCI with stenting February 22, 2025 8:06am GI BLEED February 22, 2025 8:13am palpitations February 28, 2025 2:06am PALPITATIONS, RAPID HR February 28, 2025 11: 39am PALPITATIONS, RAPID HR February 28, 2025 12: 01pm SYMPTOMATIC ANEMIA, GI BLEED March 03, 2 025 7:13am SYMPTOMATIC ANEMIA, GI BLEED March 03, 2 025 7:38am SYMPTOMATIC ANEMIA, GI BLEED March 04, 2 025 7:30am SYMPTOMATIC ANEMIA, GI BLEED March 04, 2 025 4:44pm Pill Cam March 08, 2025 7:59a m FEDERICO COTTO March 08, 2025 8:16a m INT LAB ORDER March 11, 2025 9:11a m SOB March 18, 2025 4:58a m 3 MO - LABS March 20, 2025 10:18 am Anemia March 20, 2025 2:22p m PCI with stenting March 25, 2025 9:06a m SEE NOTES April 05, 2025 11:2 1am Reason for Visit Admit Date Obstructive sleep apnea January 02, 2025 8:38am Smoking greater than 30 pack years January 02, 2025 8:38am Tobacco abuse January 23, 2025 8:52 am Hematuria January 23, 2025 8:52 am History of coronary artery stent placeme nt January 23, 2025 8:52am Hyperlipidemia January 23, 2025 8:52 am Hematuria February 04, 2025 1:0 0pm History of coronary artery stent placeme nt February 04, 2025 1:00pm Hyperlipidemia February 04, 2025 1:0 0pm Non-ST elevation NV (NSTEMI) February 04, 2025 1:00pm Murmur February 07, 2025 11: 23am Tobacco abuse February 07, 2025 11: 23am Palpitations February 07, 2025 11: 23am Fatigue February 07, 2025 11: 23am Hematuria February 07, 2025 11: 23am History of coronary artery stent placeme nt February 07, 2025 11:23am Hyperlipidemia February 07, 2025 11: 23am Acute GI bleeding February 18, 2025 2:0 5pm Anemia March 03, 2025 7:13a m Acute GI bleeding March 03, 2025 7:13a m ZAMORANO (dyspnea on exertion) March 03, 2025 7:13am GI bleed March 03, 2025 7:13a m Palpitations March 03, 2025 7:13a m Weakness March 03, 2025 7:13a m Anemia March 20, 2025 2:22p m Anemia April 05, 2025 11:2 1am Atherosclerosis of coronary artery of [place] heart without angina pectoris April 05, 2025 11:21am Bilateral lower extremity edema March 11:21am Cardiac murmur April 05, 2025 11:2 1am Chief Complaint Admit Date Sleep problems January 02, 2025 8:3 8am GROSS HEMATURIA January 08, 2025 9:0 0am ANDRIA January 09, 2025 7:5 9pm 3 M FU January 23, 2025 8:52 am HEMATURIA January 24, 2025 8:45 am nonstemi February 04, 2025 1:0 0pm ANGINA February 04, 2025 1:1 1pm ANGINA February 05, 2025 7:3 8am nonstemi February 05, 2025 12: 55pm palpitations February 06, 2025 8:5 6am Referral Order February 06, 2025 12: 29pm S/P stent, then ER visit after Omer coreas 2024 11:23am PCI with stenting February 12, 2025 9:5 5am GI BLEED February 18, 2025 2:0 5pm GI BLEED February 18, 2025 3:0 4pm GI BLEED February 18, 2025 6:3 0pm GI BLEED February 19, 2025 7:1 9am GI BLEED February 19, 2025 2:2 1pm GI BLEED February 20, 2025 7:2 4am GI BLEED February 20, 2025 3:1 7pm GI BLEED February 21, 2025 7:01am GI BLEED February 21, 2025 8:19am PCI with stenting February 22, 2025 8:06am GI BLEED February 22, 2025 8:13am palpitations February 28, 2025 2:06am PALPITATIONS, RAPID HR February 28, 2025 11: 39am PALPITATIONS, RAPID HR February 28, 2025 12: 01pm SYMPTOMATIC ANEMIA, GI BLEED March 03, 2 025 7:13am SYMPTOMATIC ANEMIA, GI BLEED March 03, 2 025 7:38am SYMPTOMATIC ANEMIA, GI BLEED March 04, 2 025 7:30am SYMPTOMATIC ANEMIA, GI BLEED March 04, 2 025 4:44pm Pill Cam March 08, 2025 7:59a m FEDERICO COTTO March 08, 2025 8:16a m INT LAB ORDER March 11, 2025 9:11a m SOB March 18, 2025 4:58a m 3 MO - LABS March 20, 2025 10:18 am Anemia March 20, 2025 2:22p m PCI with stenting March 25, 2025 9:06a m SEE NOTES April 05, 2025 11:2 1am Test Results April 23, 2025 11:20 am Reason for Visit Admit Date Obstructive sleep apnea January 02, 2025 8:38am Smoking greater than 30 pack years January 02, 2025 8:38am Tobacco abuse January 23, 2025 8:52 am Hematuria January 23, 2025 8:52 am History of coronary artery stent placeme nt January 23, 2025 8:52am Hyperlipidemia January 23, 2025 8:52 am Hematuria February 04, 2025 1:0 0pm History of coronary artery stent placeme nt February 04, 2025 1:00pm Hyperlipidemia February 04, 2025 1:0 0pm Non-ST elevation NV (NSTEMI) February 04, 2025 1:00pm Murmur February 07, 2025 11: 23am Tobacco abuse February 07, 2025 11: 23am Palpitations February 07, 2025 11: 23am Fatigue February 07, 2025 11: 23am Hematuria February 07, 2025 11: 23am History of coronary artery stent placeme nt February 07, 2025 11:23am Hyperlipidemia February 07, 2025 11: 23am Acute GI bleeding February 18, 2025 2:0 5pm Anemia March 03, 2025 7:13a m Acute GI bleeding March 03, 2025 7:13a m ZAMORANO (dyspnea on exertion) March 03, 2025 7:13am GI bleed March 03, 2025 7:13a m Palpitations March 03, 2025 7:13a m Weakness March 03, 2025 7:13a m Anemia March 20, 2025 2:22p m Anemia April 05, 2025 11:2 1am Atherosclerosis of coronary artery of [place] heart without angina pectoris April 05, 2025 11:21am Bilateral lower extremity edema March 11:21am Cardiac murmur April 05, 2025 11:2 1am Anemia April 23, 2025 11:20 am Additional Source Comments INFORMATION SOURCE (unrecogn ized section and content) DATE CREATED AUTHOR 12/26/2021 [facility] ([place]) DATE CREATED AUTHOR AUTHOR'S ORGANIZ ATION 03/24/2025 [facility] DATE CREATED AUTHOR AUTHOR'S ORGANIZ ATION 03/28/2025 [facility] DATE CREATED AUTHOR AUTHOR'S ORGANIZ ATION 04/17/2025 [facility] DATE CREATED AUTHOR AUTHOR'S ORGANIZ ATION 04/24/2025 [facility] Patient Care team informatio n (unrecognized section and content) Team Status: Active Member Role Status Dates Dr. Florin Bailey , DO Primary Care Provider Active Team Status: Inactive Member Role Status Dates Dr. Florin Bailey DO Primary Care Provider Active Start: October 26, 2024 End: October 26, 2024 Dr. Florin Bailey DO Referring Provider Active Start: October 26, 2024 End: October 26, 2024 Aung Franklin GUM COOK, GUM COOK-C Attending Provider Active S tart: October 26, 2024 End: October 26, 2024 Team Status: Inactive Member Role Status Dates Dr. Florin Bailey DO Primary Care Provider Active Start: October 31, 2024 End: October 31, 2024 Dr. Adan Galindo MD Attending Provider Activ e Start: October 31, 2024 End: October 31, 2024 Dr. Adan Galindo MD Referring Provider Activ e Start: October 31, 2024 End: October 31, 2024 Team Status: Inactive Member Role Status Dates Dr. Florin Bailey DO Primary Care Provider Active Start: November 07, 2024 End: November 07, 2024 Aung Franklin GUM COOK, GUM COOK-C Attending Provider Active S tart: November 07, 2024 End: November 07, 2024 Aung Franklin GUM COOK, GUM COOK-C Referring Provider Active S tart: November 07, 2024 End: November 07, 2024 Team Status: Inactive Member Role Status Dates Dr. Florin Bailey DO Primary Care Provider Active Start: November 23, 2024 End: November 23, 2024 Dr. Adan Galindo MD Attending Provider Activ e Start: November 23, 2024 End: November 23, 2024 Dr. Adan Galindo MD Referring Provider Activ e Start: November 23, 2024 End: November 23, 2024 Team Status: Inactive Member Role Status Dates Dr. Florin Bailey DO Primary Care Provider Active Start: December 03, 2024 End: December 21, 2024 Dr. Adan Galindo MD Attending Provider Activ e Start: December 03, 2024 End: December 21, 2024 Dr. Adan Galindo MD Referring Provider Activ e Start: December 03, 2024 End: December 21, 2024 Team Status: Inactive Member Role Status Dates Dr. Florin Bailey DO Primary Care Provider Active Start: December 11, 2024 End: December 11, 2024 Dr. Jak Sheikh MD Attending Provider Active S tart: December 11, 2024 End: December 11, 2024 Dr. Jak Sheikh MD Emergency Provider Active S tart: December 11, 2024 End: December 11, 2024 Team Status: Inactive Member Role Status Dates Dr. Florin Bailey DO Primary Care Provider Active Start: January 02, 2025 End: January 02, 2025 Nohemy Banks NP-C Attending Provider Active Start: January 02, 2025 End: January 02, 2025 Aung Franklin NP, GUM COOK-C Referring Provider Active S tart: January 02, 2025 End: January 02, 2025 Team Status: Active Member Role Status Dates Dr. Florin Bailey DO Primary Care Provider Active Start: January 08, 2025 Dr. Trey Eduardo MD Attending Provider Active Start: January 08, 2025 Dr. Trey Eduardo MD Referring Provider Active Start: January 08, 2025 Team Status: Inactive Member Role Status Dates Dr. Florin Bailey DO Primary Care Provider Active Start: January 08, 2025 End: January 08, 2025 Dr. Roxanne Olivas MD Attending Provider Active Start: January 08, 2025 End: January 08, 2025 Team Status: Inactive Member Role Status Dates Dr. Florin Bailey DO Primary Care Provider Active Start: January 09, 2025 End: January 09, 2025 Nohemy Banks NP-C Attending Provider Active Start: January 09, 2025 End: January 09, 2025 Team Status: Inactive Member Role Status Dates Dr. Florin Bailey DO Primary Care Provider Active Start: January 23, 2025 End: January 23, 2025 Dr. Florin Bailey DO Referring Provider Active Start: January 23, 2025 End: January 23, 2025 Aung Franklin NP, GUM COOK-C Attending Provider Active S tart: January 23, 2025 End: January 23, 2025 Team Status: Inactive Member Role Status Dates Dr. Florin Bailey DO Primary Care Provider Active Start: January 24, 2025 End: January 24, 2025 Dr. Roxanne Olivas MD Attending Provider Active Start: January 24, 2025 End: January 24, 2025 Dr. Roxanne Olivas MD Referring Provider Active Start: January 24, 2025 End: January 24, 2025 Team Status: Inactive Member Role Status Dates Dr. Florin Bailey DO Primary Care Provider Active Start: February 04, 2025 End: February 05, 2025 Dr. Orlando Abdi MD Emergency Provider Active Start: February 04, 2025 End: February 05, 2025 Dr. Estrella Hanna MD Admit Provider Active St art: February 04, 2025 End: February 05, 2025 Dr. Estrella Hanna MD Attending Provider Active Start: February 04, 2025 End: February 05, 2025 Dr. Estrella Hanna MD Other Provider Active St art: February 04, 2025 Team Status: Active Member Role Status Dates Dr. Florin Bailey DO Primary Care Provider Active Start: February 04, 2025 Dr. Orlando Abdi MD Emergency Provider Active Start: February 04, 2025 Dr. Estrella Hanna MD Admit Provider Active St art: February 04, 2025 Dr. Estrella Hanna MD Other Provider Active St art: February 04, 2025 Dr. Deondre Leavitt MD Attending Provider Active Start: February 04, 2025 Team Status: Active Member Role Status Dates Dr. Florin Bailey DO Primary Care Provider Active Start: February 05, 2025 Dr. Orlando Abdi MD Emergency Provider Active Start: February 05, 2025 Dr. Estrella Hanna MD Admit Provider Active St art: February 05, 2025 Dr. Estrella Hanna MD Other Provider Active St art: February 05, 2025 Dr. Deondre Leavitt MD Attending Provider Active Start: February 05, 2025 Team Status: Active Member Role Status Dates Dr. Florin Bailey DO Primary Care Provider Active Start: February 05, 2025 Dr. Orlando Abdi MD Emergency Provider Active Start: February 05, 2025 Dr. Estrella Hanna MD Admit Provider Active St art: February 05, 2025 Dr. Estrella Hanna MD Attending Provider Active Start: February 05, 2025 Dr. Estrella Hanna MD Other Provider Active St art: February 05, 2025 Team Status: Inactive Member Role Status Dates Dr. Florin Bailey DO Primary Care Provider Active Start: February 06, 2025 End: February 06, 2025 Dr. Inderjit Gilmore DO Attending Provider Active Start: February 06, 2025 End: February 06, 2025 Dr. Inderjit Gilmore DO Emergency Provider Active Start: February 06, 2025 End: February 06, 2025 Team Status: Active Member Role Status Dates Dr. Florin Bailey DO Primary Care Provider Active Start: February 06, 2025 Dr. Adan Galindo MD Attending Provider Activ e Start: February 06, 2025 Team Status: Inactive Member Role Status Dates Dr. Florin Bailey DO Primary Care Provider Active Start: February 07, 2025 End: February 07, 2025 Dr. Florin Bailey DO Referring Provider Active Start: February 07, 2025 End: February 07, 2025 Luz Mullen NP, GUM COOK-C Attending Provider Active Start: February 07, 2025 End: February 07, 2025 Team Status: Inactive Member Role Status Dates Dr. Florin Bailey DO Primary Care Provider Active Start: February 12, 2025 End: February 12, 2025 Dr. Adan Galindo MD Attending Provider Activ e Start: February 12, 2025 End: February 12, 2025 Dr. Adan Galindo MD Referring Provider Activ e Start: February 12, 2025 End: February 12, 2025 Team Status: Active Member Role Status Dates Dr. rBanden Akers MD Primary Care Provider Active Start: October 09, 2024 Dr. Piyush Sanchez MD Emergency Provider Active Sta rt: October 09, 2024 Dr. Adan Galindo MD Attending Provider Activ e Start: October 09, 2024 Dr. Adan Galindo MD Referring Provider Activ e Start: October 09, 2024 Dr. Tawanna Holder MD Admit Provider Active Star t: October 09, 2024 Dr. Tawanna Hloder MD Other Provider Active Star t: October 09, 2024 Team Status: Inactive Member Role Status Dates Dr. Piyush Sanchez MD Emergency Provider Active Sta rt: October 09, 2024 End: October 11, 2024 Dr. Adan Galindo MD Referring Provider Activ e Start: October 09, 2024 End: October 11, 2024 Dr. Adan Galindo MD Other Provider Active Start: October 09, 2024 End: October 11, 2024 Dr. Tawanna Holder MD Admit Provider Active Star t: October 09, 2024 End: October 11, 2024 Dr. Tawanna Holder MD Other Provider Active Star t: October 09, 2024 End: October 11, 2024 Dr. Florin Bailey DO Primary Care Provider Active Start: October 09, 2024 End: October 11, 2024 Dr. Kraig Feliz DO Attending Provider Active Start: October 09, 2024 End: October 11, 2024 Team Status: Active Member Role Status Dates Dr. Florin Bailey DO Primary Care Provider Active Start: October 10, 2024 Dr. Alfredito Saucedo MD Attending Provider Active S tart: October 10, 2024 Team Status: Active Member Role Status Dates Dr. Piyush Sanchez MD Emergency Provider Active Sta rt: October 10, 2024 Dr. Adan Galindo MD Other Provider Active Start: October 10, 2024 Dr. Tawanna Holder MD Admit Provider Active Star t: October 10, 2024 Dr. Tawanna Holder MD Other Provider Active Star t: October 10, 2024 Dr. Florin Bailey DO Primary Care Provider Active Start: October 10, 2024 Dr. Kraig Feliz DO Attending Provider Active Start: October 10, 2024 Dr. Kraig Feliz DO Other Provider Active Start: October 10, 2024 Team Status: Active Member Role Status Dates Dr. Piyush Sanchez MD Emergency Provider Active Sta rt: October 11, 2024 Dr. Adan Galindo MD Referring Provider Activ e Start: October 11, 2024 Dr. Adan Galindo MD Other Provider Active Start: October 11, 2024 Dr. Tawanna Holder MD Admit Provider Active Star t: October 11, 2024 Dr. Tawanna Holder MD Other Provider Active Star t: October 11, 2024 Dr. Florin Bailey DO Primary Care Provider Active Start: October 11, 2024 Dr. Kraig Feliz DO Other Provider Active Start: October 11, 2024 Dr. Alfredito Saucedo MD Attending Provider Active S tart: October 11, 2024 Team Status: Active Member Role Status Dates Dr. Piyush Sanchez MD Emergency Provider Active Sta rt: October 11, 2024 Dr. Adan Galindo MD Other Provider Active Start: October 11, 2024 Dr. Tawanna Holder MD Admit Provider Active Star t: October 11, 2024 Dr. Tawanna Holder MD Other Provider Active Star t: October 11, 2024 Dr. Florin Bailey DO Primary Care Provider Active Start: October 11, 2024 Dr. Kraig Feliz DO Attending Provider Active Start: October 11, 2024 Dr. Kraig Feliz , DO Other Provider Active Start: October 11, 2024 Team Status: Active Member Role Status Dates Dr. Florin Bailey DO Primary Care Provider Active Start: January 09, 2025 Nohemy Banks NP-C Attending Provider Active Start: January 09, 2025 Team Status: Active Member Role Status Dates Dr. Florin Bailey DO Primary Care Provider Active Start: February 04, 2025 Dr. Orlando Abdi MD Emergency Provider Active Start: February 04, 2025 Dr. Estrella Hanna MD Admit Provider Active St art: February 04, 2025 Dr. Estrella Hanna MD Attending Provider Active Start: February 04, 2025 Team Status: Inactive Member Role Status Dates Dr. Florin Bailey DO Primary Care Provider Active Start: February 06, 2025 End: February 06, 2025 Dr. Inderjit Gilmore DO Emergency Provider Active Start: February 06, 2025 End: February 06, 2025 Team Status: Inactive Member Role Status Dates Dr. Florin Bailey DO Primary Care Provider Active Start: February 18, 2025 End: February 22, 2025 Dr. Devon Yousif DO Emergency Provider Active Start : February 18, 2025 End: February 22, 2025 Dr. Jakub Fischer MD Admit Provider Active Start: February 18, 2025 End: February 22, 2025 Dr. Jakub Fischer MD Referring Provider Active Start: February 18, 2025 End: February 22, 2025 Dr. Jakub Fischer MD Other Provider Active Start: February 18, 2025 End: February 22, 2025 Dr. Ivan Cotto , DO Other Provider Active St art: February 18, 2025 End: February 22, 2025 Dr. Josh Peñaloza MD Attending Provider Active Start: February 18, 2025 End: February 22, 2025 Team Status: Active Member Role Status Dates Dr. Florin Bailey , Primary Care Provider Active Start: February 18, 2025 Dr. Devon Yousif , DO Emergency Provider Active Start : February 18, 2025 Dr. Jakub Fischer MD Admit Provider Active Start: February 18, 2025 Dr. Jakub Fischer MD Attending Provider Active Start: February 18, 2025 Dr. Jakub Fischer MD Other Provider Active Start: February 18, 2025 Dr. Ivan Cotto DO Other Provider Active St art: February 18, 2025 Team Status: Active Member Role Status Dates Dr. Florin Bailey , Primary Care Provider Active Start: February 18, 2025 Dr. Devon Yousif , Emergency Provider Active Start : February 18, 2025 Dr. Jakub Fischer MD Admit Provider Active Start: February 18, 2025 Dr. Jakub Fischer MD Referring Provider Active Start: February 18, 2025 Dr. Jakub Fischer MD Other Provider Active Start: February 18, 2025 Dr. Ivan Cotto DO Attending Provider Active Start: February 18, 2025 Dr. Ivan Cotto DO Other Provider Active St art: February 18, 2025 Dr. Josh Peñaloza MD Other Provider Active Star t: February 18, 2025 Team Status: Active Member Role Status Dates Dr. Florin Bailey DO Primary Care Provider Active Start: February 19, 2025 Dr. Devon Yousif DO Emergency Provider Active Start : February 19, 2025 Dr. Jakub Fischer MD Admit Provider Active Start: February 19, 2025 Dr. Jakub Fischer MD Other Provider Active Start: February 19, 2025 Dr. Ivan Cotto DO Other Provider Active St art: February 19, 2025 Dr. Josh Peñaloza MD Attending Provider Active Start: February 19, 2025 Dr. Josh Peñaloza MD Other Provider Active Star t: February 19, 2025 Team Status: Active Member Role Status Dates Dr. Florin Bailey DO Primary Care Provider Active Start: February 19, 2025 Dr. Adan Galindo MD Attending Provider Activ e Start: February 19, 2025 Team Status: Active Member Role Status Dates Dr. Florin Bailey DO Primary Care Provider Active Start: February 19, 2025 Dr. Devon Yousif , DO Emergency Provider Active Start : February 19, 2025 Dr. Jakub Fischer MD Admit Provider Active Start: February 19, 2025 Dr. Jakub Fischer MD Referring Provider Active Start: February 19, 2025 Dr. Jakub Fischer MD Other Provider Active Start: February 19, 2025 Dr. Ivan Cotto DO Attending Provider Active Start: February 19, 2025 Dr. Ivna Cotto DO Other Provider Active St art: February 19, 2025 Dr. Josh Peñaloza MD Other Provider Active Star t: February 19, 2025 Team Status: Active Member Role Status Dates Dr. Florin Bailey DO Primary Care Provider Active Start: February 20, 2025 Dr. Devon Yousif DO Emergency Provider Active Start : February 20, 2025 Dr. Jakub Fischer MD Admit Provider Active Start: February 20, 2025 Dr. Jakub Fischer MD Other Provider Active Start: February 20, 2025 Dr. Ivan Cotto DO Other Provider Active St art: February 20, 2025 Dr. Josh Peñaloza MD Attending Provider Active Start: February 20, 2025 Dr. Josh Peñaloza MD Other Provider Active Star t: February 20, 2025 Team Status: Active Member Role Status Dates Dr. Florin Bailey DO Primary Care Provider Active Start: February 20, 2025 Dr. Devon Yousif DO Emergency Provider Active Start : February 20, 2025 Dr. Jakub Fischer MD Admit Provider Active Start: February 20, 2025 Dr. Jakub Fischer MD Referring Provider Active Start: February 20, 2025 Dr. Jakub Fischer MD Other Provider Active Start: February 20, 2025 Dr. Ivan Cotto DO Attending Provider Active Start: February 20, 2025 Dr. Ivan Cotto DO Other Provider Active St art: February 20, 2025 Dr. Josh Peñaloza MD Other Provider Active Star t: February 20, 2025 Team Status: Active Member Role Status Dates Dr. Florin Bailey , Primary Care Provider Active Start: February 21, 2025 Dr. Devon Yousif , Emergency Provider Active Start : February 21, 2025 Dr. Jakub Fischer MD Admit Provider Active Start: February 21, 2025 Dr. Jakub Fischer MD Referring Provider Active Start: February 21, 2025 Dr. Jakub Fischer MD Other Provider Active Start: February 21, 2025 Dr. Ivan Cotto DO Attending Provider Active Start: February 21, 2025 Dr. Ivan Cotto , DO Other Provider Active St art: February 21, 2025 Dr. Josh Peñaloza MD Other Provider Active Star t: February 21, 2025 Team Status: Active Member Role Status Dates Dr. Florin Bailey DO Primary Care Provider Active Start: February 21, 2025 Dr. Devon Yousif DO Emergency Provider Active Start : February 21, 2025 Dr. Jakub Fischer MD Admit Provider Active Start: February 21, 2025 Dr. Jakub Fischer MD Other Provider Active Start: February 21, 2025 Dr. Ivan Cotto DO Other Provider Active St art: February 21, 2025 Dr. Josh Peñaloza MD Attending Provider Active Start: February 21, 2025 Dr. Josh Peñaloza MD Other Provider Active Star t: February 21, 2025 Team Status: Active Member Role Status Dates Dr. Florin Bailey DO Primary Care Provider Active Start: February 22, 2025 Dr. Adan Galindo MD Attending Provider Activ e Start: February 22, 2025 Dr. Adan Galindo MD Referring Provider Activ e Start: February 22, 2025 Team Status: Active Member Role Status Dates Dr. Florin Bailey DO Primary Care Provider Active Start: February 22, 2025 Dr. Devon Yousif DO Emergency Provider Active Start : February 22, 2025 Dr. Jakub Fischer MD Admit Provider Active Start: February 22, 2025 Dr. Jakub Fischer MD Other Provider Active Start: February 22, 2025 Dr. Ivan Cotto DO Other Provider Active St art: February 22, 2025 Dr. Josh Peñaloza MD Attending Provider Active Start: February 22, 2025 Dr. Josh Peñaloza MD Other Provider Active Star t: February 22, 2025 Team Status: Inactive Member Role Status Dates Dr. Florin Bailey DO Primary Care Provider Active Start: February 28, 2025 End: February 28, 2025 Dr. Orlando Abdi MD Emergency Provider Active Start: February 28, 2025 End: February 28, 2025 Team Status: Active Member Role Status Dates Dr. Florin Bailey DO Primary Care Provider Active Start: February 28, 2025 Luz Mullen GUM COOK, GUM COOK-C Attending Provider Active Start: February 28, 2025 Luz Mullen GUM COOK, GUM COOK-C Referring Provider Active Start: February 28, 2025 Team Status: Active Member Role Status Dates Dr. Florin Bailey DO Primary Care Provider Active Start: March 03, 2025 Dr. Swati Huff DO Emergency Provider Active Start: March 03, 2025 Dr. Clyde Long DO Admit Provider Active Star t: March 03, 2025 Dr. Clyde Long DO Attending Provider Active Start: March 03, 2025 Team Status: Active Member Role Status Dates Dr. Florin Bailey DO Primary Care Provider Active Start: March 03, 2025 Dr. Swati Huff DO Emergency Provider Active Start: March 03, 2025 Dr. Clyde Long DO Admit Provider Active Star t: March 03, 2025 Dr. Clyde Long DO Attending Provider Active Start: March 03, 2025 Dr. Clyde Long DO Other Provider Active Star t: March 03, 2025 Team Status: Inactive Member Role Status Dates Dr. Florin Bailey DO Primary Care Provider Active Start: February 28, 2025 End: February 28, 2025 Dr. Orlando Abdi MD Attending Provider Active Start: February 28, 2025 End: February 28, 2025 Dr. Orlando Abdi MD Emergency Provider Active Start: February 28, 2025 End: February 28, 2025 Team Status: Inactive Member Role Status Dates Dr. Florin Bailey , Primary Care Provider Active Start: March 03, 2025 End: March 04, 2025 Dr. Swati Huff , DO Emergency Provider Active Start: March 03, 2025 End: March 04, 2025 Dr. Clyde Long , DO Admit Provider Active Star t: March 03, 2025 End: March 04, 2025 Dr. Clyde Long , DO Attending Provider Active Start: March 03, 2025 End: March 04, 2025 Team Status: Active Member Role Status Dates Dr. Florin Bailey DO Primary Care Provider Active Start: March 04, 2025 Dr. Swati Huff , DO Emergency Provider Active Start: March 04, 2025 Dr. Clyde Long , DO Admit Provider Active Star t: March 04, 2025 Dr. Clyde Long DO Attending Provider Active Start: March 04, 2025 Dr. Clyde Long , DO Other Provider Active Star t: March 04, 2025 Team Status: Active Member Role Status Dates Dr. Florin Bailey DO Primary Care Provider Active Start: March 04, 2025 Dr. Swati Huff , DO Emergency Provider Active Start: March 04, 2025 Dr. Clyde Long , DO Admit Provider Active Star t: March 04, 2025 Dr. Clyde Long DO Other Provider Active Star t: March 04, 2025 Dr. Ivan Cotto , DO Attending Provider Active Start: March 04, 2025 Team Status: Inactive Member Role Status Dates Dr. Florin Bailey DO Primary Care Provider Active Start: February 28, 2025 End: February 28, 2025 Luz Mullen GUM COOK, GUM COOK-C Attending Provider Active Start: February 28, 2025 End: February 28, 2025 Luz Mullen GUM COOK, GUM COOK-C Referring Provider Active Start: February 28, 2025 End: February 28, 2025 Team Status: Active Member Role Status Dates Dr. Florin Bailey DO Primary Care Provider Active Start: February 28, 2025 Dr. Deondre Leavitt MD Attending Provider Active Start: February 28, 2025 Luz Mullen GUM COOK, GUM COOK-C Referring Provider Active Start: February 28, 2025 Team Status: Inactive Member Role Status Dates Dr. Florin Bailey DO Referring Provider Active Start: March 08, 2025 End: March 08, 2025 Dr. Ivan Cotto , DO Attending Provider Active Start: March 08, 2025 End: March 08, 2025 Team Status: Active Member Role Status Dates Dr. Florin Bailey , DO Primary Care Provider Active Start: March 08, 2025 Dr. Ivan Cotto , DO Attending Provider Active Start: March 08, 2025 Dr. Ivan Cotto , DO Referring Provider Active Start: March 08, 2025 Team Status: Inactive Member Role Status Dates Dr. Florin Bailey , DO Primary Care Provider Active Start: March 11, 2025 End: March 11, 2025 Dr. Ivan Cotto , DO Attending Provider Active Start: March 11, 2025 End: March 11, 2025 Dr. Ivan Cotto DO Referring Provider Active Start: March 11, 2025 End: March 11, 2025 Team Status: Active Member Role Status Dates Dr. Florin Bailey , DO Primary Care Provider Active Start: March 04, 2025 Dr. Swati Huff , DO Emergency Provider Active Start: March 04, 2025 Dr. Clyde Long , DO Admit Provider Active Star t: March 04, 2025 Dr. Clyde Logn , DO Referring Provider Active Start: March 04, 2025 Dr. Clyde Long , DO Other Provider Active Star t: March 04, 2025 Dr. Ivan Cotto DO Attending Provider Active Start: March 04, 2025 Team Status: Inactive Member Role Status Dates Dr. Florin Bailey , DO Primary Care Provider Active Start: March 08, 2025 End: March 08, 2025 Dr. Ivan Cotto , DO Attending Provider Active Start: March 08, 2025 End: March 08, 2025 Dr. Ivan Cotto , DO Referring Provider Active Start: March 08, 2025 End: March 08, 2025 Team Status: Inactive Member Role Status Dates Dr. Florin Bailey , DO Primary Care Provider Active Start: March 18, 2025 End: March 18, 2025 Dr. Inderjit Gilmore , DO Emergency Provider Active Start: March 18, 2025 End: March 18, 2025 Team Status: Active Member Role Status Dates Dr. Florin Bailey , DO Primary Care Provider Active Start: March 20, 2025 Dr. Dax Álvarez MD Attending Provider Active Start: March 20, 2025 Dr. Dax Álvarez MD Referring Provider Active Start: March 20, 2025 Team Status: Inactive Member Role Status Dates Dr. Florin Bailey DO Primary Care Provider Active Start: March 20, 2025 End: March 20, 2025 Dr. Florin Bailey DO Referring Provider Active Start: March 20, 2025 End: March 20, 2025 Dr. Dax Álvarez MD Attending Provider Active Start: March 20, 2025 End: March 20, 2025 Team Status: Inactive Member Role Status Dates Dr. Florin Bailey DO Primary Care Provider Active Start: February 22, 2025 End: March 23, 2025 Dr. Adan Galindo MD Attending Provider Activ e Start: February 22, 2025 End: March 23, 2025 Dr. Adan Galindo MD Referring Provider Activ e Start: February 22, 2025 End: March 23, 2025 Team Status: Inactive Member Role Status Dates Dr. Florin Bailey DO Primary Care Provider Active Start: March 18, 2025 End: March 18, 2025 Dr. Inderjit Gilmore DO Attending Provider Active Start: March 18, 2025 End: March 18, 2025 Dr. Inderjit Gilmore DO Emergency Provider Active Start: March 18, 2025 End: March 18, 2025 Team Status: Active Member Role Status Dates Dr. Florin Bailey DO Primary Care Provider Active Start: March 25, 2025 Dr. Adan Galindo MD Attending Provider Activ e Start: March 25, 2025 Dr. Aadn Galindo MD Referring Provider Activ e Start: March 25, 2025 Team Status: Inactive Member Role Status Dates Dr. Florin Bailey DO Primary Care Provider Active Start: April 05, 2025 End: April 05, 2025 Dr. Florin Bailey DO Referring Provider Active Start: April 05, 2025 End: April 05, 2025 Dr. Deondre Leavitt MD Attending Provider Active Start: April 05, 2025 End: April 05, 2025 Paper Deliverer Relationship Specialty Start Date End Date Florin Bailey DO [address] [facility] [place] [address] PCP - General 03/19/25 Team Status: Active Member Role/Relationship Status Dates Dr. Florin Bailey DO Primary Care Provider Active Team Status: Inactive Member Role/Relationship Status Dates Dr. Florin Bailey DO Primary Care Provider Active Start: January 02, 2025 End: January 02, 2025 Nohemy Banks NP-C Attending Provider Active Start: January 02, 2025 End: January 02, 2025 Aung Franklin GUM COOK, GUM COOK-C Referring Provider Active S tart: January 02, 2025 End: January 02, 2025 Team Status: Active Member Role/Relationship Status Dates Dr. Florin Bailey DO Primary Care Provider Active Start: January 08, 2025 Dr. Trey Eduardo MD Attending Provider Active Start: January 08, 2025 Dr. Trey Eduardo MD Referring Provider Active Start: January 08, 2025 Team Status: Inactive Member Role/Relationship Status Dates Dr. Florin Bailey DO Primary Care Provider Active Start: January 08, 2025 End: January 08, 2025 Dr. Roxanne Olivas MD Attending Provider Active Start: January 08, 2025 End: January 08, 2025 Team Status: Inactive Member Role/Relationship Status Dates Dr. Florin Bailey DO Primary Care Provider Active Start: January 09, 2025 End: January 09, 2025 AVEL DesaiC Attending Provider Active Start: January 09, 2025 End: January 09, 2025 Team Status: Inactive Member Role/Relationship Status Dates Dr. Florin Bailey DO Primary Care Provider Active Start: January 23, 2025 End: January 23, 2025 Dr. Florin Bailey DO Referring Provider Active Start: January 23, 2025 End: January 23, 2025 Aung Franklin GUM COOK, GUM COOK-C Attending Provider Active S tart: January 23, 2025 End: January 23, 2025 Team Status: Inactive Member Role/Relationship Status Dates Dr. Florin Bailey DO Primary Care Provider Active Start: January 24, 2025 End: January 24, 2025 Dr. Roxanne Olivas MD Attending Provider Active Start: January 24, 2025 End: January 24, 2025 Dr. Roxanne Olivas MD Referring Provider Active Start: January 24, 2025 End: January 24, 2025 Team Status: Inactive Member Role/Relationship Status Dates Dr. Florin Bailey DO Primary Care Provider Active Start: February 04, 2025 End: February 05, 2025 Dr. Orlando Abdi MD Emergency Provider Active Start: February 04, 2025 End: February 05, 2025 Dr. Estrella Hanna MD Admit Provider Active St art: February 04, 2025 End: February 05, 2025 Dr. Estrella Hanna MD Attending Provider Active Start: February 04, 2025 End: February 05, 2025 Dr. Estrella Hanna MD Other Provider Active St art: February 04, 2025 Team Status: Active Member Role/Relationship Status Dates Dr. Florin Bailey DO Primary Care Provider Active Start: February 04, 2025 Dr. Orlando Abdi MD Emergency Provider Active Start: February 04, 2025 Dr. Estrella Hanna MD Admit Provider Active St art: February 04, 2025 Dr. Estrella Hanna MD Other Provider Active St art: February 04, 2025 Dr. Deondre Leavitt MD Attending Provider Active Start: February 04, 2025 Team Status: Active Member Role/Relationship Status Dates Dr. Florin Bailey DO Primary Care Provider Active Start: February 05, 2025 Dr. Orlando Abdi MD Emergency Provider Active Start: February 05, 2025 Dr. Estrella Hanna MD Admit Provider Active St art: February 05, 2025 Dr. Estrella Hanna MD Other Provider Active St art: February 05, 2025 Dr. Deondre Leavitt MD Attending Provider Active Start: February 05, 2025 Team Status: Active Member Role/Relationship Status Dates Dr. Florin Bailey DO Primary Care Provider Active Start: February 05, 2025 Dr. Orlando Abdi MD Emergency Provider Active Start: February 05, 2025 Dr. Estrella Hanna MD Admit Provider Active St art: February 05, 2025 Dr. Estrella Hanna MD Attending Provider Active Start: February 05, 2025 Dr. Estrella Hanna MD Other Provider Active St art: February 05, 2025 Team Status: Inactive Member Role/Relationship Status Dates Dr. Florin Bailey DO Primary Care Provider Active Start: February 06, 2025 End: February 06, 2025 Dr. Inderjit Gilmore DO Attending Provider Active Start: February 06, 2025 End: February 06, 2025 Dr. Inderjit Gilmore DO Emergency Provider Active Start: February 06, 2025 End: February 06, 2025 Team Status: Active Member Role/Relationship Status Dates Dr. Florin Bailey DO Primary Care Provider Active Start: February 06, 2025 Dr. Adan Galindo MD Attending Provider Activ e Start: February 06, 2025 Team Status: Inactive Member Role/Relationship Status Dates Dr. Florin Bailey DO Primary Care Provider Active Start: February 07, 2025 End: February 07, 2025 Dr. Florin Bailey DO Referring Provider Active Start: February 07, 2025 End: February 07, 2025 Luz Mullen NP, GUM COOK-C Attending Provider Active Start: February 07, 2025 End: February 07, 2025 Team Status: Inactive Member Role/Relationship Status Dates Dr. Florin Bailey DO Primary Care Provider Active Start: February 12, 2025 End: February 12, 2025 Dr. Adan Galindo MD Attending Provider Activ e Start: February 12, 2025 End: February 12, 2025 Dr. Adan Galindo MD Referring Provider Activ e Start: February 12, 2025 End: February 12, 2025 Team Status: Inactive Member Role/Relationship Status Dates Dr. Florin Bailey DO Primary Care Provider Active Start: February 18, 2025 End: February 22, 2025 Dr. Devon Yousif DO Emergency Provider Active Start : February 18, 2025 End: February 22, 2025 Dr. Jakub Fischer MD Admit Provider Active Start: February 18, 2025 End: February 22, 2025 Dr. Jakub Fischer MD Referring Provider Active Start: February 18, 2025 End: February 22, 2025 Dr. Jakub Fischer MD Other Provider Active Start: February 18, 2025 End: February 22, 2025 Dr. Ivan Cotto DO Other Provider Active St art: February 18, 2025 End: February 22, 2025 Dr. Josh Peñaloza MD Attending Provider Active Start: February 18, 2025 End: February 22, 2025 Team Status: Active Member Role/Relationship Status Dates Dr. Florin Bailey DO Primary Care Provider Active Start: February 18, 2025 Dr. Devon Yousif DO Emergency Provider Active Start : February 18, 2025 Dr. Jakub Fischer MD Admit Provider Active Start: February 18, 2025 Dr. Jakub Fischer MD Attending Provider Active Start: February 18, 2025 Dr. Jakub Fischer MD Other Provider Active Start: February 18, 2025 Dr. Ivan Cotto DO Other Provider Active St art: February 18, 2025 Team Status: Active Member Role/Relationship Status Dates Dr. Florin Bailey DO Primary Care Provider Active Start: February 18, 2025 Dr. Devon Yousif DO Emergency Provider Active Start : February 18, 2025 Dr. Jakub Fischer MD Admit Provider Active Start: February 18, 2025 Dr. Jakub Fischer MD Referring Provider Active Start: February 18, 2025 Dr. Jakub Fischer MD Other Provider Active Start: February 18, 2025 Dr. Ivan Cotto DO Attending Provider Active Start: February 18, 2025 Dr. Ivan Cotto DO Other Provider Active St art: February 18, 2025 Dr. Josh Peñaloza MD Other Provider Active Star t: February 18, 2025 Team Status: Active Member Role/Relationship Status Dates Dr. Florin Bailey DO Primary Care Provider Active Start: February 19, 2025 Dr. Devon Yousif DO Emergency Provider Active Start : February 19, 2025 Dr. Jakub Fischer MD Admit Provider Active Start: February 19, 2025 Dr. Jakub Fischer MD Other Provider Active Start: February 19, 2025 Dr. Ivan Cotto DO Other Provider Active St art: February 19, 2025 Dr. Josh Peñaloza MD Attending Provider Active Start: February 19, 2025 Dr. Josh Peñaloza MD Other Provider Active Star t: February 19, 2025 Team Status: Active Member Role/Relationship Status Dates Dr. Florin Bailey DO Primary Care Provider Active Start: February 19, 2025 Dr. Adan Galindo MD Attending Provider Activ e Start: February 19, 2025 Team Status: Active Member Role/Relationship Status Dates Dr. Florin Bailey DO Primary Care Provider Active Start: February 19, 2025 Dr. Devon Yousif DO Emergency Provider Active Start : February 19, 2025 Dr. Jakub Fischer MD Admit Provider Active Start: February 19, 2025 Dr. Jakub Fischer MD Referring Provider Active Start: February 19, 2025 Dr. Jakub Fischer MD Other Provider Active Start: February 19, 2025 Dr. Ivan Cotto DO Attending Provider Active Start: February 19, 2025 Dr. Ivan Cotto DO Other Provider Active St art: February 19, 2025 Dr. Josh Peñaloza MD Other Provider Active Star t: February 19, 2025 Team Status: Active Member Role/Relationship Status Dates Dr. Florin Bailey DO Primary Care Provider Active Start: February 20, 2025 Dr. Devon Yousif DO Emergency Provider Active Start : February 20, 2025 Dr. Jakub Fischer MD Admit Provider Active Start: February 20, 2025 Dr. Jakub Fischer MD Other Provider Active Start: February 20, 2025 Dr. Ivan Cotto DO Other Provider Active St art: February 20, 2025 Dr. Josh Peñaloza MD Attending Provider Active Start: February 20, 2025 Dr. Josh Peñaloza MD Other Provider Active Star t: February 20, 2025 Team Status: Active Member Role/Relationship Status Dates Dr. Florin Bailey DO Primary Care Provider Active Start: February 20, 2025 Dr. Devon Yousif DO Emergency Provider Active Start : February 20, 2025 Dr. Jakub Fischer MD Admit Provider Active Start: February 20, 2025 Dr. Jakub Fischer MD Referring Provider Active Start: February 20, 2025 Dr. Jakub Fischer MD Other Provider Active Start: February 20, 2025 Dr. Ivan Cotto DO Attending Provider Active Start: February 20, 2025 Dr. Ivan Cotto DO Other Provider Active St art: February 20, 2025 Dr. Josh Peñaloza MD Other Provider Active Star t: February 20, 2025 Team Status: Active Member Role/Relationship Status Dates Dr. Florin Bailey DO Primary Care Provider Active Start: February 21, 2025 Dr. Devon Yousif , Emergency Provider Active Start : February 21, 2025 Dr. Jakub Fischer MD Admit Provider Active Start: February 21, 2025 Dr. Jakub Fischer MD Referring Provider Active Start: February 21, 2025 Dr. Jakub Fischer MD Other Provider Active Start: February 21, 2025 Dr. Ivan Cotto DO Attending Provider Active Start: February 21, 2025 Dr. Ivan Cotto DO Other Provider Active St art: February 21, 2025 Dr. Josh Peñaloza MD Other Provider Active Star t: February 21, 2025 Team Status: Active Member Role/Relationship Status Dates Dr. Florin Bailey DO Primary Care Provider Active Start: February 21, 2025 Dr. Devon Yousif , Emergency Provider Active Start : February 21, 2025 Dr. Jakub Fischer MD Admit Provider Active Start: February 21, 2025 Dr. Jakub Fischer MD Other Provider Active Start: February 21, 2025 Dr. Ivan Cotto DO Other Provider Active St art: February 21, 2025 Dr. Josh Peñaloza MD Attending Provider Active Start: February 21, 2025 Dr. Josh Peñaloza MD Other Provider Active Star t: February 21, 2025 Team Status: Inactive Member Role/Relationship Status Dates Dr. Florin Bailey DO Primary Care Provider Active Start: February 22, 2025 End: March 23, 2025 Dr. Adan Galindo MD Attending Provider Activ e Start: February 22, 2025 End: March 23, 2025 Dr. Adan Galindo MD Referring Provider Activ e Start: February 22, 2025 End: March 23, 2025 Team Status: Active Member Role/Relationship Status Dates Dr. Florin Bailey DO Primary Care Provider Active Start: February 22, 2025 Dr. Devon Yousif DO Emergency Provider Active Start : February 22, 2025 Dr. Jakub Fischer MD Admit Provider Active Start: February 22, 2025 Dr. Jakub Fischer MD Other Provider Active Start: February 22, 2025 Dr. Ivan Cotto DO Other Provider Active St art: February 22, 2025 Dr. Josh Peñaloza MD Attending Provider Active Start: February 22, 2025 Dr. Josh Peñaloza MD Other Provider Active Star t: February 22, 2025 Team Status: Inactive Member Role/Relationship Status Dates Dr. Florin Bailey DO Primary Care Provider Active Start: February 28, 2025 End: February 28, 2025 Dr. Orlando Abdi MD Attending Provider Active Start: February 28, 2025 End: February 28, 2025 Dr. Orlando Abdi MD Emergency Provider Active Start: February 28, 2025 End: February 28, 2025 Team Status: Inactive Member Role/Relationship Status Dates Dr. Florin Bailey DO Primary Care Provider Active Start: February 28, 2025 End: February 28, 2025 Luz Mullen GUM COOK, GUM COOK-C Attending Provider Active Start: February 28, 2025 End: February 28, 2025 Luz Mullen GUM COOK, GUM COOK-C Referring Provider Active Start: February 28, 2025 End: February 28, 2025 Team Status: Active Member Role/Relationship Status Dates Dr. Florin Bailey DO Primary Care Provider Active Start: February 28, 2025 Dr. Deondre Leavitt MD Attending Provider Active Start: February 28, 2025 Luz Mullen GUM COOK, GUM COOK-C Referring Provider Active Start: February 28, 2025 Team Status: Inactive Member Role/Relationship Status Dates Dr. Florin Bailey DO Primary Care Provider Active Start: March 03, 2025 End: March 04, 2025 Dr. Swati Huff DO Emergency Provider Active Start: March 03, 2025 End: March 04, 2025 Dr. Clyde Long DO Admit Provider Active Star t: March 03, 2025 End: March 04, 2025 Dr. Clyde Long DO Attending Provider Active Start: March 03, 2025 End: March 04, 2025 Team Status: Active Member Role/Relationship Status Dates Dr. Florin Bailey , DO Primary Care Provider Active Start: March 03, 2025 Dr. Swati Huff , DO Emergency Provider Active Start: March 03, 2025 Dr. Clyde Long , DO Admit Provider Active Star t: March 03, 2025 Dr. Clyde Long , DO Attending Provider Active Start: March 03, 2025 Dr. Clyde Long , DO Other Provider Active Star t: March 03, 2025 Team Status: Active Member Role/Relationship Status Dates Dr. Florin Bailey , DO Primary Care Provider Active Start: March 04, 2025 Dr. Swati Huff , DO Emergency Provider Active Start: March 04, 2025 Dr. Clyde Long , DO Admit Provider Active Star t: March 04, 2025 Dr. Clyde Long DO Attending Provider Active Start: March 04, 2025 Dr. Clyde Long , DO Other Provider Active Star t: March 04, 2025 Team Status: Active Member Role/Relationship Status Dates Dr. Florin Bailey , DO Primary Care Provider Active Start: March 04, 2025 Dr. Swati Huff , DO Emergency Provider Active Start: March 04, 2025 Dr. Clyde Long , DO Admit Provider Active Star t: March 04, 2025 Dr. Clyde Long DO Referring Provider Active Start: March 04, 2025 Dr. Clyde Long , DO Other Provider Active Star t: March 04, 2025 Dr. Ivan Cotto , DO Attending Provider Active Start: March 04, 2025 Team Status: Inactive Member Role/Relationship Status Dates Dr. Florin Bailey , DO Referring Provider Active Start: March 08, 2025 End: March 08, 2025 Dr. Ivan Cotto , DO Attending Provider Active Start: March 08, 2025 End: March 08, 2025 Team Status: Inactive Member Role/Relationship Status Dates Dr. Florin Bailey , DO Primary Care Provider Active Start: March 08, 2025 End: March 08, 2025 Dr. Ivan Cotto , DO Attending Provider Active Start: March 08, 2025 End: March 08, 2025 Dr. Ivan Cotto , DO Referring Provider Active Start: March 08, 2025 End: March 08, 2025 Team Status: Inactive Member Role/Relationship Status Dates Dr. Florin Bailey DO Primary Care Provider Active Start: March 11, 2025 End: March 11, 2025 Dr. Ivan Cotto DO Attending Provider Active Start: March 11, 2025 End: March 11, 2025 Dr. Ivan Cotto DO Referring Provider Active Start: March 11, 2025 End: March 11, 2025 Team Status: Inactive Member Role/Relationship Status Dates Dr. Florin Bailey DO Primary Care Provider Active Start: March 18, 2025 End: March 18, 2025 Dr. Inderjit Gilmore DO Attending Provider Active Start: March 18, 2025 End: March 18, 2025 Dr. Inderjit Gilmore DO Emergency Provider Active Start: March 18, 2025 End: March 18, 2025 Team Status: Active Member Role/Relationship Status Dates Dr. Florin Bailey DO Primary Care Provider Active Start: March 20, 2025 Dr. Dax Álvarez MD Attending Provider Active Start: March 20, 2025 Dr. Dax Álvarez MD Referring Provider Active Start: March 20, 2025 Team Status: Inactive Member Role/Relationship Status Dates Dr. Florin Bailey DO Primary Care Provider Active Start: March 20, 2025 End: March 20, 2025 Dr. Florin Bailey DO Referring Provider Active Start: March 20, 2025 End: March 20, 2025 Dr. Dax Álvarez MD Attending Provider Active Start: March 20, 2025 End: March 20, 2025 Team Status: Inactive Member Role/Relationship Status Dates Dr. Florin Bailey DO Primary Care Provider Active Start: March 25, 2025 End: April 22, 2025 Dr. Adan Galindo MD Attending Provider Activ e Start: March 25, 2025 End: April 22, 2025 Dr. Adan Galindo MD Referring Provider Activ e Start: March 25, 2025 End: April 22, 2025 Team Status: Inactive Member Role/Relationship Status Dates Dr. Florin Bailey DO Primary Care Provider Active Start: April 05, 2025 End: April 05, 2025 Dr. Florin Bailey DO Referring Provider Active Start: April 05, 2025 End: April 05, 2025 Dr. Deondre Leavitt MD Attending Provider Active Start: April 05, 2025 End: April 05, 2025 Team Status: Inactive Member Role/Relationship Status Dates Dr. Florin Bailey DO Primary Care Provider Active Start: April 23, 2025 End: April 23, 2025 Dr. Florin Bailey DO Referring Provider Active Start: April 23, 2025 End: April 23, 2025 Dr. Ivan Cotto DO Attending Provider Active Start: April 23, 2025 End: April 23, 2025 Reason for Visit (unrecogniz ed section and content) Reason Comments Shortness of Breath Specialty Diagnoses / Procedures Referred By Contac t Referred To Contact Diagnoses Shortness of breath SOB (shortness of breath) Procedures - [place] [address] Department [place] [address] Phone: tel: fax: [place] [phone] [place] [address] Phone: tel: Referral ID Status Reason Start Date Expiration Date Visits Re quested Visits Authorized [id number] 1 1 Scheduled Active and Recently Administ ered Medications (unrecognized section and content) Medication Order 03/24/2025 03/25/2025 03/26/2025 aspirin chewable tablet 81 mg 81 mg, oral, Daily, First dose on Tue03/22/25 at 0900 0918 (Given - Provider: Kat Ugarte) 0942 (Given - Provider: Hallie Valentin RN) 0957 (Given - Provider: Hallie Valentin, NICOLA) atorvastatin (Lipitor) tablet 40 mg 40 mg, oral, Daily, First dose on Tue03/22/25 at 0900 2002 (Given - Provider: Melba Marmolejo RN) 2125 (Given - Provider: Harmony Greer LPN) 2099 (Due - Provider: Deondre Gracia, PharmD) clopidogrel (Plavix) tablet 75 mg(Linked Group 1) 75 mg, oral, Daily, First dose on Tue03/23/25 at 0900, For 365 days 0918 (Given - Provider: Kat Ugarte) 0942 (Given - Provider: Hallie Valentin RN) 0957 (Given - Provider: Hallie Valentin RN) iron sucrose (Venofer) injection 200 mg (COMPLETED) 200 mg, intravenous, Administer over 5 Minutes, Daily, First dose on Tue03/23/25 at 1200, For 3 days 0509 (Given - Provider: Melba Marmolejo RN) 0553 (Given - Provider: Melba Marmolejo RN) pantoprazole (Protonix) injection 40 mg 40 mg, intravenous, 2 times daily, First dose on Tue03/22/25 at 0500, Reconstitute each 40 mg vial with 10 mL NS to make 4 mg/mL solution. 917 (Given - Provider: Kat Ugarte)2002 (Given - Provider: Melba Marmolejo RN) 0942 (Given - Provider: Hallie Valentin RN)2246 (Given - Provider: Lorelei Ceja RN) 0957 (Given - Provider: Hallie Valentin RN)2100 (Due) PRN Medication Order 03/24/2025 03/25/2025 03/26/2025 acetaminophen (Tylenol) tablet 975 mg 975 mg, oral, Every 8 hours PRN, pain mild (1-3), first line, Starting on Tue03/25/25 at 1702, If ordered PRN for pain, nurse is permitted to administer this medication for higher pain scores based on patient preference? Yes 185 (Given - Provider: Ti Valentin RN) ondansetron (Zofran) injection 4 mg 4 mg, intravenous, Every 4 hours PRN, nausea/vomiting, first line, Starting on Tue03/25/25 at 1432, When administering via IV Push, administer over 3-5 minutes. 1503 (Given - Provider: Ti Valentin RN) phenoL (Chloraseptic) 1.4 % mouth/throat spray 1 spray 1 spray, Mouth/Throat, Every 2 hour PRN, sore throat, Starting on Tue03/25/25 at 1702, Instruct patient to spit out after 15 seconds. 1857 (Given - Provider: Ti Valentin RN) polyethylene glycol (Glycolax, Miralax) packet 17 g 17 g, oral, Daily PRN, constipation, Starting on Joana 03/21/25 at 2240, Bowel Regimen - for prevention of constipation. Linked Groups Order Group 1: clopidogrel (Plavix) tablet 300 mg (COMPLETED) 300 mg, oral, Once, On 03/22/25 at 2100, For 1 dose And clopidogrel (Plavix) tablet 75 mgJump to med 75 mg, oral, Daily, First dose on 03/23/25 at 0900, For 365 days FOR RECORDS PERTAINING TO PATIENTS WHO ARE OR HAVE BEEN ENROLLED IN A CHEMICAL DEPENDENCY/SUBSTANCEABUSE PROGRAM, SOME INFORMATION MAY BE OMITTED. This clinical summary was aggregated from multiple sources. Caution should be exercised in using it in the provision of clinical care. This summary normalizes information from multiple sources, and as a consequence, information in this document may materially change the coding, format and clinical context of patient data. In addition, data may be omitted in some cases. CLINICAL DECISIONS SHOULD BE BASED ON THE PRIMARY CLINICAL RECORDS. [employer] [facility]. provides no warranty or guarantee of the accuracy or completeness of information in this document.
--- OUTSIDE RECORDS SUMMARY | 2025-04-24 07:25 | XMS RPT_ITS | CCD ---
Author Organization [facility] Care Team Providers Care Ring Sorter Name Role Phone DELPHINE WADSWORTH, BRANDEN Stevenson Primary Care Physician [phone] FLORIN BAILEY DO Primary Care Physician Delphine WADSWORTH, Dr. Sams Primary Care Provider [phone] Daniel WADSWORTH, Dr. Pickett Emergency Provider Josie WADSWORTH, Dr. Arellano Attending Provider Josie WADSWORTH, Dr. Arellano Referring Provider Gallo WADSWORTH, Dr. Stacy Admit Provider Galol WADSWORTH, Dr. Stacy Other Provider Josie WADSWORTH, Dr. Arellano Other Provider Dr. Florin Bailey DO Primary Care Provider [phone] Dr. Kraig Feliz DO Attending Provider Dr. Alfredito Saucedo MD Attending Provider [phone] Dr. Kraig Feliz DO Other Provider Dr. Florin Bailey DO Referring Provider Rigoberto AVELAR-Aung Hawkins Attending Provider Aung Rush Referring Provider Aguilar WADSWORTH, Dr. Benedict Attending Provider [phone] Aguilar WADSWORTH, Dr. Benedict Emergency Provider [phone] Darren AVELAR-C, Nohemy Villalba Attending Provider Brendon WADSWORTH, Dr. Oliveira Attending Provider Brendon WADSWORTH, Dr. Oliveira Referring Provider Jayce WADSWORTH, Dr. Yang Attending Provider Jayce WADSWORTH, Dr. Yang Referring Provider Jin WADSWORTH, Dr. Perry Emergency Provider Cyndi WADSWORTH, Dr. Estrella Goins Admit Provider Cyndi WADSWORTH, Dr. Estrella Goins Attending Provider Cyndi WADSWORTH, Dr. Esrtella Goins Other Provider Dagmar WADSWORTH, Dr. Patel [...] Josie WADSWORTH, Dr. Arellano Referring Provider Sebas 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Luz Referring Provider [phone] Dr. Swati Huff DO Emergency Provider Mercedes MORALES, Dr. Tang Admit Provider Dr. Clyde Long DO Attending Provider Mercedes MORALES, Dr. Tang Other Provider Leo MORALES, Dr. Catherine Primary Care Provider [phone] Rigoberto 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, Aung Landaverde Attending Provider Rigoberto 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, Aung Landaverde Referring Provider Josie WADSWORTH, Dr. [...] MORALES, Dr. Catherine Primary Care Provider [phone] Josie WADSWORTH, Dr. Arellano Attending Provider Josie [...] DO, FLORIN E Primary Care Unavailable JANES REGISTERED RADIOLOGIC TECHNOLOGIST-PUTTY AND CAULKING SUPERVISOR, CHAI Coreas Attending Unavai lable BAILEY DO, FLORIN E Primary Care Unavailable BALTES REGISTERED RADIOLOGIC TECHNOLOGIST-PUTTY AND CAULKING SUPERVISOR, MARQUITA Attending Unavailabl e BAILEY DO, FLORIN E Primary Care Unavailable BALTES REGISTERED RADIOLOGIC TECHNOLOGIST-PUTTY AND CAULKING SUPERVISOR, MARQUITA Attending Unavailabl e BAILEY DO, FLORIN E Primary Care Unavailable SHIRIN REGISTERED RADIOLOGIC TECHNOLOGIST-PUTTY AND CAULKING SUPERVISOR, MATTIE Attending Unavai lable BAILEY DO, [...] MORALES, Dr. Catherine Primary Care Provider [phone] Leo Florin Primary Care Unavailable Inderjit Gilmore Attending Unavailable Leo, Florin Primary Care Unavailable Roxanne Olivas Attending Unavailable Roxanne Olivas Referring Unavailable Bailey, Florin Primary Care Unavailable Nohemy Banks Attending Unavailable [facility] Unavailable Nagajothi, Nagapradee Referring Unavailabl e Nagajothi, Nagapradee Attending Unavailabl e Tawanna Holder Admitting Unavailable Tawanna Holder Attending Unavailable Nagajothi, Nagapradee Consulting Unavailabl e Nagajothi, Nagapradee Referring Unavailabl Branden Rosenbaum [facility] Care Unavailable Tawanna Holder Consulting Unavailable [facility] Unavailable Deondre Leavitt Attending Unavailable Koram, Estrella Briseida Consulting Unavailable Koram, Estrella Briseida Admitting Unavailable Koram, Estrella Briseida Attending Unavailable [facility] Unavailable Clyde Long Admitting Unavailable Clyde Long Consulting Unavailable Clyde Long Attending Unavailable [facility] Unavailable Tawanna Holder Consulting Unavailable Nagajothi, Nagapradee Referring Unavailabl e Tawanna Holder Admitting Unavailable Kraig Feliz Attending Unavailable Josie, Nagaprzahirae Consulting UnavailKraig Orozco Consulting Unavailable [facility] Unavailable Ivan Cotto Consulting Unavailable Jakub Fischer Referring Unavailable Josh Peñaloza Attending Unavailable Jakub Fischer Admitting Unavailable Jakub Fischer Consulting Unavailable Josh Peñaloza Consulting Unavailable [facility] Unavailable Tawanna Holder Admitting Unavailable Tawanna Holder Consulting Unavailable Nagajothi, Nagapradee Referring UnavailKraig Orozco Attending Unavailable Nagajothi, Nagapradee Consulting Unavailabl e [facility] Unavailable Koram, Estrella Briseida Admitting Unavailable Koram, Estrella Briseida Attending Unavailable [facility] Unavailable Aung Franklin NP Attending Unavailable Aung Franklin NP Referring Unavailable [facility] Unavailable Roxanne Olivas Attending Unavailable Roxanne Olivas Referring Unavailable Nagajothi, Nagapradee Attending Unavailabl e Nagajothi, Nagapradee Referring Unavailabl e [facility] Unavailable [facility] Unavailable Sebas AVELAR, Luz Attending Unavailable Sebas 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Luz Referring Unavailable [facility] Unavailable Nagajothi, Nagapradee Referring Unavailabl e Nagajothi, Nagapradee Attending Unavailabl e [facility] Care Unavailable Bailye, Florin Referring Unavailable Dax Álvarez Attending Unavailable [...] Unavailable Bailey, Florin Primary Care Unavailable Sebas 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, Luz Attending Unavailable Sebas 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, Luz Referring Unavailable Bailey, Florin Primary Care [...] Ivan Referring Unavailable Friend, Ivan Attending Unavailable [facility] Florin Primary Care Unavailable Nagajothi, Nagapradee Referring Unavailabl e Nagajothi, Nagapradee Attending Unavailabl e Leo, Florin Primary Care Unavailable Jak Sheikh [facility] Orlando Abdi Attending Unavailable Allergies Allergy Classification Reported Allergen(s) Allergy Type Date of Onset Reaction(s) Facility (14 sources) Penicillin; Translations: [penicillin] Drug Allergy Rash [facility] (15 sources) Sulfamethoxazole / Trimethoprim; Translations: [sulfamethoxazole-t rimethoprim] Drug Allergy 03-21-20 25 Nausea/vomitin g [facility] (20 sources) Penicillins; Translations: [PENICILLINS] Allergy to substance 04-26-20 16 [facility] [place] [facility] (20 sources) Sulfonamides (Antibiotic); Translations: [SULFA (SULFONAMIDE ANTIBIOTICS)] Propensity to adverse reactions 01-03-20 [facility] (1 source) Sulfamethoxazole / Trimethoprim; Translations: [SULFAMETHOXAZOLE-T RIMETHOPRIM] Drug Allergy 03-21-20 25 [facility] [place] [facility] (1 source) Penicillins Drug Allergy 04-26-20 16 [facility] (1 source) Sulfonamides (Antibiotic) Drug Allergy 01-03-20 Diarrhea [facility] Work Phone: (1 source) Penicillins Drug allergy (disorder) 04-05-20 [facility] (1 source) Sulfonamides (Antibiotic) Drug allergy (disorder) 04-05-20 [facility] Medications Current Medications Medication Drug Class(es) [...] pain scores based on patient preference? Yes [id number] 200 actuat albuterol 0.09 mg/actuat metered dose [...] 81 mg chewable tablet Indications: CAD in [place] artery Chew 1 tablet (81 mg) once [...] indigestion, # 355 mL, 0 Refill(s), Pharmacy: [facility]/pharmacy #[id number], Hiatal hernia, 167.5, cm, 12/11/24 14:17:00 [...] indigestion, # 355 mL, 0 Refill(s), Pharmacy: [facility]/pharmacy #[id number], Hiatal hernia, 167.5, cm, 12/11/24 14:17:00 [...] 0 Refill(s), 11/13/24 11:08:00 AM EST, Pharmacy: [facility]/pharmacy #[id number], UTI (urinary tract infection), 173, cm, [...] out after 15 seconds. polyethylene glycol 3350 12001 mg powder for oral solution (1 source) [...] Class(es) Dates Sig (Normalized) Sig (Original) Cranberry [id number] Coag (14 sources) Non-Standardized Food Allergenic Extract, [...] 0 Refill(s), 12/15/24 11:30:00 AM EST, Pharmacy: [facility]/pharmacy #[id number], 167.5, cm, 12/05/24 11:00:00 EST, Height, [...] qDay, # 60 cap(s), 0 Refill(s), Pharmacy: [facility]/pharmacy #[id number], 167.5, cm, 12/11/24 14:17:00 EST, Height, kg, 12/11/24 14:17:00 EST, Dosing Weight Start Date: 12/13/24 Status: Ordered Quantity: 60.0 Unit: cap(s) Repeat number: 1 Start: 12-11-2024 omeprazole 20 mg oral delayed release capsule Dose : 20 mg = 1 cap(s), Oral, BIDAC, # 100 cap(s), 0 Refill(s), Pharmacy: [facility]/pharmacy #[id number], Hiatal hernia, 167.5, cm, 12/11/24 14:17:00 [...] sources) I25.10 - Atherosclerotic heart disease of [place] coronary artery without angina pectoris,Z95.5 - Presence [...] Repor ton 04-23-2025 Gastroenterology Visit Report Normal [facility] .Auto Diffon 04-16-2025 Basophil, Absolute 0.2 10 3/mcL Normal 0.0-0.3 [facility] Comment on above: Performed By: #### M ORPH, ANEU, ADIFF, CBC #### [facility] [address] [place], [place] [address] Basophils/100 WBC (Bld) 2.5 % Normal 0.0-2.5 [facility] Comment on above: Performed By: #### M ORPH, ANEU, ADIFF, CBC #### [facility] [address] [place], [place] [address] Eosinophil, Absolute 0.2 10 3/mcL Normal 0.0-0.[address] [facility] Comment on above: Performed By: #### M ORPH, ANEU, ADIFF, CBC #### [address] [address] Eosinophils/100 WBC (Bld) 3.0 % Normal 0.0-6.0 [facility] Comment on above: Performed By: #### M ORPH, ANEU, ADIFF, CBC #### [address] [address] Lymphocyte, Absolute 1.5 10 3/mcL Normal 0.9-4.[address] [facility] Comment on above: Performed By: #### M ORPH, ANEU, ADIFF, CBC #### [address] [address] Lymphocytes/100 WBC (Bld) 23.4 % Normal 20.0-40.0 [facility] Comment on above: Performed By: #### M ORPH, ANEU, ADIFF, CBC #### [address] [address] Monocyte, Absolute 0.4 10 3/mcL Normal 0.1-1.4 [facility] Comment on above: Performed By: #### M ORPH, ANEU, ADIFF, CBC #### [address] [address] Monocytes/100 WBC (Bld) 5.9 % Normal 2.0-13.0 [facility] Comment on above: Performed By: #### M ORPH, ANEU, ADIFF, CBC #### [address] [address] Neutrophils/100 WBC (Bld) 65.2 % Normal 50.0-75.0 [facility] Comment on above: Performed By: #### M ORPH, ANEU, ADIFF, CBC #### [address] [address] .GFRon 04-16-2025 Estimated Glomerular Filtration Rate 48 ml/min/1.73sqm Normal [facility] Comment on above: Result Comment: Stages [...] #### M ORPH, ANEU, ADIFF, CBC #### [address] [address] .NEUABSon 04-16-2025 Neutrophil, Absolute 4.2 10 3/mcL Normal 2.3-8.[address] [facility] Comment on above: Performed By: #### M ORPH, ANEU, ADIFF, CBC #### [address] [address] BMPon 04-16-2025 BUN/Creatinine Ratio 18 ratio Normal 7-27 [facility] Comment on above: Performed By: #### M ORPH, ANEU, ADIFF, CBC #### [address] [address] Calcium [Mass/Vol] 9.2 mg/dL Normal 8.4-10.2 [facility] Comment on above: Performed By: #### M ORPH, ANEU, ADIFF, CBC #### [address] [address] Chloride [Moles/Vol] 105 mmol/L Normal 98-107 [facility] Comment on above: Performed By: #### M ORPH, ANEU, ADIFF, CBC #### [address] [address] CO2 [Moles/Vol] 27 mmol/L Normal 23-31 [facility] Comment on above: Performed By: #### M ORPH, ANEU, ADIFF, CBC #### [address] [address] Creatinine [Mass/Vol] 1.23 mg/dL High 0.51-0.95 [facility] Comment on above: Performed By: #### M KELIN CARMICHAEL ADADOLFO, CBC #### [address] [address] Electrolyte Balance 10.0 mEq/L Normal 4.0-15.0 [facility] Comment on above: Performed By: #### M ORKELIN SCHILLING ADIFF, CBC #### [address] [address] Glucose [Mass/Vol] 126 mg/dL High 80-115 [facility] Comment on above: Performed By: #### M KELIN CARMICHAEL ADADOLFO, CBC #### [address] [address] Potassium [Moles/Vol] 4.0 mmol/L Normal 3.5-5.1 [facility] Comment on above: Performed By: #### M KELIN CARMICHAEL ADADOLFO, CBC #### [address] [address] Sodium [Moles/Vol] 142 mmol/L Normal 136-145 [facility] Comment on above: Performed By: #### M ORKELIN SCHILLING ADIFF, CBC #### [address] [address] Urea nitrogen [Mass/Vol] 22 mg/dL High 7-18 [facility] Comment on above: Performed By: #### M ORKELIN SCHILLING ADIFF, CBC #### [address] [address] CBCon 04-16-2025 Erythrocyte distribution width (RBC) [Ratio] 18.4 % High 11.5-15.5 [facility] Comment on above: Performed By: #### M ORSHAKIR ANEU ADIFF, CBC #### [address] [address] Hematocrit (Bld) [Volume fraction] 33.5 % Low 34.0-46.0 [facility] Comment on above: Performed By: #### M ORPH, ANEU, ADIFF, CBC #### [place] [address] Hgb 11.0 G/dL Low 12.0-16.0 [facility] Comment on above: Performed By: #### M ORPH, ANEU, ADIFF, CBC #### [place] [address] MCH (RBC) [Entitic mass] 31.1 pg Normal 27.0-33.0 [facility] Comment on above: Performed By: #### M ORPH, ANEU, ADIFF, CBC #### [place] [address] MCHC 32.9 G/dL Normal 32.0-36.0 [facility] Comment on above: Performed By: #### M ORPH, ANEU, ADIFF, CBC #### [place] [address] MCV (RBC) [Entitic vol] 94.7 fL Normal 80.0-99.0 [facility] Comment on above: Performed By: #### M ORPH, ANEU, ADIFF, CBC #### [place] [address] Platelet 203 10 3/mcL Normal 150-450 [facility] Comment on above: Performed By: #### M ORPH, ANEU, ADIFF, CBC #### [place] [address] Platelet mean volume (Bld) [Entitic vol] 8.5 fL Normal 6.6-10.5 [facility] Comment on above: Performed By: #### M ORPH, ANEU, ADIFF, CBC #### [place] [address] RBC 3.54 10 6/mcL Low 4.10-5.30 [facility] Comment on above: Performed By: #### M ORPH, ANEU, ADIFF, CBC #### [place] [address] WBC 6.5 10 3/mcL Normal 4.5-10.8 [facility] Comment on above: Performed By: #### M ORKELIN SCHILLING ADIFF, CBC #### [facility] [address] [place], [place] [address] LABORATORYOrdered By: SYSTEM SYSTEM on 04-16-2025 Basophils [...] MAMMOGRAM SCREENING BILATERAL W/DICK ORIGINAL FROM: MARLEEN LENA [address] [place], [place] [address] PROCEDURE FOR: MILY LONG [address] [place] [id number] Home: PID#: [id number] Exam#: [id number] : 1960 Age: 65 TO: FLORIN BAILEY D.O. [address] [place] [address] Fax: NO FAX EXAMINATION: SCREENING DIGITAL BILATERAL [...] addition to annual mammographic screening per the [employer]. I have personally reviewed the [...] 04/09/2025 3:23:06 PM Ordering Provider: FLORIN BAILEY Combustion Analyst: LINDA SHEIKH RT (R)(M) letter sent: Normal BI-RADS 1 and 2 Mammogram BI-RADS: 2 Benign Normal [facility] No Panel InformationOrdered By: Alfredo Aragon on 04-09-2025 [facility] Cardiology Visit Reporton Cardiology Visit Report Normal [facility] HHon 04-05-2025 Hematocrit (Bld) [Volume fraction] 31.2 % Low 34.0-46.0 [facility] Comment on above: Performed By: #### M ORPH, ANEU, ADIFF, CBC #### [place] [address] [place] [address] Hgb 10.4 G/dL Low 12.0-16.0 [facility] Comment on above: Performed By: #### M ORPH, ANEU, ADIFF, CBC #### [place] [address] LABORATORYOrdered By: SYSTEM SYSTEM on 04-05-2025 Hematocrit [...] B (Bld) [Mass/Vol] 361 pg/mL High 0-125 [facility] Comment on above: Result Comment: NT-p roBNP results of less than 300 pg/mL effectively rules out acute congestive heart failure with 99% negative predictive value. Performed By: #### M ORPH, ANEU, ADIFF, CBC #### [address] [address] .Auto Diffon 03-30-2025 Basophil, Absolute 0.2 10 3/mcL Normal 0.0-0.3 [facility] Comment on above: Performed By: #### M ORPH, ANEU, ADIFF, CBC #### [address] [address] Basophils/100 WBC (Bld) 2.3 % Normal 0.0-2.5 [facility] Comment on above: Performed By: #### M ORPH, ANEU, ADIFF, CBC #### [address] [address] Eosinophil, Absolute 0.2 10 3/mcL Normal 0.0-0.[address] [facility] Comment on above: Performed By: #### M ORPH, ANEU, ADIFF, CBC #### [address] [address] Eosinophils/100 WBC (Bld) 3.1 % Normal 0.0-6.0 [facility] Comment on above: Performed By: #### M ORPH, ANEU, ADIFF, CBC #### [address] [address] Lymphocyte, Absolute 1.5 10 3/mcL Normal 0.9-4.[address] [facility] Comment on above: Performed By: #### M ORPH, ANEU, ADIFF, CBC #### [address] [address] Lymphocytes/100 WBC (Bld) 19.2 % Low 20.0-40.0 [facility] Comment on above: Performed By: #### M ORPH, ANEU, ADIFF, CBC #### [address] [address] Monocyte, Absolute 0.4 10 3/mcL Normal 0.1-1.4 [facility] Comment on above: Performed By: #### M ORPH, ANEU, ADIFF, CBC #### [place] [address] [place], [place] [address] Monocytes/100 WBC (Bld) 4.9 % Normal 2.0-13.0 [facility] Comment on above: Performed By: #### M ORPH, ANEU, ADIFF, CBC #### [address] [address] Neutrophils/100 WBC (Bld) 70.5 % Normal 50.0-75.0 [facility] Comment on above: Performed By: #### M ORPH, ANEU, ADIFF, CBC #### [address] [address] .GFRon 03-30-2025 Estimated Glomerular Filtration Rate 60 ml/min/1.73sqm Normal [facility] Comment on above: Result Comment: Stages [...] #### M ORPH, ANEU, ADIFF, CBC #### [address] [address] .NEUABSon 03-30-2025 Neutrophil, Absolute 5.4 10 3/mcL Normal 2.3-8.[address] [facility] Comment on above: Performed By: #### M ORPH, ANEU, ADIFF, CBC #### [place] [address] [place], [place] [address] BMPon 03-30-2025 BUN/Creatinine Ratio 24 ratio Normal 7-27 [facility] Comment on above: Performed By: #### M ORPH, ANEU, ADIFF, CBC #### [address] [address] Calcium [Mass/Vol] 9.0 mg/dL Normal 8.4-10.2 [facility] Comment on above: Performed By: #### M ORPH, ANEU, ADIFF, CBC #### [address] [address] Chloride [Moles/Vol] 108 mmol/L High 98-107 [facility] Comment on above: Performed By: #### M ORPH, ANEU, ADIFF, CBC #### [address] [address] CO2 [Moles/Vol] 26 mmol/L Normal 23-31 [facility] Comment on above: Performed By: #### M ORPH, ANEU, ADIFF, CBC #### [address] [address] Creatinine [Mass/Vol] 1.02 mg/dL High 0.51-0.95 [facility] Comment on above: Performed By: #### M ORPH, ANEU, ADIFF, CBC #### [address] [address] Electrolyte Balance 9.0 mEq/L Normal 4.0-15.0 [facility] Comment on above: Performed By: #### M ORPH, ANEU, ADIFF, CBC #### [address] [address] Glucose [Mass/Vol] 119 mg/dL High 80-115 [facility] Comment on above: Performed By: #### M ORPH, ANEU, ADIFF, CBC #### [address] [address] Potassium [Moles/Vol] 4.1 mmol/L Normal 3.5-5.1 [facility] Comment on above: Performed By: #### M ORPH, ANEU, ADIFF, CBC #### [address] [address] Sodium [Moles/Vol] 143 mmol/L Normal 136-145 [facility] Comment on above: Performed By: #### M ORPH ANEU, ADIFF, CBC #### [place] [id number] Urea nitrogen [Mass/Vol] 24 mg/dL High 7-18 [facility] Comment on above: Performed By: #### M ORPH ANEU, ADIFF, CBC #### [place] [id number] CBCon 03-30-2025 Erythrocyte distribution width (RBC) [Ratio] 20.4 % High 11.5-15.5 [facility] Comment on above: Performed By: #### M ORPH ANEU, ADIFF, CBC #### [place] [address] Hematocrit (Bld) [Volume fraction] 33.0 % Low 34.0-46.0 [facility] Comment on above: Performed By: #### M ORPH ANEU, ADIFF, CBC #### [place] [address] Hgb 10.7 G/dL Low 12.0-16.0 [facility] Comment on above: Performed By: #### M ORPH ANEU, ADIFF, CBC #### [place] [address] MCH (RBC) [Entitic mass] 31.1 pg Normal 27.0-33.0 [facility] Comment on above: Performed By: #### M ORPH ANEU, ADIFF, CBC #### [place] [address] MCHC 32.3 G/dL Normal 32.0-36.0 [facility] Comment on above: Performed By: #### M ORPH ANEU, ADIFF, CBC #### [place] [address] MCV (RBC) [Entitic vol] 96.2 fL Normal 80.0-99.0 [facility] Comment on above: Performed By: #### M ORPH, ANEU, ADIFF, CBC #### [place] [address] [place], [place] [address] Platelet 208 10 3/mcL Normal 150-450 [facility] Comment on above: Performed By: #### M ORSHAKIR ANEU, ADIFF, CBC #### [place] [address] [place], [place] [address] Platelet mean volume (Bld) [Entitic vol] 8.5 fL Normal 6.6-10.5 [facility] Comment on above: Performed By: #### M ORPH, ANEU, ADIFF, CBC #### [address] [address] RBC 3.44 10 6/mcL Low 4.10-5.30 [facility] Comment on above: Performed By: #### M ORPH, ANEU, ADIFF, CBC #### [address] [address] WBC 7.7 10 3/mcL Normal 4.5-10.8 [facility] Comment on above: Performed By: #### M ORPH, ANEU, ADIFF, CBC #### [address] [address] LABORATORYOrdered By: SYSTEM SYSTEM on 03-30-2025 Basophils [...] (Bld)on 03-26-2025 Basophils (Bld) [#/Vol] 0.05 10*3/uL [facility] Basophils/100 WBC (Bld) 0.4 % 0.0 - 2.0 % [facility] Eosinophils (Bld) [#/Vol] 0 10*3/uL [facility] Eosinophils/100 WBC (Bld) 0 % 0.0 - 6.0 % [facility] Erythrocyte distribution width (RBC) [Ratio] 17.2 % High 11.5 - 14.5 % [facility] Hematocrit (Bld) [Volume fraction] 28.8 % Low 36.0 - 46.0 % [facility] Hemoglobin (Bld) [Mass/Vol] 8.9 g/dL Low 12.0 - 16.0 g/dL [facility] Immature granulocytes (Bld) [#/Vol] 0.06 10*3/uL [facility] Immature granulocytes/100 WBC (Bld) 0.5 % 0.0 - 0.9 % [facility] Comment on above: Immature Granulocyte Count (IG) includes promyelocytes, myelocytes and metamyelocytes but does not include bands. Percent differential counts (%) should be interpreted in the context of the absolute cell counts (cells/UL). Interpretation and review of laboratory results Abnormal [facility] Lymphocytes (Bld) [#/Vol] 1.58 10*3/uL [facility] Lymphocytes/100 WBC (Bld) 13.5 % 13.0 - 44.0 % [facility] MCH (RBC) [Entitic mass] 29.9 pg 26. 0 - 34.0 pg [facility] MCHC (RBC) [Mass/Vol] 30.9 g/dL Low 32.0 - 36.0 g/dL [facility] MCV (RBC) [Entitic vol] 97 fL 80 - 100 fL [facility] Monocytes (Bld) [#/Vol] 0.58 10*3/uL [facility] Monocytes/100 WBC (Bld) 5 % 2.0 - 10.0 % [facility] Neutrophils (Bld) [#/Vol] 9.4 10*3/uL High [facility] Comment on above: Percent differential counts (%) should be interpreted in the context of the absolute cell counts (cells/uL). Neutrophils/100 WBC (Bld) 80.6 % 40.0 - 80.0 % [facility] Nucleated RBC/100 WBC (Bld) [Ratio] 0 % [facility] Platelets (Bld) [#/Vol] 202 10*3/uL [facility] RBC (Bld) [#/Vol] 2.98 10*6/uL Low [facility] WBC (Bld) [#/Vol] 11.7 10*3/uL High [facility] Basophils (Bld) [#/Vol] 0.05 x10*3/uL Normal 0.00-0.10 [facility] Comment on above: Performed By: #### 2 4323-8 #### LOPEZ Coreas ([address]) [facility] ([facility]) [address] [place] [address] Basophils/100 WBC (Bld) 0.4 % Normal 0.0-2.0 [facility] [facility] Comment on above: Performed By: #### 2 6833-8 #### LOPEZ Coreas ([id number]) [facility] ([facility]) [address] [place] [address] 24163 Eosinophils (Bld) [#/Vol] 0.00 x10*3/uL Normal 0.00-0.70 [facility] Comment on above: Performed By: #### 2 4323-8 #### LOPEZ Coreas (75865) [facility] ([facility]) [address] [place] [address] 45004 Eosinophils/100 WBC (Bld) 0.0 % Normal 0.0-6.0 [facility] Comment on above: Performed By: #### 2 4323-8 #### LOPEZ Coreas (93459) [facility] ([facility]) [address] [place] [address] 85429 Erythrocyte distribution width (RBC) [Ratio] 17.2 % High 11.5-14.5 [facility] Comment on above: Performed By: #### 2 432-8 #### LOPEZ Coreas (98671) [facility] ([facility]) [address] [place] [address] 71397 Hematocrit (Bld) [Volume fraction] 28.8 % Low 36.0-46.0 [facility] Comment on above: Performed By: #### 2 4323-8 #### LOPEZ Coreas (17041) [facility] ([facility]) [address] [place] [address] 81230 Hemoglobin (Bld) [Mass/Vol] 8.9 g/dL Low 12.0-16.0 [facility] Comment on above: Performed By: #### 2 4323-8 #### LOPEZ Coreas (80076) [facility] ([facility]) [address] [place] [address] 64405 Immature granulocytes (Bld) [#/Vol] 0.06 x10*3/uL Normal 0.00-0.70 [facility] Comment on above: Performed By: #### 2 4323-8 #### LOPEZ Coreas (60596) [facility] ([facility]) [address] [place] [address] Immature granulocytes/100 WBC (Bld) 0.5 % Normal 0.0-0.9 [facility] Comment on above: Result Comment: Leonora ture Granulocyte Count (IG) includes promyelocytes, myelocytes and metamyelocytes but does not include bands. Percent differential counts (%) should be interpreted in the context of the absolute cell counts (cells/UL). Performed By: #### 2 4323-8 #### LOPEZ Coreas (67934) [facility] ([facility]) [address] [place] [address] 69983 Lymphocytes (Bld) [#/Vol] 1.58 x10*3/uL Normal 1.20-4.80 [facility] Comment on above: Performed By: #### 2 4323-8 #### LOPEZ Coreas (02448) [facility] ([facility]) [address] [place] [address] 17338 Lymphocytes/100 WBC (Bld) 13.5 % Normal 13.0-44.0 [facility] Comment on above: Performed By: #### 2 4323-8 #### LOPEZ Coreas (57256) [facility] ([facility]) [address] [place] [address] 65585 MCH (RBC) [Entitic mass] 29.9 pg Normal 26.0-34.0 [facility] Comment on above: Performed By: #### 2 4323-8 #### LOPEZ Coreas (87837) [facility] ([facility]) [address] [place] [address] 03771 MCHC (RBC) [Mass/Vol] 30.9 g/dL Low 32.0-36.0 [facility] Comment on above: Performed By: #### 2 4323-8 #### LOPEZ Coreas (40157) [facility] ([facility]) [address] [place] [address] 84704 MCV (RBC) [Entitic vol] 97 fL Normal 80-100 U [facility] Comment on above: Performed By: #### 2 4323-8 #### LOPEZ Coreas (05693) [facility] ([facility]) [address] [place] [address] 84856 Monocytes (Bld) [#/Vol] 0.58 x10*3/uL Normal 0.10-1.00 [facility] Comment on above: Performed By: #### 2 4323-8 #### LOPEZ Coreas (97149) [facility] ([facility]) [address] [place] [address] 90625 Monocytes/100 WBC (Bld) 5.0 % Normal 2.0-10.0 [facility] Comment on above: Performed By: #### 2 4323-8 #### LOPEZ Coreas (24244) [facility] ([facility]) [address] [place] [address] 66642 Neutrophils (Bld) [#/Vol] 9.40 x10*3/uL High 1.20-7.70 [facility] Comment on above: Result Comment: Perc ent differential counts (%) should be interpreted in the context of the absolute cell counts (cells/uL). Performed By: #### 2 4323-8 #### LOPEZ Coreas (25711) [facility] ([facility]) [address] [place] [address] 61456 Neutrophils/100 WBC (Bld) 80.6 % Normal 40.0-80.0 [facility] Comment on above: Performed By: #### 2 4323-8 #### LOPEZ Coreas (31236) [facility] ([facility]) [address] [place] [address] 78111 Nucleated RBC/100 WBC (Bld) [Ratio] 0.0 /100 WBCs Normal 0.0-0.0 [facility] Comment on above: Performed By: #### 2 4323-8 #### LOPEZ Coreas (26464) [facility] ([facility]) [address] [place] [address] 58230 Platelets (Bld) [#/Vol] 202 x10*3/uL Normal 150-450 [facility] Comment on above: Performed By: #### 2 4323-8 #### LOPEZ Coreas (24763) [facility] ([facility]) [address] [place] [address] RBC (Bld) [#/Vol] 2.98 x10*6/uL Low 4.00-5.20 [facility] Comment on above: Performed By: #### 2 4323-8 #### LOPEZ Coreas (25399) [facility] ([facility]) [address] [place] [address] WBC (Bld) [#/Vol] 11.7 x10*3/uL High 4.4-11.3 [facility] Comment on above: Performed By: #### 2 4323-8 #### LOPEZ Coreas (15797) [facility] ([facility]) [address] [place] [address] Magnesiumon 03-26-2025 Magnesium [Mass/Vol] 1.99 mg/dL 1.60 - 2.40 mg/dL [facility] Magnesium [Mass/Vol] 1.99 mg/dL Normal 1.60-2.40 [facility] Comment on above: Performed By: #### 1 9123-9 ####LOPEZ Coreas (07510)[facility] ([facility])[address] [place] [address] 44822 Magnesium [Mass/Vol]on 03-26 Interpretation and review of laboratory results Normal [facility] No Panel Informationon 03-26 [facility] Renal function 2000 panelon 03-26-2025 Albumin BCP dye [Mass/Vol] 3.9 g/dL 3.4 - 5.0 g/dL [facility] Anion gap [Moles/Vol] 11 mmol/L 10 - 2 0 mmol/L [facility] Calcium [Mass/Vol] 8.9 mg/dL 8.6 - 10. 6 mg/dL [facility] Chloride [Moles/Vol] 111 mmol/L High 98 - 10 7 mmol/L [facility] CO2 [Moles/Vol] 24 mmol/L 21 - 32 mmol/L [facility] Creatinine [Mass/Vol] 0.98 mg/dL 0.50 - 1.05 mg/dL [facility] GFR/1.73 sq M.predicted among non-blacks MDRD (S/P/Bld) [Vol rate/Area] 63 mL/min/{1.73_m2} - PINF [facility] Comment on above: Calculations of araceli mated GFR are performed using the 2020 CKD-EPI Study Refit equation without the race variable for the IDMS-Traceable creatinine methods. https://jasn.asnjournals.org/content///ASN.883 2922109 Glucose [Mass/Vol] 101 mg/dL High 74 - 99 mg/dL [facility] Interpretation and review of laboratory results Abnormal [facility] Phosphate [Mass/Vol] 2.9 mg/dL 2.5 - 4 .9 mg/dL [facility] Potassium [Moles/Vol] 4.1 mmol/L 3.5 - 5.3 mmol/L [facility] Sodium [Moles/Vol] 142 mmol/L 136 - 145 mmol/L [facility] Urea nitrogen [Mass/Vol] 18 mg/dL 6 - 23 mg/dL [facility] Albumin BCP dye [Mass/Vol] 3.9 g/dL Normal 3.4-5.0 [facility] Comment on above: Performed By: #### 2 4362-6 ####LOPEZ Coreas (61862)[facility] ([facility])[address] [place] [address] Anion gap [Moles/Vol] 11 mmol/L Normal 10-20 [facility] Comment on above: Performed By: #### 2 4362-6 ####LOPEZ Coreas (33035)[facility] ([facility])[address] [place] [address] Calcium [Mass/Vol] 8.9 mg/dL Normal 8.6-10.6 [facility] Comment on above: Performed By: #### 2 4362-6 ####LOPEZ Coreas (70520)[facility] ([facility])[address] [place] [address] Chloride [Moles/Vol] 111 mmol/L High 98-107 [facility] Comment on above: Performed By: #### 2 4362-6 ####LOPEZ FAN L (42305)[facility] ([facility])[address] [place] [address] CO2 [Moles/Vol] 24 mmol/L Normal 21-32 [facility] Comment on above: Performed By: #### 2 4362-6 ####LOPEZ Coreas (71272)[facility] ([facility])[address] [place] [address] Creatinine [Mass/Vol] 0.98 mg/dL Normal 0.50-1.05 [facility] Comment on above: Performed By: #### 2 4362-6 ####LOPEZ Coreas (29242)[facility] ([facility])[address] [place] [address] Glomerular filtration rate/1.73 sq M.predicted 63 mL/min/1.73m*2 Normal >60 [facility] Comment on above: Result Comment: Calc ulations of estimated GFR are performed using the 2020 CKD-EPI Study Refit equation without the race variable for the IDMS-Traceable creatinine methods. https://jasn.asnjournals.org/content/early/ASN.669 6844086 Performed By: #### 2 4362-6 ####LOPEZ Coreas (58069)[facility] ([facility])[address] [place] [address] Glucose [Mass/Vol] 101 mg/dL High 74-99 [facility] Comment on above: Performed By: #### 2 4362-6 ####LOPEZ FAN L (25473)[facility] ([facility])[address] [place] [address] Phosphate [Mass/Vol] 2.9 mg/dL Normal 2.5-4.9 [facility] Comment on above: Performed By: #### 2 4362-6 ####LOPEZ Coreas (68592)[facility] ([facility])[address] [place] [address]10 Potassium [Moles/Vol] 4.1 mmol/L Normal 3.5-5.3 [facility] Comment on above: Performed By: #### 2 4362-6 ####LOPEZ Coreas (98103)[facility] ([facility])[address] [place] [address] 69980 Sodium [Moles/Vol] 142 mmol/L Normal 136-145 [facility] Comment on above: Performed By: #### 2 4362-6 ####LOPEZ Coreas (73832)[facility] ([facility])[address] [place] [address] 23212 Urea nitrogen [Mass/Vol] 18 mg/dL Normal 6-23 [facility] Comment on above: Performed By: #### 2 4362-6 ####LOPEZ Coreas (81347)[facility] ([facility])[address] [place] [address] 57465 Blood type and Indirect anti body screen panel (Bld)on 03-25-2025 ABO group Nom (Bld) A [facility] Blood group antibody screen Ql Negative [facility] D Ag Ql (Bld) Positive [facility] ABO group Nom (Bld) A Normal [facility] Comment on above: Performed By: #### 2 4323-8 #### LOPEZ Coreas (64132) [facility] ([facility]) [address] [place] [address] 68799 Blood group antibody screen Ql Negative Normal [facility] Comment on above: Performed By: #### 2 4323-8 #### LOPEZ Coreas (25782) [facility] ([facility]) [address] [place] [address] 73839 D Ag Ql (Bld) Positive Normal [facility] Comment on above: Performed By: #### 2 4323-8 #### LOPEZ Coreas (09593) [facility] ([facility]) [address] [place] [id number] CBC W Auto Differential pane l (Bld)on 03-25-2025 Basophils (Bld) [#/Vol] 0.12 10*3/uL High [facility] Basophils/100 WBC (Bld) 1.5 % 0.0 - 2.0 % [facility] Eosinophils (Bld) [#/Vol] 0.34 10*3/uL [facility] Eosinophils/100 WBC (Bld) 4.3 % 0.0 - 6.0 % [facility] Erythrocyte distribution width (RBC) [Ratio] 17.5 % High 11.5 - 14.5 % [facility] Hematocrit (Bld) [Volume fraction] 30.9 % Low 36.0 - 46.0 % [facility] Hemoglobin (Bld) [Mass/Vol] 9.2 g/dL Low 12.0 - 16.0 g/dL [facility] Immature granulocytes (Bld) [#/Vol] 0.02 10*3/uL [facility] Immature granulocytes/100 WBC (Bld) 0.3 % 0.0 - 0.9 % [facility] Comment on above: Immature Granulocyte Count (IG) includes promyelocytes, myelocytes and metamyelocytes but does not include bands. Percent differential counts (%) should be interpreted in the context of the absolute cell counts (cells/UL). Interpretation and review of laboratory results Abnormal [facility] Lymphocytes (Bld) [#/Vol] 1.87 10*3/uL [facility] Lymphocytes/100 WBC (Bld) 23.6 % 13.0 - 44.0 % [facility] MCH (RBC) [Entitic mass] 28.9 pg 26. 0 - 34.0 pg [facility] MCHC (RBC) [Mass/Vol] 29.8 g/dL Low 32.0 - 36.0 g/dL [facility] MCV (RBC) [Entitic vol] 97 fL 80 - 100 fL [facility] Monocytes (Bld) [#/Vol] 0.49 10*3/uL [facility] Monocytes/100 WBC (Bld) 6.2 % 2.0 - 10.0 % [facility] Neutrophils (Bld) [#/Vol] 5.07 10*3/uL [facility] Comment on above: Percent differential counts (%) should be interpreted in the context of the absolute cell counts (cells/uL). Neutrophils/100 WBC (Bld) 64.1 % 40.0 - 80.0 % [facility] Nucleated RBC/100 WBC (Bld) [Ratio] 0 % [facility] Platelets (Bld) [#/Vol] 201 10*3/uL [facility] RBC (Bld) [#/Vol] 3.18 10*6/uL Low [facility] WBC (Bld) [#/Vol] 7.9 10*3/uL [facility] Basophils (Bld) [#/Vol] 0.12 x10*3/uL High 0.00-0.10 [facility] Comment on above: Performed By: #### 2 4323-8 #### LOPEZ Coreas (86111) [facility] ([facility]) [address] [place] [address] 16417 Basophils/100 WBC (Bld) 1.5 % Normal 0.0-2.0 U [facility] Comment on above: Performed By: #### 2 4323-8 #### LOPEZ Coreas (30666) [facility] ([facility]) [address] [place] [address] Eosinophils (Bld) [#/Vol] 0.34 x10*3/uL Normal 0.00-0.70 [facility] Comment on above: Performed By: #### 2 4323-8 #### LOPEZ Coreas (98318) [facility] ([facility]) [address] [place] [address] Eosinophils/100 WBC (Bld) 4.3 % Normal 0.0-6.0 [facility] Comment on above: Performed By: #### 2 4323-8 #### LOPEZ Coreas (13614) [facility] ([facility]) [address] [place] [address] 73369 Erythrocyte distribution width (RBC) [Ratio] 17.5 % High 11.5-14.5 [facility] Comment on above: Performed By: #### 2 4323-8 #### LOPEZ Coreas (54977) [facility] ([facility]) [address] [place] [address] 37407 Hematocrit (Bld) [Volume fraction] 30.9 % Low 36.0-46.0 [facility] Comment on above: Performed By: #### 2 4323-8 #### LOPEZ Coreas (95271) [facility] ([facility]) [address] [place] [address] 51693 Hemoglobin (Bld) [Mass/Vol] 9.2 g/dL Low 12.0-16.0 [facility] Comment on above: Performed By: #### 2 4323-8 #### LOPEZ Coreas (22659) [facility] ([facility]) [address] [place] [address] 12533 Immature granulocytes (Bld) [#/Vol] 0.02 x10*3/uL Normal 0.00-0.70 [facility] Comment on above: Performed By: #### 2 4323-8 #### LOPEZ Coreas (99461) [facility] ([facility]) [address] [place] [address] 48796 Immature granulocytes/100 WBC (Bld) 0.3 % Normal 0.0-0.9 [facility] Comment on above: Result Comment: Leonora ture Granulocyte Count (IG) includes promyelocytes, myelocytes and metamyelocytes but does not include bands. Percent differential counts (%) should be interpreted in the context of the absolute cell counts (cells/UL). Performed By: #### 2 4323-8 #### LOPEZ Coreas (20159) [facility] ([facility]) [address] [place] [address] 86943 Lymphocytes (Bld) [#/Vol] 1.87 x10*3/uL Normal 1.20-4.80 [facility] Comment on above: Performed By: #### 2 4323-8 #### LOPEZ Coreas (84463) [facility] ([facility]) [address] [place] [address] 38309 Lymphocytes/100 WBC (Bld) 23.6 % Normal 13.0-44.0 [facility] Comment on above: Performed By: #### 2 4323-8 #### LOPEZ Coreas (56195) [facility] ([facility]) [address] [place] [address] 49862 MCH (RBC) [Entitic mass] 28.9 pg Normal 26.0-34.0 [facility] Comment on above: Performed By: #### 2 4323-8 #### LOPEZ Coreas (11369) [facility] ([facility]) [address] [place] [address] 19033 MCHC (RBC) [Mass/Vol] 29.8 g/dL Low 32.0-36.0 [facility] Comment on above: Performed By: #### 2 4323-8 #### LOPEZ Coreas (47442) [facility] ([facility]) [address] [place] [address] 28731 MCV (RBC) [Entitic vol] 97 fL Normal 80-100 U [facility] Comment on above: Performed By: #### 2 4323-8 #### LOPEZ Coreas (99258) [facility] ([facility]) [address] [place] [address] 93047 Monocytes (Bld) [#/Vol] 0.49 x10*3/uL Normal 0.10-1.00 [facility] Comment on above: Performed By: #### 2 4323-8 #### LOPEZ Coreas (79275) [facility] ([facility]) [address] [place] [address] 98990 Monocytes/100 WBC (Bld) 6.2 % Normal 2.0-10.0 U [facility] Comment on above: Performed By: #### 2 4323-8 #### LOPEZ Coreas (27971) [facility] ([facility]) [address] [place] [address] 51529 Neutrophils (Bld) [#/Vol] 5.07 x10*3/uL Normal 1.20-7.70 [facility] Comment on above: Result Comment: Perc ent differential counts (%) should be interpreted in the context of the absolute cell counts (cells/uL). Performed By: #### 2 4323-8 #### LOPEZ Coreas (55471) [facility] ([facility]) [address] [place] [address] 51598 Neutrophils/100 WBC (Bld) 64.1 % Normal 40.0-80.0 [facility] Comment on above: Performed By: #### 2 4323-8 #### LOPEZ Coreas (77697) [facility] ([facility]) [address] [place] [address] 84077 Nucleated RBC/100 WBC (Bld) [Ratio] 0.0 /100 WBCs Normal 0.0-0.0 [facility] Comment on above: Performed By: #### 2 4323-8 #### LOPEZ Coreas (23306) [facility] ([facility]) [address] [place] [address] Platelets (Bld) [#/Vol] 201 x10*3/uL Normal 150-450 [facility] Comment on above: Performed By: #### 2 4323-8 #### LOPEZ Coreas (00699) [facility] ([facility]) [address] [place] [address] RBC (Bld) [#/Vol] 3.18 x10*6/uL Low 4.00-5.20 [facility] Comment on above: Performed By: #### 2 4323-8 #### LOPEZ Coreas (18768) [facility] ([facility]) [address] [place] [address] 71997 WBC (Bld) [#/Vol] 7.9 x10*3/uL Normal 4.4-11.3 [facility] Comment on above: Performed By: #### 2 4323-8 #### LOPEZ Coreas (51922) [facility] ([facility]) [address] [place] [address] ENTEROSCOPYon 03-25-2025 ENTEROSCOPY Table formatting fro m [...] extent visualized. Recommendations Follow up with primary it systems administrator, Ivan Cotto DO - [facility]. Follow up with primary care physician, [...] PM Specimens No specimens collected Procedure Location [facility] [address] [facility] [address] Referring Provider Meir Hood MD Procedure Provider Matti Hodge MD [facility] Enteroscopy Study observatio n Narrativeon 03-25-2025 [...] extent visualized. Recommendations Follow up with primary it systems administrator, Ivan Cotto DO - [facility]. Follow up with primary care physician, Florin Bailey DO. Follow up with Kena Asencio MD - Inpatient [facility] for further evaluation and management. Follow [...] PM Specimens No specimens collected Procedure Location [facility] [address] [place] [id number] Referring Provider Meir Hood MD Procedure Provider Matti Hodge MD [facility] Work Phone: [facility] Work Phone: Radiology Study observation (narrative) [facility] Work Phone: Magnesiumon 03-25-2025 Magnesium [Mass/Vol] 2.03 mg/dL 1.60 - 2.40 mg/dL [facility] Magnesium [Mass/Vol] 2.03 mg/dL Normal 1.60-2.40 [facility] Comment on above: Performed By: #### 2 4323-8 #### LOPEZ Coreas (98433) [facility] ([facility]) [address] [place] [address] Magnesium [Mass/Vol]on 03-25 Interpretation and review of laboratory results Normal [facility] No Panel Informationon 03-25 [facility] Renal function 2000 panelon 03-25-2025 Albumin BCP dye [Mass/Vol] 3.8 g/dL 3.4 - 5.0 g/dL [facility] Anion gap [Moles/Vol] 14 mmol/L 10 - 2 0 mmol/L [facility] Calcium [Mass/Vol] 8.9 mg/dL 8.6 - 10. 6 mg/dL [facility] Chloride [Moles/Vol] 110 mmol/L High 98 - 10 7 mmol/L [facility] CO2 [Moles/Vol] 22 mmol/L 21 - 32 mmol/L [facility] Creatinine [Mass/Vol] 1.02 mg/dL 0.50 - 1.05 mg/dL [facility] GFR/1.73 sq M.predicted among non-blacks MDRD (S/P/Bld) [Vol rate/Area] 60 mL/min/{1.73_m2} Low - PINF [facility] Comment on above: Calculations of araceli mated GFR are performed using the 2020 CKD-EPI Study Refit equation without the race variable for the IDMS-Traceable creatinine methods. https://jasn.asnjournals.org/content/early/ASN.076 7030707 Glucose [Mass/Vol] 90 mg/dL 74 - 99 mg/dL [facility] Interpretation and review of laboratory results Abnormal [facility] Phosphate [Mass/Vol] 3.8 mg/dL 2.5 - 4 .9 mg/dL [facility] Potassium [Moles/Vol] 3.9 mmol/L 3.5 - 5.3 mmol/L [facility] Sodium [Moles/Vol] 142 mmol/L 136 - 145 mmol/L [facility] Urea nitrogen [Mass/Vol] 20 mg/dL 6 - 23 mg/dL [facility] Albumin BCP dye [Mass/Vol] 3.8 g/dL Normal 3.4-5.0 [facility] Comment on above: Performed By: #### 2 4323-8 #### LOPEZ Coreas (28296) [facility] ([facility]) [address] [place] [address] 74547 Anion gap [Moles/Vol] 14 mmol/L Normal 10-20 [facility] Comment on above: Performed By: #### 2 4323-8 #### LOPEZ Coreas (03069) [facility] ([facility]) [address] [place] [address] [address] Calcium [Mass/Vol] 8.9 mg/dL Normal 8.6-10.6 [facility] Comment on above: Performed By: #### 2 4323-8 #### LOPEZ Coreas ([id number]) [facility] ([facility]) [address] [place] [address] Chloride [Moles/Vol] 110 mmol/L High 98-107 [facility] Comment on above: Performed By: #### 2 4323-8 #### LOPEZ Coreas (46351) [facility] ([facility]) [address] [place] [address] CO2 [Moles/Vol] 22 mmol/L Normal 21-32 [facility] Comment on above: Performed By: #### 2 4323-8 #### LOPEZ Coreas ([id number]) [facility] ([facility]) [address] [place] [address] Creatinine [Mass/Vol] 1.02 mg/dL Normal 0.50-1.05 [facility] Comment on above: Performed By: #### 2 4323-8 #### LOPEZ Coreas ([id number]) [facility] ([facility]) [address] [place] [address] Glomerular filtration rate/1.73 sq M.predicted 60 mL/min/1.73m*2 Low >60 [facility] Comment on above: Result Comment: Calc ulations of estimated GFR are performed using the 2020 CKD-EPI Study Refit equation without the race variable for the IDMS-Traceable creatinine methods. https://jasn.asnjournals.org/content//ASN.102 6650925 Performed By: #### 2 4323-8 #### LOPEZ Coreas ([id number]) [facility] ([facility]) [address] [place] [address] Glucose [Mass/Vol] 90 mg/dL Normal 74-99 [facility] Comment on above: Performed By: #### 2 4323-8 #### LOPEZ Coreas (60153) [facility] ([facility]) [address] [place] [address] Phosphate [Mass/Vol] 3.8 mg/dL Normal 2.5-4.9 [facility] Comment on above: Performed By: #### 2 4323-8 #### LOPEZ FAN L (56701) [facility] ([facility]) [address] [place] [address] Potassium [Moles/Vol] 3.9 mmol/L Normal 3.5-5.3 [facility] Comment on above: Performed By: #### 2 4323-8 #### LOPEZ Coreas (63809) [facility] ([facility]) [address] [place] [address] Sodium [Moles/Vol] 142 mmol/L Normal 136-145 [facility] Comment on above: Performed By: #### 2 4323-8 #### LOPEZ FAN L ([id number]) [facility] ([facility]) [id number] [place] [address] Urea nitrogen [Mass/Vol] 20 mg/dL Normal 6-23 [facility] Comment on above: Performed By: #### 2 4323-8 #### LOPEZ FAN L ([id number]) [facility] ([facility]) [id number] [place] [address] CBC W Auto Differential pane l (Bld)on 03-24-2025 Basophils (Bld) [#/Vol] 0.12 10*3/uL High [facility] Basophils/100 WBC (Bld) 1.4 % 0.0 - 2.0 % [facility] Eosinophils (Bld) [#/Vol] 0.22 10*3/uL [facility] Eosinophils/100 WBC (Bld) 2.5 % 0.0 - 6.0 % [facility] Erythrocyte distribution width (RBC) [Ratio] 17.5 % High 11.5 - 14.5 % [facility] Hematocrit (Bld) [Volume fraction] 31.8 % Low 36.0 - 46.0 % [facility] Hemoglobin (Bld) [Mass/Vol] 9.4 g/dL Low 12.0 - 16.0 g/dL [facility] Immature granulocytes (Bld) [#/Vol] 0.05 10*3/uL [facility] Immature granulocytes/100 WBC (Bld) 0.6 % 0.0 - 0.9 % [facility] Comment on above: Immature Granulocyte Count (IG) includes promyelocytes, myelocytes and metamyelocytes but does not include bands. Percent differential counts (%) should be interpreted in the context of the absolute cell counts (cells/UL). Interpretation and review of laboratory results Abnormal [facility] Lymphocytes (Bld) [#/Vol] 1.29 10*3/uL [facility] Lymphocytes/100 WBC (Bld) 14.6 % 13.0 - 44.0 % [facility] MCH (RBC) [Entitic mass] 28.9 pg 26. 0 - 34.0 pg [facility] MCHC (RBC) [Mass/Vol] 29.6 g/dL Low 32.0 - 36.0 g/dL [facility] MCV (RBC) [Entitic vol] 98 fL 80 - 100 fL [facility] Monocytes (Bld) [#/Vol] 0.37 10*3/uL [facility] Monocytes/100 WBC (Bld) 4.2 % 2.0 - 10.0 % [facility] Neutrophils (Bld) [#/Vol] 6.78 10*3/uL [facility] Comment on above: Percent differential counts (%) should be interpreted in the context of the absolute cell counts (cells/uL). Neutrophils/100 WBC (Bld) 76.7 % 40.0 - 80.0 % [facility] Nucleated RBC/100 WBC (Bld) [Ratio] 0 % [facility] Platelets (Bld) [#/Vol] 203 10*3/uL [facility] RBC (Bld) [#/Vol] 3.25 10*6/uL Low [facility] WBC (Bld) [#/Vol] 8.8 10*3/uL [facility] Basophils (Bld) [#/Vol] 0.12 x10*3/uL High 0.00-0.10 [facility] Comment on above: Performed By: #### 2 4323-8 #### LOPEZ Coreas ([id number]) [facility] ([facility]) [address] [place] [address]387 Basophils/100 WBC (Bld) 1.4 % Normal 0.0-2.0 [facility] Comment on above: Performed By: #### 2 4323-8 #### LOPEZ Coreas (63243) [facility] ([facility]) [address] [place] [address] Eosinophils (Bld) [#/Vol] 0.22 x10*3/uL Normal 0.00-0.70 [facility] Comment on above: Performed By: #### 2 4323-8 #### LOPEZ Coreas (94841) [facility] ([facility]) [address] [place] [address] Eosinophils/100 WBC (Bld) 2.5 % Normal 0.0-6.0 [facility] Comment on above: Performed By: #### 2 4323-8 #### LOPEZ Coreas (14415) [facility] ([facility]) [address] [place] [address]258 Erythrocyte distribution width (RBC) [Ratio] 17.5 % High 11.5-14.5 [facility] Comment on above: Performed By: #### 2 4323-8 #### LOPEZ Coreas (00783) [facility] ([facility]) [address] [place] [address] Hematocrit (Bld) [Volume fraction] 31.8 % Low 36.0-46.0 [facility] Comment on above: Performed By: #### 2 4323-8 #### LOPEZ Coreas (58487) [facility] ([facility]) [address] [place] [address] Hemoglobin (Bld) [Mass/Vol] 9.4 g/dL Low 12.0-16.0 [facility] Comment on above: Performed By: #### 2 4323-8 #### LOPEZ Coreas (48769) [facility] ([facility]) [address] [place] [address]183 Immature granulocytes (Bld) [#/Vol] 0.05 x10*3/uL Normal 0.00-0.70 [facility] Comment on above: Performed By: #### 2 4323-8 #### LOPEZ Coreas (45966) [facility] ([facility]) [address] [place] [address]186 Immature granulocytes/100 WBC (Bld) 0.6 % Normal 0.0-0.9 [facility] Comment on above: Result Comment: Leonora ture Granulocyte Count (IG) includes promyelocytes, myelocytes and metamyelocytes but does not include bands. Percent differential counts (%) should be interpreted in the context of the absolute cell counts (cells/UL). Performed By: #### 2 4323-8 #### LOPEZ Coreas (99805) [facility] ([facility]) [address] [place] [address] Lymphocytes (Bld) [#/Vol] 1.29 x10*3/uL Normal 1.20-4.80 [facility] Comment on above: Performed By: #### 2 4323-8 #### LOPEZ Coreas (52506) [facility] ([facility]) [address] [place] [address] Lymphocytes/100 WBC (Bld) 14.6 % Normal 13.0-44.0 [facility] Comment on above: Performed By: #### 2 4323-8 #### LOPEZ Coreas (43537) [facility] ([facility]) [address] [place] [address] MCH (RBC) [Entitic mass] 28.9 pg Normal 26.0-34.0 [facility] Comment on above: Performed By: #### 2 4323-8 #### LOPEZ Coreas (99352) [facility] ([facility]) [address] [place] [address] MCHC (RBC) [Mass/Vol] 29.6 g/dL Low 32.0-36.0 [facility] Comment on above: Performed By: #### 2 4323-8 #### LOPEZ Coreas (48946) [facility] ([facility]) [address] [place] [address] MCV (RBC) [Entitic vol] 98 fL Normal 80-100 [facility] Comment on above: Performed By: #### 2 4323-8 #### LOPEZ Coreas (11540) [facility] ([facility]) [address] [place] [address] Monocytes (Bld) [#/Vol] 0.37 x10*3/uL Normal 0.10-1.00 [facility] Comment on above: Performed By: #### 2 4323-8 #### LOPEZ Coreas (89114) [facility] ([facility]) [address] [place] [address] 12271 Monocytes/100 WBC (Bld) 4.2 % Normal 2.0-10.0 [facility] Comment on above: Performed By: #### 2 4323-8 #### LOPEZ Coreas ([id number]) [facility] ([facility]) [address] [place] [address] 63747 Neutrophils (Bld) [#/Vol] 6.78 x10*3/uL Normal 1.20-7.70 [facility] Comment on above: Result Comment: Perc ent differential counts (%) should be interpreted in the context of the absolute cell counts (cells/uL). Performed By: #### 2 4323-8 #### LOPEZ Coreas ([id number]) [facility] ([facility]) [address] [place] [address] 69508 Neutrophils/100 WBC (Bld) 76.7 % Normal 40.0-80.0 [facility] Comment on above: Performed By: #### 2 4323-8 #### LOPEZ Coreas (87598) [facility] ([facility]) [address] [place] [address] 75531 Nucleated RBC/100 WBC (Bld) [Ratio] 0.0 /100 WBCs Normal 0.0-0.0 [facility] Comment on above: Performed By: #### 2 4323-8 #### LOPEZ Coreas (83989) [facility] ([facility]) [address] [place] [address] 00943 Platelets (Bld) [#/Vol] 203 x10*3/uL Normal 150-450 [facility] Comment on above: Performed By: #### 2 4323-8 #### LOPEZ Coreas (07109) [facility] ([facility]) [address] [place] [address] 74558 RBC (Bld) [#/Vol] 3.25 x10*6/uL Low 4.00-5.20 [facility] Comment on above: Performed By: #### 2 4323-8 #### LOPEZ Coreas (56009) [facility] ([facility]) [address] [place] [address] 74158 WBC (Bld) [#/Vol] 8.8 x10*3/uL Normal 4.4-11.3 [facility] Comment on above: Performed By: #### 2 4323-8 #### LOPEZ Coreas (49177) [facility] ([facility]) [address] [place] [address] 16429 Magnesiumon 03-24-2025 Magnesium [Mass/Vol] 2.17 mg/dL 1.60 - 2.40 mg/dL [facility] Magnesium [Mass/Vol] 2.17 mg/dL Normal 1.60-2.40 [facility] Comment on above: Performed By: #### 2 4323-8 #### LOPEZ Coreas (86538) [facility] ([facility]) [address] [place] [address] 10881 Magnesium [Mass/Vol]on 03-24 Interpretation and review of laboratory results Normal [facility] No Panel Informationon 03-24 [facility] Renal function 2000 panelon 03-24-2025 Albumin BCP dye [Mass/Vol] 3.9 g/dL 3.4 - 5.0 g/dL [facility] Anion gap [Moles/Vol] 12 mmol/L 10 - 2 0 mmol/L [facility] Calcium [Mass/Vol] 8.8 mg/dL 8.6 - 10. 6 mg/dL [facility] Chloride [Moles/Vol] 109 mmol/L High 98 - 10 7 mmol/L [facility] CO2 [Moles/Vol] 24 mmol/L 21 - 32 mmol/L [facility] Creatinine [Mass/Vol] 1.02 mg/dL 0.50 - 1.05 mg/dL [facility] GFR/1.73 sq M.predicted among non-blacks MDRD (S/P/Bld) [Vol rate/Area] 60 mL/min/{1.73_m2} Low - PINF [facility] Comment on above: Calculations of araceli mated GFR are performed using the 2020 CKD-EPI Study Refit equation without the race variable for the IDMS-Traceable creatinine methods. https://jasn.asnjournals.org/content//ASN.945 0261268 Glucose [Mass/Vol] 122 mg/dL High 74 - 99 mg/dL [facility] Interpretation and review of laboratory results Abnormal [facility] Phosphate [Mass/Vol] 2.8 mg/dL 2.5 - 4 .9 mg/dL [facility] Potassium [Moles/Vol] 3.7 mmol/L 3.5 - 5.3 mmol/L [facility] Sodium [Moles/Vol] 141 mmol/L 136 - 145 mmol/L [facility] Urea nitrogen [Mass/Vol] 20 mg/dL 6 - 23 mg/dL [facility] Albumin BCP dye [Mass/Vol] 3.9 g/dL Normal 3.4-5.0 [facility] Comment on above: Performed By: #### 2 4323-8 #### LOPEZ Coreas ([id number]) [facility] ([facility]) [address] [place] [address] Anion gap [Moles/Vol] 12 mmol/L Normal 10-20 [facility] Comment on above: Performed By: #### 2 4323-8 #### LOPEZ FAN L (96758) [facility] ([facility]) [address] [place] [address] Calcium [Mass/Vol] 8.8 mg/dL Normal 8.6-10.6 [facility] Comment on above: Performed By: #### 2 4323-8 #### LOPEZ AYONMOTZER L (66245) [facility] ([facility]) [address] [place] [address] 90643 Chloride [Moles/Vol] 109 mmol/L High 98-107 [facility] Comment on above: Performed By: #### 2 4323-8 #### LOPEZ AYONMOTZER L (75701) [facility] ([facility]) [address] [place] [address] 94162 CO2 [Moles/Vol] 24 mmol/L Normal 21-32 [facility] Comment on above: Performed By: #### 2 4323-8 #### LOPEZ AYONMOTZER L (76111) [facility] ([facility]) [address] [place] [address] 56051 Creatinine [Mass/Vol] 1.02 mg/dL Normal 0.50-1.05 [facility] Comment on above: Performed By: #### 2 4323-8 #### LOPEZ SHEETSTZER L (97913) [facility] ([facility]) [address] [place] [address] 31023 Glomerular filtration rate/1.73 sq M.predicted 60 mL/min/1.73m*2 Low >60 [facility] Comment on above: Result Comment: Calc ulations of estimated GFR are performed using the 2020 CKD-EPI Study Refit equation without the race variable for the IDMS-Traceable creatinine methods. https://jasn.asnjournals.org/content//ASN.597 4214441 Performed By: #### 2 4323-8 #### LOPEZ Coreas (93325) [facility] ([facility]) [address] [place] [address] 91202 Glucose [Mass/Vol] 122 mg/dL High 74-99 [facility] Comment on above: Performed By: #### 2 4323-8 #### LOPEZ Coreas (73662) [facility] ([facility]) [address] [place] [address] 06945 Phosphate [Mass/Vol] 2.8 mg/dL Normal 2.5-4.9 [facility] Comment on above: Performed By: #### 2 4323-8 #### LOPEZ Coreas (35419) [facility] ([facility]) [address] [place] [address] 43397 Potassium [Moles/Vol] 3.7 mmol/L Normal 3.5-5.3 [facility] Comment on above: Performed By: #### 2 4323-8 #### LOPEZ Coreas (38805) [facility] ([facility]) [address] [place] [address] 43783 Sodium [Moles/Vol] 141 mmol/L Normal 136-145 [facility] Comment on above: Performed By: #### 2 4323-8 #### LOPEZ Coreas (76575) [facility] ([facility]) [address] [place] [address] 61832 Urea nitrogen [Mass/Vol] 20 mg/dL Normal 6-23 [facility] Comment on above: Performed By: #### 2 4323-8 #### LOPEZ FAN L (13606) [facility] ([facility]) [address] [place] [address] 35901 CBC W Auto Differential pane l (Bld)on 03-23-2025 Basophils (Bld) [#/Vol] 0.12 10*3/uL High [facility] Basophils/100 WBC (Bld) 1.6 % 0.0 - 2.0 % [facility] Eosinophils (Bld) [#/Vol] 0.25 10*3/uL [facility] Eosinophils/100 WBC (Bld) 3.3 % 0.0 - 6.0 % [facility] Erythrocyte distribution width (RBC) [Ratio] 17.5 % High 11.5 - 14.5 % [facility] Hematocrit (Bld) [Volume fraction] 30.5 % Low 36.0 - 46.0 % [facility] Hemoglobin (Bld) [Mass/Vol] 9.6 g/dL Low 12.0 - 16.0 g/dL [facility] Immature granulocytes (Bld) [#/Vol] 0.02 10*3/uL [facility] Immature granulocytes/100 WBC (Bld) 0.3 % 0.0 - 0.9 % [facility] Comment on above: Immature Granulocyte Count (IG) includes promyelocytes, myelocytes and metamyelocytes but does not include bands. Percent differential counts (%) should be interpreted in the context of the absolute cell counts (cells/UL). Interpretation and review of laboratory results Abnormal [facility] Lymphocytes (Bld) [#/Vol] 1.65 10*3/uL [facility] Lymphocytes/100 WBC (Bld) 22 % 13.0 - 44.0 % [facility] MCH (RBC) [Entitic mass] 29.8 pg 26. 0 - 34.0 pg [facility] MCHC (RBC) [Mass/Vol] 31.5 g/dL Low 32.0 - 36.0 g/dL [facility] MCV (RBC) [Entitic vol] 95 fL 80 - 100 fL [facility] Monocytes (Bld) [#/Vol] 0.46 10*3/uL [facility] Monocytes/100 WBC (Bld) 6.1 % 2.0 - 10.0 % [facility] Neutrophils (Bld) [#/Vol] 4.99 10*3/uL [facility] Comment on above: Percent differential counts (%) should be interpreted in the context of the absolute cell counts (cells/uL). Neutrophils/100 WBC (Bld) 66.7 % 40.0 - 80.0 % [facility] Nucleated RBC/100 WBC (Bld) [Ratio] 0 % [facility] Platelets (Bld) [#/Vol] 206 10*3/uL [facility] RBC (Bld) [#/Vol] 3.22 10*6/uL Low [facility] WBC (Bld) [#/Vol] 7.5 10*3/uL [facility] Basophils (Bld) [#/Vol] 0.12 x10*3/uL High 0.00-0.10 [facility] Comment on above: Performed By: #### 2 4323-8 #### LOPEZ Coreas ([id number]) [facility] ([facility]) [address] [place] [address] 81526 Basophils/100 WBC (Bld) 1.6 % Normal 0.0-2.0 [facility] Comment on above: Performed By: #### 2 4323-8 #### LOPEZ Coreas ([id number]) [facility] ([facility]) [address] [place] [address] 62012 Eosinophils (Bld) [#/Vol] 0.25 x10*3/uL Normal 0.00-0.70 [facility] Comment on above: Performed By: #### 2 4323-8 #### LOPEZ FAN L (13327) [facility] ([facility]) [address] [place] [address] 67177 Eosinophils/100 WBC (Bld) 3.3 % Normal 0.0-6.0 [facility] Comment on above: Performed By: #### 2 4323-8 #### LOPEZ Coreas (66842) [facility] ([facility]) [address] [place] [address] 51383 Erythrocyte distribution width (RBC) [Ratio] 17.5 % High 11.5-14.5 [facility] Comment on above: Performed By: #### 2 4323-8 #### LOPEZ Coreas (86829) [facility] ([facility]) [address] [place] [address] 61085 Hematocrit (Bld) [Volume fraction] 30.5 % Low 36.0-46.0 [facility] Comment on above: Performed By: #### 2 4323-8 #### LOPEZ Coreas (57453) [facility] ([facility]) [address] [place] [address] 45230 Hemoglobin (Bld) [Mass/Vol] 9.6 g/dL Low 12.0-16.0 [facility] Comment on above: Performed By: #### 2 4323-8 #### LOPEZ Coreas (33984) [facility] ([facility]) [address] [place] [address] 00156 Immature granulocytes (Bld) [#/Vol] 0.02 x10*3/uL Normal 0.00-0.70 [facility] Comment on above: Performed By: #### 2 4323-8 #### LOPEZ Coreas (78966) [facility] ([facility]) [address] [place] [address] 64796 Immature granulocytes/100 WBC (Bld) 0.3 % Normal 0.0-0.9 [facility] Comment on above: Result Comment: Leonora ture Granulocyte Count (IG) includes promyelocytes, myelocytes and metamyelocytes but does not include bands. Percent differential counts (%) should be interpreted in the context of the absolute cell counts (cells/UL). Performed By: #### 2 4323-8 #### LOPEZ Coreas (30405) [facility] ([facility]) [address] [place] [address] 91639 Lymphocytes (Bld) [#/Vol] 1.65 x10*3/uL Normal 1.20-4.80 [facility] Comment on above: Performed By: #### 2 4323-8 #### LOPEZ Coreas (19400) [facility] ([facility]) [id number] [place] [address] 73520 Lymphocytes/100 WBC (Bld) 22.0 % Normal 13.0-44.0 [facility] Comment on above: Performed By: #### 2 4323-8 #### LOPEZ Coreas (48916) [facility] ([facility]) [address] [place] [address] MCH (RBC) [Entitic mass] 29.8 pg Normal 26.0-34.0 [facility] Comment on above: Performed By: #### 2 4323-8 #### LOPEZ Coreas (82877) [facility] ([facility]) [address] [place] [address] MCHC (RBC) [Mass/Vol] 31.5 g/dL Low 32.0-36.0 [facility] Comment on above: Performed By: #### 2 432-8 #### LOPEZ Coreas (05813) [facility] ([facility]) [id number] [place] [address] 24450 MCV (RBC) [Entitic vol] 95 fL Normal 80-100 [facility] Comment on above: Performed By: #### 2 432-8 #### LOPEZ Coreas (06452) [facility] ([facility]) [address] [place] [address] 90496 Monocytes (Bld) [#/Vol] 0.46 x10*3/uL Normal 0.10-1.00 [facility] Comment on above: Performed By: #### 2 4323-8 #### LOPEZ Coreas (04972) [facility] ([facility]) [address] [place] [address] Monocytes/100 WBC (Bld) 6.1 % Normal 2.0-10.0 [facility] Comment on above: Performed By: #### 2 4323-8 #### LOPEZ Coreas (37216) [facility] ([facility]) [address] [place] [address] 44343 Neutrophils (Bld) [#/Vol] 4.99 x10*3/uL Normal 1.20-7.70 [facility] Comment on above: Result Comment: Perc ent differential counts (%) should be interpreted in the context of the absolute cell counts (cells/uL). Performed By: #### 2 4323-8 #### LOPEZ Coreas ([id number]) [facility] ([facility]) [address] [place] [address] 24532 Neutrophils/100 WBC (Bld) 66.7 % Normal 40.0-80.0 [facility] Comment on above: Performed By: #### 2 4323-8 #### LOPEZ Coreas (88383) [facility] ([facility]) [address] [place] [address] 65446 Nucleated RBC/100 WBC (Bld) [Ratio] 0.0 /100 WBCs Normal 0.0-0.0 [facility] Comment on above: Performed By: #### 2 4323-8 #### LOPEZ Coreas (08850) [facility] [facility]) [address] [place] [address] 35912 Platelets (Bld) [#/Vol] 206 x10*3/uL Normal 150-450 [facility] Comment on above: Performed By: #### 2 4323-8 #### LOPEZ Coreas ([id number]) [facility] ([facility]) [address] [place] [address] 62345 RBC (Bld) [#/Vol] 3.22 x10*6/uL Low 4.00-5.20 [facility] Comment on above: Performed By: #### 2 4323-8 #### LOPEZ Coreas ([id number]) [facility] ([facility]) [address] [place] [address] 59631 WBC (Bld) [#/Vol] 7.5 x10*3/uL Normal 4.4-11.3 [facility] Comment on above: Performed By: #### 2 4323-8 #### LOPEZ FAN L ([id number]) [facility] ([facility]) [address] [place] [address] 58631 Basophils (Bld) [#/Vol] 0.11 10*3/uL High [facility] Basophils/100 WBC (Bld) 1.5 % 0.0 - 2.0 % [facility] Eosinophils (Bld) [#/Vol] 0.27 10*3/uL [facility] Eosinophils/100 WBC (Bld) 3.7 % 0.0 - 6.0 % [facility] Erythrocyte distribution width (RBC) [Ratio] 17.9 % High 11.5 - 14.5 % [facility] Hematocrit (Bld) [Volume fraction] 29.7 % Low 36.0 - 46.0 % [facility] Hemoglobin (Bld) [Mass/Vol] 9.3 g/dL Low 12.0 - 16.0 g/dL [facility] Immature granulocytes (Bld) [#/Vol] 0.03 10*3/uL [facility] Immature granulocytes/100 WBC (Bld) 0.4 % 0.0 - 0.9 % [facility] Comment on above: Immature Granulocyte Count (IG) includes promyelocytes, myelocytes and metamyelocytes but does not include bands. Percent differential counts (%) should be interpreted in the context of the absolute cell counts (cells/UL). Interpretation and review of laboratory results Abnormal [facility] Lymphocytes (Bld) [#/Vol] 1.32 10*3/uL [facility] Lymphocytes/100 WBC (Bld) 18.2 % 13.0 - 44.0 % [facility] MCH (RBC) [Entitic mass] 29.8 pg 26. 0 - 34.0 pg [facility] MCHC (RBC) [Mass/Vol] 31.3 g/dL Low 32.0 - 36.0 g/dL [facility] MCV (RBC) [Entitic vol] 95 fL 80 - 100 fL [facility] Monocytes (Bld) [#/Vol] 0.49 10*3/uL [facility] Monocytes/100 WBC (Bld) 6.7 % 2.0 - 10.0 % [facility] Neutrophils (Bld) [#/Vol] 5.05 10*3/uL [facility] Comment on above: Percent differential counts (%) should be interpreted in the context of the absolute cell counts (cells/uL). Neutrophils/100 WBC (Bld) 69.5 % 40.0 - 80.0 % [facility] Nucleated RBC/100 WBC (Bld) [Ratio] 0 % [facility] Platelets (Bld) [#/Vol] 178 10*3/uL [facility] RBC (Bld) [#/Vol] 3.12 10*6/uL Low [facility] WBC (Bld) [#/Vol] 7.3 10*3/uL [facility] Basophils (Bld) [#/Vol] 0.11 x10*3/uL High 0.00-0.10 [facility] Comment on above: Performed By: #### 3 4529-8 #### LOPEZ Coreas ([id number]) [facility] ([facility]) [address] [place] [address] 15349 Basophils/100 WBC (Bld) 1.5 % Normal 0.0-2.0 [facility] Comment on above: Performed By: #### 3 4529-8 #### LOPEZ Coreas ([id number]) [facility] ([facility]) [address] [place] [address] 37508 Eosinophils (Bld) [#/Vol] 0.27 x10*3/uL Normal 0.00-0.70 [facility] Comment on above: Performed By: #### 3 4529-8 #### LOPEZ Coreas ([id number]) [facility] ([facility]) [address] [place] [address] 85302 Eosinophils/100 WBC (Bld) 3.7 % Normal 0.0-6.0 [facility] Comment on above: Performed By: #### 3 4529-8 #### LOPEZ Coreas (45053) [facility] ([facility]) [address] [place] [address] 42231 Erythrocyte distribution width (RBC) [Ratio] 17.9 % High 11.5-14.5 [facility] Comment on above: Performed By: #### 3 4529-8 #### LOPEZ Coreas ([id number]) [facility] ([facility]) [address] [place] [address] 04118 Hematocrit (Bld) [Volume fraction] 29.7 % Low 36.0-46.0 [facility] Comment on above: Performed By: #### 3 4529-8 #### LOPEZ Coreas (31936) [facility] ([facility]) [id number] [place] [address] 91527 Hemoglobin (Bld) [Mass/Vol] 9.3 g/dL Low 12.0-16.0 [facility] Comment on above: Performed By: #### 3 4529-8 #### LOPEZ Coreas (57997) [facility] ([facility]) [address] [place] [address] 83929 Immature granulocytes (Bld) [#/Vol] 0.03 x10*3/uL Normal 0.00-0.70 [facility] Comment on above: Performed By: #### 3 4529-8 #### LOPEZ Coreas ([id number]) [facility] ([facility]) [address] [place] [address] 46198 Immature granulocytes/100 WBC (Bld) 0.4 % Normal 0.0-0.9 [facility] Comment on above: Result Comment: Leonora ture Granulocyte Count (IG) includes promyelocytes, myelocytes and metamyelocytes but does not include bands. Percent differential counts (%) should be interpreted in the context of the absolute cell counts (cells/UL). Performed By: #### 3 4529-8 #### LOPEZ Coreas (19882) [facility] ([facility]) [id number] [place] [address] 43947 Lymphocytes (Bld) [#/Vol] 1.32 x10*3/uL Normal 1.20-4.80 [facility] Comment on above: Performed By: #### 3 4529-8 #### LOPEZ Coreas (73059) [facility] ([facility]) [address] [place] [address] 52138 Lymphocytes/100 WBC (Bld) 18.2 % Normal 13.0-44.0 [facility] Comment on above: Performed By: #### 3 4529-8 #### LOPEZ Coreas (67171) [facility] ([facility]) [address] [place] [address] MCH (RBC) [Entitic mass] 29.8 pg Normal 26.0-34.0 [facility] Comment on above: Performed By: #### 3 4529-8 #### LOPEZ Coreas (46715) [facility] ([facility]) [address] [place] [address] MCHC (RBC) [Mass/Vol] 31.3 g/dL Low 32.0-36.0 [facility] Comment on above: Performed By: #### 3 4529-8 #### LOPEZ Coreas (46684) [facility] ([facility]) [address] [place] [address] MCV (RBC) [Entitic vol] 95 fL Normal 80-100 [facility] Comment on above: Performed By: #### 3 4529-8 #### LOPEZ Coreas (40785) [facility] ([facility]) [address] [place] [address] Monocytes (Bld) [#/Vol] 0.49 x10*3/uL Normal 0.10-1.00 [facility] Comment on above: Performed By: #### 3 4529-8 #### LOPEZ Coreas (94398) [facility] ([facility]) [address] [place] [address] Monocytes/100 WBC (Bld) 6.7 % Normal 2.0-10.0 [facility] Comment on above: Performed By: #### 3 4529-8 #### LOPEZ Coreas (46097) [facility] ([facility]) [address] [place] [address] Neutrophils (Bld) [#/Vol] 5.05 x10*3/uL Normal 1.20-7.70 [facility] Comment on above: Result Comment: Perc ent differential counts (%) should be interpreted in the context of the absolute cell counts (cells/uL). Performed By: #### 3 4529-8 #### LOPEZ Coreas (50860) [facility] ([facility]) [address] [place] [address] 99949 Neutrophils/100 WBC (Bld) 69.5 % Normal 40.0-80.0 [facility] Comment on above: Performed By: #### 3 4529-8 #### LOPEZ Coreas (45648) [facility] ([facility]) [address] [place] [address] 04691 Nucleated RBC/100 WBC (Bld) [Ratio] 0.0 /100 WBCs Normal 0.0-0.0 [facility] Comment on above: Performed By: #### 3 4529-8 #### LOPEZ Coreas (49524) [facility] ([facility]) [address] [place] [address] 70638 Platelets (Bld) [#/Vol] 178 x10*3/uL Normal 150-450 [facility] Comment on above: Performed By: #### 3 4529-8 #### LOPEZ Coreas (58192) [facility] ([facility]) [address] [place] [address] 15032 RBC (Bld) [#/Vol] 3.12 x10*6/uL Low 4.00-5.20 [facility] Comment on above: Performed By: #### 3 4529-8 #### LOPEZ Coreas (53469) [facility] ([facility]) [address] [place] [address] 17332 WBC (Bld) [#/Vol] 7.3 x10*3/uL Normal 4.4-11.3 [facility] Comment on above: Performed By: #### 3 4529-8 #### LOPEZ FAN L ([id number]) [facility] ([facility]) [address] [place] [address] 74071 Magnesiumon 03-23-2025 Magnesium [Mass/Vol] 2.11 mg/dL 1.60 - 2.40 mg/dL [facility] Magnesium [Mass/Vol] 2.11 mg/dL Normal 1.60-2.40 [facility] Comment on above: Performed By: #### 3 4529-8 #### LOPEZ Coreas (62985) [facility] ([facility]) [address] [place] [address] Magnesium [Mass/Vol]on 03-23 Interpretation and review of laboratory results Normal [facility] No Panel Informationon 03-23 [facility] Renal function 2000 panelon 03-23-2025 Albumin BCP dye [Mass/Vol] 3.7 g/dL 3.4 - 5.0 g/dL [facility] Anion gap [Moles/Vol] 12 mmol/L 10 - 2 0 mmol/L [facility] Calcium [Mass/Vol] 8.5 mg/dL Low 8.6 - 10. 6 mg/dL [facility] Chloride [Moles/Vol] 108 mmol/L High 98 - 10 7 mmol/L [facility] CO2 [Moles/Vol] 22 mmol/L 21 - 32 mmol/L [facility] Creatinine [Mass/Vol] 0.99 mg/dL 0.50 - 1.05 mg/dL [facility] GFR/1.73 sq M.predicted among non-blacks MDRD (S/P/Bld) [Vol rate/Area] 63 mL/min/{1.73_m2} - PINF [facility] Comment on above: Calculations of araceli mated GFR are performed using the 2020 CKD-EPI Study Refit equation without the race variable for the IDMS-Traceable creatinine methods. https://jasn.asnjournals.org/content/early/ASN.660 7881911 Glucose [Mass/Vol] 98 mg/dL 74 - 99 mg/dL [facility] Interpretation and review of laboratory results Abnormal [facility] Phosphate [Mass/Vol] 3.6 mg/dL 2.5 - 4 .9 mg/dL [facility] Potassium [Moles/Vol] 3.8 mmol/L 3.5 - 5.3 mmol/L [facility] Sodium [Moles/Vol] 138 mmol/L 136 - 145 mmol/L [facility] Urea nitrogen [Mass/Vol] 24 mg/dL High 6 - 23 mg/dL [facility] Albumin BCP dye [Mass/Vol] 3.7 g/dL Normal 3.4-5.0 [facility] Comment on above: Performed By: #### 3 4529-8 #### LOPEZ Coreas ([id number]) [facility] ([facility]) [id number] [place] [address] 06721 Anion gap [Moles/Vol] 12 mmol/L Normal 10-20 [facility] Comment on above: Performed By: #### 3 4529-8 #### LOPEZ Coreas (23443) [facility] ([facility]) [id number] [place] [address] 14190 Calcium [Mass/Vol] 8.5 mg/dL Low 8.6-10.6 [facility] Comment on above: Performed By: #### 3 4529-8 #### LOPEZ Coreas (96560) [facility] ([facility]) [address] [place] [address] 93791 Chloride [Moles/Vol] 108 mmol/L High 98-107 [facility] Comment on above: Performed By: #### 3 4529-8 #### LOPEZ Coreas (78457) [facility] ([facility]) [address] [place] [address] 31013 CO2 [Moles/Vol] 22 mmol/L Normal 21-32 [facility] Comment on above: Performed By: #### 3 4529-8 #### LOPEZ Coreas (76994) [facility] ([facility]) [address] [place] [address] 78368 Creatinine [Mass/Vol] 0.99 mg/dL Normal 0.50-1.05 [facility] Comment on above: Performed By: #### 3 4529-8 #### LOPEZ Coreas (11521) [facility] ([facility]) [address] [place] [address] 85227 Glomerular filtration rate/1.73 sq M.predicted 63 mL/min/1.73m*2 Normal >60 [facility] Comment on above: Result Comment: Calc ulations of estimated GFR are performed using the 2020 CKD-EPI Study Refit equation without the race variable for the IDMS-Traceable creatinine methods. https://jasn.asnjournals.org/content//ASN.665 5983730 Performed By: #### 3 4529-8 #### LOPEZ Coreas (10156) [facility] ([facility]) [address] [place] [address] Glucose [Mass/Vol] 98 mg/dL Normal 74-99 [facility] Comment on above: Performed By: #### 3 4529-8 #### LOPEZ Coreas (67246) [facility] ([facility]) [address] [place] [address] Phosphate [Mass/Vol] 3.6 mg/dL Normal 2.5-4.9 [facility] Comment on above: Performed By: #### 3 4529-8 #### LOPEZ FAN L (28070) [facility] ([facility]) [address] [place] [address] Potassium [Moles/Vol] 3.8 mmol/L Normal 3.5-5.3 [facility] Comment on above: Performed By: #### 3 4529-8 #### LOPEZ FAN L (22394) [facility] ([facility]) [address] [place] [address] Sodium [Moles/Vol] 138 mmol/L Normal 136-145 [facility] Comment on above: Performed By: #### 3 4529-8 #### LOPEZ FAN L (36730) [facility] ([facility]) [address] [place] [address] Urea nitrogen [Mass/Vol] 24 mg/dL High 6-23 [facility] Comment on above: Performed By: #### 3 4529-8 #### LOPEZ AYONMOKAIDEN L ([id number]) [facility] ([facility]) [address] [place] [address] CBC W Auto Differential pane l (Bld)on 03-22-2025 Basophils (Bld) [#/Vol] 0.16 10*3/uL High [facility] Basophils/100 WBC (Bld) 1.8 % 0.0 - 2.0 % [facility] Eosinophils (Bld) [#/Vol] 0.16 10*3/uL [facility] Eosinophils/100 WBC (Bld) 1.8 % 0.0 - 6.0 % [facility] Erythrocyte distribution width (RBC) [Ratio] 17.6 % High 11.5 - 14.5 % [facility] Hematocrit (Bld) [Volume fraction] 31.5 % Low 36.0 - 46.0 % [facility] Hemoglobin (Bld) [Mass/Vol] 9.5 g/dL Low 12.0 - 16.0 g/dL [facility] Immature granulocytes (Bld) [#/Vol] 0.04 10*3/uL [facility] Immature granulocytes/100 WBC (Bld) 0.4 % 0.0 - 0.9 % [facility] Comment on above: Immature Granulocyte Count (IG) includes promyelocytes, myelocytes and metamyelocytes but does not include bands. Percent differential counts (%) should be interpreted in the context of the absolute cell counts (cells/UL). Interpretation and review of laboratory results Abnormal [facility] Lymphocytes (Bld) [#/Vol] 1.45 10*3/uL [facility] Lymphocytes/100 WBC (Bld) 16.3 % 13.0 - 44.0 % [facility] MCH (RBC) [Entitic mass] 29.3 pg 26. 0 - 34.0 pg [facility] MCHC (RBC) [Mass/Vol] 30.2 g/dL Low 32.0 - 36.0 g/dL [facility] MCV (RBC) [Entitic vol] 97 fL 80 - 100 fL [facility] Monocytes (Bld) [#/Vol] 0.49 10*3/uL [facility] Monocytes/100 WBC (Bld) 5.5 % 2.0 - 10.0 % [facility] Neutrophils (Bld) [#/Vol] 6.61 10*3/uL [facility] Comment on above: Percent differential counts (%) should be interpreted in the context of the absolute cell counts (cells/uL). Neutrophils/100 WBC (Bld) 74.2 % 40.0 - 80.0 % [facility] Nucleated RBC/100 WBC (Bld) [Ratio] 0 % [facility] Platelets (Bld) [#/Vol] 201 10*3/uL [facility] RBC (Bld) [#/Vol] 3.24 10*6/uL Low [facility] WBC (Bld) [#/Vol] 8.9 10*3/uL [facility] Basophils (Bld) [#/Vol] 0.16 x10*3/uL High 0.00-0.10 [facility] Comment on above: Order Comment: The A PTT is no longer used for monitoring Unfractionated Heparin Therapy. For monitoring Heparin Therapy, use the Heparin Assay. Performed By: #### 3 4529-8 #### LOPEZ Coreas ([id number]) [facility] ([facility]) [address] [place] [address] 95370 Basophils/100 WBC (Bld) 1.8 % Normal 0.0-2.0 [facility] Comment on above: Order Comment: The A PTT is no longer used for monitoring Unfractionated Heparin Therapy. For monitoring Heparin Therapy, use the Heparin Assay. Performed By: #### 3 4529-8 #### LOPEZ Coreas (75975) [facility] ([facility]) [address] [place] [address] Eosinophils (Bld) [#/Vol] 0.16 x10*3/uL Normal 0.00-0.70 [facility] Comment on above: Order Comment: The A PTT is no longer used for monitoring Unfractionated Heparin Therapy. For monitoring Heparin Therapy, use the Heparin Assay. Performed By: #### 3 4529-8 #### LOPEZ Coreas ([id number]) [facility] ([facility]) [address] [place] [address] 33657 Eosinophils/100 WBC (Bld) 1.8 % Normal 0.0-6.0 [facility] Comment on above: Order Comment: The A PTT is no longer used for monitoring Unfractionated Heparin Therapy. For monitoring Heparin Therapy, use the Heparin Assay. Performed By: #### 3 4529-8 #### LOPEZ Coreas (08021) [facility] ([facility]) [address] [place] [address] 98446 Erythrocyte distribution width (RBC) [Ratio] 17.6 % High 11.5-14.5 [facility] Comment on above: Order Comment: The A PTT is no longer used for monitoring Unfractionated Heparin Therapy. For monitoring Heparin Therapy, use the Heparin Assay. Performed By: #### 3 4529-8 #### LOPEZ Coreas (78752) [facility] ([facility]) [address] [place] [address] 25042 Hematocrit (Bld) [Volume fraction] 31.5 % Low 36.0-46.0 [facility] Comment on above: Order Comment: The A PTT is no longer used for monitoring Unfractionated Heparin Therapy. For monitoring Heparin Therapy, use the Heparin Assay. Performed By: #### 3 4529-8 #### LOPEZ Coreas (50840) [facility] ([facility]) [address] [place] [address] 35295 Hemoglobin (Bld) [Mass/Vol] 9.5 g/dL Low 12.0-16.0 [facility] Comment on above: Order Comment: The A PTT is no longer used for monitoring Unfractionated Heparin Therapy. For monitoring Heparin Therapy, use the Heparin Assay. Performed By: #### 3 4529-8 #### LOPEZ Coreas (74766) [facility] ([facility]) [address] [place] [address] 76665 Immature granulocytes (Bld) [#/Vol] 0.04 x10*3/uL Normal 0.00-0.70 [facility] Comment on above: Order Comment: The A PTT is no longer used for monitoring Unfractionated Heparin Therapy. For monitoring Heparin Therapy, use the Heparin Assay. Performed By: #### 3 4529-8 #### LOPEZ Coreas (34113) [facility] ([facility]) [address] [place] [address] 61410 Immature granulocytes/100 WBC (Bld) 0.4 % Normal 0.0-0.9 [facility] Comment on above: Order Comment: The [...] By: #### 3 4529-8 #### LOPEZ Coreas ([id number]) [facility] ([facility]) [address] [place] [address] 22091 Lymphocytes (Bld) [#/Vol] 1.45 x10*3/uL Normal 1.20-4.80 [facility] Comment on above: Order Comment: The A PTT is no longer used for monitoring Unfractionated Heparin Therapy. For monitoring Heparin Therapy, use the Heparin Assay. Performed By: #### 3 4529-8 #### LOPEZ Coreas ([id number]) [facility] ([facility]) [address] [place] [address] 94361 Lymphocytes/100 WBC (Bld) 16.3 % Normal 13.0-44.0 [facility] Comment on above: Order Comment: The A PTT is no longer used for monitoring Unfractionated Heparin Therapy. For monitoring Heparin Therapy, use the Heparin Assay. Performed By: #### 3 4529-8 #### LOPEZ Coreas (80512) [facility] ([facility]) [id number] [place] [address] 12027 MCH (RBC) [Entitic mass] 29.3 pg Normal 26.0-34.0 [facility] Comment on above: Order Comment: The A PTT is no longer used for monitoring Unfractionated Heparin Therapy. For monitoring Heparin Therapy, use the Heparin Assay. Performed By: #### 3 4529-8 ###Geeta Coreas ([id number]) [facility] ([facility]) [address] [place] [address] MCHC (RBC) [Mass/Vol] 30.2 g/dL Low 32.0-36.0 [facility] Comment on above: Order Comment: The A PTT is no longer used for monitoring Unfractionated Heparin Therapy. For monitoring Heparin Therapy, use the Heparin Assay. Performed By: #### 3 4529-8 #### LOPEZ Coreas (25998) [facility] ([facility]) [id number] [place] [address] 26449 MCV (RBC) [Entitic vol] 97 fL Normal 80-100 [facility] Comment on above: Order Comment: The A PTT is no longer used for monitoring Unfractionated Heparin Therapy. For monitoring Heparin Therapy, use the Heparin Assay. Performed By: #### 3 4529-8 #### LOPEZ Coreas (98003) [facility] ([facility]) [address] [place] [address] 78850 Monocytes (Bld) [#/Vol] 0.49 x10*3/uL Normal 0.10-1.00 [facility] Comment on above: Order Comment: The A PTT is no longer used for monitoring Unfractionated Heparin Therapy. For monitoring Heparin Therapy, use the Heparin Assay. Performed By: #### 3 4529-8 #### LOPEZ Coreas ([id number]) [facility] ([facility]) [address] [place] [address] 03326 Monocytes/100 WBC (Bld) 5.5 % Normal 2.0-10.0 [facility] Comment on above: Order Comment: The A PTT is no longer used for monitoring Unfractionated Heparin Therapy. For monitoring Heparin Therapy, use the Heparin Assay. Performed By: #### 3 4529-8 #### LOPEZ Coreas (14514) [facility] ([facility]) [address] [place] [address] 87386 Neutrophils (Bld) [#/Vol] 6.61 x10*3/uL Normal 1.20-7.70 [facility] Comment on above: Order Comment: The A PTT is no longer used for monitoring Unfractionated Heparin Therapy. For monitoring Heparin Therapy, use the Heparin Assay. Result Comment: Perc ent differential counts (%) should be interpreted in the context of the absolute cell counts (cells/uL). Performed By: #### 3 4529-8 #### LOPEZ Coreas ([id number]) [facility] ([facility]) [address] [place] [address] 73452 Neutrophils/100 WBC (Bld) 74.2 % Normal 40.0-80.0 [facility] Comment on above: Order Comment: The A PTT is no longer used for monitoring Unfractionated Heparin Therapy. For monitoring Heparin Therapy, use the Heparin Assay. Performed By: #### 3 4529-8 #### LOPEZ Coreas ([id number]) [facility] ([facility]) [address] [place] [address] 08497 Nucleated RBC/100 WBC (Bld) [Ratio] 0.0 /100 WBCs Normal 0.0-0.0 [facility] Comment on above: Order Comment: The A PTT is no longer used for monitoring Unfractionated Heparin Therapy. For monitoring Heparin Therapy, use the Heparin Assay. Performed By: #### 3 4529-8 #### LOPEZ Coreas ([id number]) [facility] ([facility]) [address] [place] [address] 14178 Platelets (Bld) [#/Vol] 201 x10*3/uL Normal 150-450 [facility] Comment on above: Order Comment: The A PTT is no longer used for monitoring Unfractionated Heparin Therapy. For monitoring Heparin Therapy, use the Heparin Assay. Performed By: #### 3 4529-8 #### LOPEZ Coreas ([id number]) [facility] ([facility]) [address] [place] [address] 98567 RBC (Bld) [#/Vol] 3.24 x10*6/uL Low 4.00-5.20 [facility] Comment on above: Order Comment: The A PTT is no longer used for monitoring Unfractionated Heparin Therapy. For monitoring Heparin Therapy, use the Heparin Assay. Performed By: #### 3 4529-8 #### LOPEZ Coreas ([id number]) [facility] ([facility]) [address] [place] [address] WBC (Bld) [#/Vol] 8.9 x10*3/uL Normal 4.4-11.3 [facility] Comment on above: Order Comment: The A PTT is no longer used for monitoring Unfractionated Heparin Therapy. For monitoring Heparin Therapy, use the Heparin Assay. Performed By: #### 3 4529-8 #### LOPEZ Coreas ([id number]) [facility] ([facility]) [address] [place] [address] Basophils (Bld) [#/Vol] 0.14 10*3/uL High [facility] Basophils/100 WBC (Bld) 2 % 0.0 - 2.0 % [facility] Eosinophils (Bld) [#/Vol] 0.25 10*3/uL [facility] Eosinophils/100 WBC (Bld) 3.6 % 0.0 - 6.0 % [facility] Erythrocyte distribution width (RBC) [Ratio] 17.2 % High 11.5 - 14.5 % [facility] Hematocrit (Bld) [Volume fraction] 24.3 % Low 36.0 - 46.0 % [facility] Hemoglobin (Bld) [Mass/Vol] 7.2 g/dL Low 12.0 - 16.0 g/dL [facility] Immature granulocytes (Bld) [#/Vol] 0.03 10*3/uL [facility] Immature granulocytes/100 WBC (Bld) 0.4 % 0.0 - 0.9 % [facility] Comment on above: Immature Granulocyte Count (IG) includes promyelocytes, myelocytes and metamyelocytes but does not include bands. Percent differential counts (%) should be interpreted in the context of the absolute cell counts (cells/UL). Interpretation and review of laboratory results Abnormal [facility] Lymphocytes (Bld) [#/Vol] 1.4 10*3/uL [facility] Lymphocytes/100 WBC (Bld) 20.1 % 13.0 - 44.0 % [facility] MCH (RBC) [Entitic mass] 29.3 pg 26. 0 - 34.0 pg [facility] MCHC (RBC) [Mass/Vol] 29.6 g/dL Low 32.0 - 36.0 g/dL [facility] MCV (RBC) [Entitic vol] 99 fL 80 - 100 fL [facility] Monocytes (Bld) [#/Vol] 0.45 10*3/uL [facility] Monocytes/100 WBC (Bld) 6.5 % 2.0 - 10.0 % [facility] Neutrophils (Bld) [#/Vol] 4.69 10*3/uL [facility] Comment on above: Percent differential counts (%) should be interpreted in the context of the absolute cell counts (cells/uL). Neutrophils/100 WBC (Bld) 67.4 % 40.0 - 80.0 % [facility] Nucleated RBC/100 WBC (Bld) [Ratio] 0 % [facility] Platelets (Bld) [#/Vol] 182 10*3/uL [facility] RBC (Bld) [#/Vol] 2.46 10*6/uL Low [facility] WBC (Bld) [#/Vol] 7 10*3/uL [facility] Basophils (Bld) [#/Vol] 0.14 x10*3/uL High 0.00-0.10 [facility] Comment on above: Performed By: #### 5 7021-8 #### LOPEZ Coreas ([id number]) [facility] ([facility]) [address] [place] [address] Basophils/100 WBC (Bld) 2.0 % Normal 0.0-2.0 [facility] Comment on above: Performed By: #### 5 7021-8 #### LOPEZ Coreas ([id number]) [facility] ([facility]) [address] [place] [address] Eosinophils (Bld) [#/Vol] 0.25 x10*3/uL Normal 0.00-0.70 [facility] Comment on above: Performed By: #### 5 7021-8 #### LOPEZ Coreas ([id number]) [facility] ([facility]) [address] [place] [address] 24259 Eosinophils/100 WBC (Bld) 3.6 % Normal 0.0-6.0 [facility] Comment on above: Performed By: #### 5 7021-8 #### LOPEZ Coreas ([id number]) [facility] ([facility]) [address] [place] [address] 79376 Erythrocyte distribution width (RBC) [Ratio] 17.2 % High 11.5-14.5 [facility] Comment on above: Performed By: #### 5 7021-8 #### LOPEZ Coreas ([id number]) [facility] ([facility]) [address] [place] [address] 19741 Hematocrit (Bld) [Volume fraction] 24.3 % Low 36.0-46.0 [facility] Comment on above: Performed By: #### 5 7021-8 #### LOPEZ Coreas ([id number]) [facility] ([facility]) [address] [place] [address] 04132 Hemoglobin (Bld) [Mass/Vol] 7.2 g/dL Low 12.0-16.0 [facility] Comment on above: Performed By: #### 5 7021-8 #### LOPEZ Coreas ([id number]) [facility] ([facility]) [address] [place] [address] 14590 Immature granulocytes (Bld) [#/Vol] 0.03 x10*3/uL Normal 0.00-0.70 [facility] Comment on above: Performed By: #### 5 7021-8 #### LOPEZ Coreas (95698) [facility] ([facility]) [address] [place] [address] 14083 Immature granulocytes/100 WBC (Bld) 0.4 % Normal 0.0-0.9 [facility] Comment on above: Result Comment: Leonora ture Granulocyte Count (IG) includes promyelocytes, myelocytes and metamyelocytes but does not include bands. Percent differential counts (%) should be interpreted in the context of the absolute cell counts (cells/UL). Performed By: #### 5 7021-8 #### LOPEZ Coreas ([id number]) [facility] ([facility]) [address] [place] [address] 72797 Lymphocytes (Bld) [#/Vol] 1.40 x10*3/uL Normal 1.20-4.80 [facility] Comment on above: Performed By: #### 5 7021-8 #### LOPEZ Coreas ([id number]) [facility] ([facility]) [address] [place] [address] 82961 Lymphocytes/100 WBC (Bld) 20.1 % Normal 13.0-44.0 [facility] Comment on above: Performed By: #### 5 7021-8 #### LOPEZ Coreas ([id number]) [facility] ([facility]) [address] [place] [address] 03730 MCH (RBC) [Entitic mass] 29.3 pg Normal 26.0-34.0 [facility] Comment on above: Performed By: #### 5 7021-8 #### LOPEZ Coreas ([id number]) [facility] ([facility]) [address] [place] [address] 43934 MCHC (RBC) [Mass/Vol] 29.6 g/dL Low 32.0-36.0 [facility] Comment on above: Performed By: #### 5 7021-8 #### LOPEZ Coreas ([id number]) [facility] ([facility]) [address] [place] [address] 39892 MCV (RBC) [Entitic vol] 99 fL Normal 80-100 U [facility] Comment on above: Performed By: #### 5 7021-8 #### LOPEZ Coreas ([id number]) [facility] ([facility]) [address] [place] [address] 53527 Monocytes (Bld) [#/Vol] 0.45 x10*3/uL Normal 0.10-1.00 [facility] Comment on above: Performed By: #### 5 7021-8 #### LOPEZ Coreas ([id number]) [facility] ([facility]) [address] [place] [address] 63246 Monocytes/100 WBC (Bld) 6.5 % Normal 2.0-10.0 [facility] Comment on above: Performed By: #### 5 7021-8 #### LOPEZ Coreas ([id number]) [facility] ([facility]) [address] [place] [address] 79380 Neutrophils (Bld) [#/Vol] 4.69 x10*3/uL Normal 1.20-7.70 [facility] Comment on above: Result Comment: Perc ent differential counts (%) should be interpreted in the context of the absolute cell counts (cells/uL). Performed By: #### 5 7021-8 #### LOPEZ Coreas ([id number]) [facility] ([facility]) [address] [place] [address] 24201 Neutrophils/100 WBC (Bld) 67.4 % Normal 40.0-80.0 [facility] Comment on above: Performed By: #### 5 7021-8 #### LOPEZ Coreas ([id number]) [facility] ([facility]) [address] [place] [address] 84010 Nucleated RBC/100 WBC (Bld) [Ratio] 0.0 /100 WBCs Normal 0.0-0.0 [facility] Comment on above: Performed By: #### 5 7021-8 #### LOPEZ Coreas ([id number]) [facility] ([facility]) [address] [place] [address] 87532 Platelets (Bld) [#/Vol] 182 x10*3/uL Normal 150-450 [facility] Comment on above: Performed By: #### 5 7021-8 #### LOPEZ Coreas ([id number]) [facility] ([facility]) [address] [place] [address] 88917 RBC (Bld) [#/Vol] 2.46 x10*6/uL Low 4.00-5.20 [facility] Comment on above: Performed By: #### 5 7021-8 #### LOPEZ Coreas ([id number]) [facility] ([facility]) [address] [place] [address] WBC (Bld) [#/Vol] 7.0 x10*3/uL Normal 4.4-11.3 [facility] Comment on above: Performed By: #### 5 7021-8 #### LOPEZ Coreas ([id number]) [facility] ([facility]) [address] [place] [address] ECG 12 leadOrdered By: Pilar Borja on 03-22-2025 Atrial Rate 79 BPM [facility] Work Phone: [phone] P [place] 80 degrees [facility] Work Phone: [phone] P Offset 197 ms [facility] Work Phone: [phone] P Onset 146 [facility] Work Phone: [phone] W[place] Interval 156 ms [facility] Work Phone: [phone] Q Onset 224 ms [facility] Work Phone: [phone] QRS Count 13 beats [facility] Work Phone: [phone] QRS Duration 74 ms [facility] Work Phone: [phone] QT Interval 366 ms [facility] Work Phone: [phone] QTC Calculation(Bazett) 419 ms U [facility] Work Phone: [phone] QTC Fredericia 401 ms [facility] Work Phone: [phone] R [place] 76 degrees [facility] Work Phone: T [place] 76 degrees [facility] Work Phone: [phone] T Offset 407 ms [facility] Work Phone: Ventricular Rate 79 BPM [facility] Work Phone: [facility] Work Phone: [phone] ECG 12 leadon 03-22-2025 Normal sinus rhythm Normal ECG No previous ECGs available See ED provider note for full interpretation and clinical correlation Confirmed by Pilar Borja ([id number]) on 03/22/2025 12:59:17 AM Pilar Cummings PA-C - 03/22/2025 Normal sinus rhythm Normal ECG No previous ECGs available See ED provider note for full interpretation and clinical correlation Confirmed by Pilar Borja ([id number]) on 03/22/2025 12:59:17 AM [facility] Work Phone: [phone] Electrocardiogram, 12-lead P RN ACS symptomsOrdered By: Abe Means on 03-22-2025 Atrial Rate 75 BPM [facility] Work Phone: [phone] P [place] 71 degrees [facility] Work Phone: [phone] P Offset 186 ms [facility] Work Phone: [phone] P Onset 142 ms [facility] Work Phone: [phone] [place] Interval 160 ms [facility] Work Phone: [phone] Q Onset 222 ms [facility] Work Phone: [phone] QRS Count 12 beats [facility] Work Phone: [phone] QRS Duration 70 ms [facility] Work Phone: [phone] QT Interval 374 ms [facility] Work Phone: [phone] QTC Calculation(Bazett) 417 ms [facility] Work Phone: [phone] QTC Fredericia 402 ms [facility] Work Phone: [phone] R [place] 66 degrees [facility] Work Phone: [phone] T [place] 62 degrees [facility] Work Phone: [phone] T Offset 409 ms [facility] Work Phone: [phone] Ventricular Rate 75 BPM [facility] Work Phone: [facility] Work Phone: Electrocardiogram, 12-lead P RN [...] Abe Means ([id number]) on 03/22/2025 5:57:51 PM [facility] Work Phone: Ferritinon 03-22-2025 Ferritin [Mass/Vol] 74 ng/mL 8 - 150 ng/mL [facility] Ferritin [Mass/Vol] 74 ng/mL Normal 8-150 [facility] Comment on above: Performed By: #### 3 4529-8 #### LOPEZ Coreas ([id number]) [facility] ([facility]) [address] [place] [address] Ferritin [Mass/Vol]on 2024 Interpretation and review of laboratory results Normal [facility] Folates, RBCon 03-22-2025 Fol.,Hemolysate 317.0 ng/mL Normal Not Estab. [facility] Comment on above: Performed By: #### L 503.6030, L503.0106, L503.6550, Q73508-8, L3100.1725, L3130.0010, L100.9950, L100.0100, L500.4050, L504.2610, L3100.1850, L3100.3425 ####[facility] [address] [place], [place], [address] Folate, RBC 935 ng/mL Normal >498 [facility] Comment on above: Performed By: #### L 503.6030, L503.0106, L503.6550, C19146-8, L3100.1725, L3130.0010, L100.9950, L100.0100, L500.4050, L504.2610, L3100.1850, L3100.3425 ####[facility] [address] [place], [place], [id number] Hematocrit (Bld) [Volume fraction] 33.9 % Low 34.0-46.6 [facility] Comment on above: Performed By: #### L 503.6030, L503.0106, L503.6550, L45206-9, L3100.1725, L3130.0010, L100.9950, L100.0100, L500.4050, L504.2610, L3100.1850, L3100.3425 ####[facility] [address] [place], [place], [id number] Haptoglobinon 03-22-2025 HAPTOGLOBIN 181 mg/dL Normal 37-355 [facility] Comment on above: Result Comment: Perf ormed at: - [facility] [place] [id number] Director: Darren Cr PhD, Phone: [phone] Performed By: #### L 503.6030, L503.0106, L503.6550, P15938-9, L3100.1725, L3130.0010, L100.9950, L100.0100, L500.4050, L504.2610, L3100.1850, L3100.3425 ####[facility] [address] [place], [place], [id number] GEMA + Protein Elect, Serumon 03-22-2025 Albumin [Mass/Vol] 3.9 g/dL Normal 2.9-4.4 [facility] Comment on above: Order Comment: N Performed By: #### L 503.6030, L503.0106, L503.6550, D77592-4, L3100.1725, L3130.0010, L100.9950, L100.0100, L500.4050, L504.2610, L3100.1850, L3100.3425 ####[facility] [address] [place], [address] Albumin/Globulin [Mass ratio] 1.4 {ratio} Normal 0.7-1.7 [facility] Comment on above: Order Comment: N Performed By: #### L 503.6030, L503.0106, L503.6550, J89663-7, L3100.1725, L3130.0010, L100.9950, L100.0100, L500.4050, L504.2610, L3100.1850, L3100.3425 ####[facility] [address] [place], [address] LHFZI-4-TKVP 0.3 g/dL Normal 0.0-0.4 [facility] Comment on above: Order Comment: N Performed By: #### L 503.6030, L503.0106, L503.6550, D18766-6, L3100.1725, L3130.0010, L100.9950, L100.0100, L500.4050, L504.2610, L3100.1850, L3100.3425 ####[facility] [address] [place], [address] MEDXL-7-MLGF 0.8 g/dL Normal 0.4-1.0 [facility] Comment on above: Order Comment: N Performed By: #### L 503.6030, L503.0106, L503.6550, P47725-3, L3100.1725, L3130.0010, L100.9950, L100.0100, L500.4050, L504.2610, L3100.1850, L3100.3425 ####[facility] [address] [place], [address] BETA GLOBULIN 1.0 g/dL Normal 0.7-1.3 [facility] Comment on above: Order Comment: N Performed By: #### L 503.6030, L503.0106, L503.6550, V59584-9, L3100.1725, L3130.0010, L100.9950, L100.0100, L500.4050, L504.2610, L3100.1850, L3100.3425 ####[facility] [address] [place], [place], [phone]) GAMMA GLOBULIN 0.6 g/dL Normal 0.4-1.8 [facility] Comment on above: Order Comment: N Performed By: #### L 503.6030, L503.0106, L503.6550, X03939-0, L3100.1725, L3130.0010, L100.9950, L100.0100, L500.4050, L504.2610, L3100.1850, L3100.3425 ####[facility] [address] [place], [place], [phone]) Globulin (S) [Mass/Vol] 2.8 g/dL Normal 2.2-3.9 [facility] Comment on above: Order Comment: N Performed By: #### L 503.6030, L503.0106, L503.6550, D89648-1, L3100.1725, L3130.0010, L100.9950, L100.0100, L500.4050, L504.2610, L3100.1850, L3100.3425 ####[facility] [address] [place], [place], [phone](427) GEMA RESULT,S Comment: Normal . [facility] Comment on above: Order Comment: N Result Comment: Pres ence of monoclonal protein is unclear at this time. Suggestrepeat in 3 to 6 months if clinically indicated. Performed By: #### L 503.6030, L503.0106, L503.6550, K05928-4, L3100.1725, L3130.0010, L100.9950, L100.0100, L500.4050, L504.2610, L3100.1850, L3100.3425 ####[facility] [address] [place], [address] IMMUNOGLOB A QN 198 mg/dL Normal 87-352 [facility] Comment on above: Order Comment: N Performed By: #### L 503.6030, L503.0106, L503.6550, X64718-6, L3100.1725, L3130.0010, L100.9950, L100.0100, L500.4050, L504.2610, L3100.1850, L3100.3425 ####[facility] [address] [place], [place], [phone]) IMMUNOGLOB G QN 698 mg/dL Normal 586-1602 [facility] Comment on above: Order Comment: N Performed By: #### L 503.6030, L503.0106, L503.6550, X34122-7, L3100.1725, L3130.0010, L100.9950, L100.0100, L500.4050, L504.2610, L3100.1850, L3100.3425 ####[facility] [address] [place], [place], [phone](894) IMMUNOGLOB M QN 139 mg/dL Normal 26-217 [facility] Comment on above: Order Comment: N Performed By: #### L 503.6030, L503.0106, L503.6550, Q31767-0, L3100.1725, L3130.0010, L100.9950, L100.0100, L500.4050, L504.2610, L3100.1850, L3100.3425 ####[facility] [address] [place], [place], [phone]([phone] M-Milan Not Observed Normal Not Observed [facility] Comment on above: Order Comment: N Performed By: #### L 503.6030, L503.0106, L503.6550, Y79225-0, L3100.1725, L3130.0010, L100.9950, L100.0100, L500.4050, L504.2610, L3100.1850, L3100.3425 ####[facility] [address] [place], [address] NOTE: Comment Normal . [facility] Comment on above: Order Comment: N Result Comment: Prot ein electrophoresis scan will follow via computer,mail, or biofuels processing technician delivery. Performed By: #### L 503.6030, L503.0106, L503.6550, O62050-0, L3100.1725, L3130.0010, L100.9950, L100.0100, L500.4050, L504.2610, L3100.1850, L3100.3425 ####[facility] [address] [place], [address] Protein [Mass/Vol] 6.7 g/dL Normal 6.0-8.5 [facility] Comment on above: Order Comment: N Performed By: #### L 503.6030, L503.0106, L503.6550, B89030-7, L3100.1725, L3130.0010, L100.9950, L100.0100, L500.4050, L504.2610, L3100.1850, L3100.3425 ####[facility] [address] [place], [address] Iron and Iron binding capaci ty panelon 03-22-2025 Interpretation and review of laboratory results Abnormal [facility] Iron [Mass/Vol] 29 ug/dL Low 35 - 150 ug/dL [facility] Iron binding capacity [Mass/Vol] 340 ug/dL 240 - 445 ug/dL [facility] Iron binding capacity.unsaturated [Mass/Vol] 311 ug/dL 110 - 370 ug/dL [facility] Iron saturation [Mass fraction] 9 % Low 25 - 45 % [facility] Iron [Mass/Vol] 29 ug/dL Low 35-150 [facility] Comment on above: Performed By: #### 3 4529-8 #### LOPEZ Coreas ([id number]) [facility] ([facility]) [address] [place] [address]1965 Iron binding capacity [Mass/Vol] 340 ug/dL Normal 240-445 [facility] Comment on above: Performed By: #### 3 4529-8 #### LOPEZ Coreas (50601) [facility] ([facility]) [address] [place] [address] 10815 Iron binding capacity.unsaturated [Mass/Vol] 311 ug/dL Normal 110-370 [facility] Comment on above: Performed By: #### 3 4529-8 #### LOPEZ Coreas (09600) [facility] ([facility]) [address] [place] [address] 22430 Iron saturation [Mass fraction] 9 % Low 25-45 [facility] Comment on above: Performed By: #### 3 4529-8 #### LOPEZ Coreas ([id number]) [facility] ([facility]) [address] [place] [address] 14979 [place] Lambda Light Chainson 03-22-2025 FR KAPPA LT CHN 29.1 mg/L Abnormal 3.3-19.4 [facility] Comment on above: Performed By: #### L 503.6030, L503.0106, L503.6550, R80854-1, L3100.1725, L3130.0010, L100.9950, L100.0100, L500.4050, L504.2610, L3100.1850, L3100.3425 ####[facility] [address] [place], [place], [id number] FR LAMBDA LT CH 23.4 mg/L Normal 5.7-26.3 [facility] Comment on above: Performed By: #### L 503.6030, L503.0106, L503.6550, C68254-7, L3100.1725, L3130.0010, L100.9950, L100.0100, L500.4050, L504.2610, L3100.1850, L3100.3425 ####[facility] [address] [facility] [place], [place], [phone] KAPPA/LAMBDA % 1.24 Normal 0.26-1.65 [facility] Comment on above: Performed By: #### L 503.6030, L503.0106, L503.6550, Y64296-5, L3100.1725, L3130.0010, L100.9950, L100.0100, L500.4050, L504.2610, L3100.1850, L3100.3425 ####[facility] [address] [facility] [place], [place], [id number] Lipaseon 03-22-2025 Lipase [Catalytic activity/Vol] 28 U/L 9 - 82 U/L [facility] Lipase [Catalytic activity/V ol]on 03-22-2025 Interpretation and review of laboratory results Normal [facility] Venipuncture immediately after or during the administration of Metamizole may lead to falsely low results. Testing should be performed immediately prior to Metamizole dosing. [facility] Magnesiumon 03-22-2025 Magnesium [Mass/Vol] 2.16 mg/dL 1.60 - 2.40 mg/dL [facility] Magnesium [Mass/Vol] 2.16 mg/dL Normal 1.60-2.40 [facility] Comment on above: Performed By: #### 3 [id number] #### LOPEZ Coreas ([id number]) [facility] ([facility]) [address] [place] [address] Magnesium [Mass/Vol]on 03-22 Interpretation and review of laboratory results Normal [facility] No Panel Informationon 03-22 [facility] Prepare RBC: 1 Unitson 03-22 Blood Expiration Date 04/02/2025 11:59:00 PM EDT [facility] Dispense Status TR [facility] PRODUCT BLOOD TYPE [facility] PRODUCT CODE [id number] [facility] Unit ABO A [facility] Unit Number [id number] UNIT VOLUME 350 [facility] XM INTEP COMP [facility] Renal function 2000 panelon 03-22-2025 Albumin BCP dye [Mass/Vol] 3.2 g/dL Low 3.4 - 5.0 g/dL [facility] Anion gap [Moles/Vol] 13 mmol/L 10 - 2 0 mmol/L [facility] Calcium [Mass/Vol] 8.6 mg/dL 8.6 - 10. 6 mg/dL [facility] Chloride [Moles/Vol] 110 mmol/L High 98 - 10 7 mmol/L [facility] CO2 [Moles/Vol] 22 mmol/L 21 - 32 mmol/L [facility] Creatinine [Mass/Vol] 1.26 mg/dL High 0.50 - 1.05 mg/dL [facility] GFR/1.73 sq M.predicted among non-blacks MDRD (S/P/Bld) [Vol rate/Area] 47 mL/min/{1.73_m2} Low - PINF [facility] Comment on above: Calculations of araceli mated GFR are performed using the 2020 CKD-EPI Study Refit equation without the race variable for the IDMS-Traceable creatinine methods. https://jasn.asnjournals.org/content//ASN.333 0298747 Glucose [Mass/Vol] 90 mg/dL 74 - 99 mg/dL [facility] Interpretation and review of laboratory results Abnormal [facility] Phosphate [Mass/Vol] 3.6 mg/dL 2.5 - 4 .9 mg/dL [facility] Potassium [Moles/Vol] 4 mmol/L 3.5 - 5.3 mmol/L [facility] Sodium [Moles/Vol] 141 mmol/L 136 - 145 mmol/L [facility] Urea nitrogen [Mass/Vol] 22 mg/dL 6 - 23 mg/dL [facility] Albumin BCP dye [Mass/Vol] 3.2 g/dL Low 3.4-5.0 [facility] Comment on above: Performed By: #### 3 4529-8 #### LOPEZ Coreas ([id number]) [facility] ([facility]) [address] [place] [address] Anion gap [Moles/Vol] 13 mmol/L Normal 10-20 [facility] Comment on above: Performed By: #### 3 4529-8 #### LOPEZ Coreas ([id number]) [facility] ([facility]) [address] [place] [address] 30879 Calcium [Mass/Vol] 8.6 mg/dL Normal 8.6-10.6 [facility] Comment on above: Performed By: #### 3 4529-8 #### LOPEZ Coreas ([id number]) [facility] ([facility]) [address] [place] [address] 36134 Chloride [Moles/Vol] 110 mmol/L High 98-107 [facility] Comment on above: Performed By: #### 3 4529-8 #### LOPEZ Coreas ([id number]) [facility] ([facility]) [address] [place] [address] 66774 CO2 [Moles/Vol] 22 mmol/L Normal 21-32 [facility] Comment on above: Performed By: #### 3 4529-8 #### LOPEZ Coreas ([id number]) [facility] ([facility]) [address] [place] [address] 32004 Creatinine [Mass/Vol] 1.26 mg/dL High 0.50-1.05 [facility] Comment on above: Performed By: #### 3 4529-8 #### LOPEZ Coreas ([id number]) [facility] ([facility]) [address] [place] [address] 10284 Glomerular filtration rate/1.73 sq M.predicted 47 mL/min/1.73m*2 Low >60 [facility] Comment on above: Result Comment: Calc ulations of estimated GFR are performed using the 2020 CKD-EPI Study Refit equation without the race variable for the IDMS-Traceable creatinine methods. https://jasn.asnjournals.org/content//ASN.200 7987677 Performed By: #### 3 4529-8 #### LOPEZ Coreas ([id number]) [facility] ([facility]) [address] [place] [address] Glucose [Mass/Vol] 90 mg/dL Normal 74-99 [facility] Comment on above: Performed By: #### 3 4529-8 #### LOPEZ FAN L ([id number]) [facility] ([facility]) [address] [place] [address] 59777 Phosphate [Mass/Vol] 3.6 mg/dL Normal 2.5-4.9 [facility] Comment on above: Performed By: #### 3 4529-8 #### LOPEZ FAN L ([id number]) [facility] ([facility]) [address] [place] [address] 91456 Potassium [Moles/Vol] 4.0 mmol/L Normal 3.5-5.3 [facility] Comment on above: Performed By: #### 3 4529-8 #### LOPEZ AYONMOTZJULIO CÉSAR L ([id number]) [facility] ([facility]) [address] [place] [address] 33277 Sodium [Moles/Vol] 141 mmol/L Normal 136-145 [facility] Comment on above: Performed By: #### 3 4529-8 #### LOPEZ AYONMOTZJULIO CÉSAR L ([id number]) [facility] ([facility]) [address] [place] [address] 07525 Urea nitrogen [Mass/Vol] 22 mg/dL Normal 6-23 [facility] Comment on above: Performed By: #### 3 4529-8 #### LOPEZ SHEETSTZJULIO CÉSAR L ([id number]) [facility] ([facility]) [address] [place] [address] Reticulocytes panel (Bld)on 03-22-2025 Hemoglobin (Reticulocytes) [Entitic mass] 24 pg Low 28 - 38 pg [facility] Immature Retic fraction 25.7 % High NINF - 16.0 % [facility] Comment on above: Reticulocytes are me [...] Interpretation and review of laboratory results Abnormal [facility] Reticulocytes (Bld) [#/Vol] 0.14 10*3/uL High [facility] Reticulocytes/100 RBC (Bld) 5.6 % High 0.5 - 2.0 % [facility] Hemoglobin (Reticulocytes) [Entitic mass] 24 pg Low 28-38 [facility] Comment on above: Performed By: #### 3 4529-8 #### LOPEZ Coreas (48545) [facility] ([facility]) [address] [place] [address] IMMATURE RETIC FRACTION 25.7 % High <=16.0 U [facility] Comment on above: Result Comment: Reti culocytes [...] By: #### 3 4529-8 #### LOPEZ Coreas ([id number]) [facility] ([facility]) [address] [place], [place] [address] Reticulocytes (Bld) [#/Vol] 0.140 x10*6/uL High 0.017-0.110 [facility] Comment on above: Performed By: #### 3 4529-8 #### LOPEZ Coreas (44079) [facility] ([facility]) [address] [place] [address] 57201 Reticulocytes/100 RBC (Bld) 5.6 % High 0.5-2.0 [facility] Comment on above: Performed By: #### 3 4529-8 #### LOPEZ Coreas ([id number]) [facility] ([facility]) [address] [place] [address] 25267 Triacylglycerol lipaseon Lipase [Catalytic activity/Vol] 28 U/L Normal 9-82 [facility] Comment on above: Order Comment: The A PTT is no longer used for monitoring Unfractionated Heparin Therapy. For monitoring Heparin Therapy, use the Heparin Assay. Performed By: #### 3 4529-8 #### LOPEZ Coreas ([id number]) [facility] ([facility]) [address] [place] [address] 04297 ABO and Rh group panel (Bld) on 03-21-2025 ABO group Nom (Bld) A [facility] D Ag Ql (Bld) Positive [facility] ABO group Nom (Bld) A Normal [facility] Comment on above: Performed By: #### 3 4530-6 #### LOPEZ Coreas ([id number]) [facility] ([facility]) [address] [place] [address] 45001 D Ag Ql (Bld) Positive [facility] Comment on above: Performed By: #### 3 4530-6 #### LOPEZ Coreas ([id number]) [facility] ([facility]) [address] [place] [address] 35181 Blood type and Indirect anti body screen panel (Bld)on 03-21-2025 Blood group antibody screen Ql Negative [facility] Comment on above: Performed By: #### 3 4532-2 ####LOPEZ Coreas ([id number])[facility] ([facility])[address] [place] [address] 58663 CBC W Auto Differential pane l (Bld)on 03-21-2025 Basophils (Bld) [#/Vol] 0.12 10*3/uL High [facility] Basophils/100 WBC (Bld) 1.2 % 0.0 - 2.0 % [facility] Eosinophils (Bld) [#/Vol] 0.13 10*3/uL [facility] Eosinophils/100 WBC (Bld) 1.3 % 0.0 - 6.0 % [facility] Erythrocyte distribution width (RBC) [Ratio] 17.4 % High 11.5 - 14.5 % [facility] Hematocrit (Bld) [Volume fraction] 27.9 % Low 36.0 - 46.0 % [facility] Hemoglobin (Bld) [Mass/Vol] 8.8 g/dL Low 12.0 - 16.0 g/dL [facility] Immature granulocytes (Bld) [#/Vol] 0.03 10*3/uL [facility] Immature granulocytes/100 WBC (Bld) 0.3 % 0.0 - 0.9 % [facility] Comment on above: Immature Granulocyte Count (IG) includes promyelocytes, myelocytes and metamyelocytes but does not include bands. Percent differential counts (%) should be interpreted in the context of the absolute cell counts (cells/UL). Interpretation and review of laboratory results Abnormal [facility] Lymphocytes (Bld) [#/Vol] 1.62 10*3/uL [facility] Lymphocytes/100 WBC (Bld) 16.5 % 13.0 - 44.0 % [facility] MCH (RBC) [Entitic mass] 29.1 pg 26. 0 - 34.0 pg [facility] MCHC (RBC) [Mass/Vol] 31.5 g/dL Low 32.0 - 36.0 g/dL [facility] MCV (RBC) [Entitic vol] 92 fL 80 - 100 fL [facility] Monocytes (Bld) [#/Vol] 0.42 10*3/uL [facility] Monocytes/100 WBC (Bld) 4.3 % 2.0 - 10.0 % [facility] Neutrophils (Bld) [#/Vol] 7.51 10*3/uL [facility] Comment on above: Percent differential counts (%) should be interpreted in the context of the absolute cell counts (cells/uL). Neutrophils/100 WBC (Bld) 76.4 % 40.0 - 80.0 % [facility] Nucleated RBC/100 WBC (Bld) [Ratio] 0 % [facility] Platelets (Bld) [#/Vol] 252 10*3/uL [facility] RBC (Bld) [#/Vol] 3.02 10*6/uL Low [facility] WBC (Bld) [#/Vol] 9.8 10*3/uL [facility] Basophils (Bld) [#/Vol] 0.12 x10*3/uL High 0.00-0.10 [facility] Comment on above: Performed By: #### 5 7021-8 #### LOPEZ Coreas ([id number]) [facility] ([facility]) [address] [place] [address] 55670 Basophils/100 WBC (Bld) 1.2 % Normal 0.0-2.0 U [facility] Comment on above: Performed By: #### 5 7021-8 #### LOPEZ Coreas (56507) [facility] ([facility]) [address] [place] [address] 18078 Eosinophils (Bld) [#/Vol] 0.13 x10*3/uL Normal 0.00-0.70 [facility] Comment on above: Performed By: #### 5 7021-8 #### LOPEZ Coreas (93359) [facility] ([facility]) [address] [place] [address] 50604 Eosinophils/100 WBC (Bld) 1.3 % Normal 0.0-6.0 [facility] Comment on above: Performed By: #### 5 7021-8 #### LOPEZ Coreas (94184) [facility] ([facility]) [address] [place] [address] 95085 Erythrocyte distribution width (RBC) [Ratio] 17.4 % High 11.5-14.5 [facility] Comment on above: Performed By: #### 5 7021-8 #### LOPEZ Coreas (42020) [facility] ([facility]) [address] [place] [address] Hematocrit (Bld) [Volume fraction] 27.9 % Low 36.0-46.0 [facility] Comment on above: Performed By: #### 5 7021-8 #### LOPEZ FAN L (65978) [facility] ([facility]) [address] [place] [address] 86126 Hemoglobin (Bld) [Mass/Vol] 8.8 g/dL Low 12.0-16.0 [facility] Comment on above: Performed By: #### 5 7021-8 #### LOPEZ Coreas ([id number]) [facility] ([facility]) [address] [place] [address] 81463 Immature granulocytes (Bld) [#/Vol] 0.03 x10*3/uL Normal 0.00-0.70 [facility] Comment on above: Performed By: #### 5 7021-8 #### LOPEZ Coreas (20325) [facility] ([facility]) [address] [place] [address] 52704 Immature granulocytes/100 WBC (Bld) 0.3 % Normal 0.0-0.9 [facility] Comment on above: Result Comment: Leonora ture Granulocyte Count (IG) includes promyelocytes, myelocytes and metamyelocytes but does not include bands. Percent differential counts (%) should be interpreted in the context of the absolute cell counts (cells/UL). Performed By: #### 5 7021-8 #### LOPEZ Coreas (19860) [facility] ([facility]) [address] [place] [address] Lymphocytes (Bld) [#/Vol] 1.62 x10*3/uL Normal 1.20-4.80 [facility] Comment on above: Performed By: #### 5 7021-8 #### LOPEZ FAN L (48592) [facility] ([facility]) [address] [place] [address] 32012 Lymphocytes/100 WBC (Bld) 16.5 % Normal 13.0-44.0 [facility] Comment on above: Performed By: #### 5 7021-8 #### LOPEZ Coreas ([id number]) [facility] ([facility]) [address] [place] [address] 31704 MCH (RBC) [Entitic mass] 29.1 pg Normal 26.0-34.0 [facility] Comment on above: Performed By: #### 5 7021-8 #### LOPEZ Coreas (67773) [facility] ([facility]) [address] [place] [address] 86652 MCHC (RBC) [Mass/Vol] 31.5 g/dL Low 32.0-36.0 [facility] Comment on above: Performed By: #### 5 7021-8 #### LOPEZ Coreas (16450) [facility] ([facility]) [address] [place] [address] 71283 MCV (RBC) [Entitic vol] 92 fL Normal 80-100 U [facility] Comment on above: Performed By: #### 5 7021-8 #### LOPEZ Coreas (99878) [facility] ([facility]) [address] [place] [address] 84588 Monocytes (Bld) [#/Vol] 0.42 x10*3/uL Normal 0.10-1.00 [facility] Comment on above: Performed By: #### 5 7021-8 #### LOPEZ Coreas (34350) [facility] ([facility]) [address] [place] [address] 05335 Monocytes/100 WBC (Bld) 4.3 % Normal 2.0-10.0 U [facility] Comment on above: Performed By: #### 5 7021-8 #### LOPEZ Coreas (02856) [facility] ([facility]) [address] [place] [address] 65139 Neutrophils (Bld) [#/Vol] 7.51 x10*3/uL Normal 1.20-7.70 [facility] Comment on above: Result Comment: Perc ent differential counts (%) should be interpreted in the context of the absolute cell counts (cells/uL). Performed By: #### 5 7021-8 #### LOPEZ Coreas (47199) [facility] ([facility]) [address] [place] [address] Neutrophils/100 WBC (Bld) 76.4 % Normal 40.0-80.0 [facility] Comment on above: Performed By: #### 5 7021-8 #### LOPEZ Coreas (74982) [facility] ([facility]) [address] [place] [address] 88531 Nucleated RBC/100 WBC (Bld) [Ratio] 0.0 /100 WBCs Normal 0.0-0.0 [facility] Comment on above: Performed By: #### 5 7021-8 #### LOPEZ Coreas (66378) [facility] ([facility]) [address] [place] [address] 83588 Platelets (Bld) [#/Vol] 252 x10*3/uL Normal 150-450 [facility] Comment on above: Performed By: #### 5 7021-8 #### LOPEZ Coreas (16695) [facility] ([facility]) [address] [place] [address] 72492 RBC (Bld) [#/Vol] 3.02 x10*6/uL Low 4.00-5.20 [facility] Comment on above: Performed By: #### 5 7021-8 #### LOPEZ Coreas (40835) [facility] ([facility]) [address] [place] [address] 30369 WBC (Bld) [#/Vol] 9.8 x10*3/uL Normal 4.4-11.3 [facility] Comment on above: Performed By: #### 5 7021-8 #### OLPEZ Coreas ([id number]) [facility] ([facility]) [address] [place] [address] 22720 Comprehensive metabolic 2000 panelon 03-21-2025 Albumin BCP dye [Mass/Vol] 4.5 g/dL 3.4 - 5.0 g/dL [facility] ALP [Catalytic activity/Vol] 75 U/L 33 - 136 U/L [facility] ALT With P-5'-P [Catalytic activity/Vol] 16 U/L 7 - 45 U/L [facility] Comment on above: Patients treated wit h Sulfasalazine may generate falsely decreased results for ALT. Anion gap [Moles/Vol] 13 mmol/L 10 - 2 0 mmol/L [facility] AST With P-5'-P [Catalytic activity/Vol] 10 U/L 9 - 39 U/L [facility] Bilirubin [Mass/Vol] 0.6 mg/dL 0.0 - 1 .2 mg/dL [facility] Calcium [Mass/Vol] 10.1 mg/dL 8.6 - 10. 6 mg/dL [facility] Chloride [Moles/Vol] 107 mmol/L 98 - 10 7 mmol/L [facility] CO2 [Moles/Vol] 24 mmol/L 21 - 32 mmol/L [facility] Creatinine [Mass/Vol] 1.05 mg/dL 0.50 - 1.05 mg/dL [facility] GFR/1.73 sq M.predicted among non-blacks MDRD (S/P/Bld) [Vol rate/Area] 58 mL/min/{1.73_m2} Low - PINF [facility] Comment on above: Calculations of araceli mated GFR are performed using the 2020 CKD-EPI Study Refit equation without the race variable for the IDMS-Traceable creatinine methods. https://jasn.asnjournals.org/content//ASN.126 5316658 Glucose [Mass/Vol] 90 mg/dL 74 - 99 mg/dL [facility] Interpretation and review of laboratory results Abnormal [facility] Potassium [Moles/Vol] 4.1 mmol/L 3.5 - 5.3 mmol/L [facility] Protein [Mass/Vol] 7.3 g/dL 6.4 - 8.2 g/dL [facility] Sodium [Moles/Vol] 140 mmol/L 136 - 145 mmol/L [facility] Urea nitrogen [Mass/Vol] 18 mg/dL 6 - 23 mg/dL [facility] Albumin BCP dye [Mass/Vol] 4.5 g/dL Normal 3.4-5.0 [facility] Comment on above: Performed By: #### 2 4323-8 #### LOPEZ Coreas (52249) [facility] ([facility]) [address] [place] [address] 55475 ALP [Catalytic activity/Vol] 75 U/L Normal 33-136 [facility] Comment on above: Performed By: #### 2 4323-8 #### LOPEZ Coreas (13687) [facility] ([facility]) [address] [place] [address] 89039 ALT With P-5'-P [Catalytic activity/Vol] 16 U/L Normal 7-45 [facility] Comment on above: Result Comment: Luz ents treated with Sulfasalazine may generate falsely decreased results for ALT. Performed By: #### 2 4323-8 #### LOPEZ Coreas (22496) [facility] ([facility]) [address] [place] [address] 67461 Anion gap [Moles/Vol] 13 mmol/L Normal 10-20 [facility] Comment on above: Performed By: #### 2 4323-8 #### LOPEZ Coreas (06735) [facility] ([facility]) [address] [place] [address] 21930 AST With P-5'-P [Catalytic activity/Vol] 10 U/L Normal 9-39 [facility] Comment on above: Performed By: #### 2 4323-8 #### LOPEZ Coreas (48774) [facility] ([facility]) [address] [place] [address] 42974 Bilirubin [Mass/Vol] 0.6 mg/dL Normal 0.0-1.2 [facility] Comment on above: Performed By: #### 2 4323-8 #### LOPEZ FAN L (69131) [facility] ([facility]) [address] [place] [address] Calcium [Mass/Vol] 10.1 mg/dL Normal 8.6-10.6 [facility] Comment on above: Performed By: #### 2 4323-8 #### LOPEZ LIRIANOER L (37756) [facility] ([facility]) [address] [place] [address] Chloride [Moles/Vol] 107 mmol/L Normal 98-107 [facility] Comment on above: Performed By: #### 2 4323-8 #### LOPEZ SHEETSTZER L (38478) [facility] ([facility]) [address] [place] [address] 37415 CO2 [Moles/Vol] 24 mmol/L Normal 21-32 [facility] Comment on above: Performed By: #### 2 4323-8 #### LOPEZ FAN L (03800) [facility] ([facility]) [address] [place] [address] Creatinine [Mass/Vol] 1.05 mg/dL Normal 0.50-1.05 [facility] Comment on above: Performed By: #### 2 4323-8 #### LOPEZ LIRIANOER L (79331) [facility] ([facility]) [address] [place] [address] 54577 Glomerular filtration rate/1.73 sq M.predicted 58 mL/min/1.73m*2 Low >60 [facility] Comment on above: Result Comment: Calc ulations of estimated GFR are performed using the 2020 CKD-EPI Study Refit equation without the race variable for the IDMS-Traceable creatinine methods. https://jasn.asnjournals.org/content///ASN.764 2707108 Performed By: #### 2 4323-8 #### LOPEZ SHEETSTZER L ([id number]) [facility] ([facility]) [address] [place] [address] 41765 Glucose [Mass/Vol] 90 mg/dL Normal 74-99 [facility] Comment on above: Performed By: #### 2 4323-8 #### LOPEZ Coreas (74136) [facility] ([facility]) [address] [place] [address] 41990 Potassium [Moles/Vol] 4.1 mmol/L Normal 3.5-5.3 [facility] Comment on above: Performed By: #### 2 4323-8 #### LOPEZ Coreas (76288) [facility] ([facility]) [address] [place] [address] 06200 Protein [Mass/Vol] 7.3 g/dL Normal 6.4-8.2 [facility] Comment on above: Performed By: #### 2 4323-8 #### LOPEZ Coreas (26314) [facility] ([facility]) [address] [place] [address] 64629 Sodium [Moles/Vol] 140 mmol/L Normal 136-145 [facility] Comment on above: Performed By: #### 2 4323-8 #### LOPEZ Coreas (85987) [facility] ([facility]) [address] [place] [address] 96742 Urea nitrogen [Mass/Vol] 18 mg/dL Normal 6-23 [facility] Comment on above: Performed By: #### 2 4323-8 #### LOPEZ Coreas ([id number]) [facility] ([facility]) [address] [place] [address] 37246 D-dimer, quantitativeon - Fibrin D-dimer FEU (PPP) [Mass/Vol] 924 [facility] ECG 12-LEADon 03-21-2025 ECG 12-LEAD Ventricular Rate 75 Atrial Rate 75 P-R Interval 160 QRS Duration 70 Q-T Interval 374 QTC Calculation(Bazett) 417 P [place] 71 R [place] 66 T [place] 62 QRS Count 12 Q Onset 222 P Onset 142 P Offset 186 T Offset 409 QTC [place] 402 Diagnosis Normal sinus rhythm Normal ECG When compared with ECG of 21-MAR-2025 18:01, No significant change was found Confirmed by Abe Means ([id number]) on 03/22/2025 5:57:51 PM Normal [facility] ECG 12-LEAD Ventricular Rate 79 Atrial Rate 79 P-R Interval 156 QRS Duration 74 Q-T Interval 366 QTC Calculation(Bazett) 419 P [place] 80 R [place] 76 T [place] 76 QRS Count 13 Q Onset 224 P Onset 146 P Offset 197 T Offset 407 QTC [place] 401 Diagnosis Normal sinus rhythm Normal ECG No previous ECGs available See ED provider note for full interpretation and clinical correlation Confirmed by Pilar Borja ([id number]) on 03/22/2025 12:59:17 AM Normal [facility] Fibrin D-dimer FEUon 025 Fibrin D-dimer FEU (PPP) [Mass/Vol] 924 ng/mL FEU High <=500 [facility] Comment on above: Order Comment: The D -Dimer assay is reported in ng/mL Fibrinogen Equivalent Units (FEU). The results of this assay should NOT be used for the exclusion of Deep Vein Thrombosis and/or Pulmonary Embolism. Performed By: #### 4 8065-7 #### LOPEZ Coreas ([id number]) [facility] ([facility]) [address] [place] [address] Fibrin D-dimer FEU (PPP) [Ma ss/Vol]on 03-21-2025 Interpretation and review of laboratory results Abnormal [facility] The D-Dimer assay is reported in ng/mL Fibrinogen Equivalent Units (FEU). The results of this assay should NOT be used for the exclusion of Deep Vein Thrombosis and/or Pulmonary Embolism. [facility] Natriuretic peptide B [Mass/ Vol]on 03-21-2025 Interpretation and review of laboratory results Abnormal [facility] Natriuretic peptide B (Bld) [Mass/Vol] 251 pg/mL High 0 - 99 pg/mL [facility] <100 pg/mL - Heart failure unlikely [...] contact their local laboratory for further information. [facility] Natriuretic peptide B (Bld) [Mass/Vol] 251 pg/mL High 0-99 [facility] Comment on above: Order Comment: <100 [...] By: #### 3 0934-4 #### LOPEZ Coreas ([id number]) [facility] ([facility]) [address] [place] [address] PT and aPTT panel Coag (PPP) on 03-21-2025 aPTT Coag (PPP) [Time] 28 s [facility] INR Coag (PPP) [Relative time] 1 {INR} 0.9 - 1.1 [facility] Interpretation and review of laboratory results Normal [facility] PT Coag (PPP) [Time] 11.3 s [facility] The APTT is no longe r used for monitoring Unfractionated Heparin Therapy. For monitoring Heparin Therapy, use the Heparin Assay. [facility] aPTT Coag (PPP) [Time] 28 s Normal 26-36 [facility] Comment on above: Order Comment: The A PTT is no longer used for monitoring Unfractionated Heparin Therapy. For monitoring Heparin Therapy, use the Heparin Assay. Performed By: #### 3 4529-8 #### LOPEZ Coreas ([id number]) [facility] ([facility]) [address] [place] [address] INR Coag (PPP) [Relative time] 1.0 Normal 0.9-1.1 [facility] Comment on above: Order Comment: The A PTT is no longer used for monitoring Unfractionated Heparin Therapy. For monitoring Heparin Therapy, use the Heparin Assay. Performed By: #### 3 4529-8 #### LOPEZ Coreas ([id number]) [facility] ([facility]) [address] [place] [address] PT Coag (PPP) [Time] 11.3 s Normal 9.8-12.4 [facility] Comment on above: Order Comment: The A PTT is no longer used for monitoring Unfractionated Heparin Therapy. For monitoring Heparin Therapy, use the Heparin Assay. Performed By: #### 3 4529-8 #### LOPEZ AYONMOTRISTONER L ([id number]) [facility] ([facility]) [address] [place] [address] Tropinin I.cardiac panel Hig h sensitivity methodon 03-21-2025 Interpretation and review of laboratory results Normal [facility] Less than 99th percentile of normal [...] performed using a different testing methodology at [facility] than at other [facility]. Direct result comparisons should only be made within the same method. [facility] Troponin I, High Sensitivity on 03-21-2025 Tropinin I.cardiac panel High sensitivity method 11 ng/L 0 - 34 ng/L [facility] Troponin I.cardiac panelon 0 03-21-2025 Tropinin I.cardiac panel High sensitivity method 11 ng/L Normal 0-34 [facility] Comment on above: Order Comment: Less [...] performed using a different testing methodology at [facility] than at other [facility]. Direct result comparisons should only be made within the same method. Performed By: #### 8 9577-1 #### LOPEZ Coreas ([id number]) [facility] ([facility]) [id number] [place] [address] VERAB/VERIFY ABORHon 025 ABO group Nom (Bld) A Normal [facility] Comment on above: Order Comment: Thi s is for confirming/verifying history of ABORh on file for transfusion of blood products. If this is not for transfusion, please order an ABO/RH [[id number]]. If you have any questions or unsure what to order, please call the blood bank. Performed By: #### V ERAB #### LOPEZ Coreas ([id number]) [facility] ([facility]) [id number] [place], [place] [id number] D Ag Ql (Bld) Positive Normal [facility] Comment on above: Order Comment: Thi s is for confirming/verifying history of ABORh on file for transfusion of blood products. If this is not for transfusion, please order an ABO/RH [[id number]]. If you have any questions or unsure what to order, please call the blood bank. Performed By: #### V ERAB #### LOPEZ Coreas ([id number]) [facility] ([facility]) [address] [place] [address] VERIFY ABO/Rh Group Teston 0 03-21-2025 ABO group Nom (Bld) A [facility] D Ag Ql (Bld) Positive [facility] XR CHEST 1 VIEWon 03-21-2025 XR CHEST 1 VIEW Interpreted By: Dorcas Roman, STUDY: Chest, single AP view. INDICATION: Signs/Symptoms:sob. COMPARISON: None. ACCESSION NUMBER(S): [id number] ORDERING CLINICIAN: NOHEMY PALUMBO FINDINGS: The cardiac [...] Dorcas Roman 03/21/2025 5:10 PM Dictation workstation: [id number] [facility] XR Chest Single viewon 03-21 1. [...] Dorcas Roman 03/21/2025 5:10 PM Dictation workstation: [id number] MMODAL Interpreted By: Dorcas Roman, STUDY: Chest, single AP view. INDICATION: Signs/Symptoms:sob. COMPARISON: None. ACCESSION NUMBER(S): [id number] ORDERING CLINICIAN: NOHEMY PALUMBO FINDINGS: The cardiac [...] view. INDICATION: Signs/Symptoms:sob. COMPARISON: None. ACCESSION NUMBER(S): [id number] ORDERING CLINICIAN: NOHEMY PALUMBO FINDINGS: The cardiac [...] Dorcas Roman 03/21/2025 5:10 PM Dictation workstation: [id number] [facility] Work Phone: Radiology Study observation (narrative) [facility] Work Phone: XR Chest Single viewOrdered By: Dorcas Roman on 03-21-2025 [facility] Work Phone: Absolute lymphocyte countOrd ered By: Dax Álvarez on 03-20-2025 Lymphocytes Auto (Unsp spec) [#/Vol] 1.35 10*3/uL 0.83-4.51 [facility] Albumin Elph [Mass/Vol]Order ed By: Dax Álvarez on 03-20-2025 Albumin [Mass/Vol] 3.9 g/dL 2.9-4.4 [facility] Anion gap in Serum or Plasma Ordered By: Dax Álvarez on 03-20-2025 Anion gap [Moles/Vol] 12 mmol/L 5-15 [facility] Automated lymphocyte count a s percentage of total leukocytesOrdered By: Dax Álvarez on 03-20-2025 Lymphocytes/100 WBC Auto (Unsp spec) 15.5 % Low 19-41 [facility] [id number] 03-20-2025 DIRECT PEACE NEG w/POLYSPECIFIC Normal NEGATIVE [facility] Comment on above: Performed By: #### L 503.6030, L503.0106, L503.6550, [id number], L3100.1725, L3130.0010, L100.9950, L100.0100, L500.4050, L504.2610, L3100.1850, L3100.3425 ####[facility] [address] [place], [address] BUN/creatinine ratioOrdered By: Dax Álvarez on 03-20-2025 Urea nitrogen/Creatinine [Mass ratio] 19.0 mg/mg 10-20 [facility] Basophil percentageOrdered B y: Dax Álvarez on 03-20-2025 Basophils/100 WBC (Bld) 1.6 % High 0-1 [facility] Bilirubin, totalOrdered By: Dax Álvarez on 03-20-2025 Bilirubin [Mass/Vol] 0.43 mg/dL 0.00-1.30 [facility] CBC W/Diff, Automatedon 02-22 Anisocytosis Ql (Bld) 1+ Normal [facility] Comment on above: Performed By: #### L 503.6030, L503.0106, L503.6550, [id number], L3100.1725, L3130.0010, L100.9950, L100.0100, L500.4050, L504.2610, L3100.1850, L3100.3425 ####[facility] [address] [place], [place], [id number] Carbon dioxide, total [Moles /volume] in Central venous bloodOrdered By: Dax Álvarez on 03-20-2025 CO2 [Moles/Vol] 22.3 mmol/L 21.0-32.0 [facility] Chloride assayOrdered By: Lobito Álvarez on 03-20-2025 Chloride [Moles/Vol] 106 mmol/L 98-108 [facility] Comprehensive Metabolic Prof ilon 03-20-2025 Albumin [Mass/Vol] 4.2 g/dL Normal 3.4-4.8 [facility] Comment on above: Performed By: #### L 503.6030, L503.0106, L503.6550, [id number], L3100.1725, L3130.0010, L100.9950, L100.0100, L500.4050, L504.2610, L3100.1850, L3100.3425 ####[facility] [address] [place], [address] Albumin/Globulin [Mass ratio] 1.6 {ratio} Normal 0.9-2.4 [facility] Comment on above: Performed By: #### L 503.6030, L503.0106, L503.6550, P63261-7, L3100.1725, L3130.0010, L100.9950, L100.0100, L500.4050, L504.2610, L3100.1850, L3100.3425 ####[facility] [address] [place], [place], [phone] Globulin (S) [Mass/Vol] 2.7 g/dL Normal 2.2-4.2 [place] Comment on above: Performed By: #### L 503.6030, L503.0106, L503.6550, [id number], L3100.1725, L3130.0010, L100.9950, L100.0100, L500.4050, L504.2610, L3100.1850, L3100.3425 ####[facility] [address] [facility] [place], [address] Eosinophil percentageOrdered By: [facility] on 03-20-2025 Eosinophils/100 WBC (Bld) 1.7 % 0-5 [facility] Erythrocyte distribution wid th ratioOrdered By: [facility] Henri on 03-20-2025 Erythrocyte distribution width (RBC) [Ratio] 18.5 % High 11.6-14.6 [facility] Erythrocyte distribution wid th standard deviationOrdered By: [facility] on 03-20-2025 Erythrocyte distribution width (RBC) [Ratio] 66.7 fl High 35.1-43.9 [facility] Erythrocyte folate measureme nt with hematocritOrdered By: [facility] on 03-20-2025 Hematocrit (Bld) [Volume fraction] 33.9 % Low 34.0-46.6 [facility] Ferritinon 03-20-2025 Ferritin [Mass/Vol] 64 ng/mL Normal 22-378 [facility] Comment on above: Performed By: #### L 503.6030, L503.0106, L503.6550, [id number], L3100.1725, L3130.0010, L100.9950, L100.0100, L500.4050, L504.2610, L3100.1850, L3100.3425 ####[facility] [address] [facility] [place], [address] Glomerular filtration rate ( GFR) estimation/1.73 sq m using serum, plasma, or whole bOrdered By: [facility] on 03-20-2025 GFR/1.73 sq M.predicted among non-blacks MDRD (S/P/Bld) [Vol rate/Area] 54 mL/min/{1.73_m2} Low >60 [facility] Hematocrit Auto (Bld) [Volum e fraction]Ordered By: [facility] on 03-20-2025 Hematocrit (Bld) [Volume fraction] 28.2 % Low 37-47 [facility] Hemoglobin measurementOrdere d By: Dax Álvarez on 03-20-2025 Hemoglobin (Bld) [Mass/Vol] 8.6 g/dL Low 12.0-15.0 [facility] Immature granulocytes/100 WB C Auto (Bld)Ordered By: Dax Álvarez on 03-20-2025 Immature granulocytes/100 WBC (Bld) 0.700 % 0.0-0.9 [facility] Interpretation of serum or p lasma protein pattern by immunofixation (narrative resultOrdered By: Dax Álvarez on 03-20-2025 Protein Fractions Immunofixation Bassam [Interp] Not Observed g/dL Not Observed [facility] Iron measurement (mass/mass) Ordered By: Dax Álvarez on 03-20-2025 Iron (Unsp spec) [Mass/Mass] 29 ug/dL Low 50-170 [facility] Iron+Iron Binding Capacityon 03-20-2025 Iron [Mass/Vol] 29 ug/dL Low 50-170 [facility] Comment on above: Performed By: #### L 503.6030, L503.0106, L503.6550, Q37533-3, L3100.1725, L3130.0010, L100.9950, L100.0100, L500.4050, L504.2610, L3100.1850, L3100.3425 ####[facility] [address] [place], [place], [id number] IRON SATURATION 8.0 Low 13-59 [facility] Comment on above: Performed By: #### L 503.6030, L503.0106, L503.6550, J86379-0, L3100.1725, L3130.0010, L100.9950, L100.0100, L500.4050, L504.2610, L3100.1850, L3100.3425 ####[facility] [address] [place], [place], [phone] TIBC 372 ug/dL Normal 250-450 [facility] Comment on above: Performed By: #### L 503.6030, L503.0106, L503.6550, [id number], L3100.1725, L3130.0010, L100.9950, L100.0100, L500.4050, L504.2610, L3100.1850, L3100.3425 ####[facility] [address] [place], [place], [phone] UIBC 343 ug/dL Normal 228-428 [facility] Comment on above: Performed By: #### L 503.6030, L503.0106, L503.6550, K70718-9, L3100.1725, L3130.0010, L100.9950, L100.0100, L500.4050, L504.2610, L3100.1850, L3100.3425 ####[facility] [address] [place], [address] LDHon 03-20-2025 LDH 183 U/L Normal 84-246 [facility] Comment on above: Order Comment: 1 Performed By: #### L 503.6030, L503.0106, L503.6550, U88144-7, L3100.1725, L3130.0010, L100.9950, L100.0100, L500.4050, L504.2610, L3100.1850, L3100.3425 ####[facility] [address] [place], [place], [phone] MCV (mean corpuscular volume ) determinationOrdered By: Dax Álvarez on 03-20-2025 MCV (RBC) [Entitic vol] 97.9 fL 81-99 [facility] Mean corpuscular hemoglobin (MCH) determinationOrdered By: Dax Álvarez on 03-20-2025 MCH (RBC) [Entitic mass] 29.9 pg 27.0-32.0 [facility] Monocyte percentageOrdered B y: Dax Álvarez on 03-20-2025 Monocytes/100 WBC (Bld) 4.6 % 0-10 [facility] Neutrophil percentageOrdered By: Dax Álvarez on 03-20-2025 Neutrophils/100 WBC (Bld) 75.9 % High 47-70 [facility] No Panel InformationOrdered By: Dax Álvarez on 03-20-2025 Addendum Document Comment . [facility] 1+ [facility] 12 U/L <32 [facility] 343 ug/dL 228-428 [facility] Oncology Visit Reporton 02-22 Oncology Visit Report Normal [facility] Platelet countOrdered By: Lobito Álvarez on 03-20-2025 Platelets (Bld) [#/Vol] 267 10*3/uL 150-450 [facility] Potassium measurement (mass/ volume)Ordered By: Dax Álvarez on 03-20-2025 Potassium (Unsp spec) [Mass/Vol] 3.8 mmol/L 3.3-5.1 [facility] RBC Auto (Bld) [#/Vol]Ordere d By: Dax Álvarez on 03-20-2025 RBC (Bld) [#/Vol] 2.88 10*6/uL Low 4.2-5.4 [facility] Retic Panelon 03-20-2025 IM RET FRACTION 24.80 High 3.00-15.90 [facility] Comment on above: Performed By: #### L 503.6030, L503.0106, L503.6550, J84270-1, L3100.1725, L3130.0010, L100.9950, L100.0100, L500.4050, L504.2610, L3100.1850, L3100.3425 ####[facility] [address] [place], [place], [phone] RET-HE 24.0 pg Low 30-35 [facility] Comment on above: Performed By: #### L 503.6030, L503.0106, L503.6550, X87153-7, L3100.1725, L3130.0010, L100.9950, L100.0100, L500.4050, L504.2610, L3100.1850, L3100.3425 ####[facility] [address] [place], [place], [id number] Retic Count 6.71 High 0.5-1.5 [facility] Comment on above: Performed By: #### L 503.6030, L503.0106, L503.6550, S46822-2, L3100.1725, L3130.0010, L100.9950, L100.0100, L500.4050, L504.2610, L3100.1850, L3100.3425 ####[facility] [address] [place], [place], [phone] Reticulocyte hemoglobin equi valent (RET-He) measurementOrdered By: Dax Álvarez on 03-20-2025 Hemoglobin (Reticulocytes) [Entitic mass] 24.0 pg Low 30-35 [facility] Reticulocytes Auto (Bld) [#/ Vol]Ordered By: Dax Álvarez on 03-20-2025 Reticulocytes/100 RBC (Bld) 6.71 % High 0.5-1.5 [facility] Serum creatinine measurement (mass/volume)Ordered By: Dax Álvarez on 03-20-2025 Creatinine [Mass/Vol] 1.11 mg/dL 0.70-1.20 [facility] Serum globulin measurementOr dered By: Dax Álvarez on 03-20-2025 Globulin (S) [Mass/Vol] 2.7 g/dL 2.2-4.2 [facility] Serum globulin measurement ( mass/volume)Ordered By: Dax Álvarez on 03-20-2025 Globulin (S) [Mass/Vol] 2.8 g/dL 2.2-3.9 [facility] Serum glucose measurement (m ass/volume)Ordered By: Dax Álvarez on 03-20-2025 Glucose [Mass/Vol] 108 mg/dL High 70-99 [facility] Serum immunoglobulin kappa l ight chains/immunoglobulin lambda light chains mass ratioOrdered By: Dax Álvarez on 03-20-2025 Immunoglobulin light chains.kappa/Immunoglobu amos light chains.lambda (S) [Mass ratio] 1.24 0.26-1.65 [facility] Serum or plasma IgA measurem ent (mass/volume)Ordered By: Dax Álvarez on 03-20-2025 IgA [Mass/Vol] 198 mg/dL 87-352 [facility] Serum or plasma IgG measurem ent (mass/volume)Ordered By: Dax Álvarez on 03-20-2025 IgG [Mass/Vol] 698 mg/dL 586-1602 [facility] Serum or plasma alanine tovar otransferase (ALT) measurementOrdered By: Dax Álvarez on 03-20-2025 ALT [Catalytic activity/Vol] 18 U/L <35 [facility] Serum or plasma albumin rosalina urement (mass/volume)Ordered By: Dax Álvarez on 03-20-2025 Albumin [Mass/Vol] 4.2 g/dL 3.4-4.8 [facility] Serum or plasma albumin/glob ulin mass ratioOrdered By: Dax Álvarez on 03-20-2025 Albumin/Globulin [Mass ratio] 1.6 {ratio} 0.9-2.4 [facility] Serum or plasma alkaline blanche sphatase measurementOrdered By: Dax Álvarez on 03-20-2025 ALP [Catalytic activity/Vol] 82 U/L 35-104 [facility] Serum or plasma alpha 1 glob ulin measurement by electrophoresis (mass/volume)Ordered By: Dax Álvarez on 03-20-2025 Alpha 1 globulin Elph [Mass/Vol] 0.3 g/dL 0.0-0.4 [facility] Alpha 1 globulin Elph [Mass/Vol] 0.8 g/dL 0.4-1.0 [facility] Serum or plasma beta globuli n measurement by electrophoresis (mass/volume)Ordered By: Dax Álvarez on 03-20-2025 Beta globulin Elph [Mass/Vol] 1.0 g/dL 0.7-1.3 [facility] Serum or plasma calcium rosalina urement (mass/volume)Ordered By: Dax Álvarez on 03-20-2025 Calcium [Mass/Vol] 9.5 mg/dL 7.6-11.0 [facility] Serum or plasma ferritin peyton surement (mass/volume)Ordered By: Dax Álvarez on 03-20-2025 Ferritin [Mass/Vol] 64 ng/mL 22-378 [facility] Serum or plasma gamma globul in measurement by electrophoresis (mass/volume)Ordered By: Dax Álvarez on 03-20-2025 Gamma globulin Elph [Mass/Vol] 0.6 g/dL 0.4-1.8 [facility] Serum or plasma immunoelectr ophoresis interpretation (nominal result)Ordered By: Dax Álvarez on 03-20-2025 Interpretation IEP [Interp] Comment: . [facility] Serum or plasma immunoglobul in kappa light chains measurement (mass/volume)Ordered By: Dax Álvarez on 03-20-2025 Immunoglobulin light chains.kappa [Mass/Vol] 29.1 mg/L High 3.3-19.4 [facility] Serum or plasma iron saturat ion measurement (mass fraction)Ordered By: Dax Álvarez on 03-20-2025 Iron saturation [Mass fraction] 8.0 % Low 13-59 [facility] Serum or plasma protein rosalina urement (mass/volume)Ordered By: Dax Álvarez on 03-20-2025 Protein [Mass/Vol] 6.7 g/dL 6.0-8.5 [facility] Serum or plasma urea nitroge n measurement (mass/volume)Ordered By: Dax Álvarez on 03-20-2025 Urea nitrogen [Mass/Vol] 21 mg/dL High 4-19 [facility] Sodium levelOrdered By: Zac Álvarez on 03-20-2025 Sodium [Moles/Vol] 141 mmol/L 133-145 [facility] Total proteinOrdered By: Camilo Álvarez on 03-20-2025 Protein [Mass/Vol] 6.9 g/dL 5.9-8.4 [facility] Vitamin B12on 03-20-2025 Cobalamin (Vitamin B12) [Mass/Vol] 269 pg/mL Normal 180-914 [facility] Comment on above: Performed By: #### L 503.6030, L503.0106, L503.6550, G38525-4, L3100.1725, L3130.0010, L100.9950, L100.0100, L500.4050, L504.2610, L3100.1850, L3100.3425 ####[facility] [address] [place], [place], [address] Vitamin B12 ser/plasOrdered By: Dax Álvarez on 03-20-2025 Cobalamin (Vitamin B12) [Mass/Vol] 269 pg/mL 180-914 [facility] White blood cell (WBC) count Ordered By: Dax Álvarez on 03-20-2025 WBC (Bld) [#/Vol] 8.7 10*3/uL 4.4-11.0 [facility] ABORh Blood Type, Patienton 03-18-2025 ABO and Rh group Nom (Bld) Blood group A Rh(D) negative Normal [facility] Comment on above: Order Comment: CMV N EG? NNumber of units to transfuse: 1Reason for Ordering Blood: AcuteAre the blood/blood products to be transfused? YIs the patient having/had surgery? NWhen Kimi Performed By: #### B tABORH, BRC, BTS ####[facility] [address] [place], [place], [phone] Absolute lymphocyte countOrd ered By: Inderjit Gilmore on 03-18-2025 Lymphocytes Auto (Unsp spec) [#/Vol] 1.50 10*3/uL 0.83-4.51 [facility] Anion gap in Serum or Plasma Ordered By: Inderjit Gilmore on 03-18-2025 Anion gap [Moles/Vol] 12 mmol/L 5-15 [facility] Automated lymphocyte count a s percentage of total leukocytesOrdered By: Inderjit Gilmore on 03-18-2025 Lymphocytes/100 WBC Auto (Unsp spec) 18.4 % Low 19-41 [facility] BRCon 03-18-2025 RC Normal [facility] Comment on above: Result Comment: [id number] AN RC TRANSFUSED 03/18/25 0828 Performed By: #### B tABORH, BRC, BTS ####[facility] [address] [place], [address] BUN/creatinine ratioOrdered By: Inderjit Gilmore on 03-18-2025 Urea nitrogen/Creatinine [Mass ratio] 23.8 mg/mg High 10-20 [facility] Basic Metabolic Profile (BMP )on 03-18-2025 BUN/CRE 23.8 RATIO High 10-20 [facility] Comment on above: Performed By: #### L 500.2500, L500.3400, L100.0100, L501.2450 ####[facility] [address] [place], [address] Calcium [Mass/Vol] 9.4 mg/dL Normal 7.6-11.0 [facility] Comment on above: Performed By: #### L 500.2500, L500.3400, L100.0100, L501.2450 ####[facility] [address] [place], [address] Chloride [Moles/Vol] 107 mmol/L Normal 98-108 [facility] Comment on above: Performed By: #### L 500.2500, L500.3400, L100.0100, L501.2450 ####[facility] [address] [place], [address] CO2 [Moles/Vol] 21.2 mmol/L Normal 21.0-32.0 [facility] Comment on above: Performed By: #### L 500.2500, L500.3400, L100.0100, L501.2450 ####[facility] [address] [place], [address] Creatinine [Mass/Vol] 1.01 mg/dL Normal 0.70-1.20 [facility] Comment on above: Performed By: #### L 500.2500, L500.3400, L100.0100, L501.2450 ####[facility] [address] [place], [address] ECRCL 52.56 ml/min Normal 50-250 [facility] Comment on above: Performed By: #### L 500.2500, L500.3400, L100.0100, L501.2450 ####[facility] [address] [place], [address] GAP 12 Normal 5-15 [facility] Comment on above: Performed By: #### L 500.2500, L500.3400, L100.0100, L501.2450 ####[facility] [address] [place], [address] GFR/1.73 sq M.predicted among non-blacks MDRD (S/P/Bld) [Vol rate/Area] 61 mL/min/{1.73_m2} Normal >60 [facility] Comment on above: Result Comment: mL/m in/1.73m2 CKD-EPI Creatinine Equation (2020) Performed By: #### L 500.2500, L500.3400, L100.0100, L501.2450 ####[facility] [id number] [place], [address] Glucose [Mass/Vol] 108 mg/dL High 70-99 [facility] Comment on above: Performed By: #### L 500.2500, L500.3400, L100.0100, L501.2450 ####[facility] [id number] [place], [address] Potassium [Moles/Vol] 3.9 mmol/L Normal 3.3-5.1 [facility] Comment on above: Performed By: #### L 500.2500, L500.3400, L100.0100, L501.2450 ####[facility] [id number] [place], [address] Sodium [Moles/Vol] 141 mmol/L Normal 133-145 [facility] Comment on above: Performed By: #### L 500.2500, L500.3400, L100.0100, L501.2450 ####[facility] [id number] [place], [address] Urea nitrogen [Mass/Vol] 24 mg/dL High 4-19 [facility] Comment on above: Performed By: #### L 500.2500, L500.3400, L100.0100, L501.2450 ####[facility] [address] [place], [address] Basophil percentageOrdered B y: Inderjit Gilmore on 03-18-2025 Basophils/100 WBC (Bld) 1.2 % High 0-1 [facility] Bilirubin directOrdered By: Inderjit Gilmore on 03-18-2025 Bilirubin.direct [Mass/Vol] 0.12 mg/dL 0.00-0.30 [facility] Bilirubin, totalOrdered By: Inderjit Gilmore on 03-18-2025 Bilirubin [Mass/Vol] 0.24 mg/dL 0.00-1.30 [facility] CBC W/Diff, Automatedon - Anisocytosis Ql (Bld) RARE Normal [facility] Comment on above: Performed By: #### L 500.2500, L500.3400, L100.0100, L501.2450 ####[facility] [address] [place], [address] Carbon dioxide, total [Moles /volume] in Central venous bloodOrdered By: Inderjit Gilmore on 03-18-2025 CO2 [Moles/Vol] 21.2 mmol/L 21.0-32.0 [facility] Chloride assayOrdered By: Huy Gilmore on 03-18-2025 Chloride [Moles/Vol] 107 mmol/L 98-108 [facility] Emergency Department Summary on 03-18-2025 Emergency Department Summary Normal [facility] Eosinophil percentageOrdered By: Inderjit Gilmore on 03-18-2025 Eosinophils/100 WBC (Bld) 3.2 % 0-5 [facility] Erythrocyte distribution wid th ratioOrdered By: Inderjit Gilmore on 03-18-2025 Erythrocyte distribution width (RBC) [Ratio] 18.1 % High 11.6-14.6 [facility] Erythrocyte distribution wid th standard deviationOrdered By: Inderjit Gilmore on 03-18-2025 Erythrocyte distribution width (RBC) [Ratio] 67.1 fl High 35.1-43.9 [facility] Glomerular filtration rate ( GFR) estimation/1.73 sq m using serum, plasma, or whole bOrdered By: Inderjit Gilmore on 03-18-2025 GFR/1.73 sq M.predicted among non-blacks MDRD (S/P/Bld) [Vol rate/Area] 61 mL/min/{1.73_m2} >60 [facility] Hematocrit Auto (Bld) [Volum e fraction]Ordered By: Inderjit Gilmore on 03-18-2025 Hematocrit (Bld) [Volume fraction] 23.4 % Low 37-47 [facility] Hemoglobin measurementOrdere d By: Inderjit Gilmore on 03-18-2025 Hemoglobin (Bld) [Mass/Vol] 7.0 g/dL Low 12.0-15.0 [facility] Immature granulocytes/100 WB C Auto (Bld)Ordered By: Inderjit Gilmore on 03-18-2025 Immature granulocytes/100 WBC (Bld) 0.500 % 0.0-0.9 [facility] Lipaseon 03-18-2025 Lipase [Catalytic activity/Vol] 49 U/L Normal 13-75 [facility] Comment on above: Result Comment: Ash white note:LIPASE revised reference range effective 23.New Lipase methodology. Expected to produce lower valuesthan the previous assay method.NEW Reference Range: 13 - 75 U/L Performed By: #### L 500.2500, L500.3400, L100.0100, L501.2450 ####[facility] [address] [place], [place], [address] Liver Profileon 03-18-2025 Albumin [Mass/Vol] 3.8 g/dL Normal 3.4-4.8 [facility] Comment on above: Performed By: #### L 500.2500, L500.3400, L100.0100, L501.2450 ####[facility] [address] [place], [address] ALK PHOS 62 U/L Normal 35-104 [facility] Comment on above: Performed By: #### L 500.2500, L500.3400, L100.0100, L501.2450 ####[facility] [address] [place], [address] ALT [Catalytic activity/Vol] 15 U/L Normal <=34 [facility] Comment on above: Performed By: #### L 500.2500, L500.3400, L100.0100, L501.2450 ####[facility] [address] [place], [address] AST [Catalytic activity/Vol] 11 U/L Normal <=31 [facility] Comment on above: Performed By: #### L 500.2500, L500.3400, L100.0100, L501.2450 ####[facility] [address] [place], [address] Bilirubin [Mass/Vol] 0.24 mg/dL Normal 0.00-1.30 [facility] Comment on above: Performed By: #### L 500.2500, L500.3400, L100.0100, L501.2450 ####[facility] [address] [place], [address] Bilirubin.direct [Mass/Vol] 0.12 mg/dL Normal 0.00-0.30 [facility] Comment on above: Performed By: #### L 500.2500, L500.3400, L100.0100, L501.2450 ####[facility] [address] [place], [address] Globulin (S) [Mass/Vol] 2.3 g/dL Normal 2.2-4.2 [place] Comment on above: Performed By: #### L 500.2500, L500.3400, L100.0100, L501.2450 ####[facility] [address] [place], [address] T PROT 6.1 g/dL Normal 5.9-8.4 [facility] Comment on above: Performed By: #### L 500.2500, L500.3400, L100.0100, L501.2450 ####[facility] [address] [place], [address] MCV (mean corpuscular volume ) determinationOrdered By: Inderjit Gilmore on 03-18-2025 MCV (RBC) [Entitic vol] 102.2 fL High 81-99 [facility] Mean corpuscular hemoglobin (MCH) determinationOrdered By: Inderjit Gilmore on 03-18-2025 MCH (RBC) [Entitic mass] 30.6 pg 27.0-32.0 [facility] Monocyte percentageOrdered B y: Inderjit Gilmore on 03-18-2025 Monocytes/100 WBC (Bld) 6.1 % 0-10 [facility] Neutrophil percentageOrdered By: Inderjit Gilmore on 03-18-2025 Neutrophils/100 WBC (Bld) 70.6 % High 47-70 [facility] No Panel InformationOrdered By: Inderjit Gilmore on 03-18-2025 RARE [facility] 11 U/L <32 [facility] Platelet countOrdered By: Huy Gilmore on 03-18-2025 Platelets (Bld) [#/Vol] 234 10*3/uL 150-450 [facility] Potassium measurement (mass/ volume)Ordered By: Inderjit Gilmore on 03-18-2025 Potassium (Unsp spec) [Mass/Vol] 3.9 mmol/L 3.3-5.1 [facility] RBC Auto (Bld) [#/Vol]Ordere d By: Inderjit Gilmore on 03-18-2025 RBC (Bld) [#/Vol] 2.29 10*6/uL Low 4.2-5.4 [facility] Serum creatinine measurement (mass/volume)Ordered By: Inderjit Gilmore on 03-18-2025 Creatinine [Mass/Vol] 1.01 mg/dL 0.70-1.20 [facility] Serum globulin measurementOr dered By: Inderjit Gilmore on 03-18-2025 Globulin (S) [Mass/Vol] 2.3 g/dL 2.2-4.2 [facility] Serum glucose measurement (m ass/volume)Ordered By: Inderjit Gilmore on 03-18-2025 Glucose [Mass/Vol] 108 mg/dL High 70-99 [facility] Serum or plasma alanine tovar otransferase (ALT) measurementOrdered By: Inderjit Gilmore on 03-18-2025 ALT [Catalytic activity/Vol] 15 U/L <35 [facility] Serum or plasma albumin rosalina urement (mass/volume)Ordered By: Inderjit Gilmore on 03-18-2025 Albumin [Mass/Vol] 3.8 g/dL 3.4-4.8 [facility] Serum or plasma alkaline blanche sphatase measurementOrdered By: Inderjit Gilmore on 03-18-2025 ALP [Catalytic activity/Vol] 62 U/L 35-104 [facility] Serum or plasma calcium rosalina urement (mass/volume)Ordered By: Inderjit Gilmore on 03-18-2025 Calcium [Mass/Vol] 9.4 mg/dL 7.6-11.0 [facility] Serum or plasma urea nitroge n measurement (mass/volume)Ordered By: Inderjit Gilmore on 03-18-2025 Urea nitrogen [Mass/Vol] 24 mg/dL High 4-19 [facility] Sodium levelOrdered By: Marcin Gilmore on 03-18-2025 Sodium [Moles/Vol] 141 mmol/L 133-145 [facility] Total proteinOrdered By: Wallace Gilmore on 03-18-2025 Protein [Mass/Vol] 6.1 g/dL 5.9-8.4 [facility] Type AND Screenon 03-18-2025 Ab SCREEN GEL Negative Normal [facility] Comment on above: Order Comment: CMV N EG? NNumber of units to transfuse: 1Reason for Ordering Blood: AcuteAre the blood/blood products to be transfused? YIs the patient having/had surgery? hSiloh Bolden Performed By: #### B JACKIE Keene, BTS ####[facility] [address] [place], [place], [id number] ABO and Rh group Nom (Bld) PENDING Normal [facility] Comment on above: Order Comment: CMV N EG? NNumber of units to transfuse: 1Reason for Ordering Blood: AcuteAre the blood/blood products to be transfused? YIs the patient having/had surgery? Shiloh SchmittNY Performed By: #### B Jassi, JACKIE, BTS ####[facility] [address] [place], [place], [id number] White blood cell (WBC) count Ordered By: Inderjit Gilmore on 03-18-2025 WBC (Bld) [#/Vol] 8.2 10*3/uL 4.4-11.0 [facility] Absolute lymphocyte countOrd ered By: Ivan Cotto on 03-11-2025 Lymphocytes Auto (Unsp spec) [#/Vol] 1.54 10*3/uL 0.83-4.51 [facility] Automated lymphocyte count a s percentage of total leukocytesOrdered By: Ivan Cotto on 03-11-2025 Lymphocytes/100 WBC Auto (Unsp spec) 17.0 % Low 19-41 [facility] Basophil percentageOrdered B y: Ivan Cotto on 03-11-2025 Basophils/100 WBC (Bld) 1.4 % High 0-1 [facility] CBC W/Diff, Automatedon 02-21 Absolute Lymph 1.54 X10 3/uL Normal 0.83-4.51 [facility] Comment on above: Performed By: #### L 100.0100 ####[facility] [address] [place], [address] Absolute Neut 6.7 X10 3/uL Normal 2.0-7.7 [facility] Comment on above: Performed By: #### L 100.0100 ####[facility] [address] [place], [address] Basophils/100 WBC (Bld) 1.4 % High 0-1 [facility] Comment on above: Performed By: #### L 100.0100 ####[facility] [address] [place], [address] Eosinophils/100 WBC (Bld) 2.2 % Normal 0-5 [facility] Comment on above: Performed By: #### L 100.0100 ####[facility] [address] [place], [address] Erythrocyte distribution width (RBC) [Ratio] 19.7 % High 11.6-14.6 [facility] Comment on above: Performed By: #### L 100.0100 ####[facility] [address] [place], [address] Hematocrit (Bld) [Volume fraction] 25.5 % Low 37-47 [facility] Comment on above: Performed By: #### L 100.0100 ####[facility] [address] [place], [address] Hemoglobin (Bld) [Mass/Vol] 7.9 g/dL Low 12.0-15.0 [facility] Comment on above: Performed By: #### L 100.0100 ####[facility] [address] [place], [address] IG% 0.400 Normal 0.0-0.9 [facility] Comment on above: Result Comment: IG% - Immature Granulocytes (promyelocytes, myelocytes andmetamyelocytes) > 1% indicates that a LEFT SHIFT is Present. Performed By: #### L 100.0100 ####[facility] [address] [place], [address] Lymphocytes/100 WBC (Bld) 17.0 % Low 19-41 [facility] Comment on above: Performed By: #### L 100.0100 ####[facility] [address] [place], [address] MCH (RBC) [Entitic mass] 32.4 pg High 27.0-32.0 [facility] Comment on above: Performed By: #### L 100.0100 ####[facility] [address] [place], [address] MCHC (RBC) [Mass/Vol] 31.0 g/dL Low 32-36 [facility] Comment on above: Performed By: #### L 100.0100 ####[facility] [address] [place], [address] MCV (RBC) [Entitic vol] 104.5 fL High 81-99 [facility] Comment on above: Performed By: #### L 100.0100 ####[facility] [address] [place], [address] Monocytes/100 WBC (Bld) 5.0 % Normal 0-10 [place] Comment on above: Performed By: #### L 100.0100 ####[facility] [address] [place], [address] Neutrophils/100 WBC (Bld) 74.0 % High 47-70 [facility] Comment on above: Performed By: #### L 100.0100 ####[facility] [address] [place], [address] Nucleated RBC (Bld) [#/Vol] 0 10*3/uL Normal 0-5 [facility] Comment on above: Performed By: #### L 100.0100 ####[facility] [address] [place], [address] Platelet mean volume (Bld) [Entitic vol] 10.2 fL Normal 6.2-12.0 [facility] Comment on above: Performed By: #### L 100.0100 ####[facility] [address] [place], [address] Platelets (Bld) [#/Vol] 261 10*3/uL Normal 150-450 [facility] Comment on above: Performed By: #### L 100.0100 ####[facility] [address] [place], [address] RBC (Bld) [#/Vol] 2.44 10*6/uL Low 4.2-5.4 [facility] Comment on above: Performed By: #### L 100.0100 ####[facility] [address] [place], [address] RDW SD 75.9 fl High 35.1-43.9 [facility] Comment on above: Performed By: #### L 100.0100 ####[facility] [address] [place], [address] WBC (Bld) [#/Vol] 9.1 10*3/uL Normal 4.4-11.0 [facility] Comment on above: Performed By: #### L 100.0100 ####[facility] [address] [place], [address] Celiac Disease Profileon ENDOMYSIAL IGA Negative Normal Negative [facility] Comment on above: Performed By: #### L 3400.3800, L500.2500, L3410.2400, L100.0100 ####[facility] [address] [place], [address] IMMUNOGLOB A QN 180 mg/dL Normal 87-352 [facility] Comment on above: Performed By: #### L 3400.3800, L500.2500, L3410.2400, L100.0100 ####[facility] [address] [place], [address] tTG IGA <2 Normal 0-3 [facility] Comment on above: Result Comment: Nega tive 0 - 3 Weak Positive 4 - 10 Positive >10 Tissue Transglutaminase (tTG) has been identified as the endomysial antigen. Studies have demonstr- ated that endomysial IgA antibodies have over 99% specificity for gluten sensitive enteropathy. Performed By: #### L 3400.3800, L500.2500, L3410.2400, L100.0100 ####[facility] [address] [place], [address] Eosinophil percentageOrdered By: Ivanalexandra Cotto on 03-11-2025 Eosinophils/100 WBC (Bld) 2.2 % 0-5 [facility] Erythrocyte distribution wid th ratioOrdered By: Ivanalexandra Cotto on 03-11-2025 Erythrocyte distribution width (RBC) [Ratio] 19.7 % High 11.6-14.6 [facility] Erythrocyte distribution wid th standard deviationOrdered By: Ivanalexandra Cotto on 03-11-2025 Erythrocyte distribution width (RBC) [Ratio] 75.9 fl High 35.1-43.9 [facility] Hematocrit Auto (Bld) [Volum e fraction]Ordered By: Ivanalexandra Cotto on 03-11-2025 Hematocrit (Bld) [Volume fraction] 25.5 % Low 37-47 [facility] Hemoglobin measurementOrdere d By: Ivanalexandra Cotto on 03-11-2025 Hemoglobin (Bld) [Mass/Vol] 7.9 g/dL Low 12.0-15.0 [facility] Immature granulocytes/100 WB C Auto (Bld)Ordered By: Ivanalexandra Cotto on 03-11-2025 Immature granulocytes/100 WBC (Bld) 0.400 % 0.0-0.9 [facility] MCV (mean corpuscular volume ) determinationOrdered By: Ivan Cotto on 03-11-2025 MCV (RBC) [Entitic vol] 104.5 fL High 81-99 [facility] Mean corpuscular hemoglobin (MCH) determinationOrdered By: Ivanchani Cotto on 03-11-2025 MCH (RBC) [Entitic mass] 32.4 pg High 27.0-32.0 [facility] Monocyte percentageOrdered B y: Ivan Cotto on 03-11-2025 Monocytes/100 WBC (Bld) 5.0 % 0-10 [facility] Neutrophil percentageOrdered By: Ivanchani Cotto on 03-11-2025 Neutrophils/100 WBC (Bld) 74.0 % High 47-70 [facility] No Panel InformationOrdered By: Ivanalexandra Cotto on 03-11-2025 2+ [facility] Platelet countOrdered By: Ra lynnsabas Lino on 03-11-2025 Platelets (Bld) [#/Vol] 261 10*3/uL 150-450 [facility] RBC Auto (Bld) [#/Vol]Ordere d By: Ivan Lino on 03-11-2025 RBC (Bld) [#/Vol] 2.44 10*6/uL Low 4.2-5.4 [facility] Transferrinon 03-11-2025 Transferrin [Mass/Vol] 261 mg/dL Normal 192-364 [facility] Comment on above: Result Comment: Perf ormed at: CB - [facility] [place] [id number] Director: Darren Cr PhD, Phone: [phone] Performed By: #### L 3400.3800, L500.2500, L3410.2400, L100.0100 ####[facility] [address] [place], [address] White blood cell (WBC) count Ordered By: Ivan Cotto on 03-11-2025 WBC (Bld) [#/Vol] 9.1 10*3/uL 4.4-11.0 [facility] Absolute lymphocyte countOrd ered By: Ivanchani Cotto on 03-08-2025 Lymphocytes Auto (Unsp spec) [#/Vol] 1.33 10*3/uL 0.83-4.51 [facility] Anion gap in Serum or Plasma Ordered By: Ivan Cotto on 03-08-2025 Anion gap [Moles/Vol] 12 mmol/L 5-15 [facility] Automated lymphocyte count a s percentage of total leukocytesOrdered By: Ivan Cotto on 03-08-2025 Lymphocytes/100 WBC Auto (Unsp spec) 13.0 % Low 19-41 [facility] BUN/creatinine ratioOrdered By: Ivan Cotto on 03-08-2025 Urea nitrogen/Creatinine [Mass ratio] 15.7 mg/mg 10- [facility] Basic Metabolic Profile (BMP )on 03-08-2025 BUN/CRE 15.7 RATIO Normal - [facility] Comment on above: Performed By: #### L 3400.3800, L500.2500, L3410.2400, L100.0100 ####[facility] [address] [place], [address] Calcium [Mass/Vol] 9.4 mg/dL Normal 7.6-11.0 [facility] Comment on above: Performed By: #### L 3400.3800, L500.2500, L3410.2400, L100.0100 ####[facility] [address] [place], [address] Chloride [Moles/Vol] 106 mmol/L Normal 98-108 [facility] Comment on above: Performed By: #### L 3400.3800, L500.2500, L3410.2400, L100.0100 ####[facility] [address] [place], [address] CO2 [Moles/Vol] 20.5 mmol/L Low 21.0-32.0 [facility] Comment on above: Performed By: #### L 3400.3800, L500.2500, L3410.2400, L100.0100 ####[facility] [address] [place], [address] Creatinine [Mass/Vol] 1.04 mg/dL Normal 0.70-1.20 [facility] Comment on above: Performed By: #### L 3400.3800, L500.2500, L3410.2400, L100.0100 ####[facility] [address] [place], [address] GAP 12 Normal 5-15 [facility] Comment on above: Performed By: #### L 3400.3800, L500.2500, L3410.2400, L100.0100 ####[facility] [address] [place], [address] GFR/1.73 sq M.predicted among non-blacks MDRD (S/P/Bld) [Vol rate/Area] 59 mL/min/{1.73_m2} Low >60 [facility] Comment on above: Result Comment: mL/m in/1.73m2 CKD-EPI Creatinine Equation (2020) Performed By: #### L 3400.3800, L500.2500, L3410.2400, L100.0100 ####[facility] [address] [place], [address] Glucose [Mass/Vol] 98 mg/dL Normal 70-99 [facility] Comment on above: Performed By: #### L 3400.3800, L500.2500, L3410.2400, L100.0100 ####[facility] [address] [place], [address] Potassium [Moles/Vol] 4.0 mmol/L Normal 3.3-5.1 [facility] Comment on above: Performed By: #### L 3400.3800, L500.2500, L3410.2400, L100.0100 ####[facility] [address] [place], [address] Sodium [Moles/Vol] 138 mmol/L Normal 133-145 [facility] Comment on above: Performed By: #### L 3400.3800, L500.2500, L3410.2400, L100.0100 ####[facility] [address] [place], [address] Urea nitrogen [Mass/Vol] 16 mg/dL Normal 4-19 [facility] Comment on above: Performed By: #### L 3400.3800, L500.2500, L3410.2400, L100.0100 ####[facility] [address] [place], [address] Basophil percentageOrdered B y: Ivan Cotto on 03-08-2025 Basophils/100 WBC (Bld) 1.1 % High 0-1 [facility] CBC W/Diff, Automatedon 05- Anisocytosis Ql (Bld) 2+ Normal [facility] Comment on above: Performed By: #### L 3400.3800, L500.2500, L3410.2400, L100.0100 ####[facility] [address] [place], [address] Carbon dioxide, total [Moles /volume] in Central venous bloodOrdered By: Ivan Cotto on 03-08-2025 CO2 [Moles/Vol] 20.5 mmol/L Low 21.0-32.0 [facility] Chloride assayOrdered By: Ra tamiko Cotto on 03-08-2025 Chloride [Moles/Vol] 106 mmol/L 98-108 [facility] Eosinophil percentageOrdered By: Ivan Cotto on 03-08-2025 Eosinophils/100 WBC (Bld) 1.5 % 0-5 [facility] Erythrocyte distribution wid th ratioOrdered By: Ivan Cotto on 03-08-2025 Erythrocyte distribution width (RBC) [Ratio] 20.6 % High 11.6-14.6 [facility] Erythrocyte distribution wid th standard deviationOrdered By: Ivan Cotto on 03-08-2025 Erythrocyte distribution width (RBC) [Ratio] 77.1 fl High 35.1-43.9 [facility] Glomerular filtration rate ( GFR) estimation/1.73 sq m using serum, plasma, or whole bOrdered By: Ivan Cotto on 03-08-2025 GFR/1.73 sq M.predicted among non-blacks MDRD (S/P/Bld) [Vol rate/Area] 59 mL/min/{1.73_m2} Low >60 [facility] Hematocrit Auto (Bld) [Volum e fraction]Ordered By: Ivan Cotto on 03-08-2025 Hematocrit (Bld) [Volume fraction] 26.1 % Low 37-47 [facility] Hemoglobin measurementOrdere d By: Ivan Cotto on 03-08-2025 Hemoglobin (Bld) [Mass/Vol] 8.0 g/dL Low 12.0-15.0 [facility] Immature granulocytes/100 WB C Auto (Bld)Ordered By: Ivan Cotto on 03-08-2025 Immature granulocytes/100 WBC (Bld) 0.400 % 0.0-0.9 [facility] MCV (mean corpuscular volume ) determinationOrdered By: Ivan Cotto on 03-08-2025 MCV (RBC) [Entitic vol] 102.8 fL High 81-99 [facility] Mean corpuscular hemoglobin (MCH) determinationOrdered By: Ivan Cotto on 03-08-2025 MCH (RBC) [Entitic mass] 31.5 pg 27.0-32.0 [facility] Monocyte percentageOrdered B y: Ivan Cotto on 03-08-2025 Monocytes/100 WBC (Bld) 5.0 % 0-10 [facility] Neutrophil percentageOrdered By: Ivan Cotto on 03-08-2025 Neutrophils/100 WBC (Bld) 79.0 % High 47-70 [facility] No Panel InformationOrdered By: Ivan Cotto on 03-08-2025 2+ [facility] Office Visit Reporton 2024 Office Visit Report Normal [facility] Platelet countOrdered By: Ra tamiko Cotto on 03-08-2025 Platelets (Bld) [#/Vol] 227 10*3/uL 150-450 [facility] Potassium measurement (mass/ volume)Ordered By: Ivan Cotto on 03-08-2025 Potassium (Unsp spec) [Mass/Vol] 4.0 mmol/L 3.3-5.1 [facility] RBC Auto (Bld) [#/Vol]Ordere d By: Ivan Cotto on 03-08-2025 RBC (Bld) [#/Vol] 2.54 10*6/uL Low 4.2-5.4 [facility] Serum creatinine measurement (mass/volume)Ordered By: Ivan Cotto on 03-08-2025 Creatinine [Mass/Vol] 1.04 mg/dL 0.70-1.20 [facility] Serum glucose measurement (m ass/volume)Ordered By: Ivan Cotto on 03-08-2025 Glucose [Mass/Vol] 98 mg/dL 70-99 [facility] Serum or plasma IgA measurem ent (mass/volume)Ordered By: Ivan Cotto on 03-08-2025 IgA [Mass/Vol] 180 mg/dL 87-352 [facility] Serum or plasma calcium rosalina urement (mass/volume)Ordered By: Ivan Cotto on 03-08-2025 Calcium [Mass/Vol] 9.4 mg/dL 7.6-11.0 [facility] Serum or plasma urea nitroge n measurement (mass/volume)Ordered By: Ivan Cotto on 03-08-2025 Urea nitrogen [Mass/Vol] 16 mg/dL 4-19 [facility] Serum tissue transglutaminas e (tTG) IgA antibody assay (units/volume)Ordered By: Ivan Cotto on 03-08-2025 tTG IgA Qn (S) <2 U/mL 0-3 [facility] Sodium levelOrdered By: Kwame Flores on 03-08-2025 Sodium [Moles/Vol] 138 mmol/L 133-145 [facility] TransferrinOrdered By: Alem obregon Friend on 03-08-2025 Transferrin [Mass/Vol] 261 mg/dL 192-364 [facility] White blood cell (WBC) count Ordered By: Ivan Cotto on 03-08-2025 WBC (Bld) [#/Vol] 10.2 10*3/uL 4.4-11.0 [facility] .Auto Diffon 03-07-2025 Basophil, Absolute 0.1 10 3/mcL Normal 0.0-0.3 [facility] Comment on above: Performed By: #### M ORPH, ANEU, ADIFF, CBC #### [address] [address] Basophils/100 WBC (Bld) 1.3 % Normal 0.0-2.5 [facility] Comment on above: Performed By: #### M ORPH, ANEU, ADIFF, CBC #### [address] [address] Eosinophil, Absolute 0.3 10 3/mcL Normal 0.0-0.[address] [facility] Comment on above: Performed By: #### M ORPH, ANEU, ADIFF, CBC #### [address] [address] Eosinophils/100 WBC (Bld) 2.7 % Normal 0.0-6.0 [facility] Comment on above: Performed By: #### M ORPH, ANEU, ADIFF, CBC #### [address] [address] Lymphocyte, Absolute 1.8 10 3/mcL Normal 0.9-4.[address] [facility] Comment on above: Performed By: #### M ORPH, ANEU, ADIFF, CBC #### [address] [address] Lymphocytes/100 WBC (Bld) 17.4 % Low 20.0-40.0 [facility] Comment on above: Performed By: #### M ORPH, ANEU, ADIFF, CBC #### [address] [address] Monocyte, Absolute 0.6 10 3/mcL Normal 0.1-1.4 [facility] Comment on above: Performed By: #### M ORPH, ANEU, ADIFF, CBC #### [address] [address] Monocytes/100 WBC (Bld) 5.7 % Normal 2.0-13.0 [facility] Comment on above: Performed By: #### M ORPH, ANEU, ADIFF, CBC #### [address] [address] Neutrophils/100 WBC (Bld) 72.9 % Normal 50.0-75.0 [facility] Comment on above: Performed By: #### M ORPH ANEU, ADIFF, CBC #### [place] [address] .NEUABSon 03-07-2025 Neutrophil, Absolute 7.5 10 3/mcL Normal 2.3-8.[address] [facility] Comment on above: Performed By: #### M ORPH, ANEU, ADIFF, CBC #### [place] [address] CBCon 03-07-2025 Erythrocyte distribution width (RBC) [Ratio] 21.6 % High 11.5-15.5 [facility] Comment on above: Performed By: #### M ORPH ANEU, ADIFF, CBC #### [place] [address] Hematocrit (Bld) [Volume fraction] 25.0 % Low 34.0-46.0 [facility] Comment on above: Performed By: #### M ORPH, ANEU, ADIFF, CBC #### [place] [address] Hgb 8.1 G/dL Low 12.0-16.0 [facility] Comment on above: Performed By: #### M ORPH, ANEU, ADIFF, CBC #### [place] [address] MCH (RBC) [Entitic mass] 31.4 pg Normal 27.0-33.0 [facility] Comment on above: Performed By: #### M ORPH, ANEU, ADIFF, CBC #### [place] [address] MCHC 32.4 G/dL Normal 32.0-36.0 [facility] Comment on above: Performed By: #### M ORPH, ANEU, ADIFF, CBC #### [place] [address] MCV (RBC) [Entitic vol] 97.1 fL Normal 80.0-99.0 [facility] Comment on above: Performed By: #### M ORSHAKIR ANEU, ADIFF, CBC #### [address] [address] Platelet 202 10 3/mcL Normal 150-450 [facility] Comment on above: Performed By: #### M ORSHAKIR ANEU, ADIFF, CBC #### [address] [address] Platelet mean volume (Bld) [Entitic vol] 8.5 fL Normal 6.6-10.5 [facility] Comment on above: Performed By: #### M ORSHAKIR ANEU, ADIFF, CBC #### [address] [address] RBC 2.57 10 6/mcL Low 4.10-5.30 [facility] Comment on above: Performed By: #### M ORSHAKIR ANEU, ADIFF, CBC #### [address] [address] WBC 10.3 10 3/mcL Normal 4.5-10.8 [facility] Comment on above: Performed By: #### M ORSHAKIR ANEU, ADIFF, CBC #### [address] [address] Curry 03-07-2025 Ferritin [Mass/Vol] 196.0 ng/mL Normal 8.0-252.0 [facility] Comment on above: Performed By: #### M ORSHAKIR ANEU, ADIFF, CBC #### [address] [address] FESon 03-07-2025 Iron [Mass/Vol] 52 ug/dL Normal 50-170 [facility] Comment on above: Performed By: #### M ORSHAKIR ANEU, ADIFF, CBC #### [address] [address] Iron Sat 16 % Normal [facility] Comment on above: Performed By: #### M ORPH ANEU, ADIFF, CBC #### [place] [address] [place], [place] [address] TIBC 316 mcg/dL Normal 250-450 [facility] Comment on above: Performed By: #### M KELIN CARMICHAEL ADIFF, CBC #### [place] [address] [place], [place] [address] LABORATORYOrdered By: SYSTEM SYSTEM on 03-07-2025 Basophils [...] Profile (BMP )on 03-05-2025 BUN Normal 4-19 [facility] Comment on above: Result Comment: Canc elled via OM: Order cancelled - Patient discharged Performed By: #### L 100.0100, L500.2500 ####[facility] [address] [place], [address] BUN/CRE Normal 10-20 [facility] Comment on above: Result Comment: Canc elled via OM: Order cancelled - Patient discharged Performed By: #### L 100.0100, L500.2500 ####[facility] [address] [place], [address] Calcium Normal 7.6-11.0 [facility] Comment on above: Result Comment: Canc elled via OM: Order cancelled - Patient discharged Performed By: #### L 100.0100, L500.2500 ####[facility] [address] [place], [address] CL Normal 98-108 [facility] Comment on above: Result Comment: Canc elled via OM: Order cancelled - Patient discharged Performed By: #### L 100.0100, L500.2500 ####[facility] [address] [place], [address] CO2 Normal 21.0-32.0 [facility] Comment on above: Result Comment: Canc elled via OM: Order cancelled - Patient discharged Performed By: #### L 100.0100, L500.2500 ####[facility] [address] [place], [address] CREAT,SERUM Normal 0.70-1.20 [facility] Comment on above: Result Comment: Canc elled via OM: Order cancelled - Patient discharged Performed By: #### L 100.0100, L500.2500 ####[facility] [address] [place], [address] eGFR Normal >60 [facility] Comment on above: Result Comment: Canc elled via OM: Order cancelled - Patient discharged Performed By: #### L 100.0100, L500.2500 ####[facility] [address] [place], [address] GAP Normal 5-15 [facility] Comment on above: Result Comment: Canc elled via OM: Order cancelled - Patient discharged Performed By: #### L 100.0100, L500.2500 ####[facility] [address] [place], [address] GLU Normal 70-99 [facility] Comment on above: Result Comment: Canc elled via OM: Order cancelled - Patient discharged Performed By: #### L 100.0100, L500.2500 ####[facility] [address] [place], [address] Potassium Normal 3.3-5.1 [facility] Comment on above: Result Comment: Canc elled via OM: Order cancelled - Patient discharged Performed By: #### L 100.0100, L500.2500 ####[facility] [address], [address] Basic Metabolic Profile (BMP) Normal 133-145 [facility] Comment on above: Result Comment: Canc elled via OM: Order cancelled - Patient discharged Performed By: #### L 100.0100, L500.2500 ####[facility] [address] [place], [address] CBC W/Diff, Automatedon 05-1 Absolute Neut Normal 2.0-7.7 [facility] Comment on above: Result Comment: Canc elled via OM: Order cancelled - Patient discharged Performed By: #### L 100.0100, L500.2500 ####[facility] [address] [place], [address] HCT Normal 37-47 [facility] Comment on above: Result Comment: Canc elled via OM: Order cancelled - Patient discharged Performed By: #### L 100.0100, L500.2500 ####[facility] [address] [place], [address] HGB Normal 12.0-15.0 [facility] Comment on above: Result Comment: Canc elled via OM: Order cancelled - Patient discharged Performed By: #### L 100.0100, L500.2500 ####[facility] [address] [place], [address] MCH Normal 27.0-32.0 [facility] Comment on above: Result Comment: Canc elled via OM: Order cancelled - Patient discharged Performed By: #### L 100.0100, L500.2500 ####[facility] [address] [place], [address] MCHC Normal 32-36 [facility] Comment on above: Result Comment: Canc elled via OM: Order cancelled - Patient discharged Performed By: #### L 100.0100, L500.2500 ####[facility] [address] [place], [address] MCV Normal 81-99 [facility] Comment on above: Result Comment: Canc elled via OM: Order cancelled - Patient discharged Performed By: #### L 100.0100, L500.2500 ####[facility] [address] [place], [address] NEUT% Normal 47-70 [facility] Comment on above: Result Comment: Canc elled via OM: Order cancelled - Patient discharged Performed By: #### L 100.0100, L500.2500 ####[facility] [address] [place], [address] PLT Normal 150-450 [facility] Comment on above: Result Comment: Canc elled via OM: Order cancelled - Patient discharged Performed By: #### L 100.0100, L500.2500 ####[facility] [address] [place], [address] RBC Normal 4.2-5.4 [facility] Comment on above: Result Comment: Canc elled via OM: Order cancelled - Patient discharged Performed By: #### L 100.0100, L500.2500 ####[facility] [address] [place], [address] RDW CV Normal 11.6-14.6 [facility] Comment on above: Result Comment: Canc elled via OM: Order cancelled - Patient discharged Performed By: #### L 100.0100, L500.2500 ####[facility] [address] [place], [address] RDW SD Normal 35.1-43.9 [facility] Comment on above: Result Comment: Canc elled via OM: Order cancelled - Patient discharged Performed By: #### L 100.0100, L500.2500 ####[facility] [address] [place], [address] WBC Normal 4.4-11.0 [facility] Comment on above: Result Comment: Canc elled via OM: Order cancelled - Patient discharged Performed By: #### L 100.0100, L500.2500 ####[facility] [address] [place], [address] Celiac AB,Comprehensiveon ANTIGLIADIN IGA Normal [facility] Comment on above: Result Comment: PT D ISCHARGED BEFORE DRAWING. NO TUBES TO ADD ON TO Performed By: #### L 3410.2350, L503.6550, L503.6030, L100.9950 ####[facility] [address] [place], [address] ANTIGLIADIN IGG Normal [facility] Comment on above: Result Comment: PT D ISCHARGED BEFORE DRAWING. NO TUBES TO ADD ON TO Performed By: #### L 3410.2350, L503.6550, L503.6030, L100.9950 ####[facility] [address] [place], [address] IMMUNOGLOB A QN Normal [facility] Comment on above: Result Comment: PT D ISCHARGED BEFORE DRAWING. NO TUBES TO ADD ON TO Performed By: #### L 3410.2350, L503.6550, L503.6030, L100.9950 ####[facility] [address] [place], [address] tTG IGA Normal [facility] Comment on above: Result Comment: PT D ISCHARGED BEFORE DRAWING. NO TUBES TO ADD ON TO Performed By: #### L 3410.2350, L503.6550, L503.6030, L100.9950 ####[facility] [address] [place], [address] Absolute lymphocyte countOrd ered By: Clyde Long on 03-04-2025 Lymphocytes Auto (Unsp spec) [#/Vol] 1.27 10*3/uL 0.83-4.51 [facility] Anion gap in Serum or Plasma Ordered By: Clyde Long on 03-04-2025 Anion gap [Moles/Vol] 11 mmol/L 5-15 [facility] Automated lymphocyte count a s percentage of total leukocytesOrdered By: Clyde Long on 03-04-2025 Lymphocytes/100 WBC Auto (Unsp spec) 13.0 % Low 19-41 [facility] BUN/creatinine ratioOrdered By: Clyde Long on 03-04-2025 Urea nitrogen/Creatinine [Mass ratio] 15.9 mg/mg 10- [facility] Basic Metabolic Profile (BMP )on 03-04-2025 BUN/CRE 15.9 RATIO Normal - [facility] Comment on above: Performed By: #### L 100.0100, L500.2500 ####[facility] [address] [place], [address] Calcium [Mass/Vol] 9.0 mg/dL Normal 7.6-11.0 [facility] Comment on above: Performed By: #### L 100.0100, L500.2500 ####[facility] [address] [place], [address] Chloride [Moles/Vol] 111 mmol/L High 98-108 [facility] Comment on above: Performed By: #### L 100.0100, L500.2500 ####[facility] [address] [place], [address] CO2 [Moles/Vol] 19.3 mmol/L Low 21.0-32.0 [facility] Comment on above: Performed By: #### L 100.0100, L500.2500 ####[facility] [address] [place], [address] Creatinine [Mass/Vol] 1.00 mg/dL Normal 0.70-1.20 [facility] Comment on above: Performed By: #### L 100.0100, L500.2500 ####[facility] [address] [place], [address] ECRCL 53.81 ml/min Normal 50-250 [facility] Comment on above: Performed By: #### L 100.0100, L500.2500 ####[facility] [address], [address] GAP 11 Normal 5-15 [facility] Comment on above: Performed By: #### L 100.0100, L500.2500 ####[facility] [address] [place], [address] GFR/1.73 sq M.predicted among non-blacks MDRD (S/P/Bld) [Vol rate/Area] 62 mL/min/{1.73_m2} Normal >60 [facility] Comment on above: Result Comment: mL/m in/1.73m2 CKD-EPI Creatinine Equation (2020) Performed By: #### L 100.0100, L500.2500 ####[facility] [address] [place], [address] Glucose [Mass/Vol] 92 mg/dL Normal 70-99 [facility] Comment on above: Performed By: #### L 100.0100, L500.2500 ####[facility] [address] [place], [address] Potassium [Moles/Vol] 3.9 mmol/L Normal 3.3-5.1 [facility] Comment on above: Performed By: #### L 100.0100, L500.2500 ####[facility] [address] [place], [address] Sodium [Moles/Vol] 142 mmol/L Normal 133-145 [facility] Comment on above: Performed By: #### L 100.0100, L500.2500 ####[facility] [address] [place], [address] Urea nitrogen [Mass/Vol] 16 mg/dL Normal 4-19 [facility] Comment on above: Performed By: #### L 100.0100, L500.2500 ####[facility] [address] [place], [address] Basophil percentageOrdered B y: Clyde Long on 03-04-2025 Basophils/100 WBC (Bld) 0.8 % 0-1 [facility] Blood manual differential co mment interpretation (narrative result)Ordered By: Clyde Long on 03-04-2025 Manual differential comment Bassam (Bld) [Interp] SCANNED [facility] CBC W/Diff, Automatedon 02-21 OVALOCYTE 1+ Normal [facility] Comment on above: Performed By: #### L 100.0100, L500.2500 ####[facility] [address] [place], [address] Anisocytosis Ql (Bld) 3+ Normal [facility] Comment on above: Performed By: #### L 100.0100, L500.2500 ####[facility] [address] [place], [address] PLT EST ADEQUATE Normal ADEQ [facility] Comment on above: Performed By: #### L 100.0100, L500.2500 ####[facility] [address] [place], [address] SMEAR COMMENT SCANNED Normal [facility] Comment on above: Performed By: #### L 100.0100, L500.2500 ####[facility] [address] [place], [address] Carbon dioxide, total [Moles /volume] in Central venous bloodOrdered By: Clyde Long on 03-04-2025 CO2 [Moles/Vol] 19.3 mmol/L Low 21.0-32.0 [facility] Chloride assayOrdered By: Julio César Long on 03-04-2025 Chloride [Moles/Vol] 111 mmol/L High 98-108 [facility] Electrocardiogram reportOrde red By: Deondre Leavitt on 03-04-2025 EKG study [facility] Work Phone: [phone] Eosinophil percentageOrdered By: Clyde Long on 03-04-2025 Eosinophils/100 WBC (Bld) 2.2 % 0-5 [facility] Erythrocyte distribution wid th ratioOrdered By: Clyde Long on 03-04-2025 Erythrocyte distribution width (RBC) [Ratio] 22.7 % High 11.6-14.6 [facility] Erythrocyte distribution wid th standard deviationOrdered By: Clyde Long on 03-04-2025 Erythrocyte distribution width (RBC) [Ratio] 80.7 fl High 35.1-43.9 [facility] Ferritinon 03-04-2025 Ferritin [Mass/Vol] 92 ng/mL Normal 22-378 [facility] Comment on above: Performed By: #### L 3410.2350, L503.6550, L503.6030, L100.9950 ####[facility] [address] [place], [place], [phone] Glomerular filtration rate ( GFR) estimation/1.73 sq m using serum, plasma, or whole bOrdered By: Clyde Long on 03-04-2025 GFR/1.73 sq M.predicted among non-blacks MDRD (S/P/Bld) [Vol rate/Area] 62 mL/min/{1.73_m2} >60 [facility] HH, Hemoglobin AND Hematocri ton 03-04-2025 Hematocrit (Bld) [Volume fraction] 27.2 % Low 37-47 [facility] Comment on above: Performed By: #### L 100.0600 ####[facility] [address] [place], [address](631) Hemoglobin (Bld) [Mass/Vol] 8.4 g/dL Low 12.0-15.0 [facility] Comment on above: Performed By: #### L 100.0600 ####[facility] [address] [place], [phone] Hematocrit Auto (Bld) [Volum e fraction]Ordered By: Clyde Long on 03-04-2025 Hematocrit (Bld) [Volume fraction] 27.2 % Low 37-47 [facility] Hemoglobin measurementOrdere d By: Clyde Long on 03-04-2025 Hemoglobin (Bld) [Mass/Vol] 8.4 g/dL Low 12.0-15.0 [facility] Immature granulocytes/100 WB C Auto (Bld)Ordered By: Clyde Long on 03-04-2025 Immature granulocytes/100 WBC (Bld) 0.500 % 0.0-0.9 [facility] Iron measurement (mass/mass) Ordered By: Ivan Cotto on 03-04-2025 Iron (Unsp spec) [Mass/Mass] 33 ug/dL Low 50-170 [facility] Iron+Iron Binding Capacityon 03-04-2025 Iron [Mass/Vol] 33 ug/dL Low 50-170 [facility] Comment on above: Performed By: #### L 3410.2350, L503.6550, L503.6030, L100.9950 ####[facility] [address] [place], [address] IRON SATURATION 11.0 Low 13-59 [facility] Comment on above: Performed By: #### L 3410.2350, L503.6550, L503.6030, L100.9950 ####[facility] [address] [place], [address] TIBC 290 ug/dL Normal 250-450 [facility] Comment on above: Performed By: #### L 3410.2350, L503.6550, L503.6030, L100.9950 ####[facility] [address] [place], [address] UIBC 257 ug/dL Normal 228-428 [facility] Comment on above: Performed By: #### L 3410.2350, L503.6550, L503.6030, L100.9950 ####[facility] [address] [place], [address] MCV (mean corpuscular volume ) determinationOrdered By: Clyde Long on 03-04-2025 MCV (RBC) [Entitic vol] 99.6 fL High 81-99 [facility] MR/CON.PCM.GIon 03-04-2025 MR/CON.PCM.GI Normal [facility] Mean corpuscular hemoglobin (MCH) determinationOrdered By: Clyde Long on 03-04-2025 MCH (RBC) [Entitic mass] 31.0 pg 27.0-32.0 [facility] Monocyte percentageOrdered B y: Clyde Long on 03-04-2025 Monocytes/100 WBC (Bld) 4.7 % 0-10 [facility] Neutrophil percentageOrdered By: Clyde Long on 03-04-2025 Neutrophils/100 WBC (Bld) 78.8 % High 47-70 [facility] No Panel InformationOrdered By: Clyde Long on 03-04-2025 3+ [facility] No Panel InformationOrdered By: Ivan Cotto on 03-04-2025 257 ug/dL 228-428 [facility] Ovalocyte detectionOrdered B y: Clyde Long on 03-04-2025 Ovalocytes LM Ql (Bld) 1+ [facility] Platelet countOrdered By: Julio César Long on 03-04-2025 Platelets (Bld) [#/Vol] 154 10*3/uL 150-450 [facility] Platelet estimateOrdered By: Clyde Long on 03-04-2025 Platelets LM Ql (Bld) ADEQUATE ADEQ [facility] Potassium measurement (mass/ volume)Ordered By: Clyde Long on 03-04-2025 Potassium (Unsp spec) [Mass/Vol] 3.9 mmol/L 3.3-5.1 [facility] RBC Auto (Bld) [#/Vol]Ordere d By: Clyde Long on 03-04-2025 RBC (Bld) [#/Vol] 2.45 10*6/uL Low 4.2-5.4 [facility] Retic Panelon 03-04-2025 IM RET FRACTION 30.70 High 3.00-15.90 [facility] Comment on above: Performed By: #### L 3410.2350, L503.6550, L503.6030, L100.9950 ####[facility] [address] [place], [address] RET-HE 30.4 pg Normal 30-35 [facility] Comment on above: Performed By: #### L 3410.2350, L503.6550, L503.6030, L100.9950 ####[facility] [address] [place], [address] Retic Count 9.26 High 0.5-1.5 [facility] Comment on above: Performed By: #### L 3410.2350, L503.6550, L503.6030, L100.9950 ####[facility] [address] [place], [address] Reticulocyte hemoglobin equi valent (RET-He) measurementOrdered By: Ivan Cotto on 03-04-2025 Hemoglobin (Reticulocytes) [Entitic mass] 30.4 pg 30-35 [facility] Reticulocytes Auto (Bld) [#/ Vol]Ordered By: Ivan Cotto on 03-04-2025 Reticulocytes/100 RBC (Bld) 9.26 % High 0.5-1.5 [facility] Serum creatinine measurement (mass/volume)Ordered By: Clyde Long on 03-04-2025 Creatinine [Mass/Vol] 1.00 mg/dL 0.70-1.20 [facility] Serum glucose measurement (m ass/volume)Ordered By: Clyde Long on 03-04-2025 Glucose [Mass/Vol] 92 mg/dL 70-99 [facility] Serum or plasma calcium rosalina urement (mass/volume)Ordered By: Clyde Long on 03-04-2025 Calcium [Mass/Vol] 9.0 mg/dL 7.6-11.0 [facility] Serum or plasma ferritin peyton surement (mass/volume)Ordered By: Ivan Cotto on 03-04-2025 Ferritin [Mass/Vol] 92 ng/mL 22-378 [facility] Serum or plasma iron saturat ion measurement (mass fraction)Ordered By: Ivan Cotto on 03-04-2025 Iron saturation [Mass fraction] 11.0 % Low 13-59 [facility] Serum or plasma urea nitroge n measurement (mass/volume)Ordered By: Clyde Long on 03-04-2025 Urea nitrogen [Mass/Vol] 16 mg/dL 4-19 [facility] Sodium levelOrdered By: Clyde Long on 03-04-2025 Sodium [Moles/Vol] 142 mmol/L 133-145 [facility] White blood cell (WBC) count Ordered By: Clyde Long on 03-04-2025 WBC (Bld) [#/Vol] 9.8 10*3/uL 4.4-11.0 [facility] 12 Lead EKGon 03-03-2025 12 Lead EKG Normal [facility] Absolute lymphocyte countOrd ered By: Swati Huff on 03-03-2025 Lymphocytes Auto (Unsp spec) [#/Vol] 2.19 10*3/uL 0.83-4.51 [facility] Absolute neutrophil countOrd ered By: Swati Huff on 03-03-2025 Neutrophils (Bld) [#/Vol] 6.9 10*3/uL 2.0-7.7 [facility] Activated partial thrombopla stin time (aPTT) in platelet poor plasma by coagulation aOrdered By: Swati Huff on 03-03-2025 aPTT Coag (PPP) [Time] 25.9 s 24.1-36.2 [facility] Anion gap in Serum or Plasma Ordered By: Swati Huff on 03-03-2025 Anion gap [Moles/Vol] 12 mmol/L 5-15 [facility] Assessment of wrist artery p atency prior to arterial punctureOrdered By: Swati Huff on 03-03-2025 Arterial patency Wrist artery --pre arterial puncture Positive [facility] Automated lymphocyte count a s percentage of total leukocytesOrdered By: Swati Huff on 03-03-2025 Lymphocytes/100 WBC Auto (Unsp spec) 22.1 % 19-41 [facility] BRCon 03-03-2025 Normal [facility] Comment on above: Result Comment: [id number] ON TRANSFUSED 03/03/25 0533 Performed By: #### B TS, BRC, M100.7900 ####[facility] [address], [address] Result Comment: [id number] ON READY Performed By: #### B ####[facility] [address] [place], [address] BUN/creatinine ratioOrdered By: Swati Huff on 03-03-2025 Urea nitrogen/Creatinine [Mass ratio] 21.0 mg/mg High - [facility] Basic Metabolic Profile (BMP )on 03-03-2025 BUN/CRE 21.0 RATIO High 08-12 [facility] Comment on above: Performed By: #### L 501.5200, L501.4021, L501.2450, L500.3400, L100.0100, L500.2500, L503.7505 ####[facility] [address] [place], [address] Calcium [Mass/Vol] 9.0 mg/dL Normal 7.6-11.0 [facility] Comment on above: Performed By: #### L 501.5200, L501.4021, L501.2450, L500.3400, L100.0100, L500.2500, L503.7505 ####[facility] [address] [place], [address] Chloride [Moles/Vol] 108 mmol/L Normal 98-108 [facility] Comment on above: Performed By: #### L 501.5200, L501.4021, L501.2450, L500.3400, L100.0100, L500.2500, L503.7505 ####[facility] [address] [place], [address] CO2 [Moles/Vol] 21.3 mmol/L Normal 21.0-32.0 [facility] Comment on above: Performed By: #### L 501.5200, L501.4021, L501.2450, L500.3400, L100.0100, L500.2500, L503.7505 ####[facility] [address] [place], [address] Creatinine [Mass/Vol] 1.25 mg/dL High 0.70-1.20 [facility] Comment on above: Performed By: #### L 501.5200, L501.4021, L501.2450, L500.3400, L100.0100, L500.2500, L503.7505 ####[facility] [address] [place], [address](795) ECRCL 46.71 ml/min Low 50-250 [facility] Comment on above: Performed By: #### L 501.5200, L501.4021, L501.2450, L500.3400, L100.0100, L500.2500, L503.7505 ####[facility] [address] [place], [place], [id number](373) GAP 12 Normal 5-15 [facility] Comment on above: Performed By: #### L 501.5200, L501.4021, L501.2450, L500.3400, L100.0100, L500.2500, L503.7505 ####[facility] [address] [place], [place], [id number](336) GFR/1.73 sq M.predicted among non-blacks MDRD (S/P/Bld) [Vol rate/Area] 48 mL/min/{1.73_m2} Low >60 [facility] Comment on above: Result Comment: mL/m in/1.73m2 CKD-EPI Creatinine Equation (2020) Performed By: #### L 501.5200, L501.4021, L501.2450, L500.3400, L100.0100, L500.2500, L503.7505 ####[facility] [address] [place], [address] Glucose [Mass/Vol] 114 mg/dL High 70-99 [facility] Comment on above: Performed By: #### L 501.5200, L501.4021, L501.2450, L500.3400, L100.0100, L500.2500, L503.7505 ####[facility] [address] [place], [address] Potassium [Moles/Vol] 3.9 mmol/L Normal 3.3-5.1 [facility] Comment on above: Performed By: #### L 501.5200, L501.4021, L501.2450, L500.3400, L100.0100, L500.2500, L503.7505 ####[facility] [address] [place], [address] Sodium [Moles/Vol] 141 mmol/L Normal 133-145 [facility] Comment on above: Performed By: #### L 501.5200, L501.4021, L501.2450, L500.3400, L100.0100, L500.2500, L503.7505 ####[facility] [address] [place], [address] Urea nitrogen [Mass/Vol] 26 mg/dL High 4-19 [facility] Comment on above: Performed By: #### L 501.5200, L501.4021, L501.2450, L500.3400, L100.0100, L500.2500, L503.7505 ####[facility] [address] [place], [address] BUN Normal 4-19 [facility] Comment on above: Result Comment: MOVE D TO DIFFERENT REQ- SEE C62 Performed By: #### L 500.2500 ####[facility] [address] [place], [address] BUN/CRE Normal 10-20 [facility] Comment on above: Result Comment: MOVE D TO DIFFERENT REQ- SEE C62 Performed By: #### L 500.2500 ####[facility] [address] [place], [address] Calcium Normal 7.6-11.0 [facility] Comment on above: Result Comment: MOVE D TO DIFFERENT REQ- SEE C62 Performed By: #### L 500.2500 ####[facility] [address] [place], [address] CL Normal 98-108 [facility] Comment on above: Result Comment: MOVE D TO DIFFERENT REQ- SEE C62 Performed By: #### L 500.2500 ####[facility] [address] [place], [address] CO2 Normal 21.0-32.0 [facility] Comment on above: Result Comment: MOVE D TO DIFFERENT REQ- SEE C62 Performed By: #### L 500.2500 ####[facility] [address] [place], [address] CREAT,SERUM Normal 0.70-1.20 [facility] Comment on above: Result Comment: MOVE D TO DIFFERENT REQ- SEE C62 Performed By: #### L 500.2500 ####[facility] [address] [place], [address] eGFR Normal >60 [facility] Comment on above: Result Comment: MOVE D TO DIFFERENT REQ- SEE C62 Performed By: #### L 500.2500 ####[facility] [address] [place], [address] GAP Normal 5-15 [facility] Comment on above: Result Comment: MOVE D TO DIFFERENT REQ- SEE C62 Performed By: #### L 500.2500 ####[facility] [address] [place], [address] GLU Normal 70-99 [facility] Comment on above: Result Comment: MOVE D TO DIFFERENT REQ- SEE C62 Performed By: #### L 500.2500 ####[facility] [address] [place], [address] Potassium Normal 3.3-5.1 [facility] Comment on above: Result Comment: MOVE D TO DIFFERENT REQ- SEE C62 Performed By: #### L 500.2500 ####[facility] [address] [place], [address] Basic Metabolic Profile (BMP) Normal 133-145 [facility] Comment on above: Result Comment: MOVE D TO DIFFERENT REQ- SEE C62 Performed By: #### L 500.2500 ####[facility] [address] [place], [address] Basophil percentageOrdered B y: Swati Huff on 03-03-2025 Basophils/100 WBC (Bld) 0.5 % 0-1 [facility] Bilirubin directOrdered By: Swati Huff on 03-03-2025 Bilirubin.direct [Mass/Vol] 0.13 mg/dL 0.00-0.30 [facility] Bilirubin, totalOrdered By: Swati Huff on 03-03-2025 Bilirubin [Mass/Vol] 0.26 mg/dL 0.00-1.30 [facility] Positive Normal [facility] Comment on above: Performed By: #### L 9000.0800 ####[facility] [address] [place], [address] Base excess Calc (Bld) [Moles/Vol] -6 mmol/L Low -2 to +2 [facility] Comment on above: Performed By: #### L 9000.0800 ####[facility] [address] [place], [address] Blood Gas Type ART Normal [facility] Comment on above: Performed By: #### L 8999.0800 ####[facility] [address] [place], [address] CO2 [Moles/Vol] 19 mmol/L Normal [facility] Comment on above: Performed By: #### L 8999.0800 ####[facility] [address] [place], [address] HCO3 (Bld) [Moles/Vol] 18.0 mmol/L Low 22-26 [facility] Comment on above: Performed By: #### L 0.0800 ####[facility] [address] [place], [address] Mode Not entered [facility] Comment on above: Performed By: #### L 0.0800 ####[facility] [address] [place], [address] O2 Delivery Dev Not entered [facility] Comment on above: Performed By: #### L 0.0800 ####[facility] [address] [place], [address] pCO2 24.3 mmHg Low 35-45 [facility] Comment on above: Performed By: #### L 9000.0800 ####[facility] [address] [place], [address] pH (Bld) 7.48 [pH] High 7.35-7.45 [facility] Comment on above: Performed By: #### L 9000.0800 ####[facility] [address] [place], [address] PO2 34 mmHG Invalid Interpretation Code 75-100 [facility] Comment on above: Performed By: #### L 0.0800 ####[facility] [address] [place], [address] Read Back By Yes Normal [facility] Comment on above: Performed By: #### L 9000.0800 ####[facility] [address] [place], [address] SITE R Radial Normal [facility] Comment on above: Performed By: #### L 9000.0800 ####[facility] [address] [place], [address] SO2 71 Low 95-99 [facility] Comment on above: Performed By: #### L 9000.0800 ####[facility] [address] [place], [address] Blood base excess determinat ionOrdered By: Swati Huff on 03-03-2025 Base excess Calc (BldV) [Moles/Vol] -6 mmol/L Low -2-2 [facility] Blood bicarbonate measuremen tOrdered By: Swati Huff on 03-03-2025 HCO3 (Bld) [Moles/Vol] 18.0 mmol/L Low 22-26 [facility] CBC W/Diff, Automatedon 05- Anisocytosis Ql (Bld) 1+ Normal [facility] Comment on above: Performed By: #### L 501.5200, L501.4021, L501.2450, L500.3400, L100.0100, L500.2500, L503.7505 ####[facility] [address] [place], [address] Carbon dioxide, total [Moles /volume] in Central venous bloodOrdered By: Swati Huff on 03-03-2025 CO2 [Moles/Vol] 21.3 mmol/L 21.0-32.0 [facility] Chest 1 View (Portable)on Chest 1 View (Portable) Normal [facility] Chloride assayOrdered By: Manuel Huff on 03-03-2025 Chloride [Moles/Vol] 108 mmol/L 98-108 [facility] D-Dimer Quantitative (DVT/PE )on 03-03-2025 D-DIMER QUANT 0.58 FEU/ug/m Invalid Interpretation Code 0.27-0.49 [facility] Comment on above: Result Comment: D-Di ji ELEVATED (>0.49): Additional studies and clinicalassessments are indicated to conclude diagnosis of:Deep Vein Thrombosis (DVT) or Pulmonary Embolism (PE)CRITICAL VALUE CALLED TO [id number]/11/25 0350 Jhonny Rogers.RESULTS READ BACK BY SAME. Performed By: #### L 300.8000, L300.4310, L300.3900 ####[facility] [address] [place], [address] Emergency Department Summary on 03-03-2025 Emergency Department Summary Normal [facility] Eosinophil percentageOrdered By: Swati Huff on 03-03-2025 Eosinophils/100 WBC (Bld) 2.5 % 0-5 [facility] Erythrocyte distribution wid th ratioOrdered By: Swati [facility] on 03-03-2025 Erythrocyte distribution width (RBC) [Ratio] 18.6 % High 11.6-14.6 [facility] Erythrocyte distribution wid th standard deviationOrdered By: Swatiloan Huff on 03-03-2025 Erythrocyte distribution width (RBC) [Ratio] 70.3 fl High 35.1-43.9 [facility] Glomerular filtration rate ( GFR) estimation/1.73 sq m using serum, plasma, or whole bOrdered By: Swati Huff on 03-03-2025 GFR/1.73 sq M.predicted among non-blacks MDRD (S/P/Bld) [Vol rate/Area] 48 mL/min/{1.73_m2} Low >60 [facility] Comment on above: mL/min/1.73m2 CKD-EP I Creatinine Equation (2020) H AND P Exam - Hospitaliston 03-03-2025 H&P Exam - Hospitalist Normal [facility] HH, Hemoglobin AND Hematocri ton 03-03-2025 Hematocrit (Bld) [Volume fraction] 27.0 % Low 37-47 [facility] Comment on above: Performed By: #### L 100.0600 ####[facility] [address] [place], [address] Hemoglobin (Bld) [Mass/Vol] 8.4 g/dL Low 12.0-15.0 [facility] Comment on above: Performed By: #### L 100.0600 ####[facility] [address] [place], [address] Hematocrit (Bld) [Volume fraction] 26.2 % Low 37-[address] [place] [address] Comment on above: Performed By: #### L 100.0600 ####[facility] [address] [place], [address] Hemoglobin (Bld) [Mass/Vol] 8.4 g/dL Low 12.0-15.0 [facility] Comment on above: Performed By: #### L 100.0600 ####[facility] [address] [place], [address] Hematocrit (Bld) [Volume fraction] 26.4 % Low [address] [place] [address] Comment on above: Performed By: #### L 100.0600 ####[facility] [address] [place], [address] Hemoglobin (Bld) [Mass/Vol] 8.3 g/dL Low 12.0-15.0 [facility] Comment on above: Performed By: #### L 100.0600 ####[facility] [address] [place], [address] Hematocrit Auto (Bld) [Volum e fraction]Ordered By: Swati Huff on 03-03-2025 Hematocrit (Bld) [Volume fraction] 20.4 % Low [address] [place] [address] Hemoglobin measurementOrdere d By: Swati Huff on 03-03-2025 Hemoglobin (Bld) [Mass/Vol] 6.2 g/dL Low 12.0-15.0 [facility] Immature granulocytes/100 WB C Auto (Bld)Ordered By: Swati Huff on 03-03-2025 Immature granulocytes/100 WBC (Bld) 0.500 % 0.0-0.9 [facility] Comment on above: IG% - Immature Granu locytes (promyelocytes, myelocytes and metamyelocytes) > 1% indicates that a LEFT SHIFT is Present. International normalized rat io (INR) calculationOrdered By: Swati Huff on 03-03-2025 INR Coag (Bld) [Relative time] 1.0 {INR} [facility] L499.0042on 03-03-2025 Trop T High Sen 21 ng/L High <=14 [facility] Comment on above: Performed By: #### L 499.0042 ####[facility] [address] [place], [address] L499.0043on 03-03-2025 Trop T High Sen 19 ng/L High <=14 [facility] Comment on above: Performed By: #### L 499.0043 ####[facility] [address] [place], [address] L501.4021on 03-03-2025 Trop T High Sen 21 ng/L High <=14 [facility] Comment on above: Performed By: #### L 501.5200, L501.4021, L501.2450, L500.3400, L100.0100, L500.2500, L503.7505 ####[facility] [address] [place], [address] L503.7505on 03-03-2025 Natriuretic peptide B (Bld) [Mass/Vol] 531 pg/mL Normal <=900 [facility] Comment on above: Result Comment: Hear t Failure Unlikely: < 300 pg/mLHeart Failure Likely< 50 Years: > 450 pg/mL50-75 Years: > 900 pg/mL>75 Years: > 1800 pg/mL Performed By: #### L 501.5200, L501.4021, L501.2450, L500.3400, L100.0100, L500.2500, L503.7505 ####[facility] [address] [place], [place], [address] Laboratory - Chemistry and C hemistry - challengeOrdered By: Swati Huff on 03-03-2025 AST [Catalytic activity/Vol] 21 U/L <32 [facility] Laboratory - Hematology and Cell countsOrdered By: Swati Huff on 03-03-2025 Anisocytosis Ql (Bld) 1+ [facility] Lipaseon 03-03-2025 Lipase [Catalytic activity/Vol] 52 U/L Normal 13-75 [facility] Comment on above: Result Comment: Plewarren white note:LIPASE revised reference range effective 23.New Lipase methodology. Expected to produce lower valuesthan the previous assay method.NEW Reference Range: 13 - 75 U/L Performed By: #### L 501.5200, L501.4021, L501.2450, L500.3400, L100.0100, L500.2500, L503.7505 ####[facility] [address] [place], [address] Lipase measurementOrdered By : Swati Huff on 03-03-2025 Lipase [Catalytic activity/Vol] 52 U/L 13-75 [facility] Comment on above: Please note:LIPASE r evised reference range effective 23. New Lipase methodology. Expected to produce lower values than the previous assay method. NEW Reference Range: 13 - 75 U/L Liver Profileon 03-03-2025 Albumin [Mass/Vol] 3.6 g/dL Normal 3.4-4.8 [facility] Comment on above: Performed By: #### L 501.5200, L501.4021, L501.2450, L500.3400, L100.0100, L500.2500, L503.7505 ####[facility] [address] [place], [place], [address] ALK PHOS 58 U/L Normal 35-104 [facility] Comment on above: Performed By: #### L 501.5200, L501.4021, L501.2450, L500.3400, L100.0100, L500.2500, L503.7505 ####[facility] [address] [place], [address] ALT [Catalytic activity/Vol] 35 U/L Normal <=34 [facility] Comment on above: Performed By: #### L 501.5200, L501.4021, L501.2450, L500.3400, L100.0100, L500.2500, L503.7505 ####[facility] [address] [place], [address] AST [Catalytic activity/Vol] 21 U/L Normal <=31 [facility] Comment on above: Performed By: #### L 501.5200, L501.4021, L501.2450, L500.3400, L100.0100, L500.2500, L503.7505 ####[facility] [address] [place], [address] Bilirubin [Mass/Vol] 0.26 mg/dL Normal 0.00-1.30 [facility] Comment on above: Performed By: #### L 501.5200, L501.4021, L501.2450, L500.3400, L100.0100, L500.2500, L503.7505 ####[facility] [address] [place], [address] Bilirubin.direct [Mass/Vol] 0.13 mg/dL Normal 0.00-0.30 [facility] Comment on above: Performed By: #### L 501.5200, L501.4021, L501.2450, L500.3400, L100.0100, L500.2500, L503.7505 ####[facility] [address] [place], [address] Globulin (S) [Mass/Vol] 2.4 g/dL Normal 2.2-4.2 [place] Comment on above: Performed By: #### L 501.5200, L501.4021, L501.2450, L500.3400, L100.0100, L500.2500, L503.7505 ####[facility] [address] [place], [place], [address] T PROT 6.0 g/dL Normal 5.9-8.4 [facility] Comment on above: Performed By: #### L 501.5200, L501.4021, L501.2450, L500.3400, L100.0100, L500.2500, L503.7505 ####[facility] [address] [place], [address] MCV (mean corpuscular volume ) determinationOrdered By: Swati Huff on 03-03-2025 MCV (RBC) [Entitic vol] 106.8 fL High 81-99 [facility] Magnesiumon 03-03-2025 Magnesium [Mass/Vol] 2.0 mg/dL Normal 1.5-2.2 [facility] Comment on above: Performed By: #### L 501.5200, L501.4021, L501.2450, L500.3400, L100.0100, L500.2500, L503.7505 ####[facility] [address] [place], [address] Magnesium measurement (mass/ volume)Ordered By: Swati Huff on 03-03-2025 Magnesium (Unsp spec) [Mass/Vol] 2.0 mg/dL 1.5-2.2 [facility] Mean corpuscular hemoglobin (MCH) determinationOrdered By: Swati Huff on 03-03-2025 MCH (RBC) [Entitic mass] 32.5 pg High 27.0-32.0 [facility] Mean corpuscular hemoglobin concentration (MCHC) determinationOrdered By: Swati Huff on 03-03-2025 MCHC (RBC) [Mass/Vol] 30.4 g/dL Low 32-36 [facility] Mean platelet volume determi nationOrdered By: Swati Huff on 03-03-2025 Platelet mean volume (Bld) [Entitic vol] 10.3 fL 6.2-12.0 [facility] Measurement, pHOrdered By: Shruthi Huff on 03-03-2025 pH (Unsp spec) 7.48 [pH] High 7.35-7.45 [facility] Monocyte percentageOrdered B y: Swati Huff on 03-03-2025 Monocytes/100 WBC (Bld) 5.1 % 0-10 [place] Natriuretic peptide.B prohor lili N-Terminal [Mass/volume] in Serum or PlasmaOrdered By: Swati Huff on 03-03-2025 Natriuretic peptide.B prohormone N-Terminal [Mass/Vol] 531 pg/mL <900 [facility] Comment on above: Heart Failure Unlike ly: < 300 pg/mLHeart Failure Likely< 50 Years: > 450 pg/mL50-75 Years: > 900 pg/mL>75 Years: > 1800 pg/mL Neutrophil percentageOrdered By: Swati Huff on 03-03-2025 Neutrophils/100 WBC (Bld) 69.3 % 47-70 [facility] No Panel InformationOrdered By: Swati Huff on 03-03-2025 Bld Gas Crit Called To/Read Back By Yes [facility] Blood Gas Sample Site R Radial [facility] Blood Gas Specimen Type ART [place] Blood Gas Vent Mode Not entered [facility] Oxygen Delivery Device Not entered [place] ART [facility] R Radial [facility] Not entered [facility] Yes [facility] 21 U/L <32 [facility] Nucleated red blood cell per centageOrdered By: Swati Huff on 03-03-2025 Nucleated RBC/100 WBC (Bld) [Ratio] 0 % 0-5 [facility] Partial Thromboplast Timeon 03-03-2025 aPTT Coag (Bld) [Time] 25.9 s Normal 24.1-36.2 [facility] Comment on above: Performed By: #### L 300.8000, L300.4310, L300.3900 ####[facility] [address] [place], [address] Platelet countOrdered By: Manuel Huff on 03-03-2025 Platelets (Bld) [#/Vol] 184 10*3/uL 150-450 [facility] Potassium measurement (mass/ volume)Ordered By: Swati Huff on 03-03-2025 Potassium (Unsp spec) [Mass/Vol] 3.9 mmol/L 3.3-5.1 [facility] Prothrombin Time w/INRon INR Coag (PPP) [Relative time] 1.0 {INR} Normal [facility] Comment on above: Performed By: #### L 300.8000, L300.4310, L300.3900 ####[facility] [address] [place], [address] PT Coag (PPP) [Time] 13.7 s Normal 11.7-14.9 [facility] Comment on above: Performed By: #### L 300.8000, L300.4310, L300.3900 ####[facility] [address] [place], [address] Prothrombin timeOrdered By: Swati Huff on 03-03-2025 PT Coag (PPP) [Time] 13.7 s 11.7-14.9 [facility] RBC Auto (Bld) [#/Vol]Ordere d By: Swati Huff on 03-03-2025 RBC (Bld) [#/Vol] 1.91 10*6/uL Low 4.2-5.4 [facility] Serum creatinine measurement (mass/volume)Ordered By: Swati Huff on 03-03-2025 Creatinine [Mass/Vol] 1.25 mg/dL High 0.70-1.20 [facility] Serum globulin measurementOr dered By: Swati Huff on 03-03-2025 Globulin (S) [Mass/Vol] 2.4 g/dL 2.2-4.2 [facility] Serum glucose measurement (m ass/volume)Ordered By: Swati Huff on 03-03-2025 Glucose [Mass/Vol] 114 mg/dL High 70-99 [facility] Serum or plasma alanine tovar otransferase (ALT) measurementOrdered By: Swati Huff on 03-03-2025 ALT [Catalytic activity/Vol] 35 U/L <35 [facility] Serum or plasma albumin rosalina urement (mass/volume)Ordered By: Swati Huff on 03-03-2025 Albumin [Mass/Vol] 3.6 g/dL 3.4-4.8 [facility] Serum or plasma alkaline blanche sphatase measurementOrdered By: Swati Huff on 03-03-2025 ALP [Catalytic activity/Vol] 58 U/L 35-104 [facility] Serum or plasma calcium rosalina urement (mass/volume)Ordered By: Swati Huff on 03-03-2025 Calcium [Mass/Vol] 9.0 mg/dL 7.6-11.0 [facility] Serum or plasma urea nitroge n measurement (mass/volume)Ordered By: Swati Huff on 03-03-2025 Urea nitrogen [Mass/Vol] 26 mg/dL High 4-19 [facility] Sodium levelOrdered By: Salvador Huff on 03-03-2025 Sodium [Moles/Vol] 141 mmol/L 133-145 [facility] Stool Occult Blood iFOBon STOB Positive Normal [facility] Comment on above: Performed By: #### B , BRC, M100.7900 ####[facility] [address] [facility] [place], [address] Stool gastrointestinal hemog lobin detection by immunologic methodOrdered By: Swati Huff on 03-03-2025 Lower GI hemoglobin IA Ql (Stl) Positive Abnormal [facility] Total carbon dioxide measure mentOrdered By: Swati Huff on 03-03-2025 CO2 [Moles/Vol] 19 mmol/L [facility] Total proteinOrdered By: Kyra Huff on 03-03-2025 Protein [Mass/Vol] 6.0 g/dL 5.9-8.4 [facility] Troponin T.cardiac [Mass/vol ume] in Serum or Plasma by High sensitivity methodOrdered By: Swati Huff on 03-03-2025 Troponin T.cardiac High sensitivity method [Mass/Vol] 19 ng/L High <14 [facility] Troponin T.cardiac High sensitivity method [Mass/Vol] 21 ng/L High <14 [facility] Troponin T.cardiac High sensitivity method [Mass/Vol] 21 ng/L High <14 [facility] Comment on above: Delta: 26 on 5-0215 Type AND Screenon 03-03-2025 ABO and Rh group Nom (Bld) Blood group A Rh(D) negative Normal [facility] Comment on above: Order Comment: CMV N EG? NNumber of units to transfuse: 1Is pt's Hgb is = to 7.0 mg/dl or Hct </= 21%? YReason for Ordering Blood: ChronicAre the blood/blood products to be transfused? YIs the patient having/had surgery? NNWhen ReadyNYCHRONIC Performed By: #### B , BANNER, M100.7900 ####[facility] [address] [place], [address] White blood cell (WBC) count Ordered By: Swati Huff on 03-03-2025 WBC (Bld) [#/Vol] 9.9 10*3/uL 4.4-11.0 [facility] 12 Lead EKGon 02-28-2025 12 Lead EKG Normal [facility] 12 Lead EKG Normal [facility] Absolute lymphocyte countOrd ered By: Orlando Abdi on 02-28-2025 Lymphocytes Auto (Unsp spec) [#/Vol] 3.11 10*3/uL 0.83-4.51 [facility] Absolute neutrophil countOrd ered By: Orlando Abdi on 02-28-2025 Neutrophils (Bld) [#/Vol] 6.7 10*3/uL 2.0-7.7 [facility] Anion gap in Serum or Plasma Ordered By: Orlando Abdi on 02-28-2025 Anion gap [Moles/Vol] 11 mmol/L 5-15 [facility] Automated lymphocyte count a s percentage of total leukocytesOrdered By: Orlando Abdi on 02-28-2025 Lymphocytes/100 WBC Auto (Unsp spec) 28.0 % 19-41 [facility] BUN/creatinine ratioOrdered By: Orlando Abdi on 02-28-2025 Urea nitrogen/Creatinine [Mass ratio] 27.2 mg/mg High 10- [facility] Basic Metabolic Profile (BMP )on 02-28-2025 BUN/CRE 27.2 RATIO High - [facility] Comment on above: Performed By: #### L 500.2500, L100.0100, L501.4021 ####[facility] [address] [place], [address] Calcium [Mass/Vol] 9.2 mg/dL Normal 7.6-11.0 [facility] Comment on above: Performed By: #### L 500.2500, L100.0100, L501.4021 ####[facility] [address] [place], [address] Chloride [Moles/Vol] 107 mmol/L Normal 98-108 [facility] Comment on above: Performed By: #### L 500.2500, L100.0100, L501.4021 ####[facility] [address] [place], [address] CO2 [Moles/Vol] 22.6 mmol/L Normal 21.0-32.0 [facility] Comment on above: Performed By: #### L 500.2500, L100.0100, L501.4021 ####[facility] [address] [place], [address] Creatinine [Mass/Vol] 1.09 mg/dL Normal 0.70-1.20 [facility] Comment on above: Performed By: #### L 500.2500, L100.0100, L501.4021 ####[facility] [id number] [place], [address] ECRCL 53.96 ml/min Normal 50-250 [facility] Comment on above: Performed By: #### L 500.2500, L100.0100, L501.4021 ####[facility] [id number] [place], [address] GAP 11 Normal 5-15 [facility] Comment on above: Performed By: #### L 500.2500, L100.0100, L501.4021 ####[facility] [id number] [place], [address] GFR/1.73 sq M.predicted among non-blacks MDRD (S/P/Bld) [Vol rate/Area] 56 mL/min/{1.73_m2} Low >60 [facility] Comment on above: Result Comment: mL/m in/1.73m2 CKD-EPI Creatinine Equation (2020) Performed By: #### L 500.2500, L100.0100, L501.4021 ####[facility] [id number] [place], [address] Glucose [Mass/Vol] 110 mg/dL High 70-99 [facility] Comment on above: Performed By: #### L 500.2500, L100.0100, L501.4021 ####[facility] [address] [place], [address] Potassium [Moles/Vol] 4.9 mmol/L Normal 3.3-5.1 [facility] Comment on above: Performed By: #### L 500.2500, L100.0100, L501.4021 ####[facility] [address] [place], [address] Sodium [Moles/Vol] 140 mmol/L Normal 133-145 [facility] Comment on above: Performed By: #### L 500.2500, L100.0100, L501.4021 ####[facility] [address] [place], [address] Urea nitrogen [Mass/Vol] 30 mg/dL High 4-19 [facility] Comment on above: Performed By: #### L 500.2500, L100.0100, L501.4021 ####[facility] [address] [place], [address] Basophil percentageOrdered B y: Orlando Abdi on 02-28-2025 Basophils/100 WBC (Bld) 0.7 % 0-1 [facility] CBC W/Diff, Automatedon Absolute Lymph 3.11 X10 3/uL Normal 0.83-4.51 [facility] Comment on above: Performed By: #### L 500.2500, L100.0100, L501.4021 ####[facility] [address] [place], [address] Absolute Neut 6.7 X10 3/uL Normal 2.0-7.7 [facility] Comment on above: Performed By: #### L 500.2500, L100.0100, L501.4021 ####[facility] [address] [place], [address] Basophils/100 WBC (Bld) 0.7 % Normal 0-1 [facility] Comment on above: Performed By: #### L 500.2500, L100.0100, L501.4021 ####[facility] [address] [place], [address] Eosinophils/100 WBC (Bld) 3.6 % Normal 0-5 [facility] Comment on above: Performed By: #### L 500.2500, L100.0100, L501.4021 ####[facility] [address] [place], [address] Erythrocyte distribution width (RBC) [Ratio] 18.0 % High 11.6-14.6 [facility] Comment on above: Performed By: #### L 500.2500, L100.0100, L501.4021 ####[facility] [address] [place], [address] Hematocrit (Bld) [Volume fraction] 23.4 % Low 37-47 [facility] Comment on above: Performed By: #### L 500.2500, L100.0100, L501.4021 ####[facility] [address] [place], [address] Hemoglobin (Bld) [Mass/Vol] 7.4 g/dL Low 12.0-15.0 [facility] Comment on above: Performed By: #### L 500.2500, L100.0100, L501.4021 ####[facility] [address] [place], [address] IG% 0.700 Normal 0.0-0.9 [facility] Comment on above: Result Comment: IG% - Immature Granulocytes (promyelocytes, myelocytes andmetamyelocytes) > 1% indicates that a LEFT SHIFT is Present. Performed By: #### L 500.2500, L100.0100, L501.4021 ####[facility] [address] [place], [address] Lymphocytes/100 WBC (Bld) 28.0 % Normal 19-41 [facility] Comment on above: Performed By: #### L 500.2500, L100.0100, L501.4021 ####[facility] [address] [place], [address] MCH (RBC) [Entitic mass] 32.3 pg High 27.0-32.0 [facility] Comment on above: Performed By: #### L 500.2500, L100.0100, L501.4021 ####[facility] [address] [place], [address] MCHC (RBC) [Mass/Vol] 31.6 g/dL Low 32-36 [facility] Comment on above: Performed By: #### L 500.2500, L100.0100, L501.4021 ####[facility] [address] [place], [address] MCV (RBC) [Entitic vol] 102.2 fL High 81-99 [facility] Comment on above: Performed By: #### L 500.2500, L100.0100, L501.4021 ####[facility] [address] [place], [address] Monocytes/100 WBC (Bld) 6.2 % Normal 0-10 [place] Comment on above: Performed By: #### L 500.2500, L100.0100, L501.4021 ####[facility] [address] [place], [address] Neutrophils/100 WBC (Bld) 60.8 % Normal 47-70 [facility] Comment on above: Performed By: #### L 500.2500, L100.0100, L501.4021 ####[facility] [address] [place], [address] Nucleated RBC (Bld) [#/Vol] 0 10*3/uL Normal 0-5 [facility] Comment on above: Performed By: #### L 500.2500, L100.0100, L501.4021 ####[facility] [address] [place], [address] Platelet mean volume (Bld) [Entitic vol] 10.2 fL Normal 6.2-12.0 [facility] Comment on above: Performed By: #### L 500.2500, L100.0100, L501.4021 ####[facility] [address] [place], [address] Platelets (Bld) [#/Vol] 199 10*3/uL Normal 150-450 [facility] Comment on above: Performed By: #### L 500.2500, L100.0100, L501.4021 ####[facility] [address] [place], [address] RBC (Bld) [#/Vol] 2.29 10*6/uL Low 4.2-5.4 [facility] Comment on above: Performed By: #### L 500.2500, L100.0100, L501.4021 ####[facility] [address] [place], [address] RDW SD 64.8 fl High 35.1-43.9 [facility] Comment on above: Performed By: #### L 500.2500, L100.0100, L501.4021 ####[facility] [address] [place], [address] WBC (Bld) [#/Vol] 11.1 10*3/uL High 4.4-11.0 [facility] Comment on above: Performed By: #### L 500.2500, L100.0100, L501.4021 ####[facility] [address] [place], [address] Carbon dioxide, total [Moles /volume] in Central venous bloodOrdered By: Orlando Abdi on 02-28-2025 CO2 [Moles/Vol] 22.6 mmol/L 21.0-32.0 [facility] Chest 1 View (Portable)on Chest 1 View (Portable) Normal [facility] Chloride assayOrdered By: Bobbi Abdi on 02-28-2025 Chloride [Moles/Vol] 107 mmol/L 98-108 [facility] Emergency Department Summary on 02-28-2025 Emergency Department Summary Normal [facility] Eosinophil percentageOrdered By: Orlando Abdi on 02-28-2025 Eosinophils/100 WBC (Bld) 3.6 % 0-5 [facility] Erythrocyte distribution wid th ratioOrdered By: Orlando Abdi on 02-28-2025 Erythrocyte distribution width (RBC) [Ratio] 18.0 % High 11.6-14.6 [facility] Erythrocyte distribution wid th standard deviationOrdered By: Orlando Abdi on 02-28-2025 Erythrocyte distribution width (RBC) [Ratio] 64.8 fl High 35.1-43.9 [facility] Glomerular filtration rate ( GFR) estimation/1.73 sq m using serum, plasma, or whole bOrdered By: Orlando Abdi on 02-28-2025 GFR/1.73 sq M.predicted among non-blacks MDRD (S/P/Bld) [Vol rate/Area] 56 mL/min/{1.73_m2} Low >60 [facility] Comment on above: mL/min/1.73m2 CKD-EP I Creatinine Equation (2020) Hematocrit Auto (Bld) [Volum e fraction]Ordered By: Orlandogema Abdi on 02-28-2025 Hematocrit (Bld) [Volume fraction] 23.4 % Low 37-47 [facility] Hemoglobin measurementOrdere d By: Orlando Abdi on 02-28-2025 Hemoglobin (Bld) [Mass/Vol] 7.4 g/dL Low 12.0-15.0 [facility] Immature granulocytes/100 WB C Auto (Bld)Ordered By: Orlando Abdi on 02-28-2025 Immature granulocytes/100 WBC (Bld) 0.700 % 0.0-0.9 [facility] Comment on above: IG% - Immature Granu locytes (promyelocytes, myelocytes and metamyelocytes) > 1% indicates that a LEFT SHIFT is Present. L499.0042on 02-28-2025 Trop T High Sen 27 ng/L High <=14 [facility] Comment on above: Performed By: #### L 499.0042 ####[facility] [address] [place], [place], [id number] L499.0043on 02-28-2025 Trop T High Sen Normal <=14 [facility] Comment on above: Result Comment: Canc elled via OM: Order cancelled - Patient discharged Performed By: #### L 499.0043 ####[facility] [address] [place], [address] L501.4021on 02-28-2025 Trop T High Sen 26 ng/L High <=14 [facility] Comment on above: Performed By: #### L 500.2500, L100.0100, L501.4021 ####[facility] [address] [place], [address] MCV (mean corpuscular volume ) determinationOrdered By: Orlando Abdi on 02-28-2025 MCV (RBC) [Entitic vol] 102.2 fL High 81-99 [facility] Mean corpuscular hemoglobin (MCH) determinationOrdered By: Orlando Abdi on 02-28-2025 MCH (RBC) [Entitic mass] 32.3 pg High 27.0-32.0 [facility] Mean corpuscular hemoglobin concentration (MCHC) determinationOrdered By: Orlando Abdi on 02-28-2025 MCHC (RBC) [Mass/Vol] 31.6 g/dL Low 32-36 [facility] Mean platelet volume determi nationOrdered By: Orlando Abdi on 02-28-2025 Platelet mean volume (Bld) [Entitic vol] 10.2 fL 6.2-12.0 [facility] Monocyte percentageOrdered B y: Orlando Abdi on 02-28-2025 Monocytes/100 WBC (Bld) 6.2 % 0-10 [facility] Neutrophil percentageOrdered By: Orlando Abdi on 02-28-2025 Neutrophils/100 WBC (Bld) 60.8 % 47-70 [facility] Nucleated red blood cell per centageOrdered By: Orlando Abdi on 02-28-2025 Nucleated RBC/100 WBC (Bld) [Ratio] 0 % 0-5 [facility] Platelet countOrdered By: Bobbi Abdi on 02-28-2025 Platelets (Bld) [#/Vol] 199 10*3/uL 150-450 [facility] Potassium measurement (mass/ volume)Ordered By: Orlando Abdi on 02-28-2025 Potassium (Unsp spec) [Mass/Vol] 4.9 mmol/L 3.3-5.1 [facility] RBC Auto (Bld) [#/Vol]Ordere d By: Orlando Abdi on 02-28-2025 RBC (Bld) [#/Vol] 2.29 10*6/uL Low 4.2-5.4 [facility] Serum creatinine measurement (mass/volume)Ordered By: Orlando Abdi on 02-28-2025 Creatinine [Mass/Vol] 1.09 mg/dL 0.70-1.20 [facility] Serum glucose measurement (m ass/volume)Ordered By: Orlando Abdi on 02-28-2025 Glucose [Mass/Vol] 110 mg/dL High 70-99 [facility] Serum or plasma calcium rosalina urement (mass/volume)Ordered By: Orlando Abdi on 02-28-2025 Calcium [Mass/Vol] 9.2 mg/dL 7.6-11.0 [facility] Serum or plasma urea nitroge n measurement (mass/volume)Ordered By: Orlando Abdi on 02-28-2025 Urea nitrogen [Mass/Vol] 30 mg/dL High 4-19 [facility] Sodium levelOrdered By: Henry Abdi on 02-28-2025 Sodium [Moles/Vol] 140 mmol/L 133-145 [facility] Troponin T.cardiac [Mass/vol ume] in Serum or Plasma by High sensitivity methodOrdered By: Orlando Abid on 02-28-2025 Troponin T.cardiac High sensitivity method [Mass/Vol] 27 ng/L High <14 [facility] Troponin T.cardiac High sensitivity method [Mass/Vol] 26 ng/L High <14 [facility] Comment on above: Delta: 846 on White blood cell (WBC) count Ordered By: Orlando Abdi on 02-28-2025 WBC (Bld) [#/Vol] 11.1 10*3/uL High 4.4-11.0 [facility] .Auto Diffon 02-26-2025 Basophil, Absolute 0.1 10 3/mcL Normal 0.0-0.3 [facility] Comment on above: Performed By: #### M ORPH, ANEU, ADIFF, CBC #### [address] [address] Basophils/100 WBC (Bld) 0.8 % Normal 0.0-2.5 [facility] Comment on above: Performed By: #### M ORPH, ANEU, ADIFF, CBC #### [address] [address] Eosinophil, Absolute 0.4 10 3/mcL Normal 0.0-0.[address] [facility] Comment on above: Performed By: #### M ORPH, ANEU, ADIFF, CBC #### [address] [address] Eosinophils/100 WBC (Bld) 3.2 % Normal 0.0-6.0 [facility] Comment on above: Performed By: #### M ORPH, ANEU, ADIFF, CBC #### [address] [address] Lymphocyte, Absolute 1.9 10 3/mcL Normal 0.9-4.[address] [facility] Comment on above: Performed By: #### M ORPH, ANEU, ADIFF, CBC #### [address] [address] Lymphocytes/100 WBC (Bld) 17.4 % Low 20.0-40.0 [facility] Comment on above: Performed By: #### M ORPH, ANEU, ADIFF, CBC #### [address] [address] Monocyte, Absolute 0.7 10 3/mcL Normal 0.1-1.4 [facility] Comment on above: Performed By: #### M ORPH, ANEU, ADIFF, CBC #### [address] [address] Monocytes/100 WBC (Bld) 6.0 % Normal 2.0-13.0 [facility] Comment on above: Performed By: #### M ORPH, ANEU, ADIFF, CBC #### [address] [address] Neutrophils/100 WBC (Bld) 72.6 % Normal 50.0-75.0 [facility] Comment on above: Performed By: #### M ORPH, ANEU, ADIFF, CBC #### [address] [place], [place] [address] .GFRon 02-26-2025 Estimated Glomerular Filtration Rate 61 ml/min/1.73sqm Normal [facility] Comment on above: Result Comment: Stages [...] #### M ORPH, ANEU, ADIFF, CBC #### [address] [address] .NEUABSon 02-26-2025 Neutrophil, Absolute 8.1 10 3/mcL Normal 2.3-8.[address] [facility] Comment on above: Performed By: #### M ORPH, ANEU, ADIFF, CBC #### [address] [place], [place] [address] BMPon 02-26-2025 BUN/Creatinine Ratio 21 ratio Normal 7-27 [facility] Comment on above: Performed By: #### M ORPH, ANEU, ADIFF, CBC #### [address] [place], [place] [address] Calcium [Mass/Vol] 8.9 mg/dL Normal 8.4-10.2 [facility] Comment on above: Performed By: #### M ORPH, ANEU, ADIFF, CBC #### [address] [place], [place] [address] Chloride [Moles/Vol] 109 mmol/L High 98-107 [facility] Comment on above: Performed By: #### M ORPH ANEU, ADIFF, CBC #### [address] [address] CO2 [Moles/Vol] 26 mmol/L Normal 23-31 [facility] Comment on above: Performed By: #### M ORPH ANEU, ADIFF, CBC #### [address] [address] Creatinine [Mass/Vol] 1.01 mg/dL High 0.51-0.95 [facility] Comment on above: Performed By: #### M ORPH ANEU, ADIFF, CBC #### [address] [address] Electrolyte Balance 10.0 mEq/L Normal 4.0-15.0 [facility] Comment on above: Performed By: #### M ORPH ANEU, ADIFF, CBC #### [address] [address] Glucose [Mass/Vol] 112 mg/dL Normal 80-115 [facility] Comment on above: Performed By: #### M ORPH ANEU, ADIFF, CBC #### [address] [address] Potassium [Moles/Vol] 3.8 mmol/L Normal 3.5-5.1 [facility] Comment on above: Performed By: #### M ORPH ANEU, ADIFF, CBC #### [address] [address] Sodium [Moles/Vol] 145 mmol/L Normal 136-145 [facility] Comment on above: Performed By: #### M ORPH ANEU, ADIFF, CBC #### [address] [address] Urea nitrogen [Mass/Vol] 21 mg/dL High 7-18 [facility] Comment on above: Performed By: #### M ORPH ANEU, ADIFF, CBC #### [address] [address] CBCon 02-26-2025 Erythrocyte distribution width (RBC) [Ratio] 17.7 % High 11.5-15.5 [facility] Comment on above: Order Comment: STAT Performed By: #### M ORPH, ANEU, ADIFF, CBC #### [place] [address] Hematocrit (Bld) [Volume fraction] 24.8 % Low 34.0-46.0 [facility] Comment on above: Order Comment: STAT Performed By: #### M ORPH, ANEU, ADIFF, CBC #### [place] [address] Hgb 8.2 G/dL Low 12.0-16.0 [facility] Comment on above: Order Comment: STAT Performed By: #### M ORPH, ANEU, ADIFF, CBC #### [place] [address] MCH (RBC) [Entitic mass] 32.7 pg Normal 27.0-33.0 [facility] Comment on above: Order Comment: STAT Performed By: #### M ORPH, ANEU, ADIFF, CBC #### [place] [address] MCHC 33.1 G/dL Normal 32.0-36.0 [facility] Comment on above: Order Comment: STAT Performed By: #### M ORPH, ANEU, ADIFF, CBC #### [place] [address] MCV (RBC) [Entitic vol] 98.7 fL Normal 80.0-99.0 [facility] Comment on above: Order Comment: STAT Performed By: #### M ORPH, ANEU, ADIFF, CBC #### [place] [address] Platelet 191 10 3/mcL Normal 150-450 [facility] Comment on above: Order Comment: STAT Performed By: #### M ORPH, ANEU, ADIFF, CBC #### [address] [place] [address] Platelet mean volume (Bld) [Entitic vol] 7.5 fL Normal 6.6-10.5 [facility] Comment on above: Order Comment: STAT Performed By: #### M ORPH, ANEU, ADIFF, CBC #### [address] [address] RBC 2.51 10 6/mcL Low 4.10-5.30 [facility] Comment on above: Order Comment: STAT Performed By: #### M ORPH, ANEU, ADIFF, CBC #### [address] [address] WBC 11.2 10 3/mcL High 4.5-10.8 [facility] Comment on above: Order Comment: STAT Performed By: #### M ORPH, ANEU, ADIFF, CBC #### [address] [address] LABORATORYOrdered By: SYSTEM SYSTEM on 02-26-2025 Basophils [...] 02-26-2025 Magnesium [Mass/Vol] 1.7 mg/dL Low 1.8-2.4 [facility] Comment on above: Performed By: #### M ORPH, KELIN, SO, CBC #### [address] [address] Absolute lymphocyte countOrd ered By: Josh Peñaloza on 02-22-2025 Lymphocytes Auto (Unsp spec) [#/Vol] 1.33 10*3/uL 0.83-4.51 [facility] Absolute neutrophil countOrd ered By: Josh Peñaloza on 02-22-2025 Neutrophils (Bld) [#/Vol] 10.6 10*3/uL High 2.0-7.7 [facility] Anion gap in Serum or Plasma Ordered By: Josh Peñaloza on 02-22-2025 Anion gap [Moles/Vol] 11 mmol/L 5-15 [facility] Automated lymphocyte count a s percentage of total leukocytesOrdered By: Josh Peñaloza on 02-22-2025 Lymphocytes/100 WBC Auto (Unsp spec) 10.6 % Low 19-41 [facility] BUN/creatinine ratioOrdered By: Josh Peñaloza on 02-22-2025 Urea nitrogen/Creatinine [Mass ratio] 16.7 mg/mg 10-20 [facility] Basic Metabolic Profile (BMP )on 02-22-2025 BUN/CRE 16.7 RATIO Normal 10-20 [facility] Comment on above: Performed By: #### L 100.0100, L500.2500 ####[facility] [address] [place], [address] Calcium [Mass/Vol] 8.5 mg/dL Normal 7.6-11.0 [facility] Comment on above: Performed By: #### L 100.0100, L500.2500 ####[facility] [address] [place], [address] Chloride [Moles/Vol] 109 mmol/L High 98-108 [facility] Comment on above: Performed By: #### L 100.0100, L500.2500 ####[facility] [address] [place], [address] CO2 [Moles/Vol] 20.4 mmol/L Low 21.0-32.0 [facility] Comment on above: Performed By: #### L 100.0100, L500.2500 ####[facility] [address] [place], [address] Creatinine [Mass/Vol] 1.14 mg/dL Normal 0.70-1.20 [facility] Comment on above: Performed By: #### L 100.0100, L500.2500 ####[facility] [address] [place], [address] ECRCL 47.21 ml/min Low 50-250 [facility] Comment on above: Performed By: #### L 100.0100, L500.2500 ####[facility] [address] [place], [address] GAP 11 Normal 5-15 [facility] Comment on above: Performed By: #### L 100.0100, L500.2500 ####[facility] [address] [place], [address] GFR/1.73 sq M.predicted among non-blacks MDRD (S/P/Bld) [Vol rate/Area] 53 mL/min/{1.73_m2} Low >60 [facility] Comment on above: Result Comment: mL/m in/1.73m2 CKD-EPI Creatinine Equation (2020) Performed By: #### L 100.0100, L500.2500 ####[facility] [address] [place], [address] Glucose [Mass/Vol] 96 mg/dL Normal 70-99 [facility] Comment on above: Performed By: #### L 100.0100, L500.2500 ####[facility] [address] [place], [address] Potassium [Moles/Vol] 3.6 mmol/L Normal 3.3-5.1 [facility] Comment on above: Performed By: #### L 100.0100, L500.2500 ####[facility] [address] [place], [address] Sodium [Moles/Vol] 140 mmol/L Normal 133-145 [facility] Comment on above: Performed By: #### L 100.0100, L500.2500 ####[facility] [address] [place], [address] Urea nitrogen [Mass/Vol] 19 mg/dL Normal 4-19 [facility] Comment on above: Performed By: #### L 100.0100, L500.2500 ####[facility] [address] [place], [address] Basophil percentageOrdered B y: Josh Peñaloza on 02-22-2025 Basophils/100 WBC (Bld) 0.3 % 0-1 [facility] CBC W/Diff, Automatedon 05 Absolute Lymph 1.33 X10 3/uL Normal 0.83-4.51 [facility] Comment on above: Performed By: #### L 100.0100, L500.2500 ####[facility] [address] [place], [address] Absolute Neut 10.6 X10 3/uL High 2.0-7.7 [facility] Comment on above: Performed By: #### L 100.0100, L500.2500 ####[facility] [address] [place], [address] Basophils/100 WBC (Bld) 0.3 % Normal 0-1 [facility] Comment on above: Performed By: #### L 100.0100, L500.2500 ####[facility] [address] [place], [address] Eosinophils/100 WBC (Bld) 0.4 % Normal 0-5 [facility] Comment on above: Performed By: #### L 100.0100, L500.2500 ####[facility] [address] [place], [address] Erythrocyte distribution width (RBC) [Ratio] 16.0 % High 11.6-14.6 [facility] Comment on above: Performed By: #### L 100.0100, L500.2500 ####[facility] [address] [place], [address] Hematocrit (Bld) [Volume fraction] 23.9 % Low 37-47 [facility] Comment on above: Performed By: #### L 100.0100, L500.2500 ####[facility] [address] [place], [address] Hemoglobin (Bld) [Mass/Vol] 7.7 g/dL Low 12.0-15.0 [facility] Comment on above: Performed By: #### L 100.0100, L500.2500 ####[facility] [address] [place], [address] IG% 0.500 Normal 0.0-0.9 [facility] Comment on above: Result Comment: IG% - Immature Granulocytes (promyelocytes, myelocytes andmetamyelocytes) > 1% indicates that a LEFT SHIFT is Present. Performed By: #### L 100.0100, L500.2500 ####[facility] [address] [place], [address] Lymphocytes/100 WBC (Bld) 10.6 % Low 19-41 [facility] Comment on above: Performed By: #### L 100.0100, L500.2500 ####[facility] [address] [place], [address] MCH (RBC) [Entitic mass] 32.0 pg Normal 27.0-32.0 [facility] Comment on above: Performed By: #### L 100.0100, L500.2500 ####[facility] [address] [place], [address] MCHC (RBC) [Mass/Vol] 32.2 g/dL Normal 32-36 [facility] Comment on above: Performed By: #### L 100.0100, L500.2500 ####[facility] [address] [place], [address] MCV (RBC) [Entitic vol] 99.2 fL High 81-99 [facility] Comment on above: Performed By: #### L 100.0100, L500.2500 ####[facility] [address] [place], [address] Monocytes/100 WBC (Bld) 4.0 % Normal 0-10 [facility] Comment on above: Performed By: #### L 100.0100, L500.2500 ####[facility] [address] [place], [address] Neutrophils/100 WBC (Bld) 84.2 % High 47-70 [facility] Comment on above: Performed By: #### L 100.0100, L500.2500 ####[facility] [address], [address] Nucleated RBC (Bld) [#/Vol] 0 10*3/uL Normal 0-5 [facility] Comment on above: Performed By: #### L 100.0100, L500.2500 ####[facility] [address] [place], [address] Platelet mean volume (Bld) [Entitic vol] 10.5 fL Normal 6.2-12.0 [facility] Comment on above: Performed By: #### L 100.0100, L500.2500 ####[facility] [address] [place], [address] Platelets (Bld) [#/Vol] 161 10*3/uL Normal 150-450 [facility] Comment on above: Performed By: #### L 100.0100, L500.2500 ####[facility] [id number] [place], [address] RBC (Bld) [#/Vol] 2.41 10*6/uL Low 4.2-5.4 [facility] Comment on above: Performed By: #### L 100.0100, L500.2500 ####[facility] [id number] [place], [address] RDW SD 57.8 fl High 35.1-43.9 [facility] Comment on above: Performed By: #### L 100.0100, L500.2500 ####[facility] [id number] [place], [address] WBC (Bld) [#/Vol] 12.5 10*3/uL High 4.4-11.0 [facility] Comment on above: Performed By: #### L 100.0100, L500.2500 ####[facility] [id number] [place], [address] Carbon dioxide, total [Moles /volume] in Central venous bloodOrdered By: Josh Peñaloza on 02-22-2025 CO2 [Moles/Vol] 20.4 mmol/L Low 21.0-32.0 [facility] Chloride assayOrdered By: Huy Peñaloza on 02-22-2025 Chloride [Moles/Vol] 109 mmol/L High 98-108 [facility] Eosinophil percentageOrdered By: Josh Peñaloza on 02-22-2025 Eosinophils/100 WBC (Bld) 0.4 % 0-5 [facility] Erythrocyte distribution wid th ratioOrdered By: Josh Peñaloza on 02-22-2025 Erythrocyte distribution width (RBC) [Ratio] 16.0 % High 11.6-14.6 [facility] Erythrocyte distribution wid th standard deviationOrdered By: Josh Peñaloza on 02-22-2025 Erythrocyte distribution width (RBC) [Ratio] 57.8 fl High 35.1-43.9 [facility] Glomerular filtration rate ( GFR) estimation/1.73 sq m using serum, plasma, or whole bOrdered By: Josh Peñaloza on 02-22-2025 GFR/1.73 sq M.predicted among non-blacks MDRD (S/P/Bld) [Vol rate/Area] 53 mL/min/{1.73_m2} Low >60 [facility] Comment on above: mL/min/1.73m2 CKD-EP I Creatinine Equation (2020) Hematocrit Auto (Bld) [Volum e fraction]Ordered By: Josh Peñaloza on 02-22-2025 Hematocrit (Bld) [Volume fraction] 23.9 % Low 37-47 [facility] Hemoglobin measurementOrdere d By: Josh Peñaloza on 02-22-2025 Hemoglobin (Bld) [Mass/Vol] 7.7 g/dL Low 12.0-15.0 [facility] Immature granulocytes/100 WB C Auto (Bld)Ordered By: Josh Peñaloza on 02-22-2025 Immature granulocytes/100 WBC (Bld) 0.500 % 0.0-0.9 [facility] Comment on above: IG% - Immature Granu locytes (promyelocytes, myelocytes and metamyelocytes) > 1% indicates that a LEFT SHIFT is Present. MCV (mean corpuscular volume ) determinationOrdered By: Josh Peñaloza on 02-22-2025 MCV (RBC) [Entitic vol] 99.2 fL High 81-99 [facility] Mean corpuscular hemoglobin (MCH) determinationOrdered By: Josh Peñaloza on 02-22-2025 MCH (RBC) [Entitic mass] 32.0 pg 27.0-32.0 [facility] Mean corpuscular hemoglobin concentration (MCHC) determinationOrdered By: Josh Peñaloza on 02-22-2025 MCHC (RBC) [Mass/Vol] 32.2 g/dL 32-36 [facility] Mean platelet volume determi nationOrdered By: Josh Peñaloza on 02-22-2025 Platelet mean volume (Bld) [Entitic vol] 10.5 fL 6.2-12.0 [facility] Monocyte percentageOrdered B y: Josh Peñaloza on 02-22-2025 Monocytes/100 WBC (Bld) 4.0 % 0-10 [facility] Neutrophil percentageOrdered By: Josh Peñaloza on 02-22-2025 Neutrophils/100 WBC (Bld) 84.2 % High 47-70 [facility] Nucleated red blood cell per centageOrdered By: Josh Peñaloza on 02-22-2025 Nucleated RBC/100 WBC (Bld) [Ratio] 0 % 0-5 [facility] Platelet countOrdered By: Huy Peñaloza on 02-22-2025 Platelets (Bld) [#/Vol] 161 10*3/uL 150-450 [facility] Potassium measurement (mass/ volume)Ordered By: Josh Peñaloza on 02-22-2025 Potassium (Unsp spec) [Mass/Vol] 3.6 mmol/L 3.3-5.1 [facility] RBC Auto (Bld) [#/Vol]Ordere d By: Josh Peñaloza on 02-22-2025 RBC (Bld) [#/Vol] 2.41 10*6/uL Low 4.2-5.4 [facility] Serum creatinine measurement (mass/volume)Ordered By: Josh Peñaloza on 02-22-2025 Creatinine [Mass/Vol] 1.14 mg/dL 0.70-1.20 [facility] Serum glucose measurement (m ass/volume)Ordered By: Josh Peñaloza on 02-22-2025 Glucose [Mass/Vol] 96 mg/dL 70-99 [facility] Serum or plasma calcium rosalina urement (mass/volume)Ordered By: Josh Peñaloza on 02-22-2025 Calcium [Mass/Vol] 8.5 mg/dL 7.6-11.0 [facility] Serum or plasma urea nitroge n measurement (mass/volume)Ordered By: Josh Peñaloza on 02-22-2025 Urea nitrogen [Mass/Vol] 19 mg/dL 4-19 [facility] Sodium levelOrdered By: Loc Peñaloza on 02-22-2025 Sodium [Moles/Vol] 140 mmol/L 133-145 [facility] White blood cell (WBC) count Ordered By: Josh Peñaloza on 02-22-2025 WBC (Bld) [#/Vol] 12.5 10*3/uL High 4.4-11.0 [facility] Basic Metabolic Profile (BMP )on 02-21-2025 BUN/CRE 18.7 RATIO Normal 10-20 [facility] Comment on above: Performed By: #### L 100.0100, L500.2500 ####[facility] [address] [place], [address] Calcium [Mass/Vol] 9.1 mg/dL Normal 7.6-11.0 [facility] Comment on above: Performed By: #### L 100.0100, L500.2500 ####[facility] [address] [place], [address] Chloride [Moles/Vol] 108 mmol/L Normal 98-108 [facility] Comment on above: Performed By: #### L 100.0100, L500.2500 ####[facility] [address] [place], [address] CO2 [Moles/Vol] 20.1 mmol/L Low 21.0-32.0 [facility] Comment on above: Performed By: #### L 100.0100, L500.2500 ####[facility] [address] [place], [address] Creatinine [Mass/Vol] 1.16 mg/dL Normal 0.70-1.20 [facility] Comment on above: Performed By: #### L 100.0100, L500.2500 ####[facility] [address] [place], [address] ECRCL 46.39 ml/min Low 50-250 [facility] Comment on above: Performed By: #### L 100.0100, L500.2500 ####[facility] [address] [place], [address] GAP 12 Normal 5-15 [facility] Comment on above: Performed By: #### L 100.0100, L500.2500 ####[facility] [address] [place], [address] GFR/1.73 sq M.predicted among non-blacks MDRD (S/P/Bld) [Vol rate/Area] 52 mL/min/{1.73_m2} Low >60 [facility] Comment on above: Result Comment: mL/m in/1.73m2 CKD-EPI Creatinine Equation (2020) Performed By: #### L 100.0100, L500.2500 ####[facility] [address] [place], [address] Glucose [Mass/Vol] 93 mg/dL Normal 70-99 [facility] Comment on above: Performed By: #### L 100.0100, L500.2500 ####[facility] [address] [place], [address] Potassium [Moles/Vol] 3.6 mmol/L Normal 3.3-5.1 [facility] Comment on above: Performed By: #### L 100.0100, L500.2500 ####[facility] [address] [place], [address] Sodium [Moles/Vol] 141 mmol/L Normal 133-145 [facility] Comment on above: Performed By: #### L 100.0100, L500.2500 ####[facility] [address] [place], [address] Urea nitrogen [Mass/Vol] 22 mg/dL High 4-19 [facility] Comment on above: Performed By: #### L 100.0100, L500.2500 ####[facility] [address] [place], [address] CBC W/Diff, Automatedon 05-0 1-2024 Absolute Lymph 2.19 X10 3/uL Normal 0.83-4.51 [facility] Comment on above: Performed By: #### L 100.0100, L500.2500 ####[facility] [address] [place], [address] Absolute Neut 7.7 X10 3/uL Normal 2.0-7.7 [facility] Comment on above: Performed By: #### L 100.0100, L500.2500 ####[facility] [address] [place], [address] Basophils/100 WBC (Bld) 0.8 % Normal 0-1 [facility] Comment on above: Performed By: #### L 100.0100, L500.2500 ####[facility] [address] [place], [address] Eosinophils/100 WBC (Bld) 0.5 % Normal 0-5 [facility] Comment on above: Performed By: #### L 100.0100, L500.2500 ####[facility] [address] [place], [address] Erythrocyte distribution width (RBC) [Ratio] 15.8 % High 11.6-14.6 [facility] Comment on above: Performed By: #### L 100.0100, L500.2500 ####[facility] [address] [place], [address] Hematocrit (Bld) [Volume fraction] 23.9 % Low 37-47 [facility] Comment on above: Performed By: #### L 100.0100, L500.2500 ####[facility] [address] [place], [address] Hemoglobin (Bld) [Mass/Vol] 7.8 g/dL Low 12.0-15.0 [facility] Comment on above: Performed By: #### L 100.0100, L500.2500 ####[facility] [address] [place], [address] IG% 0.400 Normal 0.0-0.9 [facility] Comment on above: Result Comment: IG% - Immature Granulocytes (promyelocytes, myelocytes andmetamyelocytes) > 1% indicates that a LEFT SHIFT is Present. Performed By: #### L 100.0100, L500.2500 ####[facility] [address] [place], [address] Lymphocytes/100 WBC (Bld) 20.7 % Normal 19-41 [facility] Comment on above: Performed By: #### L 100.0100, L500.2500 ####[facility] [address] [place], [address] MCH (RBC) [Entitic mass] 32.1 pg High 27.0-32.0 [facility] Comment on above: Performed By: #### L 100.0100, L500.2500 ####[facility] [address] [place], [address] MCHC (RBC) [Mass/Vol] 32.6 g/dL Normal 32-36 [facility] Comment on above: Performed By: #### L 100.0100, L500.2500 ####[facility] [address] [place], [address] MCV (RBC) [Entitic vol] 98.4 fL Normal 81-99 [facility] Comment on above: Performed By: #### L 100.0100, L500.2500 ####[facility] [address] [place], [address] Monocytes/100 WBC (Bld) 4.7 % Normal 0-10 [facility] Comment on above: Performed By: #### L 100.0100, L500.2500 ####[facility] [address] [place], [address] Neutrophils/100 WBC (Bld) 72.9 % High 47-70 [facility] Comment on above: Performed By: #### L 100.0100, L500.2500 ####[facility] [address] [place], [address] Nucleated RBC (Bld) [#/Vol] 0 10*3/uL Normal 0-5 [facility] Comment on above: Performed By: #### L 100.0100, L500.2500 ####[facility] [address] [place], [address] Platelet mean volume (Bld) [Entitic vol] 10.2 fL Normal 6.2-12.0 [facility] Comment on above: Performed By: #### L 100.0100, L500.2500 ####[facility] [address] [place], [address] Platelets (Bld) [#/Vol] 199 10*3/uL Normal 150-450 [facility] Comment on above: Performed By: #### L 100.0100, L500.2500 ####[facility] [address] [place], [address] RBC (Bld) [#/Vol] 2.43 10*6/uL Low 4.2-5.4 [facility] Comment on above: Performed By: #### L 100.0100, L500.2500 ####[facility] [address] [place], [address] RDW SD 56.3 fl High 35.1-43.9 [facility] Comment on above: Performed By: #### L 100.0100, L500.2500 ####[facility] [address] [place], [address] WBC (Bld) [#/Vol] 10.6 10*3/uL Normal 4.4-11.0 [facility] Comment on above: Performed By: #### L 100.0100, L500.2500 ####[facility] [address] [place], [address] Colonoscopy Reporton 025 Colonoscopy Report Normal [facility] MR/POSTOP.ANEon 02-21-2025 MR/POSTOP.ANE Normal [facility] Surgery Specimen Level Nabila 02-21-2025 Surgery Specimen Level IV Normal [facility] Comment on above: Performed By: #### P SUIV ####[facility] [address] [place], [address] Basic Metabolic Profile (BMP )on 02-20-2025 BUN/CRE 18.8 RATIO Normal 10-20 [facility] Comment on above: Performed By: #### L 501.2300, L100.0100, L501.5200, L500.2500 ####[facility] [address] [place], [address] Calcium [Mass/Vol] 9.5 mg/dL Normal 7.6-11.0 [facility] Comment on above: Performed By: #### L 501.2300, L100.0100, L501.5200, L500.2500 ####[facility] [address] [place], [address] Chloride [Moles/Vol] 106 mmol/L Normal 98-108 [facility] Comment on above: Performed By: #### L 501.2300, L100.0100, L501.5200, L500.2500 ####[facility] [address] [place], [address] CO2 [Moles/Vol] 19.7 mmol/L Low 21.0-32.0 [facility] Comment on above: Performed By: #### L 501.2300, L100.0100, L501.5200, L500.2500 ####[facility] [address] [place], [address] Creatinine [Mass/Vol] 1.16 mg/dL Normal 0.70-1.20 [facility] Comment on above: Performed By: #### L 501.2300, L100.0100, L501.5200, L500.2500 ####[facility] [address] [place], [address] ECRCL 46.39 ml/min Low 50-250 [facility] Comment on above: Performed By: #### L 501.2300, L100.0100, L501.5200, L500.2500 ####[facility] [address] [place], [address] GAP 13 Normal 5-15 [facility] Comment on above: Performed By: #### L 501.2300, L100.0100, L501.5200, L500.2500 ####[facility] [address] [place], [address] GFR/1.73 sq M.predicted among non-blacks MDRD (S/P/Bld) [Vol rate/Area] 52 mL/min/{1.73_m2} Low >60 [facility] Comment on above: Result Comment: mL/m in/1.73m2 CKD-EPI Creatinine Equation (2020) Performed By: #### L 501.2300, L100.0100, L501.5200, L500.2500 ####[facility] [address] [place], [address] Glucose [Mass/Vol] 146 mg/dL High 70-99 [facility] Comment on above: Performed By: #### L 501.2300, L100.0100, L501.5200, L500.2500 ####[facility] [address] [place], [address] Potassium [Moles/Vol] 4.4 mmol/L Normal 3.3-5.1 [facility] Comment on above: Performed By: #### L 501.2300, L100.0100, L501.5200, L500.2500 ####[facility] [address] [place], [address] Sodium [Moles/Vol] 139 mmol/L Normal 133-145 [facility] Comment on above: Performed By: #### L 501.2300, L100.0100, L501.5200, L500.2500 ####[facility] [address] [place], [address] Urea nitrogen [Mass/Vol] 22 mg/dL High 4-19 [facility] Comment on above: Performed By: #### L 501.2300, L100.0100, L501.5200, L500.2500 ####[facility] [address] [place], [address] CBC W/Diff, Automatedon 04-3 0-2024 Absolute Lymph 0.55 X10 3/uL Low 0.83-4.51 [facility] Comment on above: Performed By: #### L 501.2300, L100.0100, L501.5200, L500.2500 ####[facility] [address] [place], [address] Absolute Neut 6.4 X10 3/uL Normal 2.0-7.7 [facility] Comment on above: Performed By: #### L 501.2300, L100.0100, L501.5200, L500.2500 ####[facility] [address] [place], [address] Basophils/100 WBC (Bld) 0.1 % Normal 0-1 [facility] Comment on above: Performed By: #### L 501.2300, L100.0100, L501.5200, L500.2500 ####[facility] [address] [place], [address] Eosinophils/100 WBC (Bld) 0.0 % Normal 0-5 [facility] Comment on above: Performed By: #### L 501.2300, L100.0100, L501.5200, L500.2500 ####[facility] [address] [place], [address] Erythrocyte distribution width (RBC) [Ratio] 15.3 % High 11.6-14.6 [facility] Comment on above: Performed By: #### L 501.2300, L100.0100, L501.5200, L500.2500 ####[facility] [address] [place], [address] Hematocrit (Bld) [Volume fraction] 26.6 % Low 37-47 [facility] Comment on above: Performed By: #### L 501.2300, L100.0100, L501.5200, L500.2500 ####[facility] [address] [place], [address] Hemoglobin (Bld) [Mass/Vol] 8.7 g/dL Low 12.0-15.0 [facility] Comment on above: Performed By: #### L 501.2300, L100.0100, L501.5200, L500.2500 ####[facility] [address] [place], [address] IG% 0.100 Normal 0.0-0.9 [facility] Comment on above: Result Comment: IG% - Immature Granulocytes (promyelocytes, myelocytes andmetamyelocytes) > 1% indicates that a LEFT SHIFT is Present. Performed By: #### L 501.2300, L100.0100, L501.5200, L500.2500 ####[facility] [address] [place], [address] Lymphocytes/100 WBC (Bld) 7.8 % Low 19-41 [facility] Comment on above: Performed By: #### L 501.2300, L100.0100, L501.5200, L500.2500 ####[facility] [address] [place], [address] MCH (RBC) [Entitic mass] 32.0 pg Normal 27.0-32.0 [facility] Comment on above: Performed By: #### L 501.2300, L100.0100, L501.5200, L500.2500 ####[facility] [address] [place], [address] MCHC (RBC) [Mass/Vol] 32.7 g/dL Normal 32-36 [facility] Comment on above: Performed By: #### L 501.2300, L100.0100, L501.5200, L500.2500 ####[facility] [address] [place], [address] MCV (RBC) [Entitic vol] 97.8 fL Normal 81-99 [place] Comment on above: Performed By: #### L 501.2300, L100.0100, L501.5200, L500.2500 ####[facility] [address] [place], [address] Monocytes/100 WBC (Bld) 1.7 % Normal 0-10 [facility] Comment on above: Performed By: #### L 501.2300, L100.0100, L501.5200, L500.2500 ####[facility] [address] [place], [address] Neutrophils/100 WBC (Bld) 90.3 % High 47-70 [facility] Comment on above: Performed By: #### L 501.2300, L100.0100, L501.5200, L500.2500 ####[facility] [address] [place], [address] Nucleated RBC (Bld) [#/Vol] 0 10*3/uL Normal 0-5 [facility] Comment on above: Performed By: #### L 501.2300, L100.0100, L501.5200, L500.2500 ####[facility] [address] [place], [address] Platelet mean volume (Bld) [Entitic vol] 10.2 fL Normal 6.2-12.0 [facility] Comment on above: Performed By: #### L 501.2300, L100.0100, L501.5200, L500.2500 ####[facility] [address] [place], [address] Platelets (Bld) [#/Vol] 230 10*3/uL Normal 150-450 [facility] Comment on above: Performed By: #### L 501.2300, L100.0100, L501.5200, L500.2500 ####[facility] [address] [place], [address] RBC (Bld) [#/Vol] 2.72 10*6/uL Low 4.2-5.4 [facility] Comment on above: Performed By: #### L 501.2300, L100.0100, L501.5200, L500.2500 ####[facility] [address] [place], [address] RDW SD 54.4 fl High 35.1-43.9 [facility] Comment on above: Performed By: #### L 501.2300, L100.0100, L501.5200, L500.2500 ####[facility] [address] [place], [address] WBC (Bld) [#/Vol] 7.1 10*3/uL Normal 4.4-11.0 [facility] Comment on above: Performed By: #### L 501.2300, L100.0100, L501.5200, L500.2500 ####[facility] [address] [place], [address] Colonoscopy Reporton 025 Colonoscopy Report Normal [facility] MR/POSTOP.ANEon 02-20-2025 MR/POSTOP.ANE Normal [facility] MR/FQKMHHRO0km 02-20-2025 MR/POSTOPAN2 Normal [facility] Magnesiumon 02-20-2025 Magnesium [Mass/Vol] 2.2 mg/dL Normal 1.5-2.2 [facility] Comment on above: Performed By: #### L 501.2300, L100.0100, L501.5200, L500.2500 ####[facility] [address] [place], [address] Magnesium measurement (mass/ volume)Ordered By: Josh Peñaloza on 02-20-2025 Magnesium (Unsp spec) [Mass/Vol] 2.2 mg/dL 1.5-2.2 [facility] Phosphoruson 02-20-2025 Phosphate [Mass/Vol] 4.2 mg/dL Normal 2.7-4.5 [facility] Comment on above: Performed By: #### L 501.2300, L100.0100, L501.5200, L500.2500 ####[facility] [address] [place], [address] Basic Metabolic Profile (BMP )on 02-19-2025 BUN/CRE 15.7 RATIO Normal 10-20 [facility] Comment on above: Performed By: #### L 100.0100, L500.2500 ####[facility] [address] [place], [address] Calcium [Mass/Vol] 9.3 mg/dL Normal 7.6-11.0 [facility] Comment on above: Performed By: #### L 100.0100, L500.2500 ####[facility] [address] [place], [address] Chloride [Moles/Vol] 108 mmol/L Normal 98-108 [facility] Comment on above: Performed By: #### L 100.0100, L500.2500 ####[facility] [address] [place], [address] CO2 [Moles/Vol] 21.8 mmol/L Normal 21.0-32.0 [facility] Comment on above: Performed By: #### L 100.0100, L500.2500 ####[facility] [address] [place], [address] Creatinine [Mass/Vol] 1.14 mg/dL Normal 0.70-1.20 [facility] Comment on above: Performed By: #### L 100.0100, L500.2500 ####[facility] [address] [place], [address] ECRCL 47.21 ml/min Low 50-250 [facility] Comment on above: Performed By: #### L 100.0100, L500.2500 ####[facility] [address] [place], [address] GAP 12 Normal 5-15 [facility] Comment on above: Performed By: #### L 100.0100, L500.2500 ####[facility] [address] [place], [address] GFR/1.73 sq M.predicted among non-blacks MDRD (S/P/Bld) [Vol rate/Area] 53 mL/min/{1.73_m2} Low >60 [facility] Comment on above: Result Comment: mL/m in/1.73m2 CKD-EPI Creatinine Equation (2020) Performed By: #### L 100.0100, L500.2500 ####[facility] [address] [place], [address] Glucose [Mass/Vol] 88 mg/dL Normal 70-99 [facility] Comment on above: Performed By: #### L 100.0100, L500.2500 ####[facility] [address] [place], [address] Potassium [Moles/Vol] 4.1 mmol/L Normal 3.3-5.1 [facility] Comment on above: Performed By: #### L 100.0100, L500.2500 ####[facility] [address] [place], [address] Sodium [Moles/Vol] 142 mmol/L Normal 133-145 [facility] Comment on above: Performed By: #### L 100.0100, L500.2500 ####[facility] [address] [place], [address] Urea nitrogen [Mass/Vol] 18 mg/dL Normal 4-19 [facility] Comment on above: Performed By: #### L 100.0100, L500.2500 ####[facility] [address] [place], [address] Bedside Glucoseon 02-19-2025 FINGERSTICK GLU 87 mg/dL Normal 74-106 [facility] Comment on above: Result Comment: TIMOTHY HUGHES OF PATIENT CARE PER NURSING PROTOCOL Performed By: #### L 501.080 ####[facility] [address] [place], [address] CBC W/Diff, Automatedon 04-2 Absolute Lymph 1.39 X10 3/uL Normal 0.83-4.51 [facility] Comment on above: Performed By: #### L 100.0100, L500.2500 ####[facility] [address] [place], [address] Absolute Neut 6.7 X10 3/uL Normal 2.0-7.7 [facility] Comment on above: Performed By: #### L 100.0100, L500.2500 ####[facility] [address] [place], [address] Basophils/100 WBC (Bld) 1.0 % Normal 0-1 [facility] Comment on above: Performed By: #### L 100.0100, L500.2500 ####[facility] [address] [place], [address] Eosinophils/100 WBC (Bld) 2.8 % Normal 0-5 [facility] Comment on above: Performed By: #### L 100.0100, L500.2500 ####[facility] [address] [place], [address] Erythrocyte distribution width (RBC) [Ratio] 15.6 % High 11.6-14.6 [facility] Comment on above: Performed By: #### L 100.0100, L500.2500 ####[facility] [address] [place], [address] Hematocrit (Bld) [Volume fraction] 27.3 % Low 37-47 [facility] Comment on above: Performed By: #### L 100.0100, L500.2500 ####[facility] [address] [place], [address] Hemoglobin (Bld) [Mass/Vol] 8.8 g/dL Low 12.0-15.0 [facility] Comment on above: Performed By: #### L 100.0100, L500.2500 ####[facility] [address] [place], [address] IG% 0.300 Normal 0.0-0.9 [facility] Comment on above: Result Comment: IG% - Immature Granulocytes (promyelocytes, myelocytes andmetamyelocytes) > 1% indicates that a LEFT SHIFT is Present. Performed By: #### L 100.0100, L500.2500 ####[facility] [address] [place], [address] Lymphocytes/100 WBC (Bld) 15.8 % Low 19-41 [facility] Comment on above: Performed By: #### L 100.0100, L500.2500 ####[facility] [address] [place], [address] MCH (RBC) [Entitic mass] 32.2 pg High 27.0-32.0 [facility] Comment on above: Performed By: #### L 100.0100, L500.2500 ####[facility] [address] [place], [address] MCHC (RBC) [Mass/Vol] 32.2 g/dL Normal 32-36 [facility] Comment on above: Performed By: #### L 100.0100, L500.2500 ####[facility] [address] [place], [address] MCV (RBC) [Entitic vol] 100.0 fL High 81-99 [facility] Comment on above: Performed By: #### L 100.0100, L500.2500 ####[facility] [address] [place], [address] Monocytes/100 WBC (Bld) 4.4 % Normal 0-10 [facility] Comment on above: Performed By: #### L 100.0100, L500.2500 ####[facility] [address] [place], [address] Neutrophils/100 WBC (Bld) 75.7 % High 47-70 [facility] Comment on above: Performed By: #### L 100.0100, L500.2500 ####[facility] [address] [place], [address] Nucleated RBC (Bld) [#/Vol] 0 10*3/uL Normal 0-5 [facility] Comment on above: Performed By: #### L 100.0100, L500.2500 ####[facility] [address] [place], [address] Platelet mean volume (Bld) [Entitic vol] 9.6 fL Normal 6.2-12.0 [facility] Comment on above: Performed By: #### L 100.0100, L500.2500 ####[facility] [address] [place], [address] Platelets (Bld) [#/Vol] 205 10*3/uL Normal 150-450 [facility] Comment on above: Performed By: #### L 100.0100, L500.2500 ####[facility] [address] [place], [address] RBC (Bld) [#/Vol] 2.73 10*6/uL Low 4.2-5.4 [facility] Comment on above: Performed By: #### L 100.0100, L500.2500 ####[facility] [address] [place], [address] RDW SD 56.0 fl High 35.1-43.9 [facility] Comment on above: Performed By: #### L 100.0100, L500.2500 ####[facility] [address] [place], [address] WBC (Bld) [#/Vol] 8.8 10*3/uL Normal 4.4-11.0 [facility] Comment on above: Performed By: #### L 100.0100, L500.2500 ####[facility] [address] [place], [address] EGD Reporton 02-19-2025 EGD Report Normal [facility] Echo Completeon 02-19-2025 Echo Complete Normal [facility] deOrdered By: Josh Peñaloza on 02-19-2025 Glucose [Mass/Vol] 87 mg/dL 74-106 [facility] Comment on above: MANAGEMENT OF PATIEN T CARE PER NURSING PROTOCOL HH, Hemoglobin AND Hematocri ton 02-19-2025 Hematocrit (Bld) [Volume fraction] 28.5 % Low 37-47 [facility] Comment on above: Performed By: #### L 100.0600 ####[facility] [address] [place], [address] Hemoglobin (Bld) [Mass/Vol] 9.3 g/dL Low 12.0-15.0 [facility] Comment on above: Performed By: #### L 100.0600 ####[facility] [address] [place], [address] Hematocrit (Bld) [Volume fraction] 28.8 % Low 37-[address] [place] [address] Comment on above: Performed By: #### L 100.0600 ####[facility] [address] [place], [address] Hemoglobin (Bld) [Mass/Vol] 9.2 g/dL Low 12.0-15.0 [facility] Comment on above: Performed By: #### L 100.0600 ####[facility] [address] [place], [address] Hematocrit (Bld) [Volume fraction] 27.6 % Low 37-47 [facility] Comment on above: Performed By: #### L 100.0600 ####[facility] [address] [place], [address] Hemoglobin (Bld) [Mass/Vol] 8.8 g/dL Low 12.0-15.0 [facility] Comment on above: Performed By: #### L 100.0600 ####[facility] [address] [place], [address] Hematocrit (Bld) [Volume fraction] 29.1 % Low 37-47 [facility] Comment on above: Performed By: #### L 100.0600 ####[facility] [address] [place], [address] Hemoglobin (Bld) [Mass/Vol] 9.2 g/dL Low 12.0-15.0 [facility] Comment on above: Performed By: #### L 100.0600 ####[facility] [address] [place], [address] MR/POSTOP.ANEon 02-19-2025 MR/POSTOP.ANE Normal [facility] MR/[id number] 02-19-2025 MR/POSTOPAN2 Normal [facility] 12 Lead EKGon 02-18-2025 12 Lead EKG Normal [facility] Basic Metabolic Profile (BMP )on 02-18-2025 BUN/CRE 19.4 RATIO Normal 10-20 [facility] Comment on above: Performed By: #### L 100.0100, L500.2500 ####[facility] [address] [place], [address] Calcium [Mass/Vol] 9.5 mg/dL Normal 7.6-11.0 [facility] Comment on above: Performed By: #### L 100.0100, L500.2500 ####[facility] [address] [place], [address] Chloride [Moles/Vol] 108 mmol/L Normal 98-108 [facility] Comment on above: Performed By: #### L 100.0100, L500.2500 ####[facility] [address] [place], [address] CO2 [Moles/Vol] 21.8 mmol/L Normal 21.0-32.0 [facility] Comment on above: Performed By: #### L 100.0100, L500.2500 ####[facility] [address] [place], [address] Creatinine [Mass/Vol] 1.13 mg/dL Normal 0.70-1.20 [facility] Comment on above: Performed By: #### L 100.0100, L500.2500 ####[facility] [address] [place], [address] ECRCL 47.62 ml/min Low 50-250 [facility] Comment on above: Performed By: #### L 100.0100, L500.2500 ####[facility] [address] [place], [address] GAP 11 Normal 5-15 [facility] Comment on above: Performed By: #### L 100.0100, L500.2500 ####[facility] [address] [place], [address] GFR/1.73 sq M.predicted among non-blacks MDRD (S/P/Bld) [Vol rate/Area] 54 mL/min/{1.73_m2} Low >60 [facility] Comment on above: Result Comment: mL/m in/1.73m2 CKD-EPI Creatinine Equation (2020) Performed By: #### L 100.0100, L500.2500 ####[facility] [address] [place], [address] Glucose [Mass/Vol] 102 mg/dL High 70-99 [facility] Comment on above: Performed By: #### L 100.0100, L500.2500 ####[facility] [address] [place], [address] Potassium [Moles/Vol] 4.1 mmol/L Normal 3.3-5.1 [facility] Comment on above: Performed By: #### L 100.0100, L500.2500 ####[facility] [address] [place], [address] Sodium [Moles/Vol] 141 mmol/L Normal 133-145 [facility] Comment on above: Performed By: #### L 100.0100, L500.2500 ####[facility] [address] [place], [address] Urea nitrogen [Mass/Vol] 22 mg/dL High 4-19 [facility] Comment on above: Performed By: #### L 100.0100, L500.2500 ####[facility] [address] [place], [address] CBC W/Diff, Automatedon 04-2 -2024 Absolute Lymph 1.74 X10 3/uL Normal 0.83-4.51 [facility] Comment on above: Performed By: #### L 100.0100, L500.2500 ####[facility] [address] [place], [address] Absolute Neut 8.5 X10 3/uL High 2.0-7.7 [facility] Comment on above: Performed By: #### L 100.0100, L500.2500 ####[facility] [address] [place], [address] Basophils/100 WBC (Bld) 1.0 % Normal 0-1 [facility] Comment on above: Performed By: #### L 100.0100, L500.2500 ####[facility] [address] [place], [address] Eosinophils/100 WBC (Bld) 1.6 % Normal 0-5 [facility] Comment on above: Performed By: #### L 100.0100, L500.2500 ####[facility] [address] [place], [address] Erythrocyte distribution width (RBC) [Ratio] 15.5 % High 11.6-14.6 [facility] Comment on above: Performed By: #### L 100.0100, L500.2500 ####[facility] [address] [place], [address] Hematocrit (Bld) [Volume fraction] 28.5 % Low 37-47 [facility] Comment on above: Performed By: #### L 100.0100, L500.2500 ####[facility] [address] [place], [address] Hemoglobin (Bld) [Mass/Vol] 9.1 g/dL Low 12.0-15.0 [facility] Comment on above: Performed By: #### L 100.0100, L500.2500 ####[facility] [address] [place], [address] IG% 0.400 Normal 0.0-0.9 [facility] Comment on above: Result Comment: IG% - Immature Granulocytes (promyelocytes, myelocytes andmetamyelocytes) > 1% indicates that a LEFT SHIFT is Present. Performed By: #### L 100.0100, L500.2500 ####[facility] [address] [place], [address] Lymphocytes/100 WBC (Bld) 15.8 % Low 19-41 [facility] Comment on above: Performed By: #### L 100.0100, L500.2500 ####[facility] [address] [place], [address] MCH (RBC) [Entitic mass] 32.0 pg Normal 27.0-32.0 [facility] Comment on above: Performed By: #### L 100.0100, L500.2500 ####[facility] [address] [place], [address] MCHC (RBC) [Mass/Vol] 31.9 g/dL Low 32-36 [facility] Comment on above: Performed By: #### L 100.0100, L500.2500 ####[facility] [address] [place], [address] MCV (RBC) [Entitic vol] 100.4 fL High 81-99 [facility] Comment on above: Performed By: #### L 100.0100, L500.2500 ####[facility] [address] [place], [address] Monocytes/100 WBC (Bld) 3.9 % Normal 0-10 [place] Comment on above: Performed By: #### L 100.0100, L500.2500 ####[facility] [address] [place], [address] Neutrophils/100 WBC (Bld) 77.3 % High 47-70 [facility] Comment on above: Performed By: #### L 100.0100, L500.2500 ####[facility] [address] [place], [address] Nucleated RBC (Bld) [#/Vol] 0 10*3/uL Normal 0-5 [facility] Comment on above: Performed By: #### L 100.0100, L500.2500 ####[facility] [address] [place], [address] Platelet mean volume (Bld) [Entitic vol] 9.9 fL Normal 6.2-12.0 [facility] Comment on above: Performed By: #### L 100.0100, L500.2500 ####[facility] [address] [place], [address] Platelets (Bld) [#/Vol] 228 10*3/uL Normal 150-450 [facility] Comment on above: Performed By: #### L 100.0100, L500.2500 ####[facility] [address] [place], [address] RBC (Bld) [#/Vol] 2.84 10*6/uL Low 4.2-5.4 [facility] Comment on above: Performed By: #### L 100.0100, L500.2500 ####[facility] [address] [place], [address] RDW SD 55.8 fl High 35.1-43.9 [facility] Comment on above: Performed By: #### L 100.0100, L500.2500 ####[facility] [address] [place], [address] WBC (Bld) [#/Vol] 11.0 10*3/uL Normal 4.4-11.0 [facility] Comment on above: Performed By: #### L 100.0100, L500.2500 ####[facility] [address] [place], [address] Emergency Department Summary on 02-18-2025 Emergency Department Summary Normal [facility] H AND P Exam - Hospitaliston 02-18-2025 H&P Exam - Hospitalist Normal [facility] HGBon 02-18-2025 Hgb 9.4 G/dL Low 12.0-16.0 [facility] Comment on above: Order Comment: STAT Performed By: #### M ORPH, ANEU, ADIFF, CBC #### [facility] [address] [place], [place] [address] HH, Hemoglobin AND Hematocri ton 02-18-2025 Hematocrit (Bld) [Volume fraction] 27.7 % Low 37-47 [facility] Comment on above: Performed By: #### L 100.0600 ####[facility] [address] [place], [address] Hemoglobin (Bld) [Mass/Vol] 9.0 g/dL Low 12.0-15.0 [facility] Comment on above: Performed By: #### L 100.0600 ####[facility] [address] [place], [place], [id number] LABORATORYOrdered By: SYSTEM SYSTEM on 02-18-2025 Hemoglobin (Bld) [Mass/Vol] 9.4 G/dL Low 12.0 - 16.0 G/dL AO Workflow SS MR/CON.PCM.GIon 02-18-2025 MR/CON.PCM.GI Normal [facility] ,Urineon 02-18-2025 Beta HCG ( test) Ql (U) Normal [facility] Comment on above: Order Comment: Jose Eduardo vitale has had a period within 12 [id number] Result Comment: DONT NEED Performed By: #### L 400.7600 ####[facility] [address] [place], [place], [id number] INTERNAL QC OK? Normal [facility] Comment on above: Order Comment: Jose Eduardo vitale has had a period within 12 [id number] Result Comment: DONT NEED Performed By: #### L 400.7600 ####[facility] [address] [place], [place], [id number] RECORD KIT LOT# [facility] Comment on above: Order Comment: Jose Eduardo vitale has had a period within 12 [id number] Result Comment: DONT NEED Performed By: #### L 400.7600 ####[facility] [address] [place], [address] LABORATORYOrdered By: Lidia Souza on 02-16-2025 Hemoglobin.gastrointesti nal Ql (Stl) Positive *ABN* (02/16/25 8:21 AM) Invalid Interpretation Code AO Rapid Testing SS OCC (LAB)on 02-16-2025 Occult Blood Fecal Positive Abnormal Negative [facility] Comment on above: Performed By: #### O CC #### Marleen [address] [address] .Auto Diffon 02-15-2025 Basophil, Absolute 0.1 10 3/mcL Normal 0.0-0.3 [facility] Comment on above: Performed By: #### A MY, LIP, A1C, ADIFF, TSHR, CMP, CBC, LIPID, GFR, [id number], VIDH, [id number], ANEU #### [address] [address] #### HCV1 #### [address] [address] Basophils/100 WBC (Bld) 1.0 % Normal 0.0-2.5 [facility] Comment on above: Performed By: #### A MY, LIP, A1C, ADIFF, TSHR, CMP, CBC, LIPID, GFR, [id number], VIDH, [id number], ANEU #### [address] [address] #### HCV1 #### [address] [address] Eosinophil, Absolute 0.3 10 3/mcL Normal 0.0-0.[address] [facility] Comment on above: Performed By: #### A MY, LIP, A1C, ADIFF, TSHR, CMP, CBC, LIPID, GFR, [id number], VIDH, [id number], ANEU #### [address] [address] #### HCV1 #### [address] [address] Eosinophils/100 WBC (Bld) 2.9 % Normal 0.0-6.0 [facility] Comment on above: Performed By: #### A MY, LIP, A1C, ADIFF, TSHR, CMP, CBC, LIPID, GFR, [id number], VIDH, 613802, ANEU #### [address] [address] #### HCV1 #### [address] [address] Lymphocyte, Absolute 1.7 10 3/mcL Normal 0.9-4.[address] [facility] Comment on above: Performed By: #### A MY, LIP, A1C, ADIFF, TSHR, CMP, CBC, LIPID, GFR, [id number], VIDH, [id number], ANEU #### [address] [address] #### HCV1 #### [address] [address] Lymphocytes/100 WBC (Bld) 16.1 % Low 20.0-40.0 [facility] Comment on above: Performed By: #### A MY, LIP, A1C, ADIFF, TSHR, CMP, CBC, LIPID, GFR, [id number], VIDH, [id number], ANEU #### [address] [address] #### HCV1 #### [address] [address] Monocyte, Absolute 0.5 10 3/mcL Normal 0.1-1.4 [facility] Comment on above: Performed By: #### A MY, LIP, A1C, ADIFF, TSHR, CMP, CBC, LIPID, GFR, [id number], VIDH, [id number], ANEU #### [address] [address] #### HCV1 #### [address] [address] Monocytes/100 WBC (Bld) 5.0 % Normal 2.0-13.0 [facility] Comment on above: Performed By: #### A MY, LIP, A1C, ADIFF, TSHR, CMP, CBC, LIPID, GFR, [id number], VIDH, [id number], ANEU #### [address] [address] #### HCV1 #### [address] [address] Neutrophils/100 WBC (Bld) 75.0 % Normal 50.0-75.0 [facility] Comment on above: Performed By: #### A MY, LIP, A1C, ADIFF, TSHR, CMP, CBC, LIPID, GFR, [id number], VIDH, 753945, ANEU #### [address] [address] #### HCV1 #### [address] [address] .GFRon 02-15-2025 Estimated Glomerular Filtration Rate 53 ml/min/1.73sqm Normal [facility] Comment on above: Result Comment: Stages [...] A1C, ADIFF, TSHR, CMP, CBC, LIPID, GFR, [id number], VIDH, 067819, ANEU #### [place] [address] #### HCV1 #### [place] [address] .NEUABSon 02-15-2025 Neutrophil, Absolute 7.8 10 3/mcL Normal 2.3-8.[address] [facility] Comment on above: Performed By: #### A MY, LIP, A1C, ADIFF, TSHR, CMP, CBC, LIPID, GFR, [id number], VIDH, [id number], ANEU #### [place] [id number] #### HCV1 #### [place] [id number] BMPon 02-15-2025 BUN/Creatinine Ratio 18 ratio Normal 7-27 [facility] Comment on above: Performed By: #### A MY, LIP, A1C, ADIFF, TSHR, CMP, CBC, LIPID, GFR, [id number], VIDH, 141661, ANEU #### [place] [address] #### HCV1 #### [address] [address] Calcium [Mass/Vol] 9.2 mg/dL Normal 8.4-10.2 [facility] Comment on above: Performed By: #### A MY, LIP, A1C, ADIFF, TSHR, CMP, CBC, LIPID, GFR, [id number], VIDH, 773001, ANEU #### [address] [address] #### HCV1 #### [address] [address] Chloride [Moles/Vol] 106 mmol/L Normal 98-107 [facility] Comment on above: Performed By: #### A MY, LIP, A1C, ADIFF, TSHR, CMP, CBC, LIPID, GFR, [id number], VIDH, 270614, ANEU #### [place] [address] #### HCV1 #### [address] [address] CO2 [Moles/Vol] 24 mmol/L Normal 23-31 [facility] Comment on above: Performed By: #### A MY, LIP, A1C, ADIFF, TSHR, CMP, CBC, LIPID, GFR, [id number], VIDH, 645265, ANEU #### [address] [address] #### HCV1 #### [address] [address] Creatinine [Mass/Vol] 1.14 mg/dL High 0.51-0.95 [facility] Comment on above: Performed By: #### A MY, LIP, A1C, ADIFF, TSHR, CMP, CBC, LIPID, GFR, [id number], VIDH, 558062, ANEU #### [address] [address] #### HCV1 #### [address] [address] Electrolyte Balance 11.0 mEq/L Normal 4.0-15.0 [facility] Comment on above: Performed By: #### A MY, LIP, A1C, ADIFF, TSHR, CMP, CBC, LIPID, GFR, [id number], VIDH, 309981, ANEU #### [address] [address] #### HCV1 #### [address] [address] Glucose [Mass/Vol] 117 mg/dL High 80-115 [facility] Comment on above: Performed By: #### A MY, LIP, A1C, ADIFF, TSHR, CMP, CBC, LIPID, GFR, [id number], VIDH, [id number], ANEU #### [address] [address] #### HCV1 #### [address] [address] Potassium [Moles/Vol] 3.8 mmol/L Normal 3.5-5.1 [facility] Comment on above: Performed By: #### A MY, LIP, A1C, ADIFF, TSHR, CMP, CBC, LIPID, GFR, [id number], VIDH, 363791, ANEU #### [address] [address] #### HCV1 #### [address] [address] Sodium [Moles/Vol] 141 mmol/L Normal 136-145 [facility] Comment on above: Performed By: #### A MY, LIP, A1C, ADIFF, TSHR, CMP, CBC, LIPID, GFR, [id number], VIDH, [id number], ANEU #### [address] [address] #### HCV1 #### [address] [address] Urea nitrogen [Mass/Vol] 20 mg/dL High 7-18 [facility] Comment on above: Performed By: #### A MY, LIP, A1C, ADIFF, TSHR, CMP, CBC, LIPID, GFR, [id number], VIDH, 870283, ANEU #### [address] [address] #### HCV1 #### [address] 02-15-2025 Erythrocyte distribution width (RBC) [Ratio] 15.5 % Normal 11.5-15.5 [facility] Comment on above: Order Comment: STAT Performed By: #### M ORPH, ANEU, ADIFF, CBC #### [address] [address] Hematocrit (Bld) [Volume fraction] 29.4 % Low 34.0-46.0 [facility] Comment on above: Order Comment: STAT Performed By: #### M ORPH, ANEU, ADIFF, CBC #### [address] [address] Hgb 10.0 G/dL Low 12.0-16.0 [facility] Comment on above: Order Comment: STAT Performed By: #### M ORPH, ANEU, ADIFF, CBC #### [address] [address] MCH (RBC) [Entitic mass] 32.6 pg Normal 27.0-33.0 [facility] Comment on above: Order Comment: STAT Performed By: #### M ORPH, ANEU, ADIFF, CBC #### [address] [address] MCHC 33.9 G/dL Normal 32.0-36.0 [facility] Comment on above: Order Comment: STAT Performed By: #### M ORPH, ANEU, ADIFF, CBC #### [address] [address] MCV (RBC) [Entitic vol] 96.1 fL Normal 80.0-99.0 [facility] Comment on above: Order Comment: STAT Performed By: #### M ORPH, ANEU, ADIFF, CBC #### [address] [address] Platelet 247 10 3/mcL Normal 150-450 [facility] Comment on above: Order Comment: STAT Performed By: #### M ORPH, ANEU, ADIFF, CBC #### [address] [address] Platelet mean volume (Bld) [Entitic vol] 7.5 fL Normal 6.6-10.5 [facility] Comment on above: Order Comment: STAT Performed By: #### M ORPH, ANEU, ADIFF, CBC #### [place] [address] RBC 3.06 10 6/mcL Low 4.10-5.30 [facility] Comment on above: Order Comment: STAT Performed By: #### M ORPH, ANEU, ADIFF, CBC #### [place] [address] WBC 10.3 10 3/mcL Normal 4.5-10.8 [facility] Comment on above: Order Comment: STAT Performed By: #### M ORPH, ANEU, ADIFF, CBC #### [address] [address] LABORATORYOrdered By: SYSTEM SYSTEM on 02-15-2025 Basophils [...] Basophil, Absolute 0.1 10 3/mcL Normal 0.0-0.3 [facility] Comment on above: Performed By: #### M ORPH, ANEU, ADIFF, CBC #### [place] [address] [place], [place] [address] Basophils/100 WBC (Bld) 1.4 % Normal 0.0-2.5 [facility] Comment on above: Performed By: #### M ORPH, ANEU, ADIFF, CBC #### [place] [address] [place], [place] [address] Eosinophil, Absolute 0.3 10 3/mcL Normal 0.0-0.[address] [facility] Comment on above: Performed By: #### M ORPH, ANEU, ADIFF, CBC #### [place] [address] [place], [place] [address] Eosinophils/100 WBC (Bld) 3.3 % Normal 0.0-6.0 [facility] Comment on above: Performed By: #### M ORPH, ANEU, ADIFF, CBC #### [place] [address] [place], [place] [address] Lymphocyte, Absolute 2.3 10 3/mcL Normal 0.9-4.[address] [facility] Comment on above: Performed By: #### M ORPH, ANEU, ADIFF, CBC #### [address] [address] Lymphocytes/100 WBC (Bld) 24.3 % Normal 20.0-40.0 [facility] Comment on above: Performed By: #### M ORPH, ANEU, ADIFF, CBC #### [address] [address] Monocyte, Absolute 0.5 10 3/mcL Normal 0.1-1.4 [facility] Comment on above: Performed By: #### M ORPH, ANEU, ADIFF, CBC #### [address] [address] Monocytes/100 WBC (Bld) 5.2 % Normal 2.0-13.0 [facility] Comment on above: Performed By: #### M ORPH, ANEU, ADIFF, CBC #### [address] [address] Neutrophils/100 WBC (Bld) 65.8 % Normal 50.0-75.0 [facility] Comment on above: Performed By: #### M ORPH, ANEU, ADIFF, CBC #### [address] [address] .Morphon 02-14-2025 Platelet Estimate Normal Normal [facility] Comment on above: Performed By: #### M ORPH, ANEU, ADIFF, CBC #### [address] [address] .NEUABSon 02-14-2025 Neutrophil, Absolute 6.3 10 3/mcL Normal 2.3-8.[address] [facility] Comment on above: Performed By: #### M ORPH, ANEU, ADIFF, CBC #### [address] [address] CBCon 02-14-2025 Erythrocyte distribution width (RBC) [Ratio] 15.4 % Normal 11.5-15.5 [facility] Comment on above: Performed By: #### M ORPH, ANEU, ADIFF, CBC #### [address] [address] Hematocrit (Bld) [Volume fraction] 28.5 % Low 34.0-46.0 [facility] Comment on above: Performed By: #### M ORPH, ANEU, ADIFF, CBC #### [address] [address] Hgb 9.7 G/dL Low 12.0-16.0 [facility] Comment on above: Performed By: #### M ORPH, ANEU, ADIFF, CBC #### [address] [address] MCH (RBC) [Entitic mass] 32.7 pg Normal 27.0-33.0 [facility] Comment on above: Performed By: #### M ORPH, ANEU, ADIFF, CBC #### [place] [address] MCHC 34.1 G/dL Normal 32.0-36.0 [facility] Comment on above: Performed By: #### M ORPH, ANEU, ADIFF, CBC #### [address] [address] MCV (RBC) [Entitic vol] 95.9 fL Normal 80.0-99.0 [facility] Comment on above: Performed By: #### M ORPH, ANEU, ADIFF, CBC #### [address] [address] Platelet 240 10 3/mcL Normal 150-450 [facility] Comment on above: Performed By: #### M ORPH, ANEU, ADIFF, CBC #### [address] [address] Platelet mean volume (Bld) [Entitic vol] 8.0 fL Normal 6.6-10.5 [facility] Comment on above: Performed By: #### M ORPH, ANEU, ADIFF, CBC #### [place] [id number] RBC 2.97 10 6/mcL Low 4.10-5.30 [facility] Comment on above: Performed By: #### M ORPH, ANEU, ADIFF, CBC #### [place] [id number] [place], [place] [address] WBC 9.6 10 3/mcL Normal 4.5-10.8 [facility] Comment on above: Performed By: #### M ORPH, ANEU, ADIFF, CBC #### [facility] [address] [place], [place] [address] LABORATORYOrdered By: SYSTEM SYSTEM on 02-14-2025 Basophils [...] CR - History & Physical Normal [facility] Cardiology Visit Reporton Cardiology Visit Report Normal [place] 12 Lead EKGon 02-06-2025 12 Lead EKG Normal [facility] Absolute lymphocyte countOrd ered By: Inderjit Gilmore on 02-06-2025 Lymphocytes Auto (Unsp spec) [#/Vol] 1.68 10*3/uL 0.83-4.51 [facility] Absolute neutrophil countOrd ered By: Inderjit Gilmore on 02-06-2025 Neutrophils (Bld) [#/Vol] 8.7 10*3/uL High 2.0-7.7 [facility] Anion gap in Serum or Plasma Ordered By: Inderjit Gilmore on 02-06-2025 Anion gap [Moles/Vol] 13 mmol/L 5-15 [facility] Automated lymphocyte count a s percentage of total leukocytesOrdered By: Inderjit Gilmore on 02-06-2025 Lymphocytes/100 WBC Auto (Unsp spec) 14.7 % Low 19-41 [facility] BUN/creatinine ratioOrdered By: Inderjit Gilmore on 02-06-2025 Urea nitrogen/Creatinine [Mass ratio] 19.6 mg/mg 10-20 [facility] Basic Metabolic Profile (BMP )on 02-06-2025 BUN/CRE 19.6 RATIO Normal - [facility] Comment on above: Performed By: #### L 100.0100, L500.2500, L501.2450, L500.3400, L501.9520, L501.4021, L501.5200 ####[facility] [address] [place], [address] Calcium [Mass/Vol] 9.4 mg/dL Normal 7.6-11.0 [facility] Comment on above: Performed By: #### L 100.0100, L500.2500, L501.2450, L500.3400, L501.9520, L501.4021, L501.5200 ####[facility] [address] [place], [address] Chloride [Moles/Vol] 106 mmol/L Normal 98-108 [facility] Comment on above: Performed By: #### L 100.0100, L500.2500, L501.2450, L500.3400, L501.9520, L501.4021, L501.5200 ####[facility] [address] [place], [address] CO2 [Moles/Vol] 19.9 mmol/L Low 21.0-32.0 [facility] Comment on above: Performed By: #### L 100.0100, L500.2500, L501.2450, L500.3400, L501.9520, L501.4021, L501.5200 ####[facility] [address] [place], [address] Creatinine [Mass/Vol] 1.06 mg/dL Normal 0.70-1.20 [facility] Comment on above: Performed By: #### L 100.0100, L500.2500, L501.2450, L500.3400, L501.9520, L501.4021, L501.5200 ####[facility] [address] [place], [address] ECRCL 50.77 ml/min Normal 50-250 [facility] Comment on above: Performed By: #### L 100.0100, L500.2500, L501.2450, L500.3400, L501.9520, L501.4021, L501.5200 ####[facility] [address] [place], [address] GAP 13 Normal 5-15 [facility] Comment on above: Performed By: #### L 100.0100, L500.2500, L501.2450, L500.3400, L501.9520, L501.4021, L501.5200 ####[facility] [address] [place], [address] GFR/1.73 sq M.predicted among non-blacks MDRD (S/P/Bld) [Vol rate/Area] 58 mL/min/{1.73_m2} Low >60 [facility] Comment on above: Result Comment: mL/m in/1.73m2 CKD-EPI Creatinine Equation (2020) Performed By: #### L 100.0100, L500.2500, L501.2450, L500.3400, L501.9520, L501.4021, L501.5200 ####[facility] [address] [place], [address] Glucose [Mass/Vol] 110 mg/dL High 70-99 [facility] Comment on above: Performed By: #### L 100.0100, L500.2500, L501.2450, L500.3400, L501.9520, L501.4021, L501.5200 ####[facility] [address] [place], [address] Potassium [Moles/Vol] 4.6 mmol/L Normal 3.3-5.1 [facility] Comment on above: Result Comment: Hemo lysis present, Results??could be affected.?? Performed By: #### L 100.0100, L500.2500, L501.2450, L500.3400, L501.9520, L501.4021, L501.5200 ####[facility] [address] [place], [address] Sodium [Moles/Vol] 138 mmol/L Normal 133-145 [facility] Comment on above: Performed By: #### L 100.0100, L500.2500, L501.2450, L500.3400, L501.9520, L501.4021, L501.5200 ####[facility] [address] [place], [address] Urea nitrogen [Mass/Vol] 21 mg/dL High 4-19 [facility] Comment on above: Performed By: #### L 100.0100, L500.2500, L501.2450, L500.3400, L501.9520, L501.4021, L501.5200 ####[facility] [address] [place], [place], [phone] Basophil percentageOrdered B y: Inderjit Gilmore on 02-06-2025 Basophils/100 WBC (Bld) 0.8 % 0-1 [facility] Bilirubin Test strip Ql (U)O rdered By: Inderjit Gilmore on 02-06-2025 Bilirubin Ql (U) Negative Negative [facility] Bilirubin directOrdered By: Inderjit Gilmore on 02-06-2025 Bilirubin.direct [Mass/Vol] 0.17 mg/dL 0.00-0.30 [facility] Comment on above: Hemolysis present, R esults could be affected. Bilirubin, totalOrdered By: Inderjit Gilmore on 02-06-2025 Bilirubin [Mass/Vol] 0.51 mg/dL 0.00-1.30 [facility] CBC W/Diff, Automatedon 01-22 Absolute Lymph 1.68 X10 3/uL Normal 0.83-4.51 [facility] Comment on above: Performed By: #### L 100.0100, L500.2500, L501.2450, L500.3400, L501.9520, L501.4021, L501.5200 ####[facility] [address] [place], [address] Absolute Neut 8.7 X10 3/uL High 2.0-7.7 [facility] Comment on above: Performed By: #### L 100.0100, L500.2500, L501.2450, L500.3400, L501.9520, L501.4021, L501.5200 ####[facility] [address] [place], [address] Basophils/100 WBC (Bld) 0.8 % Normal 0-1 [facility] Comment on above: Performed By: #### L 100.0100, L500.2500, L501.2450, L500.3400, L501.9520, L501.4021, L501.5200 ####[facility] [address] [place], [address] Eosinophils/100 WBC (Bld) 1.7 % Normal 0-5 [facility] Comment on above: Performed By: #### L 100.0100, L500.2500, L501.2450, L500.3400, L501.9520, L501.4021, L501.5200 ####[facility] [address] [place], [address] Erythrocyte distribution width (RBC) [Ratio] 14.3 % Normal 11.6-14.6 [facility] Comment on above: Performed By: #### L 100.0100, L500.2500, L501.2450, L500.3400, L501.9520, L501.4021, L501.5200 ####[facility] [address] [place], [address] Hematocrit (Bld) [Volume fraction] 34.5 % Low 37-47 [facility] Comment on above: Performed By: #### L 100.0100, L500.2500, L501.2450, L500.3400, L501.9520, L501.4021, L501.5200 ####[facility] [address] [place], [address] Hemoglobin (Bld) [Mass/Vol] 11.9 g/dL Low 12.0-15.0 [facility] Comment on above: Performed By: #### L 100.0100, L500.2500, L501.2450, L500.3400, L501.9520, L501.4021, L501.5200 ####[facility] [address] [place], [address] IG% 0.500 Normal 0.0-0.9 [facility] Comment on above: Result Comment: IG% - Immature Granulocytes (promyelocytes, myelocytes andmetamyelocytes) > 1% indicates that a LEFT SHIFT is Present. Performed By: #### L 100.0100, L500.2500, L501.2450, L500.3400, L501.9520, L501.4021, L501.5200 ####[facility] [address] [place], [address] Lymphocytes/100 WBC (Bld) 14.7 % Low 19-41 [facility] Comment on above: Performed By: #### L 100.0100, L500.2500, L501.2450, L500.3400, L501.9520, L501.4021, L501.5200 ####[facility] [address] [place], [address] MCH (RBC) [Entitic mass] 32.2 pg High 27.0-32.0 [facility] Comment on above: Performed By: #### L 100.0100, L500.2500, L501.2450, L500.3400, L501.9520, L501.4021, L501.5200 ####[facility] [address] [place], [address] MCHC (RBC) [Mass/Vol] 34.5 g/dL Normal 32-36 [facility] Comment on above: Performed By: #### L 100.0100, L500.2500, L501.2450, L500.3400, L501.9520, L501.4021, L501.5200 ####[facility] [address] [place], [address] MCV (RBC) [Entitic vol] 93.2 fL Normal 81-99 [facility] Comment on above: Performed By: #### L 100.0100, L500.2500, L501.2450, L500.3400, L501.9520, L501.4021, L501.5200 ####[facility] [address] [place], [address] Monocytes/100 WBC (Bld) 6.0 % Normal 0-10 [place] Comment on above: Performed By: #### L 100.0100, L500.2500, L501.2450, L500.3400, L501.9520, L501.4021, L501.5200 ####[facility] [address] [place], [address] Neutrophils/100 WBC (Bld) 76.3 % High 47-70 [facility] Comment on above: Performed By: #### L 100.0100, L500.2500, L501.2450, L500.3400, L501.9520, L501.4021, L501.5200 ####[facility] [address] [place], [address] Nucleated RBC (Bld) [#/Vol] 0 10*3/uL Normal 0-5 [facility] Comment on above: Performed By: #### L 100.0100, L500.2500, L501.2450, L500.3400, L501.9520, L501.4021, L501.5200 ####[facility] [address] [place], [address] Platelet mean volume (Bld) [Entitic vol] 10.3 fL Normal 6.2-12.0 [facility] Comment on above: Performed By: #### L 100.0100, L500.2500, L501.2450, L500.3400, L501.9520, L501.4021, L501.5200 ####[facility] [address] [place], [address] Platelets (Bld) [#/Vol] 216 10*3/uL Normal 150-450 [facility] Comment on above: Performed By: #### L 100.0100, L500.2500, L501.2450, L500.3400, L501.9520, L501.4021, L501.5200 ####[facility] [address] [place], [address] RBC (Bld) [#/Vol] 3.70 10*6/uL Low 4.2-5.4 [facility] Comment on above: Performed By: #### L 100.0100, L500.2500, L501.2450, L500.3400, L501.9520, L501.4021, L501.5200 ####[facility] [address] [place], [address] RDW SD 48.8 fl High 35.1-43.9 [facility] Comment on above: Performed By: #### L 100.0100, L500.2500, L501.2450, L500.3400, L501.9520, L501.4021, L501.5200 ####[facility] [address] [place], [address] WBC (Bld) [#/Vol] 11.5 10*3/uL High 4.4-11.0 [facility] Comment on above: Performed By: #### L 100.0100, L500.2500, L501.2450, L500.3400, L501.9520, L501.4021, L501.5200 ####[facility] [address] [place], [address] CTA Chest W/WO Contraston CTA Chest W/WO Contrast Normal [facility] Carbon dioxide, total [Moles /volume] in Central venous bloodOrdered By: Inderjit Gilmore on 02-06-2025 CO2 [Moles/Vol] 19.9 mmol/L Low 21.0-32.0 [facility] Chest 1 View (Portable)on Chest 1 View (Portable) Normal [facility] Chloride assayOrdered By: Huy Gilmore on 02-06-2025 Chloride [Moles/Vol] 106 mmol/L 98-108 [facility] Emergency Department Summary on 02-06-2025 Emergency Department Summary Normal [facility] Eosinophil percentageOrdered By: Inderjit Gilmore on 02-06-2025 Eosinophils/100 WBC (Bld) 1.7 % 0-5 [facility] Epithelial cells.squamous LM Ql (Urine sed)Ordered By: Inderjit Gilmore on 02-06-2025 Epithelial cells.squamous LM.HPF (Urine sed) [#/Area] 0 /[HPF] 5-10 [facility] Erythrocyte distribution wid th (RBC) [Ratio]Ordered By: Inderjit Gilmore on 02-06-2025 Erythrocyte distribution width (RBC) [Entitic vol] 48.8 fL High 35.1-43.9 [facility] Erythrocyte distribution wid th ratioOrdered By: Inderjit Gilmore on 02-06-2025 Erythrocyte distribution width (RBC) [Ratio] 14.3 % 11.6-14.6 [facility] Erythrocyte distribution wid th standard deviationOrdered By: Inderjit Gilmore on 02-06-2025 Erythrocyte distribution width (RBC) [Ratio] 48.8 fl High 35.1-43.9 [facility] Estimation of creatinine christopher aranceOrdered By: Inderjit Gilmore on 02-06-2025 Estimated Creatinine Clearance Calc 50.77 ml/min 50-250 [facility] GFR/1.73 sq M.predicted dinesh g non-blacks MDRD (S/P/Bld) [Vol rate/Area]Ordered By: Inderjit Gilmore on 02-06-2025 Estimated GFR (MDRD) Non-Af Amer 58 Low >60 [facility] Comment on above: mL/min/1.73m2 CKD-EP I Creatinine Equation (2020) Glomerular filtration rate ( GFR) estimation/1.73 sq m using serum, plasma, or whole bOrdered By: Inderjit Gilmore on 02-06-2025 GFR/1.73 sq M.predicted among non-blacks MDRD (S/P/Bld) [Vol rate/Area] 58 mL/min/{1.73_m2} Low >60 [facility] Comment on above: mL/min/1.73m2 CKD-EP I Creatinine Equation (2020) Glucose Ql (U)Ordered By: Huy Gilmore on 02-06-2025 Urine Glucose (UA) Normal mg/dl Normal [facility] Hematocrit Auto (Bld) [Volum e fraction]Ordered By: Inderjit Gilmore on 02-06-2025 Hematocrit (Bld) [Volume fraction] 34.5 % Low 37-47 [facility] Hemoglobin measurementOrdere d By: Inderjit Gilmore on 02-06-2025 Hemoglobin (Bld) [Mass/Vol] 11.9 g/dL Low 12.0-15.0 [facility] Immature granulocytes/100 WB C Auto (Bld)Ordered By: Inderjit Gilmore on 02-06-2025 Immature granulocytes/100 WBC (Bld) 0.500 % 0.0-0.9 [facility] Comment on above: IG% - Immature Granu locytes (promyelocytes, myelocytes and metamyelocytes) > 1% indicates that a LEFT SHIFT is Present. Ketones Test strip Ql (U)Ord ered By: Inderjit Gilmore on 02-06-2025 Ketones Ql (U) Negative Negative [facility] L499.0042on 02-06-2025 Trop T High Sen 841 ng/L Invalid Interpretation Code <=14 [facility] Comment on above: Result Comment: Crit ical Result(s) Called at 02/06/2025-12:23 by Ashu Layton??Results read back by same. Performed By: #### L 499.0042 ####[facility] [address] [place], [address] L501.4021on 02-06-2025 Trop T High Sen 846 ng/L Invalid Interpretation Code <=14 [facility] Comment on above: Result Comment: Crit ical Result(s) Called at 1009: by: WEN CRANDALL.??Results read back by same. Performed By: #### L 100.0100, L500.2500, L501.2450, L500.3400, L501.9520, L501.4021, L501.5200 ####[facility] [address] [place], [place], [id number] Laboratory - Chemistry and C hemistry - challengeOrdered By: Inderjit Gilmore on 02-06-2025 AST [Catalytic activity/Vol] 26 U/L <32 [facility] Comment on above: Hemolysis present, R esults could be affected. Lipaseon 02-06-2025 Lipase [Catalytic activity/Vol] 30 U/L Normal 13-75 [facility] Comment on above: Result Comment: Plea se note:LIPASE revised reference range effective 23.New Lipase methodology. Expected to produce lower valuesthan the previous assay method.NEW Reference Range: 13 - 75 U/L Performed By: #### L 100.0100, L500.2500, L501.2450, L500.3400, L501.9520, L501.4021, L501.5200 ####[facility] [address] [place], [address] Lipase measurementOrdered By : Inderjit Gilmore on 02-06-2025 Lipase [Catalytic activity/Vol] 30 U/L 13-75 [facility] Comment on above: Please note:LIPASE r evised reference range effective 23. New Lipase methodology. Expected to produce lower values than the previous assay method. NEW Reference Range: 13 - 75 U/L Liver Profileon 02-06-2025 Albumin [Mass/Vol] 3.7 g/dL Normal 3.4-4.8 [facility] Comment on above: Performed By: #### L 100.0100, L500.2500, L501.2450, L500.3400, L501.9520, L501.4021, L501.5200 ####[facility] [address] [place], [place], [id number] ALK PHOS 74 U/L Normal 35-104 [facility] Comment on above: Performed By: #### L 100.0100, L500.2500, L501.2450, L500.3400, L501.9520, L501.4021, L501.5200 ####[facility] [address] [place], [place], [id number] ALT [Catalytic activity/Vol] 17 U/L Normal <=34 [facility] Comment on above: Performed By: #### L 100.0100, L500.2500, L501.2450, L500.3400, L501.9520, L501.4021, L501.5200 ####[facility] [address] [place], [place], [phone] AST [Catalytic activity/Vol] 26 U/L Normal <=31 [facility] Comment on above: Result Comment: Hemo lysis present, Results??could be affected.?? Performed By: #### L 100.0100, L500.2500, L501.2450, L500.3400, L501.9520, L501.4021, L501.5200 ####[facility] [address] [place], [address] Bilirubin [Mass/Vol] 0.51 mg/dL Normal 0.00-1.30 [facility] Comment on above: Performed By: #### L 100.0100, L500.2500, L501.2450, L500.3400, L501.9520, L501.4021, L501.5200 ####[facility] [address] [place], [address] Bilirubin.direct [Mass/Vol] 0.17 mg/dL Normal 0.00-0.30 [facility] Comment on above: Result Comment: Hemo lysis present, Results??could be affected.?? Performed By: #### L 100.0100, L500.2500, L501.2450, L500.3400, L501.9520, L501.4021, L501.5200 ####[facility] [address] [place], [address] Globulin (S) [Mass/Vol] 3.3 g/dL Normal 2.2-4.2 [facility] Comment on above: Performed By: #### L 100.0100, L500.2500, L501.2450, L500.3400, L501.9520, L501.4021, L501.5200 ####[facility] [address] [place], [address] T PROT 6.9 g/dL Normal 5.9-8.4 [facility] Comment on above: Performed By: #### L 100.0100, L500.2500, L501.2450, L500.3400, L501.9520, L501.4021, L501.5200 ####[facility] [address] [place], [address] Lymphocytes Auto (Unsp spec) [#/Vol]Ordered By: Inderjit Gilmore on 02-06-2025 Lymphocytes (Bld) [#/Vol] 1.68 10*3/uL 0.83-4.51 [facility] Lymphocytes/100 WBC Auto (Un sp spec)Ordered By: Inderjit Gilmore on 02-06-2025 Lymphocytes/100 WBC (Bld) 14.7 % Low 19-41 [facility] MCV (mean corpuscular volume ) determinationOrdered By: Inderjit Gilmore on 02-06-2025 MCV (RBC) [Entitic vol] 93.2 fL 81-99 [facility] Magnesiumon 02-06-2025 Magnesium [Mass/Vol] 2.1 mg/dL Normal 1.5-2.2 [facility] Comment on above: Performed By: #### L 100.0100, L500.2500, L501.2450, L500.3400, L501.9520, L501.4021, L501.5200 ####[facility] [address] [place], [place], [id number] Magnesium (Unsp spec) [Mass/ Vol]Ordered By: Inderjit Gilmore on 02-06-2025 Magnesium [Mass/Vol] 2.1 mg/dL 1.5-2.2 [facility] Magnesium measurement (mass/ volume)Ordered By: Inderjit Gilmore on 02-06-2025 Magnesium (Unsp spec) [Mass/Vol] 2.1 mg/dL 1.5-2.2 [facility] Mean corpuscular hemoglobin (MCH) determinationOrdered By: Inderjit Gilmore on 02-06-2025 MCH (RBC) [Entitic mass] 32.2 pg High 27.0-32.0 [facility] Mean corpuscular hemoglobin concentration (MCHC) determinationOrdered By: Inderjit Gilmore on 02-06-2025 MCHC (RBC) [Mass/Vol] 34.5 g/dL 32-36 [facility] Mean platelet volume determi nationOrdered By: Inderjit Gilmore on 02-06-2025 Platelet mean volume (Bld) [Entitic vol] 10.3 fL 6.2-12.0 [facility] Microscopic analysis of urin e for red blood cells (RBC)Ordered By: Inderjit Gilmore on 02-06-2025 Microscopic analysis of urine for red blood cells (RBC) 0-5 SEEN /hpf 0-5 [facility] Urine RBC 0-5 SEEN /hpf 0-5 [facility] Monocyte percentageOrdered B y: Inderjit Gilmore on 02-06-2025 Monocytes/100 WBC (Bld) 6.0 % 0-10 [facility] Mucus LM Ql (Urine sed)Order ed By: Inderjit Gilmore on 02-06-2025 Mucus Ql (Urine sed) 0 SEEN /hpf [facility] Neutrophil percentageOrdered By: Inderjit Gilmore on 02-06-2025 Neutrophils/100 WBC (Bld) 76.3 % High 47-70 [facility] Nitrite Test strip Ql (U)Ord ered By: Inderjit Gilmore on 02-06-2025 Nitrite Ql (U) Negative Negative [facility] No Panel InformationOrdered By: Inderjit Gilmore on 02-06-2025 26 U/L <32 [facility] Nucleated red blood cell per centageOrdered By: Inderjit Gilmore on 02-06-2025 Nucleated RBC/100 WBC (Bld) [Ratio] 0 % 0-5 [facility] Platelet countOrdered By: Huy Gilmore on 02-06-2025 Platelets (Bld) [#/Vol] 216 10*3/uL 150-450 [facility] Potassium (Unsp spec) [Mass/ Vol]Ordered By: Inderjit Gilmore on 02-06-2025 Potassium [Moles/Vol] 4.6 mmol/L 3.3-5.1 [facility] Comment on above: Hemolysis present, R esults could be affected. Potassium measurement (mass/ volume)Ordered By: Inderjit Gilmore on 02-06-2025 Potassium (Unsp spec) [Mass/Vol] 4.6 mmol/L 3.3-5.1 [facility] Comment on above: Hemolysis present, R esults could be affected. Protein Test strip Ql (U)Ord ered By: Inderjit Gilmore on 02-06-2025 Protein Ql (U) 30 mg/dl High Negative [facility] RBC Auto (Bld) [#/Vol]Ordere d By: Inderjit Gilmore on 02-06-2025 RBC (Bld) [#/Vol] 3.70 10*6/uL Low 4.2-5.4 [facility] Serum creatinine measurement (mass/volume)Ordered By: Inderjit Gilmore on 02-06-2025 Creatinine [Mass/Vol] 1.06 mg/dL 0.70-1.20 [facility] Serum globulin measurementOr dered By: Inderjit Gilmore on 02-06-2025 Globulin (S) [Mass/Vol] 3.3 g/dL 2.2-4.2 [facility] Serum glucose measurement (m ass/volume)Ordered By: Inderjit Gilmore on 02-06-2025 Glucose [Mass/Vol] 110 mg/dL High 70-99 [facility] Serum or plasma alanine tovar otransferase (ALT) measurementOrdered By: Inderjit Gilmore on 02-06-2025 ALT [Catalytic activity/Vol] 17 U/L <35 [facility] Serum or plasma albumin rosalina urement (mass/volume)Ordered By: Inderjit Gilmore on 02-06-2025 Albumin [Mass/Vol] 3.7 g/dL 3.4-4.8 [facility] Serum or plasma alkaline blanche sphatase measurementOrdered By: Inderjit Gilmore on 02-06-2025 ALP [Catalytic activity/Vol] 74 U/L 35-104 [facility] Serum or plasma calcium rosalina urement (mass/volume)Ordered By: Inderjit Gilmore on 02-06-2025 Calcium [Mass/Vol] 9.4 mg/dL 7.6-11.0 [facility] Serum or plasma urea nitroge n measurement (mass/volume)Ordered By: Inderjit Gilmore on 02-06-2025 Urea nitrogen [Mass/Vol] 21 mg/dL High 4-19 [facility] Sodium levelOrdered By: Marcin Gilmore on 02-06-2025 Sodium [Moles/Vol] 138 mmol/L 133-145 [facility] Squamous epithelial cells de tection in urine sediment by light microscopyOrdered By: Inderjit Gilmore on 02-06-2025 Epithelial cells.squamous LM Ql (Urine sed) 0-5 SEEN /hpf 5-10 [facility] TSH DL <= 0.005 mIU/L QnOrde red By: Inderjit Gilmore on 02-06-2025 Thyroid Stimulating Hormone (TSH) 3.970 uIU/mL 0.300-4.200 [facility] TSH Qn 3.970 uIU/mL 0.300-4.200 [facility] Thyroid Stim Hormone (TSH)on 02-06-2025 TSH 3.970 uIU/mL Normal 0.300-4.200 [facility] Comment on above: Performed By: #### L 100.0100, L500.2500, L501.2450, L500.3400, L501.9520, L501.4021, L501.5200 ####[facility] [address] [place], [address] Total proteinOrdered By: Wallace Gilmore on 02-06-2025 Protein [Mass/Vol] 6.9 g/dL 5.9-8.4 [facility] Troponin T.cardiac High sens itivity method [Mass/Vol]Ordered By: Inderjit Gilmore on 02-06-2025 Troponin T High Sensitivity 2 Hour 841 ng/L High <14 [facility] Comment on above: Critical Result(s) C alled at 02/06/2025-12:23 by Ashu Layton Results read back by same. Troponin T High Sensitivity 846 ng/L High <14 [facility] Comment on above: Delta: 307 on -1108Critical Result(s) Called at 1009: by: WEN LOVE. Results read back by same. Troponin T.cardiac [Mass/vol ume] in Serum or Plasma by High sensitivity methodOrdered By: Inderjit Gilmore on 02-06-2025 Troponin T.cardiac High sensitivity method [Mass/Vol] 841 ng/L High <14 [facility] Comment on above: Critical Result(s) C alled at 02/06/2025-12:23 by Ashu Layton Results read back by same. Troponin T.cardiac High sensitivity method [Mass/Vol] 846 ng/L High <14 [facility] Comment on above: Delta: 307 on -1108Critical Result(s) Called at 1009: by: WEN QUIÑONES TO KATE. Results read back by same. Urinalysis, Completeon 02-06 EPI,SQUAMOUS 0-5 SEEN Normal 5-10 [facility] Comment on above: Order Comment: CLEAN CATCH Performed By: #### L [id number] ####[facility] [address] [place], [address] RBC 0-5 SEEN Normal 0-5 [facility] Comment on above: Order Comment: CLEAN CATCH Performed By: #### L [id number] ####[facility] [address] [place], [address] WBC 0-5 SEEN Normal 0-5 [facility] Comment on above: Order Comment: CLEAN CATCH Performed By: #### L [id number] ####[facility] [address] [facility] [address] BACTERIA 0 SEEN Normal None Seen [facility] Comment on above: Order Comment: CLEAN CATCH Performed By: #### L [id number] ####[facility] [address] [place], [address] Mucus Ql (Urine sed) 0 SEEN Normal [facility] Comment on above: Order Comment: CLEAN CATCH Performed By: #### L [id number] ####[facility] [address] [place], [address] Urine blood detectionOrdered By: Inderjit Gilmore on 02-06-2025 Urine Occult Blood 150 /ul High Negative [facility] Urine clarityOrdered By: Wallace Gilmore on 02-06-2025 Clarity (U) Clear Clear [facility] Urine color determinationOrd ered By: Inderjit Gilmore on 02-06-2025 Color (U) Straw Yellow [facility] Urine glucose detectionOrder ed By: Inderjit Gilmore on 02-06-2025 Glucose Ql (U) Normal mg/dl Normal [facility] Urine leukocyte esterase det ection by dipstickOrdered By: Inderjit Gilmore on 02-06-2025 Leukocyte esterase Test strip Ql (U) Negative Negative [facility] Urine pHOrdered By: Inderjit vilchis on 02-06-2025 pH (U) 7.0 [pH] 5.0 - 8.0 [facility] Urine sediment bacteria coun t by microscopy (number/high power field)Ordered By: Inderjit Gilmore on 02-06-2025 Bacteria LM.HPF (Urine sed) [#/Area] 0 /[HPF] None Seen [facility] Urine specific gravity measu rementOrdered By: Inderjit Gilmore on 02-06-2025 Specific gravity (U) [Rel density] 1.005 1.002-1.030 [facility] Urine urobilinogen measureme ntOrdered By: Inderjit Gilmore on 02-06-2025 Urobilinogen Ql (U) Normal mg/dl Normal [facility] Urobilinogen Ql (U)Ordered B y: Inderjit Gilmore on 02-06-2025 Urine Urobilinogen Normal mg/dl Normal [facility] White blood cell (WBC) count Ordered By: Inderjit Gilmore on 02-06-2025 WBC (Bld) [#/Vol] 11.5 10*3/uL High 4.4-11.0 [facility] White blood cell countOrdere d By: Inderjit Gilmore on 02-06-2025 Urine WBC 0-5 SEEN /hpf 0-5 [facility] White blood cell count 0-5 SEEN /hpf 0-5 [facility] 12 Lead EKGon 02-05-2025 12 Lead EKG Normal [facility] Anion gap in Serum or Plasma Ordered By: Adan Galindo on 02-05-2025 Anion gap [Moles/Vol] 10 mmol/L - [facility] BUN/creatinine ratioOrdered By: Adan Galindo on 02-05-2025 Urea nitrogen/Creatinine [Mass ratio] 17.6 mg/mg 10-20 [facility] Bilirubin, totalOrdered By: Adan Galindo on 02-05-2025 Bilirubin [Mass/Vol] 0.45 mg/dL 0.00-1.30 [facility] CBC-Complete Blood Cnt No Sarah borden 02-05-2025 Erythrocyte distribution width (RBC) [Ratio] 14.1 % Normal 11.6-14.6 [facility] Comment on above: Performed By: #### L 500.4050, L100.0500 ####[facility] [address] [place], [address] Hematocrit (Bld) [Volume fraction] 34.4 % Low 37-47 [facility] Comment on above: Performed By: #### L 500.4050, L100.0500 ####[facility] [address] [place], [address] Hemoglobin (Bld) [Mass/Vol] 11.4 g/dL Low 12.0-15.0 [facility] Comment on above: Performed By: #### L 500.4050, L100.0500 ####[facility] [address] [place], [address] MCH (RBC) [Entitic mass] 31.4 pg Normal 27.0-32.0 [facility] Comment on above: Performed By: #### L 500.4050, L100.0500 ####[facility] [address] [place], [address] MCHC (RBC) [Mass/Vol] 33.1 g/dL Normal 32-36 [facility] Comment on above: Performed By: #### L 500.4050, L100.0500 ####[facility] [address] [place], [address] MCV (RBC) [Entitic vol] 94.8 fL Normal 81-99 [place] Comment on above: Performed By: #### L 500.4050, L100.0500 ####[facility] [address] [place], [address] Platelet mean volume (Bld) [Entitic vol] 10.4 fL Normal 6.2-12.0 [facility] Comment on above: Performed By: #### L 500.4050, L100.0500 ####[facility] [address] [place], [address] Platelets (Bld) [#/Vol] 205 10*3/uL Normal 150-450 [facility] Comment on above: Performed By: #### L 500.4050, L100.0500 ####[facility] [address] [place], [address] RBC (Bld) [#/Vol] 3.63 10*6/uL Low 4.2-5.4 [facility] Comment on above: Performed By: #### L 500.4050, L100.0500 ####[facility] [address] [place], [address] RDW SD 48.9 fl High 35.1-43.9 [facility] Comment on above: Performed By: #### L 500.4050, L100.0500 ####[facility] [address] [place], [address] WBC (Bld) [#/Vol] 10.5 10*3/uL Normal 4.4-11.0 [facility] Comment on above: Performed By: #### L 500.4050, L100.0500 ####[facility] [address] [place], [address] Carbon dioxide, total [Moles /volume] in Central venous bloodOrdered By: Adan Galindo on 02-05-2025 CO2 [Moles/Vol] 22.1 mmol/L 21.0-32.0 [facility] Cardiac Cath Interventionon 02-05-2025 Cardiac Cath Intervention Normal [facility] Cardiac catheterization repo rtOrdered By: Adan Galindo on 02-05-2025 Cardiac catheterization study [facility] Imaging Services [address] [place] [address] Cardiac Cath Intervention MR#: [id number] Acct: [id number] Name: MILY LONG Rep #:[id number] : 1960 64 From: Adan padilla MD PCP: Dr. Florin Bailey, DO Status:ADM IN Patient Name: MILY LONG Study Date: 02/04/2025 Performing: Titus Galindo MD Ht: 67 inches 170.18 cm : 1960 Wt: 162.5 lbs 73.6 kg Age: 64 Gender: female BSA: 1.85 PROCEDURE(S) PERFORMED DC02-(30883)LHC/COR IC12-(03515/C9600)FREDDIE W/WO PTCA, SINGLE CORONARY ARTERY IC02-(18137)PTCA, EACH ADD'L CORONARY ART, SAME MAJOR CLINICAL [...] 100cm Guide Catheter Millard .014 190cm [employer] Straight Biotronik Orsiro [place] MR FREDDIE 2.5x40 Darius Sci EMERGE MR [...] 100cm Guide Catheter Millard .014 190cm [employer] Straight Darius Sci EMERGE MR 1.50x15 BALLOON [...] 02/05/2025 13:04:53 __ (more content not included)... [facility] Work Phone: [phone] Chloride assayOrdered By: Rose Galindo on 02-05-2025 Chloride [Moles/Vol] 106 mmol/L 98-108 [facility] Comprehensive Metabolic Prof ilon 02-05-2025 Albumin [Mass/Vol] 3.5 g/dL Normal 3.4-4.8 [facility] Comment on above: Performed By: #### L 500.4050, L100.0500 ####[facility] [address] [place], [address] Albumin/Globulin [Mass ratio] 1.3 {ratio} Normal 0.9-2.4 [facility] Comment on above: Performed By: #### L 500.4050, L100.0500 ####[facility] [address] [place], [address] ALK PHOS 68 U/L Normal 35-104 [facility] Comment on above: Performed By: #### L 500.4050, L100.0500 ####[facility] [address] [place], [address] ALT [Catalytic activity/Vol] 16 U/L Normal <=34 [facility] Comment on above: Performed By: #### L 500.4050, L100.0500 ####[facility] [address] [place], [address] AST [Catalytic activity/Vol] 34 U/L High <=31 [facility] Comment on above: Performed By: #### L 500.4050, L100.0500 ####[facility] [address] [place], [address] Bilirubin [Mass/Vol] 0.45 mg/dL Normal 0.00-1.30 [facility] Comment on above: Performed By: #### L 500.4050, L100.0500 ####[facility] [address] [place], [address] BUN/CRE 17.6 RATIO Normal 10-20 [facility] Comment on above: Performed By: #### L 500.4050, L100.0500 ####[facility] [address] [place], [address] Calcium [Mass/Vol] 9.0 mg/dL Normal 7.6-11.0 [facility] Comment on above: Performed By: #### L 500.4050, L100.0500 ####[facility] [address] [place], [address] Chloride [Moles/Vol] 106 mmol/L Normal 98-108 [facility] Comment on above: Performed By: #### L 500.4050, L100.0500 ####[facility] [address] [place], [address] CO2 [Moles/Vol] 22.1 mmol/L Normal 21.0-32.0 [facility] Comment on above: Performed By: #### L 500.4050, L100.0500 ####[facility] [address] [place], [address] Creatinine [Mass/Vol] 1.02 mg/dL Normal 0.70-1.20 [facility] Comment on above: Performed By: #### L 500.4050, L100.0500 ####[facility] [address] [place], [address] ECRCL 52.76 ml/min Normal 50-250 [facility] Comment on above: Performed By: #### L 500.4050, L100.0500 ####[facility] [address] [place], [address] GAP 10 Normal 5-15 [facility] Comment on above: Performed By: #### L 500.4050, L100.0500 ####[facility] [address] [place], [address] GFR/1.73 sq M.predicted among non-blacks MDRD (S/P/Bld) [Vol rate/Area] 61 mL/min/{1.73_m2} Normal >60 [facility] Comment on above: Result Comment: mL/m in/1.73m2 CKD-EPI Creatinine Equation (2020) Performed By: #### L 500.4050, L100.0500 ####[facility] [address] [place], [address] Globulin (S) [Mass/Vol] 2.8 g/dL Normal 2.2-4.2 [place] Comment on above: Performed By: #### L 500.4050, L100.0500 ####[facility] [address] [place], [address] Glucose [Mass/Vol] 92 mg/dL Normal 70-99 [facility] Comment on above: Performed By: #### L 500.4050, L100.0500 ####[facility] [address] [place], [address] Potassium [Moles/Vol] 4.3 mmol/L Normal 3.3-5.1 [facility] Comment on above: Performed By: #### L 500.4050, L100.0500 ####[facility] [address] [place], [address] Sodium [Moles/Vol] 139 mmol/L Normal 133-145 [facility] Comment on above: Performed By: #### L 500.4050, L100.0500 ####[facility] [address] [place], [address] T PROT 6.2 g/dL Normal 5.9-8.4 [facility] Comment on above: Performed By: #### L 500.4050, L100.0500 ####[facility] [address] [place], [address] Urea nitrogen [Mass/Vol] 18 mg/dL Normal 4-19 [facility] Comment on above: Performed By: #### L 500.4050, L100.0500 ####[facility] [address] [place], [address] Discharge Instructionon 01-22 Discharge Instruction Normal [facility] Electrocardiogram reportOrde red By: Deondre Leavitt on 02-05-2025 EKG study [facility] Cardiovascular Services [address] [place] [address] 12 Lead EKG 02/05/25 0505 MR#: [id number] Acct: [id number] Name: MILY LONG Rep #:[id number] : 1960 64 From: Deondre garcía MD Attending Dr: Dr. Estrella Hanna MD Status: ADM IN Ordering Dr: Adan Galindo MD ate: 02/05/25 Location: [facility] Sex: F C Admitted: 02/04/25 Test [...] DATA IS UNCONFIRMED Confirmed by Deondre Leavitt ([id number]), commercial production editor LISETTE PINEDA ([id number]) on :33:25 AM Referred By: Confirmed By: Deondre Leavitt 02/05/25 1133 Date _ Deondre Leavitt MD CC: Dr. Adan Galindo MD; Dr. Estrella Hanna MD; Dr. Florin Bailey DO~ Signed [facility] Work Phone: EKG study [facility] Cardiovascular Services [address] [place] [address] 12 Lead EKG 02/04/25 1239 MR#: [id number] Acct: [id number] Name: MILY LONG Rep #:[id number] : 1960 64 From: Deondre garcía MD Attending Dr: Dr. Estrella Hanna MD Status: ADM IN Ordering Dr: Orlando Abdi MD Date: 02/04/25 Location: [facility] Sex: F C Admitted: 02/04/25 Test [...] Abnormal ECG Confirmed by Deondre Leavitt ([id number]), commercial production editor LISETTE PINEDA ([id number]) on :27:29 AM Referred By: Confirmed By: Deondre Leavitt 02/05/25 1127 Date _ Deondre Leavitt MD CC: Dr. Orlando Abdi MD; Dr. Estrella Hanna MD; Dr. Florin Bailey DO ~ Signed [facility] Work Phone: [phone] EKG study [facility] Cardiovascular Services [address] [place] [address] 12 Lead EKG 02/04/25 1036 MR#: [id number] Acct: [id number] Name: MILY LONG Rep #:[id number] : 1960 64 From: Deondre garcía MD Attending Dr: Dr. Estrella Hanna MD Status: ADM IN Ordering Dr: Orlando Abdi MD Date: 02/04/25 Location: [facility] Sex: F C Admitted: 02/04/25 Test [...] reversed Abnormal ECG Confirmed by Deondre Leavitt ([id number]), commercial production editor LISETTE PINEDA ([id number]) on 1:26:29 AM Referred By: DEISY Confirmed By: Deondre Leavitt 02/05/25 1126 Date _ Deondre Leavitt MD CC: Dr. Orlando Abdi MD; Dr. Estrella Hanna MD; Dr. Florin Bailey, DO ~ Signed [facility] Work Phone: [phone] Erythrocyte distribution wid th (RBC) [Ratio]Ordered By: Adan Galindo on 02-05-2025 Erythrocyte distribution width (RBC) [Entitic vol] 48.9 fL High 35.1-43.9 [facility] Erythrocyte distribution wid th ratioOrdered By: Adan Galindo on 02-05-2025 Erythrocyte distribution width (RBC) [Ratio] 14.1 % 11.6-14.6 [facility] Erythrocyte distribution wid th standard deviationOrdered By: Adan Galindo on 02-05-2025 Erythrocyte distribution width (RBC) [Ratio] 48.9 fl High 35.1-43.9 [facility] Estimation of creatinine christopher aranceOrdered By: Adan Galindo on 02-05-2025 Estimated Creatinine Clearance Calc 52.76 ml/min 50-250 [facility] GFR/1.73 sq M.predicted dinesh g non-blacks MDRD (S/P/Bld) [Vol rate/Area]Ordered By: Adan Galindo on 02-05-2025 Estimated GFR (MDRD) Non-Af Amer 61 >60 [facility] Comment on above: mL/min/1.73m2 CKD-EP I Creatinine Equation (2020) Glomerular filtration rate ( GFR) estimation/1.73 sq m using serum, plasma, or whole bOrdered By: Adan Galindo on 02-05-2025 GFR/1.73 sq M.predicted among non-blacks MDRD (S/P/Bld) [Vol rate/Area] 61 mL/min/{1.73_m2} >60 [facility] Comment on above: mL/min/1.73m2 CKD-EP I Creatinine Equation (2020) Hematocrit Auto (Bld) [Volum e fraction]Ordered By: Adan Galindo on 02-05-2025 Hematocrit (Bld) [Volume fraction] 34.4 % Low 37-47 [facility] Hemoglobin measurementOrdere d By: Adan Galindo on 02-05-2025 Hemoglobin (Bld) [Mass/Vol] 11.4 g/dL Low 12.0-15.0 [facility] Laboratory - Chemistry and C hemistry - challengeOrdered By: Adan Galindo on 02-05-2025 AST [Catalytic activity/Vol] 34 U/L High <32 [facility] MCV (mean corpuscular volume ) determinationOrdered By: Adan Galindo on 02-05-2025 MCV (RBC) [Entitic vol] 94.8 fL 81-99 [facility] Mean corpuscular hemoglobin (MCH) determinationOrdered By: Adan Galindo 02-05-2025 MCH (RBC) [Entitic mass] 31.4 pg 27.0-32.0 [facility] Mean corpuscular hemoglobin concentration (MCHC) determinationOrdered By: Adan Galindo on 02-05-2025 MCHC (RBC) [Mass/Vol] 33.1 g/dL 32-36 [facility] Mean platelet volume determi nationOrdered By: Adan Galindo on 02-05-2025 Platelet mean volume (Bld) [Entitic vol] 10.4 fL 6.2-12.0 [facility] No Panel InformationOrdered By: Adan Galindo on 02-05-2025 34 U/L High <32 [facility] Platelet countOrdered By: Rose Galindo on 02-05-2025 Platelets (Bld) [#/Vol] 205 10*3/uL 150-450 [facility] Potassium (Unsp spec) [Mass/ Vol]Ordered By: Adan Galindo on 02-05-2025 Potassium [Moles/Vol] 4.3 mmol/L 3.3-5.1 [facility] Potassium measurement (mass/ volume)Ordered By: Adan Galindo on 02-05-2025 Potassium (Unsp spec) [Mass/Vol] 4.3 mmol/L 3.3-5.1 [facility] RBC Auto (Bld) [#/Vol]Ordere d By: Adan Galindo on 02-05-2025 RBC (Bld) [#/Vol] 3.63 10*6/uL Low 4.2-5.4 [facility] Serum creatinine measurement (mass/volume)Ordered By: Adan Galindo on 02-05-2025 Creatinine [Mass/Vol] 1.02 mg/dL 0.70-1.20 [facility] Serum globulin measurementOr dered By: Adan Galindo on 02-05-2025 Globulin (S) [Mass/Vol] 2.8 g/dL 2.2-4.2 [facility] Serum glucose measurement (m ass/volume)Ordered By: Adan Galindo on 02-05-2025 Glucose [Mass/Vol] 92 mg/dL 70-99 [facility] Serum or plasma alanine tovar otransferase (ALT) measurementOrdered By: Adan Galindo on 02-05-2025 ALT [Catalytic activity/Vol] 16 U/L <35 [facility] Serum or plasma albumin rosalina urement (mass/volume)Ordered By: Adan Galindo on 02-05-2025 Albumin [Mass/Vol] 3.5 g/dL 3.4-4.8 [facility] Serum or plasma albumin/glob ulin mass ratioOrdered By: Adan Galindo on 02-05-2025 Albumin/Globulin [Mass ratio] 1.3 {ratio} 0.9-2.4 [facility] Serum or plasma alkaline blanche sphatase measurementOrdered By: Adan Galindo on 02-05-2025 ALP [Catalytic activity/Vol] 68 U/L 35-104 [facility] Serum or plasma calcium rosalina urement (mass/volume)Ordered By: Adan Galindo on 02-05-2025 Calcium [Mass/Vol] 9.0 mg/dL 7.6-11.0 [facility] Serum or plasma urea nitroge n measurement (mass/volume)Ordered By: Adan Galindo on 02-05-2025 Urea nitrogen [Mass/Vol] 18 mg/dL 4-19 [facility] Sodium levelOrdered By: Amando Galindo on 02-05-2025 Sodium [Moles/Vol] 139 mmol/L 133-145 [facility] Total proteinOrdered By: Luigi Galindo on 02-05-2025 Protein [Mass/Vol] 6.2 g/dL 5.9-8.4 [facility] White blood cell (WBC) count Ordered By: Adan Galindo on 02-05-2025 WBC (Bld) [#/Vol] 10.5 10*3/uL 4.4-11.0 [facility] 12 Lead EKGon 02-04-2025 12 Lead EKG Normal [facility] Absolute lymphocyte countOrd ered By: Orlando Abdi on 02-04-2025 Lymphocytes Auto (Unsp spec) [#/Vol] 1.61 10*3/uL 0.83-4.51 [facility] Absolute neutrophil countOrd ered By: Orlando Abdi on 02-04-2025 Neutrophils (Bld) [#/Vol] 8.2 10*3/uL High 2.0-7.7 [facility] Activated partial thrombopla stin time (aPTT) in platelet poor plasma by coagulation aOrdered By: Adan Galindo on 02-04-2025 aPTT Coag (Bld) [Time] 46.4 s High 24.1-36.2 [facility] Comment on above: Performed By: #### L 300.4310 ####[facility] [address] [place], [address] aPTT Coag (PPP) [Time] 46.4 s High 24.1-36.2 [facility] Anion gap in Serum or Plasma Ordered By: Orlando Abdi on 02-04-2025 Anion gap [Moles/Vol] 12 mmol/L 5- [facility] Automated lymphocyte count a s percentage of total leukocytesOrdered By: Orlando Abdi on 02-04-2025 Lymphocytes/100 WBC Auto (Unsp spec) 15.1 % Low 19-41 [facility] BUN/creatinine ratioOrdered By: Orlando Abdi on 02-04-2025 Urea nitrogen/Creatinine [Mass ratio] 18.6 mg/mg 10- [facility] Basic Metabolic Profile (BMP )on 02-04-2025 BUN/CRE 18.6 RATIO Normal - [facility] Comment on above: Performed By: #### L 100.0100, L500.2500, L501.4021 ####[facility] [address] [place], [address] Calcium [Mass/Vol] 9.2 mg/dL Normal 7.6-11.0 [facility] Comment on above: Performed By: #### L 100.0100, L500.2500, L501.4021 ####[facility] [address] [place], [address] Chloride [Moles/Vol] 107 mmol/L Normal 98-108 [facility] Comment on above: Performed By: #### L 100.0100, L500.2500, L501.4021 ####[facility] [address] [place], [address] CO2 [Moles/Vol] 21.0 mmol/L Normal 21.0-32.0 [facility] Comment on above: Performed By: #### L 100.0100, L500.2500, L501.4021 ####[facility] [address] [place], [address] Creatinine [Mass/Vol] 1.01 mg/dL Normal 0.70-1.20 [facility] Comment on above: Performed By: #### L 100.0100, L500.2500, L501.4021 ####[facility] [address] [place], [address] ECRCL 53.28 ml/min Normal 50-250 [facility] Comment on above: Performed By: #### L 100.0100, L500.2500, L501.4021 ####[facility] [address] [place], [address] GAP 12 Normal 5-15 [facility] Comment on above: Performed By: #### L 100.0100, L500.2500, L501.4021 ####[facility] [address] [place], [address] GFR/1.73 sq M.predicted among non-blacks MDRD (S/P/Bld) [Vol rate/Area] 61 mL/min/{1.73_m2} Normal >60 [facility] Comment on above: Result Comment: mL/m in/1.73m2 CKD-EPI Creatinine Equation (2020) Performed By: #### L 100.0100, L500.2500, L501.4021 ####[facility] [address] [place], [address] Glucose [Mass/Vol] 105 mg/dL High 70-99 [facility] Comment on above: Performed By: #### L 100.0100, L500.2500, L501.4021 ####[facility] [address] [place], [address] Potassium [Moles/Vol] 4.1 mmol/L Normal 3.3-5.1 [facility] Comment on above: Result Comment: Hemo lysis present, Results??could be affected.?? Performed By: #### L 100.0100, L500.2500, L501.4021 ####[facility] [address] [place], [address] Sodium [Moles/Vol] 140 mmol/L Normal 133-145 [facility] Comment on above: Performed By: #### L 100.0100, L500.2500, L501.4021 ####[facility] [address] [place], [address] Urea nitrogen [Mass/Vol] 19 mg/dL Normal 4-19 [facility] Comment on above: Performed By: #### L 100.0100, L500.2500, L501.4021 ####[facility] [address] [place], [address] Basophil percentageOrdered B y: Orlando Abdi on 02-04-2025 Basophils/100 WBC (Bld) 0.9 % 0-1 [facility] CBC W/Diff, Automatedon 04- Absolute Lymph 1.61 X10 3/uL Normal 0.83-4.51 [facility] Comment on above: Performed By: #### L 100.0100, L500.2500, L501.4021 ####[facility] [address] [place], [address] Absolute Neut 8.2 X10 3/uL High 2.0-7.7 [facility] Comment on above: Performed By: #### L 100.0100, L500.2500, L501.4021 ####[facility] [address] [place], [address] Basophils/100 WBC (Bld) 0.9 % Normal 0-1 [facility] Comment on above: Performed By: #### L 100.0100, L500.2500, L501.4021 ####[facility] [address] [place], [address] Eosinophils/100 WBC (Bld) 1.5 % Normal 0-5 [facility] Comment on above: Performed By: #### L 100.0100, L500.2500, L501.4021 ####[facility] [address] [place], [address] Erythrocyte distribution width (RBC) [Ratio] 14.2 % Normal 11.6-14.6 [facility] Comment on above: Performed By: #### L 100.0100, L500.2500, L501.4021 ####[facility] [address] [place], [address] Hematocrit (Bld) [Volume fraction] 37.0 % Normal 37-47 [facility] Comment on above: Performed By: #### L 100.0100, L500.2500, L501.4021 ####[facility] [address] [place], [address] Hemoglobin (Bld) [Mass/Vol] 12.3 g/dL Normal 12.0-15.0 [facility] Comment on above: Performed By: #### L 100.0100, L500.2500, L501.4021 ####[facility] [address] [place], [address] IG% 0.500 Normal 0.0-0.9 [facility] Comment on above: Result Comment: IG% - Immature Granulocytes (promyelocytes, myelocytes andmetamyelocytes) > 1% indicates that a LEFT SHIFT is Present. Performed By: #### L 100.0100, L500.2500, L501.4021 ####[facility] [address] [place], [address] Lymphocytes/100 WBC (Bld) 15.1 % Low 19-41 [facility] Comment on above: Performed By: #### L 100.0100, L500.2500, L501.4021 ####[facility] [address] [place], [address] MCH (RBC) [Entitic mass] 31.8 pg Normal 27.0-32.0 [facility] Comment on above: Performed By: #### L 100.0100, L500.2500, L501.4021 ####[facility] [address] [place], [address] MCHC (RBC) [Mass/Vol] 33.2 g/dL Normal 32-36 [facility] Comment on above: Performed By: #### L 100.0100, L500.2500, L501.4021 ####[facility] [id number] [place], [address] MCV (RBC) [Entitic vol] 95.6 fL Normal 81-99 [facility] Comment on above: Performed By: #### L 100.0100, L500.2500, L501.4021 ####[facility] [id number] [place], [address] Monocytes/100 WBC (Bld) 4.9 % Normal 0-10 [facility] Comment on above: Performed By: #### L 100.0100, L500.2500, L501.4021 ####[facility] [id number] [place], [address] Neutrophils/100 WBC (Bld) 77.1 % High 47-70 [facility] Comment on above: Performed By: #### L 100.0100, L500.2500, L501.4021 ####[facility] [address] [place], [address] Nucleated RBC (Bld) [#/Vol] 0 10*3/uL Normal 0-5 [facility] Comment on above: Performed By: #### L 100.0100, L500.2500, L501.4021 ####[facility] [id number] [place], [address] Platelet mean volume (Bld) [Entitic vol] 9.9 fL Normal 6.2-12.0 [facility] Comment on above: Performed By: #### L 100.0100, L500.2500, L501.4021 ####[facility] [id number] [place], [address] Platelets (Bld) [#/Vol] 223 10*3/uL Normal 150-450 [facility] Comment on above: Performed By: #### L 100.0100, L500.2500, L501.4021 ####[facility] [id number] [place], [address] RBC (Bld) [#/Vol] 3.87 10*6/uL Low 4.2-5.4 [facility] Comment on above: Performed By: #### L 100.0100, L500.2500, L501.4021 ####[facility] [address] [place], [address] RDW SD 49.9 fl High 35.1-43.9 [facility] Comment on above: Performed By: #### L 100.0100, L500.2500, L501.4021 ####[facility] [address] [place], [address] WBC (Bld) [#/Vol] 10.7 10*3/uL Normal 4.4-11.0 [facility] Comment on above: Performed By: #### L 100.0100, L500.2500, L501.4021 ####[facility] [address] [place], [address] Carbon dioxide, total [Moles /volume] in Central venous bloodOrdered By: Orlando Abdi on 02-04-2025 CO2 [Moles/Vol] 21.0 mmol/L 21.0-32.0 [facility] Chest 1 View (Portable)on Chest 1 View (Portable) Normal [facility] Chloride assayOrdered By: Bobbi Abdi on 02-04-2025 Chloride [Moles/Vol] 107 mmol/L 98-108 [facility] Consultation - Cardiologyon 02-04-2025 Consultation - Cardiology Normal [facility] Emergency Department Summary on 02-04-2025 Emergency Department Summary Normal [facility] Eosinophil percentageOrdered By: Orlando Abdi on 02-04-2025 Eosinophils/100 WBC (Bld) 1.5 % 0-5 [facility] Erythrocyte distribution wid th (RBC) [Ratio]Ordered By: Orlando Abdi on 02-04-2025 Erythrocyte distribution width (RBC) [Entitic vol] 49.9 fL High 35.1-43.9 [facility] Erythrocyte distribution wid th ratioOrdered By: Orlando Abdi on 02-04-2025 Erythrocyte distribution width (RBC) [Ratio] 14.2 % 11.6-14.6 [facility] Estimation of creatinine christopher aranceOrdered By: Orlando Abdi on 02-04-2025 Estimated Creatinine Clearance Calc 53.28 ml/min 50-250 [facility] GFR/1.73 sq M.predicted dinesh g non-blacks MDRD (S/P/Bld) [Vol rate/Area]Ordered By: Orlando Abdi on 02-04-2025 Estimated GFR (MDRD) Non-Af Amer 61 >60 [facility] Comment on above: mL/min/1.73m2 CKD-EP I Creatinine Equation (2020) H AND P Exam - Hospitaliston 02-04-2025 H&P Exam - Hospitalist Normal [facility] Hematocrit Auto (Bld) [Volum e fraction]Ordered By: Orlando Abdi on 02-04-2025 Hematocrit (Bld) [Volume fraction] 37.0 % 37-47 [facility] Hemoglobin measurementOrdere d By: Orlando Abdi on 02-04-2025 Hemoglobin (Bld) [Mass/Vol] 12.3 g/dL 12.0-15.0 [facility] Immature granulocytes/100 WB C Auto (Bld)Ordered By: Orlando Abdi on 02-04-2025 Immature granulocytes/100 WBC (Bld) 0.500 % 0.0-0.9 [facility] Comment on above: IG% - Immature Granu locytes (promyelocytes, myelocytes and metamyelocytes) > 1% indicates that a LEFT SHIFT is Present. International normalized rat io (INR) calculationOrdered By: Orlandogema Abdi on 02-04-2025 INR Coag (Bld) [Relative time] 1.0 {INR} [facility] L499.0042on 02-04-2025 Trop T High Sen 346 ng/L Invalid Interpretation Code <=14 [facility] Comment on above: Result Comment: Crit ical Result(s) Called at 1355: by: WEN MONTAÑO. ??Results read back by same. Performed By: #### L 499.0042 ####[facility] [address] [place], [address] L499.0043on 02-04-2025 Trop T High Sen Normal <=14 [facility] Comment on above: Result Comment: OK T O CANCEL Performed By: #### L 499.0043 ####[facility] [address] [place], [address] L501.4021on 02-04-2025 Trop T High Sen 307 ng/L Invalid Interpretation Code <=14 [facility] Comment on above: Result Comment: Crit ical Result(s) Called at 1216 : by:??TPHILLIPS TOHEATHER JAYLEN Results read back by same. Performed By: #### L 100.0100, L500.2500, L501.4021 ####[facility] [address] [place], [address] Lymphocytes Auto (Unsp spec) [#/Vol]Ordered By: Orlando Abdi on 02-04-2025 Lymphocytes (Bld) [#/Vol] 1.61 10*3/uL 0.83-4.51 [facility] Lymphocytes/100 WBC Auto (Un sp spec)Ordered By: Orlando Abdi on 02-04-2025 Lymphocytes/100 WBC (Bld) 15.1 % Low 19-41 [facility] MCV (mean corpuscular volume ) determinationOrdered By: Orlando Abdi on 02-04-2025 MCV (RBC) [Entitic vol] 95.6 fL 81-99 [place] Mean corpuscular hemoglobin (MCH) determinationOrdered By: Orlandogema Abdi on 02-04-2025 MCH (RBC) [Entitic mass] 31.8 pg 27.0-32.0 [facility] Mean corpuscular hemoglobin concentration (MCHC) determinationOrdered By: Orlando Abdi on 02-04-2025 MCHC (RBC) [Mass/Vol] 33.2 g/dL 32-36 [facility] Mean platelet volume determi nationOrdered By: Orlando Abdi on 02-04-2025 Platelet mean volume (Bld) [Entitic vol] 9.9 fL 6.2-12.0 [facility] Monocyte percentageOrdered B y: Orlando Abdi on 02-04-2025 Monocytes/100 WBC (Bld) 4.9 % 0-10 [facility] Neutrophil percentageOrdered By: Orlando Abdi on 02-04-2025 Neutrophils/100 WBC (Bld) 77.1 % High 47-70 [facility] Nucleated red blood cell per centageOrdered By: Orlandogmea Abdi on 02-04-2025 Nucleated RBC/100 WBC (Bld) [Ratio] 0 % 0-5 [facility] Partial Thromboplast Timeon 02-04-2025 aPTT Coag (Bld) [Time] 26.4 s Normal 24.1-36.2 [facility] Comment on above: Performed By: #### L 300.4100, L300.7118 ####[facility] [address] [place], [address] Platelet countOrdered By: Bobbi Abdi on 02-04-2025 Platelets (Bld) [#/Vol] 223 10*3/uL 150-450 [facility] Potassium (Unsp spec) [Mass/ Vol]Ordered By: Orlando Abdi on 02-04-2025 Potassium [Moles/Vol] 4.1 mmol/L 3.3-5.1 [facility] Comment on above: Hemolysis present, R esults could be affected. Prothrombin Time w/INRon INR Coag (PPP) [Relative time] 1.0 {INR} Normal [facility] Comment on above: Performed By: #### L 300.3900, L300.4310 ####[facility] [address] [place], [address] PT Coag (PPP) [Time] 12.9 s Normal 11.7-14.9 [facility] Comment on above: Performed By: #### L 300.3900, L300.4310 ####[facility] [address] [place], [address] Prothrombin timeOrdered By: Orlando Abdi on 02-04-2025 PT Coag (PPP) [Time] 12.9 s 11.7-14.9 [facility] RBC Auto (Bld) [#/Vol]Ordere d By: Orlando Abdi on 02-04-2025 RBC (Bld) [#/Vol] 3.87 10*6/uL Low 4.2-5.4 [facility] Serum creatinine measurement (mass/volume)Ordered By: Orlando Abdi on 02-04-2025 Creatinine [Mass/Vol] 1.01 mg/dL 0.70-1.20 [facility] Serum glucose measurement (m ass/volume)Ordered By: Orlando Abdi on 02-04-2025 Glucose [Mass/Vol] 105 mg/dL High 70-99 [facility] Serum or plasma calcium rosalina urement (mass/volume)Ordered By: Orlando Abdi on 02-04-2025 Calcium [Mass/Vol] 9.2 mg/dL 7.6-11.0 [facility] Serum or plasma urea nitroge n measurement (mass/volume)Ordered By: Orlando Abdi on 02-04-2025 Urea nitrogen [Mass/Vol] 19 mg/dL 4-19 [facility] Sodium levelOrdered By: Henry Abdi on 02-04-2025 Sodium [Moles/Vol] 140 mmol/L 133-145 [facility] Troponin T.cardiac High sens itivity method [Mass/Vol]Ordered By: Orlando Abdi on 02-04-2025 Troponin T High Sensitivity 2 Hour 346 ng/L High <14 [facility] Comment on above: Critical Result(s) C alled at 1355: by: WEN CHAVEZ. Results read back by same. Troponin T High Sensitivity 307 ng/L High <14 [facility] Comment on above: Critical Result(s) C alled at 1216 : by: RADHA YORK Results read back by same. Troponin T.cardiac [Mass/vol ume] in Serum or Plasma by High sensitivity methodOrdered By: Orlando Abdi on 02-04-2025 Troponin T.cardiac High sensitivity method [Mass/Vol] 346 ng/L High <14 [facility] Comment on above: Critical Result(s) C alled at 1355: by: WEN CHAVEZ. Results read back by sergei. Troponin T.cardiac High sensitivity method [Mass/Vol] 307 ng/L High <14 [facility] Comment on above: Critical Result(s) C alled at 1216 : by: RADHA YORK Results read back by same. White blood cell (WBC) count Ordered By: Orlando Abdi on 02-04-2025 WBC (Bld) [#/Vol] 10.7 10*3/uL 4.4-11.0 [facility] aPTT Coag (PPP) [Time]Ordere d By: Orlando Abdi on 02-04-2025 aPTT Coag (Bld) [Time] 26.4 s 24.1-36.2 [facility] [address] Abd/Pelvis W/WO Contrasto n 01-24-2025 CT Abd/Pelvis W/WO Contrast Normal [facility] Cardiology Visit Reporton Cardiology Visit Report Normal [facility] APOBon 01-16-2025 Apolipoprotein B [Mass/Vol] 67 mg/dL Normal <90 [facility] Comment on above: Result Comment: Christina cifuentes < 90 Borderline High 90 - 99 High 100 - 130 Very High >130 ASCVD RISK THERAPEUTIC TARGET CATEGORY APO B (mg/dL) Very High Risk <80 (if extreme risk <70) High Risk <90 Moderate Risk <90 Performed At: [facility] [id number] Alonso Mackenzie MD Ph:[phone] Performed By: #### M ORPH, ANEU, ADIFF, CBC #### [place] [address] LIPOAon 01-15-2025 Lipoprotein a [Moles/Vol] 21.6 nmol/L Normal <75.0 [facility] Comment on above: Result Comment: Note : Values greater than or equal to 75.0 nmol/L may indicate an independent risk factor for CHD, but must be evaluated with caution when applied to non- populations due to the influence of genetic factors on Lp(a) across ethnicities. Performed At: [facility] [id number] Shaye Banks PhD Ph:[phone] Performed By: #### M ORPH, ANEU, ADIFF, CBC #### [place] [address] .Auto Diffon 01-14-2025 Basophil, Absolute 0.1 10 3/mcL Normal 0.0-0.2 [facility] Comment on above: Performed By: #### A MY, LIP, A1C, ADIFF, TSHR, CMP, CBC, LIPID, GFR, [id number], VIDH, 685324, ANEU #### [place] [id number] #### HCV1 #### [address] [address] Basophils/100 WBC (Bld) 1.2 % Normal 0.0-2.5 [facility] Comment on above: Performed By: #### A MY, LIP, A1C, ADIFF, TSHR, CMP, CBC, LIPID, GFR, [id number], VIDH, [id number], ANEU #### [address] [address] #### HCV1 #### [address] [address] Eosinophil, Absolute 0.2 10 3/mcL Normal 0.0-0.[address] [facility] Comment on above: Performed By: #### A MY, LIP, A1C, ADIFF, TSHR, CMP, CBC, LIPID, GFR, [id number], VIDH, 648423, ANEU #### [place] [address] #### HCV1 #### [address] [address] Eosinophils/100 WBC (Bld) 2.3 % Normal 0.0-7.0 [facility] Comment on above: Performed By: #### A MY, LIP, A1C, ADIFF, TSHR, CMP, CBC, LIPID, GFR, [id number], VIDH, 464815, ANEU #### [address] [address] #### HCV1 #### [address] [address] Lymphocyte, Absolute 1.8 10 3/mcL Normal 0.9-4.[address] [facility] Comment on above: Performed By: #### A MY, LIP, A1C, ADIFF, TSHR, CMP, CBC, LIPID, GFR, [id number], VIDH, 305884, ANEU #### [address] [address] #### HCV1 #### [address] [address] Lymphocytes/100 WBC (Bld) 19.1 % Low 20.0-40.0 [facility] Comment on above: Performed By: #### A MY, LIP, A1C, ADIFF, TSHR, CMP, CBC, LIPID, GFR, [id number], VIDH, 131919, ANEU #### [address] [address] #### HCV1 #### [address] [address] Monocyte, Absolute 0.4 10 3/mcL Normal 0.1-1.4 [facility] Comment on above: Performed By: #### A MY, LIP, A1C, ADIFF, TSHR, CMP, CBC, LIPID, GFR, [id number], VIDH, 756439, ANEU #### [address] [address] #### HCV1 #### [address] [address] Monocytes/100 WBC (Bld) 4.5 % Normal 2.0-13.0 [facility] Comment on above: Performed By: #### A MY, LIP, A1C, ADIFF, TSHR, CMP, CBC, LIPID, GFR, [id number], VIDH, 296619, ANEU #### [address] [address] #### HCV1 #### [address] [address] Neutrophils/100 WBC (Bld) 72.9 % Normal 50.0-75.0 [facility] Comment on above: Performed By: #### A MY, LIP, A1C, ADIFF, TSHR, CMP, CBC, LIPID, GFR, [id number], VIDH, 760080, ANEU #### [address] [address] #### HCV1 #### [address] [address] .GFRon 01-14-2025 Estimated Glomerular Filtration Rate 50 ml/min/1.73sqm Normal [facility] Comment on above: Result Comment: Stages [...] #### M ORPH, ANEU, ADIFF, CBC #### [address] [address] .NEUABSon 01-14-2025 Neutrophil, Absolute 6.8 10 3/mcL Normal 2.3-8.[address] [facility] Comment on above: Performed By: #### A MY, LIP, A1C, ADIFF, TSHR, CMP, CBC, LIPID, GFR, [id number], VIDH, 544857, ANEU #### [address] [address] #### HCV1 #### [place] [address] A1Con 01-14-2025 Glucose [Mass/Vol] 111 mg/dL Normal [facility] Comment on above: Result Comment: Araceli mated Average Glucose calculated by equation ((28.7xA1C)-46.7) Estimated average glucose (eAG) is a calculated value from Hemoglobin A1C and is sales and service representative of the average blood glucose level in the last 2-3 month period. Normal range: less than 114 mg/dL Performed By: #### M ORPH, ANEU, ADIFF, CBC #### [address] [address] HbA1c (Bld) [Mass fraction] 5.5 % Normal 4.3-6.4 [facility] Comment on above: Performed By: #### M ORPH, ANEU, ADIFF, CBC #### [place] [address] [place], [place] [address] AMYon 01-14-2025 Amylase [Catalytic activity/Vol] 45 U/L Normal 25-115 [facility] Comment on above: Performed By: #### A MY, LIP, A1C, ADIFF, TSHR, CMP, CBC, LIPID, GFR, [id number], VIDH, 805960, ANEU #### [address] [address] #### HCV1 #### [address] [address] CBCon 01-14-2025 Erythrocyte distribution width (RBC) [Ratio] 15.1 % Normal 11.5-15.5 [facility] Comment on above: Performed By: #### A MY, LIP, A1C, ADIFF, TSHR, CMP, CBC, LIPID, GFR, [id number], VIDH, 076240, ANEU #### [address] [address] #### HCV1 #### [address] [address] Hematocrit (Bld) [Volume fraction] 41.7 % Normal 34.0-46.0 [facility] Comment on above: Performed By: #### A MY, LIP, A1C, ADIFF, TSHR, CMP, CBC, LIPID, GFR, [id number], VIDH, 145091, ANEU #### [address] [address] #### HCV1 #### [address] [address] Hgb 14.1 G/dL Normal 12.0-16.0 [facility] Comment on above: Performed By: #### A MY, LIP, A1C, ADIFF, TSHR, CMP, CBC, LIPID, GFR, [id number], VIDH, 797118, ANEU #### [address] [address] #### HCV1 #### [address] [address] MCH (RBC) [Entitic mass] 31.9 pg Normal 27.0-33.0 [facility] Comment on above: Performed By: #### A MY, LIP, A1C, ADIFF, TSHR, CMP, CBC, LIPID, GFR, [id number], VIDH, 358106, ANEU #### [address] [address] #### HCV1 #### [address] [address] MCHC 33.9 G/dL Normal 32.0-36.0 [facility] Comment on above: Performed By: #### A MY, LIP, A1C, ADIFF, TSHR, CMP, CBC, LIPID, GFR, [id number], VIDH, 346884, ANEU #### [address] [address] #### HCV1 #### [place] [address] MCV (RBC) [Entitic vol] 94.1 fL Normal 80.0-99.0 [facility] Comment on above: Performed By: #### A MY, LIP, A1C, ADIFF, TSHR, CMP, CBC, LIPID, GFR, [id number], VIDH, 730103, ANEU #### [address] [address] #### HCV1 #### [place] [address] Platelet 250 10 3/mcL Normal 150-450 [facility] Comment on above: Performed By: #### A MY, LIP, A1C, ADIFF, TSHR, CMP, CBC, LIPID, GFR, [id number], VIDH, 033998, ANEU #### [address] [address] #### HCV1 #### [address] [address] Platelet mean volume (Bld) [Entitic vol] 7.9 fL Normal 6.6-10.5 [facility] Comment on above: Performed By: #### A MY, LIP, A1C, ADIFF, TSHR, CMP, CBC, LIPID, GFR, [id number], VIDH, 045205, ANEU #### [place] [address] #### HCV1 #### [address] [address] RBC 4.43 10 6/mcL Normal 4.10-5.30 [facility] Comment on above: Performed By: #### A MY, LIP, A1C, ADIFF, TSHR, CMP, CBC, LIPID, GFR, [id number], VIDH, 037536, ANEU #### [address] [address] #### HCV1 #### [place] [address] WBC 9.3 10 3/mcL Normal 4.5-10.8 [facility] Comment on above: Performed By: #### A MY, LIP, A1C, ADIFF, TSHR, CMP, CBC, LIPID, GFR, [id number], VIDH, 800680, ANEU #### [address] [address] #### HCV1 #### [place] [address] CMPon 01-14-2025 Albumin Level 4.1 G/dL Normal 3.4-4.8 [facility] Comment on above: Performed By: #### M ORPH, ANEU, ADIFF, CBC #### [address] [address] Albumin/Globulin [Mass ratio] 1.1 {ratio} Normal 1.1-2.5 [facility] Comment on above: Performed By: #### M ORPH, ANEU, ADIFF, CBC #### [address] [address] ALP [Catalytic activity/Vol] 87 U/L Normal 40-135 [facility] Comment on above: Performed By: #### M ORPH, ANEU, ADIFF, CBC #### [address] [address] ALT [Catalytic activity/Vol] 30 U/L Normal 14-59 [facility] Comment on above: Performed By: #### M ORPH, ANEU, ADIFF, CBC #### [address] [address] AST [Catalytic activity/Vol] 13 U/L Normal 10-40 [facility] Comment on above: Performed By: #### M ORPH, ANEU, ADIFF, CBC #### [address] [address] Bili Total 0.6 mg/dL Normal 0.2-1.0 [facility] Comment on above: Result Comment: Use of this assay is not recommended for patients undergoing treatment with eltrombopag due to the potential for falsely elevated results. Performed By: #### M ORPH, ANEU, ADIFF, CBC #### [place] [address] BUN/Creatinine Ratio 15 ratio Normal 7-27 [facility] Comment on above: Performed By: #### M ORPH, ANEU, ADIFF, CBC #### [address] [address] Calcium [Mass/Vol] 9.7 mg/dL Normal 8.4-10.2 [facility] Comment on above: Performed By: #### M ORPH, ANEU, ADIFF, CBC #### [address] [address] Chloride [Moles/Vol] 104 mmol/L Normal 98-107 [facility] Comment on above: Performed By: #### M ORPH, ANEU, ADIFF, CBC #### [address] [address] CO2 [Moles/Vol] 27 mmol/L Normal 23-31 [facility] Comment on above: Performed By: #### M ORPH, ANEU, ADIFF, CBC #### [address] [address] Creatinine [Mass/Vol] 1.19 mg/dL High 0.55-1.02 [facility] Comment on above: Result Comment: Test ing performed on Siemens Dimension EXL analyzer using a modified kinetic Sosa technique. Performed By: #### M ORPH, ANEU, ADIFF, CBC #### [address] [address] Electrolyte Balance 11.0 mEq/L Normal 4.0-15.0 [facility] Comment on above: Performed By: #### M KELIN CARMICHAEL ADIFF, CBC #### [address] [address] Globulin 3.6 G/dL Normal 1.5-3.8 [facility] Comment on above: Performed By: #### M KELIN CARMICHAEL ADIFF, CBC #### [address] [address] Glucose [Mass/Vol] 98 mg/dL Normal 80-115 [facility] Comment on above: Performed By: #### M KELIN CARMICHAEL ADIFF, CBC #### [address] [address] Potassium [Moles/Vol] 4.3 mmol/L Normal 3.5-5.1 [facility] Comment on above: Performed By: #### M KELIN CARMICHAEL ADIFF, CBC #### [address] [address] Sodium [Moles/Vol] 142 mmol/L Normal 136-145 [facility] Comment on above: Performed By: #### M KELIN CARMICHAEL ADIFF, CBC #### [address] [address] Total Protein 7.7 G/dL Normal 6.4-8.2 [facility] Comment on above: Performed By: #### M ORKELIN SCHILLING ADIFF, CBC #### [address] [address] Urea nitrogen [Mass/Vol] 18 mg/dL Normal 7-18 [facility] Comment on above: Performed By: #### M KELIN CARMICHAEL ADIFF, CBC #### [address] [address] HCVon 01-14-2025 Hep C Ab Non-Reactive Normal Non-Reactiv e [facility] Comment on above: Performed By: #### M KELIN CARMICHAEL ADIFF, CBC #### [address] [address] Hep C Ab Int Normal [facility] Comment on above: Result Comment: Nonr [...] #### M ORPH, ANEU, ADIFF, CBC #### [address] [address] LIPon 01-14-2025 Lipase Level 42 U/L Normal 16-77 [facility] Comment on above: Performed By: #### A MY, LIP, A1C, ADIFF, TSHR, CMP, CBC, LIPID, GFR, [id number], VIDH, 184427, ANEU #### [address] [address] #### HCV1 #### [place] [address] LIPIDon 01-14-2025 Cholesterol [Mass/Vol] 141 mg/dL Normal 0-[address] [facility] Comment on above: Result Comment: Chol esterol Reference Interval: Less than 200 Desirable 200-239 Borderline high risk 240 and above High risk Performed By: #### M ORPH, ANEU, ADIFF, CBC #### [address] [address] Cholesterol in HDL [Mass/Vol] 44 mg/dL Normal 40-60 [facility] Comment on above: Performed By: #### M ORPH, ANEU, ADIFF, CBC #### [address] [address] Cholesterol in LDL [Mass/Vol] 74 mg/dL Normal 0-130 [facility] Comment on above: Performed By: #### M ORPH, ANEU, ADIFF, CBC #### [address] [address] Triglyceride [Mass/Vol] 117 mg/dL Normal 0-150 [facility] Comment on above: Result Comment: Trig lyceride Reference Interval: Less than 150 Normal 150-199 Borderline high risk 200-499 High risk 500 or higher Very high risk Performed By: #### M ORKELIN SCHILLING ADIFF, CBC #### [address] [address] MALBRon 01-14-2025 U Creatinine 91.5 mg/dL Normal [facility] Comment on above: Performed By: #### M ORKELIN SCHILLING ADIFF, CBC #### [address] [address] U Microalb 9.9 mg/L Normal [facility] Comment on above: Performed By: #### M ORKELIN SCHILLING ADIFF, CBC #### [address] [address] U Ratio Alb/Cre 11 mg/G Normal 0-30 [facility] Comment on above: Performed By: #### M ORKELIN SCHILLING ADIFF, CBC #### [address] [address] TSHRon 01-14-2025 TSH Qn 1.87 m[IU]/L Normal 0.36-3.74 [facility] Comment on above: Performed By: #### M ORKELIN SCHILLING ADIFF, CBC #### [address] [address] VIDHon 01-14-2025 Vit. D 25-Hydroxy 31.0 ng/mL Normal [facility] Comment on above: Result Comment: Inte rpretive Values Based on Total 25(OH) Vitamin D: Deficient <20 ng/mL Insufficient 20 - <30 ng/mL Sufficient 30-100 ng/mL Performed By: #### M ORKELIN SCHILLING ADIFF, CBC #### [address] [address] Non-gynecologic cytology rep ortOrdered By: Trey Eduardo on 01-09-2025 Study report [facility] Other Phone: Cytology report Cyto stain D oc (Body fld)Ordered By: Roxanne Olivas on 01-08-2025 Miscellaneous Cytology SEE PATHOLOGY REPORT [facility] Comment on above: Specimen submitted t o Anatomical Pathology Department for testing. Cytology report of Body flui d Cyto stainOrdered By: Roxanne Olivas on 01-08-2025 Cytology report Cyto stain Doc (Body fld) SEE PATHOLOGY REPORT [facility] Comment on above: Specimen submitted t o Anatomical Pathology Department for testing. Cytology, Body Fluid / CSFon 01-08-2025 CYTOLOGY,BF/CSF SEE PATHOLOGY REPORT Normal [facility] Comment on above: Order Comment: URINE Result Comment: Spec imen submitted to Anatomical Pathology Department fortesting. Performed By: #### L 350.1000 ####[facility] [address] [place], [place], [address] Special Stain Group IIon Special Stain Group II Normal [facility] Comment on above: Performed By: #### P SSII ####[facility] [address] [place], [place], [address] Pulmonary Visit Reporton Pulmonary Visit Report Normal [facility] XR ESOPHOGRAM W/BARIUM TABLE Ton 12-13-2024 [...] 12/13/2024 12:00:00 PM Ordering Provider: TOM Donovan [facility] Absolute lymphocyte countOrd ered By: Jak Sheikh on 12-11-2024 Lymphocytes Auto (Unsp spec) [#/Vol] 1.90 10*3/uL 0.83-4.51 [facility] Absolute neutrophil countOrd ered By: Jak Sheikh on 12-11-2024 Neutrophils (Bld) [#/Vol] 5.4 10*3/uL 2.0-7.7 [facility] Automated lymphocyte count a s percentage of total leukocytesOrdered By: Jak Sheikh on 12-11-2024 Lymphocytes/100 WBC Auto (Unsp spec) 24.1 % 19-41 [facility] Basic Metabolic Profile (BMP )on 12-11-2024 BUN/CRE 16.1 RATIO Normal 10-20 [facility] Comment on above: Order Comment: 'TROP ' Serial specimen #1, #2 or #3: 1 Performed By: #### L 501.4020, L100.0100, L500.2500 ####[facility] [address] [place], [address] CA,Total 9.4 mg/dL Normal 8.5-10.1 [facility] Comment on above: Order Comment: 'TROP ' Serial specimen #1, #2 or #3: 1 Performed By: #### L [id number], L100.0100, L500.2500 ####[facility] [address] [place], [address] Chloride [Moles/Vol] 108 mmol/L High 98-107 [facility] Comment on above: Order Comment: 'TROP ' Serial specimen #1, #2 or #3: 1 Performed By: #### L [id number], L100.0100, L500.2500 ####[facility] [address] [place], [address] CO2 [Moles/Vol] 21.0 mmol/L Normal 21.0-32.0 [facility] Comment on above: Order Comment: 'TROP ' Serial specimen #1, #2 or #3: 1 Performed By: #### L 501.4020, L100.0100, L500.2500 ####[facility] [address] [place], [address] Creatinine [Mass/Vol] 1.18 mg/dL High 0.55-1.02 [facility] Comment on above: Order Comment: 'TROP ' Serial specimen #1, #2 or #3: 1 Result Comment: The validity of the calculated GFR GFRAA in patients over70 years has not been determined. Clinical correlation isessential. Performed By: #### L 501.4020, L100.0100, L500.2500 ####[facility] [address] [place], [address] ECRCL 49.98 ml/min Normal [facility] Comment on above: Order Comment: 'TROP ' Serial specimen #1, #2 or #3: 1 Performed By: #### L 501.4020, L100.0100, L500.2500 ####[facility] [address] [place], [address] EST GFR - AA 59 mL/min Low >60 [facility] Comment on above: Order Comment: 'TROP ' Serial specimen #1, #2 or #3: 1 Result Comment: Afri can Estonian GFR Calc Performed By: #### L 501.4020, L100.0100, L500.2500 ####[facility] [address] [place], [address] GAP 9 Normal 5-15 [facility] Comment on above: Order Comment: 'TROP ' Serial specimen #1, #2 or #3: 1 Performed By: #### L 501.4020, L100.0100, L500.2500 ####[facility] [address] [place], [address] GFR/1.73 sq M.predicted among non-blacks MDRD (S/P/Bld) [Vol rate/Area] 49 mL/min/{1.73_m2} Low >60 [facility] Comment on above: Order Comment: 'TROP ' Serial specimen #1, #2 or #3: 1 Result Comment: Non- GFR Calc Performed By: #### L 501.4020, L100.0100, L500.2500 ####[facility] [address] [place], [address] Glucose [Mass/Vol] 110 mg/dL High 74-106 [facility] Comment on above: Order Comment: 'TROP ' Serial specimen #1, #2 or #3: 1 Result Comment: Fast ing Glucose result from 100 to 125 mg/dLsuggests IMPAIRED HOMEOSTASIS per A.D.A. criteria. Performed By: #### L 501.4020, L100.0100, L500.2500 ####[facility] [address] [place], [address] Potassium [Moles/Vol] 3.9 mmol/L Normal 3.5-5.1 [facility] Comment on above: Order Comment: 'TROP ' Serial specimen #1, #2 or #3: 1 Performed By: #### L 501.4020, L100.0100, L500.2500 ####[facility] [address] [place], [address] Sodium [Moles/Vol] 138 mmol/L Normal 136-145 [facility] Comment on above: Order Comment: 'TROP ' Serial specimen #1, #2 or #3: 1 Performed By: #### L 501.4020, L100.0100, L500.2500 ####[facility] [address] [place], [address] Urea nitrogen [Mass/Vol] 19 mg/dL High 7-18 [facility] Comment on above: Order Comment: 'TROP ' Serial specimen #1, #2 or #3: 1 Performed By: #### L 501.4020, L100.0100, L500.2500 ####[facility] [address] [place], [address] Basophil percentageOrdered B y: Jak Sheikh on 12-11-2024 Basophils/100 WBC (Bld) 0.9 % 0-1 [facility] Blood urea nitrogen (BUN)/cr eatinine ratioOrdered By: Jak Sheikh on 12-11-2024 Urea nitrogen/Creatinine [Mass ratio] 16.1 mg/mg 10-20 [facility] CBC W/Diff, Automatedon 11-24 PLT EST A Normal ADEQ [facility] Comment on above: Performed By: #### L 501.4020, L100.0100, L500.2500 ####[facility] [address] [place], [address] REACTIVE LYMPH 1+ Normal [facility] Comment on above: Performed By: #### L 501.4020, L100.0100, L500.2500 ####[facility] [address] [place], [address] Carbon dioxide measurementOr dered By: Jak Sheikh on 12-11-2024 CO2 [Moles/Vol] 21.0 mmol/L 21.0-32.0 [facility] Chest PA and Lateralon 12-11 Chest PA and Lateral Normal [facility] Chloride measurementOrdered By: Jak Sheikh on 12-11-2024 Chloride [Moles/Vol] 108 mmol/L High 98-107 [facility] Emergency Department Summary on 12-11-2024 Emergency Department Summary Normal [facility] Eosinophil percentageOrdered By: Jak Sheikh on 12-11-2024 Eosinophils/100 WBC (Bld) 1.7 % 0-5 [facility] Erythrocyte distribution wid th ratioOrdered By: Jak Sheikh on 12-11-2024 Erythrocyte distribution width (RBC) [Ratio] 13.9 % 11.6-14.6 [facility] Erythrocyte distribution wid th standard deviationOrdered By: Jak Sheikh on 12-11-2024 Erythrocyte distribution width (RBC) [Entitic vol] 47.3 fL High 35.1-43.9 [facility] Erythrocyte distribution width (RBC) [Ratio] 47.3 fl High 35.1-43.9 [facility] Estimated glomerular filtrat ion rate (GFR) AmericanOrdered By: Jak Sheikh on 12-11-2024 Estimated GFR (MDRD) Amer 59 mL/min Low >60 [facility] Comment on above: GFR Calc Estimation of creatinine christopher aranceOrdered By: Jak Sheikh on 12-11-2024 Estimated Creatinine Clearance Calc 49.98 ml/min [facility] Glomerular filtration rate ( GFR) estimationOrdered By: Jak Sheikh on 12-11-2024 Estimated GFR (MDRD) Non-Af Amer 49 mL/min Low >60 [facility] Comment on above: Non- GFR Calc GFR/1.73 sq M.predicted among non-blacks MDRD (S/P/Bld) [Vol rate/Area] 49 mL/min/{1.73_m2} Low >60 [facility] Comment on above: Non- GFR Calc Glucose measurementOrdered B y: Jak Sheikh on 12-11-2024 Glucose [Mass/Vol] 110 mg/dL High 74-106 [facility] Comment on above: Fasting Glucose resu lt from 100 to 125 mg/dL suggests IMPAIRED HOMEOSTASIS per A.D.A. criteria. Hematocrit Auto (Bld) [Volum e fraction]Ordered By: Jak Sheikh on 12-11-2024 Hematocrit (Bld) [Volume fraction] 42.0 % 37-47 [facility] Hemoglobin measurementOrdere d By: Jak Sheikh on 12-11-2024 Hemoglobin (Bld) [Mass/Vol] 13.7 g/dL 12.0-15.0 [facility] Immature granulocytes/100 WB C Auto (Bld)Ordered By: Jak Sheikh on 12-11-2024 Immature granulocytes/100 WBC (Bld) 0.400 % 0.0-0.9 [facility] Comment on above: IG% - Immature Granu locytes (promyelocytes, myelocytes and metamyelocytes) > 1% indicates that a LEFT SHIFT is Present. L501.4020on 12-11-2024 TROPONIN-I HS 9 pg/mL Normal 3.0-54.0 [facility] Comment on above: Order Comment: 'TROP ' Serial specimen #1, #2 or #3: 1 Result Comment: Ash white Note: New Test Units and Gender Specific Reference Ranges. For more information see Policy Stat Procedure [place] High Sensitivity Troponin (TNIH) and attachments. Performed By: #### L 501.4020, L100.0100, L500.2500 ####[facility] [address] [place], [address] Lymphocytes Auto (Unsp spec) [#/Vol]Ordered By: Jak Sheikh on 12-11-2024 Lymphocytes (Bld) [#/Vol] 1.90 10*3/uL 0.83-4.51 [facility] Lymphocytes/100 WBC Auto (Un sp spec)Ordered By: Jak Sheikh on 12-11-2024 Lymphocytes/100 WBC (Bld) 24.1 % 19-41 [facility] MCV (mean corpuscular volume ) determinationOrdered By: Jak Sheikh on 12-11-2024 MCV (RBC) [Entitic vol] 93.1 fL 81-99 [place] Mean corpuscular hemoglobin (MCH) determinationOrdered By: Jak Sheikh on 12-11-2024 MCH (RBC) [Entitic mass] 30.4 pg 27.0-32.0 [facility] Mean corpuscular hemoglobin concentration (MCHC) determinationOrdered By: Jak Sheikh on 12-11-2024 MCHC (RBC) [Mass/Vol] 32.6 g/dL 32-36 [facility] Mean platelet volume determi nationOrdered By: Jak Sheikh on 12-11-2024 Platelet mean volume (Bld) [Entitic vol] 9.6 fL 6.2-12.0 [facility] Monocyte percentageOrdered B y: Jak Sheikh on 12-11-2024 Monocytes/100 WBC (Bld) 3.8 % 0-10 [facility] Neutrophil percentageOrdered By: Jak Sheikh on 12-11-2024 Neutrophils/100 WBC (Bld) 69.1 % 47-70 [facility] Nucleated red blood cell per centageOrdered By: Jak Sheikh on 12-11-2024 Nucleated RBC/100 WBC (Bld) [Ratio] 0 % 0-5 [facility] Platelet countOrdered By: Tayo Sheikh on 12-11-2024 Platelets (Bld) [#/Vol] 203 10*3/uL 150-450 [facility] Platelet estimateOrdered By: Jak Sheikh on 12-11-2024 Platelets LM Ql (Bld) A ADEQ [facility] Platelets LM Ql (Bld)Ordered By: Jak Sheikh on 12-11-2024 Platelet Estimate A [facility] Potassium measurementOrdered By: Jak Sheikh on 12-11-2024 Potassium [Moles/Vol] 3.9 mmol/L 3.5-5.1 [facility] RBC Auto (Bld) [#/Vol]Ordere d By: Jak Sheikh on 12-11-2024 RBC (Bld) [#/Vol] 4.51 10*6/uL 4.2-5.4 [facility] Reactive lymphocyte countOrd ered By: Jak Sheikh on 12-11-2024 Reactive Lymphocytes 1+ [facility] Serum anion gap measurementO rdered By: Jak Sheikh on 12-11-2024 Anion gap [Moles/Vol] 9 mmol/L 5-15 [facility] Serum or plasma calcium rosalina urement (mass/volume)Ordered By: Jak Sheikh on 12-11-2024 Calcium [Mass/Vol] 9.4 mg/dL 8.5-10.1 [facility] Serum or plasma creatinine m easurement (mass/volume)Ordered By: Jak Sheikh on 12-11-2024 Creatinine [Mass/Vol] 1.18 mg/dL High 0.55-1.02 [facility] Comment on above: The validity of the calculated GFR & GFRAA in patients over 70 years has not been determined. Clinical correlation is essential. Serum or plasma urea nitroge n measurement (mass/volume)Ordered By: Jak Sheikh on 12-11-2024 Urea nitrogen [Mass/Vol] 19 mg/dL High 7-18 [facility] Sodium levelOrdered By: Jak Sheikh on 12-11-2024 Sodium [Moles/Vol] 138 mmol/L 136-145 [facility] Troponin IOrdered By: Jak ordoñez on 12-11-2024 Troponin I 9 pg/mL 3.0-54.0 [facility] Comment on above: Please Note: New Camila t Units and Gender Specific Reference Ranges. For more information see Policy Stat Procedure [place] High Sensitivity Troponin (TNIH) and attachments. Troponin I High Sensitivity 9 pg/mL 3.0-54.0 [facility] Comment on above: Please Note: New Camila t Units and Gender Specific Reference Ranges. For more information see Policy Stat Procedure [place] High Sensitivity Troponin (TNIH) and attachments. White blood cell (WBC) count Ordered By: Jak Sheikh on 12-11-2024 WBC (Bld) [#/Vol] 7.9 10*3/uL 4.4-11.0 [facility] CEFUROXIME:SUSC:PT:ISOLATE:O RDQN:MICon 12-05-2024 Cefuroxime BHAVESH [Susc] 10,000 - 50,000 cf u/ml Escherichia coli [facility] Work Phone: Cefuroxime BHAVESH [Susc]on 11-24 Escherichia coli Escherichia coli [facility] Work Phone: No Panel Informationon 11-03 Culture Urine 10,000 - 50,000 cfu/ ml Mixed growth consistent with normal urogenital chilo. [facility] Work Phone: CR - History AND Physicalon 10-31-2024 CR - History & Physical Normal [facility] Cardiology Visit Reporton Cardiology Visit Report Normal [place] 12 Lead EKGon 10-11-2024 12 Lead EKG Normal [facility] Basic Metabolic Profile (BMP )on 10-11-2024 BUN/CRE 19.6 RATIO Normal 10-20 [facility] Comment on above: Performed By: #### L 100.0500, L500.2500 ####[facility] [address] [place], [place], [id number] CA,Total 9.0 mg/dL Normal 8.5-10.1 [facility] Comment on above: Performed By: #### L 100.0500, L500.2500 ####[facility] [address] [place], [address] Chloride [Moles/Vol] 110 mmol/L High 98-107 [facility] Comment on above: Performed By: #### L 100.0500, L500.2500 ####[facility] [address] [place], [address] CO2 [Moles/Vol] 24.0 mmol/L Normal 21.0-32.0 [facility] Comment on above: Performed By: #### L 100.0500, L500.2500 ####[facility] [address] [place], [address] Creatinine [Mass/Vol] 1.12 mg/dL High 0.55-1.02 [facility] Comment on above: Result Comment: The validity of the calculated GFR GFRAA in patients over70 years has not been determined. Clinical correlation isessential. Performed By: #### L 100.0500, L500.2500 ####[facility] [address] [place], [address] ECRCL 53.20 ml/min Normal [facility] Comment on above: Performed By: #### L 100.0500, L500.2500 ####[facility] [address] [place], [address] EST GFR - AA 63 mL/min Normal >60 [facility] Comment on above: Result Comment: Afri can Estonian GFR Calc Performed By: #### L 100.0500, L500.2500 ####[facility] [address] [place], [address] GAP 5 Normal 5-15 [facility] Comment on above: Performed By: #### L 100.0500, L500.2500 ####[facility] [address] [place], [address] GFR/1.73 sq M.predicted among non-blacks MDRD (S/P/Bld) [Vol rate/Area] 52 mL/min/{1.73_m2} Low >60 [facility] Comment on above: Result Comment: Non- GFR Calc Performed By: #### L 100.0500, L500.2500 ####[facility] [address] [place], [address] Glucose [Mass/Vol] 99 mg/dL Normal 74-106 [facility] Comment on above: Performed By: #### L 100.0500, L500.2500 ####[facility] [address] [place], [address] Potassium [Moles/Vol] 4.1 mmol/L Normal 3.5-5.1 [facility] Comment on above: Performed By: #### L 100.0500, L500.2500 ####[facility] [address] [place], [address] Sodium [Moles/Vol] 139 mmol/L Normal 136-145 [facility] Comment on above: Performed By: #### L 100.0500, L500.2500 ####[facility] [address] [place], [address] Urea nitrogen [Mass/Vol] 22 mg/dL High 7-18 [facility] Comment on above: Performed By: #### L 100.0500, L500.2500 ####[facility] [address] [place], [address] Blood urea nitrogen (BUN)/cr eatinine ratioOrdered By: Kraig Feliz on 10-11-2024 Urea nitrogen/Creatinine [Mass ratio] 19.6 mg/mg 10-20 [facility] CBC-Complete Blood Cnt No Di ffon 10-11-2024 Erythrocyte distribution width (RBC) [Ratio] 13.2 % Normal 11.6-14.6 [facility] Comment on above: Performed By: #### L 100.0500, L500.2500 ####[facility] [address] [place], [address] Hematocrit (Bld) [Volume fraction] 42.5 % Normal 37-47 [facility] Comment on above: Performed By: #### L 100.0500, L500.2500 ####[facility] [address] [place], [address] Hemoglobin (Bld) [Mass/Vol] 14.2 g/dL Normal 12.0-15.0 [facility] Comment on above: Performed By: #### L 100.0500, L500.2500 ####[facility] [address] [place], [address] MCH (RBC) [Entitic mass] 31.0 pg Normal 27.0-32.0 [facility] Comment on above: Performed By: #### L 100.0500, L500.2500 ####[facility] [address] [place], [address] MCHC (RBC) [Mass/Vol] 33.4 g/dL Normal 32-36 [facility] Comment on above: Performed By: #### L 100.0500, L500.2500 ####[facility] [address] [place], [address] MCV (RBC) [Entitic vol] 92.8 fL Normal 81-99 [facility] Comment on above: Performed By: #### L 100.0500, L500.2500 ####[facility] [address] [place], [address] Platelet mean volume (Bld) [Entitic vol] 9.7 fL Normal 6.2-12.0 [facility] Comment on above: Performed By: #### L 100.0500, L500.2500 ####[facility] [address] [place], [address] Platelets (Bld) [#/Vol] 224 10*3/uL Normal 150-450 [facility] Comment on above: Performed By: #### L 100.0500, L500.2500 ####[facility] [address] [place], [address] RBC (Bld) [#/Vol] 4.58 10*6/uL Normal 4.2-5.4 [facility] Comment on above: Performed By: #### L 100.0500, L500.2500 ####[facility] [address] [place], [address] RDW SD 44.4 fl High 35.1-43.9 [facility] Comment on above: Performed By: #### L 100.0500, L500.2500 ####[facility] [address] [place], [address] WBC (Bld) [#/Vol] 9.9 10*3/uL Normal 4.4-11.0 [facility] Comment on above: Performed By: #### L 100.0500, L500.2500 ####[facility] [address] [place], [address] Carbon dioxide measurementOr dered By: Kraig Feliz on 10-11-2024 CO2 [Moles/Vol] 24.0 mmol/L 21.0-32.0 [facility] Chloride measurementOrdered By: Kraig Feliz on 10-11-2024 Chloride [Moles/Vol] 110 mmol/L High 98-107 [facility] Discharge Instructionon 09-23 Discharge Instruction Normal [facility] Erythrocyte distribution wid th ratioOrdered By: Kraig Feliz on 10-11-2024 Erythrocyte distribution width (RBC) [Ratio] 13.2 % 11.6-14.6 [facility] Erythrocyte distribution wid th standard deviationOrdered By: Kraig Feliz on 10-11-2024 Erythrocyte distribution width (RBC) [Entitic vol] 44.4 fL High 35.1-43.9 [facility] Estimated glomerular filtrat ion rate (GFR) AmericanOrdered By: Kraig Feliz on 10-11-2024 Estimated GFR (MDRD) Amer 63 mL/min >60 [facility] Comment on above: GFR Calc Estimation of creatinine christopher aranceOrdered By: Kraig Feliz on 10-11-2024 Estimated Creatinine Clearance Calc 53.20 ml/min [facility] Glomerular filtration rate ( GFR) estimationOrdered By: Kraig Feliz on 10-11-2024 Estimated GFR (MDRD) Non-Af Amer 52 mL/min Low >60 [facility] Comment on above: Non- GFR Calc Glucose measurementOrdered B y: Kraig Feliz on 10-11-2024 Glucose [Mass/Vol] 99 mg/dL 74-106 [facility] Hematocrit Auto (Bld) [Volum e fraction]Ordered By: Kraig Feliz on 10-11-2024 Hematocrit (Bld) [Volume fraction] 42.5 % 37-47 [facility] Hemoglobin measurementOrdere d By: Kraig Feliz on 10-11-2024 Hemoglobin (Bld) [Mass/Vol] 14.2 g/dL 12.0-15.0 [facility] MCV (mean corpuscular volume ) determinationOrdered By: Kraig Feliz on 10-11-2024 MCV (RBC) [Entitic vol] 92.8 fL 81-99 [facility] Mean corpuscular hemoglobin (MCH) determinationOrdered By: Kraig Feliz on 10-11-2024 MCH (RBC) [Entitic mass] 31.0 pg 27.0-32.0 [facility] Mean corpuscular hemoglobin concentration (MCHC) determinationOrdered By: Kraig Feliz on 10-11-2024 MCHC (RBC) [Mass/Vol] 33.4 g/dL 32-36 [facility] Mean platelet volume determi nationOrdered By: Kraig Feliz on 10-11-2024 Platelet mean volume (Bld) [Entitic vol] 9.7 fL 6.2-12.0 [facility] Platelet countOrdered By: Curt Feliz on 10-11-2024 Platelets (Bld) [#/Vol] 224 10*3/uL 150-450 [facility] Potassium measurementOrdered By: Kraig Feliz on 10-11-2024 Potassium [Moles/Vol] 4.1 mmol/L 3.5-5.1 [facility] RBC Auto (Bld) [#/Vol]Ordere d By: Kraig Feliz on 10-11-2024 RBC (Bld) [#/Vol] 4.58 10*6/uL 4.2-5.4 [facility] Serum anion gap measurementO rdered By: Kraig Feliz on 10-11-2024 Anion gap [Moles/Vol] 5 mmol/L 5-15 [facility] Serum or plasma calcium rosalina urement (mass/volume)Ordered By: Kraig Feliz on 10-11-2024 Calcium [Mass/Vol] 9.0 mg/dL 8.5-10.1 [facility] Serum or plasma creatinine m easurement (mass/volume)Ordered By: Karig Feliz on 10-11-2024 Creatinine [Mass/Vol] 1.12 mg/dL High 0.55-1.02 [facility] Comment on above: The validity of the calculated GFR & GFRAA in patients over 70 years has not been determined. Clinical correlation is essential. Serum or plasma urea nitroge n measurement (mass/volume)Ordered By: Kraig Feliz on 10-11-2024 Urea nitrogen [Mass/Vol] 22 mg/dL High 7-18 [facility] Sodium levelOrdered By: Erick Feliz on 10-11-2024 Sodium [Moles/Vol] 139 mmol/L 136-145 [facility] White blood cell (WBC) count Ordered By: Kraig Feliz on 10-11-2024 WBC (Bld) [#/Vol] 9.9 10*3/uL 4.4-11.0 [facility] 12 Lead EKGon 10-10-2024 12 Lead EKG Normal [facility] Albumin to globulin ratioOrd ered By: Adan Galindo on 10-10-2024 Albumin/Globulin [Mass ratio] 0.9 {ratio} 0.9-2.4 [facility] Bilirubin, totalOrdered By: Adan Galindo on 10-10-2024 Bilirubin [Mass/Vol] 0.60 mg/dL 0.20-1.00 [facility] Comment on above: For patients on eltr ombopag therapy, use of Dimension [place] TBIL is not recommended. CBC-Complete Blood Cnt No Di ffon 10-10-2024 Erythrocyte distribution width (RBC) [Ratio] 13.2 % Normal 11.6-14.6 [facility] Comment on above: Performed By: #### L 500.4050, L501.9520, L500.4100, L100.0500 ####[facility] [address] [place], [address] Hematocrit (Bld) [Volume fraction] 39.8 % Normal 37-47 [facility] Comment on above: Performed By: #### L 500.4050, L501.9520, L500.4100, L100.0500 ####[facility] [address] [place], [address] Hemoglobin (Bld) [Mass/Vol] 13.6 g/dL Normal 12.0-15.0 [facility] Comment on above: Performed By: #### L 500.4050, L501.9520, L500.4100, L100.0500 ####[facility] [address] [place], [address] MCH (RBC) [Entitic mass] 31.6 pg Normal 27.0-32.0 [facility] Comment on above: Performed By: #### L 500.4050, L501.9520, L500.4100, L100.0500 ####[facility] [address] [place], [address] MCHC (RBC) [Mass/Vol] 34.2 g/dL Normal 32-36 [facility] Comment on above: Performed By: #### L 500.4050, L501.9520, L500.4100, L100.0500 ####[facility] [address] [place], [address] MCV (RBC) [Entitic vol] 92.3 fL Normal 81-99 [facility] Comment on above: Performed By: #### L 500.4050, L501.9520, L500.4100, L100.0500 ####[facility] [address] [place], [address] Platelet mean volume (Bld) [Entitic vol] 9.4 fL Normal 6.2-12.0 [facility] Comment on above: Performed By: #### L 500.4050, L501.9520, L500.4100, L100.0500 ####[facility] [address] [place], [address] Platelets (Bld) [#/Vol] 215 10*3/uL Normal 150-450 [facility] Comment on above: Performed By: #### L 500.4050, L501.9520, L500.4100, L100.0500 ####[facility] [address] [place], [address] RBC (Bld) [#/Vol] 4.31 10*6/uL Normal 4.2-5.4 [facility] Comment on above: Performed By: #### L 500.4050, L501.9520, L500.4100, L100.0500 ####[facility] [address] [place], [address] RDW SD 45.1 fl High 35.1-43.9 [facility] Comment on above: Performed By: #### L 500.4050, L501.9520, L500.4100, L100.0500 ####[facility] [address] [place], [address] WBC (Bld) [#/Vol] 11.7 10*3/uL High 4.4-11.0 [facility] Comment on above: Performed By: #### L 500.4050, L501.9520, L500.4100, L100.0500 ####[facility] [address] [place], [address] Cardiac Cath Interventionon 10-10-2024 Cardiac Cath Intervention Normal [facility] Comprehensive Metabolic Prof ilon 10-10-2024 Albumin [Mass/Vol] 3.2 g/dL Normal 3.2-5.0 [facility] Comment on above: Performed By: #### L 500.4050, L501.9520, L500.4100, L100.0500 ####[facility] [address] [place], [address] Albumin/Globulin [Mass ratio] 0.9 {ratio} Normal 0.9-2.4 [facility] Comment on above: Performed By: #### L 500.4050, L501.9520, L500.4100, L100.0500 ####[facility] [address] [place], [address] ALK P 60 U/L Normal 45-117 [facility] Comment on above: Performed By: #### L 500.4050, L501.9520, L500.4100, L100.0500 ####[facility] [address] [place], [address] ALT [Catalytic activity/Vol] 16 U/L Normal 13-56 [facility] Comment on above: Performed By: #### L 500.4050, L501.9520, L500.4100, L100.0500 ####[facility] [address] [place], [address] AST [Catalytic activity/Vol] 21 U/L Normal 15-37 [facility] Comment on above: Performed By: #### L 500.4050, L501.9520, L500.4100, L100.0500 ####[facility] [address] [place], [address] Bilirubin [Mass/Vol] 0.60 mg/dL Normal 0.20-1.00 [facility] Comment on above: Result Comment: For patients on eltrombopag therapy, use of Dimension [place] TBIL is not recommended. Performed By: #### L 500.4050, L501.9520, L500.4100, L100.0500 ####[facility] [address] [place], [address] BUN/CRE 15.7 RATIO Normal 10-20 [facility] Comment on above: Performed By: #### L 500.4050, L501.9520, L500.4100, L100.0500 ####[facility] [address] [place], [address] CA,Total 8.9 mg/dL Normal 8.5-10.1 [facility] Comment on above: Performed By: #### L 500.4050, L501.9520, L500.4100, L100.0500 ####[facility] [address] [place], [address] Chloride [Moles/Vol] 109 mmol/L High 98-107 [facility] Comment on above: Performed By: #### L 500.4050, L501.9520, L500.4100, L100.0500 ####[facility] [address] [place], [address] CO2 [Moles/Vol] 24.0 mmol/L Normal 21.0-32.0 [facility] Comment on above: Performed By: #### L 500.4050, L501.9520, L500.4100, L100.0500 ####[facility] [address] [place], [address] Creatinine [Mass/Vol] 1.02 mg/dL Normal 0.55-1.02 [facility] Comment on above: Result Comment: The validity of the calculated GFR GFRAA in patients over70 years has not been determined. Clinical correlation isessential. Performed By: #### L 500.4050, L501.9520, L500.4100, L100.0500 ####[facility] [address] [place], [address] ECRCL 58.27 ml/min Normal [facility] Comment on above: Performed By: #### L 500.4050, L501.9520, L500.4100, L100.0500 ####[facility] [address] [place], [address] EST GFR - AA 70 mL/min Normal >60 [facility] Comment on above: Result Comment: Afri can Estonian GFR Calc Performed By: #### L 500.4050, L501.9520, L500.4100, L100.0500 ####[facility] [address] [place], [address] GAP 6 Normal 5-15 [facility] Comment on above: Performed By: #### L 500.4050, L501.9520, L500.4100, L100.0500 ####[facility] [address] [place], [address] GFR/1.73 sq M.predicted among non-blacks MDRD (S/P/Bld) [Vol rate/Area] 58 mL/min/{1.73_m2} Low >60 [facility] Comment on above: Result Comment: Non- GFR Calc Performed By: #### L 500.4050, L501.9520, L500.4100, L100.0500 ####[facility] [address] [place], [address] Globulin (S) [Mass/Vol] 3.4 g/dL Normal 2.2-4.2 [place] Comment on above: Performed By: #### L 500.4050, L501.9520, L500.4100, L100.0500 ####[facility] [address] [place], [address] Glucose [Mass/Vol] 100 mg/dL Normal 74-106 [facility] Comment on above: Result Comment: Fast ing Glucose result from 100 to 125 mg/dLsuggests IMPAIRED HOMEOSTASIS per A.D.A. criteria. Performed By: #### L 500.4050, L501.9520, L500.4100, L100.0500 ####[facility] [address] [place], [address] Potassium [Moles/Vol] 4.0 mmol/L Normal 3.5-5.1 [facility] Comment on above: Performed By: #### L 500.4050, L501.9520, L500.4100, L100.0500 ####[facility] [address] [place], [address] Sodium [Moles/Vol] 138 mmol/L Normal 136-145 [facility] Comment on above: Performed By: #### L 500.4050, L501.9520, L500.4100, L100.0500 ####[facility] [address] [place], [address] T PROT 6.6 g/dL Normal 6.4-8.2 [facility] Comment on above: Performed By: #### L 500.4050, L501.9520, L500.4100, L100.0500 ####[facility] [address] [place], [address] Urea nitrogen [Mass/Vol] 16 mg/dL Normal 7-18 [facility] Comment on above: Performed By: #### L 500.4050, L501.9520, L500.4100, L100.0500 ####[facility] [address] [place], [address] Echo Completeon 10-10-2024 Echo Complete Normal [facility] High density lipoprotein (HD L) measurementOrdered By: Tawanna Holder on 10-10-2024 Cholesterol in HDL [Mass/Vol] 37 mg/dL Low >40 [facility] Comment on above: The drugs N-Acetylcy steine and Metamizole may falsely depress this assay. Reference Range HDL <40 mg/dL Low HDL Cholesterol HDL >or= 60 mg/dL High HDL Cholesterol Laboratory - Chemistry and C hemistry - challengeOrdered By: Adan Galindo on 10-10-2024 AST [Catalytic activity/Vol] 21 U/L 15-37 [facility] Lipid Profileon 10-10-2024 Cholesterol [Mass/Vol] 226 mg/dL High 200 [facility] Comment on above: Result Comment: <200 mg/dL Desirable 200-240 mg/dL Borderline >240 mg/dL High Risk Performed By: #### L 500.4050, L501.9520, L500.4100, L100.0500 ####[facility] [address] [place], [address] Cholesterol in HDL [Mass/Vol] 37 mg/dL Low [facility] Comment on above: Result Comment: The drugs N-Acetylcysteine and Metamizole may falselydepress this assay. Reference Range HDL <40 mg/dL Low HDL Cholesterol HDL >or= 60 mg/dL High HDL Cholesterol Performed By: #### L 500.4050, L501.9520, L500.4100, L100.0500 ####[facility] [address] [place], [address] Cholesterol in LDL [Mass/Vol] 160 mg/dL High 0-130 [facility] Comment on above: Performed By: #### L 500.4050, L501.9520, L500.4100, L100.0500 ####[facility] [address] [place], [address] Cholesterol in VLDL [Mass/Vol] 29 mg/dL Normal 5-40 [facility] Comment on above: Performed By: #### L 500.4050, L501.9520, L500.4100, L100.0500 ####[facility] [address] [place], [address] Triglyceride [Mass/Vol] 146 mg/dL Normal [facility] Comment on above: Result Comment: The drugs N-Acetylcysteine and Metamizole may falselydepress this assay.Serum Triglycerides Reference Interval Normal <150 mg/dL Borderline high 150 - 199 mg/dL High 200 - 499 mg/dL Very High > or = 500 mg/dL Performed By: #### L 500.4050, L501.9520, L500.4100, L100.0500 ####[facility] [address] [place], [place], [address] Low density lipoprotein (LDL ) cholesterol measurementOrdered By: Tawanna Holder on 10-10-2024 Cholesterol in LDL [Mass/Vol] 160 mg/dL High 0-130 [facility] MR/QUALITYon 10-10-2024 MR/QUALITY Normal [facility] Magnesiumon 10-10-2024 Magnesium [Mass/Vol] 2.2 mg/dL Normal 1.6-2.6 [facility] Comment on above: Order Comment: Comme nts: off of am bloodwork Performed By: #### L 501.5200 ####[facility] [address] [place], [place], [address] Magnesium measurementOrdered By: Kraig Feliz on 10-10-2024 Magnesium [Mass/Vol] 2.2 mg/dL 1.6-2.6 [facility] Serum globulin measurementOr dered By: Adan Galindo on 10-10-2024 Globulin (S) [Mass/Vol] 3.4 g/dL 2.2-4.2 [place] Serum or plasma alanine tovar otransferase (ALT) measurementOrdered By: Adan Galindo on 10-10-2024 ALT [Catalytic activity/Vol] 16 U/L 13-56 [facility] Serum or plasma albumin rosalina urement (mass/volume)Ordered By: Adan Galindo on 10-10-2024 Albumin [Mass/Vol] 3.2 g/dL 3.2-5.0 [facility] Serum or plasma alkaline blanche sphatase measurementOrdered By: Adan Galindo on 10-10-2024 ALP [Catalytic activity/Vol] 60 U/L 45-117 [facility] Serum or plasma cholesterol measurement (mass/volume)Ordered By: Tawanna Holder on 10-10-2024 Cholesterol [Mass/Vol] 226 mg/dL High <200 [facility] Comment on above: <200 mg/dL Desirable 200-240 mg/dL Borderline >240 mg/dL High Risk TSH QnOrdered By: Tawanna may on 10-10-2024 Thyroid Stimulating Hormone (TSH) 1.360 uIU/mL 0.358-3.740 [facility] Thyroid Stim Hormone (TSH)on 10-10-2024 TSH 1.360 uIU/mL Normal 0.358-3.740 [facility] Comment on above: Performed By: #### L 500.4050, L501.9520, L500.4100, L100.0500 ####[facility] [address] [place], [place], [id number] Total proteinOrdered By: Luigi Galindo on 10-10-2024 Protein [Mass/Vol] 6.6 g/dL 6.4-8.2 [facility] Triglycerides measurementOrd ered By: Tawanna Holder on 10-10-2024 Triglyceride [Mass/Vol] 146 mg/dL <199 [facility] Comment on above: The drugs N-Acetylcy steine and Metamizole may falsely depress this assay.Serum Triglycerides Reference Interval Normal <150 mg/dL Borderline high 150 - 199 mg/dL High 200 - 499 mg/dL Very High > or = 500 mg/dL Very low density lipoprotein (VLDL) cholesterol measurementOrdered By: Tawanna Holder on 10-10-2024 VLDL Cholesterol 29 mg/dL 5-40 [facility] 12 Lead EKGon 10-09-2024 12 Lead EKG Normal [facility] 12 Lead EKG Normal [facility] Absolute neutrophil countOrd ered By: Piyush Sanchez on 10-09-2024 Neutrophils (Bld) [#/Vol] 6.7 10*3/uL 2.0-7.7 [facility] Basic Metabolic Profile (BMP )on 10-09-2024 BUN/CRE 14.4 RATIO Normal 10-20 [facility] Comment on above: Order Comment: 'TROP ' Serial specimen #1, #2 or #3: 1 Performed By: #### L 300.3900, L501.4020, L300.4310, L100.0100, L500.2500 ####[facility] [address] [place], [address] CA,Total 9.7 mg/dL Normal 8.5-10.1 [facility] Comment on above: Order Comment: 'TROP ' Serial specimen #1, #2 or #3: 1 Performed By: #### L 300.3900, L501.4020, L300.4310, L100.0100, L500.2500 ####[facility] [address] [place], [address] Chloride [Moles/Vol] 106 mmol/L Normal 98-107 [facility] Comment on above: Order Comment: 'TROP ' Serial specimen #1, #2 or #3: 1 Performed By: #### L 300.3900, L501.4020, L300.4310, L100.0100, L500.2500 ####[facility] [address] [place], [address] CO2 [Moles/Vol] 26.0 mmol/L Normal 21.0-32.0 [facility] Comment on above: Order Comment: 'TROP ' Serial specimen #1, #2 or #3: 1 Performed By: #### L 300.3900, L501.4020, L300.4310, L100.0100, L500.2500 ####[facility] [address] [place], [address] Creatinine [Mass/Vol] 1.25 mg/dL High 0.55-1.02 [facility] Comment on above: Order Comment: 'TROP ' Serial specimen #1, #2 or #3: 1 Result Comment: The validity of the calculated GFR GFRAA in patients over70 years has not been determined. Clinical correlation isessential. Performed By: #### L 300.3900, L501.4020, L300.4310, L100.0100, L500.2500 ####[facility] [address] [place], [address] ECRCL 47.64 ml/min Normal [facility] Comment on above: Order Comment: 'TROP ' Serial specimen #1, #2 or #3: 1 Performed By: #### L 300.3900, L501.4020, L300.4310, L100.0100, L500.2500 ####[facility] [address] [place], [address] EST GFR - AA 55 mL/min Low >60 [facility] Comment on above: Order Comment: 'TROP ' Serial specimen #1, #2 or #3: 1 Result Comment: Afri can Estonian GFR Calc Performed By: #### L 300.3900, L501.4020, L300.4310, L100.0100, L500.2500 ####[facility] [address] [place], [address] GAP 6 Normal 5-15 [facility] Comment on above: Order Comment: 'TROP ' Serial specimen #1, #2 or #3: 1 Performed By: #### L 300.3900, L501.4020, L300.4310, L100.0100, L500.2500 ####[facility] [address] [place], [address] GFR/1.73 sq M.predicted among non-blacks MDRD (S/P/Bld) [Vol rate/Area] 46 mL/min/{1.73_m2} Low >60 [facility] Comment on above: Order Comment: 'TROP ' Serial specimen #1, #2 or #3: 1 Result Comment: Non- GFR Calc Performed By: #### L 300.3900, L501.4020, L300.4310, L100.0100, L500.2500 ####[facility] [address] [place], [address] Glucose [Mass/Vol] 136 mg/dL High 74-106 [facility] Comment on above: Order Comment: 'TROP ' Serial specimen #1, #2 or #3: 1 Result Comment: Fast ing Glucose result greater than or equal to 126 mg/dLsuggests DIABETES MELLITUS per A.D.A. criteria. Performed By: #### L 300.3900, L501.4020, L300.4310, L100.0100, L500.2500 ####[facility] [address] [place], [address] Potassium [Moles/Vol] 3.7 mmol/L Normal 3.5-5.1 [facility] Comment on above: Order Comment: 'TROP ' Serial specimen #1, #2 or #3: 1 Performed By: #### L 300.3900, L501.4020, L300.4310, L100.0100, L500.2500 ####[facility] [address] [place], [address] Sodium [Moles/Vol] 139 mmol/L Normal 136-145 [facility] Comment on above: Order Comment: 'TROP ' Serial specimen #1, #2 or #3: 1 Performed By: #### L 300.3900, L501.4020, L300.4310, L100.0100, L500.2500 ####[facility] [address] [place], [address] Urea nitrogen [Mass/Vol] 18 mg/dL Normal 7-18 [facility] Comment on above: Order Comment: 'TROP ' Serial specimen #1, #2 or #3: 1 Performed By: #### L 300.3900, L501.4020, L300.4310, L100.0100, L500.2500 ####[facility] [address] [place], [address] Basophil percentageOrdered B y: Piyush Sanchez on 10-09-2024 Basophils/100 WBC (Bld) 1.1 % High 0-1 [facility] CBC W/Diff, Automatedon 09-23 Absolute Lymph 4.61 X10 3/uL High 0.83-4.51 [facility] Comment on above: Performed By: #### L 300.3900, L501.4020, L300.4310, L100.0100, L500.2500 ####[facility] [address] [place], [address] Absolute Neut 6.7 X10 3/uL Normal 2.0-7.7 [facility] Comment on above: Performed By: #### L 300.3900, L501.4020, L300.4310, L100.0100, L500.2500 ####[facility] [address] [place], [address] Basophils/100 WBC (Bld) 1.1 % High 0-1 [facility] Comment on above: Performed By: #### L 300.3900, L501.4020, L300.4310, L100.0100, L500.2500 ####[facility] [address] [place], [address] Eosinophils/100 WBC (Bld) 1.6 % Normal 0-5 [facility] Comment on above: Performed By: #### L 300.3900, L501.4020, L300.4310, L100.0100, L500.2500 ####[facility] [address] [place], [address] Erythrocyte distribution width (RBC) [Ratio] 13.2 % Normal 11.6-14.6 [facility] Comment on above: Performed By: #### L 300.3900, L501.4020, L300.4310, L100.0100, L500.2500 ####[facility] [address] [place], [address] Hematocrit (Bld) [Volume fraction] 44.8 % Normal 37-47 [facility] Comment on above: Performed By: #### L 300.3900, L501.4020, L300.4310, L100.0100, L500.2500 ####[facility] [address] [place], [address] Hemoglobin (Bld) [Mass/Vol] 15.1 g/dL High 12.0-15.0 [facility] Comment on above: Performed By: #### L 300.3900, L501.4020, L300.4310, L100.0100, L500.2500 ####[facility] [address] [place], [address] IG% 0.300 Normal 0.0-0.9 [facility] Comment on above: Result Comment: IG% - Immature Granulocytes (promyelocytes, myelocytes andmetamyelocytes) > 1% indicates that a LEFT SHIFT is Present. Performed By: #### L 300.3900, L501.4020, L300.4310, L100.0100, L500.2500 ####[facility] [address] [place], [address] Lymphocytes/100 WBC (Bld) 37.1 % Normal 19-41 [facility] Comment on above: Performed By: #### L 300.3900, L501.4020, L300.4310, L100.0100, L500.2500 ####[facility] [address] [place], [address] MCH (RBC) [Entitic mass] 31.5 pg Normal 27.0-32.0 [facility] Comment on above: Performed By: #### L 300.3900, L501.4020, L300.4310, L100.0100, L500.2500 ####[facility] [address] [place], [address] MCHC (RBC) [Mass/Vol] 33.7 g/dL Normal 32-36 [facility] Comment on above: Performed By: #### L 300.3900, L501.4020, L300.4310, L100.0100, L500.2500 ####[facility] [address] [place], [address] MCV (RBC) [Entitic vol] 93.5 fL Normal 81-99 [facility] Comment on above: Performed By: #### L 300.3900, L501.4020, L300.4310, L100.0100, L500.2500 ####[facility] [address] [place], [address] Monocytes/100 WBC (Bld) 5.6 % Normal 0-10 [place] Comment on above: Performed By: #### L 300.3900, L501.4020, L300.4310, L100.0100, L500.2500 ####[facility] [address] [place], [address] Neutrophils/100 WBC (Bld) 54.3 % Normal 47-70 [facility] Comment on above: Performed By: #### L 300.3900, L501.4020, L300.4310, L100.0100, L500.2500 ####[facility] [address] [place], [address] Nucleated RBC (Bld) [#/Vol] 0 10*3/uL Normal 0-5 [facility] Comment on above: Performed By: #### L 300.3900, L501.4020, L300.4310, L100.0100, L500.2500 ####[facility] [address] [place], [address] Platelet mean volume (Bld) [Entitic vol] 9.5 fL Normal 6.2-12.0 [facility] Comment on above: Performed By: #### L 300.3900, L501.4020, L300.4310, L100.0100, L500.2500 ####[facility] [address] [place], [address] Platelets (Bld) [#/Vol] 272 10*3/uL Normal 150-450 [facility] Comment on above: Performed By: #### L 300.3900, L501.4020, L300.4310, L100.0100, L500.2500 ####[facility] [address] [place], [address] RBC (Bld) [#/Vol] 4.79 10*6/uL Normal 4.2-5.4 [facility] Comment on above: Performed By: #### L 300.3900, L501.4020, L300.4310, L100.0100, L500.2500 ####[facility] [address] [place], [address] RDW SD 45.1 fl High 35.1-43.9 [facility] Comment on above: Performed By: #### L 300.3900, L501.4020, L300.4310, L100.0100, L500.2500 ####[facility] [address] [place], [address] WBC (Bld) [#/Vol] 12.4 10*3/uL High 4.4-11.0 [facility] Comment on above: Performed By: #### L 300.3900, L501.4020, L300.4310, L100.0100, L500.2500 ####[facility] [address] [place], [address] Consultation - Cardiologyon 10-09-2024 Consultation - Cardiology Normal [facility] Emergency Department Summary on 10-09-2024 Emergency Department Summary Normal [facility] Eosinophil percentageOrdered By: Piyush Sanchez on 10-09-2024 Eosinophils/100 WBC (Bld) 1.6 % 0-5 [facility] H AND P Exam - Hospitaliston 10-09-2024 H&P Exam - Hospitalist Normal [facility] Immature granulocytes/100 WB C Auto (Bld)Ordered By: Piyush Sanchez on 10-09-2024 Immature granulocytes/100 WBC (Bld) 0.300 % 0.0-0.9 [facility] Comment on above: IG% - Immature Granu locytes (promyelocytes, myelocytes and metamyelocytes) > 1% indicates that a LEFT SHIFT is Present. International normalized rat io (INR) calculationOrdered By: Piyush Sanchez on 10-09-2024 INR Coag (Bld) [Relative time] 1.0 {INR} [facility] L501.4020on 10-09-2024 TROPONIN-I HS 1100 pg/mL Invalid Interpretation Code 3.0-54.0 [facility] Comment on above: Order Comment: Comme nts: TNIH @ 0, 2, 6 hrs; Check #2 TNIH done in ED'TROP' Serial specimen #1, #2 or #3: 2 Result Comment: Crit ical Result(s) Called at: 18:12:18 10/09/2024 by: ARMANI TO GUERA KU. Results read back by same. Please Note: New Test Units and Gender Specific Reference Ranges. For more information see Policy Stat Procedure [place] High Sensitivity Troponin (TNIH) and attachments. Performed By: #### L 501.4020 ####[facility] [address] [place], [place], [address] TROPONIN-I HS 113 pg/mL High 3.0-54.0 [facility] Comment on above: Order Comment: 'TROP ' Serial specimen #1, #2 or #3: 1 Result Comment: Plea se Note: New Test Units and Gender Specific Reference Ranges. For more information see Policy Stat Procedure [place] High Sensitivity Troponin (TNIH) and attachments. Performed By: #### L 300.3900, L501.4020, L300.4310, L100.0100, L500.2500 ####[facility] [address] [place], [address] Lymphocytes Auto (Unsp spec) [#/Vol]Ordered By: Piyush Sanchez on 10-09-2024 Lymphocytes (Bld) [#/Vol] 4.61 10*3/uL High 0.83-4.51 [facility] Lymphocytes/100 WBC Auto (Un sp spec)Ordered By: Piyush Sanchez on 10-09-2024 Lymphocytes/100 WBC (Bld) 37.1 % 19-41 [facility] Monocyte percentageOrdered B y: Piyush Sanchez on 10-09-2024 Monocytes/100 WBC (Bld) 5.6 % 0-10 [facility] Neutrophil percentageOrdered By: Piyush Sanchez on 10-09-2024 Neutrophils/100 WBC (Bld) 54.3 % 47-70 [facility] Nucleated red blood cell per centageOrdered By: Piyush Sanchez on 10-09-2024 Nucleated RBC/100 WBC (Bld) [Ratio] 0 % 0-5 [facility] Partial Thromboplast Timeon 10-09-2024 aPTT Coag (Bld) [Time] 23.1 s Low 24.1-36.2 [facility] Comment on above: Performed By: #### L 300.3900, L501.4020, L300.4310, L100.0100, L500.2500 ####[facility] [address] [place], [address] Prothrombin Time w/INRon INR Coag (PPP) [Relative time] 1.0 {INR} Normal [facility] Comment on above: Performed By: #### L 300.3900, L501.4020, L300.4310, L100.0100, L500.2500 ####[facility] [address] [place], [address] PT Coag (PPP) [Time] 13.1 s Normal 11.7-14.9 [facility] Comment on above: Performed By: #### L 300.3900, L501.4020, L300.4310, L100.0100, L500.2500 ####[facility] [address] [place], [address] Prothrombin timeOrdered By: Piyush Sanchez on 10-09-2024 PT Coag (PPP) [Time] 13.1 s 11.7-14.9 [facility] Troponin IOrdered By: Tawanna Holder on 10-09-2024 Troponin I High Sensitivity 1100 pg/mL High 3.0-54.0 [facility] Comment on above: Critical Result(s) C alled at: 18:12:18 10/09/2024 by: SHAMA SEGUNDO TO GUERA KU. Results read back by same. Please Note: New Test Units and Gender Specific Reference Ranges. For more information see Policy Stat Procedure [place] High Sensitivity Troponin (TNIH) and attachments. aPTT Coag (PPP) [Time]Ordere d By: Piyush Sanchez on 10-09-2024 aPTT Coag (Bld) [Time] 23.1 s Low 24.1-36.2 [facility] Brain W/WO Contraston 2023 Brain W/WO Contrast Normal [facility] CREATININE FINGERSTICKon Creatinine [Mass/Vol] 1.2 mg/dL High 0.55-1.02 [facility] Comment on above: Performed By: #### L 9100.0200 ####[facility] [address] [place], [address] GFR/1.73 sq M.predicted among non-blacks MDRD (S/P/Bld) [Vol rate/Area] 46.0000 mL/min/{1.73_m2} Low >60 [facility] Comment on above: Performed By: #### L 9100.0200 ####[facility] [address] [place], [place], [address] US ABDOMEN COMPLETEon 2021 US ABDOMEN COMPLETE [...] 9:53:09 AM Ordering Provider: BRANDEN AKERS Normal [facility] ([place]) CMPon 12-05-2021 ALP [Catalytic activity/Vol] 69 U/L Normal 40-135 [facility]) Comment on above: Performed By: #### C BC, ADIFF, ANEU, CMP, GFR #### [address] [address] .Auto Diffon 12-04-2021 Basophil, Absolute 0.10 10 3/mcL Normal 0.00-0.19 [facility] ([place]) Comment on above: Performed By: #### C BC, ADIFF, ANEU, CMP, GFR #### [address] [address] Basophils/100 WBC (Bld) 1.1 % Normal 0.0-2.5 A [facility] ([place]) Comment on above: Performed By: #### C BC, ADIFF, ANEU, CMP, GFR #### [address] [address] Eosinophil, Absolute 0.20 10 3/mcL Normal 0.00-0.40 A [facility] ([place]) Comment on above: Performed By: #### C BC, ADIFF, ANEU, CMP, GFR #### [address] [address] Eosinophils/100 WBC (Bld) 1.5 % Normal 0.0-7.0 [facility] ([place]) Comment on above: Performed By: #### C BC, ADIFF, ANEU, CMP, GFR #### [address] [address] Lymphocyte, Absolute 3.00 10 3/mcL Normal 0.77-3.85 A [facility] ([place]) Comment on above: Performed By: #### C BC, ADIFF, ANEU, CMP, GFR #### [address] [address] Lymphocytes/100 WBC (Bld) 23.2 % Normal 10.0-50.0 [facility] ([place]) Comment on above: Performed By: #### C BC, ADIFF, ANEU, CMP, GFR #### [address] [address] Monocyte, Absolute 0.80 10 3/mcL Normal 0.15-1.00 [facility] ([place]) Comment on above: Performed By: #### C BC, ADIFF, ANEU, CMP, GFR #### [address] [address] Monocytes/100 WBC (Bld) 6.7 % Normal 1.7-13.0 A [facility] ([place]) Comment on above: Performed By: #### C BC, ADIFF, ANEU, CMP, GFR #### [address] [address] Neutrophils/100 WBC (Bld) 67.5 % Normal 37.0-80.0 [facility] ([place]) Comment on above: Performed By: #### C BC, ADIFF, ANEU, CMP, GFR #### [address] [address] .GFRon 12-04-2021 GFR 61 ml/min/1.73sqm Normal [facility] ([place]) Comment on above: Result Comment: GFR Population [...] C BC, ADIFF, ANEU, CMP, GFR #### [address] [address] GFR Non- 50 ml/min/1.73sqm Normal [facility] ([place]) Comment on above: Result Comment: GFR Population [...] C BC, ADIFF, ANEU, CMP, GFR #### [address] [address] .NEUABSon 12-04-2021 Neutrophil, Absolute 8.60 10 3/mcL High 2.85-6.16 A [facility] ([place]) Comment on above: Performed By: #### C BC, ADIFF, ANEU, CMP, GFR #### [address] [address] CBCon 12-04-2021 Erythrocyte distribution width (RBC) [Ratio] 13.6 % Normal 11.5-14.5 [facility] ([place]) Comment on above: Performed By: #### C BC, ADIFF, ANEU, CMP, GFR #### [address] [address] Hematocrit (Bld) [Volume fraction] 43.4 % Normal 37.0-47.0 [facility] ([place]) Comment on above: Performed By: #### C BC, ADIFF, ANEU, CMP, GFR #### [address] [address] Hgb 15.0 G/dL Normal 12.0-16.0 [facility] ([place]) Comment on above: Performed By: #### C BC, ADIFF, ANEU, CMP, GFR #### [address] [address] MCH (RBC) [Entitic mass] 31.5 pg High 27.0-31.2 [facility] ([place]) Comment on above: Performed By: #### C BC, ADIFF, ANEU, CMP, GFR #### [address] [address] MCHC 34.6 G/dL Normal 33.0-37.0 [facility] ([place]) Comment on above: Performed By: #### C BC, ADIFF, ANEU, CMP, GFR #### [address] [address] MCV (RBC) [Entitic vol] 91.2 fL Normal 80.0-94.0 [facility] ([place]) Comment on above: Performed By: #### C BC, ADIFF, ANEU, CMP, GFR #### [address] [address] Platelet 325 10 3/mcL Normal 130-400 [facility] ([place]) Comment on above: Performed By: #### C BC, ADIFF, ANEU, CMP, GFR #### [address] [address] Platelet mean volume (Bld) [Entitic vol] 8.5 fL Normal 7.4-10.4 [facility] ([place]) Comment on above: Performed By: #### C BC, ADIFF, ANEU, CMP, GFR #### [address] [address] RBC 4.76 10 6/mcL Normal 4.20-5.40 [facility] ([place]) Comment on above: Performed By: #### C BC, ADIFF, ANEU, CMP, GFR #### [address] [address] WBC 12.70 10 3/mcL High 4.60-10.80 [facility] ([place]) Comment on above: Performed By: #### C BC, ADIFF, ANEU, CMP, GFR #### [address] [address] CMPon 12-04-2021 Albumin Level 3.7 G/dL Normal 3.4-4.8 [facility] ([place]) Comment on above: Performed By: #### C BC, ADIFF, ANEU, CMP, GFR #### [address] [address] Albumin/Globulin [Mass ratio] 1.2 {ratio} Normal 1.1-2.5 [facility] ([place]) Comment on above: Performed By: #### C BC, ADIFF, ANEU, CMP, GFR #### [address] [address] ALT [Catalytic activity/Vol] 20 U/L Normal 14-59 [facility] ([place] Comment on above: Performed By: #### C BC, ADIFF, ANEU, CMP, GFR #### [address] [address] AST [Catalytic activity/Vol] 13 U/L Normal 10-40 [facility] ([place] Comment on above: Performed By: #### C BC, ADIFF, ANEU, CMP, GFR #### [address] [address] Bili Total 0.3 mg/dL Normal 0.2-1.0 [facility] ([place]) Comment on above: Result Comment: Use of this assay is not recommended for patients undergoing treatment with eltrombopag due to the potential for falsely elevated results. Performed By: #### C BC, ADIFF, ANEU, CMP, GFR #### [address] [address] BUN/Creatinine Ratio 24 ratio Normal 7-27 [facility] ([place]) Comment on above: Performed By: #### C BC, ADIFF, ANEU, CMP, GFR #### [address] [address] Calcium [Mass/Vol] 9.3 mg/dL Normal 8.4-10.2 [facility] ([place]) Comment on above: Performed By: #### C BC, ADIFF, ANEU, CMP, GFR #### [address] [address] Chloride [Moles/Vol] 105 mmol/L Normal 98-107 [facility] ([place] Comment on above: Performed By: #### C BC, ADIFF, ANEU, CMP, GFR #### [address] [address] CO2 [Moles/Vol] 26 mmol/L Normal 23-31 [facility] ([place] Comment on above: Performed By: #### C BC, ADIFF, ANEU, CMP, GFR #### [address] [address] Creatinine [Mass/Vol] 1.10 mg/dL High 0.55-1.02 [facility] ([place] Comment on above: Performed By: #### C BC, ADIFF, ANEU, CMP, GFR #### [address] [address] Electrolyte Balance 12.0 mEq/L Normal 4.0-15.0 [facility] ([place]) Comment on above: Performed By: #### C BC, ADIFF, ANEU, CMP, GFR #### [address] [address] Globulin 3.2 G/dL Normal [facility] ([place] Comment on above: Performed By: #### C BC, ADIFF, ANEU, CMP, GFR #### [address] [address] Glucose [Mass/Vol] 85 mg/dL Normal 80-115 [facility] ([place] Comment on above: Performed By: #### C BC, ADIFF, ANEU, CMP, GFR #### [address] [address] Potassium [Moles/Vol] 4.3 mmol/L Normal 3.5-5.1 [facility] [place] Comment on above: Performed By: #### C BC, ADIFF, ANEU, CMP, GFR #### [address] [address] Sodium [Moles/Vol] 143 mmol/L Normal 136-145 [facility] ([place] Comment on above: Performed By: #### C BC, ADIFF, ANEU, CMP, GFR #### [address] [address] Total Protein 6.9 G/dL Normal 6.4-8.2 [facility] ([place]) Comment on above: Performed By: #### C BC, ADIFF, ANEU, CMP, GFR #### [address] [address] Urea nitrogen [Mass/Vol] 26 mg/dL High 7-18 [facility] ([place]) Comment on above: Performed By: #### C BC, ADIFF, ANEU, CMP, GFR #### [address] [address] LABORATORYOrdered By: Beverley Carlson on 12-04-2021 Albumin [...] cm Dr. Florin Bailey DO Work Phone: [facility] 04-09-2025 07:04-0400 Body weight 71.[address] Florin Bailey DO Work Phone: [facility] 04-05-2025 11:22-0400 Body height 170.[address] Florin Bailey DO Work Phone: [facility] 04-05-2025 11:22-0400 Body mass index (BMI) [Ratio] 24.3 kg/m2 Dr. Florin Bailey DO Work Phone: [facility] 04-05-2025 11:22-0400 Body weight 70.[address] Florin Bailey DO Work Phone: [facility] 04-05-2025 11:22-0400 Diastolic blood pressure 64 mm[Hg] Dr. Florin Bailey DO Work Phone: [facility] 04-05-2025 11:22-0400 Heart rate 80 /min Dr. Florin Bailey DO Work Phone: [facility] 04-05-2025 11:22-0400 Respiratory rate 16 /min Dr. Florin Bailey DO Work Phone: [facility] 04-05-2025 11:22-0400 Systolic blood pressure 114 mm[Hg] Dr. Florin Bailey DO Work Phone: [facility] 03-26-2025 09:25-0400 Body temperature 97.3 [degF] Nohemy Palumbo DO Work Phone: [facility] 03-26-2025 09:25-0400 Diastolic blood pressure 62 mm[Hg] Nohemy Palumbo DO Work Phone: [facility] 03-26-2025 09:25-0400 Heart rate 80 /min Nohemy Palumbo DO Work Phone: [facility] 03-26-2025 09:25-0400 Respiratory rate 18 /min Nohemy Palumbo DO Work Phone: [facility] 03-26-2025 09:25-0400 SaO2% (BldA) [Mass fraction] 98 % Nohemy Palumbo DO Work Phone: [facility] 03-26-2025 09:25-0400 Systolic blood pressure 118 mm[Hg] Nohemy Palumbo DO Work Phone: [facility] 03-21-2025 22:04-0400 Body height 170.2 cm Nohemy Palumbo DO Work Phone: [facility] 03-21-2025 22:04-0400 Body mass index (BMI) [Ratio] 24.36 kg/m2 Nohemy Palumbo DO Work Phone: [facility] 03-21-2025 22:04-0400 Body weight 70.58 kg Nohemy Palumbo DO Work Phone: [facility] 03-20-2025 14:29-0400 Body height 170.[address] Florin Bailey DO Work Phone: [facility] 03-20-2025 14:29-0400 Body mass index (BMI) [Ratio] 24.4 kg/m2 Dr. Florin Bailey DO Work Phone: [facility] 03-20-2025 14:29-0400 Body temperature 97.6 [degF] Dr. Florin Bailey DO Work Phone: [facility] 03-20-2025 14:29-0400 Body weight 70.[address] Florin Bailey DO Work Phone: [facility] 03-20-2025 14:29-0400 Diastolic blood pressure 66 mm[Hg] Dr. Florin Bailey DO Work Phone: [facility] 03-20-2025 14:29-0400 Heart rate 87 /min Dr. Florin Bailey DO Work Phone: [facility] 03-20-2025 14:29-0400 Respiratory rate 16 /min Dr. Florin Bailey DO Work Phone: [facility] 03-20-2025 14:29-0400 SaO2% (BldA) [Mass fraction] 99 % Dr. Florin Bailey DO Work Phone: [facility] 03-20-2025 14:29-0400 Systolic blood pressure 107 mm[Hg] Dr. Florin Bailey DO Work Phone: [facility] 03-18-2025 10:32-0400 Body temperature 98.2 [degF] Dr. Florin Bailey DO Work Phone: [facility] 03-18-2025 10:32-0400 Diastolic blood pressure 70 mm[Hg] Dr. Florin Bailey DO Work Phone: [facility] 03-18-2025 10:32-0400 Heart rate 79 /min Dr. Florin Bailey DO Work Phone: [facility] 03-18-2025 10:32-0400 Respiratory rate 19 /min Dr. Florin Bailey DO Work Phone: [facility] 03-18-2025 10:32-0400 SaO2% (BldA) [Mass fraction] 99 % Dr. Florin Bailey DO Work Phone: [facility] 03-18-2025 10:32-0400 Systolic blood pressure 118 mm[Hg] Dr. Florin Bailey DO Work Phone: [facility] 03-18-2025 04:58-0400 Body height 170.[address] Florin Bailey DO Work Phone: [facility] 03-18-2025 04:58-0400 Body mass index (BMI) [Ratio] 24.6 kg/m2 Dr. Florin Bailey DO Work Phone: [facility] 03-18-2025 04:58-0400 Body weight 71.[address] Florin Bailey DO Work Phone: [facility] 03-13-2025 07:09-0400 Body height 170.[address] Florin Bailey DO Work Phone: [facility] 03-13-2025 07:09-0400 Body weight 71.[address] Florin Bailey DO Work Phone: [facility] 03-04-2025 16:24-0400 Body temperature 98 [degF] Dr. Florin Bailey DO Work Phone: [facility] 03-04-2025 16:24-0400 Diastolic blood pressure 61 mm[Hg] Dr. Florin Bailey DO Work Phone: [facility] 03-04-2025 16:24-0400 Heart rate 64 /min Dr. Florin Bailey DO Work Phone: [facility] 03-04-2025 16:24-0400 Respiratory rate 14 /min Dr. Florin Bailey DO Work Phone: [facility] 03-04-2025 16:24-0400 SaO2% (BldA) [Mass fraction] 100 % Dr. Florin Bailey DO Work Phone: [facility] 03-04-2025 16:24-0400 Systolic blood pressure 99 mm[Hg] Dr. Florin Bailey DO Work Phone: [facility] 03-03-2025 13:24-0400 Body height 170.[address] Florin Bailey DO Work Phone: [facility] 03-03-2025 13:24-0400 Body weight 71.[address] Florin Bailey DO Work Phone: [facility] 03-03-2025 12:31-0400 Inhaled oxygen flow rate 2 L/min Dr. Florin Bailey DO Work Phone: [facility] 03-03-2025 08:25-0400 Body mass index (BMI) [Ratio] 24.6 kg/m2 Dr. Florin Bailey DO Work Phone: [facility] 03-03-2025 07:24-0400 Body temperature 97 [degF] Dr. Florin Bailey DO Work Phone: [facility] 03-03-2025 07:24-0400 Diastolic blood pressure 54 mm[Hg] Dr. Florin Bailey DO Work Phone: [facility] 03-03-2025 07:24-0400 Heart rate 87 /min Dr. Florin Bailey DO Work Phone: [facility] 03-03-2025 07:24-0400 Respiratory rate 23 /min Dr. Florin Bailey DO Work Phone: [facility] 03-03-2025 07:24-0400 SaO2% (BldA) [Mass fraction] 100 % Dr. Florin Bailey DO Work Phone: [facility] 03-03-2025 07:24-0400 Systolic blood pressure 104 mm[Hg] Dr. Florin Bailey DO Work Phone: [facility] 03-03-2025 06:47-0400 Inhaled oxygen flow rate 2 L/min Dr. Florin Bailey DO Work Phone: [facility] 03-03-2025 02:20-0400 Body height 170.[address] Florin Bailey DO Work Phone: [facility] 03-03-2025 02:20-0400 Body mass index (BMI) [Ratio] 25.7 kg/m2 Dr. Florin Bailey DO Work Phone: [facility] 03-03-2025 02:20-0400 Body weight 74.[address] Florin Bailey DO Work Phone: [facility] 02-28-2025 05:18-0400 Body temperature 97.4 [degF] Dr. Florin Bailey DO Work Phone: [facility] 02-28-2025 05:18-0400 Diastolic blood pressure 54 mm[Hg] Dr. Florin Bailey DO Work Phone: [facility] 02-28-2025 05:18-0400 Heart rate 80 /min Dr. Florin Bailey DO Work Phone: [facility] 02-28-2025 05:18-0400 Respiratory rate 16 /min Dr. Florin Bailey DO Work Phone: [facility] 02-28-2025 05:18-0400 SaO2% (BldA) [Mass fraction] 98 % Dr. Florin Bailey DO Work Phone: [facility] 02-28-2025 05:18-0400 Systolic blood pressure 105 mm[Hg] Dr. Florin Bailey DO Work Phone: [facility] 02-28-2025 02:08-0400 Body height 170.[address] Florin Bailey DO Work Phone: [facility] 02-28-2025 02:08-0400 Body mass index (BMI) [Ratio] 26.2 kg/m2 Dr. Florin Bailey DO Work Phone: [facility] 02-28-2025 02:08-0400 Body weight 75.[address] Florin Bailey DO Work Phone: [facility] 02-22-2025 08:09-0400 Heart rate 86 /min Dr. Florin Bailey DO Work Phone: [facility] 02-22-2025 08:02-0400 Body temperature 98.7 [degF] Dr. Florin Bailey DO Work Phone: [facility] 02-22-2025 08:02-0400 Diastolic blood pressure 47 mm[Hg] Dr. Florin Bailey DO Work Phone: [facility] 02-22-2025 08:02-0400 Respiratory rate 18 /min Dr. Florin Bailey DO Work Phone: [facility] 02-22-2025 08:02-0400 SaO2% (BldA) [Mass fraction] 96 % Dr. Florin Bailey DO Work Phone: [facility] 02-22-2025 08:02-0400 Systolic blood pressure 97 mm[Hg] Dr. Florin Bailey DO Work Phone: [facility] 02-21-2025 16:04-0400 Inhaled oxygen flow rate 2 L/min Dr. Florin Bailey DO Work Phone: [facility] 02-20-2025 14:09-0400 Body mass index (BMI) [Ratio] 24.3 kg/m2 Dr. Florin Bailey DO Work Phone: [facility] 02-19-2025 16:34-0400 Body weight 70.[address] Florin Bailey DO Work Phone: [facility] 02-12-2025 10:43-0400 Body mass index (BMI) [Ratio] 24.7 kg/m2 Dr. Florin Bailey DO Work Phone: [facility] 02-12-2025 10:43-0400 Body height 170.[address] Florin Bailey DO Work Phone: [facility] 02-12-2025 10:43-0400 Body weight 71.[address] Florin Bailey DO Work Phone: [facility] 02-12-2025 10:06-0400 Diastolic blood pressure 76 mm[Hg] Dr. Florin Bailey DO Work Phone: [facility] 02-12-2025 10:06-0400 Heart rate 98 /min Dr. Florin Bailey DO Work Phone: [facility] 02-12-2025 10:06-0400 SaO2% (BldA) [Mass fraction] 99 % Dr. Florin Bailey DO Work Phone: [facility] 02-12-2025 10:06-0400 Systolic blood pressure 126 mm[Hg] Dr. Florin Bailey DO Work Phone: [facility] 02-07-2025 10:22-0400 Body mass index (BMI) [Ratio] 24.7 kg/m2 Dr. Florin Bailey DO Work Phone: [facility] 02-07-2025 10:22-0400 Body weight 71.[address] Florin Bailey DO Work Phone: [facility] 02-07-2025 10:22-0400 Diastolic blood pressure 76 mm[Hg] Dr. Florin Bailey DO Work Phone: [facility] 02-07-2025 10:22-0400 Heart rate 98 /min Dr. Florin Bailey DO Work Phone: [facility] 02-07-2025 10:22-0400 Respiratory rate 18 /min Dr. Florin Bailey DO Work Phone: [facility] 02-07-2025 10:22-0400 SaO2% (BldA) [Mass fraction] 99 % Dr. Florin Bailey DO Work Phone: [facility] 02-07-2025 10:22-0400 Systolic blood pressure 126 mm[Hg] Dr. Florin Bailey DO Work Phone: [facility] 02-06-2025 13:57-0400 Body temperature 97.8 [degF] Dr. Branden Akers MD Work Phone: [facility] 02-06-2025 13:57-0400 Diastolic blood pressure 74 mm[Hg] Dr. Branden Akers MD Work Phone: [facility] 02-06-2025 13:57-0400 Heart rate 76 /min Dr. Branden Akers MD Work Phone: [facility] 02-06-2025 13:57-0400 Respiratory rate 15 /min Dr. Branden Akers MD Work Phone: [facility] 02-06-2025 13:57-0400 SaO2% (BldA) [Mass fraction] 96 % Dr. Branden Akers MD Work Phone: [facility] 02-06-2025 13:57-0400 Systolic blood pressure 115 mm[Hg] Dr. Branden Akers MD Work Phone: [facility] 02-06-2025 08:57-0400 Body height 170.[address] Branden Akers MD Work Phone: [facility] 02-06-2025 08:57-0400 Body mass index (BMI) [Ratio] 24.7 kg/m2 Dr. Branden Akers MD Work Phone: [facility] 02-06-2025 08:57-0400 Body weight 71.[address] Branden Akers MD Work Phone: [facility] 02-05-2025 15:42-0400 Body temperature 97.9 [degF] Dr. Branden Akers MD Work Phone: [facility] 02-05-2025 15:42-0400 Diastolic blood pressure 64 mm[Hg] Dr. Branden Akers MD Work Phone: [facility] 02-05-2025 15:42-0400 Heart rate 72 /min Dr. Branden Akers MD Work Phone: [facility] 02-05-2025 15:42-0400 Respiratory rate 16 /min Dr. Branden Akers MD Work Phone: [facility] 02-05-2025 15:42-0400 SaO2% (BldA) [Mass fraction] 96 % Dr. Branden Akers MD Work Phone: [facility] 02-05-2025 15:42-0400 Systolic blood pressure 92 mm[Hg] Dr. Branden Akers MD Work Phone: [facility] 02-04-2025 15:31-0400 Body height 170.[address] Branden Akers MD Work Phone: [facility] 02-04-2025 15:31-0400 Body mass index (BMI) [Ratio] 25.3 kg/m2 Dr. Branden Akers MD Work Phone: [facility] 02-04-2025 15:31-0400 Body weight 73.[address] Branden Akers MD Work Phone: [facility] 02-04-2025 13:00-0400 Diastolic blood pressure 84 mm[Hg] Dr. Branden Akers MD Work Phone: [facility] 02-04-2025 13:00-0400 Heart rate 82 /min Dr. Branden Akers MD Work Phone: [facility] 02-04-2025 13:00-0400 SaO2% (BldA) [Mass fraction] 98 % Dr. Branden Akers MD Work Phone: [facility] 02-04-2025 13:00-0400 Systolic blood pressure 101 mm[Hg] Dr. Branden Akers MD Work Phone: [facility] 02-04-2025 12:59-0400 Body temperature 98 [degF] Dr. Branden Akers MD Work Phone: [facility] 02-04-2025 12:59-0400 Respiratory rate 13 /min Dr. Branden Akers MD Work Phone: [facility] 02-04-2025 10:27-0400 Body mass index (BMI) [Ratio] 25.4 kg/m2 Dr. Branden Akers MD Work Phone: [facility] 02-04-2025 10:27-0400 Body weight 73.[address] Branden Akers MD Work Phone: [facility] 01-23-2025 08:56-0400 Body height 170.[address] Branden Akers MD Work Phone: [facility] 01-23-2025 08:56-0400 Body mass index (BMI) [Ratio] 25.5 kg/m2 Dr. Branden Akers MD Work Phone: [facility] 01-23-2025 08:56-0400 Body weight 73.[address] Branden Akers MD Work Phone: [facility] 01-23-2025 08:56-0400 Diastolic blood pressure 77 mm[Hg] Dr. Branden Akers MD Work Phone: [facility] 01-23-2025 08:56-0400 Heart rate 85 /min Dr. Branden Akers MD Work Phone: [facility] 01-23-2025 08:56-0400 Respiratory rate 18 /min Dr. Branden Akers MD Work Phone: [facility] 01-23-2025 08:56-0400 SaO2% (BldA) [Mass fraction] 96 % Dr. Branden Akers MD Work Phone: [facility] 01-23-2025 08:56-0400 Systolic blood pressure 135 mm[Hg] Dr. Branden Akers MD Work Phone: [facility] 01-02-2025 05:04-0400 Body mass index (BMI) [Ratio] 25 kg/m2 Dr. Branden Akers MD Work Phone: [facility] 01-02-2025 05:04-0400 Body temperature 96.7 [degF] Dr. Branden Akers MD Work Phone: [facility] 01-02-2025 05:04-0400 Body weight 72.[address] Branden Akers MD Work Phone: [facility] 01-02-2025 05:04-0400 Diastolic blood pressure 70 mm[Hg] Dr. Branden Akers MD Work Phone: [facility] 01-02-2025 05:04-0400 Heart rate 71 /min Dr. Branden Akers MD Work Phone: [facility] 01-02-2025 05:04-0400 Respiratory rate 18 /min Dr. Branden Akers MD Work Phone: [facility] 01-02-2025 05:04-0400 SaO2% (BldA) [Mass fraction] 96 % Dr. Branden Akers MD Work Phone: [facility] 01-02-2025 05:04-0400 Systolic blood pressure 111 mm[Hg] Dr. Branden Akers MD Work Phone: [facility] 12-11-2024 11:56-0500 Diastolic blood pressure 70 mm[Hg] Dr. Branden Akers MD Work Phone: [facility] 12-11-2024 11:56-0500 Heart rate 68 /min Dr. Branden Akers MD Work Phone: [facility] 12-11-2024 11:56-0500 Respiratory rate 25 /min Dr. Branden Akers MD Work Phone: [facility] 12-11-2024 11:56-0500 SaO2% (BldA) [Mass fraction] 97 % Dr. Branden Akers MD Work Phone: [facility] 12-11-2024 11:56-0500 Systolic blood pressure 143 mm[Hg] Dr. Branden Akers MD Work Phone: [facility] 12-11-2024 09:59-0500 Body temperature 98.7 [degF] Dr. Branden Akers MD Work Phone: [facility] 12-11-2024 09:58-0500 Body height 170.[address] Branden Akers MD Work Phone: [facility] 12-11-2024 09:58-0500 Body mass index (BMI) [Ratio] 26.4 kg/m2 Dr. Branden Akers MD Work Phone: [facility] 12-11-2024 09:58-0500 Body weight 76.[address] Branden Akers MD Work Phone: [facility] 11-29-2024 09:23-0500 Body weight 75.[address] Branden Akers MD Work Phone: [facility] 10-31-2024 08:52-0500 Body mass index (BMI) [Ratio] 26.2 kg/m2 Dr. Branden Akers MD Work Phone: [facility] 10-31-2024 08:49-0500 Body weight 75.[address] Branden Akers MD Work Phone: [facility] 10-31-2024 08:24-0500 Diastolic blood pressure 52 mm[Hg] Dr. Branden Akers MD Work Phone: [facility] 10-31-2024 08:24-0500 Heart rate 64 /min Dr. Branden Akers MD Work Phone: [facility] 10-31-2024 08:24-0500 SaO2% (BldA) [Mass fraction] 97 % Dr. Branden Akers MD Work Phone: [facility] 10-31-2024 08:24-0500 Systolic blood pressure 94 mm[Hg] Dr. Branden Akers MD Work Phone: [facility] 10-26-2024 15:18-0500 Body mass index (BMI) [Ratio] 26.2 kg/m2 Dr. Branden Akers MD Work Phone: [facility] 10-26-2024 15:18-0500 Body weight 75.[address] Branden Akers MD Work Phone: [facility] 10-26-2024 15:18-0500 Diastolic blood pressure 77 mm[Hg] Dr. Branden Akers MD Work Phone: [facility] 10-26-2024 15:18-0500 Heart rate 68 /min Dr. Branden kAers MD Work Phone: [facility] 10-26-2024 15:18-0500 Respiratory rate 18 /min Dr. Branden Akers MD Work Phone: [facility] 10-26-2024 15:18-0500 SaO2% (BldA) [Mass fraction] 99 % Dr. Branden Akers MD Work Phone: [facility] 10-26-2024 15:18-0500 Systolic blood pressure 137 mm[Hg] Dr. Branden Akers MD Work Phone: [facility] 10-11-2024 08:43-0500 Heart rate 76 /min Dr. Branden Akers MD Work Phone: [facility] 10-11-2024 08:26-0500 Body temperature 97.5 [degF] Dr. Branden Akers MD Work Phone: [facility] 10-11-2024 08:26-0500 Diastolic blood pressure 64 mm[Hg] Dr. Branden Akers MD Work Phone: [facility] 10-11-2024 08:26-0500 Respiratory rate 18 /min Dr. Branden Akers MD Work Phone: [facility] 10-11-2024 08:26-0500 SaO2% (BldA) [Mass fraction] 96 % Dr. Branden Akers MD Work Phone: [facility] 10-11-2024 08:26-0500 Systolic blood pressure 111 mm[Hg] Dr. Branden Akers MD Work Phone: [facility] 10-11-2024 05:39-0500 Body mass index (BMI) [Ratio] 26.9 kg/m2 Dr. Branden Akers MD Work Phone: [facility] 10-11-2024 05:39-0500 Body weight 78.[address] Branden Akers MD Work Phone: [facility] Encounters Encounter Date Encounter Type Care Provider Facility Start: 05-03-2025 ambulatory Florin Bailey Facility: [facility] Start: 04-23-2025 End: 04-23-2025 Ivan Cotto DO [facility] Work Phone: Start: 04-23-2025 End: 04-23-[address] Florin Bailey DO Work Phone: [facility] Start: 04-16-2025 End: 04-16-2025 ambulatory FLORIN BAILEY DO Facility:[facility] Start: 04-16-2025 End: 04-16-2025 Patient encounter procedure FLORIN BAILEY DO [facility] Start: 04-16-2025 End: 04-16-2025 Well adult monitoring check done FLORIN BAILEY DO [facility] Start: 04-09-2025 End: 04-09-2025 ambulatory FLORIN BAILEY DO Facility:[facility] Start: 04-09-2025 End: 04-09-2025 Patient encounter procedure FLORIN BAILEY DO [facility] Start: 04-05-2025 End: 04-05-2025 Dr. Deondre Leavitt MD [facility] Work Phone: Start: 04-05-2025 End: 04-05-[address] Florin Bailey DO Work Phone: [facility] Work Phone: Start: 04-05-2025 End: 04-05-2025 ambulatory FLORIN BAILEY DO Facility:[facility] Start: 04-05-2025 End: 04-05-2025 Patient encounter procedure FLORIN BAILEY DO [facility] Start: 03-30-2025 End: 03-30-2025 ambulatory FLORIN BAILEY DO Facility:[facility] Start: 03-30-2025 End: 03-30-2025 Patient encounter procedure FLORIN BAILEY DO [facility] Start: 03-25-2025 End: 04-22-2025 Dr. Adan Galindo MD -Cardiac Rehab Work Phone: Start: 03-25-2025 End: 04-22-[address] Florin Bailey DO Work Phone: -Cardiac Rehab Start: 03-21-2025 End: 03-21-2025 Emergency department patient visit [facility] Start: 03-21-2025 End: 03-26-2025 Evaluation and management of inpatient FLORIN BAILEY [facility] Work Phone: Comment on above: Shortness of breath (Primary Dx); Melena; Small intestinal hemorrhage not requiring more than four units of blood in 24 hours, admission to ICU, or surgery; Coronary artery disease involving [place] coronary artery, unspecified whether angina present, unspecified whether [place] or transplanted heart; CAD in [place] artery Start: 03-20-2025 End: 03-20-2025 Dr. Dax Álvarez MD -[facility] Work Phone: Start: 03-20-2025 End: 03-20-[address] Florin Bailey DO Work Phone: [facility] Work Phone: Start: 03-20-2025 Dr. Dax jesus MD -[facility] Start: 03-20-2025 ambulatory Florin Bailey Facility: [facility] Start: 03-18-2025 End: 03-18-2025 Dr. Florin Bailey DO Work Phone: -Emergency Department Work Phone: Start: 03-18-2025 End: 03-18-2025 Emergency department patient visit Dr. Florin Bailey DO Work Phone: [facility] Work Phone: Start: 03-11-2025 End: 03-11-[address] Florin Bailey DO Work Phone: [facility] Work Phone: Start: 03-11-2025 End: 03-11-2025 Ivan Cotto DO -Laboratory Work Phone: Start: 03-11-2025 End: 03-11-2025 ambulatory Florin Bailey Facility:[facility] Start: 03-08-2025 End: 03-08-2025 Ivan Cotto DO [facility] Work Phone: Start: 03-08-2025 End: 03-08-[address] Florin Bailey DO Work Phone: [facility] Work Phone: Start: 03-07-2025 End: 03-08-2025 ambulatory FLORIN BAILEY DO Facility:[facility] Start: 03-07-2025 End: 03-07-2025 Patient encounter procedure FLORIN BAILEY DO [facility] Start: 03-04-[address] [facility] Start: 03-04-2025 Dr. Clyde Long DO [facility] Work Phone: Start: 03-03-2025 Non-patient / Non-visit Dr. Clyde Long DO [facility] Work Phone: Start: 03-03-[address] Reid Bailey DO Work Phone: [facility] Work Phone: Start: 03-03-2025 ambulatory Florin Bailey Facility: [facility] Start: 03-03-2025 End: 03-04-2025 Evaluation and management of inpatient Dr. Clyde Long DO -Progressive Care Unit Work Phone: Start: 03-03-2025 End: 03-04-2025 Dr. [facility] Work Phone: Start: 02-28-2025 Patient encounter procedure Luz Mullen 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 -Pulmonary Services/Neurology Work Phone: Start: 02-28-2025 End: 02-28-2025 Luz Mullen 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 -Pulmonary Services/Neurology Work Phone: Start: 02-28-2025 End: 02-28-[address] Florin Bailey DO Work Phone: [facility] Work Phone: Start: 02-28-2025 End: 02-28-2025 Dr. Orlando Abdi MD -Emergency Department Work Phone: Start: 02-28-2025 End: 02-28-2025 Emergency department patient visit Dr. Florin Bailey DO Work Phone: -Emergency Department Work Phone: Start: 02-28-2025 End: 02-28-2025 ambulatory Florin Bailey Facility:[facility] Start: 02-26-2025 End: 02-26-2025 ambulatory FLORIN BAILEY DO Facility:[facility] Start: 02-26-2025 End: 02-26-2025 Patient encounter procedure FLORIN BAILEY DO [facility] Start: 02-26-2025 End: 02-26-2025 Well adult monitoring check done FLORIN BAILEY DO [facility] Start: 02-22-2025 Non-patient / Non-visit Dr. Josh Peñaloza MD -[facility] Work Phone: Start: 02-22-[address] Wilmar Galindo MD -Cardiac Rehab Work Phone: Start: 02-22-2025 End: 03-23-2025 Dr. Josh Peñaloza MD -[facility] Work Phone: Start: 02-22-2025 End: 03-23-[address] Florin Bailey DO Work Phone: [facility] Work Phone: Start: 02-21-2025 Non-patient / Non-visit Dr. Josh Peñaloza MD -[facility] Work Phone: Start: 02-21-2025 Dr. Josh Peñaloza MD -[facility] Work Phone: Start: 02-21-2025 [facility] Start: 02-21-2025 Ivan Friend DO -[facility] Start: 02-20-2025 Non-patient / Non-visit Ivan Friend DO -[facility] Start: 02-20-2025 Ivan Friend DO -[facility] Start: 02-20-2025 Non-patient / Non-visit Dr. Josh Peñaloza MD -[facility] Work Phone: Start: 02-20-2025 Dr. Josh Peñaloza MD -[facility] Work Phone: Start: 02-19-2025 Non-patient / Non-visit Ivan Friend DO -[facility] Start: 02-19-2025 Ivan Friend DO -[facility] Start: 02-19-2025 ambulatory [facility]: [facility] Start: 02-19-2025 Non-patient / Non-visit Dr. Adan Galindo MD [facility] Start: 02-19-2025 Dr. Adan Galindo MD [facility] Start: 02-19-2025 Non-patient / Non-visit Dr. Josh Peñaloza MD -[facility] Work Phone: Start: 02-19-2025 Dr. Josh Peñaloza MD -[facility] Work Phone: Start: 02-18-2025 Non-patient / Non-visit Ivan Friend DO -[facility] Start: 02-18-2025 Ivan Friend DO -[facility] Start: 02-18-2025 Non-patient / Non-visit Dr. Jakub Fischer MD [facility] Work Phone: Start: 02-18-2025 ambulatory [facility] Facility: [facility] Start: 02-18-2025 End: 02-22-2025 Evaluation and management of inpatient Dr. Josh Peñaloza MD -Medical Surgical 3 Work Phone: Start: 02-18-2025 End: 02-22-2025 Dr. Josh Peñaloza MD -Medical Surgical 3 Work Phone: Start: 02-18-2025 End: 02-18-2025 ambulatory FLORIN BAILEY DO [facility] Start: 02-18-2025 End: 02-18-2025 Patient encounter procedure FLORIN BAILEY DO [facility] Start: 02-16-2025 End: 02-20-2025 ambulatory FLORIN BAILEY DO [facility] Start: 02-16-2025 End: 02-20-2025 Outreach Lab MARQUITA DOUGLAS REGISTERED RADIOLOGIC TECHNOLOGIST-PUTTY AND CAULKING SUPERVISOR [facility] Start: 02-15-2025 End: 02-15-2025 ambulatory FLORIN BAILEY DO [facility] Start: 02-15-2025 End: 02-15-2025 Patient encounter procedure FLORIN BAILEY DO [facility] Start: 02-14-2025 End: 02-14-2025 ambulatory FLORIN BAILEY DO [facility] Start: 02-14-2025 End: 02-14-2025 Patient encounter procedure MARQUITA DOUGLAS REGISTERED RADIOLOGIC TECHNOLOGIST-PUTTY AND CAULKING SUPERVISOR [facility] Start: 02-12-2025 End: 02-12-[address] Florin Bailey DO Work Phone: [facility] Work Phone: Start: 02-12-2025 End: 02-12-[address] Adan Galindo MD -Cardiac Rehab Work Phone: Start: 02-12-2025 End: 02-12-2025 Dr. Adan Galindo MD -Cardiac Rehab Work Phone: Start: 02-12-2025 End: 02-12-2025 ambulatory Florin Bailey Facility:[facility] Start: 02-07-2025 End: 02-07-2025 Patient encounter procedure Luz Mullen 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-[facility] Work Phone: Start: 02-07-2025 End: 02-07-[address] [facility] Work Phone: Start: 02-07-2025 End: 02-07-2025 ambulatory [facility] Facility:[facility] Start: 02-06-2025 Non-patient / Non-visit Dr. Adan Galindo MD -[facility] Start: 02-06-2025 Dr. Adan Galindo MD [facility] Start: 02-06-2025 ambulatory [facility] Facility: [facility] Start: 02-06-2025 End: 02-06-2025 Dr. Inderjit Gilmore DO -Emergency [facility] Work Phone: Start: 02-06-2025 End: 02-06-2025 Emergency department patient visit Dr. Branden Akers MD Work Phone: -Emergency Department Work Phone: Start: 02-05-2025 Non-patient / Non-visit Dr. Estrella Hanna MD [facility] Work Phone: Start: 02-05-2025 Dr. Estrella puga MD [facility] Work Phone: Start: 02-05-2025 Non-patient / Non-visit Dr. Deondre Leavitt MD -[facility] Start: 02-05-2025 Dr. Deondre callejas MD [facility] Start: 02-04-2025 Non-patient / Non-visit Dr. Deondre Leavitt MD -[facility] Start: 02-04-2025 ambulatory [facility] Start: 02-04-2025 End: 02-05-2025 Evaluation and management of inpatient Dr. Estrella Hanna MD -Progressive Care Unit Work Phone: Start: 02-04-2025 End: 02-05-2025 Dr. Estrella Hanna MD -Progressive Care Unit Work Phone: Start: 01-24-2025 End: 01-24-[address] Branden Akers MD Work Phone: [facility] Work Phone: Start: 01-24-2025 End: 01-24-[address] Roxanne Olivas MD -Cat Scan, [facility] Work Phone: Start: 01-24-2025 End: 01-24-2025 Dr. Roxanne Olivas MD -Cat Scan, [facility] Work Phone: Start: 01-23-2025 End: 01-23-2025 Patient encounter procedure Aung Franklin 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 -[facility] Work Phone: Start: 01-23-2025 End: 01-23-2025 Aung Franklin 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 -[facility] Work Phone: Start: 01-23-2025 End: 01-24-2025 ambulatory Florin Cameronins Facility:[facility] Start: 01-14-2025 End: 01-14-2025 ambulatory FLORIN BAILEY Facility:[facility] Start: 01-09-2025 End: 01-09-[address] Branden Akers MD Work Phone: [facility] Work Phone: Start: 01-09-2025 End: 01-09-2025 Patient encounter procedure 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 Nohemy Banks -Sleep Lab Work Phone: Start: 01-09-2025 End: 01-09-2025 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 Nohemy Banks -Sleep Lab Work Phone: Start: 01-08-2025 End: 01-08-[address] Roxanne Olivas MD -Laboratory, Specimen Work Phone: Start: 01-08-2025 End: 01-09-[address] Branden Akers MD Work Phone: [facility] Work Phone: Start: 01-08-2025 Non-patient / Non-visit Dr. Trey Eduardo MD -[facility] Start: 01-08-2025 End: 01-08-2025 Dr. Trey Eduardo MD -[facility] Start: 01-08-2025 End: 01-08-2025 ambulatory Florin Bailey Facility:[facility] Start: 01-02-2025 End: 01-02-2025 Patient encounter procedure 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 Nohemy Banks -[facility] Work Phone: Start: 01-02-2025 End: 01-02-2025 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 Nohemy Banks -[facility] Work Phone: Start: 01-02-2025 End: 01-02-2025 ambulatory Florin Bailey Facility:[facility] Start: 01-01-2025 ambulatory Florin Bailey Facility: [facility] Start: 12-24-2024 End: 12-28-2024 ambulatory FLORIN E BAILEY DO Facility:[facility] Start: 12-13-2024 End: 12-13-2024 ambulatory FLORIN E BAILEY DO Facility:[facility] Start: 12-13-2024 End: 12-13-[address] TOM WILLIS DO [facility] Start: 12-11-2024 End: 12-11-2024 Dr. [facility] Work [facility]: Start: 12-11-2024 End: 12-11-2024 Emergency department patient visit Dr. Jak Sheikh MD -Emergency Department Work Phone: Start: 12-05-2024 End: 12-09-2024 ambulatory FLORIN E BAILEY DO Facility:[facility] Start: 12-05-2024 End: 12-09-2024 Outreach Lab MATTIE CARPIO APRN-PUTTY AND CAULKING SUPERVISOR [facility] Start: 12-03-2024 End: 12-21-2024 ambulatory Adan Galindo Facility:[facility] Start: 12-03-2024 End: 12-21-[address] Adan Galindo MD -Cardiac Rehab Work Phone: Start: 12-03-2024 End: 12-21-2024 Dr. Adan Galindo MD -Cardiac Rehab Work Phone: Start: 11-23-2024 End: 11-23-2024 ambulatory [facility] Facility:[facility] Start: 11-23-2024 End: 11-23-[address] Adan Galindo MD -Cardiac Rehab Work Phone: Start: 11-23-2024 End: 11-23-2024 Dr. Adan Galindo MD -Cardiac Rehab Work Phone: Start: 11-07-2024 End: 11-07-2024 Patient encounter procedure Aung Franklin NP-Shruthi -Sleep Lab Work Phone: Start: 11-07-2024 End: 11-07-2024 Aung Franklin NP-Shruthi -Sleep Lab Work Phone: Start: 11-07-2024 End: 11-07-2024 ambulatory [facility] Facility:[facility] Start: 11-03-2024 End: 11-07-2024 ambulatory [facility] DO Facility:[facility] Start: 11-03-2024 End: 11-07-2024 Outreach Lab BOLA ALEXANDERY DO [facility] Start: 10-31-2024 End: 10-31-[address] Adan Galindo MD -Cardiac Rehab Work Phone: Start: 10-31-2024 End: 10-31-2024 ambulatory [facility] Facility:[facility] Start: 10-26-2024 End: 10-26-2024 Patient encounter procedure Aung Franklin NP-Shruthi -[facility] Work Phone: Start: 10-26-2024 End: 10-26-2024 ambulatory [facility] Facility:[facility] Start: 10-11-2024 Non-patient / Non-visit Dr. Kraig Feliz Located within [facility] Inpatient Physicians Work Phone: Start: 10-11-2024 Non-patient / Non-visit Dr. Alfredito Saucedo MD -[facility] Start: 10-10-2024 Non-patient / Non-visit Dr. Kraig Feliz Located within [facility] Work Phone: Start: 10-10-2024 ambulatory [facility] Facility: [facility] Start: 10-10-2024 Non-patient / Non-visit Dr. Alfredito Saucedo MD [facility] Start: 10-09-2024 ambulatory [facility] Facility: [facility] Start: 10-09-2024 End: 10-11-2024 Evaluation and management of inpatient Dr. Kraig Feliz DO -Intensive Care Unit Work Phone: Start: 10-09-2024 Non-patient / Non-visit Dr. Adan Galindo MD -[facility] Start: 10-09-2024 ambulatory Tawanna Hatchechubbee Facility:[facility] Start: 08-02-2024 End: 08-02-2024 ambulatory Branden Akers Facility:[facility] Start: 12-04-2021 End: 12-04-2021 Patient encounter procedure BRANDEN AKERS MD [facility] Procedures Date Procedure Procedure Detail [...] or Pulmonary Embolism (PE)CRITICAL VALUE CALLED TO [id number]/11/25 [id number] Jhonny Rogers.RESULTS READ BACK BY SAME. [...] Florin Bailey DO Work Phone: Start: 02-28-2025 Platelet mean [...] to pLAD; PTCA alone to pD1 10/09/2024;[place] MR FREDDIE 2.5 x 40 mm to mLCx, PTCA alone to D1 02/04/2025 Start: 02-04-2025 Calculation of international normalized ratio Dr. Florin Bailey DO Work Phone: Start: 02-04-2025 Plain chest X-ray Dr. Branden Akers MD Work Phone: Start: 02-04-2025 Blood count smear mcrscp w/mnl difrntl wbc count Dr. Florin Baliey DO Work Phone: Start: 02-04-2025 Nucleated red [...] Screening for malign ant neoplasm of colon [facility] Start: 06-24-2025 Influenza vaccination Influenz a Vaccine (Season Ended) [facility] Start: 03-20-2025 Folic acid measureme nt, RBC [facility] Start: 03-20-2025 Haptoglobin [Mass/vo lume] in Serum or Plasma [facility] Start: 03-20-2025 Serum immunofixation [facility] Start: 03-20-2025 End: 03-20-2025 [facility] Start: 03-18-2025 [facility] Start: 03-18-2025 Administration of bl ood product [facility] Start: 03-08-2025 Basic metabolic 2008 panel with ionized calcium - Serum or Plasma [facility] Start: 03-08-2025 CBC W Auto Different ial panel - Blood [facility] Start: 03-08-2025 Celiac disease screen [facility] Start: 03-08-2025 Transferrin [Mass/vo lume] in Serum or Plasma [facility] Start: 03-04-2025 Patient discharge [facility] Start: 03-04-2025 Laboratory test [facility] Start: 03-04-2025 End: 03-04-2025 Administration of blood product [facility] Start: 03-04-2025 Leukocyte reduced re d blood cells [facility] Start: 03-04-2025 [facility] Start: 03-03-2025 [facility] Start: 03-03-2025 [facility] Start: 03-03-2025 Application of intermittent pneumatic compression device [facility] Start: 03-03-2025 Following clinical p athway protocol [facility] Start: 03-03-2025 Referral to gastroenterology service [facility] Start: 03-03-2025 [facility] Start: 03-03-2025 Verification routine [facility] Start: 03-03-2025 Admission procedure [facility] Start: 03-03-2025 Administration of bl ood product [facility] Start: 03-03-2025 [facility] Start: 03-03-2025 Inhalation therapy procedure [facility] Start: 03-03-2025 Patient referral to dietitian [facility] Start: 02-28-2025 Emergency department visit moderate severity [facility] Start: 02-28-2025 [facility] Start: 02-28-2025 [facility] Start: 02-22-2025 Patient discharge [facility] Start: 02-19-2025 [facility] Start: 02-18-2025 Application of intermittent pneumatic compression device [facility] Start: 02-18-2025 Ambulation without limitation [facility] Start: 02-18-2025 Assessment of risk o f venous thromboembolism [facility] Start: 02-18-2025 Insertion of cathete r into peripheral vein [facility] Start: 02-18-2025 Providing care accor ding to standard [facility] Start: 02-18-2025 Referral to gastroenterology service [facility] Start: 02-18-2025 [facility] Start: 02-18-2025 Following clinical p athway protocol [facility] Start: 02-18-2025 Admission procedure [facility] Start: 02-18-2025 Patient referral to dietitian [facility] Start: 02-06-2025 Patient referral [facility] Work Phone: Start: 02-06-2025 [facility] Start: 02-06-2025 Consultation [facility] Start: 02-06-2025 [facility] Start: 02-05-2025 Patient discharge [facility] Start: 02-04-2025 Following clinical p athway protocol [facility] Start: 02-04-2025 Cardiac monitoring [facility] Start: 02-04-2025 Cardiac rehabilitati on - phase 1 [facility] Start: 02-04-2025 Cardiac rehabilitati on - phase 2 [facility] Start: 02-04-2025 Notification of physician [facility] Start: 02-04-2025 Oxygen therapy [facility] Start: 02-04-2025 Patient discharge [facility] Start: 02-04-2025 Systemic arterial pr essure monitoring [facility] Start: 02-04-2025 Taking patient vital signs [facility] Start: 02-04-2025 Vascular disease ris k assessment [facility] Start: 02-04-2025 Vital signs measurements [facility] Start: 02-04-2025 [facility] Start: 02-04-2025 End: 02-04-2025 [facility] Start: 02-04-2025 Hospital admission, emergency, from emergency room, medical nature [facility] Start: 02-04-2025 Admission procedure [facility] Start: 12-11-2024 [facility] Start: 12-11-2024 [facility] Start: 10-11-2024 Patient discharge [facility] Start: 10-10-2024 Patient referral [facility] Work Phone: Start: 10-09-2024 Oxygen therapy [facility] Start: 10-09-2024 Referral to compress machine operator [facility] Start: 10-09-2024 Tobacco use cessatio n education [facility] Start: 10-09-2024 Admission procedure [facility] Start: 10-09-2024 Assessment of risk o f venous thromboembolism [facility] Start: 10-09-2024 Continuous pulse oximetry [facility] Start: 10-09-2024 Insertion of cathete r into peripheral vein [facility] Start: 10-09-2024 Measuring intake and output [facility] Start: 10-09-2024 Providing care accor ding to standard [facility] Start: 10-09-2024 Cardiac monitoring [facility] Start: 10-09-2024 Cardiac rehabilitati on - phase 1 [facility] Start: 10-09-2024 Cardiac rehabilitati on - phase 2 [facility] Start: 10-09-2024 End: 10-09-2024 Notification of physician [facility] Start: 10-09-2024 Patient discharge [facility] Start: 10-09-2024 Systemic arterial pr essure monitoring [facility] Start: 10-09-2024 Vascular disease ris k assessment [facility] Start: 10-09-2024 Vital signs measurements [facility] Start: 10-09-2024 End: 10-09-2024 [facility] Start: 10-09-2024 Patient education [facility] Start: 10-09-2024 Provision of activit y privileges [facility] Start: 10-09-2024 Pulse taking [facility] Start: 10-09-2024 End: 10-09-2024 Taking patient vital signs [facility] Start: 10-09-2024 Wound care [facility] Start: 06-24-2024 COVID-19 Vaccine ( season) COVID-19 Vaccine ( season) [facility] Start: 02-16-2023 DTaP/Tdap/Td Vaccine s (2 - Td or Tdap) DTaP/Tdap/Td Vaccines (2 - Td or Tdap) [facility] Start: 2018 RSV High Risk: (Elde rly (60+) or Population) (1 - Risk 60-74 years 1-dose series) RSV High Risk: (Elderly (60+) or Population) (1 - Risk 60-74 years 1-dose series) [facility] Start: 05-01-2015 Pneumococcal vaccination Pneum ococcal Vaccine (2 of 2 - PCV) [facility] Start: 2008 Zoster Vaccines (1 of 2) Zoste r Vaccines (1 of 2) [facility] Start: 1998 Screening for malign ant neoplasm of breast Mammogram [facility] Start: 1976 Diabetes mellitus screening Diabetes Screening [facility] Start: 1976 Hepatitis C screening Hepatitis C [facility] Start: 1959 MMR Vaccines (1 of 1 - Standard series) MMR Vaccines (1 of 1 - Standard series) [facility] Start: 1958 Annual wellness visit Welcome to Medicare Visit [facility] Start: 1958 Lipid panel Lipid Panel [facility] Start: 1958 Screening for malign ant neoplasm of colon [facility] Start: 1958 Screening for osteoporosis Bone Dens ity Scan [facility] Albumin [Moles/volum e] in Serum or Plasma [facility] Albumin/Globulin ratio [facility] Ambulatory ECG [facility] Anion gap in Serum o r Plasma [facility] Anion gap in Serum o r Plasma [facility] Bilirubin measuremen t, urine [facility] Blood type and Indir ect antibody screen panel - Blood Type and Screen Lab Timed Every 72 hours (Lab) until discontinued starting 03/25/2025, 1 completed [facility] Work Phone: Comment on above: Every 72 hours (Lab) until discontinued starting 03/25/2025, 1 completed Blood type and Indir ect antibody screen panel - Blood Type And Screen Lab STAT 03/21/2025 2:37 PM EDT [facility] Service Area Work Phone: BUN/Creatinine ratio [facility] BUN/Creatinine ratio [facility] Calcium [Mass/volume ] in Serum or Plasma [facility] Calcium [Mass/volume ] in Serum or Plasma [facility] Capsule Endoscopy Sm all Intestine Capsule Endoscopy Small Intestine GI Routine Once as needed for 1 Occurrences starting 03/22/2025 [facility] Work Phone: Comment on above: Once as needed for 1 Occurrences starting 03/22/2025 Carbon dioxide, tota l [Moles/volume] in Central venous blood [facility] Carbon dioxide, tota l [Moles/volume] in Central venous blood [facility] CBC W Auto Different ial panel - Blood [facility] CBC W Auto Different ial panel - Blood CBC and Auto Differential Lab Routine Morning draw (Lab) until discontinued starting 03/23/2025, 4 completed [facility] Work Phone: Comment on above: Morning draw (Lab) u ntil discontinued starting 03/23/2025, 4 completed Celiac disease screen [facility] Comprehensive metabo lic 2000 panel - Serum or Plasma [facility] Creatinine [Mass/vol ume] in Serum or Plasma [facility] Creatinine [Mass/vol ume] in Serum or Plasma [facility] CT Chest [facility] CT Chest [facility] Electrocardiogram, 1 2-lead PRN ACS symptoms Electrocardiogram, 12-lead PRN ACS symptoms ECG Routine As needed until discontinued starting 03/21/2025, 1 completed [facility] Work Phone: Comment on above: As needed until disc ontinued starting 03/21/2025, 1 completed Electrophoresis: [id number] [facility] Electrophoresis: martha ma globulin [facility] Erythrocyte mean corpuscular volume determination [facility] Erythrocyte mean corpuscular volume determination [facility] Ferritin [Mass/volum e] in Serum or Plasma [facility] Ferritin [Mass/volum e] in Serum or Plasma [facility] Gliadin peptide IgA Ab [Units/volume] in Serum [facility] Gliadin peptide IgG Ab [Units/volume] in Serum [facility] Globulin measurement [facility] Glucose [Mass/volume ] in Serum or Plasma [facility] Glucose [Mass/volume ] in Serum or Plasma [facility] Haptoglobin [Mass/vo lume] in Serum or Plasma [facility] Hematocrit [Volume Fraction] of Blood [facility] Hematocrit [Volume Fraction] of Blood [facility] Hematocrit [Volume Fraction] of Blood [facility] Hematocrit [Volume Fraction] of Blood [facility] Hematocrit [Volume Fraction] of Blood [facility] Hematocrit [Volume Fraction] of Blood [facility] Hematocrit [Volume Fraction] of Blood [facility] Hemoglobin [Mass/vol ume] in Blood [facility] Hemoglobin [Mass/vol ume] in Blood [facility] Hemoglobin [Mass/vol ume] in Blood [facility] Hemoglobin [Mass/vol ume] in Blood [facility] Hemoglobin [Mass/vol ume] in Blood [facility] Hemoglobin [Mass/vol ume] in Blood [facility] Hemoglobin [Presence ] in Urine [facility] IgA [Mass/volume] in Serum or Plasma [facility] IgA [Mass/volume] in Serum or Plasma [facility] IgG [Mass/volume] in Serum or Plasma [facility] IgM [Mass/volume] in Serum or Plasma [facility] Iron [Mass/mass] in Unspecified specimen [facility] Iron and Iron bindin g capacity panel - Serum or Plasma [facility] Tul[place]/lambda light c starr ratio [facility] Laboratory data interpretation [facility] Lactate dehydrogenas e measurement [facility] Lambda light chains. free [Mass/volume] in Serum or Plasma [facility] Leukocytes [#/volume ] in Blood [facility] Leukocytes [#/volume ] in Blood [facility] Magnesium [Mass/volu me] in Serum or Plasma Magnesium Lab Routine Morning draw (Lab) until discontinued starting 03/23/2025, 4 completed [facility] Work Phone: Comment on above: Morning draw (Lab) u ntil discontinued starting 03/23/2025, 4 completed Mean corpuscular hemoglobin concentration determination [facility] Mean corpuscular hemoglobin concentration determination [facility] Mean corpuscular hemoglobin determination [facility] Mean corpuscular hemoglobin determination [facility] Measurement of immunoglobulin A in serum specimen [facility] Measurement of keton es in urine using dipstick [facility] Measurement of renal function [facility] Measurement of renal function [facility] Microscopic urinalysis [facility] Neutrophil count [facility] Neutrophil count [facility] Neutrophil percent differential count [facility] Neutrophil percent differential count [facility] Organism count, microscopic method [facility] Patient Education [facility] Work Phone: Patient referral [facility] Work Phone: pH of Urine [facility] Platelets [#/volume] in Blood [facility] Platelets [#/volume] in Blood [facility] Potassium measurement [facility] Potassium measurement [facility] End: 03-22-2025 Prepare RBC: 2 Units Prepare RBC: 2 Units Blood Bank STAT Once for 1 Occurrences starting 03/22/2025 until 03/22/2025 [facility] Work Phone: Comment on above: Once for 1 Occurrenc es starting 03/22/2025 until 03/22/2025 Protein electrophore sis panel - Serum or Plasma [facility] Red blood cell count [facility] Red blood cell count [facility] Red cell distributio n width determination [facility] Red cell distributio n width determination [facility] Renal function 2000 panel - Serum or Plasma Renal function panel Lab Routine Morning draw (Lab) until discontinued starting 03/23/2025, 4 completed [facility] Work Phone: Comment on above: Morning draw (Lab) u ntil discontinued starting 03/23/2025, 4 completed Reticulocyte count [facility] Serum chloride measurement [place] Serum chloride measurement [place] Serum immunofixation [facility] Sodium measurement [facility] Sodium measurement [facility] Specific gravity of Urine [facility] Tissue transglutamin ase IgA Ab [Units/volume] in Serum [facility] Tissue transglutamin ase IgA Ab [Units/volume] in Serum [facility] Transferrin [Mass/vo lume] in Serum or Plasma [facility] Troponin T.cardiac [Mass/volume] in Serum or Plasma by High sensitivity method [facility] Urea nitrogen [Mass/volume] in Serum or Plasma [facility] Urea nitrogen [Mass/volume] in Serum or Plasma [facility] Urine dipstick for glucose [facility] Urine dipstick for leukocyte esterase [facility] Urine dipstick for nitrite [facility] Urine dipstick for protein [place] Urine examination [facility] Urine kappa light ch ain measurement [facility] Urine microscopy: epithelial cells [facility] Urine microscopy: re d cells [facility] Urobilinogen [Presen ce] in Urine [facility] End: 03-21-2025 US Guided IV Insertion US Guided IV Insertion Procedures Routine Once for 1 Occurrences starting 03/21/2025 until 03/21/2025 [facility] Service Area Work Phone: Comment on above: Once for 1 Occurrenc es starting 03/21/2025 until 03/21/2025 US Heart [facility] White blood cell count [facility] Immunizations Immunization Date Immunization Notes Care Provider Raul cabrera 10-01-2021 COVID-19, mRNA, LNP- S, PF, 30 mcg/0.3 mL dose; Translations: [[employer] COVID-19 Vaccine] BRANDEN AKERS MD [facility] 01-27-2021 SARS-CoV-2 mRNA (tozinameran) vaccine BRANDEN AKERS MD [facility] 01-06-2021 SARS-CoV-2 mRNA (tozinameran) vaccine BRANDEN AKERS MD [facility] Comment on above: Result Comment: 2020: [id number] 08-28-2020 influenza, injectabl e, quadrivalent, preservative free; Translations: [Fluarix PF Quadrivalent ] BRANDEN AKERS MD [facility] 08-28-2020 influenza virus vacc ine, unspecified formulation Nohemy Palumbo Work Phone: [facility] Work Phone: 08-22-2019 influenza virus vacc ine, unspecified formulation BRANDEN AKERS MD [facility] 08-18-2015 influenza virus vacc ine, unspecified formulation BRANDEN AKERS MD [facility] 05-01-2014 pneumococcal polysaccharide vaccine, 23 valent BRANDEN AKERS MD [facility] 02-16-2013 tetanus toxoid, redu guevara diphtheria toxoid, and acellular pertussis vaccine, adsorbed BRANDEN AKERS MD [facility] 1960 influenza virus vacc ine, unspecified formulation BRANDEN AKERS MD [facility] Payers Date Payer Category Payer Private Health Insurance def [id number] 2024 Unknown [id number] 2024 Medicare (Managed Care) [facility] MEDICARE [id number] 2024 Medicare [id number] 2024 Self-pay [id number] 2023 Unknown [id number] 1960 Unknown [id number] 2.16.840.1.627515.3.579.2. 1244 1960 Unknown [id number] 2.16840.1.619359.3.579.2. 1244 1958 Unknown [id number] 2.16840.1.751710.3.579.2. 1958 Unknown [id number] 2.16840.1.438179.3.579.2. 1958 Unknown [id number] 2.16.840.1.837926.3.579.2. 1958 Unknown [id number] 2.16840.1.593366.3.579.2. 1958 Unknown [id number] 2.16840.1.266275.3.579.2. 1958 Unknown [id number] 2.16840.1.270943.3.579.2. 1958 Unknown [id number] 2.16.840.1.612363.3.579.2. 1958 Unknown [id number] 2.16.840.1.601991.3.579.2. 1958 Unknown [id number] 2.16.840.1.327895.3.579.2. 1958 Unknown [id number] 2.16.840.1.703742.3.579.2. 627 1958 Unknown [id number] 2..840.1.970243.3.579.2. 62 1960 Unknown [id number] 2..840.1.549840.3.579.2. 1958 Unknown [id number] 2.840.1.367117.3.579.2. 1958 Unknown [id number] 2.840.1.112492.3.579.2. 1958 Unknown [id number] 2.840.1.263809.3.579.2. 62 Unknown [id number] Unknown [id number] 2.840.1.834006.3.579.2. 462 Unknown [id number] 2.840.1.335423.3.579.2. 462 Unknown [id number] 2.840.1.329322.3.579.2. 462 Unknown [id number] 2.840.1.541096.3.579.2. 462 Unknown [id number] 2.840.1.255217.3.579.2. 462 Unknown [id number] 2.840.1.180650.3.579.2. 462 Unknown [id number] 2.16840.1.244276.3.579.2. 462 Unknown [id number] 2.16.840.1.035406.3.579.2. 462 Unknown [id number] 2.16840.1.575017.3.579.2. 462 Unknown [id number] 2.16840.1.817072.3.579.2. 462 Unknown [id number] 2.16840.1.941573.3.579.2. 462 Unknown [id number] 2.16.840.1.918011.3.579.2. 462 Unknown [id number] 2.16.840.1.339943.3.579.2. 462 Unknown [id number] 2.16.840.1.917609.3.579.2. 462 Unknown [id number] 2.16840.1.354188.3.579.2. 462 Unknown [id number] 2.16840.1.170408.3.579.2. 462 Unknown [id number] 2.840.1.222452.3.579.2. 462 Unknown [id number] 2.840.1.703774.3.579.2. 462 Unknown [id number] 2.840.1.442601.3.579.2. 462 Unknown [id number] 2.840.1.510810.3.579.2. 462 Unknown [id number] 2.840.1.734935.3.579.2. 462 Unknown [id number] 2.840.1.737988.3.579.2. 462 Unknown [id number] 2.16840.1.435962.3.579.2. 462 Unknown [id number] 2.840.1.568871.3.579.2. 462 Unknown [id number] 2.16840.1.787009.3.579.2. 462 Unknown [id number] 2.16840.1.387128.3.579.2. 462 Unknown [id number] 2.16840.1.374660.3.579.2. 462 Unknown [id number] 2.16.840.1.540778.3.579.2. 462 Unknown [id number] 2.16840.1.323369.3.579.2. 462 Unknown [id number] 2.16.840.1.031646.3.579.2. 462 Unknown [id number] 2.16.840.1.472646.3.579.2. 462 Unknown [id number] 2.16.840.1.921605.3.579.2. 462 Unknown [id number] 2.16.840.1.321797.3.579.2. 462 Unknown [id number] 2.16.840.1.305330.3.579.2. 462 Unknown [id number] 2.16.840.1.902095.3.579.2. 462 Unknown [id number] 2.16.840.1.591446.3.579.2. 462 Unknown [id number] 2.16.840.1.235101.3.579.2. 462 Unknown [id number] 2.16.840.1.860711.3.579.2. 462 Unknown [id number] 2.16.840.1.001942.3.579.2. 462 Unknown [id number] 2.16.840.1.505916.3.579.2. 462 Unknown [id number] 2.16.840.1.796998.3.579.2. 462 Unknown [id number] 2.16.840.1.233916.3.579.2. 462 Unknown [id number] 2.16.840.1.952421.3.579.2. 462 Unknown [id number] 2.16.840.1.536802.3.579.2. 462 Unknown [id number] 2.16.840.1.960914.3.579.2. 462 Unknown [id number] 2.16.840.1.491203.3.579.2. 462 Unknown [id number] 2.16.840.1.506659.3.579.2. 462 Unknown [id number] 2.16.840.1.893339.3.579.2. 462 Unknown [id number] 2.16.840.1.048146.3.579.2. 462 Unknown [id number] 2.16.840.1.128837.3.579.2. 462 Unknown [id number] 2.16.840.1.152748.3.579.2. 462 Unknown [id number] 2.16.840.1.228518.3.579.2. 462 Unknown [id number] 2.16.840.1.234753.3.579.2. 462 Unknown [id number] 2.16.840.1.811637.3.579.2. 462 Unknown [id number] 2.16.840.1.015176.3.579.2. 462 Unknown [id number] 2.16.840.1.815123.3.579.2. 462 Unknown [id number] 2.16.840.1.139896.3.579.2. 462 Unknown [id number] 2.16.840.1.548161.3.579.2. 462 Unknown [id number] 2.16.840.1.748047.3.579.2. 462 Unknown [id number] 2.16.840.1.037929.3.579.2. 462 Unknown [id number] 2.16.840.1.613865.3.579.2. 462 Social History Date Type Detail Facility Start: 12-28-2019 End: 12-05-2024 Light tobacco smoker (finding) [facility] Sex Assigned At [facility] Start: 12-01-2005 End: 02-18-2025 Sex Female (finding) [facility] Start: 01-02-2025 End: 03-20-2025 Tobacco smoking status CTIS Smokes tobacco daily (finding) [facility] Start: 1960 Sex Assigned At Female [facility] Start: 02-04-2025 Tobacco smoking status NHIS Ex-smoker (finding) [facility] Start: 10-24-1992 History of tobacco use Cigarette Smoker [facility] Work Phone: Start: 03-21-2025 End: 03-22-2025 Cigarettes smoked current (pack per day) - Reported 0.5 [facility] Work Phone: Start: 03-21-2025 Tobacco use and exposure Smokeless tobacco non-user [facility] Work Phone: Start: 03-25-2025 Alcoholic beverage intake Lifetime non-drinker (finding) [facility] Work Phone: Start: 03-21-2025 End: 03-22-2025 [id number] Health Literacy [facility] Work Phone: How often do you nee d to have someone help you when you read instructions, pamphlets, or other written material from your doctor or pharmacy [SILS] Never [facility] Work Phone: Has the [employer], gas, oil, or water [employer] threatened to shut off services in your home in past 12Mo No [facility] Work Phone: Are you now , , , , never or living with a partner? [facility] Work Phone: How many standard drinks containing alcohol do you have on a typical day? Patient does not drink [facility] Work Phone: How hard is it for you to pay for the very basics like food, housing, medical care, and heating Not very hard [facility] Do you feel stress - tense, restless, nervous, or anxious, or unable to sleep at night because your mind is troubled all the time - these days [OSQ] Not at all [facility] Work Phone: (I/We) worried whether (my/our) food would run out before (I/we) got money to buy more. Never true [facility] Work Phone: Start: 1960 Sex assigned at Not on file [facility] Work Phone: Start: 03-11-2025 End: 03-21-2025 Exposure to SARS-CoV-2 (event) Not sure [facility] NEGATED: Highlighted row Not [facility] Medical Equipment Procedure Code Equipment Code Equipment Origin al Text Equipment Identifier Dates Colonoscopy [id number] FDA Start: 02-21-2025 ()[id number] FDA Start: 10-09-2024 ([id number]) ()[id number] FDA Start: 02-04-2025 Goals Date Patient Goal Desired Activity /State Functional Status Date Assessment Result Facility 03-21-2025 Total score [AUDIT-C] 0 03/21/20 25 10:12 PM EDT Larry Key RN [facility] Work Phone: 03-21-2025 Patient Health Questionnaire 2 item (PHQ-2) [Reported] [facility] Work Phone: 03-21-2025 [facility] s everity rating scale screener - recent [C-SSRS] [facility] Work Phone: 03-04-2025 Functional status Chair [facility] Work Phone: 02-22-2025 Functional status Up ad radha;Bath room Privilege [facility] Work Phone: 02-05-2025 Functional status Bedrest [facility] Work Phone: 10-11-2024 Functional status Ambulates [facility] Work Phone: [facility] Work Phone: Mental Status Date Assessment Result Facility 03-04-2025 Cognitive function Voice/Name [facility] Work Phone: 02-28-2025 Cognitive function Voice/Name [facility] Work Phone: 02-22-2025 Cognitive function Voice/Name [facility] Work Phone: 02-06-2025 Cognitive function Voice/Name [facility] Work Phone: 02-04-2025 Cognitive function Awake;Alert;A ppropriate;Fol lows Commands [facility] Work Phone: 10-11-2024 Cognitive function Voice/Name [facility] Work Phone: Clinical Notes 07-04-2021 to 04-09-2025 Note Date & Type Note Facility 04-09-2025 Note Exam Date Time Procedure Performing Provider Status 04/09/25 11:34 AM MA Mammo Screening B ilateral w/DEONDRE Murray MD; Auth (Verified) [id number] ORIGINAL FROM: [address] [address] PROCEDURE FOR: MILY LONG [address] [place] [id number] Home: PID#: [id number] Exam#: [id number] : 1960 Age: 65 TO: FLORIN BAILEY [address] [place] [address] Fax: NO FAX EXAMINATION: SCREENING DIGITAL BILATERAL [...] addition to annual mammographic screening per the [employer]. I have personally reviewed the [...] 04/09/2025 3:23:06 PM Ordering Provider: FLORIN BAILEY Combustion Analyst: LINDA SHEIKH RT (R)(M) letter sent: Normal BI-RADS 1 and 2 Mammogram BI-RADS: 2 Benign [facility]06-03-2025 Plan of care note* Care Plan [...] appropriate for maintaining nutritional needs Outcome: Met [facility] Work Phone: 1(236) 423-366906-03-2025 Miscellaneous Notes* Care Plan - Hallie Valentin [...] EKG. She was taken emergently to cardiac canvas shop laborer with FREDDIE placed to mid L circumflex [...] goal > 8 in setting of recent LA with FREDDIE - Protonix 40mg IV BID [...] IV BID Code status: Full Surrogate: Haroon [phone] * Care Plan - Steve Rain RN [...] Steve Rain RN Outcome: Progressing 03/22/20252222 by Setve Rain RN Outcome: Progressing * Assessment & [...] goal > 8 in setting of recent LA with FREDDIE - Protonix 40mg IV BID [...] IV BID Code status: Full Surrogate: Haroon [phone] documented in this [facility] Work Phone: 1(490) 277-528706-03-2025 Nurse Note* Hallie Valentin RN - 03/26/2025 12:23 PM EDT Patient discharged home with meds to beds delivered to patient. Discharge instruction reviewed withpatient and family who verbalized understanding, belongings at bedside and IV access discontinued and covered with gauze and tape. No complaints voiced prior to discharge. Patient transport requestedfor patient. [facility]06-03-2025 Nurse Note* Hallie Valentin RN - 03/26/2025 12:23 PM EDT Patient discharged home with meds to beds delivered to patient. Discharge instruction reviewed withpatient and family who verbalized understanding, belongings at bedside and IV access discontinued and covered with gauze and tape. No complaints voiced prior to discharge. Patient transport requestedfor patient. documented in this [facility] Work Phone: 1(537) 567-546806-03-2025 Hospital course Narrative* Christine Osborne MD - [...] EKG. She was taken emergently to cardiac canvas shop laborer with FREDDIE placed to mid L circumflex [...] further overt bleeding. Follow up with primary it systems administrator, compress machine operator, and PCP. Kendall Brower MD Division of Gastroenterology and Liver Disease [facility] Work Phone: 1(802) 724-570506-03-2025 Plan of care note* Care Plan - Harmony Greer LPN - 03/26/2025 6:51 AM EDT The patient's goals for the shift include The clinical goals for the shift include Pt will remain safe and free from falls and injuries during shift Over the shift, the patient did make progress toward the following goals [facility]06-02-2025 Plan of care note* Care Plan [...] monitored and maintained or improved Outcome: Progressing [facility] Work Phone: 1(149) 841-943106-02-2025 History and physical note* Matti Hodge MD [...] History: Diagnosis Date GERD (gastroesophageal reflux disease) LA (myocardial infarction) (Multi) Sleep apnea [2] History reviewed. No pertinent surgical history. [3] No family history on file. [4] Allergies Allergen Reactions Sulfa (Sulfonamide Antibiotics) Diarrhea Sulfamethoxazole-Trimethoprim Nausea/vomiting Penicillins Hives and Rash [facility] Work Phone: 1(550) 559-501706-02-2025 History and physical note* Matti Hodge MD [...] History: Diagnosis Date GERD (gastroesophageal reflux disease) LA (myocardial infarction) (Multi) Sleep apnea [2] History [...] EKG. She was taken emergently to cardiac canvas shop laborer with FREDDIE placed to mid L circumflex [...] recently presented to her local ED in [place] with similar symptoms on 03/18 and at [...] goal > 8 in setting of recent LA with FREDDIE - Protonix 40mg IV BID [...] IV BID Code status: Full Surrogate: Haroon [phone] Chucho Wilson MD PGY-2 Internal Medicine [1] [...] documented in the note. [facility] Work Phone: 1(176) 801-818506-02-2025 Hospital Discharge instructions* Discharge Instructions* Christine Osborne MD - 03/25/2025 11:42 AM EDT Dear Mily Long, You were admitted to [facility] for dark stools concerning for a GI [...] bleeding. We recommend follow up with your it systems administrator or PCP in 1-2 weeks to make sure your labs remain stable. Additionally, you had a chest xray done when you came to the hospital which showed a possible pulmonary nodule, but it was not well characterized. We recommend discussing this with your PCP and repeating a chest xray with them in about one month. Appointments/follow-up: Please schedule follow up with your compress machine operator Please schedule follow up with your it systems administrator Chest Xray in 4 weeks- please discuss this with your PCP Please ask your PCP or Gi doctor to check your hemoglobin level to make sure it remains stable It was a pleasure taking care of you and we wish you all the best with your recovery, Your Care Team documented [facility] Work Phone: 1(894) 790-964406-02-2025 Consult note* Hailey Clark RDN, LD - [...] 2:55 PM - HAILEY CLARK RDN, LD [facility]06-02-2025 Consult note* Hailey Clark RDN, LD [...] EKG. She was taken emergently to cardiac canvas shop laborer with FREDDIE placed to mid L circumflex [...] recently presented to her local ED in [place] with similar symptoms on 03/18 and at [...] apex and no significant valvular abnormalities Cath: [facility] 02/04/2025 99% stenosis with thrombus in the mid circumflex, underwent successful PCI with FREDDIE to mid circumflex and PTCA alone to the D1 [facility] in 09/2024 LM: Mild luminal irregularities LAD: [...] with Dr. Saxena. General Cardiology Consult Pager: [phone] (weekday 7AM-6PM and weekend 7AM-2PM) and other: [phone] EP Consult Pager: [phone] (weekday 7AM-6PM and weekend 7AM-2PM) and other: [phone] CICU Fellow Pager: [phone] anytime EP Device Nurse Pager: [phone] (weekday 7AM-4PM) Advanced Heart Failure Consult Pager: [phone] anytime Prince Larry MD [employer] [1] Current Facility-Administered Medications: aspirin chewable tablet [...] Note Department of Gastroenterology & Hepatology [facility] March 22, 2025 Patient: Mily Long Medical Record: [id number] Reason for Consult: Melena with SOB Requesting [...] min Stress: No Stress Concern Present (03/21/2025) [place] of Occupational Health - Occupational Stress Questionnaire Feeling of Stress : Not at all Social Connections: Moderately Integrated (03/21/2025) Social Connection and Isolation Panel [NHANES] Frequency of Communication with Friends and Family: Three times a week Frequency of Social Gatherings with Friends and Family: Twice a week Attends Orthodoxy Services: 1 to 4 times per year [...] redirect to the Timeline version of the Intoloop SmartLink. Intake/Output Summary (Last 24 hours) at [...] GI procedures: Capsule Endoscopy Report PillCam SB3 [facility] [address] [place] [address] Friend Patient Name: Mily Long ID: [id number] Date: 1960 Gender: Female Capsule ID: [id number] Procedure Date: 03/08/2025 Reason for Referral GI bleed Anemia 64-year-old female with history of recent GI bleeding as well as STEMI (now on Brilinta and aspirin) presenting with palpitations and generalized malaise as well as shortness of breath. She was originally evaluated at [facility] in September [address] elevated myocardial [...] Meir Hood MD, PhD Gastroenterology Fellow, PGY-6 [facility] Division of Gastroenterology and Liver Disease Thank you for the consultation. Gastroenterology will continue to the follow the patient. Please do not hesitate to contact me on Haiku or page [phone] if there are any further questions between the weekday hours of 7 AM - 5 PM. If there is an urgent concern during the weekend, after-hours, or holidays; then [place] [phone]. Thank you. SIGNATURE: Meir Hood MD PATIENT [...] Gastroenterology and Liver Disease [facility] Work Phone: 1(806) 106-531306-02-2025 History of Present illness Narrative* Christine Osborne [...] and clinical correlation Confirmed by Pilar Borja ([id number]) on 03/22/2025 12:59:17 AM Chest Xray 03/21 [...] goal > 8 in setting of recent LA with FREDDIE - Protonix 40mg IV BID [...] IV BID Code status: Full Surrogate: Haroon [phone] Contact for updates: Marcin Long (daughter in law) [phone] Christine Osborne MD PGY1 Neurology [1] aspirin, [...] goal > 8 in setting of recent LA with FREDDIE - Protonix 40mg IV BID [...] IV BID Code status: Full Surrogate: Haroon [phone] Inocencio Perry MD [1] aspirin, 81 mg, [...] for SB enteroscopy on Mon. NPO at [place]. Will need to remain on DAPT givenrecent [...] goal > 8 in setting of recent LA with FREDDIE - Protonix 40mg IV BID [...] IV BID Code status: Full Surrogate: Haroon [phone] Shortness of breath Laurie Arceo MD [1] [...] were you homeless or living in a correction (including now)? N Transportation Needs In the [...] Met with patient and Introduced myself as laboratory animal care veterinarian and member of the Care Transitions team [...] procedure and c/s with Cardiac Payor: [facility] [place] [facility] [place] Discharge disposition: Home no needs Potential Barriers: None ADOD: 03/26 TCC will continue to follow and update the plan as warranted. TINA Sauceda-hand pleater Coordinator (TCC) [phone] ext [phone] * Deondre Newell, - 03/22/2025 6:57 AM [...] Dorcas Roman 03/21/2025 5:10 PM Dictation workstation: [id number] Cardiology, Vascular, and Other Imaging ECG 12 lead Result Date: 03/22/2025 Normal sinus rhythm Normal ECG No previous ECGs available See ED provider note for full interpretation and clinical correlation Confirmed by Pilar Borja ([id number]) on 03/22/2025 12:59:17 AM Endoscopic history: EGD [...] goal > 8 in setting of recent LA with FREDDIE - Protonix 40mg IV BID [...] IV BID Code status: Full Surrogate: Haroon [phone] Patient and plan discussed with attending physician. [...] (shortness of breath). Pharmacy reviewed the patient's piosy-qi-xkgdockrr medications and allergies for accuracy. Medications ADDED: All medications listed below Medications CHANGED: None Medications REMOVED: None The list below reflects the updated FISHER OYSTER list. Prior to Admission Medications Prescriptions Last [...] states that she hasn't taken Fabiano Bang Bottle Dealer 03/21/25 Secure Chat preferred If no response call [phone] or [employer] Rec Cosigned by Prince Beckham RP at 03/22/2025 5:13 AM EDT * [...] has been getting blood transfusions regularly at [place] emergency department. This patient was signed out [...] is on antidual platelet due to recent LA and stent so that GI and cardiology [...] above. Nohemy Díaz MD documented in this [facility]Un[facility] Work Phone: 1(817) 681-914406-02-2025 Plan of care note* Care Plan - [...] appropriate for maintaining nutritional needs Outcome: Progressing [facility] Plan of care note* Care Plan [...] from falls or injury during the shift. [facility]06-01-2025 Plan of care note* Care Plan [...] appropriate for maintaining nutritional needs Outcome: Progressing [facility] Work Phone: 1(214) 155-751205-31-2025 Hospital Note* Hospital Course - Christine Osborne [...] EKG. She was taken emergently to cardiac canvas shop laborer with FREDDIE placed to mid L circumflex [...] 1 month. She was discharged home 03/26/2025. [facility] Work Phone: 1(204) 958-706605-31-2025 Evaluation + Plan note* Assessment & Plan [...] goal > 8 in setting of recent LA with FREDDIE - Protonix 40mg IV BID [...] IV BID Code status: Full Surrogate: Haroon [phone] [facility] Work Phone: 1(930) 981-395005-31-2025 Plan of care note* Care Plan - [...] 2223 by Steve Rain RN Outcome: Progressing [facility]-30-2025 Consult note* Prince Larry MD - [...] EKG. 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 Saxena. General Cardiology Consult Pager: [phone] (weekday 7AM-6PM and weekend 7AM-2PM) and other: [phone] EP Consult Pager: [phone] (weekday 7AM-6PM and weekend 7AM-2PM) and other: [phone] CICU Fellow Pager: [phone] anytime EP Device Nurse Pager: [phone] (weekday 7AM-4PM) Advanced Heart Failure Consult Pager: [phone] anytime Prince Larry MD Snowmaker [1] Current Facility-Administered Medications: aspirin chewable tablet [...] documented in the note. Dave Saxena MD [facility] Work Phone: 1(671) 563-488305-30-2025 Consult note* Meir Hood MD - 03/22/2025 2:42 PM EDT Gastroenterology Consult Service INITIAL CONSULT Note Department of Gastroenterology & Hepatology [facility] March 22, 2025 Patient: Mily Long Medical Record: [id number] Reason for Consult: Melena with SOB Requesting [...] min Stress: No Stress Concern Present (03/21/2025) [place] of Occupational Health - Occupational Stress Questionnaire Feeling of Stress : Not at all Social Connections: Moderately Integrated (03/21/2025) Social Connection and Isolation Panel [NHANES] Frequency of Communication with Friends and Family: Three times a week Frequency of Social Gatherings with Friends and Family: Twice a week Attends Orthodoxy Services: 1 to 4 times per year [...] redirect to the Timeline version of the Intoloop SmartLink. Intake/Output Summary (Last 24 hours) at [...] GI procedures: Capsule Endoscopy Report PillCam SB3 [facility] [address] [place] [address] DrAlexis Friend Patient Name: Mily Long ID: [id number] Date: 1960 Gender: Female Capsule ID: [id number] Procedure Date: 03/08/2025 Reason for Referral GI bleed Anemia 64-year-old female with history of recent GI bleeding as well as STEMI (now on Brilinta and aspirin) presenting with palpitations and generalized malaise as well as shortness of breath. She was originally evaluated at [facility] in September [address] elevated myocardial [...] Meir Hood MD, PhD Gastroenterology Fellow, PGY-6 [facility] Division of Gastroenterology and Liver Disease Thank you for the consultation. Gastroenterology will continue to the follow the patient. Please do not hesitate to contact me on Haiku or page [phone] if there are any further questions between the weekday hours of 7 AM - 5 PM. If there is an urgent concern during the weekend, after-hours, or holidays; [place] [phone]. Thank you. SIGNATURE: Meir Hood MD PATIENT [...] MD Division of Gastroenterology and Liver Disease [facility] Work Phone: 1(135) 378-930805-29-2025 Evaluation + Plan note* Assessment & Plan [...] goal > 8 in setting of recent LA with FREDDIE - Protonix 40mg IV BID [...] IV BID Code status: Full Surrogate: Haroon [phone] [facility] Work Phone: 1([phone]) 206-378505-29-2025 History and physical note* Chucho Wilson MD [...] EKG. 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 [facility] Work Phone: [phone]) 676-353505-29-2025 Physician Emergency department Note* Hilary Daugherty MD [...] has been getting blood transfusions regularly at [place] emergency department. She was scheduled to have [...] bleed. Patient has a paper chart from [facility] indicating that she had a colonoscopy on [...] 1545 Shortness of breath Nohemy Palumbo DO [facility] Work Phone: [phone]) 893-382305-29-2025 Emergency department Note* Hilary Daugherty MD - [...] has been getting blood transfusions regularly at [place] emergency department. She was scheduled to have [...] bleed. Patient has a paper chart from [facility] indicating that she had a colonoscopy on [...] care: As documented above in [facility] The patient was discussed with the following consultants/services: None Care Considerations: As documented above in [facility] ED Course: Disposition Patient was signed out to Dr. Agee at 3PM pending completion of their work-up. Please see the next provider's transition of care note for the remainder of the patient's care. Procedures Procedures Patient seen and discussed with ED attending physician. Hilary Daugherty MD Emergency Medicine Hilary Daugherty MD Resident 03/21/25 1164 Hilary Daugherty MD Resident 03/21/25 1745 Cosigned [...] in her small intestines documented in [facility] Work Phone: [phone]) [phone] Emergency department Triage note* Jazzmine Serrato RN - 03/21/2025 12:18 PM EDT Pt states she feels SOB on while ambulating, she believes she's bleeding somewhere internally. Pt states she has tarry back stool but she's taking iron. States states her hemoglobin was 8 yesterday and 7 the day prior. Pt states she has a known bleed in her small intestines [facility] Work Phone: 1([phone]) 492-404905-26-2025 Discharge summary Author Inderjit Gilmore [facility] Note Date/Time March 18, 2025 8:18a m [facility] Medical Records Department [address] [place] [address] Emergency Department Summary 03/18/25 MR#: [id number] Acct: [id number] Name: MILY LONG Rep #:[id number] : [...] marlyn blood. She is on oral iron. [facility] Medical History Anemia GERD (gastroesophageal reflux disease) Smoker CPAP (continuous positive airway pressure) dependence Non-ST elevation LA (NSTEMI) Hematuria UTI (urinary tract infection) Hyperlipidemia Atherosclerosis of coronary artery of [place] heart without angina pectoris Myocardial infarct Home [...] for 1 unit. I spoke with her it systems administrator Dr. Cotto who recommends transfer due to our inability to do small bowel procedures that she needs. She had been previously referred to and has not yet had an appointment. She states she is waiting on a phone call back. I spoke with the it systems administrator on-call for she does not feel that [...] 70.6 H Lymph % (Auto) 18.4 L [place] % (Auto) 6.1 Eos % (Auto) 3.2 [...] See Detail Management Discussion w/another healthcare provider: Poultry Field Service Technician (Dr. Cotto ([facility]) /on-call gastroenterology) Discharge Plan Triage Chief [...] DO [Primary Care Provider] - Print Language: American What to do if you have Problems For any increased pain, shortness of breath, bleeding, nausea or vomiting, chestpain, or any unexpected problems, contact your Primary Care Provider. Call Doctors [facility] ([phone]) or report to the closest Emergency Room. Call 911 if necessary. 03/18/2518 <Electronically signed by Inderjit Gilmore DO> Cosigner Signature (if applicable): CC: Dr. Florin Bailey DO ~ Signed [facility] Work Phone: 1(315) 779-240405-16-2025 Progress note Author Ivan Cotto [facility] Note Date/Time March 08, 2025 8:32a m [facility] [address] [place] [address] OFFICE VISIT Date of Service: 03/08/25 MR#: [id number] Acct: [id number] Patient: MILY LONG Rep #: [id number] : 1960 Provider: Ivan Cotto DO Age/Sex: 64/F Location[facility] Status: Signed Intake Vital Signs 03/03/25 13:24 Height 5 ft 7 in Intake Visit Reasons: Pill Cam Allergies Penicillins Allergy (Verified 03/03/25 02:22) Hives Sulfa (Sulfonamide Antibiotics) Adverse Reaction (Verified 03/03/25 02:22) Diarrhea Have you fallen in the past year?: No Office Procedures Procedure Administration Route: PO Administration Location: [facility] Dispensed Units: 1 Capsule Lot Number: [id number] Expiration Date: 12/21/25 Capsule ID Number: [id number] Consent Form Signed: Yes Reason for Pill Capsule Endoscopy: Gi Bleed Comments: Pt tolerated procedure well. All questions answered. Pill Cam Billing-In Office: [id number] GI TRACT CAPSULE ENDOSCOPY Assessment and Plan [...] Binghamigner Signature: Date (if applicable) CC: ~ [facility] Work Phone: 1(298) 959-742405-12-2025 Consult note Author Rohit Hartmann [facility] Note Date/Time March 04, 2025 6:03p m [facility] Medical Records Department [address] [place] [address] Counseling Note - Pharmacy 03/04/25 1632 MR#: [id number] Acct: [id number] Name: MILY LONG Rep #:[id number] : 1960 64 From: Rohit Hartmann PCP: Dr. Florin Bailey, DO Status:ADM IN Y Location: [place] [address] Pharmacy [place] Med Reconciliation Pharmacy Service has performed discharge [...] 1 g PO DAILY vitamin 02/06/25 cranberry flqu-M-hfqeirsu coagulans 250 mg-30 mg-15 mg tablet (Azo [...] Signature (if applicable): Date CC: ~ Signed [facility] Work Phone: 1(951) 717-453005-12-2025 Discharge summary Author Clyde Long [facility] Note Date/Time March 04, 2025 4:26p [facility] Medical Records Department [address] [place] [address] Discharge Summary 03/04/25 1614 MR#: [id number] Acct: [id number] Name: MILY LONG Rep #:[id number] : 1960 64 From: Clyde Long DO PCP: Dr. Florin Bailey DO Status:ADM IN Location: [place] [address] Providers Date of Admission: 03/03/25 Primary Care Physician: Dr. Florin Bailey DO Consultations 03/03/25 08:27 Consult: Gastroenterology Routine Consulting Provider: [facility] Reason for Consult: GI bleed EMERGENT [...] like the patient be transferred to he [facility]. I clarified with this man that he wanted the patient transferred to [facility], he responded yes (not yelling at this point), but stated that it would be ultimately up to the patient (this man did not establish any eye contact with me during his berating of me). I then asked the patient if she wished to be transferred to [facility] and she politely declined to answerat that [...] tablet 1 g PO DAILY 02/06/25 cranberry vhxg-J-rufcyzsu coagulans 250 mg-30 mg-15 mg tablet (Azo [...] 78.8 H, Lymph % (Auto) 13.0 L, [place] % (Auto) 4.7, Eos % (Auto) 2.2, [...] Self Care Charges/Coding Visit Charges Inpatient E&M: 08941 Disch Hosp >30min 03/04/25 1626 <Electronically signed by Clyde Long DO> Cosigner Signature (if applicable): CC: Dr. Clyde Long DO; Dr. Florin Bailey DO~ Signed [facility] Work Phone: 1(297) 740-455905-12-2025 [facility]05-12-2025 Progress note Author Clyde [facility] Note Date/Time March 04, 2025 12:20 pm [facility] Medical Records Department [address] [place] [address] Progress Note - Hospitalist 03/04/25 0730 MR#: [id number] Acct: [id number] Name: MILY LONG Rep #:[id number] : 1960 64 From: Clyde Long DO PCP: Dr. Florin Bailey DO Status:ADM IN Location: [place] [address] Reason for Visit Reason for Visit: Diagnoses [...] 78.8 H, Lymph % (Auto) 13.0 L, [place] % (Auto) 4.7, Eos % (Auto) 2.2, [...] the patient be transferred to he said [place]. I clarified with this man that he wanted the patient transferred to [facility], he responded yes (not yelling at this point), but stated that it would be ultimately up to the patient (this man did not establish any eye contact with me during his berating of me). I then asked the patient if she wished to be transferred to [facility] and she politely declined to answerat that time. Charges/Coding Visit Charges Inpatient E&M: 52113 Subs Hosp L2 03/04/25 1220 <Electronically signed by Clyde Long DO> Cosigner Signature (if applicable): CC: ~ Signed [facility] Work Phone: 1(762) 228-711105-11-2025 History and physical note Author Clyde Long [facility] Note Date/Time March 03, 2025 7:49a m [facility] Medical Records Department [address] [place] [address] H&P Exam - Hospitalist 03/03/25 0738 MR#: [id number] Acct: [id number] Name: MILY LONG Rep #:[id number] : 1960 64 From: Clyde Long DO PCP: Dr. Florin Bailey, DO Status:ADM [place] Location: [place] [address] HPI - General General Date of Admission: [...] (continuous positive airway pressure) dependence Non-ST elevation LA (NSTEMI) Hematuria UTI (urinary tract infection) Hyperlipidemia Atherosclerosis of coronary artery of [place] tribe heart without angina pectoris Myocardial infarct Home [...] DAILY 5 02/05/25 History mg tablet cranberry asej-U-rhwwncma 2 tab PO DAILY supplement 02/05/25 History [...] % (Auto) 69.3, Lymph % (Auto) 22.1, [place] % (Auto) 5.1, Eos % (Auto) 2.5, [...] evidence of an acute abnormality. Reading Location: [place] [address] Assessment & Plan Assessment/Plan (1) Anemia: PLAN: [...] full code. Charges/Coding Visit Charges Inpatient E&M: 97953 Init Hosp L3 03/03/25 0749 <Electronically signed by Clyde Long DO> Cosigner Signature (if applicable): CC: Dr. Clyde Long, DO; Dr. Florin Bailey, DO~ Signed [facility] Work Phone: 1(957) 145-381905-11-2025 Discharge summary Author Swati [facility] Note Date/Time March 03, 2025 7:23a m [facility] Medical Records Department [address] [place] [address] Emergency Department Summary 03/03/25 MR#: [id number] Acct: [id number] Name: MILY LONG Rep #:[id number] : [...] down to 7.8. Did receive iron transfusion. [facility] Medical History GERD (gastroesophageal reflux disease) Smoker CPAP (continuous positive airway pressure) dependence Non-ST elevation LA (NSTEMI) Hematuria UTI (urinary tract infection) Hyperlipidemia Atherosclerosis of coronary artery of [place] heart without angina pectoris Myocardial infarct Home [...] DAILY 5 02/05/25 History mg tablet cranberry blne-F-ampowdla 2 tab PO DAILY supplement 02/05/25 History [...] % (Auto) 69.3 Lymph % (Auto) 22.1 [place] % (Auto) 5.1 Eos % (Auto) 2.5 [...] (Auto) Neut % (Auto) Lymph % (Auto) [place] % (Auto) Eos % (Auto) Baso % [...] ABO/Rh A1 Subgroup A1 Antigen Typing Rho(D) [employer] Interpret Antibody Screen Crossmatch 03/03/25 03/03/25 03/03/25 02:35 02:35 02:35 WBC RBC Hgb Hct MCV MCH MCHC RDW Std Deviation RDW Coeff of Gerber Plt Count MPV Immature Gran % (Auto) Neut % (Auto) Lymph % (Auto) [place] % (Auto) Eos % (Auto) Baso % [...] ABO/Rh A1 Subgroup A1 Antigen Typing Rho(D) [employer] Interpret Antibody Screen Crossmatch 03/03/25 03/03/25 03/03/25 02:35 02:35 02:35 WBC RBC Hgb Hct MCV MCH MCHC RDW Std Deviation RDW Coeff of Gerber Plt Count MPV Immature Gran % (Auto) Neut % (Auto) Lymph % (Auto) [place] % (Auto) Eos % (Auto) Baso % [...] ABO/Rh A1 Subgroup A1 Antigen Typing Rho(D) [employer] Interpret Antibody Screen Crossmatch 03/03/25 03/03/25 03/03/25 02:35 02:35 05:42 WBC RBC Hgb Hct MCV MCH MCHC RDW Std Deviation RDW Coeff of Gerber Plt Count MPV Immature Gran % (Auto) Neut % (Auto) Lymph % (Auto) [place] % (Auto) Eos % (Auto) Baso % [...] evidence of an acute abnormality. Reading Location: [place] [address] Rhythm Strip Rhythm Strip: Sinus Rhythm Rate: [...] (dyspnea on exertion) Disposition Disposition: Acute Care [facility] What to do if you have Problems For any increased pain, shortness of breath, bleeding, nausea or vomiting, chestpain, or any unexpected problems, contact your Primary Care Provider. Call Doctors Registry ([phone]) or report to the closest Emergency Room. Call 911 if necessary. 03/03/25722 <Electronically signed by Swati Huff DO> Cosigner Signature (if applicable): CC: Dr. Florin Bailey DO ~ Signed [facility] Work Phone: 1(210) 314-111405-11-2025 History and physical note [facility] Medical Records Department [address] [place] [address] H&P Exam - Hospitalist 03/03/2538 MR#: [id number] Acct: [id number] Name: MILY LONG Rep #:[id number] : 1960 64 From: Clyde Long DO PCP: Dr. Florin Bailey DO Status:ADM [place] Location: [place] [address] HPI - General General Date of Admission: [...] (continuous positive airway pressure) dependence Non-ST elevation LA (NSTEMI) Hematuria UTI (urinary tract infection) Hyperlipidemia Atherosclerosis of coronary artery of [place]ian tribe heart without angina pectoris Myocardial infarct Home [...] DAILY 5 02/05/25 History mg tablet cranberry llwd-I-jbqzaxyr 2 tab PO DAILY supplement 02/05/25 History [...] % (Auto) 69.3, Lymph % (Auto) 22.1, [place] % (Auto) 5.1, Eos % (Auto) 2.5, [...] evidence of an acute abnormality. Reading Location: [place] [address] Assessment & Plan Assessment/Plan (1) Anemia: PLAN: [...] full code. Charges/Coding Visit Charges Inpatient E&M: 54188 Init Hosp L3 03/03/25 0749 Cosigner Signature (if applicable): CC: Dr. Clyde Long DO; Dr. Florin Bailey, ~ Signed [facility]05-11-2025 Discharge summary [facility] Medical Records Department [address] [place] [address] Emergency Department Summary 03/03/25 MR#: [id number] Acct: [id number] Name: MILY LONG Rep #:[id number] : [...] down to 7.8. Did receive iron transfusion. [facility] Medical History GERD (gastroesophageal reflux disease) Smoker CPAP (continuous positive airway pressure) dependence Non-ST elevation LA (NSTEMI) Hematuria UTI (urinary tract infection) Hyperlipidemia Atherosclerosis of coronary artery of [place] tribe heart without angina pectoris Myocardial infarct Home [...] DAILY 5 02/05/25 History mg tablet cranberry [id number]-[id number] 2 tab PO DAILY supplement 02/05/25 History [...] % (Auto) 69.3 Lymph % (Auto) 22.1 [place] % (Auto) 5.1 Eos % (Auto) 2.5 [...] ABO/Rh A1 Subgroup A1 Antigen Typing Rho(D) [employer] Interpret Antibody Screen Crossmatch 03/03/25 03/03/25 03/03/25 02:35 02:35 02:35 WBC RBC Hgb Hct MCV MCH MCHC RDW Std Deviation RDW Coeff of Gerber Plt Count MPV Immature Gran % (Auto) Neut % (Auto) Lymph % (Auto) [place] % (Auto) Eos % (Auto) Baso % [...] ABO/Rh A1 Subgroup A1 Antigen Typing Rho(D) [employer] Interpret Antibody Screen Crossmatch 03/03/25 03/03/25 03/03/25 02:35 02:35 02:35 WBC RBC Hgb Hct MCV MCH MCHC RDW Std Deviation RDW Coeff of Gerber Plt Count MPV Immature Gran % (Auto) Neut % (Auto) Lymph % (Auto) [place] % (Auto) Eos % (Auto) Baso % [...] ABO/Rh A1 Subgroup A1 Antigen Typing Rho(D) [employer] Interpret Antibody Screen Crossmatch 03/03/25 03/03/25 03/03/25 02:35 02:35 02:35 WBC RBC Hgb Hct MCV MCH MCHC RDW Std Deviation RDW Coeff of Gerber Plt Count MPV Immature Gran % (Auto) Neut % (Auto) Lymph % (Auto) [place] % (Auto) Eos % (Auto) Baso % [...] ABO/Rh A1 Subgroup A1 Antigen Typing Rho(D) [employer] Interpret Antibody Screen Crossmatch 03/03/25 03/03/25 03/03/25 02:35 02:35 05:42 WBC RBC Hgb Hct MCV MCH MCHC RDW Std Deviation RDW Coeff of Gerber Plt Count MPV Immature Gran % (Auto) Neut % (Auto) Lymph % (Auto) [place] % (Auto) Eos % (Auto) Baso % [...] evidence of an acute abnormality. Reading Location: [place] [address] Rhythm Strip Rhythm Strip: Sinus Rhythm Rate: [...] on exertion) Disposition Disposition: Acute Care Hospital [facility] What to do if you have Problems For any increased pain, shortness of breath, bleeding, nausea or vomiting, chestpain, or any unexpected problems, contact your Primary Care Provider. Call Doctors Registry ([phone]) or report tothe closest Emergency Room. Call 911 if necessary. 03/03/25 23 Cosigner Signature (if applicable): CC: Dr. Florin Bailey, DO ~ Signed [facility]05-11-2025 Radiology Diagnostic study note [facility] Imaging Services [address] [place] [address] Chest 1 View (Portable) MR#: [id number] Acct: [id number] Name: MILY LONG Rep #: [id number] : 1960 F 64 From: Rashad Cunningham MD PCP: Dr. Florin Bailey DO Status: REG ER Study:Chest 1 View (Portable) Date of Exam: 03/03/25 Exam# [id number] Ordering Dr: Shruthi Huff DO PROCEDURE: CHEST [...] evidence of an acute abnormality. Reading Location: [place] [address] CC: Dr. Swati Huff DO; Dr. Florin Bailey DO ~ Store Merchandiser: Signed [facility]05-08-2025 Discharge summary [facility] Medical Records Department [address] [place] [address] Emergency Department Summary 02/28/25 MR#: [id number] Acct: [id number] Name: MILY LONG Rep #:[id number] : 1960 64 From: Orlando Abdi MD PCP: Dr. Florin Bailey DO Status:REG ER Location: ED HPI History of Present Illness Chief Complaint: Palpitations Informant: patient and spouse/S.O. Narrative Narrative: 64-year-old female states she woke up in the middle of the night short of breathand her heart racing, both at the same time. No chest discomfort. [place] lightheaded but did not lose consciousness. She felt a little sweaty. She states it lasted 15 or 20 minutes and then gradually resolved and now she feels better except for feeling tired and weak. She had a stent placed at the end of last year and then another 1 placed a month ago. She continues to smoke. Denies any recent illness. [facility] Medical History GERD (gastroesophageal reflux disease) Smoker CPAP (continuous positive airway pressure) dependence Non-ST elevation LA (NSTEMI) Hematuria UTI (urinary tract infection) Hyperlipidemia Atherosclerosis of coronary artery of [place] heart without angina pectoris Myocardial infarct Home [...] DAILY 5 02/05/25 History mg tablet cranberry ldgn-N-fxnitejb 2 tab PO DAILY supplement 02/05/25 History [...] telemetry data. Patient was talking to the senior technical business analyst telling her that she had the symptoms [...] % (Auto) 60.8 Lymph % (Auto) 28.0 [place] % (Auto) 6.2 Eos % (Auto) 3.6 [...] No evidence of acute disease. Reading Location: [facility] Rhythm Strip Rhythm Strip: Sinus Rhythm [...] Staff] - Keep Patrice appointment Print Language: American Disposition Disposition: Home, Self Care What to do if you have Problems For any increased pain, shortness of breath, bleeding, nausea or vomiting, chestpain, or any unexpected problems, contact your Primary Care Provider. Call [facility] ([phone]) or report tothe closest Emergency Room. Call 911 if necessary. 02/28/25517 Cosigner Signature (if applicable): CC: Dr. Florin Bailey, ~ Signed [facility]05-08-2025 Radiology Diagnostic study note [facility] Imaging Services [address] [place], [place] [address] Chest 1 View (Portable) MR#: [id number] Acct: [id number] Name: MILY LONG Rep #: [id number] : 1960 F 64 From: Ross Owen MD PCP: Dr. Florin Bailey DO Status: REG ER Study:Chest 1 View (Portable) Date of Exam: 02/28/25 Exam# [id number] Ordering Dr: Maryellen Abdi MD PROCEDURE: CHEST 1 VIEW (PORTABLE) 02/28/2025 REASON FOR EXAM: CHEST PAIN TECHNIQUE: Frontal view of the chest. COMPARISON: 02/06/2025 FINDINGS: The lungs appear clear. The cardiac and mediastinal contours appear within limits. Visualized osseous structures appear within limits. RAD/Chest 1 View (Portable) IMPRESSION: No evidence of acute disease. Reading Location: [id number] CC: Dr. Orlando Abdi MD; Dr. Florin Bailey DO ~ Store Merchandiser: Signed [facility]05-02-2025 [facility]04-16-2025 Radiology Diagnostic study note [facility] Imaging Services [address] [place] [address] [id number] CTA Chest W/WO Contrast MR#: [id number] Acct: [id number] Name: MILY LONG Rep #: [id number] : 1960 F 64 From: Oseas Rodríguez MD PCP: Dr. Florin Bailey DO Status: REG ER Study:CTA Chest W/WO Contrast Date of Exam: 02/06/25 Exam# [id number] Ordering Dr: Maya Gilmore DO PROCEDURE: CTA [...] of pulmonary embolism. Emphysematous changes. Reading Location: [facility] CC: Dr. Inderjit Gilmore DO; Dr. Florin Bailey DO ~ Store Merchandiser: Signed [facility]04-16-2025 Radiology Diagnostic study note [facility] Imaging Services [address] [place] [address] Chest 1 View (Portable) MR#: [id number] Acct: [id number] Name: MILY LONG Rep #: [id number] : 1960 F 64 From: Oseas Rodríguez MD PCP: Dr. Florin Bailey DO Status: REG ER Study:Chest 1 View (Portable) Date of Exam: 02/06/25 Exam# [id number] Ordering Dr: Maya Gilmore DO PROCEDURE: CHEST [...] (Portable) IMPRESSION: No Acute Findings. Reading Location: [facility] CC: Dr. Inderjit Gilmore DO; Dr. Florin Bailey DO ~ Store Merchandiser: Signed [facility]04-15-2025 Consult note [facility] Medical Records Department [address] [place] [address] Counseling Note - Pharmacy 02/05/25 1423 MR#: [id number] Acct: [id number] Name: MILY LONG Rep #:[id number] : 1960 64 From: Rohit Hartmann PCP: Dr. Florin Bailey, DO Status:ADM IN Y Location: [address] Med Reconciliation Pharmacy Service has performed [...] Signature (if applicable): Date CC: ~ Signed [facility]04-15-2025 Consult note Author Rohit Hartmann [facility] Note Date/Time February 05, 2025 5:0 0pm [facility] Medical Records Department [address] [place] [address] Counseling Note - Pharmacy 02/05/253 MR#: [id number] Acct: [id number] Name: MILY LONG Rep #:[id number] : 1960 64 From: Rohit Hartmann PCP: Dr. Florin Bailey, DO Status:ADM IN Y Location: [place] [address] [place] Med Reconciliation Pharmacy Service has performed discharge [...] Signature (if applicable): Date CC: ~ Signed [facility] Work Phone: 1(116) 949-139904-15-2025 Discharge summary [facility] Medical Records Department [address] [place] [address] Discharge Summary 02/05/25 1255 MR#: [id number] Acct: [id number] Name: MILY LONG Rep #:[id number] : 1960 64 From: Estrella Hanna MD PCP: Dr. Florin Bailey, DO Status:ADM IN Location: [place] [address] Providers Date of Admission: 02/04/25 Date of Discharge: 02/05/25 Primary Care Physician: Dr. Florin Bailey DO Reason For Visit: nonstemi Diagnosis Discharge Diagnosis (1) Non-ST elevation LA (NSTEMI): Status: Acute Code(s): I21.4 - Non-ST [...] elects to be full code. * Total ocec-sd-pvih time 16 minutes. Medications at Discharge Home [...] she was taken emergently to the cardiac [facility] tohave cardiac cath reevaluated for in-stent stenosis [...] Divya at discharge?: Yes Done w/ Acute LA measure.: Yes Documented LVEF (%): 50 Ischemic [...] Self Care Charges/Coding Visit Charges Inpatient E&M: 64360 Disch Hosp >30min 02/05/25 1602 Cosigner Signature (if applicable): CC: Dr. Estrella Hanna MD; Dr. Florin Bailey DO~ Signed [facility]04-15-2025 Discharge summary Author Estrella Hanna [facility] Note Date/Time February 05, 2025 12: 55pm [facility] Medical Records Department [address] [place] [address] Instructions for Home/Discharge Instructions 02/05/254 MR#: [id number] Acct: [id number] Name: MILY LONG Rep #:[id number] : [...] placed): Home, Self Care 02/05/251254<Electronically signed by Estrlela Hanna MD>Estrella Hanna MD CC: Dr. Florin Bailey DO ~ Signed [facility] Work Phone: 1(468) 595-962204-15-2025 Discharge summary Author Estrella [facility] Note Date/Time February 05, 2025 4:0 2pm [facility] Medical Records Department [address] [place] [address] Discharge Summary 02/05/25 1255 MR#: [id number] Acct: [id number] Name: MILY LONG Rep #:[id number] : 1960 64 From: Estrella Hanna MD PCP: Dr. Florin Bailey, Status:ADM IN [facility] Providers Date of Admission: 02/04/25 Date of Discharge: 02/05/25 Primary Care Physician: Dr. Florin Bailey DO Reason For Visit: nonstemi Diagnosis Discharge Diagnosis (1) Non-ST elevation LA (NSTEMI): Status: Acute Code(s): I21.4 - Non-ST [...] elects to be full code. * Total ertd-si-qzfo time 16 minutes. Medications at Discharge Home [...] she was taken emergently to the cardiac [facility] tohave cardiac cath reevaluated for in-stent stenosis [...] Divya at discharge?: Yes Done w/ Acute LA measure.: Yes Documented LVEF (%): 50 Ischemic [...] Self Care Charges/Coding Visit Charges Inpatient E&M: 96185 Disch Hosp >30min 02/05/25 1602 <Electronically signed by Estrella Hanna MD> Cosigner Signature (if applicable): CC: Dr. Estrella Hanna MD; Dr. Florin Bailey DO~ Signed [facility] Work Phone: 1(811) 731-922804-15-2025 Discharge summary [facility] Medical Records Department [address] [place] [address] Instructions for Home/Discharge Instructions 02/05/25 1254 MR#: [id number] Acct: [id number] Name: MILY LONG Rep #:[id number] : [...] CC: Dr. Florin Bailey DO ~ Signed [facility]04-15-2025 [facility]04-15-2025 Study report [facility] Cardiac Rehab [address] [place] [address] CR: Phase I Education Summary MR#: [id number] Acct: [id number] Name: MILY LONG Rep #:[id number] : 1960 64 From: Adan padilla MD PCP: Dr. Florin Bailey DO DOS: 02/04 General Education Discussed with Patient CAD and cardiac anatomy and function:: Patient communicates acknowledgment and Family communicates acknowledgment Explanation of diagnoses and procedures:: Patient communicates acknowledgment and Family communicates acknowledgment Sign/Symptoms of LA:: Patient communicates acknowledgment and Family communicates acknowledgment [...] protocol. Michelle Signature: Date CC: ~ Signed [facility] Work Phone: [phone]) 258-408804-15-2025 Progress note Author Deondre Leavitt [facility] Note Date/Time February 05, 2025 7:4 4am [facility] Medical Records Department [address] [place] [address] Progress Note - Cardiology 02/05/2538 MR#: [id number] Acct: [id number] Name: MILY LONG Rep #:[id number] : 1960 64 From: Deondre Leavitt MD PCP: Dr. Florin Bailey, DO Status:ADM IN Location: [place] [address] Subjective Subjective Patient reports she is doing [...] 77.1 H, Lymph % (Auto) 15.1 L, [place] % (Auto) 4.9, Eos % (Auto) 1.5, [...] 77.1 H, Lymph % (Auto) 15.1 L, [place] % (Auto) 4.9, Eos % (Auto) 1.5, [...] the thoracic spine is seen. Reading Location: [facility] Physical Exam Const alert and oriented [...] Assessment & Plan Assessment/Plan (1) Non-ST elevation LA (NSTEMI): PLAN: Patient underwent urgent stenting of [...] to home. Charges/Coding Visit Charges Inpatient E&M: 14721 Subs Hosp L3 02/05/25 0744 <Electronically signed by Deondre Leavitt MD> Cosigner Signature (if applicable): CC: ~ Signed [facility] Work Phone: 1([phone]) 207-398404-15-2025 Progress note [facility] Medical Records Department [address] [place] [address] Progress Note - Cardiology 02/05/25 0738 MR#: [id number] Acct: [id number] Name: MILY LONG Rep #:[id number] : 1960 64 From: Deondre Leavitt MD PCP: Dr. Florin Bailey, DO Status:ADM IN Location: [place] [address] Subjective Subjective Patient reports she is doing [...] 77.1 H, Lymph % (Auto) 15.1 L, [place] % (Auto) 4.9, Eos % (Auto) 1.5, [...] 77.1 H, Lymph % (Auto) 15.1 L, [place] % (Auto) 4.9, Eos % (Auto) 1.5, [...] the thoracic spine is seen. Reading Location: [facility] Physical Exam Const alert and oriented [...] Assessment & Plan Assessment/Plan (1) Non-ST elevation LA (NSTEMI): PLAN: Patient underwent urgent stenting of [...] to home. Charges/Coding Visit Charges Inpatient E&M: 98264 [facility] Hosp 02/05/25 0744 Cosigner Signature (if applicable): CC: ~ Signed [facility]04-14-2025 History and physical note Author Estrella Hanna [facility] Note Date/Time February 04, 2025 4:0 4pm [facility] Medical Records Department [address] [place] [address] H&P Exam - Hospitalist 02/04/25 1258 MR#: [id number] Acct: [id number] Name: ETHANMILY ADAMS Rep #:[id number] : 1960 64 From: Estrella Hanna MD PCP: Dr. Florin Bailey, DO Status:ADM IN Location: [facility] VLM630- 1 HPI - General General Date of [...] to be taken emergently to the cardiac [facility] to have cardiac cath reevaluated for in-stent stenosis in the setting of non-STEMI. [facility] Medical History UTI (urinary tract infection) Atherosclerosis of coronary artery of [place] tribe heart without angina pectoris Myocardial infarct Home [...] 77.1 H, Lymph % (Auto) 15.1 L, [place] % (Auto) 4.9, Eos % (Auto) 1.5, [...] the thoracic spine is seen. Reading Location: [facility] Assessment & Plan Assessment/Plan (1) Non-ST elevation LA (NSTEMI): PLAN: Plan #nonstemi * Admitted with [...] elects to be full code. * Total tjoq-bm-rtcn time 16 minutes. Charges/Coding Visit Charges Inpatient E&M: 39549 Init Hosp L3 Procedures Hospitalists Procedures: 47353 Advncd Care Plan 30 Min 02/04/25 1604 <Electronically signed by Estrella Hanna MD> Cosigner Signature (if applicable): CC: Dr. Estrella Hanna MD; Dr. Florin Bailey DO~ Signed [facility] Work Phone: 1([phone]) 945-363604-14-2025 History and physical note [facility] Medical Records Department [address] [place] [address] H&P Exam - Hospitalist 02/04/25 1258 MR#: [id number] Acct: [id number] Name: MILY LONG Rep #:[id number] : 1960 64 From: Estrella Hanna MD PCP: Dr. Florin Bailey, DO Status:ADM IN Location: [place] [id number]- 1 HPI - General General Date of [...] to be taken emergently to the cardiac [facility] to have cardiac cath reevaluated for in-stent stenosis in the setting of non-STEMI. [facility] Medical History UTI (urinary tract infection) Atherosclerosis of coronary artery of [place] heart without angina pectoris Myocardial infarct Home [...] 77.1 H, Lymph % (Auto) 15.1 L, [place] % (Auto) 4.9, Eos % (Auto) 1.5, [...] the thoracic spine is seen. Reading Location: [id number] Assessment & Plan Assessment/Plan (1) Non-ST elevation LA (NSTEMI): PLAN: Plan #nonstemi * Admitted with [...] elects to be full code. * Total osxi-un-offj time 16 minutes. Charges/Coding Visit Charges Inpatient E&M: 44435 Init Hosp L3 Procedures Hospitalists Procedures: 14767 Advncd Care Plan 30 Min 02/04/25 1604 Cosigner Signature (if applicable): CC: Dr. Estrella Hanna MD; Dr. Florin Bailey DO~ Signed [place] [address]-14-2025 Consult note Author Deondre Leavitt [facility] Note Date/Time February 04, 2025 1:2 6pm [facility] Medical Records Department [address] [place] [address] Consultation - Cardiology 02/04/25 1311 MR#: [id number] Acct: [id number] Name: MILY LONG Rep #:[id number] : 1960 64 From: Deondre Leavitt MD PCP: Dr. Florin Bailey, Status:ADM IN Location: [place] [address]- 1 Assessment & Plan Assessment/Plan (1) Non-ST elevation LA (NSTEMI): PLAN: Patient presented with chest discomfort [...] tract infection) Atherosclerosis of coronary artery of [place] heart without angina pectoris Myocardial infarct Home [...] 41% Risk Charges/Coding Visit Charges Inpatient E&M: 16204 Init Hosp L3 Objective Data Vital Signs: [...] 77.1 H, Lymph % (Auto) 15.1 L, [place] % (Auto) 4.9, Eos % (Auto) 1.5, [...] 77.1 H, Lymph % (Auto) 15.1 L, [place] % (Auto) 4.9, Eos % (Auto) 1.5, [...] the thoracic spine is seen. Reading Location: [id number] 02/04/25 132 <Electronically signed by Deondre Leavitt MD> Cosigner Signature (if applicable): CC: Dr. Florin Bailey, DO~ Signed [facility] Work Phone: [phone]) 702-210304-14-2025 Discharge summary Author Orlando Abdi [facility] Note Date/Time February 04, 2025 1:0 4pm [facility] Medical Records Department [address] [place] [address] Emergency Department Summary 02/04/25 MR#: [id number] Acct: [id number] Name: MILY LONG Rep #:[id number] : [...] radiation to the jaw, neck, back, arms. [facility] Medical History UTI (urinary tract infection) Atherosclerosis of coronary artery of [place] heart without angina pectoris Myocardial infarct Home [...] coffee this morning, she isgoing to the [facility] at some point today per cardiology, and [...] 77.1 H Lymph % (Auto) 15.1 L [place] % (Auto) 4.9 Eos % (Auto) 1.5 [...] the thoracic spine is seen. Reading Location: [facility] Rhythm Strip Rhythm Strip: Sinus Rhythm [...] Management Discussion w/another healthcare provider: Hospitalist and Poultry Field Service Technician (cardiologydr. leavitt) Discharge Plan Triage Chief Complaint: Chest Pain ED Provider: Orlando Abdi Dx/Rx/DC Orders Clinical Impression: Non-ST elevation LA (NSTEMI) Prescriptions: No Action lisinopril 2.5 mg [...] DO [Primary Care Provider] - Print Language: American Disposition Disposition: Acute Care Hospital [facility] What to do if you have Problems For any increased pain, shortness of breath, bleeding, nausea or vomiting, chestpain, or any unexpected problems, contact your Primary Care Provider. Call Doctors [facility] ([phone]) or report to the closest Emergency Room. Call 911 if necessary. 02/04/25 1304 <Electronically signed by Orlando Abdi MD> Cosigner Signature (if applicable): CC: Dr. Florin Bailey, DO ~ Signed [facility] Work Phone: 1(156) 333-135404-14-2025 Evaluation note* Diagnosis Onset Date Resolution Status [...] Hematuria acute February 04 1:00pm Non-ST elevation LA (NSTEMI) acute February 04, 2025 1:00pm History of coronary artery stent placement February 04, 2025 chronic February 04 1:00pm Hyperlipidemia chronic January 1:00pm [facility] Work Phone: 1([phone]) 133-490704-14-2025 Consult note [facility] Medical Records Department [address] [place] [address] Consultation - Cardiology 02/04/25 1311 MR#: [id number] Acct: [id number] Name: ETHANMILYSHIRLENE ADAMS Rep #:[id number] : 1960 64 From: Deondre Leavitt MD PCP: Dr. Florin Bailey, DO Status:ADM IN Location: [place] [id number]- 1 Assessment & Plan Assessment/Plan (1) Non-ST elevation LA (NSTEMI): PLAN: Patient presented with chest discomfort [...] tract infection) Atherosclerosis of coronary artery of [place] heart without angina pectoris Myocardial infarct Home [...] 41% Risk Charges/Coding Visit Charges Inpatient E&M: 47410 Init Hosp L3 Objective Data Vital Signs: [...] 77.1 H, Lymph % (Auto) 15.1 L, [place] % (Auto) 4.9, Eos % (Auto) 1.5, [...] 77.1 H, Lymph % (Auto) 15.1 L, [place] % (Auto) 4.9, Eos % (Auto) 1.5, [...] the thoracic spine is seen. Reading Location: [facility] 02/04/25 1326 Cosigner Signature (if applicable): CC: Dr. Florin Bailey DO~ Signed [facility]04-14-2025 Discharge summary [facility] Medical Records Department [address] [place] [address] Emergency Department Summary 02/04/25 MR#: [id number] Acct: [id number] Name: MILY LONG Rep #:[id number] : [...] radiation to the jaw, neck, back, arms. [facility] Medical History UTI (urinary tract infection) Atherosclerosis of coronary artery of [place] heart without angina pectoris Myocardial infarct Home [...] coffee this morning, she isgoing to the [facility] at some point todayper cardiology, and I [...] 77.1 H Lymph % (Auto) 15.1 L [place] % (Auto) 4.9 Eos % (Auto) 1.5 [...] the thoracic spine is seen. Reading Location: [facility] Rhythm Strip Rhythm Strip: Sinus Rhythm [...] Management Discussion w/another healthcare provider: Hospitalist and Poultry Field Service Technician (cardiologydr. leavitt) Discharge Plan Triage Chief Complaint: Chest Pain ED Provider: Orlanod Abdi Dx/Rx/DC Orders Clinical Impression: Non-ST elevation LA (NSTEMI) Prescriptions: No Action lisinopril 2.5 mg [...] DO [Primary Care Provider] - Print Language: American Disposition Disposition: Acute Care Hospital [facility] What to do if you have Problems For any increased pain, shortness of breath, bleeding, nausea or vomiting, chestpain, or any unexpected problems, contact your Primary Care Provider. Call [facility] ([phone]) or report tothe closest Emergency Room. Call 911 if necessary. 02/04/25 1304 Cosigner Signature (if applicable): CC: Dr. Florin Bailey DO ~ Signed [facility]04-14-2025 Radiology Diagnostic study note [facility] Imaging Services [address] [place], [place] [address] Chest 1 View (Portable) MR#: [id number] Acct: [id number] Name: MILY LONG Rep #: [id number] : 1960 F 64 From: Lewis Mcgraw DO PCP: Dr. Florin Bailey DO Status: REG ER Study:Chest 1 View (Portable) Date of Exam: 02/04/25 Exam# [id number] Ordering Dr: Maryellen Abdi MD PROCEDURE: CHEST [...] the thoracic spine is seen. Reading Location: [id number] CC: Dr. Orlando Abdi MD; Dr. Florin Bailey DO ~ Store Merchandiser: Signed [facility]04-04-2025 Radiology Diagnostic study note [facility] Imaging Services [address] [place] [address] Abd/Pelvis W/WO Contrast MR#: [id number] Acct: [id number] Name: MILY LONG Rep #: [id number] : 1960 F 64 From: Oseas Rodríguez MD PCP: Dr. Florin Bailey, Status: REG CLI Study:CT Abd/Pelvis W/WO Contrast Date of Exa m: 01/24/25 Exam# [id number] Ordering Dr: Roxanne Olivas MD PROCEDURE: CT [...] No acute abnormality is seen. Reading Location: [facility] CC: Dr. Roxanne Olivas MD; Dr. Florin Bailey, DO ~ Store Merchandiser: Signed [facility]03-12-2025 Evaluation note* Diagnosis Onset Date Resolution Status [...] 1:00pm Hyperlipidemia inactive January 1:00pm Non-ST elevation LA (NSTEMI) inactiv e February 04, 2025 1:00pm Murmur acute February 07 11:23am Palpitations acute February 07, 2025 11:23am Tobacco abuse chronic February 07, 2025 11:23am Fatigue inactive February 07 11:23am Hematuria inactive February 07 11:23am History of coronary artery stent placement February 04, 2025 inactive February 07 11:23am Hyperlipidemia inactive January 11:23am Acute GI bleeding acute January 232024 2:05pm [facility] Work Phone: 1(941) 136-127003-12-2025 Evaluation note* Diagnosis Onset Date Resolution Status [...] 1:00pm Hyperlipidemia inactive January 1:00pm Non-ST elevation LA (NSTEMI) inactiv e February 04, 2025 1:00pm [...] 7:33am Weakness acute March 03, 2025 7:33am [facility] Work Phone: 1(263) 807-948303-12-2025 Evaluation note* Diagnosis Onset Date Resolution Status [...] 1:00pm Hyperlipidemia inactive January 1:00pm Non-ST elevation LA (NSTEMI) inactiv e February 04, 2025 1:00pm [...] 7:13am Acute GI bleeding resolved February 7:13am [facility] Work Phone: 1(286) 947-965703-12-2025 Evaluation note* Diagnosis Onset Date Resolution Status [...] 1:00pm Hyperlipidemia inactive January 1:00pm Non-ST elevation LA (NSTEMI) inactiv e February 04, 2025 1:00pm [...] 7:13am Anemia inactive March 03, 2025 7:13am [facility] [employer] [facility] Work Phone: 1(300) 149-374503-12-2025 Evaluation note* Diagnosis Onset Date Resolution Status [...] 1:00pm Hyperlipidemia inactive January 1:00pm Non-ST elevation LA (NSTEMI) inactiv e February 04, 2025 1:00pm [...] 7:13am Weakness resolved March 03, 2025 7:13am [facility] Work Phone: 1(508) 877-198703-12-2025 Evaluation note* Diagnosis Onset Date Resolution Status [...] 1:00pm Hyperlipidemia inactive January 1:00pm Non-ST elevation LA (NSTEMI) inactiv e February 04, 2025 1:00pm [...] 7:13am Anemia acute March 20, 2025 2:22pm [facility] Work Phone: 1(917) 715-595903-12-2025 Evaluation note* Diagnosis Onset Date Resolution Status [...] 1:00pm Hyperlipidemia inactive January 1:00pm Non-ST elevation LA (NSTEMI) inactiv e February 04, 2025 1:00pm [...] 05 11:21am Atherosclerosis of coronary artery of nansemond indian tribe heart without angina pectoris acute March 11:21am Bilateral lower extremity edema acute April 05, 2025 11:21am Cardiac murmur acute April 05, 2025 11:21am [facility] Work Phone: 1(798) 978-479303-12-2025 Evaluation note* Diagnosis Onset Date Resolution Status [...] 1:00pm Hyperlipidemia inactive January 1:00pm Non-ST elevation LA (NSTEMI) inactiv e February 04, 2025 1:00pm [...] 05 11:21am Atherosclerosis of coronary artery of nansem[place] indian tribe heart without angina pectoris acute March 11:21am Bilateral lower extremity edema acute April 05, 2025 11:21am Cardiac murmur acute April 05, 2025 11:21am Anemia acute April 23, 2025 11:20am [facility] Work Phone: 1(168) 223-912503-05-2025 Note. MICRO - Microbiology PROCEDURE: Urine Culture [...] Locations *1: This test was performed at: [address], [facility] , [facility]02-20-2025 Note* Exam Date Time Procedure Performing Provider Status 12/13/24 9:33 AM XR Esophogram w/Barium Tablet DEONDRE BLACK MD; Auth (Verified) [id number] ORIGINAL EXAMINATION: SINGLE CONTRAST ESOPHAGRAM 12/13/2024 HISTORY: [...] By: Deondre Black MD Electronically signed By Doendre Black MD Dictated Date: 12/13/2024 11:57:07 AM Prelim Date: 12/13/2024 12:00:00 PM Sign Date: 12/13/2024 12:00:00 PM Ordering Provider: TOM WILLIS [facility]02-14-2025 Note. MICRO - Microbiology PROCEDURE: Urine [...] Locations *1: This test was performed at: [facility], [address] [place] [address], [address]- , [facility]01-12-2025 Note. MICRO - Microbiology PROCEDURE: Urine Culture [*1] SOURCE: Urine, Clean Catch BODY SITE: COLLECTED DATE/TIME: 11/03/2024 10:54 EST RECEIVED DATE/TIME: 11/03/2024 17:01 EST START DATE/TIME: 11/03/2024 17:01 EST FREE TEXT SOURCE: FINAL REPORTS Final Report [] Verified Date/Time/Personnel: 11/04/2024 14:01 EST 10,000 - 50,000 cfu/ml Mixed growth consistent with normal urogenital chilo. Performing Locations *1: This test was performed at: [facility], [address] [place] [address], [address] , [facility]01-03-2025 Evaluation note* Diagnosis Onset Date Resolution [...] 1:00pm Hyperlipidemia inactive January 1:00pm Non-ST elevation LA (NSTEMI) inactiv e February 04, 2025 1:00pm Murmur acute February 07 11:23am Palpitations acute February 07, 2025 11:23am Tobacco abuse chronic February 07, 2025 11:23am Fatigue inactive February 07 11:23am Hematuria inactive February 07 11:23am History of coronary artery stent placement February 04, 2025 inactive February 07 11:23am Hyperlipidemia inactive January 11:23am [facility] Work Phone: 1(347) 497-666012-19-2024 [facility]12-17-2024 Evaluation note* Diagnosis Onset Date Resolution Status [...] pack years acute January 02, 2025 8:38am [facility] Work Phone: 1([phone]) 766-334612-17-2024 Evaluation note* Diagnosis Onset Date Resolution Status [...] Tobacco abuse chronic January 23, 2025 8:52am [facility] Work Phone: 1([phone]) 374-188112-17-2024 Evaluation note* Diagnosis Onset Date Resolution Status [...] Hematuria acute February 04 1:00pm Non-ST elevation LA (NSTEMI) acute February 04, 2025 1:00pm History of coronary artery stent placement October 09, 2024 chronic February 04, 2025 1:00pm Hyperlipidemia chronic January 1:00pm [facility] Work Phone: 1([phone]) 943-995209-14-2021 Note. MICRO - Microbiology PROCEDURE: Urine Culture [...] Locations *1: This test was performed at: [facility], [address] [place] [address], [address]- , [facility] ([place])Comment on above:Performed By: #### CUR #### [address] [id number] Evaluation + Plan note Future Scheduled Tests Laboratory* Urine Culture 07/04/21 Radiology* US Abdomen Complete 12/04/21 [facility] Consult note Author Deondre Leavitt [facility] Note Date/Time February 04, 2025 1:2 6pm [facility] Medical Records Department [address] [place] [address] Consultation - Cardiology 02/04/25 1311 MR#: [id number] Acct: [id number] Name: MILY LONG Rep #:[id number] : 1960 64 From: Deondre Leavitt MD PCP: Dr. Florin Bailey, DO Status:ADM IN Location: [address] 1 Assessment & Plan Assessment/Plan (1) Non-ST elevation LA (NSTEMI): PLAN: Patient presented with chest discomfort [...] tract infection) Atherosclerosis of coronary artery of nansemond indian tribe heart without angina pectoris Myocardial infarct Home [...] 41% Risk Charges/Coding Visit Charges Inpatient E&M: 94405 Init Hosp L3 Objective Data Vital Signs: [...] 77.1 H, Lymph % (Auto) 15.1 L, [place] % (Auto) 4.9, Eos % (Auto) 1.5, [...] 77.1 H, Lymph % (Auto) 15.1 L, [place] % (Auto) 4.9, Eos % (Auto) 1.5, [...] the thoracic spine is seen. Reading Location: [id number] 02/04/25 1326 <Electronically signed by Deondre Leavitt MD> Cosigner Signature (if applicable): CC: Dr. Florin Bailey, DO~ Signed [facility] Work Phone: Consult note Author Ivan Friend [facility] Note Date/Time March 04, 2025 5:02p m [facility] Medical Records Department [address] [place] [address] Consultation - GI 03/04/25 1644 MR#: [id number] Acct: [id number] Name: MILY LONG Rep #:[id number] : 1960 64 From: Ivan Friend DO PCP: Dr. Florin Bailey, DO Status:ADM IN Location: [place] [address] HPI Consult Data Date of Consult: 03/04/25 HPI Narrative Reason for Consultation: Anemia HPI Narrative: MILY LONG, is a 64-year-old female with history of recent GI bleeding as well as STEMI (now on Brilinta and aspirin) presenting with palpitations and generalized malaise as well as shortness of breath. She was originally evaluated at [facility] in September [address] elevated myocardial [...] (continuous positive airway pressure) dependence Non-ST elevation LA (NSTEMI) Hematuria UTI (urinary tract infection) Hyperlipidemia Atherosclerosis of coronary artery of nansem[place] indian tribe heart without angina pectoris Myocardial infarct Home Medications ?Medication ?Instructions ?Recorded ?Last Taken ?Type aspirin 81 mg tablet,delayed 81 mg PO DAILY@0800 [facility] 10/11/24 02/18/25 Rx release 90 days [...] vitamin 02/06/25 02/05/25 History mg tablet cranberry jipq-L-mptmlfzm 2 tab PO DAILY supplement 02/05/25 History [...] 78.8 H, Lymph % (Auto) 13.0 L, [place] % (Auto) 4.7, Eos % (Auto) 2.2, [...] a macrocytic anemia. She was evaluated at [facility] in September [address] elevated myocardial [...] iron transfusion. Charges/Coding Visit Charges Inpatient E&M: 95470 Init Hosp 03/04/25 1702 <Electronically signed by Ivan Cotto DO> Cosigner Signature (if applicable): CC: Dr. Florin Bailey DO~ Signed [facility] Work Phone: Discharge summary Author Orlando Abdi [facility] Note Date/Time February 04, 2025 1:0 4pm [facility] Medical Records Department [address] [place] [address] Emergency Department Summary 02/04/25 MR#: [id number] Acct: [id number] Name: MILY LONG Rep #:[id number] : [...] radiation to the jaw, neck, back, arms. [facility] Medical History UTI (urinary tract infection) Atherosclerosis of coronary artery of nansem[place] ind[place] tribe heart without angina pectoris Myocardial infarct Home [...] coffee this morning, she isgoing to the [employer] at some point today per cardiology, and [...] 77.1 H Lymph % (Auto) 15.1 L [place] % (Auto) 4.9 Eos % (Auto) 1.5 [...] the thoracic spine is seen. Reading Location: [facility] Rhythm Strip Rhythm Strip: Sinus Rhythm [...] Management Discussion w/another healthcare provider: Hospitalist and Poultry Field Service Technician (cardiologydr. leavitt) Discharge Plan Triage Chief Complaint: Chest Pain ED Provider: Orlando Abdi Dx/Rx/DC Orders Clinical Impression: Non-ST elevation LA (NSTEMI) Prescriptions: No Action lisinopril 2.5 mg [...] DO [Primary Care Provider] - Print Language: American Disposition Disposition: Acute Care Hospital [facility] What to do if you have Problems For any increased pain, shortness of breath, bleeding, nausea or vomiting, chestpain, or any unexpected problems, contact your Primary Care Provider. Call [facility] ([phone]) or report to the closest Emergency Room. Call 911 if necessary. 02/04/25 1304 <Electronically signed by Orlando Abdi MD> Cosigner Signature (if applicable): CC: Dr. Florin Bailey, DO ~ Signed [facility] Work Phone: Discharge summary Author Orlando Abdi [facility] Note Date/Time February 28, 2025 5:18am [facility] Medical Records Department [address] [place] [address] Emergency Department Summary 02/28/25 MR#: [id number] Acct: [id number] Name: MILY LONG Rep #:[id number] : 1960 64 From: Orlando Abdi MD PCP: Dr. Florin Bailey, Status:REG ER Location: ED HPI History of Present Illness Chief Complaint: Palpitations Informant: patient and spouse/S.O. Narrative Narrative: 64-year-old female states she woke up in the middle of the night short of breathand her heart racing, both at the same time. No chest discomfort. [place] lightheaded but did not lose consciousness. She felt a little sweaty. She states it lasted 15 or 20 minutes and then gradually resolved and now she feels better except for feeling tired and weak. She had a stent placed at the end of last year and then another 1 placed a month ago. She continues to smoke. Denies any recent illness. [facility] Medical History GERD (gastroesophageal reflux disease) Smoker CPAP (continuous positive airway pressure) dependence Non-ST elevation LA (NSTEMI) Hematuria UTI (urinary tract infection) Hyperlipidemia Atherosclerosis of coronary artery of nansem[place] indian tribe heart without angina pectoris Myocardial infarct Home [...] DAILY 5 02/05/25 History mg tablet cranberry lohy-F-yschhrbz 2 tab PO DAILY supplement 02/05/25 History [...] telemetry data. Patient was talking to the senior technical business analyst telling her that she had the symptoms [...] % (Auto) 60.8 Lymph % (Auto) 28.0 [place] % (Auto) 6.2 Eos % (Auto) 3.6 [...] No evidence of acute disease. Reading Location: [facility] Rhythm Strip Rhythm Strip: Sinus Rhythm [...] Staff] - Keep Patrice appointment Print Language: American Disposition Disposition: Home, Self Care What to do if you have Problems For any increased pain, shortness of breath, bleeding, nausea or vomiting, chestpain, or any unexpected problems, contact your Primary Care Provider. Call [facility] ([phone]) or report to the closest Emergency Room. Call 911 if necessary. 02/28/25517 <Electronically signed by Orlando Abdi MD> Cosigner Signature (if applicable): CC: Dr. Florin Bailey, ~ Signed [facility] Work Phone: Discharge summary Author Swati [facility] Note Date/Time March 03, 2025 7:23a m [facility] Medical Records Department [address] [place] [address] Emergency Department Summary 03/03/25 MR#: [id number] Acct: [id number] Name: MILY LONG Rep #:[id number] : [...] down to 7.8. Did receive iron transfusion. [facility] Medical History GERD (gastroesophageal reflux disease) Smoker CPAP (continuous positive airway pressure) dependence Non-ST elevation LA (NSTEMI) Hematuria UTI (urinary tract infection) Hyperlipidemia Atherosclerosis of coronary artery of nansem[place] indian tribe heart without angina pectoris Myocardial infarct Home Medications ?Medication ?Instructions ?Recorded ?Last Taken ?Type aspirin 81 mg tablet,delayed 81 mg PO DAILY@0800 [facility] 10/11/24 02/18/25 Rx release 90 days #90 [...] DAILY 5 02/05/25 History mg tablet cranberry varl-O-cnwiyuwx 2 tab PO DAILY supplement 02/05/25 History [...] % (Auto) 69.3 Lymph % (Auto) 22.1 [place] % (Auto) 5.1 Eos % (Auto) 2.5 [...] (Auto) Neut % (Auto) Lymph % (Auto) [place] % (Auto) Eos % (Auto) Baso % [...] ABO/Rh A1 Subgroup A1 Antigen Typing Rho(D) [employer] Interpret Antibody Screen Crossmatch 03/03/25 03/03/25 03/03/25 02:35 02:35 02:35 WBC RBC Hgb Hct MCV MCH MCHC RDW Std Deviation RDW Coeff of Gerber Plt Count MPV Immature Gran % (Auto) Neut % (Auto) Lymph % (Auto) [place] % (Auto) Eos % (Auto) Baso % [...] (Auto) Neut % (Auto) Lymph % (Auto) [place] % (Auto) Eos % (Auto) Baso % [...] (Auto) Neut % (Auto) Lymph % (Auto) [place] % (Auto) Eos % (Auto) Baso % [...] evidence of an acute abnormality. Reading Location: [place] [address] Rhythm Strip Rhythm Strip: Sinus Rhythm Rate: [...] bleed, ZAMORANO (dyspnea on exertion) Disposition Disposition: [facility] What to do if you have Problems For any increased pain, shortness of breath, bleeding, nausea or vomiting, chestpain, or any unexpected problems, contact your Primary Care Provider. Call [facility] ([phone]) or report to the closest Emergency Room. Call 911 if necessary. 03/03/25722 <Electronically signed by Swati Huff DO> Cosigner Signature (if applicable): CC: Dr. Florin Bailey DO ~ Signed [facility] Work Phone: Evaluation + Plan note Future Appointments Appointment Date:11/21/2024 09:45:00 AM Scheduled Provider:FLORIN BAILEY DO Location:[facility] Appointment Type:[facility] Evaluation + Plan note Future Appointments Appointment Date:01/21/2025 11:15:00 AM Scheduled Provider:FLORIN BAILEY DO Location:[facility] Appointment Type:[facility] Future Scheduled Tests Laboratory* Lipoprotein (a) 11/21/24 [...] Skeleton Adult (21 yrs or older) 11/21/24 [facility] Evaluation + Plan note Future Appointments Appointment Date:01/21/2025 11:15:00 AM Scheduled Provider:FLORIN BAILEY DO Location:[facility] Appointment Type:PC OV Future Scheduled Tests Laboratory* [...] older) 11/21/24 * XR Esophogram W/Air 12/11/24 [facility] Evaluation + Plan note Future Appointments Appointment Date:07/17/2025 09:00:00 AM Scheduled Provider:FLORIN BAILEY DO Location:[facility] Appointment Type:PC OV Future Scheduled Tests Radiology* CT Low Dose Lung Cancer Screening (LDCT) 11/21/24 * MA Mammo Screening Bilateral w/ Dick 11/21/24 * BD Bone Density DEXA Axial Skeleton Adult (21 yrs or older) 11/21/24 * XR Esophogram W/Air 12/11/24 [facility] Evaluation + Plan note Future Appointments Appointment Date:07/17/2025 09:00:00 AM Scheduled Provider:FLORIN BAILEY DO Location:[facility] Appointment Type:PC OV Future Scheduled Tests Laboratory* Hemoglobin 02/15/25 * Stool for Occult Blood (Lab) 02/14/25 Radiology* CT Low Dose Lung Cancer Screening (LDCT) 11/21/24 * MA Mammo Screening Bilateral w/ Dick 11/21/24 * BD Bone Density DEXA Axial Skeleton Adult (21 yrs or older) 11/21/24 * XR Esophogram W/Air 12/11/24 [facility] Evaluation + Plan note Future Appointments Appointment Date:02/15/2025 02:30:00 PM Scheduled Provider:MARQUITA DOUGLAS Location:[facility] Appointment Type:PC OV Appointment Date:07/17/2025 09:00:00 AM Scheduled Provider:FLORIN BAILEY DO Location:[facility] Appointment Type:PC OV Future Scheduled Tests Laboratory* Basic Metabolic Panel 01/22/25 * Basic Metabolic Panel 01/21/25 * Stool for Occult Blood (Lab) 02/14/25 Radiology* CT Low Dose Lung Cancer Screening (LDCT) 11/21/24 * MA Mammo Screening Bilateral w/ Dick 11/21/24 * BD Bone Density DEXA Axial Skeleton Adult (21 yrs or older) 11/21/24 * XR Esophogram W/Air 12/11/24 [facility] Evaluation + Plan note Future Appointments Appointment Date:02/27/2025 01:00:00 PM Scheduled Provider:FLORIN BAILEY DO Location:[facility] Appointment Type:PC OV TCM 30 Appointment Date:07/17/2025 09:00:00 AM Scheduled Provider:FLORIN BAILEY DO Location:[facility] Appointment Type: OV Future Scheduled Tests Radiology* CT Low Dose Lung Cancer Screening (LDCT) 11/21/24 * MA Mammo Screening Bilateral w/ Dick 11/21/24 * BD Bone Density DEXA Axial Skeleton Adult (21 yrs or older) 11/21/24 * XR Esophogram W/Air 12/11/24 [facility] Evaluation + Plan note Future Appointments Appointment Date:03/08/2025 04:00:00 PM Scheduled Provider:FLORIN BAILEY DO Location:[facility] Appointment Type:PC OV [facility] 30 Appointment Date:07/17/2025 09:00:00 AM Scheduled Provider:FLORIN BAILEY DO Location:[facility] Appointment Type:PC OV Future Scheduled Tests Radiology* CT Low Dose Lung Cancer Screening (LDCT) 11/21/24 * MA Mammo Screening Bilateral w/ Dick 11/21/24 * BD Bone Density DEXA Axial Skeleton Adult (21 yrs or older) 11/21/24 * XR Esophogram W/Air 12/11/24 [facility] Evaluation + Plan note Future Appointments Appointment Date:04/01/2025 01:00:00 PM Scheduled Provider:FLORIN BAILEY DO Location:[facility] Appointment Type:PC OV [facility] 30 Appointment Date:07/17/2025 09:00:00 AM Scheduled Provider:FLORIN BAILEY DO Location:[facility] Appointment Type:PC OV Future Scheduled Tests Radiology* CT Low Dose Lung Cancer Screening (LDCT) 03/08/25 * CT Low Dose Lung Cancer Screening (LDCT) 11/21/24 * MA Mammo Screening Bilateral w/ Dick 03/08/25 * MA Mammo Screening Bilateral w/ Dick 11/21/24 * BD Bone Density DEXA Axial Skeleton Adult (21 yrs or older) 11/21/24 * XR Esophogram W/Air 12/11/24 [facility] evaluation + Plan note Future Appointments Appointment Date:04/09/2025 11:30:00 AM Scheduled Provider: Location:[facility] Appointment Type:MA Mammogram Screening Bilateral w/ Dick Appointment Date:05/07/2025 02:00:00 PM Scheduled Provider:FLORIN BAILEY DO Location:[facility] Appointment Type:PC OV Appointment Date:07/17/2025 09:00:00 AM Scheduled Provider:FLORIN BAILEY DO Location:[facility] Appointment Type:PC Wellness Medicare Future Scheduled [...] older) 11/21/24 * XR Esophogram W/Air 12/11/24 [facility] Evaluation + Plan note Future Appointments Appointment Date:05/07/2025 02:00:00 PM Scheduled Provider:FLORIN BAILEY DO Location:[facility] Appointment Type: OV Appointment Date:07/17/2025 09:00:00 AM Scheduled Provider:FLORIN BAILEY DO Location:[facility] Appointment Type:PC Wellness Medicare Future Scheduled [...] older) 11/21/24 * XR Esophogram W/Air 12/11/24 [facility] [address].comaluation + Plan note Future Appointments Appointment Date:05/07/2025 02:00:00 PM Scheduled Provider:FLORIN BAILEY DO Location:[facility] Appointment Type: OV Appointment Date:07/17/2025 09:00:00 AM Scheduled Provider:FLORIN BAILEY DO Location:[facility] Appointment Type:PC Wellness Medicare Future Scheduled Tests Laboratory* Hemoglobin/Hematocrit - Panel 05/06/25 Radiology* CT Low Dose Lung Cancer Screening (LDCT) 03/08/25 * CT Low Dose Lung Cancer Screening (LDCT) 11/21/24 * MA Mammo Screening Bilateral w/ Dick 11/21/24 * BD Bone Density DEXA Axial Skeleton Adult (21 yrs or older) 11/21/24 * XR Esophogram W/Air 12/11/24 [facility] Evaluation note* Diagnosis SOB (shortness of breath)- Primary Shortness of breath Shortness of breath Melena Blood in stool Small intestinal hemorrhage not requiring more than four units of blood in 24 hours, admission to ICU, or surgery Coronary artery disease involving [place]sem[place] tribe coronary artery, unspecified whether angina present, unspecified whether nansemond indian tribe or transplanted heart Shortness of breath GI bleed Unspecified, hemorrhage of gastrointestinal tract documented in this encounter [facility] Work Phone: History and physical note Author Clyde Long [facility] Note Date/Time March 03, 2025 7:49a m [facility] Medical Records Department [address] [place] [address] H&P Exam - Hospitalist 03/03/25 0738 MR#: [id number] Acct: [id number] Name: MILY LONG Rep #:[id number] : 1960 64 From: Clyde Long DO PCP: Dr. Florin Bailey DO Status:ADM SABINO Location: [place] [address] HPI - General General Date of Admission: [...] (continuous positive airway pressure) dependence Non-ST elevation LA (NSTEMI) Hematuria UTI (urinary tract infection) Hyperlipidemia Atherosclerosis of coronary artery of nansem[place] indian tribe heart without angina pectoris Myocardial infarct Home [...] DAILY 5 02/05/25 History mg tablet cranberry ajwl-B-jogsbrab 2 tab PO DAILY supplement 02/05/25 History [...] % (Auto) 69.3, Lymph % (Auto) 22.1, [place] % (Auto) 5.1, Eos % (Auto) 2.5, [...] evidence of an acute abnormality. Reading Location: [place] [address] Assessment & Plan Assessment/Plan (1) Anemia: PLAN: [...] full code. Charges/Coding Visit Charges Inpatient E&M: 19270 Init Hosp L3 03/03/25 0749 <Electronically signed by Clyde Long DO> Cosigner Signature (if applicable): CC: Dr. Clyde Long DO; Dr. Florin Bailey DO~ Signed [facility] Work Phone: Hospital course Narrative No data available for this section [facility] Discharge instructions No data available for this section [facility] Discharge instructions Additional Instructions Please arrange early follow-up with her compress machine operator. Please follow-up with your primary care doctor as well. I wrote Zofran for your nausea. Also wrote you albuterol inhaler as the CT of your chest today shows emphysema of your lungs. Please discuss this further with your doctor.[facility] Work Phone: Hospital Discharge instructions Additional Instructions As we discussed I spoke with gastroenterology who did not feel transfer was necessary today. Your hemoglobin today was 7. You were transfused 1 unit. Please call the gastroenterology office that you were referred to tomorrow morning. Informed them of your recent ED visit tonight and that we spoke with the it systems administrator who is on-call who stated that you can be seen this week. I have printed off a copy of your most recent studies which should help them in developing a plan of care. As always you are welcome to return to the emergency here for repeat examination if need be.[facility] Work Phone: Progress note No data available for this section [facility] Summary Purpose Family History No Family History Records Found Relationship Condition Age at Onset Recorded Date/T feliz father Coronary artery disease Unknown Cerebrovascular accident (CVA) Unknown Myocardial infarction Unknown mother Malignant neoplasm Unknown Advance Directives No Advanced Directives Records Found Advance Directive Response Recorded Date/ Time Living Will No October 09 4:17pm Do you have a Healthcare Power of Sqe? No October 09, 2024 4:17pm Living Will No December 11 11:26am Do you have a Healthcare Power of Sqe? No December 11, 2024 11:26am Advance Directives on File No Em 2024 9:08am Living Will No October 31 9:08am Do you have a Healthcare Power of Sqe? No October 31, 2024 9:08am Advance Directive Response Recorded Date/ Time Living Will No October 09 4:17pm Do you have a Healthcare Power of Sqe? No October 09, 2024 4:17pm Living Will No December 11 025 11:26am Do you have a Healthcare Power of Sqe? No December 11, 2024 11:26am Living Will No February 04, 2025 11:37am Do you have a Healthcare Power of Sqe? No February 04, 2025 11:37am Advance Directives on File No Em ry 2024 9:08am Living Will No October 31 9:08am Do you have a Healthcare Power of Sqe? No October 31, 2024 9:08am Advance Directive Response Recorded Date/ Time Living Will No October 09, 4:17pm Do you have a Healthcare Power of Sqe? No October 09, 2024 4:17pm Living Will No December 11 11:26am Do you have a Healthcare Power of Sqe? No December 11, 2024 11:26am Living Will No February 04, 2025 3:31pm Do you have a Healthcare Power of Sqe? No February 04, 2025 3:31pm Advance Directives on File No Em quiroz 2024 9:08am Living Will No October 31 9:08am Do you have a Healthcare Power of Sqe? No October 31, 2024 9:08am Advance Directive Response Recorded Date/ Time Living Will No October 09, 024 4:17pm Do you have a Healthcare Power of Sqe? No October 09, 2024 4:17pm Living Will No December 11 11:26am Do you have a Healthcare Power of Sqe? No December 11, 2024 11:26am Living Will No February 04, 2025 3:31pm Do you have a Healthcare Power of Sqe? No February 04, 2025 3:31pm Living Will No February 06, 2025 9:18am Do you have a Healthcare Power of Sqe? No February 06, 2025 9:18am Advance Directives on File No Em quiroz 2024 9:08am Living Will No October 31 9:08am Do you have a Healthcare Power of Sqe? No October 31, 2024 9:08am Advance Directive Response Recorded Date/ Time Living Will No December 11 11:26am Do you have a Healthcare Power of Sqe? No December 11, 2024 11:26am Living Will No February 04, 2025 3:31pm Do you have a Healthcare Power of Sqe? No February 04, 2025 3:31pm Living Will No February 06, 2025 9:18am Do you have a Healthcare Power of Sqe? No February 06, 2025 9:18am Advance Directives on File No Octsandy 2024 9:08am Living Will No October 31 9:08am Do you have a Healthcare Power of Sqe? No October 31, 2024 9:08am Advance Directives on File No February 12, 2025 10:06am Living Will No February 12, 2025 10:06am Do you have a Healthcare Power of Sqe? No February 12, 2025 10:06am Advance Directive Response Recorded Date/ Time Living Will No December 11 11:26am Do you have a Healthcare Power of Sqe? No December 11, 2024 11:26am Living Will No February 04, 2025 3:31pm Do you have a Healthcare Power of Sqe? No February 04, 2025 3:31pm Living Will No February 06, 2025 9:18am Do you have a Healthcare Power of Sqe? No February 06, 2025 9:18am Do you have a Healthcare Power of Sqe? No February 18, 2025 3:53pm Advance Directives on File No 2024 9:08am Living Will No October 31 9:08am Do you have a Healthcare Power of Sqe? No October 31, 2024 9:08am Advance Directives on File No February 12, 2025 10:06am Living Will No February 12, 2025 10:06am Do you have a Healthcare Power of Sqe? No February 12, 2025 10:06am Do you have a Healthcare Power of Sqe? No February 28, 2025 2:08am Advance Directive Response Recorded Date/ Time Living Will No December 11 11:26am Do you have a Healthcare Power of Sqe? No December 11, 2024 11:26am Living Will No February 04, 2025 3:31pm Do you have a Healthcare Power of Sqe? No February 04, 2025 3:31pm Living Will No February 06, 2025 9:18am Do you have a Healthcare Power of Sqe? No February 06, 2025 9:18am Do you have a Healthcare Power of Sqe? No February 18, 2025 3:53pm Do you have a Healthcare Power of Sqe? No March 03, 2025 2:49am Advance Directives on File No February 12, 2025 10:06am Living Will No February 12, 2025 10:06am Do you have a Healthcare Power of Sqe? No February 12, 2025 10:06am Do you have a Healthcare Power of Sqe? No February 28, 2025 2:08am Advance Directive Response Recorded Date/ Time Living Will No December 11 11:26am Do you have a Healthcare Power of Sqe? No December 11, 2024 11:26am Living Will No February 04, 2025 3:31pm Do you have a Healthcare Power of Sqe? No February 04, 2025 3:31pm Living Will No February 06, 2025 9:18am Do you have a Healthcare Power of Sqe? No February 06, 2025 9:18am Do you have a Healthcare Power of Sqe? No February 18, 2025 3:53pm Do you have a Healthcare Power of Sqe? No March 03, 2025 8:25am Advance Directives on File No February 12, 2025 10:06am Living Will No February 12, 2025 10:06am Do you have a Healthcare Power of Sqe? No February 12, 2025 10:06am Do you have a Healthcare Power of Sqe? No February 28, 2025 2:08am Advance Directive Response Recorded Date/ Time Living Will No December 11 11:26am Do you have a Healthcare Power of Sqe? No December 11, 2024 11:26am Living Will No February 04, 2025 3:31pm Do you have a Healthcare Power of Sqe? No February 04, 2025 3:31pm Living Will No February 06, 2025 9:18am Do you have a Healthcare Power of Sqe? No February 06, 2025 9:18am Do you have a Healthcare Power of Sqe? No February 18, 2025 3:53pm Do you have a Healthcare Power of Sqe? No March 03, 2025 8:25am Do you have a Healthcare Power of Sqe? No March 18, 2025 5:03am Advance Directives on File No February 12, 2025 10:06am Living Will No February 12, 2025 10:06am Do you have a Healthcare Power of Sqe? No February 12, 2025 10:06am Do you have a Healthcare Power of Sqe? No February 28, 2025 2:08am Date Activated Date Inactivated Comments 03/21/2025 10:41 PM Question Answer Comments Plan of Care: Code Status Discussion Completed Decision Maker: Patient Advance Directive Response Recorded Date/ Time Living Will No February 04, 2025 3:31pm Do you have a Healthcare Power of Sqe? No February 04, 2025 3:31pm Living Will No February 06, 2025 9:18am Do you have a Healthcare Power of Sqe? No February 06, 2025 9:18am Do you have a Healthcare Power of Sqe? No February 18, 2025 3:53pm Do you have a Healthcare Power of Sqe? No March 03, 2025 8:25am Do you have a Healthcare Power of Sqe? No March 18, 2025 5:03am Advance Directives on File No February 12, 2025 10:06am Living Will No February 12, 2025 10:06am Do you have a Healthcare Power of Sqe? No February 12, 2025 10:06am Do you have a Healthcare Power of Sqe? No February 28, 2025 2:08am Chief Complaint and Reason for Visit Chief Complaint Admit Date ACUTE ST ELEVATION October 09, 2024 4:14pm ACUTE ST ELEVATION October 09, 2024 4:35pm ACUTE ST ELEVATION October 10, 2024 11:43am ACUTE ST ELEVATION October 11, 2024 8:20am ACUTE ST ELEVATION October 11, 2024 9:28am S/P [facility] 10/11October 26, 2024 3: 15pm PCI [...] ST ELEVATION October 11, 2024 9:28am S/P [facility] 10/11October 26, 2024 3: 15pm PCI [...] February 04, 2025 1:0 0pm Non-ST elevation LA (NSTEMI) February 04, 2025 1:00pm History of [...] 12: 29pm Chief Complaint Admit Date S/P [facility] 10/11October 26, 2024 3: 15pm PCI [...] February 04, 2025 1:0 0pm Non-ST elevation LA (NSTEMI) February 04, 2025 1:00pm Murmur February [...] February 04, 2025 1:0 0pm Non-ST elevation LA (NSTEMI) February 04, 2025 1:00pm Murmur February [...] February 04, 2025 1:0 0pm Non-ST elevation LA (NSTEMI) February 04, 2025 1:00pm Murmur February [...] February 04, 2025 1:0 0pm Non-ST elevation LA (NSTEMI) February 04, 2025 1:00pm Murmur February [...] February 04, 2025 1:0 0pm Non-ST elevation LA (NSTEMI) February 04, 2025 1:00pm Murmur February [...] February 04, 2025 1:0 0pm Non-ST elevation LA (NSTEMI) February 04, 2025 1:00pm Murmur February [...] February 04, 2025 1:0 0pm Non-ST elevation LA (NSTEMI) February 04, 2025 1:00pm Murmur February [...] February 04, 2025 1:0 0pm Non-ST elevation LA (NSTEMI) February 04, 2025 1:00pm Murmur February [...] 11:2 1am Atherosclerosis of coronary artery of [place] heart without angina pectoris April 05, 2025 [...] February 04, 2025 1:0 0pm Non-ST elevation LA (NSTEMI) February 04, 2025 1:00pm Murmur February [...] 11:2 1am Atherosclerosis of coronary artery of [place] heart without angina pectoris April 05, 2025 11:21am Bilateral lower extremity edema March 11:21am Cardiac murmur April 05, 2025 11:2 1am Anemia April 23, 2025 11:20 am Additional Source Comments INFORMATION SOURCE (unrecogn ized section and content) DATE CREATED AUTHOR 12/26/2021 [facility] ([place]) DATE CREATED AUTHOR AUTHOR'S ORGANIZ ATION 03/24/2025 [facility] DATE CREATED AUTHOR AUTHOR'S ORGANIZ ATION 03/28/2025 [facility] DATE CREATED AUTHOR AUTHOR'S ORGANIZ ATION 04/17/2025 [facility] DATE CREATED AUTHOR AUTHOR'S ORGANIZ ATION 04/24/2025 [facility] Patient Care team informatio [...] 2024 End: October 26, 2024 Aung Franklin 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, 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 Attending Provider Active S tart: October 26, [...] 2024 End: November 07, 2024 Aung Franklin 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, 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 Attending Provider Active S tart: November 07, 2024 End: November 07, 2024 Aung Franklin 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, 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 Referring Provider Active S tart: November 07, [...] End: January 02, 2025 Aung Franklin NP, 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 Referring Provider Active S tart: January 02, [...] End: January 23, 2025 Aung Franklin NP, 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 Attending Provider Active S tart: January 23, [...] End: February 07, 2025 Luz Mullen NP, 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 Attending Provider Active Start: February 07, 2025 [...] Status: Active Member Role Status Dates Dr. Branden Akers MD Primary Care Provider Active Start: October 09, 2024 Dr. Piyush Sanchez MD Emergency Provider Active Sta rt: October 09, 2024 Dr. Adan Galindo MD Attending Provider Activ e Start: October 09, 2024 Dr. Adan Galindo MD Referring Provider Activ e Start: October 09, 2024 Dr. Tawanna Holder MD Admit Provider Active Star t: October 09, 2024 Dr. Tawanna Holder MD Other Provider [...] Start : February 22, 2025 Dr. Jakub Fsicher MD Admit Provider Active Start: February 22, 2025 Dr. Jakub Fsicher MD Other Provider Active Start: February 22, [...] Active Start: February 28, 2025 Luz Mullen 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, 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 Attending Provider Active Start: February 28, 2025 Luz Mullen 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, 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 Referring Provider Active Start: February 28, 2025 [...] 2025 End: February 28, 2025 Luz Mullen 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, 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 Attending Provider Active Start: February 28, 2025 End: February 28, 2025 Luz Mullen 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, 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 Referring Provider Active Start: February 28, 2025 End: February 28, 2025 Team Status: Active Member Role Status Dates Dr. Florin Bailey DO Primary Care Provider Active Start: February 28, 2025 Dr. Deondre Leavitt MD Attending Provider Active Start: February 28, 2025 Luz Mullen 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, 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 Referring Provider Active Start: February 28, 2025 [...] t: March 04, 2025 Dr. Clyde Long , DO Referring Provider Active Start: March [...] Activ e Start: March 25, 2025 Dr. Adan Galindo MD Referring Provider [...] April 05, 2025 End: April 05, 2025 Ring Sorter Relationship Specialty Start Date End Date Florin Bailey DO [address] [facility] [place] [address] PCP - General 03/19/25 Team Status: Active Member Role/Relationship Status Dates Dr. Florin Bailey DO Primary Care Provider Active Team Status: Inactive Member Role/Relationship Status Dates Dr. Florin Bailey DO Primary Care Provider Active Start: January 02, 2025 End: January 02, 2025 Nohemy Banks NP-C Attending Provider Active Start: January 02, 2025 End: January 02, 2025 Aung Franklin 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, 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 Referring Provider Active S tart: January 02, [...] 2025 End: January 23, 2025 Aung Franklin 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, 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 Attending Provider Active S tart: January 23, [...] End: February 07, 2025 Luz Mullen NP, 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 Attending Provider Active Start: February 07, 2025 [...] 2025 End: February 22, 2025 Dr. Jakub Fiscehr MD Admit Provider Active Start: February 18, [...] 2025 End: February 28, 2025 Luz Mullen 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, 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 Attending Provider Active Start: February 28, 2025 End: February 28, 2025 Luz Mullen 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, 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 Referring Provider Active Start: February 28, 2025 End: February 28, 2025 Team Status: Active Member Role/Relationship Status Dates Dr. Florin Bailey DO Primary Care Provider Active Start: February 28, 2025 Dr. Deondre Leavitt MD Attending Provider Active Start: February 28, 2025 Luz Mullen 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, 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 Referring Provider Active Start: February 28, 2025 [...] of breath) [place] [address] Department [place] [address] Phone: tel: fax: [place] [phone] [place] [address] Phone: tel: Referral ID Status Reason Start Date Expiration Date Visits Re quested Visits Authorized [id number] 1 1 Scheduled Active and Recently Administ [...] BE BASED ON THE PRIMARY CLINICAL RECORDS. [facility]. provides no warranty or guarantee of the accuracy or completeness of information in this document.
--- NOTE | 2025-04-24 07:35 | EKG12_ITS ---
Test Reason : SOB Blood Pressure : */* mmHG Vent. Rate : 85 BPM Atrial Rate : 85 BPM P-R Int : 150 ms QRS Dur : 68 ms QT Int : 360 ms P-R-T Axes : 81 61 53 degrees QTcB Int : 428 ms Sinus rhythm with occasional Premature ventricular complexes Possible Left atrial enlargement Borderline ECG Confirmed by MILEY WADSWORTH, RUTH ANN ([id number]), online editor LISETTE PINEDA ([id number]) on 04/25/2025 10:07:10 AM Referred By: Confirmed By: RUTH ANN TRENT MD
--- NOTE | 2025-04-24 07:35 | EKG12_ITS ---
Test Reason : SOB Blood Pressure : */* mmHG Vent. Rate : 85 BPM Atrial Rate : 85 BPM P-R Int : 150 ms QRS Dur : 68 ms QT Int : 360 ms P-R-T Axes : 81 61 53 degrees QTcB Int : 428 ms Sinus rhythm with occasional Premature ventricular complexes Possible Left atrial enlargement Borderline ECG Confirmed by MILEY WADSWORTH, RUTH ANN ([id number]), sound editor LISETTE PINEDA ([id number]) on 04/25/2025 10:07:10 AM Referred By: Confirmed By: RUTH ANN TRENT MD
--- NOTE | 2025-04-24 07:43 | RAD_ITS ---
PROCEDURE: CHEST PA AND LATERAL 04/24/2025 REASON FOR EXAM: DYSPNEA TECHNIQUE: CHEST PA AND LATERAL COMPARISON: AP chest of 03/03/2025. RAD/Chest PA and Lateral IMPRESSION: Chronic lung changes and hyperinflation are again noted. No focal infiltrate is seen. No pleural effusion is clearly evident. No pneumothorax is seen. The cardiomediastinal silhouette is stable, without evidence of cardiomegaly. Moderate degenerative changes of the thoracic spine are noted. No acute osseou s process is evident. Reading Location: [place] [address]
--- NOTE | 2025-04-24 07:43 | RAD_ITS ---
PROCEDURE: CHEST PA AND LATERAL 04/24/2025 REASON FOR EXAM: DYSPNEA TECHNIQUE: CHEST PA AND LATERAL COMPARISON: AP chest of 03/03/2025. RAD/Chest PA and Lateral IMPRESSION: Chronic lung changes and hyperinflation are again noted. No focal infiltrate is seen. No pleural effusion is clearly evident. No pneumothorax is seen. The cardiomediastinal silhouette is stable, without evidence of cardiomegaly. Moderate degenerative changes of the thoracic spine are noted. No acute osseou s process is evident. Reading Location: [place] [address]
[2025-04-24 08:02] LABS: Hematocrit 31.7 % (37-47); Hemoglobin 10.0 g/dL (12.0-15.0); Immature Granulocytes Count 0.040 X10^3/uL (0.0-0.0); Mean Corp Hgb Conc 31.5 g/dL (32-36); Mean Corpuscular Volume 96.6 fL (81-99); Mean Platelet Vol. 10.3 fl (6.2-12.0); NRBC Flagged by Analyzer 0 % (0-5); Platelet Count 197 K/mm3 (150-450); RBC Distribution Width CV 16.2 % (11.6-14.6); RBC Distribution Width SD 58.4 fl (35.1-43.9); Red Blood Count 3.28 M/mm3 (4.2-5.4); White Blood Count 10.8 K/mm3 (4.4-11.0)
[2025-04-24 08:26] LABS: Troponin T High Sensitivity 13 ng/L (<=14)
[2025-04-24 08:27] LABS: Anion Gap 14 (5-15); BUN 22 mg/dL (4-19); BUN/Creat Ratio 19.7 RATIO (10-20); Calcium,Total 9.1 mg/dL (7.6-11.0); Carbon Dioxide 20.3 mmol/L (21.0-32.0); Chloride 106 mmol/L (98-108); Estimated Creatinine Clearance 47.83 ml/min (50-250); Glucose 106 mg/dL (70-99); Potassium 3.7 mmol/L (3.3-5.1)
[2025-04-24 08:28] LABS: Partial Thromboplast Time 27.7 Seconds (24.1-36.2); Prothrombin Time (Protime)PT. 13.5 SECONDS (11.7-14.9)
[2025-04-24 09:53] LABS: Troponin T High Sens 2 HR 13 ng/L (<=14)
== END 2025-04-24 10:34 | disposition home or self-care (01) ==
PROVIDERS: Emergency Provider Emergency Medicine; Visit Provider Emergency Medicine
DX: R06.02 Shortness of breath (principal); D64.9 Anemia, unspecified; I25.10 Atherosclerotic heart disease of native coronary artery without angina pectoris; I25.2 Old myocardial infarction; E78.5 Hyperlipidemia, unspecified; F17.210 Nicotine dependence, cigarettes, uncomplicated; Z95.5 Presence of coronary angioplasty implant and graft; Z79.02 Long term (current) use of antithrombotics/antiplatelets; Z79.82 Long term (current) use of aspirin; Z79.899 Other long term (current) drug therapy
CPT/HCPCS: 71046; 80048; 84484; 85025; 85610; 85730; 93005; 99285; A4216

== ENCOUNTER 2025-05-23 09:24 | Emergency (ER) | payer MEDICARE, SELFPAY ==
[2025-05-08 08:11] VITALS: BMI 24.7
[2025-05-23] VITALS (12 sets, daily range): BP systolic 89–132; BP diastolic 41–58; PULSE 65–100; RESP 16–25; TEMP 36.7–37.1; O2SAT 94–100; BMI 24.3
--- NOTE | 2025-05-23 10:01 | CT_ITS ---
PROCEDURE: CTA ABD/PELVIS W/WO CONTRAST 05/23/2025 REASON FOR EXAM: GI BLEED Decreasing hemoglobin. TECHNIQUE: CTA ABD/PELVIS W/WO CONTRAST Multiplanar Sagittal and Coronal images were obtained. 3D and or MIPS post processing was performed CONTRAST: Isovue-300 VOLUME: 100 mL One or more dose reduction techniques were used (e.g., Automated exposure control, adjustment of the mA and/or kV according to patient size, use of iterative reconstruction technique). RADIATION DOSE SUMMARY: CTDlvol: 23.5 mGy DLP: 568.17 mGycm COMPARISON: Prior study dated January 24, 2025. FINDINGS: Aorta: Atherosclerotic plaque formation of the abdominal aorta. Iliac Arteries: Unremarkable Celiac: Unremarkable SMA: Unremarkable KEVIN : Not visualized Right Renal: Unremarkable Left Renal: Unremarkable Extravascular Findings: Small bilateral pleural effusions with bibasilar infiltration and/or atelectasis. The liver is unremarkable. Spleen and pancreas are unremarkable as well. Scattered sigmoid diverticula. CT/CTA Abd/Pelvis W/WO Contrast IMPRESSION: No radiographic evidence of active GI bleeding. Reading Location: [id number]
[2025-05-23 10:35] LABS: Hematocrit 26.1 % (37-47); Hemoglobin 7.6 g/dL (12.0-15.0); Immature Granulocytes Count 0.030 X10^3/uL (0.0-0.0); Mean Corp Hgb Conc 29.1 g/dL (32-36); Mean Corpuscular Volume 93.5 fL (81-99); Mean Platelet Vol. 10.7 fl (6.2-12.0); NRBC Flagged by Analyzer 0 % (0-5); Platelet Count 149 K/mm3 (150-450); RBC Distribution Width CV 17.7 % (11.6-14.6); RBC Distribution Width SD 59.0 fl (35.1-43.9); Red Blood Count 2.79 M/mm3 (4.2-5.4); White Blood Count 7.2 K/mm3 (4.4-11.0)
--- NOTE | 2025-05-23 10:39 | EX.ED.DYSGE1 ---
HPI History of Present Illness Chief Complaint: Abn Labs Narrative Narrative: Chief complaint and HPI: Anemia with history of GI bleed. 65-year-old female with past medical history of GERD, NSTEMI status post PCI on aspirin and clopidogrel, recurrent GI bleed who follows with Dr. Huynh presents for evaluation of anemia. History taken by Dr. Huynh over the phone as well as medical record and patient. Patient has a history of a GI bleed in February in which she had a colonoscopy and had an angiodysplastic lesion that was treated by Dr. Huynh. She then had capsule endoscopy that showed active bleeding in her small bowel. She was sent down to [facility] and underwent double-balloon deep enteroscopy. There was a lesion in the jejunum that was treated. She is on iron therapy for her anemia. Has chronic dark stools. States over the past week she has had increased fatigue, exertional shortness of breath, and intermittent lightheadedness. She followed up with GI Dr. Hollingsworth who ordered capsule endoscopy. He states that he reviewed the imaging and there was no active bleeding. He had repeat labs performed that showed an hemoglobin of 8 and told the patient to present to the emergency department. Associated symptom per patient is mild epigastric abdominal pain. Review of systems: See HPI Medications: As listed on the chart Allergies: As listed on the chart PFSH: Per chart Vital signs: As listed on the chart. Reviewed. Physical exam: Gen: A&O x3, NAD Head: Normocephalic, atraumatic Eyes: No sclera icterus, conjunctiva clear ENT: Moist mucous membranes Neck: Trachea midline, No JVD CV: RRR, no murmurs, no peripheral edema Resp: Lungs CTA BL, no w/r/c GI: Abd soft, non-distended, non-tender, no r/r/g Rectal: Normal external examination. No evidence of hemorrhoids or fissures. Normal tone and sensation. No masses, fluctuance, or tenderness. No pain out of proportion. Stool minimal- light brown Musc: Full ROM, no deformity Skin: Warm, dry Neuro: Alert, oriented, grossly intact, sensation intact Psych: Cooperative, appropriate mood and affect [facility] Medical History (Updated 05/23/25 @ 16:[address] Keenan Mitchell, DO) Anemia GERD (gastroesophageal reflux disease) Smoker CPAP (continuous positive airway pressure) dependence Non-ST elevation [place] (NSTEMI) Hematuria UTI (urinary tract infection) Hyperlipidemia Atherosclerosis of coronary artery of [place] heart without angina pectoris Myocardial infarct Home Medications ?Medication ?Instructions ?Recorded ?Last Taken ?Type aspirin 81 mg tablet,delayed 81 mg PO DAILY@0800 heart health 10/11/24 02/18/25 Rx release 90 days #90 tabs atorvastatin 40 mg tablet 40 mg PO QHS cholesterol 90 days 10/26/24 02/17/25 Rx #90 tabs metoprolol succinate 25 mg 25 mg PO DAILY heart 90 days #90 10/26/24 02/21/25 Rx tablet,extended release 24 hr tabs (Toprol XL) albuterol sulfate 90 mcg/actuation 2 puff inhalation Q4H PRN PRN 02/06/25 Unknown Rx aerosol inhaler (Ventolin HFA) Wheezing ##1 nitroglycerin 0.4 mg sublingual 0.4 mg sublingual Q5-15M PRN chest 02/07/25 Unknown Rx tablet pain #25 tabs pantoprazole 40 mg tablet,delayed 40 mg PO DAILY reflux #90 tabs 02/22/25 Unknown Rx release (Protonix) clopidogrel 75 mg tablet 75 mg PO QDAY #90 tabs 04/05/25 Unknown Rx ondansetron 4 mg disintegrating 4 mg PO Q6H PRN PRN Nausea 04/30/25 Unknown History tablet polysaccharide iron complex 150 mg 150 mg PO QDAY 04/30/25 Unknown History iron capsule Allergy/AdvReac Type Severity Reaction Status Date / Time Penicillins Allergy Hives Verified 05/23/25 09:26 Sulfa (Sulfonamide AdvReac Diarrhea Verified 05/23/25 09:26 Antibiotics) Family History Father CAD (coronary artery disease) CABG age 68; CVA (cerebral vascular accident) Myocardial infarction Mother Cancer Cervical, Melanoma, Colon Surgical History (Updated 04/30/25 @ 09:43 by Ritu Cadet LPN) H/O colonoscopy Status post cardiac surgery History of coronary artery stent placement History of carpal tunnel surgery of left wrist History of coronary artery stent placement (02/04/25) Social History household members: spouse housing: house Smoking Status: Current every day smoker tobacco type: cigarettes Tobacco: How many years used: 30 second hand exposure: No alcohol intake: never EXAM Physical Exam Const Vital Signs: 05/23/25 09:25 05/23/25 09:25 05/23/25 11:25 Temperature 98.6 F Temperature Source Oral Pulse Rate 100 77 Respiratory Rate 18 16 Respiratory Effort Normal Non-Labored Respiratory Pattern Normal Blood Pressure 131/54 H 132/58 H Blood Pressure Mean 79 82 Blood Pressure Source Blood Pressure Position Blood Pressure Location Pulse Ox 100 99 Oxygen Delivery Method Room Air 05/23/25 13:00 05/23/25 14:39 05/23/25 14:41 Temperature 98.8 F 98.8 F Temperature Source Oral Oral Pulse Rate 98 80 82 Respiratory Rate 22 H 18 20 H Respiratory Effort Respiratory Pattern Blood Pressure 93/53 L 104/46 L 104/46 L Blood Pressure Mean 66 65 65 Blood Pressure Source Monitor Monitor Blood Pressure Position Supine Semi-Fowlers Blood Pressure Location Right Arm Right Arm Pulse Ox 95 97 98 Oxygen Delivery Method Room Air Room Air Room Air 05/23/25 14:56 05/23/25 15:00 05/23/25 15:56 Temperature 98.7 F 98.1 F Temperature Source Oral Oral Pulse Rate 87 81 81 Respiratory Rate 25 H 19 H 19 H Respiratory Effort Respiratory Pattern Blood Pressure 89/45 L 100/49 L 100/41 L Blood Pressure Mean 59 66 60 Blood Pressure Source Monitor Monitor Blood Pressure Position Semi-Fowlers Blood Pressure Location Right Arm Right Arm Pulse Ox 97 97 94 Oxygen Delivery Method Room Air Room Air Room Air 05/23/25 15:58 05/23/25 16:14 Temperature 98.1 F Temperature Source Oral Pulse Rate 81 86 Respiratory Rate 19 H 18 Respiratory Effort Respiratory Pattern Blood Pressure 100/49 L 102/56 L Blood Pressure Mean 66 71 Blood Pressure Source Blood Pressure Position Blood Pressure Location Pulse Ox 94 96 Oxygen Delivery Method Room Air MDM MDM MDM Narrative Medical decision making narrative: 65-year-old female with past medical history of GERD, NSTEMI status post PCI on aspirin and clopidogrel, recurrent GI bleed who follows with Dr. Huynh presents for evaluation of anemia. History taken by Dr. Huynh over the phone as well as medical record and patient, See HPI. Differential diagnosis includes but is not limited to upper GI bleed, lower GI bleed, anemia, electrolyte abnormality, dehydration. NS bolus, Protonix ordered for symptoms. GI bleed workup ordered including CTA abdomen and pelvis. CBC without leukocytosis. Patient has anemia with a hemoglobin of 7.3. On 04/24 her hemoglobin was 10. It was just recently found to be 8 in the office. She has thrombocytopenia at 148. This appears new on previous chart review. CMP without significant electrolyte abnormality or NAZIA. No transaminitis. Lipase unremarkable. Lactic acid unremarkable. Stool occult negative. CT abdomen pelvis shows no evidence of GI bleed. Patient has scattered diverticuli. At this point in time, no clear etiology to explain patient's anemia. May be her iron deficiency. Dr. Huynh was consulted and patient was discussed. Recommends follow-up in his office as well as with hematology given her recurrent anemia. Given her symptomatic anemia with history of NSTEMI, agrees patient should receive 1 unit and then okay for discharge. Patient was updated of all results and the plan. She confirmed understanding. Patient will be monitored in the ED to receive her transfusion. Patient received blood transfusion without complications. She is able to ambulate in the emergency department without difficulty. Her repeat hemoglobin 8.4. Patient is stable to discharge home. Follow-up with PCP, Dr. Huynh, hematology. Will give her an order to have her CBC repeated in 2 days. Return precautions explained. She confirmed understand the plan. Patient stable to discharge home. Impression: 1. Acute on chronic anemia 2. History of GI bleeds Lab Data Labs: Laboratory Results - last 24 hr 05/23/25 05/23/25 10:20 16:24 WBC 7.2 RBC 2.79 L Hgb 7.6 L 8.4 L Hct 26.1 L MCV 93.5 MCH 27.2 MCHC 29.1 L RDW Std Deviation 59.0 H RDW Coeff of Gerber 17.7 H Plt Count 149 L MPV 10.7 Immature Gran % (Auto) 0.400 Neut % (Auto) 73.1 H Lymph % (Auto) 16.6 L [place] % (Auto) 5.9 Eos % (Auto) 2.7 Baso % (Auto) 1.3 H Absolute Neuts (auto) 5.2 Absolute Lymphs (auto) 1.19 Nucleated RBC % 0 Sodium 142 Potassium 3.9 Chloride 109 H Carbon Dioxide 22.1 Anion Gap 10 BUN 17 Creatinine 1.07 Estim Creat Clear Calc 49.61 L Est GFR (MDRD) Non-Af 57 L BUN/Creatinine Ratio 15.8 Glucose 100 H Lactic Acid 1.2 Calcium 9.2 Total Bilirubin 0.30 AST 11 ALT 15 Alkaline Phosphatase 82 Total Protein 6.5 Albumin 3.9 Globulin 2.6 Albumin/Globulin Ratio 1.5 Lipase 42 Blood Type A NEGATIVE Antibody Screen NEGATIVE Crossmatch See Detail Radiography Diagnostic Testing: Clinical Impression(s) from Imaging Studies Abdomen/Pelvis CTA 05/23/25 10:01 IMPRESSION: No radiographic evidence of active GI bleeding. Reading Location: [facility] Discharge Plan Triage Chief Complaint: Abn Labs ED Provider: Keenan Mitchell Dx/Rx/DC Orders Clinical Impression: Anemia Instructions: Anemia Prescriptions: No Action metoprolol succinate [Toprol XL] 25 mg tablet extended release 24 hr 25 mg PO DAILY 90 Days Qty: 90 3RF atorvastatin 40 mg tablet 40 mg PO QHS 90 Days Qty: 90 3RF ondansetron 4 mg tablet,disintegrating 4 mg PO Q6H PRN PRN (Reason: Nausea) nitroglycerin 0.4 mg tablet, sublingual 0.4 mg sublingual Q5-15M PRN (Reason: chest pain) Qty: 25 3RF Rx Instructions: do not exceed 3 doses per episode clopidogrel 75 mg tablet 75 mg PO QDAY Qty: 90 3RF polysaccharide iron complex 150 mg iron capsule 150 mg PO QDAY aspirin 81 mg Tablet,Delayed Release (Dr/Ec) 81 mg PO DAILY@0800 90 Days Qty: 90 3RF albuterol sulfate [Ventolin HFA] 90 mcg/actuation HFA aerosol inhaler 2 puff inhalation Q4H PRN PRN (Reason: Wheezing) Qty: 1 0RF Rx Instructions: with spacer pantoprazole [Protonix] 40 mg tablet,delayed release (DR/EC) 40 mg PO DAILY Qty: 90 0RF Other Ambulatory Orders: CBC W/Diff, Automated (Routine) Timeframe: 2 Days Facility: [facility] - Location: Laboratory Ordered By: Dr. Keenan Mitchell Primary Care Provider: Florin Bailey Referrals: Dax Álvarez MD [Med Staff - Active Staff] - 3-5 Days Ivan Huynh DO [Med Staff - Active Staff] - 3-5 Days Florin Bailey DO [Primary Care Provider] - 3-5 Days Activity Restrictions/Additional Instructions: Follow-up with your primary care physician, Dr. Huynh, and hematology. You need to make appointments as soon as possible. You need to have your hemoglobin repeated in 48 hours which order was written. Make sure you let your primary care physician know this tomorrow that I ordered this. Return back to the ED if symptoms change or worsen. Monitor blood pressure at home. Print Language: Romanian Disposition Disposition: Home, Self Care
[2025-05-23 11:26] LABS: AST(SGOT) 11 U/L (<=31); Alanine Aminotransfer ALT/SGPT 15 U/L (<=34); Albumin, Serum 3.9 g/dL (3.4-4.8); Alkaline Phosphatase 82 U/L (35-104); Anion Gap 10 (5-15); BUN 17 mg/dL (4-19); BUN/Creat Ratio 15.8 RATIO (10-20); Calcium,Total 9.2 mg/dL (7.6-11.0); Carbon Dioxide 22.1 mmol/L (21.0-32.0); Chloride 109 mmol/L (98-108); Estimated Creatinine Clearance 49.61 ml/min (50-250); Globulin 2.6 g/dL (2.2-4.2); Glucose 100 mg/dL (70-99); Lipase 42 U/L (13-75); Potassium 3.9 mmol/L (3.3-5.1)
[2025-05-23] MEDS: 0.9% Normal Saline (1000mL) 1,000 ML 999 ML IV (11:39)
[2025-05-23] MEDS: Pantoprazole Sodium 40 MG in 0.9% Normal Saline (100mL MB+) 100 ML 300 MG IV (11:39)
[2025-05-23 16:35] LABS: Hemoglobin 8.4 g/dL (12.0-15.0)
== END 2025-05-23 16:58 | disposition home or self-care (01) ==
PROVIDERS: Emergency Provider Surgery; Visit Provider Surgery
DX: R79.9 Abnormal finding of blood chemistry, unspecified (principal); K92.2 Gastrointestinal hemorrhage, unspecified; I25.2 Old myocardial infarction; E78.5 Hyperlipidemia, unspecified; I25.10 Atherosclerotic heart disease of native coronary artery without angina pectoris; F17.210 Nicotine dependence, cigarettes, uncomplicated; D64.9 Anemia, unspecified; Z79.82 Long term (current) use of aspirin; Z79.02 Long term (current) use of antithrombotics/antiplatelets; Z79.899 Other long term (current) drug therapy; K21.9 Gastro-esophageal reflux disease without esophagitis; Z95.5 Presence of coronary angioplasty implant and graft
CPT/HCPCS: 96365; 96366; 99283; 74174; 80053; 82274; 83605; 83690; 85018; 85025; 86850; 86900; 86901; P9016; Q9967

== ENCOUNTER 2025-05-24 08:51 | Inpatient (IN) | payer MEDICARE, SELFPAY ==
[2025-05-08 08:11] VITALS: BMI 24.7
[2025-05-24] VITALS (37 sets, daily range): BP systolic 73–194; BP diastolic 40–132; PULSE 80–137; RESP 10–54; TEMP 35–36.7; O2SAT 75–100; BMI 24.5; BMI 29.1
--- NOTE | 2025-05-24 08:56 | EKG12_ITS ---
Test Reason : SOB Blood Pressure : */* mmHG Vent. Rate : 95 BPM Atrial Rate : 95 BPM P-R Int : 124 ms QRS Dur : 74 ms QT Int : 316 ms P-R-T Axes : 61 71 78 degrees QTcB Int : 397 ms Sinus rhythm with Premature atrial complexes Possible Left atrial enlargement Nonspecific ST abnormality Abnormal ECG Confirmed by MILEY WADSWORTH, RUTH ANN ([id number]), editor & co founder GENIE COBIAN ([id number]) on 05/27/2025 7:03:16 AM Referred By: Confirmed By: RUTH ANN TRENT MD
--- NOTE | 2025-05-24 08:57 | EDS_ITS ---
HPI History of Present Illness Chief Complaint: Shortness of Breath Narrative Narrative: Patient is a 65-year-old female with past medical history of anemia with recent blood transfusion yesterday, GERD, CAD, hyperlipidemia who presented to the emergency department via EMS with a chief complaint of shortness of breath. Per EMS when they arrived she was 75% on room air noted that they try to put her on nonrebreather she was not tolerating this they placed her on nasal cannula she immediately desaturated they placed her back on nonrebreather. Per EMS she took 2 nitro prior to their arrival and the patient states that this did not help. States that she woke up feeling extremely short of breath. They state that the anemia is from unknown etiology. Patient states that she tried her inhaler at home and this did not help her. [facility] Medical History Anemia GERD (gastroesophageal reflux disease) Smoker CPAP (continuous positive airway pressure) dependence Non-ST elevation [place] (NSTEMI) Hematuria UTI (urinary tract infection) Hyperlipidemia Atherosclerosis of coronary artery of [place] heart without angina pectoris Myocardial infarct Home Medications ?Medication ?Instructions ?Recorded ?Last Taken ?Type aspirin 81 mg tablet,delayed 81 mg PO DAILY@0800 heart health 10/11/24 02/18/25 Rx release 90 days #90 tabs atorvastatin 40 mg tablet 40 mg PO QHS cholesterol 90 days 10/26/24 02/17/25 Rx #90 tabs metoprolol succinate 25 mg 25 mg PO DAILY heart 90 day s #90 10/26/24 02/21/25 Rx tablet,extended release 24 hr tabs (Toprol XL) albuterol sulfate 90 mcg/actuation 2 puff inhalation Q 4H PRN PRN 02/06/25 Unknown Rx aerosol inhaler (Ventolin HFA) Wheezing ##1 nitroglycerin 0.4 mg sublingual 0.4 mg sublingual Q5-1 5M PRN chest 02/07/25 Unknown Rx tablet pain #25 tabs pantoprazole 40 mg tablet,delayed 40 mg PO DAILY reflu x #90 tabs 02/22/25 Unknown Rx release (Protonix) clopidogrel 75 mg tablet 75 mg PO QDAY #90 tabs 04/05 Unknown Rx ondansetron 4 mg disintegrating 4 mg PO Q6H PRN PRN Na usea 04/30/25 Unknown H istory tablet polysaccharide iron complex 150 mg 150 mg PO QDAY 06/17 Unknown History iron capsule Allergy/AdvReac Type Severity Reaction Status Date / Time Penicillins Allergy Hives Verified 05/24/25 09:01 Sulfa (Sulfonamide AdvReac Diarrhea Verified 05/24/25 09:01 Antibiotics) Family History Father CAD (coronary artery disease) CABG age 68; CVA (cerebral vascular accident) Myocardial infarction Mother Cancer Cervical, Melanoma, Colon Surgical History H/O colonoscopy Status post cardiac surgery History of coronary artery stent placement History of carpal tunnel surgery of left wrist History of coronary artery stent placement (02/04/25) Social History household members: spouse housing: house Smoking Status: Current every day smoker tobacco type: cigarettes Tobacco: How many years used: 30 second hand exposure: No alcohol intake: never ROS ROS ED ROS Narrative Constitutional: Denies any fevers or chills Eyes: Denies double vision Cardiovascular: Denies chest pain Respiratory: Complains of shortness of breath as noted above, states that she is not coughing up any more sputum than normal Abdomen: Denies abdominal pain nausea vomit diarrhea : Denies any urinary symptoms Neurological: Denies any numbness, wheeze, tingling Musculoskeletal: Denies back pain Skin: Denies rashes or lesions EXAM Physical Exam Narrative Exam Narrative: General: Patient lying in bed did appear to be acutely short of breath Head: Atraumatic, normocephalic Eyes: PERRL bilaterally, EOMI bilateral, no conjunctival injection noted Neck: Soft, supple, trachea midline Cardiovascular: Patient is tachycardic with a regular rhythm Respiratory: Patient has diffuse end expiratory wheezing noted bilaterally Abdomen: Soft, nondistended, nontender to palpation Extremities: Patient has 1+ pitting edema in the bilateral lower extremities, +4/5 strength noted in the bilateral upper and lower extremities Neurological: Patient follow commands knew that she was at [facility] year is 2024 Skin: Warm, dry, intact no rashes or lesions noted Const Vital Signs: 05/24/25 08:52 05/24/25 08:55 05/24/25 08:58 Temperature 97.7 F L 95.0 F L Temperature Source Oral Temporal Pulse Rate 126 H 127 H 113 H Respiratory Rate 35 H 54 H 38 H Respiratory Effort Respiratory Depth Respiratory Pattern Tachypnea Blood Pressure 163/132 H 163/132 H Blood Pressure Mean 142 142 Pulse Ox 100 97 Oxygen Delivery Method Nasal Cannula Non-Rebreather @ 15L/min Oxygen Flow Rate (L/min) 15 Fraction of Inspired Oxygen (FIO2) 05/24/25 09:00 05/24/25 09:05 05/24/25 09:15 Temperature Temperature Source Pulse Rate 133 H Respiratory Rate 35 H Respiratory Effort Labored Accessory Muscle Use Nasal Flaring Pursed Lip Respiratory Depth Shallow Respiratory Pattern Gasping Tachypnea Blood Pressure Blood Pressure Mean Pulse Ox 96 97 Oxygen Delivery Method Non-Rebreather @ 15L/min Room Air Oxygen Flow Rate (L/min) Fraction of Inspired Oxygen (FIO2) 50 05/24/25 09:18 05/24/25 09:19 05/24/25 09:53 Temperature Temperature Source Pulse Rate 130 H Respiratory Rate 31 H 31 H Respiratory Effort Respiratory Depth Respiratory Pattern Blood Pressure 194/101 H Blood Pressure Mean 132 Pulse Ox 97 97 Oxygen Delivery Method Bi-pap Bi-pap Oxygen Flow Rate (L/min) Fraction of Inspired Oxygen (FIO2) 50 50 50 05/24/25 10:00 05/24/25 10:00 05/24/25 10:13 Temperature Temperature Source Pulse Rate 137 H 98 Respiratory Rate 30 H 20 H Respiratory Effort Labored Accessory Muscle Use Pursed Lip Respiratory Depth Shallow Respiratory Pattern Grunting Blood Pressure 175/82 H Blood Pressure Mean 113 Pulse Ox 98 93 Oxygen Delivery Method Bi-pap Mechanical Ventilator Oxygen Flow Rate (L/min) Fraction of Inspired Oxygen (FIO2) 50 Sepsis Attestation Sepsis Organ Dysfunction Criteria Present: Acute Respiratory Failure (New need for BiPAP/CPAP or MV), Lactic Acid > 2 mmol/L and Serum CO2 < 20 mmol/L (on BMP) MDM MDM MDM Narrative Medical decision making narrative: Patient is a 65-year-old female who presented to the emergency department in acute respiratory distress complaint shortness of breath. On the differential diagnosis includes but not limited to flash pulmonary edema, TRALI, TACO, pneumothorax, CHF exacerbation, ACS. Once workup is obtained reviewed she will be reevaluated. Patient will be given 1 L of IV fluids as opposed of the 30 cc/kg bolus secondary to concern for volume overload state this was ordered at 8:55 AM. Patient given 3 DuoNebs and Solu-Medrol. Patient CBC was significant for leukocytosis of 21,000, hemoglobin 10.3, platelet count of 250. Patient's INR normal at 1.2, PT of 14.2. Patient sodium was 140, potassium normal 4.4, creatinine was 1.16. Patient lactic acid elevated 6.1, AST and ALT were 21 and 32 respectively. Patient troponin elevated 19. Patient chest x-ray was reviewed and showed mild hyperexpanded lungs with development of diffuse interstitial edema and small bilateral pleural effusions since previous study suggesting pulmonary vascular congestion/early CHF. Patient's EKG reviewed and showed sinus rhythm with PACs noted with a rate of 95 bpm. This is compared to EKG from April 24, 2025 and largely unchanged Given the patient was not turning around on BiPAP I had discussion with the patient and family members at bedside and ultimately she would want to be placed on the ventilator if need be. Patient after approximately 30 minutes on BiPAP and Ativan that was not turning around therefore was ultimately decided to electively intubate her. Patient will have CT of the chest added on as well. Status post intubation chest x-ray pending as well as KUB for NG/OG placement. See procedure note for separate details. Patient will be given IV Levaquin which was ordered at 9:26 AM. She will be sedated with propofol. Will discuss case with hospitalist for admission to the intensive care unit. Discussed case with hospitalist who accept patient to the intensive care unit. Chest x-ray status post intubation reviewed by myself and the ET tube does appear to be above the tristian between 3 to 4 cm in appropriate positioning. Critical care time 61 minutes Lab Data Labs: Laboratory Results - last 24 hr 05/24/25 05/24/25 05/24/25 08:54 09:04 10:17 WBC 21.3 H RBC 3.59 L Hgb 10.3 L Hct 34.3 L MCV 95.5 MCH 28.7 MCHC 30.0 L RDW Std Deviation 59.7 H RDW Coeff of Gerber 17.3 H Plt Count 250 MPV 10.7 Immature Gran % (Auto) 0.400 Neut % (Auto) 50.4 Lymph % (Auto) 38.7 [place] % (Auto) 5.3 Eos % (Auto) 3.7 Baso % (Auto) 1.5 H Absolute Neuts (auto) 10.8 H Absolute Lymphs (auto) 8.24 H Nucleated RBC % 0 Differential Comment SCANNED Reactive Lymphocytes 1+ PT 14.2 INR 1.1 APTT 26.9 Sodium 140 Potassium 4.4 Chloride 106 Carbon Dioxide 15.0 L Anion Gap 19 H BUN 18 Creatinine 1.16 Estim Creat Clear Calc 45.76 L Est GFR (MDRD) Non-Af 52 L BUN/Creatinine Ratio 15.9 Glucose 220 H Lactic Acid 6.1 H* Calcium 9.3 Total Bilirubin 0.29 AST 21 ALT 32 Alkaline Phosphatase 93 Troponin T High Sens 19 H D NT pro BNP II 520 Total Protein 6.7 Albumin 4.0 Globulin 2.8 Albumin/Globulin Ratio 1.5 Urine Color Yellow Urine Clarity Sl. Cloudy Urine pH 6.0 Ur Specific Crane 1.025 Urine Protein 100 H Urine Glucose (UA) 250 H Urine Ketones Negative Urine Occult Blood 250 H Urine Nitrite Negative Urine Bilirubin Negative Urine Urobilinogen Normal Ur Leukocyte Esterase Negative Radiography Diagnostic Testing: Clinical Impression(s) from Imaging Studies Chest X-Ray 05/24/25 09:40 IMPRESSION: Mildly hyperexpanded lungs with development of diffuse interstitial edema and small bilateral pleural effusions since the previous study suggesting pulmonary vascular congestion/early CHF. Follow-up recommended to ensure resolution Chronic bronchitis but no organized infiltrate Reading Location: [facility] Discharge Plan Triage Chief Complaint: Shortness of Breath ED Provider: Chente Varner Dx/Rx/DC Orders Clinical Impression: Acute hypoxic respiratory failure, COPD exacerbation, History of CHF (congestive heart failure), Type 2 DC (myocardial infarction) Prescriptions: No Action metoprolol succinate [Toprol XL] 25 mg tablet extended release 24 hr 25 mg PO DAILY 90 Days Qty: 90 3RF atorvastatin 40 mg tablet 40 mg PO QHS 90 Days Qty: 90 3RF ondansetron 4 mg tablet,disintegrating 4 mg PO Q6H PRN PRN (Reason: Nausea) nitroglycerin 0.4 mg tablet, sublingual 0.4 mg sublingual Q5-15M PRN (Reason: chest pain) Qty: 25 3RF Rx Instructions: do not exceed 3 doses per episode clopidogrel 75 mg tablet 75 mg PO QDAY Qty: 90 3RF polysaccharide iron complex 150 mg iron capsule 150 mg PO QDAY aspirin 81 mg Tablet,Delayed Release (Dr/Ec) 81 mg PO DAILY@0800 90 Days Qty: 90 3RF albuterol sulfate [Ventolin HFA] 90 mcg/actuation HFA aerosol inhaler 2 puff inhalation Q4H PRN PRN (Reason: Wheezing) Qty: 1 0RF Rx Instructions: with spacer pantoprazole [Protonix] 40 mg tablet,delayed release (DR/EC) 40 mg PO DAILY Qty: 90 0RF Primary Care Provider: Florin Bailey Referrals: Florin Bailey DO [Primary Care Provider] - Print Language: Romanian Disposition Disposition: Acute Care Hospital [facility]
[2025-05-24 09:22] LABS: Hematocrit 34.3 % (37-47); Hemoglobin 10.3 g/dL (12.0-15.0); Immature Granulocytes Count 0.080 X10^3/uL (0.0-0.0); Mean Corp Hgb Conc 30.0 g/dL (32-36); Mean Corpuscular Volume 95.5 fL (81-99); Mean Platelet Vol. 10.7 fl (6.2-12.0); NRBC Flagged by Analyzer 0 % (0-5); POSITIVE DIFFERENTIAL YES; POSITIVE MORPHOLOGY YES; Platelet Count 250 K/mm3 (150-450); RBC Distribution Width CV 17.3 % (11.6-14.6); RBC Distribution Width SD 59.7 fl (35.1-43.9); Red Blood Count 3.59 M/mm3 (4.2-5.4); White Blood Count 21.3 K/mm3 (4.4-11.0)
[2025-05-24 09:23] LABS: Differential Indicated SCAN CRITERIA MET
[2025-05-24 09:31] LABS: Prothrombin Time (Protime)PT. 14.2 SECONDS (11.7-14.9)
[2025-05-24 09:32] LABS: Partial Thromboplast Time 26.9 Seconds (24.1-36.2)
--- NOTE | 2025-05-24 09:40 | RAD_ITS ---
PROCEDURE: CHEST 1 VIEW (PORTABLE) 05/24/2025 REASON FOR EXAM: SOB, COUGH TECHNIQUE: 2 AP portable views COMPARISON: 04/24/2025 FINDINGS: Hardware: EKG leads overlie the chest Heart: The heart size is normal. Lungs: Lungs are mildly hyperexpanded with development of diffuse interstitial edema and small bilateral pleural effusions since the previous study suggesting pulmonary vascular congestion. There is evidence of chronic bronchitis but no organized infiltrate. Bones: Degenerative changes are identified within the thoracic spine. Other: Peripheral calcifications in the thoracic aorta without aneurysm RAD/Chest 1 View (Portable) IMPRESSION: Mildly hyperexpanded lungs with development of diffuse interstitial edema and s mall bilateral pleural effusions since the previous study suggesting pulmonary vascular congestion/early CHF. Follow-up r ecommended to ensure resolution Chronic bronchitis but no organized infiltrate Reading Location: [id number]
[2025-05-24 09:47] LABS: Differential Comment SCANNED; Reactive Lymphocyte 1+
[2025-05-24 09:48] LABS: AST(SGOT) 21 U/L (<=31); Alanine Aminotransfer ALT/SGPT 32 U/L (<=34); Albumin, Serum 4.0 g/dL (3.4-4.8); Alkaline Phosphatase 93 U/L (35-104); Anion Gap 19 (5-15); BUN 18 mg/dL (4-19); BUN/Creat Ratio 15.9 RATIO (10-20); Calcium,Total 9.3 mg/dL (7.6-11.0); Carbon Dioxide 15.0 mmol/L (21.0-32.0); Chloride 106 mmol/L (98-108); Estimated Creatinine Clearance 45.76 ml/min (50-250); Globulin 2.8 g/dL (2.2-4.2); Glucose 220 mg/dL (70-99); Potassium 4.4 mmol/L (3.3-5.1); Pro- Brain NATRIURETIC PEPTIDE 520 pg/mL (<=900)
--- NOTE | 2025-05-24 09:53 | RAD_ITS ---
PROCEDURE: CHEST 1 VIEW (PORTABLE) 05/24/2025 REASON FOR EXAM: Respiratory failure TECHNIQUE: Frontal view of the chest. COMPARISON: None FINDINGS: Hardware: Patient has been intubated, the tip of the ET tube is 4 cm above the tristian in satisfactory position. An NG tube tip is not seen but is well below the diaphragm. EKG leads overlie the chest Heart: The heart size is normal. Lungs: Lungs are expanded with superimposed interstitial edema and possible infiltrate in the right cardiophrenic angle with bilateral pleural effusions. Follow-up recommended to ensure resolution Bones: The bones are unremarkable. Other: RAD/Chest 1 View (Portable) IMPRESSION: Patient has been intubated with NG tube placed as well. Both are in satisfacto ry position Interstitial edema with suspected superimposed right cardiophrenic infiltrate. Small bilateral pleural effusions. Follow-up recommended to ensure resolution Reading Location: [id number]
[2025-05-24] MEDS: Propofol 10MG/Ml 1,000 MG/100 ML Bottle 4.3 MG CONT INF ×2 (10:07→13:55)
[2025-05-24 10:09] LABS: Troponin T High Sensitivity 19 ng/L (<=14)
--- NOTE | 2025-05-24 10:15 | CM.ED ---
Social work Upon arrival to shift, SW observed Dr Varner talking outside patient's room with patient's family members. SW received update from nursing and went to support family. Patient's family stated frustration with the last 8 months of patient's health issues with seemingly no relief. Active listening and supportive presence provided by SW. Patient's sons, Prince and Henry, provided contact information that was added to patient's chart as emergency contacts; permission was given by patient's , Haroon, for this due to patient currently being intubated. No further needs identified at this time due to patient being taken to ICU. Torri Morrison, PHLEBOTOMY SUPERVISOR, SILICA MIXER OPERATOR
--- NOTE | 2025-05-24 10:15 | RAD_ITS ---
PROCEDURE: ABDOMEN SINGLE VIEW 05/24/2025 REASON FOR EXAM: NG PLACEMENT TECHNIQUE: ABDOMEN SINGLE VIEW COMPARISON: None FINDINGS: Bowel gas: Limited visualization. No obvious bowel obstruction seen. Calcifications: No suspicious calcifications. Bones: There are degenerative changes of the spine. Other: The tip of the nasogastric stomach. RAD/Abdomen Single View IMPRESSION: The tip of the nasogastric tube is in the body of the stomach although the prox imal portion is coiled within the fundal portion of the stomach. Reading Location: [id number]
[2025-05-24] MEDS: fentaNYL 100 MCG/2 ML Ampul IV ×2 (10:17→11:05)
[2025-05-24] MEDS: Midazolam 5 MG/ML Syringe 4 MG IV (10:17)
[2025-05-24 10:20] LABS: Mucous, Urine 0 SEEN /hpf (<or=2+)
[2025-05-24 10:26] LABS: Color, Urine Yellow (Yellow); Glucose, Dipstick 250 mg/dl (Normal); Ketone-Dipstick Negative (Negative); Leukocyte Esterase-Dipstick Negative /ul (Negative); Nitrite-Dipstick Negative (Negative); Occult Blood-Urine 250 /ul (Negative); Protein-Dipstick 100 mg/dl (Negative); Specific Gravity, Urine 1.025 (1.002-1.030); Urine Bilirubin Dipstick Negative (Negative)
--- NOTE | 2025-05-24 10:30 | PCM.HP.STD ---
HPI - General General Date of Admission: 05/24/25 Date of Service: 05/24/25 Chief Complaint: shortness of breath HPI Narrative MIGUEL MATHIAS, is a 65 F who presents via the ED with a complaint of shortness of breath. She has a history of anemia and was seen in the ED for anemia. She was transfused with a unit of PRBCs and sent home. However she started getting short of breath during the night. The shortness of breath worsened so she was rushed to the ED by the EMS. When the EMS arrived she was 75% on room air.. She could initially not tolerate a nonrebreather mask and to be put on oxygen by nasal cannula. However she Desaturating. She Was Given Sublingual Nitro by the EMS but it did not help with her shortness of breath. She was placed on BiPAP in the ER but still was not improving so she was electively intubated in the ED. History obtained from her and sons who were at her bedside at time of review Vitals at time of review were temperature of 95. Hide, pulse rate of 98 after intubation, blood pressure 175/82 and respiratory rate of 20. She was on mechanical ventilator at FiO2 of 50% and saturating at 93%. CBC showed WBC of 21.3 with hemoglobin of 10.3 and platelets of 250. INR was 1.1. Chemistry showed sodium of 140 with potassium of 4.4 and anion gap of 19. Bicarb was 15. Creatinine was 1.16. Lactic acid was 6.1. Urinalysis showed no evidence of UTI. CTA of the chest was ordered and is pending. Chest x-ray done on initial arrival in the ED showed mildly hyperexpanded lungs with development of diffuse interstitial edema and small bilateral pleural effusions suggesting pulmonary vascular congestion versus CHF. She has been admitted to be managed for acute hypoxic respiratory failure in the setting of recent blood transfusion, and possible acute exacerbation of heart failure. [facility] Medical History Anemia GERD (gastroesophageal reflux disease) Smoker CPAP (continuous positive airway pressure) dependence Non-ST elevation PA (NSTEMI) Hematuria UTI (urinary tract infection) Hyperlipidemia Atherosclerosis of coronary artery of [place] heart without angina pectoris Myocardial infarct Home Medications ?Medication ?Instructions ?Recorded ?Last Taken ?Type aspirin 81 mg tablet,delayed 81 mg PO DAILY@0800 [facility] 10/11/24 02/18/25 Rx release 90 days #90 tabs atorvastatin 40 mg tablet 40 mg PO QHS cholesterol 90 days 10/26/24 02/17/25 Rx #90 tabs metoprolol succinate 25 mg 25 mg PO DAILY heart 90 days #90 10/26/24 02/21/25 Rx tablet,extended release 24 hr tabs (Toprol XL) albuterol sulfate 90 mcg/actuation 2 puff inhalation Q4H PRN PRN 02/06/25 Unknown Rx aerosol inhaler (Ventolin HFA) Wheezing ##1 nitroglycerin 0.4 mg sublingual 0.4 mg sublingual Q5-15M PRN chest 02/07/25 Unknown Rx tablet pain #25 tabs pantoprazole 40 mg tablet,delayed 40 mg PO DAILY reflux #90 tabs 02/22/25 Unknown Rx release (Protonix) clopidogrel 75 mg tablet 75 mg PO QDAY #90 tabs 04/05/25 Unknown Rx ondansetron 4 mg disintegrating 4 mg PO Q6H PRN PRN Nausea 04/30/25 Unknown History tablet polysaccharide iron complex 150 mg 150 mg PO QDAY 04/30/25 Unknown History iron capsule Allergy/AdvReac Type Severity Reaction Status Date / Time Penicillins Allergy Hives Verified 05/24/25 10:39 Sulfa (Sulfonamide AdvReac Diarrhea Verified 05/24/25 10:39 Antibiotics) Family History Father CAD (coronary artery disease) CABG age 68; CVA (cerebral vascular accident) Myocardial infarction Mother Cancer Cervical, Melanoma, Colon Surgical History H/O colonoscopy Status post cardiac surgery History of coronary artery stent placement History of carpal tunnel surgery of left wrist History of coronary artery stent placement (02/04/25) Social History household members: spouse housing: house Smoking Status: Current every day smoker tobacco type: cigarettes Tobacco: How many years used: 30 second hand exposure: No alcohol intake: never ROS Review of Systems ROS Unobtainable: due to encephalopathy Vital Signs Vital Signs Vital Signs: 05/24/25 08:52 05/24/25 08:55 05/24/25 08:58 Temperature 97.7 F L 95.0 F L Temperature Source Oral Temporal Pulse Rate 126 H 127 H 113 H Respiratory Rate 35 H 54 H 38 H Respiratory Effort Respiratory Depth Respiratory Pattern Tachypnea Blood Pressure 163/132 H 163/132 H Blood Pressure Mean 142 142 Pulse Ox 100 97 Oxygen Delivery Method Nasal Cannula Non-Rebreather @ 15L/min Oxygen Flow Rate (L/min) 15 Fraction of Inspired Oxygen (FIO2) 05/24/25 09:00 05/24/25 09:05 05/24/25 09:15 Temperature Temperature Source Pulse Rate 133 H Respiratory Rate 35 H Respiratory Effort Labored Accessory Muscle Use Nasal Flaring Pursed Lip Respiratory Depth Shallow Respiratory Pattern Gasping Tachypnea Blood Pressure Blood Pressure Mean Pulse Ox 96 97 Oxygen Delivery Method Non-Rebreather @ 15L/min Room Air Oxygen Flow Rate (L/min) Fraction of Inspired Oxygen (FIO2) 50 05/24/25 09:18 05/24/25 09:19 05/24/25 09:53 Temperature Temperature Source Pulse Rate 130 H Respiratory Rate 31 H 31 H Respiratory Effort Respiratory Depth Respiratory Pattern Blood Pressure 194/101 H Blood Pressure Mean 132 Pulse Ox 97 97 Oxygen Delivery Method Bi-pap Bi-pap Oxygen Flow Rate (L/min) Fraction of Inspired Oxygen (FIO2) 50 50 50 05/24/25 10:00 05/24/25 10:13 Temperature Temperature Source Pulse Rate 137 H 98 Respiratory Rate 30 H 20 H Respiratory Effort Respiratory Depth Respiratory Pattern Blood Pressure 175/82 H Blood Pressure Mean 113 Pulse Ox 98 93 Oxygen Delivery Method Bi-pap Mechanical Ventilator Oxygen Flow Rate (L/min) Fraction of Inspired Oxygen (FIO2) 50 Weight Weight: 157 lb Body Mass Index (BMI) 24.5 Physical Exam Const Constitutional Narrative: intubated, lethargic Orientation / Consciousness: lethargic HEENT normocephalic HEENT Narrative: dry oral mucosa Eyes EOMs intact bilaterally Neck supple Resp Resp Narrative: Diminished breath sounds bibasilarly. Tachypneic. Intubated and on the ventilator. Cardio S1 normal heart sound, S2 normal heart sound and no murmurs Cardio Narrative: tachycardic GI normal to inspection, nondistended, normoactive bowel sounds, soft to palpation and non-tender Extremity normal to inspection and no clubbing, cyanosis or edema Neuro Neuro Narrative: intubated, sedated Results Lab / Micro Data 05/24/25 09:04 05/24/25 09:04 Labs: Laboratory Results - last 24 hr 05/24/25 08:54: Troponin T High Sens 19 H D 05/24/25 09:04: WBC 21.3 H, RBC 3.59 L, Hgb 10.3 L, Hct 34.3 L, MCV 95.5, MCH 28.7, MCHC 30.0 L, RDW Std Deviation 59.7 H, RDW Coeff of [place] 17.3 H, Plt Count 250, MPV 10.7, Immature Gran % (Auto) 0.400, Neut % (Auto) 50.4, Lymph % (Auto) 38.7, [place] % (Auto) 5.3, Eos % (Auto) 3.7, Baso % (Auto) 1.5 H, Absolute Neuts (auto) 10.8 H, Absolute Lymphs (auto) 8.24 H, Nucleated RBC % 0, Differential Comment SCANNED, Reactive Lymphocytes 1+, PT 14.2, INR 1.1, APTT 26.9, Sodium 140, Potassium 4.4, Chloride 106, Carbon Dioxide 15.0 L, Anion Gap 19 H, BUN 18, Creatinine 1.16, Estim Creat Clear Calc 45.76 L, Est GFR (MDRD) Non-Af 52 L, BUN/Creatinine Ratio 15.9, Glucose 220 H, Lactic Acid 6.1 H*, Calcium 9.3, Total Bilirubin 0.29, AST 21, ALT 32, Alkaline Phosphatase 93, NT pro BNP II 520, Total Protein 6.7, Albumin 4.0, Globulin 2.8, Albumin/Globulin Ratio 1.5 05/24/25 10:17: Urine Color Yellow, Urine Clarity Sl. Cloudy, Urine pH 6.0, Ur Specific [place] 1.025, Urine Protein 100 H, Urine Glucose (UA) 250 H, Urine Ketones Negative, Urine Occult Blood 250 H, Urine Nitrite Negative, Urine Bilirubin Negative, Urine Urobilinogen Normal, Ur Leukocyte Esterase Negative Imaging Radiology Impression Chest X-Ray 05/24/25 09:40 IMPRESSION: Mildly hyperexpanded lungs with development of diffuse interstitial edema and small bilateral pleural effusions since the previous study suggesting pulmonary vascular congestion/early CHF. Follow-up recommended to ensure resolution Chronic bronchitis but no organized infiltrate Reading Location: [id number] Assessment & Plan Assessment/Plan (1) History of CHF (congestive heart failure): (2) Acute hypoxic respiratory failure: PLAN: Plan #Acute hypoxic respiratory failure Etiology seems to be multifactorial. She was admitted with a complaint of acute sudden onset shortness of breath today in the early hours. She was seen in the ED yesterday on account of anemia and transfused with 1 unit of packed red blood cells. If it is trolley or tackle him thinking that his symptoms would have presented much earlier so these are lower on my list of differentials. She does have a history of smoking so COPD flareup is a possibility. It is unclear whether she has a history of heart failure as family could not really tell. CTA of the chest done was negative for PE but did show small bilateral pleural effusions with consolidations in both lower lobes with superimposed CHF Patient hypotensive and so has to be started on Levophed in the ED. Will start on broad-spectrum antibiotics with IV vancomycin and cefepime Admit to ICU. Consult critical care. Started on IV Solu-Medrol for presumptive COPD exacerbation also. Blood cultures and urine cultures obtained. Breathing treatments bronchodilators. Will hold off on diuretics for now due to shock. #Septic shock Likely due to bilateral pneumonia as above. Lactic acid was elevated at 6.1. On IV vancomycin and meropenem as above. Critical care on board. To start on vasopressors in light of persistent shock. #Lactic acidosis: likely due to septic shock and hypoxia. should improve as septic shock and hypoxia improve. Will repeat as per sepsis protocol #Nonstemi patient's tropnoin markedly elevated with initial troponin of 296. WIll cycle. EKG showed no acute st changes. this may be a type 2 nonstemi due to demand ischemia. WIll cycle troponins and 2D echo also ordered. 2D echo from 01/2025 showed EF of 65% with no evidence of diastolic dysfunction and no regional wall motion abnormalities noted; 2+ mitral valve insufficiency #History of CAD s/p stents: on aspirin, plavix and statin. Hold metoprolol due to septic shock. #History of nicotine dependence: smokes a pack daily. Nicotine patch prn DVT prophylaxis: lovenox Code status patient's and sons counseled extensively about different types of CODE STATUS including full code, DNR CCA and DNR CCA. They elect for patient to be full code. total face to face time: 16 mins Charges/Coding Visit Charges Inpatient E&M: 22134 Init Hosp L3 Procedures Hospitalists Procedures: 05610 Advncd Care Plan 30 Min
[2025-05-24] MEDS: levoFLOXacin IV 750 MG/150 ML BAG 100 MG IV (10:32)
[2025-05-24 10:39] LABS: Red Blood Cells-Urine 5-10 SEEN /hpf (0-5); Squamous Epithelial Cells - UA 0-5 SEEN /hpf (5-10)
[2025-05-24 10:40] LABS: Fine Granular Cast- Urine 0-5 SEEN /lpf (0-5)
--- NOTE | 2025-05-24 10:57 | CT_ITS ---
PROCEDURE: CTA CHEST W/WO CONTRAST N/A REASON FOR EXAM: SOB TECHNIQUE: CTA CHEST W/WO CONTRAST Multiplanar Sagittal and Coronal images were obtained. 3D post processing was performed CONTRAST: [id number] VOLUME: 100 mL One or more dose reduction techniques were used (e.g., Automated exposure control, adjustment of the mA and/or kV according to patient size, use of iterative reconstruction technique). RADIATION DOSE SUMMARY: CTDlvol: 10.06 mGy DLP: 497.13 mGycm COMPARISON: Chest radiograph done earlier in the day. FINDINGS: Hardware: Endotracheal tube is seen in-situ. Lymph nodes: No lymph node enlargement is seen. Calcified subcarinal lymph nodes. Heart: Coronary artery calcification. The heart size upper limits of normal. Thoracic Aorta: No thoracic aortic aneurysm or dissection. Atherosclerotic plaque formation Pulmonary Vessels: No pulmonary embolism seen. Lungs and Airways: Small bilateral pleural effusions with consolidation in both lower lobes. Superimposed mild degree of vascular congestion and CHF. Upper Abdomen: Tiny nonobstructive calculus in the lower pole calyx of the left kidney. Nasogastric tube is seen within the stomach. Bones: Degenerative changes of the thoracic spine. CT/CTA Chest W/WO Contrast IMPRESSION: No evidence of pulmonary embolism. Small bilateral pleural effusions with consolidation in both lower lobes with s uperimposed CHF. Reading Location: [id number]
[2025-05-24] MEDS: Midazolam 2 MG/2 ML Syringe 4 MG IV (11:05)
[2025-05-24] MEDS: fentaNYL drip 100 ML 10 MCG CONT INF ×2 (11:15→18:42)
--- NOTE | 2025-05-24 11:28 | CPS ---
Pt intubated with 7.[address] Varner. Secured with tube jonas, 22cm at the lip. Bilateral breath sounds and CO2 color metric noted for positive placement. Patient placed on ventilator with ordered settings. Patient remained stable throughout procedure. CXR obtained.
[2025-05-24 11:31] LABS: Base Excess -10 mmol/L (-2 to +2); FI02 70.0; PEEP 5; PO2 84 mmHG (75-100); RR 14; SITE L Brach; SO2 93 % (95-99); Time Given 11:28:37
[2025-05-24] MEDS: 0.9% Normal Saline (1000mL) 1,000 ML 999 ML IV ×2 (11:39→13:10)
[2025-05-24 12:33] LABS: CPK Total, Creatine Kinase 66 U/L (24-195); Triglycerides 102 mg/dL
--- NOTE | 2025-05-24 12:37 | EX.PCM.CONCC ---
Assessment & Plan Assessment/Plan (1) Acute hypoxic respiratory failure: PLAN: Plan RECOMMENDATIONS: 1. Continue assist-control mode mechanical ventilation. Wean FiO2 and PEEP to maintain saturations at or above 90%. 2. Administer sepsis fluids per protocol. 3. If the patient remains hypotensive post fluid resuscitation, will initiate vasopressor support. 4. Continue broad-spectrum antimicrobials, pending infectious workup. 5. Start scheduled bronchodilators and steroids. 6. Initiate appropriate ICU prophylaxis. 7. Repeat echocardiogram is pending. 8. Reflex lactate. Obtain follow-up ABG. IMPRESSIONS: 1. Acute hypoxemic and hypercapnic respiratory failure Clinical concern for underlying COPD exacerbation related to pneumonia with expanded differential that would include TRALI and TACO. The patient does have suspected COPD based upon an extensive tobacco abuse history, but has not completed pulmonary function studies yet. While she did receive a transfusion yesterday, it was only 1 unit of packed red blood cells and the patient did have an echocardiogram in January 2025 which revealed intact normal systolic function. Therefore, circulatory overload seems less likely. Ultimately, the patient was intubated in the emergency department. She will be continued on assist-control mode of mechanical ventilation with a goal to wean FiO2 and PEEP to maintain saturations at or above 90%. Empiric antimicrobials will be continued, pending culture results. Repeat echocardiogram is currently pending. The patient will be initiated on scheduled bronchodilators and steroids. 2. Septic shock The patient presented to the hospital with sepsis due to possible pneumonia with acute sepsis related organ dysfunction as evidenced by respiratory failure requiring invasive mechanical ventilatory support and lactic acidemia. Plan to administer the remainder of the sepsis fluids per protocol. If the patient remains hypotensive after fluid resuscitation, vasopressors will be initiated. Plan to reflex lactate. Antimicrobials have been initiated. 3. History of recurrent anemia of unclear etiology Continue to monitor blood counts and transfuse if hemoglobin drops below 7 g/dL. Continue PPI therapy as ordered. 4. History of tobacco dependency/obstructive sleep apnea/history of coronary artery disease status post PCI Complicates care, management, recovery and prognosis. Continue supportive measures as noted above. CODE STATUS: Full code (discussed with family at the bedside.) TIME: 40 minutes of critical care time, independent of procedures, was spent addressing the patient's acute hypoxemic and hypercapnic respiratory failure, septic shock, review of all data and collaboration with the care team. HPI Consult Data Date of Consult: 05/24/25 HPI Narrative Reason for Consultation: Respiratory failure, septic shock HPI Narrative: The patient is a 65-year-old female, with a history as outlined below, who presented to the emergency department on May 24 with complaints of dyspnea. The patient had been evaluated in the emergency department the day prior on May 23 after presenting with abnormal labs in the setting of symptomatic anemia, for which the patient was transfused 1 unit of packed red blood cells. Her hemoglobin in the emergency department was noted to be 7.6 g/dL. Posttransfusion she was noted to be 8.4 g/dL. She has a history of recurrent anemia and is followed by GI on an outpatient basis. The patient is currently established in the pulmonary medicine clinic due to a history of chronic tobacco dependency, obstructive sleep apnea and concern for COPD. Pulmonary function studies were ordered at her last office visit on April 30, but have yet to be completed. In addition, the patient is followed by Dr. Leavitt of cardiology due to a history of coronary artery disease status post stenting of the mid circumflex and balloon angioplasty of the first diagonal. On presentation to the emergency department, the patient was documented to be hypothermic, tachycardic and tachypneic. Laboratory evaluation was notable for a white blood cell count of 21,000. Hemoglobin was stable at 10.3 g/dL. Coagulation profile was within normal limits. Chemistry profile was notable for a bicarbonate of 15 with an anion gap of 19 and creatinine of 1.16. Lactate was elevated at 6.1. Troponin was mildly elevated at 19 with a normal BNP. Urine analysis was negative for nitrites and leukocyte esterase. Initial chest x-ray demonstrated hyperinflated lung jimenez with interstitial edema and small bilateral pleural effusions. The patient was ultimately placed on noninvasive positive pressure ventilatory support, but continued to decompensate clinically. Therefore, the patient was intubated while in the emergency department. Blood and urine cultures were collected. It was reported to me that only 1 L fluid bolus administered to the patient. CTA chest ruled out pulmonary embolism but did demonstrate small bilateral pleural effusions. Antimicrobials were initiated and the patient was admitted to the medical intensive care unit for further management. On arrival to the ICU, the patient remained tenuous from a hemodynamic perspective. Therefore, central venous catheter was placed an order for Levophed was initiated. FORMERLY [facility] Medical History Anemia GERD (gastroesophageal reflux disease) Smoker CPAP (continuous positive airway pressure) dependence Non-ST elevation [place] (NSTEMI) Hematuria UTI (urinary tract infection) Hyperlipidemia Atherosclerosis of coronary artery of [place] without angina pectoris Myocardial infarct Home Medications ?Medication ?Instructions ?Recorded ?Last Taken ?Type aspirin 81 mg tablet,delayed 81 mg PO DAILY@0800 heart health 10/11/24 02/18/25 Rx release 90 days #90 tabs atorvastatin 40 mg tablet 40 mg PO QHS cholesterol 90 days 10/26/24 02/17/25 Rx #90 tabs metoprolol succinate 25 mg 25 mg PO DAILY heart 90 days #90 10/26/24 02/21/25 Rx tablet,extended release 24 hr tabs (Toprol XL) albuterol sulfate 90 mcg/actuation 2 puff inhalation Q4H PRN PRN 02/06/25 Unknown Rx aerosol inhaler (Ventolin HFA) Wheezing ##1 nitroglycerin 0.4 mg sublingual 0.4 mg sublingual Q5-15M PRN chest 02/07/25 Unknown Rx tablet pain #25 tabs pantoprazole 40 mg tablet,delayed 40 mg PO DAILY reflux #90 tabs 02/22/25 Unknown Rx release (Protonix) clopidogrel 75 mg tablet 75 mg PO QDAY #90 tabs 04/05/25 Unknown Rx ondansetron 4 mg disintegrating 4 mg PO Q6H PRN PRN Nausea 04/30/25 Unknown History tablet polysaccharide iron complex 150 mg 150 mg PO QDAY 04/30/25 Unknown History iron capsule Allergy/AdvReac Type Severity Reaction Status Date / Time Penicillins Allergy Hives Verified 05/24/25 10:39 Sulfa (Sulfonamide AdvReac Diarrhea Verified 05/24/25 10:39 Antibiotics) Family History Father CAD (coronary artery disease) CABG age 68; CVA (cerebral vascular accident) Myocardial infarction Mother Cancer Cervical, Melanoma, Colon Surgical History H/O colonoscopy Status post cardiac surgery History of coronary artery stent placement History of carpal tunnel surgery of left wrist History of coronary artery stent placement (02/04/25) Social History household members: spouse housing: house Smoking Status: Current every day smoker tobacco type: cigarettes Tobacco: How many years used: 30 second hand exposure: No alcohol intake: never ROS Review of Systems ROS Unobtainable: due to endotracheal tube Physical Exam Const Constitutional Narrative: The patient is currently intubated, sedated and mechanically ventilated. No ventilator dyssynchrony noted. HEENT normocephalic and head/scalp atraumatic Mouth: endotracheal tube in place and OG tube in place Eyes PERRL, EOMs intact bilaterally and conjunctivae normal Neck supple General: trachea midline Chest inspection of chest normal Resp normal respiratory effort Auscultation: rales and diminished lung sounds Cardio regular rate and regular rhythm GI normal to inspection, nondistended, normoactive bowel sounds Extremity General Extremity: edema; Negative for clubbing Skin no rashes or lesions noted Neuro Sensorium / Orientation: sedated on vent Lab / Micro Data 05/24/25 09:04 05/24/25 09:04 Labs: Laboratory Results - last 24 hr 05/24/25 08:54: Total Creatine Kinase 66, Troponin T High Sens 19 H D, Triglycerides 102 05/24/25 09:04: WBC 21.3 H, RBC 3.59 L, Hgb 10.3 L, Hct 34.3 L, MCV 95.5, MCH 28.7, MCHC 30.0 L, RDW Std Deviation 59.7 H, RDW Coeff of [place] 17.3 H, Plt Count 250, MPV 10.7, Immature Gran % (Auto) 0.400, Neut % (Auto) 50.4, Lymph % (Auto) 38.7, [place] % (Auto) 5.3, Eos % (Auto) 3.7, Baso % (Auto) 1.5 H, Absolute Neuts (auto) 10.8 H, Absolute Lymphs (auto) 8.24 H, Nucleated RBC % 0, Differential Comment SCANNED, Reactive Lymphocytes 1+, PT 14.2, INR 1.1, APTT 26.9, Sodium 140, Potassium 4.4, Chloride 106, Carbon Dioxide 15.0 L, Anion Gap 19 H, BUN 18, Creatinine 1.16, Estim Creat Clear Calc 45.76 L, Est GFR (MDRD) Non-Af 52 L, BUN/Creatinine Ratio 15.9, Glucose 220 H, Lactic Acid 6.1 H*, Calcium 9.3, Total Bilirubin 0.29, AST 21, ALT 32, Alkaline Phosphatase 93, NT pro BNP II 520, Total Protein 6.7, Albumin 4.0, Globulin 2.8, Albumin/Globulin Ratio 1.5 05/24/25 10:17: Urine Color Yellow, Urine Clarity Sl. Cloudy, Urine pH 6.0, Ur Specific [place] 1.025, Urine Protein 100 H, Urine Glucose (UA) 250 H, Urine Ketones Negative, Urine Occult Blood 250 H, Urine Nitrite Negative, Urine Bilirubin Negative, Urine Urobilinogen Normal, Ur Leukocyte Esterase Negative, Urine RBC 5-10 SEEN, Urine WBC 0 SEEN, Ur Squamous Epith Cells 0-5 SEEN, Urine Bacteria 1+, Fine Granular Casts 0-5 SEEN, Urine Mucus 0 SEEN ABG Data ABG results: ABG 05/24/25 11:27 Specimen Type ART Sample Site L Brach pH 7.16 L* Bicarbonate Actual 19.1 L Total CO2 21 Base Excess -10 L O2 Saturation 93 L O2 % 70.0 ABG pCO2 53.1 H ABG pO2 84 Respiration Rate 14 O2 Delivery Device Not entered Vent Mode BiLevel Tidal Volume 350.0 POC PEEP 5 Crit Call To/Read Back Yes Blood Gas Notified Whom hinojosa Blood Gas Notified Time 11:28:37 Imaging Radiology Impression Chest X-Ray 05/24/25 09:40 IMPRESSION: Mildly hyperexpanded lungs with development of diffuse interstitial edema and small bilateral pleural effusions since the previous study suggesting pulmonary vascular congestion/early CHF. Follow-up recommended to ensure resolution Chronic bronchitis but no organized infiltrate Reading Location: [facility] Chest X-Ray 05/24/25 09:53 IMPRESSION: Patient has been intubated with NG tube placed as well. Both are in satisfactory position Interstitial edema with suspected superimposed right cardiophrenic infiltrate. Small bilateral pleural effusions. Follow-up recommended to ensure resolution Reading Location: [id number] X-Ray 05/24/25 10:15 IMPRESSION: The tip of the nasogastric tube is in the body of the stomach although the proximal portion is coiled within the fundal portion of the stomach. Reading Location: [id number] Sepsis Attestation Sepsis Alert: Yes Sepsis Attestation: Agree w/Sepsis Date exam was performed: 05/24/25 Time exam was performed: 12:55 Possible Source of Sepsis: Pulmonary Sepsis Organ Dysfunction Criteria Present: SBP < 90 mmHg or MAP < 65 mmHg, Acute Respiratory Failure (New need for BiPAP/CPAP or MV) and Lactic Acid > 2 mmol/L Fluid Resuscitation Fluid resuscitation indicated?: Yes Fluid Resuscitation ordered: 30 ml/kg fluid bolus ordered Sepsis Note Date exam was performed: 05/24/25 Time exam was performed: 13:56 Sepsis Attestation: Sepsis re-evaluation was performed Response to fluids: Non Fluid responsive hypotension and Vasopressors started Charges/Coding Procedures Hospitalists Procedures: 68497 Critical Care 1st Hr
[2025-05-24 13:10] LABS: Reflex Lactate? Y
--- NOTE | 2025-05-24 13:25 | ECHOD_ITS ---
Reason For Study Reason For Study: CHF Procedure This was a 2D Doppler, Color Flow transthoracic echocardiogram. The study was technically difficult. Patient scanned on right side on vent. Exam performed portable in ICU/CCU. Left Ventricle Normal LV size. The left ventricular ejection fraction is 65 %. Mild segmental systolic dysfunction (see wall motion). Segmental dysfunction with preserved ejection fraction (see wall motion). Mid- Lateral : Hypokinetic. Lateral-Basal: Hypokinetic. Posterior-Basal: Hypokinetic. Right Ventricle Normal RV size. Normal systolic function. Mitral Valve Moderate papillary muscle dysfunction of the mitral valve. Normal mitral valve. Moderately severe (3+) anteriorly directed mitral valve insufficiency. Tricuspid Valve Normal tricuspid valve. Moderate (2+) tricuspid valve insufficiency. Pulmonary artery systolic pressure is 54 mmHg. Aortic Valve Trisinus/trileaflet aortic valve. Pulmonic Valve Normal pulmonic valve. Great Vessels Normal aortic root. The pulmonary artery is normal size. The inferior vena cava is dilated. Pericardium/Pleural No pericardial effusion. MMode/2D Measurements & Calculations LVIDd: 4.6 cm IVSd: 1.1 cm Ao root diam: 3.1 cm LVIDs: 3.1 cm LVPWd: 1.0 cm RVDd: 3.3 cm FS: 31.7 % LAV(MOD-bp): 42.7 ml LVAd ap4: 30.2 cm2 LVAd ap2: 32.1 cm2 LAV(MOD-bp) Indexed: 23.4 ml/m2 LVLd ap4: 8.4 cm LVLd ap2: 8.4 cm LAV(MOD-sp2): 49.7 ml EDV(MOD-sp4): 90.3 ml EDV(MOD-sp2): 102.7 ml LAV(MOD-sp4): 37.5 ml EDV(sp4-el): 92.2 ml EDV(sp2-el): 103.6 ml LVAs ap4: 16.2 cm2 LVAs ap2: 17.0 cm2 LVLs ap4: 6.9 cm LVLs ap2: 7.1 cm ESV(MOD-sp4): 33.1 ml ESV(MOD-sp2): 37.0 ml ESV(sp4-el): 32.4 ml ESV(sp2-el): 34.8 ml EF(MOD-sp4): 63.3 % EF(MOD-sp2): 63.9 % EF(sp4-el): 64.8 % SV(MOD-sp4): 57.2 ml SV(MOD-sp2): 65.7 ml SV(sp4-el): 59.8 ml SI(MOD-sp4): 31.3 ml/m2 SI(MOD-sp2): 36.0 ml/m2 LA A4 area: 15.5 cm2 LA dimension(2D): 3.9 cm RA A4 area: 15.0 cm2 TAPSE: 2.2 cm Doppler Measurements & Calculations MV E max osman: 93.9 cm/sec Lat Peak E' Osman: 9.7 cm/sec Med Peak E' Osman: 9.4 cm/sec MV A max osman: 89.2 cm/sec E/E' lat: 9.7 E/E' med: 9.9 MV E/A: 1.1 Ao V2 max: 123.7 cm/sec LV V1 max: 94.2 cm/sec PA V2 max: 95.0 cm/sec Ao max P.1 mmHg LV V1 max P.5 mmHg TR max osman: 346.8 cm/sec TR max P.1 mmHg ECHO/Echo Complete Interpretation Summary Normal LV size. The left ventricular ejection fraction is 65 %. Mild segmental systolic dysfunction (see wall motion). Segmental dysfunction with preserved ejection fraction (see wall motion). Moderate papillary muscle dysfunction of the mitral valve. Moderately severe (3+) anteriorly directed mitral valve insufficiency. Ordering Physician: Estrella Hanna Referring Physician: Florin Bailey Performed By: Delmy Alfaro RDCS
--- NOTE | 2025-05-24 13:30 | RAD_ITS ---
PROCEDURE: CHEST 1 VIEW (PORTABLE) 05/24/2025 REASON FOR EXAM: RIJ CENTRAL LINE PLACEMENT TECHNIQUE: Frontal view of the chest. COMPARISON: Prior study dated May 24, 2025 earlier in the day. FINDINGS: Hardware: Endotracheal tube has been placed. The tip is at 4.8 cm proximal the tristian. An orogastric tube is seen with the tip below the left hemidiaphragm. A right-sided internal jugular venous catheter has been placed with tip in the superior vena cava. EKG electrodes are seen. Heart: Borderline cardiomegaly. Lungs: Persistent increased interstitial markings suggestive of mild CHF. Bones: Degenerative changes are identified within the thoracic spine. Other: RAD/Chest 1 View (Portable) IMPRESSION: The endotracheal tube, the right IJ catheter and orogastric tube are in good po sition. The lungs are unchanged. Reading Location: [id number]
--- NOTE | 2025-05-24 13:31 | PCM.OP.PRO2 ---
Procedures Hospitalists Procedures: [id number] Insert Non-tunnel CV Cath Non-invasive Procedural Procedure Information Date of Procedure: 05/24/25 Description of procedure: Central Venous Catheter Indication: Septic Shock Consent was obtained from: A time-out was completed verifying correct patient, procedure, site, positioning, and special equipment if applicable. The patient was placed in a dependent position appropriate for central line placement based on the vein to be cannulated. The patient's right neck was prepped and draped in a sterile fashion. 1% lidocaine was used to anesthetize the surrounding skin area. A triple-lumen catheter was introduced into the right IJ using the Seldinger technique and under ultrasound guidance. The catheter was threaded smoothly over the guidewire and appropriate blood return was obtained. Each lumen of the catheter was evacuated of air and flushed with sterile saline. The catheter was then sutured in place to the skin and a sterile dressing applied. Chest x-ray to confirm appropriate positioning is pending. ULTRASOUND GUIDANCE STATEMENT (Vascular Access): I performed ultrasound image acquisition and interpretation for needle placement during the procedure. The vessel was identified and found to be free of thrombosis by compression technique. A safe point of entry was marked at the skin in an angle for axis was determined. The needle was guided by obtaining free-flowing fluid and by real-time visualization.
--- NOTE | 2025-05-24 14:06 | PCM.RX.CS ---
Consult Antibiotic Management Pharmacy has been consulted to manage selected antibiotic: Vancomycin Type of Intervention Type of Consult: New start Suspected Infection Suspected Infection: Sepsis Labs Labs: Sodium 140 mmol/L (133-145) 05/24/25 09:04 Potassium 4.4 mmol/L (3.3-5.1) 05/24/25 09:04 Chloride 106 mmol/L (98-108) 05/24/25 09:04 Carbon Dioxide 15.0 mmol/L (21.0-32.0) L 05/24/25 09:04 Anion Gap 19 (5-15) H 05/24/25 09:04 BUN 18 mg/dL (4-19) 05/24/25 09:04 Creatinine 1.16 mg/dL (0.70-1.20) 05/24/25 09:04 Est GFR (MDRD) Non-Af 52 (>60) L 05/24/25 09:04 BUN/Creatinine Ratio 15.9 RATIO (10-20) 05/24/25 09:04 Glucose 220 mg/dL (70-99) H 05/24/25 09:04 Microbiology Microbiology: Cultures: Urine: pending Blood: pending Sputum: pending Dosing Weight Weight used for dosin.1 kg Estimated Creatinine Clearance Estimated Creatinine Clearance: 46 Goal Trough Goal Trough: 15-20 mcg/mL Pharmacy Plan for Drug Dosing Pharmacy Plan for Drug Dosing: Pharmacy Service will continue to monitor and adjust dosing as required. NEW START IV VANCOMYCIN Consulting Physician: ASHLEY WATTERS Indication: SEPSIS Goal Trough: 15-20 SrCr: 1.16 CrCl: 45.8 LA: 6.1 WBC: 21.3 Comments: 65 YOF PRESENTING WITH SEPSIS SYMPTOMS AND SOB. Cultures: - BLOOD: PENDING - URINE: PENDING - SPUTUM: PENDING Vancomycin Dose: LD 1750 MG ONCE MD: 500 MG Q12H WITH FIRST DOSE 05/25 @ 0200 Pending Level: 05/27 @ 013 Other abx: [email or web address] Date/Time Labs Ordered Labs to be done on [date and time ordered]: Trough ordered: 05/27 @ 013
[2025-05-24] MEDS: 0.9% Normal Saline (250mL Bag) 250 ML 999 ML IV (14:13)
[2025-05-24] MEDS: Vancomycin HCl 1,750 MG in 0.9% Normal Saline (500mL Bag) 500 ML 250 MG IV (14:15)
[2025-05-24] MEDS: Norepinephrine 8 MG in 0.9% Normal Saline (250mL Bag) 242 ML 9.4 MG CONT INF (14:28)
[2025-05-24] MEDS: Meropenem 1 GM in 0.9% Normal Saline (100mL MB+) 100 ML IV ×2 (14:32→21:30)
[2025-05-24 14:34] LABS: Base Excess -7 mmol/L (-2 to +2); FI02 60.0; PEEP 5; PO2 77 mmHG (75-100); RR 18; SITE L Brach; SO2 93 % (95-99)
[2025-05-24 16:14] LABS: Troponin T High Sensitivity 296 ng/L (<=14)
[2025-05-24] MEDS: Pantoprazole Sodium 40 MG in 0.9% Normal Saline (100mL MB+) 100 ML 300 MG IV (16:58)
[2025-05-24 19:47] LABS: Troponin T High Sens 4 HR 343 ng/L (<=14)
[2025-05-24] MEDS: Chlorhexidine 15 ML PO (23:58)
[2025-05-25] VITALS (38 sets, daily range): BP systolic 98–120; BP diastolic 45–67; PULSE 79–951; RESP 14–18; TEMP 36.6–37.4; O2SAT 90–94; BMI 29.0
[2025-05-25] MEDS: 0.9% Saline Lock 10 ML Syringe IV ×8 (00:05→23:39)
[2025-05-25] MEDS: Propofol 10MG/Ml 1,000 MG/100 ML Bottle 10.7 MG CONT INF (00:20)
[2025-05-25] MEDS: CHLORHEXIDINE GLUC 2% CLOTH 1 EACH TOWELETTE TOPICAL ×2 (02:35→23:25)
[2025-05-25] MEDS: Vancomycin HCl 500 MG in 0.9% Normal Saline (100mL Bag) 100 ML 100 MG IV ×2 (02:35→14:23)
[2025-05-25] MEDS: fentaNYL drip 100 ML 10 MCG CONT INF ×3 (03:00→23:25)
[2025-05-25 03:07] LABS: Hematocrit 27.1 % (37-47); Hemoglobin 8.3 g/dL (12.0-15.0); Immature Granulocytes Count 0.070 X10^3/uL (0.0-0.0); Mean Corp Hgb Conc 30.6 g/dL (32-36); Mean Corpuscular Volume 93.4 fL (81-99); Mean Platelet Vol. 10.7 fl (6.2-12.0); NRBC Flagged by Analyzer 0 % (0-5); POSITIVE DIFFERENTIAL YES; Platelet Count 189 K/mm3 (150-450); RBC Distribution Width CV 17.0 % (11.6-14.6); RBC Distribution Width SD 57.5 fl (35.1-43.9); Red Blood Count 2.90 M/mm3 (4.2-5.4); White Blood Count 15.0 K/mm3 (4.4-11.0)
[2025-05-25 03:51] LABS: Anion Gap 12 (5-15); BUN 24 mg/dL (4-19); BUN/Creat Ratio 23.0 RATIO (10-20); Calcium,Total 8.5 mg/dL (7.6-11.0); Carbon Dioxide 17.4 mmol/L (21.0-32.0); Chloride 111 mmol/L (98-108); Estimated Creatinine Clearance 50.81 ml/min (50-250); Glucose 151 mg/dL (70-99); Potassium 4.3 mmol/L (3.3-5.1)
--- NOTE | 2025-05-25 03:54 | RAD_ITS ---
PROCEDURE: CHEST 1 VIEW (PORTABLE) 05/25/2025 REASON FOR EXAM: RESPIRATORY FAILURE TECHNIQUE: Frontal view of the chest. COMPARISON: 05/24/2025 FINDINGS: ETT tip at thoracic inlet. Enteric tube tip in stomach lumen. Right IJ CVC tip in SVC. Normal heart size. Status post coronary stenting. Small bilateral effusions. Under aerated lungs. Worsening bilateral mid and lower lung zone opacities, atelectasis/consolidation. No pneumothorax. RAD/Chest 1 View (Portable) IMPRESSION: Small bilateral effusions and adjacent airspace disease. Interval worsening ae ration at the bases, particularly at the right base.. Reading Location: [place] [id number]
[2025-05-25] MEDS: TITRATION PARAMETER CHANGE 1 EACH IV (05:31)
[2025-05-25 05:37] LABS: Base Excess -6 mmol/L (-2 to +2); FI02 35.0; PEEP 5; PO2 67 mmHG (75-100); RR 18; SITE R Radial; SO2 90 % (95-99)
[2025-05-25] MEDS: Propofol 10MG/Ml 1,000 MG/100 ML Bottle 15.6 MG CONT INF (06:27)
[2025-05-25] MEDS: Chlorhexidine 15 ML PO ×2 (08:00→20:20)
--- NOTE | 2025-05-25 10:09 | PN_ITS ---
Subjective Subjective Patient seen and examined. She remains intubated and sedated. Her son was by her bedside. Unable to do review of systems;.She remains on propofol, fentanyl and levophed. Objective Data Objective Data Vital Signs: Vital Signs Temp Pulse Resp BP Pulse Ox O2 Del Method O2 Flow Rate 98.4 F 90 18 106/53 L 93 Mechanical Ventilator 15 05/25/25 07:00 05/25/25 09:25 05/25/25 09:25 05/25/25 09:15 05/25/25 09:25 05/25/25 07:00 05/24/25 08:52 FiO2 40 05/25/25 09:25 Oxygen Flow Rate (L/min) 15 Oxygen Delivery Method Mechanical Ventilator Weight: 164 lb 0.383 oz Body Mass Index (BMI) 29.0 Intake & Output: Intake and Output for Last 24 Hours 05/23/25 05/24/25 05/25/25 23:59 23:59 23:59 Intake Total 3399.68 / 3457.58 573.23 / 573.23 Output Total 195 / 195 650 / 650 Balance 3204.68 / 3262.58 -76.77 / -76.77 Lab / Micro Data 05/25/25 02:58 05/25/25 02:58 Labs: Laboratory Results - last 24 hr 05/24/25 08:54: Total Creatine Kinase 66, Troponin T High Sens 19 H D, Triglycerides 102 05/24/25 10:17: Urine Color Yellow, Urine Clarity Sl. Cloudy, Urine pH 6.0, Ur Specific [place] 1.025, Urine Protein 100 H, Urine Glucose (UA) 250 H, Urine Ketones Negative, Urine Occult Blood 250 H, Urine Nitrite Negative, Urine Bilirubin Negative, Urine Urobilinogen Normal, Ur Leukocyte Esterase Negative, Urine RBC 5-10 SEEN, Urine WBC 0 SEEN, Ur Squamous Epith Cells 0-5 SEEN, Urine Bacteria 1+, Fine Granular Casts 0-5 SEEN, Urine Mucus 0 SEEN 05/24/25 14:45: Lactic Acid 1.5, Troponin T High Sens 296 H* D 05/24/25 18:35: Troponin T Hi Sens 4Hr 343 H* 05/25/25 02:58: WBC 15.0 H, RBC 2.90 L, Hgb 8.3 L, Hct 27.1 L, MCV 93.4, MCH 28.6, MCHC 30.6 L, RDW Std Deviation 57.5 H, RDW Coeff of Gerber 17.0 H, Plt Count 189, MPV 10.7, Immature Gran % (Auto) 0.500, Neut % (Auto) 94.6 H, Lymph % (Auto) 3.9 L, [place] % (Auto) 0.9, Eos % (Auto) 0.0, Baso % (Auto) 0.1, Absolute Neuts (auto) 14.2 H, Absolute Lymphs (auto) 0.59 L, Nucleated RBC % 0, Sodium 141, Potassium 4.3, Chloride 111 H, Carbon Dioxide 17.4 L, Anion Gap 12, BUN 24 H, Creatinine 1.04, Estim Creat Clear Calc 50.81, Est GFR (MDRD) Non-Af 59 L, B UN/Creatinine Ratio 23.0 H, Glucose 151 H, Calcium 8.5 Micro: Microbiology 05/24/25 13:30 Sputum, Tracheal Aspirate Gram Stain - Final 05/24/25 15:15 Urine Catheter - Henson Legionella Antigen - Final 05/24/25 15:15 Urine Catheter - Henson Streptococcus pneumoniae Antigen (M - Final 05/24/25 13:05 Mucosa - Nasopharyngeal Coronavirus COVID-19 PCR - Final 05/24/25 13:05 Mucosa - Nasopharyngeal Respiratory Panel (PCR) - Final ABG Data ABG results: ABG 05/24/25 05/24/25 05/25/25 11:27 14:31 05:31 Specimen Type ART ART ART Sample Site L Brach L Brach R Radial pH 7.16 L* 7.25 L 7.27 L Bicarbonate Actual 19.1 L 20.1 L 21.0 L Total CO2 21 22 22 Base Excess -10 L -7 L -6 L O2 Saturation 93 L 93 L 90 L O2 % 70.0 60.0 35.0 ABG pCO2 53.1 H 46.2 H 45.3 H ABG pO2 84 77 67 L Kel Test N/A N/A Respiration Rate 14 18 18 O2 Delivery Device Not entered ET Tube Adult Vent Vent Mode BiLevel AC AC Tidal Volume 350.0 350.0 350.0 POC PEEP 5 5 5 Crit Call To/Read Back Yes Blood Gas Notified Whom ashish Blood Gas Notified Time 11:28:37 Radiography Diagnostic Testing: Radiology Impression Chest X-Ray 08/01/25 09:53 IMPRESSION: Patient has been intubated with NG tube placed as well. Both are in satisfactory position Interstitial edema with suspected superimposed right cardiophrenic infiltrate. Small bilateral pleural effusions. Follow-up recommended to ensure resolution Reading Location: [id number] X-Ray 05/24/25 10:15 IMPRESSION: The tip of the nasogastric tube is in the body of the stomach although the proximal portion is coiled within the fundal portion of the stomach. Reading Location: [facility] Chest CTA 05/24/25 10:57 IMPRESSION: No evidence of pulmonary embolism. Small bilateral pleural effusions with consolidation in both lower lobes with superimposed CHF. Reading Location: [id number] Echocardiogram 05/24/25 13:25 Interpretation Summary Normal LV size. The left ventricular ejection fraction is 65 %. Mild segmental systolic dysfunction (see wall motion). Segmental dysfunction with preserved ejection fraction (see wall motion). Moderate papillary muscle dysfunction of the mitral valve. Moderately severe (3+) anteriorly directed mitral valve insufficiency. Ordering Physician: Estrella Hanna Referring Physician: Florin Bailey Performed By: Delmy Alfaro, ANAYA Chest X-Ray 05/24/25 13:30 IMPRESSION: The endotracheal tube, the right IJ catheter and orogastric tube are in good position. The lungs are unchanged. Reading Location: [id number] Chest X-Ray 05/25/25 03:54 IMPRESSION: Small bilateral effusions and adjacent airspace disease. Interval worsening aeration at the bases, particularly at the right base.. Reading Location: [place] [address] Physical Exam Const Constitutional Narrative: intubated, lethargic Orientation / Consciousness: lethargic HEENT normocephalic Eyes EOMs intact bilaterally Neck supple Resp Resp Narrative: Diminished breath sounds bibasilarly. Tachypneic. Intubated and on the ventilator. Cardio S1 normal heart sound, S2 normal heart sound and no murmurs GI normal to inspection, nondistended, normoactive bowel sounds, soft to palpation and non-tender Extremity normal to inspection, normal capillary refill and no clubbing, cyanosis or edema General Extremity: no tenderness to palpation of joints or extremities Skin General Skin Exam: no breakdown Neuro Neuro Narrative: intubated, sedated. RASS score is -4 Assessment & Plan Assessment/Plan (1) History of CHF (congestive heart failure): (2) Acute hypoxic respiratory failure: PLAN: Plan #Acute hypoxic respiratory failure * Etiology seems to be multifactorial. She was admitted with a complaint of acute sudden onset shortness of breath today in the early hours. She was seen in the ED yesterday on account of anemia and transfused with 1 unit of packed red blood cells. If it is trolley or tackle him thinking that his symptoms would have presented much earlier so these are lower on my list of differentials. * She does have a history of smoking so COPD flareup is a possibility. It is unclear whether she has a history of heart failure as family could not really tell. * CTA of the chest done was negative for PE but did show small bilateral pleural effusions with consolidations in both lower lobes with superimposed CHF * remains on levophed. On iV vancomycin and meropenem * critical care on board * blood and urine cultures pending * RASS score is -4 * also on IV solumedrol * Blood cultures and urine cultures obtained. * Breathing treatments with bronchodilators. * Will hold off on diuretics for now due to shock. * wbc is down to 15, from 21 on admission. * #Septic shock * Likely due to bilateral pneumonia as above. Lactic acid was elevated at 6.1. * On IV vancomycin and meropenem as above. * Critical care on board. remains on levophed, titrate for MAP >65. * #Lactic acidosis: * likely due to septic shock and hypoxia. * resolved and is down to 1.5 #Nonstemi * patient's troponin markedly elevated with initial troponin of 296. Trended up to 343 * EKG showed no acute st changes. * this may be a type 2 nonstemi due to demand ischemia. WIll cycle troponins and 2D echo also ordered. * 2D echo from 01/2025 showed EF of 65% with no evidence of diastolic dysfunction and no regional wall motion abnormalities noted; 2+ mitral valve insufficiency * 2D echo showed EF of 65% with mild segmental systolic dysfunction and moderately severe 3+ mitral valve insufficiency, with pulmonary artery systolic pressure of 54mmHg. * cardiology consulted. * #History of CAD s/p stents: on aspirin, plavix and statin. Hold metoprolol due to septic shock. #History of nicotine dependence: smokes a pack daily. Nicotine patch prn DVT prophylaxis: lovenox Code status * full code Charges/Coding Visit Charges Inpatient E&M: 64806 Subs Hosp L3
--- NOTE | 2025-05-25 10:12 | PN.CC_ITS ---
Objective Data Objective Data Vital Signs: Vital Signs Last response 3 Temperature 36.9 C 05/25/25 07:00 Temperature Source Core 05/25/25 07:00 Pulse Rate 90 05/25/25 09:25 Respiratory Rate 18 05/25/25 09:25 Respiratory Effort Mechanically Ventilated 05/25/25 04:45 Respiratory Depth Normal 05/25/25 04:45 Respiratory Pattern Normal 05/25/25 09:25 Blood Pressure 106/53 L 05/25/25 09:15 Blood Pressure Mean 70 05/25/25 09:15 Blood Pressure Source Monitor 05/25/25 07:00 Blood Pressure Position Semi-Fowlers 05/25/25 07:00 Blood Pressure Location Right Arm 05/25/25 07:00 Pulse Ox 93 05/25/25 09:25 Oxygen Delivery Method Mechanical Ventilator 05/25/25 07:00 Oxygen Flow Rate (L/min) 15 05/24/25 08:52 Fraction of Inspired Oxygen (FIO2) 40 05/25/25 09:25 I&O: I&O Last 24 Hours 3 05/24/25 05/24/25 05/25/25 11:59 23:59 11:59 Intake Total 146.25 / 3457.58 3253.43 / 3457.58 573.23 / 573.23 Output Total 195 / 195 650 / 650 Balance 146.25 / 3262.58 3058.43 / 3262.58 -76.77 / -76.77 I&O: Total Stay 3 05/24/25 08:51 thru 05/25/25 09:15 Intake Total 3972.91 Output Total 845 Balance 3127.91 Current Meds Ordered / Administered: Current meds ordered / Administered 3 Generic Name Dose Route Start Last Admin Trade Name Freq PRN Reason Stop Dose Admin Acetaminophen 650 mg 05/24/25 13:25 Acetaminophen 325 Mg Tablet PO Q6H PRN PRN Pain 1-10 Or Fever >100.7 Albuterol/Ipratropium 3 ml 05/24/25 13:00 05/25/25 07:33 Ipratropium/Albuterol Sulfate 3 Ml Ampul.Neb INHALATION 3 ml Q4HWA.RT GABO Administration Chlorhexidine Gluconate 15 ml 05/24/25 22:45 05/24/25 23:58 Chlorhexidine 15 Ml PO 15 ml BID GABO Administration Chlorhexidine Gluconate 1 each 05/24/25 22:45 05/25/25 02:35 Chlorhexidine Gluc 2% Cloth 1 Each [place] TOPICAL 1 each DAILY GABO Administration Enoxaparin Sodium 40 mg 05/24/25 13:15 05/24/25 16:58 Enoxaparin 40 Mg/0.4 Ml Syringe SC 40 mg DAILY GABO Administration Propofol 1,000 mg in 100 mls @ 4.464 mls/hr 05/24/25 09:55 05/25/25 09:00 Diprivan CONT INF 40 mcg/kg/min .Q12H GABO 17.9 mls/hr Titration Protocol 10 MCG/KG/MIN Fentanyl 100 mls @ 10 mls/hr 05/24/25 10:55 05/25/25 09:00 CONT INF 100 mcg/hr UD GABO 10 mls/hr Titration Protocol 100 MCG/HR Norepinephrine Bitartrate 8 mg 250 mls @ 9.375 mls/hr 05/24/25 11:50 05/25/25 09:15 / Sodium Chloride CONT INF 10 mcg/min .[id number] GABO 18.8 mls/hr Titration Protocol 5 MCG/MIN Meropenem 1 gm/ Sodium 100 mls @ 33 mls/hr 05/24/25 14:00 05/25/25 00:46 Chloride IV Infused Q12 GABO Infusion Vancomycin IV-PHARMACY TO DOSE 500 mls @ 250 mls/hr 05/24/25 13:00 1 each/ Sodium Chloride IV X1 PRN Rx to Dose Protocol Pantoprazole Sodium 40 mg/ 100 mls @ 300 mls/hr 05/24/25 13:10 05/24/25 17:53 Sodium Chloride IV Infused Q24 GABO Infusion Vancomycin HCl 500 mg/ Sodium 110 mls @ 100 mls/hr 05/25/25 02:00 05/25/25 04:12 Chloride IV Infused Q12H GABO Infusion Sodium Chloride 250 mls @ 15 mls/hr 05/24/25 16:18 IV .[id number] PRN Saline Flush Sodium Chloride 250 mls @ 15 mls/hr 05/24/25 16:18 IV .[id number] PRN Additional IVPB Infusion Methylprednisolone Sodium Succinate 40 mg 05/24/25 18:00 05/25/25 05:23 Methylprednisolone Sod Succ 40 Mg/Ml Vial IV 40 mg Q6 GABO Administration Nitroglycerin 0.4 mg 05/24/25 13:25 Nitroglycerin (Inpatient Use) 0.4 Mg Tab.Subl SL Q5M PRN CARDIAC/CHEST PAIN Ondansetron HCl 4 mg 05/24/25 13:25 Ondansetron 4 Mg/2 Ml Vial IV Q8H PRN PRN NAUSEA/VOMITING Sodium Chloride 10 - 40 ml 05/24/25 16:18 05/25/25 05:25 0.9% Saline Lock 10 Ml Syringe IV 10 ml UD PRN Administration SALINE FLUSH Vancomycin Protocol 1 lab 05/26/25 00:30 Vancomycin Trough/Random Due MC 05/26/25 02:30 DAILY [facility] Lab / Micro Data Attestation: I reviewed the patient's lab results. 05/25/25 02:58 05/25/25 02:58 Labs: Laboratory Results - last 24 hr 05/24/25 08:54: Total Creatine Kinase 66, Triglycerides 102 05/24/25 10:17: Urine Color Yellow, Urine Clarity Sl. Cloudy, Urine pH 6.0, Ur Specific [place] 1.025, Urine Protein 100 H, Urine Glucose (UA) 250 H, Urine Ketones Negative, Urine Occult Blood 250 H, Urine Nitrite Negative, Urine Bilirubin Negative, Urine Urobilinogen Normal, Ur Leukocyte Esterase Negative, Urine RBC 5-10 SEEN, Urine WBC 0 SEEN, Ur Squamous Epith Cells 0-5 SEEN, Urine Bacteria 1+, Fine Granular Casts 0-5 SEEN, Urine Mucus 0 SEEN 05/24/25 14:45: Lactic Acid 1.5, Troponin T High Sens 296 H* D 05/24/25 18:35: Troponin T Hi Sens 4Hr 343 H* 05/25/25 02:58: WBC 15.0 H, RBC 2.90 L, Hgb 8.3 L, Hct 27.1 L, MCV 93.4, MCH 28.6, MCHC 30.6 L, RDW Std Deviation 57.5 H, RDW Coeff of Ger[place] 17.0 H, Plt Count 189, MPV 10.7, Immature Gran % (Auto) 0.500, Neut % (Auto) 94.6 H, Lymph % (Auto) 3.9 L, [place] % (Auto) 0.9, Eos % (Auto) 0.0, Baso % (Auto) 0.1, Absolute Neuts (auto) 14.2 H, Absolute Lymphs (auto) 0.59 L, Nucleated RBC % 0, Sodium 141, Potassium 4.3, Chloride 111 H, Carbon Dioxide 17.4 L, Anion Gap 12, BUN 24 H, Creatinine 1.04, Estim Creat Clear Calc 50.81, Est GFR (MDRD) Non-Af 59 L, B UN/Creatinine Ratio 23.0 H, Glucose 151 H, Calcium 8.5 Micro: Microbiology 05/24/25 13:30 Sputum, Tracheal Aspirate Gram Stain - Final 05/24/25 15:15 Urine Catheter - Henson Legionella Antigen - Final 05/24/25 15:15 Urine Catheter - Henson Streptococcus pneumoniae Antigen (M - Final 05/24/25 13:05 Mucosa - Nasopharyngeal Coronavirus COVID-19 PCR - Final 05/24/25 13:05 Mucosa - Nasopharyngeal Respiratory Panel (PCR) - Final ABG Data ABG results: ABG 05/24/25 05/24/25 05/25/25 11:27 14:31 05:31 Specimen Type ART ART ART Sample Site L Brach L Brach R Radial pH 7.16 L* 7.25 L 7.27 L Bicarbonate Actual 19.1 L 20.1 L 21.0 L Total CO2 21 22 22 Base Excess -10 L -7 L -6 L O2 Saturation 93 L 93 L 90 L O2 % 70.0 60.0 35.0 ABG pCO2 53.1 H 46.2 H 45.3 H ABG pO2 84 77 67 L Kel Test N/A N/A Respiration Rate 14 18 18 O2 Delivery Device Not entered ET Tube Adult Vent Vent Mode BiLevel AC AC Tidal Volume 350.0 350.0 350.0 POC PEEP 5 5 5 Crit Call To/Read Back Yes Blood Gas Notified Whom hinojosa Blood Gas Notified Time 11:28:37 Imaging Radiology Impression Chest X-Ray 05/24/25 09:53 IMPRESSION: Patient has been intubated with NG tube placed as well. Both are in satisfactory position Interstitial edema with suspected superimposed right cardiophrenic infiltrate. Small bilateral pleural effusions. Follow-up recommended to ensure resolution Reading Location: [id number] X-Ray 08/01/25 10:15 IMPRESSION: The tip of the nasogastric tube is in the body of the stomach although the proximal portion is coiled within the fundal portion of the stomach. Reading Location: [id number] Chest CTA 05/24/25 10:57 IMPRESSION: No evidence of pulmonary embolism. Small bilateral pleural effusions with consolidation in both lower lobes with superimposed CHF. Reading Location: [id number] Echocardiogram 05/24/25 13:25 Interpretation Summary Normal LV size. The left ventricular ejection fraction is 65 %. Mild segmental systolic dysfunction (see wall motion). Segmental dysfunction with preserved ejection fraction (see wall motion). Moderate papillary muscle dysfunction of the mitral valve. Moderately severe (3+) anteriorly directed mitral valve insufficiency. Ordering Physician: Estrella Hanna Referring Physician: Florin Bailey Performed By: Delmy Alfaro RDCS Chest X-Ray 05/24/25 13:30 IMPRESSION: The endotracheal tube, the right IJ catheter and orogastric tube are in good position. The lungs are unchanged. Reading Location: [id number] Chest X-Ray 05/25/25 03:54 IMPRESSION: Small bilateral effusions and adjacent airspace disease. Interval worsening aeration at the bases, particularly at the right base.. Reading Location: [place] [address] Assessment and Plan . Assessment and plan: Assessment & Plan Assessment/Plan IMPRESSIONS: 1. Acute hypoxemic and hypercapnic respiratory failure clinical concern for AECOPD contributing with blood gases revealing mixed disturbance with both primary metabolic acidosis as well as acute on chronic respiratory acidosis. Blood gases reviewed; vent adjustments made as needed 2. Septic shock, on pressors, LA has cleared. Following culture results 3. History of recurrent anemia of unclear etiology, s/p outpatient ransfusion 1 PRBC arian [employer] Continue to monitor blood counts and transfuse if hemoglobin drops below 7 g/dL. Continue PPI therapy as ordered. 4. History of tobacco dependency/obstructive sleep apnea/history of coronary artery disease status post PCI Complicates care, management, recovery and prognosis. Continue supportive measures as noted above. RECOMMENDATIONS: 1. Continue AC mode ventilation 2. complete sepsis bundle follow up cultures 3. serial LA 4. same sedation regimen as still needed, 5. not yet ready for SAT/ SBT. Critical Care Time: 50 minutes The entirety of this encounter was done via Telemedicine Physical Exam Const General Appearance: intubated and patient mechanically ventilated Orientation / Consciousness: obtunded HEENT head/scalp atraumatic Head and Scalp: normal to inspection Face and Sinus: normal facial exam Mouth: endotracheal tube in place and OG tube in place Eyes PERRL General Eye: normal appearance of both eyes Neck full ROM Chest inspection of chest normal Resp Effort and Inspection: prolonged expiratory phase and mechanically ventilated Cardio regular rate Neuro Sensorium / Orientation: sedated on vent Meningeal Signs: no meningeal signs Subjective Subjective Restless on vent despite sedation
[2025-05-25] MEDS: Propofol 10MG/Ml 1,000 MG/100 ML Bottle 17.9 MG CONT INF ×3 (10:34→21:00)
[2025-05-25] MEDS: Meropenem 1 GM in 0.9% Normal Saline (100mL MB+) 100 ML IV ×2 (10:37→20:35)
[2025-05-25] MEDS: Pantoprazole Sodium 40 MG in 0.9% Normal Saline (100mL MB+) 100 ML 300 MG IV (10:40)
[2025-05-25] MEDS: Norepinephrine 8 MG in 0.9% Normal Saline (250mL Bag) 242 ML 18.8 MG CONT INF ×2 (10:51→23:25)
--- NOTE | 2025-05-25 11:45 | CON.PCM.CA_ITS ---
Documented by User: Dr. Jihan Mcclain MD 05/25/25 15:03 Assessment & Plan Assessment/Plan (1) Acute hypoxic respiratory failure: (2) History of CHF (congestive heart failure): (3) Cardiac murmur: (4) CAD (coronary artery disease): QUALIFIERS: Associated angina: without angina Coronary Disease- Associated Artery/Lesion type: [place] artery [place] vs. transplanted heart: n ative heart Qualified Code(s): I25.10 - Atherosclerotic heart disease of [place] coronary artery without angina pectoris (5) Type 2 [place] (myocardial infarction): (6) COPD exacerbation: (7) Anemia: QUALIFIERS: Anemia type: iron deficiency Iron deficiency anemia type: chronic blood loss Qualified Code(s): D50.0 - Iron deficiency anemia secondary to blood loss (chronic) (8) Obstructive sleep apnea: PLAN: Plan Acute respiratory failure s/p intubation CHF exacerbation likely secondary to severe MR Moderate to severe MR likely contributing to CHF exacerbation with pulmonary edema leading to acute respiratory failure on top of underlying COPD and chronic anemia - IV fluids and salt restriction, - Start IV diuresis 40 IV twice daily since the patient on pressors, monitor urine output, close monitoring of fluid input and output, daily weight, - Monitor kidney function electrolytes keep potassium above 4 and mag above 2, - Once the patient is off pressors we will start low-dose CT inhibitor/ARB's/low-dose Entresto if blood pressure allows in addition to beta- brandy for goal-directed medical therapy for severe mitral regurgitation. - Once stable the patient will require cardiac catheterization and PAULINE for further evaluation of mitral regurgitation. Coronary disease Troponin elevation - Patient with history of coronary disease s/p PCI to LCX 02/05/25, pTCA to D1, known moderate disease in RCA. - Start aspirin, Plavix (will reload and start 75 mg p.o. daily afterwards )and statins. - ECG showed NSR with PVCs - Echo showed wall motion abnormalities suggestive of ischemia in the left circumflex territory likely leading to papillary muscle dysfunction leading to mitral regurgitation. - Start home dose of BB once hemodynamically stable. - Will arrange for cardiac cath once hemodynamically stable. - Troponin elevation is likely demand ischemia given underlying CHF. 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 She has a history of anemia, CAD and was seen in the ED for anemia. She was transfused with a unit of PRBCs and sent home. However she started getting short of breath during the night. The shortness of breath worsened so she was rushed to the ED by the EMS. When the EMS arrived she was 75% on room air.. She could initially not tolerate a nonrebreather mask and to be put on oxygen by nasal cannula. However she Desaturating. She Was Given Sublingual Nitro by the EMS but it did not help with her shortness of breath. She was placed on BiPAP in the ER but still was not improving so she was electively intubated in the ED. Echo showed RWMA with severe MR I spoke with the son he is not sure if she was taking Plavix at home, she was being investigated at [facility] for chronic anemia with questionable GI bleed, occult blood done recently and during this hospitalization is negative, she will s/p 1 packed RBCs blood transfusion in the ED and she was sent home as listed above. [facility] Medical History Anemia GERD (gastroesophageal reflux disease) Smoker CPAP (continuous positive airway pressure) dependence Non-ST elevation [place] (NSTEMI) Hematuria UTI (urinary tract infection) Hyperlipidemia Atherosclerosis of coronary artery of [place] heart without angina pectoris Myocardial infarct Home Medications ?Medication ?Instructions ?Recorded ?Last Taken ?Type aspirin 81 mg tablet,delayed 81 mg PO DAILY@0800 heart [facility] 10/11/24 02/18/25 Rx release 90 days #90 tabs atorvastatin 40 mg tablet 40 mg PO QHS cholesterol 90 days 10/26/24 02/17/25 Rx #90 tabs metoprolol succinate 25 mg 25 mg PO DAILY heart 90 day s #90 10/26/24 02/21/25 Rx tablet,extended release 24 hr tabs (Toprol XL) albuterol sulfate 90 mcg/actuation 2 puff inhalation Q 4H PRN PRN 02/06/25 Unknown Rx aerosol inhaler (Ventolin HFA) Wheezing ##1 nitroglycerin 0.4 mg sublingual 0.4 mg sublingual Q5-1 5M PRN chest 02/07/25 Unknown Rx tablet pain #25 tabs pantoprazole 40 mg tablet,delayed 40 mg PO DAILY reflu x #90 tabs 02/22/25 Unknown Rx release (Protonix) clopidogrel 75 mg tablet 75 mg PO QDAY anti platelet #90 04/05/25 Unknown Rx tabs ondansetron 4 mg disintegrating 4 mg PO Q6H PRN PRN Na usea 04/30/25 Unknown History tablet polysaccharide iron complex 150 mg 150 mg PO QDAY anem ia 04/30/25 Unknown History iron capsule Allergy/AdvReac Type Severity Reaction Status Date / Time Penicillins Allergy Hives Verified 05/24/25 10:39 Sulfa (Sulfonamide AdvReac Diarrhea Verified 05/24/25 10:39 Antibiotics) Family History Father CAD (coronary artery disease) CABG age 68; CVA (cerebral vascular accident) Myocardial infarction Mother Cancer Cervical, Melanoma, Colon Surgical History H/O colonoscopy Status post cardiac surgery History of coronary artery stent placement History of carpal tunnel surgery of left wrist History of coronary artery stent placement (02/04/25) Social History household members: spouse housing: house Smoking Status: Current every day smoker tobacco type: cigarettes Tobacco: How many years used: 30 second hand exposure: No alcohol intake: never ROS Review of Systems ROS Unobtainable: due to endotracheal tube and other Physical Exam Narrative General: Sedated, intubated HEENT: Normocephalic, normal vision, normal EOM.? Neck: Normal JVD, no carotid Bruit, no thyromegaly , no lymphadenopathy.? Chest wall: Normal shape, non tender.? Cardiac: Normal rate and rhythm, no rubs, or gallops, there is 2/6 to 3/6 pansystolic murmur maximally noted on the apex Respiratory: Fine bibasilar rales Abdomen: Nondistended, nontender, no ascites or masses or organomegaly noted,? normal bowel sounds.? Extremities: Normal pulsations, no edema, normal strength and muscle mass.? Neurological: Gross CN examination is normal, Normal power in all extremities.?? Objective Data Vital Signs: Vital Signs Temp Pulse Resp BP Pulse Ox O2 Del Method O2 Flow Rate 98.8 F 94 18 120/54 L 93 Mechanical Ventilator 15 05/25/25 11:00 05/25/25 11:28 05/25/25 11:28 05/25/25 11:00 05/25/25 11:28 05/25/25 11:00 05/24/25 08:52 FiO2 40 05/25/25 11:28 Oxygen Flow Rate (L/min) 15 Oxygen Delivery Method Mechanical Ventilator Weight: 164 lb 0.383 oz Body Mass Index (BMI) 29.0 Intake & Output: Intake and Output for Last 24 Hours 05/23/25 05/24/25 05/25/25 23:59 23:59 23:59 Intake Total 3399.68 / 3457.58 801.93 / 801.93 Output Total 195 / 195 650 / 650 Balance 3204.68 / 3262.58 151.93 / 151.93 Lab / Micro Data 05/27/25 03:26 05/27/25 03:26 Labs: Laboratory Results - last 24 hr 05/24/25 08:54: Total Creatine Kinase 66, Triglycerides 102 05/24/25 14:45: Lactic Acid 1.5, Troponin T High Sens 296 H* D 05/24/25 18:35: Troponin T Hi Sens 4Hr 343 H* 05/25/25 02:58: WBC 15.0 H, RBC 2.90 L, Hgb 8.3 L, Hct 27.1 L, MCV 93.4, MCH 28.6, MCHC 30.6 L, RDW Std Deviation 57.5 H, RDW Coeff of Gerber 17.0 H, Plt Count 189, MPV 10.7, Immature Gran % (Auto) 0.500, Neut % (Auto) 94.6 H, Lymph % (Auto) 3.9 L, [place] % (Auto) 0.9, Eos % (Auto) 0.0, Baso % (Auto) 0.1, Absolute Neuts (auto) 14.2 H, Absolute Lymphs (auto) 0.59 L, Nucleated RBC % 0, Sodium 141, Potassium 4.3, Chloride 111 H, Carbon Dioxide 17.4 L, Anion Gap 12, BUN 24 H, Creatinine 1.04, Estim Creat Clear Calc 50.81, Est GFR (MDRD) Non-Af 59 L, B UN/Creatinine Ratio 23.0 H, Glucose 151 H, Calcium 8.5 Micro: Microbiology 05/24/25 13:30 Sputum, Tracheal Aspirate Gram Stain - Final 05/24/25 15:15 Urine Catheter - Henson Legionella Antigen - Final 05/24/25 15:15 Urine Catheter - Henson Streptococcus pneumoniae Antigen (M - Final 05/24/25 13:05 Mucosa - Nasopharyngeal Coronavirus COVID-19 PCR - Final 05/24/25 13:05 Mucosa - Nasopharyngeal Respiratory Panel (PCR) - Final ABG Data ABG results: ABG 05/24/25 05/25/25 14:31 05:31 Specimen Type ART ART Sample Site L Brach R Radial pH 7.25 L 7.27 L Bicarbonate Actual 20.1 L 21.0 L Total CO2 22 22 Base Excess -7 L -6 L O2 Saturation 93 L 90 L O2 % 60.0 35.0 ABG pCO2 46.2 H 45.3 H ABG pO2 77 67 L Kel Test N/A N/A Respiration Rate 18 18 O2 Delivery Device ET Tube Adult Vent Vent Mode AC AC Tidal Volume 350.0 350.0 POC PEEP 5 5 Cardiology Labs/Tests 05/24/25 08:54: Triglycerides 102 05/24/25 14:31: pH 7.25 L, Bicarbonate Actual 20.1 L, Base Excess -7 L, O2 Saturation 93 L, ABG pCO2 46.2 H, ABG pO2 77, Kel Test N/A 05/24/25 14:45: Lactic Acid 1.5 05/25/25 02:58: WBC 15.0 H, RBC 2.90 L, Hgb 8.3 L, Hct 27.1 L, MCV 93.4, MCH 28.6, MCHC 30.6 L, Plt Count 189, MPV 10.7, Immature Gran % (Auto) 0.500, Neut % (Auto) 94.6 H, Lymph % (Auto) 3.9 L, [place] % (Auto) 0.9, Eos % (Auto) 0.0, Baso % (Auto) 0.1, Absolute Neuts (auto) 14.2 H, Nucleated RBC % 0, Sodium 141, Potassium 4.3, Chloride 111 H, Carbon Dioxide 17.4 L, Anion Gap 12, BUN 24 H, Creatinine 1.04, Est GFR (MDRD) Non-Af 59 L, BUN/Creatinine Ratio 23.0 H, G lucose 151 H, Calcium 8.5 05/25/25 05:31: pH 7.27 L, Bicarbonate Actual 21.0 L, Base Excess -6 L, O2 Saturation 90 L, ABG pCO2 45.3 H, ABG pO2 67 L, Kel Test N/A Rhythm: EKG: ECHO: Stress Test: Cardiac Cath: PCI: CT Surgery: Holter monitor: EPS: PPM: CXR: Chest CT Scan: Radiography Diagnostic Testing: Radiology Impression Chest CTA 05/24/25 10:57 IMPRESSION: No evidence of pulmonary embolism. Small bilateral pleural effusions with consolidation in both lower lobes with superimposed CHF. Reading Location: [facility] Echocardiogram 05/24/25 13:25 Interpretation Summary Normal LV size. The left ventricular ejection fraction is 65 %. Mild segmental systolic dysfunction (see wall motion). Segmental dysfunction with preserved ejection fraction (see wall motion). Moderate papillary muscle dysfunction of the mitral valve. Moderately severe (3+) anteriorly directed mitral valve insufficiency. Ordering Physician: Estrella Hanna Referring Physician: Florin Bailey Performed By: Delmy Alfaro, RDSTEFANIA Chest X-Ray 05/24/25 13:30 IMPRESSION: The endotracheal tube, the right IJ catheter and orogastric tube are in good position. The lungs are unchanged. Reading Location: [facility] Chest X-Ray 05/25/25 03:54 IMPRESSION: Small bilateral effusions and adjacent airspace disease. Interval worsening aeration at the bases, particularly at the right base.. Reading Location: [facility] Documented by User: Dr. Alfredito Saucedo MD 05/27/25 09:33 Assessment & Plan Assessment/Plan (1) Acute hypoxic respiratory failure: (2) History of CHF (congestive heart failure): (3) Cardiac murmur: (4) CAD (coronary artery disease): QUALIFIERS: Associated angina: without angina Coronary Disease- Associated Artery/Lesion type: [place] artery [place] vs. transplanted heart: n ative heart Qualified Code(s): I25.10 - Atherosclerotic heart disease of [place] coronary artery without angina pectoris (5) Type 2 [place] (myocardial infarction): (6) COPD exacerbation: (7) Anemia: QUALIFIERS: Anemia type: iron deficiency Iron deficiency anemia type: chronic blood loss Qualified Code(s): D50.0 - Iron deficiency anemia secondary to blood loss (chronic) (8) Obstructive sleep apnea: HPI Consult Data Date of Consult: 05/27/25 [facility] Medical History Anemia GERD (gastroesophageal reflux disease) Smoker CPAP (continuous positive airway pressure) dependence Non-ST elevation [place] (NSTEMI) Hematuria UTI (urinary tract infection) Hyperlipidemia Atherosclerosis of coronary artery of [place] heart without angina pectoris Myocardial infarct Home Medications ?Medication ?Instructions ?Recorded ?Last Taken ?Type aspirin 81 mg tablet,delayed 81 mg PO DAILY@0800 [facility] 10/11/24 02/18/25 Rx release 90 days #90 tabs atorvastatin 40 mg tablet 40 mg PO QHS cholesterol 90 days 10/26/24 02/17/25 Rx #90 tabs metoprolol succinate 25 mg 25 mg PO DAILY heart 90 day s #90 10/26/24 02/21/25 Rx tablet,extended release 24 hr tabs (Toprol XL) albuterol sulfate 90 mcg/actuation 2 puff inhalation Q 4H PRN PRN 02/06/25 Unknown Rx aerosol inhaler (Ventolin HFA) Wheezing ##1 nitroglycerin 0.4 mg sublingual 0.4 mg sublingual Q5-1 5M PRN chest 02/07/25 Unknown Rx tablet pain #25 tabs pantoprazole 40 mg tablet,delayed 40 mg PO DAILY reflu x #90 tabs 02/22/25 Unknown Rx release (Protonix) clopidogrel 75 mg tablet 75 mg PO QDAY anti platelet #90 04/05/25 Unknown Rx tabs ondansetron 4 mg disintegrating 4 mg PO Q6H PRN PRN Na usea 04/30/25 Unknown History tablet polysaccharide iron complex 150 mg 150 mg PO QDAY anem ia 04/30/25 Unknown History iron capsule Allergy/AdvReac Type Severity Reaction Status Date / Time Penicillins Allergy Hives Verified 05/24/25 10:39 Sulfa (Sulfonamide AdvReac Diarrhea Verified 05/24/25 10:39 Antibiotics) Family History Father CAD (coronary artery disease) CABG age 68; CVA (cerebral vascular accident) Myocardial infarction Mother Cancer Cervical, Melanoma, Colon Surgical History H/O colonoscopy Status post cardiac surgery History of coronary artery stent placement History of carpal tunnel surgery of left wrist History of coronary artery stent placement (02/04/25) Social History household members: spouse housing: house Smoking Status: Current every day smoker tobacco type: cigarettes Tobacco: How many years used: 30 second hand exposure: No alcohol intake: never Risk Stratification Risk Stratification Applicable: No Lab / Micro Data 05/27/25 03:26 05/27/25 03:26
--- NOTE | 2025-05-25 13:05 | CASEMGMT ---
RN?CM?ASSESSMENT ? RN?CM?to room for initial transition planning/care coordination?assessment.?Pt is currently intubated. Son, Prince, @ bedside. RN?CM?introduced self and role at [facility].? Prince agreeable to answering questions and provided the following information. Care providers, pharmacy, and demographics verified/updated at this time. PCP: Dr Florin Bailey Specialists: JULIANA/cardiology, [facility], Dr Clakr-urology, Dr Huynh-GI, Dr Álvarez-oncology Preferred Pharmacy: [facility] Insurance: [facility] Prescription Benefit:?Yes LNOK: , [place]. 2 sons. One of them is Prince. Living Arrangements: Lives w/her in a one-story home w/basement, 3 steps to enter. Independent w/ADL's and IADL's @ baseline. Transportation:?Pt and both drive. DME: BP machine and CPAP HHC/SNF: No hx of either. ? PLAN:??TBD, pending pt's progress & course of treatment. ? Leopoldo BSN?RN?CM ? ?
--- NOTE | 2025-05-25 14:49 | EKG12_ITS ---
Test Reason : CHF Blood Pressure : */* mmHG Vent. Rate : 99 BPM Atrial Rate : 99 BPM P-R Int : 126 ms QRS Dur : 74 ms QT Int : 366 ms P-R-T Axes : 44 28 71 degrees QTcB Int : 469 ms Normal sinus rhythm Normal ECG No previous ECGs available Confirmed by MILEY WADSWORTH, RUTH ANN ([id number]), non linear editor GENIE COBIAN ([id number]) on 05/27/2025 8:43:42 AM Referred By: Confirmed By: RUTH ANN TRENT MD
[2025-05-25] MEDS: 0.9% Normal Saline (250mL Bag) 250 ML 15 ML IV (16:40)
--- NOTE | 2025-05-25 23:47 | NURSING ---
1899- pt fentanyl drip running at 100mcg/hr, 10mls/hr in pump as given in report per Valeria Cuenca RN. 1909- Upon doing titration, this RN noted that the fentanyl drip was charted to be running at 1ml/hr, 10mcg/hr. Pump verified w/ Consuelo Hernandes RN and drip changed to correct dosage in computer (100mcg/hr). 2324- fentanyl bag almost dry and needing changed, per DEC, it looks like this RN would be wasting 50+ cc of fentanyl but only 1cc of fent remaining in bag. Wasted w/ Consuelo Hernandes RN as witness and new bag hung.
[2025-05-26] VITALS (43 sets, daily range): BP systolic 93–121; BP diastolic 47–62; PULSE 66–93; RESP 18–20; TEMP 30–37.3; O2SAT 93–96; BMI 30.4
[2025-05-26 02:41] LABS: Vancomycin, Trough Level 14.3 ug/mL (5.0-15.0)
[2025-05-26] MEDS: Propofol 10MG/Ml 1,000 MG/100 ML Bottle 13.4 MG CONT INF (03:00)
[2025-05-26] MEDS: Vancomycin HCl 750 MG in 0.9% Normal Saline (250mL Bag) 250 ML 250 MG IV ×2 (03:05→14:01)
--- NOTE | 2025-05-26 03:08 | PHA.PHARE_ITS ---
Consult Antibiotic Management Pharmacy has been consulted to manage selected antibiotic: Vancomycin Type of Intervention Type of Consult: Follow-up Suspected Infection Suspected Infection: Sepsis Labs Labs: Sodium 141 mmol/L (133-145) 05/25/25 02:58 Potassium 4.3 mmol/L (3.3-5.1) 05/25/25 02:58 Chloride 111 mmol/L (98-108) H 05/25/25 02:58 Carbon Dioxide 17.4 mmol/L (21.0-32.0) L 05/25/25 02:58 Anion Gap 12 (5-15) 05/25/25 02:58 BUN 24 mg/dL (4-19) H 05/25/25 02:58 Creatinine 1.04 mg/dL (0.70-1.20) 05/25/25 02:58 Est GFR (MDRD) Non-Af 59 (>60) L 05/25/25 02:58 BUN/Creatinine Ratio 23.0 RATIO (10-20) H 05/25/25 02:58 Glucose 151 mg/dL (70-99) H 05/25/25 02:58 Vancomycin Trough 14.3 ug/mL (5.0-15.0) 05/26/25 01:50 Microbiology Microbiology: Microbiology 05/24/25 10:17 Urine, Clean Catch Urine Culture - Preliminary GNR lactose industrial relations specialist 05/24/25 13:30 Sputum, Tracheal Aspirate Gram Stain - Final 05/24/25 15:15 Urine Catheter - Henson Legionella Antigen - Final 05/24/25 15:15 Urine Catheter - Henson Streptococcus pneumoniae Antigen (M - Final 05/24/25 13:05 Mucosa - Nasopharyngeal Coronavirus COVID-19 PCR - Final 05/24/25 13:05 Mucosa - Nasopharyngeal Respiratory Panel (PCR) - Final Dosing Weight Weight used for dosin.4 kg Estimated Creatinine Clearance Estimated Creatinine Clearance: 51 Goal Trough Goal Trough: 15-20 mcg/mL Pharmacy Plan for Drug Dosing Pharmacy Plan for Drug Dosing: Vancomycin trough level of 14.3, drawn 11.5hrs post-dose, was below the target range of 15-20. Will increase dose to 750mg q12h, and will draw another trough level prior to fourth dose of the new regimen. Pharmacy Service will continue to monitor and adjust dosing as required. Follow-Up Labs Follow-Up Labs: Trough: Vancomycin Date/Time Labs Ordered Labs to be done on [date and time ordered]: 05/27/25 @1445
[2025-05-26 04:22] LABS: Hematocrit 26.7 % (37-47); Hemoglobin 7.9 g/dL (12.0-15.0); Immature Granulocytes Count 0.210 X10^3/uL (0.0-0.0); Mean Corp Hgb Conc 29.6 g/dL (32-36); Mean Corpuscular Volume 93.4 fL (81-99); Mean Platelet Vol. 10.0 fl (6.2-12.0); NRBC Flagged by Analyzer 0.1 % (0-5); POSITIVE DIFFERENTIAL YES; Platelet Count 222 K/mm3 (150-450); RBC Distribution Width CV 17.2 % (11.6-14.6); RBC Distribution Width SD 58.7 fl (35.1-43.9); Red Blood Count 2.86 M/mm3 (4.2-5.4); White Blood Count 21.1 K/mm3 (4.4-11.0)
[2025-05-26 04:48] LABS: Anion Gap 11 (5-15); BUN 30 mg/dL (4-19); BUN/Creat Ratio 25.3 RATIO (10-20); Calcium,Total 8.6 mg/dL (7.6-11.0); Carbon Dioxide 20.9 mmol/L (21.0-32.0); Chloride 110 mmol/L (98-108); Estimated Creatinine Clearance 45.31 ml/min (50-250); Glucose 159 mg/dL (70-99); Potassium 4.1 mmol/L (3.3-5.1)
[2025-05-26] MEDS: 0.9% Saline Lock 10 ML Syringe IV ×2 (05:11→23:27)
[2025-05-26 05:39] LABS: Differential Indicated SCAN CRITERIA MET
[2025-05-26 06:09] LABS: Differential Comment SCANNED
[2025-05-26] MEDS: fentaNYL drip 100 ML 10 MCG CONT INF ×2 (08:23→17:56)
[2025-05-26] MEDS: Propofol 10MG/Ml 1,000 MG/100 ML Bottle 14 MG CONT INF ×2 (08:28→13:38)
[2025-05-26] MEDS: Chlorhexidine 15 ML PO ×2 (08:29→21:12)
[2025-05-26] MEDS: Pantoprazole Sodium 40 MG in 0.9% Normal Saline (100mL MB+) 100 ML 300 MG IV (09:09)
--- NOTE | 2025-05-26 09:10 | PN_ITS ---
Subjective Subjective Patient seen and examiend. She remains intubated and sedated, though she is waking up some more today. RASS score is +1 today. Unable to do review of systems. Objective Data Objective Data Vital Signs: Vital Signs Temp Pulse Resp BP Pulse Ox O2 Del Method O2 Flow Rate 97.9 F 93 20 H 104/55 L 94 Mechanical Ventilator 15 05/26/25 08:00 05/26/25 09:03 05/26/25 09:03 05/26/25 08:00 05/26/25 09:03 05/26/25 08:00 05/24/25 08:52 FiO2 40 05/26/25 09:03 Oxygen Flow Rate (L/min) 15 Oxygen Delivery Method Mechanical Ventilator Weight: 171 lb 8.314 oz Body Mass Index (BMI) 30.4 Intake & Output: Intake and Output for Last 24 Hours 05/24/25 05/25/25 05/26/25 23:59 23:59 23:59 Intake Total 3399.68 / 3457.58 1748.91 / 1783.61 742.96 / 742.96 Output Total 195 / 195 2950 / 2950 650 / 650 Balance 3204.68 / 3262.58 -1201.09 / -1166.39 92.96 / 92.96 Lab / Micro Data 05/26/25 04:16 05/26/25 04:16 Labs: Laboratory Results - last 24 hr 05/26/25 01:50: Vancomycin Trough 14.3 05/26/25 04:16: WBC 21.1 H, RBC 2.86 L, Hgb 7.9 L, Hct 26.7 L, MCV 93.4, MCH 27.6, MCHC 29.6 L, RDW Std Deviation 58.7 H, RDW Coeff of Gerber 17.2 H, Plt Count 222, MPV 10.0, Immature Gran % (Auto) 1.000 H, Neut % (Auto) 95.1 H, Lymph % (Auto) 2.4 L, [place] % (Auto) 1.4, Eos % (Auto) 0.0, Baso % (Auto) 0.1, Absolute Neuts (auto) 20.0 H, Absolute Lymphs (auto) 0.50 L, Nucleated RBC % 0.1, Differential Comment SCANNED, Sodium 143, Potassium 4.1, Chloride 110 H, Carbon Dioxide 20.9 L, Anion Gap 11, BUN 30 H, Creatinine 1.19, Estim Creat Clear Calc 45.31 L, Est GFR (MDRD) Non-Af 50 L, BUN/Creatinine Ratio 25.3 H, Glucose 159 H, Calcium 8.6 Micro: Microbiology 05/24/25 09:06 Blood Culture (Wb) - Anticubital Left Blood Culture - Preliminary No growth in 48 hours. 05/24/25 09:04 Blood Culture (Wb) - Anticubital Right Blood Culture - Preliminary No growth in 48 hours. 05/24/25 10:17 Urine, Clean Catch Urine Culture - Preliminary GNR lactose design engineering specialist 05/24/25 13:30 Sputum, Tracheal Aspirate Gram Stain - Final 05/24/25 15:15 Urine Catheter - Henson Legionella Antigen - Final 05/24/25 15:15 Urine Catheter - Henson Streptococcus pneumoniae Antigen (M - Final 05/24/25 13:05 Mucosa - Nasopharyngeal Coronavirus COVID-19 PCR - Final 05/24/25 13:05 Mucosa - Nasopharyngeal Respiratory Panel (PCR) - Final Physical Exam Const Constitutional Narrative: intubated, RASS score is +1. Orientation / Consciousness: lethargic HEENT normocephalic Eyes EOMs intact bilaterally Neck supple Lymph Lymphatic: no lymphadenopathy noted Resp Resp Narrative: Diminished breath sounds bibasilarly. Tachypneic. Intubated and on the ventilator. Cardio S1 normal heart sound, S2 normal heart sound and no murmurs Cardio Narrative: tachycardic GI normal to inspection, nondistended, normoactive bowel sounds, soft to palpation and non-tender Extremity normal to inspection, normal capillary refill and no clubbing, cyanosis or edema General Extremity: no tenderness to palpation of joints or extremities Skin General Skin Exam: no breakdown Neuro Neuro Narrative: intubated, sedated. RASS score is +1 Assessment & Plan Assessment/Plan (1) History of CHF (congestive heart failure): (2) Acute hypoxic respiratory failure: PLAN: Plan #Acute hypoxic respiratory failure * Etiology seems to be multifactorial. She was admitted with a complaint of acute sudden onset shortness of breath today in the early hours. She was seen in the ED yesterday on account of anemia and transfused with 1 unit of packed red blood cells. If it is trolley or tackle him thinking that his symptoms would have presented much earlier so these are lower on my list of differentials. * She does have a history of smoking so COPD flareup is a possibility. It is unclear whether she has a history of heart failure as family could not really tell. * CTA of the chest done was negative for PE but did show small bilateral pleural effusions with consolidations in both lower lobes with superimposed CHF * remains on levophed. On iV vancomycin and meropenem * critical care on board * blood and urine cultures pending * RASS score is +1 * also on IV solumedrol * Blood cultures and urine cultures obtained. * Breathing treatments with bronchodilators. * Will hold off on diuretics for now due to shock. * wbc is up to 21, from 15 yesterday * #Septic shock * Likely due to bilateral pneumonia as above. * On IV vancomycin and meropenem as above. * Critical care on board. remains on levophed, titrate for MAP >65. * #Lactic acidosis: * likely due to septic shock and hypoxia. * resolved #Nonstemi * patient's troponin markedly elevated with initial troponin of 296. Trended up to 343 * EKG showed no acute st changes. * this may be a type 2 nonstemi due to demand ischemia. WIll cycle troponins and 2D echo also ordered. * 2D echo from 01/2025 showed EF of 65% with no evidence of diastolic dysfunction and no regional wall motion abnormalities noted; 2+ mitral valve insufficiency * 2D echo showed EF of 65% with mild segmental systolic dysfunction and moderately severe 3+ mitral valve insufficiency, with pulmonary artery systolic pressure of 54mmHg. * cardiology on board and recommends startging low dose CT inhibitor/ARBs/low dose entresto if BP allows once patient is off pressors, in addition to a beta brandy for severe mitral regurgitation. Once stable she will require cardiac cath and PAULINE for further evaluation. * #History of CAD s/p stents: on aspirin, plavix and statin. Hold metoprolol due to septic shock. #History of nicotine dependence: smokes a pack daily. Nicotine patch prn DVT prophylaxis: lovenox Code status * full code Charges/Coding Visit Charges Inpatient E&M: 95676 Subs Hosp L3
[2025-05-26] MEDS: Meropenem 1 GM in 0.9% Normal Saline (100mL MB+) 100 ML IV ×2 (09:55→21:13)
--- NOTE | 2025-05-26 12:01 | PCM.PN.CARD ---
Documented by User: Dr. Jihan Mcclain MD 05/26/25 16:38 Subjective Subjective Still sedated, intubated She is better on active diuresis, will plan to wean off sedation and wean off pressors, will plan for possible transfer to [facility], leucocytosis is secondary to IV steroids, we recommned to wean it off. Objective Data Vital Signs: Vital Signs Temp Pulse Resp BP Pulse Ox O2 Del Method O2 Flow Rate 89.6 F L 78 18 113/62 96 Mechanical Ventilator 15 05/26/25 11:00 05/26/25 11:11 05/26/25 11:11 05/26/25 11:30 05/26/25 11:11 05/26/25 11:00 05/24/25 08:52 FiO2 40 05/26/25 11:11 Oxygen Flow Rate (L/min) 15 Oxygen Delivery Method Mechanical Ventilator Weight: 171 lb 8.314 oz Body Mass Index (BMI) 30.4 Intake & Output: Intake and Output for Last 24 Hours 05/24/25 05/25/25 05/26/25 23:59 23:59 23:59 Intake Total 3399.68 / 3457.58 1812.57 / 1847.27 1185.15 / 1185.15 Output Total 195 / 195 2950 / 2950 1400 / 1400 Balance 3204.68 / 3262.58 -1137.43 / -1102.73 -214.85 / -214.85 Lab / Micro Data 05/27/25 03:26 05/27/25 03:26 Labs: Laboratory Results - last 24 hr 05/26/25 01:50: Vancomycin Trough 14.3 05/26/25 04:16: WBC 21.1 H, RBC 2.86 L, Hgb 7.9 L, Hct 26.7 L, MCV 93.4, MCH 27.6, MCHC 29.6 L, RDW Std Deviation 58.7 H, RDW Coeff of Gerber 17.2 H, Plt Count 222, MPV 10.0, Immature Gran % (Auto) 1.000 H, Neut % (Auto) 95.1 H, Lymph % (Auto) 2.4 L, [place] % (Auto) 1.4, Eos % (Auto) 0.0, Baso % (Auto) 0.1, Absolute Neuts (auto) 20.0 H, Absolute Lymphs (auto) 0.50 L, Nucleated RBC % 0.1, Differential Comment SCANNED, Sodium 143, Potassium 4.1, Chloride 110 H, Carbon Dioxide 20.9 L, Anion Gap 11, BUN 30 H, Creatinine 1.19, Estim Creat Clear Calc 45.31 L, Est GFR (MDRD) Non-Af 50 L, BUN/Creatinine Ratio 25.3 H, Glucose 159 H, Calcium 8.6 Micro: Microbiology 05/24/25 09:06 Blood Culture (Wb) - Anticubital Left Blood Culture - Preliminary No growth in 48 hours. 05/24/25 09:04 Blood Culture (Wb) - Anticubital Right Blood Culture - Preliminary No growth in 48 hours. 05/24/25 10:17 Urine, Clean Catch Urine Culture - Preliminary GNR lactose environmental aide Cardiology Labs/Tests 05/26/25 04:16: WBC 21.1 H, RBC 2.86 L, Hgb 7.9 L, Hct 26.7 L, MCV 93.4, MCH 27.6, MCHC 29.6 L, Plt Count 222, MPV 10.0, Immature Gran % (Auto) 1.000 H, Neut % (Auto) 95.1 H, Lymph % (Auto) 2.4 L, [place] % (Auto) 1.4, Eos % (Auto) 0.0, Baso % (Auto) 0.1, Absolute Neuts (auto) 20.0 H, Nucleated RBC % 0.1, Sodium 143, Potassium 4.1, Chloride 110 H, Carbon Dioxide 20.9 L, Anion Gap 11, BUN 30 H, Creatinine 1.19, Est GFR (MDRD) Non-Af 50 L, BUN/Creatinine Ratio 25.3 H, Glucose 159 H, Calcium 8.6 Rhythm: EKG: ECHO: Stress Test: Cardiac Cath: PCI: CT Surgery: Holter monitor: EPS: PPM: CXR: Chest CT Scan: Physical Exam Narrative General: Sedated, intubated HEENT: Normocephalic, normal vision, normal EOM.? Neck: Normal JVD, no carotid Bruit, no thyromegaly , no lymphadenopathy.? Chest wall: Normal shape, non tender.? Cardiac: Normal rate and rhythm, no rubs, or gallops, there is 2/6 to 3/6 pansystolic murmur maximally noted on the apex Respiratory: Fine bibasilar rales Abdomen: Nondistended, nontender, no ascites or masses or organomegaly noted,? normal bowel sounds.? Extremities: Normal pulsations, no edema, normal strength and muscle mass.? Neurological: Gross CN examination is normal, Normal power in all extremities.? Assessment & Plan Assessment/Plan (1) History of CHF (congestive heart failure): PLAN: Plan Assessment & Plan Assessment/Plan (1) Acute hypoxic respiratory failure: (2) History of CHF (congestive heart failure): (3) Cardiac murmur: (4) CAD (coronary artery disease): QUALIFIERS: Associated angina: without angina Coronary Disease-Associated Artery/Lesion type: iroquois artery [place] vs. transplanted heart: iroquois heart Qualified Code(s): I25.10 - Atherosclerotic heart disease of iroquois coronary artery without angina pectoris (5) Type 2 LA (myocardial infarction): (6) COPD exacerbation: (7) Anemia: QUALIFIERS: Anemia type: iron deficiency Iron deficiency anemia type: chronic blood loss Qualified Code(s): D50.0 - Iron deficiency anemia secondary to blood loss (chronic) (8) Obstructive sleep apnea: PLAN: Plan Acute respiratory failure s/p intubation CHF exacerbation likely secondary to severe MR Moderate to severe MR likely contributing to CHF exacerbation with pulmonary edema leading to acute respiratory failure on top of underlying COPD and chronic anemia - IV fluids restriction, - Continue IV diuresis 40 IV twice daily since the patient on pressors, monitor urine output, close monitoring of fluid input and output, daily weight, - Monitor kidney function electrolytes keep potassium above 4 and mag above 2, - Once the patient is off pressors we will start low-dose CT inhibitor/ARB's/low-dose Entresto if blood pressure allows in addition to beta-brandy for goal-directed medical therapy for severe mitral regurgitation. - Once stable the patient will require cardiac catheterization and PAULINE for further evaluation of mitral regurgitation. - Will consider transfer to [facility] for further workup there. Coronary disease Troponin elevation - Patient with history of coronary disease s/p PCI to LCX 02/05/25, pTCA to D1, known moderate disease in RCA. - Start aspirin, Plavix (will reload and start 75 mg p.o. daily afterwards )and statins. - ECG showed NSR with PVCs - Echo showed wall motion abnormalities suggestive of ischemia in the left circumflex territory likely leading to papillary muscle dysfunction leading to mitral regurgitation. - Start home dose of BB once hemodynamically stable. - Will arrange for cardiac cath once hemodynamically stable. - Troponin elevation is likely demand ischemia given underlying CHF. Anemia - Maintain hemoglobin above 8 g/dL - Treat underlying cause - Do not stop DAPT COPD -Treat as per primary team and emergency management coordinator recommendation Documented by User: Dr. Alfredito Saucedo MD 05/27/25 11:03 Lab / Micro Data 05/27/25 03:26 05/27/25 03:26 Assessment & Plan Assessment/Plan (1) History of CHF (congestive heart failure): PLAN: (1) Acute hypoxic respiratory failure: (2) History of CHF (congestive heart failure): (3) Cardiac murmur: (4) CAD (coronary artery disease): QUALIFIERS: Associated angina: without angina Coronary Disease-Associated Artery/Lesion type: iroquois artery [place] vs. transplanted heart: iroquois heart Qualified Code(s): I25.10 - Atherosclerotic heart disease of iroquois coronary artery without angina pectoris (5) Type 2 LA (myocardial infarction): (6) COPD exacerbation: (7) Anemia: QUALIFIERS: Anemia type: iron deficiency Iron deficiency anemia type: chronic blood loss Qualified Code(s): D50.0 - Iron deficiency anemia secondary to blood loss (chronic) (8) Obstructive sleep apnea: PLAN: Plan Acute respiratory failure s/p intubation CHF exacerbation likely secondary to severe MR Moderate to severe MR likely contributing to CHF exacerbation with pulmonary edema leading to acute respiratory failure on top of underlying COPD and chronic anemia - IV fluids restriction, - Continue IV diuresis 40 IV twice daily since the patient on pressors, monitor urine output, close monitoring of fluid input and output, daily weight, - Monitor kidney function electrolytes keep potassium above 4 and mag above 2, - Once the patient is off pressors we will start low-dose CT inhibitor/ARB's/low-dose Entresto if blood pressure allows in addition to beta-brandy for goal-directed medical therapy for severe mitral regurgitation. - Once stable the patient will require cardiac catheterization and PAULINE for further evaluation of mitral regurgitation. - Will consider transfer to [facility] for further workup there. Coronary disease Troponin elevation - Patient with history of coronary disease s/p PCI to LCX 02/05/25, pTCA to D1, known moderate disease in RCA. - Start aspirin, Plavix (will reload and start 75 mg p.o. daily afterwards )and statins. - ECG showed NSR with PVCs - Echo showed wall motion abnormalities suggestive of ischemia in the left circumflex territory likely leading to papillary muscle dysfunction leading to mitral regurgitation. - Start home dose of BB once hemodynamically stable. - Will arrange for cardiac cath once hemodynamically stable. - Troponin elevation is likely demand ischemia given underlying CHF.
--- NOTE | 2025-05-26 12:49 | PN.CC_ITS ---
Objective Data Objective Data Vital Signs: Vital Signs Last response 3 Temperature 37.0 C 05/26/25 12:00 Temperature Source Core 05/26/25 12:00 Pulse Rate 82 05/26/25 12:00 Pulse Strength Weak (1+) 05/26/25 08:10 Respiratory Rate 18 05/26/25 12:00 Respiratory Effort Mechanically Ventilated 05/26/25 12:00 Respiratory Depth Normal 05/26/25 12:00 Respiratory Pattern Normal 05/26/25 12:00 Blood Pressure 114/52 L 05/26/25 12:00 Blood Pressure Mean 72 05/26/25 12:00 Blood Pressure Source Monitor 05/26/25 12:00 Blood Pressure Position Semi-Fowlers 05/26/25 07:00 Blood Pressure Location Left Arm 05/26/25 07:00 Pulse Ox 95 05/26/25 12:00 Oxygen Delivery Method Mechanical Ventilator 05/26/25 12:00 Oxygen Flow Rate (L/min) 15 05/24/25 08:52 Fraction of Inspired Oxygen (FIO2) 40 05/26/25 12:00 I&O: I&O Last 24 Hours 3 05/25/25 05/26/25 05/26/25 23:59 11:59 23:59 Intake Total 1010.64 / 1847.27 1187.50 / 1338.85 151.35 / 1338.85 Output Total 2300 / 2950 1400 / 1400 Balance -1289.36 / -1102.73 -212.50 / -61.15 151.35 / -61.15 I&O: Total Stay 3 05/24/25 08:51 thru 05/26/25 12:00 Intake Total 6551.10 Output Total 4545 Balance 2006.10 Current Meds Ordered / Administered: Current meds ordered / Administered 3 Generic Name Dose Route Start Last Admin Trade Name Freq PRN Reason Stop Dose Admin Acetaminophen 650 mg 05/24/25 13:25 Acetaminophen 325 Mg Tablet PO Q6H PRN PRN Pain 1-10 Or Fever >100.7 Albuterol/Ipratropium 3 ml 05/24/25 13:00 05/26/25 11:10 Ipratropium/Albuterol Sulfate 3 Ml Ampul.Neb INHALATION 3 ml Q4HWA.RT GABO Administration Aspirin 81 mg 05/25/25 14:50 05/26/25 07:37 Aspirin 81 Mg Tab.Chew GT 81 mg BREAKFAST GABO Administration Atorvastatin Calcium 40 mg 05/25/25 22:00 05/25/25 20:35 Atorvastatin Calcium 40 Mg Tablet GT 40 mg QHS GABO Administration Chlorhexidine Gluconate 15 ml 05/24/25 22:45 05/26/25 08:29 Chlorhexidine 15 Ml PO 15 ml BID GABO Administration Chlorhexidine Gluconate 1 each 05/24/25 22:45 05/25/25 23:25 Chlorhexidine Gluc 2% Cloth 1 Each [place] TOPICAL 1 each DAILY GABO Administration Clopidogrel Bisulfate 75 mg 05/26/25 10:00 05/26/25 07:37 Clopidogrel Bisulfate 75 Mg Tablet GT 75 mg DAILY GABO Administration Enoxaparin Sodium 40 mg 05/24/25 13:15 05/26/25 09:23 Enoxaparin 40 Mg/0.4 Ml Syringe SC 40 mg DAILY GABO Administration Furosemide 40 mg 05/25/25 12:30 05/26/25 09:23 Furosemide 40 Mg/4 Ml Vial IV 40 mg BIDLX GABO Administration Protocol Propofol 1,000 mg in 100 mls @ 4.668 mls/hr 05/24/25 09:55 05/26/25 12:00 Diprivan CONT INF 30 mcg/kg/min .Q12H GABO 14 mls/hr Titration Protocol 10 MCG/KG/MIN Fentanyl 100 mls @ 10 mls/hr 05/24/25 10:55 05/26/25 12:00 CONT INF 100 mcg/hr UD GABO 10 mls/hr Titration Protocol 100 MCG/HR Norepinephrine Bitartrate 8 mg 250 mls @ 9.375 mls/hr 05/24/25 11:50 05/26/25 12:00 / Sodium Chloride CONT INF 5 mcg/min .[id number] GABO 9.4 mls/hr Titration Protocol 5 MCG/MIN Meropenem 1 gm/ Sodium 100 mls @ 33 mls/hr 05/24/25 14:00 05/26/25 09:55 Chloride IV 33 mls/hr Q12 GABO Administration Vancomycin IV-PHARMACY TO DOSE 500 mls @ 250 mls/hr 05/24/25 13:00 1 each/ Sodium Chloride IV X1 PRN Rx to Dose Protocol Pantoprazole Sodium 40 mg/ 100 mls @ 300 mls/hr 05/24/25 13:10 08/03/25 09:39 Sodium Chloride IV Infused Q24 GABO Infusion Sodium Chloride 250 mls @ 15 mls/hr 05/24/25 16:18 05/26/25 10:00 IV Infused .[id number] PRN Infusion Saline Flush Sodium Chloride 250 mls @ 15 mls/hr 05/24/25 16:18 IV .[id number] PRN Additional IVPB Infusion Vancomycin HCl 750 mg/ Sodium 265 mls @ 250 mls/hr 05/26/25 03:00 05/26/25 04:09 Chloride IV Infused Q12H GABO Infusion Methylprednisolone Sodium Succinate 40 mg 05/24/25 18:00 05/26/25 12:32 Methylprednisolone Sod Succ 40 Mg/Ml Vial IV 40 mg Q6 GABO Administration Nitroglycerin 0.4 mg 05/24/25 13:25 Nitroglycerin (Inpatient Use) 0.4 Mg Tab.Subl SL Q5M PRN CARDIAC/CHEST PAIN Ondansetron HCl 4 mg 05/24/25 13:25 Ondansetron 4 Mg/2 Ml Vial IV Q8H PRN PRN NAUSEA/VOMITING Sodium Chloride 10 - 40 ml 05/24/25 16:18 05/26/25 05:11 0.9% Saline Lock 10 Ml Syringe IV 30 ml UD PRN Administration SALINE FLUSH Vancomycin Protocol 1 lab 05/27/25 13:30 Vancomycin Trough/Random Due MC 05/27/25 15:30 DAILY COUNT INCLUDES THE [facility] Lab / Micro Data Attestation: I reviewed the patient's lab results. 05/26/25 04:16 05/26/25 04:16 Labs: Laboratory Results - last 24 hr 05/26/25 01:50: Vancomycin Trough 14.3 05/26/25 04:16: WBC 21.1 H, RBC 2.86 L, Hgb 7.9 L, Hct 26.7 L, MCV 93.4, MCH 27.6, MCHC 29.6 L, RDW Std Deviation 58.7 H, RDW Coeff of Gerber 17.2 H, Plt Count 222, MPV 10.0, Immature Gran % (Auto) 1.000 H, Neut % (Auto) 95.1 H, Lymph % (Auto) 2.4 L, [place] % (Auto) 1.4, Eos % (Auto) 0.0, Baso % (Auto) 0.1, Absolute Neuts (auto) 20.0 H, Absolute Lymphs (auto) 0.50 L, Nucleated RBC % 0.1, Differential Comment SCANNED, Sodium 143, Potassium 4.1, Chloride 110 H, Carbon Dioxide 20.9 L, Anion Gap 11, BUN 30 H, Creatinine 1.19, Estim Creat Clear Calc 45.31 L, Est GFR (MDRD) Non-Af 50 L, BUN/Creatinine Ratio 25.3 H, Glucose 159 H, Calcium 8.6 Micro: Microbiology 05/24/25 10:17 Urine, Clean Catch Urine Culture - Final GNR lactose executive account manager 05/24/25 09:06 Blood Culture (Wb) - Anticubital Left Blood Culture - Preliminary No growth in 48 hours. 05/24/25 09:04 Blood Culture (Wb) - Anticubital Right Blood Culture - Preliminary No growth in 48 hours. ABG Data Attestation: I personally reviewed and interpreted this ABG as follows: Assessment and Plan . Assessment and plan: :25 Assessment and Plan Assessment & PlanAssessment/Plan IMPRESSIONS: 1. Acute hypoxemic and hypercapnic respiratory failure; clinical concern for AECOPD contributing with blood gases revealing mixed disturbance with both primary metabolic acidosis as well as acute on chronic respiratory acidosis. Blood gases reviewed; vent adjustments made as 2. Septic shock, on pressors, LA has cleared. Following culture resuls 3. History of recurrent anemia of unclear etiology, s/p outpatient ransfusion 1 PRBC arian TIP INSERTER, Continue to monitor blood counts and transfuse if hemoglobin drops below 7 g/dL. Continue PPI therapy as ordered. 4. History of tobacco dependency/obstructive sleep apnea/history of coronary artery disease status post PCI; Complicates care, management, recovery and prognosis. Continue supportive measures as noted above. RECOMMENDATIONS: 1. can look at starting SAT/ SBT 2. monitor secretions, could potentially impact extubation timing if they evolve unfavorably 3. same Abx for now 1. Critical Care Time: 50 minutes The entirety of this encounter was done via Telemedicine Physical Exam Const General Appearance: intubated and patient mechanically ventilated Orientation / Consciousness: awake HEENT normocephalic and external ears normal Eyes PERRL Neck full ROM Chest inspection of chest normal Resp Effort and Inspection: audible wheezes, prolonged expiratory phase and mechanically ventilated Cardio regular rate Subjective Subjective Less restless, intermittently following commands per nursing. Secretions are markedly increased today.
[2025-05-26] MEDS: Norepinephrine 8 MG in 0.9% Normal Saline (250mL Bag) 242 ML 9.4 MG CONT INF (15:05)
[2025-05-26] MEDS: TITRATION PARAMETER CHANGE 1 EACH IV ×2 (15:08→18:20)
[2025-05-26] MEDS: Propofol 10MG/Ml 1,000 MG/100 ML Bottle 9.3 MG CONT INF (23:26)
[2025-05-27] VITALS (56 sets, daily range): BP systolic 88–122; BP diastolic 43–77; PULSE 60–93; RESP 17–20; TEMP 36.6–37.1; O2SAT 92–97; BMI 28.0
[2025-05-27] MEDS: Vancomycin HCl 750 MG in 0.9% Normal Saline (250mL Bag) 250 ML 250 MG IV ×2 (03:19→17:28)
[2025-05-27] MEDS: fentaNYL drip 100 ML 10 MCG CONT INF ×2 (03:20→13:59)
[2025-05-27 03:32] LABS: Hematocrit 26.1 % (37-47); Hemoglobin 7.9 g/dL (12.0-15.0); Immature Granulocytes Count 0.250 X10^3/uL (0.0-0.0); Mean Corp Hgb Conc 30.3 g/dL (32-36); Mean Corpuscular Volume 92.6 fL (81-99); Mean Platelet Vol. 10.1 fl (6.2-12.0); NRBC Flagged by Analyzer 0.1 % (0-5); POSITIVE DIFFERENTIAL YES; Platelet Count 186 K/mm3 (150-450); RBC Distribution Width CV 17.3 % (11.6-14.6); RBC Distribution Width SD 58.8 fl (35.1-43.9); Red Blood Count 2.82 M/mm3 (4.2-5.4); White Blood Count 16.6 K/mm3 (4.4-11.0)
[2025-05-27 04:48] LABS: Anion Gap 12 (5-15); BUN 37 mg/dL (4-19); BUN/Creat Ratio 35.0 RATIO (10-20); Calcium,Total 8.9 mg/dL (7.6-11.0); Carbon Dioxide 23.4 mmol/L (21.0-32.0); Chloride 109 mmol/L (98-108); Estimated Creatinine Clearance 51.35 ml/min (50-250); Glucose 132 mg/dL (70-99); Potassium 3.8 mmol/L (3.3-5.1)
--- NOTE | 2025-05-27 06:31 | PCM.PN.INT ---
Assessment & Plan Assessment/Plan (1) Acute hypoxic respiratory failure: PLAN: Plan RECOMMENDATIONS: 1. Continue assist-control mode mechanical ventilation. Wean FiO2 and PEEP to maintain saturations at or above 90%. 2. Continue to wean Levophed to maintain mean arterial pressure at or about 65 mmHg. 3. Transition from propofol to Precedex for sedation purposes. Continue fentanyl for pain control. 4. Okay to initiate tube feeding today for nutritional support. 5. Continue antimicrobial therapy. 6. Continue bronchodilators and steroids. 7. Continue appropriate ICU prophylaxis. IMPRESSIONS: 1. Acute hypoxemic and hypercapnic respiratory failure Clinical concern for underlying COPD exacerbation related to pneumonia. The patient does have suspected COPD based upon an extensive tobacco abuse history, but has not completed pulmonary function studies yet. Plan to continue current supportive measures. The patient will be maintained on assist-control mode of mechanical ventilation with a goal to wean FiO2 to maintain saturations at or above 90%. Empiric antibiotics will be continued to complete 7 days of therapy. The patient will be maintained on scheduled bronchodilators and steroids. In addition, she will be transition from propofol to Precedex to help facilitate weaning from invasive mechanical ventilatory support. Plan to reattempt spontaneous awakening and breathing trial again tomorrow morning. In the interim, okay to initiate tube feeding today for nutritional support. 2. Septic shock The patient presented to the hospital with sepsis due to possible pneumonia with acute sepsis related organ dysfunction as evidenced by respiratory failure requiring invasive mechanical ventilatory support and lactic acidemia. Continue supportive care including antimicrobials and vasopressor support to maintain a mean arterial pressure at or above 65 mmHg. 3. History of recurrent anemia of unclear etiology Continue to monitor blood counts and transfuse if hemoglobin drops below 7 g/dL. Continue PPI therapy as ordered. 4. History of tobacco dependency/obstructive sleep apnea/history of coronary artery disease status post PCI Complicates care, management, recovery and prognosis. Continue supportive measures as noted above. Cardiology following to assist with medical management and timing for any additional intervention and workup. CODE STATUS: Full code TIME: 34 minutes of critical care time, independent of procedures, was spent addressing the patient's acute hypoxemic and hypercapnic respiratory failure, septic shock, review of all data and collaboration with the care team. Subjective Subjective The patient was seen and examined at the bedside this morning. Events from the last 24 hours have been reviewed. The patient is currently afebrile and maintaining appropriate oxygen saturations on assist-control mode mechanical ventilation with an FiO2 requirement of 40%. The patient continues to require Levophed at 2 mcg/min to maintain hemodynamic stability. Unfortunately, the patient failed her spontaneous awakening trial this morning. She remains appropriately sedated on propofol and fentanyl. White blood cell count is elevated at 16,000 with a hemoglobin of 7.9 g/dL and platelet count of 186,000. Creatinine is within normal limits. Objective Data Objective Data The patient's most recent lab work, culture data and imaging studies have all been personally reviewed. Surface echocardiogram demonstrated normal LV size and function with an ejection fraction of 65%. Vital Signs: Vital Signs Temp Pulse Resp BP Pulse Ox O2 Del Method O2 Flow Rate 98.3 F 65 18 113/57 L 97 Mechanical Ventilator 15 05/27/25 06:00 05/27/25 06:00 05/27/25 06:00 05/27/25 06:00 05/27/25 06:00 05/27/25 06:00 05/24/25 08:52 FiO2 40 05/27/25 06:00 Oxygen Flow Rate (L/min) 15 Oxygen Delivery Method Mechanical Ventilator Weight: 158 lb 11.725 oz Body Mass Index (BMI) 28.0 Intake & Output: Intake and Output for Last 24 Hours 05/25/25 05/26/25 05/27/25 23:59 23:59 23:59 Intake Total 1812.57 / 1847.27 2062.30 / 2081.37 521.73 / 521.73 Output Total 2950 / 2950 3175 / 3175 650 / 650 Balance -1137.43 / -1102.73 -1112.70 / -1093.63 -128.27 / -128.27 Lab / Micro Data Attestation: I reviewed the patient's lab results. 05/27/25 03:26 05/27/25 03:26 Labs: Laboratory Results - last 24 hr 05/27/25 03:26: WBC 16.6 H, RBC 2.82 L, Hgb 7.9 L, Hct 26.1 L, MCV 92.6, MCH 28.0, MCHC 30.3 L, RDW Std Deviation 58.8 H, RDW Coeff of Gerber 17.3 H, Plt Count 186, MPV 10.1, Immature Gran % (Auto) 1.500 H, Neut % (Auto) 94.8 H, Lymph % (Auto) 2.7 L, [place] % (Auto) 0.9, Eos % (Auto) 0.0, Baso % (Auto) 0.1, Absolute Neuts (auto) 15.7 H, Absolute Lymphs (auto) 0.44 L, Nucleated RBC % 0.1, Sodium 145, Potassium 3.8, Chloride 109 H, Carbon Dioxide 23.4, Anion Gap 12, BUN 37 H, Creatinine 1.05, Estim Creat Clear Calc 51.35, Est GFR (MDRD) Non-Af 58 L, BUN/Creatinine Ratio 35.0 H, Glucose 132 H, Calcium 8.9 Micro: Microbiology 05/24/25 13:30 Sputum, Tracheal Aspirate Gram Stain - Final 05/24/25 13:30 Sputum, Tracheal Aspirate Respiratory Culture - Final Mixed normal respiratory chilo. No Streptococcus pneumoniae, beta-hemolytic Streptococcus or Staphylococcus aureus isolated. 05/24/25 10:17 Urine, Clean Catch Urine Culture - Final GNR lactose utility system repairer 05/24/25 09:06 Blood Culture (Wb) - Anticubital Left Blood Culture - Preliminary No growth in 48 hours. 05/24/25 09:04 Blood Culture (Wb) - Anticubital Right Blood Culture - Preliminary No growth in 48 hours. 05/24/25 15:15 Urine Catheter - Henson Legionella Antigen - Final 05/24/25 15:15 Urine Catheter - Henson Streptococcus pneumoniae Antigen (M - Final 05/24/25 13:05 Mucosa - Nasopharyngeal Coronavirus COVID-19 PCR - Final 05/24/25 13:05 Mucosa - Nasopharyngeal Respiratory Panel (PCR) - Final Physical Exam Const Constitutional Narrative: The patient is currently intubated, sedated and mechanically ventilated. No ventilator dyssynchrony noted. HEENT normocephalic and head/scalp atraumatic Mouth: endotracheal tube in place and OG tube in place Eyes PERRL, EOMs intact bilaterally and conjunctivae normal Neck supple General: trachea midline Chest inspection of chest normal Resp Auscultation: diminished lung sounds; Negative for rales, rhonchi or wheezes Cardio regular rate and regular rhythm Heart Sounds: murmur GI normal to inspection, nondistended, normoactive bowel sounds Extremity General Extremity: edema; Negative for clubbing Skin no rashes or lesions noted Neuro Sensorium / Orientation: sedated on vent Charges/Coding Procedures Hospitalists Procedures: 76898 Critical Care 1st Hr
--- NOTE | 2025-05-27 07:38 | PN.CARD_ITS ---
Subjective Subjective Patient seen and evaluated. Patient is still intubated at this time. Weaning parameters ongoing still requires a low-dose of Levophed Objective Data Vital Signs: Vital Signs Temp Pulse Resp BP Pulse Ox O2 Del Method O2 Flow Rate 98.3 F 83 18 113/57 L 97 Mechanical Ventilator 15 05/27/25 06:00 05/27/25 07:22 05/27/25 07:22 05/27/25 06:00 05/27/25 07:22 05/27/25 06:00 05/24/25 08:52 FiO2 40 05/27/25 07:22 Oxygen Flow Rate (L/min) 15 Oxygen Delivery Method Mechanical Ventilator Weight: 158 lb 11.725 oz Body Mass Index (BMI) 28.0 Intake & Output: Intake and Output for Last 24 Hours 05/25/25 05/26/25 05/27/25 23:59 23:59 23:59 Intake Total 1812.57 / 1847.27 2062.30 / 2081.37 535.68 / 535.68 Output Total 2950 / 2950 3175 / 3175 650 / 650 Balance -1137.43 / -1102.73 -1112.70 / -1093.63 -114.32 / -114.32 Lab / Micro Data 05/27/25 03:26 05/27/25 03:26 Labs: Laboratory Results - last 24 hr 05/27/25 03:26: WBC 16.6 H, RBC 2.82 L, Hgb 7.9 L, Hct 26.1 L, MCV 92.6, MCH 28.0, MCHC 30.3 L, RDW Std Deviation 58.8 H, RDW Coeff of Gerber 17.3 H, Plt Count 186, MPV 10.1, Immature Gran % (Auto) 1.500 H, Neut % (Auto) 94.8 H, Lymph % (Auto) 2.7 L, [place] % (Auto) 0.9, Eos % (Auto) 0.0, Baso % (Auto) 0.1, Absolute Neuts (auto) 15.7 H, Absolute Lymphs (auto) 0.44 L, Nucleated RBC % 0.1, Sodium 145, Potassium 3.8, Chloride 109 H, Carbon Dioxide 23.4, Anion Gap 12, BUN 37 H, Creatinine 1.05, Estim Creat Clear Calc 51.35, Est GFR (MDRD) Non-Af 58 L, B UN/Creatinine Ratio 35.0 H, Glucose 132 H, Calcium 8.9 Micro: Microbiology 05/24/25 13:30 Sputum, Tracheal Aspirate Gram Stain - Final 05/24/25 13:30 Sputum, Tracheal Aspirate Respiratory Culture - Final Mixed normal respiratory chilo. No Streptococcus pneumoniae, beta-hemolytic Streptococcus or Staphylococcus aureus isolated. 05/24/25 10:17 Urine, Clean Catch Urine Culture - Final GNR lactose pulmonary physical therapist 05/24/25 09:06 Blood Culture (Wb) - Anticubital Left Blood Culture - Preliminary No growth in 48 hours. 05/24/25 09:04 Blood Culture (Wb) - Anticubital Right Blood Culture - Preliminary No growth in 48 hours. Cardiology Labs/Tests 05/27/25 03:26: WBC 16.6 H, RBC 2.82 L, Hgb 7.9 L, Hct 26.1 L, MCV 92.6, MCH 28.0, MCHC 30.3 L, Plt Count 186, MPV 10.1, Immature Gran % (Auto) 1.500 H, Neut % (Auto) 94.8 H, Lymph % (Auto) 2.7 L, [place] % (Auto) 0.9, Eos % (Auto) 0.0, Baso % (Auto) 0.1, Absolute Neuts (auto) 15.7 H, Nucleated RBC % 0.1, Sodium 145, Potassium 3.8, Chloride 109 H, Carbon Dioxide 23.4, Anion Gap 12, BUN 37 H, Creatinine 1.05, Est GFR (MDRD) Non-Af 58 L, BUN/Creatinine Ratio 35.0 H, G lucose 132 H, Calcium 8.9 Rhythm: EKG: ECHO: Stress Test: Cardiac Cath: PCI: CT Surgery: Holter monitor: EPS: PPM: CXR: Chest CT Scan: Physical Exam Const oriented x3 and no apparent distress Constitutional Narrative: Intubated sedated General Appearance: cooperative HEENT hearing grossly normal bilaterally Head and Scalp: atraumatic Eyes EOMs intact bilaterally Neck General: normal visual inspection Chest inspection of chest normal and palpation of chest normal Resp normal respiratory effort Auscultation: clear to auscultation bilaterally Cardio regular rate, regular rhythm, S1 normal heart sound and S2 normal heart sound Jugular Venous Distention: JVD Heart Sounds: murmur systolic III/ harsh holo apex and axilla GI normal to inspection, nondistended, normoactive bowel sounds Extremity normal capillary refill and no pedal edema General Extremity: edema bilateral lower extremity Details: mild Peripheral Pulses: Yes pulses 2+ throughout and femoral pulses present Skin no rashes or lesions noted Neuro CN's II-XII intact bilaterally Neuro Narrative: Sedated Psych Appearance: grossly normal and appropriate Assessment & Plan Assessment/Plan (1) Acute hypoxic respiratory failure: PLAN: Patient presents with hypoxic respiratory failure which may be due to a combination of anemia as well as heart failure Echocardiogram demonstrated preserved ejection fraction but with lateral wall hypokinesis suggestive of papillary muscle dysfunction with mitral regurgitation. * Will continue weaning parameters and attempts to extubate * Continue intravenous Lasix (2) CAD (coronary artery disease): QUALIFIERS: Coronary Disease-Associated Artery/Lesion type: [place] artery [place] vs. transplanted heart: [place] heart Associated angina: without angina Qualified Code(s): I25.10 - Atherosclerotic heart disease of [place] coronary artery without angina pectoris PLAN: Patient has known coronary artery disease with mild disease noted in the right coronary artery and status post PCI in January 2025 of a large obtuse marginal branch. * This will need to be reevaluated prior to discharge. (3) Cardiac murmur: PLAN: Patient has mitral regurgitation which is at least moderate likely secondary to papillary muscle dysfunction. Will need to evaluate whether this is from an occluded circumflex artery or whether this is from some other etiology. Ultimately this may need to be addressed perhaps with a mitral valve clip. (4) Anemia: PLAN: Patient has a chronic anemia the etiology of which is unclear. This may be exacerbating some of her clinical condition. Will need to discuss this further especially since she is going to be on dual antiplatelet therapy.
[2025-05-27] MEDS: Propofol 10MG/Ml 1,000 MG/100 ML Bottle 8.6 MG CONT INF (07:50)
[2025-05-27] MEDS: Chlorhexidine 15 ML PO ×2 (08:13→19:53)
[2025-05-27] MEDS: CHLORHEXIDINE GLUC 2% CLOTH 1 EACH TOWELETTE TOPICAL (08:14)
[2025-05-27] MEDS: Pantoprazole Sodium 40 MG in 0.9% Normal Saline (100mL MB+) 100 ML 300 MG IV (08:14)
[2025-05-27] MEDS: Meropenem 1 GM in 0.9% Normal Saline (100mL MB+) 100 ML IV ×3 (08:14→22:12)
[2025-05-27] MEDS: Senna/Docusate Sodium 1 Tablet 2 TABLET PO ×2 (10:10→22:13)
[2025-05-27] MEDS: dexMEDEtomidine 400 MCG in 0.9% Normal Saline (100mL Bag) 96 ML 9 MCG CONT INF (10:10)
[2025-05-27] MEDS: Vital AF 1.2 Cal Liquid 1,000 ML 10 ML GT (11:59)
[2025-05-27] MEDS: Vancomycin Trough/Random Due 1 LAB MC (14:01)
[2025-05-27 15:34] LABS: Vancomycin, Trough Level 19.7 ug/mL (5.0-15.0)
--- NOTE | 2025-05-27 15:49 | PCM.RX.CS ---
Consult Antibiotic Management Pharmacy has been consulted to manage selected antibiotic: Vancomycin Type of Intervention Type of Consult: Follow-up Suspected Infection Suspected Infection: Sepsis Prior Doses of Antibiotics Prior Doses of Antibiotics Received/Current Regimen: 3 * 750MG Q12H Labs Labs: Sodium 145 mmol/L (133-145) 05/27/25 03:26 Potassium 3.8 mmol/L (3.3-5.1) 05/27/25 03:26 Chloride 109 mmol/L (98-108) H 05/27/25 03:26 Carbon Dioxide 23.4 mmol/L (21.0-32.0) 05/27/25 03:26 Anion Gap 12 (5-15) 05/27/25 03:26 BUN 37 mg/dL (4-19) H 05/27/25 03:26 Creatinine 1.05 mg/dL (0.70-1.20) 05/27/25 03:26 Est GFR (MDRD) Non-Af 58 (>60) L 05/27/25 03:26 BUN/Creatinine Ratio 35.0 RATIO (10-20) H 05/27/25 03:26 Glucose 132 mg/dL (70-99) H 05/27/25 03:26 Vancomycin Trough 19.7 ug/mL (5.0-15.0) H 05/27/25 14:50 Microbiology Microbiology: Microbiology 05/24/25 13:30 Sputum, Tracheal Aspirate Gram Stain - Final 05/24/25 13:30 Sputum, Tracheal Aspirate Respiratory Culture - Final Mixed normal respiratory chilo. No Streptococcus pneumoniae, beta-hemolytic Streptococcus or Staphylococcus aureus isolated. 05/24/25 10:17 Urine, Clean Catch Urine Culture - Final GNR lactose music pastor 05/24/25 09:06 Blood Culture (Wb) - Anticubital Left Blood Culture - Preliminary No growth in 48 hours. 05/24/25 09:04 Blood Culture (Wb) - Anticubital Right Blood Culture - Preliminary No growth in 48 hours. 05/24/25 15:15 Urine Catheter - Henson Legionella Antigen - Final 05/24/25 15:15 Urine Catheter - Henson Streptococcus pneumoniae Antigen (M - Final 05/24/25 13:05 Mucosa - Nasopharyngeal Coronavirus COVID-19 PCR - Final 05/24/25 13:05 Mucosa - Nasopharyngeal Respiratory Panel (PCR) - Final Dosing Weight Weight used for dosin.2 kg Estimated Creatinine Clearance Estimated Creatinine Clearance: 51 ML/MIN Goal Trough Goal Trough: 15-20 mcg/mL Pharmacy Plan for Drug Dosing Pharmacy Plan for Drug Dosing: VANCOMYCIN LEVEL RECEIVED Current Vancomycin Dose: 750 mg Q12H Number of Doses Received: 3 Vancomycin Level: 19.7 mg/dL Hours Since Last Dose: 11.5 h Renal Function: 51.35 ml/min 1.05 mg/dL Renal Function Trend: Stable Vancomycin Plan/Comments: Level is therapeutic (on the higher end). Will continue dose as is. Pharmacy Service will continue to monitor and adjust dosing as required. Pending Level: 05/30/2025 @0230 Follow-Up Labs Follow-Up Labs: Trough: Vancomycin Date/Time Labs Ordered Labs to be done on [date and time ordered]: 05/29/2025 @0230
[2025-05-27] MEDS: Dexmedetomidine 1,000 mcg in 0.9% NS 240 mL 14.4 MCG CONT INF (15:54)
[2025-05-27] MEDS: 0.9% Saline Lock 10 ML Syringe IV (17:28)
--- NOTE | 2025-05-27 18:00 | PN.HOSP_ITS ---
Reason for Visit Chief Complaint: shortness of breath Subjective Subjective Patient was seen and examined today, I talked with her [id number] who was in the room at the time of my examination. Family is considering asking if the patient can be transferred to a different hospital for cardiac catheterization and further treatment, I told the [id number] that the plan for now is to try to perform a heart cath here, it does not appear that her mitral valve is a major issue at this point, [id number] states that the family is going to talk amongst themselves to try to determine if they want the patient transferred or not. I talked briefly with critical care about her care today. Objective Data Objective Data Vital Signs: Vital Signs Temp Pulse Resp BP Pulse Ox O2 Del Method O2 Flow Rate 98.3 F 65 18 103/54 L 92 Mechanical Ventilator 15 05/27/25 17:00 05/27/25 17:00 05/27/25 17:00 05/27/25 17:00 05/27/25 17:00 05/27/25 17:00 05/24/25 08:52 FiO2 40 05/27/25 17:00 Oxygen Flow Rate (L/min) 15 Oxygen Delivery Method Mechanical Ventilator Weight: 72 kg Body Mass Index (BMI) 28.0 Intake & Output: Intake and Output for Last 24 Hours 05/25/25 05/26/25 05/27/25 23:59 23:59 23:59 Intake Total 1812.57 / 1847.27 2062.30 / 2081.37 1185.22 / 1185.22 Output Total 2950 / 2950 3175 / 3175 2225 / 2225 Balance -1137.43 / -1102.73 -1112.70 / -1093.63 -1039.78 / -1039.78 Lab / Micro Data 05/27/25 03:26 05/27/25 03:26 Labs: Laboratory Results - last 24 hr 05/27/25 03:26: WBC 16.6 H, RBC 2.82 L, Hgb 7.9 L, Hct 26.1 L, MCV 92.6, MCH 28.0, MCHC 30.3 L, RDW Std Deviation 58.8 H, RDW Coeff of Gerber 17.3 H, Plt Count 186, MPV 10.1, Immature Gran % (Auto) 1.500 H, Neut % (Auto) 94.8 H, Lymph % (Auto) 2.7 L, [place] % (Auto) 0.9, Eos % (Auto) 0.0, Baso % (Auto) 0.1, Absolute Neuts (auto) 15.7 H, Absolute Lymphs (auto) 0.44 L, Nucleated RBC % 0.1, Sodium 145, Potassium 3.8, Chloride 109 H, Carbon Dioxide 23.4, Anion Gap 12, BUN 37 H, Creatinine 1.05, Estim Creat Clear Calc 51.35, Est GFR (MDRD) Non-Af 58 L, B UN/Creatinine Ratio 35.0 H, Glucose 132 H, Calcium 8.9 05/27/25 14:50: Vancomycin Trough 19.7 H Micro: Microbiology 05/24/25 13:30 Sputum, Tracheal Aspirate Gram Stain - Final 05/24/25 13:30 Sputum, Tracheal Aspirate Respiratory Culture - Final Mixed normal respiratory chilo. No Streptococcus pneumoniae, beta-hemolytic Streptococcus or Staphylococcus aureus isolated. 05/24/25 10:17 Urine, Clean Catch Urine Culture - Final GNR lactose business intelligence director 05/24/25 09:06 Blood Culture (Wb) - Anticubital Left Blood Culture - Preliminary No growth in 48 hours. 05/24/25 09:04 Blood Culture (Wb) - Anticubital Right Blood Culture - Preliminary No growth in 48 hours. 05/24/25 15:15 Urine Catheter - Henson Legionella Antigen - Final 05/24/25 15:15 Urine Catheter - Henson Streptococcus pneumoniae Antigen (M - Final 05/24/25 13:05 Mucosa - Nasopharyngeal Coronavirus COVID-19 PCR - Final 05/24/25 13:05 Mucosa - Nasopharyngeal Respiratory Panel (PCR) - Final Physical Exam Const no apparent distress Constitutional Narrative: Patient is under light sedation on the ventilator General Appearance: well kempt and well developed HEENT normocephalic, head/scalp atraumatic and moist oral mucous membranes Eyes PERRL and conjunctivae normal Neck no JVD and thyroid normal General: trachea midline Resp normal respiratory effort, no retractions, no use of accessory muscles and clear to auscultation bilaterally Auscultation: Negative for rales, rhonchi or wheezes Cardio regular rate, regular rhythm, S1 normal heart sound, S2 normal heart sound, no murmurs, no rub and no gallops GI normal to inspection, nondistended, normoactive bowel sounds, soft to palpation, non-tender and non-distended Extremity no clubbing, cyanosis or edema Skin no rashes or lesions noted General Skin Exam: no breakdown Neuro CN's II-XII intact bilaterally Neuro Narrative: Patient is sedated and on the ventilator Psych Psych Narrative: Patient is sedated and on the ventilator Assessment & Plan Assessment/Plan (1) Acute hypoxic respiratory failure: PLAN: Plan 1. Acute combined respiratory failure-secondary to COPD exacerbation and community-acquired pneumonia-continue empiric antibiotics, ventilator will be weaned if possible, continue scheduled bronchodilators and IV corticosteroids #2 septic shock secondary to community-acquired pneumonia-continue IV antimicrobials, patient is currently off pressor support #3 coronary artery disease-patient may need to undergo a cardiac catheterization when she is more medically stable, cardiology is participating in her care #4 valvular heart disease-patient has mitral regurg, this is not felt to be critical at this time #5 exacerbation of CHF with preserved ejection fraction-patient is on IV Lasix at this time #6 demand ischemia-patient may need to undergo a cardiac catheterization when she becomes more medically stable Type II non-STEMI was ruled out Total clinical time spent by myself addressing the patient's medical issues, reviewing all of her data, and collaborating with patient's care team: 35 minutes Charges/Coding Visit Charges Inpatient E&M: 80548 Subs Hosp L2
[2025-05-27] MEDS: fentaNYL drip 100 ML 12.5 MCG CONT INF (23:00)
[2025-05-28] VITALS (38 sets, daily range): BP systolic 105–162; BP diastolic 45–84; PULSE 61–123; RESP 7–25; TEMP 36.2–37.5; O2SAT 86–99; BMI 27.6
[2025-05-28] MEDS: Vancomycin HCl 750 MG in 0.9% Normal Saline (250mL Bag) 250 ML 250 MG IV ×2 (04:33→15:08)
[2025-05-28] MEDS: 0.9% Saline Lock 10 ML Syringe IV ×3 (04:49→20:53)
[2025-05-28] MEDS: Dexmedetomidine 1,000 mcg in 0.9% NS 240 mL 18 MCG CONT INF (05:38)
[2025-05-28] MEDS: Meropenem 1 GM in 0.9% Normal Saline (100mL MB+) 100 ML IV ×3 (05:58→20:49)
[2025-05-28 06:05] LABS: Hematocrit 31.7 % (37-47); Hemoglobin 9.5 g/dL (12.0-15.0); Immature Granulocytes Count 0.130 X10^3/uL (0.0-0.0); Mean Corp Hgb Conc 30.0 g/dL (32-36); Mean Corpuscular Volume 91.4 fL (81-99); Mean Platelet Vol. 10.3 fl (6.2-12.0); NRBC Flagged by Analyzer 0.6 % (0-5); POSITIVE DIFFERENTIAL YES; Platelet Count 251 K/mm3 (150-450); RBC Distribution Width CV 17.2 % (11.6-14.6); RBC Distribution Width SD 57.4 fl (35.1-43.9); Red Blood Count 3.47 M/mm3 (4.2-5.4); White Blood Count 13.8 K/mm3 (4.4-11.0)
[2025-05-28 06:34] LABS: Anion Gap 14 (5-15); BUN 47 mg/dL (4-19); BUN/Creat Ratio 46.9 RATIO (10-20); Calcium,Total 8.4 mg/dL (7.6-11.0); Carbon Dioxide 24.0 mmol/L (21.0-32.0); Chloride 108 mmol/L (98-108); Estimated Creatinine Clearance 51.54 ml/min (50-250); Glucose 208 mg/dL (70-99); Potassium 3.7 mmol/L (3.3-5.1)
--- NOTE | 2025-05-28 06:39 | PN.CC_ITS ---
Assessment & Plan Assessment/Plan (1) Acute hypoxic respiratory failure: PLAN: Plan RECOMMENDATIONS: 1. Proceed with a trial of extubation this morning. 2. Once extubated, wean supplemental oxygen to maintain saturations at or above 90%. 3. Continue antimicrobial therapy as ordered. 4. Ongoing diuresis as tolerated by hemodynamics and renal function. 5. Continue bronchodilators and steroids. 6. Continue appropriate ICU prophylaxis. 7. Swallow evaluation prior to advancement of diet. 8. Encourage incentive spirometer use and mobilize patient as tolerated. IMPRESSIONS: 1. Acute hypoxemic and hypercapnic respiratory failure Clinical concern for underlying COPD exacerbation related to pneumonia. The patient does have suspected COPD based upon an extensive tobacco abuse history, but has not completed pulmonary function studies yet. Plan to continue current supportive measures. Empiric antibiotics will be continued to complete 7 days of therapy. The patient will be maintained on scheduled bronchodilators and steroids. The patient was ultimately able to complete a spontaneous breathing trial this morning. Therefore, we will plan to proceed with a trial of extubation. Once extubated, wean supplemental oxygen to maintain saturations at or above 90%. Continue ongoing diuresis as tolerated by hemodynamics and renal function. Recommend formal swallow evaluation prior to advancement of diet. 2. Septic shock Resolved. The patient presented to the hospital with sepsis due to possible pneumonia with acute sepsis related organ dysfunction as evidenced by respiratory failure requiring invasive mechanical ventilatory support and lactic acidemia. Although patient initially required vasopressor support, the patient has been weaned from Levophed and remains hemodynamically stable. Antimicrobials will be continued, as noted above. 3. History of recurrent anemia of unclear etiology Continue to monitor blood counts and transfuse if hemoglobin drops below 7 g/dL. Continue PPI therapy as ordered. 4. History of tobacco dependency/obstructive sleep apnea/history of coronary artery disease status post PCI Complicates care, management, recovery and prognosis. Continue supportive measures as noted above. Cardiology following to assist with medical management and timing for any additional intervention and workup. CODE STATUS: Full code TIME: 36 minutes of critical care time, independent of procedures, was spent addressing the patient's acute hypoxemic and hypercapnic respiratory failure, septic shock, review of all data and collaboration with the care team. Subjective Subjective The patient was seen and examined at the bedside this morning. Events from the last 24 hours have been reviewed. The patient is currently afebrile, hemodynamically stable and maintaining appropriate oxygen saturations on assist- control mode mechanical ventilation with an FiO2 requirement of 40% and PEEP of 5. The patient tolerated a spontaneous awakening trial this morning without complication. She was subsequently placed on a spontaneous breathing trial, which she completed. The patient was alert and able to follow commands appropriately. Accordingly, the patient was extubated. Objective Data Objective Data The patient's most recent lab work, culture data and imaging studies have all been personally reviewed. Surface echocardiogram demonstrated normal LV size and function with an ejection fraction of 65%. Infectious workup has been largely unrevealing to date. Vital Signs: Vital Signs Temp Pulse Resp BP Pulse Ox O2 Del Method O2 Flow Rate 98.3 F 65 18 105/58 L 86 Mechanical Ventilator 15 05/28/25 06:00 05/28/25 06:00 05/28/25 06:00 05/28/25 06:00 05/28/25 06:00 05/28/25 06:00 05/24/25 08:52 FiO2 40 05/28/25 06:00 Oxygen Flow Rate (L/min) 15 Oxygen Delivery Method Mechanical Ventilator Weight: 156 lb 4.924 oz Body Mass Index (BMI) 27.6 Intake & Output: Intake and Output for Last 24 Hours 05/26/25 05/27/25 05/28/25 23:59 23:59 23:59 Intake Total 2062.30 / 2081.37 1831.77 / 1848.77 719.05 / 719.05 Output Total 3175 / 3175 3225 / 3225 600 / 600 Balance -1112.70 / -1093.63 -1393.23 / -1376.23 119.05 / 119.05 Lab / Micro Data Attestation: I reviewed the patient's lab results. 05/28/25 05:51 05/28/25 05:51 Labs: Laboratory Results - last 24 hr 05/27/25 14:50: Vancomycin Trough 19.7 H 05/28/25 05:51: WBC 13.8 H, RBC 3.47 L, Hgb 9.5 L, Hct 31.7 L, MCV 91.4, MCH 27.4, MCHC 30.0 L, RDW Std Deviation 57.4 H, RDW Coeff of Gerber 17.2 H, Plt Count 251, MPV 10.3, Immature Gran % (Auto) 0.900, Neut % (Auto) 93.8 H, Lymph % (Auto) 3.8 L, [place] % (Auto) 1.4, Eos % (Auto) 0.0, Baso % (Auto) 0.1, Absolute Neuts (auto) 13.0 H, Absolute Lymphs (auto) 0.52 L, Nucleated RBC % 0.6, Sodium 146 H, Potassium 3.7, Chloride 108, Carbon Dioxide 24.0, Anion Gap 14, BUN 47 H, Creatinine 1.00, Estim Creat Clear Calc 51.54, Est GFR (MDRD) Non-Af 62, B UN/Creatinine Ratio 46.9 H, Glucose 208 H, Calcium 8.4 Micro: Microbiology 05/24/25 13:30 Sputum, Tracheal Aspirate Gram Stain - Final 05/24/25 13:30 Sputum, Tracheal Aspirate Respiratory Culture - Final Mixed normal respiratory chilo. No Streptococcus pneumoniae, beta-hemolytic Streptococcus or Staphylococcus aureus isolated. 05/24/25 10:17 Urine, Clean Catch Urine Culture - Final GNR lactose correction [facility] 05/24/25 09:06 Blood Culture (Wb) - Anticubital Left Blood Culture - Preliminary No growth in 48 hours. 05/24/25 09:04 Blood Culture (Wb) - Anticubital Right Blood Culture - Preliminary No growth in 48 hours. 05/24/25 15:15 Urine Catheter - Henson Legionella Antigen - Final 05/24/25 15:15 Urine Catheter - Henson Streptococcus pneumoniae Antigen (M - Final 05/24/25 13:05 Mucosa - Nasopharyngeal Coronavirus COVID-19 PCR - Final 05/24/25 13:05 Mucosa - Nasopharyngeal Respiratory Panel (PCR) - Final Physical Exam Const Constitutional Narrative: Remains intubated and mechanically ventilated. Currently tolerating spontaneous mode of mechanical ventilation. HEENT normocephalic and head/scalp atraumatic Mouth: endotracheal tube in place and OG tube in place Eyes PERRL, EOMs intact bilaterally and conjunctivae normal Neck supple General: trachea midline Chest inspection of chest normal Resp Auscultation: diminished lung sounds; Negative for rales, rhonchi or wheezes Cardio regular rate and regular rhythm Heart Sounds: murmur GI normal to inspection, nondistended, normoactive bowel sounds Extremity General Extremity: edema; Negative for clubbing Skin no rashes or lesions noted Neuro Neuro Narrative: Alert and able to follow commands appropriately. Charges/Coding Procedures Hospitalists Procedures: 15998 Critical Care 1st Hr
[2025-05-28] MEDS: Senna/Docusate Sodium 1 Tablet 2 TABLET PO ×2 (07:30→20:50)
--- NOTE | 2025-05-28 08:05 | PN.CARD_ITS ---
Subjective Subjective Patient seen and evaluated. She is doing better hemodynamically on no pressors at this time. Hoping to be extubated sometime today. Objective Data Vital Signs: Vital Signs Temp Pulse Resp BP Pulse Ox O2 Del Method O2 Flow Rate 97.6 F L 92 14 147/73 H 94 Mechanical Ventilator 15 05/28/25 07:00 05/28/25 07:00 05/28/25 07:00 05/28/25 07:00 05/28/25 07:00 05/28/25 07:00 05/24/25 08:52 FiO2 45 05/28/25 07:00 Oxygen Flow Rate (L/min) 15 Oxygen Delivery Method Mechanical Ventilator Weight: 156 lb 4.924 oz Body Mass Index (BMI) 27.6 Intake & Output: Intake and Output for Last 24 Hours 05/26/25 05/27/25 05/28/25 23:59 23:59 23:59 Intake Total 2062.30 / 2081.37 1831.77 / 1848.77 733.69 / 733.69 Output Total 3175 / 3175 3225 / 3225 600 / 600 Balance -1112.70 / -1093.63 -1393.23 / -1376.23 133.69 / 133.69 Lab / Micro Data 05/28/25 05:51 05/28/25 05:51 Labs: Laboratory Results - last 24 hr 05/27/25 14:50: Vancomycin Trough 19.7 H 05/28/25 05:51: WBC 13.8 H, RBC 3.47 L, Hgb 9.5 L, Hct 31.7 L, MCV 91.4, MCH 27.4, MCHC 30.0 L, RDW Std Deviation 57.4 H, RDW Coeff of Gerber 17.2 H, Plt Count 251, MPV 10.3, Immature Gran % (Auto) 0.900, Neut % (Auto) 93.8 H, Lymph % (Auto) 3.8 L, [place] % (Auto) 1.4, Eos % (Auto) 0.0, Baso % (Auto) 0.1, Absolute Neuts (auto) 13.0 H, Absolute Lymphs (auto) 0.52 L, Nucleated RBC % 0.6, Sodium 146 H, Potassium 3.7, Chloride 108, Carbon Dioxide 24.0, Anion Gap 14, BUN 47 H, Creatinine 1.00, Estim Creat Clear Calc 51.54, Est GFR (MDRD) Non-Af 62, B UN/Creatinine Ratio 46.9 H, Glucose 208 H, Calcium 8.4 Cardiology Labs/Tests 05/28/25 05:51: WBC 13.8 H, RBC 3.47 L, Hgb 9.5 L, Hct 31.7 L, MCV 91.4, MCH 27.4, MCHC 30.0 L, Plt Count 251, MPV 10.3, Immature Gran % (Auto) 0.900, Neut % (Auto) 93.8 H, Lymph % (Auto) 3.8 L, [place] % (Auto) 1.4, Eos % (Auto) 0.0, Baso % (Auto) 0.1, Absolute Neuts (auto) 13.0 H, Nucleated RBC % 0.6, Sodium 146 H, Potassium 3.7, Chloride 108, Carbon Dioxide 24.0, Anion Gap 14, BUN 47 H, Creatinine 1.00, Est GFR (MDRD) Non-Af 62, BUN/Creatinine Ratio 46.9 H, Glucose 208 H, Calcium 8.4 Rhythm: EKG: ECHO: Stress Test: Cardiac Cath: PCI: CT Surgery: Holter monitor: EPS: PPM: CXR: Chest CT Scan: Physical Exam Const oriented x3 and no apparent distress Constitutional Narrative: Intubated sedated General Appearance: cooperative HEENT hearing grossly normal bilaterally Head and Scalp: atraumatic Eyes EOMs intact bilaterally Neck General: normal visual inspection Chest inspection of chest normal and palpation of chest normal Resp normal respiratory effort Auscultation: clear to auscultation bilaterally Cardio regular rate, regular rhythm, S1 normal heart sound and S2 normal heart sound Jugular Venous Distention: JVD Heart Sounds: murmur systolic III/ harsh holo apex and axilla GI normal to inspection, nondistended, normoactive bowel sounds Extremity normal capillary refill and no pedal edema General Extremity: edema bilateral lower extremity Details: mild Peripheral Pulses: Yes pulses 2+ throughout and femoral pulses present Skin no rashes or lesions noted Neuro CN's II-XII intact bilaterally Neuro Narrative: Sedated Psych Appearance: grossly normal and appropriate Assessment & Plan Assessment/Plan (1) Acute hypoxic respiratory failure: PLAN: Patient presents with hypoxic respiratory failure which may be due to a combination of anemia as well as heart failure Echocardiogram demonstrated preserved ejection fraction but with lateral wall hypokinesis suggestive of papillary muscle dysfunction with mitral regurgitation. * Will continue weaning parameters and attempts to extubate * Continue intravenous Lasix (2) CAD (coronary artery disease): QUALIFIERS: Coronary Disease-Associated Artery/Lesion type: [place] artery [place] vs. transplanted heart: [place] heart Associated angina: without angina Qualified Code(s): I25.10 - Atherosclerotic heart disease of [place] coronary artery without angina pectoris PLAN: Patient has known coronary artery disease with mild disease noted in the right coronary artery and status post PCI in January 2025 of a large obtuse marginal branch. * This will need to be reevaluated prior to discharge. (3) Cardiac murmur: PLAN: Patient has mitral regurgitation which is at least moderate likely secondary to papillary muscle dysfunction. Will need to evaluate whether this is from an occluded circumflex artery or whether this is from some other etiology. Ultimately this may need to be addressed perhaps with a mitral valve clip. (4) Anemia: PLAN: Patient has a chronic anemia the etiology of which is unclear. This may be exacerbating some of her clinical condition. Will need to discuss this further especially since she is going to be on dual antiplatelet therapy. PLAN: Plan Above was discussed in detail at the bedside with the entire family and also a nurse present. Also discussed with physician.
--- NOTE | 2025-05-28 08:35 | NURSING ---
PT extubated and placed on NC at 0800, pulse oxe 86, pt then placed on venti mask, pulse oxe remained at 86, Airvo ordered and placed on pt on 60L 70%
[2025-05-28 09:59] LABS: Pro- Brain NATRIURETIC PEPTIDE 3690 pg/mL (<=900)
[2025-05-28] MEDS: Chlorhexidine 15 ML PO (10:09)
[2025-05-28] MEDS: CHLORHEXIDINE GLUC 2% CLOTH 1 EACH TOWELETTE TOPICAL (10:09)
[2025-05-28] MEDS: Pantoprazole Sodium 40 MG in 0.9% Normal Saline (100mL MB+) 100 ML 300 MG IV (10:10)
--- NOTE | 2025-05-28 14:35 | PCM.PN.HOSP ---
Reason for Visit Chief Complaint: shortness of breath Subjective Subjective Patient was seen and examined today, she was extubated earlier this morning but remains confused, she is currently on Airvo, according to nursing, family cannot make up their mind whether to have her reintubated if necessary or refrain from placing her back on the vent. According to nursing, Dr. Murrieta's talked with the family twice today. Objective Data Objective Data Vital Signs: Vital Signs Temp Pulse Resp BP Pulse Ox O2 Del Method O2 Flow Rate 98.4 F 80 18 133/52 H 97 Airvo 60 05/28/25 12:00 05/28/25 12:00 05/28/25 12:00 05/28/25 12:00 05/28/25 12:00 05/28/25 12:00 05/28/25 12:00 FiO2 50 05/28/25 12:00 Oxygen Flow Rate (L/min) 60 Oxygen Delivery Method Airvo Weight: 70.9 kg Body Mass Index (BMI) 27.6 Intake & Output: Intake and Output for Last 24 Hours 05/26/25 05/27/25 05/28/25 23:59 23:59 23:59 Intake Total 2062.30 / 2081.37 1831.77 / 1848.77 1027.37 / 1027.37 Output Total 3175 / 3175 3225 / 3225 2600 / 2600 Balance -1112.70 / -1093.63 -1393.23 / -1376.23 -1572.63 / -1572.63 Lab / Micro Data 05/28/25 05:51 05/28/25 05:51 Labs: Laboratory Results - last 24 hr 05/27/25 14:50: Vancomycin Trough 19.7 H 05/28/25 05:51: WBC 13.8 H, RBC 3.47 L, Hgb 9.5 L, Hct 31.7 L, MCV 91.4, MCH 27.4, MCHC 30.0 L, RDW Std Deviation 57.4 H, RDW Coeff of Gerber 17.2 H, Plt Count 251, MPV 10.3, Immature Gran % (Auto) 0.900, Neut % (Auto) 93.8 H, Lymph % (Auto) 3.8 L, [place] % (Auto) 1.4, Eos % (Auto) 0.0, Baso % (Auto) 0.1, Absolute Neuts (auto) 13.0 H, Absolute Lymphs (auto) 0.52 L, Nucleated RBC % 0.6, Sodium 146 H, Potassium 3.7, Chloride 108, Carbon Dioxide 24.0, Anion Gap 14, BUN 47 H, Creatinine 1.00, Estim Creat Clear Calc 51.54, Est GFR (MDRD) Non-Af 62, BUN/Creatinine Ratio 46.9 H, Glucose 208 H, Calcium 8.4 05/28/25 08:59: NT pro BNP II 3690 H Micro: Microbiology 05/24/25 13:30 Sputum, Tracheal Aspirate Gram Stain - Final 05/24/25 13:30 Sputum, Tracheal Aspirate Respiratory Culture - Final Mixed normal respiratory chilo. No Streptococcus pneumoniae, beta-hemolytic Streptococcus or Staphylococcus aureus isolated. 05/24/25 10:17 Urine, Clean Catch Urine Culture - Final GNR lactose philosophy instructor 05/24/25 09:06 Blood Culture (Wb) - Anticubital Left Blood Culture - Preliminary No growth in 48 hours. 05/24/25 09:04 Blood Culture (Wb) - Anticubital Right Blood Culture - Preliminary No growth in 48 hours. 05/24/25 15:15 Urine Catheter - Henson Legionella Antigen - Final 05/24/25 15:15 Urine Catheter - Henson Streptococcus pneumoniae Antigen (M - Final 05/24/25 13:05 Mucosa - Nasopharyngeal Coronavirus COVID-19 PCR - Final 05/24/25 13:05 Mucosa - Nasopharyngeal Respiratory Panel (PCR) - Final Physical Exam Const alert and no apparent distress Constitutional Narrative: Patient is alert but confused, she is on Airvo General Appearance: cooperative, well kempt and well developed Orientation / Consciousness: awake and oriented to person HEENT normocephalic, head/scalp atraumatic and moist oral mucous membranes Eyes PERRL, EOMs intact bilaterally and conjunctivae normal Neck supple, no JVD and thyroid normal General: trachea midline Resp normal respiratory effort, no retractions, no use of accessory muscles and clear to auscultation bilaterally Auscultation: Negative for rales, rhonchi or wheezes Cardio regular rate, regular rhythm, S1 normal heart sound, S2 normal heart sound, no murmurs, no rub and no gallops GI normal to inspection, nondistended, normoactive bowel sounds, soft to palpation, non-tender and non-distended Extremity no clubbing, cyanosis or edema Skin no rashes or lesions noted General Skin Exam: no breakdown Neuro CN's II-XII intact bilaterally, no focal motor deficits and no sensory deficits noted Neuro Narrative: Patient is confused Sensorium / Orientation: awake, alert and oriented to person Speech: speech normal Psych affect normal Assessment & Plan Assessment/Plan (1) COPD exacerbation: (2) Acute hypoxic respiratory failure: PLAN: Plan 1. Acute combined respiratory failure-secondary to COPD exacerbation and community-acquired pneumonia-continue empiric antibiotics, patient remains on aerosol treatments, IV Lasix, and Solu-Medrol. She is currently on Airvo #2 septic shock secondary to community-acquired pneumonia-continue IV antimicrobials, patient is currently off pressor support #3 coronary artery disease-patient may need to undergo a cardiac catheterization when she is more medically stable, cardiology is participating in her care #4 valvular heart disease-patient has mitral regurg, this is not felt to be critical at this time #5 exacerbation of CHF with preserved ejection fraction-patient is on IV Lasix at this time #6 demand ischemia-patient may need to undergo a cardiac catheterization when she becomes more medically stable #7 metabolic encephalopathy-complicates care, management, recovery, and prognosis. Type II non-STEMI was ruled out, patient is a full code Total clinical time spent by myself addressing the patient's medical issues, reviewing all of her data, and collaborating with patient's care team: 35 minutes Charges/Coding Visit Charges Inpatient E&M: 01021 Subs Hosp L2
--- NOTE | 2025-05-28 14:46 | PCM.HOSP.N ---
Hospitalist Note Additional note, I talked with the patient's family who are in the room during the time of my examination, patient's [id number] states that the patient's would want full measures for the patient at this time including reintubation if necessary.
[2025-05-28] MEDS: 0.9% Normal Saline (250mL Bag) 250 ML 15 ML IV ×2 (14:50→15:05)
[2025-05-29] VITALS (28 sets, daily range): BP systolic 124–155; BP diastolic 53–70; PULSE 72–91; RESP 9–21; TEMP 37.2–37.9; O2SAT 91–100; BMI 26.3
[2025-05-29 02:55] LABS: Vancomycin, Trough Level 21.7 ug/mL (5.0-15.0)
--- NOTE | 2025-05-29 03:01 | PHA.PHARE_ITS ---
Consult Antibiotic Management Pharmacy has been consulted to manage selected antibiotic: Vancomycin Type of Intervention Type of Consult: Follow-up Suspected Infection Suspected Infection: Sepsis Labs Labs: Sodium 146 mmol/L (133-145) H 05/28/25 05:51 Potassium 3.7 mmol/L (3.3-5.1) 05/28/25 05:51 Chloride 108 mmol/L (98-108) 05/28/25 05:51 Carbon Dioxide 24.0 mmol/L (21.0-32.0) 05/28/25 05:51 Anion Gap 14 (5-15) 05/28/25 05:51 BUN 47 mg/dL (4-19) H 05/28/25 05:51 Creatinine 1.00 mg/dL (0.70-1.20) 05/28/25 05:51 Est GFR (MDRD) Non-Af 62 (>60) 05/28/25 05:51 BUN/Creatinine Ratio 46.9 RATIO (10-20) H 05/28/25 05:51 Glucose 208 mg/dL (70-99) H 05/28/25 05:51 Vancomycin Trough 21.7 ug/mL (5.0-15.0) H 05/29/25 02:15 Microbiology Microbiology: Microbiology 05/24/25 13:30 Sputum, Tracheal Aspirate Gram Stain - Final 05/24/25 13:30 Sputum, Tracheal Aspirate Respiratory Culture - Final Mixed normal respiratory chilo. No Streptococcus pneumoniae, beta-hemolytic Streptococcus or Staphylococcus aureus isolated. 05/24/25 10:17 Urine, Clean Catch Urine Culture - Final GNR lactose die equipment operator 05/24/25 09:06 Blood Culture (Wb) - Anticubital Left Blood Culture - Preliminary No growth in 48 hours. 05/24/25 09:04 Blood Culture (Wb) - Anticubital Right Blood Culture - Preliminary No growth in 48 hours. 05/24/25 15:15 Urine Catheter - Henson Legionella Antigen - Final 05/24/25 15:15 Urine Catheter - Henson Streptococcus pneumoniae Antigen (M - Final 05/24/25 13:05 Mucosa - Nasopharyngeal Coronavirus COVID-19 PCR - Final 05/24/25 13:05 Mucosa - Nasopharyngeal Respiratory Panel (PCR) - Final Dosing Weight Weight used for dosin.9 kg Estimated Creatinine Clearance Estimated Creatinine Clearance: 52 Goal Trough Goal Trough: 15-20 mcg/mL Pharmacy Plan for Drug Dosing Pharmacy Plan for Drug Dosing: Vancomycin trough level of 21.7, drawn 11hrs post-dose, was above the target range of 15-20. Will suspend current dosing and draw a random vanco level in 12 hours to determine further orders. Pharmacy Service will continue to monitor and adjust dosing as required. Follow-Up Labs Follow-Up Labs: Trough: Vancomycin (random) Date/Time Labs Ordered Labs to be done on [date and time ordered]: 05/29/25 @1400 (random)
[2025-05-29 03:31] LABS: Hematocrit 29.8 % (37-47); Hemoglobin 9.2 g/dL (12.0-15.0); Immature Granulocytes Count 0.180 X10^3/uL (0.0-0.0); Mean Corp Hgb Conc 30.9 g/dL (32-36); Mean Corpuscular Volume 88.4 fL (81-99); Mean Platelet Vol. 9.9 fl (6.2-12.0); NRBC Flagged by Analyzer 0.2 % (0-5); Platelet Count 216 K/mm3 (150-450); RBC Distribution Width CV 17.3 % (11.6-14.6); RBC Distribution Width SD 55.7 fl (35.1-43.9); Red Blood Count 3.37 M/mm3 (4.2-5.4); White Blood Count 19.6 K/mm3 (4.4-11.0)
[2025-05-29 03:51] LABS: Anion Gap 13 (5-15); BUN 42 mg/dL (4-19); BUN/Creat Ratio 50.2 RATIO (10-20); Calcium,Total 9.0 mg/dL (7.6-11.0); Carbon Dioxide 30.1 mmol/L (21.0-32.0); Chloride 104 mmol/L (98-108); Estimated Creatinine Clearance 61.35 ml/min (50-250); Glucose 108 mg/dL (70-99); Potassium 3.2 mmol/L (3.3-5.1)
[2025-05-29] MEDS: Meropenem 1 GM in 0.9% Normal Saline (100mL MB+) 100 ML IV ×3 (05:03→22:32)
--- NOTE | 2025-05-29 06:40 | PCM.PN.INT ---
Assessment & Plan Assessment/Plan (1) Acute hypoxic respiratory failure: PLAN: Plan RECOMMENDATIONS: 1. Continue to wean oxygen to maintain saturations at or above 90%. 2. Obtain follow-up ABG and chest x-ray this morning. 3. Decrease Lasix dosing to once daily. 4. Discontinue IV steroids. 5. Continue empiric antimicrobial therapy. 6. Continue scheduled bronchodilators. 7. Obtain speech therapy consultation. 8. Encourage incentive spirometer use and mobilize patient as tolerated. IMPRESSIONS: 1. Acute hypoxemic and hypercapnic respiratory failure Clinical concern for underlying COPD exacerbation related to pneumonia. The patient does have suspected COPD based upon an extensive tobacco abuse history, but has not completed pulmonary function studies yet. Plan to continue current treatment measures. Empiric antibiotics will be continued to complete 7 days of therapy. The patient will be maintained on scheduled bronchodilators. Given clinical stability, we will plan to discontinue IV steroids today. With supportive care, the patient was able to be extubated on May 28. Her diuretics will be decreased to once daily today. Her supplemental oxygen will be weaned to maintain saturations at or above 90%. Recommend speech therapy evaluation prior to advancement of diet. Will obtain follow-up chest x-ray and ABG this morning. 2. Septic shock Resolved. The patient presented to the hospital with sepsis due to possible pneumonia with acute sepsis related organ dysfunction as evidenced by respiratory failure requiring invasive mechanical ventilatory support and lactic acidemia. Although patient initially required vasopressor support, the patient has been weaned from Levophed and remains hemodynamically stable. Antimicrobials will be continued, as noted above. 3. History of recurrent anemia of unclear etiology Continue to monitor blood counts and transfuse if hemoglobin drops below 7 g/dL. Continue PPI therapy as ordered. 4. History of tobacco dependency/obstructive sleep apnea/history of coronary artery disease status post PCI Complicates care, management, recovery and prognosis. Continue supportive measures as noted above. Cardiology following to assist with medical management and timing for any additional intervention and workup. CODE STATUS: Full code This note was generated with [employer] dictation software. It may contain incorrect words, spelling, and punctuation that were not noted in checking the note before signing. Subjective Subjective The patient was seen and examined at the bedside this morning. Events from the last 24 hours have been reviewed. The patient currently has a low-grade fever but remains otherwise hemodynamically stable on heated high flow oxygen with an FiO2 requirement of 40%. She does report the presence of shortness of breath this morning. She is currently documented to be overall net -4.3 L for the hospitalization. BNP remains elevated at 3690. White blood cell count is elevated at 20,000 with a hemoglobin of 9.2 g/dL. Sodium has increased to 147 with a potassium of 3.2. Objective Data Objective Data The patient's most recent lab work, culture data and imaging studies have all been personally reviewed. Surface echocardiogram demonstrated normal LV size and function with an ejection fraction of 65%. Infectious workup has been largely unrevealing to date. Vital Signs: Vital Signs Temp Pulse Resp BP Pulse Ox O2 Del Method O2 Flow Rate 99.2 F H 77 12 132/56 H 97 Airvo 40 05/29/25 06:00 05/29/25 06:00 05/29/25 06:00 05/29/25 06:00 05/29/25 06:00 05/29/25 06:00 05/29/25 06:00 FiO2 40 05/29/25 06:00 Oxygen Flow Rate (L/min) 40 Oxygen Delivery Method Airvo Weight: 148 lb 9.465 oz Body Mass Index (BMI) 26.3 Intake & Output: Intake and Output for Last 24 Hours 05/27/25 05/28/25 05/29/25 23:59 23:59 23:59 Intake Total 1831.77 / 1848.77 1417.87 / 1417.87 100 / 100 Output Total 3225 / 3225 3500 / 5025 1925 / 1925 Balance -1393.23 / -1376.23 -2082.13 / -3607.13 -1825 / -1825 Lab / Micro Data Attestation: I reviewed the patient's lab results. 05/29/25 03:20 05/29/25 03:20 Labs: Laboratory Results - last 24 hr 05/28/25 08:59: NT pro BNP II 3690 H 05/29/25 02:15: Vancomycin Trough 21.7 H 05/29/25 03:20: WBC 19.6 H, RBC 3.37 L, Hgb 9.2 L, Hct 29.8 L, MCV 88.4, MCH 27.3, MCHC 30.9 L, RDW Std Deviation 55.7 H, RDW Coeff of [place] 17.3 H, Plt Count 216, MPV 9.9, Immature Gran % (Auto) 0.900, Neut % (Auto) 91.3 H, Lymph % (Auto) 3.8 L, [place] % (Auto) 3.9, Eos % (Auto) 0.0, Baso % (Auto) 0.1, Absolute Neuts (auto) 17.9 H, Absolute Lymphs (auto) 0.74 L, Nucleated RBC % 0.2, Sodium 147 H, Potassium 3.2 L, Chloride 104, Carbon Dioxide 30.1, Anion Gap 13, BUN 42 H, Creatinine 0.84, Estim Creat Clear Calc 61.35, Est GFR (MDRD) Non-Af 76, BUN/Creatinine Ratio 50.2 H, Glucose 108 H, Calcium 9.0 Micro: Microbiology 05/24/25 13:30 Sputum, Tracheal Aspirate Gram Stain - Final 05/24/25 13:30 Sputum, Tracheal Aspirate Respiratory Culture - Final Mixed normal respiratory chilo. No Streptococcus pneumoniae, beta-hemolytic Streptococcus or Staphylococcus aureus isolated. 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 05/24/25 09:04 Blood Culture (Wb) - Anticubital Right Blood Culture - Preliminary No growth in 48 hours. 05/24/25 15:15 Urine Catheter - Henson Legionella Antigen - Final 05/24/25 15:15 Urine Catheter - Henson Streptococcus pneumoniae Antigen (M - Final 05/24/25 13:05 Mucosa - Nasopharyngeal Coronavirus COVID-19 PCR - Final 05/24/25 13:05 Mucosa - Nasopharyngeal Respiratory Panel (PCR) - Final Physical Exam Const alert and no apparent distress General Appearance: lethargic and ill appearing HEENT normocephalic and head/scalp atraumatic Eyes PERRL, EOMs intact bilaterally and conjunctivae normal Neck supple General: trachea midline Chest inspection of chest normal Resp Auscultation: diminished lung sounds; Negative for rales, rhonchi or wheezes Cardio regular rate and regular rhythm Heart Sounds: murmur GI normal to inspection, nondistended, normoactive bowel sounds Extremity General Extremity: edema; Negative for clubbing Skin no rashes or lesions noted Neuro CN's II-XII intact bilaterally and no focal motor deficits Psych Mood & Affect: flat affect Charges/Coding Visit Charges Inpatient E&M: 91878 Subs Hosp L3
--- NOTE | 2025-05-29 07:26 | RAD_ITS ---
PROCEDURE: CHEST 1 VIEW (PORTABLE) 05/29/2025 REASON FOR EXAM: SHORTNESS OF BREATH TECHNIQUE: Frontal view of the chest. COMPARISON: AP chest of 05/25/2025. RAD/Chest 1 View (Portable) IMPRESSION: No significant pleural effusion is now seen. Stable right jugular central venous catheter. Interval removal of the nasogastric tube and endotracheal tube. Minimal residual pulmonary edema is now seen. Mild residual left lower lobe atelectasis. No focal infiltrate is evident. No pneumothorax is seen. The cardiomediastinal silhouette is within the normal range, without evidence o f cardiomegaly. Reading Location: [place] [address]
--- NOTE | 2025-05-29 07:38 | PN.CARD_ITS ---
Subjective Subjective Patient seen and evaluated. Still rather sleepy Objective Data Vital Signs: Vital Signs Temp Pulse Resp BP Pulse Ox O2 Del Method O2 Flow Rate 99.2 F H 87 12 134/65 H 95 Airvo 40 05/29/25 06:00 05/29/25 07:10 05/29/25 07:10 05/29/25 07:00 05/29/25 07:10 05/29/25 07:00 05/29/25 07:00 FiO2 40 05/29/25 07:10 Oxygen Flow Rate (L/min) 40 Oxygen Delivery Method Airvo Weight: 148 lb 9.465 oz Body Mass Index (BMI) 26.3 Intake & Output: Intake and Output for Last 24 Hours 05/27/25 05/28/25 05/29/25 23:59 23:59 23:59 Intake Total 1831.77 / 1848.77 1417.87 / 1417.87 100 / 100 Output Total 3225 / 3225 3500 / 5025 1925 / 1925 Balance -1393.23 / -1376.23 -2082.13 / -3607.13 -1825 / -1825 Lab / Micro Data 05/29/25 03:20 05/29/25 03:20 Labs: Laboratory Results - last 24 hr 05/28/25 08:59: NT pro BNP II 3690 H 05/29/25 02:15: Vancomycin Trough 21.7 H 05/29/25 03:20: WBC 19.6 H, RBC 3.37 L, Hgb 9.2 L, Hct 29.8 L, MCV 88.4, MCH 27.3, MCHC 30.9 L, RDW Std Deviation 55.7 H, RDW Coeff of Gerber 17.3 H, Plt Count 216, MPV 9.9, Immature Gran % (Auto) 0.900, Neut % (Auto) 91.3 H, Lymph % (Auto) 3.8 L, [place] % (Auto) 3.9, Eos % (Auto) 0.0, Baso % (Auto) 0.1, Absolute Neuts (auto) 17.9 H, Absolute Lymphs (auto) 0.74 L, Nucleated RBC % 0.2, Sodium 147 H, Potassium 3.2 L, Chloride 104, Carbon Dioxide 30.1, Anion Gap 13, BUN 42 H, Creatinine 0.84, Estim Creat Clear Calc 61.35, Est GFR (MDRD) Non-Af 76, B UN/Creatinine Ratio 50.2 H, Glucose 108 H, Calcium 9.0 Cardiology Labs/Tests 05/29/25 03:20: WBC 19.6 H, RBC 3.37 L, Hgb 9.2 L, Hct 29.8 L, MCV 88.4, MCH 27.3, MCHC 30.9 L, Plt Count 216, MPV 9.9, Immature Gran % (Auto) 0.900, Neut % (Auto) 91.3 H, Lymph % (Auto) 3.8 L, [place] % (Auto) 3.9, Eos % (Auto) 0.0, Baso % (Auto) 0.1, Absolute Neuts (auto) 17.9 H, Nucleated RBC % 0.2, Sodium 147 H, P otassium 3.2 L, Chloride 104, Carbon Dioxide 30.1, Anion Gap 13, BUN 42 H, Creatinine 0.84, Est GFR (MDRD) Non-Af 76, BUN/Creatinine Ratio 50.2 H, Glucose 108 H, Calcium 9.0 Rhythm: EKG: ECHO: Stress Test: Cardiac Cath: PCI: CT Surgery: Holter monitor: EPS: PPM: CXR: Chest CT Scan: Physical Exam Const no apparent distress Constitutional Narrative: Extubated and somewhat sedated HEENT hearing grossly normal bilaterally Head and Scalp: atraumatic Eyes EOMs intact bilaterally Neck General: normal visual inspection Chest inspection of chest normal and palpation of chest normal Resp normal respiratory effort Auscultation: clear to auscultation bilaterally Cardio regular rate, regular rhythm, S1 normal heart sound and S2 normal heart sound Jugular Venous Distention: JVD Heart Sounds: murmur systolic III/ harsh holo apex and axilla GI normal to inspection, nondistended, normoactive bowel sounds Extremity normal capillary refill and no pedal edema General Extremity: edema bilateral lower extremity Details: mild Peripheral Pulses: Yes pulses 2+ throughout and femoral pulses present Skin no rashes or lesions noted Neuro CN's II-XII intact bilaterally Neuro Narrative: Sedated Psych Appearance: grossly normal and appropriate Assessment & Plan Assessment/Plan (1) Acute hypoxic respiratory failure: PLAN: Patient presents with hypoxic respiratory failure which may be due to a combination of anemia as well as heart failure Echocardiogram demonstrated preserved ejection fraction but with lateral wall hypokinesis suggestive of papillary muscle dysfunction with mitral regurgitation. * * Continue intravenous Lasix (2) CAD (coronary artery disease): QUALIFIERS: Coronary Disease-Associated Artery/Lesion type: [place] artery [place] vs. transplanted heart: [place] heart Associated angina: without angina Qualified Code(s): I25.10 - Atherosclerotic heart disease of [place] coronary artery without angina pectoris PLAN: Patient has known coronary artery disease with mild disease noted in the right coronary artery and status post PCI in January 2025 of a large obtuse marginal branch. * This will need to be reevaluated prior to discharge. * At this particular time patient's has low potassium and white count is going up. Will stabilize the above parameters before proceeding with her left heart catheterization. (3) Cardiac murmur: PLAN: Patient has mitral regurgitation which is at least moderate likely secondary to papillary muscle dysfunction. Will need to evaluate whether this is from an occluded circumflex artery or whether this is from some other etiology. Ultimately this may need to be addressed perhaps with a mitral valve clip. (4) Anemia: PLAN: Patient has a chronic anemia the etiology of which is unclear. This may be exacerbating some of her clinical condition. Will need to discuss this further especially since she is going to be on dual antiplatelet therapy.
[2025-05-29] MEDS: CHLORHEXIDINE GLUC 2% CLOTH 1 EACH TOWELETTE TOPICAL (07:44)
[2025-05-29] MEDS: Potassium Chloride 20mEq/100mL 20 MEQ/100 ML IV.SOLN. 100 MEQ IV BOLUS ×2 (07:59→09:19)
[2025-05-29 08:30] LABS: Base Excess 13 mmol/L (-2 to +2); FI02 21.0; PO2 46 mmHG (75-100); SITE L Brach; SO2 90 % (95-99); Time Given 08:26:20
[2025-05-29] MEDS: Pantoprazole Sodium 40 MG in 0.9% Normal Saline (100mL MB+) 100 ML 300 MG IV (09:22)
--- NOTE | 2025-05-29 10:11 | CASEMGMT ---
Tertiary Insurance review for hospitals In-network with MMO insurance if transfer is recommended is as follows: [facility], [facility], [place], [facility], [facility], [facility], , [place], [facility], [facility], and [facility]. Karie Del Real, Discharge Planning Asst
[2025-05-29 14:10] LABS: Vancomycin, Random Level 15.6 ug/mL (0.0-15.0)
--- NOTE | 2025-05-29 14:34 | PHA.PHARE_ITS ---
Consult Antibiotic Management Pharmacy has been consulted to manage selected antibiotic: Vancomycin Type of Intervention Type of Consult: Follow-up Prior Doses of Antibiotics Prior Doses of Antibiotics Received/Current Regimen: currently being held due to a high trough but the most recent dose was 750mg IV q12h Labs Labs: Sodium 147 mmol/L (133-145) H 05/29/25 03:20 Potassium 3.2 mmol/L (3.3-5.1) L 05/29/25 03:20 Chloride 104 mmol/L (98-108) 05/29/25 03:20 Carbon Dioxide 30.1 mmol/L (21.0-32.0) 05/29/25 03:20 Anion Gap 13 (5-15) 05/29/25 03:20 BUN 42 mg/dL (4-19) H 05/29/25 03:20 Creatinine 0.84 mg/dL (0.70-1.20) 05/29/25 03:20 Est GFR (MDRD) Non-Af 76 (>60) 05/29/25 03:20 BUN/Creatinine Ratio 50.2 RATIO (10-20) H 05/29/25 03:20 Glucose 108 mg/dL (70-99) H 05/29/25 03:20 Vancomycin Trough 21.7 ug/mL (5.0-15.0) H 05/29/25 02:15 Random Vancomycin 15.6 ug/mL (0.0-15.0) H 05/29/25 13:30 Microbiology Microbiology: Microbiology 05/24/25 09:06 Blood Culture (Wb) - Anticubital Left Blood Culture - Final No growth in 5 days. 05/24/25 09:04 Blood Culture (Wb) - Anticubital Right Blood Culture - Final No growth in 5 days. 05/24/25 13:30 Sputum, Tracheal Aspirate Gram Stain - Final 05/24/25 13:30 Sputum, Tracheal Aspirate Respiratory Culture - Final Mixed normal respiratory chilo. No Streptococcus pneumoniae, beta-hemolytic Streptococcus or Staphylococcus aureus isolated. 05/24/25 10:17 Urine, Clean Catch Urine Culture - Final GNR lactose administrative judge 05/24/25 15:15 Urine Catheter - Henson Legionella Antigen - Final 05/24/25 15:15 Urine Catheter - Henson Streptococcus pneumoniae Antigen (M - Final 05/24/25 13:05 Mucosa - Nasopharyngeal Coronavirus COVID-19 PCR - Final 05/24/25 13:05 Mucosa - Nasopharyngeal Respiratory Panel (PCR) - Final Dosing Weight Weight used for dosin.4 kg Estimated Creatinine Clearance Estimated Creatinine Clearance: 61 ml/min Goal Trough Goal Trough: 15-20 mcg/mL Pharmacy Plan for Drug Dosing Pharmacy Plan for Drug Dosing: VANCOMYCIN LEVEL RECEIVED Current Vancomycin Dose: BEING HELD AT THIS TIME Number of Doses Received: Vancomycin RANDOM Level: 15.6 Hours Since Last Dose: 22.5 HRS Renal Function: SCR 0.84, CRCL 61 Renal Function Trend: SCR DOWN FROM 1.00 YESTERDAY AND 1.05 TWO DAYS AGO Vancomycin Plan/Comments: RANDOM LEVEL BACK BELOW 20 SO CAN RESUME DOSING AT NEWLY CALCULATED DOSE OF 1250MG Q24H. WILL CHECK A TROUGH BEFORE THE 3RD DOSE. Pending Level: 05/31 14:30 Pharmacy Service will continue to monitor and adjust dosing as required. Follow-Up Labs Follow-Up Labs: Trough: Vancomycin Date/Time Labs Ordered Labs to be done on [date and time ordered]: 05/31/25 14:30
[2025-05-29] MEDS: Vancomycin HCl 1,250 MG in 0.9% Normal Saline (250mL Bag) 250 ML 167 MG IV (14:47)
[2025-05-29] MEDS: 0.9% Saline Lock 10 ML Syringe IV (14:52)
--- NOTE | 2025-05-29 14:58 | CASEMGMT ---
Social Work Message received from pt's MMO Bulldozer Engineer. If pt needs assistance with dc needs, CM can be reached at [phone]. ANNIE Silva
--- NOTE | 2025-05-29 17:09 | PCM.PN.HOSP ---
Reason for Visit Chief Complaint: shortness of breath Subjective Subjective Patient was seen and examined today, she appears lethargic but in no distress. She is currently on 2 L of oxygen Objective Data Objective Data Vital Signs: Vital Signs Temp Pulse Resp BP Pulse Ox O2 Del Method O2 Flow Rate 99.6 F H 76 10 L 134/64 H 98 Nasal Cannula 2 05/29/25 16:00 05/29/25 16:00 05/29/25 16:00 05/29/25 16:00 05/29/25 16:00 05/29/25 14:00 05/29/25 16:00 FiO2 40 05/29/25 08:00 Oxygen Flow Rate (L/min) 2 Oxygen Delivery Method Nasal Cannula Weight: 67.4 kg Body Mass Index (BMI) 26.3 Intake & Output: Intake and Output for Last 24 Hours 05/27/25 05/28/25 05/29/25 23:59 23:59 23:59 Intake Total 1831.77 / 1848.77 1417.87 / 1417.87 775 / 775 Output Total 3225 / 3225 3500 / 5025 3675 / 3675 Balance -1393.23 / -1376.23 -2082.13 / -3607.13 -2900 / -2900 Lab / Micro Data 05/29/25 03:20 05/29/25 03:20 Labs: Laboratory Results - last 24 hr 05/29/25 02:15: Vancomycin Trough 21.7 H 05/29/25 03:20: WBC 19.6 H, RBC 3.37 L, Hgb 9.2 L, Hct 29.8 L, MCV 88.4, MCH 27.3, MCHC 30.9 L, RDW Std Deviation 55.7 H, RDW Coeff of Gerber 17.3 H, Plt Count 216, MPV 9.9, Immature Gran % (Auto) 0.900, Neut % (Auto) 91.3 H, Lymph % (Auto) 3.8 L, [place] % (Auto) 3.9, Eos % (Auto) 0.0, Baso % (Auto) 0.1, Absolute Neuts (auto) 17.9 H, Absolute Lymphs (auto) 0.74 L, Nucleated RBC % 0.2, Sodium 147 H, Potassium 3.2 L, Chloride 104, Carbon Dioxide 30.1, Anion Gap 13, BUN 42 H, Creatinine 0.84, Estim Creat Clear Calc 61.35, Est GFR (MDRD) Non-Af 76, BUN/Creatinine Ratio 50.2 H, Glucose 108 H, Calcium 9.0 05/29/25 13:30: Random Vancomycin 15.6 H Micro: Microbiology 05/24/25 09:06 Blood Culture (Wb) - Anticubital Left Blood Culture - Final No growth in 5 days. 05/24/25 09:04 Blood Culture (Wb) - Anticubital Right Blood Culture - Final No growth in 5 days. 05/24/25 13:30 Sputum, Tracheal Aspirate Gram Stain - Final 05/24/25 13:30 Sputum, Tracheal Aspirate Respiratory Culture - Final Mixed normal respiratory chilo. No Streptococcus pneumoniae, beta-hemolytic Streptococcus or Staphylococcus aureus isolated. 05/24/25 10:17 Urine, Clean Catch Urine Culture - Final GNR lactose display manager 05/24/25 15:15 Urine Catheter - Henson Legionella Antigen - Final 05/24/25 15:15 Urine Catheter - Henson Streptococcus pneumoniae Antigen (M - Final 05/24/25 13:05 Mucosa - Nasopharyngeal Coronavirus COVID-19 PCR - Final 05/24/25 13:05 Mucosa - Nasopharyngeal Respiratory Panel (PCR) - Final ABG Data ABG results: ABG 05/29/25 08:24 Specimen Type ART Sample Site L Brach pH 7.63 H* Bicarbonate Actual 33.6 H Total CO2 35 Base Excess 13 H O2 Saturation 90 L O2 % 21.0 ABG pCO2 32.0 L ABG pO2 46 L O2 Delivery Device Not entered Vent Mode Not entered Crit Call To/Read Back Yes Blood Gas Notified Whom BROWN Blood Gas Notified Time 08:26:20 Radiography Diagnostic Testing: Radiology Impression Chest X-Ray 05/29/25 07:26 IMPRESSION: No significant pleural effusion is now seen. Stable right jugular central venous catheter. Interval removal of the nasogastric tube and endotracheal tube. Minimal residual pulmonary edema is now seen. Mild residual left lower lobe atelectasis. No focal infiltrate is evident. No pneumothorax is seen. The cardiomediastinal silhouette is within the normal range, without evidence of cardiomegaly. Reading Location: [id number] Physical Exam Narrative Patient appears lethargic Constitutional Narrative: Patient lethargic, she does not appear uncomfortable General Appearance: cooperative, well kempt and well developed Orientation / Consciousness: Patient is lethargic and does not carry on a conversation HEENT normocephalic, head/scalp atraumatic and moist oral mucous membranes Eyes PERRL, EOMs intact bilaterally and conjunctivae normal Neck supple, no JVD and thyroid normal General: trachea midline Resp normal respiratory effort, no retractions, no use of accessory muscles and clear to auscultation bilaterally Auscultation: Negative for rales, rhonchi or wheezes Cardio regular rate, regular rhythm, S1 normal heart sound, S2 normal heart sound, no murmurs, no rub and no gallops GI normal to inspection, nondistended, normoactive bowel sounds, soft to palpation, non-tender and non-distended Extremity no clubbing, cyanosis or edema Skin no rashes or lesions noted General Skin Exam: no breakdown Neuro CN's II-XII intact bilaterally, no focal motor deficits and no sensory deficits noted Neuro Narrative: Patient is lethargic Sensorium / Orientation: Patient is lethargic and does not carry on a conversation Speech: speech normal Psych Patient appears lethargic Assessment & Plan Assessment/Plan (1) Acute hypoxic respiratory failure: (2) COPD exacerbation: PLAN: Plan 1. Acute combined respiratory failure-secondary to COPD exacerbation and community-acquired pneumonia-continue empiric antibiotics, patient remains on aerosol treatments, IV Lasix, and Solu-Medrol. She is currently on nasal cannula oxygen #2 septic shock secondary to community-acquired pneumonia-continue IV antimicrobials, patient is currently off pressor support #3 coronary artery disease-patient may need to undergo a cardiac catheterization when she is more medically stable, cardiology is participating in her care #4 valvular heart disease-patient has mitral regurg, this is not felt to be critical at this time #5 exacerbation of CHF with preserved ejection fraction-patient is on IV Lasix at this time #6 demand ischemia-patient may need to undergo a cardiac catheterization when she becomes more medically stable #7 metabolic encephalopathy-complicates care, management, recovery, and prognosis. Patient appears lethargic today Type II non-STEMI was ruled out, patient is a full code Total clinical time spent by myself addressing the patient's medical issues, reviewing all of her data, and collaborating with patient's care team: 35 minutes Charges/Coding Visit Charges Inpatient E&M: 54724 Subs Hosp L2
[2025-05-30] VITALS (33 sets, daily range): BP systolic 102–138; BP diastolic 42–69; PULSE 70–88; RESP 10–20; TEMP 36.7–37.7; O2SAT 93–100; BMI 25.5
[2025-05-30] MEDS: CHLORHEXIDINE GLUC 2% CLOTH 1 EACH TOWELETTE TOPICAL (05:07)
[2025-05-30] MEDS: Meropenem 1 GM in 0.9% Normal Saline (100mL MB+) 100 ML IV ×3 (05:08→21:59)
--- NOTE | 2025-05-30 06:50 | PCM.PN.INT ---
Assessment & Plan Assessment/Plan (1) Acute hypoxic respiratory failure: PLAN: Plan RECOMMENDATIONS: 1. Continue to wean oxygen to maintain saturations at or above 90%. 2. Start D5W infusion. 3. Repeat ABG this morning and check liver function profile, TSH and ammonia. 4. Continue antibiotics to complete 7 days of therapy. 5. Continue scheduled bronchodilators. 6. Dietary advancement per speech therapy, once mentation improves. 7. Possible cardiac catheterization per cardiology. 8. Encourage incentive spirometer use and mobilize patient as tolerated. IMPRESSIONS: 1. Acute hypoxemic and hypercapnic respiratory failure Improving. Clinical concern for underlying COPD exacerbation related to pneumonia. The patient does have suspected COPD based upon an extensive tobacco abuse history, but has not completed pulmonary function studies yet. Plan to continue current treatment measures. Empiric antibiotics will be continued to complete 7 days of therapy. The patient will be maintained on scheduled bronchodilators. With supportive care, the patient was able to be extubated on May 28. Diuretics were subsequently discontinued given concerns for contraction alkalosis. Her supplemental oxygen will be weaned to maintain saturations at or above 90%. 2. Encephalopathy Most likely metabolic in nature. However, we will plan to obtain follow-up ABG and check TSH, liver function profile and ammonia this morning. Continue current supportive care. 3. Septic shock Resolved. The patient presented to the hospital with sepsis due to possible pneumonia with acute sepsis related organ dysfunction as evidenced by respiratory failure requiring invasive mechanical ventilatory support and lactic acidemia. Although patient initially required vasopressor support, the patient has been weaned from Levophed and remains hemodynamically stable. Antimicrobials will be continued, as noted above. 4. History of recurrent anemia of unclear etiology Continue to monitor blood counts and transfuse if hemoglobin drops below 7 g/dL. Continue PPI therapy as ordered. 5. Hypernatremia Start D5W as ordered. Recheck labs tomorrow morning. 6. History of tobacco dependency/obstructive sleep apnea/history of coronary artery disease status post PCI Complicates care, management, recovery and prognosis. Continue supportive measures as noted above. Cardiology following to assist with medical management and timing for any additional intervention and workup. CODE STATUS: Full code This note was generated with [employer] Burton[employer] software. It may contain incorrect words, spelling, and punctuation that were not noted in checking the note before signing. Subjective Subjective The patient was seen and examined at the bedside this morning. Events from the last 24 hours have been reviewed. The patient continues to have low-grade fevers but remains otherwise hemodynamically stable and is maintaining appropriate oxygen saturations on 2 L/min via nasal cannula. The patient is documented to be overall net -5.7 L for the hospitalization. Her diuretics were discontinued yesterday, along with her corticosteroids. Accordingly, her white blood cell count has decreased to 13,000. Hemoglobin and platelet count are stable. Sodium has increased to 150 with a BUN of 44 and creatinine of 0.78. The patient remains confused and disoriented. Objective Data Objective Data The patient's most recent lab work, culture data and imaging studies have all been personally reviewed. Surface echocardiogram demonstrated normal LV size and function with an ejection fraction of 65%. Infectious workup has been largely unrevealing to date. Vital Signs: Vital Signs Temp Pulse Resp BP Pulse Ox O2 Del Method O2 Flow Rate 99.7 F H 71 12 130/59 H 100 Bi-pap 2 05/30/25 06:00 05/30/25 06:00 05/30/25 06:00 05/30/25 06:00 05/30/25 06:00 05/30/25 06:00 05/29/25 16:00 FiO2 30 05/30/25 06:00 Oxygen Flow Rate (L/min) 2 Oxygen Delivery Method Bi-pap Weight: 144 lb 6.444 oz Body Mass Index (BMI) 25.5 Intake & Output: Intake and Output for Last 24 Hours 05/28/25 05/29/25 05/30/25 23:59 23:59 23:59 Intake Total 1417.87 / 1417.87 875 / 875 100 / 100 Output Total 3500 / 5025 3925 / 3925 250 / 250 Balance -2082.13 / -3607.13 -3050 / -3050 -150 / -150 Lab / Micro Data Attestation: I reviewed the patient's lab results. 05/30/25 05:15 05/30/25 05:15 Labs: Laboratory Results - last 24 hr 05/29/25 13:30: Random Vancomycin 15.6 H Micro: Microbiology 05/24/25 09:06 Blood Culture (Wb) - Anticubital Left Blood Culture - Final No growth in 5 days. 05/24/25 09:04 Blood Culture (Wb) - Anticubital Right Blood Culture - Final No growth in 5 days. 05/24/25 13:30 Sputum, Tracheal Aspirate Gram Stain - Final 05/24/25 13:30 Sputum, Tracheal Aspirate Respiratory Culture - Final Mixed normal respiratory chilo. No Streptococcus pneumoniae, beta-hemolytic Streptococcus or Staphylococcus aureus isolated. 05/24/25 10:17 Urine, Clean Catch Urine Culture - Final GNR lactose masonry contractor 05/24/25 15:15 Urine Catheter - Henson Legionella Antigen - Final 05/24/25 15:15 Urine Catheter - Henson Streptococcus pneumoniae Antigen (M - Final 05/24/25 13:05 Mucosa - Nasopharyngeal Coronavirus COVID-19 PCR - Final 05/24/25 13:05 Mucosa - Nasopharyngeal Respiratory Panel (PCR) - Final ABG Data ABG results: ABG 05/29/25 08:24 Specimen Type ART Sample Site L Brach pH 7.63 H* Bicarbonate Actual 33.6 H Total CO2 35 Base Excess 13 H O2 Saturation 90 L O2 % 21.0 ABG pCO2 32.0 L ABG pO2 46 L O2 Delivery Device Not entered Vent Mode Not entered Crit Call To/Read Back Yes Blood Gas Notified Whom [facility] Blood Gas Notified Time 08:26:20 Radiography Diagnostic Testing: Radiology Impression Chest X-Ray 05/29/25 07:26 IMPRESSION: No significant pleural effusion is now seen. Stable right jugular central venous catheter. Interval removal of the nasogastric tube and endotracheal tube. Minimal residual pulmonary edema is now seen. Mild residual left lower lobe atelectasis. No focal infiltrate is evident. No pneumothorax is seen. The cardiomediastinal silhouette is within the normal range, without evidence of cardiomegaly. Reading Location: [place] [id number] Physical Exam Const alert and no apparent distress General Appearance: lethargic and ill appearing HEENT normocephalic and head/scalp atraumatic Eyes PERRL, EOMs intact bilaterally and conjunctivae normal Neck supple General: trachea midline Chest inspection of chest normal Resp Auscultation: diminished lung sounds; Negative for rales, rhonchi or wheezes Cardio regular rate and regular rhythm Heart Sounds: murmur GI normal to inspection, nondistended, normoactive bowel sounds Extremity General Extremity: edema; Negative for clubbing Skin no rashes or lesions noted Neuro CN's II-XII intact bilaterally and no focal motor deficits Psych Mood & Affect: flat affect Charges/Coding Visit Charges Inpatient E&M: 10536 Subs Hosp L3
[2025-05-30 07:13] LABS: Hematocrit 31.3 % (37-47); Hemoglobin 9.4 g/dL (12.0-15.0); Immature Granulocytes Count 0.090 X10^3/uL (0.0-0.0); Mean Corp Hgb Conc 30.0 g/dL (32-36); Mean Corpuscular Volume 91.5 fL (81-99); Mean Platelet Vol. 11.0 fl (6.2-12.0); NRBC Flagged by Analyzer 0 % (0-5); Platelet Count 215 K/mm3 (150-450); RBC Distribution Width CV 18.1 % (11.6-14.6); RBC Distribution Width SD 60.7 fl (35.1-43.9); Red Blood Count 3.42 M/mm3 (4.2-5.4); White Blood Count 12.9 K/mm3 (4.4-11.0)
[2025-05-30 07:44] LABS: Anion Gap 11 (5-15); BUN 44 mg/dL (4-19); BUN/Creat Ratio 55.9 RATIO (10-20); Calcium,Total 9.0 mg/dL (7.6-11.0); Carbon Dioxide 30.6 mmol/L (21.0-32.0); Chloride 108 mmol/L (98-108); Estimated Creatinine Clearance 62.09 ml/min (50-250); Glucose 99 mg/dL (70-99); Potassium 3.7 mmol/L (3.3-5.1)
[2025-05-30 08:05] LABS: Allen Test Positive; Base Excess 9 mmol/L (-2 to +2); FI02 2.0; PO2 83 mmHG (75-100); SITE L Brach; SO2 97 % (95-99)
[2025-05-30] MEDS: Dextrose 5%-Water (1000mL Bag) 1,000 ML 75 ML IV ×2 (08:35→21:54)
[2025-05-30 08:47] LABS: Ammonia 17.3 umol/L (11-51)
[2025-05-30 08:49] LABS: AST(SGOT) 13 U/L (<=31); Alanine Aminotransfer ALT/SGPT 28 U/L (<=34); Albumin, Serum 3.8 g/dL (3.4-4.8); Alkaline Phosphatase 67 U/L (35-104); Bilirubin, Direct 0.32 mg/dL (0.00-0.30); Globulin 2.2 g/dL (2.2-4.2)
--- NOTE | 2025-05-30 11:10 | NURSING ---
Patient left unit for heart cath, report given to laboratory mechanic helper staff
--- NOTE | 2025-05-30 11:32 | CASEMGMT ---
Discharge Planning A list of?SNF providers including quality and resource use data and consistent with the patient's preferred geographic region, medical needs, and insurance network was created in [employer].? This list was provided to the RN JARROD. Karie Del Real, Discharge Planning Asst.
--- NOTE | 2025-05-30 12:20 | PN.CARD_ITS ---
Subjective Subjective Pt seen and evaluated Objective Data Vital Signs: Vital Signs Temp Pulse Resp BP Pulse Ox O2 Del Method O2 Flow Rate 99.7 F H 81 15 116/69 99 Nasal Cannula 2 05/30/25 10:00 05/30/25 11:18 05/30/25 10:50 05/30/25 10:00 05/30/25 10:00 05/30/25 10:00 05/30/25 10:55 FiO2 30 05/30/25 06:50 Oxygen Flow Rate (L/min) 2 Oxygen Delivery Method Nasal Cannula Weight: 144 lb 6.444 oz Body Mass Index (BMI) 25.5 Intake & Output: Intake and Output for Last 24 Hours 05/28/25 05/29/25 05/30/25 23:59 23:59 23:59 Intake Total 1417.87 / 1417.87 875 / 875 200 / 200 Output Total 3500 / 5025 3925 / 3925 250 / 250 Balance -2082.13 / -3607.13 -3050 / -3050 -50 / -50 Lab / Micro Data 05/30/25 05:15 05/30/25 05:15 Labs: Laboratory Results - last 24 hr 05/29/25 13:30: Random Vancomycin 15.6 H 05/30/25 05:15: WBC 12.9 H, RBC 3.42 L, Hgb 9.4 L, Hct 31.3 L, MCV 91.5, MCH 27.5, MCHC 30.0 L, RDW Std Deviation 60.7 H, RDW Coeff of Gerber 18.1 H, Plt Count 215, MPV 11.0, Immature Gran % (Auto) 0.700, Neut % (Auto) 83.8 H, Lymph % (Auto) 8.9 L, [place] % (Auto) 6.3, Eos % (Auto) 0.1, Baso % (Auto) 0.2, Absolute Neuts (auto) 10.8 H, Absolute Lymphs (auto) 1.15, Nucleated RBC % 0, Sodium 150 H, Potassium 3.7, Chloride 108, Carbon Dioxide 30.6, Anion Gap 11, BUN 44 H, Creatinine 0.78, Estim Creat Clear Calc 62.09, Est GFR (MDRD) Non-Af 83, B UN/Creatinine Ratio 55.9 H, Glucose 99, Calcium 9.0, Total Bilirubin 0.64, D irect Bilirubin 0.32 H, AST 13, ALT 28, Alkaline Phosphatase 67, Total Protein 6.0, Albumin 3.8, Globulin 2.2, TSH 2.560 05/30/25 07:55: Ammonia 17.3 Micro: Microbiology 05/24/25 09:06 Blood Culture (Wb) - Anticubital Left Blood Culture - Final No growth in 5 days. 05/24/25 09:04 Blood Culture (Wb) - Anticubital Right Blood Culture - Final No growth in 5 days. ABG Data ABG results: ABG 05/30/25 08:01 Specimen Type ART Sample Site L Brach pH 7.52 H Bicarbonate Actual 31.3 H Total CO2 33 Base Excess 9 H O2 Saturation 97 O2 % 2.0 ABG pCO2 38.3 ABG pO2 83 Kel Test Positive O2 Delivery Device Cannula Vent Mode Not entered Cardiology Labs/Tests 05/30/25 05:15: WBC 12.9 H, RBC 3.42 L, Hgb 9.4 L, Hct 31.3 L, MCV 91.5, MCH 27.5, MCHC 30.0 L, Plt Count 215, MPV 11.0, Immature Gran % (Auto) 0.700, Neut % (Auto) 83.8 H, Lymph % (Auto) 8.9 L, [place] % (Auto) 6.3, Eos % (Auto) 0.1, Baso % (Auto) 0.2, Absolute Neuts (auto) 10.8 H, Nucleated RBC % 0, Sodium 150 H, Potassium 3.7, Chloride 108, Carbon Dioxide 30.6, Anion Gap 11, BUN 44 H, Creatinine 0.78, Est GFR (MDRD) Non-Af 83, BUN/Creatinine Ratio 55.9 H, Glucose 99, Calcium 9.0, Total Bilirubin 0.64, Direct Bilirubin 0.32 H 05/30/25 08:01: pH 7.52 H, Bicarbonate Actual 31.3 H, Base Excess 9 H, O2 Saturation 97, ABG pCO2 38.3, ABG pO2 83, Kel Test Positive Rhythm: EKG: ECHO: Stress Test: Cardiac Cath: PCI: CT Surgery: Holter monitor: EPS: PPM: CXR: Chest CT Scan: Physical Exam Const no apparent distress HEENT hearing grossly normal bilaterally Head and Scalp: atraumatic Eyes EOMs intact bilaterally Neck General: normal visual inspection Chest inspection of chest normal and palpation of chest normal Resp normal respiratory effort Auscultation: clear to auscultation bilaterally Cardio regular rate, regular rhythm, S1 normal heart sound and S2 normal heart sound Jugular Venous Distention: JVD Heart Sounds: murmur systolic III/ harsh holo apex and axilla GI normal to inspection, nondistended, normoactive bowel sounds Extremity normal capillary refill and no pedal edema General Extremity: edema bilateral lower extremity Details: mild Peripheral Pulses: Yes pulses 2+ throughout and femoral pulses present Skin no rashes or lesions noted Neuro CN's II-XII intact bilaterally Neuro Narrative: Sedated Psych Appearance: grossly normal and appropriate Assessment & Plan Assessment/Plan (1) Acute hypoxic respiratory failure: PLAN: Patient presents with hypoxic respiratory failure which may be due to a combination of anemia as well as heart failure Echocardiogram demonstrated preserved ejection fraction but with lateral wall hypokinesis suggestive of papillary muscle dysfunction with mitral regurgitation. * (2) CAD (coronary artery disease): QUALIFIERS: Coronary Disease-Associated Artery/Lesion type: [place] artery [place] vs. transplanted heart: [place] heart Associated angina: without angina Qualified Code(s): I25.10 - Atherosclerotic heart disease of [place] coronary artery without angina pectoris PLAN: Patient has known coronary artery disease with mild disease noted in the right coronary artery and status post PCI in January 2025 of a large obtuse marginal branch. * This will need to be reevaluated prior to discharge. * Cath demonstrtates patent stents (3) Cardiac murmur: PLAN: Patient has mitral regurgitation which is at least moderate likely secondary to papillary muscle dysfunction. Cardiac catheterization demonstrated patency of the stents and moderate mitral regurgitation. I will recommend a PAULINE early next week for further evaluation. Ultimately this may need to be addressed perhaps with a mitral valve clip. (4) Anemia: PLAN: Patient has a chronic anemia the etiology of which is unclear. This may be exacerbating some of her clinical condition. Will need to discuss this further especially since she is going to be on dual antiplatelet therapy.
--- NOTE | 2025-05-30 12:50 | CASEMGMT ---
NICOLA GARAY NOTE: Pt has returned from radiographer cardiac catheterization. No intervention was needed. PAULINE recommended by cardiology and to be done early next week. PT/OT evals reviewed. Pt mod assist of 2. NICOLA GARAY to waiting room to talk w/pt's family (, son, and [id number]) and discussed discharge planning. They would like SNF @ discharge. SNF list that was prepared by Karie, discharge compounding assistant, provided to family to review. Their 1st choice is [facility]. They will review the list further and aware to provide 2 other preferences in the event [facility] unable to accept. Alison, [facility] home coordinator, notified of referral. She states unsure if they can accept pt yet and will review again when pt is closer to being medically ready for discharge. Leopoldo GARCIAN NICOLA CM
[2025-05-30] MEDS: Pantoprazole Sodium 40 MG in 0.9% Normal Saline (100mL MB+) 100 ML 300 MG IV (13:10)
[2025-05-30] MEDS: Senna/Docusate Sodium 1 Tablet 2 TABLET PO ×2 (14:56→21:51)
[2025-05-30] MEDS: Vancomycin HCl 1,250 MG in 0.9% Normal Saline (250mL Bag) 250 ML 167 MG IV (14:57)
--- NOTE | 2025-05-30 16:59 | PCM.PN.HOSP ---
Reason for Visit Chief Complaint: shortness of breath Subjective Subjective Patient was seen and examined today, she underwent a cardiac catheterization that showed no occlusive coronary disease and a normal LV function. I talked briefly with cardiology about her care. Objective Data Objective Data Vital Signs: Vital Signs Temp Pulse Resp BP Pulse Ox O2 Del Method O2 Flow Rate 99.5 F H 78 16 102/43 L 93 Room Air 2 05/30/25 16:00 05/30/25 16:30 05/30/25 16:00 05/30/25 16:30 05/30/25 16:00 05/30/25 16:00 05/30/25 10:55 FiO2 30 05/30/25 06:50 Oxygen Flow Rate (L/min) 2 Oxygen Delivery Method Room Air Weight: 65.5 kg Body Mass Index (BMI) 25.5 Intake & Output: Intake and Output for Last 24 Hours 05/28/25 05/29/25 05/30/25 23:59 23:59 23:59 Intake Total 1417.87 / 1417.87 875 / 875 300 / 300 Output Total 3500 / 5025 3925 / 3925 650 / 650 Balance -2082.13 / -3607.13 -3050 / -3050 -350 / -350 Lab / Micro Data 05/30/25 05:15 05/30/25 05:15 Labs: Laboratory Results - last 24 hr 05/30/25 05:15: WBC 12.9 H, RBC 3.42 L, Hgb 9.4 L, Hct 31.3 L, MCV 91.5, MCH 27.5, MCHC 30.0 L, RDW Std Deviation 60.7 H, RDW Coeff of Gerber 18.1 H, Plt Count 215, MPV 11.0, Immature Gran % (Auto) 0.700, Neut % (Auto) 83.8 H, Lymph % (Auto) 8.9 L, [place] % (Auto) 6.3, Eos % (Auto) 0.1, Baso % (Auto) 0.2, Absolute Neuts (auto) 10.8 H, Absolute Lymphs (auto) 1.15, Nucleated RBC % 0, Sodium 150 H, Potassium 3.7, Chloride 108, Carbon Dioxide 30.6, Anion Gap 11, BUN 44 H, Creatinine 0.78, Estim Creat Clear Calc 62.09, Est GFR (MDRD) Non-Af 83, BUN/Creatinine Ratio 55.9 H, Glucose 99, Calcium 9.0, Total Bilirubin 0.64, Direct Bilirubin 0.32 H, AST 13, ALT 28, Alkaline Phosphatase 67, Total Protein 6.0, Albumin 3.8, Globulin 2.2, TSH 2.560 05/30/25 07:55: Ammonia 17.3 Micro: Microbiology 05/24/25 09:06 Blood Culture (Wb) - Anticubital Left Blood Culture - Final No growth in 5 days. 05/24/25 09:04 Blood Culture (Wb) - Anticubital Right Blood Culture - Final No growth in 5 days. 05/24/25 13:30 Sputum, Tracheal Aspirate Gram Stain - Final 05/24/25 13:30 Sputum, Tracheal Aspirate Respiratory Culture - Final Mixed normal respiratory chilo. No Streptococcus pneumoniae, beta-hemolytic Streptococcus or Staphylococcus aureus isolated. 05/24/25 10:17 Urine, Clean Catch Urine Culture - Final GNR lactose security operations analyst 05/24/25 15:15 Urine Catheter - Henson Legionella Antigen - Final 05/24/25 15:15 Urine Catheter - Henson Streptococcus pneumoniae Antigen (M - Final 05/24/25 13:05 Mucosa - Nasopharyngeal Coronavirus COVID-19 PCR - Final 05/24/25 13:05 Mucosa - Nasopharyngeal Respiratory Panel (PCR) - Final ABG Data ABG results: ABG 05/30/25 08:01 Specimen Type ART Sample Site L Brach pH 7.52 H Bicarbonate Actual 31.3 H Total CO2 33 Base Excess 9 H O2 Saturation 97 O2 % 2.0 ABG pCO2 38.3 ABG pO2 83 Kel Test Positive O2 Delivery Device Cannula Vent Mode Not entered Physical Exam Narrative Patient appears lethargic Constitutional Narrative: Patient lethargic, she does not appear uncomfortable General Appearance: cooperative, well kempt and well developed Orientation / Consciousness: Patient is lethargic and does not carry on a conversation HEENT normocephalic, head/scalp atraumatic and moist oral mucous membranes Eyes PERRL, EOMs intact bilaterally and conjunctivae normal Neck supple, no JVD and thyroid normal General: trachea midline Resp normal respiratory effort, no retractions, no use of accessory muscles and clear to auscultation bilaterally Auscultation: Negative for rales, rhonchi or wheezes Cardio regular rate, regular rhythm, S1 normal heart sound, S2 normal heart sound, no murmurs, no rub and no gallops GI normal to inspection, nondistended, normoactive bowel sounds, soft to palpation, non-tender and non-distended Extremity no clubbing, cyanosis or edema Skin no rashes or lesions noted General Skin Exam: no breakdown Neuro CN's II-XII intact bilaterally, no focal motor deficits and no sensory deficits noted Neuro Narrative: Patient is lethargic Sensorium / Orientation: Patient is lethargic and does not carry on a conversation Speech: speech normal Psych Patient appears lethargic Assessment & Plan Assessment/Plan (1) Acute hypoxic respiratory failure: (2) COPD exacerbation: PLAN: Plan 1. Acute combined respiratory failure-secondary to COPD exacerbation and community-acquired pneumonia-continue empiric antibiotics, patient remains on aerosol treatments. She is currently on nasal cannula oxygen #2 septic shock secondary to community-acquired pneumonia-continue IV antimicrobials, patient is currently off pressor support #3 coronary artery disease-cardiac catheterization today showed no occlusive coronary disease #4 valvular heart disease-patient has mitral regurg, this is not felt to be critical at this time #5 exacerbation of CHF with preserved ejection fraction-patient is on IV Lasix at this time #6 demand ischemia-patient does not have occlusive coronary disease #7 metabolic encephalopathy-complicates care, management, recovery, and prognosis. Patient appears lethargic today Type II non-STEMI was ruled out, patient is a full code Total clinical time spent by myself addressing the patient's medical issues, reviewing all of her data, and collaborating with patient's care team: 35 minutes Charges/Coding Visit Charges Inpatient E&M: 82348 Subs Hosp L2
[2025-05-31] VITALS (15 sets, daily range): BP systolic 96–121; BP diastolic 53–62; PULSE 63–90; RESP 12–20; TEMP 36.3–36.8; O2SAT 91–100; BMI 26.9
[2025-05-31 04:04] LABS: Hematocrit 28.6 % (37-47); Hemoglobin 8.6 g/dL (12.0-15.0); Immature Granulocytes Count 0.090 X10^3/uL (0.0-0.0); Mean Corp Hgb Conc 30.1 g/dL (32-36); Mean Corpuscular Volume 90.2 fL (81-99); Mean Platelet Vol. 10.0 fl (6.2-12.0); NRBC Flagged by Analyzer 0 % (0-5); Platelet Count 194 K/mm3 (150-450); RBC Distribution Width CV 17.9 % (11.6-14.6); RBC Distribution Width SD 59.9 fl (35.1-43.9); Red Blood Count 3.17 M/mm3 (4.2-5.4); White Blood Count 14.5 K/mm3 (4.4-11.0)
[2025-05-31 04:57] LABS: Anion Gap 7 (5-15); BUN 35 mg/dL (4-19); BUN/Creat Ratio 56.6 RATIO (10-20); Calcium,Total 8.4 mg/dL (7.6-11.0); Carbon Dioxide 29.2 mmol/L (21.0-32.0); Chloride 103 mmol/L (98-108); Estimated Creatinine Clearance 62.09 ml/min (50-250); Glucose 119 mg/dL (70-99); Potassium 3.4 mmol/L (3.3-5.1)
[2025-05-31] MEDS: Meropenem 1 GM in 0.9% Normal Saline (100mL MB+) 100 ML IV ×2 (05:36→13:24)
--- NOTE | 2025-05-31 07:47 | PN.CC_ITS ---
Assessment & Plan Assessment/Plan (1) Acute hypoxic respiratory failure: PLAN: Plan RECOMMENDATIONS: 1. Continue to wean oxygen to maintain saturations at or above 90%. 2. Stop D5W given normalization of sodium. 3. Continue antibiotics to complete 7 days of therapy. 4. Continue scheduled bronchodilators. 5. Encourage incentive spirometer use and mobilize patient as tolerated. 6. Will sign off from a critical care perspective. Please call with any additional questions. IMPRESSIONS: 1. Acute hypoxemic and hypercapnic respiratory failure Improving. Clinical concern for underlying COPD exacerbation related to pneumonia. The patient does have suspected COPD based upon an extensive tobacco abuse history, but has not completed pulmonary function studies yet. Plan to continue current treatment measures. Empiric antibiotics will be continued to complete 7 days of therapy. The patient will be maintained on scheduled bronchodilators. With supportive care, the patient was able to be extubated on May 28. Diuretics were subsequently discontinued given concerns for contraction alkalosis. Her supplemental oxygen will be weaned to maintain saturations at or above 90%. Continue to encourage incentive spirometer use and mobilize patient as tolerated. 2. Encephalopathy Improving. Most likely metabolic in nature. TSH, liver function profile and ammonia were all within normal limits. Continue supportive care as noted above. 3. Septic shock Resolved. The patient presented to the hospital with sepsis due to possible pneumonia with acute sepsis related organ dysfunction as evidenced by respiratory failure requiring invasive mechanical ventilatory support and lactic acidemia. Although patient initially required vasopressor support, the patient has been weaned from Levophed and remains hemodynamically stable. Antimicrobials will be continued, as noted above. 4. History of recurrent anemia of unclear etiology Continue to monitor blood counts and transfuse if hemoglobin drops below 7 g/dL. Continue PPI therapy as ordered. 5. History of tobacco dependency/obstructive sleep apnea/history of coronary artery disease status post PCI Complicates care, management, recovery and prognosis. Continue supportive measures as noted above. Cardiology following to assist with medical management and timing for any additional intervention and workup. CODE STATUS: Full code This note was generated with Sapho dictation software. It may contain incorrect words, spelling, and punctuation that were not noted in checking the note before signing. Subjective Subjective The patient was seen and examined at the bedside this morning. Events from the last 24 hours have been reviewed. The patient is currently afebrile, hemodynamically stable and maintaining appropriate oxygen saturations on 1 L/min via nasal cannula. The patient is documented to be overall net -4.1 L for the hospitalization. White blood cell count is stable at 14,000. Hemoglobin was noted to be 8.6 g/dL. Creatinine is within normal limits. The patient reported this morning that she was hungry and was requesting breakfast. Objective Data Objective Data The patient's most recent lab work, culture data and imaging studies have all been personally reviewed. Surface echocardiogram demonstrated normal LV size and function with an ejection fraction of 65%. Infectious workup has been largely unrevealing to date. Vital Signs: Vital Signs Temp Pulse Resp BP Pulse Ox O2 Del Method O2 Flow Rate 97.8 F 63 18 96/56 L 98 Nasal Cannula 1 05/31/25 06:00 05/31/25 07:04 05/31/25 07:04 05/31/25 06:00 05/31/25 07:04 05/31/25 07:04 05/31/25 07:04 FiO2 30 05/31/25 06:00 Oxygen Flow Rate (L/min) 1 Oxygen Delivery Method Nasal Cannula Weight: 151 lb 14.376 oz Body Mass Index (BMI) 26.9 Intake & Output: Intake and Output for Last 24 Hours 05/29/25 05/30/25 05/31/25 23:59 23:59 23:59 Intake Total 875 / 875 1673.75 / 1673.75 100 / 100 Output Total 3925 / 3925 1000 / 1000 150 / 150 Balance -3050 / -3050 673.75 / 673.75 -50 / -50 Lab / Micro Data Attestation: I reviewed the patient's lab results. 05/31/25 03:55 05/31/25 03:55 Labs: Laboratory Results - last 24 hr 05/30/25 05:15: Total Bilirubin 0.64, Direct Bilirubin 0.32 H, AST 13, ALT 28, Alkaline Phosphatase 67, Total Protein 6.0, Albumin 3.8, Globulin 2.2, TSH 2.560 05/30/25 07:55: Ammonia 17.3 05/31/25 03:55: WBC 14.5 H, RBC 3.17 L, Hgb 8.6 L, Hct 28.6 L, MCV 90.2, MCH 27.1, MCHC 30.1 L, RDW Std Deviation 59.9 H, RDW Coeff of [place] 17.9 H, Plt Count 194, MPV 10.0, Immature Gran % (Auto) 0.600, Neut % (Auto) 82.6 H, Lymph % (Auto) 10.6 L, [place] % (Auto) 5.4, Eos % (Auto) 0.7, Baso % (Auto) 0.1, Absolute Neuts (auto) 12.0 H, Absolute Lymphs (auto) 1.54, Nucleated RBC % 0, Sodium 140, Potassium 3.4, Chloride 103, Carbon Dioxide 29.2, Anion Gap 7, BUN 35 H, C reatinine 0.63 L, Estim Creat Clear Calc 62.09, Est GFR (MDRD) Non-Af 97, B UN/Creatinine Ratio 56.6 H, Glucose 119 H, Calcium 8.4 Micro: Microbiology 05/24/25 09:06 Blood Culture (Wb) - Anticubital Left Blood Culture - Final No growth in 5 days. 05/24/25 09:04 Blood Culture (Wb) - Anticubital Right Blood Culture - Final No growth in 5 days. 05/24/25 13:30 Sputum, Tracheal Aspirate Gram Stain - Final 05/24/25 13:30 Sputum, Tracheal Aspirate Respiratory Culture - Final Mixed normal respiratory chilo. No Streptococcus pneumoniae, beta-hemolytic Streptococcus or Staphylococcus aureus isolated. 05/24/25 10:17 Urine, Clean Catch Urine Culture - Final GNR lactose value stream leader 05/24/25 15:15 Urine Catheter - Henson Legionella Antigen - Final 05/24/25 15:15 Urine Catheter - Henson Streptococcus pneumoniae Antigen (M - Final 05/24/25 13:05 Mucosa - Nasopharyngeal Coronavirus COVID-19 PCR - Final 05/24/25 13:05 Mucosa - Nasopharyngeal Respiratory Panel (PCR) - Final ABG Data ABG results: ABG 05/30/25 08:01 Specimen Type ART Sample Site L Brach pH 7.52 H Bicarbonate Actual 31.3 H Total CO2 33 Base Excess 9 H O2 Saturation 97 O2 % 2.0 ABG pCO2 38.3 ABG pO2 83 Kel Test Positive O2 Delivery Device Cannula Vent Mode Not entered Radiography Diagnostic Testing: Radiology Impression Chest X-Ray 05/29/25 07:26 IMPRESSION: No significant pleural effusion is now seen. Stable right jugular central venous catheter. Interval removal of the nasogastric tube and endotracheal tube. Minimal residual pulmonary edema is now seen. Mild residual left lower lobe atelectasis. No focal infiltrate is evident. No pneumothorax is seen. The cardiomediastinal silhouette is within the normal range, without evidence of cardiomegaly. Reading Location: [place] [id number] Physical Exam Const alert and no apparent distress Constitutional Narrative: More alert and interactive this morning. General Appearance: cooperative and ill appearing HEENT normocephalic and head/scalp atraumatic Eyes PERRL, EOMs intact bilaterally and conjunctivae normal Neck supple General: trachea midline Chest inspection of chest normal Resp Auscultation: diminished lung sounds; Negative for rales, rhonchi or wheezes Cardio regular rate and regular rhythm Heart Sounds: murmur GI normal to inspection, nondistended, normoactive bowel sounds Extremity General Extremity: edema; Negative for clubbing Skin no rashes or lesions noted Neuro CN's II-XII intact bilaterally and no focal motor deficits Psych Mood & Affect: flat affect Charges/Coding Visit Charges Inpatient E&M: 52810 Subs Hosp L2
[2025-05-31] MEDS: Senna/Docusate Sodium 1 Tablet 2 TABLET PO ×2 (09:41→21:37)
[2025-05-31] MEDS: Pantoprazole Sodium 40 MG in 0.9% Normal Saline (100mL MB+) 100 ML 300 MG IV (09:42)
[2025-05-31] MEDS: CHLORHEXIDINE GLUC 2% CLOTH 1 EACH TOWELETTE TOPICAL (09:43)
[2025-05-31] MEDS: Ensure Plus High Protein 120 ML LIQUID PO ×2 (09:48→18:02)
[2025-05-31 15:23] LABS: Vancomycin, Trough Level 11.8 ug/mL (5.0-15.0)
--- NOTE | 2025-05-31 19:23 | PCM.PN.HOSP ---
Reason for Visit Chief Complaint: shortness of breath Subjective Subjective Patient was seen and examined today, she is more alert and appropriate. Patient appears to be stable for transfer to PCU. She is currently on room air and has received 8 days of antibiotic treatment, I stopped her antibiotics today Objective Data Objective Data Vital Signs: Vital Signs Temp Pulse Resp BP Pulse Ox O2 Del Method O2 Flow Rate 97.7 F L 90 18 108/60 95 Room Air 1 05/31/25 17:15 05/31/25 19:00 05/31/25 17:15 05/31/25 17:15 05/31/25 17:15 05/31/25 17:15 05/31/25 11:31 FiO2 30 05/31/25 06:00 Oxygen Flow Rate (L/min) 1 Oxygen Delivery Method Room Air Weight: 68.9 kg Body Mass Index (BMI) 26.9 Intake & Output: Intake and Output for Last 24 Hours 05/29/25 05/30/25 05/31/25 23:59 23:59 23:59 Intake Total 875 / 875 1673.75 / 1673.75 1197 / 1197 Output Total 3925 / 3925 1000 / 1000 400 / 400 Balance -3050 / -3050 673.75 / 673.75 797 / 797 Lab / Micro Data 05/31/25 03:55 05/31/25 03:55 Labs: Laboratory Results - last 24 hr 05/31/25 03:55: WBC 14.5 H, RBC 3.17 L, Hgb 8.6 L, Hct 28.6 L, MCV 90.2, MCH 27.1, MCHC 30.1 L, RDW Std Deviation 59.9 H, RDW Coeff of [place] 17.9 H, Plt Count 194, MPV 10.0, Immature Gran % (Auto) 0.600, Neut % (Auto) 82.6 H, Lymph % (Auto) 10.6 L, [place] % (Auto) 5.4, Eos % (Auto) 0.7, Baso % (Auto) 0.1, Absolute Neuts (auto) 12.0 H, Absolute Lymphs (auto) 1.54, Nucleated RBC % 0, Sodium 140, Potassium 3.4, Chloride 103, Carbon Dioxide 29.2, Anion Gap 7, BUN 35 H, Creatinine 0.63 L, Estim Creat Clear Calc 62.09, Est GFR (MDRD) Non-Af 97, BUN/Creatinine Ratio 56.6 H, Glucose 119 H, Calcium 8.4 05/31/25 13:30: Vancomycin Trough 11.8 Micro: Microbiology 05/24/25 09:06 Blood Culture (Wb) - Anticubital Left Blood Culture - Final No growth in 5 days. 05/24/25 09:04 Blood Culture (Wb) - Anticubital Right Blood Culture - Final No growth in 5 days. 05/24/25 13:30 Sputum, Tracheal Aspirate Gram Stain - Final 05/24/25 13:30 Sputum, Tracheal Aspirate Respiratory Culture - Final Mixed normal respiratory chilo. No Streptococcus pneumoniae, beta-hemolytic Streptococcus or Staphylococcus aureus isolated. 05/24/25 10:17 Urine, Clean Catch Urine Culture - Final GNR lactose travel services professional 05/24/25 15:15 Urine Catheter - Henson Legionella Antigen - Final 05/24/25 15:15 Urine Catheter - Henson Streptococcus pneumoniae Antigen (M - Final 05/24/25 13:05 Mucosa - Nasopharyngeal Coronavirus COVID-19 PCR - Final 05/24/25 13:05 Mucosa - Nasopharyngeal Respiratory Panel (PCR) - Final Physical Exam Const alert, oriented x3, no apparent distress and average body habitus General Appearance: cooperative, well kempt and well developed Orientation / Consciousness: awake, oriented to person, oriented to place and oriented to time HEENT normocephalic and head/scalp atraumatic Mouth: dry mucous membranes Eyes PERRL, EOMs intact bilaterally and conjunctivae normal Neck supple, no JVD, thyroid normal and no carotid bruits General: trachea midline Resp normal respiratory effort, no retractions, no use of accessory muscles and clear to auscultation bilaterally Auscultation: Negative for rales, rhonchi or wheezes Cardio regular rate, regular rhythm, S1 normal heart sound, S2 normal heart sound, no murmurs, no rub and no gallops GI normal to inspection, nondistended, normoactive bowel sounds, soft to palpation, non-tender and non-distended Extremity no clubbing, cyanosis or edema Skin no rashes or lesions noted General Skin Exam: no breakdown Neuro oriented x3, CN's II-XII intact bilaterally, no focal motor deficits and no sensory deficits noted Sensorium / Orientation: awake and alert Speech: speech normal Psych affect normal Assessment & Plan Assessment/Plan (1) COPD exacerbation: (2) Acute hypoxic respiratory failure: PLAN: Plan 1. Acute combined respiratory failure-secondary to COPD exacerbation and community-acquired pneumonia-patient finished a course of antibiotics, she is currently on room air #2 septic shock secondary to community-acquired pneumonia-patient has completed a course of antibiotics #3 coronary artery disease-cardiac catheterization today showed no occlusive coronary disease #4 valvular heart disease-patient has mitral regurg, this is not felt to be critical at this time #5 exacerbation of CHF with preserved ejection fraction-patient is on IV Lasix at this time #6 demand ischemia-patient does not have occlusive coronary disease #7 metabolic encephalopathy-patient appears to be at her baseline today, she is not lethargic Type II non-STEMI was ruled out, patient is a full code Total clinical time spent by myself addressing the patient's medical issues, reviewing all of her data, and collaborating with patient's care team: 35 minutes Charges/Coding Visit Charges Inpatient E&M: 82372 Subs Hosp L2
[2025-06-01] VITALS (11 sets, daily range): BP systolic 103–114; BP diastolic 50–62; PULSE 64–80; RESP 12–19; TEMP 36.7–37.2; O2SAT 92–100; BMI 26.1
[2025-06-01] MEDS: Senna/Docusate Sodium 1 Tablet 2 TABLET PO (09:47)
[2025-06-01] MEDS: Pantoprazole Sodium 40 MG in 0.9% Normal Saline (100mL MB+) 100 ML 330 MG IV (11:04)
[2025-06-01] MEDS: 0.9% Normal Saline (250mL Bag) 250 ML 15 ML IV (11:05)
[2025-06-01] MEDS: 0.9% Saline Lock 10 ML Syringe IV (11:06)
[2025-06-01 12:23] LABS: Hematocrit 33.6 % (37-47); Hemoglobin 10.2 g/dL (12.0-15.0)
[2025-06-01] MEDS: Ensure Plus High Protein 120 ML LIQUID PO ×2 (14:10→20:12)
--- NOTE | 2025-06-01 14:10 | PCM.PN.HOSP ---
Reason for Visit Chief Complaint: shortness of breath Subjective Subjective Patient was seen examined today, she is concerned about her hemoglobin which has been low at times. I ordered an H&H today her hemoglobin was 10.2. Patient is going to undergo PAULINE for evaluation of her mitral valve on 06/03/2025, it is likely she will need to go to a skilled care facility for short-term rehab services due to generalized weakness according to manager social. This was recommendation according to physical therapy. Objective Data Objective Data Vital Signs: Vital Signs Temp Pulse Resp BP Pulse Ox O2 Del Method O2 Flow Rate 98.0 F 64 18 103/50 L 92 Room Air 10 06/01/25 09:43 06/01/25 11:00 06/01/25 11:00 06/01/25 09:43 06/01/25 09:52 06/01/25 09:52 06/01/25 04:00 FiO2 30 06/01/25 04:00 Oxygen Flow Rate (L/min) 10 Oxygen Delivery Method Room Air Weight: 66.9 kg Body Mass Index (BMI) 26.1 Intake & Output: Intake and Output for Last 24 Hours 05/30/25 05/31/25 06/01/25 23:59 23:59 23:59 Intake Total 1673.75 / 1673.75 1197 / 1197 102.50 / 102.50 Output Total 1000 / 1000 400 / 400 Balance 673.75 / 673.75 797 / 797 102.50 / 102.50 Lab / Micro Data 06/01/25 12:16 05/31/25 03:55 Labs: Laboratory Results - last 24 hr 05/31/25 13:30: Vancomycin Trough 11.8 06/01/25 12:16: Hgb 10.2 L, Hct 33.6 L Micro: Microbiology 05/24/25 09:06 Blood Culture (Wb) - Anticubital Left Blood Culture - Final No growth in 5 days. 05/24/25 09:04 Blood Culture (Wb) - Anticubital Right Blood Culture - Final No growth in 5 days. 05/24/25 13:30 Sputum, Tracheal Aspirate Gram Stain - Final 05/24/25 13:30 Sputum, Tracheal Aspirate Respiratory Culture - Final Mixed normal respiratory chilo. No Streptococcus pneumoniae, beta-hemolytic Streptococcus or Staphylococcus aureus isolated. 05/24/25 10:17 Urine, Clean Catch Urine Culture - Final GNR lactose home mortgage disclosure act specialist 05/24/25 15:15 Urine Catheter - Henson Legionella Antigen - Final 05/24/25 15:15 Urine Catheter - Henson Streptococcus pneumoniae Antigen (M - Final 05/24/25 13:05 Mucosa - Nasopharyngeal Coronavirus COVID-19 PCR - Final 05/24/25 13:05 Mucosa - Nasopharyngeal Respiratory Panel (PCR) - Final Physical Exam Narrative alert, oriented x3, no apparent distress and average body habitus General Appearance: cooperative, well kempt and well developed Orientation / Consciousness: awake, oriented to person, oriented to place and oriented to time HEENT normocephalic and head/scalp atraumatic Mouth: dry mucous membranes Eyes PERRL, EOMs intact bilaterally and conjunctivae normal Neck supple, no JVD, thyroid normal and no carotid bruits General: trachea midline Resp normal respiratory effort, no retractions, no use of accessory muscles and clear to auscultation bilaterally Auscultation: Negative for rales, rhonchi or wheezes Cardio regular rate, regular rhythm, S1 normal heart sound, S2 normal heart sound, no murmurs, no rub and no gallops GI normal to inspection, nondistended, normoactive bowel sounds, soft to palpation, non-tender and non-distended Extremity no clubbing, cyanosis or edema Skin no rashes or lesions noted General Skin Exam: no breakdown Neuro oriented x3, CN's II-XII intact bilaterally, no focal motor deficits and no sensory deficits noted Sensorium / Orientation: awake and alert Speech: speech normal Psych affect normal Assessment & Plan Assessment/Plan (1) Acute hypoxic respiratory failure: (2) COPD exacerbation: PLAN: Plan 1. Acute combined respiratory failure-secondary to COPD exacerbation and community-acquired pneumonia-patient finished a course of antibiotics, she is currently on room air #2 septic shock secondary to community-acquired pneumonia-patient has completed a course of antibiotics #3 coronary artery disease-cardiac catheterization today showed no occlusive coronary disease #4 valvular heart disease-patient has mitral regurg, patient will undergo PAULINE on 06/03/2025 #5 exacerbation of CHF with preserved ejection fraction-patient is on IV Lasix at this time #6 demand ischemia-patient does not have occlusive coronary disease #7 metabolic encephalopathy-patient appears to be at her baseline today, she is not lethargic #8 generalized weakness-continue PT and OT, patient will need to go to [facility] for [facility]-term re[facility] services Type II non-STEMI was ruled out, patient is a full code Total clinical time spent by myself addressing the patient's medical issues, reviewing all of her data, and collaborating with patient's care team: 35 minutes Charges/Coding Visit Charges Inpatient E&M: 21542 Subs Hosp L2
[2025-06-02] VITALS (9 sets, daily range): BP systolic 103–113; BP diastolic 50–55; PULSE 65–84; RESP 17–26; TEMP 36.5–36.9; O2SAT 92–99; BMI 26.9
--- NOTE | 2025-06-02 00:02 | CPS ---
Patient set up on auto pap with setting of 5cm [id number]. H20
[2025-06-02] MEDS: 0.9% Saline Lock 10 ML Syringe IV ×2 (10:00→20:04)
[2025-06-02] MEDS: Pantoprazole Sodium 40 MG in 0.9% Normal Saline (100mL MB+) 100 ML 300 MG IV (10:01)
[2025-06-02] MEDS: Ensure Plus High Protein 120 ML LIQUID PO ×2 (17:06→20:04)
--- NOTE | 2025-06-02 17:23 | PN.HOSP_ITS ---
Reason for Visit Chief Complaint: shortness of breath Subjective Subjective Patient was seen and examined today, she is on room air presently, she will undergo a PAULINE tomorrow, I had a central line removed today. Objective Data Objective Data Vital Signs: Vital Signs Temp Pulse Resp BP Pulse Ox O2 Del Method O2 Flow Rate 98.4 F 77 17 109/50 L 99 Room Air 10 06/02/25 16:26 06/02/25 16:26 06/02/25 16:26 06/02/25 16:26 06/02/25 16:26 06/02/25 16:29 06/01/25 04:00 FiO2 21 06/02/25 00:00 Oxygen Flow Rate (L/min) 10 Oxygen Delivery Method Room Air Weight: 68.8 kg Body Mass Index (BMI) 26.9 Intake & Output: Intake and Output for Last 24 Hours 05/31/25 06/01/25 06/02/25 23:59 23:59 23:59 Intake Total 1197 / 1197 102.50 / 102.50 107.75 / 107.75 Output Total 400 / 400 Balance 797 / 797 102.50 / 102.50 107.75 / 107.75 Lab / Micro Data 06/01/25 12:16 05/31/25 03:55 Micro: Microbiology 05/24/25 09:06 Blood Culture (Wb) - Anticubital Left Blood Culture - Final No growth in 5 days. 05/24/25 09:04 Blood Culture (Wb) - Anticubital Right Blood Culture - Final No growth in 5 days. 05/24/25 13:30 Sputum, Tracheal Aspirate Gram Stain - Final 05/24/25 13:30 Sputum, Tracheal Aspirate Respiratory Culture - Final Mixed normal respiratory chilo. No Streptococcus pneumoniae, beta-hemolytic Streptococcus or Staphylococcus aureus isolated. 05/24/25 10:17 Urine, Clean Catch Urine Culture - Final GNR lactose under cutting machine operator 05/24/25 15:15 Urine Catheter - Henson Legionella Antigen - Final 05/24/25 15:15 Urine Catheter - Henson Streptococcus pneumoniae Antigen (M - Final 05/24/25 13:05 Mucosa - Nasopharyngeal Coronavirus COVID-19 PCR - Final 05/24/25 13:05 Mucosa - Nasopharyngeal Respiratory Panel (PCR) - Final Physical Exam Narrative alert, oriented x3, no apparent distress and average body habitus General Appearance: cooperative, well kempt and well developed Orientation / Consciousness: awake, oriented to person, oriented to place and oriented to time HEENT normocephalic and head/scalp atraumatic Mouth: dry mucous membranes Eyes PERRL, EOMs intact bilaterally and conjunctivae normal Neck supple, no JVD, thyroid normal and no carotid bruits General: trachea midline Resp normal respiratory effort, no retractions, no use of accessory muscles and clear to auscultation bilaterally Auscultation: Negative for rales, rhonchi or wheezes Cardio regular rate, regular rhythm, S1 normal heart sound, S2 normal heart sound, no murmurs, no rub and no gallops GI normal to inspection, nondistended, normoactive bowel sounds, soft to palpation, non-tender and non-distended Extremity no clubbing, cyanosis or edema Skin no rashes or lesions noted General Skin Exam: no breakdown Neuro oriented x3, CN's II-XII intact bilaterally, no focal motor deficits and no sensory deficits noted Sensorium / Orientation: awake and alert Speech: speech normal Psych affect normal Assessment & Plan Assessment/Plan (1) COPD exacerbation: (2) Acute hypoxic respiratory failure: PLAN: Plan 1. Acute combined respiratory failure-secondary to COPD exacerbation and community-acquired pneumonia-patient finished a course of antibiotics, she is currently on room air #2 septic shock secondary to community-acquired pneumonia-patient has completed a course of antibiotics #3 coronary artery disease-cardiac catheterization showed no occlusive coronary disease #4 valvular heart disease-patient has mitral regurg, patient will undergo PAULINE on 06/03/2025 #5 exacerbation of CHF with preserved ejection fraction-patient is currently not on any Lasix #6 demand ischemia-patient does not have occlusive coronary disease #7 metabolic encephalopathy-patient appears to be at her baseline today, she is not lethargic #8 generalized weakness-continue PT and OT, [facility] #9 moderate pulmonary hypertension-complicates care, management, recovery, and prognosis #10 chronic anemia secondary to GI blood loss from unknown site-H&H will be repeated tomorrow Type II non-STEMI was ruled out, patient is a full code Total clinical time spent by myself addressing the patient's medical issues, reviewing all of her data, and collaborating with patient's care team: 35 minutes Charges/Coding Visit Charges Inpatient E&M: 61177 Subs Hosp L2
[2025-06-03] VITALS (13 sets, daily range): BP systolic 106–129; BP diastolic 53–65; PULSE 62–86; RESP 16–18; TEMP 36.5–36.7; O2SAT 93–98; BMI 26.8
--- NOTE | 2025-06-03 06:40 | ECHOTEE_ITS ---
Reason For Study Reason For Study: Murmur Medication PAULINE probe 6VT-D (SN [id number]) passed without difficulty. No complications were noted. Cetacaine Topical Crystal given X3 orally. Versed 1 mg given slow IVP. Fentanyl 50 mcg given slow IVP. Performed a rapid injection of agitated mix of 9 cc saline and 1cc air to assess for atrial septal defect. Left Ventricle Normal LV size. The left ventricular ejection fraction is 60 %. No regional wall motion abnormalities noted. Right Ventricle Normal RV size. Normal systolic function. Atria Normal atrial septum. Normal left atrium. No thrombus is detected in the left atrial appendage. Normal right atrium. Mitral Valve Posterior leaflet mitral valve prolapse. Moderately severe (3+) eccentric mitral valve insufficiency. Tricuspid Valve Normal tricuspid valve. Mild tricuspid valve insufficiency. Aortic Valve Normal aortic valve. Trisinus/trileaflet aortic valve. Pulmonic Valve Normal pulmonic valve. Vessels Normal aortic root. Normal arch. The pulmonary artery is normal size. Pulmonary venous flow normal. Pericardium No pericardial effusion. ECHO/Echo Transesophageal (PAULINE) Interpretation Summary Normal LV size. The left ventricular ejection fraction is 60 %. No regional wall motion abnormalities noted. Moderately severe (3+) eccentric mitral valve insufficiency. Posterior leaflet mitral valve prolapse. Ordering Physician: Alfredito Saucedo Referring Physician: Florin Bailey Performed By: Katy Franklin, RDCS, RVT
[2025-06-03 07:04] LABS: Hematocrit 28.9 % (37-47); Hemoglobin 8.7 g/dL (12.0-15.0)
--- NOTE | 2025-06-03 09:47 | CL.D_ITS ---
Patient Name: MIGUEL MATHIAS Study Date: 05/30/2025 Performing: Alfredito Saucedo MD Ht: 63 inches 160.02 cm : 1960 Wt: 144.6 lbs 65.5 kg Age: 65 Gender: female BSA: 1.68 PROCEDURE(S) PERFORMED DC01-(50191)LHC/COR/LV CLINICAL PROFILE AND INDICATIONS Indications: Valvular Disease Heart Failure: NYHA Class: 3, Newly Diagnosed: Yes, Heart Failure Type: Systolic Stress/Imaging Stress/Image Study Performed: No CAD Presentations: Other: sob CONCLUSIONS Coronary disease with previously placed stent in the LAD noted to be patent, moderate disease noted in the diagonal vessel, previously placed stent in the circumflex artery is patent, mild disease noted in the right coronary artery. Moderate mitral regurgitation is present. RECOMMENDATIONS Medical therapy for the coronary disease and a PAULINE to evaluate mitral valve further DESCRIPTION OF PROCEDURE The patient arrived to the procedure lab. The risks and benefits of the procedure as well as a full description of our services here and current unavailability of surgical backup were fully explained to the patient and/or their significant other prior to the catheterization. The Timeout was completed, verifying the correct patient and procedure. The patient's procedural site was prepped and draped in the usual fashion. Local anesthetic was given subcutaneously to right radial region with Lidocaine 2%. Using a modified Seldinger technique, arterial access was obtained via the right radial artery, a 6Fr sheath was inserted. Left Coronary Artery selective angiography was performed in multiple views using a 5 Fr. 4.0 [place] catheter. Right Coronary Artery selective angiography was then performed in multiple views using a 5 Fr. 4.0 [place] catheter. Left Ventriculography was performed in [place] projection using a 5 Fr. Pigtail catheter. LV to AO pullback pressures were then recorded.The arterial sheath was pulled and a TR Band was applied for hemostasis CORONARY ANGIOGRAPHY DOMINANCE: Right Dominant LEFT HEART ASSESSMENT Left Ventricular Ejection Fraction: by LV Gram 60 % Normal LV wall motion Normal Left Ventricular systolic function LVEDP: 14 mmHg LEFT MAIN: Angiographically normal LEFT ANTERIOR DESCENDING ARTERY: Left anterior descending artery was previously stented with the first diagonal vessel which is also noted to be patent with a 60 to 80% smooth stenosis. The distal LAD appears to be free of significant disease. CIRCUMFLEX ARTERY: Previously placed stents in this vessel is noted to be patent. RIGHT CORONARY ARTERY: Proximal right coronary artery with mild 30 to 40% stenosis. The mid segment with 30% stenosis and distal mild luminal irregularities present. VALVE FINDINGS: Mitral Valve Insufficiency - Grade 3 COMPLICATIONS No Complications PROCEDURE MEDICATIONS Oxygen: 2 L/min via nasal cannula Heparin given IA 05/30/2025 11:49:06 Verapamil 2.5mg, Ntg 100mcgs, 3000 units of Heparin given IA 05/30/2025 11:49:06 SUMMARY OF HEMODYNAMIC DATA Time AIR REST ECG 11:32:12 AO 126/58 (84) SA 11:51:18 LV 105/13, 14 11:55:11 LV 108/15, 20 11:55:19 LVp 114/15, 16 11:55:25 AOp 117/65 (90) 11:55:32 LV 137/0, 14 11:59:34 LV 136/0, 13 11:59:41 LV 139/0, 18 12:00:52 LV 136/0, 15 12:01:00 LVp 137/1, 15 12:01:05 AOp 134/58 (86) 12:01:13 Signed By Alfredito Saucedo MD On 05/30/2025 12:19:10 Alfredito Saucedo MD
[2025-06-03] MEDS: 0.9% Saline Lock 10 ML Syringe IV ×2 (12:07→20:51)
[2025-06-03] MEDS: Pantoprazole Sodium 40 MG in 0.9% Normal Saline (100mL MB+) 100 ML 300 MG IV (12:08)
[2025-06-03] MEDS: Ensure Plus High Protein 120 ML LIQUID PO ×2 (12:08→20:50)
--- NOTE | 2025-06-03 14:35 | PCM.PN.HOSP ---
Subjective Subjective Doing well, no issues overnight. Objective Data Objective Data Vital Signs: Vital Signs Temp Pulse Resp BP Pulse Ox O2 Del Method O2 Flow Rate 97.9 F 71 17 123/63 H 95 Room Air 10 06/03/25 10:43 06/03/25 10:43 06/03/25 10:43 06/03/25 10:43 06/03/25 10:43 06/03/25 10:43 06/01/25 04:00 FiO2 21 06/03/25 02:09 Oxygen Flow Rate (L/min) 10 Oxygen Delivery Method Room Air Weight: 151 lb 3.794 oz Body Mass Index (BMI) 26.8 Intake & Output: Intake and Output for Last 24 Hours 06/02/25 06/03/25 06/04/25 03:59 03:59 03:59 Intake Total 102.50 / 102.50 107.75 / 107.75 100 / 100 Balance 102.50 / 102.50 107.75 / 107.75 100 / 100 Lab / Micro Data 06/03/25 06:41 05/31/25 03:55 Labs: Laboratory Results - last 24 hr 06/03/25 06:41: Hgb 8.7 L, Hct 28.9 L Micro: Microbiology 05/24/25 09:06 Blood Culture (Wb) - Anticubital Left Blood Culture - Final No growth in 5 days. 05/24/25 09:04 Blood Culture (Wb) - Anticubital Right Blood Culture - Final No growth in 5 days. 05/24/25 13:30 Sputum, Tracheal Aspirate Gram Stain - Final 05/24/25 13:30 Sputum, Tracheal Aspirate Respiratory Culture - Final Mixed normal respiratory chilo. No Streptococcus pneumoniae, beta-hemolytic Streptococcus or Staphylococcus aureus isolated. 05/24/25 10:17 Urine, Clean Catch Urine Culture - Final GNR lactose or director 05/24/25 15:15 Urine Catheter - Henson Legionella Antigen - Final 05/24/25 15:15 Urine Catheter - Henson Streptococcus pneumoniae Antigen (M - Final 05/24/25 13:05 Mucosa - Nasopharyngeal Coronavirus COVID-19 PCR - Final 05/24/25 13:05 Mucosa - Nasopharyngeal Respiratory Panel (PCR) - Final Radiography Diagnostic Testing: Radiology Impression Transesophageal Echocardiogram 06/03/25 06:40 Interpretation Summary Normal LV size. The left ventricular ejection fraction is 60 %. No regional wall motion abnormalities noted. Moderately severe (3+) eccentric mitral valve insufficiency. Posterior leaflet mitral valve prolapse. Ordering Physician: Alfredito Saucedo Referring Physician: Florin Bailey Performed By: Katy Franklin, RDCS, RVT Physical Exam Narrative General: Alert, Oriented x3, Cooperative, No apparent distress HEENT: Atraumatic, PERRLA, EOMI, Normocephalic Oral: Moist Mucosa Neck: Supple, No JVD Lungs: Diminished, Normal air movement, No rhonchi, No wheeze, No rales Cardiovascular: Regular rate, Regular Rhythm, Normal S1, Normal S2, murmur Abdomen: Soft, Non Tender, Non-Distended, No Hepato-splenomegaly Extremities: No edema, Capillary Refill Less than 3 Seconds Skin: No rashes, No breakdown Musculoskeletal: No Tenderness to Palpation of Joints or Extremities Neurological: No focal neurological deficits, Motor Exam 5/5 strength throughout, Sensory exam intact to light touch and pain Psych/Mental Status: Normal Affect, Appropriate Assessment & Plan Assessment/Plan (1) COPD exacerbation: (2) Acute hypoxic respiratory failure: PLAN: Plan 1. Acute combined respiratory failure secondary to COPD exacerbation in the setting of community-acquired pneumonia leading to septic shock ? She has completed antibiotics ? During her hospitalization she was intubated and extubated on 05/28/2025 ? Currently on room air 2. Coronary artery disease status post heart cath on 05/30/2025/essential HTN/HLD ? Heart cath on 05/30/2025 demonstrated previously stented LAD and circumflex artery ? Current recommendation for medical management ? She did have a PAULINE which demonstrated moderate to severe mitral valve insufficiency that she will need outpatient evaluation repair for ? Continue with her home blood pressure medications ? Continue with her home Lipitor ? Continue with her aspirin and Plavix 3. Iron deficiency anemia with history of GI bleeds ? It is a parent that she is supposed to be on iron supplementation though it is unclear if she has been taking it ? I do recommend continued outpatient follow-up with hematology ? Will reorder iron supplementation 4. GERD ? Stable ? Continue with PPI DVT: Lovenox Charges/Coding Visit Charges Inpatient E&M: 33082 Subs Hosp L2
--- NOTE | 2025-06-03 14:48 | CASEMGMT ---
RN CM in to discuss discharge planning, family at bedside. Patient did well with therapy ambulating 400 feet contact guard with therapy. RN CM discussed HHC vs Outpatient therapy. Patient prefers outpatient therapy at discharge at [facility]. Patient denies further needs at discharge. Patient had no further questions or concerns. CM to assist with setting up outpatient therapy at discharge.
[2025-06-04 03:10] VITALS: BP 130/57; PULSE 71; RESP 16; TEMP 36.4; O2SAT 99
[2025-06-04 03:26] VITALS: BMI 26.2
[2025-06-04 05:28] LABS: Hematocrit 28.1 % (37-47); Hemoglobin 8.4 g/dL (12.0-15.0); Immature Granulocytes Count 0.040 X10^3/uL (0.0-0.0); Mean Corp Hgb Conc 29.9 g/dL (32-36); Mean Corpuscular Volume 91.2 fL (81-99); Mean Platelet Vol. 10.6 fl (6.2-12.0); NRBC Flagged by Analyzer 0 % (0-5); Platelet Count 164 K/mm3 (150-450); RBC Distribution Width CV 18.1 % (11.6-14.6); RBC Distribution Width SD 59.3 fl (35.1-43.9); Red Blood Count 3.08 M/mm3 (4.2-5.4); White Blood Count 6.5 K/mm3 (4.4-11.0)
[2025-06-04 06:24] LABS: Anion Gap 10 (5-15); BUN 21 mg/dL (4-19); BUN/Creat Ratio 30.3 RATIO (10-20); Calcium,Total 8.3 mg/dL (7.6-11.0); Carbon Dioxide 21.0 mmol/L (21.0-32.0); Chloride 111 mmol/L (98-108); Estimated Creatinine Clearance 62.78 ml/min (50-250); Glucose 82 mg/dL (70-99); Potassium 3.5 mmol/L (3.3-5.1)
[2025-06-04 07:10] VITALS: PULSE 66; RESP 20; O2SAT 93
[2025-06-04 08:12] VITALS: O2SAT 95
[2025-06-04] MEDS: Ensure Plus High Protein 120 ML LIQUID PO (08:36)
[2025-06-04] MEDS: Pantoprazole Sodium 40 MG in 0.9% Normal Saline (100mL MB+) 100 ML 300 MG IV (08:44)
[2025-06-04] MEDS: 0.9% Saline Lock 10 ML Syringe IV (08:50)
[2025-06-04 09:10] VITALS: BP 120/66; PULSE 63; RESP 16; TEMP 36.2; O2SAT 99
--- NOTE | 2025-06-04 09:51 | DCINST_ITS ---
Discharge Instructions DC O2, CPAP, BIPAP needs Home O2 Discharge instructions: No Dressing / Incision Discharge Activity: Return to Normal Activity Dressing / Incision Call your doctor if you observe: Fever of 101 or Higher, Shortness of breath, Dizziness, Fainting spells, Swelling in the ankles, Chest pain and Increased palpitations (irregular heartbeat) Follow Up Care Test Results: Test results from this visit will be discussed in further detail at your follow- up appointment, if applicable. Discharge Plan Admission Admit Date/Time: 05/24/25 10:41 Attending Provider: Jakub Fischer Primary Care Provider: Florin Bailey Consulting Providers: Estrella Hanna; Sergo Bhandari; Jihan Mcclain Discharge Orders/Prescriptions Prescriptions: New carvedilol 3.125 mg Tablet 3.125 mg PO BIDCM 30 Days Qty: 60 1RF ferrous sulfate [FeroSul] 325 mg (65 mg iron) Tablet 325 mg PO 1200,1700 30 Days Qty: 60 2RF Continued atorvastatin 40 mg tablet 40 mg PO QHS 90 Days Qty: 90 3RF ondansetron 4 mg tablet,disintegrating 4 mg PO Q6H PRN PRN (Reason: Nausea) nitroglycerin 0.4 mg tablet, sublingual 0.4 mg sublingual Q5-15M PRN (Reason: chest pain) Qty: 25 3RF Rx Instructions: do not exceed 3 doses per episode clopidogrel 75 mg tablet 75 mg PO QDAY Qty: 90 3RF aspirin 81 mg Tablet,Delayed Release (Dr/Ec) 81 mg PO DAILY@0800 90 Days Qty: 90 3RF albuterol sulfate [Ventolin HFA] 90 mcg/actuation HFA aerosol inhaler 2 puff inhalation Q4H PRN PRN (Reason: Wheezing) Qty: 1 0RF Rx Instructions: with spacer pantoprazole [Protonix] 40 mg tablet,delayed release (DR/EC) 40 mg PO DAILY Qty: 90 0RF Discontinued metoprolol succinate [Toprol XL] 25 mg tablet extended release 24 hr 25 mg PO DAILY 90 Days Qty: 90 3RF polysaccharide iron complex 150 mg iron capsule 150 mg PO QDAY Referrals / Follow Up: Jorge Leavitt MD [Med Staff - Active Staff] - Within 1 Month Dax Álvarez MD [Med Staff - Active Staff] - Within 1 Month (For anemia ) Florin Bailey DO [Primary Care Provider] - Within 1 Week Disposition Disposition (needs filled in before D/C Order can be placed): Home, Self Care
--- NOTE | 2025-06-04 11:18 | PHA.DC_ITS ---
Pharmacy [facility] Counseling Pharmacy Service has performed discharge medication reconciliation and counseling for this patient. 1. CARVEDILOL 3.125MG PO BID 2. FERROUS SULFATE 325MG PO LUNCH AND DINNER 3. STOP METOPROLOL AND FERREX The patient's discharge medication list was reviewed for discrepancies and discrepancies were resolved. The patient was counseled on the following discharge medications and changes in medications for homegoing were reviewed. The Reason for Use, instructions for use, and potential side effects were reviewed for all new medications. The patient's questions regarding all of their medications were answered. The patient was able to verbally demonstrate an understanding of their discharge medications. Medications at Discharge Home Medications aspirin 81 mg tablet,delayed release 81 mg PO DAILY@0800 heart health 90 days #90 tabs 10/11/24 atorvastatin 40 mg tablet 40 mg PO QHS cholesterol 90 days #90 tabs 10/26/24 albuterol sulfate 90 mcg/actuation aerosol inhaler (Ventolin HFA) 2 puff inhalation Q4H PRN PRN Wheezing ##1 02/06/25 nitroglycerin 0.4 mg sublingual tablet 0.4 mg sublingual Q5-15M PRN chest pain #25 tabs 02/07/25 pantoprazole 40 mg tablet,delayed release (Protonix) 40 mg PO DAILY reflux #90 tabs 02/22/25 clopidogrel 75 mg tablet 75 mg PO QDAY anti platelet #90 tabs 04/05/25 ondansetron 4 mg disintegrating tablet 4 mg PO Q6H PRN PRN Nausea 04/30/25 carvedilol 3.125 mg tablet 3.125 mg PO BIDCM 30 days #60 tabs 06/04/25 ferrous sulfate 325 mg (65 mg iron) tablet (FeroSul) 325 mg PO 1200,1700 30 days #60 tabs 06/04/25
--- NOTE | 2025-06-04 11:36 | PCM.DC.SUM ---
Providers Date of Admission: 05/24/25 Primary Care Physician: Dr. Florin Bailey DO Consultations 05/24/25 13:25 Consult: Guest Services Attendant / Pulmonary Medicine Routine Consulting Provider: Intensivists/Pulmonary Med Reason for Consult: acute hypoxic respiratory failure EMERGENT Consult: No MD Notified: Yes Date Notified: 05/24/25 Time Notified: 12:04 Method of Notification: Text 05/25/25 07:18 Consult: Cardiology Routine Consulting Provider: Jihan Mcclain Reason for Consult: nonstemi EMERGENT Consult: Yes MD Notified: Yes Date Notified: 05/25/25 Time Notified: 07:18 Method of Notification: Verbal Comments:: reached by phone by this RN 06/03/25 06:40 MD to MD Notification of Procedure Routine Reason for Consult: murmur EMERGENT Consult: No MD Notified: Yes Date Notified: 06/03/25 Time Notified: 06:40 Method of Notification: Verbal MD Notified:: Alfredito Saucedo Reason For Visit: ACUTE HYPOXIC RESPIRATORY FAILURE Diagnosis Discharge Diagnosis (1) COPD exacerbation: Status: Chronic Code(s): J44.1 - Chronic obstructive pulmonary disease with (acute) exacerbation (2) Acute hypoxic respiratory failure: Status: Acute Code(s): J96.01 - Acute respiratory failure with hypoxia Medications at Discharge Home Medications aspirin 81 mg tablet,delayed release 81 mg PO DAILY@0800 heart health 90 days #90 tabs 10/11/24 atorvastatin 40 mg tablet 40 mg PO QHS cholesterol 90 days #90 tabs 10/26/24 albuterol sulfate 90 mcg/actuation aerosol inhaler (Ventolin HFA) 2 puff inhalation Q4H PRN PRN Wheezing ##1 02/06/25 nitroglycerin 0.4 mg sublingual tablet 0.4 mg sublingual Q5-15M PRN chest pain #25 tabs 02/07/25 pantoprazole 40 mg tablet,delayed release (Protonix) 40 mg PO DAILY reflux #90 tabs 02/22/25 clopidogrel 75 mg tablet 75 mg PO QDAY anti platelet #90 tabs 04/05/25 ondansetron 4 mg disintegrating tablet 4 mg PO Q6H PRN PRN Nausea 04/30/25 carvedilol 3.125 mg tablet 3.125 mg PO BIDCM 30 days #60 tabs 06/04/25 ferrous sulfate 325 mg (65 mg iron) tablet (FeroSul) 325 mg PO 1200,1700 30 days #60 tabs 06/04/25 Hospital Course Operations None Procedures Cardiac catheterization and Transesophageal Echo Summary of Care Provided Minutes Spent on Discharge: 36 Hospital Course: Per HPI: MIGUEL MATHIAS, is a 65 F who presents via the ED with a complaint of shortness of breath. She has a history of anemia and was seen in the ED for anemia. She was transfused with a unit of PRBCs and sent home. However she started getting short of breath during the night. The shortness of breath worsened so she was rushed to the ED by the EMS. When the EMS arrived she was 75% on room air.. She could initially not tolerate a nonrebreather mask and to be put on oxygen by nasal cannula. However she Desaturating. She Was Given Sublingual Nitro by the EMS but it did not help with her shortness of breath. She was placed on BiPAP in the ER but still was not improving so she was electively intubated in the ED. History obtained from her and sons who were at her bedside at time of review Vitals at time of review were temperature of 95. Hide, pulse rate of 98 after intubation, blood pressure 175/82 and respiratory rate of 20. She was on mechanical ventilator at FiO2 of 50% and saturating at 93%. CBC showed WBC of 21.3 with hemoglobin of 10.3 and platelets of 250. INR was 1.1. Chemistry showed sodium of 140 with potassium of 4.4 and anion gap of 19. Bicarb was 15. Creatinine was 1.16. Lactic acid was 6.1. Urinalysis showed no evidence of UTI. CTA of the chest was ordered and is pending. Chest x-ray done on initial arrival in the ED showed mildly hyperexpanded lungs with development of diffuse interstitial edema and small bilateral pleural effusions suggesting pulmonary vascular congestion versus CHF. She has been admitted to be managed for acute hypoxic respiratory failure in the setting of recent blood transfusion, and possible acute exacerbation of heart failure. Hospital Course: 1. Acute combined respiratory failure secondary to COPD exacerbation in the setting of community-acquired pneumonia leading to septic shock?65-year-old female presented to the hospital with increased shortness of breath and anemia. She has been transfused previously and then sent home but she developed increased shortness of breath likely back to the hospital. She ultimately had to be intubated on 05/24/2025 with extubation occurring on 05/28/2025. She was started on antibiotics which she has completed during her hospitalization and she is also been weaned off of oxygen and back to room air. For COPD exacerbation she has also completed steroids during her admission. I discussed with her the possibility for discharge today and she expressed understanding of the risk benefits of going home and would like to go home today. 2. Coronary artery disease status post heart cath on 05/30/2025/essential HTN/HLD?she has an extensive cardiac history with a stent back in September to her LAD and then another stent to her circumflex in January. She is currently maintained on aspirin and Plavix which will be continued. She does have a significant murmur and initially an echocardiogram on admission demonstrated an EF of 65% with moderate papillary muscle dysfunction in the mitral valve with moderately severe anteriorly directed mitral valve insufficiency so a transesophageal echocardiogram was performed on 06/03/2025 which demonstrated an EF of 60% and posterior leaflet mitral valve prolapse. We will continue with all of her home blood pressure medications including her aspirin and Plavix and Lipitor. 3. Iron deficiency anemia with a history of GI bleeds and GERD?she does see hematology as an outpatient for this issue however I will increase her iron to twice a day dosing with ferrous sulfate. She did receive a unit of blood prior to admission and we will continue with PPIs however she cannot stop aspirin or Plavix. I do recommend that she continue to follow-up with hematology on an outpatient basis to see if any headway can be made with her anemia Of note this morning she was tearful and was feeling very anxious was given all of her health care issues over the last 6 months which has been a lot for her as she states that she is normally the one who takes care of other people. I did recommend following up with her PCP either for medication and or therapy which she has agreed to. Physical Exam Narrative General: Alert, Oriented x3, Cooperative, No apparent distress HEENT: Atraumatic, PERRLA, EOMI, Normocephalic Oral: Moist Mucosa Neck: Supple, No JVD Lungs: Diminished, Normal air movement, No rhonchi, No wheeze, No rales Cardiovascular: Regular rate, Regular Rhythm, Normal S1, Normal S2, murmur Abdomen: Soft, Non Tender, Non-Distended, No Hepato-splenomegaly Extremities: No edema, Capillary Refill Less than 3 Seconds Skin: No rashes, No breakdown Musculoskeletal: No Tenderness to Palpation of Joints or Extremities Neurological: No focal neurological deficits, Motor Exam 5/5 strength throughout, Sensory exam intact to light touch and pain Psych/Mental Status: Normal Affect, Appropriate Weight / BMI Weight Weight: 147 lb 14.883 oz Body Mass Index (BMI) 26.2 ABG / Lab / Microbiology Data 06/04/25 04:50 06/04/25 04:50 Laboratory: Laboratory Results - last 24 hr 06/04/25 04:50: WBC 6.5, RBC 3.08 L, Hgb 8.4 L, Hct 28.1 L, MCV 91.2, MCH 27.3, MCHC 29.9 L, RDW Std Deviation 59.3 H, RDW Coeff of Gerber 18.1 H, Plt Count 164, MPV 10.6, Immature Gran % (Auto) 0.600, Neut % (Auto) 55.1, Lymph % (Auto) 28.9, [place] % (Auto) 11.7 H, Eos % (Auto) 3.2, Baso % (Auto) 0.5, Absolute Neuts (auto) 3.6, Absolute Lymphs (auto) 1.88, Nucleated RBC % 0, Sodium 142, Potassium 3.5, Chloride 111 H, Carbon Dioxide 21.0, Anion Gap 10, BUN 21 H, Creatinine 0.69 L, Estim Creat Clear Calc 62.78, Est GFR (MDRD) Non-Af 95, BUN/Creatinine Ratio 30.3 H, Glucose 82, Calcium 8.3 Microbiology: Microbiology 05/24/25 09:06 Blood Culture (Wb) - Anticubital Left Blood Culture - Final No growth in 5 days. 05/24/25 09:04 Blood Culture (Wb) - Anticubital Right Blood Culture - Final No growth in 5 days. 05/24/25 13:30 Sputum, Tracheal Aspirate Gram Stain - Final 05/24/25 13:30 Sputum, Tracheal Aspirate Respiratory Culture - Final Mixed normal respiratory chilo. No Streptococcus pneumoniae, beta-hemolytic Streptococcus or Staphylococcus aureus isolated. 05/24/25 10:17 Urine, Clean Catch Urine Culture - Final GNR lactose gasoline pump mechanic 05/24/25 15:15 Urine Catheter - Henson Legionella Antigen - Final 05/24/25 15:15 Urine Catheter - Henson Streptococcus pneumoniae Antigen (M - Final 05/24/25 13:05 Mucosa - Nasopharyngeal Coronavirus COVID-19 PCR - Final 05/24/25 13:05 Mucosa - Nasopharyngeal Respiratory Panel (PCR) - Final Radiography Diagnostic Testing: Radiology Impression Transesophageal Echocardiogram 06/03/25 06:40 Interpretation Summary Normal LV size. The left ventricular ejection fraction is 60 %. No regional wall motion abnormalities noted. Moderately severe (3+) eccentric mitral valve insufficiency. Posterior leaflet mitral valve prolapse. Ordering Physician: Alfredito Saucedo Referring Physician: Florin Bailey Performed By: Katy Barakat, ANAYA, RVT D/C Instructions Call your doctor if you observe: Fever of 101 or Higher, Shortness of breath, Dizziness, Fainting spells, Swelling in the ankles, Chest pain and Increased palpitations (irregular heartbeat) DC O2, CPAP, BIPAP Needs Home O2 Discharge instructions: No Meaningful Use Info Meaningful Use Meaningful Use Diagnoses (Choose all that apply): None applicable Discharge Plan Admission Admit Date/Time: 05/24/25 10:41 Attending Provider: Jakub Fischer Primary Care Provider: Florin Bailey Consulting Providers: Estrella Hanna; Sergo Bhandari; Jihan Mcclain Discharge Orders/Prescriptions Prescriptions: New carvedilol 3.125 mg Tablet 3.125 mg PO BIDCM 30 Days Qty: 60 1RF ferrous sulfate [FeroSul] 325 mg (65 mg iron) Tablet 325 mg PO 1200,1700 30 Days Qty: 60 2RF Continued atorvastatin 40 mg tablet 40 mg PO QHS 90 Days Qty: 90 3RF ondansetron 4 mg tablet,disintegrating 4 mg PO Q6H PRN PRN (Reason: Nausea) nitroglycerin 0.4 mg tablet, sublingual 0.4 mg sublingual Q5-15M PRN (Reason: chest pain) Qty: 25 3RF Rx Instructions: do not exceed 3 doses per episode clopidogrel 75 mg tablet 75 mg PO QDAY Qty: 90 3RF aspirin 81 mg Tablet,Delayed Release (Dr/Ec) 81 mg PO DAILY@0800 90 Days Qty: 90 3RF albuterol sulfate [Ventolin HFA] 90 mcg/actuation HFA aerosol inhaler 2 puff inhalation Q4H PRN PRN (Reason: Wheezing) Qty: 1 0RF Rx Instructions: with spacer pantoprazole [Protonix] 40 mg tablet,delayed release (DR/EC) 40 mg PO DAILY Qty: 90 0RF Discontinued metoprolol succinate [Toprol XL] 25 mg tablet extended release 24 hr 25 mg PO DAILY 90 Days Qty: 90 3RF polysaccharide iron complex 150 mg iron capsule 150 mg PO QDAY Referrals / Follow Up: Jorge Leavitt MD [Med Staff - Active Staff] - 06/25/25 9:30 am ([facility]POINTMENT [facility] Dax Álvarez MD [Med Staff - Active Staff] - 06/19/25 3:15 pm (For anemia ) Florin Bailey DO [Primary Care Provider] - 06/11/25 1:00 pm Disposition Disposition (needs filled in before D/C Order can be placed): Home, Self Care Charges/Coding Visit Charges Inpatient E&M: 72469 Disch Hosp >30min
--- NOTE | 2025-06-04 11:50 | CASEMGMT ---
Patient has order for discharge. Patient wishes to discharge to home with outpatient therapy with [facility], patient would like [facility] to call patient to schedule appt. Patient denies further needs or help at discharge. Patient had no further questions. NICOLA GARAY updated hospitalist, script received. NICOLA GARAY faxed order with face sheet to [facility]. NICOLA GARAY placed script in discharge packet, copy placed in chart. NICOLA GARAY updated discharge plan.
== END 2025-06-04 12:32 | disposition home or self-care (01) | DRG 871 ==
LOC: ED 10:39 → ICU 10:49 → PCU 05-31 17:00
PROVIDERS: Family Medicine; Internal Medicine; Internal Medicine Critical Care Medicine; Admitting Provider Student in an Organized Health Care Education/Training Program; Emergency Provider Emergency Medicine; Visit Provider Family Medicine
DX: A41.9 Sepsis, unspecified organism (principal); R65.21 Severe sepsis with septic shock; J96.02 Acute respiratory failure with hypercapnia; J96.01 Acute respiratory failure with hypoxia; I50.21 Acute systolic (congestive) heart failure; G93.41 Metabolic encephalopathy; J18.9 Pneumonia, unspecified organism; I24.89 Other forms of acute ischemic heart disease; E87.20 Acidosis, unspecified; J44.1 Chronic obstructive pulmonary disease with (acute) exacerbation; J90 Pleural effusion, not elsewhere classified; J44.0 Chronic obstructive pulmonary disease with (acute) lower respiratory infection; E87.0 Hyperosmolality and hypernatremia; D50.0 Iron deficiency anemia secondary to blood loss (chronic); I34.0 Nonrheumatic mitral (valve) insufficiency; E78.5 Hyperlipidemia, unspecified; K21.9 Gastro-esophageal reflux disease without esophagitis; G47.33 Obstructive sleep apnea (adult) (pediatric); I25.10 Atherosclerotic heart disease of native coronary artery without angina pectoris; I25.2 Old myocardial infarction; F17.210 Nicotine dependence, cigarettes, uncomplicated; I27.20 Pulmonary hypertension, unspecified; Z79.899 Other long term (current) drug therapy; Z79.82 Long term (current) use of aspirin; Z79.02 Long term (current) use of antithrombotics/antiplatelets; Z95.5 Presence of coronary angioplasty implant and graft; R45.1 Restlessness and agitation; Z99.89 Dependence on other enabling machines and devices; R01.1 Cardiac murmur, unspecified; Z86.79 Personal history of other diseases of the circulatory system
CPT/HCPCS: 31500; 31720; 36415; 36600; 51702; 71045; 71275; 74018; 74174; 80048; 80053; 80076; 80202; 81001; 82140; 82274; 82550; 82803; 83605; 83690; 83880; 84443; 84478; 84484; 85014; 85018; 85025; 85610; 85730; 86850; 86900; 86901; 87040; 87070; 87086; 87088; 87205; 87449; 87633; 87635; 92526; 92610; 93005; 93306; 93312; 93320; 93325; 93458; 94002; 94003; 94640; 94660; 94762; 96365; 96366; 97110; 97116; 97162; 97166; 97530; 97535; 97802; 97803; 99252; 99283; 99285; J2185; P9016; Q9957; Q9967; A4216; C1751; C1769; C1894; G0463; J1938; J2405

== ENCOUNTER → 2025-07-10 | Outpatient (CLI) | payer MEDICARE, SELFPAY ==
[2025-05-08 08:11] VITALS: BMI 24.7
--- NOTE | 2025-06-05 13:25 | CR.ITP_ITS ---
Exercise - Initial Assessment Physician Prescribed Exercise Modalities: Treadmill, Rower, Schwinn Airdyne AD-7, SciFit Stepper, SciFit Pro- II Ergometer and SciFit Lateral [employer] Nutrition - Initial Assessment Weight Mgt (Other Care) Height: 5 ft 7 in Weight:: 158 lb BMI: 24.7 Psychosocial - Initial Assess Target Goals Target Goals Referral to Behavioral Health PS - Interventions: Yes: Attend Stress Management Classes Nutrition Survey Nutrition Survey Instructions Scoring Instructions Exercise - 30-day Assessment Physician Prescribed Exercise Modalities: Treadmill, Rower, Schwinn Airdyne AD-7, SciFit Stepper, SciFit Pro- II Ergometer and SciFit Lateral [place] Exercise - 60-day Assessment Physician Prescribed Exercise Modalities: Treadmill, Rower, Schwinn Airdyne AD-7, SciFit Stepper, SciFit Pro- II Ergometer and SciFit Lateral [employer] Exercise - 90-day Assessment Visit Date of Eval: 06/05/25 (Pt has not started rehab due to multiple other health issues.) Physician Prescribed Exercise Modalities: Treadmill, Rower, Schwinn Airdyne AD-7, SciFit Stepper, SciFit Pro- II Ergometer and SciFit Lateral [employer] Frequency: 3x/week for 12 weeks [36 sessions] Intensity: 60-80% of age predicted maximum heart rate reserve Duration: 30 - 45 minutes Current METSs:: 3 Target Heart Rate:: 92-116 Outcomes & Goals Goals:: Verbalizes understanding of THR, RPE & goal METS by session 6, Documents in home exercise log/reports 30 min aerobic 5 day/wk by DC, Demonstrates accurate pulse taking by DC and Other additional outcome/goals: see below Intervention & Plan Exercise Program Goals: Instruct on personal THR & RPE, Instruct on MET level & personal MET goal, Show patient to take own pulse /validate performance until accurate, Instruct on home exercise and Other additional plan/int Physical Activity Home Exercise Physical Activity - Home Exercise: Safe Exercise, Warm-up, Self-monitoring, Cool-Down, Home Exercise > 30 min Daily and Sitting Time <3 hours/daily Outcomes & Goals Outcomes/Goals: Demonstrates correct Warm-up/exercise Cool-Down (S3) if = 2.5 METs, Verbalizes symptoms of exercise intolerance by Session 3 (S3), Demonstrate safe equipment use (S3) & follows exercise prescrition (6) and Other: See below Intervention & Plan Plan/Intervention: Instruct warm-up & cool-down if exercising at > 2 METs, Instruct on symptoms of exercise intolerance & actions to take, Instruct & monitor on saf, Assess intial functional capacity & safety risk and Other See below Exercise - Final/Discharge Physician Prescribed Exercise Modalities: Treadmill, Rower, Schwinn Airdyne AD-7, SciFit Stepper, SciFit Pro- II Ergometer and SciFit Lateral [employer] Nutrition - 30-Day Assessment Weight Mgt (Other Care) Height: 5 ft 7 in Weight:: 158 lb BMI: 24.7 Nutrition - 60-Day Assessment Weight Mgt (Other Care) Height: 5 ft 7 in Weight:: 158 lb BMI: 24.7 Core - 90 Day Assessment Visit Date of Eval: 06/05/25 (Pt has not started rehab due to multiple other health issues.) Medication Compliance Preventative Medication(s):: Aspirin, CT inhibitor, Ticagrelor/P2Y12 inhibitor and Beta brandy H/O mental health issues: depression, anxiety, or addiction?: No Doesn?t believe in the benefits of treatment?: No Believes medications are unnecessary or harmful?: No Has a concern about medication side effects?: No Expresses concern over the cost of medications?: No Outcomes/Goals: Verbalizes medications,desired effect & common side effects @ DC, Pt self-reports following medication regimen, Keeps card in wallet w/medications listed by DC and Other additional outcome/goals: Interventions/plans: Instruct on medication effects & side effects, Review medication list w/patient every two weeks, Instruct importance of taking meds as ordered & assist problem solving and Other additional Tobacco Use Tobacco Use: Cigarettes How many cigarettes do you smoke per day?: 10 Years Smokin Outcomes/Goals: Smoking cessation achieved or maintained by discharge, Identify aids/strategies for achieving smoking cessation by session 6 and Other ad ditional outcome/goals Interventions/plan: Instruct on effects of smoking & provide smoking cessation resource, Assist pt to set quit date & provide encouragement, Assist pt to develop strategies to achieve/maintain quit date, Assist pt w/nicotine replacement & medication for cessation success and Other additional plan/interventions Tobacco Cessation Referral Education Schedule Given:: Yes Psychosocial - 30-Day Assess Target Goals Target Goals Referral to Behavioral Health PS - Interventions: Yes: Attend Stress Management Classes Psychosocial - 60-Day Assess Target Goals Target Goals Referral to Behavioral Health PS - Interventions: Yes: Attend Stress Management Classes Psychosocial - 90-Day Assess VIsit Date of Eval: 06/05/25 (Pt has not started rehab due to multiple other health issues.) History of previous Mental disease:: No Target Goals Target Goals Psychosocial Test Tool Used:: PHQ-9 Questionnaire (from initial eval ) phq-9 Severity Referral to Behavioral Health PS - Interventions: Yes: Attend Stress Management Classes Outcomes/Goals: See list Psychosocial Outcomes/Goals:: ID's personal stressors & 2 strategies to manage stress by discharge and Other Additional outcome/goals: Intervention/Plan: See List Interventions/Plan:: Assess stressors,coping strategies & signs of derpression on admission, Instruct/assist pt to develop coping & personal stress Mgt strategies, Refer to Behavioral Health if appropriate, Refer to Physician if appropriate, Instruct patient to recognize signs & symptoms of depression, Instruct patient to recog and Other additional plan/intervention Psychosocial - Final Assessmen Target Goals Target Goals Referral to Behavioral Health PS - Interventions: Yes: Attend Stress Management Classes Nutrition - 90-Day Assessment Program Goals Nutrition Program Goals Patient has diagnosis of Hyperlipidemia (ICD E78)?: Yes Visit Date of Eval: 06/05/25 (Pt has not started rehab due to multiple other health issues.) Cholesterol/Lipids (Other Core Measures) Determine presence & major risk factors that modify LDL goal: Cigarette smoking, Hypertension or hypertensive medication, Low HDL cholesterol <40 mg/dL*, Family history of premature CHD in Male < 55 years: female <65 yearsFa and Age men > 45 years; women >/= 55 years Outcomes/Goals: Pt IDs own risk factors & lifestyle modifications by Session 10, Verbalizes symptoms of angina & response by session 3., Pt independently manages and Other Additional Outcomes/Goals: Intervention/Plan: Advocate for lipid panel cholesterol medication if applicable, Instruct on personal lipid levels & lipid goals/NCEP guidelines, Instruct on cholesterol and Other additional plan/int Diabetes (Other Core Measures) Diabetes Type: Not Applicable Weight Mgt (Other Care) Height: 5 ft 7 in Weight:: 158 lb BMI: 24.7 Diagnosis Overweight/Obesity BMI> 30% ICD-10 E66: No Diagnosis High BMI/Morbid Obesity BMI> 35% ICD-10 Z68: No Outcomes/Goals: Pt sets, maintains & shows weight loss goal & trend during rehab and Other additional outcomes/goals Intervention/Plan: Instruct on ideal BMI & set weight loss goal w/patient, Assist pt to ID & incorporate diet changes for weight loss by S9, Refer to Structured Weight Loss program as appropriate, Encourage goal of using 250- 300dcal per session for weight loss and Other additional plan/interventions Healthy Eating Habits Outcomes/Goals:: Consume diet rich in vegs,fruits,whole grain/high fiber,fish,lean meat, Limit sat/trans fats,cholesterol & added salts & sugars and Other additional outcome/goals: Intervention/Plan:: Assess current eating habits and Other Additional plan/interventions Nutrition - Final Assessment Weight Mgt (Other Care) Height: 5 ft 7 in Weight:: 158 lb BMI: 24.7
[2025-06-05 13:30] VITALS: BMI 24.7
== END | disposition home or self-care (01) ==
LOC: PSN 10:35
PROVIDERS: Referring Provider Nurse Practitioner Family; Visit Provider Nurse Practitioner Family
DX: F17.210 Nicotine dependence, cigarettes, uncomplicated (principal)
CPT/HCPCS: 94060; 94726; 94729

== ENCOUNTER → 2025-07-11 | Outpatient (CLI) | payer MEDICARE, SELFPAY ==
[2025-05-08 08:11] VITALS: BMI 24.7
[2025-06-05 13:30] VITALS: BMI 24.7
[2025-07-11 13:34] VITALS: PULSE 100; PULSE 103; PULSE 86; PULSE 87; PULSE 90; PULSE 92; PULSE 98; O2SAT 97; O2SAT 98
--- NOTE | 2025-07-12 10:33 | PCM.PSN.6M ---
PSN 6 Minute Walk Test 6 Minute Walk Test 6 Minute Walk Test: 6 Minute Walk Test PSN:6-Minute Walk Test Start: 07/11/25 13:33 Freq: Status: Active Protocol: [id number] Document 07/11/25 13:34 [facility] (Rec: 07/11/25 13:37 [facility] [id number]) 6 Minute Walk Test Date Performed 07/11/25 Time Performed 12:30 Height 5 ft 7 in Weight: 146 lb Weight in Pounds 146.[address]: Emmy Banks Assistive device None used: Pre-test Oxygen Delivery Room Air Method Pulse Ox (%) 97 Pulse Rate (60-100 87 beats/min) Dyspnea Felipa Scale ( 0 0-10) 1st minute Oxygen Delivery Room Air Method Pulse Ox (%) 97 Pulse Rate (60-100 86 beats/min) Dyspnea Felipa Scale ( 0 0-10) Number of Rests 0 Taken 2nd minute Oxygen Delivery Room Air Method Pulse Ox (%) 97 Pulse Rate (60-100 90 beats/min) Dyspnea Felipa Scale ( 1 0-10) Number of Rests 0 Taken 3rd minute Oxygen Delivery Room Air Method Pulse Ox (%) 97 Pulse Rate (60-100 92 beats/min) Dyspnea Felipa Scale ( 1 0-10) Number of Rests 0 Taken 4th minute Oxygen Delivery Room Air Method Pulse Ox (%) 97 Pulse Rate (60-100 98 beats/min) Dyspnea Felipa Scale ( 1 0-10) Number of Rests 0 Taken 5th minute Oxygen Delivery Room Air Method Pulse Ox (%) 98 Pulse Rate (60-100 100 beats/min) Dyspnea Felipa Scale ( 1 0-10) Number of Rests 0 Taken 6th minute Oxygen Delivery Room Air Method Pulse Ox (%) 98 Pulse Rate (60-100 103 H beats/min) Dyspnea Felipa Scale ( 1 0-10) Number of Rests 0 Taken Post-test Oxygen Delivery Room Air Method Pulse Ox (%) 97 Pulse Rate (60-100 90 beats/min) Dyspnea Felipa Scale ( 0 0-10) Full Laps Walked 15 Partial Lap, Number 0 of Tiles Walked Total Distance 885 Walked (ft) Interpretation Interpretation: The patient ambulated 885 feet over the course of 6 minutes beginning on room air without assistive devices. Pretesting oxygen saturation was noted to be 97% on room air. With ambulation, the stevenson oxygen saturation was 97%. There was no significant exertional oxygen desaturation. Recommendations Recommendations: There is no indication for the use of supplemental oxygen at this time.
== END | disposition home or self-care (01) ==
PROVIDERS: Referring Provider Nurse Practitioner Family; Visit Provider Nurse Practitioner Family
DX: G47.33 Obstructive sleep apnea (adult) (pediatric) (principal); F17.210 Nicotine dependence, cigarettes, uncomplicated
CPT/HCPCS: 94618; 94762

== ENCOUNTER 2025-08-01 22:34 | Inpatient (IN) | payer MEDICARE, SELFPAY ==
[2025-06-05 13:30] VITALS: BMI 24.7
[2025-08-01] VITALS (10 sets, daily range): BP systolic 103–205; BP diastolic 74–126; PULSE 106–130; RESP 16–33; TEMP 33.8–36.6; O2SAT 71–100; BMI 24.3
--- NOTE | 2025-08-01 22:42 | RAD_ITS ---
PROCEDURE: CHEST 1 VIEW (PORTABLE) 08/01/2025 REASON FOR EXAM: DYSPNEA TECHNIQUE: Frontal view of the chest. COMPARISON: 05/29/2025 FINDINGS: Lungs/Pleura: Extensive hazy airspace opacities in the bilateral mid to lower lung zones, likely pneumonia. Background of moderate-advanced chronic interstitial emphysematous lung changes. No pneumothorax or sizable pleural effusion. Heart/Mediastinum: Within normal limits. No vascular congestion. Bones/Soft tissues: Mild degenerative changes of the spine. RAD/Chest 1 View (Portable) IMPRESSION: Bilateral lower lung zone hazy airspace opacities, likely pneumonia. Background of moderate-advanced chronic interstitial emphysematous lung changes . Reading Location: [id number]
[2025-08-01 23:02] LABS: Hematocrit 47.3 % (37-47); Hemoglobin 14.9 g/dL (12.0-15.0); Immature Granulocytes Count 0.110 X10^3/uL (0.0-0.0); Mean Corp Hgb Conc 31.5 g/dL (32-36); Mean Corpuscular Volume 97.7 fL (81-99); Mean Platelet Vol. 10.5 fl (6.2-12.0); NRBC Flagged by Analyzer 0 % (0-5); POSITIVE DIFFERENTIAL YES; POSITIVE MORPHOLOGY YES; Platelet Count 240 K/mm3 (150-450); RBC Distribution Width CV 16.9 % (11.6-14.6); RBC Distribution Width SD 60.2 fl (35.1-43.9); Red Blood Count 4.84 M/mm3 (4.2-5.4); White Blood Count 19.8 K/mm3 (4.4-11.0)
[2025-08-01 23:02] LABS: Base Excess -13 mmol/L (-2 to +2); FI02 100.0; PO2 170 mmHG (75-100); SITE R Radial; SO2 99 % (95-99); Time Given 22:58:44
[2025-08-01 23:23] LABS: Prothrombin Time (Protime)PT. 13.8 SECONDS (11.7-14.9)
[2025-08-01 23:24] LABS: Partial Thromboplast Time 28.3 Seconds (24.1-36.2)
[2025-08-01 23:29] LABS: Anion Gap 22 (5-15); BUN 29 mg/dL (4-19); BUN/Creat Ratio 22.2 RATIO (10-20); Calcium,Total 9.5 mg/dL (7.6-11.0); Carbon Dioxide 18.1 mmol/L (21.0-32.0); Chloride 100 mmol/L (98-108); Estimated Creatinine Clearance 40.84 ml/min (50-250); Glucose 296 mg/dL (70-99); Magnesium 2.8 mg/dL (1.5-2.2); Potassium 3.7 mmol/L (3.3-5.1); Pro- Brain NATRIURETIC PEPTIDE 288 pg/mL (<=900)
[2025-08-01] MEDS: Nitroglycerin SL (ED/IMG/CATH) 0.4 MG TABLET SL (23:51)
[2025-08-02] VITALS (17 sets, daily range): BP systolic 59–111; BP diastolic 45–73; PULSE 69–101; RESP 15–27; TEMP 36.7–37.1; O2SAT 97–100; BMI 23.8
[2025-08-02 00:19] LABS: Differential Indicated SCAN CRITERIA MET
[2025-08-02] MEDS: Norepinephrine Bit/0.9% NaCl 8 MG/250 ML IV.SOLN 9.4 MG CONT INF (00:40)
--- NOTE | 2025-08-02 00:43 | ED.RN ---
PATIENT TRANSFERRED TO ROOM TWO DUE TO ACUITY.
[2025-08-02 00:56] LABS: Differential Comment SCANNED
--- NOTE | 2025-08-02 00:57 | EDS_ITS ---
HPI History of Present Illness Chief Complaint: Shortness of Breath Informant: patient, spouse/S.O. and EMS Narrative Narrative: Patient is a 65-year-old female with past medical history of COPD congestive heart failure coronary artery disease and mitral valve insufficiency. She was admitted to the hospital a few months ago secondary to congestive heart failure exacerbation requiring intubation. According to family and EMS the patient was at a volSubmittableball game this evening. After the game was over and she was in the car driving home she began to complain of shortness of breath. Reportedly patient had been feeling well prior to the sudden onset of symptoms. However with the patient's shortness of breath and increased work of breathing there was concern for return of pulmonary edema and EMS was called. EMS states when they arrived the patient was sitting outside and had increased work of breathing and was hypoxic with a SpO2 of approximately 70%. They provided a breathing treatment and Solu-Medrol and placed on a nonrebreather but there was minimal symptom improvement. [facility] Medical History (Updated 08/02/25 @ 06:[address] Meir Will, DO) Mitral valve insufficiency Anemia GERD (gastroesophageal reflux disease) Smoker CPAP (continuous positive airway pressure) dependence Non-ST elevation [place] (NSTEMI) Hematuria UTI (urinary tract infection) Hyperlipidemia Atherosclerosis of coronary artery of [place] without angina pectoris Myocardial infarct Home Medications ?Medication ?Instructions ?Recorded ?Last Taken ?Type aspirin 81 mg tablet,delayed 81 mg PO DAILY@0800 [facility] 10/11/24 02/18/25 Rx release 90 days #90 tabs atorvastatin 40 mg tablet 40 mg PO QHS cholesterol 90 days 10/26/24 02/17/25 Rx #90 tabs albuterol sulfate 90 mcg/actuation 2 puff inhalation Q 4H PRN PRN 02/06/25 Unknown Rx aerosol inhaler (Ventolin HFA) Wheezing ##1 nitroglycerin 0.4 mg sublingual 0.4 mg sublingual Q5-1 5M PRN chest 02/07/25 Unknown Rx tablet pain #25 tabs pantoprazole 40 mg tablet,delayed 40 mg PO DAILY reflu x #90 tabs 02/22/25 Unknown Rx release (Protonix) ondansetron 4 mg disintegrating 4 mg PO Q6H PRN PRN Na usea 04/30/25 Unknown History tablet carvedilol 3.125 mg tablet 3.125 mg PO BIDCM 30 days # 60 tabs 06/25/25 Unknown Rx ferrous sulfate 325 mg (65 mg 325 mg PO 1200,1700 30 d ays #60 06/25/25 Unknown Rx iron) tablet (FeroSul) tabs furosemide 40 mg tablet (Lasix) 40 mg PO QAM #30 tabs 06/25/25 Unknown Rx Allergy/AdvReac Type Severity Reaction Status Date / Time Penicillins Allergy Hives Verified 06/25/25 09:31 Sulfa (Sulfonamide AdvReac Diarrhea Verified 06/25/25 09:31 Antibiotics) Family History Father CAD (coronary artery disease) CABG age 68; CVA (cerebral vascular accident) Myocardial infarction Mother Cancer Cervical, Melanoma, Colon Surgical History (Updated 08/02/25 @ 04:[address] Josh Murry DO) History of coronary artery stent placement (02/04/25) H/O colonoscopy Status post cardiac surgery History of coronary artery stent placement History of carpal tunnel surgery of left wrist Social History household members: spouse housing: house Smoking Status: Current every day smoker tobacco type: cigarettes Tobacco: How many years used: 30 second hand exposure: No alcohol intake: never ROS ROS ED Constitutional Constitutional ED: Denies chills or fever(s) Eyes Eyes: Denies blurry vision or change in vision ENT ENT ED: Denies sore throat Cardiovascular Cardiovascular: Reports racing heartbeat; Denies chest pain Respiratory/Chest Respiratory/Chest: Reports cough and dyspnea Gastrointestinal Gastrointestinal: Denies abdominal pain, diarrhea, nausea or vomiting Genitourinary Genitourinary ED: Denies dysuria Musculoskeletal Musculoskeletal: Denies myalgias Integumentary Denies rash Neurologic Neurologic: Denies headache(s) Hematologic/Lymphatic Hematologic/Lymphatic: Denies easy bleeding or easy bruising Allergic/Immunologic Allergic/Immunologic ED: Denies mouth swelling or tongue swelling EXAM Physical Exam Const Vital Signs: 08/01/25 22:36 08/01/25 22:40 08/01/25 22:40 Temperature 92.8 F L Temperature Source Axillary Pulse Rate 118 H 120 H Respiratory Rate 30 H 33 H Respiratory Effort Respiratory Depth Respiratory Pattern Tachypnea Tachypnea Blood Pressure 205/102 H Blood Pressure Mean 136 Pulse Ox 94 100 Oxygen Delivery Method Bi-pap Oxygen Flow Rate (L/min) Fraction of Inspired Oxygen (FIO2) 70 08/01/25 22:43 08/01/25 22:50 08/01/25 22:52 Temperature 97.3 F L Temperature Source Axillary Pulse Rate 115 H 114 H Respiratory Rate 31 H 32 H Respiratory Effort Short of Breath Labored Accessory Muscle Use Head [place] Respiratory Depth Deep Respiratory Pattern Gasping Blood Pressure 159/93 H Blood Pressure Mean 115 Pulse Ox 97 Oxygen Delivery Method Bi-pap Non-Rebreather Oxygen Flow Rate (L/min) 15 Fraction of Inspired Oxygen (FIO2) 40 08/01/25 23:00 08/01/25 23:15 08/01/25 23:30 Temperature 93.1 F L 97.6 F L Temperature Source Core Core Pulse Rate 113 H 116 H 112 H Respiratory Rate 26 H 29 H 27 H Respiratory Effort Respiratory Depth Respiratory Pattern Blood Pressure 165/106 H 159/93 H 132/88 H Blood Pressure Mean 124 114 101 Pulse Ox 93 83 98 Oxygen Delivery Method Bi-pap Bi-pap Bi-pap Oxygen Flow Rate (L/min) Fraction of Inspired Oxygen (FIO2) 08/01/25 23:45 08/01/25 23:51 08/01/25 23:55 Temperature 97.8 F 98 F Temperature Source Core Core Pulse Rate 120 H 130 H 106 H Respiratory Rate 28 H 28 H Respiratory Effort Respiratory Depth Respiratory Pattern Blood Pressure 146/126 H 146/126 H 103/74 Blood Pressure Mean 135 83 Pulse Ox 97 97 Oxygen Delivery Method Bi-pap Oxygen Flow Rate (L/min) Fraction of Inspired Oxygen (FIO2) 08/01/25 23:55 08/02/25 00:00 08/02/25 00:15 Temperature 98.0 F 98.2 F Temperature Source Core Core Pulse Rate 101 H 91 Respiratory Rate 27 H 26 H Respiratory Effort Respiratory Depth Respiratory Pattern Blood Pressure 103/74 98/73 59/45 L Blood Pressure Mean 84 81 51 Pulse Ox 100 98 Oxygen Delivery Method Bi-pap Bi-pap Oxygen Flow Rate (L/min) Fraction of Inspired Oxygen (FIO2) 08/02/25 00:23 08/02/25 00:24 08/02/25 00:30 Temperature 98.2 F 98.2 F Temperature Source Core Core Pulse Rate 94 87 Respiratory Rate 27 H 21 H Respiratory Effort Respiratory Depth Respiratory Pattern Blood Pressure 75/53 L 77/56 L 77/56 L Blood Pressure Mean 61 62 64 Pulse Ox 98 Oxygen Delivery Method Bi-pap Oxygen Flow Rate (L/min) Fraction of Inspired Oxygen (FIO2) 08/02/25 00:34 08/02/25 01:08 08/02/25 01:11 Temperature 98.2 F Temperature Source Core Pulse Rate 88 81 Respiratory Rate 18 18 16 Respiratory Effort Respiratory Depth Respiratory Pattern Blood Pressure 79/61 L 111/65 111/65 Blood Pressure Mean 69 80 Pulse Ox 97 99 Oxygen Delivery Method Bi-pap Room Air Oxygen Flow Rate (L/min) Fraction of Inspired Oxygen (FIO2) 08/02/25 01:19 08/02/25 01:25 Temperature 98.7 F Temperature Source Core Pulse Rate 80 Respiratory Rate 15 18 Respiratory Effort Respiratory Depth Respiratory Pattern Normal Blood Pressure 106/61 Blood Pressure Mean 76 Pulse Ox 100 99 Oxygen Delivery Method Room Air Oxygen Flow Rate (L/min) Fraction of Inspired Oxygen (FIO2) 35 Positive well nourished and well developed Constitutional Narrative: Patient is in moderate respiratory distress with tachypnea and accessory muscle use General Appearance ED: well developed HEENT HEENT Narrative: Normocephalic atraumatic No tongue or lip swelling There is pink frothy sputum noted in the posterior pharynx Eyes PERRL and EOMs intact bilaterally General Eye ED: Negative for pale conjunctiva or scleral icterus Neck supple and no JVD Chest Wall palpation of chest normal Chest Narrative: No bony deformity or subcutaneous emphysema noted Resp Resp Narrative: Patient is in moderate respiratory distress with tachypnea and accessory muscle use Breath sounds are diminished throughout with expiratory wheeze bilaterally in the lower lobes as well as rhonchi Cardio regular rhythm Rate: tachycardic and other Other Details: Radial and carotid pulses are equal and symmetric GI normal to inspection, nondistended, normoactive bowel sounds, non-tender, non- distended and no masses GI Narrative: No voluntary guarding or rigidity or pulsatile mass No fluid wave noted Auscultation: normoactive bowel sounds Palpation: soft Extremity Extremity Narrative: Trace pitting edema to the bilateral lower extremities that is equal and symmetric Negative Homans' sign bilaterally Neuro oriented x3 and CN's II-XII intact bilaterally Neuro Narrative: Patient is slightly obtunded with GCS of 14 Cranial nerves II through XII are grossly intact without focal neurologic deficit Sensorium / Orientation: orientation impaired Psych Mood & Affect: anxious Skin no rashes or lesions noted MDM MDM MDM Narrative Medical decision making narrative: Patient arrived to the ER hypertensive and tachycardic. Moreover she was tachypneic and pulse ox was only 70%. There was concern patient is having a COPD exacerbation with her past medical history of this especially as she has wheezing on physical exam but she was given Solu-Medrol and DuoNeb prior to arrival with minimal symptom improvement. There is also concern for pneumonia versus congestive heart failure versus viral infection such as COVID influenza or RSV. The patient reportedly had been feeling well and the symptoms came on suddenly which would go against a potential infection such as COVID influenza RSV or pneumonia. With the sudden onset of symptoms and pink frothy sputum noted in the posterior pharynx I do feel this was most likely flash pulmonary edema. Therefore she was placed on BiPAP and given nitroglycerin sublingually to reduce preload as well as captopril to reduce afterload. She was also given IV Lasix for diuresis. An EKG was obtained to assess for cardiac dysrhythmia versus potential cardiac ischemia. The initial EKG showed ST segment depression with hyperacute T waves but did not feel there was true J-point elevation greater than 1 mm to suggest acute STEMI. A repeat EKG was obtained and patient's had improvement of her tachycardia and now that she is on BiPAP and receiving medication. The repeat EKG has similar appearance to the first with hyperacute T waves and potentially elevation in V6 but there is not elevation in 2 contiguous leads indicating no STEMI. In order to ensure that I was not misinterpreting the EKGs they were sent to the embedded software manager on-call Dr. Beckwith. These and agrees that there is no acute STEMI at this time but ischemic changes. He recommended obtaining a 3rd EKG in order to assess potential improvement now that the patient's work of breathing is improving after receiving BiPAP and medication. The 3rd EKG showed similar findings to the first 2 however there was now changes in V5 and V6 to indicate potential anterior lateral ischemia. The 3rd EKG was then sent to the embedded software manager/Dr. Beckwith. He feels at this time based on the EKG findings that activating a STEMI is the most prudent form of care for the patient. Therefore STEMI alert was activated and the patient was given heparin and aspirin. The patient's labs showed a leukocytosis at 19.8 with lactic acidosis of 6.5. I was unsure if this was related to developing infection or simply stress response based on her increased work of breathing and hypoxia. Therefore I held off on providing antibiotics. Moreover with her history of CHF and admission just a few months ago due to pulmonary edema and the fact she had pink frothy sputum in her oropharynx would indicate more CHF than infection. The chest x-ray questioned developing pneumonia and I did feel that a better image with a CT scan would be more appropriate and therefore I ordered a CTA of the chest abdomen and pelvis. However because of the concern that her symptoms were related to a cardiovascular event/STEMI she went to the Clinical Case Manager first and these further studies could not be obtained to elicit whether she truly had pneumonia or not. As I felt that the patient's lactic acidosis and white count were secondary to stress response from her increased work of breathing and that this was caused by flash pulmonary edema I was reluctant to provide IV fluid as I felt this would worsen her dyspnea. History & Record Review Discussion w/independent historian: EMS personnel, Patient and Family Lab Data Attestation: I reviewed the patient's lab results. Labs: Laboratory Results - last 24 hr 08/01/25 08/02/25 08/02/25 22:48 00:45 01:11 WBC 19.8 H RBC 4.84 Hgb 14.9 Hct 47.3 H MCV 97.7 MCH 30.8 MCHC 31.5 L RDW Std Deviation 60.2 H RDW Coeff of Gerber 16.9 H Plt Count 240 MPV 10.5 Immature Gran % (Auto) 0.600 Neut % (Auto) 44.5 L Lymph % (Auto) 45.7 H [place] % (Auto) 5.4 Eos % (Auto) 2.7 Baso % (Auto) 1.1 H Absolute Neuts (auto) 8.8 H Absolute Lymphs (auto) 9.07 H Nucleated RBC % 0 Differential Comment SCANNED PT 13.8 INR 1.0 APTT 28.3 Activated Clotting Time 181 H Sodium 140 Potassium 3.7 Chloride 100 Carbon Dioxide 18.1 L Anion Gap 22 H BUN 29 H Creatinine 1.30 H Estim Creat Clear Calc 40.84 L Est GFR (MDRD) Non-Af 45 L BUN/Creatinine Ratio 22.2 H Glucose 296 H Lactic Acid 6.5 H* Calcium 9.5 Magnesium 2.8 H NT pro BNP II 288 Urine Color Yellow Urine Clarity Clear Urine pH 6.5 Ur Specific [place] 1.010 Urine Protein 30 H Urine Glucose (UA) Normal Urine Ketones Negative Urine Occult Blood 150 H Urine Nitrite Negative Urine Bilirubin Negative Urine Urobilinogen Normal Ur Leukocyte Esterase Negative Urine RBC 5-10 SEEN Urine WBC 0 SEEN Ur Squamous Epith Cells 0-5 SEEN Urine Bacteria 0 SEEN Urine Mucus 0 SEEN ABG Data ABG results: ABG 08/01/25 22:56 Specimen Type ART Sample Site R Radial pH 7.07 L* Bicarbonate Actual 17.6 L Total CO2 20 Base Excess -13 L O2 Saturation 99 O2 % 100.0 ABG pCO2 61.3 H ABG pO2 170 H Kel Test N/A O2 Delivery Device NRB Vent Mode Not entered Crit Call To/Read Back Yes Blood Gas Notified Whom Dr Will Blood Gas Notified Time 22:58:44 Radiography Diagnostic Testing: Clinical Impression(s) from Imaging Studies Chest X-Ray 08/01/25 22:42 IMPRESSION: Bilateral lower lung zone hazy airspace opacities, likely pneumonia. Background of moderate-advanced chronic interstitial emphysematous lung changes. Reading Location: [facility] Chest x-ray as interpreted by the emergency medicine physician reveals increased pulmonary vascular congestion concerning for CHF with bibasilar airspace opacities Management Discussion w/another healthcare provider: Doors Prefitter Critical Care Time Critical Care Time: Yes Critical care time (excluding procedures): Discussing w/Patient &/or Family/Talk Show Host, Discussing w/Consultants and - (Please note critical care time of 33 minutes) Discharge Plan Dx/Rx/DC Orders Clinical Impression: Flash pulmonary edema, Severe mitral valve regurgitation, COPD (chronic obstructive pulmonary disease), CAD (coronary artery disease), ST elevation (STEMI) myocardial infarction Disposition Disposition: Acute Care Hospital [facility] Discharge Date/Time: 08/02/25 01:43
[2025-08-02 00:58] LABS: Mucous, Urine 0 SEEN /hpf (<or=2+)
[2025-08-02] MEDS: Heparin Injection (Vial) 5,000 UNIT/ML VIAL 4000 UNIT SC (00:58)
[2025-08-02 01:08] LABS: Color, Urine Yellow (Yellow); Glucose, Dipstick Normal (Normal); Ketone-Dipstick Negative (Negative); Leukocyte Esterase-Dipstick Negative /ul (Negative); Nitrite-Dipstick Negative (Negative); Occult Blood-Urine 150 /ul (Negative); Protein-Dipstick 30 mg/dl (Negative); Specific Gravity, Urine 1.010 (1.002-1.030); Urine Bilirubin Dipstick Negative (Negative)
[2025-08-02 01:14] LABS: Red Blood Cells-Urine 5-10 SEEN /hpf (0-5); Squamous Epithelial Cells - UA 0-5 SEEN /hpf (5-10)
[2025-08-02 02:09] LABS: Allen Test Positive; Base Excess 0 mmol/L (-2 to +2); Comment 16/8 16 35%; FI02 35.0; PO2 84 mmHG (75-100); RR 16; SITE R Fem; SO2 97 % (95-99)
[2025-08-02 02:37] LABS: ACT Activated Clotting Time 181 sec (74-137)
--- NOTE | 2025-08-02 02:54 | CON.PCM.CA_ITS ---
Assessment & Plan Assessment/Plan (1) Acute on chronic congestive heart failure: PLAN: History of moderate to severe mitral valve regurgitation with mitral valve prolapse. Continue diuretics. Start low-dose ACEI for afterload reduction. Recommend transfer to the tertiary facility for evaluation for mitral valve repair and CABG. (2) Mitral valve insufficiency: PLAN: See #1 above. Severe mitral valve regurgitation noted on left ventriculography. Diurese. Afterload reduction with ACEI. Transfer to tertiary facility for evaluation for mitral valve repair. (3) CAD (coronary artery disease): QUALIFIERS: Coronary Disease-Associated Artery/Lesion type: [place] artery [place] vs. transplanted heart: [place] heart Associated angina: without angina Qualified Code(s): I25.10 - Atherosclerotic heart disease of [place] coronary artery without angina pectoris PLAN: Recommend CABG with her mitral valve repair with bypasses to the LAD, RCA, diagonal and obtuse marginal. (4) Dyslipidemia: PLAN: Atorvastatin. (5) COPD (chronic obstructive pulmonary disease): PLAN: As per internal medicine. HPI Consult Data Date of Consult: 08/02/25 HPI Narrative Reason for Consultation: Acute onset dyspnea HPI Narrative: 65-year-old female with past medical history significant for coronary artery disease, status post PCI to the LAD and left circumflex, HFpEF, mitral valve prolapse with moderate to severe mitral valve regurgitation, COPD and dyslipidemia. She presented to the emergency room with complaints of acute onset shortness of breath. On arrival in the emergency room, she was noted to be in flash pulmonary edema. She was administered nitroglycerin, captopril and furosemide. With that, she dropped her blood pressure. She was therefore started on norepinephrine. ECG was done. As it was suspicious for acute coronary syndrome with possible ST elevations in inferolateral leads, we were consulted. [facility] Medical History Mitral valve insufficiency Anemia GERD (gastroesophageal reflux disease) Smoker CPAP (continuous positive airway pressure) dependence Non-ST elevation [place] (NSTEMI) Hematuria UTI (urinary tract infection) Hyperlipidemia Atherosclerosis of coronary artery of [place] heart without angina pectoris Myocardial infarct Home Medications ?Medication ?Instructions ?Recorded ?Last Taken ?Type aspirin 81 mg tablet,delayed 81 mg PO DAILY@0800 [facility] 10/11/24 02/18/25 Rx release 90 days #90 tabs atorvastatin 40 mg tablet 40 mg PO QHS cholesterol 90 days 10/26/24 02/17/25 Rx #90 tabs albuterol sulfate 90 mcg/actuation 2 puff inhalation Q 4H PRN PRN 02/06/25 Unknown Rx aerosol inhaler (Ventolin HFA) Wheezing ##1 nitroglycerin 0.4 mg sublingual 0.4 mg sublingual Q5-1 5M PRN chest 02/07/25 Unknown Rx tablet pain #25 tabs pantoprazole 40 mg tablet,delayed 40 mg PO DAILY reflu x #90 tabs 02/22/25 Unknown Rx release (Protonix) ondansetron 4 mg disintegrating 4 mg PO Q6H PRN PRN Na usea 04/30/25 Unknown History tablet carvedilol 3.125 mg tablet 3.125 mg PO BIDCM 30 days # 60 tabs 06/25/25 Unknown Rx ferrous sulfate 325 mg (65 mg 325 mg PO 1200,1700 30 d ays #60 06/25/25 Unknown Rx iron) tablet (FeroSul) tabs furosemide 40 mg tablet (Lasix) 40 mg PO QAM #30 tabs 06/25/25 Unknown Rx Allergy/AdvReac Type Severity Reaction Status Date / Time Penicillins Allergy Hives Verified 06/25/25 09:31 Sulfa (Sulfonamide AdvReac Diarrhea Verified 06/25/25 09:31 Antibiotics) Family History Father CAD (coronary artery disease) CABG age 68; CVA (cerebral vascular accident) Myocardial infarction Mother Cancer Cervical, Melanoma, Colon Surgical History H/O colonoscopy Status post cardiac surgery History of coronary artery stent placement History of carpal tunnel surgery of left wrist History of coronary artery stent placement (02/04/25) Social History household members: spouse housing: house Smoking Status: Current every day smoker tobacco type: cigarettes Tobacco: How many years used: 30 second hand exposure: No alcohol intake: never Physical Exam Narrative Comfortable. On BiPAP. Lying flat in the bed. No apparent distress. Heart sounds 1 and 2 noted. Chest examination with bibasilar crepitations. Awake and alert. Objective Data Vital Signs: Vital Signs Temp Pulse Resp BP Pulse Ox O2 Del Method O2 Flow Rate 98.2 F 77 16 111/65 99 Room Air 15 08/02/25 01:42 08/02/25 01:42 08/02/25 01:42 08/02/25 01:42 08/02/25 01:42 08/02/25 01:19 08/01/25 22:50 FiO2 35 08/02/25 01:25 Oxygen Flow Rate (L/min) 15 Oxygen Delivery Method Room Air Weight: 155 lb 6.814 oz Body Mass Index (BMI) 24.3 Intake & Output: Intake and Output for Last 24 Hours 07/31/25 08/01/25 08/02/25 23:59 23:59 23:59 Intake Total 0.94 / 0.94 Balance 0.94 / 0.94 Lab / Micro Data 08/01/25 22:48 08/01/25 22:48 Labs: Laboratory Results - last 24 hr 08/01/25 22:48: WBC 19.8 H, RBC 4.84, Hgb 14.9, Hct 47.3 H, MCV 97.7, MCH 30.8, MCHC 31.5 L, RDW Std Deviation 60.2 H, RDW Coeff of Gerber 16.9 H, Plt Count 240, MPV 10.5, Immature Gran % (Auto) 0.600, Neut % (Auto) 44.5 L, Lymph % (Auto) 45.7 H, [place] % (Auto) 5.4, Eos % (Auto) 2.7, Baso % (Auto) 1.1 H, Absolute Neuts (auto) 8.8 H, Absolute Lymphs (auto) 9.07 H, Nucleated RBC % 0, Differential Comment SCANNED, PT 13.8, INR 1.0, APTT 28.3, Sodium 140, Potassium 3.7, Chloride 100, Carbon Dioxide 18.1 L, Anion Gap 22 H, BUN 29 H, Creatinine 1.30 H , Estim Creat Clear Calc 40.84 L, Est GFR (MDRD) Non-Af 45 L, BUN/Creatinine Ratio 22.2 H, Glucose 296 H, Lactic Acid 6.5 H*, Calcium 9.5, Magnesium 2.8 H, NT pro BNP II 288 08/02/25 00:45: Urine Color Yellow, Urine Clarity Clear, Urine pH 6.5, Ur Specific [place] 1.010, Urine Protein 30 H, Urine Glucose (UA) Normal, Urine Ketones Negative, Urine Occult Blood 150 H, Urine Nitrite Negative, Urine Bilirubin Negative, Urine Urobilinogen Normal, Ur Leukocyte Esterase Negative, Urine RBC 5-10 SEEN, Urine WBC 0 SEEN, Ur Squamous Epith Cells 0-5 SEEN, Urine Bacteria 0 SEEN, Urine Mucus 0 SEEN 08/02/25 01:11: Activated Clotting Time 181 H Micro: Microbiology 08/01/25 23:15 Mucosa - Nose SARS-CoV-2, Influenza & RSV (PCR) - Final ABG Data ABG results: ABG 08/01/25 08/02/25 22:56 01:59 Specimen Type ART ART Sample Site R Radial R Fem pH 7.07 L* 7.43 Bicarbonate Actual 17.6 L 24.7 Total CO2 20 26 Base Excess -13 L 0 O2 Saturation 99 97 O2 % 100.0 35.0 ABG pCO2 61.3 H 37.1 ABG pO2 170 H 84 Kel Test N/A Positive Respiration Rate 16 O2 Delivery Device NRB BiPAP Vent Mode Not entered Not entered Crit Call To/Read Back Yes Blood Gas Notified Whom Dr Will Blood Gas Notified Time 22:58:44 Clinical Comments 08/06 16 35% Cardiology Labs/Tests 08/01/25 22:48: WBC 19.8 H, RBC 4.84, Hgb 14.9, Hct 47.3 H, MCV 97.7, MCH 30.8, MCHC 31.5 L, Plt Count 240, MPV 10.5, Immature Gran % (Auto) 0.600, Neut % (Auto) 44.5 L, Lymph % (Auto) 45.7 H, [place] % (Auto) 5.4, Eos % (Auto) 2.7, Baso % (Auto) 1.1 H, Absolute Neuts (auto) 8.8 H, Nucleated RBC % 0, PT 13.8, INR 1.0, APTT 28.3, Sodium 140, Potassium 3.7, Chloride 100, Carbon Dioxide 18.1 L, Anion Gap 22 H, BUN 29 H, Creatinine 1.30 H, Est GFR (MDRD) Non-Af 45 L, B UN/Creatinine Ratio 22.2 H, Glucose 296 H, Lactic Acid 6.5 H*, Calcium 9.5, M agnesium 2.8 H 08/01/25 22:56: pH 7.07 L*, Bicarbonate Actual 17.6 L, Base Excess -13 L, O2 Saturation 99, ABG pCO2 61.3 H, ABG pO2 170 H, Kel Test N/A 08/02/25 00:45: Urine Color Yellow, Urine Clarity Clear, Urine pH 6.5, Ur Specific [place] 1.010, Urine Protein 30 H, Urine Glucose (UA) Normal, Urine Ketones Negative, Urine Occult Blood 150 H, Urine Nitrite Negative, Urine Bilirubin Negative, Urine Urobilinogen Normal, Ur Leukocyte Esterase Negative, Urine RBC 5-10 SEEN, Urine WBC 0 SEEN 08/02/25 01:59: pH 7.43, Bicarbonate Actual 24.7, Base Excess 0, O2 Saturation 97, ABG pCO2 37.1, ABG pO2 84, Kel Test Positive Rhythm: EKG: ECHO: Stress Test: Cardiac Cath: PCI: CT Surgery: Holter monitor: EPS: PPM: CXR: Chest CT Scan: Radiography Diagnostic Testing: Radiology Impression Chest X-Ray 08/01/25 22:42 IMPRESSION: Bilateral lower lung zone hazy airspace opacities, likely pneumonia. Background of moderate-advanced chronic interstitial emphysematous lung changes. Reading Location: [id number] Risk Score for UA/STEMI Assesmment (YES = 1) Risk Stratification Applicable: No
[2025-08-02 02:56] LABS: Reflex Lactate? Y
--- NOTE | 2025-08-02 03:03 | PCM.HP.STD ---
[facility] Date of Admission: 08/02/25 Date of Service: 08/02/25 Chief Complaint: SOB. [facility] Narrative MIGUEL MATHIAS, is a 65 F with a past medical history of essential hypertension; on carvedilol twice daily plus furosemide, hyperlipidemia; on atorvastatin, former tobacco abuse; greater than ~30 pack years with subsequent COPD, ANDRIA; on CPAP, history of CAD; s/p non-ST elevation [place] with subsequent stent to LAD and LCx (February 04, 2025) on baby aspirin daily plus as needed SL NTG, history of CHF, history of severe mitral valve regurgitation with prolapse followed by certified physical therapist assistant at [facility] with recent echocardiogram done here on May 24, 2025 that revealed LVEF ~65% with mild segmental systolic dysfunction and moderate papillary muscle dysfunction of the mitral valve with moderately-severe (3+) anteriorly directed mitral valve insufficiency, RICHARD; on ferrous sulfate, history of GI bleed; s/p colonoscopy, history of hematuria, history of UTI, GERD; on pantoprazole and OA who presented to [facility] ER complaining of shortness of breath. She was suspected to have flash pulmonary edema and treated with nitroglycerin, captopril and furosemide which caused hypotension causing her to then be started on norepinephrine drip. She was also noted to be in acute respiratory distress requiring BiPAP with confirmatory ABG revealing pH 7.07/ pCO2 61.3 mmHg/ PO2 170 mmHg/ HCO3 17.6 mmol/L at 99% on 100% NRB at 22:58 hours on August 01, 2025. EKG was not done low suspicious for acute coronary syndrome with ST elevations in the inferolateral leads resulting in code STEMI being activated. Patient was then taken for [facility] via femoral artery approach with patient noted to have no flow-limiting ischemia. The certified physical therapist assistant on-call then informed me at approximately 3 AM the patient would benefit from transfer to [facility] for likely surgical treatment of her severe mitral valve disease. A further review of her records revealed Leukocytosis of 19.8 K with Lactic Acidosis of 6.5 mmol/L were both present on admission with a corresponding CXR that revealed bilateral lower lung zone hazy airspace opacities, likely Pneumonia with a background of moderate-advanced chronic interstitial emphysematous lung changes with an overall clinical presentation concerning for Sepsis; but with the patient apparently not having received sepsis fluid bolus or antibiotics in spite of initial orders for IV vancomycin in ER. Therefore, I spoke with the pharmacist on-call and ordered IV vancomycin and IV aztreonam in light of per PCN allergy (hives) with plan for limited 500 cc fluid bolus given her severe mitral valve disease and with repeat lactate pending at this time. She was then admitted to the ICU for ongoing care for status is expected to extend beyond 2 midnights. [facility] Medical History (Updated 08/02/25 @ 04:[address] Josh Murry, DO) Mitral valve insufficiency Anemia GERD (gastroesophageal reflux disease) Smoker CPAP (continuous positive airway pressure) dependence Non-ST elevation [place] (NSTEMI) Hematuria UTI (urinary tract infection) Hyperlipidemia Atherosclerosis of coronary artery of [place] heart without angina pectoris Myocardial infarct Home Medications ?Medication ?Instructions ?Recorded ?Last Taken ?Type aspirin 81 mg tablet,delayed 81 mg PO DAILY@0800 heart health 10/11/24 02/18/25 Rx release 90 days #90 tabs atorvastatin 40 mg tablet 40 mg PO QHS cholesterol 90 days 10/26/24 02/17/25 Rx #90 tabs albuterol sulfate 90 mcg/actuation 2 puff inhalation Q4H PRN PRN 02/06/25 Unknown Rx aerosol inhaler (Ventolin HFA) Wheezing ##1 nitroglycerin 0.4 mg sublingual 0.4 mg sublingual Q5-15M PRN chest 02/07/25 Unknown Rx tablet pain #25 tabs pantoprazole 40 mg tablet,delayed 40 mg PO DAILY reflux #90 tabs 02/22/25 Unknown Rx release (Protonix) ondansetron 4 mg disintegrating 4 mg PO Q6H PRN PRN Nausea 04/30/25 Unknown History tablet carvedilol 3.125 mg tablet 3.125 mg PO BIDCM 30 days #60 tabs 06/25/25 Unknown Rx ferrous sulfate 325 mg (65 mg 325 mg PO 1200,1700 30 days #60 06/25/25 Unknown Rx iron) tablet (FeroSul) tabs furosemide 40 mg tablet (Lasix) 40 mg PO QAM #30 tabs 06/25/25 Unknown Rx Allergy/AdvReac Type Severity Reaction Status Date / Time Penicillins Allergy Hives Verified 06/25/25 09:31 Sulfa (Sulfonamide AdvReac Diarrhea Verified 06/25/25 09:31 Antibiotics) Family History Father CAD (coronary artery disease) CABG age 68; CVA (cerebral vascular accident) Myocardial infarction Mother Cancer Cervical, Melanoma, Colon Surgical History (Updated 08/02/25 @ 04:[address] Josh Murry DO) History of coronary artery stent placement (02/04/25) H/O colonoscopy Status post cardiac surgery History of coronary artery stent placement History of carpal tunnel surgery of left wrist Social History household members: spouse housing: house Smoking Status: Current every day smoker tobacco type: cigarettes Tobacco: How many years used: 30 second hand exposure: No alcohol intake: never ROS ROS Narrative Review of Systems: Constitutional: Patient denies fever or chills. Eyes: Patient denies changes in vision or discharge from eyes. ENT: Patient denies runny nose, sore throat or ear pain. CV: Patient admits to racing heartbeat but she denies chest pain. GI: Patient denies abdominal pain, nausea, vomiting, diarrhea or constipation. : Patient denies dysuria or hematuria. MSK: Patient denies arthralgias or myalgias. Skin: Patient denies rash. Psych: Patient denies symptoms of uncontrolled depression or anxiety. Neuro: Patient denies headache, paresthesias or focal neurologic deficits. Allergy: Patient denies lip swelling, tongue swelling or urticaria. Hematology: Patient denies easy bleeding or easy bruisability. Endocrinology: Patient denies polyuria, polydipsia, polyphagia or heat/cold intolerance. 14 point ROS otherwise negative except for positives noted above in HPI. Vital Signs Vital Signs Vital Signs: 08/01/25 22:36 08/01/25 22:40 08/01/25 22:40 Temperature 92.8 F L Temperature Source Axillary Pulse Rate 118 H 120 H Respiratory Rate 30 H 33 H Respiratory Effort Respiratory Depth Respiratory Pattern Tachypnea Tachypnea Blood Pressure 205/102 H Blood Pressure Mean 136 Pulse Ox 94 100 Oxygen Delivery Method Bi-pap Oxygen Flow Rate (L/min) Fraction of Inspired Oxygen (FIO2) 70 08/01/25 22:43 08/01/25 22:50 08/01/25 22:52 Temperature 97.3 F L Temperature Source Axillary Pulse Rate 115 H 114 H Respiratory Rate 31 H 32 H Respiratory Effort Short of Breath Labored Accessory Muscle Use Head [place] Respiratory Depth Deep Respiratory Pattern Gasping Blood Pressure 159/93 H Blood Pressure Mean 115 Pulse Ox 97 Oxygen Delivery Method Bi-pap Non-Rebreather Oxygen Flow Rate (L/min) 15 Fraction of Inspired Oxygen (FIO2) 40 08/01/25 23:00 08/01/25 23:15 08/01/25 23:30 Temperature 93.1 F L 97.6 F L Temperature Source Core Core Pulse Rate 113 H 116 H 112 H Respiratory Rate 26 H 29 H 27 H Respiratory Effort Respiratory Depth Respiratory Pattern Blood Pressure 165/106 H 159/93 H 132/88 H Blood Pressure Mean 124 114 101 Pulse Ox 93 83 98 Oxygen Delivery Method Bi-pap Bi-pap Bi-pap Oxygen Flow Rate (L/min) Fraction of Inspired Oxygen (FIO2) 08/01/25 23:45 08/01/25 23:51 08/01/25 23:55 Temperature 97.8 F 98 F Temperature Source Core Core Pulse Rate 120 H 130 H 106 H Respiratory Rate 28 H 28 H Respiratory Effort Respiratory Depth Respiratory Pattern Blood Pressure 146/126 H 146/126 H 103/74 Blood Pressure Mean 135 83 Pulse Ox 97 97 Oxygen Delivery Method Bi-pap Oxygen Flow Rate (L/min) Fraction of Inspired Oxygen (FIO2) 08/01/25 23:55 08/02/25 00:00 08/02/25 00:15 Temperature 98.0 F 98.2 F Temperature Source Core Core Pulse Rate 101 H 91 Respiratory Rate 27 H 26 H Respiratory Effort Respiratory Depth Respiratory Pattern Blood Pressure 103/74 98/73 59/45 L Blood Pressure Mean 84 81 51 Pulse Ox 100 98 Oxygen Delivery Method Bi-pap Bi-pap Oxygen Flow Rate (L/min) Fraction of Inspired Oxygen (FIO2) 08/02/25 00:23 08/02/25 00:24 08/02/25 00:30 Temperature 98.2 F 98.2 F Temperature Source Core Core Pulse Rate 94 87 Respiratory Rate 27 H 21 H Respiratory Effort Respiratory Depth Respiratory Pattern Blood Pressure 75/53 L 77/56 L 77/56 L Blood Pressure Mean 61 62 64 Pulse Ox 98 Oxygen Delivery Method Bi-pap Oxygen Flow Rate (L/min) Fraction of Inspired Oxygen (FIO2) 08/02/25 00:34 08/02/25 01:08 08/02/25 01:11 Temperature 98.2 F Temperature Source Core Pulse Rate 88 81 Respiratory Rate 18 18 16 Respiratory Effort Respiratory Depth Respiratory Pattern Blood Pressure 79/61 L 111/65 111/65 Blood Pressure Mean 69 80 Pulse Ox 97 99 Oxygen Delivery Method Bi-pap Room Air Oxygen Flow Rate (L/min) Fraction of Inspired Oxygen (FIO2) 08/02/25 01:19 08/02/25 01:25 08/02/25 01:42 Temperature 98.7 F 98.2 F Temperature Source Core Pulse Rate 80 77 Respiratory Rate 15 18 16 Respiratory Effort Respiratory Depth Respiratory Pattern Normal Blood Pressure 106/61 111/65 Blood Pressure Mean 76 80 Pulse Ox 100 99 99 Oxygen Delivery Method Room Air Oxygen Flow Rate (L/min) Fraction of Inspired Oxygen (FIO2) 35 Weight Weight: 155 lb 6.814 oz Body Mass Index (BMI) 24.3 Physical Exam Const alert and oriented x3 Constitutional Narrative: Patient appears comfortable on 4L NC. General Appearance: cooperative HEENT normocephalic, head/scalp atraumatic, hearing grossly normal bilaterally and moist oral mucous membranes Eyes PERRL, EOMs intact bilaterally and conjunctivae normal Neck no lymphadenopathy and supple Resp Resp Narrative: Diminished breath sounds throughout. Cardio regular rate and regular rhythm GI normal to inspection, nondistended, normoactive bowel sounds, soft to palpation, non-tender and non-distended Extremity normal to inspection, full ROM and no clubbing, cyanosis or edema Skin Skin Narrative: Patient has no evidence of rash. Neuro oriented x3, CN's II-XII intact bilaterally, moves all extremities and no focal motor deficits Sensorium / Orientation: awake, alert, oriented to person, oriented to place and oriented to time Speech: speech normal Psych affect normal Results Medical Records Data Attestation: I reviewed the patient's medical records Lab / Micro Data Attestation: I reviewed the patient's lab results. 08/02/25 03:15 08/02/25 03:15 Labs: Laboratory Results - last 24 hr 08/01/25 22:48: WBC 19.8 H, RBC 4.84, Hgb 14.9, Hct 47.3 H, MCV 97.7, MCH 30.8, MCHC 31.5 L, RDW Std Deviation 60.2 H, RDW Coeff of Gerber 16.9 H, Plt Count 240, MPV 10.5, Immature Gran % (Auto) 0.600, Neut % (Auto) 44.5 L, Lymph % (Auto) 45.7 H, Patrick % (Auto) 5.4, Eos % (Auto) 2.7, Baso % (Auto) 1.1 H, Absolute Neuts (auto) 8.8 H, Absolute Lymphs (auto) 9.07 H, Nucleated RBC % 0, Differential Comment SCANNED, PT 13.8, INR 1.0, APTT 28.3, Sodium 140, Potassium 3.7, Chloride 100, Carbon Dioxide 18.1 L, Anion Gap 22 H, BUN 29 H, Creatinine 1.30 H, Estim Creat Clear Calc 40.84 L, Est GFR (MDRD) Non-Af 45 L, BUN/Creatinine Ratio 22.2 H, Glucose 296 H, Lactic Acid 6.5 H*, Calcium 9.5, Magnesium 2.8 H, NT pro BNP II 288 08/02/25 00:45: Urine Color Yellow, Urine Clarity Clear, Urine pH 6.5, Ur Specific [place] 1.010, Urine Protein 30 H, Urine Glucose (UA) Normal, Urine Ketones Negative, Urine Occult Blood 150 H, Urine Nitrite Negative, Urine Bilirubin Negative, Urine Urobilinogen Normal, Ur Leukocyte Esterase Negative, Urine RBC 5-10 SEEN, Urine WBC 0 SEEN, Ur Squamous Epith Cells 0-5 SEEN, Urine Bacteria 0 SEEN, Urine Mucus 0 SEEN 08/02/25 01:11: Activated Clotting Time 181 H Micro: Microbiology 08/01/25 23:15 Mucosa - Nose SARS-CoV-2, Influenza & RSV (PCR) - Final ABG Data ABG results: ABG 08/01/25 08/02/25 22:56 01:59 Specimen Type ART ART Sample Site R Radial R Fem pH 7.07 L* 7.43 Bicarbonate Actual 17.6 L 24.7 Total CO2 20 26 Base Excess -13 L 0 O2 Saturation 99 97 O2 % 100.0 35.0 ABG pCO2 61.3 H 37.1 ABG pO2 170 H 84 Kel Test N/A Positive Respiration Rate 16 O2 Delivery Device NRB BiPAP Vent Mode Not entered Not entered Crit Call To/Read Back Yes Blood Gas Notified Whom Dr Will Blood Gas Notified Time 22:58:44 Clinical Comments 08/06 16 35% Imaging Radiology Impression Chest X-Ray 08/01/25 22:42 IMPRESSION: Bilateral lower lung zone hazy airspace opacities, likely pneumonia. Background of moderate-advanced chronic interstitial emphysematous lung changes. Reading Location: [facility] Assessment & Plan Assessment/Plan (1) Flash pulmonary edema: (2) Acute respiratory failure with hypoxia and hypercapnia: (3) Abnormal EKG: (4) Sepsis: QUALIFIERS: Acute respiratory failure type: unspecified Sepsis acute organ dysfunction status: with acute organ dysfunction Sepsis type: sepsis due to unspecified organism Severe sepsis acute organ dysfunction type: acute respiratory failure Severe sepsis shock status: with septic shock Qualified Code(s): A41.9 - Sepsis, unspecified organism; R65.21 - Severe sepsis with septic shock; J96.00 - Acute respiratory failure, unspecified whether with hypoxia or hypercapnia (5) Leukocytosis: QUALIFIERS: Leukocytosis type: unspecified Qualified Code(s): D72.829 - Elevated white blood cell count, unspecified (6) Lactic acidosis: (7) Pneumonia: QUALIFIERS: Laterality: bilateral Lung location: unspecified part of lung Pneumonia type: due to unspecified organism Qualified Code(s): J18.9 - Pneumonia, unspecified organism (8) Adverse drug reaction: QUALIFIERS: Encounter type: initial encounter Qualified Code(s): T50.905A - Adverse effect of unspecified drugs, medicaments and biological substances, initial encounter (9) Severe mitral valve regurgitation: (10) COPD (chronic obstructive pulmonary disease): QUALIFIERS: COPD type: unspecified COPD Qualified Code(s): J44.9 - Chronic obstructive pulmonary disease, unspecified PLAN: Plan 1. Flash Pulmonary Edema with Acute Hypoxic/Hypercapnic Respiratory Failure requiring BiPAP with CODE STEMI called in ER with subsequent LHC that revealed no flow-limiting ischemia - Admit to ICU. Patient already weaned off BiPAP onto 4L NC. Repeat ABG revealed pH 7.43/ pCO2 37.1 mmHg/ PO2 84 mmHg/ HCO3 24.7 mmol/L on BiPAP 16/8 with 35% FiO2. 2. Leukocytosis of 19.8 K with Lactic Acidosis of 6.5 mmol/L were both present on admission with a corresponding CXR that revealed bilateral lower lung zone hazy airspace opacities, likely Pneumonia with a background of moderate-advanced chronic interstitial emphysematous lung changes with an overall clinical presentation concerning for Sepsis complicating #1 - Initiate therapy with empiric IV vancomycin and IV aztreonam and await culture & sensitivity data. Recheck lactate to follow trend. We will bolus with 500cc NS only given her severe mitral valve disease with persistent hypotension still on norepinephrine drip. Give acetaminophen prn for pain or fever. 3. Adverse Drug Reaction to multiple antihypertensive agents resulting in profound hypotension that required treatment with IV norepinephrine drip compounding #1 & #2 - Wean norepinephrine drip as tolerated. 4. History of severe mitral valve regurgitation with prolapse followed by certified physical therapist assistant at [facility] adding to the medical complexity of #1- #3 - Clinical Data Coordinator on-call has reached out to [facility] to help expedite transfer with help greatly appreciated. Transfer should be pending for the equity structurer of August 02, 2025. 5. History of CAD; s/p non-ST elevation [place] with subsequent stent to LAD and LCx (February 04, 2025) on baby aspirin daily plus as needed SL NTG adding to the burden of disease outlined from #1 - #4 - Noted. 6. History of chronic diastolic CHF; with preserved LVEF of ~65%, moderate papillary muscle dysfunction of the mitral valve and moderately-severe (3+) anteriorly directed mitral valve insufficiency - Noted with normal-range NT pro-BNP II of 288 pg/mL present on admission arguing against superimposed CHF exacerbation. 7. Former tobacco abuse; greater than ~30 pack years with subsequent COPD plus ANDRIA; on CPAP - Stable with no evidence of acute flare at this time so IV methylprednisolone was not given. 8. Essential hypertension; on carvedilol twice daily plus furosemide - Hold scheduled antihypertensives at this time in light of patient still requiring norepinephrine drip IV to treat hypotension. 9. Hyperlipidemia; on atorvastatin - Resume statin and check Lipid Profile. 10. RICHARD; on ferrous sulfate - Stable with hemoglobin of 14.9 g/dL and MCV of 97.7 fL present on admission. 11. History of GI bleed; s/p colonoscopy - Noted with no evidence of recurrence at this time. 12. History of hematuria - Noted with no complaints of hematuria at this time. 13. History of UTI - Noted with UA negative for infection this admission. 14. GERD; on pantoprazole - Resume PPI. 15. OA - Stable. We will give acetaminophen prn for pain or fever as outlined in #2. 16. DVT prophylaxis - Patient was initiated on IV heparin for #1. Total time: Approximately (but not less than) 75 minutes. Sepsis Attestation Sepsis Alert: Yes Sepsis Attestation: Agree w/Sepsis Date exam was performed: 08/02/25 Time exam was performed: 04:35 Possible Source of Sepsis: Pulmonary Sepsis Organ Dysfunction Criteria Present: SBP < 90 mmHg or MAP < 65 mmHg, SBP decrease of more than 40 mmHg, Acute Respiratory Failure (New need for BiPAP/CPAP or MV) and Lactic Acid > 2 mmol/L Supportive Findings: She was intitally suspected to have flash pulmonary edema and treated with nitroglycerin, captopril and furosemide which caused hypotension causing her to then be started on norepinephrine drip. She was also noted to be in acute respiratory distress requiring BiPAP with confirmatory ABG revealing pH 7.07/ pCO2 61.3 mmHg/ PO2 170 mmHg/ HCO3 17.6 mmol/L at 99% on 100% NRB at 22:58 hours on August 01, 2025. EKG was not done low suspicious for acute coronary syndrome with ST elevations in the inferolateral leads resulting in code STEMI being activated. Patient was then taken for [facility] via femoral artery approach with patient noted to have no flow-limiting ischemia. The certified physical therapist assistant on-call then informed me at approximately 3 AM the patient would benefit from transfer to [facility] for likely surgical treatment of her severe mitral valve disease. A further review of her records revealed Leukocytosis of 19.8 K with Lactic Acidosis of 6.5 mmol/L were both present on admission with a corresponding CXR that revealed bilateral lower lung zone hazy airspace opacities, likely Pneumonia with a background of moderate-advanced chronic interstitial emphysematous lung changes with an overall clinical presentation concerning for Sepsis; but with the patient apparently not having received sepsis fluid bolus or antibiotics in spite of initial orders for IV vancomycin in ER. Therefore, I spoke with the pharmacist on-call and ordered IV vancomycin and IV aztreonam in light of per PCN allergy (hives) with plan for limited 500 cc fluid bolus given her severe mitral valve disease and with repeat lactate pending at this time. Fluid Resuscitation Fluid resuscitation indicated?: Yes Fluid Resuscitation ordered: Lesser volume fluid bolus ordered Amount of fluid ordered: 500 Reason for lesser fluid bolus:: Concern for fluid overload Sepsis Note Date exam was performed: 08/02/25 Time exam was performed: 06:30 Sepsis Attestation: Sepsis re-evaluation was performed Response to fluids: Non Fluid responsive hypotension and Vasopressors started Charges/Coding Visit Charges Inpatient E&M: 64356 Init Hosp L3
--- NOTE | 2025-08-02 03:18 | CL.D_ITS ---
Patient Name: MIGUEL MATHIAS Study Date: 08/02/2025 Performing: Shira Beckwith MD Ht: 67 inches 170.18 cm : 1960 Wt: 155.6 lbs 70.5 kg Age: 65 Gender: female BSA: 1.82 PROCEDURE(S) PERFORMED [id number])LHC/COR/LV CLINICAL PROFILE AND INDICATIONS Indications: ACS <= 24 hrs Heart Failure: NYHA Class: 4, Newly Diagnosed: No, Heart Failure Type: Systolic Stress/Imaging Stress/Image Study Performed: No CAD Presentations: Other: Acute dyspnea CONCLUSIONS 70% Mid LAD, 90% ostial (jailed) D1 70% Prox LCX, 80% Prox OM2 80% Mid RCA LVEF 65% Severe MR RECOMMENDATIONS DESCRIPTION OF PROCEDURE The patient arrived to the procedure lab. The risks and benefits of the procedure as well as a full description of our services here and current unavailability of surgical backup were fully explained to the patient and/or their significant other prior to the catheterization. The Timeout was completed, verifying the correct patient and procedure. The patient's procedural site was prepped and draped in the usual fashion. Local anesthetic was given subcutaneously to right radial region with Lidocaine 2%. Local anesthetic was given subcutaneously to right groin region with Lidocaine 2%. Using a modified Seldinger technique, and ultrasound guidance,arterial access was obtained via the right femoral artery, a 6Fr sheath was inserted. Left Coronary Artery selective angiography was performed in multiple views using a 5 Fr. JL4 catheter. Right Coronary Artery selective angiography was then performed in multiple views using a 5 Fr. JR 4 catheter. Left Ventriculography was performed in [place] projection using a 5 Fr. Pigtail catheter. LV to AO pullback pressures were then recorded.Contrast was injected through the sheath and the Right Iliac and Femoral artery were assessed for possible closure device.The arterial sheath was pulled and a Perclose closure device was deployed for hemostasis CORONARY ANGIOGRAPHY DOMINANCE: Right Dominant LEFT HEART ASSESSMENT Left Ventricular Ejection Fraction: by LV Gram 65 % LVEDP: 19 mmHg LEFT MAIN: Angiographically normal LEFT ANTERIOR DESCENDING ARTERY: LAD: Tubular 70% Mid lesion in LAD DIAGONAL 1: Tubular 90% Ostial lesion in DIAG1 OM 1: Tubular 80% Proximal lesion in MARG2 OM 2: Tubular 80% Proximal lesion in MARG2 RIGHT CORONARY ARTERY: RCA: Tubular 80% Proximal lesion in RCA Tubular 70% Ostial lesion in RCA VALVE FINDINGS: Mitral Valve Insufficiency - Grade 4 COMPLICATIONS No Complications PROCEDURE MEDICATIONS Oxygen: 16/8 L/min via bipap. See Resp Record for Settings 60 percent fio2 Vancomycin 1 Gm 08/02/2025 02:26:11 SUMMARY OF HEMODYNAMIC DATA Time AIR REST ECG 01:36:46 AO 85/43 (58) SA 01:56:04 LV 140/5, 19 02:01:47 LV 135/1, 23 02:01:56 LVp 96/9, 17 02:06:32 AOp 99/53 (72) 02:06:39 Signed By Shira Beckwith MD On 08/02/2025 03:17:30 Shira Beckwith MD
[2025-08-02 03:49] LABS: Hematocrit 40.9 % (37-47); Hemoglobin 13.5 g/dL (12.0-15.0); Mean Corp Hgb Conc 33.0 g/dL (32-36); Mean Corpuscular Volume 92.5 fL (81-99); Mean Platelet Vol. 10.1 fl (6.2-12.0); Platelet Count 217 K/mm3 (150-450); RBC Distribution Width CV 16.8 % (11.6-14.6); RBC Distribution Width SD 57.3 fl (35.1-43.9); Red Blood Count 4.42 M/mm3 (4.2-5.4); White Blood Count 20.9 K/mm3 (4.4-11.0)
[2025-08-02] MEDS: Vancomycin HCl 1,750 MG in 0.9% Normal Saline (500mL Bag) 500 ML 250 MG IV (04:04)
[2025-08-02] MEDS: Aztreonam 1 GM 1 GM in 0.9% Normal Saline (50mL MB+) 50 ML IV (04:09)
[2025-08-02] MEDS: Nitroglycerin Oint 1 INCH PACKET TD (04:10)
[2025-08-02 04:27] LABS: Anion Gap 13 (5-15); BUN 32 mg/dL (4-19); BUN/Creat Ratio 28.0 RATIO (10-20); Calcium,Total 8.9 mg/dL (7.6-11.0); Carbon Dioxide 23.7 mmol/L (21.0-32.0); Chloride 104 mmol/L (98-108); Estimated Creatinine Clearance 46.16 ml/min (50-250); Glucose 139 mg/dL (70-99); Potassium 3.9 mmol/L (3.3-5.1)
--- NOTE | 2025-08-02 04:48 | PCM.RX.CS ---
Consult Antibiotic Management Pharmacy has been consulted to manage selected antibiotic: Vancomycin Type of Intervention Type of Consult: New start Labs Labs: Sodium 140 mmol/L (133-145) 08/02/25 03:15 Potassium 3.9 mmol/L (3.3-5.1) 08/02/25 03:15 Chloride 104 mmol/L (98-108) 08/02/25 03:15 Carbon Dioxide 23.7 mmol/L (21.0-32.0) 08/02/25 03:15 Anion Gap 13 (5-15) 08/02/25 03:15 BUN 32 mg/dL (4-19) H 08/02/25 03:15 Creatinine 1.15 mg/dL (0.70-1.20) 08/02/25 03:15 Est GFR (MDRD) Non-Af 52 (>60) L 08/02/25 03:15 BUN/Creatinine Ratio 28.0 RATIO (10-20) H 08/02/25 03:15 Glucose 139 mg/dL (70-99) H 08/02/25 03:15 Microbiology Microbiology: Microbiology 08/01/25 23:15 Mucosa - Nose SARS-CoV-2, Influenza & RSV (PCR) - Final Dosing Weight Weight used for dosin.5 kg Estimated Creatinine Clearance Estimated Creatinine Clearance: 46 Goal Trough Goal Trough: 15-20 mcg/mL Pharmacy Plan for Drug Dosing Pharmacy Plan for Drug Dosing: Pharmacy Service will continue to monitor and adjust dosing as required. Follow-Up Labs Follow-Up Labs: Trough: Vancomycin Date/Time Labs Ordered Labs to be done on [date and time ordered]: 08/03/25 @1308
[2025-08-02] MEDS: 0.9% Normal Saline (500mL Bag) 500 ML IV (04:54)
[2025-08-02] MEDS: 0.9% Normal Saline (1000mL) 1,000 ML 100 ML IV (06:05)
--- NOTE | 2025-08-02 07:28 | PCM.PN.HOSP ---
Reason for Visit Chief Complaint: SOB. Objective Data Objective Data Vital Signs: Vital Signs Temp Pulse Resp BP Pulse Ox O2 Del Method O2 Flow Rate 98.5 F 74 15 98/49 L 99 Nasal Cannula 2 08/02/25 04:00 08/02/25 04:00 08/02/25 04:00 08/02/25 04:00 08/02/25 04:00 08/02/25 04:00 08/02/25 04:00 FiO2 35 08/02/25 01:25 Oxygen Flow Rate (L/min) 2 Oxygen Delivery Method Nasal Cannula Weight: 152 lb Body Mass Index (BMI) 23.8 Intake & Output: Intake and Output for Last 24 Hours 07/31/25 08/01/25 08/02/25 23:59 23:59 23:59 Intake Total 1152.37 / 1152.37 Output Total 450 / 450 Balance 702.37 / 702.37 Lab / Micro Data 08/02/25 03:15 08/02/25 03:15 Labs: Laboratory Results - last 24 hr 08/01/25 22:48: WBC 19.8 H, RBC 4.84, Hgb 14.9, Hct 47.3 H, MCV 97.7, MCH 30.8, MCHC 31.5 L, RDW Std Deviation 60.2 H, RDW Coeff of Gerber 16.9 H, Plt Count 240, MPV 10.5, Immature Gran % (Auto) 0.600, Neut % (Auto) 44.5 L, Lymph % (Auto) 45.7 H, [place] % (Auto) 5.4, Eos % (Auto) 2.7, Baso % (Auto) 1.1 H, Absolute Neuts (auto) 8.8 H, Absolute Lymphs (auto) 9.07 H, Nucleated RBC % 0, Differential Comment SCANNED, PT 13.8, INR 1.0, APTT 28.3, Sodium 140, Potassium 3.7, Chloride 100, Carbon Dioxide 18.1 L, Anion Gap 22 H, BUN 29 H, Creatinine 1.30 H, Estim Creat Clear Calc 40.84 L, Est GFR (MDRD) Non-Af 45 L, BUN/Creatinine Ratio 22.2 H, Glucose 296 H, Lactic Acid 6.5 H*, Calcium 9.5, Magnesium 2.8 H, NT pro BNP II 288 08/02/25 00:45: Urine Color Yellow, Urine Clarity Clear, Urine pH 6.5, Ur Specific [place] 1.010, Urine Protein 30 H, Urine Glucose (UA) Normal, Urine Ketones Negative, Urine Occult Blood 150 H, Urine Nitrite Negative, Urine Bilirubin Negative, Urine Urobilinogen Normal, Ur Leukocyte Esterase Negative, Urine RBC 5-10 SEEN, Urine WBC 0 SEEN, Ur Squamous Epith Cells 0-5 SEEN, Urine Bacteria 0 SEEN, Urine Mucus 0 SEEN 08/02/25 01:11: Activated Clotting Time 181 H 08/02/25 03:15: WBC 20.9 H, RBC 4.42, Hgb 13.5, Hct 40.9, MCV 92.5 D, MCH 30.5, MCHC 33.0, RDW Std Deviation 57.3 H, RDW Coeff of [place] 16.8 H, Plt Count 217, MPV 10.1, Sodium 140, Potassium 3.9, Chloride 104, Carbon Dioxide 23.7, Anion Gap 13, BUN 32 H, Creatinine 1.15, Estim Creat Clear Calc 46.16 L, Est GFR (MDRD) Non-Af 52 L, BUN/Creatinine Ratio 28.0 H, Glucose 139 H, Lactic Acid Cancelled 08/02/25 03:15: Lactic Acid 1.5, Calcium 8.9 Micro: Microbiology 08/01/25 23:15 Mucosa - Nose SARS-CoV-2, Influenza & RSV (PCR) - Final ABG Data ABG results: ABG 08/01/25 08/02/25 22:56 01:59 Specimen Type ART ART Sample Site R Radial R Fem pH 7.07 L* 7.43 Bicarbonate Actual 17.6 L 24.7 Total CO2 20 26 Base Excess -13 L 0 O2 Saturation 99 97 O2 % 100.0 35.0 ABG pCO2 61.3 H 37.1 ABG pO2 170 H 84 Kel Test N/A Positive Respiration Rate 16 O2 Delivery Device NRB BiPAP Vent Mode Not entered Not entered Crit Call To/Read Back Yes Blood Gas Notified Whom Dr Will Blood Gas Notified Time 22:58:44 Clinical Comments 08/06 16 35% Radiography Diagnostic Testing: Radiology Impression Chest X-Ray 08/01/25 22:42 IMPRESSION: Bilateral lower lung zone hazy airspace opacities, likely pneumonia. Background of moderate-advanced chronic interstitial emphysematous lung changes. Reading Location: [id number] Assessment & Plan Assessment/Plan (1) Flash pulmonary edema: (2) Acute respiratory failure with hypoxia and hypercapnia: (3) Abnormal EKG: (4) Sepsis: QUALIFIERS: Sepsis type: sepsis due to unspecified organism Sepsis acute organ dysfunction status: with acute organ dysfunction Severe sepsis acute organ dysfunction type: acute respiratory failure Acute respiratory failure type: unspecified Severe sepsis shock status: with septic shock Qualified Code(s): A41.9 - Sepsis, unspecified organism; R65.21 - Severe sepsis with septic shock; J96.00 - Acute respiratory failure, unspecified whether with hypoxia or hypercapnia (5) Leukocytosis: QUALIFIERS: Leukocytosis type: unspecified Qualified Code(s): D72.829 - Elevated white blood cell count, unspecified (6) Lactic acidosis: (7) Pneumonia: QUALIFIERS: Pneumonia type: due to unspecified organism Laterality: bilateral Lung location: unspecified part of lung Qualified Code(s): J18.9 - Pneumonia, unspecified organism (8) Adverse drug reaction: QUALIFIERS: Encounter type: initial encounter Qualified Code(s): T50.905A - Adverse effect of unspecified drugs, medicaments and biological substances, initial encounter (9) Severe mitral valve regurgitation: (10) COPD (chronic obstructive pulmonary disease): QUALIFIERS: COPD type: unspecified COPD Qualified Code(s): J44.9 - Chronic obstructive pulmonary disease, unspecified PLAN: Plan 65-year-old female was admitted with chief complaint of shortness of breath with history of chronic HF, CAD and MR with feeling well prior to this event. She was admitted few months ago for HF exacerbation requiring intubation/ventilator. 1. Flash Pulmonary Edema with Acute Hypoxic/Hypercapnic Respiratory Failure requiring BiPAP with CODE STEMI called in ER with subsequent LHC that revealed no flow-limiting ischemia - Admit to ICU. Patient already weaned off BiPAP onto 4L NC. Repeat ABG revealed pH 7.43/ pCO2 37.1 mmHg/ PO2 84 mmHg/ HCO3 24.7 mmol/L on BiPAP 16/8 with 35% FiO2. 2. Leukocytosis of 19.8 K with Lactic Acidosis of 6.5 mmol/L were both present on admission with a corresponding CXR that revealed bilateral lower lung zone hazy airspace opacities, likely Pneumonia with a background of moderate-advanced chronic interstitial emphysematous lung changes with an overall clinical presentation concerning for Sepsis complicating #1 - Initiate therapy with empiric IV vancomycin and IV aztreonam and await culture & sensitivity data. Recheck lactate to follow trend. We will bolus with 500cc NS only given her severe mitral valve disease with persistent hypotension still on norepinephrine drip. Give acetaminophen prn for pain or fever. 3. Adverse Drug Reaction to multiple antihypertensive agents resulting in profound hypotension that required treatment with IV norepinephrine drip compounding #1 & #2 - Wean norepinephrine drip as tolerated. 4. History of severe mitral valve regurgitation with prolapse followed by family service assistant at [facility] adding to the medical complexity of #1- #3 - Technical Business Systems Analyst on-call has reached out to [facility] to help expedite transfer with help greatly appreciated. Transfer should be pending for the site leader of August 02, 2025. 08/02: Patient had cardiac cath today which showed 70% mid LAD, 90% ostial jailed D1, 70% proximal LCx, 80% proximal OM 2, 80% mid RCA. LVEF 65% severe, grade 4 MR. LVEF 65%. Technical Business Systems Analyst recommended surgical consultation for valve repair and coronary revascularization. 5. History of CAD; s/p non-ST elevation WI with subsequent stent to LAD and LCx (February 04, 2025) on baby aspirin daily plus as needed SL NTG adding to the burden of disease outlined from #1 - #4 - Noted. 6. History of chronic diastolic CHF; with preserved LVEF of ~65%, moderate papillary muscle dysfunction of the mitral valve and moderately-severe (3+) anteriorly directed mitral valve insufficiency - Noted with normal-range NT pro-BNP II of 288 pg/mL present on admission arguing against superimposed CHF exacerbation. 7. Former tobacco abuse; greater than ~30 pack years with subsequent COPD plus [place]RI[place]; on CPAP - Stable with no evidence of acute flare at this time so IV methylprednisolone was not given. 8. Essential hypertension; on carvedilol twice daily plus furosemide - Hold scheduled antihypertensives at this time in light of patient still requiring norepinephrine drip IV to treat hypotension. 9. Hyperlipidemia; on atorvastatin - Resume statin and check Lipid Profile. 10. RICHARD; on ferrous sulfate - Stable with hemoglobin of 14.9 g/dL and MCV of 97.7 fL present on admission. 11. History of GI bleed; s/p colonoscopy - Noted with no evidence of recurrence at this time. 12. History of hematuria - Noted with no complaints of hematuria at this time. 13. History of UTI - Noted with UA negative for infection this admission. 14. GERD; on pantoprazole - Resume PPI. 15. OA - Stable. We will give acetaminophen prn for pain or fever as outlined in #2. 16. DVT prophylaxis - Patient was initiated on IV heparin for #1. Total time: Approximately (but not less than) 75 minutes.
--- NOTE | 2025-08-02 07:48 | CON.PCM.CC_ITS ---
HPI Consult Data
--- NOTE | 2025-08-02 07:48 | EX.PCM.CONCC ---
HPI Consult Data Date of Consult: 08/02/25 HPI Narrative HPI Narrative: MIGUEL MATHIAS, is a 65 F who presents [ ] [facility] Medical History (Updated 08/02/25 @ 06:[address] Meir Will DO) Mitral valve insufficiency Anemia GERD (gastroesophageal reflux disease) Smoker CPAP (continuous positive airway pressure) dependence Non-ST elevation [place] (NSTEMI) Hematuria UTI (urinary tract infection) Hyperlipidemia Atherosclerosis of coronary artery of [place] heart without angina pectoris Myocardial infarct Home Medications ?Medication ?Instructions ?Recorded ?Last Taken ?Type aspirin 81 mg tablet,delayed 81 mg PO DAILY@0800 heart health 10/11/24 02/18/25 Rx release 90 days #90 tabs atorvastatin 40 mg tablet 40 mg PO QHS cholesterol 90 days 10/26/24 02/17/25 Rx #90 tabs albuterol sulfate 90 mcg/actuation 2 puff inhalation Q4H PRN PRN 02/06/25 Unknown Rx aerosol inhaler (Ventolin HFA) Wheezing ##1 nitroglycerin 0.4 mg sublingual 0.4 mg sublingual Q5-15M PRN chest 02/07/25 Unknown Rx tablet pain #25 tabs pantoprazole 40 mg tablet,delayed 40 mg PO DAILY reflux #90 tabs 02/22/25 Unknown Rx release (Protonix) ondansetron 4 mg disintegrating 4 mg PO Q6H PRN PRN Nausea 04/30/25 Unknown History tablet carvedilol 3.125 mg tablet 3.125 mg PO BIDCM 30 days #60 tabs 06/25/25 Unknown Rx ferrous sulfate 325 mg (65 mg 325 mg PO 1200,1700 30 days #60 06/25/25 Unknown Rx iron) tablet (FeroSul) tabs furosemide 40 mg tablet (Lasix) 40 mg PO QAM #30 tabs 06/25/25 Unknown Rx Allergy/AdvReac Type Severity Reaction Status Date / Time Penicillins Allergy Hives Verified 06/25/25 09:31 Sulfa (Sulfonamide AdvReac Diarrhea Verified 06/25/25 09:31 Antibiotics) Family History Father CAD (coronary artery disease) CABG age 68; CVA (cerebral vascular accident) Myocardial infarction Mother Cancer Cervical, Melanoma, Colon Surgical History (Updated 08/02/25 @ 04:[address] Josh Murry, DO) History of coronary artery stent placement (02/04/25) H/O colonoscopy Status post cardiac surgery History of coronary artery stent placement History of carpal tunnel surgery of left wrist Social History household members: spouse housing: house Smoking Status: Current every day smoker tobacco type: cigarettes Tobacco: How many years used: 30 second hand exposure: No alcohol intake: never Lab / Micro Data 08/02/25 03:15 08/02/25 03:15 Labs: Laboratory Results - last 24 hr 08/01/25 22:48: WBC 19.8 H, RBC 4.84, Hgb 14.9, Hct 47.3 H, MCV 97.7, MCH 30.8, MCHC 31.5 L, RDW Std Deviation 60.2 H, RDW Coeff of Gerber 16.9 H, Plt Count 240, MPV 10.5, Immature Gran % (Auto) 0.600, Neut % (Auto) 44.5 L, Lymph % (Auto) 45.7 H, [place] % (Auto) 5.4, Eos % (Auto) 2.7, Baso % (Auto) 1.1 H, Absolute Neuts (auto) 8.8 H, Absolute Lymphs (auto) 9.07 H, Nucleated RBC % 0, Differential Comment SCANNED, PT 13.8, INR 1.0, APTT 28.3, Sodium 140, Potassium 3.7, Chloride 100, Carbon Dioxide 18.1 L, Anion Gap 22 H, BUN 29 H, Creatinine 1.30 H, Estim Creat Clear Calc 40.84 L, Est GFR (MDRD) Non-Af 45 L, BUN/Creatinine Ratio 22.2 H, Glucose 296 H, Lactic Acid 6.5 H*, Calcium 9.5, Magnesium 2.8 H, NT pro BNP II 288 08/02/25 00:45: Urine Color Yellow, Urine Clarity Clear, Urine pH 6.5, Ur Specific [place] 1.010, Urine Protein 30 H, Urine Glucose (UA) Normal, Urine Ketones Negative, Urine Occult Blood 150 H, Urine Nitrite Negative, Urine Bilirubin Negative, Urine Urobilinogen Normal, Ur Leukocyte Esterase Negative, Urine RBC 5-10 SEEN, Urine WBC 0 SEEN, Ur Squamous Epith Cells 0-5 SEEN, Urine Bacteria 0 SEEN, Urine Mucus 0 SEEN 08/02/25 01:11: Activated Clotting Time 181 H 08/02/25 03:15: WBC 20.9 H, RBC 4.42, Hgb 13.5, Hct 40.9, MCV 92.5 D, MCH 30.5, MCHC 33.0, RDW Std Deviation 57.3 H, RDW Coeff of Gerber 16.8 H, Plt Count 217, MPV 10.1, Sodium 140, Potassium 3.9, Chloride 104, Carbon Dioxide 23.7, Anion Gap 13, BUN 32 H, Creatinine 1.15, Estim Creat Clear Calc 46.16 L, Est GFR (MDRD) Non-Af 52 L, BUN/Creatinine Ratio 28.0 H, Glucose 139 H, Lactic Acid Cancelled 08/02/25 03:15: Lactic Acid 1.5, Calcium 8.9 Micro: Microbiology 08/01/25 23:15 Mucosa - Nose SARS-CoV-2, Influenza & RSV (PCR) - Final ABG Data ABG results: ABG 08/01/25 08/02/25 22:56 01:59 Specimen Type ART ART Sample Site R Radial R Fem pH 7.07 L* 7.43 Bicarbonate Actual 17.6 L 24.7 Total CO2 20 26 Base Excess -13 L 0 O2 Saturation 99 97 O2 % 100.0 35.0 ABG pCO2 61.3 H 37.1 ABG pO2 170 H 84 Kel Test N/A Positive Respiration Rate 16 O2 Delivery Device NRB BiPAP Vent Mode Not entered Not entered Crit Call To/Read Back Yes Blood Gas Notified Whom Dr Will Blood Gas Notified Time 22:58:44 Clinical Comments 08/06 16 35% Imaging Radiology Impression Chest X-Ray 08/01/25 22:42 IMPRESSION: Bilateral lower lung zone hazy airspace opacities, likely pneumonia. Background of moderate-advanced chronic interstitial emphysematous lung changes. Reading Location: [id number]
--- NOTE | 2025-08-02 07:52 | NURSING ---
Transport here to take patient to [place] [facility] report given all questions answered.
--- NOTE | 2025-08-02 12:06 | PCM.DC.SUM ---
Providers Date of Admission: 08/02/25 Date of Discharge: 08/02/25 Primary Care Physician: Dr. Florin Bailey, DO Consultations 08/02/25 03:05 Consult: Automotive Light Mechanic / Pulmonary Medicine Routine Consulting Provider: Intensivists/Pulmonary Med Reason for Consult: Respiratory failure EMERGENT Consult: No MD Notified: Yes Date Notified: 08/02/25 Time Notified: 05:40 Method of Notification: Text Reason For Visit: STEMI Diagnosis Discharge Diagnosis (1) Flash pulmonary edema: Status: Acute Code(s): J81.0 - Acute pulmonary edema (2) Acute respiratory failure with hypoxia and hypercapnia: Status: Acute Code(s): J96.01 - Acute respiratory failure with hypoxia; J96.02 - Acute respiratory failure with hypercapnia (3) Abnormal EKG: Status: Acute Code(s): R94.31 - Abnormal electrocardiogram [ECG] [EKG] (4) Sepsis: Status: Acute Code(s): A41.9 - Sepsis, unspecified organism Qualifiers: Sepsis type: sepsis due to unspecified organism Sepsis acute organ dysfunction status: with acute organ dysfunction Severe sepsis acute organ dysfunction type: acute respiratory failure Acute respiratory failure type: unspecified Severe sepsis shock status: with septic shock Qualified Code(s): A41.9 - Sepsis, unspecified organism; R65.21 - Severe sepsis with septic shock; J96.00 - Acute respiratory failure, unspecified whether with hypoxia or hypercapnia (5) Leukocytosis: Status: Acute Code(s): D72.829 - Elevated white blood cell count, unspecified Qualifiers: Leukocytosis type: unspecified Qualified Code(s): D72.829 - Elevated white blood cell count, unspecified (6) Lactic acidosis: Status: Acute Code(s): E87.20 - Acidosis, unspecified (7) Pneumonia: Status: Acute Code(s): J18.9 - Pneumonia, unspecified organism Qualifiers: Pneumonia type: due to unspecified organism Laterality: bilateral Lung location: unspecified part of lung Qualified Code(s): J18.9 - Pneumonia, unspecified organism (8) Adverse drug reaction: Status: Acute Code(s): T50.905A - Adverse effect of unspecified drugs, medicaments and biological substances, initial encounter Qualifiers: Encounter type: initial encounter Qualified Code(s): T50.905A - Adverse effect of unspecified drugs, medicaments and biological substances, initial encounter (9) Severe mitral valve regurgitation: Status: Acute Code(s): I34.0 - Nonrheumatic mitral (valve) insufficiency (10) COPD (chronic obstructive pulmonary disease): Status: Chronic Code(s): J44.9 - Chronic obstructive pulmonary disease, unspecified Qualifiers: COPD type: unspecified COPD Qualified Code(s): J44.9 - Chronic obstructive pulmonary disease, unspecified Plan 65-year-old female was admitted with chief complaint of shortness of breath with history of chronic HF, CAD and MR with feeling well prior to this event. She was admitted few months ago for HF exacerbation requiring intubation/ventilator. Patient was transferred before even I can see her. She left about change of shift. The information level is from chart review. 1. Flash Pulmonary Edema with Acute Hypoxic/Hypercapnic Respiratory Failure requiring BiPAP with CODE STEMI called in ER with subsequent LHC that revealed no flow-limiting ischemia -patient was admitted to ICU. Patient already weaned off BiPAP onto 4L NC. Repeat ABG revealed pH 7.43/ pCO2 37.1 mmHg/ PO2 84 mmHg/ HCO3 24.7 mmol/L on BiPAP 16/8 with 35% FiO2. As mentioned per cath report, multiple vessel disease and evaluation for coronary revascularization. 2. Concern of sepsis with leukocytosis of 19.8 K with Lactic Acidosis of 6.5 mmol/L were both present on admission with a corresponding CXR that revealed bilateral lower lung zone hazy airspace opacities, likely Pneumonia with concerning for sepsis: Restricted IV fluid because of pulmonary edema. On broad-spectrum antibiotic as per H&P. Patient was transferred before I can see and definite evaluation of sepsis or rule out sepsis can be made. She did not require Levophed 3. Profound hypotension probably due to antihypertensive agent and flash pulmonary edema, probably cardiac in origin 4. History of severe mitral valve regurgitation with prolapse followed by bmx rider at [facility] adding to the medical complexity of #1- #3 - Quality Assurance Intern on-call has reached out to [facility] to help expedite transfer with help greatly appreciated. Transfer should be pending for the senior application software engineer of August 02, 2025. 08/02: Patient had cardiac cath today which showed 70% mid LAD, 90% ostial jailed D1, 70% proximal LCx, 80% proximal OM 2, 80% mid RCA. LVEF 65% severe, grade 4 MR. LVEF 65%. Quality Assurance Intern recommended surgical consultation for valve repair and coronary revascularization. 5. History of CAD; s/p non-ST elevation NH with subsequent stent to LAD and LCx (February 04, 2025) on baby aspirin daily plus as needed SL NTG adding to the burden of disease outlined from #1 - #4 - Noted. 6. History of chronic diastolic CHF; with preserved LVEF of ~65%, moderate papillary muscle dysfunction of the mitral valve and moderately-severe (3+) anteriorly directed mitral valve insufficiency - Noted with normal-range NT pro-BNP II of 288 pg/mL present on admission arguing against superimposed CHF exacerbation. 7. Former tobacco abuse; greater than ~30 pack years with subsequent COPD plus ANDRIA; on CPAP -no evidence of acute COPD exacerbation 8. Essential hypertension; on carvedilol twice daily plus furosemide - Hold scheduled antihypertensives at this time in light of patient still requiring norepinephrine drip IV to treat hypotension. 9. Hyperlipidemia; on atorvastatin - Resume statin and check Lipid Profile. 10. Chronic RICHARD; on ferrous sulfate - hemoglobin of 14.9 g/dL and MCV of 97.7 fL present on admission. Repeat H&H 13.5/40.9%. 11. History of GI bleed; s/p colonoscopy - Noted with no evidence of recurrence at this time. GERD; on pantoprazole - Resume PPI. DVT prophylaxis - Patient was initiated on IV heparin Patient transferred to [facility] in hemodynamically state as per nursing report and review of vitals on an emergency basis Medications at Discharge Home Medications aspirin 81 mg tablet,delayed release 81 mg PO DAILY@0800 heart health 90 days #90 tabs 10/11/24 atorvastatin 40 mg tablet 40 mg PO QHS cholesterol 90 days #90 tabs 10/26/24 albuterol sulfate 90 mcg/actuation aerosol inhaler (Ventolin HFA) 2 puff inhalation Q4H PRN PRN Wheezing ##1 02/06/25 nitroglycerin 0.4 mg sublingual tablet 0.4 mg sublingual Q5-15M PRN chest pain #25 tabs 02/07/25 pantoprazole 40 mg tablet,delayed release (Protonix) 40 mg PO DAILY reflux #90 tabs 02/22/25 ondansetron 4 mg disintegrating tablet 4 mg PO Q6H PRN PRN Nausea 04/30/25 carvedilol 3.125 mg tablet 3.125 mg PO BIDCM 30 days #60 tabs 06/25/25 ferrous sulfate 325 mg (65 mg iron) tablet (FeroSul) 325 mg PO 1200,1700 30 days #60 tabs 06/25/25 furosemide 40 mg tablet (Lasix) 40 mg PO QAM #30 tabs 06/25/25 Physical Exam Narrative Patient was not seen and examined left before I can see her as a transfer was emergent and imminent. Please see H&P for detail. Weight / BMI Weight Weight: 152 lb Body Mass Index (BMI) 23.8 ABG / Lab / Microbiology Data 08/02/25 03:15 08/02/25 03:15 Laboratory: Laboratory Results - last 24 hr 08/01/25 22:48: WBC 19.8 H, RBC 4.84, Hgb 14.9, Hct 47.3 H, MCV 97.7, MCH 30.8, MCHC 31.5 L, RDW Std Deviation 60.2 H, RDW Coeff of Gerber 16.9 H, Plt Count 240, MPV 10.5, Immature Gran % (Auto) 0.600, Neut % (Auto) 44.5 L, Lymph % (Auto) 45.7 H, [place] % (Auto) 5.4, Eos % (Auto) 2.7, Baso % (Auto) 1.1 H, Absolute Neuts (auto) 8.8 H, Absolute Lymphs (auto) 9.07 H, Nucleated RBC % 0, Differential Comment SCANNED, PT 13.8, INR 1.0, APTT 28.3, Sodium 140, Potassium 3.7, Chloride 100, Carbon Dioxide 18.1 L, Anion Gap 22 H, BUN 29 H, Creatinine 1.30 H, Estim Creat Clear Calc 40.84 L, Est GFR (MDRD) Non-Af 45 L, BUN/Creatinine Ratio 22.2 H, Glucose 296 H, Lactic Acid 6.5 H*, Calcium 9.5, Magnesium 2.8 H, NT pro BNP II 288 08/02/25 00:45: Urine Color Yellow, Urine Clarity Clear, Urine pH 6.5, Ur Specific [place] 1.010, Urine Protein 30 H, Urine Glucose (UA) Normal, Urine Ketones Negative, Urine Occult Blood 150 H, Urine Nitrite Negative, Urine Bilirubin Negative, Urine Urobilinogen Normal, Ur Leukocyte Esterase Negative, Urine RBC 5-10 SEEN, Urine WBC 0 SEEN, Ur Squamous Epith Cells 0-5 SEEN, Urine Bacteria 0 SEEN, Urine Mucus 0 SEEN 08/02/25 01:11: Activated Clotting Time 181 H 08/02/25 03:15: WBC 20.9 H, RBC 4.42, Hgb 13.5, Hct 40.9, MCV 92.5 D, MCH 30.5, MCHC 33.0, RDW Std Deviation 57.3 H, RDW Coeff of Gerber 16.8 H, Plt Count 217, MPV 10.1, Sodium 140, Potassium 3.9, Chloride 104, Carbon Dioxide 23.7, Anion Gap 13, BUN 32 H, Creatinine 1.15, Estim Creat Clear Calc 46.16 L, Est GFR (MDRD) Non-Af 52 L, BUN/Creatinine Ratio 28.0 H, Glucose 139 H, Lactic Acid Cancelled 08/02/25 03:15: Lactic Acid 1.5, Calcium 8.9 Microbiology: Microbiology 08/01/25 23:15 Mucosa - Nose SARS-CoV-2, Influenza & RSV (PCR) - Final ABG: ABG 08/01/25 08/02/25 22:56 01:59 Specimen Type ART ART Sample Site R Radial R Fem pH 7.07 L* 7.43 Bicarbonate Actual 17.6 L 24.7 Total CO2 20 26 Base Excess -13 L 0 O2 Saturation 99 97 O2 % 100.0 35.0 ABG pCO2 61.3 H 37.1 ABG pO2 170 H 84 Kel Test N/A Positive Respiration Rate 16 O2 Delivery Device NRB BiPAP Vent Mode Not entered Not entered Crit Call To/Read Back Yes Blood Gas Notified Whom Dr Will Blood Gas Notified Time 22:58:44 Clinical Comments 08/06 16 35% Radiography Diagnostic Testing: Radiology Impression Chest X-Ray 08/01/25 22:42 IMPRESSION: Bilateral lower lung zone hazy airspace opacities, likely pneumonia. Background of moderate-advanced chronic interstitial emphysematous lung changes. Reading Location: [id number] D/C Instructions DC O2, CPAP, BIPAP Needs Home O2 Discharge instructions: No Meaningful Use Info Meaningful Use Meaningful Use Diagnoses (Choose all that apply): None applicable Discharge Plan Admission Admit Date/Time: 08/02/25 07:00 Attending Provider: Wander Sy Primary Care Provider: Florin Bailey Consulting Providers: Latrell Rodriguez; Rocky Palumbo; Rajesh Ureña; Tab Murrieta; Josh Garcia; Bonnie Key; Vinh Gonzales; Irasema Allen; Mitch Trejo; Xenia Gunn; Cameron Jacobs; Flo Hernandes; Francisco Pat; Meir Fuchs; Rosanna Cantu; Joan Langley; Roberto Santiago; Sergo Moreno; Grayson Huston; Leanna Duran; Reva Marcum; Ernesto Machado; Davidson Polanco; Louis Nelson; Fernie Persaud; Kylee Horne; Colin Juan; Yovana Mosquera; Kunal Laboy; Miles Way; Marie Britt; James Pineda; Josh Murry Discharge Orders/Prescriptions Prescriptions: No Action atorvastatin 40 mg tablet 40 mg PO QHS 90 Days Qty: 90 3RF ondansetron 4 mg tablet,disintegrating 4 mg PO Q6H PRN PRN (Reason: Nausea) carvedilol 3.125 mg tablet 3.125 mg PO BIDCM 30 Days Qty: 60 11RF ferrous sulfate [FeroSul] 325 mg (65 mg iron) tablet 325 mg PO 1200,1700 30 Days Qty: 60 11RF furosemide [Lasix] 40 mg tablet 40 mg PO QAM Qty: 30 11RF nitroglycerin 0.4 mg tablet, sublingual 0.4 mg sublingual Q5-15M PRN (Reason: chest pain) Qty: 25 3RF Rx Instructions: do not exceed 3 doses per episode aspirin 81 mg Tablet,Delayed Release (Dr/Ec) 81 mg PO DAILY@0800 90 Days Qty: 90 3RF albuterol sulfate [Ventolin HFA] 90 mcg/actuation HFA aerosol inhaler 2 puff inhalation Q4H PRN PRN (Reason: Wheezing) Qty: 1 0RF Rx Instructions: with spacer pantoprazole [Protonix] 40 mg tablet,delayed release (DR/EC) 40 mg PO DAILY Qty: 90 0RF Referrals / Follow Up: Florin Bailey DO [Primary Care Provider, Medical] Disposition Disposition (needs filled in before D/C Order can be placed): Acute Care Hospital Charges/Coding Visit Charges Inpatient E&M: 24204 Disch Hosp
== END 2025-08-02 07:56 | disposition short-term general hospital (02) | DRG 871 ==
LOC: ED 08-02 00:56 → ICU 08-02 07:16
PROVIDERS: Admitting Provider Internal Medicine; Emergency Provider Emergency Medicine; Referring Provider Internal Medicine Cardiovascular Disease; Visit Provider Internal Medicine
DX: A41.9 Sepsis, unspecified organism (principal); J18.9 Pneumonia, unspecified organism; J96.02 Acute respiratory failure with hypercapnia; I21.3 ST elevation (STEMI) myocardial infarction of unspecified site; R65.21 Severe sepsis with septic shock; J96.01 Acute respiratory failure with hypoxia; J81.0 Acute pulmonary edema; E87.20 Acidosis, unspecified; J44.0 Chronic obstructive pulmonary disease with (acute) lower respiratory infection; I50.32 Chronic diastolic (congestive) heart failure; D50.9 Iron deficiency anemia, unspecified; F17.210 Nicotine dependence, cigarettes, uncomplicated; I11.0 Hypertensive heart disease with heart failure; I34.0 Nonrheumatic mitral (valve) insufficiency; G47.33 Obstructive sleep apnea (adult) (pediatric); K21.9 Gastro-esophageal reflux disease without esophagitis; M19.90 Unspecified osteoarthritis, unspecified site; E78.5 Hyperlipidemia, unspecified; I25.10 Atherosclerotic heart disease of native coronary artery without angina pectoris; I25.2 Old myocardial infarction; T46.5X5A Adverse effect of other antihypertensive drugs, initial encounter; Z95.5 Presence of coronary angioplasty implant and graft; Z79.82 Long term (current) use of aspirin; Z79.51 Long term (current) use of inhaled steroids; Z79.899 Other long term (current) drug therapy
CPT/HCPCS: 36600; 51702; 71045; 80048; 81001; 82803; 83605; 83735; 83880; 85025; 85027; 85347; 85610; 85730; 87040; 87631; 93005; 93458; 94002; 94003; 94660; 99285; C1760; C1894; Q9967; A4216; C1769; J1938

== ENCOUNTER → 2025-09-26 | Outpatient (CLI) | payer MEDICARE, SELFPAY ==
[2025-06-05 13:30] VITALS: BMI 24.7
--- NOTE | 2025-09-26 13:02 | PCM.CR.HP2 ---
CR - History & Physical General Arrival date:: 09/26/25 Arrival time:: 13:03 Date of Referral:: 09/09/25 Date of CR Evaluation:: 09/26/25 Referring Physician: Dr. Vázquez Primary Diagnosis: S/P CABG History of Present Cardiac Event Onset Date Coronary Artery Bypass Graft:: Yes Vessel: SVG to RCA and Mitral valve repair Heart valve replacement or repair:: Yes (Mitral valve repair 08/21/25) Medications Ambulatory Orders ?Medication ?Instructions ?Recorded aspirin 81 mg tablet,delayed 81 mg PO DAILY@0800 heart health 10/11/24 release 90 days #90 tabs atorvastatin 40 mg tablet 40 mg PO QHS cholesterol 90 days 10/26/24 #90 tabs albuterol sulfate 90 mcg/actuation 2 puff inhalation Q4H PRN PRN 02/06/25 aerosol inhaler (Ventolin HFA) Wheezing ##1 nitroglycerin 0.4 mg sublingual 0.4 mg sublingual Q5-15M PRN chest 02/07/25 tablet pain #25 tabs pantoprazole 40 mg tablet,delayed 40 mg PO DAILY reflux #90 tabs 02/22/25 release (Protonix) ondansetron 4 mg disintegrating 4 mg PO Q6H PRN PRN Nausea 04/30/25 tablet carvedilol 3.125 mg tablet 3.125 mg PO BIDCM 30 days #60 tabs 06/25/25 ferrous sulfate 325 mg (65 mg 325 mg PO 1200,1700 30 days #60 06/25/25 iron) tablet (FeroSul) tabs furosemide 40 mg tablet (Lasix) 40 mg PO QAM #30 tabs 06/25/25 Allergies Allergies Penicillins Allergy (Verified 06/25/25 09:31) Hives Sulfa (Sulfonamide Antibiotics) Adverse Reaction (Verified 06/25/25 09:31) Diarrhea Sleep Disorder Evaluation Hx of Sleep Apnea: Yes Do you snore loudly (louder than talking or can be heard through closed doors)?: No Do you often feel tired/ fatigued/ sleepy during daytime?: No Has anyone observed you stop breathing during sleep?: No History of Hypertension (for STOP score): No STOP Results: Negative Advanced Directives Advanced Directives Do you have a Healthcare Power of Energy Efficiency Engineer?: No Living Will: No Advance Directives Information Provided: No Advance Directives on File: No DNR Order?:: No Past Medical History Covid-19 Screening Physicial Symptoms Other Clinical Concerns Exposure Risk Pertinent Comorbidities 65 years or older:: Yes Has a serious heart condition:: Yes Past Medical Illness Past Medical History (Updated 08/10/25 @ 00:01 by Background Daemon) Severe mitral valve regurgitation I34.0 Mitral valve insufficiency I34.0 Anemia D64.9 GERD (gastroesophageal reflux disease) K21.9 Smoker F17.200 CPAP (continuous positive airway pressure) dependence Z99.89 Non-ST elevation [place] (NSTEMI) I21.4 Hematuria R31.9 UTI (urinary tract infection) N39.0 Hyperlipidemia E78.5 Atherosclerosis of coronary artery of [place] heart without angina pectoris I25.10 Myocardial infarct I21.9 Past Surgical History Past Surgical History (Updated 08/10/25 @ 00:01 by Background Daemon) History of coronary artery stent placement (02/04/25) Z95.5 2.75 x 18 mm ANTONIA FRONTIER FREDDIE to pLAD; PTCA alone to pD1 10/09/2024;[facility] [place] MR FREDDIE 2.5 x 40 mm to mLCx, PTCA alone to D1 02/04/2025 H/O colonoscopy Z98.890 To stop GI Bleed Status post cardiac surgery Z98.890 History of coronary artery stent placement Z95.5 History of carpal tunnel surgery of left wrist Z98.890 Family History Summary Family History Father CAD (coronary artery disease) CABG age 68; CVA (cerebral vascular accident) Myocardial infarction Mother Cancer Cervical, Melanoma, Colon Social History Smoking History Smoking Status: Former smoker Years Smokin (stopped Jul 24.) Packs Smoked per Day: 0.5 Alcohol Use Alcohol Usage: No Substance Abuse Hx Substance Use: No Occupation Occupation (List type of work in comments):: Retired Social Environment Status Marital Status: Current Living Arrangements Living Environment:: Spouse Children How many children do you have?: 2 Do any of your children live nearby?: Yes Safety Do you feel safe in your surroundings?: Yes Assistance Do you need any assistance at home?: no Review of Systems Review of Systems Hints Review of Present Symptoms: Reports Appetite - Normal, Appetite - Special Diet and Sleep - Normal; Denies Shortness of Breath at Rest, Shortness of Breath with Exertion, PVD, Operative Discomfort, Angina, Wound Healing, Dizziness/Lightheadedness, Fatigue, Heart Arrhythmia/Irregularities or Sexual Changes Pain Is Patient Pain Free?: Yes Risk Factor Assessment Chief Complaint Chief Complaint: s/p CABG Vital Signs Pulse Ox: 97 Blood Pressure: 114/60 Pulse Pulse Rate: 79 Hypertension Blood Pressure Sitting - Left Arm: 114/60 Obesity Height: 5 ft 7 in Weight:: 151 lb Weight in Pounds: 151.0 lbs Body Mass Index (BMI): 23.6 Risk Stratification Risk Guidelines: Moderate Risk: Risk Factor for Diabetes, Risk Factor for Obesity, Risk Factor for Sedentary Lifestyle and Risk Factor for Depression and Highest Risk: Risk Factor for Smoking, Risk Factor for Dyslipidemia and Risk Factor for Hypertension For Smoking Smoking Risk Guidelines For Dyslipidemia Dyslipidemia Risk Guidelines For Diabetes Mellitus Diabetes Risk Guidelines For Obesity/Overweight Obesity/Overweight Risk Guidelines For Hypertension Hypertension Risk Guidelines For Sedentary Lifestyle Sedentary Lifestyle Risk Guidelines For Depression Depression Risk Guidelines Family History Family History Father CAD (coronary artery disease) CABG age 68; CVA (cerebral vascular accident) Myocardial infarction Mother Cancer Cervical, Melanoma, Colon Motivation Motivation to Participate On a scale of 1 to 10, how prepared are you to commit to attending program?: 9 What do you see as barriers to successfully being able to complete the program?: nothing What do you see as the benefits of succesfully completing the program? In other words, what do you hope to get out of participating in the program?: resume activities sooner Are there issues you are dealing with that will interfere with completing the program?: no Do you have a spouse or signficant other, family or friends who will help support you to complete the program?: yes
--- NOTE | 2025-09-26 13:10 | PCM.CR.ITP ---
Diagnosis General Information Admitting Diagnosis: s/p CABG Personal Learning Style:: Audio/Visual Barriers to Learning: No Barriers Stage of change r/t lifestyle modifications:: Contemplation Gave educational material for:: Treating Heart Disease, How The Heart Works, What it means to have Heart Disease, How Coronary Artery Disease is Diagnosed, Heart Procedures, What Heart Medications Do, Risk Factors & Modifications, Living an Active Life, Nutrition, Emotions & Heart Disease, Stress Management & Relaxation and Sleep Disorders & Heart Disease Education/Goals Cardiac Rehabilitation Goals Personal Goals: Initial Assessment: Quit smoking (participate in smoking cessation, Improve energy level, Participate in home exercise program, Get back to work, or to resume activities faster, Improve muscle strength and endurance and Improve diet and eating habits (eat healthier) Scale for measuring improvement of personal goals Diagnosis & Disease Process Outcomes/Goals: Pt IDs own risk factors & lifestyle modifications by Session 10, Verbalizes symptoms of angina & response by session 3., Pt independently manages and Other Additional Outcomes/Goals: Plan/Interventions: Assist Pt to ID & engage in lifestyle modification to reduce CVD risk, Instruct on individual risk factors, Review symptoms of angina & emergency actions, Review secondary diagnosis & identify educational needs. and Other see comment 30 day Reassessments:: Not Met 30 day Reassessments:: Not Met 30 day Reassessments:: Not Met 30 day Reassessments:: Not Met Final Reassessments:: Not Met Safety Referral to Physical Therapy: No Referral to [facility] Case Management: No Fall Risk Assessed:: Yes Assistive Devices:: None Exercise - Initial Assessment Visit Date of Eval: 09/26/25 (initial eval) Mets: Pre-: >5 METS for 30 minutes by discharge Physician Prescribed Exercise Modalities: Treadmill, Schwinn Airdyne AD-7, SciFit Stepper, ComActivityFit Pro-II Ergometer and ComActivityFit Lateral [place] Frequency: 3x/week for 12 weeks [36 sessions] Intensity: 60-80% of age predicted maximum heart rate reserve Duration: 30 - 45 minutes Current METSs:: 3 Target Heart Rate:: 92-115 Resting Blood Pressure: 114/60 EKG Type: SR w/PAC's, bigeminy Outcomes & Goals Goals:: Verbalizes understanding of THR, RPE & goal METS by session 6, Documents in home exercise log/reports 30 min aerobic 5 day/wk by DC, Demonstrates accurate pulse taking by DC and Other additional outcome/goals: see below Intervention & Plan Exercise Program Goals: Instruct on personal THR & RPE, Instruct on MET level & personal MET goal, Show patient to take own pulse /validate performance until accurate, Instruct on home exercise and Other additional plan/int Physical Activity Home Exercise Physical Activity - Home Exercise: Safe Exercise, Warm-up, Self-monitoring, Cool-Down, Home Exercise > 30 min Daily and Sitting Time <3 hours/daily Outcomes & Goals Outcomes/Goals: Demonstrates correct Warm-up/exercise Cool-Down (S3) if = 2.5 METs, Verbalizes symptoms of exercise intolerance by Session 3 (S3), Demonstrate safe equipment use (S3) & follows exercise prescrition (6) and Other: See below Intervention & Plan Plan/Intervention: Instruct warm-up & cool-down if exercising at > 2 METs, Instruct on symptoms of exercise intolerance & actions to take, Instruct & monitor on saf, Assess intial functional capacity & safety risk and Other See below Nutrition - Initial Assessment Program Goals Nutrition Program Goals Patient has diagnosis of Hyperlipidemia (ICD E78)?: Yes Cholesterol/Lipids (Other Core Measures) Determine presence & major risk factors that modify LDL goal: Cigarette smoking, Hypertension or hypertensive medication, Low HDL cholesterol <40 mg/dL*, Family history of premature CHD in Male < 55 years: female <65 yearsFa and Age men > 45 years; women >/= 55 years Outcomes/Goals: Pt IDs own risk factors & lifestyle modifications by Session 10, Verbalizes symptoms of angina & response by session 3., Pt independently manages and Other Additional Outcomes/Goals: Intervention/Plan: Advocate for lipid panel cholesterol medication if applicable, Instruct on personal lipid levels & lipid goals/NCEP guidelines, Instruct on cholesterol and Other additional plan/int Referral to dietitian:: No (Declines, nutrition score of 2) Diabetes (Other Core Measures) Diabetes Type: Not Applicable Weight Mgt (Other Care) Height: 5 ft 7 in Weight:: 151 lb BMI: 23.6 Diagnosis Overweight/Obesity BMI> 30% ICD-10 E66: No Diagnosis High BMI/Morbid Obesity BMI> 35% ICD-10 Z68: No Outcomes/Goals: Pt sets, maintains & shows weight loss goal & trend during rehab and Other additional outcomes/goals Intervention/Plan: Instruct on ideal BMI & set weight loss goal w/patient, Assist pt to ID & incorporate diet changes for weight loss by S9, Refer to Structured Weight Loss program as appropriate, Encourage goal of using 250-300dcal per session for weight loss and Other additional plan/interventions Healthy Eating Habits Will attend diet classes:: Yes Outcomes/Goals:: Consume diet rich in vegs,fruits,whole grain/high fiber,fish,lean meat, Limit sat/trans fats,cholesterol & added salts & sugars and Other additional outcome/goals: Intervention/Plan:: Assess current eating habits and Other Additional plan/interventions Education Gave educational materials for:: Signs & symptoms of hypoglycemia, Signs & symptoms of hyperglycemia, Relate diabetes to coronary artery disease and Healthy eating Core - Initial Assessment Visit Date of Eval: 09/26/25 (initial eval) Medication Compliance Preventative Medication(s):: Aspirin and Statin/lipid H/O mental health issues: depression, anxiety, or addiction?: No Doesn?t believe in the benefits of treatment?: No Believes medications are unnecessary or harmful?: No Has a concern about medication side effects?: No Expresses concern over the cost of medications?: No Outcomes/Goals: Verbalizes medications,desired effect & common side effects @ DC, Pt self-reports following medication regimen, Keeps card in wallet w/medications listed by DC and Other additional outcome/goals: Interventions/plans: Instruct on medication effects & side effects, Review medication list w/patient every two weeks, Instruct importance of taking meds as ordered & assist problem solving and Other additional Tobacco Use Tobacco Use: Non-smoker How long ago did you quit using tobacco products?: Less than 6 months ago (stopped jul 24.) How many cigarettes do you smoke per day?: 10 Years Smokin Outcomes/Goals: Smoking cessation achieved or maintained by discharge, Identify aids/strategies for achieving smoking cessation by session 6 and Other additional outcome/goals Interventions/plan: Instruct on effects of smoking & provide smoking cessation resource, Assist pt to set quit date & provide encouragement, Assist pt to develop strategies to achieve/maintain quit date, Assist pt w/nicotine replacement & medication for cessation success and Other additional plan/interventions Hypertension Resting Blood Pressure:: 114/60 [place] [employer] Hypertension Guidelines Outcomes/Goals: Able to verbalize/achieve optimal blood pressure <130/80, Incorporates diet changes & exercise for blood pressure control by DC and Other additional outcomes/goals Interventions/plan: Instruct on optimal blood pressure, hypertension & medications, Instruct on effects of sodium, alcohol, stress, exercise &hypertension and Other additional plan/interventions Tobacco Cessation Referral Smoking Cessation Referral:: No Individual Education/Counseling:: No Education Schedule Given:: Yes Psychosocial - Initial Assess VIsit Date of Eval: 09/26/25 (initial eval) History of previous Mental disease:: No Psychosocial Test Tool Used:: [employer] QOL Cardiac and PHQ-9 Questionnaire phq-9 Severity See PHQ-9 Score: 1 Referral to Behavioral Health PS - Interventions: Yes: Attend Stress Management Classes Outcomes/Goals: See list Psychosocial Outcomes/Goals:: ID's personal stressors & 2 strategies to manage stress by discharge and Other Additional outcome/goals: Intervention/Plan: See List Interventions/Plan:: Assess stressors,coping strategies & signs of derpression on admission, Instruct/assist pt to develop coping & personal stress Mgt strategies, Refer to Behavioral Health if appropriate, Refer to Physician if appropriate, Instruct patient to recognize signs & symptoms of depression, Instruct patient to recog and Other additional plan/intervention Exercise - 30-day Assessment Physician Prescribed Exercise Modalities: Treadmill, Schwinn Airdyne AD-7, SciFit Stepper, SciFit Pro-II Ergometer and 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 Exercise - 60-day Assessment Physician Prescribed Exercise Modalities: Treadmill, Schwinn Airdyne AD-7, SciFit Stepper, SciFit Pro-II Ergometer and 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 Exercise - 90-day Assessment Physician Prescribed Exercise Modalities: Treadmill, Schwinn Airdyne AD-7, SciFit Stepper, SciFit Pro-II Ergometer and 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 Exercise - Final/Discharge Physician Prescribed Exercise Modalities: Treadmill, Schwinn Airdyne AD-7, SciFit Stepper, SciFit Pro-II Ergometer and SciFit Lateral [place] Frequency: 3x/week for 12 weeks [36 sessions] Intensity: 60-80% of age predicted maximum heart rate reserve Current METSs:: 3 Target Heart Rate:: 92-115 Nutrition - 30-Day Assessment Weight Mgt (Other Care) Height: 5 ft 7 in Weight:: 151 lb BMI: 23.6 Nutrition - 60-Day Assessment Weight Mgt (Other Care) Height: 5 ft 7 in Weight:: 151 lb BMI: 23.6 Core - 30-Day Assessment Tobacco Use Years Smokin Core - Final Assessment Hypertension Resting Blood Pressure:: 114/60 [place] [employer] Hypertension Guidelines Core - 60-Day Assessment Hypertension Resting Blood Pressure:: 114/60 [place] [employer] Hypertension Guidelines Psychosocial - 30-Day Assess Referral to Behavioral Health PS - Interventions: Yes: Attend Stress Management Classes Psychosocial - 60-Day Assess Referral to Behavioral Health PS - Interventions: Yes: Attend Stress Management Classes Psychosocial - 90-Day Assess Referral to Behavioral Health PS - Interventions: Yes: Attend Stress Management Classes Psychosocial - Final Assessmen Psychosocial Test phq-9 Severity See PHQ-9 Score: 1 Referral to Behavioral Health PS - Interventions: Yes: Attend Stress Management Classes Nutrition - 90-Day Assessment Weight Mgt (Other Care) Height: 5 ft 7 in Weight:: 151 lb BMI: 23.6 Nutrition - Final Assessment Program Goals Patient has diagnosis of Hyperlipidemia (ICD E78)?: Yes Weight Mgt (Other Care) Height: 5 ft 7 in Weight:: 151 lb BMI: 23.6
[2025-09-26 13:19] VITALS: BP 114/60; PULSE 79; O2SAT 97
[2025-09-26 13:40] VITALS: BP 114/60
[2025-09-26 13:46] VITALS: BP 114/60; BMI 23.6
== END | disposition home or self-care (01) ==
LOC: CR 12:54
PROVIDERS: Referring Provider Thoracic Surgery (Cardiothoracic Vascular Surgery); Visit Provider Thoracic Surgery (Cardiothoracic Vascular Surgery)
DX: Z95.1 Presence of aortocoronary bypass graft (principal)

== ENCOUNTER 2025-10-23 11:15 | Outpatient (RCR) | payer MEDICARE, SELFPAY ==
[2025-09-26 13:46] VITALS: BMI 23.6
== END 2025-10-23 23:59 ==
LOC: CR 11:15
PROVIDERS: Referring Provider Thoracic Surgery (Cardiothoracic Vascular Surgery); Visit Provider Thoracic Surgery (Cardiothoracic Vascular Surgery)
DX: Z95.1 Presence of aortocoronary bypass graft (principal)
CPT/HCPCS: 93798